=== PATIENT | female | born 1960 | race Caucasian/White ===

== ENCOUNTER 2016-11-22 15:49 | Emergency (ER) | payer MEDICARE, OTHER ==
[~2016-11-22] VITALS: Ht 170.2 cm; Wt 95.3 kg
[~2016-11-22 15:49] MED LIST: ACYC200C PO; ALPR0.5T7 PO; BUPR150T14 PO; CYCL10TA9 PO; DICL75TA2 PO; DICY20TA10 PO; FLUO20CA42 PO; HTN MED; HYDR-2962 PO; HYDR-3820 PO; HYDR-3857 PO; LEVO750T9 PO; LISI10TA PO; METO10TA3 PO; MTF500T PO; OMEP20CA12 PO; PRD20T PO; PREG75CA PO; RANI150T11 PO; RT-ALBUINH IH; SIMV40TA4 PO; SUMA25TA3; TRAM50TA2 PO; XANAX
--- NOTE | 2016-11-22 16:36 | ED Back Pain ---
General Chief Complaint: Back Problems Stated Complaint: BACK PAIN Nursing Triage Note: States she has chronic back issues for the last 30 years and is on disabilty for it. States her back "went out" 5 days ago and has severe pain. States she has tried to ice it and take icy hot. States her dr won't do anything. Sobbing and crying out Nursing Sepsis Screen: No Definite Risk Source of Information: Patient Exam Limitations: No Limitations History of Present Illness Time Seen by Provider: 16:35 Initial Comments To ER with low back pain for 4-5 days worse than usual. She is on disability for chronic low back pain. She states that she used to be on hydrocodone but started seeing a doctor in [facility] who doesn't believe in pain pills and won't give her any. She states that she saw him at the onset of this pain but it has failed to improve so she presents here. Pain does not radiate down either leg. No fever or chills. No loss of bowel or bladder control. No history of cancer. She states this began when she simply bent over to waste picker her cat Location: Lumbar Spine Timing/Duration: 1-2 Days Severity: Moderate Associated Symptoms: lower back pain Allergies and Home Medications Allergies Coded Allergies: tramadol (Unverified Allergy, Unknown, 11/22/16) Uncoded Allergies: PNEUMONIA SHOT (Allergy, Unknown, 11/22/16) Home Medications Albuterol Sulfate 8.5 Gm Hfa.aer.ad, 8.5 GM IH Q4H, #1 Prescribed by: PHILIP GILMORE on 06/23/15 1552 Alprazolam 0.5 Mg Tablet, 0.5 MG PO DAILY, #28 (Reported) Bupropion HCl 150 Mg Tablet.er, 150 MG PO BID, #60 (Reported) Diclofenac Sodium 75 Mg Tablet.dr, 75 MG PO BID, #60 (Reported) Dicyclomine HCl 20 Mg Tablet, 20 MG PO QID, #120 (Reported) Fluoxetine Hcl 20 Mg Capsule, 1 EACH PO DAILY, (Reported) Lisinopril 10 Mg Tablet, 10 MG PO DAILY, (Reported) Metformin Hcl 500 Mg Tablet, 500 MG PO DAILY, (Reported) Metoclopramide HCl 10 Mg Tablet, 10 MG PO AC, #60 (Reported) Omeprazole 20 Mg Capsule.dr, 20 MG PO DAILY, #30 (Reported) Prednisone 20 Mg Tab, 20 MG PO BID, #10 Prescribed by: GINI MULTANI on 06/13/16 1836 Pregabalin 75 Mg Capsule, 75 MG PO BID, #56 (Reported) Ranitidine HCl 150 Mg Tablet, 150 MG PO BID, #60 (Reported) Simvastatin 40 Mg Tablet, 40 MG PO DAILY, #30 (Reported) Constitutional: see HPI, diaphoresis Respiratory: no symptoms reported Cardiovascular: no symptoms reported Genitourinary: no symptoms reported Musculoskeletal: see HPI, back pain Skin: no symptoms reported Past Gyvhzyq-Joqvnl-Lulnrd Hx Patient Social History Alcohol Use: Denies Use Recreational Drug Use: No Smoking Status: Current Everyday Smoker Type Used: Cigarettes Recent Foreign Travel: No Contact w/Someone Who Travel: No Recent Infectious Disease Expo: No Recent Hopitalizations: No Immunizations Up To Date Tetanus Booster (TDap): Unknown Surgeries HX Surgeries: Yes Surgeries: Gallbladder, Hysterectomy, Orthopedic, Tonsillectomy, Tubal Ligation Respiratory Hx Respiratory Disorders: Yes Respiratory Disorders: COPD Cardiovascular Hx Cardiac Disorders: Yes Neurological Neurological Disorders: Headaches /Migraines Musculoskeletal Hx Musculoskeletal Disorders: Yes (foot surgery) Musculoskeletal Disorders: Chronic Back Pain Endocrine Hx Endocrine Disorders: Yes Endocrine Disorders: Diabetes, Non-Insulin dep Physical Exam Vital Signs Vital Sign - Last 12Hours 11/22/16 16:25 Pulse 100 Resp 20 B/P (MAP) 169/92 Pulse Ox 96 Capillary Refill : Less Than 3 Seconds General Appearance: No Apparent Distress, WD/WN, Obese HEENT: PERRL/EOMI, TMs Normal Neck: Full Range of Motion, Normal Inspection Respiratory: Normal Breath Sounds, No Accessory Muscle Use, No Respiratory Distress Gastrointestinal: Normal Bowel Sounds, Non Tender, Soft Neurologic/Psychiatric: Alert, Oriented x3 Skin: Normal Color, Warm/Dry Progress/Results/Core Measures Results/Orders My Orders Orders - PHILIP GILMORE APRN Ketorolac Injection (Toradol Injection) (11/22/16 16:45) Orphenadrine Injection (Norflex Injectio (11/22/16 16:45) Vital Signs/I&O Vital Sign - Last 12Hours 11/22/16 16:25 Pulse 100 Resp 20 B/P (MAP) 169/92 Pulse Ox 96 Blood Pressure Mean: 117 Departure Impression Impression: Primary Impression: Acute exacerbation of chronic low back pain Disposition: 01 HOME, SELF-CARE Condition: Stable Departure-Patient Inst. Decision time for Depature: 16:48 Referrals: NO,LOCAL PHYSICIAN (PCP/Family) Primary Care Physician Patient Instructions: MANAGING YOUR CHRONIC PAIN Add. Discharge Instructions: 1. Take medication as directed 2. Follow up with your regular doctor later this week 3. All discharge instructions reviewed with patient and/or family. Voiced understanding. Scripts Prednisone (Prednisone) 20 Mg Tab 40 MG PO DAILY, #8 TAB Prov: PHILIP GILMORE EMPLOYMENT AND CLAIMS AIDE 11/22/16 Cyclobenzaprine HCl (Cyclobenzaprine HCl) 5 Mg Tablet 5 MG PO TID, #21 TAB Prov: PHILIP GILMORE APRN 11/22/16 PHILIP GILMORE APRN Nov 22, 2016 16:36
[2016-11-22] MEDS: ORPHENADRINE 60 MG/2 ML (NORFLEX) AMP IM ONE (16:48)
[2016-11-22] MEDS: KETOROLAC 60 MG/2 ML VIAL IM ONE (16:48)
[2016-11-22] MEDS ORDERED: PRD20T PO (16:50)
[2016-11-22] MEDS ORDERED: CYCL5TAB PO (16:50)
[2016-11-22 17:30] VITALS: BP 95/60
== END 2016-11-22 17:30 | disposition home or self-care (01) ==
LOC: EDUNIT# 15:49 → ER 15:52
DX: M54.5 Low back pain (principal); G89.29 Other chronic pain; E11.9 Type 2 diabetes mellitus without complications; I10 Essential (primary) hypertension; J44.9 Chronic obstructive pulmonary disease, unspecified; F17.210 Nicotine dependence, cigarettes, uncomplicated; Z79.84 Long term (current) use of oral hypoglycemic drugs; Z79.899 Other long term (current) drug therapy
CPT/HCPCS: 99281

== ENCOUNTER 2016-11-25 00:48 | Observation (INO) | payer MEDICARE, OTHER ==
[~2016-11-25] VITALS: Ht 170.2 cm; Wt 90.7 kg
[~2016-11-25 00:48] MED LIST changes: +CYCL5TAB PO
[2016-11-25 01:25] LABS: ACETAMINOPHEN < 10 UG/ML (10-30); ALCOHOL < 10 MG/DL (<10); SALICYLATE < 5.0 MG/DL (5.0-20.0)
[2016-11-25] MEDS ORDERED: NALOXONE 2 MG/2 ML (NARCAN) SYR IV ONE (02:15)
[2016-11-25 02:29] LABS: BASOPHILS % (AUTO) 0 % (0-10); EOSINOPHILS % (AUTO) 0 % (0-10); LYMPHOCYTES # (AUTO) 1.4 X 10^3 (1.0-4.0); LYMPHOCYTES % (AUTO) 16 % (12-44); MEAN CORPUSCULAR HEMOGLOBIN 33 PG (25-34); MEAN CORPUSCULAR HGB CONC 33 G/DL (32-36); MEAN CORPUSCULAR VOLUME 99 FL (80-99); MEAN PLATELET VOLUME 10.6 FL (7.4-10.4); MONOCYTES # (AUTO) 0.3 X 10^3 (0.0-1.0); MONOCYTES % (AUTO) 3 % (0-12); NEUTROPHILS # (AUTO) 6.9 X 10^3 (1.8-7.8); NEUTROPHILS % (AUTO) 81 % (42-75); PLATELET COUNT 239 10^3/uL (130-400); RED BLOOD COUNT 3.31 10^6/uL (4.35-5.85); WHITE BLOOD COUNT 8.6 10^3/uL (4.3-11.0)
[2016-11-25 02:43] LABS: BILIRUBIN,URINE NEGATIVE (NEGATIVE); KETONES,URINE NEGATIVE (NEGATIVE); LEUKOCYTE ESTERASE ,URINE NEGATIVE (NEGATIVE); NITRITE,URINE NEGATIVE (NEGATIVE); PH,URINE 7 (5-9); PROTEIN,URINE NEGATIVE (NEGATIVE); UROBILINOGEN,URINE NORMAL (NORMAL)
[2016-11-25 02:44] LABS: BILIRUBIN,TOTAL 0.2 MG/DL (0.1-1.0); CALCIUM 9.3 MG/DL (8.5-10.1); CREATININE SERUM 1.01 MG/DL (0.60-1.30); POTASSIUM 4.5 MMOL/L (3.6-5.0); TOTAL PROTEIN 6.6 G/DL (6.4-8.2)
[2016-11-25 02:53] LABS: SQUAMOUS EPITHELIAL CELL,UR RARE /HPF
[2016-11-25] MEDS ORDERED: NS IV 1000 ML 1,000 ML IV ONE (02:53)
--- NOTE | 2016-11-25 04:03 | ED Neurological Problem ---
General Chief Complaint: Back Problems Stated Complaint: BACK PAIN Nursing Triage Note: PT TO ED 7 PER EMS AFTER BEING FOUND LOOKING FOR THE BATHROOM WHILE STANDING IN THE BATHTUB AT HOME IN JUST A T SHIRT. PER EMS, PTS S.O. REPORTS PT WAS "UNRESPONSIVE ET SHAKING" AT THAT TIME. WAS RECENTLY PRESCRIBED FLEXERIL ET STEROIDS FOR COMPLAINT. PT PRESENTLY HAS EYES CLOSED BUT IS ANSWERING ALL QUESTIONS APPROPRIATELY. EMS ALSO REPORTS DID FIND A RX FOR THE PTS DOG OF "TRAZADONE 50MG" THAT WAS FILLED X2WKS AGO FOR "ANXIETY R/T STORMS" THAT HAS X6 PILLS MISSING. NO OTHER C/O VOICED Nursing Sepsis Screen: No Definite Risk Source: patient, EMS, RN notes reviewed Exam Limitations: clinical condition History of Present Illness Time seen by provider: 02:14 Initial Comments Patient brought in by [facility] from home p/ apparently being found by her significant other confused. Reportedly found in bath tub c/ only a t-shirt on looking for the bathroom. Reportedly initially refusing transport here but finally agreed. Patient c/ hx of chronic back pain. Was seen here recently (11/22) for her back pain and given prednisone and flexeril. @ that time patient stated her PCP in [place] wasn't helping her and that he didn't believe in pain medication per notes from that visit. EMS reports that some of the patient's trazodone may be missing. Unknown if any other substances on board @ this time. No known recent head injury either. Timing/Duration: unknown Associated Symptoms: confusion, fatigue, sleepy Allergies and Home Medications Allergies Coded Allergies: tramadol (Unverified Allergy, Unknown, 11/22/16) Uncoded Allergies: PNEUMONIA SHOT (Allergy, Unknown, 11/22/16) Home Medications Albuterol Sulfate 8.5 Gm Hfa.aer.ad, 8.5 GM IH Q4H, #1 Prescribed by: PHILIP GILMORE on 06/23/15 1552 Alprazolam 0.5 Mg Tablet, 0.5 MG PO DAILY, #28 (Reported) Bupropion HCl 150 Mg Tablet.er, 150 MG PO BID, #60 (Reported) Cyclobenzaprine HCl 5 Mg Tablet, 5 MG PO TID, #21 Prescribed by: PHILIP GILMORE on 11/22/16 1650 Diclofenac Sodium 75 Mg Tablet.dr, 75 MG PO BID, #60 (Reported) Dicyclomine HCl 20 Mg Tablet, 20 MG PO QID, #120 (Reported) Fluoxetine Hcl 20 Mg Capsule, 1 EACH PO DAILY, (Reported) Lisinopril 10 Mg Tablet, 10 MG PO DAILY, (Reported) Metformin Hcl 500 Mg Tablet, 500 MG PO DAILY, (Reported) Metoclopramide HCl 10 Mg Tablet, 10 MG PO AC, #60 (Reported) Omeprazole 20 Mg Capsule.dr, 20 MG PO DAILY, #30 (Reported) Prednisone 20 Mg Tab, 20 MG PO BID, #10 Prescribed by: GINI MULTANI on 06/13/16 1836 Prednisone 20 Mg Tab, 40 MG PO DAILY, #8 Prescribed by: PHILIP GILMORE on 11/22/16 1650 Pregabalin 75 Mg Capsule, 75 MG PO BID, #56 (Reported) Ranitidine HCl 150 Mg Tablet, 150 MG PO BID, #60 (Reported) Simvastatin 40 Mg Tablet, 40 MG PO DAILY, #30 (Reported) Constitutional: other (unable to obtain secondary to patient's somnolence) Past Oijakdb-Dsgpso-Iabbzn Hx Patient Social History Alcohol Use: Denies Use Recreational Drug Use: No Smoking Status: Current Everyday Smoker Type Used: Cigarettes Recent Foreign Travel: No Contact w/Someone Who Travel: No Recent Infectious Disease Expo: No Recent Hopitalizations: No Immunizations Up To Date Tetanus Booster (TDap): Unknown Surgeries HX Surgeries: Yes Surgeries: Gallbladder, Hysterectomy, Orthopedic, Tonsillectomy, Tubal Ligation Respiratory Hx Respiratory Disorders: Yes Respiratory Disorders: COPD Cardiovascular Hx Cardiac Disorders: Yes Neurological Neurological Disorders: Headaches /Migraines Musculoskeletal Hx Musculoskeletal Disorders: Yes (foot surgery) Musculoskeletal Disorders: Chronic Back Pain Endocrine Hx Endocrine Disorders: Yes Endocrine Disorders: Diabetes, Non-Insulin dep Physical Exam Vital Signs Vital Sign - Last 12Hours 11/25/16 00:48 Temp 97.8 Pulse 78 Resp 16 B/P (MAP) 137/83 Pulse Ox 97 O2 Delivery Room Air Capillary Refill : Less Than 3 Seconds General Appearance: WD/WN, no apparent distress, obese HEENT: other (PERRL but a little sluggish) Neck: supple Respiratory: no respiratory distress Cardiovascular: regular rate, rhythm Gastrointestinal: non tender, soft Neurologic/Psychiatric: other (good gag reflex. Very somnolent but arouses to painful stimuli and moves all 4 extremity.) Crainal Nerves: No abnormal eye position, No abnormal gag reflex, No abnormal pupil position Skin: warm/dry, No rash Progress/Results/Core Measures Results/Orders Lab Results Laboratory Tests Test 11/25/16 00:55 11/25/16 01:15 Range/Units White Blood Count 8.6 4.3-11.0 10^3/uL Red Blood Count 3.31 L 4.35-5.85 10^6/uL Hemoglobin 10.9 L 11.5-16.0 G/DL Hematocrit 33 L 35-52 % Mean Corpuscular Volume 99 80-99 FL Mean Corpuscular Hemoglobin 33 25-34 PG Mean Corpuscular Hemoglobin Concent 33 32-36 G/DL Red Cell Distribution Width 13.0 10.0-14.5 % Platelet Count 239 130-400 10^3/uL Mean Platelet Volume 10.6 H 7.4-10.4 FL Neutrophils (%) (Auto) 81 H 42-75 % Lymphocytes (%) (Auto) 16 12-44 % Monocytes (%) (Auto) 3 0-12 % Eosinophils (%) (Auto) 0 0-10 % Basophils (%) (Auto) 0 0-10 % Neutrophils # (Auto) 6.9 1.8-7.8 X 10^3 Lymphocytes # (Auto) 1.4 1.0-4.0 X 10^3 Monocytes # (Auto) 0.3 0.0-1.0 X 10^3 Eosinophils # (Auto) 0.0 0.0-0.3 10^3/uL Basophils # (Auto) 0.0 0.0-0.1 10^3/uL Sodium Level 139 135-145 MMOL/L Potassium Level 4.5 3.6-5.0 MMOL/L Chloride Level 111 H 98-107 MMOL/L Carbon Dioxide Level 17 L 21-32 MMOL/L Anion Gap 11 5-14 MMOL/L Blood Urea Nitrogen 19 H 7-18 MG/DL Creatinine 1.01 0.60-1.30 MG/DL Estimat Glomerular Filtration Rate 57 BUN/Creatinine Ratio 19 Glucose Level 261 H 70-105 MG/DL Calcium Level 9.3 8.5-10.1 MG/DL Total Bilirubin 0.2 0.1-1.0 MG/DL Aspartate Amino Transf (AST/SGOT) 12 5-34 U/L Alanine Aminotransferase (ALT/SGPT) 17 0-55 U/L Alkaline Phosphatase 73 40-136 U/L Total Protein 6.6 6.4-8.2 G/DL Albumin 4.0 3.2-4.5 G/DL Salicylates Level < 5.0 L 5.0-20.0 MG/DL Acetaminophen Level < 10 L 10-30 UG/ML Serum Alcohol < 10 <10 MG/DL Urine Color YELLOW Urine Clarity CLEAR Urine pH 7 5-9 Urine Specific [place] 1.005 L 1.016-1.022 Urine Protein NEGATIVE NEGATIVE Urine Glucose (UA) NEGATIVE NEGATIVE Urine Ketones NEGATIVE NEGATIVE Urine Nitrite NEGATIVE NEGATIVE Urine Bilirubin NEGATIVE NEGATIVE Urine Urobilinogen NORMAL NORMAL MG/DL Urine Leukocyte Esterase NEGATIVE NEGATIVE Urine RBC (Auto) NEGATIVE NEGATIVE Urine RBC NONE /HPF Urine WBC NONE /HPF Urine Squamous Epithelial Cells RARE /HPF Urine Crystals NONE /LPF Urine Bacteria NEGATIVE /HPF Urine Casts NONE /LPF Urine Mucus NEGATIVE /LPF Urine Culture Indicated NO Urine Opiates Screen POSITIVE H NEGATIVE Urine Oxycodone Screen NEGATIVE NEGATIVE Urine Methadone Screen NEGATIVE NEGATIVE Urine Propoxyphene Screen NEGATIVE NEGATIVE Urine Barbiturates Screen NEGATIVE NEGATIVE Ur Tricyclic Antidepressants Screen NEGATIVE NEGATIVE Urine Phencyclidine Screen NEGATIVE NEGATIVE Urine Amphetamines Screen NEGATIVE NEGATIVE Urine Methamphetamines Screen NEGATIVE NEGATIVE Urine Benzodiazepines Screen NEGATIVE NEGATIVE Urine Cocaine Screen NEGATIVE NEGATIVE Urine Cannabinoids Screen NEGATIVE NEGATIVE My Orders Orders - PARIS CONTRERAS DO Acetaminophen (11/25/16 01:07) Alcohol (11/25/16 01:07) Drug Screen Stat (Urine) (11/25/16 01:07) Salicylate (11/25/16 01:07) Naloxone Injection (Narcan Injection) (11/25/16 02:15) Ct Head Wo (11/25/16 02:23) Cbc With Automated Diff (11/25/16 02:23) Comprehensive Metabolic Panel (11/25/16 02:23) Ua Culture If Indicated (11/25/16 02:23) Ns Iv 1000 Ml (Sodium Chloride 0.9%) (11/25/16 02:53) Medications Given in ED Current Medications Medications Dose Ordered Sig/Raquel Route Start Time Stop Time Status Last Admin Dose Admin Naloxone HCl 2 mg ONCE ONCE IV 11/25/16 02:15 11/25/16 02:16 DC 11/25/16 02:19 2 MG Sodium Chloride 1,000 ml @ 0 mls/hr Q0M ONCE IV 11/25/16 02:53 11/25/16 03:34 DC 11/25/16 03:08 1,000 MLS/HR Vital Signs/I&O Vital Sign - Last 12Hours 11/25/16 00:48 Temp 97.8 Pulse 78 Resp 16 B/P (MAP) 137/83 Pulse Ox 97 O2 Delivery Room Air Blood Pressure Mean: 101 Progress Note : Progress Note Did give the patient a dose of Narcan 2mg IVP and c/ verbal stimuli she did wake up and say she was in pain. Denied the use of any narcotics. Knew that she was in the hospital but couldn't tell us the day, date, month, or year. Diagnostic Imaging Diagonstic Imaging: CT Plain Films/CT/US/NM/MRI: head Reviewed: Reviewed Night Hawk Study (nothing acute) Departure Communication Time/Spoke to Admitting Phy: 03:40 Impression Impression: Primary Impression: Hypersomnolence Additional Impressions: Suspected narcotic misuse Known hx of chronic back pain Disposition: ADMITTED INPATIENT Condition: Stable Decision to Admit Reason: Admit from ER (General) Decision to Admit/Date: Nov 25, 2016 Time/Decision to Admit Time: 03:40 Departure-Patient Inst. Referrals: NO,LOCAL PHYSICIAN (PCP/Family) Primary Care Physician PARIS CONTRERAS DO Nov 25, 2016 04:03
[2016-11-25 04:30] VITALS: BP 141/82
[2016-11-25] MEDS ORDERED: NS IV 1000 ML 1,000 ML IV SCH (05:45)
--- NOTE | 2016-11-25 06:36 | Diagnostic Imaging Report ---
PROCEDURE: CT head without contrast. TECHNIQUE: Multiple contiguous axial images were obtained through the brain without the use of intravenous contrast. INDICATION: Acute mental status changes. FINDINGS: The ventricles and sulci are within normal limits. There is no hydrocephalus or cerebral edema. There is no midline shift or mass effect. There is no intracranial mass, hemorrhage, or extra-axial fluid collection. The visualized paranasal sinuses and mastoid air cells are clear. There are no regional areas of decreased attenuation appreciated to suggest an acute CVA. IMPRESSION: No acute intracranial abnormality. Dictated by: Dictated on workstation # [id number]
[2016-11-25 08:00] VITALS: BP 105/71
--- NOTE | 2016-11-25 10:20 | History & Physical-Hospitalist ---
HPI History of Present Illness: HPI/Chief Complaint this is a 56-year-old white female who is brought to the emergency room by ambulance from [place] after being found disoriented and in her bathtub without wearing any clothes. This morning she was sound asleep and after I'll awakened her she was confused to repeated herself multiple times but finally awakened the fact where he got a fairly reliable history. her son then came and we reviewed all of her medications which appears that she had been overmedicated. She denies having any drug abuse or pain medication problems. She has chronic back pain for which she has been in the pain clinic in the past but was fired after she had been to the emergency room and ended up taking Ultram in addition to her prescription medications from the [facility]ading [facility].at this time her neurologic exam is unremarkable and she is back to her baseline per her son's assessment. He is agreeable to going home but would like to find a new physician. She had been seen in the emergency room here on Saturday and prescribed Flexeril that with her dicyclomine and other medications most likely she had drug interactions and her disorientation was because of overmedication. Source: patient, family Date Seen 11/25/16 Attending Physician Kyara Ware MD PCP Dr. Peck Referring Physician Date of Admission Nov 25, 2016 at 03:50 Home Medications & Allergies Home Medications Reviewed patient Home Medication Reconciliation Form Allergies Allergies Coded Allergies tramadol (Unverified Allergy, Unknown, 11/22/16) Uncoded Allergies PNEUMONIA SHOT ( Allergy, Unknown, 11/22/16) Past Yyzdfik-Jyojml-Oqwizw Hx Patient Social History Marrital Status: single, cohabiting Employed/Student: unemployed Alcohol Use: Denies Use Recreational Drug Use: No Smoking Status: Current Everyday Smoker Type Used: Cigarettes Physical Abuse Screen: No Sexual Abuse: No Recent Foreign Travel: No Contact w/other who traveled: No Recent Hopitalizations: No Recent Infectious Disease Expo: No Immunizations Up To Date Tetanus Booster (TDap): Unknown Seasonal Allergies Seasonal Allergies: No Surgeries HX Surgeries: Yes Surgeries: Gallbladder, Hysterectomy, Orthopedic, Tonsillectomy, Tubal Ligation Respiratory Hx Respiratory Disorders: Yes Respiratory Disorders: COPD Cardiovascular Hx Cardiovascular Disorders: Yes Cardiac Disorders: High Cholesterol, Hypertension Neurological Neurological Disorders: Headaches /Migraines Gastrointestinal Hx Gastrointestinal Disorders: Yes Gastrointestinal Disorders: Gastroesophageal Reflux Musculoskeletal Hx Musculoskeletal Disorders: Yes (foot surgery) Musculoskeletal Disorders: Chronic Back Pain Endocrine Hx Endocrine Disorders: Yes Endocrine Disorders: Diabetes, Non-Insulin dep HEENT HX ENT Disorders: Yes (edentulous) Cancer Hx Cancer: No Psychosocial Behavioral Health Disorders: Anxiety, Depression Review of Systems Constitutional: see HPI, weakness EENTM: other (excessive mouth movement) Respiratory: dyspnea on exertion Cardiovascular: no symptoms reported Gastrointestinal: abdominal pain, diarrhea, heartburn Genitourinary: incontinence (stress) Musculoskeletal: back pain, joint pain Skin: no symptoms reported Psychiatric/Neurological: Anxiety Physical Exam Physical Exam Vital Signs Vital Sign - Last 12Hours 11/25/16 00:48 Temp 97.8 Pulse 78 Resp 16 B/P (MAP) 137/83 Pulse Ox 97 O2 Delivery Room Air Capillary Refill : Less Than 3 Seconds General Appearance: Obese, Other (uncapped edentulous with tar dive movements of the mouth) HEENT: Normal ENT Inspection Neck: Non Tender, Supple Respiratory: Lungs Clear, Normal Breath Sounds, No Accessory Muscle Use, No Respiratory Distress Cardiovascular: Regular Rate, Rhythm, No Gallop, No Murmur Gastrointestinal: Normal Bowel Sounds, Non Tender, Soft Rectal: Deferred Back: Normal Inspection Extremity: Normal Capillary Refill, Non Tender, No Calf Tenderness Neurologic/Psychiatric: Alert, Depressed Affect, Other (the patient repeats herself often and took quite a while to orient) Skin: Normal Color, Warm/Dry Results Results/Procedures Lab Laboratory Tests 11/25/16 00:55 Assessment/Plan Admission Diagnosis 1. iatrogenic medication overdose with hypersomnolence and mental status changes currently cleared after holding medications and hydration 2. Chronic back pain 3. Tardive dyskinesia 4.chronic abdominal pain 5. Type II diabetes on metformin 6. Depression and anxiety 7. Hypertension Plan I reviewed her medication list extensively with her son and will adjust medication so as not to interact and simplify and encouraged her to seek alternative modalities to deal with her chronic back pain. She'll be discharged today with follow-up with Dr. Peck in [place] and recommendations for other physicians for chronic pain management Clinical Quality Measures DVT/VTE Risk/Contraindication: Risk Factor Score Per Nursin RFS Level Per Nursing on Admit: 3=High KYARA WARE MD Nov 25, 2016 10:20
--- NOTE | 2016-11-25 10:42 | Discharge Summary-Hospitalist ---
Diagnosis/Chief Complaint Date of Admission Nov 25, 2016 at 03:50 Date of Discharge November 25, 2016 at 12 noon Discharge Date: Nov 25, 2016 Discharge Time: 12:00 Admission Diagnosis 1. iatrogenic medication overdose with hypersomnolence and mental status changes currently cleared after holding medications and hydration 2. Chronic back pain 3. Tardive dyskinesia 4.chronic abdominal pain 5. Type II diabetes on metformin 6. Depression and anxiety 7. Hypertension Plan I reviewed her medication list extensively with her son and will adjust medication so as not to interact and simplify and encouraged her to seek alternative modalities to deal with her chronic back pain. She'll be discharged today with follow-up with Dr. Peck in [place] and recommendations for other physicians for chronic pain management Discharge Diagnosis 1. hypersomnolence secondary to iatrogenic medication overdose 2. Chronic back pain 3. Tardive dyskinesia 4. Type II diabetes 5. Chronic abdominal pain Reason Hospital Visit/Course this is a 56-year-old white female who is brought to the emergency room by ambulance from [place] after being found disoriented and in her bathtub without wearing any clothes. This morning she was sound asleep and after I'll awakened her she was confused to repeated herself multiple times but finally awakened the fact where he got a fairly reliable history. her son then came and we reviewed all of her medications which appears that she had been overmedicated. She denies having any drug abuse or pain medication problems. 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 He is agreeable to going home but would like to find a new physician. She had been seen in the emergency room here on Saturday and prescribed Flexeril that with her dicyclomine and other medications most likely she had drug interactions and her disorientation was because of overmedication. Discharge Summary Procedures CT head Consultations none Discharge Physical Examination Allergies: Coded Allergies: tramadol (Unverified Allergy, Unknown, 11/22/16) Uncoded Allergies: PNEUMONIA SHOT (Allergy, Unknown, 11/22/16) Vitals & I&Os Vital Signs Date Time Temp Pulse Resp B/P (MAP) Pulse Ox O2 Delivery O2 Flow Rate FiO2 11/25/16 08:00 96.5 79 16 105/71 96 11/25/16 00:48 Room Air General Appearance: Alert Respiratory: Clear to Auscultation Cardiovascular: Regular Rate Abdominal: Normal Bowel Sounds, Soft Extremities: No Edema Skin: No Rashes Neuro: Strength at 5/5 X4 Ext Psych/Mental Status: Other (forgetful but alert and oriented 3) Hospital Course patient was admitted overnight and aggressively hydrated. Her medications were held and this morning after waking up and becoming oriented she is back to her baseline. She was discharged in the care of her son who sets up her medications all of her medications were reviewed and it was requested that she simplify her medications. she is encouraged to use other modalities for her chronic back pain other than medications. she is being discharged home with follow-up [facility] Peck. She is improved and back to her baseline. Labs (last 24 hrs) Laboratory Tests 11/25/16 00:55: White Blood Count 8.6, Red Blood Count 3.31L, Hemoglobin 10.9L, Hematocrit 33L, Mean Corpuscular Volume 99, Mean Corpuscular Hemoglobin 33, Mean Corpuscular Hemoglobin Concent 33, Red Cell Distribution Width 13.0, Platelet Count 239, Mean Platelet Volume 10.6H, Neutrophils (%) (Auto) 81H, Lymphocytes (%) (Auto) 16, Monocytes (%) (Auto) 3, Eosinophils (%) (Auto) 0, Basophils (%) (Auto) 0, Neutrophils # (Auto) 6.9, Lymphocytes # (Auto) 1.4, Monocytes # (Auto) 0.3, Eosinophils # (Auto) 0.0, Basophils # (Auto) 0.0, Sodium Level 139, Potassium Level 4.5, Chloride Level 111H, Carbon Dioxide Level 17L, Anion Gap 11, Blood Urea Nitrogen 19H, Creatinine 1.01, Estimat Glomerular Filtration Rate 57, BUN/ Creatinine Ratio 19, Glucose Level 261H, Calcium Level 9.3, Total Bilirubin 0.2 , Aspartate Amino Transf (AST/SGOT) 12, Alanine Aminotransferase (ALT/SGPT) 17, Alkaline Phosphatase 73, Total Protein 6.6, Albumin 4.0, Salicylates Level < 5.0L, Acetaminophen Level < 10L, Serum Alcohol < 10 11/25/16 01:15: Urine Color YELLOW, Urine Clarity CLEAR, Urine pH 7, Urine Specific [place] 1.005L, Urine Protein NEGATIVE, Urine Glucose (UA) NEGATIVE, Urine Ketones NEGATIVE, Urine Nitrite NEGATIVE, Urine Bilirubin NEGATIVE, Urine Urobilinogen NORMAL, Urine Leukocyte Esterase NEGATIVE, Urine RBC (Auto) NEGATIVE, Urine RBC NONE, Urine WBC NONE, Urine Squamous Epithelial Cells RARE, Urine Crystals NONE , Urine Bacteria NEGATIVE, Urine Casts NONE, Urine Mucus NEGATIVE, Urine Culture Indicated NO, Urine Opiates Screen POSITIVEH, Urine Oxycodone Screen NEGATIVE, Urine Methadone Screen NEGATIVE, Urine Propoxyphene Screen NEGATIVE, Urine Barbiturates Screen NEGATIVE, Ur Tricyclic Antidepressants Screen NEGATIVE , Urine Phencyclidine Screen NEGATIVE, Urine Amphetamines Screen NEGATIVE, Urine Methamphetamines Screen NEGATIVE, Urine Benzodiazepines Screen NEGATIVE, Urine Cocaine Screen NEGATIVE, Urine Cannabinoids Screen NEGATIVE Discharge Home Medications: Active Scripts Active Proair Hfa (Albuterol Sulfate) 8.5 Gm Hfa.aer.ad 8.5 Gm IH Q4H Reported Alprazolam 0.5 Mg Tablet 0.5 Mg PO DAILY Simvastatin 40 Mg Tablet 40 Mg PO DAILY Lyrica (Pregabalin) 75 Mg Capsule 75 Mg PO BID Bupropion HCl Sr (Bupropion HCl) 150 Mg Tablet.er 150 Mg PO BID Ranitidine HCl 150 Mg Tablet 150 Mg PO BID Diclofenac Sodium 75 Mg Tablet.dr 75 Mg PO BID Prozac (Fluoxetine HCl) 20 Mg Capsule 1 Each PO DAILY Prinivil (Lisinopril) 10 Mg Tablet 10 Mg PO DAILY Instructions to patient/family Please see electonic discharge instructions given to patient. Clinical Quality Measures DVT/VTE Risk/Contraindication: Risk Factor Score Per Nursin RFS Level Per Nursing on Admit: 3=High CODY WARE MD Nov 25, 2016 10:42
== END 2016-11-25 10:31 | disposition home or self-care (01) ==
LOC: EDUNIT# 00:48 → ER 00:49 → UNDOADMOB 03:50 → 4TH 03:50 → UNDODISOB 11:40 → ENPENDDIS 12:00
PROVIDERS: ADMIT Internal Medicine; ATTEND Internal Medicine
DX: T48.1X1A Poisoning by skeletal muscle relaxants [neuromuscular blocking agents], accidental (unintentional), initial encounter (principal); T44.3X1A Poisoning by other parasympatholytics [anticholinergics and antimuscarinics] and spasmolytics, accidental (unintentional), initial encounter; R41.82 Altered mental status, unspecified; F19.982 Other psychoactive substance use, unspecified with psychoactive substance-induced sleep disorder; G24.01 Drug induced subacute dyskinesia; M54.5 Low back pain; R10.84 Generalized abdominal pain; G89.29 Other chronic pain; E11.9 Type 2 diabetes mellitus without complications; I10 Essential (primary) hypertension; J44.9 Chronic obstructive pulmonary disease, unspecified; F33.9 Major depressive disorder, recurrent, unspecified; F41.9 Anxiety disorder, unspecified; F17.210 Nicotine dependence, cigarettes, uncomplicated; Z79.84 Long term (current) use of oral hypoglycemic drugs; Z79.899 Other long term (current) drug therapy
CPT/HCPCS: 36415; 70450; 80053; 80306; 80320; 80329; 81000; 85025; 99211; 99285; G0378

== ENCOUNTER → 2016-12-13 | Outpatient (CLI) | payer MEDICARE, MEDICAID | DX: M47.816 Spondylosis without myelopathy or radiculopathy, lumbar region (principal) ==

== ENCOUNTER 2016-12-31 13:43 | Outpatient (RCR) | payer MEDICARE | END 2017-01-07 11:09 | disposition home or self-care (01) | PROVIDERS: ATTEND Orthopaedic Surgery | DX: M54.16 Radiculopathy, lumbar region (principal) ==

== ENCOUNTER 2017-02-04 16:54 | Emergency (ER) | payer MEDICARE, MEDICAID ==
[~2017-02-04] VITALS: Ht 172.7 cm; Wt 95.3 kg
--- NOTE | 2017-02-04 17:33 | ED Lower Extremity ---
General Chief Complaint: Lower Extremity Stated Complaint: LT LEG SWELLING POST BACK SURG 01/28 Source: patient, family History of Present Illness Time seen by provider: 17:20 Initial Comments PT ARRIVES VIA POV FROM HOME--AMBULATES INTO ER ON HER OWN PT HAD BACK SURGERY BY DR. SHARPE ON 01/28/17 PT HAS HAD PAIN AND SWELLING TO LEFT THIGH SINCE 01/29/17 PT STATES IT WAS REALLY SWOLLEN YESTERDAY AND THE DAY BEFORE, NOT BAD TODAY STATES PAIN IS WORSE WITH ANY MOVEMENT OF LEFT LEG NO PARESTHESIAS OR MOTOR DEFICITS NO BOWEL OR BLADDER FUNCTION ABNORMALITIES NO CHEST PAIN, SHORTNESS OF BREATH OR PALPITATIONS TOOK 1 OXYCODONE AT 0700, 1100, 1430, AND TOOK 1 BACLOFEN PRIOR TO ARRIVAL HAS NOT SOUGHT CARE UNTIL TODAY, AND IS NO DIFFERENT TODAY PCP: CHERRY SORTER IN [place], NEHAL MAX ORTHO SURGEON--DR. SHARPE/ ORTHO 4 STATES Allergies and Home Medications Allergies Coded Allergies: tramadol (Unverified Allergy, Unknown, 11/22/16) Uncoded Allergies: PNEUMONIA SHOT (Allergy, Unknown, 11/22/16) Home Medications Albuterol Sulfate 8.5 Gm Hfa.aer.ad, 8.5 GM IH Q4H, #1 Prescribed by: PHILIP GILMORE on 06/23/15 1552 Alprazolam 0.5 Mg Tablet, 0.5 MG PO DAILY, #28 (Reported) Bupropion HCl 150 Mg Tablet.er, 150 MG PO BID, #60 (Reported) Diclofenac Sodium 75 Mg Tablet.dr, 75 MG PO BID, #60 (Reported) Fluoxetine Hcl 20 Mg Capsule, 1 EACH PO DAILY, (Reported) Lisinopril 10 Mg Tablet, 10 MG PO DAILY, (Reported) Pregabalin 75 Mg Capsule, 75 MG PO BID, #56 (Reported) Ranitidine HCl 150 Mg Tablet, 150 MG PO BID, #60 (Reported) Simvastatin 40 Mg Tablet, 40 MG PO DAILY, #30 (Reported) Constitutional: no symptoms reported Respiratory: no symptoms reported, No dyspnea on exertion, No short of breath Cardiovascular: no symptoms reported, No chest pain Gastrointestinal: no symptoms reported Genitourinary: no symptoms reported Musculoskeletal: see HPI Skin: no symptoms reported Psychiatric/Neurological: No Symptoms Reported Past Cysrakx-Iuggks-Ibgpdb Hx Patient Social History Alcohol Use: Denies Use Recreational Drug Use: No Smoking Status: Current Everyday Smoker Type Used: Cigarettes Recent Foreign Travel: No Contact w/Someone Who Travel: No Recent Hopitalizations: No Immunizations Up To Date Tetanus Booster (TDap): Unknown Seasonal Allergies Seasonal Allergies: No Surgeries HX Surgeries: Yes (BACK SURGERY; FOOT SURGERY) Surgeries: Gallbladder, Hysterectomy, Orthopedic, Tonsillectomy, Tubal Ligation Respiratory Hx Respiratory Disorders: Yes Respiratory Disorders: COPD Cardiovascular Hx Cardiac Disorders: Yes Cardiac Disorders: High Cholesterol, Hypertension Neurological Hx Neurological Disorders: Yes Neurological Disorders: Headaches /Migraines Genitourinary Hx Genitourinary Disorders: No Gastrointestinal Hx Gastrointestinal Disorders: Yes Gastrointestinal Disorders: Gastroesophageal Reflux Musculoskeletal Hx Musculoskeletal Disorders: Yes (foot surgery) Musculoskeletal Disorders: Chronic Back Pain Endocrine Hx Endocrine Disorders: Yes Endocrine Disorders: Diabetes, Non-Insulin dep HEENT HX ENT Disorders: Yes (edentulous) Cancer Hx Cancer: No Psychosocial Hx Psychiatric Problems: Yes Behavioral Health Disorders: Anxiety, Depression Integumentary HX Skin/Integumentary Disorder: No Blood Transfusions Hx Blood Disorders: No Physical Exam Vital Signs Vital Sign - Last 12Hours 02/04/17 17:20 Temp 97.2 Pulse 102 Resp 18 B/P (MAP) 113/63 Pulse Ox 97 Capillary Refill : General Appearance: WD/WN, no apparent distress, other (WEARING BACK BRACE. AMBULATES WITHOUT DIFFICULTY) Cardiovascular: normal peripheral pulses (+3/4 BILATERALLY), regular rate, rhythm, no murmur Respiratory: normal breath sounds, no respiratory distress, no accessory muscle use Legs: right leg non-tender, right leg normal inspection, right leg normal range of motion, right leg no evidence of injury, left leg other (MODERATE SWELLING TO LEFT THIGH, WITH MODERATE TENDERNESS. NO DISCOLORATION. LIMITED ROM DUE TO PAIN AT KNEE AND HIP. DORSIFLEXION OF LEFT FOOT, CAUSES SEVERE PAIN IN LEFT THIGH. DISTAL MOTOR/SENSORY/VASCULAR INTACT. NO DISCOLORATION OF LEG OR FOOT. NO WARMTH, ERYTHEMA OR BRUISING. ) Knees: bilateral knee normal inspection Ankles: bilateral ankle normal inspection Feet: bilateral foot normal inspection Neurologic/Tendon: normal sensation, normal motor functions, normal tendon functions Neurologic/Psychiatric: ct scan special procedures technologist II-XII nml as tested, no motor/sensory deficits, alert, normal mood/affect, oriented x 3 Skin: normal color, warm/dry Progress/Results/Core Measures Results/Orders Lab Results Laboratory Tests Test 02/04/17 17:35 Range/Units White Blood Count 8.8 4.3-11.0 10^3/uL Red Blood Count 2.95 L 4.35-5.85 10^6/uL Hemoglobin 9.7 L 11.5-16.0 G/DL Hematocrit 29 L 35-52 % Mean Corpuscular Volume 100 H 80-99 FL Mean Corpuscular Hemoglobin 33 25-34 PG Mean Corpuscular Hemoglobin Concent 33 32-36 G/DL Red Cell Distribution Width 13.1 10.0-14.5 % Platelet Count 372 130-400 10^3/uL Mean Platelet Volume 9.3 7.4-10.4 FL Neutrophils (%) (Auto) 57 42-75 % Lymphocytes (%) (Auto) 35 12-44 % Monocytes (%) (Auto) 7 0-12 % Eosinophils (%) (Auto) 2 0-10 % Basophils (%) (Auto) 0 0-10 % Neutrophils # (Auto) 5.0 1.8-7.8 X 10^3 Lymphocytes # (Auto) 3.0 1.0-4.0 X 10^3 Monocytes # (Auto) 0.6 0.0-1.0 X 10^3 Eosinophils # (Auto) 0.2 0.0-0.3 10^3/uL Basophils # (Auto) 0.0 0.0-0.1 10^3/uL Prothrombin Time 13.2 12.2-14.7 SEC INR Comment 1.0 0.8-1.4 Activated Partial Thromboplast Time 33 24-35 SEC Sodium Level 137 135-145 MMOL/L Potassium Level 4.1 3.6-5.0 MMOL/L Chloride Level 102 98-107 MMOL/L Carbon Dioxide Level 22 21-32 MMOL/L Anion Gap 13 5-14 MMOL/L Blood Urea Nitrogen 11 7-18 MG/DL Creatinine 0.72 0.60-1.30 MG/DL Estimat Glomerular Filtration Rate > 60 BUN/Creatinine Ratio 15 Glucose Level 104 70-105 MG/DL Calcium Level 9.4 8.5-10.1 MG/DL Total Bilirubin 0.4 0.1-1.0 MG/DL Aspartate Amino Transf (AST/SGOT) 17 5-34 U/L Alanine Aminotransferase (ALT/SGPT) 18 0-55 U/L Alkaline Phosphatase 114 40-136 U/L Total Protein 6.5 6.4-8.2 GM/DL Albumin 3.7 3.2-4.5 GM/DL My Orders Orders - SRUTHI SCHUMACHER DO Saline Lock/Iv-Start (02/04/17 17:26) BNP (02/04/17 17:26) Cbc With Automated Diff (02/04/17 17:26) Comprehensive Metabolic Panel (02/04/17 17:26) Protime With Inr (02/04/17 17:) Partial Thromboplastin Time (02/04/17 17:26) Us Venous Lower Ext Lt (02/04/17 17:26) Vital Signs/I&O Vital Sign - Last 12Hours 02/04/17 17:20 Temp 97.2 Pulse 102 Resp 18 B/P (MAP) 113/63 Pulse Ox 97 Diagnostic Imaging Comments VENOUS DOPPLER LEFT LEG--NO DVT PER RADIOLOGIST REPORT @ 1810 Reviewed: Reviewed by Me Departure Impression Impression: Primary Impression: LEFT LEG POST OP PAIN AND SWELLING Additional Impression: S/P BACK SURGERY Disposition: 01 HOME, SELF-CARE Condition: Stable Departure-Patient Inst. Referrals: NO,LOCAL PHYSICIAN (PCP) Primary Care Physician NEHAL MAX APRN (Family) Primary Care Physician PAMELA SHARPE DO Patient Instructions: Postoperative Pain (DC), Swelling Add. Discharge Instructions: CONTINUE YOUR REGULAR MEDICATIONS PRESCRIBED FOLLOW UP WITH YOUR SURGEON THIS WEEK FOR FURTHER CARE All discharge instructions reviewed with patient and/or family. Voiced understanding. SRUTHI SCHUMACHER DO Feb 04, 2017 17:33
[2017-02-04 17:47] LABS: BASOPHILS % (AUTO) 0 % (0-10); EOSINOPHILS # (AUTO) 0.2 10^3/uL (0.0-0.3); EOSINOPHILS % (AUTO) 2 % (0-10); LYMPHOCYTES % (AUTO) 35 % (12-44); MEAN CORPUSCULAR HEMOGLOBIN 33 PG (25-34); MEAN CORPUSCULAR HGB CONC 33 G/DL (32-36); MEAN CORPUSCULAR VOLUME 100 FL (80-99); MEAN PLATELET VOLUME 9.3 FL (7.4-10.4); MONOCYTES # (AUTO) 0.6 X 10^3 (0.0-1.0); MONOCYTES % (AUTO) 7 % (0-12); NEUTROPHILS % (AUTO) 57 % (42-75); PLATELET COUNT 372 10^3/uL (130-400); RED BLOOD COUNT 2.95 10^6/uL (4.35-5.85); RED CELL DISTRIBUTION WIDTH 13.1 % (10.0-14.5); WHITE BLOOD COUNT 8.8 10^3/uL (4.3-11.0)
[2017-02-04 18:01] LABS: PROTHROMBIN TIME PATIENT 13.2 SEC (12.2-14.7)
--- NOTE | 2017-02-04 18:06 | Diagnostic Imaging Report ---
PROCEDURE: US left lower extremity venous. TECHNIQUE: Multiple real-time grayscale images were obtained over the left lower extremity in various projections. Additional duplex Doppler and color Doppler images were also obtained. INDICATION: Left leg edema. Status post back surgery. COMPARISON: None. FINDINGS: The left common femoral vein, superficial femoral vein, profunda femoris, and popliteal veins are normal. These vessels show normal compressibility, color flow, and doppler augmentation. The deep calf veins, although not very well seen, demonstrate no distinct intraluminal thrombus. IMPRESSION: Negative venous Doppler of the left lower extremity. Dictated by: Dictated on workstation # [id number]
[2017-02-04 18:11] LABS: ALANINE AMINOTRANSFERASE 18 U/L (0-55); ALBUMIN 3.7 GM/DL (3.2-4.5); ANION GAP 13 MMOL/L (5-14); ASPARTATE AMINO TRANSFERASE 17 U/L (5-34); BILIRUBIN,TOTAL 0.4 MG/DL (0.1-1.0); BLOOD UREA NITROGEN 11 MG/DL (7-18); BUN/CREATININE RATIO 15; CALCIUM 9.4 MG/DL (8.5-10.1); CARBON DIOXIDE 22 MMOL/L (21-32); CHLORIDE 102 MMOL/L (98-107); CREATININE SERUM 0.72 MG/DL (0.60-1.30); GFR ESTIMATED > 60; GLUCOSE 104 MG/DL (70-105); POTASSIUM 4.1 MMOL/L (3.6-5.0); SODIUM 137 MMOL/L (135-145); TOTAL PROTEIN 6.5 GM/DL (6.4-8.2)
[2017-02-04 18:18] VITALS: BP 100/59
== END 2017-02-04 18:18 | disposition home or self-care (01) ==
LOC: EDUNIT# 16:54 → ER 16:56
DX: G89.29 Other chronic pain (principal); M79.605 Pain in left leg; M79.89 Other specified soft tissue disorders; Z98.890 Other specified postprocedural states
CPT/HCPCS: 36415; 80053; 83880; 85025; 85610; 85730

== ENCOUNTER 2017-07-16 14:14 | Outpatient (RCR) | payer MEDICARE, MEDICAID ==
[2017-08-01] MEDS ORDERED: BENZ200C51 PO (20:54)
[2017-08-01] MEDS ORDERED: RT-ALBUINH IH (20:54)
[2017-08-01] MEDS ORDERED: PRD20T PO (20:54)
== END 2017-08-02 15:54 | disposition home or self-care (01) ==
PROVIDERS: ATTEND Physician Assistant
DX: M54.2 Cervicalgia (principal); M54.6 Pain in thoracic spine

== ENCOUNTER 2017-08-01 18:49 | Emergency (ER) | payer MEDICARE, MEDICAID ==
[~2017-08-01] VITALS: Ht 172.7 cm; Wt 99.8 kg
[2017-08-01] MEDS ORDERED: PROMETHAZINE/ CODEINE SYRUP 5 ML UDC PO STA (20:36)
[2017-08-01] MEDS ORDERED: RT-ALBUTEROL/IPRATROPIUM 3 ML (DUONEB) VIAL INH ONE (20:45)
--- NOTE | 2017-08-01 20:45 | ED Cough/URI ---
General Chief Complaint: Cough/Cold/Flu Symptoms Stated Complaint: COUGH Nursing Triage Note: PT PRESENTS TO ER WITH COMPLAINT OF COUGH, AND MALAISE THAT STARTED YESTERDAY. Source: patient Exam Limitations: no limitations History of Present Illness Date Seen by Provider: Aug 01, 2017 Time Seen by Provider: 20:15 Initial Comments 57-year-old female patient presents to the emergency department complains of cough, wheezing, rhinorrhea, sneezing, body aches, malaise and fever beginning yesterday. Timing/Duration: yesterday Severity/Quality: productive cough (clear productive cough) Prior Episodes/Possible Cause: occasional episodes (history of COPD and asthma) Modifying Factors: Worse With Coughing Allergies and Home Medications Allergies Coded Allergies: tramadol (Unverified Allergy, Unknown, 11/22/16) Uncoded Allergies: PNEUMONIA SHOT (Allergy, Unknown, 11/22/16) Home Medications Albuterol Sulfate 8.5 Gm Hfa.aer.ad, 8.5 GM IH Q4H, #1 Prescribed by: PHILIP GILMORE on 06/23/15 1552 Albuterol Sulfate 6.7 Gm Hfa.aer.ad, 2 PUFF IH Q4H PRN for SHORTNESS OF BREATH, #1 Ref 0 Prescribed by: ANDRE LORD on 08/01/172053 Alprazolam 0.5 Mg Tablet, 0.5 MG PO DAILY, #28 (Reported) Benzonatate 200 Mg Capsule, 200 MG PO Q8H PRN for COUGH, #30 Ref 0 Prescribed by: ANDRE LORD on 08/01/172053 Bupropion HCl 150 Mg Tablet.er, 150 MG PO BID, #60 (Reported) Diclofenac Sodium 75 Mg Tablet.dr, 75 MG PO BID, #60 (Reported) Fluoxetine Hcl 20 Mg Capsule, 1 EACH PO DAILY, (Reported) Lisinopril 10 Mg Tablet, 10 MG PO DAILY, (Reported) Prednisone 20 Mg Tab, 40 MG PO DAILY, #10 Ref 0 Prescribed by: ANDRE LORD on 08/01/172053 Pregabalin 75 Mg Capsule, 75 MG PO BID, #56 (Reported) Ranitidine HCl 150 Mg Tablet, 150 MG PO BID, #60 (Reported) Simvastatin 40 Mg Tablet, 40 MG PO DAILY, #30 (Reported) Constitutional: chills, No diaphoresis, No dizziness, fever, malaise EENTM: see HPI, ear pain, nose congestion, throat pain, No ear discharge, No hoarseness, No mouth pain Respiratory: see HPI, cough, No dyspnea on exertion, phlegm, No short of breath (reports occasional shortness of air, denies current shortness of air.), No stridor, wheezing Cardiovascular: no symptoms reported Gastrointestinal: no symptoms reported Genitourinary: no symptoms reported Musculoskeletal: no symptoms reported Skin: no symptoms reported Psychiatric/Neurological: No Symptoms Reported All Other Systems Reviewed Negative Unless Noted: Yes (Negative excepted noted.) Past Qtywbhh-Ytkhrb-Sgqcey Hx Patient Social History Alcohol Use: Denies Use Recreational Drug Use: No Type Used: Cigarettes Recent Foreign Travel: No Contact w/Someone Who Travel: No Recent Infectious Disease Expo: No Recent Hopitalizations: Yes Immunizations Up To Date Tetanus Booster (TDap): Unknown PED Vaccines UTD: Yes Seasonal Allergies Seasonal Allergies: No Surgeries History of Surgeries: Yes (BACK) Surgeries: Gallbladder, Hysterectomy, Orthopedic, Tonsillectomy, Tubal Ligation Respiratory History of Respiratory Disorde: Yes Respiratory Disorders: Asthma, COPD Currently Using CPAP: No Cardiovascular History of Cardiac Disorders: Yes Cardiac Disorders: High Cholesterol, Hypertension Neurological History of Neurological Disord: Yes Neurological Disorders: Headaches /Migraines Genitourinary History of Genitourinary Disor: No Gastrointestinal History of Gastrointestinal Di: Yes (delayed emptying) Gastrointestinal Disorders: Gastroesophageal Reflux Musculoskeletal History of Musculoskeletal Dis: Yes (foot surgery) Musculoskeletal Disorders: Chronic Back Pain Endocrine History of Endocrine Disorders: Yes Endocrine Disorders: Diabetes, Non-Insulin dep HEENT History of HEENT Disorders: No Cancer History of Cancer: No Psychosocial History of Psychiatric Problem: No Behavioral Health Disorders: Anxiety, Depression Integumentary History of Skin or Integumenta: No Blood Transfusions History of Blood Disorders: No Reviewed Nursing Assessment Reviewed/Agree w Nursing PMH: Yes Family Medical History Significant Family History: No Pertinent Family Hx Physical Exam Vital Signs Vital Signs - First Documented 08/01/17 19:55 Temp 99.0 Pulse 116 Resp 20 B/P (MAP) 144/87 (106) Pulse Ox 96 O2 Delivery Room Air Capillary Refill : Less Than 3 Seconds General Appearance: WD/WN, no apparent distress HEENT: PERRL/EOMI, pharyngeal erythema, No tonsillar exudate, other (positive rhinorrhea and nasal congestion.) Neck: non-tender, full range of motion, supple, lymphadenopathy (R), lymphadenopathy (L) Respiratory: decreased breath sounds (bilateral bases decreased breath sounds) , wheezing, expiration Cardiovascular: normal peripheral pulses, no edema, no murmur, tachycardia Gastrointestinal: normal bowel sounds, non tender, soft, no organomegaly Extremities: no pedal edema, no calf tenderness, normal capillary refill Neurologic/Psychiatric: alert, normal mood/affect, oriented x 3 Skin: normal color, warm/dry Progress/Results/Core Measures Suspected Sepsis Recent Fever Within 48 Hours: No Infection Criteria Present: None New/Unexplained Altered Menta: No Sepsis Screen: No Definite Risk Sepsis Diagnosis: SIRS Temperature:99.0 Pulse: 116 Respiratory Rate: 20 Blood Pressure 144 /87 Mean: 106 Results/Orders Micro Results Microbiology 08/01/17 Influenza Types A,B Antigen (GLENN) - Final, Complete My Orders Orders - ANDRE LORD Influenza A And B Antigens (08/01/17 20:04) Promethazine/ Codeine Syrup (Phenergan W (08/01/17 20:36) Chest 1 View, Ap/Pa Only (08/01/17 20:36) Albuterol/Ipra Inhalation Soln (Duoneb I (08/01/17 20:45) Svn Sm Volume Nebulizer Rt-Rfs (08/01/17 20:36) Rx-Oseltamivir Caps (Rx-Tamiflu Caps) (08/01/17 20:55) Medications Given in ED Vital Signs/I&O Vital Sign - Last 12Hours 08/01/17 08/01/17 08/01/17 19:55 20:50 21:02 Temp 99.0 99.0 Pulse 116 116 Resp 20 20 B/P (MAP) 144/87 (106) Pulse Ox 96 94 94 O2 Delivery Room Air Room Air Room Air Capillary Refill : Less Than 3 Seconds Blood Pressure Mean: 106 Diagnostic Imaging Diagonstic Imaging: Xray Plain Films/CT/US/NM/MRI: chest Comments COMPARISON: Study of 06/23/2015. FINDINGS: Heart size and pulmonary vascularity are within normal limits, and the lungs are clear, bilaterally. IMPRESSION: Unremarkable chest. Dictated by: Dictated on workstation # [id number] Reviewed: Reviewed by Me (radiology report reviewed by me) Departure Communication (Admissions) Progress Notes Laboratory and diagnostic findings discussed with the patient. Patient reports feeling better with medications and the DuoNeb treatment. Patient shows improved aeration and breath sounds bilaterally. No wheezing, rhonchi or rales noted. Patient is alert/oriented 3, no acute distress. Cardiovascular regular rate and rhythm. Plan for discharge to home. Impression Impression: Primary Impression: Influenza A Disposition: 01 HOME, SELF-CARE Condition: Improved Departure-Patient Inst. Decision time for Depature: 20:51 Referrals: NEHAL MAX APRN (PCP/Family) Primary Care Physician Patient Instructions: Flu, Adult (DC) Add. Discharge Instructions: All discharge instructions reviewed with patient and/or family. Voiced understanding. Medications as instructed. Tylenol extra strength [id number] as directed for pain or fever. Ibuprofen 800 mg by mouth every 8 hours as needed for pain or fever. Push Fluids. Humidifier as needed. Decongestants and antihistamines as directed. Follow-up with your primary care provider if no improvement in symptoms. Return to the emergency department for worsened symptoms or any other concerns. Scripts Prednisone (Prednisone) 20 Mg Tab 40 MG PO DAILY, #10 TAB 0 Refills Prov: ANDRE LORD 08/01/17 Albuterol Sulfate (Proventil Hfa) 6.7 Gm Hfa.aer.ad 2 PUFF IH Q4H Y for SHORTNESS OF BREATH, #1 EACH 0 Refills Prov: ANDRE LORD 08/01/17 Benzonatate (Benzonatate) 200 Mg Capsule 200 MG PO Q8H Y for COUGH, #30 CAP 0 Refills Prov: ANDRE LORD 08/01/17 ANDRE LORD Aug 01, 2017 20:45
[2017-08-01] MEDS ORDERED: PRD20T PO (20:54)
[2017-08-01] MEDS ORDERED: RT-ALBUINH IH (20:54)
[2017-08-01] MEDS ORDERED: BENZ200C51 PO (20:54)
[2017-08-01] MEDS ORDERED: RX-OSELTAMIVIR 75 MG (TAMIFLU) BOX OF 10 PO STA (20:55)
--- NOTE | 2017-08-01 20:56 | Diagnostic Imaging Report ---
INDICATION: Cough, congestion and fever. EXAMINATION: Portable upright AP view of the chest was obtained. COMPARISON: Study of 06/23/2015. FINDINGS: Heart size and pulmonary vascularity are within normal limits, and the lungs are clear, bilaterally. IMPRESSION: Unremarkable chest. Dictated by: Dictated on workstation # [id number]
[2017-08-01 21:02] VITALS: BP 144/87
--- OUTSIDE RECORDS SUMMARY | 2017-08-04 07:09 | XMS REPORT ---
Author Author ANGE REYNOSO Organization [facility] Address [address] [place] [address] Care Team Providers Care Commissions Coordinator Name Role Phone ANGE REYNOSO Unavailable PROBLEMS Type Condition ICD9-CM Code [id number] Code Onset Dates Condition Status SNOMED Code Problem Bilateral low back pain without sciatica M54.5 Active 139157405 Problem Chronic pain syndrome G89.4 Active 480994725 Problem Anxiety F41.9 Active 89428056 Problem History of long-term use of multiple prescription drugs Z92.29 Active 197776547 Problem Type 2 diabetes mellitus with complication E11.8 Active 33013892 Problem COPD with acute exacerbation J44.1 Active 492242438 Problem Thrush B37.0 Active 02402694 Problem Mixed hyperlipidemia E78.2 Active 945457049 Problem Essential hypertension I10 Active 25571386 Problem Chronic obstructive pulmonary disease, unspecified COPD type J44.9 Active 73799625 Problem Long-term use of high-risk medication Z79.899 Active 994643593 ALLERGIES No Information SOCIAL HISTORY Never Assessed PLAN OF CARE VITAL SIGNS MEDICATIONS Unknown Medications RESULTS No Results PROCEDURES No Known procedures IMMUNIZATIONS No Known Immunizations MEDICAL (GENERAL) HISTORY Type Description Date Medical History hypertension Medical History type II diabetes AIC 5.4 on 09-05 Medical History hyperlipidemia Medical History anxiety Medical History depression- has taken wellbutrin and fluoxetine for long time together Medical History chronic pain-fell and had back fx Medical History asthma Medical History chronic obstructive pulmonary disease (COPD) Medical History gastroesophageal reflux disease (GERD) Medical History gastric ulcer Medical History 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 Medical History migraine headaches Medical History anemia Medical History difficulty reading & spelling Medical History colonic polyps Medical History Anxiety state, unspecified Medical History Depressive disorder, not elsewhere classified Medical History Other injury of other sites of trunk Medical History Pain in joint, lower leg Surgical History EGD 2012 Surgical History colonoscopy 2012 Surgical History tonsillectomy Surgical History hysterectomy, total with bilateral salpingo-oophorectomy (BSO ) d/t 1999 Surgical History orthopedic surgery-Left foot spurs
--- OUTSIDE RECORDS SUMMARY | 2017-08-04 07:09 | XMS REPORT ---
Author Author PARIS ARANDA Organization [facility] Address [address] [place] [address] Care Team Providers Care Flat Bed Operator Name Role Phone PARIS ARANDA Unavailable PROBLEMS Type Condition ICD9-CM Code [id number] Code Onset Dates Condition Status SNOMED Code Problem Bilateral low back pain without sciatica M54.5 Active 188123574 Problem Chronic pain syndrome G89.4 Active 090096919 Problem Anxiety F41.9 Active 92273343 Problem History of long-term use of multiple prescription drugs Z92.29 Active 711334676 Problem Type 2 diabetes mellitus with complication E11.8 Active 78789182 Problem COPD with acute exacerbation J44.1 Active 130901522 Problem Thrush B37.0 Active 63953851 Problem Mixed hyperlipidemia E78.2 Active 976840857 Problem Essential hypertension I10 Active 09569490 Problem Chronic obstructive pulmonary disease, unspecified COPD type J44.9 Active 98553259 Problem Long-term use of high-risk medication Z79.899 Active 053743530 ALLERGIES No Known Allergies SOCIAL HISTORY Never Assessed PLAN OF CARE VITAL SIGNS Height 68 in 2016-10-31 Weight 233.6 lbs 2016-10-31 Temperature 98.6 degrees Fahrenheit 2016-10-31 Heart Rate 88 bpm 2016-10-31 Respiratory Rate 20 2016-10-31 BMI 35.51 kg/m2 2016-10-31 Blood pressure systolic 136 mmHg 2016-10-31 Blood pressure diastolic 94 mmHg 2016-10-31 MEDICATIONS Medication Instructions Dosage Frequency Start Date End Date Duration Status Zantac 150 TAKE ONE TABLET BY MOUTH TWICE A DAY 30 Active Lyrica 75 Orally Twice a day 1 capsule 12h Active cyclobenzaprine 10 mg 1 tablet 1 time per day for 10 days PRN at hs for neck pain muscle spasm Apr, Active Dicyclomine HCl 20 TAKE ONE TABLET BY MOUTH FOUR TIMES A DAY UNTIL GONE 30 Active Reglan 10 TAKE ONE TABLET BY MOUTH THREE TIMES A DAY 20 Active Diclofenac Sodium 75 TAKE ONE TABLET BY MOUTH TWICE A DAY 30 Active Aspirin 81 mg 1 tablet by Oral route 1 time per day Active BuPROPion HCl 150 MG take 1 tablet (150 mg) by oral route 2 times per day Mar, Active Xanax 0.5 MG Orally Once a day as needed 1/2 tablet Active Zocor 40 TAKE ONE TABLET BY MOUTH DAILY 30 Active ProAir HFA 108 (90 Base) MCG/ACT Inhalation every 4 hrs 2 puffs as needed 4h Sep, Active Incruse Ellipta 62.5 MCG/INH Inhalation Once a day 1 puff 24h Jan, Active Colace 100 mg 1 capsule by Oral route 2 times per day PRN 10 Jul, 2014 Active Metoclopramide HCl 10 TAKE ONE TABLET BY MOUTH THREE TIMES A DAY 20 Active Tessalon Perles 100 mg Orally Three times a day 1 capsule as needed 8h October, Active Hydrocodone-Acetaminophen 10-325 MG Take 1 tablet twice daily as needed for 1 week, then 1 tablet daily until out Active ProAir HFA 108 (90 Base) MCG/ACT Inhalation every 4 hrs 2 puffs as needed 4h 23 Nov, 2014 30 days Active PredniSONE 20 mg Orally Once a day 2 tablets 24h October, October, 05 days Active BuPROPion HCl (SR) 150 TAKE ONE TABLET BY MOUTH TWICE A DAY 30 Active Metformin HCl 500 Orally Once a day 1 tablet 24h 30 Active Ranitidine HCl 150 TAKE ONE TABLET BY MOUTH TWICE A DAY 30 Active Bentyl 20 TAKE ONE TABLET BY MOUTH FOUR TIMES A DAY UNTIL ALL ARE TAKEN 30 Active Omeprazole 20 TAKE ONE CAPSULE BY MOUTH DAILY BEFORE A MEAL 30 Active Lisinopril 10 orally daily 1 tablet 24h 90 Active RESULTS Name Result Date Reference Range UA LONG DIP (IN HOUSE) 2016-10-31 Lot # [id number] Exp date 2017 09 30 Clarity clear Color yellow Odor none GLU negative YONATAN negative KET negative SG 1.010 BLO negative pH 6.0 Protein negative URO 0.2 NIT negative EVERETTE negative Lot # [id number] Exp date 2017 07 PROCEDURES Procedure Date Ordered Result Body Site URINALYSIS, AUTO, W/O SCOPE October 31, 2016 [facility] VISIT ESTABLISHED PATIENT October 31, 2016 IMMUNIZATIONS No Known Immunizations MEDICAL (GENERAL) HISTORY [...]
--- OUTSIDE RECORDS SUMMARY | 2017-08-04 07:09 | XMS REPORT ---
Author Author ANGE REYNOSO Organization [facility] Address [address] [place] [address] Care Team Providers Care Transportation Services Representative Name Role Phone ANGE REYNOSO Unavailable PROBLEMS Type Condition ICD9-CM Code [id number] Code Onset Dates Condition Status SNOMED Code Problem Anxiety F41.9 Active 75739884 Problem Bilateral low back pain without sciatica M54.5 Active 041660627 Problem History of long-term use of multiple prescription drugs Z92.29 Active 408224415 Problem Type 2 diabetes mellitus with complication E11.8 Active 18345845 Problem Chronic pain syndrome G89.4 Active 503236875 Problem COPD with acute exacerbation J44.1 Active 055139545 Problem Chronic obstructive pulmonary disease, unspecified COPD type J44.9 Active 39798301 Problem Mixed hyperlipidemia E78.2 Active 965162002 Problem Essential hypertension I10 Active 68167637 Problem Thrush B37.0 Active 20073521 Problem Long-term use of high-risk medication Z79.899 Active 253315114 ALLERGIES Unknown Allergies SOCIAL HISTORY No smoking Hx information available PLAN OF CARE VITAL SIGNS MEDICATIONS Unknown Medications RESULTS No Results PROCEDURES No Known procedures IMMUNIZATIONS No Known Immunizations
--- OUTSIDE RECORDS SUMMARY | 2017-08-04 07:10 | XMS REPORT ---
Author Author ANGE REYNOSO Organization [facility] Address [address] [place] [address] Care Team Providers Care Rouge Mixer Name Role Phone ANGE REYNOSO Unavailable PROBLEMS Type Condition ICD9-CM Code [id number] Code Onset Dates Condition Status SNOMED Code Problem Bilateral low back pain without sciatica M54.5 Active 962769484 Problem Chronic pain syndrome G89.4 Active 282820348 Problem Anxiety F41.9 Active 26321344 Problem History of long-term use of multiple prescription drugs Z92.29 Active 736133203 Problem Type 2 diabetes mellitus with complication E11.8 Active 83183095 Problem COPD with acute exacerbation J44.1 Active 639448854 Problem Thrush B37.0 Active 69355754 Problem Mixed hyperlipidemia E78.2 Active 343135692 Problem Essential hypertension I10 Active 55530061 Problem Chronic obstructive pulmonary disease, unspecified COPD type J44.9 Active 54226212 Problem Long-term use of high-risk medication Z79.899 Active 549193072 ALLERGIES Unknown Allergies SOCIAL HISTORY No smoking Hx information available PLAN OF CARE VITAL SIGNS MEDICATIONS Unknown Medications RESULTS No Results PROCEDURES No Known procedures IMMUNIZATIONS No Known Immunizations
--- OUTSIDE RECORDS SUMMARY | 2017-08-04 07:11 | XMS REPORT ---
Author Author AMY ABBASI Organization [facility] Address [address] [place] [address] Care Team Providers Care Coverstitch Machine Operator Name Role Phone AMY ABBASI Unavailable PROBLEMS Type Condition ICD9-CM Code [id number] Code Onset Dates Condition Status SNOMED Code Problem Bilateral low back pain without sciatica M54.5 Active 719250329 Problem Chronic pain syndrome G89.4 Active 127088299 Problem Anxiety F41.9 Active 41921862 Problem History of long-term use of multiple prescription drugs Z92.29 Active 715133550 Problem Type 2 diabetes mellitus with complication E11.8 Active 45461967 Problem COPD with acute exacerbation J44.1 Active 682840277 Problem Thrush B37.0 Active 47822144 Problem Mixed hyperlipidemia E78.2 Active 091067539 Problem Essential hypertension I10 Active 45304152 Problem Chronic obstructive pulmonary disease, unspecified COPD type J44.9 Active 88101698 Problem Long-term use of high-risk medication Z79.899 Active 188229868 ALLERGIES No Known Allergies SOCIAL HISTORY Never Assessed PLAN OF CARE Activity Details Follow Up prn Reason: VITAL SIGNS Height 68 in 2016-11-05 Weight 234 lbs 2016-11-05 Temperature 98.4 degrees Fahrenheit 2016-11-05 Heart Rate 76 bpm 2016-11-05 Respiratory Rate 18 2016-11-05 BMI 35.58 kg/m2 2016-11-05 Blood pressure systolic 140 mmHg 2016-11-05 Blood pressure diastolic 88 mmHg 2016-11-05 MEDICATIONS Medication Instructions Dosage Frequency Start Date End Date Duration Status Omeprazole 20 TAKE ONE CAPSULE BY MOUTH DAILY BEFORE A MEAL 30 Active BuPROPion HCl (SR) 150 TAKE ONE TABLET BY MOUTH TWICE A DAY 30 Active Zocor 40 TAKE ONE TABLET BY MOUTH DAILY 30 Active Reglan 10 TAKE ONE TABLET BY MOUTH THREE TIMES A DAY 20 Active Metoclopramide HCl 10 TAKE ONE TABLET BY MOUTH THREE TIMES A DAY 20 Active Colace 100 mg 1 capsule by Oral route 2 times per day PRN 10 Feb, 2015 Active Xanax 0.5 MG Orally Once a day as needed 1/2 tablet Active PredniSONE 20 mg Orally Once a day 2 tablets 24h October, October, 05 days Active Aspirin 81 mg 1 tablet by Oral route 1 time per day Active Tessalon Perles 100 mg Orally Three times a day 1 capsule as needed 8h October, Active Hydrocodone-Acetaminophen 10-325 MG Take 1 tablet twice daily as needed for 1 week, then 1 tablet daily until out Active BuPROPion HCl 150 MG take 1 tablet (150 mg) by oral route 2 times per day Mar, Active Metformin HCl 500 Orally Once a day 1 tablet 24h 30 Active ProAir HFA 108 (90 Base) MCG/ACT Inhalation every 4 hrs 2 puffs as needed 4h Nov, 30 days Active cyclobenzaprine 10 mg 1 tablet 1 time per day for 10 days PRN at hs for neck pain muscle spasm Apr, Active Diclofenac Sodium 75 TAKE ONE TABLET BY MOUTH TWICE A DAY 30 Active ProAir HFA 108 (90 Base) MCG/ACT Inhalation every 4 hrs 2 puffs as needed 4h Sep, Active Incruse Ellipta 62.5 MCG/INH Inhalation Once a day 1 puff 24h 11 Jan, 2016 Active Guaifenesin-DM 100-10 MG/5ML Orally every 4 hrs 10 ml as needed 4h October, October, 5 days Active Ranitidine HCl 150 TAKE ONE TABLET BY MOUTH TWICE A DAY 30 Active Lyrica 75 Orally Twice a day 1 capsule 12h Active Bentyl 20 TAKE ONE TABLET BY MOUTH FOUR TIMES A DAY UNTIL ALL ARE TAKEN 30 Active Azithromycin 250 MG Orally Once a day 2 tablets on the first day, then 1 tablet daily for 4 days 24h October, October, 5 day(s) Active Dicyclomine HCl 20 TAKE ONE TABLET BY MOUTH FOUR TIMES A DAY UNTIL GONE 30 Active Lisinopril 10 orally daily 1 tablet 24h 90 Active Zantac 150 TAKE ONE TABLET BY MOUTH TWICE A DAY 30 Active RESULTS No Results PROCEDURES Procedure Date Ordered Result Body Site [facility] VISIT ESTABLISHED PATIENT November 05, 2016 IMMUNIZATIONS No Known Immunizations MEDICAL (GENERAL) [...]
--- OUTSIDE RECORDS SUMMARY | 2017-08-04 07:12 | XMS REPORT ---
Author Author ANGE REYNOSO Organization [facility] Address [address] [place] [address] Care Team Providers Care Policy Services Representative Name Role Phone ANGE REYNOSO Unavailable PROBLEMS Type Condition ICD9-CM Code FQI16-[id number] Code Onset Dates Condition Status SNOMED Code Problem Bilateral low back pain without sciatica M54.5 Active 562294307 Problem Chronic pain syndrome G89.4 Active 612114120 Problem Anxiety F41.9 Active 20962141 Problem History of long-term use of multiple prescription drugs Z92.29 Active 565346993 Problem Type 2 diabetes mellitus with complication E11.8 Active 19485309 Problem COPD with acute exacerbation J44.1 Active 222878433 Problem Thrush B37.0 Active 14154778 Problem Mixed hyperlipidemia E78.2 Active 261337895 Problem Essential hypertension I10 Active 63932099 Problem Chronic obstructive pulmonary disease, unspecified COPD type J44.9 Active 75377306 Problem Long-term use of high-risk medication Z79.899 Active 674928894 ALLERGIES Unknown Allergies SOCIAL HISTORY No smoking Hx information available PLAN OF CARE VITAL SIGNS MEDICATIONS Medication Instructions Dosage Frequency Start Date End Date Duration Status Lyrica 75 Orally Twice a day 1 capsule 12h Active RESULTS No Results PROCEDURES No Known procedures IMMUNIZATIONS No Known Immunizations
--- OUTSIDE RECORDS SUMMARY | 2017-08-04 07:12 | XMS REPORT ---
Author Author ANGE REYNOSO Organization [facility] Address [address] [place] [address] Care Team Providers Care Accounts Clerk Name Role Phone ANGE REYNOSO Unavailable PROBLEMS Type Condition ICD9-CM Code [id number] Code Onset Dates Condition Status SNOMED Code Problem Bilateral low back pain without sciatica M54.5 Active 469845694 Problem Chronic pain syndrome G89.4 Active 468905532 Problem Anxiety F41.9 Active 26040696 Problem History of long-term use of multiple prescription drugs Z92.29 Active 474898494 Problem Type 2 diabetes mellitus with complication E11.8 Active 93483499 Problem COPD with acute exacerbation J44.1 Active 194653680 Problem Thrush B37.0 Active 59712059 Problem Mixed hyperlipidemia E78.2 Active 209794758 Problem Essential hypertension I10 Active 66053971 Problem Chronic obstructive pulmonary disease, unspecified COPD type J44.9 Active 02148610 Problem Long-term use of high-risk medication Z79.899 Active 249849683 ALLERGIES Unknown Allergies SOCIAL HISTORY No smoking Hx information available PLAN OF CARE VITAL SIGNS MEDICATIONS Medication Instructions Dosage Frequency Start Date End Date Duration Status Xanax 0.5 MG Orally Once a day as needed 1/2 tablet Active Hydrocodone-Acetaminophen 10-325 MG Take 1 tablet twice daily as needed for 1 week, then 1 tablet daily until out Active RESULTS No Results PROCEDURES No Known procedures IMMUNIZATIONS No Known Immunizations
--- OUTSIDE RECORDS SUMMARY | 2017-08-04 07:12 | XMS REPORT | Continuity of Care Document ---
Author Author [facility] Address Unknown Phone Unavailable Allergies Active Description Code Type Severity Reaction Onset Reported/Identified Relationship to Patient Clinical Status Yes No Known Drug Allergies [id number] Drug Allergy Unknown N/A 08/14/2012 Yes PNEUMONIA SHOT PNEUMONIA SHOT Unknown N/A 11/22/2016 Yes tramadol [id number] Drug Allergy Unknown N/A 11/22/2016 Medications There is no data. Problems Date Dx Coded Attending Type Code Diagnosis Diagnosed By 08/14/2012 Ot 724.2 LUMBAGO 01/12/2014 JIN DO ADALBERTO K 250.00 DIABETES MELLITUS WITHOUT MENTION OF COMPLICATION TYPE II OR UNSPECIFIED TYPE NOT STATED UNCONTROLLED 01/12/2014 JIN DO ADALBERTO K 272.4 OTHER AND UNSPECIFIED HYPERLIPIDEMIA 01/12/2014 JIN DO ADALBERTO K 300.00 ANXIETY UNSPEC 01/12/2014 JIN DO ADALBERTO K 401.1 HYPERTENSION, BENIGN ESSENTIAL 01/12/2014 JIN DO ADALBERTO K 724.2 LUMBAGO 01/12/2014 MADL ORDNANCE MECHANIC, ANGE L 250.00 DIABETES MELLITUS WITHOUT MENTION OF COMPLICATION TYPE II OR UNSPECIFIED TYPE NOT STATED UNCONTROLLED 01/12/2014 MADL ORDNANCE MECHANIC, ANGE L 272.4 OTHER AND UNSPECIFIED HYPERLIPIDEMIA 01/12/2014 MADL ORDNANCE MECHANIC, ANGE L 300.00 ANXIETY UNSPEC 01/12/2014 MADL ORDNANCE MECHANIC, ANGE L 401.1 HYPERTENSION, BENIGN ESSENTIAL 01/12/2014 MADL ORDNANCE MECHANIC, ANGE L 724.2 LUMBAGO 01/12/2014 MADL ORDNANCE MECHANIC, ANGE L 250.00 DIABETES MELLITUS WITHOUT MENTION OF COMPLICATION TYPE II OR UNSPECIFIED TYPE NOT STATED UNCONTROLLED 01/12/2014 MADL ORDNANCE MECHANIC, ANGE L 272.4 OTHER AND UNSPECIFIED HYPERLIPIDEMIA 01/12/2014 MADL ORDNANCE MECHANIC, ANGE L 300.00 ANXIETY UNSPEC 01/12/2014 MADL ORDNANCE MECHANIC, ANGE L 401.1 HYPERTENSION, BENIGN ESSENTIAL 01/12/2014 MADL ORDNANCE MECHANIC, ANGE L 724.2 LUMBAGO 01/12/2014 JIN DO, ADALBERTO K 250.00 DIABETES MELLITUS WITHOUT MENTION OF COMPLICATION TYPE II OR UNSPECIFIED TYPE NOT STATED UNCONTROLLED 01/12/2014 JIN DO, ADALBERTO K 272.4 OTHER AND UNSPECIFIED HYPERLIPIDEMIA 01/12/2014 JIN DO, ADALBERTO K 300.00 ANXIETY UNSPEC 01/12/2014 JIN DO, ADALBERTO K 401.1 HYPERTENSION, BENIGN ESSENTIAL 01/12/2014 JIN DO, ADALBERTO K 724.2 LUMBAGO 01/12/2014 MADL ORDNANCE MECHANIC, ANGE L 250.00 DIABETES MELLITUS WITHOUT MENTION OF COMPLICATION TYPE II OR UNSPECIFIED TYPE NOT STATED UNCONTROLLED 01/12/2014 MADL ORDNANCE MECHANIC, ANGE L 272.4 OTHER AND UNSPECIFIED HYPERLIPIDEMIA 01/12/2014 MADL ORDNANCE MECHANIC, ANGE L 300.00 ANXIETY UNSPEC 01/12/2014 MADL ORDNANCE MECHANIC, ANGE L 401.1 HYPERTENSION, BENIGN ESSENTIAL 01/12/2014 MADL ORDNANCE MECHANIC, ANGE L 724.2 LUMBAGO 01/12/2014 JIN DO, ADALBERTO K 250.00 DIABETES MELLITUS WITHOUT MENTION OF COMPLICATION TYPE II OR UNSPECIFIED TYPE NOT STATED UNCONTROLLED 01/12/2014 JIN DO, ADALBERTO K 272.4 OTHER AND UNSPECIFIED HYPERLIPIDEMIA 01/12/2014 JIN DO, ADALBERTO K 300.00 ANXIETY UNSPEC 01/12/2014 JIN DO, ADALBERTO K 401.1 HYPERTENSION, BENIGN ESSENTIAL 01/12/2014 JIN DO, ADALBERTO K 724.2 LUMBAGO 01/12/2014 MADL ORDNANCE MECHANIC, ANGE L 250.00 DIABETES MELLITUS WITHOUT MENTION OF COMPLICATION TYPE II OR UNSPECIFIED TYPE NOT STATED UNCONTROLLED 01/12/2014 MADL ORDNANCE MECHANIC, ANGE L 272.4 OTHER AND UNSPECIFIED HYPERLIPIDEMIA 01/12/2014 MADL ORDNANCE MECHANIC, ANGE L 300.00 ANXIETY UNSPEC 01/12/2014 MADL ORDNANCE MECHANIC, ANGE L 401.1 HYPERTENSION, BENIGN ESSENTIAL 01/12/2014 MADL ORDNANCE MECHANIC, ANGE L 724.2 LUMBAGO 01/12/2014 JIN DO, ADALBERTO K 250.00 DIABETES MELLITUS WITHOUT MENTION OF COMPLICATION TYPE II OR UNSPECIFIED TYPE NOT STATED UNCONTROLLED 01/12/2014 JIN DO, ADALBERTO K 272.4 OTHER AND UNSPECIFIED HYPERLIPIDEMIA 01/12/2014 JIN DO, ADALBERTO K 300.00 ANXIETY UNSPEC 01/12/2014 JIN DO, ADALBERTO K 401.1 HYPERTENSION, BENIGN ESSENTIAL 01/12/2014 JIN DO, ADALBERTO K 724.2 LUMBAGO 01/12/2014 MADL ORDNANCE MECHANIC, ANGE L 250.00 DIABETES MELLITUS WITHOUT MENTION OF COMPLICATION TYPE II OR UNSPECIFIED TYPE NOT STATED UNCONTROLLED 01/12/2014 MADL ORDNANCE MECHANIC, ANGE L 272.4 OTHER AND UNSPECIFIED HYPERLIPIDEMIA 01/12/2014 MADL ORDNANCE MECHANIC, ANGE L 300.00 ANXIETY UNSPEC 01/12/2014 MADL ORDNANCE MECHANIC, ANGE L 401.1 HYPERTENSION, BENIGN ESSENTIAL 01/12/2014 MADL ORDNANCE MECHANIC, ANGE L 724.2 LUMBAGO 01/12/2014 MADL ORDNANCE MECHANIC, ANGE L 250.00 DIABETES MELLITUS WITHOUT MENTION OF COMPLICATION TYPE II OR UNSPECIFIED TYPE NOT STATED UNCONTROLLED 01/12/2014 MADL ORDNANCE MECHANIC, ANGE L 272.4 OTHER AND UNSPECIFIED HYPERLIPIDEMIA 01/12/2014 MADL ORDNANCE MECHANIC, ANGE L 300.00 ANXIETY UNSPEC 01/12/2014 MADL ORDNANCE MECHANIC, ANGE L 311 DEPRESSIVE DISORDER NOT ELSEWHERE CLASSIFIED 01/12/2014 MADL ORDNANCE MECHANIC, ANGE L 401.1 HYPERTENSION, BENIGN ESSENTIAL 01/12/2014 MADL ORDNANCE MECHANIC, ANGE L 724.2 LUMBAGO 01/12/2014 FILIPPO RAYO PHD 250.00 DIABETES MELLITUS WITHOUT MENTION OF COMPLICATION TYPE II OR UNSPECIFIED TYPE NOT STATED UNCONTROLLED 01/12/2014 FILIPPO RAYO PHD 272.4 OTHER AND UNSPECIFIED HYPERLIPIDEMIA 01/12/2014 FILIPPO RAYO PHD 300.00 ANXIETY UNSPEC 01/12/2014 FILIPPO RAYO PHD 311 DEPRESSIVE DISORDER NOT ELSEWHERE CLASSIFIED 01/12/2014 FILIPPO RAYO PHD 401.1 HYPERTENSION, BENIGN ESSENTIAL 01/12/2014 FILIPPO RAYO PHD 724.2 LUMBAGO 03/09/2014 MADL ORDNANCE MECHANIC, ANGE L 112.0 CANDIDIASIS OF MOUTH 03/09/2014 MADL ORDNANCE MECHANIC, ANGE L 461.9 SINUSITIS ACUTE 03/09/2014 JIN DO, ADALBERTO K 112.0 CANDIDIASIS OF MOUTH 03/09/2014 JIN DO, ADALBERTO K 461.9 SINUSITIS ACUTE 03/09/2014 MADL ORDNANCE MECHANIC, ANGE L 112.0 CANDIDIASIS OF MOUTH 03/09/2014 MADL ORDNANCE MECHANIC, ANGE L 461.9 SINUSITIS ACUTE 03/09/2014 JIN DO, ADALBERTO K 112.0 CANDIDIASIS OF MOUTH 03/09/2014 JIN DO, ADALBERTO K 461.9 SINUSITIS ACUTE 03/09/2014 MADL ORDNANCE MECHANIC, ANGE L 112.0 CANDIDIASIS OF MOUTH 03/09/2014 MADL ORDNANCE MECHANIC, ANEG L 461.9 SINUSITIS ACUTE 03/09/2014 JIN DO, ADALBERTO K 112.0 CANDIDIASIS OF MOUTH 03/09/2014 JIN DO, ADALBERTO K 461.9 SINUSITIS ACUTE 03/09/2014 MADL ORDNANCE MECHANIC, ANGE L 112.0 CANDIDIASIS OF MOUTH 03/09/2014 MADL ORDNANCE MECHANIC, ANGE L 461.9 SINUSITIS ACUTE 03/09/2014 MADL ORDNANCE MECHANIC, ANGE L 112.0 CANDIDIASIS OF MOUTH 03/09/2014 MADL ORDNANCE MECHANIC, ANGE L 461.9 SINUSITIS ACUTE 03/09/2014 PERRI PHD, FILIPPO Crain 112.0 CANDIDIASIS OF MOUTH 03/09/2014 PERRI HBATIA, FILIPPO Crain 461.9 SINUSITIS ACUTE 06/03/2014 JIN DO, ADALBERTO K 356.9 UNSPECIFIED IDIOPATHIC PERIPHERAL NEUROPATHY 06/03/2014 JIN DO, ADALBERTO K 780.4 DIZZINESS AND GIDDINESS 06/03/2014 JIN DO, ADALBERTO K 784.0 HEADACHE 06/03/2014 MADL ORDNANCE MECHANIC, ANGE L 356.9 UNSPECIFIED IDIOPATHIC PERIPHERAL NEUROPATHY 06/03/2014 MADL ORDNANCE MECHANIC, ANGE L 780.4 DIZZINESS AND GIDDINESS 06/03/2014 MADL ORDNANCE MECHANIC, ANGE L 784.0 HEADACHE 06/03/2014 JIN DO, ADALBERTO K 356.9 UNSPECIFIED IDIOPATHIC PERIPHERAL NEUROPATHY 06/03/2014 JIN DO, ADALBERTO K 780.4 DIZZINESS AND GIDDINESS 06/03/2014 JIN DO, ADALBERTO K 784.0 HEADACHE 06/03/2014 MADL ORDNANCE MECHANIC, ANGE L 356.9 UNSPECIFIED IDIOPATHIC PERIPHERAL NEUROPATHY 06/03/2014 MADL ORDNANCE MECHANIC, ANGE L 780.4 DIZZINESS AND GIDDINESS 06/03/2014 MADL ORDNANCE MECHANIC, ANGE L 784.0 HEADACHE 06/03/2014 MADL ORDNANCE MECHANIC, ANGE L 356.9 UNSPECIFIED IDIOPATHIC PERIPHERAL NEUROPATHY 06/03/2014 MADL ORDNANCE MECHANIC, ANGE L 780.4 DIZZINESS AND GIDDINESS 06/03/2014 MADL ORDNANCE MECHANIC, ANGE L 784.0 HEADACHE 06/03/2014 FILIPPO RAYO PHD 356.9 UNSPECIFIED IDIOPATHIC PERIPHERAL NEUROPATHY 06/03/2014 FILIPPO RAYO PHD 780.4 DIZZINESS AND GIDDINESS 06/03/2014 FILIPPO RAYO PHD 784.0 HEADACHE 06/20/2014 PHILIP GILMORE APRN Ot 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 06/20/2014 PHILIP GILMORE APRN Ot 525.9 DENTAL DISORDER NOS 06/22/2014 MADL ORDNANCE MECHANIC, ANGE L 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ITIS 06/22/2014 ADALBERTO JIN DO K 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ITIS 06/22/2014 MADL ORDNANCE MECHANIC, ANGE L 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ITIS 06/22/2014 MADL ORDNANCE MECHANIC, ANGE L 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ITIS 06/22/2014 FILIPPO RAYO PHD 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ITIS 07/06/2014 ISABEL JIN DOA K 959.19 OTHER AND UNSPECIFIED INJURY OF OTHER SITES OF TRUNK 07/06/2014 DAVIN MARQUEZ ADALBERTO K V04.81 FLU SHOT 07/06/2014 MADL ORDNANCE MECHANIC, ANGE L 959.19 OTHER AND UNSPECIFIED INJURY OF OTHER SITES OF TRUNK 07/06/2014 MADL ORDNANCE MECHANIC, ANGE L V04.81 FLU SHOT 07/06/2014 MADL ORDNANCE MECHANIC, ANGE L 959.19 OTHER AND UNSPECIFIED INJURY OF OTHER SITES OF TRUNK 07/06/2014 MADL ORDNANCE MECHANIC, ANGE L V04.81 FLU SHOT 07/06/2014 FILIPPO RAYO PHD 959.19 OTHER AND UNSPECIFIED INJURY OF OTHER SITES OF TRUNK 07/06/2014 PERRI PHD, FILIPPO Crain V04.81 FLU SHOT 09/03/2014 ANGELES JINNANGE Ghassan 719.46 PAIN IN JOINT INVOLVING LOWER LEG 09/03/2014 PERRI BHATIA, FILIPPO Crain 719.46 PAIN IN JOINT INVOLVING LOWER LEG 10/04/2014 PERRI PHD, FILIPPO Crain 296.20 MAJOR DEPRESSIVE AFFECTIVE DISORDER SINGLE EPISODE UNSPECIFIED DEGREE 06/23/2015 PHILIP GILMORE APRN Ot F17.210 NICOTINE DEPENDENCE, CIGARETTES, UNCOMPL 06/23/2015 PHILIP GILMORE APRN Ot J18.9 PNEUMONIA, UNSPECIFIED ORGANISM 06/23/2015 PHILIP GILMORE APRN Ot J44.9 CHRONIC OBSTRUCTIVE PULMONARY DISEASE, U 06/13/2016 GINI MULTANI MD Ot E11.9 TYPE 2 DIABETES MELLITUS WITHOUT COMPLIC 06/13/2016 GINI MULTANI MD A Ot G89.29 OTHER CHRONIC PAIN 06/13/2016 GINI MULTANI MD Ot J44.9 CHRONIC OBSTRUCTIVE PULMONARY DISEASE, U 06/13/2016 GINI MULTANI MD A Ot M54.5 LOW BACK PAIN 06/13/2016 GINI MULTANI MD Ot Z79.84 PENITENTIARY (CURRENT) USE OF ORAL HYPOGLYC 06/13/2016 GINI MULTANI MD A Ot Z79.899 OTHER HYDRAULIC JACK ADJUSTER (CURRENT) DRUG THERAPY 06/14/2016 GINI MULTANI MD Ot E11.9 TYPE 2 DIABETES MELLITUS WITHOUT COMPLIC 06/14/2016 GINI MULTANI MD A Ot G89.29 OTHER CHRONIC PAIN 06/14/2016 GINI MULTANI MD Ot J44.9 CHRONIC OBSTRUCTIVE PULMONARY DISEASE, U 06/14/2016 GINI MULTANI MD A Ot M54.5 LOW BACK PAIN 06/14/2016 GINI MULTANI MD A Ot Z79.84 PENITENTIARY (CURRENT) USE OF ORAL HYPOGLYC 06/14/2016 GINI MULTANI MD A Ot Z79.899 OTHER PENITENTIARY (CURRENT) DRUG THERAPY 06/15/2016 GINI MULTANI MD A Ot E11.9 TYPE 2 DIABETES MELLITUS WITHOUT COMPLIC 06/15/2016 GINI MULTANI MD A Ot G89.29 OTHER CHRONIC PAIN 06/15/2016 GINI MULTANI MD Ot J44.9 CHRONIC OBSTRUCTIVE PULMONARY DISEASE, U 06/15/2016 GINI MULTANI MD Ot M54.5 LOW BACK PAIN 06/15/2016 GINI MULTANI MD Ot Z79.84 HYDRAULIC JACK ADJUSTER (CURRENT) USE OF ORAL HYPOGLYC 06/15/2016 GINI MULTANI MD Ot Z79.899 OTHER PENITENTIARY (CURRENT) DRUG THERAPY 11/22/2016 PHILIP GILMORE ORDNANCE MECHANIC Ot E11.9 TYPE 2 DIABETES MELLITUS WITHOUT COMPLIC 11/22/2016 PHILIP GILMORE ORDNANCE MECHANIC Ot F17.210 NICOTINE DEPENDENCE, CIGARETTES, UNCOMPL 11/22/2016 PHILIP GILMORE ORDNANCE MECHANIC Ot G89.29 OTHER CHRONIC PAIN 11/22/2016 PHILIP GILMORE ORDNANCE MECHANIC Ot I10 ESSENTIAL (PRIMARY) HYPERTENSION 11/22/2016 PHILIP GILMORE ORDNANCE MECHANIC Ot J44.9 CHRONIC OBSTRUCTIVE PULMONARY DISEASE, U 11/22/2016 PHILIP GILMORE ORDNANCE MECHANIC Ot M54.5 LOW BACK PAIN 11/22/2016 PHILIP GILMORE ORDNANCE MECHANIC Ot Z79.84 HYDRAULIC JACK ADJUSTER (CURRENT) USE OF ORAL HYPOGLYC 11/22/2016 PHILIP GILMORE ORDNANCE MECHANIC Ot Z79.899 OTHER PENITENTIARY (CURRENT) DRUG THERAPY 11/25/2016 PHILIP GILMORE APRN Ot E11.9 TYPE 2 DIABETES MELLITUS WITHOUT COMPLIC 11/25/2016 PHILIP GILMORE ORDNANCE MECHANIC Ot F17.210 NICOTINE DEPENDENCE, CIGARETTES, UNCOMPL 11/25/2016 PHILIP GILMORE ORDNANCE MECHANIC Ot G89.29 OTHER CHRONIC PAIN 11/25/2016 PHILIP GILMORE ORDNANCE MECHANIC Ot I10 ESSENTIAL (PRIMARY) HYPERTENSION 11/25/2016 PHILIP GILMORE ORDNANCE MECHANIC Ot J44.9 CHRONIC OBSTRUCTIVE PULMONARY DISEASE, U 11/25/2016 PHILIP GILMORE ORDNANCE MECHANIC Ot M54.5 LOW BACK PAIN 11/25/2016 PHILIP GILMORE ORDNANCE MECHANIC Ot Z79.84 PENITENTIARY (CURRENT) USE OF ORAL HYPOGLYC 11/25/2016 PHILIP GILMORE ORDNANCE MECHANIC Ot Z79.899 OTHER PENITENTIARY (CURRENT) DRUG THERAPY 11/25/2016 CODY WARE MD Ot E11.9 TYPE 2 DIABETES MELLITUS WITHOUT COMPLIC 11/25/2016 CODY WARE MD Ot F17.210 NICOTINE DEPENDENCE, CIGARETTES, UNCOMPL 11/25/2016 CODY WARE MD Ot F19.982 OTH PSYCHOACTIVE SUBSTANCE USE, UNSP W S 11/25/2016 CODY WARE MD Ot F33.9 MAJOR DEPRESSIVE DISORDER, RECURRENT, UN 11/25/2016 CODY WARE MD Ot F41.9 ANXIETY DISORDER, UNSPECIFIED 11/25/2016 CODY WARE MD Ot G24.01 DRUG INDUCED SUBACUTE DYSKINESIA 11/25/2016 CODY WARE MD Ot G89.29 OTHER CHRONIC PAIN 11/25/2016 CODY WARE MD Ot I10 ESSENTIAL (PRIMARY) HYPERTENSION 11/25/2016 CODY WARE MD Ot J44.9 CHRONIC OBSTRUCTIVE PULMONARY DISEASE, U 11/25/2016 CODY WARE MD Ot M54.5 LOW BACK PAIN 11/25/2016 CODY WARE MD Ot R10.84 GENERALIZED ABDOMINAL PAIN 11/25/2016 CODY WARE MD Ot R41.82 ALTERED MENTAL STATUS, UNSPECIFIED 11/25/2016 CODY WARE MD Ot T44.3X1A POISONING BY OTH PARASYMPATH AND SPASMOL 11/25/2016 CODY WARE MD Ot T48.1X1A POISONING BY SKELETAL MUSCLE RELAXANTS, 11/25/2016 CODY WARE MD Ot Z79.84 PENITENTIARY (CURRENT) USE OF ORAL HYPOGLYC 11/25/2016 CODY WARE MD Ot Z79.899 OTHER HYDRAULIC JACK ADJUSTER (CURRENT) DRUG THERAPY 11/25/2016 CODY WARE MD Ot E11.9 TYPE 2 DIABETES MELLITUS WITHOUT COMPLIC 11/25/2016 CODY WARE MD Ot F17.210 NICOTINE DEPENDENCE, CIGARETTES, UNCOMPL 11/25/2016 CODY WARE MD Ot F19.982 OTH PSYCHOACTIVE SUBSTANCE USE, UNSP W S 11/25/2016 CODY WARE MD Ot F33.9 MAJOR DEPRESSIVE DISORDER, RECURRENT, UN 11/25/2016 CODY AWRE MD Ot F41.9 ANXIETY DISORDER, UNSPECIFIED 11/25/2016 CODY WARE MD Ot G24.01 DRUG INDUCED SUBACUTE DYSKINESIA 11/25/2016 CODY WARE MD Ot G89.29 OTHER CHRONIC PAIN 11/25/2016 CODY WARE MD Ot I10 ESSENTIAL (PRIMARY) HYPERTENSION 11/25/2016 CODY WARE MD Ot J44.9 CHRONIC OBSTRUCTIVE PULMONARY DISEASE, U 11/25/2016 CODY WARE MD Ot M54.5 LOW BACK PAIN 11/25/2016 CODY WARE MD Ot R10.84 GENERALIZED ABDOMINAL PAIN 11/25/2016 CODY WARE MD Ot R41.82 ALTERED MENTAL STATUS, UNSPECIFIED 11/25/2016 CODY WARE MD Ot T44.3X1A POISONING BY OTH PARASYMPATH AND SPASMOL 11/25/2016 CODY WARE MD Ot T48.1X1A POISONING BY SKELETAL MUSCLE RELAXANTS, 11/25/2016 CODY WARE MD Ot Z79.84 PENITENTIARY (CURRENT) USE OF ORAL HYPOGLYC 11/25/2016 CODY WARE MD Ot Z79.899 OTHER HYDRAULIC JACK ADJUSTER (CURRENT) DRUG THERAPY 12/11/2016 PAMELA SHARPE DO Ot M54.16 RADICULOPATHY, LUMBAR REGION 12/11/2016 PAMELA SHARPE DO Ot M54.16 RADICULOPATHY, LUMBAR REGION 12/11/2016 PAMELA SHARPE DO Ot M54.16 RADICULOPATHY, LUMBAR REGION 01/03/2017 PAMELA SHARPE DO Ot M47.816 SPONDYLOSIS W/O MYELOPATHY OR RADICULOPA 01/07/2017 PAMELA SHARPE DO Ot M54.16 RADICULOPATHY, LUMBAR REGION 02/04/2017 SRUTHI SCHUMACHER DO Ot G89.29 OTHER CHRONIC PAIN 02/04/2017 SRUTHI SCHUMACHER DO Ot M79.605 PAIN IN LEFT LEG 02/04/2017 SRUTHI SCHUMACHER DO Ot M79.89 OTHER SPECIFIED SOFT TISSUE DISORDERS 02/04/2017 SRUTHI SCHUMACHER DO Ot Z98.890 OTHER SPECIFIED POSTPROCEDURAL STATES 02/10/2017 SRUTHI SCHUMACHER DO Ot G89.29 OTHER CHRONIC PAIN 02/10/2017 SRUTHI SCHUMACHER DO Ot M79.605 PAIN IN LEFT LEG 02/10/2017 SRUTHI SCHUMACHER DO Ot M79.89 OTHER SPECIFIED SOFT TISSUE DISORDERS 02/10/2017 SRUTHI SCHUMACHER DO Ot Z98.890 OTHER SPECIFIED POSTPROCEDURAL STATES 05/02/2017 PAMELA SHARPE DO Ot M47.816 SPONDYLOSIS W/O MYELOPATHY OR RADICULOPA 05/24/2017 SWEET PA, OSCAR R Ot M47.814 SPONDYLOSIS W/O MYELOPATHY OR RADICULOPA 05/24/2017 SWEET PA, OSCAR R Ot M51.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, 05/24/2017 SWEET PA, OSCAR R Ot M54.2 CERVICALGIA 06/07/2017 SWEET PA, OSCAR R Ot M47.814 SPONDYLOSIS W/O MYELOPATHY OR RADICULOPA 06/07/2017 SWEET PA, OSCAR R Ot M51.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, 06/07/2017 SWEET PA, OSCAR R Ot M54.2 CERVICALGIA 06/12/2017 SWEET PA, OSCAR R Ot M54.2 CERVICALGIA 06/12/2017 SWEET PA, OSCAR R Ot M54.6 PAIN IN THORACIC SPINE 07/22/2017 SWEET PA, OSCAR R Ot M54.2 CERVICALGIA 07/22/2017 SWEET PA, OSCAR R Ot M54.6 PAIN IN THORACIC SPINE Procedures Code Description [place] [address] ROUTINE VENIPUNCTURE 01/12/2014 61837 A1C (IN-HOUSE) 01/12/2014 02274 MICRO ALBUMIN-IN HOUSE 01/12/2014 67855 CBC 01/12/2014 [id number] GFR CALC (RESULT ONLY) 01/12/2014 78309 CMP 01/12/2014 54454 LIPID PANEL 01/12/2014 69375 TSH 01/12/2014 55661 AMERITOX 01/14/2014 91620 A1C (IN-HOUSE) 05/04/2014 03124 ROUTINE VENIPUNCTURE 06/03/[address] HEAD/BRAIN W/O & W/DYE 06/03/2014 92441 CBC 06/03/2014 1182389 GFR CALC (RESULT ONLY) 06/03/2014 06048 CMP 06/03/2014 07469 XRAY LUMBAR SPINE 2 OR 3 VIEWS 07/06/2014 J1885 TORADOL INJ 07/06/2014 76015 PSYCH DIAGNOSTIC EVALUATION 10/04/2014 Results Test Result Range Serum or plasma salicylates measurement (mass/volume) - 11/25/16 00:55 Serum or plasma salicylates measurement (mass/volume) < mg/dL 5.0-20.0 Serum or plasma acetaminophen measurement (mass/volume) - 11/25/16 00:55 Serum or plasma acetaminophen measurement (mass/volume) < ug/mL 10-30 Serum or plasma ethanol measurement (mass/volume) - 11/25/16 00:55 Serum or plasma ethanol measurement (mass/volume) < mg/dL <10 Complete blood count (CBC) with automated white blood cell (WBC) differential - 11/25/16 00:55 Blood leukocytes automated count (number/volume) 8.6 10*3/uL 4.3-11.0 Blood erythrocytes automated count (number/volume) 3.31 10*6/uL 4.35-5.85 Venous blood hemoglobin measurement (mass/volume) 10.9 g/dL 11.5-16.0 Blood hematocrit (volume fraction) 33 % 35-52 Automated erythrocyte mean corpuscular volume 99 [foz_us] 80-99 Automated erythrocyte mean corpuscular hemoglobin (mass per erythrocyte) 33 pg 25-34 Automated erythrocyte mean corpuscular hemoglobin concentration measurement ( mass/volume) 33 g/dL 32-36 Automated erythrocyte distribution width ratio 13.0 % 10.0-14.5 Automated blood platelet count (count/volume) 239 10*3/uL 130-400 Automated blood platelet mean volume measurement 10.6 [foz_us] 7.4-10.4 Automated blood neutrophils/100 leukocytes 81 % 42-75 Automated blood lymphocytes/100 leukocytes 16 % 12-44 Blood monocytes/100 leukocytes 3 % 0-12 Automated blood eosinophils/100 leukocytes 0 % 0-10 Automated blood basophils/100 leukocytes 0 % 0-10 Blood neutrophils automated count (number/volume) 6.9 10*3 1.8-7.8 Blood lymphocytes automated count (number/volume) 1.4 10*3 1.0-4.0 Blood monocytes automated count (number/volume) 0.3 10*3 0.0-1.0 Automated eosinophil count 0.0 10*3/uL 0.0-0.3 Automated blood basophil count (count/volume) 0.0 10*3/uL 0.0-0.1 Comprehensive metabolic panel - 11/25/16 00:55 Serum or plasma sodium measurement (moles/volume) 139 mmol/L 135-145 Serum or plasma potassium measurement (moles/volume) 4.5 mmol/L 3.6-5.0 Serum or plasma chloride measurement (moles/volume) 111 mmol/L 98-107 Carbon dioxide 17 mmol/L 21-32 Serum or plasma anion gap determination (moles/volume) 11 mmol/L 5-14 Serum or plasma urea nitrogen measurement (mass/volume) 19 mg/dL 7-18 Serum or plasma creatinine measurement (mass/volume) 1.01 mg/dL 0.60-1.30 Serum or plasma urea nitrogen/creatinine mass ratio 19 NRG Serum or plasma creatinine measurement with calculation of estimated glomerular filtration rate 57 NRG Serum or plasma glucose measurement (mass/volume) 261 mg/dL 70-105 Serum or plasma calcium measurement (mass/volume) 9.3 mg/dL 8.5-10.1 Serum or plasma total bilirubin measurement (mass/volume) 0.2 mg/dL 0.1-1.0 Serum or plasma alkaline phosphatase measurement (enzymatic activity/volume) 73 U/L 40-136 Serum or plasma aspartate aminotransferase measurement (enzymatic activity/ volume) 12 U/L 5-34 Serum or plasma alanine aminotransferase measurement (enzymatic activity/volume ) 17 U/L 0-55 Serum or plasma protein measurement (mass/volume) 6.6 g/dL 6.4-8.2 Serum or plasma albumin measurement (mass/volume) 4.0 g/dL 3.2-4.5 Urine drug screening test - 11/25/16 01:15 Urine phencyclidine detection by screening method NEGATIVE NEGATIVE Urine benzodiazepines detection by screening method NEGATIVE NEGATIVE Urine cocaine detection NEGATIVE NEGATIVE Urine amphetamines detection by screening method NEGATIVE NEGATIVE Urine methamphetamine detection by screening method NEGATIVE NEGATIVE Urine cannabinoids detection by screening method NEGATIVE NEGATIVE Urine opiates detection by screening method POSITIVE NEGATIVE Urine barbiturates detection NEGATIVE NEGATIVE Screening urine tricyclic antidepressants detection NEGATIVE NEGATIVE Urine methadone detection by screening method NEGATIVE NEGATIVE Urine oxycodone detection NEGATIVE NEGATIVE Urine propoxyphene detection NEGATIVE NEGATIVE Complete urinalysis with reflex to culture - 11/25/16 01:15 Urine color determination YELLOW NRG Urine clarity determination CLEAR NRG Urine pH measurement by test strip 7 5-9 Specific gravity of urine by test strip 1.005 1.016- 1.022 Urine protein assay by test strip, semi-quantitative NEGATIVE NEGATIVE Urine glucose detection by automated test strip NEGATIVE NEGATIVE Erythrocytes detection in urine sediment by light microscopy NEGATIVE NEGATIVE Urine ketones detection by automated test strip NEGATIVE NEGATIVE Urine nitrite detection by test strip NEGATIVE NEGATIVE Urine total bilirubin detection by test strip NEGATIVE NEGATIVE Urine urobilinogen measurement by automated test strip (mass/volume) NORMAL NORMAL Urine leukocyte esterase detection by dipstick NEGATIVE NEGATIVE Automated urine sediment erythrocyte count by microscopy (number/high power field) NONE NRG Automated urine sediment leukocyte count by microscopy (number/high power field ) NONE NRG Bacteria detection in urine sediment by light microscopy NEGATIVE NRG Squamous epithelial cells detection in urine sediment by light microscopy RARE NRG Crystals detection in urine sediment by light microscopy NONE NRG Casts detection in urine sediment by light microscopy NONE NRG Mucus detection in urine sediment by light microscopy NEGATIVE NRG Complete urinalysis with reflex to culture NO NRG Complete blood count (CBC) with automated white blood cell (WBC) differential - 02/04/17 17:35 Blood leukocytes automated count (number/volume) 8.8 10*3/uL 4.3-11.0 Blood erythrocytes automated count (number/volume) 2.95 10*6/uL 4.35-5.85 Venous blood hemoglobin measurement (mass/volume) 9.7 g/dL 11.5-16.0 Blood hematocrit (volume fraction) 29 % 35-52 Automated erythrocyte mean corpuscular volume 100 [foz_us] 80-99 Automated erythrocyte mean corpuscular hemoglobin (mass per erythrocyte) 33 pg 25-34 Automated erythrocyte mean corpuscular hemoglobin concentration measurement ( mass/volume) 33 g/dL 32-36 Automated erythrocyte distribution width ratio 13.1 % 10.0-14.5 Automated blood platelet count (count/volume) 372 10*3/uL 130-400 Automated blood platelet mean volume measurement 9.3 [foz_us] 7.4-10.4 Automated blood neutrophils/100 leukocytes 57 % 42-75 Automated blood lymphocytes/100 leukocytes 35 % 12-44 Blood monocytes/100 leukocytes 7 % 0-12 Automated blood eosinophils/100 leukocytes 2 % 0-10 Automated blood basophils/100 leukocytes 0 % 0-10 Blood neutrophils automated count (number/volume) 5.0 10*3 1.8-7.8 Blood lymphocytes automated count (number/volume) 3.0 10*3 1.0-4.0 Blood monocytes automated count (number/volume) 0.6 10*3 0.0-1.0 Automated eosinophil count 0.2 10*3/uL 0.0-0.3 Automated blood basophil count (count/volume) 0.0 10*3/uL 0.0-0.1 Comprehensive metabolic panel - 02/04/17 17:35 Serum or plasma sodium measurement (moles/volume) 137 mmol/L 135-145 Serum or plasma potassium measurement (moles/volume) 4.1 mmol/L 3.6-5.0 Serum or plasma chloride measurement (moles/volume) 102 mmol/L 98-107 Carbon dioxide 22 mmol/L 21-32 Serum or plasma anion gap determination (moles/volume) 13 mmol/L 5-14 Serum or plasma urea nitrogen measurement (mass/volume) 11 mg/dL 7-18 Serum or plasma creatinine measurement (mass/volume) 0.72 mg/dL 0.60-1.30 Serum or plasma urea nitrogen/creatinine mass ratio 15 NRG Serum or plasma creatinine measurement with calculation of estimated glomerular filtration rate > NRG Serum or plasma glucose measurement (mass/volume) 104 mg/dL 70-105 Serum or plasma calcium measurement (mass/volume) 9.4 mg/dL 8.5-10.1 Serum or plasma total bilirubin measurement (mass/volume) 0.4 mg/dL 0.1-1.0 Serum or plasma alkaline phosphatase measurement (enzymatic activity/volume) 114 U/L 40-136 Serum or plasma aspartate aminotransferase measurement (enzymatic activity/ volume) 17 U/L 5-34 Serum or plasma alanine aminotransferase measurement (enzymatic activity/volume ) 18 U/L 0-55 Serum or plasma protein measurement (mass/volume) 6.5 g/dL 6.4-8.2 Serum or plasma albumin measurement (mass/volume) 3.7 g/dL 3.2-4.5 PT panel in platelet poor plasma by coagulation assay - 02/04/17 17:35 Prothrombin time (PT) in platelet poor plasma by coagulation assay 13.2 s 12.2-14.7 INR in platelet poor plasma or blood by coagulation assay 1.0 0.8-1.4 Activated partial thromboplastin time (aPTT) in platelet poor plasma bycoagulation assay - 02/04/17 17:35 Activated partial thromboplastin time (aPTT) in platelet poor plasma bycoagulation assay 33 s 24-35 Serum or plasma lithium measurement (moles/volume) - 02/04/17 17:35 BNP level 18.2 pg/mL <100.0 Influenza virus A and B antigen detection - 08/01/17 20:01 CALL POSITIVES (F1 HELP) QUINTON RENEE FLU RESULT POSITIVE FOR INFLUENZA A ANTIGEN, NEG FOR B ANTIGEN, BY JOSEPH RENEE Encounters ACCT No. Visit Date/Time Discharge Status Pt. Type Provider Facility Loc./Unit Complaint [id number] 10/04/2014 14:43:00 10/04/2014 23:59:59 CLS Outpatient PERRI BHATIA, FILIPPO Crain [id number] 09/03/2014 13:47:00 09/03/2014 23:59:59 CLS Outpatient MADL ORDNANCE MECHANIC ANGE L [id number] 08/06/2014 13:54:00 08/06/2014 23:59:59 CLS Outpatient MADL ORDNANCE MECHANIC ANGE L [id number] 07/06/2014 08:37:00 07/06/2014 23:59:59 CLS Outpatient ADALBERTO JIN DO [id number] 06/22/2014 11:35:00 06/22/2014 23:59:59 CLS Outpatient MADL ORDNANCE MECHANIC ANGE L [id number] 06/03/2014 08:57:00 06/03/2014 23:59:59 CLS Outpatient ADALBERTO JIN DO [id number] 05/04/2014 10:13:00 05/04/2014 23:59:59 CLS Outpatient MADL ORDNANCE MECHANIC, ANGE L [id number] 04/06/2014 09:00:00 04/06/2014 23:59:59 CLS Outpatient ADALBERTO JIN DO [id number] 03/09/2014 09:56:00 03/09/2014 23:59:59 CLS Outpatient MADL ORDNANCE MECHANIC ANGE L [id number] 02/04/2014 10:37:00 02/04/2014 23:59:59 CLS Outpatient MADL ORDNANCE MECHANICAPRIL BlackburnA L [id number] 01/12/2014 09:01:00 01/12/2014 23:59:59 CLS Outpatient ADALBERTO JIN DO [id number] 07/16/2017 14:14:00 07/16/2017 23:59:59 CLS Outpatient OSCAR MARTIN [facility] REHAB NECK AND THORACIC PAIN [id number] 05/02/2017 10:38:00 05/02/2017 23:59:59 CLS Outpatient OSCAR MARTIN [facility] RAD NECK PAIN,THORACIC PAIN [id number] 02/04/2017 16:56:00 02/04/2017 18:18:00 DIS Emergency SRUTHI SCHUMACHER DO [facility] ER LT LEG SWELLING POST BACK SURG 01/28 [id number] 12/31/2016 13:43:00 01/07/2017 11:09:00 DIS Outpatient ANNEMARIE PAMELA [facility] REHAB LUMBAR RADICULOPATHY [id number] 12/13/2016 15:24:00 12/13/2016 23:59:59 CLS Outpatient ANNEMARIE MARQUEZ PAMELA Joseph [facility] RAD BACK PAIN [id number] 11/25/2016 03:50:00 11/25/2016 11:40:00 DIS Inpatient CHAZ GARCIA, CODY Ruiz [facility] 4TH AMS; SUSPECTED OPIATE MISUSE [id number] 11/22/2016 15:52:00 11/22/2016 17:30:00 DIS Emergency PHILIP GILMORE ORDNANCE MECHANIC [facility] ER BACK PAIN [id number] 06/13/2016 15:34:00 06/13/2016 19:09:00 DIS Emergency GINI MULTANI MD [facility] ER BACK PAIN [id number] 06/23/2015 13:39:00 06/23/2015 16:15:00 DIS Emergency PHILIP GILMORE ORDNANCE MECHANIC [facility] ER COUGH [id number] 06/20/2014 16:41:00 06/20/2014 16:54:00 DIS Emergency PHILIP GILMORE ORDNANCE MECHANIC [facility] ER DENTAL PAIN [id number] 08/01/2017 20:31:00 Document Registration [id number] 06/20/2014 16:42:00 Document Registration [id number] 08/14/2012 21:29:00 Document Registration
== END 2017-08-01 21:02 | disposition home or self-care (01) ==
LOC: EDUNIT# 18:49 → ER 18:50
DX: J10.1 Influenza due to other identified influenza virus with other respiratory manifestations (principal); J44.9 Chronic obstructive pulmonary disease, unspecified; E78.00 Pure hypercholesterolemia, unspecified; I10 Essential (primary) hypertension; K21.9 Gastro-esophageal reflux disease without esophagitis; E11.9 Type 2 diabetes mellitus without complications; G43.909 Migraine, unspecified, not intractable, without status migrainosus; F41.9 Anxiety disorder, unspecified; F32.9 Major depressive disorder, single episode, unspecified; Z88.8 Allergy status to other drugs, medicaments and biological substances; Z79.52 Long term (current) use of systemic steroids; Z90.710 Acquired absence of both cervix and uterus; Z98.51 Tubal ligation status; Z90.89 Acquired absence of other organs
CPT/HCPCS: 71045; 87804; 94640; 99283

== ENCOUNTER → 2017-12-07 | Outpatient (CLI) | payer MEDICARE, MEDICAID ==
[~2017-12-07] MED LIST changes: +BENZ200C51 PO; +GADOBUTROL 10 MMOL/10 ML (GADAVIST) VIAL IV ONE
[2017-12-07 10:03] LABS: BUN/CREATININE RATIO 17; CALCIUM 9.7 MG/DL (8.5-10.1); CARBON DIOXIDE 23 MMOL/L (21-32); CHLORIDE 106 MMOL/L (98-107); CREATININE SERUM 0.81 MG/DL (0.60-1.30); GFR ESTIMATED > 60; GLUCOSE 128 MG/DL (70-105); POTASSIUM 4.4 MMOL/L (3.6-5.0); SODIUM 141 MMOL/L (135-145)
--- NOTE | 2017-12-07 12:14 | Diagnostic Imaging Report ---
PROCEDURE: MR imaging of the brain with and without contrast. TECHNIQUE: Multiplanar, multisequence MR imaging of the brain was performed with and without contrast. INDICATION: CVA, right-sided weakness, slurred speech, dizziness with difficulty walking. COMPARISON: CT head from 11/25/2016 FINDINGS: Motion artifact is seen on multiple sequences. The ventricles and cortical sulci are mildly prominent. There is no midline shift or mass effect identified. No intraparenchymal or extraaxial hemorrhage or fluid collection is identified. There is no acute ischemia. No masses or parenchymal lesions are seen. No enhancement abnormality is seen. The midline craniocervical anatomy is unremarkable. The major expected intracranial flow voids are seen. There are no focal calvarial lesions. Visualized paranasal sinuses demonstrate normal signal. A small amount of fluid is seen in the mastoid air cells. IMPRESSION: 1. No acute intracranial abnormalities. No acute ischemia, focal intra-axial mass or acute hemorrhage. 2. Mild generalized parenchymal volume loss. Dictated by: Dictated on workstation # [id number]
== END ==
LOC: RAD 09:04
PROVIDERS: ATTEND Family Medicine
DX: G93.89 Other specified disorders of brain (principal); I63.9 Cerebral infarction, unspecified; R47.81 Slurred speech
CPT/HCPCS: 36415; 70553; 80048

== ENCOUNTER 2019-08-16 21:23 | Inpatient (IN) | payer MEDICARE, MEDICAID ==
[~2019-08-16] VITALS: Ht 170 cm; Wt 107.0 kg
[2019-08-16 21:23] VITALS: BP 109/53
[~2019-08-16 21:23] MED LIST changes: +ACHYD1T PO; -GADOBUTROL 10 MMOL/10 ML (GADAVIST) VIAL IV ONE; -HYDR-3820 PO; -OMEP20CA12 PO; +OMEP20CA18 PO; +SIMV40TA25 PO; -SIMV40TA4 PO; -TRAM50TA2 PO; +TRM50T PO
[2019-08-16 21:26] VITALS: BP 109/53
[2019-08-16 21:58] LABS: BASOPHILS % (AUTO) 0 % (0-10); EOSINOPHILS # (AUTO) 0.1 10^3/uL (0.0-0.3); EOSINOPHILS % (AUTO) 1 % (0-10); HEMATOCRIT 47 % (35-52); HEMOGLOBIN 16.3 G/DL (11.5-16.0); LYMPHOCYTES # (AUTO) 4.4 X 10^3 (1.0-4.0); LYMPHOCYTES % (AUTO) 55 % (12-44); MEAN CORPUSCULAR HEMOGLOBIN 33 PG (25-34); MEAN CORPUSCULAR HGB CONC 35 G/DL (32-36); MEAN CORPUSCULAR VOLUME 94 FL (80-99); MEAN PLATELET VOLUME 9.2 FL (7.4-10.4); MONOCYTES # (AUTO) 0.2 X 10^3 (0.0-1.0); MONOCYTES % (AUTO) 2 % (0-12); NEUTROPHILS # (AUTO) 3.4 X 10^3 (1.8-7.8); NEUTROPHILS % (AUTO) 42 % (42-75); PLATELET COUNT 390 10^3/uL (130-400); RED CELL DISTRIBUTION WIDTH 13.3 % (10.0-14.5)
--- NOTE | 2019-08-16 22:00 | NUR ---
Central line placement to the Right IJ completed per Dr. Kat.
[2019-08-16 22:01] LABS: BILIRUBIN,URINE NEGATIVE (NEGATIVE); CLARITY,URINE CLEAR; COLOR,URINE YELLOW; GLUCOSE, URINE (UA) NEGATIVE (NEGATIVE); KETONES,URINE NEGATIVE (NEGATIVE); LEUKOCYTE ESTERASE ,URINE NEGATIVE (NEGATIVE); NITRITE,URINE NEGATIVE (NEGATIVE); PROTEIN,URINE NEGATIVE (NEGATIVE)
[2019-08-16 22:09] LABS: BACTERIA,URINE NEGATIVE /HPF; SQUAMOUS EPITHELIAL CELL,UR 0-2 /HPF
[2019-08-16 22:09] LABS: ALBUMIN 3.8 GM/DL (3.2-4.5); BILIRUBIN,TOTAL 0.3 MG/DL (0.1-1.0); CREATININE SERUM 1.17 MG/DL (0.60-1.30); POTASSIUM 4.4 MMOL/L (3.6-5.0); TOTAL PROTEIN 6.6 GM/DL (6.4-8.2)
[2019-08-16] MEDS ORDERED: NS IV 1000 ML 1,000 ML IV ONE (22:10)
[2019-08-16] MEDS ORDERED: NS IV 1000 ML 1,000 ML IV SCH ×2 (22:10→22:19)
[2019-08-16 22:13] LABS: INR 1.3 (0.8-1.4); PROTHROMBIN TIME PATIENT 16.4 SEC (12.2-14.7)
[2019-08-16] MEDS ORDERED: CEFEPIME INJECTION 1,000 MG in WATER (STERILE) FOR INJECTION 10 ML IV ONE (22:15)
[2019-08-16] MEDS ORDERED: VANCOMYCIN INJECTION 1,000 MG in NS (IVPB) 250 ML IV ONE (22:15)
--- NOTE | 2019-08-16 22:19 | ED Neurological Problem ---
General Chief Complaint: Unresponsive Stated Complaint: LOC, ALT MENTAL STATUS Source: patient Exam Limitations: no limitations (VICENTE KAT) History of Present Illness Date Seen by Provider: Aug 16, 2019 Time Seen by Provider: 21:20 Initial Comments Patient presents ER by [facility] with chief complaint altered mental status. Boyfriend was at the house and called the ambulance. Unknown last time she was well. She does have a history of overdoses in the past. She has diazepam listed on her medical list. She will answer questions yes or no but is stuporous. She says she has diarrhea. EMS says the boyfriend was unhelpful with any history. She does not give any further history just says she's been sick with diarrhea. (VICENTE KAT) Initial Comments Family members further reports that the patient had diarrheal illness for about 45 days earlier this week with one or 2 days clear and then return of this illness tonight. She apparently was doing okay earlier in the day but then started feeling bad. She went to sleep and then woke up and ate spaghetti. Afterwards she had persistent profound diarrhea and altered mental status. Ultimately she became more altered and EMS was summoned. History of diabetes but not on insulin currently. Does have history of chronic back pain and is on narcotic. Does also have history of hypertension and high cholesterol. Timing/Duration: 1 week, waxing and waning Severity: severe Associated Symptoms: confusion, nausea/vomiting, slurred speech, weakness (SHENA KELLY MD) Allergies and Home Medications Allergies Coded Allergies: Influenza Virus Vaccines (Verified Allergy, Unknown, 08/16/19) Patient Home Medication List Home Medication List Reviewed: Yes (VICENTE KAT) Home Medication List Reviewed: Yes (SHENA KELLY MD) Review of Systems Review of Systems Constitutional: see HPI Respiratory: other (appearant respiratory distress) Gastrointestinal: abdominal pain, diarrhea Psychiatric/Neurological: Weakness, Other (maltered mental status) Unable to complete review of systems due to altered mental status (SHENA KELLY MD) Past Zvgbkau-Cnzdhy-Iimobl Hx Past Med/Social Hx: Reviewed Nursing Past Med/Soc Hx (SHENA KELLY MD) Patient Social History Recent Foreign Travel: No Contact w/Someone Who Travel: No (ISAIAH,VICENTE J) Family Medical History Reviewed Nursing Family Hx (SHENA KELLY MD) Physical Exam Vital Signs Vital Signs - First Documented 08/16/19 08/16/19 22:46 23:13 Pulse 141 B/P (MAP) 77/40 (SHENA KELLY MD) Vital Signs Capillary Refill : (VICENTE KAT) Height, Weight, BMI Height: '" Weight: lbs. oz. kg; BMI Method: (VICENTE KAT) General Appearance: severe distress, obese HEENT: PERRL/EOMI (4 mm bilaterally and), TMs normal, other (dry mucous membranes) Neck: full range of motion, supple Respiratory: lungs clear, decreased breath sounds Cardiovascular: no murmur, tachycardia Peripheral Pulses: 1+ Radial Pulses (R), 1+ Radial Pulses (L) Gastrointestinal: non tender, soft, distended Extremities: non-tender, no pedal edema Neurologic/Psychiatric: other (waxing and waning orientation and mentation with occasional orientation to person and place. Overall GCS 12 due to confusion) Crainal Nerves: PERRL, abnormal speech Skin: normal color, warm/dry (SHENA KELLY MD) Focused Exam Lactate Level 08/16/19 21:48: Lactic Acid Level 5.85*H (SHENA KELLY MD) Lactic Acid Level Laboratory Tests Test 08/16/19 21:48 Lactic Acid Level 5.85 MMOL/L (0.50-2.00) *H (SHENA KELLY MD) Procedures/Interventions Lumen: triple Central Line Procedure: betadine prep (chlorhexidine prep), sterile drapes applied, sterile dressing applied Position: internal jugular (R) Anesthesia: Lidocaine Volume Anesthetic (ccs): 3 Complications: none Post Position: sutured, good blood return, position confirmed w/ CXR Emergency consent was obtained. Family was informed. Patient was positioned and put into Trendelenburg as her internal jugulars were flaccid. Using ultrasound guidance in the usual sterile fashion we were able to introduce a needle into her right IJ and thread a guidewire on first attempt. We made a small incision using the provided 11 blade. Dilated her and then placed the central lumen of the pre-flushed lumen catheter over the guidewire at 15 cm. Removed the guidewire and stitched in place. No ectopy was noticed on the monitor. Patient tolerated procedure well. Sutured in place and placed the Biopatch gel and sterile dressing. Terminates in the superior vena cava just superior to the right atria. Does not cross the midline. No pneumothorax (VICENTE KAT) Date of ETT Placement: Aug 16, 2019 Time of ETT Placement: 22:50 Intubation Method: orotracheal Tube Size: 7.5 Medications: Succinylcholine Positive End Tide CO2: Yes Breath Sounds after Intubation: bilateral-equal Intubation Complications: no complications Post Intubation Xray: Yes ET tube at rosmery. Tube pulled back 2 cm (SHENA KELLY MD) Progress/Results/Core Measures Results/Orders Lab Results Laboratory Tests Test 08/16/19 21:38 08/16/19 21:48 Range/Units White Blood Count 8.0 4.3-11.0 10^3/uL Red Blood Count 4.99 4.35-5.85 10^6/uL Hemoglobin 16.3 H 11.5-16.0 G/DL Hematocrit 47 35-52 % Mean Corpuscular Volume 94 80-99 FL Mean Corpuscular Hemoglobin 33 25-34 PG Mean Corpuscular Hemoglobin Concent 35 32-36 G/DL Red Cell Distribution Width 13.3 10.0-14.5 % Platelet Count 390 130-400 10^3/uL Mean Platelet Volume 9.2 7.4-10.4 FL Neutrophils (%) (Auto) 42 42-75 % Lymphocytes (%) (Auto) 55 H 12-44 % Monocytes (%) (Auto) 2 0-12 % Eosinophils (%) (Auto) 1 0-10 % Basophils (%) (Auto) 0 0-10 % Neutrophils # (Auto) 3.4 1.8-7.8 X 10^3 Lymphocytes # (Auto) 4.4 H 1.0-4.0 X 10^3 Monocytes # (Auto) 0.2 0.0-1.0 X 10^3 Eosinophils # (Auto) 0.1 0.0-0.3 10^3/uL Basophils # (Auto) 0.0 0.0-0.1 10^3/uL Prothrombin Time 16.4 H 12.2-14.7 SEC INR Comment 1.3 0.8-1.4 Activated Partial Thromboplast Time 36 H 24-35 SEC Sodium Level 122 *L 135-145 MMOL/L Potassium Level 4.4 3.6-5.0 MMOL/L Chloride Level 93 L 98-107 MMOL/L Carbon Dioxide Level 9 *L 21-32 MMOL/L Anion Gap 20 H 5-14 MMOL/L Blood Urea Nitrogen 12 7-18 MG/DL Creatinine 1.17 0.60-1.30 MG/DL Estimat Glomerular Filtration Rate 48 BUN/Creatinine Ratio 10 Glucose Level 251 H 70-105 MG/DL Calcium Level 9.0 8.5-10.1 MG/DL Corrected Calcium 9.2 8.5-10.1 MG/DL Total Bilirubin 0.3 0.1-1.0 MG/DL Aspartate Amino Transf (AST/SGOT) 32 5-34 U/L Alanine Aminotransferase (ALT/SGPT) 27 0-55 U/L Alkaline Phosphatase 92 40-136 U/L Total Protein 6.6 6.4-8.2 GM/DL Albumin 3.8 3.2-4.5 GM/DL Triglycerides Level 155 H <150 MG/DL Urine Color YELLOW Urine Clarity CLEAR Urine pH 7.0 5-9 Urine Specific [place] <=1.005 1.016-1.022 Urine Protein NEGATIVE NEGATIVE Urine Glucose (UA) NEGATIVE NEGATIVE Urine Ketones NEGATIVE NEGATIVE Urine Nitrite NEGATIVE NEGATIVE Urine Bilirubin NEGATIVE NEGATIVE Urine Urobilinogen 0.2 < = 1.0 MG/DL Urine Leukocyte Esterase NEGATIVE NEGATIVE Urine RBC (Auto) NEGATIVE NEGATIVE Urine RBC NONE /HPF Urine WBC NONE /HPF Urine Squamous Epithelial Cells 0-2 /HPF Urine Crystals NONE /LPF Urine Bacteria NEGATIVE /HPF Urine Casts NONE /LPF Urine Mucus NEGATIVE /LPF Urine Culture Indicated CULTURE PENDING Lactic Acid Level 5.85 *H 0.50-2.00 MMOL/L Urine Opiates Screen NEGATIVE NEGATIVE Urine Oxycodone Screen POSITIVE H NEGATIVE Urine Methadone Screen NEGATIVE NEGATIVE Urine Propoxyphene Screen NEGATIVE NEGATIVE Urine Barbiturates Screen NEGATIVE NEGATIVE Ur Tricyclic Antidepressants Screen NEGATIVE NEGATIVE Urine Phencyclidine Screen NEGATIVE NEGATIVE Urine Amphetamines Screen NEGATIVE NEGATIVE Urine Methamphetamines Screen NEGATIVE NEGATIVE Urine Benzodiazepines Screen POSITIVE H NEGATIVE Urine Cocaine Screen NEGATIVE NEGATIVE Urine Cannabinoids Screen NEGATIVE NEGATIVE (SHENA KELLY MD) Micro Results Microbiology 08/16/19 Influenza Types A,B Antigen (GLENN) - Final, Complete (SHENA KELLY MD) My Orders Orders - SHENA KELLY MD Propofol Drip (Icu) (Diprivan Drip (Icu) (08/16/19 23:02) Ct Angio Chst/Abd/Pelv W (08/16/19 23:05) Piperacillin Sodium/Tazobactam (Zosyn Vi (08/16/19 23:15) Propofol Drip (Icu) (Diprivan Drip (Icu) (08/16/19 23:15) Sedation Communication Q48H (08/16/19 23:05) Triglycerides (08/16/19 23:05) Triglycerides (08/18/19 23:05) Triglycerides (08/20/19 23:05) Chest 1 View, Ap/Pa Only (08/16/19 23:15) Iohexol Injection (Omnipaque 350 Mg/Ml 1 (08/16/19 23:30) Received Contrast (Hold Metformin- Contr (08/16/19 23:30) Ns (Ivpb) (Sodium Chloride 0.9% Ivpb Bag (08/16/19 23:30) (SHENA KELLY MD) Medications Given in ED Current Medications Medications Dose Ordered Sig/Raquel Route Start Time Stop Time Status Last Admin Dose Admin Norepinephrine Bitartrate 250 ml @ ud STK-MED ONCE IV 08/16/19 22:27 08/16/19 22:32 DC 08/16/19 22:46 37.5 MLS/HR Promethazine HCl 25 mg STK-MED ONCE .ROUTE 08/16/19 22:39 08/16/19 22:44 DC 08/16/19 22:48 25 MG Sodium Chloride 1,000 ml @ 0 mls/hr Q0M ONCE IV 08/16/19 22:10 08/16/19 22:14 DC 08/16/19 22:48 999 MLS/HR (SHENA KELLY MD) Vital Signs/I&O 08/16/19 08/16/19 22:46 23:13 Pulse 141 B/P (MAP) 77/40 102/86 (SHENA KELLY MD) Progress Progress Note : Time: 00:54 Progress Note We are unable to obtain a ABG earlier but a post intubation ABG demonstrates profound metabolic acidosis. Her CO2 is 43 and would like to keep her around 40 or below so we increased her ventilation to 550 and decreased her FiO2 to 40%. (VICENTE KAT) Progress Note : Progress Note Patient was seen and evaluated by Dr. Kat initially with initial emergent management including central line placement. Patient was placed on BiPAP but is increasingly sedate with markedly elevated lactic acid and concerns about airway protection. BiPAP DC'd. Patient subsequently vomited a significant amount of spaghetti. This was rapidly cleared from the airway. Patient had episodes of hypotension which persisted. Levophed initiated. Ultimately patient intubated for airway protection. Due to hypotension and concerns for sepsis, patient sedated with ketamine 1 mg/kg and paralytic with succinylcholine 100 mg. Intubation accomplished without difficulty and OG tube placed. Patient did receive 3 L of normal saline for concerns of septic shock. This exceeds 30 mL/kg ideal body weight. We will initiate Zosyn 4.5 g IV and vancomycin weight-based dosing. Postintubation sedation initially with Versed and fentanyl. We were able to initiate propofol after improvement in blood pressure control with Levophed at 0.5 mcg/kg/m with estimated weight of [address] We will get [address] of the head as well as angiogram of the chest, abdomen and pelvis due to concerns of narcotic bowel and concerns of mesenteric ischemia. CT angiogram of the chest to rule out pulmonary embolism and other intrathoracic pathology. CT head for altered mental status. I did discuss the case with Dr. Ellis at 2304. He agrees with Zosyn. 2340: Patient to CT scan. We did have to place a peripheral line for CT IV contrast. Overall patient stabilizing. I did discuss critical findings with the patient's family and gain more history at that time. (SHENA KELLY MD) Initial ECG Impression Date: Aug 17, 2019 Initial ECG Impression Time: 21:28 Initial ECG Rate: 131 Initial ECG Rhythm: S.Tach Initial ECG Intervals: Normal Initial ECG Impression: Normal Initial ECG Comparisson: No Previous ECG Available Comment Sinus tachycardia without clinically relevant ST elevation or depression. (VICENTE KAT) Diagnostic Imaging Diagonstic Imaging: CT (without IV contrast) Plain Films/CT/US/NM/MRI: c-spine, head Comments No acute intracranial findings. No C-spine fracture or subluxation. No maxillofacial changes. Reviewed: Reviewed Enzo Gross Study, Reviewed by Me Diagonstic Imaging: CT (with IV contrast) Plain Films/CT/US/NM/MRI: chest, abdomen, pelvis Comments CT chest shows. Consolidation or atelectasis in the left lower lobe and probable subsegmental atelectasis in the right lower lobe. No acute findings on the CT the abdomen and pelvis. Reviewed: Reviewed by Me (VICENTE KAT) Diagonstic Imaging: Xray Plain Films/CT/US/NM/MRI: chest Comments Central line placement and good position. Right upper lobe infiltrate concerning for aspiration. Diagonstic Imaging: Xray Plain Films/CT/US/NM/MRI: chest Comments Post intubation chest x-ray shows ET tube at rosmery and will be pulled back 2 cm. OG tube in good position with central line remaining in good position. (SHENA KELLY MD) Critical Care Note Critical Care Start Time: 21:20 Stop Time: 00:30 Total Time (minutes) 190m Progress Patient has central line placed because she had poor IV access. An interosseous was attempted but would not withdraw blood. The patient appeared to be dry with flat internal jugular so we got the central line on the right side and gave her a 3 L fluid bolus which was 30 mils per kilogram based on ideal body weight. Dr. Kelly was able to assist us by intubating the patient starting Levophed and stabilizing the patient. We were able to get him to the CT scanner to scan the head and abdomen and pelvis. Because the patient did not have a white count fever and was having diarrhea for possibility of ischemic bowel was considered so we ordered a CT angiogram. Significant improvement in the lactate from 5-3. After the ABG came back we made changes to increase her tidal volume and rate up to 550, 18. We decreased her FiO2. Ordered another ABG when she gets the ICU. (VICENTE KAT) Departure Communication (Admissions) Time/Spoke to Admitting Phy: 23:00 Discussed the case with Dr. Liz and he agrees to admit the patient. Time/Spoke to Consulting Phy: 23:04 Dr. Kelly discussed the case with Dr. Ellis. (VICENTE KAT) Impression Primary Impression: Septic shock Additional Impressions: Colitis Respiratory failure with hypoxia Qualified Codes: J96.01 - Acute respiratory failure with hypoxia Disposition: ADMITTED INPATIENT Condition: Critical Admissions Decision to Admit Reason: Admit from ER (General) Decision to Admit/Date: Aug 17, 2019 Time/Decision to Admit Time: 23:00 (VICENTE KAT) VICENTE KAT Aug 16, 2019 22:19 SHENA KELLY MD Aug 16, 2019 23:41
[2019-08-16] MEDS ORDERED: NOREPINEPHRINE 4 MG/250 ML 250 ML IV ONE (22:27)
[2019-08-16] MEDS ORDERED: PROMETHAZINE INJ 25 MG/ML (PHENERGAN) AMP ONE (22:39)
--- NOTE | 2019-08-16 22:40 | NUR ---
Dr. Woodson assumed care of the patient. Elected to intubate the patient at this time. Patient is on the bipap, decreased level of consciousness, unable to maintain airway. 2249- 100mg Ketamine 2251- Norepinephrine rate increased to 0.5mcg/kg/min for BP 72/44 2252-100mg succinylcholine 2253- 7.5 ett 24 at the lips. See physician notes for intubation detail. Verification of ETT placement via bilateral breath sounds, misting in the ETT, ETCO2 waveform capnography. 2255- 100mcg Fentanyl 2256- OG 18fr 2300-2.5mg Versed 2315-Diprivan drip initiated at 10mcg/kg/min 2330-Patient is adequately sedated and tolerating the ventilator at this time 0000-Vent settings TV-500, RR-18, FI02-40%, PEEP 5cm H2)
[2019-08-16 22:51] LABS: AMPHETAMINE SCREEN, URINE NEGATIVE (NEGATIVE); BARBITURATE SCREEN URINE NEGATIVE (NEGATIVE); BENZODIAZEPINES SCREEN URINE POSITIVE (NEGATIVE); CANNABINOID SCREEN, URINE NEGATIVE (NEGATIVE); COCAINE SCREEN URINE NEGATIVE (NEGATIVE); METHADONE STAT NEGATIVE (NEGATIVE); METHAMPHETAMINE SCREEN URINE S NEGATIVE (NEGATIVE); OPIATE SCREEN URINE NEGATIVE (NEGATIVE); OXYCODONE STAT POSITIVE (NEGATIVE); PROPOXYPHENE STAT NEGATIVE (NEGATIVE); TRICYCLIC ANTIDEPRESSANTS SCRE NEGATIVE (NEGATIVE)
[2019-08-16 22:56] VITALS: BP 125/89
[2019-08-16] MEDS ORDERED: PROPOFOL DRIP (ICU) 100 ML IV ONE (23:02)
[2019-08-16 23:06] VITALS: BP 148/88
[2019-08-16] MEDS ORDERED: PIPERACILLIN SODIUM/TAZOBACTAM 4.5 GM in NS (IVPB) 100 ML IV ONE (23:15)
[2019-08-16] MEDS ORDERED: PROPOFOL DRIP (ICU) 100 ML IV SCH (23:15)
[2019-08-16] MEDS ORDERED: HOLD METFORMIN - RECEIVED CONTRAST 20 ML VIAL IV SCH (23:30)
[2019-08-16] MEDS ORDERED: NS 100 ML (IVPB) BAG IV ONE (23:30)
[2019-08-16] MEDS ORDERED: IOHEXOL 350 MG/ML 150 ML (OMNIPAQUE 350) VIAL IV ONE (23:30)
[2019-08-17] VITALS (35 sets, daily range): BP systolic 84–130; BP diastolic 34–82
--- NOTE | 2019-08-17 00:30 | NUR ---
IV 18ga Right AC initiated per Dr. Woodson via guided ultrasound for CT angio chest/abdomen. 0100- Patient remains adequately sedated, condition remains unchanged 0115- Patient family members at the bedside 0145- Report called to Gisele BRADLEY.
[2019-08-17 00:35] LABS: ABG BASE EXCESS -11.6 MMOL/L (-2.5-2.5); ABG OXYGEN SATURATION 99 % (94-100); ABG PCO2 43 MMHG (35-45); ABG PO2 194 MMHG (79-93); ABG TCO2 16.9 MMOL/L (21.0-31.0)
[2019-08-17 00:37] LABS: ABG PH 7.18 (7.37-7.43)
[2019-08-17 00:38] LABS: ALLENS TEST YES-POS; INSPIRED O2 100%; PATIENT TEMP 35.8; VENTILATOR YES
[2019-08-17] MEDS ORDERED: NOREPINEPHRINE 4 MG/250 ML 250 ML IV ONE ×2 (00:38→03:39)
[2019-08-17] MEDS ORDERED: NS IV 1000 ML 1,000 ML IV SCH (01:00)
[2019-08-17] MEDS ORDERED: VANCOMYCIN 1000 MG/VIAL ONE ×2 (01:01→04:03)
[2019-08-17] MEDS ORDERED: NS (IVPB) 250 ML ONE ×2 (01:02→04:03)
[2019-08-17] MEDS ORDERED: RT-ALBUTEROL/IPRATROPIUM 3 ML (DUONEB) VIAL INH PRN (02:45)
[2019-08-17 03:16] LABS: ABG BASE EXCESS -10.1 MMOL/L (-2.5-2.5); ABG OXYGEN SATURATION 97 % (94-100); ABG PCO2 33 MMHG (35-45); ABG PO2 87 MMHG (79-93); ABG TCO2 16.5 MMOL/L (21.0-31.0)
[2019-08-17 03:20] LABS: ABG PH 7.29 (7.37-7.43)
[2019-08-17 03:21] LABS: ALLENS TEST YES-POS; INSPIRED O2 35%; VENTILATOR YES
[2019-08-17 03:21] LABS: BASOPHILS % (AUTO) 0 % (0-10); EOSINOPHILS % (AUTO) 0 % (0-10); HEMATOCRIT 41 % (35-52); HEMOGLOBIN 14.2 G/DL (11.5-16.0); LYMPHOCYTES % (AUTO) 3 % (12-44); MEAN CORPUSCULAR HEMOGLOBIN 32 PG (25-34); MEAN CORPUSCULAR HGB CONC 34 G/DL (32-36); MEAN CORPUSCULAR VOLUME 94 FL (80-99); MEAN PLATELET VOLUME 8.9 FL (7.4-10.4); MONOCYTES # (AUTO) 1.4 X 10^3 (0.0-1.0); MONOCYTES % (AUTO) 5 % (0-12); NEUTROPHILS # (AUTO) 27.7 X 10^3 (1.8-7.8); NEUTROPHILS % (AUTO) 92 % (42-75); PLATELET COUNT 373 10^3/uL (130-400); RED CELL DISTRIBUTION WIDTH 13.2 % (10.0-14.5)
[2019-08-17 03:38] LABS: CALCIUM 7.5 MG/DL (8.5-10.1); CREATININE SERUM 1.16 MG/DL (0.60-1.30); MAGNESIUM 1.7 MG/DL (1.6-2.4); PHOSPHORUS 1.8 MG/DL (2.3-4.7); POTASSIUM 3.8 MMOL/L (3.6-5.0)
[2019-08-17] MEDS ORDERED: ONDANSETRON 4 MG/2 ML (SDV) Z0FRAN IV PRN (03:45)
[2019-08-17] MEDS ORDERED: ACETAMINOPHEN 650 MG SUPP (TYLENOL) PR PRN (03:45)
[2019-08-17] MEDS ORDERED: PROMETHAZINE INJ 25 MG/ML (PHENERGAN) AMP IV PRN (03:45)
[2019-08-17 03:51] LABS: BAND NEUTROPHILS 12 %; LYMPHOCYTES % (MANUAL) 3 %; MONOCYTES % (MANUAL) 1 %; NEUTROPHILS % (MANUAL) 84 %; RBC MORPH NORMAL
[2019-08-17] MEDS ORDERED: VASOPRESSIN 20 UNITS/NS 100 ML DRIP IV SCH ×2 (04:00)
[2019-08-17] MEDS ORDERED: VANCOMYCIN 1 GM/NS 250 ML IVPB IV ONE ×2 (04:00)
[2019-08-17] MEDS: EPINEPHrine 1 MG INJECTION 2 MG in NS (IVPB) 248 ML IV SCH (04:03)
[2019-08-17] MEDS: NOREPINEPHRINE 4 MG/250 ML 250 ML IV SCH ×6 (04:14→23:38)
--- NOTE | 2019-08-17 05:32 | Diagnostic Imaging Report ---
INDICATION: Central line placement. COMPARISON: 08/01/2017 FINDINGS: Single frontal view of the chest demonstrates normal heart size and pulmonary vascularity. The lungs are well aerated and clear. No large pleural effusion or pneumothorax is seen. The visualized osseous structures show no acute abnormalities. Right internal jugular central venous catheter seen with tip in the high SVC. IMPRESSION: 1. No acute cardiopulmonary process. 2. Right internal jugular central venous catheter with tip in high SVC. Dictated by: Dictated on workstation # [id number]
--- NOTE | 2019-08-17 05:35 | Diagnostic Imaging Report ---
INDICATION: Intubated patient. COMPARISON: Earlier same day. FINDINGS: Single frontal radiograph view of the chest was obtained and shows interval placement of endotracheal tube, tip which terminates just below the level of the clavicular heads. Gastric tube extends inferiorly beyond the [id number]. Right internal jugular central line is again seen with tip in the high SVC. Lungs show low inspiratory volumes with probable patchy bibasilar atelectasis. There is no large effusion or pneumothorax. Cardiac silhouette and pulmonary vasculature within normal limits. IMPRESSION: 1. New lines and tubes as above. 2. Low lung volumes with probable patchy bibasilar atelectasis. Dictated by: Dictated on workstation # [id number]
--- NOTE | 2019-08-17 05:44 | Pulmonary Consultation ---
History of Present Illness History of Present Illness Date Seen by Provider: Aug 17, 2019 Time Seen by Provider: 05:39 Date of Admission History of Present Illness 59yo with hx of chronic back pain presented via EMS secondary to MS changes. EMS was called by family. She has been having diarrhea over the last 45 days. PT was intubated in the ED secondary to n/v and suspected aspiration. Pt was admitted to ICU on ventilator after central line was placed. Allergies and Home Medications Allergies Coded Allergies: Influenza Virus Vaccines (Verified Allergy, Unknown, 08/16/19) Home Medications Albuterol Sulfate 18 Gm Hfa.aer.ad, 2 PUFF PO Q4H PRN for SHORTNESS OF BREATH, (Reported) Aspirin 81 Mg Tablet.dr, 81 MG PO DAILY, (Reported) Budesonide/Formoterol Fumarate 10.2 Gm Hfa.aer.ad, 2 PUFF IH BID, (Reported) Diazepam 10 Mg Tablet, 5-10 MG PO HS, (Reported) Docusate Sodium 100 Mg Capsule, 200 MG PO DAILY, (Reported) Escitalopram Oxalate 20 Mg Tablet, 20 MG PO DAILY, (Reported) Gabapentin 600 Mg Tablet, 600 MG PO Q8H PRN for NERVE PAIN, (Reported) Hydrocodone/Acetaminophen 1 Each Tablet, 1 TAB PO Q6H PRN for PAIN-MILD (1-4), (Reported) Lisinopril 10 Mg Tablet, 10 MG PO DAILY, (Reported) Magnesium Oxide 400 Mg Tablet, 400 MG PO DAILY, (Reported) Meloxicam 15 Mg Tablet, 15 MG PO DAILY, (Reported) Metformin HCl 500 Mg Tab.er.24h, 500 MG PO DAILY, (Reported) Methocarbamol 750 Mg Tablet, 750 MG PO Q8H PRN for MUSCLE SPASMS, (Reported) Omeprazole 20 Mg Capsule.dr, 20 MG PO DAILY, (Reported) Ondansetron 4 Mg Tab.rapdis, 4 MG PO Q4H PRN for NAUSEA/VOMITING-1ST LINE, (Reported) Oxybutynin Chloride 5 Mg Tablet, 5 MG PO BID, (Reported) Simvastatin 40 Mg Tablet, 40 MG PO DAILY, (Reported) Varenicline Tartrate 1 Mg Tablet, 1 MG PO BID, (Reported) Past Zwqlyru-Mmrfpz-Ladrtb Hx Past Med/Social Hx: Reviewed Nursing Past Med/Soc Hx Patient Social History Alcohol Use: Denies Use Recreational Drug Use: No Smoking Status: Unknown if Ever Smoked Recent Foreign Travel: No Contact w/Someone Who Travel: No Recent Infectious Disease Expo: No Recent Hopitalizations: No Seasonal Allergies Seasonal Allergies: No Past Medical History Surgeries: No Respiratory: No Cardiac: No Neurological: No Genitourinary: No Gastrointestinal: No Musculoskeletal: No Endocrine: Yes Diabetes, Insulin dep HEENT: No Cancer: No Psychosocial: No Integumentary: No Blood Disorders: No Family Medical History Reviewed Nursing Family Hx Review of Systems Time Seen by Provider: 12:46 Sepsis Event Evaluation Height, Weight, BMI Height: '" Weight: lbs. oz. kg; 34.00 BMI Method: Exam Exam Vital Signs Date Time Temp Pulse Resp B/P (MAP) Pulse Ox O2 Delivery O2 Flow Rate FiO2 08/17/19 05:24 Mechanical Ventilator 21.00 08/17/19 04:14 107 101/69 08/17/19 04:00 108 18 106/65 (79) 99 Mechanical Ventilator 30.00 08/17/19 03:39 Mechanical Ventilator 30.00 08/17/19 03:00 111 18 98/66 (77) 99 Mechanical Ventilator 35.00 08/17/19 02:40 114 18 98 35 08/17/19 02:30 107 18 88/55 (66) 99 Mechanical Ventilator 35.00 08/17/19 02:15 108 18 92/66 (75) 99 Mechanical Ventilator 35.00 08/17/19 02:12 36.0 114 98 35 08/17/19 02:00 111 18 101/43 (62) 98 Mechanical Ventilator 35.00 08/17/19 01:54 118 08/17/19 01:45 Mechanical Ventilator 35 08/17/19 01:45 113 18 84/54 (64) 100 Mechanical Ventilator 35.00 08/17/19 01:35 36.0 119 16 105/83 97 Mechanical Ventilator 40.00 08/17/19 01:30 114 18 115/64 (81) 100 Mechanical Ventilator 35.00 08/17/19 01:06 112 97/56 08/17/19 00:55 114 18 98 40 08/16/19 23:13 141 102/86 08/16/19 23:06 147 18 94 100 08/16/19 22:56 35.1 141 16 125/89 (101) 99 Mechanical Ventilator 08/16/19 22:56 97 Mechanical Ventilator 40 08/16/19 22:46 77/40 08/16/19 21:26 22 40.00 08/16/19 21:23 35.1 131 11 109/53 (71) 95 Non Rebreather 08/16/19 21:23 35.1 131 11 109/53 (71) 95 Non Rebreather 08/16/19 21:23 35.1 131 11 109/53 95 Non Rebreather I & O 08/17/19 07:00 Intake Total 100 ml Balance 100 ml Height & Weight Height: '" Weight: lbs. oz. kg; 34.00 BMI Method: General Appearance: Other (sedated on vent) HEENT: PERRL/EOMI, Pharynx Normal Neck: Full Range of Motion, Supple Respiratory: Normal Breath Sounds, No Accessory Muscle Use, No Respiratory Distress, Decreased Breath Sounds Cardiovascular: Regular Rate, Rhythm, No Edema Capillary Refill: Less Than 3 Seconds Peripheral Pulses: 1+ Radial Pulses (R), 1+ Radial Pulses (L) Gastrointestinal: distended, other (pt is sedated on vent. ) Extremity: Normal Capillary Refill, Normal Inspection, No Pedal Edema Skin: Normal Color, Warm/Dry Lymphatic: No Adenopathy Results Lab Laboratory Tests 08/16/19 21:38 08/17/19 03:15 Assessment/Plan Assessment/Plan Acute respiratory failure probable aspiration -Currently sedated on vent -Vanco and Zosyn -PNA does not explain degree of sepsis -Pt has central line -Obtain Art line Severe sepsis with shock -Levophed gtt add vasopressin -IVF NS at 250 -UA is negative -Sprague cultures pending -Consult surgery for possible ex lap. - I talked with Dr. Khanna regarding concerns. Found unresponsive at home per family Metabolic encephalopathy Gastroenteritis with N/V/D -Cdiff toxin pending -Stool cultures pending RAFAT REINA DO Aug 17, 2019 05:44
[2019-08-17] MEDS ORDERED: SODIUM BICARB 8.4% 50 MEQ/50 ML VIAL IV ONE (05:45)
[2019-08-17] MEDS ORDERED: fentaNYL INJECTION 100 MCG/2 ML AMP IV PRN (06:00)
[2019-08-17] MEDS ORDERED: inSUlin ASPART (NovoLOG) 1 UNIT/0.01 ML (CHARGE PER UNIT) SC SCH (06:00)
[2019-08-17] MEDS ORDERED: PHARMACY TO DOSE IV SCH (06:00)
[2019-08-17] MEDS: NS IV 1000 ML 1,000 ML IV SCH ×3 (06:10→17:17)
--- NOTE | 2019-08-17 06:16 | Diagnostic Imaging Report ---
PROCEDURE: CT head without contrast. TECHNIQUE: Multiple contiguous axial images were obtained through the brain without the use of intravenous contrast. Auto Exposure Controls were utilized during the CT exam to meet ALARA standards for radiation dose reduction. INDICATION: Intubated, unresponsive COMPARISON: 11/25/2016 FINDINGS: Ventricles are normal in size, shape, and position. There is no midline shift or mass effect. There is no hemorrhage or evidence of acute ischemia. No extra-axial fluid collection is seen. There is no mass. Paranasal sinuses and mastoids are clear. There is no skull fracture. IMPRESSION: No acute intracranial abnormalities. Agree with preliminary report. Dictated by: Dictated on workstation # [id number]
--- NOTE | 2019-08-17 06:35 | NUR ---
VANCOMYCIN DOSING: ADJ BW 76.86 KG, SCr 1.16, CrCl 64.9 PT RECEIVED 2,000 MG LOADING DOSE MAIN DOSE 1,500 MG IV Q 12 HRS VANCOMYCIN TROUGH DUE 08/18/19 @ 13:00 IF TROUGH > 20 HOLD 08/18/19 14:00 DOSE.
[2019-08-17] MEDS: RT-ALBUTEROL/IPRATROPIUM 3 ML (DUONEB) VIAL INH SCH ×5 (06:41→21:09)
[2019-08-17] MEDS: POTASSIUM CL 10MEQ/50ML IVPB 50 ML IV SCH ×3 (06:43→08:05)
[2019-08-17] MEDS ORDERED: PIPERACILLIN/TAZO 4.5 GM VIAL (ZOSYN) IV ONE (06:43)
[2019-08-17] MEDS ORDERED: NS (IVPB) 0 ML ONE (06:43)
[2019-08-17] MEDS: KCL 20 MEQ TAB (K-DUR) PO SCH (06:44)
[2019-08-17] MEDS: MAGNESIUM 1 GM/100 ML IVPB 100 ML IV SCH ×3 (06:44→15:50)
--- NOTE | 2019-08-17 06:51 | Diagnostic Imaging Report ---
INDICATION: Shortness of breath, intubated COMPARISON: 08/16/2019 FINDINGS: Single view chest demonstrates cardiac enlargement with increasing central vascular congestion. There is bibasilar atelectasis. Small effusion persists in the left base. There is no pneumothorax. Support lines appear to be in good position. IMPRESSION: 1. Cardiac enlargement with increasing central vascular congestion. 2. Stable left-sided effusion. 3. Stable support lines without pneumothorax. Dictated by: Dictated on workstation # [id number]
[2019-08-17 06:58] LABS: AMYLASE 65 U/L (25-125); LIPASE 74 U/L (8-78)
[2019-08-17] MEDS: PIPERACILLIN/TAZO 4.5 GM/NS 100 ML IV SCH ×6 (07:00→21:34)
[2019-08-17] MEDS: CALCIUM GLUCONATE 1 GM/NS 50 ML IV SCH ×4 (07:01→08:05)
--- NOTE | 2019-08-17 07:13 | Diagnostic Imaging Report ---
PROCEDURE: CT angiography of the chest with contrast and CT abdomen and pelvis with contrast. TECHNIQUE: Multiple contiguous axial images were obtained through the chest, abdomen and pelvis after administration of intravenous contrast. 3D MIP reconstructed CT angiography acquisitions of the aorta were then performed. Auto Exposure Controls were utilized during the CT exam to meet ALARA standards for radiation dose reduction. All CT scans use one or more of the following dose optimizing techniques: automated exposure control, MA and/or KvP adjustment based on a patient size and exam type, or iterative reconstruction. INDICATION: Unresponsive, intubated. COMPARISON: None. CT chest: FINDINGS: ET tube and NG tube appear to be in good position. The heart is enlarged without pericardial effusion. The visualized aorta and pulmonary arteries unremarkable. Please note, the timing of the contrast bolus is inadequate for pulmonary arterial branch evaluation. There is no mediastinal lymphadenopathy. There is consolidation in the medial lung bases. There is no pneumothorax or large effusion. Underlying pneumonia not excluded. Osseous structures are stable. IMPRESSION: 1. Well-positioned support lines. 2. No acute aortic pathology. Timing of the contrast bolus is inadequate for pulmonary arterial branch evaluation. 3. Consolidation and questionable infiltrates in the medial lung bases. Followup recommended. CT abdomen and pelvis: FINDINGS: Enteric tube is seen within the distal stomach. The stomach is slightly dilated. The gallbladder is surgically absent. Solid organs and vascular structures are otherwise intact. No solid organ or bowel ischemia is identified. There is no free air or free fluid. No inflammatory process is identified. The urinary bladder is decompressed with a Jimenez catheter. The uterus is surgically absent. There is no hernia. Postoperative changes are seen in lumbar spine. Otherwise, osseous structures are age-appropriate. IMPRESSION: 1. No acute abnormalities within the abdomen or pelvis. 2. No vascular compromise, solid organ or bowel ischemia. Agree with preliminary report. Dictated by: Dictated on workstation # [id number]
[2019-08-17 07:43] LABS: ABG BASE EXCESS -4.4 MMOL/L (-2.5-2.5); ABG OXYGEN SATURATION 91 % (94-100); ABG PCO2 33 MMHG (35-45); ABG PH 7.39 (7.37-7.43); ABG PO2 64 MMHG (79-93); ABG TCO2 20.8 MMOL/L (21.0-31.0)
[2019-08-17 07:45] LABS: ALLENS TEST YES-POS
[2019-08-17 07:46] LABS: INSPIRED O2 RESP RATE 22; PATIENT TEMP 36.3; VENTILATOR YES
[2019-08-17] MEDS: FAMOTIDINE 20MG/2ML IV (PEPCID) IV SCH ×2 (08:06→20:24)
--- NOTE | 2019-08-17 08:17 | Physical Therapy Progress Note ---
Therapy Progress Note Patient currently on vent, will check on patient condition tomorrow. JAYSHREE RANDHAWA PT Aug 17, 2019 08:17
[2019-08-17] MEDS: fentaNYL INJECTION 1,250 MCG in NS (IVPB) 250 ML IV SCH (08:21)
--- NOTE | 2019-08-17 08:26 | Occ Therapy Progress Note ---
Therapy Progress Note OT order received. Pt. currently sedated on ventilator support. Will continue to monitor pt. [id number] ALONZO JASON OT Aug 17, 2019 08:26
[2019-08-17] MEDS ORDERED: ENOXAPARIN 30 MG/0.3 ML (LOVENOX) SYR SC SCH (09:00)
[2019-08-17] MEDS ORDERED: SODIUM PHOSPHATE INJ 15 MM in D5W 100 ML IVPB 100 ML IV ONE (09:00)
[2019-08-17] MEDS ORDERED: MIDAZOLAM 5 MG/5 ML (VERSED) VIAL IV ONE (09:02)
[2019-08-17] MEDS ORDERED: SUCCINYLCHOLINE INJ 100 MG/5 ML SYR INJ ONE (09:02)
[2019-08-17] MEDS ORDERED: KETAMINE HCL 100 MG/ML 5 ML VIAL IV ONE (09:02)
[2019-08-17] MEDS ORDERED: fentaNYL INJECTION 100 MCG/2 ML AMP INJ ONE (09:02)
--- NOTE | 2019-08-17 09:22 | Consultation - Surgery ---
[facility] 08/17/19 0922: History of Present Illness History of Present Illness Patient Consulted On(jeronimo/time) 08/17/19 09:17 Date Seen by Provider: Aug 17, 2019 Time Seen by Provider: 09:03 History of Present Illness Patient is intubated and sedated in ICU. Breast Surgeon at bedside says patient ate [employer]aco [employer] 7 days ago and then became sick with what they thought was food poiso stevo. She was the only one to get sick, others went with her and ate as well. Patient was experiencing nausea, non-bloody vomiting, and non-bloody diarrhea. Breast Surgeon says patient was experiencing "burning pain in her stomach". She states this has never happened to her before. She went to the doctor and patient sent in a stool sample, the drop wire stringer says it was all negative and they just sent her some Zofran for nausea. Allergies and Home Medications Allergies Coded Allergies: Influenza Virus Vaccines (Verified Allergy, Unknown, 08/16/19) Home Medications Albuterol Sulfate 18 Gm Hfa.aer.ad, 2 PUFF PO Q4H PRN for SHORTNESS OF BREATH, (Reported) Aspirin 81 Mg Tablet.dr, 81 MG PO DAILY, (Reported) Budesonide/Formoterol Fumarate 10.2 Gm Hfa.aer.ad, 2 PUFF IH BID, (Reported) Diazepam 10 Mg Tablet, 5-10 MG PO HS, (Reported) Docusate Sodium 100 Mg Capsule, 200 MG PO DAILY, (Reported) Escitalopram Oxalate 20 Mg Tablet, 20 MG PO DAILY, (Reported) Gabapentin 600 Mg Tablet, 600 MG PO Q8H PRN for NERVE PAIN, (Reported) Hydrocodone/Acetaminophen 1 Each Tablet, 1 TAB PO Q6H PRN for PAIN-MILD (1-4), (Reported) Lisinopril 10 Mg Tablet, 10 MG PO DAILY, (Reported) Magnesium Oxide 400 Mg Tablet, 400 MG PO DAILY, (Reported) Meloxicam 15 Mg Tablet, 15 MG PO DAILY, (Reported) Metformin HCl 500 Mg Tab.er.24h, 500 MG PO DAILY, (Reported) Methocarbamol 750 Mg Tablet, 750 MG PO Q8H PRN for MUSCLE SPASMS, (Reported) Omeprazole 20 Mg Capsule.dr, 20 MG PO DAILY, (Reported) Ondansetron 4 Mg Tab.rapdis, 4 MG PO Q4H PRN for NAUSEA/VOMITING-1ST LINE, (Reported) Oxybutynin Chloride 5 Mg Tablet, 5 MG PO BID, (Reported) Simvastatin 40 Mg Tablet, 40 MG PO DAILY, (Reported) Varenicline Tartrate 1 Mg Tablet, 1 MG PO BID, (Reported) Past Lhymscl-Lohtny-Blakzz Hx Patient Social History Alcohol Use: Denies Use Recreational Drug Use: No Smoking Status: Unknown if Ever Smoked Recent Foreign Travel: No Contact w/Someone Who Travel: No Recent Infectious Disease Expo: No Recent Hopitalizations: No Seasonal Allergies Seasonal Allergies: No Surgeries History of Surgeries: Yes Surgeries: Gallbladder (per CT ), Hysterectomy (per CT ), Orthopedic (back surgery) Respiratory History of Respiratory Disorde: No Cardiovascular History of Cardiac Disorders: No Neurological History of Neurological Disord: No Genitourinary History of Genitourinary Disor: No Gastrointestinal History of Gastrointestinal Di: No Musculoskeletal History of Musculoskeletal Dis: Yes Musculoskeletal Disorders: Chronic Back Pain Endocrine History of Endocrine Disorders: Yes Endocrine Disorders: Diabetes, Insulin dep HEENT History of HEENT Disorders: No Cancer History of Cancer: No Psychosocial History of Psychiatric Problem: No Integumentary History of Skin or Integumenta: No Blood Transfusions History of Blood Disorders: No Family Medical History Other unable to obtain, patient is sedated and on vent. Review of Systems-General ROS-Unable to Obtain: Patient is sedated and intubated. Physical Exam-General Problems Physical Exam Vital Signs Vital Signs - First Documented 08/16/19 08/16/19 21:26 22:56 O2 Flow Rate 40.00 FiO2 40 Capillary Refill : Greater Than 3 Seconds General Appearance: WD/WN, other (Sedated and intubated. ) HEENT: other (ET tube in place) Neck: supple, other (central line placed) Respiratory: normal breath sounds, other (on vent) Cardiovascular: regular rate, rhythm, no murmur Gastrointestinal: soft, no pulsatile mass Rectal: deferred Back: other (sedated and on vent) Extremities: normal inspection, no pedal edema Neurologic/Psychiatric: other (Sedated ) Skin: normal color, warm/dry Data Review Labs Laboratory Tests 08/16/19 21:38: White Blood Count 8.0, Red Blood Count 4.99, Hemoglobin 16.3H, Hematocrit 47, Mean Corpuscular Volume 94, Mean Corpuscular Hemoglobin 33, Mean Corpuscular Hemoglobin Concent 35, Red Cell Distribution Width 13.3, Platelet Count 390, Mean Platelet Volume 9.2, Neutrophils (%) (Auto) 42, Lymphocytes (%) (Auto) 55H, Monocytes (%) (Auto) 2, Eosinophils (%) (Auto) 1, Basophils (%) (Auto) 0, Neutrophils # (Auto) 3.4, Lymphocytes # (Auto) 4.4H, Monocytes # (Auto) 0.2, Eosinophils # (Auto) 0.1, Basophils # (Auto) 0.0, Prothrombin Time 16.4H, INR Comment 1.3, Activated Partial Thromboplast Time 36H, Sodium Level 122*L, Potassium Level 4.4, Chloride Level 93L, Carbon Dioxide Level 9*L, Anion Gap 20H , Blood Urea Nitrogen 12, Creatinine 1.17, Estimat Glomerular Filtration Rate 48, BUN/Creatinine Ratio 10, Glucose Level 251H, Calcium Level 9.0, Corrected Calcium 9.2, Total Bilirubin 0.3, Aspartate Amino Transf (AST/SGOT) 32, Alanine Aminotransferase (ALT/SGPT) 27, Alkaline Phosphatase 92, Total Protein 6.6, [place] min 3.8, Triglycerides Level 155H 08/16/19 21:48: Urine Color YELLOW, Urine Clarity CLEAR, Urine pH 7.0, Urine Specific [place] <=1.005, Urine Protein NEGATIVE, Urine Glucose (UA) NEGATIVE, Urine Ketones NEGATIVE, Urine Nitrite NEGATIVE, Urine Bilirubin NEGATIVE, Urine Urobilinogen 0.2, Urine Leukocyte Esterase NEGATIVE, Urine RBC (Auto) NEGATIVE, Urine RBC NON E, Urine WBC NONE, Urine Squamous Epithelial Cells 0-2, Urine Crystals NONE, Urine Bacteria NEGATIVE, Urine Casts NONE, Urine Mucus NEGATIVE, Urine Culture Indicated CULTURE PENDING, Lactic Acid Level 5.85*H, Urine Opiates Screen NEGAT DEYANIRA, Urine Oxycodone Screen POSITIVEH, Urine Methadone Screen NEGATIVE, Urine Propoxyphene Screen NEGATIVE, Urine Barbiturates Screen NEGATIVE, Ur Tricyclic Antidepressants Screen NEGATIVE, Urine Phencyclidine Screen NEGATIVE, Urine Am phetamines Screen NEGATIVE, Urine Methamphetamines Screen NEGATIVE, Urine Benzodiazepines Screen POSITIVEH, Urine Cocaine Screen NEGATIVE, Urine Cannabinoids Screen NEGATIVE 08/16/19 23:39: Lactic Acid Level 3.21*H 08/17/19 00:32: Blood Gas Puncture Site RIGHT RADAIL, Blood Gas Patient Temperature 35.8, Arterial Blood pH 7.18*L, Arterial Blood Partial Pressure CO2 43, Arterial Blood Partial Pressure O2 194H, Arterial Blood HCO3 16*L, Arterial Blood Total CO2 16.9L, Arterial Blood Oxygen Saturation 99, Arterial Blood Base Excess -11.6L, Blue Test YES-POS, Blood Gas Ventilator Setting YES, Blood Gas Inspired Oxygen 100% 08/17/19 02:13: Lactic Acid Level 1.98 08/17/19 03:00: Blood Gas Puncture Site RIGHT RADIAL, Blood Gas Patient Temperature 36.0, Arterial Blood pH 7.29*L, Arterial Blood Partial Pressure CO2 33L, Arterial Blood Partial Pressure O2 87, Arterial Blood HCO3 15*L, Arterial Blood Total CO2 16.5L, Arterial Blood Oxygen Saturation 97, Arterial Blood Base Excess -10.1L, Blue Test YES-POS, Blood Gas Ventilator Setting YES, Blood Gas Inspired Oxygen 35% 08/17/19 03:15: White Blood Count 30.0H, Red Blood Count 4.40, Hemoglobin 14.2, Hematocrit 41, Mean Corpuscular Volume 94, Mean Corpuscular Hemoglobin 32, Mean Corpuscular Hemoglobin Concent 34, Red Cell Distribution Width 13.2, Platelet Count 373, Mean Platelet Volume 8.9, Neutrophils (%) (Auto) 92H, Lymphocytes (%) (Auto) 3L, Monocytes (%) (Auto) 5, Eosinophils (%) (Auto) 0, Basophils (%) (Auto) 0, Neutrophils # (Auto) 27.7H, Lymphocytes # (Auto) 1.0, Monocytes # (Auto) 1.4H, Eosinophils # (Auto) 0.0, Basophils # (Auto) 0.0, Neutrophils % (Manual) 84, Lymphocytes % (Manual) 3, Monocytes % (Manual) 1, Band Neutrophils 12, Blood Morphology Comment NORMAL, Sodium Level 124*L, Potassium Level 3.8, Chloride Level 97L, Carbon Dioxide Level 13L, Anion Gap 14, Blood Urea Nitrogen 13, Creatinine 1.16, Estimat Glomerular Filtration Rate 48, BUN/Creatinine Ratio 11, Glucose Level 258H, Calcium Level 7.5L, Phosphorus Level 1.8L, Magnesium Level 1.7, Amylase Level 65, Lipase 74 08/17/19 07:40: Blood Gas Puncture Site RIGHT RADIAL, Blood Gas Patient Temperature 36.3, Arterial Blood pH 7.39, Arterial Blood Partial Pressure CO2 33L, Arterial Blood Partial Pressure O2 64L, Arterial Blood HCO3 20L, Arterial Blood Total CO2 20.8L , Arterial Blood Oxygen Saturation 91L, Arterial Blood Base Excess -4.4L, Blue Test YES-POS, Blood Gas Ventilator Setting YES, Blood Gas Inspired Oxygen RESP RATE 22 Microbiology 08/16/19 C. difficile GDH Antigen & Toxins - Final, Complete 08/16/19 Influenza Types A,B Antigen ([facility]ENN) - Final, Complete Assessment/Plan Assessment/Plan Admission Diagonsis Hx of diarrhea for [address] was negative for ischemia, there was no air or fluid, no inflammatory process. Stool and blood cultures pending. Cdiff was neg. AMS - Head CT was negative for acute process Vomiting Nausea Leukocytosis Septic shock Hyponatremia Narcotic use for chronic back pain Hypotension - sedation was turned down Hx of diabetes Hx of OD Blood, urine, sputum and stool cultures pending. JOSE KHANNA DO 08/17/19 1414: History of Present Illness History of Present Illness Time Seen by Provider: 13:22 History of Present Illness Pt seen and examined, intubated and sedated but seems to be following some commands. Daughter at bedside said she is the drop wire stringer. Nurse denies melanotic or bloody diarrhea. Allergies and Home Medications Allergies Coded Allergies: Influenza Virus Vaccines (Verified Allergy, Unknown, 08/16/19) Home Medications Albuterol Sulfate 18 Gm Hfa.aer.ad, 2 PUFF PO Q4H PRN for SHORTNESS OF BREATH, (Reported) Aspirin 81 Mg Tablet.dr, 81 MG PO DAILY, (Reported) Budesonide/Formoterol Fumarate 10.2 Gm Hfa.aer.ad, 2 PUFF IH BID, (Reported) Diazepam 10 Mg Tablet, 5-10 MG PO HS, (Reported) Docusate Sodium 100 Mg Capsule, 200 MG PO DAILY, (Reported) Escitalopram Oxalate 20 Mg Tablet, 20 MG PO DAILY, (Reported) Gabapentin 600 Mg Tablet, 600 MG PO Q8H PRN for NERVE PAIN, (Reported) Hydrocodone/Acetaminophen 1 Each Tablet, 1 TAB PO Q6H PRN for PAIN-MILD (1-4), (Reported) Lisinopril 10 Mg Tablet, 10 MG PO DAILY, (Reported) Magnesium Oxide 400 Mg Tablet, 400 MG PO DAILY, (Reported) Meloxicam 15 Mg Tablet, 15 MG PO DAILY, (Reported) Metformin HCl 500 Mg Tab.er.24h, 500 MG PO DAILY, (Reported) Methocarbamol 750 Mg Tablet, 750 MG PO Q8H PRN for MUSCLE SPASMS, (Reported) Omeprazole 20 Mg Capsule.dr, 20 MG PO DAILY, (Reported) Ondansetron 4 Mg Tab.rapdis, 4 MG PO Q4H PRN for NAUSEA/VOMITING-1ST LINE, (Reported) Oxybutynin Chloride 5 Mg Tablet, 5 MG PO BID, (Reported) Simvastatin 40 Mg Tablet, 40 MG PO DAILY, (Reported) Varenicline Tartrate 1 Mg Tablet, 1 MG PO BID, (Reported) Patient Home Medication List Home Medication List Reviewed: Yes Past Gdqqlgw-Wdgpup-Yivnvy Hx Patient Social History Alcohol Use: Occasionally Uses Smoking Status: Current Everyday Smoker (2 ppd) Surgeries History of Surgeries: Yes Respiratory History of Respiratory Disorde: Yes Respiratory Disorders: COPD Cardiovascular History of Cardiac Disorders: Yes Cardiac Disorders: Hypertension Neurological History of Neurological Disord: No Musculoskeletal History of Musculoskeletal Dis: Yes Endocrine History of Endocrine Disorders: Yes Endocrine Disorders: Diabetes, Non-Insulin dep Family Medical History Significant Family History: Heart Disease, Cancer, GI Disease (sisters and daughter) Physical Exam-General Problems Physical Exam General Appearance: WD/WN, other (Sedated and intubated. ) Eyes: Bilateral Eye PERRL, Bilateral Eye EOMI HEENT: No scleral icterus (R), No scleral icterus (L); other (ET tube in place) Neck: supple, other (central line placed) Respiratory: normal breath sounds, decreased breath sounds (at bases) Cardiovascular: regular rate, rhythm, no murmur Gastrointestinal: soft, no organomegaly Extremities: no pedal edema Neurologic/Psychiatric: other (Sedated ) Skin: normal color, warm/dry Lymphatic: no adenopathy (neck, axilla or groin) Assessment/Plan Assessment/Plan Assessment/Plan Abdominal pain Diarrhea Altered mental status Acute Respiratory failure C. diff negative and other cultures pending; have ordered an hemoccult test for diarrhea. Nothing seen on CT to indicate GI source; pt does have some lung consolidation and probably has a gastroenteritis. It is also possible there may be some component of overdose (accidental) of narcotics. I will follow along. Supervisory-Addendum Brief Verification & Attestation Participated in pt care: history, MDM, physical Personally performed: exam, history, MDM Care discussed with: Medical Student Procedures: n/a Verification and Attestation of Medical Student E/M Service A medical student performed and documented this service. I then reviewed and verified all information documented by the medical student and made modifications to such information, when appropriate. I personally performed a physical exam, medical decision making and then discussed any differences between the notes and made revisions as necessary to create one note. Jose Khanna , 08/17/19 , 14:14 [facility] Aug 17, 2019 09:22 JOSE KHANNA DO Aug 17, 2019 14:14
[2019-08-17] MEDS: VASOPRESSIN INJECTION 20 UNIT in NS (IVPB) 100 ML IV SCH ×2 (09:30→17:17)
--- NOTE | 2019-08-17 10:40 | NUR ---
Pastoral care visit, with family at bedside and also in the waiting room. Offered support and encouragement.
[2019-08-17] MEDS ORDERED: ESCI20TA45 PO (11:26)
[2019-08-17] MEDS ORDERED: MAGN400T8 PO (11:26)
[2019-08-17] MEDS ORDERED: ALBU18HF2 PO (11:26)
[2019-08-17] MEDS ORDERED: METF500T19 PO (11:26)
[2019-08-17] MEDS ORDERED: ASPI-983 PO (11:26)
[2019-08-17] MEDS ORDERED: LISI10TA2 PO (11:26)
[2019-08-17] MEDS ORDERED: DIAZ10TA3 PO (11:26)
[2019-08-17] MEDS ORDERED: DOCU-238 PO (11:26)
[2019-08-17] MEDS ORDERED: VARE1TAB22 PO (11:26)
[2019-08-17] MEDS ORDERED: MELO15TA39 PO (11:26)
[2019-08-17] MEDS ORDERED: ACHYD1T PO (11:26)
[2019-08-17] MEDS ORDERED: OXYB5TAB13 PO (11:26)
[2019-08-17] MEDS ORDERED: ONDA4TAB11 PO (11:36)
[2019-08-17] MEDS ORDERED: SIMV40TA25 PO (11:36)
[2019-08-17] MEDS ORDERED: OMEP20CA18 PO (11:36)
[2019-08-17] MEDS ORDERED: METH750T3 PO (11:36)
[2019-08-17] MEDS ORDERED: GBPN600T PO (11:36)
[2019-08-17] MEDS ORDERED: BUDE10.2 IH (11:36)
--- NOTE | 2019-08-17 11:39 | NUR ---
NURSE HAD A MED LIST AND I ALSO WENT THRU THE EXT MED HISTORY AND CALLED [facility] [place] TO COMPLETE THE MED REC. WAS UNABLE TO SPEAK TO PT AT THIS TIME- I ENTERED MED REC BY WHAT THE PHARMACY HAD FILLED RECENTLY. THE FOLLOWING ARE FILL DATES NO SHOWN ON THE EXT MED HISTORY: 07-03-2019 SIMVASTATIN 40MG #90/90DS 07-31-2019 SYMBICORT 160/4.5 #07/23DS
[2019-08-17] MEDS: inSUlin ASPART (NovoLOG) 1 UNIT/0.01 ML (CHARGE PER UNIT) SC SCH ×3 (11:41→23:38)
[2019-08-17 12:48] LABS: BASOPHILS % (AUTO) 0 % (0-10); EOSINOPHILS % (AUTO) 0 % (0-10); HEMATOCRIT 37 % (35-52); HEMOGLOBIN 12.6 G/DL (11.5-16.0); LYMPHOCYTES # (AUTO) 1.5 X 10^3 (1.0-4.0); LYMPHOCYTES % (AUTO) 7 % (12-44); MEAN CORPUSCULAR HEMOGLOBIN 32 PG (25-34); MEAN CORPUSCULAR HGB CONC 35 G/DL (32-36); MEAN CORPUSCULAR VOLUME 94 FL (80-99); MEAN PLATELET VOLUME 8.8 FL (7.4-10.4); MONOCYTES # (AUTO) 1.2 X 10^3 (0.0-1.0); MONOCYTES % (AUTO) 6 % (0-12); NEUTROPHILS # (AUTO) 18.7 X 10^3 (1.8-7.8); NEUTROPHILS % (AUTO) 88 % (42-75); PLATELET COUNT 346 10^3/uL (130-400); RED CELL DISTRIBUTION WIDTH 13.3 % (10.0-14.5); WHITE BLOOD COUNT 21.3 10^3/uL (4.3-11.0)
--- NOTE | 2019-08-17 12:50 | Pulmonary Progress Note ---
Standard Progress Note Progress Notes Date Seen by Provider: Aug 17, 2019 Time Seen by Provider: 12:48 Called to bedside from RN because family is requesting transfer. Currently pt is very critical on vent with Levophed and Vasopressin however there is no clear benefit to transferring pt at this time. I answered all family's concerns and explained why I believe transferring pt at this time is risky without benefit. Assessment & Plan Acute respiratory failure probable aspiration -Currently sedated on vent -Vanco and Zosyn -PNA does not explain degree of sepsis -Pt has central line -Obtain Art line Severe sepsis with shock -Levophed gtt add vasopressin -IVF NS at 250 -UA is negative -Sprague cultures pending -Consult surgery for possible ex lap. - I talked with Dr. Khanna regarding concerns. Found unresponsive at home per family Metabolic encephalopathy Gastroenteritis with N/V/D -Cdiff toxin pending -Stool cultures pending Critical Care: Critically Ill Patient Time spent with patient (mins): 30 Focused Exam Lactate Level 08/16/19 23:39: Lactic Acid Level 3.21*H 08/17/19 02:13: Lactic Acid Level 1.98 08/17/19 12:40: Lactic Acid Level Laboratory Tests Test 08/17/19 12:40 RAFAT REINA DO Aug 17, 2019 12:50
[2019-08-17 13:07] LABS: BILIRUBIN,TOTAL 0.4 MG/DL (0.1-1.0); CALCIUM 7.4 MG/DL (8.5-10.1); CREATININE SERUM 1.07 MG/DL (0.60-1.30); MAGNESIUM 1.5 MG/DL (1.6-2.4); PHOSPHORUS 3.1 MG/DL (2.3-4.7); POTASSIUM 3.9 MMOL/L (3.6-5.0); TOTAL PROTEIN 4.8 GM/DL (6.4-8.2)
--- NOTE | 2019-08-17 14:00 | Anesthesia-Procedure Note ---
Procedures/Interventions Procedure Start/Stop/Diagnosis Date of Procedure: Aug 17, 2019 Start Time: 13:15 Stop Time: 13:45 Arterial Line Arterial Line Catheter: 20G Type: Radial Location: Right Procedure: prepped, draped in sterile fashion, good wave-form was obtained, patient tolerated procedure well, no immediate complications ASHOK KAUR CRNA Aug 17, 2019 14:00
--- NOTE | 2019-08-17 14:01 | History & Physical-Hospitalist ---
History of Present Illness HPI/Chief Complaint Pt is intubated and sedated and unable to provide any history. She is a 59yo CF who presented to the ER due to AMS. Per her daughter she was reportedly normal yesterday but went to take a nap and then when she woke up yesterday evening was very confused. Her decided to call the ambulance when her eyes rolled ba ck in her head and she was unresponsive. Reportedly she has a history of overdoses but her daughter states that the patient's sister sets up her meds and she does not have access to her meds. Daughter also states that she is very unhealthy and smokes a lot and drinks 3 2L of diet soda a day. She also states her mom has been telling her "I'm not going to be around much longer." but has not disclosed any health problems to her. Source: patient Date Seen 08/17/19 Time Seen by a Provider: 13:00 Attending Physician Ramonita Liz MD PCP No,Local Physician Referring Physician Date of Admission Aug 16, 2019 at 23:15 Home Medications & Allergies Home Medications Reviewed patient Home Medication Reconciliation performed by pharmacy medication reconciliations radiocommunications technician and/or nursing. Patients Allergies have been reviewed. Allergies Allergies Coded Allergies Influenza Virus Vaccines (Verified Allergy, Unknown, 08/16/19) Past Jvseprm-Oxzfoj-Kjjkps Hx Past Med/Social Hx: Reviewed Nursing Past Med/Soc Hx Patient Social History Alcohol Use: Denies Use Recreational Drug Use: No Smoking Status: Unknown if Ever Smoked Recent Foreign Travel: No Contact w/other who traveled: No Recent Hopitalizations: No Recent Infectious Disease Expo: No Seasonal Allergies Seasonal Allergies: No Past Medical History Surgeries: Gallbladder (per CT ), Hysterectomy (per CT ), Orthopedic (back surgery) Musculoskeletal: Chronic Back Pain Endocrine: Diabetes, Insulin dep History of Blood Disorders: No Family History Reviewed Nursing Family Hx Review of Systems ROS-Unable to Obtain: sedated and intubated Constitutional: see HPI Physical Exam Physical Exam Vital Signs Vital Signs - First Documented 08/16/19 08/16/19 21:26 22:56 O2 Flow Rate 40.00 FiO2 40 Capillary Refill : Less Than 3 Seconds Height, Weight, BMI Height: '" Weight: lbs. oz. kg; 34.00 BMI Method: General Appearance: Chronically ill, Obese HEENT: PERRL/EOMI; No Scleral Icterus (L), No Scleral Icterus (R) Respiratory: Lungs Clear, Other (intubated) Cardiovascular: No Murmur, Tachycardia Gastrointestinal: Normal Bowel Sounds, Soft; No Distended, No Guarding Extremity: Normal Capillary Refill, No Calf Tenderness Neurologic/Psychiatric: Other (easily arousable to verbal stimuli, denied pain- did not answer any other questions) Results Results/Procedures Labs Laboratory Tests 08/16/19 21:38 08/17/19 03:15 08/17/19 12:40 08/18/19 03:00 Patient resulted labs reviewed. Imaging: Reviewed Imaging Report Assessment/Plan Admission Diagnosis Septic Shock Admission Status: Inpatient Order (span 2 midnights) Reason for Inpatient Admission: intuabted, on pressors Assessment and Plan Septic Shock Source unclear at this time- likely pneumonia Continue on Vanc and Zosyn Discussed with Dr Ellis- CT abdomen done to rule out GI pathology No evidence of ischemic colitis on CT, discussed with Dr Khanna- no indication for surgery at this time lactic acid improving Continue Levophed and Vasopressin to keep MAP >65 Await cultures C diff negative Rapid flu negative Will get RVP Acute Respiratory Failure COPD Maintain on vent Pulm consulted, appreciate recs RVP ordered MAT protocol NIDDMII Daughter states she was on insulin but quit taking it BS 251 on arrival trend SSI Hold metformin as may be contributing to lactic acidosis Anxiety and Depression Continue home meds as able Broached topic of overdose with daughter and she states that's not a possibility Chronic Pain On hydrocodone at home Diagnosis/Problems Diagnosis/Problems (1) Septic shock Status: Acute (2) Colitis Status: Acute (3) Respiratory failure with hypoxia Status: Acute Qualifiers: Chronicity: acute Qualified Codes: J96.01 - Acute respiratory failure with hypoxia (4) Lactic acid acidosis ANTONIO MCCARTY MD Aug 17, 2019 14:00
[2019-08-17] MEDS: VANCOMYCIN 1500 MG/NS 500 ML IVPB IV SCH ×2 (14:11)
--- NOTE | 2019-08-17 14:46 | NUR ---
OK STOOL +, DR AVALOS NOTIFIED. Addendum: 08/18/19 at 1324 by CORRINE RAMIREZ RN CORRECTION: OB STOOL +
[2019-08-17] MEDS ORDERED: LACTATED RINGERS 1,000 ML IV NR (15:45)
[2019-08-17] MEDS: LACTATED RINGERS 1,000 ML IV SCH ×2 (17:59→21:35)
[2019-08-17] MEDS ORDERED: LACTATED RINGERS 1,000 ML IV ONE (18:00)
--- NOTE | 2019-08-17 19:01 | Diagnostic Imaging Report ---
INDICATION: Elevated lactic acid. FINDINGS: Bowel gas pattern is nonspecific. Nasogastric tube is in place. There are no abnormal abdominal calcifications. There are postsurgical changes in the lumbar spine. IMPRESSION: Nonspecific bowel gas pattern. Dictated by: Dictated on workstation # [id number]
--- NOTE | 2019-08-17 21:13 | NUR ---
DR. AVALOS NOTIFIED OF CRITICAL LACTIC ACID-4.31.
--- NOTE | 2019-08-17 21:38 | NUR ---
DR. GONGORA HERE TO ASSESS PT. VERBAL ORDERS FOR CT SCAN ABD/PELVIS WITH CONTRAST.
[2019-08-17] MEDS ORDERED: HOLD METFORMIN - RECEIVED CONTRAST 20 ML VIAL IV SCH (22:15)
[2019-08-17] MEDS ORDERED: IOHEXOL 350 MG/ML 100 ML (OMNIPAQUE 350) VIAL IV ONE (22:15)
[2019-08-17] MEDS ORDERED: NS 100 ML (IVPB) BAG IV ONE (22:15)
[2019-08-18] VITALS (30 sets, daily range): BP systolic 89–129; BP diastolic 36–86
[2019-08-18] MEDS: RT-ALBUTEROL/IPRATROPIUM 3 ML (DUONEB) VIAL INH SCH ×6 (01:50→21:34)
[2019-08-18] MEDS: LACTATED RINGERS 1,000 ML IV SCH ×4 (01:50→19:48)
[2019-08-18] MEDS: VANCOMYCIN 1500 MG/NS 500 ML IVPB IV SCH ×4 (01:59→14:20)
[2019-08-18 03:11] LABS: ABG BASE EXCESS -7.4 MMOL/L (-2.5-2.5); ABG OXYGEN SATURATION 97 % (94-100); ABG PCO2 36 MMHG (35-45); ABG PO2 91 MMHG (79-93); ABG TCO2 18.8 MMOL/L (21.0-31.0)
[2019-08-18 03:12] LABS: BASOPHILS % (AUTO) 0 % (0-10); EOSINOPHILS % (AUTO) 0 % (0-10); HEMATOCRIT 30 % (35-52); HEMOGLOBIN 10.2 G/DL (11.5-16.0); LYMPHOCYTES # (AUTO) 1.2 X 10^3 (1.0-4.0); LYMPHOCYTES % (AUTO) 10 % (12-44); MEAN CORPUSCULAR HEMOGLOBIN 33 PG (25-34); MEAN CORPUSCULAR HGB CONC 34 G/DL (32-36); MEAN CORPUSCULAR VOLUME 96 FL (80-99); MEAN PLATELET VOLUME 8.9 FL (7.4-10.4); MONOCYTES # (AUTO) 0.7 X 10^3 (0.0-1.0); MONOCYTES % (AUTO) 6 % (0-12); NEUTROPHILS # (AUTO) 9.7 X 10^3 (1.8-7.8); NEUTROPHILS % (AUTO) 83 % (42-75); PLATELET COUNT 204 10^3/uL (130-400); RED CELL DISTRIBUTION WIDTH 13.5 % (10.0-14.5); WHITE BLOOD COUNT 11.6 10^3/uL (4.3-11.0)
[2019-08-18 03:14] LABS: ABG PH 7.31 (7.37-7.43)
[2019-08-18 03:15] LABS: ALLENS TEST ART LINE; INSPIRED O2 30%; PATIENT TEMP 37.2; VENTILATOR YES
[2019-08-18 03:33] LABS: BUN/CREATININE RATIO 9; CALCIUM 7.2 MG/DL (8.5-10.1); CARBON DIOXIDE 15 MMOL/L (21-32); CHLORIDE 107 MMOL/L (98-107); CREATININE SERUM 0.81 MG/DL (0.60-1.30); GFR ESTIMATED > 60; GLUCOSE 156 MG/DL (70-105); MAGNESIUM 1.7 MG/DL (1.6-2.4); PHOSPHORUS 2.6 MG/DL (2.3-4.7); POTASSIUM 3.8 MMOL/L (3.6-5.0); SODIUM 132 MMOL/L (135-145); TRIGLYCERIDES 92 MG/DL (<150)
[2019-08-18] MEDS: POTASSIUM CL 10MEQ/50ML IVPB 50 ML IV SCH (03:49)
[2019-08-18] MEDS: EPINEPHrine 1 MG INJECTION 2 MG in NS (IVPB) 248 ML IV SCH (03:49)
[2019-08-18] MEDS: MAGNESIUM 1 GM/100 ML IVPB 100 ML IV SCH ×3 (03:50→04:41)
[2019-08-18] MEDS: KCL 20 MEQ TAB (K-DUR) PO SCH (03:50)
[2019-08-18] MEDS: inSUlin ASPART (NovoLOG) 1 UNIT/0.01 ML (CHARGE PER UNIT) SC SCH ×4 (03:52→23:26)
--- NOTE | 2019-08-18 04:46 | Pulmonary Progress Note ---
Subjective Time Seen by a Provider: 07:12 Subjective/Events-last exam sedated on vent Sepsis Event Evaluation Height, Weight, BMI Height: '" Weight: lbs. oz. kg; 34.00 BMI Method: Focused Exam Lactate Level 08/17/19 20:20: Lactic Acid Level 4.31*H 08/18/19 00:06: Lactic Acid Level 4.43*H 08/18/19 03:00: Lactic Acid Level 3.87*H Lactic Acid Level Laboratory Tests Test 08/18/19 03:00 Lactic Acid Level 3.87 MMOL/L (0.50-2.00) *H Exam Exam Vital Signs Date Time Temp Pulse Resp B/P (MAP) Pulse Ox O2 Delivery O2 Flow Rate FiO2 08/18/19 04:00 Mechanical Ventilator 30 08/18/19 03:00 122 22 91/48 (62) 94 Mechanical Ventilator 30.00 08/18/19 02:00 115 22 109/47 (67) 93 Mechanical Ventilator 30.00 08/18/19 01:51 114 22 94 30 08/18/19 01:51 114 107/48 08/18/19 01:36 113 08/18/19 01:00 110 21 120/52 (74) 94 Mechanical Ventilator 30.00 08/18/19 00:00 111 21 123/52 (75) 94 Mechanical Ventilator 30.00 08/17/19 23:58 36.9 08/17/19 23:41 Mechanical Ventilator 30 08/17/19 23:38 112 104/53 08/17/19 23:00 115 20 86/55 (65) 93 Mechanical Ventilator 30.00 08/17/19 22:00 114 21 124/47 (72) 94 Mechanical Ventilator 30.00 08/17/19 21:09 112 22 94 30 08/17/19 21:00 112 21 130/48 (75) 94 Mechanical Ventilator 30.00 08/17/19 20:00 Mechanical Ventilator 30 08/17/19 20:00 113 22 129/47 (74) 94 Mechanical Ventilator 30.00 08/17/19 20:00 36.2 08/17/19 19:25 116 08/17/19 19:00 124 23 107/34 (58) 92 Mechanical Ventilator 30.00 08/17/19 18:00 108 22 114/43 (66) 94 Mechanical Ventilator 30.00 08/17/19 17:59 109 22 94 30 08/17/19 17:17 105 109/43 08/17/19 17:17 37.3 08/17/19 17:00 105 21 108/44 (65) 95 Mechanical Ventilator 30.00 08/17/19 16:15 Mechanical Ventilator 30 08/17/19 16:07 110 107/45 08/17/19 16:07 110 109/45 08/17/19 16:00 37.6 08/17/19 16:00 112 21 108/44 (65) 95 Mechanical Ventilator 30.00 08/17/19 15:09 36.7 115 94 30 08/17/19 15:00 112 22 112/47 (68) 96 Mechanical Ventilator 30.00 08/17/19 14:46 109 22 95 30 08/17/19 14:00 113 21 124/48 (73) 94 Mechanical Ventilator 30.00 08/17/19 13:00 114 21 118/64 (82) 93 Mechanical Ventilator 30.00 08/17/19 12:52 116 08/17/19 12:34 121/64 08/17/19 12:00 Mechanical Ventilator 30 08/17/19 12:00 110 21 93/52 (66) 94 Mechanical Ventilator 30.00 08/17/19 11:43 36.7 08/17/19 11:00 112 21 85/45 (58) 92 Mechanical Ventilator 30.00 08/17/19 10:51 Mechanical Ventilator 30.00 08/17/19 10:44 111 22 92 30 08/17/19 10:00 96 21 108/82 (91) 92 Mechanical Ventilator 21.00 08/17/19 09:30 106 104/51 08/17/19 09:29 104/51 08/17/19 09:00 107 22 101/43 (62) 93 Mechanical Ventilator 21.00 08/17/19 08:00 108 21 102/59 (73) 93 Mechanical Ventilator 21.00 08/17/19 08:00 36.7 08/17/19 08:00 Mechanical Ventilator 21 08/17/19 07:00 108 22 91/55 (67) 91 Mechanical Ventilator 21.00 08/17/19 06:44 102 08/17/19 06:41 101 22 94 21 08/17/19 06:40 102 95/55 08/17/19 06:11 107 93/59 08/17/19 06:00 107 22 93/59 (70) 94 Mechanical Ventilator 21.00 08/17/19 05:24 Mechanical Ventilator 21.00 08/17/19 05:00 104 18 108/65 (79) 99 Mechanical Ventilator 30.00 I & O 08/18/19 07:00 Intake Total 6331 ml Output Total 2650 ml Balance 3681 ml Height & Weight Height: '" Weight: lbs. oz. kg; 34.00 BMI Method: General Appearance: Chronically ill, Obese HEENT: PERRL/EOMI; No Scleral Icterus (L), No Scleral Icterus (R) Neck: Full Range of Motion, Supple Respiratory: Decreased Breath Sounds, Other (intubated) Cardiovascular: No Murmur, Tachycardia Capillary Refill: Greater Than 3 Seconds Peripheral Pulses: 1+ Radial Pulses (R), 1+ Radial Pulses (L) Gastrointestinal: soft, no organomegaly Extremity: Normal Capillary Refill, No Calf Tenderness Neurologic/Psychiatric: Other (easily arousable to verbal stimuli, denied pain- did not answer any other questions) Skin: Normal Color, Warm/Dry Lymphatic: No Adenopathy Results Lab Laboratory Tests 08/16/19 21:38 08/17/19 03:15 08/17/19 12:40 08/18/19 03:00 Assessment/Plan Assessment/Plan Acute respiratory failure probable aspiration -Currently sedated on vent -Vanco and Zosyn -PNA does not explain degree of sepsis Severe sepsis with shock- r/o abdominal sepsis. -Levophed gtt, vasopressin -Add solucortef -Repeat CT of abd/pelvis is now showing colitis. -Surgery is following -IVF NS at 250 -- decrease to 150cc/hr -UA is negative -Sprague cultures -- Negative thus far GIB -Occult stool is positive -Hold lovenox -Add Protonix Q 12 Found unresponsive at home per family Metabolic encephalopathy Gastroenteritis with N/V/D -Cdiff toxin -- Negative -Stool cultures pending RAFAT REINA DO Aug 18, 2019 04:46
[2019-08-18] MEDS: PIPERACILLIN/TAZO 4.5 GM/NS 100 ML IV SCH ×6 (05:24→21:07)
[2019-08-18] MEDS: HYDROCORTISONE 100 MG/2 ML (Solu-CORTEF) VIAL IV SCH ×3 (05:24→21:07)
[2019-08-18] MEDS: fentaNYL INJECTION 1,250 MCG in NS (IVPB) 250 ML IV SCH ×2 (05:24→11:35)
--- NOTE | 2019-08-18 06:31 | Diagnostic Imaging Report ---
EXAMINATION: CT Abdomen and Pelvis with intravenous contrast. TECHNIQUE: Multiple contiguous axial images were obtained through the abdomen and pelvis after the uneventful administration of intravenous contrast. All CT scans use one or more of the following dose optimizing techniques: automated exposure control, MA and/or KvP adjustment based on a patient size and exam type, or iterative reconstruction. HISTORY: Abdominal pain. Elevated lactic acid. COMPARISON: 08/16/2019. FINDINGS: The heart is unremarkable. Continued bibasilar opacities are seen, left greater than right. The liver, spleen, pancreas, adrenal glands, and kidneys have a normal appearance. The gallbladder is surgically absent. There is no pathologically enlarged mesenteric or retroperitoneal adenopathy. The enteric tube is visualized the tip in the distal stomach. The bowel loops are nondilated. Fluid-filled nondilated loops of small bowel are seen in the mid and lower abdomen. The appendix is visualized in the right lower quadrant and has a normal appearance. Mild bowel wall thickening is seen in the distal transverse and descending colon. Scattered diverticuli are seen without evidence of acute diverticulitis. Stable trace free fluid is seen in the abdomen and pelvis. There is no free air. No acute osseous abnormalities. Posterior fusion changes are visualized from L4 to S1 with bipedicle screws and fusion rods. There is calcified aortic and iliac atherosclerotic plaque without aneurysm. The urinary bladder is decompressed with a Jimenez in place. There is no free air, loculated collection, or adenopathy in the pelvis. IMPRESSION: 1. Fluid-filled nondilated loops of small bowel in the mid and lower abdomen which can be seen with enteritis. Mild colitis may also be present in the transverse and descending colon. No evidence of bowel obstruction. Stable trace amount of free fluid in the abdomen and pelvis. 2. Continued bibasilar opacities, left greater than right. This may represent infection or atelectasis. 3. Scattered diverticuli without evidence of acute diverticulitis. Agree with overnight report. Dictated by: Dictated on workstation # [id number]
--- NOTE | 2019-08-18 07:13 | Diagnostic Imaging Report ---
INDICATION: Respiratory failure. COMPARISON: 08/17/2019 TECHNIQUE: Single frontal view of the chest. FINDINGS: The endotracheal tube is approximately 2.5 cm from the rosmery. Lung volumes are low. The cardiac silhouette is mildly prominent but likely accentuated by the low lung volumes. An enteric tube crosses the [id number]. The right central line tip projects over the SVC. No significant pleural effusion or pneumothorax is seen. There is mild airspace opacity in the left upper lobe. IMPRESSION: 1. Low lung volumes with mildly increased airspace opacity in the left upper lobe, may represent developing infiltrate. 2. Stable tubes and line. Dictated by: Dictated on workstation # [id number]
--- NOTE | 2019-08-18 07:24 | NUR ---
Art line clotted off-art line dc'd at this time.
[2019-08-18] MEDS: PANTOPRAZOLE 40 MG (PROTONIX) VIAL IV SCH ×2 (07:54→21:07)
[2019-08-18] MEDS ORDERED: POTASSIUM PHOSPHATE INJ 15 MM in NS (IVPB) 250 ML IV ONE (08:00)
--- NOTE | 2019-08-18 08:11 | Physical Therapy Progress Note ---
Therapy Progress Note Patient still intubated and sedated. Will check patient status daily and start when appropriate. JAYSHREE RANDHAWA PT Aug 18, 2019 08:11
--- NOTE | 2019-08-18 08:34 | Occ Therapy Progress Note ---
Therapy Progress Note Continuing to monitor pt. who is currently sedated and on ventilator support. [id number] ALONZO JASON OT Aug 18, 2019 08:34
--- NOTE | 2019-08-18 08:47 | Progress Note - Surgery ---
LAAZRO [facility]ARRO [facility] / [facility] 08/18/19 0847: Subjective Date Seen by a Provider: Aug 18, 2019 Time Seen by a Provider: 08:37 Subjective/Events-last exam Patient was seen and examined. No one is at bedside. Patient is sedated and intubated. Arterial line was placed yesterday but was removed after it clotted. She had two small oozy non-bloody bowel movements over night. Yesterday she had two large watery brown non-bloody bowel movements. Per nurse, staff palpated her abdomen and she jumped out in pain, even though she is sedated. Her nurse could not elicit the same response. I palpated her abdomen during my visit this morning and there was no response. Review of Systems General: Other (review of systems could not be obtained, patient is intubated and sedated) Focused Exam Lactate Level 08/18/19 03:00: Lactic Acid Level 3.87*H 08/18/19 05:15: Lactic Acid Level 3.45*H 08/18/19 07:15: Lactic Acid Level 3.17*H Lactic Acid Level Laboratory Tests Test 08/18/19 05:15 08/18/19 07:15 Lactic Acid Level 3.45 MMOL/L (0.50-2.00) *H 3.17 MMOL/L (0.50-2.00) *H Objective Exam Vital Signs Date Time Temp Pulse Resp B/P (MAP) Pulse Ox O2 Delivery O2 Flow Rate FiO2 08/18/19 07:00 122 08/18/19 06:32 121 28 92 30 08/18/19 06:02 112 22 92/48 (63) 93 Mechanical Ventilator 30.00 08/18/19 05:00 111 21 90/50 (63) 94 Mechanical Ventilator 30.00 08/18/19 04:50 37.2 08/18/19 04:00 Mechanical Ventilator 30 08/18/19 04:00 112 21 91/46 (61) 95 Mechanical Ventilator 30.00 08/18/19 03:00 122 22 91/48 (62) 94 Mechanical Ventilator 30.00 08/18/19 02:00 115 22 109/47 (67) 93 Mechanical Ventilator 30.00 08/18/19 01:51 114 22 94 30 08/18/19 01:51 114 107/48 08/18/19 01:36 113 2/25/20 01:00 110 21 120/52 (74) 94 Mechanical Ventilator 30.00 08/18/19 00:00 111 21 123/52 (75) 94 Mechanical Ventilator 30.00 08/17/19 23:58 36.9 08/17/19 23:41 Mechanical Ventilator 30 08/17/19 23:38 112 104/53 08/17/19 23:00 115 20 86/55 (65) 93 Mechanical Ventilator 30.00 08/17/19 22:00 114 21 124/47 (72) 94 Mechanical Ventilator 30.00 08/17/19 21:09 112 22 94 30 08/17/19 21:00 112 21 130/48 (75) 94 Mechanical Ventilator 30.00 08/17/19 20:00 Mechanical Ventilator 30 08/17/19 20:00 113 22 129/47 (74) 94 Mechanical Ventilator 30.00 08/17/19 20:00 36.2 08/17/19 19:25 116 08/17/19 19:00 124 23 107/34 (58) 92 Mechanical Ventilator 30.00 08/17/19 18:00 108 22 114/43 (66) 94 Mechanical Ventilator 30.00 08/17/19 17:59 109 22 94 30 08/17/19 17:17 105 109/43 08/17/19 17:17 37.3 08/17/19 17:00 105 21 108/44 (65) 95 Mechanical Ventilator 30.00 08/17/19 16:15 Mechanical Ventilator 30 08/17/19 16:07 110 107/45 08/17/19 16:07 110 109/45 08/17/19 16:00 37.6 08/17/19 16:00 112 21 108/44 (65) 95 Mechanical Ventilator 30.00 08/17/19 15:09 36.7 115 94 30 08/17/19 15:00 112 22 112/47 (68) 96 Mechanical Ventilator 30.00 08/17/19 14:46 109 22 95 30 08/17/19 14:00 113 21 124/48 (73) 94 Mechanical Ventilator 30.00 08/17/19 13:00 114 21 118/64 (82) 93 Mechanical Ventilator 30.00 08/17/19 12:52 116 08/17/19 12:34 121/64 08/17/19 12:00 Mechanical Ventilator 30 2/24/20 12:00 110 21 93/52 (66) 94 Mechanical Ventilator 30.00 08/17/19 11:43 36.7 08/17/19 11:00 112 21 85/45 (58) 92 Mechanical Ventilator 30.00 08/17/19 10:51 Mechanical Ventilator 30.00 08/17/19 10:44 111 22 92 30 08/17/19 10:00 96 21 108/82 (91) 92 Mechanical Ventilator 21.00 08/17/19 09:30 106 104/51 08/17/19 09:29 104/51 08/17/19 09:00 107 22 101/43 (62) 93 Mechanical Ventilator 21.00 I & O 08/18/19 07:00 Intake Total 8466 ml Output Total 3500 ml Balance 4966 ml Capillary Refill : Greater Than 3 Seconds General Appearance: No Apparent Distress, Chronically ill, Obese HEENT: No Scleral Icterus (L), No Scleral Icterus (R); Other (ET tube in place) Neck: Supple, Other (central line in place) Respiratory: Lungs Clear, Other (intubated) Cardiovascular: No Murmur, Tachycardia Peripheral Pulses: 1+ Radial Pulses (R), 1+ Radial Pulses (L) Gastrointestinal: soft, no pulsatile mass Extremity: No Pedal Edema, Swelling (hands ) Neurologic/Psychiatric: Other (not arousable to verbal stimuli, intubated and sedated) Skin: Normal Color, Warm/Dry Lymphatic: No Adenopathy (neck, axilla, or groin) Results Lab Laboratory Tests 08/17/19 10:30: Stool Occult Blood Immunoassay POSITIVEH 08/17/19 11:37: Glucometer 217H 08/17/19 12:40: White Blood Count 21.3H, Red Blood Count 3.88L, Hemoglobin 12.6, Hematocrit 37, Mean Corpuscular Volume 94, Mean Corpuscular Hemoglobin 32, Mean Corpuscular Hemoglobin Concent 35, Red Cell Distribution Width 13.3, Platelet Count 346, Mean Platelet Volume 8.8, Neutrophils (%) (Auto) 88H, Lymphocytes (%) (Auto) 7L, Monocytes (%) (Auto) 6, Eosinophils (%) (Auto) 0, Basophils (%) (Auto) 0, Neutrophils # (Auto) 18.7H, Lymphocytes # (Auto) 1.5, Monocytes # (Auto) 1.2H, Eosinophils # (Auto) 0.0, Basophils # (Auto) 0.0, Sodium Level 130L, Potassium Level 3.9, Chloride Level 103, Carbon Dioxide Level 18L, Anion Gap 9, Blood Urea Nitrogen 12, Creatinine 1.07, Estimat Glomerular Filtration Rate 53, BUN/Creatinine Ratio 11, Glucose Level 224H, Lactic Acid Level 2.09*H, Calcium Level 7.4L, Corrected Calcium 8.2L, Phosphorus Level 3.1, Magnesium Level 1.5L, Total Bilirubin 0.4, Aspartate Amino Transf (AST/SGOT) 41H, Alanine Aminotransferase (ALT/SGPT) 38, Alkaline Phosphatase 64, Total Protein 4.8L, Albumin 3.0L, Serum Alcohol < 10 08/17/19 14:10: 08/17/19 14:56: Lactic Acid Level 3.00*H 08/17/19 17:20: Lactic Acid Level 3.42*H 08/17/19 17:56: Glucometer 186H 08/17/19 20:20: Lactic Acid Level 4.31*H 08/17/19 23:32: Glucometer 174H 08/18/19 00:06: Lactic Acid Level 4.43*H 08/18/19 03:00: Lactic Acid Level 3.87*H, White Blood Count 11.6H, Red Blood Count 3.11L, Hemoglobin 10.2L, Hematocrit 30L, Mean Corpuscular Volume 96, Mean Corpuscular Hemoglobin 33, Mean Corpuscular Hemoglobin Concent 34, Red Cell Distribution Width 13.5, Platelet Count 204, Mean Platelet Volume 8.9, Neutrophils (%) (Auto) 83H, Lymphocytes (%) (Auto) 10L, Monocytes (%) (Auto) 6, Eosinophils (%) (Auto) 0, Basophils (%) (Auto) 0, Neutrophils # (Auto) 9.7H, Lymphocytes # (Auto) 1.2, Monocytes # (Auto) 0.7, Eosinophils # (Auto) 0.0, Basophils # (Auto) 0.0, Blood Gas Puncture Site RIGHT RADIAL ARTLINE, Blood Gas Patient Temperature 37.2, Arterial Blood pH 7.31*L, Arterial Blood Partial Pressure CO2 36, Arterial Blood Partial Pressure O2 91, Arterial Blood HCO3 18L, Arterial Blood Total CO2 18.8L, Arterial Blood Oxygen Saturation 97, Arterial Blood Base Excess -7.4L, Blue Test ART LINE, Blood Gas Ventilator Setting YES, Blood Gas Inspired Oxygen 30%, Sodium Level 132L, Potassium Level 3.8, Chloride Level 107, Carbon Dioxide Level 15L, Anion Gap 10, Blood Urea Nitrogen 7, Creatinine 0.81, Estimat Glomerular Filtration Rate > 60, BUN/Creatinine Ratio 9, Glucose Level 156H, Calcium Level 7.2L, Phosphorus Level 2.6, Magnesium Level 1.7, Triglycerides Level 92 08/18/19 05:15: Lactic Acid Level 3.45*H 08/18/19 07:15: Lactic Acid Level 3.17*H Microbiology 08/17/19 Fecal Leukocyte Stain - Final, Complete 08/16/19 Blood Culture - Preliminary, Resulted No growth 08/16/19 Urine Culture - Final, Complete NO GROWTH 08/16/19 Influenza Types A,B Antigen ([facility]) - Final, Complete Assessment/Plan Assessment/Plan Assessment/Plan Abdominal pain Diarrhea Altered mental status Acute Respiratory failure Leukocytosis - improving Lactic acidosis - improving + occult blood test Blood cultures - staph Hgb trending down - could be dilutional Positive occult blood test. Repeat CT of abd/pelvis is showing fluid filled loops that can maybe be enteritis, mild colitis and some stable trace free fluid. Lung opacities are increasing, more so on the L. Blood cultures were positive for staph and patient is already on vanco. Other respiratory cultures are pending. There may still be a component of OD based on information from family and prior history. Possibly will do EGD/Colonoscopy to evaluate source of bleed. JOSE KHANNA DO 08/18/19 1619: Subjective Time Seen by a Provider: 11:36 Subjective/Events-last exam Pt seen and examined, sedated on vent. Events of last night noted. Review of Systems unable to obtain, pt intubated and sedated Objective Exam General Appearance: Chronically ill, Obese HEENT: No Scleral Icterus (L), No Scleral Icterus (R) Respiratory: Lungs Clear, Other (intubated) Cardiovascular: Tachycardia Gastrointestinal: soft, no organomegaly Extremity: Pedal Edema, Swelling (hands ) Skin: Normal Color, Warm/Dry Assessment/Plan Assessment/Plan Assessment/Plan I looked at the CT myself last night and she may have some Colitis of descending colon and sigmoid; WBC and Lactic Acid are trending down. Would continue with non-operative management. Supervisory-Addendum Brief Verification & Attestation Participated in pt care: history, MDM, physical Personally performed: exam, history, MDM Care discussed with: Medical Student Procedures: n/a Verification and Attestation of Medical Student E/M Service A medical student performed and documented this service. I then reviewed and mac ified all information documented by the medical student and made modifications to such information, when appropriate. I personally performed a physical exam, medical decision making and then discussed any differences between the notes and made revisions as necessary to create one note. Jose Khanna , 08/18/19 , 16:19 LAZARO PIZARR[facility] Aug 18, 2019 08:47 JOSE KHANNA DO Aug 18, 2019 16:19
--- NOTE | 2019-08-18 08:57 | Progress Note - Hospitalist ---
Subjective HPI/CC On Admission Date Seen by Provider: Aug 18, 2019 Time Seen by Provider: 08:56 Pt is intubated and sedated and unable to provide any history. She is a 59yo CF who presented to the ER due to AMS. Per her daughter she was reportedly normal yesterday but went to take a nap and then when she woke up yesterday evening was very confused. Her decided to call the ambulance when her eyes rolled back in her head and she was unresponsive. Reportedly she has a history of overdoses but her daughter states that the patient's sister sets up her meds and she does not have access to her meds. Daughter also states that she is very unhealthy and smokes a lot and drinks 3 2L of diet soda a day. She also states her mom has been telling her "I'm not going to be around much longer." but has not disclosed any health problems to her. Subjective/Events-last exam Pt remains intubated and sedated. No family at bedside. Labs improving from yesterday. Focused Exam Lactate Level 08/18/19 07:15: Lactic Acid Level 3.17*H 08/18/19 09:30: Lactic Acid Level 3.28*H 08/18/19 13:00: Lactic Acid Level 3.48*H Lactic Acid Level Laboratory Tests Test 08/18/19 13:00 Lactic Acid Level 3.48 MMOL/L (0.50-2.00) *H Objective Exam Vital Signs Vital Signs Date Time Temp Pulse Resp B/P (MAP) Pulse Ox O2 Delivery O2 Flow Rate FiO2 08/18/19 15:27 123 109/57 08/18/19 15:03 Mechanical Ventilator 30 08/18/19 14:45 22 95 08/18/19 14:00 30.00 08/18/19 11:08 37.2 Capillary Refill : Less Than 3 Seconds General Appearance: Other (intuabted and sedated) Respiratory: Lungs Clear, Other (sedated) Cardiovascular: No Murmur, Tachycardia Gastrointestinal: Normal Bowel Sounds, Soft Extremity: No Calf Tenderness, No Pedal Edema Neurologic/Psychiatric: Other (sedated, appears comfortable) Results/Procedures Lab Laboratory Tests 08/18/19 03:00 Patient resulted labs reviewed. Imaging: Reviewed Imaging Report Assessment/Plan Assessment and Plan Assess & Plan/Chief Complaint Septic Shock Possible PNA o Continue on Vanc and Zosyn Repeat Ct shows mild colitis lactic acid improving Continue Levophed and Vasopressin to keep MAP >65 Culture with coag neg staph, send for ID C diff negative Rapid flu negative pending RVP Acute Respiratory Failure COPD Maintain on vent Pulm consulted, appreciate recs RVP pending MAT protocol NIDDMII Daughter states she was on insulin but quit taking it SSI Accuchecks Q6 Hold metformin as may be contributing to lactic acidosis Anxiety and Depression Broached topic of overdose with daughter and she states that's not a possibility as meds are monitored Chronic Pain On hydrocodone at home Critical Care Critically Ill Patient Diagnosis/Problems Diagnosis/Problems (1) Lactic acid acidosis (2) Respiratory failure with hypoxia Status: Acute Qualifiers: Chronicity: acute Qualified Codes: J96.01 - Acute respiratory failure with hypoxia (3) Colitis Status: Acute (4) Septic shock Status: Acute ANTONIO MCCARTY MD Aug 18, 2019 08:57
[2019-08-18] MEDS ORDERED: ENOXAPARIN 40 MG/0.4 ML (LOVENOX) SYR SC SCH (09:00)
--- NOTE | 2019-08-18 09:45 | NUR ---
PT TACHYCARDIC IN 130'S SUSTAINED, TEMP 100.0. DR REINA NOTIFIED.
[2019-08-18] MEDS: NOREPINEPHRINE 4 MG/250 ML 250 ML IV SCH ×2 (09:57→22:19)
--- NOTE | 2019-08-18 11:20 | NUR ---
Pastoral care visit.
[2019-08-18] MEDS ORDERED: TROUGH ORDER-PHARMACY XX NR (13:00)
[2019-08-18 13:03] LABS: PARAINFLU 1 PCR Not Detected (Not Detected); PARAINFLU 2 PCR Not Detected (Not Detected); RSV PCR TEST Not Detected (Not Detected)
[2019-08-18] MEDS ORDERED: LACTATED RINGERS 1,000 ML IV ONE (14:00)
[2019-08-18] MEDS ORDERED: LORazepam INJ 2 MG/ML (ATIVAN) VIAL ONE (15:20)
[2019-08-18] MEDS ORDERED: LORazepam INJ 2 MG/ML (ATIVAN) VIAL IVP PRN (15:30)
[2019-08-18] MEDS: MICONAZOLE 2% POWDER (DESENEX AF) 90 GM TOP SCH (21:07)
[2019-08-19] VITALS (30 sets, daily range): BP systolic 90–190; BP diastolic 44–107
[2019-08-19] MEDS: fentaNYL INJECTION 1,250 MCG in NS (IVPB) 250 ML IV SCH (00:59)
[2019-08-19] MEDS: RT-ALBUTEROL/IPRATROPIUM 3 ML (DUONEB) VIAL INH SCH ×6 (01:38→21:48)
[2019-08-19] MEDS: VANCOMYCIN 1500 MG/NS 500 ML IVPB IV SCH ×2 (01:39)
[2019-08-19] MEDS: LACTATED RINGERS 1,000 ML IV SCH ×2 (02:47→14:18)
[2019-08-19 03:01] LABS: ABG BASE EXCESS -3.9 MMOL/L (-2.5-2.5); ABG OXYGEN SATURATION 98 % (94-100); ABG PCO2 41 MMHG (35-45); ABG PO2 106 MMHG (79-93); BASOPHILS % (AUTO) 0 % (0-10); EOSINOPHILS % (AUTO) 0 % (0-10); HEMATOCRIT 25 % (35-52); HEMOGLOBIN 8.5 G/DL (11.5-16.0); LYMPHOCYTES # (AUTO) 0.7 X 10^3 (1.0-4.0); LYMPHOCYTES % (AUTO) 7 % (12-44); MEAN CORPUSCULAR HEMOGLOBIN 33 PG (25-34); MEAN CORPUSCULAR HGB CONC 34 G/DL (32-36); MEAN CORPUSCULAR VOLUME 98 FL (80-99); MEAN PLATELET VOLUME 8.6 FL (7.4-10.4); MONOCYTES # (AUTO) 0.4 X 10^3 (0.0-1.0); MONOCYTES % (AUTO) 4 % (0-12); NEUTROPHILS # (AUTO) 9.5 X 10^3 (1.8-7.8); NEUTROPHILS % (AUTO) 89 % (42-75); PLATELET COUNT 175 10^3/uL (130-400); RED CELL DISTRIBUTION WIDTH 14.3 % (10.0-14.5); WHITE BLOOD COUNT 10.7 10^3/uL (4.3-11.0)
[2019-08-19 03:02] LABS: ABG PH 7.33 (7.37-7.43)
[2019-08-19 03:03] LABS: ALLENS TEST YES-POS; INSPIRED O2 40%; PATIENT TEMP 37.8; VENTILATOR YES
[2019-08-19] MEDS: EPINEPHrine 1 MG INJECTION 2 MG in NS (IVPB) 248 ML IV SCH (03:16)
--- NOTE | 2019-08-19 03:18 | Pulmonary Progress Note ---
RHIANNON GOMEZ MEDICAL STUDENT 08/19/19 0318: Subjective Date Seen by a Provider: Aug 19, 2019 Time Seen by a Provider: 03:17 Subjective/Events-last exam Pt continues to be sedated, on ventilator. No family at bedside. Review of Systems Unable to obtain, pt sedated Sepsis Event Evaluation Height, Weight, BMI Height: '" Weight: lbs. oz. kg; 34.00 BMI Method: Focused Exam Sepsis Stage: Septic Shock Possible Source: GI Tract/Intra-Abdominal Lactate Level 08/18/19 13:00: Lactic Acid Level 3.48*H 08/18/19 16:55: Lactic Acid Level 2.53*H 08/18/19 22:11: Lactic Acid Level 1.81 Respiratory: Lungs Clear, Normal Breath Sounds Cardiovascular: Tachycardia, Other (diffusely edematous) Capillary Refill: Greater Than 3 Seconds Peripheral Pulses: 1+ Dorsalis Pedis (R), 1+ Left Dors-Pedis (L), 1+ Radial Pulses (R), 1+ Radial Pulses (L) Skin: normal color, warm/dry Exam Exam Vital Signs Date Time Temp Pulse Resp B/P (MAP) Pulse Ox O2 Delivery O2 Flow Rate FiO2 08/19/19 02:48 91/42 08/19/19 01:38 108 22 96 40 08/19/19 00:00 113 21 100/52 (68) 96 Mechanical Ventilator 40.00 08/18/19 23:57 Mechanical Ventilator 40 08/18/19 23:24 37.0 08/18/19 23:00 113 22 109/56 (73) 96 Mechanical Ventilator 40.00 08/18/19 22:19 106/52 08/18/19 22:00 109 22 106/52 (70) 97 Mechanical Ventilator 40.00 08/18/19 21:34 105 22 97 40 08/18/19 21:00 105 22 95/48 (64) 96 Mechanical Ventilator 40.00 08/18/19 20:58 106/57 08/18/19 20:00 Mechanical Ventilator 40 08/18/19 20:00 37.0 08/18/19 20:00 111 22 116/57 (76) 96 Mechanical Ventilator 40.00 08/18/19 19:00 114 08/18/19 19:00 114 21 116/60 (78) 96 Mechanical Ventilator 40.00 08/18/19 18:07 110 22 95 30 08/18/19 18:00 110 20 117/61 (79) 96 Mechanical Ventilator 40.00 08/18/19 17:00 116 21 118/56 (76) 93 Mechanical Ventilator 40.00 08/18/19 16:00 117 22 119/49 (72) 93 Mechanical Ventilator 40.00 08/18/19 16:00 37.4 08/18/19 15:27 123 109/57 08/18/19 15:18 Mechanical Ventilator 40.00 08/18/19 15:03 Mechanical Ventilator 30 08/18/19 15:00 123 23 110/40 (63) 90 Mechanical Ventilator 30.00 08/18/19 14:45 116 22 95 30 08/18/19 14:00 120 23 106/41 (62) 93 Mechanical Ventilator 30.00 08/18/19 13:00 121 22 97/36 (56) 94 Mechanical Ventilator 30.00 08/18/19 13:00 121 08/18/19 12:00 122 22 89/46 (60) 94 Mechanical Ventilator 30.00 08/18/19 11:43 Mechanical Ventilator 30 08/18/19 11:08 37.2 08/18/19 11:00 125 16 106/50 (68) 93 Mechanical Ventilator 30.00 08/18/19 10:50 123 24 94 30 08/18/19 10:00 130 22 95/50 (65) 92 Mechanical Ventilator 30.00 08/18/19 09:57 130 106/53 08/18/19 09:50 133 106/53 08/18/19 09:41 37.0 08/18/19 09:00 117 21 117/53 (74) 94 Mechanical Ventilator 30.00 08/18/19 08:00 Mechanical Ventilator 30 08/18/19 08:00 122 22 125/52 (76) 94 Mechanical Ventilator 30.00 08/18/19 08:00 37.3 08/18/19 07:00 122 08/18/19 07:00 122 23 92/86 (88) 92 Mechanical Ventilator 30.00 08/18/19 06:32 121 28 92 30 08/18/19 06:02 112 22 92/48 (63) 93 Mechanical Ventilator 30.00 08/18/19 05:00 111 21 90/50 (63) 94 Mechanical Ventilator 30.00 08/18/19 04:50 37.2 08/18/19 04:00 Mechanical Ventilator 30 08/18/19 04:00 112 21 91/46 (61) 95 Mechanical Ventilator 30.00 I & O 08/19/19 06:59 Intake Total 6530 ml Output Total 2500 ml Balance 4030 ml Height & Weight Height: '" Weight: lbs. oz. kg; 34.00 BMI Method: General Appearance: Chronically ill, Obese HEENT: No Scleral Icterus (L), No Scleral Icterus (R) Neck: Supple, Other (central line in place) Respiratory: Lungs Clear, Other (intubated) Cardiovascular: Tachycardia Capillary Refill: Less Than 3 Seconds Peripheral Pulses: 1+ Radial Pulses (R), 1+ Radial Pulses (L) Gastrointestinal: normal bowel sounds (heel pads for pressure ulcers and SCDs in place), soft, no organomegaly Extremity: Pedal Edema, Swelling (hands ) Neurologic/Psychiatric: Other (sedated, appears comfortable) Skin: Normal Color, Warm/Dry Lymphatic: No Adenopathy (neck, axilla, or groin) Results Lab Laboratory Tests 08/17/19 12:40 08/18/19 03:00 08/19/19 02:45 Assessment/Plan Assessment/Plan Acute respiratory failure probable aspiration -Currently sedated on vent -Vanco and Zosyn -CXR continues to be unconcerning for PNA --RVP negative Severe sepsis with shock- r/o abdominal sepsis. -Levophed gtt, vasopressin -Add solucortef -Repeat CT of abd/pelvis is still showing colitis and and now also enteritis. -Surgery is following -Maintain IVF at 150 cc/hour -Initial UA is negative, Repeat UA -WBC trending down, now at 10.7 -Lactate waxing and waning, most recent at 1.81 GIB -Occult stool is positive -Hold lovenox -Continue Protonix Q 12 Found unresponsive at home per family Metabolic encephalopathy Gastroenteritis with N/V/D -Cdiff toxin -- Negative -Stool cultures pending NIIDM -Continue SSI Chronic opioid and benzo use - Fentanyl for pain management and Lorazepam to decrease risk of withdrawal Anemia Hgb 8.5, could be dilutional, but considering was Hemeoccult positive, consider consulting surgery for colonoscopy Critical Care: Ventilator Management RAFAT REINA DO 08/19/19 0452: Subjective Time Seen by a Provider: 04:49 Subjective/Events-last exam Sedated on vent Exam Exam General Appearance: Chronically ill, Obese Neck: Supple, Other (central line in place) Respiratory: Lungs Clear, Other (intubated) Cardiovascular: Tachycardia Extremity: Pedal Edema, Swelling (hands ) Skin: Normal Color, Warm/Dry Lymphatic: No Adenopathy (neck, axilla, or groin) Assessment/Plan Assessment/Plan Acute respiratory failure probable aspiration -Currently sedated on vent -Vanco and Zosyn -will start Lasix and decrease IVF once BP is improved. --RVP negative Severe sepsis with shock- r/o abdominal sepsis. -Levophed gtt, vasopressin -solucortef -Repeat CT of abd/pelvis is still showing colitis and and now also enteritis. -Surgery is following -Maintain IVF at 150 cc/hour -Initial UA is negative, Repeat UA -WBC trending down, now at 10.7 -Lactate waxing and waning, most recent at 1.81 GIB -Occult stool is positive -Hold lovenox -Continue Protonix Q 12 Found unresponsive at home per family Metabolic encephalopathy Gastroenteritis with N/V/D -Cdiff toxin -- Negative -Stool cultures pending NIIDM -Continue SSI Chronic opioid and benzo use - Fentanyl for pain management and Lorazepam to decrease risk of withdrawal Anemia Repeat CBC at 11 RHIANNON GOMEZ MEDICAL STUDENT Aug 19, 2019 03:18 RAFAT REINA DO Aug 19, 2019 04:52
[2019-08-19 03:23] LABS: BUN/CREATININE RATIO 9; CALCIUM 7.5 MG/DL (8.5-10.1); CARBON DIOXIDE 19 MMOL/L (21-32); CHLORIDE 109 MMOL/L (98-107); CREATININE SERUM 0.76 MG/DL (0.60-1.30); GFR ESTIMATED > 60; GLUCOSE 126 MG/DL (70-105); MAGNESIUM 1.7 MG/DL (1.6-2.4); PHOSPHORUS 1.6 MG/DL (2.3-4.7); POTASSIUM 3.3 MMOL/L (3.6-5.0); SODIUM 137 MMOL/L (135-145)
[2019-08-19] MEDS: KCL 20 MEQ TAB (K-DUR) PO SCH (04:13)
[2019-08-19] MEDS: POTASSIUM CL 10MEQ/50ML IVPB 50 ML IV SCH ×3 (04:13→05:03)
[2019-08-19] MEDS: MAGNESIUM 1 GM/100 ML IVPB 100 ML IV SCH ×3 (04:13→05:04)
[2019-08-19] MEDS ORDERED: LORazepam INJ 2 MG/ML (ATIVAN) VIAL IVP PRN (04:45)
[2019-08-19] MEDS: DexMEDEtomidine 250 ML DRIP 250 ML IV SCH ×3 (04:59→22:42)
[2019-08-19] MEDS: inSUlin ASPART (NovoLOG) 1 UNIT/0.01 ML (CHARGE PER UNIT) SC SCH ×3 (05:04→18:15)
[2019-08-19] MEDS: HYDROCORTISONE 100 MG/2 ML (Solu-CORTEF) VIAL IV SCH ×3 (05:34→21:00)
[2019-08-19] MEDS: PIPERACILLIN/TAZO 4.5 GM/NS 100 ML IV SCH ×6 (05:34→21:00)
[2019-08-19] MEDS ORDERED: FUROSEMIDE 40 MG/4 ML INJ (LASIX) ONE (06:29)
[2019-08-19] MEDS ORDERED: FUROSEMIDE 40 MG/4 ML INJ (LASIX) IVP ONE (06:45)
--- NOTE | 2019-08-19 07:32 | Progress Note - Surgery ---
LAZARO PIZARRO [facility] 08/19/19 0732: Subjective Date Seen by a Provider: Aug 19, 2019 Time Seen by a Provider: 07:19 Subjective/Events-last exam Patient was seen and examined. She is sedated and intubated and not responding to verbal stimuli. No family at bedside. Labs are improving. Per nurse overnight she had no bowel movements. Sedation has been turned down and they are planning to wean her off the vent. No peritoneal signs were elicited during abdominal exam. Review of Systems Could not obtain, patient is sedated and intubated. Focused Exam Lactate Level 08/18/19 13:00: Lactic Acid Level 3.48*H 08/18/19 16:55: Lactic Acid Level 2.53*H 08/18/19 22:11: Lactic Acid Level 1.81 Objective Exam Vital Signs Date Time Temp Pulse Resp B/P (MAP) Pulse Ox O2 Delivery O2 Flow Rate FiO2 08/19/19 06:50 105 22 94 30 08/19/19 06:00 110 22 125/65 (85) 94 Mechanical Ventilator 30.00 08/19/19 05:00 108 22 94/44 (61) 93 Mechanical Ventilator 30.00 08/19/19 04:59 108 08/19/19 04:01 Mechanical Ventilator 30 08/19/19 04:00 110 22 95/47 (63) 93 Mechanical Ventilator 30.00 08/19/19 03:15 111 22 93/48 (63) 97 Mechanical Ventilator 30.00 08/19/19 03:15 Mechanical Ventilator 30.00 08/19/19 02:48 91/42 08/19/19 02:00 112 22 90/45 (60) 96 Mechanical Ventilator 40.00 08/19/19 01:38 108 22 96 40 08/19/19 01:00 111 21 90/45 (60) 96 Mechanical Ventilator 40.00 08/19/19 01:00 111 08/19/19 00:00 113 21 100/52 (68) 96 Mechanical Ventilator 40.00 08/18/19 23:57 Mechanical Ventilator 40 08/18/19 23:24 37.0 08/18/19 23:00 113 22 109/56 (73) 96 Mechanical Ventilator 40.00 08/18/19 22:19 106/52 08/18/19 22:00 109 22 106/52 (70) 97 Mechanical Ventilator 40.00 08/18/19 21:34 105 22 97 40 08/18/19 21:00 105 22 95/48 (64) 96 Mechanical Ventilator 40.00 08/18/19 20:58 106/57 08/18/19 20:00 Mechanical Ventilator 40 08/18/19 20:00 37.0 08/18/19 20:00 111 22 116/57 (76) 96 Mechanical Ventilator 40.00 08/18/19 19:00 114 08/18/19 19:00 114 21 116/60 (78) 96 Mechanical Ventilator 40.00 08/18/19 18:07 110 22 95 30 08/18/19 18:00 110 20 117/61 (79) 96 Mechanical Ventilator 40.00 08/18/19 17:00 116 21 118/56 (76) 93 Mechanical Ventilator 40.00 08/18/19 16:00 117 22 119/49 (72) 93 Mechanical Ventilator 40.00 08/18/19 16:00 37.4 08/18/19 15:27 123 109/57 08/18/19 15:18 Mechanical Ventilator 40.00 08/18/19 15:03 Mechanical Ventilator 30 08/18/19 15:00 123 23 110/40 (63) 90 Mechanical Ventilator 30.00 08/18/19 14:45 116 22 95 30 08/18/19 14:00 120 23 106/41 (62) 93 Mechanical Ventilator 30.00 08/18/19 13:00 121 22 97/36 (56) 94 Mechanical Ventilator 30.00 08/18/19 13:00 121 08/18/19 12:00 122 22 89/46 (60) 94 Mechanical Ventilator 30.00 08/18/19 11:43 Mechanical Ventilator 30 08/18/19 11:08 37.2 08/18/19 11:00 125 16 106/50 (68) 93 Mechanical Ventilator 30.00 08/18/19 10:50 123 24 94 30 08/18/19 10:00 130 22 95/50 (65) 92 Mechanical Ventilator 30.00 08/18/19 09:57 130 106/53 08/18/19 09:50 133 106/53 08/18/19 09:41 37.0 08/18/19 09:00 117 21 117/53 (74) 94 Mechanical Ventilator 30.00 08/18/19 08:00 Mechanical Ventilator 30 08/18/19 08:00 122 22 125/52 (76) 94 Mechanical Ventilator 30.00 08/18/19 08:00 37.3 I & O 08/19/19 07:00 Intake Total 7445 ml Output Total 2850 ml Balance 4595 ml Capillary Refill : Less Than 3 Seconds General Appearance: Chronically ill, Obese HEENT: PERRL/EOMI; No Scleral Icterus (L), No Scleral Icterus (R); Other (ET tube in place) Neck: Supple, Other (central line in place) Respiratory: Decreased Breath Sounds, Other (intubated) Cardiovascular: No Murmur, Tachycardia Peripheral Pulses: 1+ Radial Pulses (R), 1+ Radial Pulses (L) Gastrointestinal: soft, no organomegaly Extremity: Normal Inspection, No Pedal Edema Neurologic/Psychiatric: Other (Sedated ) Skin: Normal Color, Warm/Dry Lymphatic: No Adenopathy (neck, axilla, groin) Results Lab Laboratory Tests 08/18/19 09:30: Lactic Acid Level 3.28*H 08/18/19 11:31: Glucometer 145H 08/18/19 13:00: Lactic Acid Level 3.48*H, Vancomycin Level Trough 18.5 08/18/19 16:55: Lactic Acid Level 2.53*H 08/18/19 17:48: Glucometer 157H 08/18/19 22:11: Lactic Acid Level 1.81 08/18/19 23:25: Glucometer 142H 08/19/19 02:45: White Blood Count 10.7, Red Blood Count 2.59L, Hemoglobin 8.5L, Hematocrit 25L, Mean Corpuscular Volume 98, Mean Corpuscular Hemoglobin 33, Mean Corpuscular Hemoglobin Concent 34, Red Cell Distribution Width 14.3, Platelet Count 175, Mean Platelet Volume 8.6, Neutrophils (%) (Auto) 89H, Lymphocytes (%) (Auto) 7L, Monocytes (%) (Auto) 4, Eosinophils (%) (Auto) 0, Basophils (%) (Auto) 0, Neutrophils # (Auto) 9.5H, Lymphocytes # (Auto) 0.7L, Monocytes # (Auto) 0.4, Eosinophils # (Auto) 0.0, Basophils # (Auto) 0.0, Blood Gas Puncture Site RIGHT RADIAL, Blood Gas Patient Temperature 37.8, Arterial Blood pH 7.33*L, Arterial Blood Partial Pressure CO2 41, Arterial Blood Partial Pressure O2 106H, Arterial Blood HCO3 21L, Arterial Blood Total CO2 22.0, Arterial Blood Oxygen Saturation 98, Arterial Blood Base Excess -3.9L, Blue Test YES-POS, Blood Gas Ventilator Setting YES, Blood Gas Inspired Oxygen 40%, Sodium Level 137, Potassium Level 3.3L, Chloride Level 109H, Carbon Dioxide Level 19L, Anion Gap 9, Blood Urea Nitrogen 7, Creatinine 0.76, Estimat Glomerular Filtration Rate > 60, BUN/Creatinine Ratio 9, Glucose Level 126H, Calcium Level 7.5L, Phosphorus Level 1.6L, Magnesium Level 1.7, B-Type Natriuretic Peptide 37.8 Microbiology 08/17/19 Fecal Leukocyte Stain - Final, Complete 08/17/19 MRSA Screen - Final, Complete MRSA not isolated 08/16/19 Blood Culture - Preliminary, Resulted No growth 08/16/19 Urine Culture - Final, Complete NO GROWTH Assessment/Plan Assessment/Plan Assessment/Plan Leukocytosis - resolved lactic Acidosis - Resolved + occult blood test Diarrhea Altered mental status Acute Respiratory failure - will wean off vent today Hgb trending down - could be dilutional CT showed some possible colitis on descending colon and sigmoid. Plan is to wean patient off the vent today. Previously pending respiratory cultures were negative and preliminary stool cultures are showing normal kadeem. No surgical intervention at this time. . JOSE KHANNA DO 08/19/19 1435: Subjective Time Seen by a Provider: 13:59 Subjective/Events-last exam Pt seen and examined, sedated on vent. Nurse states no BM's. Objective Exam General Appearance: Chronically ill, Obese Respiratory: Decreased Breath Sounds (at bases), Other (mechanically ventilated) Cardiovascular: No Murmur, Tachycardia Gastrointestinal: soft, no organomegaly Assessment/Plan Assessment/Plan Assessment/Plan Acute Respiratory Failure - sputum culture growing yeast (contaminant?) Colitis on CT - ??colonoscopy as outpt Anemia - most likely dilutional Supervisory-Addendum Brief Verification & Attestation Participated in pt care: history, MDM, physical Personally performed: exam, history, MDM Care discussed with: Medical Student Procedures: n/a Verification and Attestation of Medical Student E/M Service A medical student performed and documented this service. I then reviewed and verified all information documented by the medical student and made modifications to such information, when appropriate. I personally performed a physical exam, medical decision making and then discussed any differences between the notes and made revisions as necessary to create one note. Jose Khanna , 08/19/19 , 14:34 LAZARO PIZARRO [facility] Aug 19, 2019 07:32 JOSE KHANNA DO Aug 19, 2019 14:35
[2019-08-19] MEDS ORDERED: POTASSIUM PHOSPHATE INJ 30 MM in NS (IVPB) 250 ML IV ONE (08:00)
[2019-08-19] MEDS: PANTOPRAZOLE 40 MG (PROTONIX) VIAL IV SCH ×2 (08:05→20:57)
[2019-08-19] MEDS: MICONAZOLE 2% POWDER (DESENEX AF) 90 GM TOP SCH ×2 (08:09→20:57)
--- NOTE | 2019-08-19 08:09 | Physical Therapy Progress Note ---
Therapy Progress Note Patient continues to be sedated and on vent, will check back tomorrow. JAYSHREE RANDHAWA PT Aug 19, 2019 08:09
--- NOTE | 2019-08-19 08:25 | Occ Therapy Progress Note ---
Therapy Progress Note Pt. continues to be on ventilator support and sedation. Will discharge pt. from OT services at this time, and will need new orders to evaluate when off vent and medically stable. Thank you for this referral. 0825 Discharge pt. ALONZO JASON OT Aug 19, 2019 08:25
--- NOTE | 2019-08-19 08:35 | Diagnostic Imaging Report ---
CHEST 1 VIEW, AP/PA ONLY Indication: Respiratory failure Comparison: 08/18/2019 Findings: Stable ET tube. Enteric tube has been retracted and now has tip in the midesophagus. Right IJ central venous catheter is in stable position. Progression of bilateral multifocal consolidations. Small left pleural effusion. No pneumothorax. Stable cardiomediastinal silhouette. Impression: 1. Enteric tube has been retracted and now has tip in the mid esophagus. Advancement is recommended. 2. Progression of bilateral multifocal pulmonary opacities. Dictated by: Dictated on workstation # [id number]
--- NOTE | 2019-08-19 08:47 | Progress Note - Hospitalist ---
Subjective HPI/CC On Admission Date Seen by Provider: Aug 19, 2019 Time Seen by Provider: 08:38 Pt is intubated and sedated and unable to provide any history. She is a 59yo CF who presented to the ER due to AMS. Per her daughter she was reportedly normal yesterday but went to take a nap and then when she woke up yesterday evening was very confused. Her decided to call the ambulance when her eyes rolled back in her head and she was unresponsive. Reportedly she has a history of overdoses but her daughter states that the patient's sister sets up her meds and she does not have access to her meds. Daughter also states that she is very unhealthy and smokes a lot and drinks 3 2L of diet soda a day. She also states her mom has been telling her "I'm not going to be around much longer." but has not disclosed any health problems to her. Subjective/Events-last exam Pt remains intuabted. Sedation was just turned off and still unresponsive. plan to monitor. Focused Exam Lactate Level 08/18/19 13:00: Lactic Acid Level 3.48*H 08/18/19 16:55: Lactic Acid Level 2.53*H 08/18/19 22:11: Lactic Acid Level 1.81 Objective Exam Vital Signs Vital Signs Date Time Temp Pulse Resp B/P (MAP) Pulse Ox O2 Delivery O2 Flow Rate FiO2 08/19/19 08:00 112 32 132/95 (107) 94 Mechanical Ventilator 30.00 08/19/19 07:15 37.0 08/19/19 06:50 30 Capillary Refill : Less Than 3 Seconds General Appearance: Chronically ill, Other (sedated on a vent) Respiratory: Lungs Clear, Other (on vent) Cardiovascular: No Murmur, Tachycardia Genital/Rectal: Other (rodríguez in place) Extremity: Pedal Edema, Other (edema in hands) Results/Procedures Lab Laboratory Tests 08/19/19 02:45 Patient resulted labs reviewed. Imaging: Reviewed Imaging Report Assessment/Plan Assessment and Plan Assess & Plan/Chief Complaint Septic Shock- improving Possible PNA on CXR Continue on Vanc and Zosyn Repeat Ct shows mild colitis lactic acid improving Continue Levophed and Vasopressin to keep MAP >65 Culture with coag neg staph, send for ID C diff negative Rapid flu negative Negative RVP Acute Respiratory Failure COPD Maintain on vent Pulm consulted, appreciate recs RVP negative MAT protocol Anemia- Acute drop from 10.2 to 8.5 today Surgery consulted Could be iatrogenic from high volume fluids and blood draws Repeat this this afternoon NIDDMII Daughter states she was on insulin but quit taking it SSI Accuchecks Q6 Hold metformin as may be contributing to lactic acidosis Anxiety and Depression Broached topic of overdose with daughter and she states that's not a possibility as meds are monitored Chronic Pain On hydrocodone at home Critical Care Ventilator Management Diagnosis/Problems Diagnosis/Problems (1) Lactic acid acidosis (2) Respiratory failure with hypoxia Status: Acute Qualifiers: Chronicity: acute Qualified Codes: J96.01 - Acute respiratory failure with hypoxia (3) Colitis Status: Acute (4) Septic shock Status: Acute (5) Normocytic anemia Status: Acute ANTONIO MCCARTY MD Aug 19, 2019 08:47
[2019-08-19 10:44] LABS: BASOPHILS % (AUTO) 0 % (0-10); EOSINOPHILS % (AUTO) 0 % (0-10); HEMATOCRIT 30 % (35-52); HEMOGLOBIN 9.9 G/DL (11.5-16.0); LYMPHOCYTES # (AUTO) 0.7 X 10^3 (1.0-4.0); LYMPHOCYTES % (AUTO) 5 % (12-44); MEAN CORPUSCULAR HEMOGLOBIN 32 PG (25-34); MEAN CORPUSCULAR HGB CONC 33 G/DL (32-36); MEAN CORPUSCULAR VOLUME 96 FL (80-99); MEAN PLATELET VOLUME 8.6 FL (7.4-10.4); MONOCYTES # (AUTO) 0.5 X 10^3 (0.0-1.0); MONOCYTES % (AUTO) 4 % (0-12); NEUTROPHILS % (AUTO) 91 % (42-75); PLATELET COUNT 194 10^3/uL (130-400); RED CELL DISTRIBUTION WIDTH 14.4 % (10.0-14.5); WHITE BLOOD COUNT 13.3 10^3/uL (4.3-11.0)
[2019-08-19] MEDS: NOREPINEPHRINE 4 MG/250 ML 250 ML IV SCH ×3 (11:09→21:34)
[2019-08-19 11:40] LABS: ANISOCYTOSIS SLIGHT; BAND NEUTROPHILS 7 %; BASOPHILS % (MANUAL) 0 %; ELLIPT/OVALOCYTES SLIGHT; EOSINOPHILS % (MANUAL) 0 %; LYMPHOCYTES % (MANUAL) 7 %; MONOCYTES % (MANUAL) 4 %; NEUTROPHILS % (MANUAL) 82 %
--- NOTE | 2019-08-19 13:29 | NUR ---
DR REINA NOTIFIED OF PT'S ELEVATED BLOOD PRESSURE 170/110'S PULSE 101. NEW ORDERS RECEIVED SEE ORDER HX.
[2019-08-19] MEDS ORDERED: lisINopril 40 MG (PRINIVIL) TABLET PO SCH (13:30)
[2019-08-19] MEDS: hydrALAZINE (APESOLINE) 20 MG/ML VIAL IV SCH ×2 (13:45→18:14)
[2019-08-19] MEDS: lisINopril 20 MG (PRINIVIL) TABLET PO SCH (14:06)
[2019-08-19] MEDS: meTOprolol TARTRATE 50 MG (LOPRESSOR) TAB PO SCH ×2 (14:06→20:57)
--- NOTE | 2019-08-19 15:59 | NUR ---
DR REINA NOTIFIED OF PT'S ELEVATED BP AFTER PRIOR MEDICATIONS GIVEN. NEW ORDERS RECEIVED TO START CARDENE DRIP TO KEEP SBP<180. ORDERS VERIFIED AND ENTERED.
[2019-08-19] MEDS: niCARdipine IV 50 MG in NS (IVPB) 230 ML IV SCH (16:26)
--- NOTE | 2019-08-19 17:04 | NUR ---
DR REINA NOTIFIED OF PT'S TEMP OF 38.3 NEW ORDERS RECEIVED SEE ORDER HX. ORDERS READ BACK AND VERIFIED.
[2019-08-19] MEDS: KETOROLAC 15 MG/ML VIAL IVP PRN (17:27)
[2019-08-19] MEDS ORDERED: ACETAMINOPHEN 650 MG SUPP (TYLENOL) PR PRN (18:00)
[2019-08-19] MEDS ORDERED: meTOprolol TARTRATE 50 MG (LOPRESSOR) TAB PO SCH (21:00)
[2019-08-20] VITALS (28 sets, daily range): BP systolic 104–162; BP diastolic 29–96
[2019-08-20] MEDS: niCARdipine IV 50 MG in NS (IVPB) 230 ML IV SCH ×3 (02:08→21:49)
[2019-08-20] MEDS: RT-ALBUTEROL/IPRATROPIUM 3 ML (DUONEB) VIAL INH SCH ×6 (02:10→22:51)
[2019-08-20] MEDS: EPINEPHrine 1 MG INJECTION 2 MG in NS (IVPB) 248 ML IV SCH (03:24)
[2019-08-20] MEDS: NOREPINEPHRINE 4 MG/250 ML 250 ML IV SCH (03:24)
[2019-08-20] MEDS: KETOROLAC 15 MG/ML VIAL IVP PRN (03:25)
[2019-08-20 03:28] LABS: ABG BASE EXCESS 1.6 MMOL/L (-2.5-2.5); ABG OXYGEN SATURATION 97 % (94-100); ABG PCO2 33 MMHG (35-45); ABG PH 7.49 (7.37-7.43); ABG PO2 84 MMHG (79-93); ABG TCO2 25.5 MMOL/L (21.0-31.0); ALLENS TEST POSITIVE
[2019-08-20 03:29] LABS: INSPIRED O2 22; PATIENT TEMP 38.2; VENTILATOR YES
[2019-08-20 03:30] LABS: BASOPHILS % (AUTO) 0 % (0-10); EOSINOPHILS % (AUTO) 0 % (0-10); HEMATOCRIT 29 % (35-52); HEMOGLOBIN 10.2 G/DL (11.5-16.0); LYMPHOCYTES # (AUTO) 1.1 X 10^3 (1.0-4.0); LYMPHOCYTES % (AUTO) 9 % (12-44); MEAN CORPUSCULAR HEMOGLOBIN 33 PG (25-34); MEAN CORPUSCULAR HGB CONC 35 G/DL (32-36); MEAN CORPUSCULAR VOLUME 95 FL (80-99); MEAN PLATELET VOLUME 8.8 FL (7.4-10.4); MONOCYTES # (AUTO) 0.5 X 10^3 (0.0-1.0); MONOCYTES % (AUTO) 4 % (0-12); NEUTROPHILS # (AUTO) 10.7 X 10^3 (1.8-7.8); NEUTROPHILS % (AUTO) 87 % (42-75); PLATELET COUNT 177 10^3/uL (130-400); RED CELL DISTRIBUTION WIDTH 13.8 % (10.0-14.5); WHITE BLOOD COUNT 12.3 10^3/uL (4.3-11.0)
--- NOTE | 2019-08-20 03:39 | Pulmonary Progress Note ---
RHIANNON GOMEZ MEDICAL STUDENT 08/20/19 0339: Subjective Date Seen by a Provider: Aug 20, 2019 Time Seen by a Provider: 03:15 Subjective/Events-last exam Pt only on a small amount of sedation, but not responding to commands. Still on ventilator. She fluttered her eyelids to touch and voice. Nurse reported that le samaniego was concerned about a possible toe infection of L 1st digit around toenail. Review of Systems Unable to obtain, pt sedated Sepsis Event Evaluation Height, Weight, BMI Height: '" Weight: lbs. oz. kg; 34.00 BMI Method: Focused Exam Lactate Level 08/18/19 13:00: Lactic Acid Level 3.48*H 08/18/19 16:55: Lactic Acid Level 2.53*H 08/18/19 22:11: Lactic Acid Level 1.81 Exam Exam Vital Signs Date Time Temp Pulse Resp B/P (MAP) Pulse Ox O2 Delivery O2 Flow Rate FiO2 08/20/19 03:28 38.2 08/20/19 03:25 38.2 08/20/19 03:00 98 22 131/81 (98) 94 Mechanical Ventilator 25.00 08/20/19 02:10 93 22 95 25 08/20/19 02:00 92 22 150/79 (102) 95 Mechanical Ventilator 25.00 08/20/19 01:00 95 22 159/84 (109) 95 Mechanical Ventilator 25.00 08/20/19 01:00 95 08/20/19 00:00 95 Mechanical Ventilator 25 08/20/19 00:00 100 24 145/83 (103) 94 Mechanical Ventilator 25.00 08/19/19 23:59 37.4 08/19/19 23:00 98 21 164/85 (111) 93 Mechanical Ventilator 25.00 08/19/19 22:42 98 08/19/19 22:00 98 22 174/94 (120) 95 Mechanical Ventilator 25.00 08/19/19 21:54 Mechanical Ventilator 25.00 08/19/19 21:48 93 22 96 25 08/19/19 21:00 101 22 146/77 (100) 94 Mechanical Ventilator 30.00 08/19/19 20:00 101 25 148/81 (103) 95 Mechanical Ventilator 30.00 08/19/19 20:00 95 Mechanical Ventilator 28 08/19/19 19:54 38.0 08/19/19 19:00 99 22 156/82 (106) 95 Mechanical Ventilator 30.00 08/19/19 19:00 100 08/19/19 18:00 99 22 156/82 (106) 94 Mechanical Ventilator 30.00 08/19/19 18:00 36.6 08/19/19 17:27 38.3 08/19/19 17:00 104 24 156/79 (104) 93 Mechanical Ventilator 30.00 08/19/19 16:15 96 Mechanical Ventilator 40 08/19/19 16:06 115 191/110 08/19/19 16:00 98 21 190/107 (134) 97 Mechanical Ventilator 30.00 08/19/19 15:30 37.3 08/19/19 15:00 37.1 08/19/19 15:00 111 22 190/107 (134) 97 Mechanical Ventilator 30.00 08/19/19 14:36 115 23 96 30 08/19/19 14:19 38.4 08/19/19 14:00 107 22 178/91 (120) 96 Mechanical Ventilator 30.00 08/19/19 13:00 102 21 144/102 (116) 96 Mechanical Ventilator 30.00 08/19/19 12:51 101 08/19/19 12:35 96 Mechanical Ventilator 40 08/19/19 12:00 105 22 174/100 (124) 96 Mechanical Ventilator 30.00 08/19/19 11:32 105 22 96 30 08/19/19 11:00 103 17 170/102 (124) 96 Mechanical Ventilator 30.00 08/19/19 10:56 103 169/97 08/19/19 10:00 105 22 146/67 (93) 96 Mechanical Ventilator 30.00 08/19/19 09:00 104 22 167/94 (118) 96 Mechanical Ventilator 30.00 08/19/19 08:00 112 32 132/95 (107) 94 Mechanical Ventilator 30.00 08/19/19 08:00 96 Mechanical Ventilator 40 08/19/19 07:15 37.0 08/19/19 07:00 106 08/19/19 07:00 106 22 125/70 (88) 93 Mechanical Ventilator 30.00 08/19/19 06:50 105 22 94 30 08/19/19 06:00 110 22 125/65 (85) 94 Mechanical Ventilator 30.00 08/19/19 05:00 108 22 94/44 (61) 93 Mechanical Ventilator 30.00 08/19/19 04:59 108 08/19/19 04:01 Mechanical Ventilator 30 08/19/19 04:00 110 22 95/47 (63) 93 Mechanical Ventilator 30.00 I & O 08/20/19 07:00 Intake Total 430 ml Output Total 7700 ml Balance -7270 ml Height & Weight Height: '" Weight: lbs. oz. kg; 34.00 BMI Method: General Appearance: Chronically ill, Obese HEENT: No Scleral Icterus (L), No Scleral Icterus (R); Other (ET tube in place) Neck: Supple, Other (central line in place) Respiratory: Lungs Clear, Other (mechanically ventilated) Cardiovascular: No Murmur, Tachycardia Capillary Refill: Less Than 3 Seconds Peripheral Pulses: 2+ Dorsalis Pedis (R), 2+ Left Dors-Pedis (L) Gastrointestinal: normal bowel sounds, soft, no organomegaly Extremity: Pedal Edema, Other (edematous upper and lower extremities ) Neurologic/Psychiatric: Other (Sedated ) Skin: Normal Color, Warm/Dry, Other (Toenails are painted. Aside from mild nail thickening, there is no onycholysis, periungual erythema or drainage. ) Lymphatic: No Adenopathy Results Lab Laboratory Tests 08/19/19 02:45 08/19/19 10:30 08/20/19 03:10 Assessment/Plan Assessment/Plan Acute respiratory failure probable aspiration -Currently sedated on vent -Vanco and Zosyn --RVP negative -will start Lasix and decrease IVF once BP is improved. -CXR showed improvement after Lasix, doubt PNA. -Sedation vacation, will attempt to wean off ventilation Severe sepsis with shock- r/o abdominal sepsis. -Levophed gtt, vasopressin -solucortef -Repeat CT of abd/pelvis is showed mild colitis. -Surgery is following -Initial UA is negative -08/20: Elevated BP, Nicardipine 12.5mL/hr, hydralazine, Metoprolol GIB -Occult stool is positive -Hold lovenox, SCDs in place -Continue Protonix Q 12 Found unresponsive at home per family Metabolic encephalopathy Gastroenteritis with N/V/D -Cdiff toxin -- Negative -Stool cultures pending NIIDM -Continue SSI Chronic opioid and benzo use -Elevated BP and fever could be due to withdrawal Anemia Repeat CBC showed improvement, likely dilutional RAFAT ELLIS DO 08/20/19 0436: Subjective Time Seen by a Provider: 04:31 Subjective/Events-last exam Pt has been off propofol since yesterday. Precedex has continued. Exam Exam General Appearance: Chronically ill, Obese HEENT: No Scleral Icterus (L), No Scleral Icterus (R); Other (ET tube in place) Neck: Other (central line in place) Respiratory: Lungs Clear, Other (mechanically ventilated) Cardiovascular: No Murmur Gastrointestinal: normal bowel sounds, soft, no organomegaly Extremity: Pedal Edema, Other (edematous upper and lower extremities ) Skin: Normal Color, Warm/Dry Lymphatic: No Adenopathy Assessment/Plan Assessment/Plan Acute respiratory failure probable aspiration -Currently sedated on vent - Zosyn --RVP negative -Give 60mg of Lasix IV x 1 -will start Lasix and decrease IVF once BP is improved. -CXR showed improvement after Lasix -Sedation vacation, will attempt to wean off ventilation -D/C all sedation including Precedex. Check ammonia level. -If pt is not more alert after 3-4hrs will repeat CT of head. Severe sepsis with shock- r/o abdominal sepsis. [id number] -Levophed gtt, vasopressin -solucortef -Repeat CT of abd/pelvis is showed mild colitis. -Surgery is following -Repeat ortiz cultures including repeat flu test. -Initial UA is negative -08/20: Elevated BP, Nicardipine 12.5mL/hr, hydralazine, Metoprolol GIB -Occult stool is positive -Hold lovenox, SCDs in place -Continue Protonix Q 12 Found unresponsive at home per family Metabolic encephalopathy Gastroenteritis with N/V/D -Cdiff toxin -- Negative -Stool cultures pending NIIDM -Continue SSI Anemia Supervisory-Addendum Brief Verification & Attestation Participated in pt care: history Personally performed: exam, history Care discussed with: Medical Student Procedures: n/a Verification and Attestation of Medical Student E/M Service A medical student performed and documented this service in my presence. I reviewed and verified all information documented by the medical student and made modifications to such information, when appropriate. I personally performed the physical exam and medical decision making. Rafat Ellis, Aug 20, 2019,07:16 RHIANNON GOMEZ MEDICAL STUDENT Aug 20, 2019 03:39 RAFAT ELLIS DO Aug 20, 2019 04:36
[2019-08-20 03:50] LABS: BUN/CREATININE RATIO 15; CALCIUM 7.6 MG/DL (8.5-10.1); CARBON DIOXIDE 24 MMOL/L (21-32); CHLORIDE 103 MMOL/L (98-107); CREATININE SERUM 0.82 MG/DL (0.60-1.30); GFR ESTIMATED > 60; GLUCOSE 134 MG/DL (70-105); MAGNESIUM 1.5 MG/DL (1.6-2.4); SODIUM 136 MMOL/L (135-145); TRIGLYCERIDES 84 MG/DL (<150)
[2019-08-20] MEDS ORDERED: FUROSEMIDE 40 MG/4 ML INJ (LASIX) IVP ONE (04:45)
[2019-08-20] MEDS ORDERED: ANIDULAFUNGIN INJECTION 200 MG in NS (IVPB) 250 ML IV ONE (04:45)
[2019-08-20] MEDS: POTASSIUM CL 10MEQ/50ML IVPB 50 ML IV SCH ×14 (05:19→20:40)
[2019-08-20] MEDS: MAGNESIUM 1 GM/100 ML IVPB 100 ML IV SCH ×3 (05:19→06:29)
[2019-08-20] MEDS: hydrALAZINE (APESOLINE) 20 MG/ML VIAL IV SCH ×5 (05:26→23:57)
[2019-08-20] MEDS: HYDROCORTISONE 100 MG/2 ML (Solu-CORTEF) VIAL IV SCH (05:27)
[2019-08-20] MEDS: inSUlin ASPART (NovoLOG) 1 UNIT/0.01 ML (CHARGE PER UNIT) SC SCH ×5 (05:28→23:56)
[2019-08-20] MEDS: PIPERACILLIN/TAZO 4.5 GM/NS 100 ML IV SCH ×6 (05:28→21:50)
[2019-08-20] MEDS: KCL 20 MEQ TAB (K-DUR) PO SCH (05:28)
[2019-08-20 05:33] LABS: ALANINE AMINOTRANSFERASE 39 U/L (0-55); ALBUMIN 2.7 GM/DL (3.2-4.5); ALKALINE PHOSPHATASE 62 U/L (40-136); AMMONIA 36 UMOL/L (11-32); BILIRUBIN,TOTAL 0.8 MG/DL (0.1-1.0); BUN/CREATININE RATIO 16; CALCIUM 7.6 MG/DL (8.5-10.1); CARBON DIOXIDE 25 MMOL/L (21-32); CHLORIDE 102 MMOL/L (98-107); CREATININE SERUM 0.82 MG/DL (0.60-1.30); GFR ESTIMATED > 60; GLUCOSE 109 MG/DL (70-105); SODIUM 135 MMOL/L (135-145); TOTAL PROTEIN 4.7 GM/DL (6.4-8.2)
--- NOTE | 2019-08-20 07:25 | Diagnostic Imaging Report ---
INDICATION: Respiratory failure. COMPARISON: 08/19/2019. TECHNIQUE: Single radiograph of the chest dated 08/20/2019. FINDINGS: Endotracheal tube is stable. Enteric catheter appears similar to the prior examination with the distal tip overlying the mid aspect of the esophagus. Right-sided PICC line is stable. The cardiac silhouette is stable. Improved aeration of the lungs with improved though persistent bilateral pulmonary infiltrates. Trace left pleural effusion. No significant right pleural effusion. No pneumothorax. Osseous structures are stable. IMPRESSION: Improved aeration of the lungs with improved though persistent bilateral multifocal pulmonary infiltrates. Lines and tubes appear unchanged from the prior examination with the enteric catheter again noted terminating overlying the mid esophagus. If intragastric placement is desired, then this should be advanced approximately 15 to 20 cm. Dictated by: Dictated on workstation # [id number]
--- NOTE | 2019-08-20 08:09 | Physical Therapy Progress Note ---
Therapy Progress Note Pt remains on mechanical ventilation per DO notes this am. PT to hold therapy on this date until pt able to participate in skilled therapy tx. ALEXANDRA ADAME PT Aug 20, 2019 08:09
[2019-08-20] MEDS: PANTOPRAZOLE 40 MG (PROTONIX) VIAL IV SCH ×2 (08:56→21:49)
[2019-08-20] MEDS: meTOprolol TARTRATE 50 MG (LOPRESSOR) TAB PO SCH ×2 (08:56→21:49)
[2019-08-20] MEDS: MICONAZOLE 2% POWDER (DESENEX AF) 90 GM TOP SCH ×2 (08:57→21:49)
[2019-08-20] MEDS: lisINopril 20 MG (PRINIVIL) TABLET PO SCH (08:57)
[2019-08-20 09:10] LABS: BILIRUBIN,URINE NEGATIVE (NEGATIVE); CLARITY,URINE CLEAR; COLOR,URINE YELLOW; GLUCOSE, URINE (UA) NEGATIVE (NEGATIVE); KETONES,URINE NEGATIVE (NEGATIVE); LEUKOCYTE ESTERASE ,URINE NEGATIVE (NEGATIVE); NITRITE,URINE NEGATIVE (NEGATIVE); PROTEIN,URINE NEGATIVE (NEGATIVE)
[2019-08-20 09:18] LABS: BACTERIA,URINE TRACE /HPF; SQUAMOUS EPITHELIAL CELL,UR RARE /HPF
--- NOTE | 2019-08-20 10:25 | Progress Note - Hospitalist ---
Subjective HPI/CC On Admission Date Seen by Provider: Aug 20, 2019 Time Seen by Provider: 10:15 Pt is intubated and sedated and unable to provide any history. She is a 59yo CF who presented to the ER due to AMS. Per her daughter she was reportedly normal yesterday but went to take a nap and then when she woke up yesterday evening was very confused. Her decided to call the ambulance when her eyes rolled back in her head and she was unresponsive. Reportedly she has a history of overdoses but her daughter states that the patient's sister sets up her meds and she does not have access to her meds. Daughter also states that she is very unhealthy and smokes a lot and drinks 3 2L of diet soda a day. She also states her mom has been telling her "I'm not going to be around much longer." but has not disclosed any health problems to her. Subjective/Events-last exam Pt remains intubated. Minimally responsive at this time but does open eyes on command. Family at bedside states she was able to do a little bitmore from them when asked. No concerns from RN. Discussed with Dr Ellis and will plan for CT h ead if not improvement in mentation by this afternoon. Focused Exam Lactate Level 08/18/19 13:00: Lactic Acid Level 3.48*H 08/18/19 16:55: Lactic Acid Level 2.53*H 08/18/19 22:11: Lactic Acid Level 1.81 Objective Exam Vital Signs Vital Signs Date Time Temp Pulse Resp B/P (MAP) Pulse Ox O2 Delivery O2 Flow Rate FiO2 08/20/19 09:00 99 22 104/29 (54) 91 Mechanical Ventilator 25.00 08/20/19 06:40 25 08/20/19 06:40 37.4 Capillary Refill : Less Than 3 Seconds General Appearance: Other (sedated, on vent) Respiratory: Lungs Clear, Other (on vent) Cardiovascular: Regular Rate, Rhythm, No Murmur Gastrointestinal: Normal Bowel Sounds, Soft Genital/Rectal: Other (rodríguez in place) Neurologic/Psychiatric: Other (opens eyes on command but otherwise does not f ollow commands) Results/Procedures Lab Laboratory Tests 08/19/19 10:30 08/20/19 03:10 08/20/19 05:08 Patient resulted labs reviewed. Imaging: Reviewed Imaging Report Assessment/Plan Assessment and Plan Assess & Plan/Chief Complaint Septic Shock- improving, now off pressors Possible PNA on CXR Continue on Vanc and Zosyn, Eraxis added today due to yeast in sputum and new fevers Repeat CT shows mild colitis Continue Levophed and Vasopressin to keep MAP >65 Blood cultures likely contaminated C diff negative Rapid flu negative Negative RVP Acute Respiratory Failure COPD Attempt to wean from vent Pulm consulted, appreciate recs RVP negative MAT protocol Altered Mental Status Give time to let sedation wear off May get CT head later today Ammonia level ordered Anemia- Acute drop from 10.2 to 8.5 today Surgery consulted Could be iatrogenic from high volume fluids and blood draws Repeat this this afternoon NIDDMII Daughter states she was on insulin but quit taking it SSI Anxiety and Depression Broached topic of overdose with daughter and she states that's not a possibility as meds are monitored Chronic Pain On hydrocodone at home Critical Care Ventilator Management Diagnosis/Problems Diagnosis/Problems (1) Lactic acid acidosis (2) Respiratory failure with hypoxia Status: Acute Qualifiers: Chronicity: acute Qualified Codes: J96.01 - Acute respiratory failure with hypoxia (3) Colitis Status: Acute (4) Septic shock Status: Acute (5) Normocytic anemia Status: Acute ANTONIO MCCARTY MD Aug 20, 2019 10:25
[2019-08-20] MEDS: LACTATED RINGERS 1,000 ML IV SCH ×2 (10:44→13:44)
--- NOTE | 2019-08-20 11:10 | NUR ---
DR REINA IN ROOM, NEW VERBAL ORDERS RECEIVED SEE ORDER HX.
[2019-08-20] MEDS ORDERED: HOLD METFORMIN - RECEIVED CONTRAST 20 ML VIAL IV SCH (11:30)
[2019-08-20] MEDS ORDERED: IOHEXOL 350 MG/ML 100 ML (OMNIPAQUE 350) VIAL IV ONE (11:30)
[2019-08-20] MEDS ORDERED: NS 100 ML (IVPB) BAG IV ONE (11:30)
[2019-08-20] MEDS ORDERED: CATHETER FLUSH 10 ML SYR IV PRN (11:30)
[2019-08-20] MEDS ORDERED: DIATRIZOATE MEGLUM/SODIUM 37% 120 ML (GASTROGRAFIN) PO ONE (11:30)
--- NOTE | 2019-08-20 12:02 | Progress Note - Surgery ---
Subjective Time Seen by a Provider: 11:51 Subjective/Events-last exam Pt seen and examined, still intubated but nurse says off all sedation and not waking up. Pt had normal BM today. Review of Systems unable to obtain Focused Exam Lactate Level 08/18/19 13:00: Lactic Acid Level 3.48*H 08/18/19 16:55: Lactic Acid Level 2.53*H 08/18/19 22:11: Lactic Acid Level 1.81 Objective Exam Vital Signs Date Time Temp Pulse Resp B/P (MAP) Pulse Ox O2 Delivery O2 Flow Rate FiO2 08/20/19 11:00 93 20 128/81 (97) 96 Mechanical Ventilator 25.00 08/20/19 10:33 92 20 95 25 08/20/19 10:00 93 21 130/78 (95) 95 Mechanical Ventilator 25.00 08/20/19 09:00 99 22 104/29 (54) 91 Mechanical Ventilator 25.00 08/20/19 08:00 96 21 118/68 (85) 95 Mechanical Ventilator 25.00 08/20/19 07:00 96 22 109/55 (73) 95 Mechanical Ventilator 25.00 08/20/19 07:00 95 08/20/19 06:40 90 18 98 25 08/20/19 06:40 37.4 08/20/19 06:00 96 29 123/67 (85) 97 Mechanical Ventilator 25.00 08/20/19 05:00 93 19 131/69 (89) 96 Mechanical Ventilator 25.00 08/20/19 04:29 37.3 08/20/19 04:00 95 Mechanical Ventilator 25 08/20/19 04:00 95 21 132/71 (91) 97 Mechanical Ventilator 25.00 08/20/19 03:55 37.9 08/20/19 03:28 38.2 08/20/19 03:25 38.2 08/20/19 03:00 98 22 131/81 (98) 94 Mechanical Ventilator 25.00 08/20/19 02:10 93 22 95 25 08/20/19 02:00 92 22 150/79 (102) 95 Mechanical Ventilator 25.00 08/20/19 01:00 95 22 159/84 (109) 95 Mechanical Ventilator 25.00 08/20/19 01:00 95 08/20/19 00:00 95 Mechanical Ventilator 25 08/20/19 00:00 100 24 145/83 (103) 94 Mechanical Ventilator 25.00 08/19/19 23:59 37.4 08/19/19 23:00 98 21 164/85 (111) 93 Mechanical Ventilator 25.00 08/19/19 22:42 98 08/19/19 22:00 98 22 174/94 (120) 95 Mechanical Ventilator 25.00 08/19/19 21:54 Mechanical Ventilator 25.00 08/19/19 21:48 93 22 96 25 08/19/19 21:00 101 22 146/77 (100) 94 Mechanical Ventilator 30.00 08/19/19 20:00 101 25 148/81 (103) 95 Mechanical Ventilator 30.00 08/19/19 20:00 95 Mechanical Ventilator 28 08/19/19 19:57 101 25 95 28 08/19/19 19:54 38.0 08/19/19 19:00 99 22 156/82 (106) 95 Mechanical Ventilator 30.00 08/19/19 19:00 100 08/19/19 18:00 99 22 156/82 (106) 94 Mechanical Ventilator 30.00 08/19/19 18:00 36.6 08/19/19 17:27 38.3 08/19/19 17:00 104 24 156/79 (104) 93 Mechanical Ventilator 30.00 08/19/19 16:15 96 Mechanical Ventilator 40 08/19/19 16:06 115 191/110 08/19/19 16:00 98 21 190/107 (134) 97 Mechanical Ventilator 30.00 08/19/19 15:30 37.3 08/19/19 15:00 37.1 08/19/19 15:00 111 22 190/107 (134) 97 Mechanical Ventilator 30.00 08/19/19 14:36 115 23 96 30 08/19/19 14:19 38.4 08/19/19 14:00 107 22 178/91 (120) 96 Mechanical Ventilator 30.00 08/19/19 13:00 102 21 144/102 (116) 96 Mechanical Ventilator 30.00 08/19/19 12:51 101 08/19/19 12:35 96 Mechanical Ventilator 40 08/19/19 12:00 105 22 174/100 (124) 96 Mechanical Ventilator 30.00 I & O 08/20/19 07:00 Intake Total 430 ml Output Total 8500 ml Balance -8070 ml Capillary Refill : Less Than 3 Seconds General Appearance: No Apparent Distress, Other (on vent) HEENT: PERRL/EOMI Respiratory: Lungs Clear, Decreased Breath Sounds (at bases), Other (on vent) Cardiovascular: Regular Rate, Rhythm, No Murmur Peripheral Pulses: 2+ Dorsalis Pedis (R), 2+ Left Dors-Pedis (L) Gastrointestinal: soft; No distended Extremity: Normal Capillary Refill, Normal Inspection, Pedal Edema, Other (edema/swelling in hands) Neurologic/Psychiatric: Other (opens eyes on command but otherwise does not follow commands) Skin: Normal Color, Warm/Dry Results Lab Laboratory Tests 08/19/19 18:02: Glucometer 153H 08/20/19 03:10: White Blood Count 12.3H, Red Blood Count 3.07L, Hemoglobin 10.2L, Hematocrit 29L , Mean Corpuscular Volume 95, Mean Corpuscular Hemoglobin 33, Mean Corpuscular Hemoglobin Concent 35, Red Cell Distribution Width 13.8, Platelet Count 177, Mean Platelet Volume 8.8, Neutrophils (%) (Auto) 87H, Lymphocytes (%) (Auto) 9L, Monocytes (%) (Auto) 4, Eosinophils (%) (Auto) 0, Basophils (%) (Auto) 0, Neutrophils # (Auto) 10.7H, Lymphocytes # (Auto) 1.1, Monocytes # (Auto) 0.5, Eosinophils # (Auto) 0.0, Basophils # (Auto) 0.0, Sodium Level 136, Potassium Level 3.0L, Chloride Level 103, Carbon Dioxide Level 24, Anion Gap 9, Blood Urea Nitrogen 12, Creatinine 0.82, Estimat Glomerular Filtration Rate > 60, BUN/C reatinine Ratio 15, Glucose Level 134H, Calcium Level 7.6L, Phosphorus Level 3.0, Magnesium Level 1.5L, Triglycerides Level 84 08/20/19 03:20: Blood Gas Puncture Site RIGHT RADIAL, Blood Gas Patient Temperature 38.2, Arterial Blood pH 7.49H, Arterial Blood Partial Pressure CO2 33L, Arterial Blood Partial Pressure O2 84, Arterial Blood HCO3 25, Arterial Blood Total CO2 25.5, Arterial Blood Oxygen Saturation 97, Arterial Blood Base Excess 1.6, Blue Test POSITIVE, Blood Gas Ventilator Setting YES, Blood Gas Inspired Oxygen 22 08/20/19 05:08: Sodium Level 135, Potassium Level 3.0L, Chloride Level 102, Carbon Dioxide Level 25, Anion Gap 8, Blood Urea Nitrogen 13, Creatinine 0.82, Estimat Glomerular Filtration Rate > 60, BUN/Creatinine Ratio 16, Glucose Level 109H, Calcium Level 7.6L, Corrected Calcium 8.6, Total Bilirubin 0.8, Aspartate Amino Transf (AST/SGOT) 23, Alanine Aminotransferase (ALT/SGPT) 39, Alkaline Phosphatase 62, Ammonia 36H, Total Protein 4.7L, Albumin 2.7L 08/20/19 05:43: Urine Color YELLOW, Urine Clarity CLEAR, Urine pH 7.0, Urine Specific Scurry 1.010L, Urine Protein NEGATIVE, Urine Glucose (UA) NEGATIVE, Urine Ketones NEGATIVE, Urine Nitrite NEGATIVE, Urine Bilirubin NEGATIVE, Urine Urobilinogen 0.2, Urine Leukocyte Esterase NEGATIVE, Urine RBC (Auto) 2+H, Urine RBC 5-10H, Urine WBC NONE, Urine Squamous Epithelial Cells RARE, Urine Crystals NONE, Urine Bacteria TRACE, Urine Casts NONE, Urine Mucus NEGATIVE, Urine Culture Indicated NO 08/20/19 11:49: Glucometer 109 Microbiology 08/20/19 Influenza Types A,B Antigen ([facility]) - Final, Complete 08/17/19 Fecal Leukocyte Stain - Final, Complete 08/16/19 Blood Culture - Preliminary, Resulted No growth 08/16/19 Urine Culture - Final, Complete NO GROWTH Assessment/Plan Assessment/Plan Assessment/Plan Acute Respiratory Failure - sputum culture growing yeast (contaminant?) Colitis on CT - ??colonoscopy as outpt Anemia - most likely dilutional Pt is having normal BM's and does not appear to have abdominal pain. I do not think her problem is abdominal in nature. I will sign off and can reconsult if needed. OJSE AVALOS DO Aug 20, 2019 12:02
--- NOTE | 2019-08-20 13:26 | NUR ---
Pastoral care visit, w/pts daughter and sister by bed, offered support and encouragement.
--- NOTE | 2019-08-20 14:51 | Diagnostic Imaging Report ---
PROCEDURE: CT head with and without contrast. TECHNIQUE: Multiple contiguous axial images were obtained through the brain before and after the administration of intravenous contrast. Auto Exposure Controls were utilized during the CT exam to meet ALARA standards for radiation dose reduction. INDICATION: Altered mental status The ventricles are normal in size, shape and position. There are no masses or hemorrhages. There are no extra-axial fluid collections. Paranasal sinuses are clear. IMPRESSION: Negative CT head Dictated by: Dictated on workstation # [id number]
--- NOTE | 2019-08-20 15:16 | Diagnostic Imaging Report ---
PROCEDURE: CT chest, abdomen, and pelvis with contrast. TECHNIQUE: Multiple contiguous axial images were obtained through the chest, abdomen, and pelvis after the administration of intravenous contrast. Auto Exposure Controls were utilized during the CT exam to meet ALARA standards for radiation dose reduction. INDICATION: Sepsis and respiratory failure. COMPARISON: Comparison is made with recent CT abdomen and pelvis study from three days earlier. Comparison is also made with prior CT chest from 08/16/2019. CT chest: FINDINGS: Endotracheal tube has tip above the rosmery. There is a nasogastric tube which has the tip in the distal esophagus. This could be advanced. Aorta is normal caliber. No dissection is seen. Pulmonary arterial system is unremarkable. No axillary lymphadenopathy is seen. No definite mediastinal or hilar lymphadenopathy is seen. There is no pericardial fluid. Trace bilateral pleural fluid is identified. Pulmonary parenchymal evaluation does show extensive groundglass infiltrates in bilateral upper lobes, new since examination from four days earlier. There are some lesser patchy groundglass infiltrates in the right lower lobe and right middle lobe. There are some areas of parenchymal consolidation in the medial lower lobes bilaterally, similar to prior exam. IMPRESSION: Development of extensive groundglass infiltrates in bilateral upper lobes when compared with the study four days earlier. There continue to be trace bilateral pleural effusions with some small areas of parenchymal consolidation in bilateral medial lower lobes. CT abdomen and pelvis: FINDINGS: No discrete liver mass is detected. Gallbladder is surgically absent. No biliary ductal dilatation is seen. Pancreas and spleen are unremarkable. No adrenal mass is detected. Kidneys are unremarkable. Aorta is nonaneurysmal. No central retroperitoneal or mesenteric lymphadenopathy is seen. The small and large bowel loops appear to be normal in caliber. No definite obstruction is seen. There is some questionable wall thickening involving the descending colon, similar to prior exam. Nonspecific colitis could produce this appearance. There is some mild adjacent inflammatory stranding. No definite free fluid or fluid collection is identified. Bladder is decompressed by a Jimenez catheter. Bony structures demonstrate postsurgical changes of posterior instrumented fusion in the lower lumbar spine. IMPRESSION: There is some residual generalized wall thickening of the descending colon with some adjacent stranding suggestive of nonspecific colitis. Remainder of the abdomen and pelvis is unremarkable. No free fluid or fluid collection is seen. There is no evidence of bowel obstruction. Dictated by: Dictated on workstation # [id number]
--- NOTE | 2019-08-20 15:46 | NUR ---
CM/KIARRA for discharge planning. CM/SS went to visit with the patient; however, the patient is still on vent. She was on her way to CT to assess brain function. CM/SS spoke with the patients nurse who stated the patients daughter Cecilia was here, in the family room. CM/SS found Cecilia and this SS introduced to daughter. The daughter is here from [place] but also has a sister and brother who live around here. She states that her sister Donna and brother are very emotional and not realistic in decisions of care. Cecilia states that the patients 9 siblings and the three children (including her) all have different opinions. Cecilia is the patients beneficiary but not DPOA. The patient does not have a DPOA. CM/SS discussed different levels of care with Cecilia but will need to talk when more information is available about patients progress. Will continue to follow.
[2019-08-20 16:27] LABS: BASOPHILS % (AUTO) 0 % (0-10); EOSINOPHILS % (AUTO) 0 % (0-10); HEMATOCRIT 26 % (35-52); HEMOGLOBIN 9.1 G/DL (11.5-16.0); LYMPHOCYTES # (AUTO) 1.5 X 10^3 (1.0-4.0); LYMPHOCYTES % (AUTO) 10 % (12-44); MEAN CORPUSCULAR HEMOGLOBIN 33 PG (25-34); MEAN CORPUSCULAR HGB CONC 35 G/DL (32-36); MEAN CORPUSCULAR VOLUME 96 FL (80-99); MEAN PLATELET VOLUME 8.2 FL (7.4-10.4); MONOCYTES # (AUTO) 0.8 X 10^3 (0.0-1.0); MONOCYTES % (AUTO) 5 % (0-12); NEUTROPHILS # (AUTO) 12.6 X 10^3 (1.8-7.8); NEUTROPHILS % (AUTO) 85 % (42-75); PLATELET COUNT 183 10^3/uL (130-400); RED CELL DISTRIBUTION WIDTH 14.1 % (10.0-14.5); WHITE BLOOD COUNT 14.9 10^3/uL (4.3-11.0)
[2019-08-20 16:48] LABS: ALANINE AMINOTRANSFERASE 34 U/L (0-55); ALBUMIN 2.7 GM/DL (3.2-4.5); ALKALINE PHOSPHATASE 60 U/L (40-136); BILIRUBIN,TOTAL 0.9 MG/DL (0.1-1.0); BUN/CREATININE RATIO 19; CALCIUM 7.6 MG/DL (8.5-10.1); CARBON DIOXIDE 27 MMOL/L (21-32); CHLORIDE 102 MMOL/L (98-107); CREATININE SERUM 0.84 MG/DL (0.60-1.30); GFR ESTIMATED > 60; GLUCOSE 92 MG/DL (70-105); MAGNESIUM 1.7 MG/DL (1.6-2.4); SODIUM 137 MMOL/L (135-145); TOTAL PROTEIN 4.7 GM/DL (6.4-8.2)
[2019-08-20] MEDS ORDERED: morphine INJ 4 MG/ML 1 ML (VIAL/SYRINGE) IVP PRN (18:00)
[2019-08-20] MEDS ORDERED: POTASSIUM CL 10MEQ/50ML IVPB 50 ML IV ONE (18:00)
--- NOTE | 2019-08-20 18:05 | NUR ---
PT HAS BEEN OVERBREATHING THE VENTILATOR, RESPIRATIONS 45-50, PT REMAINS UNABLE TO FOLLOW COMMANDS. THIS RN NOTIFIED DR REINA AND NEW ORDERS RECEIVED. SEE ORDER HX.
[2019-08-21] VITALS (25 sets, daily range): BP systolic 127–172; BP diastolic 71–114
[2019-08-21] MEDS: RT-ALBUTEROL/IPRATROPIUM 3 ML (DUONEB) VIAL INH SCH ×6 (01:41→23:10)
--- NOTE | 2019-08-21 03:48 | Pulmonary Progress Note ---
RHIANNON GOMEZ MEDICAL STUDENT 08/21/19 0348: Subjective Date Seen by a Provider: Aug 21, 2019 Time Seen by a Provider: 03:44 Subjective/Events-last exam Patient is now awake. Nurse reports the pt responds to daughter's command; squeezed with her right hand. Makes eye contact during exam. She does not follow commands for me. Review of Systems Unable to obtain, although awake, pt not responding to questions or following commands. Sepsis Event Evaluation Height, Weight, BMI Height: '" Weight: lbs. oz. kg; 34.00 BMI Method: Focused Exam Lactate Level 08/18/19 13:00: Lactic Acid Level 3.48*H 08/18/19 16:55: Lactic Acid Level 2.53*H 08/18/19 22:11: Lactic Acid Level 1.81 Exam Exam Vital Signs Date Time Temp Pulse Resp B/P (MAP) Pulse Ox O2 Delivery O2 Flow Rate FiO2 08/21/19 03:00 93 19 139/74 (95) 96 Mechanical Ventilator 21.00 08/21/19 02:00 107 25 172/84 (113) 95 Mechanical Ventilator 21.00 08/21/19 01:41 96 28 96 21 08/21/19 01:00 87 18 130/73 (92) 90 Mechanical Ventilator 21.00 08/21/19 01:00 86 08/21/19 00:00 86 18 132/77 (95) 90 Mechanical Ventilator 21.00 08/21/19 00:00 90 Mechanical Ventilator 21 08/20/19 23:49 36.8 08/20/19 23:01 Mechanical Ventilator 21.00 08/20/19 23:00 89 22 138/79 (98) 92 Mechanical Ventilator 25.00 08/20/19 22:51 80 18 96 25 08/20/19 22:00 96 22 138/76 (96) 97 Mechanical Ventilator 25.00 08/20/19 21:00 95 19 128/69 (88) 96 Mechanical Ventilator 25.00 08/20/19 20:00 91 19 130/72 (91) 95 Mechanical Ventilator 25.00 08/20/19 20:00 95 Mechanical Ventilator 25 08/20/19 19:14 97 22 96 25 08/20/19 19:08 37.3 08/20/19 19:08 37.3 08/20/19 19:00 89 18 128/69 (88) 96 Mechanical Ventilator 25.00 08/20/19 19:00 90 08/20/19 18:00 100 24 155/85 (108) 91 Mechanical Ventilator 25.00 08/20/19 17:00 90 21 94 Mechanical Ventilator 25.00 08/20/19 16:27 95 Mechanical Ventilator 25 08/20/19 16:00 87 18 94 Mechanical Ventilator 25.00 08/20/19 15:13 91 23 92 25 08/20/19 15:12 37.1 08/20/19 15:00 98 22 144/96 (112) 92 Mechanical Ventilator 25.00 08/20/19 14:00 92 19 141/81 (101) 94 Mechanical Ventilator 25.00 08/20/19 13:00 90 19 147/84 (105) 95 Mechanical Ventilator 25.00 08/20/19 12:35 95 Mechanical Ventilator 25 08/20/19 12:23 94 08/20/19 12:00 114 19 162/85 (110) 97 Mechanical Ventilator 25.00 08/20/19 11:00 93 20 128/81 (97) 96 Mechanical Ventilator 25.00 08/20/19 10:33 92 20 95 25 08/20/19 10:00 93 21 130/78 (95) 95 Mechanical Ventilator 25.00 08/20/19 09:00 99 22 104/29 (54) 91 Mechanical Ventilator 25.00 08/20/19 08:35 95 Mechanical Ventilator 25 08/20/19 08:00 96 21 118/68 (85) 95 Mechanical Ventilator 25.00 08/20/19 07:00 96 22 109/55 (73) 95 Mechanical Ventilator 25.00 08/20/19 07:00 95 08/20/19 06:40 90 18 98 25 08/20/19 06:40 37.4 08/20/19 06:00 96 29 123/67 (85) 97 Mechanical Ventilator 25.00 08/20/19 05:00 93 19 131/69 (89) 96 Mechanical Ventilator 25.00 08/20/19 04:29 37.3 08/20/19 04:00 95 Mechanical Ventilator 25 08/20/19 04:00 95 21 132/71 (91) 97 Mechanical Ventilator 25.00 08/20/19 03:55 37.9 I & O 08/21/19 06:59 Intake Total 1250 ml Output Total 3825 ml Balance -2575 ml Height & Weight Height: '" Weight: lbs. oz. kg; 34.00 BMI Method: General Appearance: No Apparent Distress, Other (on vent) HEENT: No Scleral Icterus (L), No Scleral Icterus (R) Neck: Supple; No Lymphadenopathy (L), No Lymphadenopathy (R) Respiratory: Lungs Clear, Decreased Breath Sounds (at bases), Other (on vent) Cardiovascular: Regular Rate, Rhythm, No Murmur Capillary Refill: Less Than 3 Seconds Peripheral Pulses: 2+ Dorsalis Pedis (R), 2+ Left Dors-Pedis (L) Gastrointestinal: soft; No distended Extremity: Normal Capillary Refill, Normal Inspection, Pedal Edema, Other (edema/swelling in hands) Neurologic/Psychiatric: Other (makes eye contact during exam but otherwise does not follow commands) Skin: Normal Color, Warm/Dry Results Lab Laboratory Tests 08/19/19 10:30 08/20/19 03:10 08/20/19 05:08 08/20/19 16:15 Assessment/Plan Assessment/Plan Acute respiratory failure probable aspiration -Currently sedated on vent - Zosyn --RVP negative -will start Lasix and decrease IVF once BP is improved. -CXR showed improvement after Lasix -Give 60mg of Lasix IV x 1 -D/C all sedation including Precedex. Check ammonia level. -If pt is not more alert after 3-4hrs will repeat CT of head. -Ammonia minimally elevated and CT head neg. Pt now alert and moving all extremities. Will attempt to wean of vent today. Severe sepsis with shock- r/o abdominal sepsis. Tm101 -Levophed gtt, vasopressin -solucortef -Repeat CT of abd/pelvis is showed mild colitis. -Surgery is following -Repeat ortiz cultures including repeat flu test. -Initial UA is negative -08/20: Elevated BP, Nicardipine 12.5mL/hr, hydralazine, Metoprolol -Repeat flu NEG -Repeat UA shows no e/o UTI -CT chest showing upper lobe infiltrates. No change on CT A/P. -Ortiz cultures pending. Continue Zosyn. Tm 100.2 GIB -Occult stool is positive -Hold lovenox, SCDs in place -Continue Protonix Q 12 Found unresponsive at home per family Metabolic encephalopathy Gastroenteritis with N/V/D -Cdiff toxin -- Negative -Stool cultures pending NIIDM -Continue SSI Anemia RAFAT ELLIS DO 08/21/19 0603: Subjective Time Seen by a Provider: 05:48 Exam Exam General Appearance: No Apparent Distress, Other (on vent) HEENT: No Scleral Icterus (L), No Scleral Icterus (R) Neck: Supple; No Lymphadenopathy (L), No Lymphadenopathy (R) Respiratory: Lungs Clear, Decreased Breath Sounds (at bases), Other (on vent) Cardiovascular: Regular Rate, Rhythm, No Murmur Gastrointestinal: soft; No distended Extremity: Normal Capillary Refill, Normal Inspection, Pedal Edema, Other (edema/swelling in hands) Neurologic/Psychiatric: Other (makes eye contact during exam but otherwise does not follow commands) Skin: Normal Color, Warm/Dry Assessment/Plan Assessment/Plan Acute respiratory failure probable aspiration -Sedation has been off since yesterday. -Pt is more awake -CT reviewed -Will wean and extubate pt -Give 40mg of Lasix IV - Zosyn --RVP negative -will start Lasix and decrease IVF once BP is improved. -CXR showed improvement after Lasix -Give 60mg of Lasix IV x 1 -D/C all sedation including Precedex. Check ammonia level. -If pt is not more alert after 3-4hrs will repeat CT of head. -Ammonia minimally elevated and CT head neg. Pt now alert and moving all extremities. Will attempt to wean of vent today. Severe sepsis with shock- r/o abdominal sepsis. Tm101 -Levophed gtt, vasopressin -solucortef -Repeat CT of abd/pelvis is showed mild colitis. -Surgery is following -Repeat ortiz cultures including repeat flu test. -Initial UA is negative -08/20: Elevated BP, Nicardipine 12.5mL/hr, hydralazine, Metoprolol -Repeat flu NEG -Repeat UA shows no e/o UTI -CT chest showing upper lobe infiltrates. No change on CT A/P. -Ortiz cultures pending. Continue Zosyn. Tm 100.2 GIB -Occult stool is positive -Hold lovenox, SCDs in place -Continue Protonix Q 12 Found unresponsive at home per family Metabolic encephalopathy Gastroenteritis with N/V/D -Cdiff toxin -- Negative -Stool cultures pending NIIDM -Continue SSI Anemia Supervisory-Addendum Brief Verification & Attestation Participated in pt care: history Personally performed: exam, history Care discussed with: Medical Student Procedures: n/a Verification and Attestation of Medical Student E/M Service A medical student performed and documented this service in my presence. I reviewed and verified all information documented by the medical student and made modifications to such information, when appropriate. I personally performed the physical exam and medical decision making. Rafat Ellis, Aug 21, 2019,10:35 RHIANNON GOMEZ MEDICAL STUDENT Aug 21, 2019 03:48 RAFAT ELLIS DO Aug 21, 2019 06:03
[2019-08-21 03:55] LABS: ABG BASE EXCESS 1.4 MMOL/L (-2.5-2.5); ABG OXYGEN SATURATION 89 % (94-100); ABG PCO2 36 MMHG (35-45); ABG PH 7.46 (7.37-7.43); ABG PO2 59 MMHG (79-93); BASOPHILS % (AUTO) 0 % (0-10); EOSINOPHILS # (AUTO) 0.3 10^3/uL (0.0-0.3); EOSINOPHILS % (AUTO) 2 % (0-10); HEMATOCRIT 28 % (35-52); HEMOGLOBIN 9.2 G/DL (11.5-16.0); LYMPHOCYTES # (AUTO) 1.7 X 10^3 (1.0-4.0); LYMPHOCYTES % (AUTO) 13 % (12-44); MEAN CORPUSCULAR HEMOGLOBIN 32 PG (25-34); MEAN CORPUSCULAR HGB CONC 34 G/DL (32-36); MEAN CORPUSCULAR VOLUME 96 FL (80-99); MEAN PLATELET VOLUME 8.5 FL (7.4-10.4); MONOCYTES # (AUTO) 0.8 X 10^3 (0.0-1.0); MONOCYTES % (AUTO) 6 % (0-12); NEUTROPHILS # (AUTO) 10.7 X 10^3 (1.8-7.8); NEUTROPHILS % (AUTO) 79 % (42-75); PLATELET COUNT 192 10^3/uL (130-400); RED CELL DISTRIBUTION WIDTH 14.1 % (10.0-14.5); WHITE BLOOD COUNT 13.5 10^3/uL (4.3-11.0)
[2019-08-21 03:59] LABS: ALLENS TEST POS; INSPIRED O2 26; PATIENT TEMP 36.8; VENTILATOR YES
[2019-08-21 04:12] LABS: BUN/CREATININE RATIO 18; CALCIUM 8.2 MG/DL (8.5-10.1); CARBON DIOXIDE 23 MMOL/L (21-32); CHLORIDE 105 MMOL/L (98-107); CREATININE SERUM 0.77 MG/DL (0.60-1.30); GFR ESTIMATED > 60; GLUCOSE 81 MG/DL (70-105); MAGNESIUM 1.8 MG/DL (1.6-2.4); PHOSPHORUS 3.2 MG/DL (2.3-4.7); POTASSIUM 3.4 MMOL/L (3.6-5.0); SODIUM 140 MMOL/L (135-145)
[2019-08-21] MEDS: POTASSIUM CL 10MEQ/50ML IVPB 50 ML IV SCH ×7 (04:30→08:29)
[2019-08-21] MEDS: EPINEPHrine 1 MG INJECTION 2 MG in NS (IVPB) 248 ML IV SCH (04:30)
[2019-08-21] MEDS: KCL 20 MEQ TAB (K-DUR) PO SCH (04:31)
[2019-08-21] MEDS: MAGNESIUM 1 GM/100 ML IVPB 100 ML IV SCH (04:31)
[2019-08-21] MEDS: inSUlin ASPART (NovoLOG) 1 UNIT/0.01 ML (CHARGE PER UNIT) SC SCH ×3 (05:06→18:34)
[2019-08-21] MEDS: hydrALAZINE (APESOLINE) 20 MG/ML VIAL IV SCH ×4 (05:21→23:57)
[2019-08-21] MEDS ORDERED: FUROSEMIDE 40 MG/4 ML INJ (LASIX) ONE (05:44)
[2019-08-21] MEDS ORDERED: FUROSEMIDE 40 MG/4 ML INJ (LASIX) IVP ONE (05:45)
[2019-08-21] MEDS: PIPERACILLIN/TAZO 4.5 GM/NS 100 ML IV SCH ×6 (05:53→22:30)
[2019-08-21 07:00] LABS: ABG BASE EXCESS 2.4 MMOL/L (-2.5-2.5); ABG OXYGEN SATURATION 88 % (94-100); ABG PCO2 36 MMHG (35-45); ABG PH 7.47 (7.37-7.43); ABG PO2 57 MMHG (79-93)
[2019-08-21 07:01] LABS: ALLENS TEST POSITIVE; INSPIRED O2 21; PATIENT TEMP 36.8; VENTILATOR YES
--- NOTE | 2019-08-21 07:38 | Diagnostic Imaging Report ---
INDICATION: Respiratory failure. TECHNIQUE: Single view chest 3:27 AM. CORRELATION STUDY: 08/20/2019 FINDINGS: Endotracheal tube tip at the level of the clavicles. Gastric tube tip relatively stable in position, superimposed over the rosmery. Heart size and mediastinum are prominent. Vasculature overall appears increased. Scattered pulmonary parenchymal densities throughout both lung black does appear to be changed from prior study. IMPRESSION: 1. Gastric tube tip projects over the mid chest. Likely within the mid esophagus. 2. Increasing severity pulmonary vascular congestion and edema. 3. Scattered bilateral pulmonary parenchymal densities are present, adversely changed from prior study. Dictated by: Dictated on workstation # [id number]
[2019-08-21] MEDS: niCARdipine IV 50 MG in NS (IVPB) 230 ML IV SCH ×2 (08:00→18:34)
[2019-08-21] MEDS: meTOprolol TARTRATE 50 MG (LOPRESSOR) TAB PO SCH ×2 (08:26→22:13)
[2019-08-21] MEDS: lisINopril 20 MG (PRINIVIL) TABLET PO SCH (08:26)
[2019-08-21] MEDS: ANIDULAFUNGIN INJECTION 100 MG in NS (IVPB) 100 ML IV SCH (08:26)
[2019-08-21] MEDS: PANTOPRAZOLE 40 MG (PROTONIX) VIAL IV SCH ×2 (08:26→22:14)
[2019-08-21] MEDS: MICONAZOLE 2% POWDER (DESENEX AF) 90 GM TOP SCH ×2 (08:27→22:14)
--- NOTE | 2019-08-21 08:42 | NUR ---
0715 DR REINA NOTIFIED OF ABG RESULTS, ORDERS RECEIVED TO EXTUBATE PT. 0725 RT EXTUBATED PT, RESTRAINTS REMOVED, PT PLACED ON 2 LITER NC AND SA02 NOTED TO BE 97%, PT DOES OPEN EYES, HOWEVER REMAINS UNABLE TO FOLLOW COMMANDS AT THIS TIME. CALL LIGHT AND OTHER PERSONAL ITEMS WITHIN REACH, RAILS UP X 4. WILL CONTINUE TO MONITOR.
--- NOTE | 2019-08-21 08:47 | Physical Therapy Evaluation ---
PT Evaluation-General Medical Diagnosis Admission Date Aug 16, 2019 at 23:15 Medical Diagnosis: AMS Onset Date: Aug 16, 2019 Therapy Diagnosis Therapy Diagnosis: Debility Precautions Precautions/Isolations: Aspiration, Fall Prevention, Pressure Ulcer Referral Physician: Rhonda Reason for Referral: Evaluation/Treatment Medical History Pertinent Medical History: DM Current History Patient presented to ER with AMS. Patient intubated 08/16 to 08/21. Reviewed History: Yes Social History Patient opened eyes but unresponsive, could not answer questions. Prior Prior Level of Function SCALE: Activities may be completed with or without assistive devices. 5-Omdshcunoz-ghkrizm completes the activity by him/herself with no assistance from a helper. 5-Set-up or Clean-up Assistance-helper sets up or cleans up; patient completes activity. [place] assists only prior to or following the activity. 4-Supervision or Touching Assistance-helper provides verbal cues and/or touching/steadying and/or contact guard assistance as patient completes activity. Assistance may be provided throughout the activity or intermittently. 3-Partial/Moderate Assistance-helper does LESS THAN HALF the effort. [place] lifts, holds or supports trunk or limbs, but provides less than half the effort. 2-Substantial/Maximal Assistance-helper does MORE THAN HALF the effort. [place] lifts or holds trunk or limbs and provides more than half the effort. 3-Zdjwnsbxd-dspqum does ALL the effort. Patient does none of the effort to complete the activity. Or, the assistance of 2 or more helpers is required for the patient to complete the activity. If activity was not attempted, code reason: 7-Patient Refused. 9-Not Applicable-not attempted and the patient did not perform the activity before the current illness, exacerbation or injury. 10-Not Attempted due to Environmental Limitations-(lack of equipment, weather restraints, etc.). 88-Not Attempted due to Medical Conditions or Safety Concerns. Patient opened eyes but unresponsive, could not answer questions. PT Evaluation-Current Subjective Patient was able to open eyes but unable to communicate at this time. Pt/Family Goals none stated Objective Patient Orientation: Eyes Open, Unresponsive Attachments: Jimenez Catheter, Other-See Comments (Fecal tube), IV ROM/Strength ROM Lower Extremities Unable to actively move but passively WNL Strength Lower Extremities Unable to actively move Integumentary/Posture Integumentary See nursing notes. Neuromuscular (Tone, Coordination, Reflexes) Negative clonus and Babinski BLE. No increased or decreased tone. Sensory Vision: Unable to Assess Hearing: Unable to Assess Gait Does the Patient Walk?: No and Walking Goal NOT indicated Assessment/Needs Patient is unresponsive at this time. She did open her eyes but unable to keep open during treatment. Performed PROM to both legs. Rehab Potential: Poor PT Insurance Territory Manager Goals Insurance Territory Manager Goals PT [facility] Goals Time Frame: Sep 04, 2019 Roll Left & Right (QC): 3 Sit to Lying (QC): 3 Lying-Sitting on Side/Bed(QC): 3 Sit to Stand (QC): 3 PT Plan Problem List Problem List: Activity Tolerance, Functional Strength, Safety, Balance, Gait, Transfer, Bed Mobility, ROM Treatment/Plan Treatment Plan: Continue Plan of Care Treatment Plan: Bed Mobility, Education, Functional Activity Yong, Functional Strength, Gait, Safety, Therapeutic Exercise, Transfers Treatment Duration: Sep 04, 2019 Frequency: 5 times per week Estimated Hrs Per Day: .25 hour per day Safety Risks/Education Patient Education: Correct Positioning Discharge Recommendations Plan ROM/stretching, perform bed mobility and transfers if patient can become alert and participate Time/GCodes Time In: 813 Time Out: 823 Total Billed Treatment Time: 10 Total Billed Treatment 1 visit JAYSHREE BREWSTER PT Aug 21, 2019 08:47
--- NOTE | 2019-08-21 09:36 | Progress Note - Hospitalist ---
Subjective HPI/CC On Admission Date Seen by Provider: Aug 21, 2019 Time Seen by Provider: 08:10 Subjective/Events-last exam Pt is now extubated. She opens eyes to commands and tracks but otherwise does not respond or interact. No ROS possible. Focused Exam Lactate Level 08/18/19 13:00: Lactic Acid Level 3.48*H 08/18/19 16:55: Lactic Acid Level 2.53*H 08/18/19 22:11: Lactic Acid Level 1.81 Objective Exam Vital Signs Vital Signs Date Time Temp Pulse Resp B/P (MAP) Pulse Ox O2 Delivery O2 Flow Rate FiO2 08/21/19 09:00 109 24 166/89 (114) 100 Nasal Cannula 2.00 08/21/19 08:04 36.6 28 Capillary Refill : Less Than 3 Seconds General Appearance: Chronically ill, Obese HEENT: PERRL/EOMI, Moist Mucous Membranes Neck: Other (central line) Respiratory: No Respiratory Distress, Decreased Breath Sounds Cardiovascular: Regular Rate, Rhythm, No Murmur Gastrointestinal: Normal Bowel Sounds, Soft Genital/Rectal: Other (rodríguez in place) Extremity: Pedal Edema Neurologic/Psychiatric: Alert, Other (altered, only tracks but does not respond) Results/Procedures Lab Laboratory Tests 08/20/19 16:15 08/21/19 03:40 Patient resulted labs reviewed. Imaging: Reviewed Imaging Report Assessment/Plan Assessment and Plan Assess & Plan/Chief Complaint Septic Shock- resolved Unsure of etiology but improving with treatment Continue on Vanc and Zosyn, Eraxis Repeat CT shows mild colitis, CXR with possible PNA Blood cultures likely contaminated C diff negative Rapid flu negative Negative RVP Acute Respiratory Failure COPD Extuabted Pulm consulted, appreciate recs RVP negative MAT protocol Lasix ordered Altered Mental Status CT Head negative Will get MRI Ammonia level 36 Anemia- Now stabilized- drop was likely dilutional Surgery consulted NIDDMII Daughter states she was on insulin but quit taking it SSI fasting BS well controlled Anxiety and Depression Broached topic of overdose with daughter and she states that's not a possibility as meds are monitored Chronic Pain On hydrocodone at home Hypokalemia Replace per protocol DVT ppx: Lovenox Critical Care Ventilator Management Diagnosis/Problems Diagnosis/Problems (1) Lactic acid acidosis (2) Respiratory failure with hypoxia Status: Acute Qualifiers: Chronicity: acute Qualified Codes: J96.01 - Acute respiratory failure with hypoxia (3) Colitis Status: Acute (4) Septic shock Status: Acute (5) Normocytic anemia Status: Acute ANTONIO MCCARTY MD Aug 21, 2019 09:36
[2019-08-21] MEDS: ENOXAPARIN 40 MG/0.4 ML (LOVENOX) SYR SQ SCH ×2 (10:34→22:14)
--- NOTE | 2019-08-21 11:22 | Diagnostic Imaging Report ---
PROCEDURE: MR imaging of the brain without contrast. TECHNIQUE: Multiplanar, multisequence MR imaging of the brain was performed without contrast. INDICATION: Altered mental status. Correlation is made to prior MRI brain from 12/07/2017. Ventricles and sulci are stable in appearance. There is moderate motion artifact from patient movement. No diffusion restriction is identified to suggest acute ischemia. The normal expected flow-voids within the carotid siphons are seen. No acute intra-axial or extra-axial hemorrhage is detected. There is no midline shift or sulcal effacement. Corpus callosum is unremarkable. The sella and parasellar structures are unremarkable. IMPRESSION: Compromised study due to motion artifact. No acute abnormality is detected. Dictated by: Dictated on workstation # [id number]
[2019-08-21] MEDS: KETOROLAC 15 MG/ML VIAL IVP PRN (13:09)
[2019-08-21] MEDS ORDERED: HYDROCORTISONE 25 MG SUPPOSITORY (ANUSOL HC) PR PRN (14:00)
--- NOTE | 2019-08-21 14:20 | Speech Therapy Progress Note ---
Therapy Progress Note ST attempted to do Bedside Dysphagia Evaluation per physician's order. (Order states for speech eval, nursing clarified for BDE) Patient unable to safely participate at this time. She responded to verbal and tactile cues with eye gaze but was non verbal. ST will follow up when patient is able to safely have oral intake and participate with evaluation. NATE SUAREZ Aug 21, 2019 14:20
--- NOTE | 2019-08-21 15:27 | ST Dysphagia Evaluation ---
Speech Evaluation-General Medical Diagnosis AMS Onset Date: Aug 16, 2019 Therapy Diagnosis Therapy Diagnosis: Oropharyngeal Dysphagia Precautions Precautions: Aspiration Referral Referring Physician: Dr. Molina Reason for Referral: Evaluation/Treatment Medical History Pertinent Medical History: DM Reviewed History: Yes Speech PLF/Current-Dysphagia Prior Level of Function Patient was able to eat anything she wanted prior to this hospitalization. Subjective Patient was pleasant and cooperative with the Bedside Dysphagia Evaluation. Cognitive Status Patient Orientation: Person Oral Motor Skills Dentition: Edentalous Patient was NPO pending the BDE. Oral Expression Ability: Mild Impairment Voice Voice Phonatory-Based Quality: Breathy, Tremor Voice Pitch: Normal Voice Loudness: Mildly Soft/Quiet Face Facial Symmetry: Symmetrical Oral-Facial Assessment Oral-Facial Dentition: Normal Labial Seal Description: Reduced ROM Smile: Reduced ROM Puff Cheeks: Reduced Strength Lingual Protrusion: Normal Lingual ROM: Normal Lingual Strength: Normal Pharynx Velopharyngeal Move.: Normal Volitional Dry Swallow: Yes Can Clear Throat Volitionally: Yes Dysphagia Evaluation Consistencies Presented: Thin Liquid, Mechanical Soft, Pureed Oral phase is within normal range of function for all consistencies presented. Pharyngeal phase is within normal range of function for all consistencies presented. Dietary Recommendations: Mechanical Soft Liquid Recommendations: Thin Swallowing Precautions: Alternate Liquids/Solids, Double Swallow, Decreased Bolus 1/2 Tsp, Decreased Rate of Oral Intake, Liquids from Straw, Small Bites and Sips, Sitting Upright 90 Degrees, Sitting 90 Degrees 30 Post Intake Dysphagia Evaluation Summary Patient was admitted to the hospital via ED due to AMS. Patient was sedated and intubated upon arrival on 08/17/2019. She was extubated today. Patient has not been alert previously, however she was alert and able to safely participate this afternoon with the BDE. Patient was given 1/2 tsp of thin x2 and small sips via straw x2 without difficulty. Patient was also presented 1/2 tsp of puree and mechanical soft consistencies without difficulty or overt s/s of aspiration. Patient is recommended for Dysphagia II diet level with thin liquids. Patient is edentulous and recently became alert and extubated, therefore regular consistency was not presented. Patient's diet level recs. were provided for her nurse, Ely. Patient will be treated by ST to ensure she is receiving the least restrictive diet level. Barriers to Learning Patient was admitted to the hospital due to AMS. Patient was intubated for 5 days. Speech Short Term Goals Short Term Goals Short Term Goals 1) Patient will tolerate least restrictive diet level without s/s of aspiration at 90% or greater. 2) Patient/caregiver will utilize compensatory strategies as trained at 90% or greater with minimal cues. Speech Group Home Goals Group Home Goals Patient will maintain adequate nutrition/hydration via safe effective swallow function. Speech-Plan Patient/Family Goals Patient/Family Goals: Patient plans on returning to her home with family support upon hospital discharge. Treatment Plan Speech Therapy Treatment Plan: Continue Plan of Care Frequency: 2 times per week Estimated Hrs Per Day: .25 hour per day Rehab Potential: Fair Barriers to Learning: Patient was admitted to the hospital due to AMS. Patient was intubated for 5 days. Pt/Family Agrees to Plan: Yes Safety Risks/Education Teaching Recipient: Patient Teaching Methods: Demonstration, Discussion Response to Teaching: Verbalize Understanding, Return Demonstration Education Topics Provided: Safety of oral intake, diet level Time Speech Therapy Time In: 15:00 Speech Therapy Time Out: 15:15 Total Billed Time: 15 Billed Treatment Time 1JAMMIE BETHANIA ST Aug 21, 2019 15:27
--- NOTE | 2019-08-21 19:45 | NUR ---
THIS RN AT BEDSIDE TO ASSESS PT AT THIS TIME. PT'S DAUGHTER AT BEDSIDE CONCERNED THAT PATIENT REPORTS SHE IS STARVING BUT THE PT IS REPORTING "THAT NOTHING TASTES GOOD." PT PROJECTILE VOMITED APPROXIMATELY 2 FEET AT THIS TIME COVERING HERSELF AND BEDDING. THIS RN AND CHILD AND ADOLESCENT PSYCHIATRIST CLEANED PT, AND PLACED NEW GOWN AND BEDDING. PT REPORTS SHE "FEELS BETTER." WILL CONTINUE TO MONITOR.
[2019-08-21] MEDS: FUROSEMIDE 40 MG/4 ML INJ (LASIX) IVP SCH (22:13)
[2019-08-21] MEDS: LACTATED RINGERS 1,000 ML IV SCH (22:30)
[2019-08-22] VITALS (15 sets, daily range): BP systolic 102–155; BP diastolic 56–98
[2019-08-22 00:23] LABS: BUN/CREATININE RATIO 15; CALCIUM 8.5 MG/DL (8.5-10.1); CARBON DIOXIDE 26 MMOL/L (21-32); CHLORIDE 100 MMOL/L (98-107); CREATININE SERUM 0.75 MG/DL (0.60-1.30); GFR ESTIMATED > 60; GLUCOSE 94 MG/DL (70-105); POTASSIUM 3.2 MMOL/L (3.6-5.0); SODIUM 140 MMOL/L (135-145)
[2019-08-22] MEDS: inSUlin ASPART (NovoLOG) 1 UNIT/0.01 ML (CHARGE PER UNIT) SC SCH ×5 (00:27→21:06)
[2019-08-22] MEDS: POTASSIUM CL 10MEQ/50ML IVPB 50 ML IV SCH ×5 (01:08→05:17)
[2019-08-22] MEDS: RT-ALBUTEROL/IPRATROPIUM 3 ML (DUONEB) VIAL INH SCH ×6 (02:27→22:31)
[2019-08-22] MEDS: EPINEPHrine 1 MG INJECTION 2 MG in NS (IVPB) 248 ML IV SCH (03:26)
[2019-08-22] MEDS: niCARdipine IV 50 MG in NS (IVPB) 230 ML IV SCH (03:26)
[2019-08-22 04:06] LABS: BASOPHILS % (AUTO) 0 % (0-10); EOSINOPHILS # (AUTO) 0.2 10^3/uL (0.0-0.3); EOSINOPHILS % (AUTO) 3 % (0-10); HEMATOCRIT 28 % (35-52); HEMOGLOBIN 9.5 G/DL (11.5-16.0); LYMPHOCYTES # (AUTO) 1.5 X 10^3 (1.0-4.0); LYMPHOCYTES % (AUTO) 15 % (12-44); MEAN CORPUSCULAR HEMOGLOBIN 32 PG (25-34); MEAN CORPUSCULAR HGB CONC 34 G/DL (32-36); MEAN CORPUSCULAR VOLUME 96 FL (80-99); MEAN PLATELET VOLUME 8.9 FL (7.4-10.4); MONOCYTES # (AUTO) 0.6 X 10^3 (0.0-1.0); MONOCYTES % (AUTO) 6 % (0-12); NEUTROPHILS # (AUTO) 7.3 X 10^3 (1.8-7.8); NEUTROPHILS % (AUTO) 76 % (42-75); PLATELET COUNT 180 10^3/uL (130-400); WHITE BLOOD COUNT 9.6 10^3/uL (4.3-11.0)
[2019-08-22 04:22] LABS: BUN/CREATININE RATIO 15; CALCIUM 8.4 MG/DL (8.5-10.1); CARBON DIOXIDE 27 MMOL/L (21-32); CHLORIDE 100 MMOL/L (98-107); CREATININE SERUM 0.72 MG/DL (0.60-1.30); GFR ESTIMATED > 60; GLUCOSE 95 MG/DL (70-105); MAGNESIUM 1.6 MG/DL (1.6-2.4); PHOSPHORUS 3.7 MG/DL (2.3-4.7); POTASSIUM 3.7 MMOL/L (3.6-5.0); SODIUM 139 MMOL/L (135-145)
[2019-08-22] MEDS: hydrALAZINE (APESOLINE) 20 MG/ML VIAL IV SCH (05:17)
[2019-08-22] MEDS: KCL 20 MEQ TAB (K-DUR) PO SCH (05:17)
[2019-08-22] MEDS: MAGNESIUM 1 GM/100 ML IVPB 100 ML IV SCH (05:17)
[2019-08-22] MEDS: PIPERACILLIN/TAZO 4.5 GM/NS 100 ML IV SCH ×6 (05:59→22:50)
--- NOTE | 2019-08-22 07:29 | Diagnostic Imaging Report ---
INDICATION: Respiratory failure. Comparison made with prior examination 08/21/2019. FINDINGS: Heart size is normal. There is venous congestion. There is no pleural effusion or pneumothorax. Mediastinum is unremarkable. ET and NG tubes have been removed. IMPRESSION: Persistent central pulmonary venous congestion. Dictated by: Dictated on workstation # [id number]
[2019-08-22] MEDS: PANTOPRAZOLE 40 MG (PROTONIX) VIAL IV SCH ×2 (08:48→21:06)
[2019-08-22] MEDS: FUROSEMIDE 40 MG/4 ML INJ (LASIX) IVP SCH ×2 (08:48→21:06)
[2019-08-22] MEDS: lisINopril 20 MG (PRINIVIL) TABLET PO SCH (08:48)
[2019-08-22] MEDS: meTOprolol TARTRATE 50 MG (LOPRESSOR) TAB PO SCH ×2 (08:48→19:52)
[2019-08-22] MEDS: ANIDULAFUNGIN INJECTION 100 MG in NS (IVPB) 100 ML IV SCH (08:48)
[2019-08-22] MEDS: MICONAZOLE 2% POWDER (DESENEX AF) 90 GM TOP SCH ×2 (08:49→21:06)
[2019-08-22] MEDS: ENOXAPARIN 40 MG/0.4 ML (LOVENOX) SYR SQ SCH ×2 (08:49→21:06)
--- NOTE | 2019-08-22 09:02 | Progress Note - Hospitalist ---
Subjective HPI/CC On Admission Date Seen by Provider: Aug 22, 2019 Time Seen by Provider: 08:56 Subjective/Events-last exam Pt reports doing "alright." No complaints at this time. Discussed with RN and having very loose stools. No family at bedside. Objective Exam Vital Signs Vital Signs Date Time Temp Pulse Resp B/P (MAP) Pulse Ox O2 Delivery O2 Flow Rate FiO2 08/22/19 08:00 37.4 08/22/19 08:00 90 25 146/95 (112) 94 Room Air 08/21/19 17:00 08/21/19 08:04 28 Capillary Refill : Less Than 3 Seconds General Appearance: No Apparent Distress, Chronically ill Neck: Other (central line in place) Respiratory: No Accessory Muscle Use, No Respiratory Distress, Decreased Breath Sounds Cardiovascular: Regular Rate, Rhythm, No Murmur Gastrointestinal: Normal Bowel Sounds, Soft Rectal: Other (rectal tube in place) Genital/Rectal: Other (rodríguez in place) Extremity: Swelling Neurologic/Psychiatric: Alert, Other (mentation much improved- oriented to person and place) Results/Procedures Lab Laboratory Tests 08/21/19 23:55 08/22/19 03:15 Patient resulted labs reviewed. Imaging: Reviewed Imaging Report Assessment/Plan Assessment and Plan Assess & Plan/Chief Complaint Septic Shock- resolved Unsure of etiology but improving with treatment Continue on Zosyn/ Eraxis since she continues to improve Blood cultures likely contaminated C diff negative on arrival but will recheck given new onset diarrhea Rapid flu negative Negative RVP Will transfer to [facility] status today Acute Respiratory Failure- resolved COPD Extubated 08/21 Pulm consulted, appreciate recs RVP negative MAT protocol Continue Lasix Altered Mental Status- improving CT Head negative MRI was limited due to motion but no acute abnormalities seen Anemia- Now stabilized- drop was likely dilutional Surgery consulted, appreciate recs NIDDMII Daughter states she was on insulin but quit taking it SSI fasting BS well controlled Anxiety and Depression Broached topic of overdose with daughter and she states that's not a possibility as meds are monitored Chronic Pain On hydrocodone at home- no complaints of pain at this time Hypokalemia Replace per protocol Debility: PT/OT Dysphagia: Speech therapy consulted DVT ppx: Lovenox Critical Care Ventilator Management Diagnosis/Problems Diagnosis/Problems (1) Lactic acid acidosis (2) Respiratory failure with hypoxia Status: Acute Qualifiers: Chronicity: acute Qualified Codes: J96.01 - Acute respiratory failure with hypoxia (3) Colitis Status: Acute (4) Septic shock Status: Acute (5) Normocytic anemia Status: Acute (6) Aspiration pneumonia Status: Acute Qualifiers: Aspiration pneumonia type: due to vomit Laterality: unspecified laterality Lung location: unspecified part of lung Qualified Codes: J69.0 - Pneumonitis due to inhalation of food and vomit (7) Hypokalemia Status: Acute (8) Essential (primary) hypertension Status: Chronic (9) Non-insulin dependent type 2 diabetes mellitus Status: Chronic (10) Prophylactic measure Status: Chronic (11) 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
[2019-08-22] MEDS ORDERED: GABAPENTIN 600 MG (NEURONTIN) TAB PO PRN (09:45)
--- NOTE | 2019-08-22 12:39 | Physical Therapy Daily Note ---
PT Daily Note-Current Subjective Answers most questions. Agrees to attempt sitting EOB Mental Status Patient Orientation: Person, Confused Transfers SCALE: Activities may be completed with or without assistive devices. 5-Fnmaksbhhe-htbzchg completes the activity by him/herself with no assistance from a helper. 5-Set-up or Clean-up Assistance-helper sets up or cleans up; patient completes activity. [place] assists only prior to or following the activity. 4-Supervision or Touching Assistance-helper provides verbal cues and/or nereyda mary ellen/steadying and/or contact guard assistance as patient completes activity. Assistance may be provided throughout the activity or intermittently. 3-Partial/Moderate Assistance-helper does LESS THAN HALF the effort. [place] lifts, holds or supports trunk or limbs, but provides less than half the effort. 2-Substantial/Maximal Assistance-helper does MORE THAN HALF the effort. [place] lifts or holds trunk or limbs and provides more than half the effort. 5-Bjqqktbnf-hwywip does ALL the effort. Patient does none of the effort to complete the activity. Or, the assistance of 2 or more helpers is required for the patient to complete the activity. If activity was not attempted, code reason: 7-Patient Refused. 9-Not Applicable-not attempted and the patient did not perform the activity before the current illness, exacerbation or injury. 10-Not Attempted due to Environmental Limitations-(lack of equipment, weather restraints, etc.). 88-Not Attempted due to Medical Conditions or Safety Concerns. Treatments Pt with limited verbalization during treatment and difficulty initiating movement or following cues. Sup to/from sit EOB dependent of 2. Pt sat EOB x 5 minutes with max assist to maintain upright posture. cued pt to perform deep breathing, performed AP and minimal LAQ. Pt in bed post treatment with SCD's and heel protectors in place, arms supported and needs met. Oxygen in situ. Assessment Current Status: Fair Progress She did allow PT to intervene. Difficulty with participation but did try. Limited ability to initiate tasks or follow through. Dependent assist. PT Senior Living Goals Apron Trimmer Goals PT Senior Living Goals Time Frame: Sep 04, 2019 Roll Left & Right (QC): 3 Sit to Lying (QC): 3 Lying-Sitting on Side/Bed(QC): 3 Sit to Stand (QC): 3 PT Plan Problem List Problem List: Activity Tolerance, Functional Strength, Safety Treatment/Plan Treatment Plan: Continue Plan of Care Treatment Plan: Bed Mobility, Education, Functional Activity Yong, Functional Strength, Gait, Safety, Therapeutic Exercise, Transfers Treatment Duration: Sep 04, 2019 Frequency: 5 times per week Estimated Hrs Per Day: .25 hour per day Patient and/or Family Agrees t: Yes Safety Risks/Education Patient Education: Safety Issues Teaching Recipient: Patient Teaching Methods: Discussion Response to Teaching: Reinforcement Needed Time/GCodes Time In: 1030 Time Out: 1049 Total Billed Treatment Time: 19 Total Billed Treatment visit FA 19 LENNOX YANG PT Aug 22, 2019 12:39
[2019-08-22] MEDS: LOPERAMIDE 2 MG (IMODIUM) TABLET PO PRN ×2 (13:40→18:06)
[2019-08-22] MEDS: KETOROLAC 15 MG/ML VIAL IVP PRN (18:13)
[2019-08-22] MEDS: OXYBUTYNIN (DITROPAN) 5 MG TAB PO SCH (21:06)
[2019-08-23] VITALS (7 sets, daily range): BP systolic 91–121; BP diastolic 58–81
[2019-08-23] MEDS: RT-ALBUTEROL/IPRATROPIUM 3 ML (DUONEB) VIAL INH SCH ×6 (01:50→21:30)
[2019-08-23 04:20] LABS: BASOPHILS % (AUTO) 0 % (0-10); EOSINOPHILS # (AUTO) 0.3 10^3/uL (0.0-0.3); EOSINOPHILS % (AUTO) 4 % (0-10); HEMATOCRIT 28 % (35-52); HEMOGLOBIN 9.3 G/DL (11.5-16.0); LYMPHOCYTES # (AUTO) 2.1 X 10^3 (1.0-4.0); LYMPHOCYTES % (AUTO) 24 % (12-44); MEAN CORPUSCULAR HEMOGLOBIN 32 PG (25-34); MEAN CORPUSCULAR HGB CONC 33 G/DL (32-36); MEAN CORPUSCULAR VOLUME 98 FL (80-99); MEAN PLATELET VOLUME 9.4 FL (7.4-10.4); MONOCYTES # (AUTO) 0.6 X 10^3 (0.0-1.0); MONOCYTES % (AUTO) 6 % (0-12); NEUTROPHILS # (AUTO) 5.7 X 10^3 (1.8-7.8); NEUTROPHILS % (AUTO) 65 % (42-75); PLATELET COUNT 190 10^3/uL (130-400); WHITE BLOOD COUNT 8.7 10^3/uL (4.3-11.0)
[2019-08-23 04:44] LABS: BUN/CREATININE RATIO 16; CALCIUM 8.2 MG/DL (8.5-10.1); CARBON DIOXIDE 25 MMOL/L (21-32); CHLORIDE 99 MMOL/L (98-107); CREATININE SERUM 0.79 MG/DL (0.60-1.30); GFR ESTIMATED > 60; GLUCOSE 100 MG/DL (70-105); MAGNESIUM 1.4 MG/DL (1.6-2.4); PHOSPHORUS 3.4 MG/DL (2.3-4.7); POTASSIUM 3.1 MMOL/L (3.6-5.0); SODIUM 138 MMOL/L (135-145)
[2019-08-23] MEDS: POTASSIUM CL 10MEQ/50ML IVPB 50 ML IV SCH ×5 (05:43→08:24)
[2019-08-23] MEDS: MAGNESIUM 1 GM/100 ML IVPB 100 ML IV SCH ×3 (05:43→08:23)
[2019-08-23] MEDS: KCL 20 MEQ TAB (K-DUR) PO SCH (05:43)
[2019-08-23] MEDS: inSUlin ASPART (NovoLOG) 1 UNIT/0.01 ML (CHARGE PER UNIT) SC SCH ×4 (07:03→21:31)
[2019-08-23] MEDS: PIPERACILLIN/TAZO 4.5 GM/NS 100 ML IV SCH ×6 (07:04→21:31)
[2019-08-23] MEDS: PANTOPRAZOLE 40 MG (PROTONIX) VIAL IV SCH ×2 (08:08→21:26)
[2019-08-23] MEDS: LOPERAMIDE 2 MG (IMODIUM) TABLET PO PRN (08:08)
[2019-08-23] MEDS: FUROSEMIDE 40 MG/4 ML INJ (LASIX) IVP SCH ×2 (08:08→21:26)
[2019-08-23] MEDS: MICONAZOLE 2% POWDER (DESENEX AF) 90 GM TOP SCH ×2 (08:08→21:26)
[2019-08-23] MEDS: ENOXAPARIN 40 MG/0.4 ML (LOVENOX) SYR SQ SCH ×2 (08:08→21:26)
[2019-08-23] MEDS: OXYBUTYNIN (DITROPAN) 5 MG TAB PO SCH ×2 (08:08→21:31)
[2019-08-23] MEDS: meTOprolol TARTRATE 50 MG (LOPRESSOR) TAB PO SCH ×2 (08:09→21:25)
[2019-08-23] MEDS: SIMvastatin 40 MG (ZOCOR) TAB PO SCH (08:09)
[2019-08-23] MEDS: lisINopril 20 MG (PRINIVIL) TABLET PO SCH (08:09)
[2019-08-23] MEDS: ANIDULAFUNGIN INJECTION 100 MG in NS (IVPB) 100 ML IV SCH (11:24)
--- NOTE | 2019-08-23 11:30 | NUR ---
PATIENT TO 4TH FLOOR ROOM 429-1 VIA RECLINER AT THIS TIME, ACCOMPANIED BY KIRK BALLESTEROS FROM ICU.. BEDSIDE REPORT DONE AT THIS TIME.
--- NOTE | 2019-08-23 11:30 | NUR ---
pt to room 429 in chair at bedside. in room with her. report given to Carli BRADLEY
--- OUTSIDE RECORDS SUMMARY | 2019-08-23 12:11 | XMS REPORT ---
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 Name Role Phone ANGE REYNOSO Unavailable PROBLEMS Type Condition ICD9-CM Code [id number] Code Onset Dates Condition S tatus SNOMED Code Problem Bilateral low back pain without sciatica M54.5 Active 935612239 Problem Anxiety F41.9 Active 07693611 Problem Chronic pain syndrome G89.4 Active 766833354 Problem Thrush B37.0 Active 72954465 Problem Type 2 diabetes mellitus with complication E11.8 Active 06057544 Problem COPD with acute exacerbation J44.1 A ctive 820692363 Problem History of long-term use of multiple prescription drugs Z92.29 Active 722324251 Problem Essential hypertension I10 Active 58640647 Problem Mixed hyperlipidemia E78.2 Active 055155359 Problem Long-term use of high-risk medication Z79.899 Active 210327893 Problem Chronic obstructive pulmonary disease, unspecified COPD ty pe J44.9 Active [id number] ALLERGIES No Information ENCOUNTERS Encounter Location Date Diagnosis [facility] [address] [id number] [address] [place] [address] Nov, [facility] [address] [id number] [address] [place] [address] October, Scabies B86 [facility] [address] [id number] [address] [place] [address] October, Acute upper respiratory infe ction, unspecified J06.9 [facility] [address] [id number] [address] [place] [address] October, Dysuria R30.0 and Coughing R 05 [facility] [id number] [place] [address] Aug, [facility] [address] [id number] [address] [place] [address] Jun, [facility] [address] [id number] [address] [place] [address] Jun, [facility] [address] [id number] [address] [place] [address] Jun, [facility] [address] [id number] [address] [place] [address] May, [facility] [address] [id number] [address] [place] [address] May, [facility] [address] [facility] [id number] [address] [place] [address] May, [facility] [address] [facility] [id number] [address] [place] [address] Apr, Type 2 diabetes mellitus wit h complication E11.8 ; Chronic pain syndrome G89.4 ; Bilateral low back pain without sciatica M54.5 ; Essential hypertension I10 ; Anxiety F41.9 ; COPD with acute exacerbation J44.1 ; Pain of left hand M79.642 and Pain in right hand M79.641 [facility] [address] [id number] [address] [place] [address] Apr, [facility] [address] [id number] [address] [place] [address] Mar, [facility] [address] [id number] [address] [place] [id number] Mar, [facility] [address] [id number] [address] [place] [address] Mar, [facility] [address] [facility] [id number] [address] [place] [id number] Feb, [facility] [address] [facility] [id number] [address] [place] [address] Feb, [facility] [address] [id number] [address] [place] [address] Jan, Type 2 diabetes mellitus wit h complication E11.8 ; Chronic pain syndrome G89.4 ; Bilateral low back pain without sciatica M54.5 ; Essential hypertension I10 ; Anxiety F41.9 ; Chronic obstructive pulmonary disease, unspecified COPD type J44.9 and Thrush B37.0 [facility] [address] [id number] [address] [place] [id number] Jan, [facility] [address] [id number] [address] [place] [address] Dec, [facility] [address] [id number] [address] [place] [id number] Dec, [facility] [address] [id number] [address] [place] [address] Nov, [facility] [address] [id number] [address] [place] [address] Nov, [facility] [address] [id number] [address] [place] [id number] Nov, [facility] [address] [facility] [id number] [address] [place] [address] Nov, Chest pain, unspecified type R07.9 and COPD exacerbation J44.1 [facility] [address] [id number] [address] [place] [id number] October, [facility] [address] [facility] [id number] [address] [place] [id number] Sep, [facility] [address] [id number] [address] [place] [address] Sep, Type 2 diabetes mellitus wit h complication E11.8 ; Chronic pain syndrome G89.4 ; Bilateral low back pain without sciatica M54.5 ; Essential hypertension I10 ; Anxiety F41.9 and COPD exacerbation J44.1 [facility] [address] [facility] [id number] [address] [place] [address] Aug, [facility] [address] [facility] [id number] [address] [place] [address] Aug, [facility] [address] [facility] [id number] [address] [place] [address] Aug, Chronic pain syndrome G89.4 [facility] [address] [facility] [id number] [address] [place] [address] Aug, [facility] [id number] [place] [address] Aug, [facility] [id number] [place] [address] Jul, Chronic pain syndrome G89.4 and Anxiety F41.9 [facility] [address] [id number] [address] [place] [address] Jul, [facility] [address] [address] Jun, Bilateral low back pain with out sciatica M54.5 ; Chronic pain syndrome G89.4 ; Anxiety F41.9 ; History of long-term use of multiple prescription drugs Z92.29 ; Type 2 diabetes mellitus with complication E11.8 ; Long-term use of high-risk medication Z79.899 ; Mixed hyperlipidemia E78.2 and Essential hypertension I10 [facility] [address] [id number] [address] [place] [address] Jun, [facility] [address] [id number] [address] [place] [address] Jun, [facility] [address] [facility] [id number] [address] [place] [address] May, [facility] [address] [id number] [address] [place] [address] Apr, [facility] [address] [id number] [address] [place] [id number] Mar, [facility] [address] [id number] [address] [place] [address] Mar, Bilateral low back pain with out sciatica M54.5 ; History of long- term use of multiple prescription drugs Z92.29 ; Anxiety F41.9 ; Chronic pain syndrome G89.4 ; Type 2 diabetes mellitus with complication E11.8 ; Long-term use of high-risk medication Z79.899 and Mixed hyperlipidemia E78.2 [facility] [address] [id number] [address] [place] [address] Mar, [facility] [address] [id number] [address] [place] [address] Mar, Chronic pain syndrome G89.4 [facility] [address] [id number] [address] [place] [id number] Mar, [facility] [address] [id number] [address] [place] [address] Feb, [facility] [address] [id number] [address] [place] [address] Feb, [facility] [address] [id number] [address] [place] [address] Feb, [facility] [address] [id number] [address] [place] [phone] Feb, [facility] [address] [id number] [address] [place] [id number] Jan, [facility] [address] [facility] [id number] [address] [place] [address] Jan, [facility] [address] [id number] [address] [place] [address] Dec, [facility] [address] [id number] [address] [place] [address] Dec, Lumbago 724.2 ; Diabetes thony litus without mention of complication, type II or unspecified type, not stated as uncontrolled 250.00 ; Essential hypertension, benign 401.1 ; Anxiety state, unspecified 300.00 ; Chronic pain 338.29 ; COPD with acute exacerbation 491.21 ; Tobacco abuse 305.1 ; Depression 311 and Hyperlipidemia 272.4 [facility] [address] [id number] [address] [place] [address] Dec, [facility] [address] [facility] [id number] [address] [place] [address] Nov, Lumbago 724.2 ; Diabetes thony litus without mention of complication, type II or unspecified type, not stated as uncontrolled 250.00 ; Essential hypertension, benign 401.1 ; Anxiety state, unspecified 300.00 ; Chronic pain 338.29 ; COPD with acute exacerbation 491.21 ; Tobacco abuse 305.1 and Depression 311 [facility] [address] [id number] [address] [place] [address] Nov, [facility] [address] [id number] [address] [place] [address] Nov, [facility] [address] [id number] [address] [place] [address] Nov, [facility] [address] [id number] [address] [place] [id number] October, [facility] [address] [id number] [address] [place] [address] October, [facility] [address] [id number] [address] [place] [phone] October, [facility] [address] [id number] [address] [place] [address] October, [facility] [address] [id number] [address] [place] [address] October, [facility] [address] [id number] [address] [place] [id number] Sep, [facility] [address] [facility] [id number] [address] [place] [phone] Sep, [facility] [address] [id number] [address] [place] [address], [place] [address] 13 Sep, 2014 [facility] [address] [id number] [address] [place] [address], [place] [address] 23 Aug, 2014 [facility] [address] [id number] [address] [place] [address], [place] [address] 23 Aug, 2014 [facility] [address] [id number] [address] [place] [address], [place] [address] 20 Aug, 2014 [facility] [address] [id number] [address] [place] [address], [place] [address] 20 Aug, 2014 [facility] [address] [id number] [address] [place] [address], [place] [address] 19 Aug, 2014 [facility] [address] [id number] [address] [place] [address], [place] [address] 19 Aug, 2014 [facility] [address] [id number] [address] [place] [address], [place] [address] 16 Aug, 2014 [facility] [address] [id number] [address] [place] [address], [place] [address] 16 Aug, 2014 [facility] [address] [id number] [address] [place] [address], [place] [address] 16 Aug, 2014 [facility] [address] [id number] [address] [place] [address], [place] [address] 16 Aug, 2014 [facility] [address] [id number] [address] [place] [address], [place] [address] 13 Aug, 2014 [facility] [address] [id number] [address] [place] [address], [place] [address] 13 Aug, 2014 [facility] [address] [id number] [address] [place] [address], [place] [address] 24 Jul, 2014 [facility] [address] [id number] [address] [place] [address], [place] [address] 23 Jul, 2014 [facility] [address] [id number] [address] [place] [address], [place] [address] Jul, [facility] [address] [id number] [address] [place] [address], [place] [address] Jul, [facility] [address] [id number] [address] [place] [address], [place] [address] Jul, [facility] [address] [id number] [address] [place] [address], [place] [address] Jul, [facility] [address] [id number] [address] [place] [address], [place] [address] Jul, [facility] [address] [id number] [address] [place] [address], [place] [address] Jun, [facility] [address] [id number] [address] [place] [address], [place] [address] Jun, [facility] [address] [id number] [address] [place] [address], [place] [address] Jun, [facility] [address] [id number] [address] [place] [address], [place] [address] Jun, [facility] [address] [id number] [address] [place] [address], [place] [address] Jun, [facility] [address] [id number] [address] [place] [address], [place] [address] Jun, [facility] [address] [id number] [address] [place] [address], [place] [address] Jun, [facility] [address] [id number] [address] [place] [address], [place] [address] Jun, [facility] [address] [id number] [address] [place] [address], [place] [address] Jun, [facility] [address] [id number] [address] [place] [address], [place] [address] May, [facility] [address] [id number] [address] [place] [address], [place] [address] May, [facility] [address] [id number] [address] [place] [address], [place] [address] 30 May, 2014 [facility] [address] [id number] [address] [place] [address], [place] [address] 30 May, 2014 [facility] [address] [id number] [address] [place] [address], [place] [address] 17 May, 2014 [facility] [address] [id number] [address] [place] [address], [place] [address] 15 May, 2014 [facility] [address] [id number] [address] [place] [address], [place] [address] 15 May, 2014 [facility] [address] [id number] [address] [place] [address], [place] [address] 12 May, 2014 [facility] [address] [id number] [address] [place] [address], [place] [address] May, [facility] [address] [id number] [address] [place] [address], [place] [address] May, [facility] [address] [id number] [address] [place] [address], [place] [address] May, [facility] [address] [id number] [address] [place] [address], [place] [address] Apr, [facility] [address] [id number] [address] [place] [address], [place] [address] Apr, [facility] [address] [id number] [address] [place] [address], [place] [address] Apr, [facility] [address] [id number] [address] [place] [address], [place] [address] Apr, [facility] [address] [id number] [address] [place] [address], [place] [address] 29 Mar, 2014 [facility] [address] [id number] [address] [place] [address], [place] [address] 29 Mar, 2014 [facility] [address] [id number] [address] [place] [address], [place] [address] Mar, [facility] [address] [id number] [address] [place] [address], [place] [address] 2014 [facility] [address] [id number] [address] [place] [address], [place] [address] Mar, [facility] [address] [id number] [address] [place] [address], [place] [address] Mar, [facility] [address] [id number] [address] [place] [address], [place] [address] 29 Feb, 2014 [facility] [address] [id number] [address] [place] [address], [place] [address] 29 Feb, 2014 [facility] [address] [id number] [address] [place] [address], [place] [address] 17 Feb, 2014 [facility] [address] [id number] [address] [place] [address], [place] [address] 16 Feb, 2014 [facility] [address] [id number] [address] [place] [address], [place] [address] 16 Feb, 2014 [facility] [address] [id number] [address] [place] [address], [place] [address] Feb, [facility] [address] [id number] [address] [place] [address], [place] [address] 03 Feb, 2014 [facility] [address] [id number] [address] [place] [address], [place] [address] Jan, [facility] [address] [id number] [address] [place] [address], [place] [address] Jan, [facility] [address] [id number] [address] [place] [address], [place] [address] Jan, [facility] [address] [id number] [address] [place] [address], [place] [address] Jan, [facility] [address] [id number] [address] [place] [address], [place] [address] Dec, [facility] [address] [id number] [address] [address] Dec, [facility] [address] [facility] [id number] [address] [place] [address] Dec, [facility] [address] [facility] [id number] [address] [place] [address] Dec, IMMUNIZATIONS No Known Immunizations SOCIAL HISTORY Never Assessed REASON FOR VISIT PLAN OF CARE VITAL SIGNS MEDICATIONS Unknown Medications RESULTS No Results PROCEDURES No Known procedures INSTRUCTIONS MEDICATIONS ADMINISTERED No Known Medications MEDICAL (GENERAL) HISTORY Type Description Date Medical History hypertension Medical History type II diabetes AIC 5.4 on 09-05 Medical History hyperlipidemia Medical History anxiety Medical History depression- has taken wellbu kacie and fluoxetine for long time together Medical History chronic pain-fell and had back fx Medical History asthma Medical History chronic obstructive pulmonary disease (C OPD) Medical History gastroesophageal reflux disease (GERD) Medical History gastric ulcer Medical History 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 Medical History migraine headaches Medical History anemia Medical History difficulty reading & spelling Medical History colonic polyps Medical History Anxiety state, unspecified Medical History Depressive disorder, not elsewhere class ified Medical History Other injury of other sites of trunk Medical History Pain in joint, lower leg Surgical History EGD 2012 Surgical History colonoscopy 2012 Surgical History tonsillectomy Surgical History hysterectomy, total with nate ateral salpingo-oophorectomy (BSO) d/t 1999 Surgical History orthopedic surgery-Left foot spurs
--- OUTSIDE RECORDS SUMMARY | 2019-08-23 12:11 | XMS REPORT ---
Author Author RICOVeronica Ferrell ANGE Organization [facility] Address [address] [place] [address] Care Team Providers Care Executive Staff Assistant Name Role Phone ANGE REYNOSO Unavailable PROBLEMS Type Condition ICD9-CM Code KET57-NW Code Onset Dates Condition S tatus SNOMED Code Problem Bilateral low back pain without sciatica M54.5 Active 969466611 Problem Anxiety F41.9 Active 00711126 Problem Chronic pain syndrome G89.4 Active 238023943 Problem Thrush B37.0 Active 30483452 Problem Type 2 diabetes mellitus with complication E11.8 Active 13466020 Problem COPD with acute exacerbation J44.1 A ctive 352962068 Problem History of long-term use of multiple prescription drugs Z92.29 Active 029557093 Problem Essential hypertension I10 Active 42850655 Problem Mixed hyperlipidemia E78.2 Active 322169356 Problem Long-term use of high-risk medication Z79.899 Active 717040378 Problem Chronic obstructive pulmonary disease, unspecified COPD ty pe J44.9 Active 09575830 ALLERGIES No Information ENCOUNTERS Encounter Location Date Diagnosis [facility] [address] [id number] [place] [address] Nov, [facility] [address] [place] [id number] [address] [place] [address] October, Scabies B86 [facility] [address] [place], [place] [id number] [address] [place] [address] October, Acute upper respiratory infe ction, unspecified J06.9 [facility] [place] [address] [place] [id number] [address] [place] [address] October, Dysuria R30.0 and Coughing R 05 [facility] [address] [id number] [place] [address] Aug, [facility] [id number] [place] [address] Jun, [facility] [id number] [place] [address] Jun, [facility] [id number] [place] [address] Jun, [facility] [address] [address] May, [facility] [id number] [place] [address] May, [facility] [address] [address] May, [facility] [id number] [place] [address] Apr, Type 2 diabetes mellitus with complicati on E11.8 ; Chronic pain syndrome G89.4 ; Bilateral low back pain without sciatica M54.5 ; Essential hypertension I10 ; Anxiety F41.9 ; COPD with acute exacerbation J44.1 ; Pain of left hand M79.642 and Pain in right hand M79.641 [facility] [id number] [place] [address] Apr, [facility] [id number] [place] [address] Mar, [facility] [id number] [place] [address] Mar, [facility] [id number] [place] [address] Mar, [facility] [address] [address] 08 Feb, 2016 [facility] [address] [address] Feb, [facility] [address] [address] Jan, Type 2 diabetes mellitus with complicati on E11.8 ; Chronic pain syndrome G89.4 ; Bilateral low back pain without sciatica M54.5 ; Essential hypertension I10 ; Anxiety F41.9 ; Chronic obstructive pulmonary disease, unspecified COPD type J44.9 and Thrush B37.0 [facility] [address] [address] Jan, [facility] [id number] [place] [address] Dec, [facility] [address] [address] Dec, [facility] [address] [address] Nov, [facility] [address] [address] Nov, [facility] [address] [address] Nov, [facility] [address] [address] Nov, Chest pain, unspecified type R07.9 and C OPD exacerbation J44.1 [facility] [address] [address] October, [facility] [address] [address] Sep, [facility] [address] [address] Sep, Type 2 diabetes mellitus with complicati on E11.8 ; Chronic pain syndrome G89.4 ; Bilateral low back pain without sciatica M54.5 ; Essential hypertension I10 ; Anxiety F41.9 and COPD exacerbation J44.1 [facility] [address] [address] Aug, [facility] [address] [address] Aug, [facility] [address] [address] Aug, Chronic pain syndrome G89.4 [facility] [address] [address] Aug, [facility] [address] [address] Aug, [facility] [address] [address] Jul, Chronic pain syndrome G89.4 and Anxiety F41.9 [facility] [address] [address] Jul, [facility] [address] [address] Jun, Bilateral low back pain without sciatica M54.5 ; Chronic pain syndrome G89.4 ; Anxiety F41.9 ; History of long-term use of multiple prescription drugs Z92.29 ; Type 2 diabetes mellitus with complication E11.8 ; Long-term use of high-risk medication Z79.899 ; Mixed hyperlipidemia E78.2 and Essential hypertension I10 [facility] [address] [address] Jun, [facility] [address] [address] Jun, [facility] [address] [address] May, [facility] [address] [address] Apr, [facility] [address] [address] Mar, [facility] [address] [address] Mar, Bilateral low back pain without sciatica M54.5 ; History of long-term use of multiple prescription drugs Z92.29 ; Anxiety F41.9 ; Chronic pain syndrome G89.4 ; Type 2 diabetes mellitus with complication E11.8 ; Long-term use of high-risk medication Z79.899 and Mixed hyperlipidemia E78.2 [facility] [address] [address] Mar, [facility] [address] [address] Mar, Chronic pain syndrome G89.4 [facility] [address] [address] Mar, [facility] [address] [address] Feb, [facility] [address] [address] Feb, [facility] [address] [address] Feb, [facility] [address] [address] Feb, [facility] [address] [address] Jan, [facility] [address] [address] Jan, [facility] [address] [address] Dec, [facility] [address] [address] Dec, Lumbago 724.2 ; Diabetes mellitus withou t mention of complication, type II or unspecified type, not stated as uncontrolled 250.00 ; Essential hypertension, benign 401.1 ; Anxiety state, unspecified 300.00 ; Chronic pain 338.29 ; COPD with acute exacerbation 491.21 ; Tobacco abuse 305.1 ; Depression 311 and Hyperlipidemia 272.4 [facility] [address] [address] Dec, [facility] [address] [address] Nov, Lumbago 724.2 ; Diabetes mellitus withou t mention of complication, type II or unspecified type, not stated as uncontrolled 250.00 ; Essential hypertension, benign 401.1 ; Anxiety state, unspecified 300.00 ; Chronic pain 338.29 ; COPD with acute exacerbation 491.21 ; Tobacco abuse 305.1 and Depression 311 [facility] [id number] [place] [address] Nov, [facility] [id number] [place] [address] Nov, [facility] [id number] [place] [address] Nov, [facility] [address] [address] October, [facility] [id number] [place] [address] October, [facility] [id number] [place] [address] October, [facility] [id number] [place] [address] October, [facility] [id number] [place] [address] October, [facility] [id number] [place] [address] Sep, [facility] [id number] [place] [address] Sep, [facility] [id number] [place] [address] Sep, [facility] [id number] [place] [address] Aug, [facility] [id number] [place] [address] Aug, [facility] [id number] [place] [address] Aug, [facility] [address] [place] [address] 20 Aug, 2014 [facility] [address] [facility] [id number] [facility] [place] [address] 19 Aug, 2014 [facility] [address] [facility] [id number] [place] [address] 19 Aug, 2014 [facility] [address] [id number] [place] [address] 16 Aug, 2014 [facility] [address] [facility] [id number] [place] [address] 16 Aug, 2014 [facility] [address] [facility] [id number] [place] [address] 16 Aug, 2014 [facility] [address] [id number] [place] [address] 16 Aug, 2014 [facility] [address] [id number] [place] [address] 13 Aug, 2014 [facility] [address] [id number] [place] [address] Aug, [facility] [address] [facility] [id number] [place] [address] 24 Jul, 2014 [facility] [address] [id number] [place] [address] Jul, 2014 [facility] [address] [id number] [place] [address] 23 Jul, 2014 [facility] [address] [id number] [place] [address] 13 Jul, 2014 [facility] [address] [facility] [id number] [place] [address] 13 Jul, 2014 [facility] [address] [id number] [place] [address] 10 Jul, 2014 [facility] [address] [facility] [id number] [place] [address] 10 Jul, 2014 [facility] [address] [id number] [place] [address] Jun, [facility] [address] [id number] [place] [address] Jun, [facility] [address] [id number] [place] [address] Jun, [facility] [address] [id number] [place] [address] Jun, [facility] [address] [id number] [place] [address] Jun, [facility] [address] [id number] [place] [address] Jun, [facility] [address] [id number] [place] [address] Jun, [facility] [address] [id number] [place] [address] Jun, [facility] [address] [id number] [place] [address] Jun, [facility] [address] [id number] [place] [address] May, [facility] [address] [id number] [place] [address] May, [facility] [address] [id number] [place] [address] May, [facility] [address] [id number] [place] [address] 30 May, 2014 [facility] [address] [id number] [place] [address] 17 May, 2014 [facility] [address] [id number] [place] [address] 15 May, 2014 [facility] [address] [id number] [place] [address] 15 May, 2014 [facility] [address] [id number] [place] [address] 12 May, 2014 [facility] [address] [id number] [place] [address] May, [facility] [address] [facility] [id number] [place] [address] May, [facility] [address] [id number] [place] [address] May, [facility] [address] [id number] [place] [address] Apr, [facility] [address] [id number] [place] [address] Apr, [facility] [address] [id number] [place] [address] Apr, [facility] [address] [id number] [place] [address] Apr, [facility] [address] [id number] [place] [address] Mar, [facility] [address] [id number] [place] [address] Mar, [facility] [address] [id number] [place] [address] Mar, [facility] [address] [id number] [place] [address] 2014 [facility] [address] [id number] [place] [address] 08 Mar, 2014 [facility] [address] [id number] [place] [address] 08 Mar, 2014 [facility] [address] [id number] [place] [address] 29 Feb, 2014 [facility] [address] [id number] [place] [address] 29 Feb, 2013 [facility] [address] [id number] [place] [address] 17 Sep, 2013 [facility] [address] [id number] [place] [address] 16 Sep, 2013 [facility] [id number] [place] [address] 16 Feb, 2014 [facility] [id number] [place] [address] Feb, [facility] [id number] [place] [address] Feb, [facility] [id number] [place] [address] Jan, [facility] [address] [address] Jan, [facility] [address] [address] Jan, [facility] [address] [address] Jan, [facility] [id number] [place] [address] Dec, [facility] [id number] [place] [address] Dec, [facility] [id number] [place] [address] Dec, [facility] [id number] [place] [address] Dec, IMMUNIZATIONS No Known Immunizations SOCIAL HISTORY Never Assessed REASON FOR VISIT PLAN OF CARE VITAL SIGNS Height 67.5 in 2014-01-12 Weight 208.8 lbs 2014-01-12 Temperature 97.9 degrees Fahrenheit 2014-01-12 Heart Rate 96 bpm 2014-01-12 Respiratory Rate 20 2014-01-12 Blood pressure systolic 120 mmHg 2014-01-12 Blood pressure diastolic 86 mmHg 2014-01-12 MEDICATIONS Unknown Medications RESULTS No Results PROCEDURES Procedure Date Ordered Result Body Site COMPLETE CBC W/AUTO DIFF WBC January 12, 2014 ASSAY THYROID STIM HORMONE January 12, 2014 GLYCATED HEMOGLOBIN TEST January 12, 2014 MICROALBUMIN, SEMIQUANT January 12, 2014 LIPID PANEL January 12, 2014 COMPREHEN METABOLIC PANEL January 12, 2014 VISIT January 12, 2014 VENIPUNCT, ROUTINE* January 12, 2014 INSTRUCTIONS MEDICATIONS ADMINISTERED No Known Medications MEDICAL [...]
--- OUTSIDE RECORDS SUMMARY | 2019-08-23 12:11 | XMS REPORT ---
Author Author RICOVeronica Ferrell ANGE Organization [facility] Address [address] [place] [address] Care Team Providers Care Lithographed Plate Inspector Name Role Phone ANGE REYNOSO Unavailable PROBLEMS Type Condition ICD9-CM Code [id number] Code Onset Dates Condition S tatus SNOMED Code Problem Bilateral low back pain without sciatica M54.5 Active 579131536 Problem Anxiety F41.9 Active 78158658 Problem Chronic pain syndrome G89.4 Active 378953159 Problem Thrush B37.0 Active 25509294 Problem Type 2 diabetes mellitus with complication E11.8 Active 89211927 Problem COPD with acute exacerbation J44.1 A ctive 069156406 Problem History of long-term use of multiple prescription drugs Z92.29 Active 985154516 Problem Essential hypertension I10 Active 49750287 Problem Mixed hyperlipidemia E78.2 Active 180110696 Problem Long-term use of high-risk medication Z79.899 Active 685750327 Problem Chronic obstructive pulmonary disease, unspecified COPD ty pe J44.9 Active 68580417 ALLERGIES No Information ENCOUNTERS Encounter Location Date Diagnosis [facility] [address] [id number] [address] [place] [phone] Nov, [facility] [address] [id number] [address] [place] [phone] October, Scabies B86 [facility] [address] [id number] [address] [place] [phone] October, Acute upper respiratory infe ction, unspecified J06.9 [facility] [address] [id number] [address] [place] [phone] October, Dysuria R30.0 and Coughing R 05 [facility] [id number] [place] [phone] Aug, [facility] [address] [id number] [address] [place] [id number] Jun, [facility] [address] [id number] [address] [place] [phone] Jun, [facility] [address] [id number] [address] [place] [phone] Jun, [facility] [address] [id number] [address] [place] [phone] May, [facility] [address] [id number] [address] [place] [phone] May, [facility] [address] [facility] [id number] [address] [place] [phone] May, [facility] [address] [facility] [id number] [address] [place] [phone] Apr, Type 2 diabetes mellitus wit h complication E11.8 ; Chronic pain syndrome G89.4 ; Bilateral low back pain without sciatica M54.5 ; Essential hypertension I10 ; Anxiety F41.9 ; COPD with acute exacerbation J44.1 ; Pain of left hand M79.642 and Pain in right hand M79.641 [facility] [address] [id number] [address] [place] [phone] Apr, [facility] [address] [id number] [address] [place] [phone] Mar, [facility] [address] [id number] [address] [place] [phone] Mar, [facility] [address] [id number] [address] [place] [phone] Mar, [facility] [address] [facility] [id number] [address] [place] [id number] Feb, [facility] [address] [facility] [id number] [address] [place] [id number] Feb, [facility] [address] [id number] [address] [place] [id number] Jan, Type 2 diabetes mellitus wit h complication E11.8 ; Chronic pain syndrome G89.4 ; Bilateral low back pain without sciatica M54.5 ; Essential hypertension I10 ; Anxiety F41.9 ; Chronic obstructive pulmonary disease, unspecified COPD type J44.9 and Thrush B37.0 [facility] [address] [id number] [address] [place] [phone] Jan, [facility] [address] [id number] [address] [place] [id number] Dec, [facility] [address] [id number] [address] [place] [phone] Dec, [facility] [address] [id number] [address] [place] [phone] Nov, [facility] [address] [id number] [address] [place] [phone] Nov, [facility] [address] [id number] [address] [place] [id number] Nov, [facility] [address] [facility] [id number] [address] [place] [phone] Nov, Chest pain, unspecified type R07.9 and COPD exacerbation J44.1 [facility] [address] [id number] [address] [place] [phone] October, [facility] [address] [facility] [id number] [address] [place] [phone] Sep, [facility] [address] [id number] [address] [place] [phone] Sep, Type 2 diabetes mellitus wit h complication E11.8 ; Chronic pain syndrome G89.4 ; Bilateral low back pain without sciatica M54.5 ; Essential hypertension I10 ; Anxiety F41.9 and COPD exacerbation J44.1 [facility] [address] [facility] [id number] [address] [place] [phone] Aug, [facility] [address] [facility] [id number] [address] [place] [phone] Aug, [facility] [address] [facility] [id number] [address] [place] [id number] Aug, Chronic pain syndrome G89.4 [facility] [address] [facility] [id number] [address] [place] [phone] Aug, [facility] [id number] [place] [phone] Aug, [facility] [id number] [place] [phone] Jul, Chronic pain syndrome G89.4 and Anxiety F41.9 [facility] [address] [id number] [address] [place] [phone] Jul, [facility] [address] [phone] Jun, Bilateral low back pain with out sciatica M54.5 ; Chronic pain syndrome G89.4 ; Anxiety F41.9 ; History of long-term use of multiple prescription drugs Z92.29 ; Type 2 diabetes mellitus with complication E11.8 ; Long-term use of high-risk medication Z79.899 ; Mixed hyperlipidemia E78.2 and Essential hypertension I10 [facility] [address] [id number] [address] [place] [phone] Jun, [facility] [address] [id number] [address] [place] [phone] Jun, [facility] [address] [facility] [id number] [address] [place] [phone] May, [facility] [address] [id number] [address] [place] [phone] Apr, [facility] [address] [id number] [address] [place] [phone] Mar, [facility] [address] [id number] [address] [place] [phone] Mar, Bilateral low back pain with out sciatica M54.5 ; History of long- term use of multiple prescription drugs Z92.29 ; Anxiety F41.9 ; Chronic pain syndrome G89.4 ; Type 2 diabetes mellitus with complication E11.8 ; Long-term use of high-risk medication Z79.899 and Mixed hyperlipidemia E78.2 [facility] [address] [id number] [address] [place] [phone] Mar, [facility] [address] [id number] [address] [place] [id number] Mar, Chronic pain syndrome G89.4 [facility] [address] [id number] [address] [place] [phone] Mar, [facility] [address] [id number] [address] [place] [id number] Feb, [facility] [address] [id number] [address] [place] [phone] Feb, [facility] [address] [id number] [address] [place] [phone] Feb, [facility] [address] [id number] [address] [place] [id number] Feb, [facility] [address] [id number] [address] [place] [id number] Jan, [facility] [address] [facility] [id number] [address] [place] [phone] Jan, [facility] [address] [id number] [address] [place] [id number] Dec, [facility] [address] [id number] [address] [place] [id number] Dec, Lumbago 724.2 ; Diabetes thony litus without mention of complication, type II or unspecified type, not stated as uncontrolled 250.00 ; Essential hypertension, benign 401.1 ; Anxiety state, unspecified 300.00 ; Chronic pain 338.29 ; COPD with acute exacerbation 491.21 ; Tobacco abuse 305.1 ; Depression 311 and Hyperlipidemia 272.4 [facility] [address] [id number] [address] [place] [phone] Dec, [facility] [address] [facility] [id number] [address] [place] [phone] Nov, Lumbago 724.2 ; Diabetes thony litus without mention of complication, type II or unspecified type, not stated as uncontrolled 250.00 ; Essential hypertension, benign 401.1 ; Anxiety state, unspecified 300.00 ; Chronic pain 338.29 ; COPD with acute exacerbation 491.21 ; Tobacco abuse 305.1 and Depression 311 [facility] [address] [id number] [address] [place] [phone] Nov, [facility] [address] [id number] [address] [place] [phone] Nov, [facility] [address] [id number] [address] [place] [phone] Nov, [facility] [address] [id number] [address] [place] [id number] October, [facility] [address] [id number] [address] [place] [phone] October, [facility] [address] [id number] [address] [place] [phone] October, [facility] [address] [id number] [address] [place] [phone] October, [facility] [address] [id number] [address] [place] [phone] October, [facility] [address] [id number] [address] [place] [phone] Sep, [facility] [address] [facility] [id number] [address] [place] [phone] Sep, [facility] [address] [id number] [address] [place] [address], [place] [id number] 13 Sep, 2014 [facility] [address] [id number] [address] [place] [address], [place] [id number] 23 Aug, 2014 [facility] [address] [id number] [address] [place] [address], [place] [id number] 23 Aug, 2014 [facility] [address] [id number] [address] [place] [address], [place] [address] 20 Aug, 2014 [facility] [address] [id number] [address] [place] [address], [place] [id number] 20 Aug, 2014 [facility] [address] [id number] [address] [place] [address], [place] [address] 19 Aug, 2014 [facility] [address] [id number] [address] [place] [address], [place] [id number] 19 Aug, 2014 [facility] [address] [id number] [address] [place] [address], [place] [id number] 16 Aug, 2014 [facility] [address] [id number] [address] [place] [address], [place] [id number] 16 Aug, 2014 [facility] [address] [id number] [address] [place] [address], [place] [address] 16 Aug, 2014 [facility] [address] [id number] [address] [place] [address], [place] [address] 16 Aug, 2014 [facility] [address] [id number] [address] [place] [address], [place] [address] 13 Aug, 2014 [facility] [address] [id number] [address] [place] [address], [place] [address] 13 Aug, 2014 [facility] [address] [id number] [address] [place] [address], [place] [address] 24 Jul, 2014 [facility] [address] [id number] [address] [place] [address], [place] [id number] 23 Jul, 2014 [facility] [address] [id number] [address] [place] [address], [place] [id number] Jul, [facility] [address] [id number] [address] [place] [address], [place] [id number] Jul, [facility] [address] [id number] [address] [place] [address], [place] [id number] Jul, [facility] [address] [id number] [address] [place] [address], [place] [id number] Jul, [facility] [address] [id number] [address] [place] [address], [place] [id number] Jul, [facility] [address] [id number] [address] [place] [address], [place] [id number] Jun, [facility] [address] [id number] [address] [place] [address], [place] [address] Jun, [facility] [address] [id number] [address] [place] [address], [place] [address] Jun, [facility] [address] [id number] [address] [place] [address], [place] [id number] Jun, [facility] [address] [id number] [address] [place] [address], [place] [id number] Jun, [facility] [address] [id number] [address] [place] [address], [place] [address] Jun, [facility] [address] [id number] [address] [place] [address], [place] [address] Jun, [facility] [address] [id number] [address] [place] [address], [place] [address] Jun, [facility] [address] [id number] [address] [place] [address], [place] [address] Jun, [facility] [address] [id number] [address] [place] [address], [place] [address] May, [facility] [address] [id number] [address] [place] [address], [place] [address] May, [facility] [address] [id number] [address] [place] [address], [place] [id number] 30 May, 2014 [facility] [address] [id number] [address] [place] [address], [place] [address] 30 May, 2014 [facility] [address] [id number] [address] [place] [address], [place] [address] 17 May, 2014 [facility] [address] [id number] [address] [place] [address], [place] [address] 15 May, 2014 [facility] [address] [id number] [address] [place] [address], [place] [address] 15 May, 2014 [facility] [address] [id number] [address] [place] [address], [place] [address] 12 May, 2014 [facility] [address] [id number] [address] [place] [address], [place] [address] May, [facility] [address] [id number] [address] [place] [address], [place] [address] May, [facility] [address] [id number] [address] [place] [address], [place] [address] May, [facility] [address] [id number] [address] [place] [address], [place] [address] Apr, [facility] [address] [id number] [address] [place] [address], [place] [id number] Apr, [facility] [address] [id number] [address] [place] [address], [place] [address] Apr, [facility] [address] [id number] [address] [place] [address], [place] [address] Apr, [facility] [address] [id number] [address] [place] [address], [place] [address] 29 Mar, 2014 [facility] [address] [id number] [address] [place] [address], [place] [address] 29 Mar, 2014 [facility] [address] [id number] [address] [place] [address], [place] [address] Mar, [facility] [address] [id number] [address] [place] [address], [place] [address] 2014 [facility] [address] [id number] [address] [place] [address], [place] [address] Mar, [facility] [address] [id number] [address] [place] [address], [place] [address] Mar, [facility] [address] [id number] [address] [place] [address], [place] [address] 29 Feb, 2014 [facility] [address] [id number] [address] [place] [address], [place] [address] 29 Feb, 2014 [facility] [address] [id number] [address] [place] [address], [place] [address] 17 Feb, 2014 [facility] [address] [id number] [address] [place] [address], [place] [address] 16 Feb, 2014 [facility] [address] [id number] [address] [place] [address], [place] [address] 16 Feb, 2014 [facility] [address] [id number] [address] [place] [address], [place] [address] Feb, [facility] [address] [id number] [address] [place] [address], [place] [address] 03 Feb, 2014 [facility] [address] [id number] [address] [place] [address], [place] [address] Jan, [facility] [address] [id number] [address] [place] [address], [place] [address] Jan, [facility] [address] [id number] [address] [place] [address], [place] [address] Jan, [facility] [address] [id number] [address] [place] [address], [place] [address] Jan, [facility] [address] [id number] [address] [place] [address], [place] [address] Dec, [facility] [address] [id number] [address] [address] Dec, [facility] [address] [facility] [id number] [address] [place] [id number] Dec, [facility] [address] [facility] [id number] [address] [place] [id number] Dec, IMMUNIZATIONS No Known Immunizations SOCIAL HISTORY Never Assessed REASON FOR VISIT PLAN OF CARE VITAL SIGNS Height 68 in 2014-08-06 Weight 212.4 lbs 2014-08-06 Temperature 97.1 degrees Fahrenheit 2014-08-06 Heart Rate 72 bpm 2014-08-06 Respiratory Rate 20 2014-08-06 Blood pressure systolic 134 mmHg 2014-08-06 Blood pressure diastolic 76 mmHg 2014-08-06 MEDICATIONS Unknown Medications RESULTS No Results PROCEDURES [...] total with nate ateral salpingo-oophorectomy (BSO) d/t DUB 1999 Surgical History orthopedic surgery-Left foot spurs
--- OUTSIDE RECORDS SUMMARY | 2019-08-23 12:11 | XMS REPORT ---
Author Author RICOVeronica Ferrell ANGE Organization [facility] Address [address] [place] [address] Care Team Providers Care Credit Administration Specialist Name Role Phone ANGE REYNOSO Unavailable PROBLEMS Type Condition ICD9-CM Code SHF74-CK Code Onset Dates Condition S tatus SNOMED Code Problem Bilateral low back pain without sciatica M54.5 Active 117494597 Problem Anxiety F41.9 Active 96291199 Problem Chronic pain syndrome G89.4 Active 560991388 Problem Thrush B37.0 Active 26924028 Problem Type 2 diabetes mellitus with complication E11.8 Active 23471390 Problem COPD with acute exacerbation J44.1 A ctive 485352902 Problem History of long-term use of multiple prescription drugs Z92.29 Active 221456371 Problem Essential hypertension I10 Active 39281172 Problem Mixed hyperlipidemia E78.2 Active 644043125 Problem Long-term use of high-risk medication Z79.899 Active 026380170 Problem Chronic obstructive pulmonary disease, unspecified COPD ty pe J44.9 Active [id number] ALLERGIES No Information ENCOUNTERS Encounter Location Date Diagnosis [facility] [address] [id number] [address] [place] [address] Nov, [facility] [address] [id number] [address] [place] [phone] October, Scabies B86 [facility] [address] [id number] [address] [place] [address] October, Acute upper respiratory infe ction, unspecified J06.9 [facility] [address] [id number] [address] [place] [address] October, Dysuria R30.0 and Coughing R 05 [facility] [id number] [place] [address] Aug, [facility] [address] [id number] [address] [place] [address] Jun, [facility] [address] [id number] [address] [place] [address] Jun, [facility] [address] [id number] [address] [place] [address] Jun, [facility] [address] [id number] [address] [place] [address] May, [facility] [address] [id number] [address] [place] [address] May, [facility] [address] [facility] [id number] [address] [place] [address] May, [facility] [address] [facility] [id number] [address] [place] [address] Apr, Type 2 diabetes mellitus wit h complication E11.8 ; Chronic pain syndrome G89.4 ; Bilateral low back pain without sciatica M54.5 ; Essential hypertension I10 ; Anxiety F41.9 ; COPD with acute exacerbation J44.1 ; Pain of left hand M79.642 and Pain in right hand M79.641 [facility] [address] [id number] [address] [place] [address] Apr, [facility] [address] [id number] [address] [place] [address] Mar, [facility] [address] [id number] [address] [place] [address] Mar, [facility] [address] [id number] [address] [place] [address] Mar, [facility] [address] [facility] [id number] [address] [place] [address] Feb, [facility] [address] [facility] [id number] [address] [place] [address] Feb, [facility] [address] [id number] [address] [place] [address] Jan, Type 2 diabetes mellitus wit h complication E11.8 ; Chronic pain syndrome G89.4 ; Bilateral low back pain without sciatica M54.5 ; Essential hypertension I10 ; Anxiety F41.9 ; Chronic obstructive pulmonary disease, unspecified COPD type J44.9 and Thrush B37.0 [facility] [address] [id number] [address] [place] [phone] Jan, [facility] [address] [id number] [address] [place] [address] Dec, [facility] [address] [id number] [address] [place] [address] Dec, [facility] [address] [id number] [address] [place] [address] Nov, [facility] [address] [id number] [address] [place] [address] Nov, [facility] [address] [id number] [address] [place] [address] Nov, [facility] [address] [facility] [id number] [address] [place] [address] Nov, Chest pain, unspecified type R07.9 and COPD exacerbation J44.1 [facility] [address] [id number] [address] [place] [address] October, [facility] [address] [facility] [id number] [address] [place] [address] Sep, [facility] [address] [id number] [address] [place] [address] Sep, Type 2 diabetes mellitus wit h complication E11.8 ; Chronic pain syndrome G89.4 ; Bilateral low back pain without sciatica M54.5 ; Essential hypertension I10 ; Anxiety F41.9 and COPD exacerbation J44.1 [facility] [address] [facility] [id number] [address] [place] [address] Aug, [facility] [address] [facility] [id number] [address] [place] [address] Aug, [facility] [address] [facility] [id number] [address] [place] [address] Aug, Chronic pain syndrome G89.4 [facility] [address] [facility] [id number] [address] [place] [address] Aug, [facility] [id number] [place] [address] Aug, [facility] [id number] [place] [address] Jul, Chronic pain syndrome G89.4 and Anxiety F41.9 [facility] [address] [id number] [address] [place] [address] Jul, [facility] [address] [address] Jun, Bilateral low back pain with out sciatica M54.5 ; Chronic pain syndrome G89.4 ; Anxiety F41.9 ; History of long-term use of multiple prescription drugs Z92.29 ; Type 2 diabetes mellitus with complication E11.8 ; Long-term use of high-risk medication Z79.899 ; Mixed hyperlipidemia E78.2 and Essential hypertension I10 [facility] [address] [id number] [address] [place] [address] Jun, [facility] [address] [id number] [address] [place] [address] Jun, [facility] [address] [facility] [id number] [address] [place] [address] May, [facility] [address] [id number] [address] [place] [address] Apr, [facility] [address] [id number] [address] [place] [address] Mar, [facility] [address] [id number] [address] [place] [address] Mar, Bilateral low back pain with out sciatica M54.5 ; History of long- term use of multiple prescription drugs Z92.29 ; Anxiety F41.9 ; Chronic pain syndrome G89.4 ; Type 2 diabetes mellitus with complication E11.8 ; Long-term use of high-risk medication Z79.899 and Mixed hyperlipidemia E78.2 [facility] [address] [id number] [address] [place] [address] Mar, [facility] [address] [id number] [address] [place] [address] Mar, Chronic pain syndrome G89.4 [facility] [id number] [address] [place] [address] Mar, [facility] [address] [id number] [address] [place] [address] Feb, [facility] [address] [id number] [address] [place] [address] Feb, [facility] [address] [id number] [address] [place] [address] Feb, [facility] [address] [id number] [address] [place] [address] Feb, [facility] [address] [id number] [address] [place] [address] Jan, [facility] [address] [facility] [id number] [address] [place] [address] Jan, [facility] [address] [id number] [address] [place] [address] Dec, [facility] [address] [id number] [address] [place] [address] Dec, Lumbago 724.2 ; Diabetes thony litus without mention of complication, type II or unspecified type, not stated as uncontrolled 250.00 ; Essential hypertension, benign 401.1 ; Anxiety state, unspecified 300.00 ; Chronic pain 338.29 ; COPD with acute exacerbation 491.21 ; Tobacco abuse 305.1 ; Depression 311 and Hyperlipidemia 272.4 [facility] [address] [id number] [address] [place] [address] Dec, [facility] [address] [facility] [id number] [address] [place] [address] Nov, Lumbago 724.2 ; Diabetes thony litus without mention of complication, type II or unspecified type, not stated as uncontrolled 250.00 ; Essential hypertension, benign 401.1 ; Anxiety state, unspecified 300.00 ; Chronic pain 338.29 ; COPD with acute exacerbation 491.21 ; Tobacco abuse 305.1 and Depression 311 [facility] [address] [id number] [address] [place] [address] Nov, [facility] [address] [id number] [address] [place] [address] Nov, [facility] [address] [id number] [address] [place] [address] Nov, [facility] [address] [id number] [address] [place] [address] October, [facility] [address] [id number] [address] [place] [address] October, [facility] [address] [id number] [address] [place] [address] October, [facility] [address] [id number] [address] [place] [address] October, [facility] [address] [id number] [address] [place] [address] October, [facility] [address] [id number] [address] [place] [address] Sep, [facility] [address] [facility] [id number] [address] [place] [address] Sep, [facility] [address] [id number] [address] [place] [address], [place] [address] 13 Sep, 2014 [facility] [address] [id number] [address] [place] [address], [place] [address] 23 Aug, 2014 [facility] [address] [id number] [address] [place] [address], [place] [address] 23 Aug, 2014 [facility] [address] [id number] [address] [place] [address], [place] [address] 20 Aug, 2014 [facility] [address] [id number] [address] [place] [address], [place] [address] 20 Aug, 2014 [facility] [address] [id number] [address] [place] [address], [place] [address] 19 Aug, 2014 [facility] [address] [id number] [address] [place] [address], [place] [address] 19 Aug, 2014 [facility] [address] [id number] [address] [place] [address], [place] [address] 16 Aug, 2014 [facility] [address] [id number] [address] [place] [address], [place] [address] 16 Aug, 2014 [facility] [address] [id number] [address] [place] [address], [place] [address] 16 Aug, 2014 [facility] [address] [id number] [address] [place] [address], [place] [address] 16 Aug, 2014 [facility] [address] [id number] [address] [place] [address], [place] [address] 13 Aug, 2014 [facility] [address] [id number] [address] [place] [address], [place] [address] 13 Aug, 2014 [facility] [address] [id number] [address] [place] [address], [place] [address] 24 Jul, 2014 [facility] [address] [id number] [address] [place] [address], [place] [address] 23 Jul, 2014 [facility] [address] [id number] [address] [place] [address], [place] [address] Jul, [facility] [address] [id number] [address] [place] [address], [place] [address] Jul, [facility] [address] [id number] [address] [place] [address], [place] [address] Jul, [facility] [address] [id number] [address] [place] [address], [place] [address] Jul, [facility] [address] [id number] [address] [place] [address], [place] [address] Jul, [facility] [address] [id number] [address] [place] [address], [place] [address] Jun, [facility] [address] [id number] [address] [place] [address], [place] [address] Jun, [facility] [address] [id number] [address] [place] [address], [place] [address] Jun, [facility] [address] [id number] [address] [place] [address], [place] [address] Jun, [facility] [address] [id number] [address] [place] [address], [place] [address] Jun, [facility] [address] [id number] [address] [place] [address], [place] [address] Jun, [facility] [address] [id number] [address] [place] [address], [place] [address] Jun, [facility] [address] [id number] [address] [place] [address], [place] [address] Jun, [facility] [address] [id number] [address] [place] [address], [place] [address] Jun, [facility] [address] [id number] [address] [place] [address], [place] [address] May, [facility] [address] [id number] [address] [place] [address], [place] [address] May, [facility] [address] [id number] [address] [place] [address], [place] [address] 30 May, 2014 [facility] [address] [id number] [address] [place] [address], [place] [address] 30 May, 2014 [facility] [address] [id number] [address] [place] [address], [place] [address] 17 May, 2014 [facility] [address] [id number] [address] [place] [address], [place] [address] 15 May, 2014 [facility] [address] [id number] [address] [place] [address], [place] [address] 15 May, 2014 [facility] [address] [id number] [address] [place] [address], [place] [address] 12 May, 2014 [facility] [address] [id number] [address] [place] [address], [place] [address] May, [facility] [address] [id number] [address] [place] [address], [place] [address] May, [facility] [address] [id number] [address] [place] [address], [place] [address] May, [facility] [address] [id number] [address] [place] [address], [place] [address] Apr, [facility] [address] [id number] [address] [place] [address], [place] [address] Apr, [facility] [address] [id number] [address] [place] [address], [place] [address] Apr, [facility] [address] [id number] [address] [place] [address], [place] [address] Apr, [facility] [address] [id number] [address] [place] [address], [place] [address] 29 Mar, 2014 [facility] [address] [id number] [address] [place] [address], [place] [address] 29 Mar, 2014 [facility] [address] [id number] [address] [place] [address], [place] [address] Mar, [facility] [address] [id number] [address] [place] [address], [place] [address] 2014 [facility] [address] [id number] [address] [place] [address], [place] [address] Mar, [facility] [address] [id number] [address] [place] [address], [place] [address] Mar, [facility] [address] [id number] [address] [place] [address], [place] [address] 29 Feb, 2014 [facility] [address] [id number] [address] [place] [address], [place] [address] 29 Feb, 2014 [facility] [address] [id number] [address] [place] [address], [place] [address] 17 Feb, 2014 [facility] [address] [id number] [address] [place] [address], [place] [address] 16 Feb, 2014 [facility] [address] [id number] [address] [place] [address], [place] [address] 16 Feb, 2014 [facility] [address] [id number] [address] [place] [address], [place] [address] Feb, [facility] [address] [id number] [address] [place] [address], [place] [address] 03 Feb, 2014 [facility] [address] [id number] [address] [place] [address], [place] [address] Jan, [facility] [address] [id number] [address] [place] [address], [place] [address] Jan, [facility] [address] [id number] [address] [place] [address], [place] [address] Jan, [facility] [address] [id number] [address] [place] [address], [place] [address] Jan, [facility] [address] [id number] [address] [place] [address], [place] [address] Dec, [facility] [address] [id number] [address] [place] [address] Dec, [facility] [address] [facility] [id number] [address] [place] [address] Dec, [facility] [address] [facility] [id number] [address] [place] [address] Dec, IMMUNIZATIONS No Known Immunizations SOCIAL HISTORY [...]
--- OUTSIDE RECORDS SUMMARY | 2019-08-23 12:11 | XMS REPORT ---
Author Author RICOVeronica Ferrell ANGE Organization [facility] Address [address] [place] [address] Care Team Providers Care Information Security Architect Name Role Phone NAGE REYNOSO Unavailable PROBLEMS Type Condition ICD9-CM Code UTD48-AX Code Onset Dates Condition S tatus SNOMED Code Problem Bilateral low back pain without sciatica M54.5 Active 672849980 Problem Anxiety F41.9 Active 75074603 Problem Chronic pain syndrome G89.4 Active 329931658 Problem Thrush B37.0 Active 69527727 Problem Type 2 diabetes mellitus with complication E11.8 Active 20171212 Problem COPD with acute exacerbation J44.1 A ctive 775999113 Problem History of long-term use of multiple prescription drugs Z92.29 Active 208514129 Problem Essential hypertension I10 Active 33548590 Problem Mixed hyperlipidemia E78.2 Active 924589999 Problem Long-term use of high-risk medication Z79.899 Active 454867913 Problem Chronic obstructive pulmonary disease, unspecified COPD ty pe J44.9 Active 24794508 ALLERGIES No Information ENCOUNTERS Encounter Location Date Diagnosis [facility] [address] [id number] [address] [place] [address] Nov, [facility] [address] [id number] [address] [place] [address] October, Scabies B86 [facility] [address] [id number] [address] [place] [phone] October, Acute upper respiratory infe ction, unspecified J06.9 [facility] [address] [id number] [address] [place] [address] October, Dysuria R30.0 and Coughing R 05 [facility] [id number] [place] [address] Aug, [facility] [address] [id number] [address] [place] [address] Jun, [facility] [address] [id number] [address] [place] [address] Jun, [facility] [address] [id number] [address] [place] [address] Jun, [facility] [address] [id number] [address] [place] [address] May, [facility] [address] [id number] [address] [place] [address] May, [facility] [address] [facility] [id number] [address] [place] [address] May, [facility] [address] [facility] [id number] [address] [place] [address] Apr, Type 2 diabetes mellitus wit h complication E11.8 ; Chronic pain syndrome G89.4 ; Bilateral low back pain without sciatica M54.5 ; Essential hypertension I10 ; Anxiety F41.9 ; COPD with acute exacerbation J44.1 ; Pain of left hand M79.642 and Pain in right hand M79.641 [facility] [address] [id number] [address] [place] [address] Apr, [facility] [address] [id number] [address] [place] [address] Mar, [facility] [address] [id number] [address] [place] [address] Mar, [facility] [address] [id number] [address] [place] [address] Mar, [facility] [address] [facility] [id number] [address] [place] [address] Feb, [facility] [address] [facility] [id number] [address] [place] [address] Feb, [facility] [address] [id number] [address] [place] [phone] Jan, Type 2 diabetes mellitus wit h complication E11.8 ; Chronic pain syndrome G89.4 ; Bilateral low back pain without sciatica M54.5 ; Essential hypertension I10 ; Anxiety F41.9 ; Chronic obstructive pulmonary disease, unspecified COPD type J44.9 and Thrush B37.0 [facility] [address] [id number] [address] [place] [address] Jan, [facility] [address] [id number] [address] [place] [address] Dec, [facility] [address] [id number] [address] [place] [address] Dec, [facility] [address] [id number] [address] [place] [address] Nov, [facility] [address] [id number] [address] [place] [address] Nov, [facility] [address] [id number] [address] [place] [address] Nov, [facility] [address] [facility] [id number] [address] [place] [address] Nov, Chest pain, unspecified type R07.9 and COPD exacerbation J44.1 [facility] [address] [id number] [address] [place] [address] October, [facility] [address] [facility] [id number] [address] [place] [address] Sep, [facility] [address] [id number] [address] [place] [address] Sep, Type 2 diabetes mellitus wit h complication E11.8 ; Chronic pain syndrome G89.4 ; Bilateral low back pain without sciatica M54.5 ; Essential hypertension I10 ; Anxiety F41.9 and COPD exacerbation J44.1 [facility] [address] [facility] [id number] [address] [place] [address] Aug, [facility] [address] [facility] [id number] [address] [place] [address] Aug, [facility] [address] [facility] [id number] [address] [place] [address] Aug, Chronic pain syndrome G89.4 [facility] [address] [facility] [id number] [address] [place] [phone] Aug, [facility] [id number] [place] [address] Aug, [facility] [id number] [place] [address] Jul, Chronic pain syndrome G89.4 and Anxiety F41.9 [facility] [address] [id number] [address] [place] [address] Jul, [facility] [address] [address] Jun, Bilateral low back pain with out sciatica M54.5 ; Chronic pain syndrome G89.4 ; Anxiety F41.9 ; History of long-term use of multiple prescription drugs Z92.29 ; Type 2 diabetes mellitus with complication E11.8 ; Long-term use of high-risk medication Z79.899 ; Mixed hyperlipidemia E78.2 and Essential hypertension I10 [facility] [address] [id number] [address] [place] [address] Jun, [facility] [address] [id number] [address] [place] [address] Jun, [facility] [address] [facility] [id number] [address] [place] [address] May, [facility] [address] [id number] [address] [place] [address] Apr, [facility] [address] [id number] [address] [place] [address] Mar, [facility] [address] [id number] [address] [place] [address] Mar, Bilateral low back pain with out sciatica M54.5 ; History of long- term use of multiple prescription drugs Z92.29 ; Anxiety F41.9 ; Chronic pain syndrome G89.4 ; Type 2 diabetes mellitus with complication E11.8 ; Long-term use of high-risk medication Z79.899 and Mixed hyperlipidemia E78.2 [facility] [address] [id number] [address] [place] [address] Mar, [facility] [address] [id number] [address] [place] [address] Mar, Chronic pain syndrome G89.4 [facility] [address] [id number] [address] [place] [address] Mar, [facility] [address] [id number] [address] [place] [phone] Feb, [facility] [address] [id number] [address] [place] [address] Feb, [facility] [address] [id number] [address] [place] [address] Feb, [facility] [address] [id number] [address] [place] [address] Feb, [facility] [address] [id number] [address] [place] [address] Jan, [facility] [address] [facility] [id number] [address] [place] [address] Jan, [facility] [address] [id number] [address] [place] [address] Dec, [facility] [address] [id number] [address] [place] [address] Dec, Lumbago 724.2 ; Diabetes thony litus without mention of complication, type II or unspecified type, not stated as uncontrolled 250.00 ; Essential hypertension, benign 401.1 ; Anxiety state, unspecified 300.00 ; Chronic pain 338.29 ; COPD with acute exacerbation 491.21 ; Tobacco abuse 305.1 ; Depression 311 and Hyperlipidemia 272.4 [facility] [address] [id number] [address] [place] [address] Dec, [facility] [address] [facility] [id number] [address] [place] [address] Nov, Lumbago 724.2 ; Diabetes thony litus without mention of complication, type II or unspecified type, not stated as uncontrolled 250.00 ; Essential hypertension, benign 401.1 ; Anxiety state, unspecified 300.00 ; Chronic pain 338.29 ; COPD with acute exacerbation 491.21 ; Tobacco abuse 305.1 and Depression 311 [facility] [address] [id number] [address] [place] [phone] Nov, [facility] [address] [id number] [address] [place] [address] Nov, [facility] [address] [id number] [address] [place] [address] Nov, [facility] [address] [id number] [address] [place] [address] October, [facility] [address] [id number] [address] [place] [address] October, [facility] [address] [id number] [address] [place] [phone] October, [facility] [address] [id number] [address] [place] [address] October, [facility] [address] [id number] [address] [place] [phone] October, [facility] [address] [id number] [address] [place] [phone] Sep, [facility] [address] [facility] [id number] [address] [place] [phone] Sep, [facility] [address] [id number] [address] [place] [address], [place] [address] 13 Sep, 2014 [facility] [address] [id number] [address] [place] [address], [place] [address] 23 Aug, 2014 [facility] [address] [id number] [address] [place] [address], [place] [address] 23 Aug, 2014 [facility] [address] [id number] [address] [place] [address], [place] [address] 20 Aug, 2014 [facility] [address] [id number] [address] [place] [address], [place] [address] 20 Aug, 2014 [facility] [address] [id number] [address] [place] [address], [place] [address] 19 Aug, 2014 [facility] [address] [id number] [address] [place] [address], [place] [address] 19 Aug, 2014 [facility] [address] [id number] [address] [place] [address], [place] [address] 16 Aug, 2014 [facility] [address] [id number] [address] [place] [address], [place] [address] 16 Aug, 2014 [facility] [address] [id number] [address] [place] [address], [place] [address] 16 Aug, 2014 [facility] [address] [id number] [address] [place] [address], [place] [address] 16 Aug, 2014 [facility] [address] [id number] [address] [place] [address], [place] [address] 13 Aug, 2014 [facility] [address] [id number] [address] [place] [address], [place] [address] 13 Aug, 2014 [facility] [address] [id number] [address] [place] [address], [place] [address] 24 Jul, 2014 [facility] [address] [id number] [address] [place] [address], [place] [address] 23 Jul, 2014 [facility] [address] [id number] [address] [place] [address], [place] [address] Jul, [facility] [address] [id number] [address] [place] [address], [place] [address] Jul, [facility] [address] [id number] [address] [place] [address], [place] [address] Jul, [facility] [address] [id number] [address] [place] [address], [place] [address] Jul, [facility] [address] [id number] [address] [place] [address], [place] [address] Jul, [facility] [address] [id number] [address] [place] [address], [place] [address] Jun, [facility] [address] [id number] [address] [place] [address], [place] [address] Jun, [facility] [address] [id number] [address] [place] [address], [place] [address] Jun, [facility] [address] [id number] [address] [place] [address], [place] [address] Jun, [facility] [address] [id number] [address] [place] [address], [place] [address] Jun, [facility] [address] [id number] [address] [place] [address], [place] [address] Jun, [facility] [address] [id number] [address] [place] [address], [place] [address] Jun, [facility] [address] [id number] [address] [place] [address], [place] [address] Jun, [facility] [address] [id number] [address] [place] [address], [place] [address] Jun, [facility] [address] [id number] [address] [place] [address], [place] [address] May, [facility] [address] [id number] [address] [place] [address], [place] [address] May, [facility] [address] [id number] [address] [place] [address], [place] [address] 30 May, 2014 [facility] [address] [id number] [address] [place] [address], [place] [address] 30 May, 2014 [facility] [address] [id number] [address] [place] [address], [place] [address] 17 May, 2014 [facility] [address] [id number] [address] [place] [address], [place] [address] 15 May, 2014 [facility] [address] [id number] [address] [place] [address], [place] [address] 15 May, 2014 [facility] [address] [id number] [address] [place] [address], [place] [address] 12 May, 2014 [facility] [address] [id number] [address] [place] [address], [place] [address] May, [facility] [address] [id number] [address] [place] [address], [place] [address] May, [facility] [address] [id number] [address] [place] [address], [place] [address] May, [facility] [address] [id number] [address] [place] [address], [place] [address] Apr, [facility] [address] [id number] [address] [place] [address], [place] [address] Apr, [facility] [address] [id number] [address] [place] [address], [place] [address] Apr, [facility] [address] [id number] [address] [place] [address], [place] [address] Apr, [facility] [address] [id number] [address] [place] [address], [place] [address] 29 Mar, 2014 [facility] [address] [id number] [address] [place] [address], [place] [address] 29 Mar, 2014 [facility] [address] [id number] [address] [place] [address], [place] [address] Mar, [facility] [address] [id number] [address] [place] [address], [place] [address] 2014 [facility] [address] [id number] [address] [place] [address], [place] [address] Mar, [facility] [address] [id number] [address] [place] [address], [place] [address] Mar, [facility] [address] [id number] [address] [place] [address], [place] [address] 29 Feb, 2014 [facility] [address] [id number] [address] [place] [address], [place] [address] 29 Feb, 2014 [facility] [address] [id number] [address] [place] [address], [place] [address] 17 Feb, 2014 [facility] [address] [id number] [address] [place] [address], [place] [address] 16 Feb, 2014 [facility] [address] [id number] [address] [place] [address], [place] [address] 16 Feb, 2014 [facility] [address] [id number] [address] [place] [address], [place] [address] Feb, [facility] [address] [id number] [address] [place] [address], [place] [address] 03 Feb, 2014 [facility] [address] [id number] [address] [place] [address], [place] [address] Jan, [facility] [address] [id number] [address] [place] [address], [place] [address] Jan, [facility] [address] [id number] [address] [place] [address], [place] [address] Jan, [facility] [address] [id number] [address] [place] [address], [place] [address] Jan, [facility] [address] [id number] [address] [place] [address], [place] [address] Dec, [facility] [address] [id number] [address] [address] Dec, [facility] [address] [facility] [id number] [address] [place] [address] Dec, [facility] [address] [facility] [id number] [address] [place] [address] Dec, IMMUNIZATIONS No Known Immunizations SOCIAL HISTORY [...]
--- OUTSIDE RECORDS SUMMARY | 2019-08-23 12:11 | XMS REPORT ---
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 Name Role Phone ANGE REYNOSO Unavailable PROBLEMS Type Condition ICD9-CM Code WQJ11-DB Code Onset Dates Condition S tatus SNOMED Code Problem Bilateral low back pain without sciatica M54.5 Active 457146426 Problem Anxiety F41.9 Active 36332151 Problem Chronic pain syndrome G89.4 Active 723889947 Problem Thrush B37.0 Active 43060489 Problem Type 2 diabetes mellitus with complication E11.8 Active 07638172 Problem COPD with acute exacerbation J44.1 A ctive 051412001 Problem History of long-term use of multiple prescription drugs Z92.29 Active 641642775 Problem Essential hypertension I10 Active 83046893 Problem Mixed hyperlipidemia E78.2 Active 522176529 Problem Long-term use of high-risk medication Z79.899 Active 785078438 Problem Chronic obstructive pulmonary disease, unspecified COPD ty pe J44.9 Active 31018831 ALLERGIES No Information ENCOUNTERS Encounter Location Date Diagnosis [facility] [address] [id number] [address] [place] [phone] Nov, [facility] [address] [id number] [address] [place] [phone] October, Scabies B86 [facility] [address] [id number] [address] [place] [phone] October, Acute upper respiratory infe ction, unspecified J06.9 [facility] [address] [id number] [address] [place] [phone] October, Dysuria R30.0 and Coughing R 05 [facility] [id number] [place] [phone] Aug, [facility] [address] [id number] [address] [place] [phone] Jun, [facility] [address] [id number] [address] [place] [phone] Jun, [facility] [address] [id number] [address] [place] [phone] Jun, [facility] [address] [id number] [address] [place] [phone] May, [facility] [address] [id number] [address] [place] [phone] May, [facility] [address] [facility] [id number] [address] [place] [phone] May, [facility] [address] [facility] [id number] [address] [place] [phone] Apr, Type 2 diabetes mellitus wit h complication E11.8 ; Chronic pain syndrome G89.4 ; Bilateral low back pain without sciatica M54.5 ; Essential hypertension I10 ; Anxiety F41.9 ; COPD with acute exacerbation J44.1 ; Pain of left hand M79.642 and Pain in right hand M79.641 [facility] [address] [id number] [address] [place] [phone] Apr, [facility] [address] [id number] [address] [place] [phone] Mar, [facility] [address] [id number] [address] [place] [phone] Mar, [facility] [address] [id number] [address] [place] [phone] Mar, [facility] [address] [facility] [id number] [address] [place] [phone] Feb, [facility] [address] [facility] [id number] [address] [place] [phone] Feb, [facility] [address] [id number] [address] [place] [phone] Jan, Type 2 diabetes mellitus wit h complication E11.8 ; Chronic pain syndrome G89.4 ; Bilateral low back pain without sciatica M54.5 ; Essential hypertension I10 ; Anxiety F41.9 ; Chronic obstructive pulmonary disease, unspecified COPD type J44.9 and Thrush B37.0 [facility] [address] [id number] [address] [place] [phone] Jan, [facility] [address] [id number] [address] [place] [phone] Dec, [facility] [address] [id number] [address] [place] [phone] Dec, [facility] [address] [id number] [address] [place] [phone] Nov, [facility] [address] [id number] [address] [place] [phone] Nov, [facility] [address] [id number] [address] [place] [phone] Nov, [facility] [address] [facility] [id number] [address] [place] [phone] Nov, Chest pain, unspecified type R07.9 and COPD exacerbation J44.1 [facility] [address] [id number] [address] [place] [phone] October, [facility] [address] [facility] [id number] [address] [place] [phone] Sep, [facility] [address] [id number] [address] [place] [phone] Sep, Type 2 diabetes mellitus wit h complication E11.8 ; Chronic pain syndrome G89.4 ; Bilateral low back pain without sciatica M54.5 ; Essential hypertension I10 ; Anxiety F41.9 and COPD exacerbation J44.1 [facility] [address] [facility] [id number] [address] [place] [phone] Aug, [facility] [address] [facility] [id number] [address] [place] [phone] Aug, [facility] [address] [facility] [id number] [address] [place] [phone] Aug, Chronic pain syndrome G89.4 [facility] [address] [facility] [id number] [address] [place] [phone] Aug, [facility] [id number] [place] [phone] Aug, [facility] [id number] [place] [phone] Jul, Chronic pain syndrome G89.4 and Anxiety F41.9 [facility] [address] [id number] [address] [place] [phone] Jul, [facility] [address] [phone] Jun, Bilateral low back pain with out sciatica M54.5 ; Chronic pain syndrome G89.4 ; Anxiety F41.9 ; History of long-term use of multiple prescription drugs Z92.29 ; Type 2 diabetes mellitus with complication E11.8 ; Long-term use of high-risk medication Z79.899 ; Mixed hyperlipidemia E78.2 and Essential hypertension I10 [facility] [address] [id number] [address] [place] [phone] Jun, [facility] [address] [id number] [address] [place] [phone] Jun, [facility] [address] [facility] [id number] [address] [place] [phone] May, [facility] [address] [id number] [address] [place] [phone] Apr, [facility] [address] [id number] [address] [place] [phone] Mar, [facility] [address] [id number] [address] [place] [phone] Mar, Bilateral low back pain with out sciatica M54.5 ; History of long- term use of multiple prescription drugs Z92.29 ; Anxiety F41.9 ; Chronic pain syndrome G89.4 ; Type 2 diabetes mellitus with complication E11.8 ; Long-term use of high-risk medication Z79.899 and Mixed hyperlipidemia E78.2 [facility] [address] [id number] [address] [place] [phone] Mar, [facility] [address] [id number] [address] [place] [phone] Mar, Chronic pain syndrome G89.4 [facility] [address] [id number] [address] [place] [phone] Mar, [facility] [address] [id number] [address] [place] [phone] Feb, [facility] [address] [id number] [address] [place] [phone] Feb, [facility] [address] [id number] [address] [place] [phone] Feb, [facility] [address] [id number] [address] [place] [phone] Feb, [facility] [address] [id number] [address] [place] [phone] Jan, [facility] [address] [facility] [id number] [address] [place] [phone] Jan, [facility] [address] [id number] [address] [place] [phone] Dec, [facility] [address] [id number] [address] [place] [phone] Dec, Lumbago 724.2 ; Diabetes thony litus without mention of complication, type II or unspecified type, not stated as uncontrolled 250.00 ; Essential hypertension, benign 401.1 ; Anxiety state, unspecified 300.00 ; Chronic pain 338.29 ; COPD with acute exacerbation 491.21 ; Tobacco abuse 305.1 ; Depression 311 and Hyperlipidemia 272.4 [facility] [address] [id number] [address] [place] [phone] Dec, [facility] [address] [facility] [id number] [address] [place] [phone] Nov, Lumbago 724.2 ; Diabetes thony litus without mention of complication, type II or unspecified type, not stated as uncontrolled 250.00 ; Essential hypertension, benign 401.1 ; Anxiety state, unspecified 300.00 ; Chronic pain 338.29 ; COPD with acute exacerbation 491.21 ; Tobacco abuse 305.1 and Depression 311 [facility] [address] [id number] [address] [place] [phone] Nov, [facility] [address] [id number] [address] [place] [phone] Nov, [facility] [address] [id number] [address] [place] [phone] Nov, [facility] [address] [id number] [address] [place] [phone] October, [facility] [address] [id number] [address] [place] [phone] October, [facility] [address] [id number] [address] [place] [phone] October, [facility] [address] [id number] [address] [place] [phone] October, [facility] [address] [id number] [address] [place] [phone] October, [facility] [address] [id number] [address] [place] [phone] Sep, [facility] [address] [facility] [id number] [address] [place] [phone] Sep, [facility] [address] [id number] [address] [place] [address], [place] [address] 13 Sep, 2014 [facility] [address] [id number] [address] [place] [address], [place] [address] 23 Aug, 2014 [facility] [address] [id number] [address] [place] [address], [place] [address] 23 Aug, 2014 [facility] [address] [id number] [address] [place] [address], [place] [address] 20 Aug, 2014 [facility] [address] [id number] [address] [place] [address], [place] [address] 20 Aug, 2014 [facility] [address] [id number] [address] [place] [address], [place] [address] 19 Aug, 2014 [facility] [address] [id number] [address] [place] [address], [place] [address] 19 Aug, 2014 [facility] [address] [id number] [address] [place] [address], [place] [address] 16 Aug, 2014 [facility] [address] [id number] [address] [place] [address], [place] [address] 16 Aug, 2014 [facility] [address] [id number] [address] [place] [address], [place] [address] 16 Aug, 2014 [facility] [address] [id number] [address] [place] [address], [place] [address] 16 Aug, 2014 [facility] [address] [id number] [address] [place] [address], [place] [address] 13 Aug, 2014 [facility] [address] [id number] [address] [place] [address], [place] [address] 13 Aug, 2014 [facility] [address] [id number] [address] [place] [address], [place] [address] 24 Jul, 2014 [facility] [address] [id number] [address] [place] [address], [place] [address] 23 Jul, 2014 [facility] [address] [id number] [address] [place] [address], [place] [address] Jul, [facility] [address] [id number] [address] [place] [address], [place] [address] Jul, [facility] [address] [id number] [address] [place] [address], [place] [address] Jul, [facility] [address] [id number] [address] [place] [address], [place] [address] Jul, [facility] [address] [id number] [address] [place] [address], [place] [address] Jul, [facility] [address] [id number] [address] [place] [address], [place] [address] Jun, [facility] [address] [id number] [address] [place] [address], [place] [address] Jun, [facility] [address] [id number] [address] [place] [address], [place] [address] Jun, [facility] [address] [id number] [address] [place] [address], [place] [address] Jun, [facility] [address] [id number] [address] [place] [address], [place] [address] Jun, [facility] [address] [id number] [address] [place] [address], [place] [address] Jun, [facility] [address] [id number] [address] [place] [address], [place] [address] Jun, [facility] [address] [id number] [address] [place] [address], [place] [address] Jun, [facility] [address] [id number] [address] [place] [address], [place] [address] Jun, [facility] [address] [id number] [address] [place] [address], [place] [address] May, [facility] [address] [id number] [address] [place] [address], [place] [address] May, [facility] [address] [id number] [address] [place] [address], [place] [address] 30 May, 2014 [facility] [address] [id number] [address] [place] [address], [place] [address] 30 May, 2014 [facility] [address] [id number] [address] [place] [address], [place] [address] 17 May, 2014 [facility] [address] [id number] [address] [place] [address], [place] [address] 15 May, 2014 [facility] [address] [id number] [address] [place] [address], [place] [address] 15 May, 2014 [facility] [address] [id number] [address] [place] [address], [place] [address] 12 May, 2014 [facility] [address] [id number] [address] [place] [address], [place] [address] May, [facility] [address] [id number] [address] [place] [address], [place] [address] May, [facility] [address] [id number] [address] [place] [address], [place] [address] May, [facility] [address] [id number] [address] [place] [address], [place] [address] Apr, [facility] [address] [id number] [address] [place] [address], [place] [address] Apr, [facility] [address] [id number] [address] [place] [address], [place] [address] Apr, [facility] [address] [id number] [address] [place] [address], [place] [address] Apr, [facility] [address] [id number] [address] [place] [address], [place] [address] 29 Mar, 2014 [facility] [address] [id number] [address] [place] [address], [place] [address] 29 Mar, 2014 [facility] [address] [id number] [address] [place] [address], [place] [address] Mar, [facility] [address] [id number] [address] [place] [address], [place] [address] 2014 [facility] [address] [id number] [address] [place] [address], [place] [address] Mar, [facility] [address] [id number] [address] [place] [address], [place] [address] Mar, [facility] [address] [id number] [address] [place] [address], [place] [address] 29 Feb, 2014 [facility] [address] [id number] [address] [place] [address], [place] [address] 29 Feb, 2014 [facility] [address] [id number] [address] [place] [address], [place] [address] 17 Feb, 2014 [facility] [address] [id number] [address] [place] [address], [place] [address] 16 Feb, 2014 [facility] [address] [id number] [address] [place] [address], [place] [address] 16 Feb, 2014 [facility] [address] [id number] [address] [place] [address], [place] [address] Feb, [facility] [address] [id number] [address] [place] [address], [place] [address] 03 Feb, 2014 [facility] [address] [id number] [address] [place] [address], [place] [address] Jan, [facility] [address] [id number] [address] [place] [address], [place] [address] Jan, [facility] [address] [id number] [address] [place] [address], [place] [address] Jan, [facility] [address] [id number] [address] [place] [address], [place] [address] Jan, [facility] [address] [id number] [address] [place] [address], [place] [address] Dec, [facility] [address] [id number] [place] [address] Dec, [facility] [address] [facility] [id number] [address] [place] [id number] Dec, [facility] [address] [facility] [id number] [address] [place] [address] Dec, IMMUNIZATIONS No Known Immunizations SOCIAL HISTORY [...]
--- OUTSIDE RECORDS SUMMARY | 2019-08-23 12:12 | XMS REPORT ---
Author Author RICOVeronica Ferrell ANGE Organization [facility] Address [address] [place] [address] Care Team Providers [employer] Consultant Name Role Phone ANGE REYNOSO Unavailable PROBLEMS Type Condition ICD9-CM Code HRD16-QE Code Onset Dates Condition S tatus SNOMED Code Problem Bilateral low back pain without sciatica M54.5 Active 732073411 Problem Anxiety F41.9 Active 61231101 Problem Chronic pain syndrome G89.4 Active 558926551 Problem Thrush B37.0 Active 67515973 Problem Type 2 diabetes mellitus with complication E11.8 Active 68425433 Problem COPD with acute exacerbation J44.1 A ctive 505640201 Problem History of long-term use of multiple prescription drugs Z92.29 Active 975430064 Problem Essential hypertension I10 Active 46700533 Problem Mixed hyperlipidemia E78.2 Active 547537775 Problem Long-term use of high-risk medication Z79.899 Active 434082400 Problem Chronic obstructive pulmonary disease, unspecified COPD ty pe J44.9 Active [id number] ALLERGIES No Information ENCOUNTERS Encounter Location Date Diagnosis [facility] [address] [id number] [address] [place] [phone] Nov, [facility] [address] [id number] [address] [place] [address] October, Scabies B86 [facility] [address] [id number] [address] [place] [id number] October, Acute upper respiratory infe ction, unspecified J06.9 [facility] [address] [id number] [address] [place] [address] October, Dysuria R30.0 and Coughing R 05 [facility] [id number] [place] [phone] Aug, [facility] [address] [id number] [address] [place] [id number] Jun, [facility] [address] [id number] [address] [place] [phone] Jun, [facility] [address] [id number] [address] [place] [phone] Jun, [facility] [address] [id number] [address] [place] [address] May, [facility] [address] [id number] [address] [place] [phone] May, [facility] [address] [facility] [id number] [address] [place] [address] May, [facility] [address] [facility] [id number] [address] [place] [address] Apr, Type 2 diabetes mellitus wit h complication E11.8 ; Chronic pain syndrome G89.4 ; Bilateral low back pain without sciatica M54.5 ; Essential hypertension I10 ; Anxiety F41.9 ; COPD with acute exacerbation J44.1 ; Pain of left hand M79.642 and Pain in right hand M79.641 [facility] [address] [id number] [address] [place] [address] Apr, [facility] [address] [id number] [address] [place] [phone] Mar, [facility] [address] [id number] [address] [place] [address] Mar, [facility] [address] [id number] [address] [place] [id number] Mar, [facility] [address] [facility] [id number] [address] [place] [id number] Feb, [facility] [address] [facility] [id number] [address] [place] [id number] Feb, [facility] [address] [id number] [address] [place] [address] Jan, Type 2 diabetes mellitus wit h complication E11.8 ; Chronic pain syndrome G89.4 ; Bilateral low back pain without sciatica M54.5 ; Essential hypertension I10 ; Anxiety F41.9 ; Chronic obstructive pulmonary disease, unspecified COPD type J44.9 and Thrush B37.0 [facility] [address] [id number] [address] [place] [id number] Jan, [facility] [address] [id number] [address] [place] [phone] Dec, [facility] [address] [id number] [address] [place] [id number] Dec, [facility] [address] [id number] [address] [place] [phone] Nov, [facility] [address] [id number] [address] [place] [phone] Nov, [facility] [address] [id number] [address] [place] [phone] Nov, [facility] [address] [facility] [id number] [address] [place] [phone] Nov, Chest pain, unspecified type R07.9 and COPD exacerbation J44.1 [facility] [address] [id number] [address] [place] [phone] October, [facility] [address] [facility] [id number] [address] [place] [phone] Sep, [facility] [address] [id number] [address] [place] [address] Sep, Type 2 diabetes mellitus wit h complication E11.8 ; Chronic pain syndrome G89.4 ; Bilateral low back pain without sciatica M54.5 ; Essential hypertension I10 ; Anxiety F41.9 and COPD exacerbation J44.1 [facility] [address] [facility] [id number] [address] [place] [address] Aug, [facility] [address] [facility] [id number] [address] [place] [address] Aug, [facility] [address] [facility] [id number] [address] [place] [address] Aug, Chronic pain syndrome G89.4 [facility] [address] [facility] [id number] [address] [place] [phone] Aug, [facility] [id number] [place] [phone] Aug, [facility] [id number] [place] [phone] Jul, Chronic pain syndrome G89.4 and Anxiety F41.9 [facility] [address] [id number] [address] [place] [address] Jul, [facility] [address] [phone] Jun, Bilateral low back pain with out sciatica M54.5 ; Chronic pain syndrome G89.4 ; Anxiety F41.9 ; History of long-term use of multiple prescription drugs Z92.29 ; Type 2 diabetes mellitus with complication E11.8 ; Long-term use of high-risk medication Z79.899 ; Mixed hyperlipidemia E78.2 and Essential hypertension I10 [facility] [address] [id number] [address] [place] [phone] Jun, [facility] [address] [id number] [address] [place] [address] Jun, [facility] [address] [facility] [id number] [address] [place] [address] May, [facility] [address] [id number] [address] [place] [address] Apr, [facility] [address] [id number] [address] [place] [phone] Mar, [facility] [address] [id number] [address] [place] [address] Mar, Bilateral low back pain with out sciatica M54.5 ; History of long- term use of multiple prescription drugs Z92.29 ; Anxiety F41.9 ; Chronic pain syndrome G89.4 ; Type 2 diabetes mellitus with complication E11.8 ; Long-term use of high-risk medication Z79.899 and Mixed hyperlipidemia E78.2 [facility] [address] [id number] [address] [place] [id number] Mar, [facility] [address] [id number] [address] [place] [address] Mar, Chronic pain syndrome G89.4 [facility] [address] [id number] [address] [place] [address] Mar, [facility] [address] [id number] [address] [place] [address] Feb, [facility] [id number] [address] [place] [address] Feb, [facility] [id number] [address] [place] [address] Feb, [facility] [address] [id number] [address] [place] [id number] Feb, [facility] [id number] [address] [place] [phone] Jan, [facility] [address] [facility] [id number] [address] [place] [phone] Jan, [facility] [address] [id number] [address] [place] [phone] Dec, [facility] [address] [id number] [address] [place] [address] Dec, Lumbago 724.2 ; Diabetes thony litus without mention of complication, type II or unspecified type, not stated as uncontrolled 250.00 ; Essential hypertension, benign 401.1 ; Anxiety state, unspecified 300.00 ; Chronic pain 338.29 ; COPD with acute exacerbation 491.21 ; Tobacco abuse 305.1 ; Depression 311 and Hyperlipidemia 272.4 [facility] [address] [id number] [address] [place] [address] Dec, [facility] [address] [facility] [id number] [address] [place] [address] Nov, Lumbago 724.2 ; Diabetes thony litus without mention of complication, type II or unspecified type, not stated as uncontrolled 250.00 ; Essential hypertension, benign 401.1 ; Anxiety state, unspecified 300.00 ; Chronic pain 338.29 ; COPD with acute exacerbation 491.21 ; Tobacco abuse 305.1 and Depression 311 [facility] [address] [id number] [address] [place] [phone] Nov, [facility] [address] [id number] [address] [place] [phone] Nov, [facility] [address] [id number] [address] [place] [phone] Nov, [facility] [address] [id number] [address] [place] [address] October, [facility] [address] [id number] [address] [place] [address] October, [facility] [address] [id number] [address] [place] [phone] October, [facility] [address] [id number] [address] [place] [address] October, [facility] [address] [id number] [address] [place] [phone] October, [facility] [address] [id number] [address] [place] [phone] Sep, [facility] [address] [facility] [id number] [address] [place] [address] Sep, [facility] [address] [id number] [address] [place] [address], [place] [id number] 13 Sep, 2014 [facility] [address] [id number] [address] [place] [address], [place] [id number] 23 Aug, 2014 [facility] [address] [id number] [address] [place] [address], [place] [id number] 23 Aug, 2014 [facility] [address] [id number] [address] [place] [address], [place] [id number] 20 Aug, 2014 [facility] [address] [id number] [address] [place] [address], [place] [id number] 20 Aug, 2014 [facility] [address] [id number] [address] [place] [address], [place] [id number] 19 Aug, 2014 [facility] [address] [id number] [address] [place] [address], [place] [id number] 19 Aug, 2014 [facility] [address] [id number] [address] [place] [address], [place] [id number] 16 Aug, 2014 [facility] [address] [id number] [address] [place] [address], [place] [id number] 16 Aug, 2014 [facility] [address] [id number] [address] [place] [address], [place] [id number] 16 Aug, 2014 [facility] [address] [id number] [address] [place] [address], [place] [id number] 16 Aug, 2014 [facility] [address] [id number] [address] [place] [address], [place] [id number] 13 Aug, 2014 [facility] [address] [id number] [address] [place] [address], [place] [id number] 13 Aug, 2014 [facility] [address] [id number] [address] [place] [address], [place] [id number] 24 Jul, 2014 [facility] [address] [id number] [address] [place] [address], [place] [id number] 23 Jul, 2014 [facility] [address] [id number] [address] [place] [address], [place] [id number] Jul, [facility] [address] [id number] [address] [place] [address], [place] [address] Jul, [facility] [address] [id number] [address] [place] [address], [place] [id number] Jul, [facility] [address] [id number] [address] [place] [address], [place] [id number] Jul, [facility] [address] [id number] [address] [place] [address], [place] [id number] Jul, [facility] [address] [id number] [address] [place] [address], [place] [id number] Jun, [facility] [address] [id number] [address] [place] [address], [place] [id number] Jun, [facility] [address] [id number] [address] [place] [address], [place] [id number] Jun, [facility] [address] [id number] [address] [place] [address], [place] [id number] Jun, [facility] [address] [id number] [address] [place] [address], [place] [id number] Jun, [facility] [address] [id number] [address] [place] [address], [place] [id number] Jun, [facility] [address] [id number] [address] [place] [address], [place] [id number] Jun, [facility] [address] [id number] [address] [place] [address], [place] [id number] Jun, [facility] [address] [id number] [address] [place] [address], [place] [id number] Jun, [facility] [address] [id number] [address] [place] [address], [place] [id number] May, [facility] [address] [id number] [address] [place] [address], [place] [id number] May, [facility] [address] [id number] [address] [place] [address], [place] [id number] 30 May, 2014 [facility] [address] [id number] [address] [place] [address], [place] [address] 30 May, 2014 [facility] [address] [id number] [address] [place] [address], [place] [id number] 17 May, 2014 [facility] [address] [id number] [address] [place] [address], [place] [id number] 15 May, 2014 [facility] [address] [id number] [address] [place] [address], [place] [address] 15 May, 2014 [facility] [address] [id number] [address] [place] [address], [place] [id number] 12 May, 2014 [facility] [address] [id number] [address] [place] [address], [place] [id number] May, [facility] [address] [id number] [address] [place] [address], [place] [address] May, [facility] [address] [id number] [address] [place] [address], [place] [address] May, [facility] [address] [id number] [address] [place] [address], [place] [address] Apr, [facility] [address] [id number] [address] [place] [address], [place] [address] Apr, [facility] [address] [id number] [address] [place] [address], [place] [address] Apr, [facility] [address] [id number] [address] [place] [address], [place] [id number] Apr, [facility] [address] [id number] [address] [place] [address], [place] [id number] 29 Mar, 2014 [facility] [address] [id number] [address] [place] [address], [place] [id number] 29 Mar, 2014 [facility] [address] [id number] [address] [place] [address], [place] [address] Mar, [facility] [address] [id number] [address] [place] [address] [address] 2014 [facility] [address] [id number] [address] [place] [address], [place] [id number] Mar, [facility] [address] [id number] [address] [place] [address], [place] [id number] Mar, [facility] [address] [id number] [address] [place] [address], [place] [id number] 29 Feb, 2014 [facility] [address] [id number] [address] [place] [address], [place] [id number] 29 Feb, 2014 [facility] [address] [id number] [address] [place] [address], [place] [id number] 17 Feb, 2014 [facility] [address] [id number] [address] [place] [address], [place] [id number] 16 Feb, 2014 [facility] [address] [id number] [address] [place] [address], [place] [id number] 16 Feb, 2014 [facility] [address] [id number] [address] [place] [address], [place] [id number] Feb, [facility] [address] [id number] [address] [place] [address], [place] [id number] 03 Feb, 2014 [facility] [address] [id number] [address] [place] [address], [place] [id number] Jan, [facility] [address] [id number] [address] [place] [address], [place] [id number] Jan, [facility] [address] [id number] [address] [place] [address], [place] [id number] Jan, [facility] [address] [id number] [address] [place] [address], [place] [id number] Jan, [facility] [address] [id number] [address] [place] [address], [place] [address] Dec, [facility] [address] [id number] [address] [address] Dec, [facility] [address] [facility] [id number] [address] [place] [phone] Dec, [facility] [address] [facility] [id number] [address] [place] [id number] Dec, IMMUNIZATIONS No Known Immunizations SOCIAL HISTORY Never Assessed REASON FOR VISIT PLAN OF CARE VITAL SIGNS Height 68 in 2014-05-04 Weight 214.4 lbs 2014-05-04 Temperature 98 degrees Fahrenheit 2014-05-04 Heart Rate 88 bpm 2014-05-04 Respiratory Rate 18 2014-05-04 Blood pressure systolic 142 mmHg 2014-05-04 Blood pressure diastolic 82 mmHg 2014-05-04 MEDICATIONS Unknown Medications RESULTS No Results PROCEDURES Procedure Date Ordered Result Body Site GLYCATED HEMOGLOBIN TEST May 04, 2014 INSTRUCTIONS MEDICATIONS ADMINISTERED No Known Medications [...]
--- OUTSIDE RECORDS SUMMARY | 2019-08-23 12:12 | XMS REPORT ---
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 Name Role Phone ANGE REYNOSO Unavailable PROBLEMS Type Condition ICD9-CM Code [id number] Code Onset Dates Condition S tatus SNOMED Code Problem Bilateral low back pain without sciatica M54.5 Active 753457738 Problem Anxiety F41.9 Active 65737137 Problem Chronic pain syndrome G89.4 Active 662395468 Problem Thrush B37.0 Active 83762291 Problem Type 2 diabetes mellitus with complication E11.8 Active 19186501 Problem COPD with acute exacerbation J44.1 A ctive 745051394 Problem History of long-term use of multiple prescription drugs Z92.29 Active 746211533 Problem Essential hypertension I10 Active 14006407 Problem Mixed hyperlipidemia E78.2 Active 640177593 Problem Long-term use of high-risk medication Z79.899 Active 846007259 Problem Chronic obstructive pulmonary disease, unspecified COPD ty pe J44.9 Active 75318264 ALLERGIES No Information ENCOUNTERS Encounter Location Date Diagnosis [facility] [address] [id number] [address] [place] [address] Nov, [facility] [address] [id number] [address] [place] [address] October, Scabies B86 [facility] [address] [id number] [address] [place] [address] October, Acute upper respiratory infe ction, unspecified J06.9 [facility] [address] [id number] [address] [place] [address] October, Dysuria R30.0 and Coughing R 05 [facility] [id number] [place] [address] Aug, [facility] [address] [id number] [address] [place] [phone] Jun, [facility] [address] [id number] [address] [place] [address] Jun, [facility] [address] [id number] [address] [place] [address] Jun, [facility] [address] [id number] [address] [place] [address] May, [facility] [address] [id number] [address] [place] [address] May, [facility] [address] [facility] [place] [id number] [address] [place] [address] May, [facility] [address] [facility] [place] [id number] [address] [place] [address] Apr, Type 2 diabetes mellitus wit h complication E11.8 ; Chronic pain syndrome G89.4 ; Bilateral low back pain without sciatica M54.5 ; Essential hypertension I10 ; Anxiety F41.9 ; COPD with acute exacerbation J44.1 ; Pain of left hand M79.642 and Pain in right hand M79.641 [facility] [address] [id number] [address] [place] [address] Apr, [facility] [address] [id number] [address] [place] [address] Mar, [facility] [address] [id number] [address] [place] [phone] Mar, [facility] [address] [id number] [address] [place] [address] Mar, [facility] [address] [facility] [place] [id number] [address] [place] [phone] Feb, [facility] [address] [facility] [place] [id number] [address] [place] [address] Feb, [facility] [address] [id number] [address] [place] [address] Jan, Type 2 diabetes mellitus wit h complication E11.8 ; Chronic pain syndrome G89.4 ; Bilateral low back pain without sciatica M54.5 ; Essential hypertension I10 ; Anxiety F41.9 ; Chronic obstructive pulmonary disease, unspecified COPD type J44.9 and Thrush B37.0 [facility] [address] [id number] [address] [place] [address] Jan, [facility] [address] [id number] [address] [place] [phone] Dec, [facility] [address] [id number] [address] [place] [address] Dec, [facility] [address] [id number] [address] [place] [address] Nov, [facility] [address] [id number] [address] [place] [id number] Nov, [facility] [address] [id number] [address] [place] [address] Nov, [facility] [address] [facility] [place] [id number] [address] [place] [address] Nov, Chest pain, unspecified type R07.9 and COPD exacerbation J44.1 [facility] [address] [id number] [address] [place] [address] October, [facility] [address] [facility] [id number] [address] [place] [address] Sep, [facility] [address] [id number] [address] [place] [address] Sep, Type 2 diabetes mellitus wit h complication E11.8 ; Chronic pain syndrome G89.4 ; Bilateral low back pain without sciatica M54.5 ; Essential hypertension I10 ; Anxiety F41.9 and COPD exacerbation J44.1 [facility] [address] [facility] [place] [id number] [address] [place] [phone] Aug, [facility] [address] [facility] [id number] [address] [place] [address] Aug, [facility] [address] [facility] [facility] [id number] [address] [place] [address] Aug, Chronic pain syndrome G89.4 [facility] [address] [facility] [id number] [address] [place] [address] Aug, [facility] [id number] [place] [address] Aug, [facility] [id number] [place] [address] Jul, Chronic pain syndrome G89.4 and Anxiety F41.9 [facility] [address] [id number] [address] [place] [address] Jul, [facility] [address] [address] Jun, Bilateral low back pain with out sciatica M54.5 ; Chronic pain syndrome G89.4 ; Anxiety F41.9 ; History of long-term use of multiple prescription drugs Z92.29 ; Type 2 diabetes mellitus with complication E11.8 ; Long-term use of high-risk medication Z79.899 ; Mixed hyperlipidemia E78.2 and Essential hypertension I10 [facility] [address] [id number] [address] [place] [phone] Jun, [facility] [address] [id number] [address] [place] [address] Jun, [facility] [address] [facility] [place] [id number] [address] [place] [phone] May, [facility] [address] [id number] [address] [place] [phone] Apr, [facility] [address] [id number] [address] [place] [address] Mar, [facility] [address] [id number] [address] [place] [address] Mar, Bilateral low back pain with out sciatica M54.5 ; History of long- term use of multiple prescription drugs Z92.29 ; Anxiety F41.9 ; Chronic pain syndrome G89.4 ; Type 2 diabetes mellitus with complication E11.8 ; Long-term use of high-risk medication Z79.899 and Mixed hyperlipidemia E78.2 [facility] [address] [id number] [address] [place] [phone] Mar, [facility] [address] [id number] [address] [place] [address] Mar, Chronic pain syndrome G89.4 [facility] [address] [id number] [address] [place] [address] Mar, [facility] [address] [id number] [address] [place] [phone] Feb, [facility] [address] [id number] [address] [place] [id number] Feb, [facility] [address] [id number] [address] [place] [id number] Feb, [facility] [address] [id number] [address] [place] [address] Feb, [facility] [address] [id number] [address] [place] [phone] Jan, [facility] [address] [facility] [facility] [id number] [address] [place] [phone] Jan, [facility] [address] [id number] [address] [place] [address] Dec, [facility] [address] [id number] [address] [place] [address] Dec, Lumbago 724.2 ; Diabetes thony litus without mention of complication, type II or unspecified type, not stated as uncontrolled 250.00 ; Essential hypertension, benign 401.1 ; Anxiety state, unspecified 300.00 ; Chronic pain 338.29 ; COPD with acute exacerbation 491.21 ; Tobacco abuse 305.1 ; Depression 311 and Hyperlipidemia 272.4 [facility] [address] [id number] [address] [place] [address] Dec, [facility] [address] [facility] [facility] [id number] [address] [place] [address] Nov, Lumbago 724.2 ; Diabetes thony litus without mention of complication, type II or unspecified type, not stated as uncontrolled 250.00 ; Essential hypertension, benign 401.1 ; Anxiety state, unspecified 300.00 ; Chronic pain 338.29 ; COPD with acute exacerbation 491.21 ; Tobacco abuse 305.1 and Depression 311 [facility] [address] [id number] [address] [place] [address] Nov, [facility] [address] [id number] [address] [place] [address] Nov, [facility] [address] [id number] [address] [place] [address] Nov, [facility] [address] [id number] [address] [place] [address] October, [facility] [address] [id number] [address] [place] [address] October, [facility] [address] [id number] [address] [place] [address] October, [facility] [address] [id number] [address] [place] [phone] October, [facility] [address] [id number] [address] [place] [address] October, [facility] [address] [id number] [address] [place] [phone] Sep, [facility] [address] [facility] [id number] [address] [place] [address] Sep, [facility] [address] [id number] [address] [place] [address], [place] [address] 13 Sep, 2014 [facility] [address] [id number] [address] [place] [address], [place] [address] 23 Aug, 2014 [facility] [address] [id number] [address] [place] [address], [place] [address] 23 Aug, 2014 [facility] [address] [id number] [address] [place] [address], [place] [address] 20 Aug, 2014 [facility] [address] [id number] [address] [place] [address], [place] [address] 20 Aug, 2014 [facility] [address] [id number] [address] [place] [address], [place] [address] 19 Aug, 2014 [facility] [address] [id number] [address] [place] [address], [place] [address] 19 Aug, 2014 [facility] [address] [id number] [address] [place] [address], [place] [address] 16 Aug, 2014 [facility] [address] [id number] [address] [place] [address], [place] [address] 16 Aug, 2014 [facility] [address] [id number] [address] [place] [address], [place] [address] 16 Aug, 2014 [facility] [address] [id number] [address] [place] [address], [place] [address] 16 Aug, 2014 [facility] [address] [id number] [address] [place] [address], [place] [address] 13 Aug, 2014 [facility] [address] [id number] [address] [place] [address], [place] [address] 13 Aug, 2014 [facility] [address] [id number] [address] [place] [address], [place] [address] 24 Jul, 2014 [facility] [address] [id number] [address] [place] [address], [place] [address] 23 Jul, 2014 [facility] [address] [id number] [address] [place] [address], [place] [address] Jul, [facility] [address] [id number] [address] [place] [address], [place] [address] Jul, [facility] [address] [id number] [address] [place] [address], [place] [address] Jul, [facility] [address] [id number] [address] [place] [address], [place] [address] Jul, [facility] [address] [id number] [address] [place] [address], [place] [address] Jul, [facility] [address] [id number] [address] [place] [address], [place] [address] Jun, [facility] [address] [id number] [address] [place] [address], [place] [address] Jun, [facility] [address] [id number] [address] [place] [address], [place] [address] Jun, [facility] [address] [id number] [address] [place] [address], [place] [address] Jun, [facility] [address] [id number] [address] [place] [address], [place] [address] Jun, [facility] [address] [id number] [address] [place] [address], [place] [address] Jun, [facility] [address] [id number] [address] [place] [address], [place] [address] Jun, [facility] [address] [id number] [address] [place] [address], [place] [address] Jun, [facility] [address] [id number] [address] [place] [address], [place] [address] Jun, [facility] [address] [id number] [address] [place] [address], [place] [address] May, [facility] [address] [id number] [address] [place] [address], [place] [address] May, [facility] [address] [id number] [address] [place] [address], [place] [address] 30 May, 2014 [facility] [address] [id number] [address] [place] [address], [place] [address] 30 May, 2014 [facility] [address] [id number] [address] [place] [address], [place] [address] 17 May, 2014 [facility] [address] [id number] [address] [place] [address], [place] [address] 15 May, 2014 [facility] [address] [id number] [address] [place] [address], [place] [address] 15 May, 2014 [facility] [address] [id number] [address] [place] [address], [place] [address] 12 May, 2014 [facility] [address] [id number] [address] [place] [address], [place] [address] May, [facility] [address] [id number] [address] [place] [address], [place] [address] May, [facility] [address] [id number] [address] [place] [address], [place] [address] May, [facility] [address] [id number] [address] [place] [address], [place] [address] Apr, [facility] [address] [id number] [address] [place] [address], [place] [address] Apr, [facility] [address] [id number] [address] [place] [address], [place] [address] Apr, [facility] [address] [id number] [address] [place] [address], [place] [address] Apr, [facility] [address] [id number] [address] [place] [address], [place] [address] 29 Mar, 2014 [facility] [address] [id number] [address] [place] [address], [place] [address] 29 Mar, 2014 [facility] [address] [id number] [address] [place] [address], [place] [address] Mar, [facility] [address] [id number] [address] [place] [address], [place] [address] 2014 [facility] [address] [id number] [address] [place] [address], [place] [address] Mar, [facility] [address] [id number] [address] [place] [address], [place] [address] Mar, [facility] [address] [id number] [address] [place] [address], [place] [address] 29 Feb, 2014 [facility] [address] [id number] [address] [place] [address], [place] [address] 29 Feb, 2014 [facility] [address] [id number] [address] [place] [address], [place] [address] 17 Feb, 2014 [facility] [address] [id number] [address] [place] [address], [place] [address] 16 Feb, 2014 [facility] [address] [id number] [address] [place] [address], [place] [address] 16 Feb, 2014 [facility] [address] [id number] [address] [place] [address], [place] [address] Feb, [facility] [address] [id number] [address] [place] [address], [place] [address] 03 Feb, 2014 [facility] [address] [id number] [address] [place] [address], [place] [address] Jan, [facility] [address] [id number] [address] [place] [address], [place] [address] Jan, [facility] [address] [id number] [address] [place] [address], [place] [address] Jan, [facility] [address] [id number] [address] [place] [address], [place] [address] Jan, [facility] [address] [id number] [address] [place] [address], [place] [address] Dec, [facility] [address] [id number] [place] [address] Dec, [facility] [address] [facility] [id number] [address] [place] [address] Dec, [facility] [address] [facility] [place] [id number] [address] [place] [address] Dec, IMMUNIZATIONS No Known Immunizations SOCIAL HISTORY [...]
--- OUTSIDE RECORDS SUMMARY | 2019-08-23 12:12 | XMS REPORT ---
Author Author RICOVeronica Ferrell ANGE Organization [facility] Address [address] [place] [address] Care Team Providers Care Weaver Wire Loom Name Role Phone ANGE REYNOSO Unavailable PROBLEMS Type Condition ICD9-CM Code LJE17-DT Code Onset Dates Condition S tatus SNOMED Code Problem Bilateral low back pain without sciatica M54.5 Active 920010960 Problem Anxiety F41.9 Active 96311549 Problem Chronic pain syndrome G89.4 Active 151836295 Problem Thrush B37.0 Active 36046254 Problem Type 2 diabetes mellitus with complication E11.8 Active 37290099 Problem COPD with acute exacerbation J44.1 A ctive 029264255 Problem History of long-term use of multiple prescription drugs Z92.29 Active 938043810 Problem Essential hypertension I10 Active 61291330 Problem Mixed hyperlipidemia E78.2 Active 418360299 Problem Long-term use of high-risk medication Z79.899 Active 238159410 Problem Chronic obstructive pulmonary disease, unspecified COPD ty pe J44.9 Active 72942520 ALLERGIES No Information ENCOUNTERS Encounter Location Date Diagnosis [facility] [address] [id number] [address] [place] [phone] Nov, [facility] [address] [id number] [address] [place] [phone] October, Scabies B86 [facility] [address] [id number] [address] [place] [phone] October, Acute upper respiratory infe ction, unspecified J06.9 [facility] W[facility] IN [facility] [address] [id number] [address] [place] [phone] October, Dysuria R30.0 and Coughing R 05 [facility] [id number] [place] [address] Aug, [facility] [address] [id number] [address] [place] [phone] Jun, [facility] [address] [id number] [address] [place] [phone] Jun, [facility] [address] [id number] [address] [place] [phone] Jun, [facility] [address] [id number] [address] [place] [phone] May, [facility] [address] [id number] [address] [place] [phone] May, [facility] [address] [facility] [id number] [address] [place] [phone] May, [facility] [address] [facility] [id number] [address] [place] [id number] Apr, Type 2 diabetes mellitus wit h complication E11.8 ; Chronic pain syndrome G89.4 ; Bilateral low back pain without sciatica M54.5 ; Essential hypertension I10 ; Anxiety F41.9 ; COPD with acute exacerbation J44.1 ; Pain of left hand M79.642 and Pain in right hand M79.641 [facility] [address] [id number] [address] [place] [phone] Apr, [facility] [address] [id number] [address] [place] [phone] Mar, [facility] [address] [id number] [address] [place] [phone] Mar, [facility] [address] [id number] [address] [place] [phone] Mar, [facility] [address] [facility] [id number] [address] [place] [phone] Feb, [facility] [address] [facility] [id number] [address] [place] [phone] Feb, [facility] [address] [id number] [address] [place] [phone] Jan, Type 2 diabetes mellitus wit h complication E11.8 ; Chronic pain syndrome G89.4 ; Bilateral low back pain without sciatica M54.5 ; Essential hypertension I10 ; Anxiety F41.9 ; Chronic obstructive pulmonary disease, unspecified COPD type J44.9 and Thrush B37.0 [facility] [address] [id number] [address] [place] [phone] Jan, [facility] [address] [id number] [address] [place] [phone] Dec, [facility] [address] [id number] [address] [place] [phone] Dec, [facility] [address] [id number] [address] [place] [phone] Nov, [facility] [address] [id number] [address] [place] [phone] Nov, [facility] [address] [id number] [address] [place] [phone] Nov, [facility] [address] [facility] [id number] [address] [place] [phone] Nov, Chest pain, unspecified type R07.9 and COPD exacerbation J44.1 [facility] [address] [id number] [address] [place] [phone] October, [facility] [address] [facility] [id number] [address] [place] [phone] Sep, [facility] [address] [id number] [address] [place] [phone] Sep, Type 2 diabetes mellitus wit h complication E11.8 ; Chronic pain syndrome G89.4 ; Bilateral low back pain without sciatica M54.5 ; Essential hypertension I10 ; Anxiety F41.9 and COPD exacerbation J44.1 [facility] [address] [facility] [id number] [address] [place] [phone] Aug, [facility] [address] [facility] [id number] [address] [place] [phone] Aug, [facility] [address] [facility] [id number] [address] [place] [phone] Aug, Chronic pain syndrome G89.4 [facility] [address] [facility] [id number] [address] [place] [phone] Aug, [facility] [id number] [place] [address] Aug, [facility] [id number] [place] [address] Jul, Chronic pain syndrome G89.4 and Anxiety F41.9 [facility] [address] [id number] [address] [place] [phone] Jul, [facility] [address] [address] Jun, Bilateral low back pain with out sciatica M54.5 ; Chronic pain syndrome G89.4 ; Anxiety F41.9 ; History of long-term use of multiple prescription drugs Z92.29 ; Type 2 diabetes mellitus with complication E11.8 ; Long-term use of high-risk medication Z79.899 ; Mixed hyperlipidemia E78.2 and Essential hypertension I10 [facility] [address] [id number] [address] [place] [phone] Jun, [facility] [address] [id number] [address] [place] [phone] Jun, [facility] [address] [facility] [id number] [address] [place] [phone] May, [facility] [address] [id number] [address] [place] [phone] Apr, [facility] [address] [id number] [address] [place] [phone] Mar, [facility] [address] [id number] [address] [place] [phone] Mar, Bilateral low back pain with out sciatica M54.5 ; History of long- term use of multiple prescription drugs Z92.29 ; Anxiety F41.9 ; Chronic pain syndrome G89.4 ; Type 2 diabetes mellitus with complication E11.8 ; Long-term use of high-risk medication Z79.899 and Mixed hyperlipidemia E78.2 [facility] [address] [id number] [address] [place] [phone] Mar, [facility] [address] [id number] [address] [place] [id number] Mar, Chronic pain syndrome G89.4 [facility] [address] [id number] [address] [place] [phone] Mar, [facility] [address] [id number] [address] [place] [phone] Feb, [facility] [address] [id number] [address] [place] [phone] Feb, [facility] [address] [id number] [address] [place] [phone] Feb, [facility] [address] [id number] [address] [place] [phone] Feb, [facility] [address] [id number] [address] [place] [phone] Jan, [facility] [address] [facility] [id number] [address] [place] [phone] Jan, [facility] [address] [id number] [address] [place] [phone] Dec, [facility] [address] [id number] [address] [place] [id number] Dec, Lumbago 724.2 ; Diabetes thony litus without mention of complication, type II or unspecified type, not stated as uncontrolled 250.00 ; Essential hypertension, benign 401.1 ; Anxiety state, unspecified 300.00 ; Chronic pain 338.29 ; COPD with acute exacerbation 491.21 ; Tobacco abuse 305.1 ; Depression 311 and Hyperlipidemia 272.4 [facility] [address] [id number] [address] [place] [phone] Dec, [facility] [address] [facility] [id number] [address] [place] [phone] Nov, Lumbago 724.2 ; Diabetes thony litus without mention of complication, type II or unspecified type, not stated as uncontrolled 250.00 ; Essential hypertension, benign 401.1 ; Anxiety state, unspecified 300.00 ; Chronic pain 338.29 ; COPD with acute exacerbation 491.21 ; Tobacco abuse 305.1 and Depression 311 [facility] [address] [id number] [address] [place] [phone] Nov, [facility] [address] [id number] [address] [place] [phone] Nov, [facility] [address] [id number] [address] [place] [phone] Nov, [facility] [address] [id number] [address] [place] [phone] October, [facility] [address] [id number] [address] [place] [phone] October, [facility] [address] [id number] [address] [place] [phone] October, [facility] [address] [id number] [address] [place] [phone] October, [facility] [address] [id number] [address] [place] [phone] October, [facility] [address] [id number] [address] [place] [phone] Sep, [facility] [address] [facility] [id number] [address] [place] [phone] Sep, [facility] [address] [id number] [address] [place] [address], [place] [address] 13 Sep, 2014 [facility] [address] [id number] [address] [place] [address], [place] [address] 23 Aug, 2014 [facility] [address] [id number] [address] [place] [address], [place] [address] 23 Aug, 2014 [facility] [address] [id number] [address] [place] [address], [place] [address] 20 Aug, 2014 [facility] [address] [id number] [address] [place] [address], [place] [address] 20 Aug, 2014 [facility] [address] [id number] [address] [place] [address], [place] [address] 19 Aug, 2014 [facility] [address] [id number] [address] [place] [address], [place] [address] 19 Aug, 2014 [facility] [address] [id number] [address] [place] [address], [place] [address] 16 Aug, 2014 [facility] [address] [id number] [address] [place] [address], [place] [address] 16 Aug, 2014 [facility] [address] [id number] [address] [place] [address], [place] [address] 16 Aug, 2014 [facility] [address] [id number] [address] [place] [address], [place] [address] 16 Aug, 2014 [facility] [address] [id number] [address] [place] [address], [place] [address] 13 Aug, 2014 [facility] [address] [id number] [address] [place] [address], [place] [address] 13 Aug, 2014 [facility] [address] [id number] [address] [place] [address], [place] [address] 24 Jul, 2014 [facility] [address] [id number] [address] [place] [address], [place] [address] 23 Jul, 2014 [facility] [address] [id number] [address] [place] [address], [place] [address] Jul, [facility] [address] [id number] [address] [place] [address], [place] [address] Jul, [facility] [address] [id number] [address] [place] [address], [place] [address] Jul, [facility] [address] [id number] [address] [place] [address], [place] [address] Jul, [facility] [address] [id number] [address] [place] [address], [place] [address] Jul, [facility] [address] [id number] [address] [place] [address], [place] [address] Jun, [facility] [address] [id number] [address] [place] [address], [place] [address] Jun, [facility] [address] [id number] [address] [place] [address], [place] [address] Jun, [facility] [address] [id number] [address] [place] [address], [place] [address] Jun, [facility] [address] [id number] [address] [place] [address], [place] [address] Jun, [facility] [address] [id number] [address] [place] [address], [place] [address] Jun, [facility] [address] [id number] [address] [place] [address], [place] [address] Jun, [facility] [address] [id number] [address] [place] [address], [place] [address] Jun, [facility] [address] [id number] [address] [place] [address], [place] [address] Jun, [facility] [address] [id number] [address] [place] [address], [place] [address] May, [facility] [address] [id number] [address] [place] [address], [place] [address] May, [facility] [address] [id number] [address] [place] [address], [place] [address] 30 May, 2014 [facility] [address] [id number] [address] [place] [address], [place] [address] 30 May, 2014 [facility] [address] [id number] [address] [place] [address], [place] [address] 17 May, 2014 [facility] [address] [id number] [address] [place] [address], [place] [address] 15 May, 2014 [facility] [address] [id number] [address] [place] [address], [place] [address] 15 May, 2014 [facility] [address] [id number] [address] [place] [address], [place] [address] 12 May, 2014 [facility] [address] [id number] [address] [place] [address], [place] [address] May, [facility] [address] [id number] [address] [place] [address], [place] [address] May, [facility] [address] [id number] [address] [place] [address], [place] [address] May, [facility] [address] [id number] [address] [place] [address], [place] [address] Apr, [facility] [address] [id number] [address] [place] [address], [place] [address] Apr, [facility] [address] [id number] [address] [place] [address], [place] [address] Apr, [facility] [address] [id number] [address] [place] [address], [place] [address] Apr, [facility] [address] [id number] [address] [place] [address], [place] [address] 29 Mar, 2014 [facility] [address] [id number] [address] [place] [address], [place] [address] 29 Mar, 2014 [facility] [address] [id number] [address] [place] [address], [place] [address] Mar, [facility] [address] [id number] [address] [place] [address], [place] [address] 2014 [facility] [address] [id number] [address] [place] [address], [place] [address] Mar, [facility] [address] [id number] [address] [place] [address], [place] [address] Mar, [facility] [address] [id number] [address] [place] [address], [place] [address] 29 Feb, 2014 [facility] [address] [id number] [address] [place] [address], [place] [address] 29 Feb, 2014 [facility] [address] [id number] [address] [place] [address], [place] [address] 17 Feb, 2014 [facility] [address] [id number] [address] [place] [address], [place] [address] 16 Feb, 2014 [facility] [address] [id number] [address] [place] [address], [place] [address] 16 Feb, 2014 [facility] [address] [id number] [address] [place] [address], [place] [address] Feb, [facility] [address] [id number] [address] [place] [address], [place] [address] 03 Feb, 2014 [facility] [address] [id number] [address] [place] [address], [place] [address] Jan, [facility] [address] [id number] [address] [place] [address], [place] [address] Jan, [facility] [address] [id number] [address] [place] [address], [place] [address] Jan, [facility] [address] [id number] [address] [place] [address], [place] [address] Jan, [facility] [address] [id number] [address] [place] [address], [place] [address] Dec, [facility] [address] [id number] [address] [address] Dec, [facility] [address] [facility] [id number] [address] [place] [phone] Dec, [facility] [address] [facility] [id number] [address] [place] [phone] Dec, IMMUNIZATIONS No Known Immunizations SOCIAL HISTORY Never Assessed REASON FOR VISIT PLAN OF CARE VITAL SIGNS Height 68 in 2014-03-09 Weight 209 lbs 2014-03-09 Temperature 97 degrees Fahrenheit 2014-03-09 Heart Rate 86 bpm 2014-03-09 Respiratory Rate 20 2014-03-09 Blood pressure systolic 120 mmHg 2014-03-09 Blood pressure diastolic 84 mmHg 2014-03-09 MEDICATIONS Unknown Medications RESULTS No Results PROCEDURES [...]
--- OUTSIDE RECORDS SUMMARY | 2019-08-23 12:12 | XMS REPORT ---
Author Author RICOVeronica Ferrell ANGE Organization [facility] [place] Address [address] [place] [address] Care Team Providers Care Dialysis Registered Nurse Name Role Phone ANGE REYNOSO Unavailable PROBLEMS Type Condition ICD9-CM Code VMY02-XV Code Onset Dates Condition S tatus SNOMED Code Problem Bilateral low back pain without sciatica M54.5 Active 658498601 Problem Anxiety F41.9 Active 35727750 Problem Chronic pain syndrome G89.4 Active 417723848 Problem Thrush B37.0 Active 88098059 Problem Type 2 diabetes mellitus with complication E11.8 Active 79876568 Problem COPD with acute exacerbation J44.1 A ctive 154185049 Problem History of long-term use of multiple prescription drugs Z92.29 Active 529242368 Problem Essential hypertension I10 Active 18593260 Problem Mixed hyperlipidemia E78.2 Active 776033219 Problem Long-term use of high-risk medication Z79.899 Active 151079424 Problem Chronic obstructive pulmonary disease, unspecified COPD ty pe J44.9 Active 77661901 ALLERGIES No Information ENCOUNTERS Encounter Location Date Diagnosis [facility] [place] [address] [id number] [address] [place] [phone] Nov, [facility] [address] [id number] [address] [place] [phone] October, Scabies B86 [facility] [address] [id number] [address] [place] [phone] October, Acute upper respiratory infe ction, unspecified J06.9 [facility] [address] [id number] [address] [place] [phone] October, Dysuria R30.0 and Coughing R 05 [facility] [place] [id number] [place] [phone] Aug, [facility] [place] [address] [id number] [address] [place] [phone] Jun, [facility] [place] [address] [id number] [address] [place] [phone] Jun, [facility] [place] [address] [id number] [address] [place] [phone] Jun, [facility] [place] [address] [id number] [address] [place] [phone] May, [facility] [place] [address] [id number] [address] [place] [phone] May, [facility] [place] [address] [facility] [id number] [address] [place] [phone] May, [facility] [place] [address] [facility] [id number] [address] [place] [phone] Apr, Type 2 diabetes mellitus wit h complication E11.8 ; Chronic pain syndrome G89.4 ; Bilateral low back pain without sciatica M54.5 ; Essential hypertension I10 ; Anxiety F41.9 ; COPD with acute exacerbation J44.1 ; Pain of left hand M79.642 and Pain in right hand M79.641 [facility] [place] [address] [id number] [address] [place] [phone] Apr, [facility] [place] [address] [id number] [address] [place] [phone] Mar, [facility] [place] [address] [id number] [address] [place] [phone] Mar, [facility] [place] [address] [id number] [address] [place] [phone] Mar, [facility] [place] [address] [facility] [id number] [address] [place] [phone] Feb, [facility] [place] [address] [facility] [id number] [address] [place] [phone] Feb, [facility] [place] [address] [id number] [address] [place] [phone] Jan, Type 2 diabetes mellitus wit h complication E11.8 ; Chronic pain syndrome G89.4 ; Bilateral low back pain without sciatica M54.5 ; Essential hypertension I10 ; Anxiety F41.9 ; Chronic obstructive pulmonary disease, unspecified COPD type J44.9 and Thrush B37.0 [facility] [place] [address] [id number] [address] [place] [phone] Jan, [facility] [place] [address] [id number] [address] [place] [phone] Dec, [facility] [place] [address] [id number] [address] [place] [phone] Dec, [facility] [place] [address] [id number] [address] [place] [phone] Nov, [facility] [place] [address] [id number] [address] [place] [phone] Nov, [facility] [place] [address] [id number] [address] [place] [phone] Nov, [facility] [place] [address] [facility] [id number] [address] [place] [phone] Nov, Chest pain, unspecified type R07.9 and COPD exacerbation J44.1 [facility] [place] [address] [id number] [address] [place] [phone] October, [facility] [place] [address] [facility] [id number] [address] [place] [phone] Sep, [facility] [place] [address] [id number] [address] [place] [phone] Sep, Type 2 diabetes mellitus wit h complication E11.8 ; Chronic pain syndrome G89.4 ; Bilateral low back pain without sciatica M54.5 ; Essential hypertension I10 ; Anxiety F41.9 and COPD exacerbation J44.1 [facility] [place] [address] [facility] [id number] [address] [place] [phone] Aug, [facility] [place] [address] [facility] [id number] [address] [place] [phone] Aug, [facility] [place] [address] [facility] [id number] [address] [place] [phone] Aug, Chronic pain syndrome G89.4 [facility] [place] [address] [facility] [id number] [address] [place] [phone] Aug, [facility] [place] [id number] [place] [phone] Aug, [facility] [place] [id number] [place] [phone] Jul, Chronic pain syndrome G89.4 and Anxiety F41.9 [facility] [place] [address] [id number] [address] [place] [phone] Jul, [facility] [place] [address] [address] Jun, Bilateral low back pain with out sciatica M54.5 ; Chronic pain syndrome G89.4 ; Anxiety F41.9 ; History of long-term use of multiple prescription drugs Z92.29 ; Type 2 diabetes mellitus with complication E11.8 ; Long-term use of high-risk medication Z79.899 ; Mixed hyperlipidemia E78.2 and Essential hypertension I10 [facility] [place] [address] [id number] [address] [place] [phone] Jun, [facility] [place] [address] [id number] [address] [place] [phone] Jun, [facility] [place] [address] [facility] [id number] [address] [place] [phone] May, [facility] [place] [address] [id number] [address] [place] [phone] Apr, [facility] [place] [address] [id number] [address] [place] [phone] Mar, [facility] [place] [address] [id number] [address] [place] [phone] Mar, Bilateral low back pain with out sciatica M54.5 ; History of long- term use of multiple prescription drugs Z92.29 ; Anxiety F41.9 ; Chronic pain syndrome G89.4 ; Type 2 diabetes mellitus with complication E11.8 ; Long-term use of high-risk medication Z79.899 and Mixed hyperlipidemia E78.2 [facility] [place] [address] [id number] [address] [place] [phone] Mar, [facility] [place] [address] [id number] [address] [place] [phone] Mar, Chronic pain syndrome G89.4 [facility] [place] [id number] [address] [place] [phone] Mar, [facility] [place] [address] [id number] [address] [place] [phone] Feb, [facility] [place] [address] [id number] [address] [place] [phone] Feb, [facility] [place] [address] [id number] [address] [place] [phone] Feb, [facility] [place] [address] [id number] [address] [place] [phone] Feb, [facility] [place] [address] [id number] [address] [place] [phone] Jan, [facility] [place] [address] [facility] [id number] [address] [place] [phone] Jan, [facility] [place] [address] [id number] [address] [place] [phone] Dec, [facility] [place] [address] [id number] [address] [place] [phone] Dec, Lumbago 724.2 ; Diabetes thony litus without mention of complication, type II or unspecified type, not stated as uncontrolled 250.00 ; Essential hypertension, benign 401.1 ; Anxiety state, unspecified 300.00 ; Chronic pain 338.29 ; COPD with acute exacerbation 491.21 ; Tobacco abuse 305.1 ; Depression 311 and Hyperlipidemia 272.4 [facility] [place] [address] [id number] [address] [place] [phone] Dec, [facility] [place] [address] [facility] [id number] [address] [place] [phone] Nov, Lumbago 724.2 ; Diabetes thony litus without mention of complication, type II or unspecified type, not stated as uncontrolled 250.00 ; Essential hypertension, benign 401.1 ; Anxiety state, unspecified 300.00 ; Chronic pain 338.29 ; COPD with acute exacerbation 491.21 ; Tobacco abuse 305.1 and Depression 311 [facility] [place] [address] [id number] [address] [place] [phone] Nov, [facility] [place] [address] [id number] [address] [place] [phone] Nov, [facility] [place] [address] [id number] [address] [place] [phone] Nov, [facility] [place] [address] [id number] [address] [place] [phone] October, [facility] [place] [address] [id number] [address] [place] [phone] October, [facility] [place] [address] [id number] [address] [place] [phone] October, [facility] [place] [address] [id number] [address] [place] [phone] October, [facility] [place] [address] [id number] [address] [place] [phone] October, [facility] [place] [address] [id number] [address] [place] [phone] Sep, [facility] [place] [address] [facility] [id number] [address] [place] [phone] Sep, [facility] [place] [address] [id number] [address] [place] [address], [place] [address] 13 Sep, 2014 [facility] [address] [id number] [address] [place] [address], [place] [address] 23 Aug, 2014 [facility] [address] [id number] [address] [place] [address], [place] [address] 23 Aug, 2014 [facility] [address] [id number] [address] [place] [address], [place] [address] 20 Aug, 2014 [facility] [address] [id number] [address] [place] [address], [place] [address] 20 Aug, 2014 [facility] [address] [id number] [address] [place] [address], [place] [address] 19 Aug, 2014 [facility] [address] [id number] [address] [place] [address], [place] [address] 19 Aug, 2014 [facility] [address] [id number] [address] [place] [address], [place] [address] 16 Aug, 2014 [facility] [address] [id number] [address] [place] [address], [place] [address] 16 Aug, 2014 [facility] [address] [id number] [address] [place] [address], [place] [address] 16 Aug, 2014 [facility] [address] [id number] [address] [place] [address], [place] [address] 16 Aug, 2014 [facility] [address] [id number] [address] [place] [address], [place] [address] 13 Aug, 2014 [facility] [address] [id number] [address] [place] [address], [place] [address] 13 Aug, 2014 [facility] [address] [id number] [address] [place] [address], [place] [address] 24 Jul, 2014 [facility] [address] [id number] [address] [place] [address], [place] [address] 23 Jul, 2014 [facility] [address] [id number] [address] [place] [address], [place] [address] Jul, [facility] [address] [id number] [address] [place] [address], [place] [address] Jul, [facility] [address] [id number] [address] [place] [address], [place] [address] Jul, [facility] [address] [id number] [address] [place] [address], [place] [address] Jul, [facility] [address] [id number] [address] [place] [address], [place] [address] Jul, [facility] [address] [id number] [address] [place] [address], [place] [address] Jun, [facility] [address] [id number] [address] [place] [address], [place] [address] Jun, [facility] [address] [id number] [address] [place] [address], [place] [address] Jun, [facility] [address] [id number] [address] [place] [address], [place] [address] Jun, [facility] [address] [id number] [address] [place] [address], [place] [address] Jun, [facility] [address] [id number] [address] [place] [address], [place] [address] Jun, [facility] [address] [id number] [address] [place] [address], [place] [address] Jun, [facility] [address] [id number] [address] [place] [address], [place] [address] Jun, [facility] [address] [id number] [address] [place] [address], [place] [address] Jun, [facility] [address] [id number] [address] [place] [address], [place] [address] May, [facility] [address] [id number] [address] [place] [address], [place] [address] May, [facility] [address] [id number] [address] [place] [address], [place] [address] 30 May, 2014 [facility] [address] [id number] [address] [place] [address], [place] [address] 30 May, 2014 [facility] [address] [id number] [address] [place] [address], [place] [address] 17 May, 2014 [facility] [address] [id number] [address] [place] [address], [place] [address] 15 May, 2014 [facility] [address] [id number] [address] [place] [address], [place] [address] 15 May, 2014 [facility] [address] [id number] [address] [place] [address], [place] [address] 12 May, 2014 [facility] [address] [id number] [address] [place] [address], [place] [address] May, [facility] [address] [id number] [address] [place] [address], [place] [address] May, [facility] [address] [id number] [address] [place] [address], [place] [address] May, [facility] [address] [id number] [address] [place] [address], [place] [address] Apr, [facility] [address] [id number] [address] [place] [address], [place] [address] Apr, [facility] [address] [id number] [address] [place] [address], [place] [address] Apr, [facility] [address] [id number] [address] [place] [address], [place] [address] Apr, [facility] [address] [id number] [address] [place] [address], [place] [address] 29 Mar, 2014 [facility] [address] [id number] [address] [place] [address], [place] [address] 29 Mar, 2014 [facility] [address] [id number] [address] [place] [address], [place] [address] Mar, [facility] [address] [id number] [address] [place] [address], [place] [address] 2014 [facility] [address] [id number] [address] [place] [address], [place] [address] Mar, [facility] [address] [id number] [address] [place] [address], [place] [address] Mar, [facility] [address] [id number] [address] [place] [address], [place] [address] 29 Feb, 2014 [facility] [address] [id number] [address] [place] [address], [place] [address] 29 Feb, 2014 [facility] [address] [id number] [address] [place] [address], [place] [address] 17 Feb, 2014 [facility] [address] [id number] [address] [place] [address], [place] [address] 16 Feb, 2014 [facility] [address] [id number] [address] [place] [address], [place] [address] 16 Feb, 2014 [facility] [address] [id number] [address] [place] [address], [place] [address] Feb, [facility] [address] [id number] [address] [place] [address], [place] [address] 03 Feb, 2014 [facility] [address] [id number] [address] [place] [address], [place] [address] Jan, [facility] [address] [id number] [address] [place] [address], [place] [address] Jan, [facility] [address] [id number] [address] [place] [address], [place] [address] Jan, [facility] [address] [id number] [address] [place] [address], [place] [address] Jan, [facility] [address] [id number] [address] [place] [address], [place] [address] Dec, [facility] [address] [id number] [address] [place] [address] Dec, [facility] [place] [address] [facility] [id number] [address] [place] [id number] Dec, [facility] [place], [facility] [address] [facility] [id number] [address] [place] [id number] Dec, IMMUNIZATIONS No Known Immunizations SOCIAL HISTORY [...]
--- OUTSIDE RECORDS SUMMARY | 2019-08-23 12:12 | XMS REPORT ---
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 Name Role Phone ANGE REYNOSO Unavailable PROBLEMS Type Condition ICD9-CM Code DXM97-VD Code Onset Dates Condition S tatus SNOMED Code Problem Bilateral low back pain without sciatica M54.5 Active 576613258 Problem Anxiety F41.9 Active 69496898 Problem Chronic pain syndrome G89.4 Active 618506014 Problem Thrush B37.0 Active 14995879 Problem Type 2 diabetes mellitus with complication E11.8 Active 14094132 Problem COPD with acute exacerbation J44.1 A ctive 989053802 Problem History of long-term use of multiple prescription drugs Z92.29 Active 441264346 Problem Essential hypertension I10 Active 92850300 Problem Mixed hyperlipidemia E78.2 Active 690842007 Problem Long-term use of high-risk medication Z79.899 Active 860174362 Problem Chronic obstructive pulmonary disease, unspecified COPD ty pe J44.9 Active 34083997 ALLERGIES No Information ENCOUNTERS Encounter Location Date Diagnosis [facility] [id number] [place] [phone] Nov, [facility] [id number] [place] [phone] October, Scabies B86 [facility] [address] [id number] [address] [place] [phone] October, Acute upper respiratory infe ction, unspecified J06.9 [facility] [address] [id number] [address] [place] [phone] October, Dysuria R30.0 and Coughing R 05 [facility] [id number] [place] [address] Aug, [facility] [address] [id number] [address] [place] [phone] Jun, [facility] [address] [id number] [address] [place] [phone] Jun, [facility] [address] [id number] [address] [place] [address] Jun, [facility] [address] [id number] [address] [place] [address] May, [facility] [address] [id number] [address] [place] [phone] May, [facility] [address] [facility] [id number] [address] [place] [phone] May, [facility] [address] [facility] [id number] [address] [place] [address] Apr, Type 2 diabetes mellitus wit h complication E11.8 ; Chronic pain syndrome G89.4 ; Bilateral low back pain without sciatica M54.5 ; Essential hypertension I10 ; Anxiety F41.9 ; COPD with acute exacerbation J44.1 ; Pain of left hand M79.642 and Pain in right hand M79.641 [facility] [address] [id number] [address] [place] [phone] Apr, [facility] [address] [id number] [address] [place] [address] Mar, [facility] [address] [id number] [address] [place] [address] Mar, [facility] [address] [id number] [address] [place] [address] Mar, [facility] [address] [facility] [id number] [address] [place] [phone] Feb, [facility] [address] [facility] [id number] [address] [place] [phone] Feb, [facility] [address] [id number] [address] [place] [address] Jan, Type 2 diabetes mellitus wit h complication E11.8 ; Chronic pain syndrome G89.4 ; Bilateral low back pain without sciatica M54.5 ; Essential hypertension I10 ; Anxiety F41.9 ; Chronic obstructive pulmonary disease, unspecified COPD type J44.9 and Thrush B37.0 [facility] [address] [id number] [address] [place] [phone] Jan, [facility] [address] [id number] [address] [place] [address] Dec, [facility] [address] [id number] [address] [place] [phone] Dec, [facility] [address] [id number] [address] [place] [phone] Nov, [facility] [address] [id number] [address] [place] [phone] Nov, [facility] [address] [id number] [address] [place] [phone] Nov, [facility] [address] [facility] [id number] [address] [place] [phone] Nov, Chest pain, unspecified type R07.9 and COPD exacerbation J44.1 [facility] [address] [id number] [address] [place] [phone] October, [facility] [address] [facility] [id number] [address] [place] [phone] Sep, [facility] [address] [id number] [address] [place] [phone] Sep, Type 2 diabetes mellitus wit h complication E11.8 ; Chronic pain syndrome G89.4 ; Bilateral low back pain without sciatica M54.5 ; Essential hypertension I10 ; Anxiety F41.9 and COPD exacerbation J44.1 [facility] [address] [facility] [id number] [address] [place] [phone] Aug, [facility] [address] [facility] [id number] [address] [place] [phone] Aug, [facility] [address] [facility] [id number] [address] [place] [phone] Aug, Chronic pain syndrome G89.4 [facility] [address] [facility] [id number] [address] [place] [phone] Aug, [facility] [id number] [place] [address] Aug, [facility] [id number] [place] [phone] Jul, Chronic pain syndrome G89.4 and Anxiety F41.9 [facility] [id number] [address] [place] [phone] Jul, [facility] [address] [id number] Jun, Bilateral low back pain with out sciatica M54.5 ; Chronic pain syndrome G89.4 ; Anxiety F41.9 ; History of long-term use of multiple prescription drugs Z92.29 ; Type 2 diabetes mellitus with complication E11.8 ; Long-term use of high-risk medication Z79.899 ; Mixed hyperlipidemia E78.2 and Essential hypertension I10 [facility] [id number] [address] [place] [phone] Jun, [facility] [id number] [address] [place] [phone] Jun, [facility] [address] [facility] [id number] [address] [place] [phone] May, [facility] [id number] [address] [place] [phone] Apr, [facility] [id number] [address] [place] [address] Mar, [facility] [id number] [address] [place] [phone] Mar, Bilateral low back pain with out sciatica M54.5 ; History of long- term use of multiple prescription drugs Z92.29 ; Anxiety F41.9 ; Chronic pain syndrome G89.4 ; Type 2 diabetes mellitus with complication E11.8 ; Long-term use of high-risk medication Z79.899 and Mixed hyperlipidemia E78.2 [facility] [id number] [address] [place] [address] Mar, [facility] [id number] [place] [address] Mar, Chronic pain syndrome G89.4 [facility] [id number] [address] [place] [phone] Mar, [facility] [id number] [address] [place] [phone] Feb, [facility] [id number] [address] [place] [address] Feb, [facility] [id number] [place] [phone] Feb, [facility] [id number] [place] [phone] Feb, [facility] [id number] [place] [address] Jan, [facility] [address] [facility] [id number] [address] [place] [phone] Jan, [facility] [id number] [address] [place] [phone] Dec, [facility] [id number] [place] [address] Dec, Lumbago 724.2 ; Diabetes thony litus without mention of complication, type II or unspecified type, not stated as uncontrolled 250.00 ; Essential hypertension, benign 401.1 ; Anxiety state, unspecified 300.00 ; Chronic pain 338.29 ; COPD with acute exacerbation 491.21 ; Tobacco abuse 305.1 ; Depression 311 and Hyperlipidemia 272.4 [facility] [address] [id number] [address] [place] [address] Dec, [facility] [address] [facility] [id number] [address] [place] [address] Nov, Lumbago 724.2 ; Diabetes thony litus without mention of complication, type II or unspecified type, not stated as uncontrolled 250.00 ; Essential hypertension, benign 401.1 ; Anxiety state, unspecified 300.00 ; Chronic pain 338.29 ; COPD with acute exacerbation 491.21 ; Tobacco abuse 305.1 and Depression 311 [facility] [address] [id number] [address] [place] [address] Nov, [facility] [address] [id number] [address] [place] [phone] Nov, [facility] [address] [id number] [address] [place] [address] Nov, [facility] [address] [id number] [address] [place] [phone] October, [facility] [address] [id number] [address] [place] [phone] October, [facility] [address] [id number] [address] [place] [phone] October, [facility] [address] [id number] [address] [place] [address] October, [facility] [address] [id number] [address] [place] [phone] October, [facility] [address] [id number] [address] [place] [phone] Sep, [facility] [address] [facility] [id number] [address] [place] [phone] Sep, [facility] [address] [id number] [address] [place] [address], [place] [id number] 13 Sep, 2014 [facility] [address] [id number] [address] [place] [address], [place] [id number] 23 Aug, 2014 [facility] [address] [id number] [address] [place] [address], [place] [id number] 23 Aug, 2014 [facility] [address] [id number] [address] [place] [address], [place] [id number] 20 Aug, 2014 [facility] [address] [id number] [address] [place] [address], [place] [id number] 20 Aug, 2014 [facility] [address] [id number] [address] [place] [address], [place] [id number] 19 Aug, 2014 [facility] [address] [id number] [address] [place] [address], [place] [id number] 19 Aug, 2014 [facility] [address] [id number] [address] [place] [address], [place] [id number] 16 Aug, 2014 [facility] [address] [id number] [address] [place] [address], [place] [id number] 16 Aug, 2014 [facility] [address] [id number] [address] [place] [address], [place] [id number] 16 Aug, 2014 [facility] [address] [id number] [address] [place] [address], [place] [id number] 16 Aug, 2014 [facility] [address] [id number] [address] [place] [address], [place] [id number] 13 Aug, 2014 [facility] [address] [id number] [address] [place] [address], [place] [id number] 13 Aug, 2014 [facility] [address] [id number] [address] [place] [address], [place] [id number] 24 Jul, 2014 [facility] [address] [id number] [address] [place] [address], [place] [id number] 23 Jul, 2014 [facility] [address] [id number] [address] [place] [address], [place] [id number] Jul, [facility] [address] [id number] [address] [place] [address], [place] [id number] Jul, [facility] [address] [id number] [address] [place] [address], [place] [id number] Jul, [facility] [address] [id number] [address] [place] [address], [place] [id number] Jul, [facility] [address] [id number] [address] [place] [address], [place] [id number] Jul, [facility] [address] [id number] [address] [place] [address], [place] [id number] Jun, [facility] [address] [id number] [address] [place] [address], [place] [id number] Jun, [facility] [address] [id number] [address] [place] [address], [place] [id number] Jun, [facility] [address] [id number] [address] [place] [address], [place] [id number] Jun, [facility] [address] [id number] [address] [place] [address], [place] [id number] Jun, [facility] [address] [id number] [address] [place] [address], [place] [id number] Jun, [facility] [address] [id number] [address] [place] [address], [place] [id number] Jun, [facility] [address] [id number] [address] [place] [address], [place] [id number] Jun, [facility] [address] [id number] [address] [place] [address], [place] [id number] Jun, [facility] [address] [id number] [address] [place] [address], [place] [id number] May, [facility] [address] [id number] [address] [place] [address], [place] [id number] May, [facility] [address] [id number] [address] [place] [address], [place] [id number] 30 May, 2014 [facility] [address] [id number] [address] [place] [address], [place] [id number] 30 May, 2014 [facility] [address] [id number] [address] [place] [address], [place] [id number] 17 May, 2014 [facility] [address] [id number] [address] [place] [address], [place] [id number] 15 May, 2014 [facility] [address] [id number] [address] [place] [address], [place] [id number] 15 May, 2014 [facility] [address] [id number] [address] [place] [address], [place] [id number] 12 May, 2014 [facility] [address] [id number] [address] [place] [address], [place] [id number] May, [facility] [address] [id number] [address] [place] [address], [place] [id number] May, [facility] [address] [id number] [address] [place] [address], [place] [id number] May, [facility] [address] [id number] [address] [place] [address], [place] [id number] Apr, [facility] [address] [id number] [address] [place] [address], [place] [id number] Apr, [facility] [address] [id number] [address] [place] [address], [place] [id number] Apr, [facility] [address] [id number] [address] [place] [address], [place] [id number] Apr, [facility] [address] [id number] [address] [place] [address], [place] [id number] 29 Mar, 2014 [facility] [address] [id number] [address] [place] [address], [place] [id number] 29 Mar, 2014 [facility] [address] [id number] [address] [place] [address], [place] [id number] Mar, [facility] [address] [id number] [address] [place] [address], [place] [id number] 2014 [facility] [address] [id number] [address] [place] [address], [place] [id number] Mar, [facility] [address] [id number] [address] [place] [address], [place] [id number] Mar, [facility] [address] [id number] [address] [place] [address], [place] [id number] 29 Feb, 2014 [facility] [address] [id number] [address] [place] [address], [place] [id number] 29 Feb, 2014 [facility] [address] [id number] [address] [place] [address], [place] [id number] 17 Feb, 2014 [facility] [address] [id number] [address] [place] [address], [place] [id number] 16 Feb, 2014 [facility] [address] [id number] [address] [place] [address], [place] [id number] 16 Feb, 2014 [facility] [address] [id number] [address] [place] [address], [place] [id number] Feb, [facility] [address] [id number] [address] [place] [address], [place] [id number] 03 Feb, 2014 [facility] [address] [id number] [address] [place] [address], [place] [id number] Jan, [facility] [address] [id number] [address] [place] [address], [place] [id number] Jan, [facility] [address] [id number] [address] [place] [address], [place] [id number] Jan, [facility] [address] [id number] [address] [place] [address], [place] [id number] Jan, [facility] [address] [id number] [address] [place] [address], [place] [id number] Dec, [facility] [address] [id number] [place] [address] Dec, [facility] [address] [facility] [id number] [address] [place] [id number] Dec, [facility] [address] [facility] [id number] [address] [place] [id number] Dec, IMMUNIZATIONS No Known Immunizations SOCIAL HISTORY Never Assessed REASON FOR VISIT PLAN OF CARE VITAL SIGNS Height 68 in 2014-02-04 Weight 210.8 lbs 2014-02-04 Temperature 97.6 degrees Fahrenheit 2014-02-04 Blood pressure systolic 122 mmHg 2014-02-04 Blood pressure diastolic 86 mmHg 2014-02-04 MEDICATIONS Unknown Medications RESULTS No Results PROCEDURES [...]
--- OUTSIDE RECORDS SUMMARY | 2019-08-23 12:13 | XMS REPORT ---
Author Author RICOVeronica Ferrell ANGE Organization [facility] Address [address] [place] [address] Care Team Providers Care Senior Production Manager Name Role Phone ANGE REYNOSO Unavailable PROBLEMS Type Condition ICD9-CM Code WIK74-RO Code Onset Dates Condition S tatus SNOMED Code Problem Bilateral low back pain without sciatica M54.5 Active 201009642 Problem Anxiety F41.9 Active 39668580 Problem Chronic pain syndrome G89.4 Active 985063932 Problem Thrush B37.0 Active 15505334 Problem Type 2 diabetes mellitus with complication E11.8 Active 03727208 Problem COPD with acute exacerbation J44.1 A ctive 016774295 Problem History of long-term use of multiple prescription drugs Z92.29 Active 689250434 Problem Essential hypertension I10 Active 15713758 Problem Mixed hyperlipidemia E78.2 Active 693097485 Problem Long-term use of high-risk medication Z79.899 Active 933747004 Problem Chronic obstructive pulmonary disease, unspecified COPD ty pe J44.9 Active 81077742 ALLERGIES No Information ENCOUNTERS Encounter Location Date Diagnosis [facility] [address] [id number] [address] [place] [id number] Nov, [facility] [id number] [place] [address] October, Scabies B86 [facility] [address] [id number] [address] [place] [address] October, Acute upper respiratory infe ction, unspecified J06.9 [facility] [address] [id number] [address] [place] [address] October, Dysuria R30.0 and Coughing R 05 [facility] [id number] [place] [address] Aug, [facility] [address] [id number] [address] [place] [address] Jun, [facility] [address] [id number] [address] [place] [address] Jun, [facility] [address] [id number] [address] [place] [address] Jun, [facility] [address] [id number] [address] [place] [address] May, [facility] [address] [id number] [address] [place] [address] May, [facility] [address] [facility] [id number] [address] [place] [address] May, [facility] [address] [facility] [id number] [address] [place] [address] Apr, Type 2 diabetes mellitus wit h complication E11.8 ; Chronic pain syndrome G89.4 ; Bilateral low back pain without sciatica M54.5 ; Essential hypertension I10 ; Anxiety F41.9 ; COPD with acute exacerbation J44.1 ; Pain of left hand M79.642 and Pain in right hand M79.641 [facility] [address] [id number] [address] [place] [phone] Apr, [facility] [address] [id number] [address] [place] [phone] Mar, [facility] [address] [id number] [address] [place] [phone] Mar, [facility] [address] [id number] [address] [place] [phone] Mar, [facility] [address] [facility] [id number] [address] [place] [phone] Feb, [facility] [address] [facility] [id number] [address] [place] [address] Feb, [facility] [address] [id number] [address] [place] [address] Jan, Type 2 diabetes mellitus wit h complication E11.8 ; Chronic pain syndrome G89.4 ; Bilateral low back pain without sciatica M54.5 ; Essential hypertension I10 ; Anxiety F41.9 ; Chronic obstructive pulmonary disease, unspecified COPD type J44.9 and Thrush B37.0 [facility] [address] [id number] [address] [place] [phone] Jan, [facility] [address] [id number] [address] [place] [id number] Dec, [facility] [address] [id number] [address] [place] [phone] Dec, [facility] [address] [id number] [address] [place] [phone] Nov, [facility] [address] [id number] [address] [place] [id number] Nov, [facility] [address] [id number] [address] [place] [phone] Nov, [facility] [address] [facility] [id number] [address] [place] [phone] Nov, Chest pain, unspecified type R07.9 and COPD exacerbation J44.1 [facility] [address] [id number] [address] [place] [phone] October, [facility] [address] [facility] [id number] [address] [place] [phone] Sep, [facility] [address] [id number] [address] [place] [address] Sep, Type 2 diabetes mellitus wit h complication E11.8 ; Chronic pain syndrome G89.4 ; Bilateral low back pain without sciatica M54.5 ; Essential hypertension I10 ; Anxiety F41.9 and COPD exacerbation J44.1 [facility] [address] [facility] [id number] [address] [place] [phone] Aug, [facility] [address] [facility] [id number] [address] [place] [phone] Aug, [facility] [address] [facility] [id number] [address] [place] [phone] Aug, Chronic pain syndrome G89.4 [facility] [address] [facility] [id number] [address] [place] [phone] Aug, [facility] [id number] [place] [address] Aug, [facility] [id number] [place] [address] Jul, Chronic pain syndrome G89.4 and Anxiety F41.9 [facility] [address] [id number] [address] [place] [phone] Jul, [facility] [address] [address] Jun, Bilateral low back pain with out sciatica M54.5 ; Chronic pain syndrome G89.4 ; Anxiety F41.9 ; History of long-term use of multiple prescription drugs Z92.29 ; Type 2 diabetes mellitus with complication E11.8 ; Long-term use of high-risk medication Z79.899 ; Mixed hyperlipidemia E78.2 and Essential hypertension I10 [facility] [address] [id number] [address] [place] [phone] Jun, [facility] [address] [id number] [address] [place] [phone] Jun, [facility] [address] [facility] [id number] [address] [place] [phone] May, [facility] [address] [id number] [address] [place] [phone] Apr, [facility] [address] [id number] [address] [place] [phone] Mar, [facility] [address] [id number] [address] [place] [phone] Mar, Bilateral low back pain with out sciatica M54.5 ; History of long- term use of multiple prescription drugs Z92.29 ; Anxiety F41.9 ; Chronic pain syndrome G89.4 ; Type 2 diabetes mellitus with complication E11.8 ; Long-term use of high-risk medication Z79.899 and Mixed hyperlipidemia E78.2 [facility] [address] [id number] [address] [place] [phone] Mar, [facility] [address] [id number] [address] [place] [phone] Mar, Chronic pain syndrome G89.4 [facility] [address] [id number] [address] [place] [phone] Mar, [facility] [address] [id number] [address] [place] [phone] Feb, [facility] [address] [id number] [address] [place] [phone] Feb, [facility] [address] [id number] [address] [place] [phone] Feb, [facility] [address] [id number] [address] [place] [phone] Feb, [facility] [address] [id number] [address] [place] [phone] Jan, [facility] [address] [facility] [id number] [address] [place] [phone] Jan, [facility] [address] [id number] [address] [place] [phone] Dec, [facility] [address] [id number] [address] [place] [address] Dec, Lumbago 724.2 ; Diabetes thony litus without mention of complication, type II or unspecified type, not stated as uncontrolled 250.00 ; Essential hypertension, benign 401.1 ; Anxiety state, unspecified 300.00 ; Chronic pain 338.29 ; COPD with acute exacerbation 491.21 ; Tobacco abuse 305.1 ; Depression 311 and Hyperlipidemia 272.4 [facility] [address] [id number] [address] [place] [phone] Dec, [facility] [address] [facility] [id number] [address] [place] [phone] Nov, Lumbago 724.2 ; Diabetes thony litus without mention of complication, type II or unspecified type, not stated as uncontrolled 250.00 ; Essential hypertension, benign 401.1 ; Anxiety state, unspecified 300.00 ; Chronic pain 338.29 ; COPD with acute exacerbation 491.21 ; Tobacco abuse 305.1 and Depression 311 [facility] [address] [id number] [address] [place] [phone] Nov, [facility] [address] [id number] [address] [place] [phone] Nov, [facility] [address] [id number] [address] [place] [phone] Nov, [facility] [address] [id number] [address] [place] [phone] October, [facility] [address] [id number] [address] [place] [phone] October, [facility] [address] [id number] [address] [place] [phone] October, [facility] [address] [id number] [address] [place] [phone] October, [facility] [address] [id number] [address] [place] [phone] October, [facility] [address] [id number] [address] [place] [phone] Sep, [facility] [address] [facility] [id number] [address] [place] [phone] Sep, [facility] [address] [id number] [address] [place] [address], [place] [address] 13 Sep, 2014 [facility] [address] [id number] [address] [place] [address], [place] [address] 23 Aug, 2014 [facility] [address] [id number] [address] [place] [address], [place] [address] 23 Aug, 2014 [facility] [address] [id number] [address] [place] [address], [place] [address] 20 Aug, 2014 [facility] [address] [id number] [address] [place] [address], [place] [address] 20 Aug, 2014 [facility] [address] [id number] [address] [place] [address], [place] [address] 19 Aug, 2014 [facility] [address] [id number] [address] [place] [address], [place] [address] 19 Aug, 2014 [facility] [address] [id number] [address] [place] [address], [place] [address] 16 Aug, 2014 [facility] [address] [id number] [address] [place] [address], [place] [address] 16 Aug, 2014 [facility] [address] [id number] [address] [place] [address], [place] [address] 16 Aug, 2014 [facility] [address] [id number] [address] [place] [address], [place] [address] 16 Aug, 2014 [facility] [address] [id number] [address] [place] [address], [place] [address] 13 Aug, 2014 [facility] [address] [id number] [address] [place] [address], [place] [address] 13 Aug, 2014 [facility] [address] [id number] [address] [place] [address], [place] [address] 24 Jul, 2014 [facility] [address] [id number] [address] [place] [address], [place] [address] 23 Jul, 2014 [facility] [address] [id number] [address] [place] [address], [place] [address] Jul, [facility] [address] [id number] [address] [place] [address], [place] [address] Jul, [facility] [address] [id number] [address] [place] [address], [place] [address] Jul, [facility] [address] [id number] [address] [place] [address], [place] [address] Jul, [facility] [address] [id number] [address] [place] [address], [place] [address] Jul, [facility] [address] [id number] [address] [place] [address], [place] [address] Jun, [facility] [address] [id number] [address] [place] [address], [place] [address] Jun, [facility] [address] [id number] [address] [place] [address], [place] [address] Jun, [facility] [address] [id number] [address] [place] [address], [place] [address] Jun, [facility] [address] [id number] [address] [place] [address], [place] [address] Jun, [facility] [address] [id number] [address] [place] [address], [place] [address] Jun, [facility] [address] [id number] [address] [place] [address], [place] [address] Jun, [facility] [address] [id number] [address] [place] [address], [place] [address] Jun, [facility] [address] [id number] [address] [place] [address], [place] [address] Jun, [facility] [address] [id number] [address] [place] [address], [place] [address] May, [facility] [address] [id number] [address] [place] [address], [place] [address] May, [facility] [address] [id number] [address] [place] [address], [place] [address] 30 May, 2014 [facility] [address] [id number] [address] [place] [address], [place] [address] 30 May, 2014 [facility] [address] [id number] [address] [place] [address], [place] [address] 17 May, 2014 [facility] [address] [id number] [address] [place] [address], [place] [address] 15 May, 2014 [facility] [address] [id number] [address] [place] [address], [place] [address] 15 May, 2014 [facility] [address] [id number] [address] [place] [address], [place] [address] 12 May, 2014 [facility] [address] [id number] [address] [place] [address], [place] [address] May, [facility] [address] [id number] [address] [place] [address], [place] [address] May, [facility] [address] [id number] [address] [place] [address], [place] [address] May, [facility] [address] [id number] [address] [place] [address], [place] [address] Apr, [facility] [address] [id number] [address] [place] [address], [place] [address] Apr, [facility] [address] [id number] [address] [place] [address], [place] [address] Apr, [facility] [address] [id number] [address] [place] [address], [place] [address] Apr, [facility] [address] [id number] [address] [place] [address], [place] [address] 29 Mar, 2014 [facility] [address] [id number] [address] [place] [address], [place] [address] 29 Mar, 2014 [facility] [address] [id number] [address] [place] [address], [place] [address] Mar, [facility] [address] [id number] [address] [place] [address], [place] [address] 2014 [facility] [address] [id number] [address] [place] [address], [place] [address] Mar, [facility] [address] [id number] [address] [place] [address], [place] [address] Mar, [facility] [address] [id number] [address] [place] [address], [place] [address] 29 Feb, 2014 [facility] [address] [id number] [address] [place] [address], [place] [address] 29 Feb, 2014 [facility] [address] [id number] [address] [place] [address], [place] [address] 17 Feb, 2014 [facility] [address] [id number] [address] [place] [address], [place] [address] 16 Feb, 2014 [facility] [address] [id number] [address] [place] [address], [place] [address] 16 Feb, 2014 [facility] [address] [id number] [address] [place] [address], [place] [address] Feb, [facility] [address] [id number] [address] [place] [address], [place] [address] 03 Feb, 2014 [facility] [address] [id number] [address] [place] [address], [place] [address] Jan, [facility] [address] [id number] [address] [place] [address], [place] [address] Jan, [facility] [address] [id number] [address] [place] [address], [place] [address] Jan, [facility] [address] [id number] [address] [place] [address], [place] [address] Jan, [facility] [address] [id number] [address] [place] [address], [place] [address] Dec, [facility] [address] [id number] [address] [address] Dec, [facility] [address] [facility] [id number] [address] [place] [address] Dec, [facility] [address] [facility] [id number] [address] [place] [address] Dec, IMMUNIZATIONS No Known Immunizations SOCIAL HISTORY Never Assessed REASON FOR VISIT PLAN OF CARE VITAL SIGNS Height 68 in 2014-06-03 Weight 207 lbs 2014-06-03 Temperature 97 degrees Fahrenheit 2014-06-03 Heart Rate 84 bpm 2014-06-03 Respiratory Rate 20 2014-06-03 Blood pressure systolic 136 mmHg 2014-06-03 Blood pressure diastolic 82 mmHg 2014-06-03 MEDICATIONS Unknown Medications RESULTS No Results PROCEDURES Procedure Date Ordered Result Body Site COMPLETE CBC W/AUTO DIFF WBC Jun 03, 2014 COMPREHEN METABOLIC PANEL Jun 03, 2014 CT HEAD/BRAIN W/O&W DYE Jun 03, 2014 VENIPUNCT, ROUTINE* Jun 03, 2014 INSTRUCTIONS MEDICATIONS ADMINISTERED No Known Medications [...]
--- OUTSIDE RECORDS SUMMARY | 2019-08-23 12:13 | XMS REPORT ---
Author Author RICOVeronica Ferrell ANGE Organization [facility] Address [address] [place] [address] Care Team Providers Care Correspondence [employer] Instructor Name Role Phone ANGE REYNOSO Unavailable PROBLEMS Type Condition ICD9-CM Code UUM89-MZ Code Onset Dates Condition S tatus SNOMED Code Problem Bilateral low back pain without sciatica M54.5 Active 639133860 Problem Anxiety F41.9 Active 23748046 Problem Chronic pain syndrome G89.4 Active 125977872 Problem Thrush B37.0 Active 24975200 Problem Type 2 diabetes mellitus with complication E11.8 Active 38608240 Problem COPD with acute exacerbation J44.1 A ctive 930317593 Problem History of long-term use of multiple prescription drugs Z92.29 Active 067426130 Problem Essential hypertension I10 Active 88008571 Problem Mixed hyperlipidemia E78.2 Active 153888362 Problem Long-term use of high-risk medication Z79.899 Active 334868044 Problem Chronic obstructive pulmonary disease, unspecified COPD ty pe J44.9 Active 94327742 ALLERGIES No Information ENCOUNTERS Encounter Location Date Diagnosis [facility] [address] [id number] [address] [place] [phone] Nov, [facility] [address] [id number] [address] [place] [phone] October, Scabies B86 [facility] [address] [id number] [address] [place] [phone] October, Acute upper respiratory infe ction, unspecified J06.9 [facility] [address] [id number] [address] [place] [phone] October, Dysuria R30.0 and Coughing R 05 [facility] [id number] [place] [phone] Aug, [facility] [address] [id number] [address] [place] [phone] Jun, [facility] [address] [id number] [address] [place] [phone] Jun, [facility] [address] [id number] [address] [place] [phone] Jun, [facility] [address] [id number] [address] [place] [phone] May, [facility] [address] [id number] [address] [place] [phone] May, [facility] [address] [facility] [id number] [address] [place] [phone] May, [facility] [address] [facility] [id number] [address] [place] [phone] Apr, Type 2 diabetes mellitus wit h complication E11.8 ; Chronic pain syndrome G89.4 ; Bilateral low back pain without sciatica M54.5 ; Essential hypertension I10 ; Anxiety F41.9 ; COPD with acute exacerbation J44.1 ; Pain of left hand M79.642 and Pain in right hand M79.641 [facility] [address] [id number] [address] [place] [phone] Apr, [facility] [address] [id number] [address] [place] [phone] Mar, [facility] [address] [id number] [address] [place] [phone] Mar, [facility] [address] [id number] [address] [place] [phone] Mar, [facility] [address] [facility] [id number] [address] [place] [phone] Feb, [facility] [address] [facility] [id number] [address] [place] [phone] Feb, [facility] [address] [id number] [address] [place] [phone] Jan, Type 2 diabetes mellitus wit h complication E11.8 ; Chronic pain syndrome G89.4 ; Bilateral low back pain without sciatica M54.5 ; Essential hypertension I10 ; Anxiety F41.9 ; Chronic obstructive pulmonary disease, unspecified COPD type J44.9 and Thrush B37.0 [facility] [address] [id number] [address] [place] [phone] Jan, [facility] [address] [id number] [address] [place] [phone] Dec, [facility] [address] [id number] [address] [place] [phone] Dec, [facility] [address] [id number] [address] [place] [phone] Nov, [facility] [address] [id number] [address] [place] [phone] Nov, [facility] [address] [id number] [address] [place] [phone] Nov, [facility] [address] [facility] [id number] [address] [place] [phone] Nov, Chest pain, unspecified type R07.9 and COPD exacerbation J44.1 [facility] [address] [id number] [address] [place] [phone] October, [facility] [address] [facility] [id number] [address] [place] [phone] Sep, [facility] [address] [id number] [address] [place] [phone] Sep, Type 2 diabetes mellitus wit h complication E11.8 ; Chronic pain syndrome G89.4 ; Bilateral low back pain without sciatica M54.5 ; Essential hypertension I10 ; Anxiety F41.9 and COPD exacerbation J44.1 [facility] [address] [facility] [id number] [address] [place] [phone] Aug, [facility] [address] [facility] [id number] [address] [place] [phone] Aug, [facility] [address] [facility] [id number] [address] [place] [phone] Aug, Chronic pain syndrome G89.4 [facility] [address] [facility] [id number] [address] [place] [phone] Aug, [facility] [id number] [place] [phone] Aug, [facility] [id number] [place] [phone] Jul, Chronic pain syndrome G89.4 and Anxiety F41.9 [facility] [address] [id number] [address] [place] [phone] Jul, [facility] [address] [address] Jun, Bilateral low back pain with out sciatica M54.5 ; Chronic pain syndrome G89.4 ; Anxiety F41.9 ; History of long-term use of multiple prescription drugs Z92.29 ; Type 2 diabetes mellitus with complication E11.8 ; Long-term use of high-risk medication Z79.899 ; Mixed hyperlipidemia E78.2 and Essential hypertension I10 [facility] [address] [id number] [address] [place] [phone] Jun, [facility] [address] [id number] [address] [place] [phone] Jun, [facility] [address] [facility] [id number] [address] [place] [phone] May, [facility] [address] [id number] [address] [place] [phone] Apr, [facility] [address] [id number] [address] [place] [phone] Mar, [facility] [address] [id number] [address] [place] [phone] Mar, Bilateral low back pain with out sciatica M54.5 ; History of long- term use of multiple prescription drugs Z92.29 ; Anxiety F41.9 ; Chronic pain syndrome G89.4 ; Type 2 diabetes mellitus with complication E11.8 ; Long-term use of high-risk medication Z79.899 and Mixed hyperlipidemia E78.2 [facility] [address] [id number] [address] [place] [phone] Mar, [facility] [address] [id number] [address] [place] [phone] Mar, Chronic pain syndrome G89.4 [facility] [address] [id number] [address] [place] [phone] Mar, [facility] [address] [id number] [address] [place] [phone] Feb, [facility] [address] [id number] [address] [place] [phone] Feb, [facility] [address] [id number] [address] [place] [phone] Feb, [facility] [address] [id number] [address] [place] [phone] Feb, [facility] [address] [id number] [address] [place] [phone] Jan, [facility] [address] [facility] [id number] [address] [place] [phone] Jan, [facility] [address] [id number] [address] [place] [phone] Dec, [facility] [address] [id number] [address] [place] [phone] Dec, Lumbago 724.2 ; Diabetes thony litus without mention of complication, type II or unspecified type, not stated as uncontrolled 250.00 ; Essential hypertension, benign 401.1 ; Anxiety state, unspecified 300.00 ; Chronic pain 338.29 ; COPD with acute exacerbation 491.21 ; Tobacco abuse 305.1 ; Depression 311 and Hyperlipidemia 272.4 [facility] [address] [id number] [address] [place] [phone] Dec, [facility] [address] [facility] [id number] [address] [place] [phone] Nov, Lumbago 724.2 ; Diabetes thony litus without mention of complication, type II or unspecified type, not stated as uncontrolled 250.00 ; Essential hypertension, benign 401.1 ; Anxiety state, unspecified 300.00 ; Chronic pain 338.29 ; COPD with acute exacerbation 491.21 ; Tobacco abuse 305.1 and Depression 311 [facility] [address] [id number] [address] [place] [phone] Nov, [facility] [address] [id number] [address] [place] [phone] Nov, [facility] [address] [id number] [address] [place] [phone] Nov, [facility] [address] [id number] [address] [place] [phone] October, [facility] [address] [id number] [address] [place] [phone] October, [facility] [address] [id number] [address] [place] [phone] October, [facility] [address] [id number] [address] [place] [phone] October, [facility] [address] [id number] [address] [place] [phone] October, [facility] [address] [id number] [address] [place] [phone] Sep, [facility] [address] [facility] [id number] [address] [place] [phone] Sep, [facility] [address] [id number] [address] [place] [address], [place] [address] 13 Sep, 2014 [facility] [address] [id number] [address] [place] [address], [place] [address] 23 Aug, 2014 [facility] [address] [id number] [address] [place] [address], [place] [address] 23 Aug, 2014 [facility] [address] [id number] [address] [place] [address], [place] [address] 20 Aug, 2014 [facility] [address] [id number] [address] [place] [address], [place] [address] 20 Aug, 2014 [facility] [address] [id number] [address] [place] [address], [place] [address] 19 Aug, 2014 [facility] [address] [id number] [address] [place] [address], [place] [address] 19 Aug, 2014 [facility] [address] [id number] [address] [place] [address], [place] [address] 16 Aug, 2014 [facility] [address] [id number] [address] [place] [address], [place] [address] 16 Aug, 2014 [facility] [address] [id number] [address] [place] [address], [place] [address] 16 Aug, 2014 [facility] [address] [id number] [address] [place] [address], [place] [address] 16 Aug, 2014 [facility] [address] [id number] [address] [place] [address], [place] [address] 13 Aug, 2014 [facility] [address] [id number] [address] [place] [address], [place] [address] 13 Aug, 2014 [facility] [address] [id number] [address] [place] [address], [place] [address] 24 Jul, 2014 [facility] [address] [id number] [address] [place] [address], [place] [address] 23 Jul, 2014 [facility] [address] [id number] [address] [place] [address], [place] [address] Jul, [facility] [address] [id number] [address] [place] [address], [place] [address] Jul, [facility] [address] [id number] [address] [place] [address], [place] [address] Jul, [facility] [address] [id number] [address] [place] [address], [place] [address] Jul, [facility] [address] [id number] [address] [place] [address], [place] [address] Jul, [facility] [address] [id number] [address] [place] [address], [place] [address] Jun, [facility] [address] [id number] [address] [place] [address], [place] [address] Jun, [facility] [address] [id number] [address] [place] [address], [place] [address] Jun, [facility] [address] [id number] [address] [place] [address], [place] [address] Jun, [facility] [address] [id number] [address] [place] [address], [place] [address] Jun, [facility] [address] [id number] [address] [place] [address], [place] [address] Jun, [facility] [address] [id number] [address] [place] [address], [place] [address] Jun, [facility] [address] [id number] [address] [place] [address], [place] [address] Jun, [facility] [address] [id number] [address] [place] [address], [place] [address] Jun, [facility] [address] [id number] [address] [place] [address], [place] [address] May, [facility] [address] [id number] [address] [place] [address], [place] [address] May, [facility] [address] [id number] [address] [place] [address], [place] [address] 30 May, 2014 [facility] [address] [id number] [address] [place] [address], [place] [address] 30 May, 2014 [facility] [address] [id number] [address] [place] [address], [place] [address] 17 May, 2014 [facility] [address] [id number] [address] [place] [address], [place] [address] 15 May, 2014 [facility] [address] [id number] [address] [place] [address], [place] [address] 15 May, 2014 [facility] [address] [id number] [address] [place] [address], [place] [address] 12 May, 2014 [facility] [address] [id number] [address] [place] [address], [place] [address] May, [facility] [address] [id number] [address] [place] [address], [place] [address] May, [facility] [address] [id number] [address] [place] [address], [place] [address] May, [facility] [address] [id number] [address] [place] [address], [place] [address] Apr, [facility] [address] [id number] [address] [place] [address], [place] [address] Apr, [facility] [address] [id number] [address] [place] [address], [place] [address] Apr, [facility] [address] [id number] [address] [place] [address], [place] [address] Apr, [facility] [address] [id number] [address] [place] [address], [place] [address] 29 Mar, 2014 [facility] [address] [id number] [address] [place] [address], [place] [address] 29 Mar, 2014 [facility] [address] [id number] [address] [place] [address], [place] [address] Mar, [facility] [address] [id number] [address] [place] [address], [place] [address] 2014 [facility] [address] [id number] [address] [place] [address], [place] [address] Mar, [facility] [address] [id number] [address] [place] [address], [place] [address] Mar, [facility] [address] [id number] [address] [place] [address], [place] [address] 29 Feb, 2014 [facility] [address] [id number] [address] [place] [address], [place] [address] 29 Feb, 2014 [facility] [address] [id number] [address] [place] [address], [place] [address] 17 Feb, 2014 [facility] [address] [id number] [address] [place] [address], [place] [address] 16 Feb, 2014 [facility] [address] [id number] [address] [place] [address], [place] [address] 16 Feb, 2014 [facility] [address] [id number] [address] [place] [address], [place] [address] Feb, [facility] [address] [id number] [address] [place] [address], [place] [address] 03 Feb, 2014 [facility] [address] [id number] [address] [place] [address], [place] [address] Jan, [facility] [address] [id number] [address] [place] [address], [place] [address] Jan, [facility] [address] [id number] [address] [place] [address], [place] [address] Jan, [facility] [address] [id number] [address] [place] [address], [place] [address] Jan, [facility] [address] [id number] [address] [place] [address], [place] [address] Dec, [facility] [address] [id number] [place] [address] Dec, [facility] [address] [facility] [id number] [address] [place] [id number] Dec, [facility] [address] [facility] [id number] [address] [place] [phone] Dec, IMMUNIZATIONS Vaccine Route Administration Date Status FLULAVAL (3 & UP) 2013 Unknown Jul 06, 2014 Administe red SOCIAL HISTORY Never Assessed REASON FOR VISIT PLAN OF CARE VITAL SIGNS Height 68 in 2014-07-06 Weight 213.1 lbs 2014-07-06 Temperature 97.8 degrees Fahrenheit 2014-07-06 Heart Rate 80 bpm 2014-07-06 Respiratory Rate 20 2014-07-06 Blood pressure systolic 122 mmHg 2014-07-06 Blood pressure diastolic 93 mmHg 2014-07-06 MEDICATIONS Unknown Medications RESULTS No Results PROCEDURES Procedure Date Ordered Result Body Site INJ KETOROLAC TROMETHAMINE 15 MG Jul 06, 2014 X-RAY EXAM OF LOWER SPINE Jul 06, 2014 INSTRUCTIONS MEDICATIONS ADMINISTERED No Known Medications [...]
--- OUTSIDE RECORDS SUMMARY | 2019-08-23 12:13 | XMS REPORT ---
Author Author RICOVeronica Ferrell ANGE Organization [facility] Address [address] [place] [address] Care Team Providers Care Parole Officer Name Role Phone ANGE REYNOSO Unavailable PROBLEMS Type Condition ICD9-CM Code QHD40-JT Code Onset Dates Condition S tatus SNOMED Code Problem Bilateral low back pain without sciatica M54.5 Active 427783259 Problem Anxiety F41.9 Active 81682447 Problem Chronic pain syndrome G89.4 Active 266206448 Problem Thrush B37.0 Active 04610273 Problem Type 2 diabetes mellitus with complication E11.8 Active 50855987 Problem COPD with acute exacerbation J44.1 A ctive 953588314 Problem History of long-term use of multiple prescription drugs Z92.29 Active 345977529 Problem Essential hypertension I10 Active 53271948 Problem Mixed hyperlipidemia E78.2 Active 984092113 Problem Long-term use of high-risk medication Z79.899 Active 943066853 Problem Chronic obstructive pulmonary disease, unspecified COPD ty pe J44.9 Active [id number] ALLERGIES No Information ENCOUNTERS Encounter Location Date Diagnosis [facility] [address] [id number] [address] [place] [address] Nov, [facility] [address] [id number] [place] [address] October, Scabies B86 [facility] [address] [id number] [address] [place] [address] October, Acute upper respiratory infe ction, unspecified J06.9 [facility] [address] [id number] [address] [place] [id number] October, Dysuria R30.0 and Coughing R 05 [facility] [id number] [place] [address] Aug, [facility] [address] [id number] [address] [place] [address] Jun, [facility] [address] [id number] [address] [place] [id number] Jun, [facility] [address] [id number] [address] [place] [address] Jun, [facility] [address] [id number] [address] [place] [phone] May, [facility] [address] [id number] [address] [place] [id number] May, [facility] [address] [facility] [id number] [address] [place] [address] May, [facility] [address] [facility] [id number] [address] [place] [address] Apr, Type 2 diabetes mellitus wit h complication E11.8 ; Chronic pain syndrome G89.4 ; Bilateral low back pain without sciatica M54.5 ; Essential hypertension I10 ; Anxiety F41.9 ; COPD with acute exacerbation J44.1 ; Pain of left hand M79.642 and Pain in right hand M79.641 [facility] [address] [id number] [address] [place] [id number] Apr, [facility] [address] [id number] [address] [place] [address] Mar, [facility] [address] [id number] [address] [place] [id number] Mar, [facility] [address] [id number] [address] [place] [address] Mar, [facility] [address] [facility] [id number] [address] [place] [id number] Feb, [facility] [address] [facility] [id number] [address] [place] [id number] Feb, [facility] [address] [id number] [address] [place] [id number] Jan, Type 2 diabetes mellitus wit h complication E11.8 ; Chronic pain syndrome G89.4 ; Bilateral low back pain without sciatica M54.5 ; Essential hypertension I10 ; Anxiety F41.9 ; Chronic obstructive pulmonary disease, unspecified COPD type J44.9 and Thrush B37.0 [facility] [address] [id number] [address] [place] [id number] Jan, [facility] [address] [id number] [address] [place] [id number] Dec, [facility] [address] [id number] [address] [place] [address] Dec, [facility] [address] [id number] [address] [place] [id number] Nov, [facility] [address] [id number] [address] [place] [address] Nov, [facility] [address] [id number] [address] [place] [id number] Nov, [facility] [address] [facility] [id number] [address] [place] [id number] Nov, Chest pain, unspecified type R07.9 and COPD exacerbation J44.1 [facility] [address] [id number] [address] [place] [id number] October, [facility] [address] [facility] [id number] [address] [place] [id number] Sep, [facility] [address] [id number] [address] [place] [address] Sep, Type 2 diabetes mellitus wit h complication E11.8 ; Chronic pain syndrome G89.4 ; Bilateral low back pain without sciatica M54.5 ; Essential hypertension I10 ; Anxiety F41.9 and COPD exacerbation J44.1 [facility] [address] [facility] [id number] [address] [place] [id number] Aug, [facility] [address] [facility] [id number] [address] [place] [phone] Aug, [facility] [address] [facility] [id number] [address] [place] [address] Aug, Chronic pain syndrome G89.4 [facility] [address] [facility] [id number] [address] [place] [phone] Aug, [facility] [id number] [place] [phone] Aug, [facility] [id number] [place] [phone] Jul, Chronic pain syndrome G89.4 and Anxiety F41.9 [facility] [address] [id number] [address] [place] [address] Jul, [facility] [address] [address] Jun, Bilateral low back pain with out sciatica M54.5 ; Chronic pain syndrome G89.4 ; Anxiety F41.9 ; History of long-term use of multiple prescription drugs Z92.29 ; Type 2 diabetes mellitus with complication E11.8 ; Long-term use of high-risk medication Z79.899 ; Mixed hyperlipidemia E78.2 and Essential hypertension I10 [facility] [address] [id number] [address] [place] [id number] Jun, [facility] [address] [id number] [address] [place] [id number] Jun, [facility] [address] [facility] [id number] [address] [place] [id number] May, [facility] [address] [id number] [address] [place] [id number] Apr, [facility] [address] [id number] [address] [place] [id number] Mar, [facility] [address] [id number] [address] [place] [id number] Mar, Bilateral low back pain with out sciatica M54.5 ; History of long- term use of multiple prescription drugs Z92.29 ; Anxiety F41.9 ; Chronic pain syndrome G89.4 ; Type 2 diabetes mellitus with complication E11.8 ; Long-term use of high-risk medication Z79.899 and Mixed hyperlipidemia E78.2 [facility] [address] [id number] [address] [place] [id number] Mar, [facility] [address] [id number] [address] [place] [id number] Mar, Chronic pain syndrome G89.4 [facility] [address] [id number] [address] [place] [id number] Mar, [facility] [address] [id number] [address] [place] [id number] Feb, [facility] [id number] [address] [place] [id number] Feb, [facility] [address] [id number] [address] [place] [id number] Feb, [facility] [address] [id number] [address] [place] [id number] Feb, [facility] [address] [id number] [address] [place] [id number] Jan, [facility] [address] [facility] [id number] [address] [place] [address] Jan, [facility] [address] [id number] [address] [place] [id number] Dec, [facility] [address] [id number] [address] [place] [id number] Dec, Lumbago 724.2 ; Diabetes thony litus without mention of complication, type II or unspecified type, not stated as uncontrolled 250.00 ; Essential hypertension, benign 401.1 ; Anxiety state, unspecified 300.00 ; Chronic pain 338.29 ; COPD with acute exacerbation 491.21 ; Tobacco abuse 305.1 ; Depression 311 and Hyperlipidemia 272.4 [facility] [address] [id number] [address] [place] [id number] Dec, [facility] [address] [facility] [id number] [address] [place] [address] Nov, Lumbago 724.2 ; Diabetes thony litus without mention of complication, type II or unspecified type, not stated as uncontrolled 250.00 ; Essential hypertension, benign 401.1 ; Anxiety state, unspecified 300.00 ; Chronic pain 338.29 ; COPD with acute exacerbation 491.21 ; Tobacco abuse 305.1 and Depression 311 [facility] [address] [id number] [address] [place] [id number] Nov, [facility] [address] [id number] [address] [place] [id number] Nov, [facility] [address] [id number] [address] [place] [id number] Nov, [facility] [address] [id number] [address] [place] [phone] October, [facility] [address] [id number] [address] [place] [phone] October, [facility] [address] [id number] [address] [place] [id number] October, [facility] [address] [id number] [address] [place] [phone] October, [facility] [address] [id number] [address] [place] [id number] October, [facility] [address] [id number] [address] [place] [phone] Sep, [facility] [address] [facility] [id number] [address] [place] [phone] Sep, [facility] [address] [id number] [address] [place] [address], [place] [address] 13 Sep, 2014 [facility] [address] [id number] [address] [place] [address], [place] [address] 23 Aug, 2014 [facility] [address] [id number] [address] [place] [address], [place] [address] 23 Aug, 2014 [facility] [address] [id number] [address] [place] [address], [place] [address] 20 Aug, 2014 [facility] [address] [id number] [address] [place] [address], [place] [address] 20 Aug, 2014 [facility] [address] [id number] [address] [place] [address], [place] [address] 19 Aug, 2014 [facility] [address] [id number] [address] [place] [address], [place] [address] 19 Aug, 2014 [facility] [address] [id number] [address] [place] [address], [place] [address] 16 Aug, 2014 [facility] [address] [id number] [address] [place] [address], [place] [address] 16 Aug, 2014 [facility] [address] [id number] [address] [place] [address], [place] [address] 16 Aug, 2014 [facility] [address] [id number] [address] [place] [address], [place] [address] 16 Aug, 2014 [facility] [address] [id number] [address] [place] [address], [place] [address] 13 Aug, 2014 [facility] [address] [id number] [address] [place] [address], [place] [address] 13 Aug, 2014 [facility] [address] [id number] [address] [place] [address], [place] [address] 24 Jul, 2014 [facility] [address] [id number] [address] [place] [address], [place] [address] 23 Jul, 2014 [facility] [address] [id number] [address] [place] [address], [place] [address] Jul, [facility] [address] [id number] [address] [place] [address], [place] [address] Jul, [facility] [address] [id number] [address] [place] [address], [place] [address] Jul, [facility] [address] [id number] [address] [place] [address], [place] [address] Jul, [facility] [address] [id number] [address] [place] [address], [place] [address] Jul, [facility] [address] [id number] [address] [place] [address], [place] [address] Jun, [facility] [address] [id number] [address] [place] [address], [place] [address] Jun, [facility] [address] [id number] [address] [place] [address], [place] [address] Jun, [facility] [address] [id number] [address] [place] [address], [place] [address] Jun, [facility] [address] [id number] [address] [place] [address], [place] [address] Jun, [facility] [address] [id number] [address] [place] [address], [place] [address] Jun, [facility] [address] [id number] [address] [place] [address], [place] [address] Jun, [facility] [address] [id number] [address] [place] [address], [place] [address] Jun, [facility] [address] [id number] [address] [place] [address], [place] [address] Jun, [facility] [address] [id number] [address] [place] [address], [place] [address] May, [facility] [address] [id number] [address] [place] [address], [place] [address] May, [facility] [address] [id number] [address] [place] [address], [place] [address] 30 May, 2014 [facility] [address] [id number] [address] [place] [address], [place] [address] 30 May, 2014 [facility] [address] [id number] [address] [place] [address], [place] [address] 17 May, 2014 [facility] [address] [id number] [address] [place] [address], [place] [address] 15 May, 2014 [facility] [address] [id number] [address] [place] [address], [place] [address] 15 May, 2014 [facility] [address] [id number] [address] [place] [address], [place] [address] 12 May, 2014 [facility] [address] [id number] [address] [place] [address], [place] [address] May, [facility] [address] [id number] [address] [place] [address], [place] [address] May, [facility] [address] [id number] [address] [place] [address], [place] [address] May, [facility] [address] [id number] [address] [place] [address], [place] [address] Apr, [facility] [address] [id number] [address] [place] [address], [place] [address] Apr, [facility] [address] [id number] [address] [place] [address], [place] [address] Apr, [facility] [address] [id number] [address] [place] [address], [place] [address] Apr, [facility] [address] [id number] [address] [place] [address], [place] [address] 29 Mar, 2014 [facility] [address] [id number] [address] [place] [address], [place] [address] 29 Mar, 2014 [facility] [address] [id number] [address] [place] [address], [place] [address] Mar, [facility] [address] [id number] [address] [place] [address], [place] [address] 2014 [facility] [address] [id number] [address] [place] [address], [place] [address] Mar, [facility] [address] [id number] [address] [place] [address], [place] [address] Mar, [facility] [address] [id number] [address] [place] [address], [place] [address] 29 Feb, 2014 [facility] [address] [id number] [address] [place] [address], [place] [address] 29 Feb, 2014 [facility] [address] [id number] [address] [place] [address], [place] [address] 17 Feb, 2014 [facility] [address] [id number] [address] [place] [address], [place] [address] 16 Feb, 2014 [facility] [address] [id number] [address] [place] [address], [place] [address] 16 Feb, 2014 [facility] [address] [id number] [address] [place] [address], [place] [address] Feb, [facility] [address] [id number] [address] [place] [address], [place] [address] 03 Feb, 2014 [facility] [address] [id number] [address] [place] [address], [place] [address] Jan, [facility] [address] [id number] [address] [place] [address], [place] [address] Jan, [facility] [address] [id number] [address] [place] [address], [place] [address] Jan, [facility] [address] [id number] [address] [place] [address], [place] [address] Jan, [facility] [address] [id number] [address] [place] [address], [place] [address] Dec, [facility] [address] [id number] [place] [address] Dec, [facility] [address] [facility] [id number] [address] [place] [id number] Dec, [facility] [address] [facility] [id number] [address] [place] [id number] Dec, IMMUNIZATIONS No Known Immunizations SOCIAL HISTORY Never Assessed REASON FOR VISIT PLAN OF CARE VITAL SIGNS Height 68 in 2014-04-06 Weight 208 lbs 2014-04-06 Temperature 98 degrees Fahrenheit 2014-04-06 Heart Rate 92 bpm 2014-04-06 Respiratory Rate 18 2014-04-06 Blood pressure systolic 118 mmHg 2014-04-06 Blood pressure diastolic 76 mmHg 2014-04-06 MEDICATIONS Unknown Medications RESULTS No Results PROCEDURES [...]
--- OUTSIDE RECORDS SUMMARY | 2019-08-23 12:13 | XMS REPORT ---
Author Author RICOVeronica Ferrell ANGE Organization [facility] Address [address] [place] [address] Care Team Providers Care Procedure Manager Name Role Phone ANGE REYNOSO Unavailable PROBLEMS Type Condition ICD9-CM Code HZS56-DW Code Onset Dates Condition S tatus SNOMED Code Problem Bilateral low back pain without sciatica M54.5 Active 523281915 Problem Anxiety F41.9 Active 01645510 Problem Chronic pain syndrome G89.4 Active 692412140 Problem Thrush B37.0 Active 28479388 Problem Type 2 diabetes mellitus with complication E11.8 Active 83231772 Problem COPD with acute exacerbation J44.1 A ctive 703676730 Problem History of long-term use of multiple prescription drugs Z92.29 Active 832881424 Problem Essential hypertension I10 Active 31237708 Problem Mixed hyperlipidemia E78.2 Active 553629463 Problem Long-term use of high-risk medication Z79.899 Active 550500127 Problem Chronic obstructive pulmonary disease, unspecified COPD ty pe J44.9 Active 84441433 ALLERGIES No Information ENCOUNTERS Encounter Location Date Diagnosis [facility] [id number] [place] [phone] Nov, [facility] [id number] [place] [phone] October, Scabies B86 [facility] [address] [id number] [address] [place] [id number] October, Acute upper respiratory infe ction, unspecified J06.9 [facility] [address] [id number] [address] [place] [phone] October, Dysuria R30.0 and Coughing R 05 [facility] [id number] [place] [phone] Aug, [facility] [address] [id number] [address] [place] [phone] Jun, [facility] [address] [id number] [address] [place] [id number] Jun, [facility] [address] [id number] [address] [place] [phone] Jun, [facility] [address] [id number] [address] [place] [phone] May, [facility] [address] [id number] [address] [place] [phone] May, [facility] [address] [facility] [id number] [address] [place] [phone] May, [facility] [address] [facility] [id number] [address] [place] [phone] Apr, Type 2 diabetes mellitus wit h complication E11.8 ; Chronic pain syndrome G89.4 ; Bilateral low back pain without sciatica M54.5 ; Essential hypertension I10 ; Anxiety F41.9 ; COPD with acute exacerbation J44.1 ; Pain of left hand M79.642 and Pain in right hand M79.641 [facility] [address] [id number] [address] [place] [address] Apr, [facility] [address] [id number] [address] [place] [id number] Mar, [facility] [address] [id number] [address] [place] [phone] Mar, [facility] [address] [id number] [address] [place] [phone] Mar, [facility] [address] [facility] [id number] [address] [place] [phone] Feb, [facility] [address] [facility] [id number] [address] [place] [phone] Feb, [facility] [address] [id number] [address] [place] [phone] Jan, Type 2 diabetes mellitus wit h complication E11.8 ; Chronic pain syndrome G89.4 ; Bilateral low back pain without sciatica M54.5 ; Essential hypertension I10 ; Anxiety F41.9 ; Chronic obstructive pulmonary disease, unspecified COPD type J44.9 and Thrush B37.0 [facility] [address] [id number] [address] [place] [phone] Jan, [facility] [address] [id number] [address] [place] [phone] Dec, [facility] [address] [id number] [address] [place] [id number] Dec, [facility] [address] [id number] [address] [place] [phone] Nov, [facility] [address] [id number] [address] [place] [id number] Nov, [facility] [address] [id number] [address] [place] [phone] Nov, [facility] [address] [facility] [id number] [address] [place] [phone] Nov, Chest pain, unspecified type R07.9 and COPD exacerbation J44.1 [facility] [address] [id number] [address] [place] [phone] October, [facility] [address] [facility] [id number] [address] [place] [phone] Sep, [facility] [address] [id number] [address] [place] [phone] Sep, Type 2 diabetes mellitus wit h complication E11.8 ; Chronic pain syndrome G89.4 ; Bilateral low back pain without sciatica M54.5 ; Essential hypertension I10 ; Anxiety F41.9 and COPD exacerbation J44.1 [facility] [address] [facility] [id number] [address] [place] [phone] Aug, [facility] [address] [facility] [id number] [address] [place] [phone] Aug, [facility] [address] [facility] [id number] [address] [place] [phone] Aug, Chronic pain syndrome G89.4 [facility] [address] [facility] [id number] [address] [place] [phone] Aug, [facility] [id number] [place] [phone] Aug, [facility] [id number] [place] [address] Jul, Chronic pain syndrome G89.4 and Anxiety F41.9 [facility] [address] [id number] [address] [place] [phone] Jul, [facility] [address] [address] Jun, Bilateral low back pain with out sciatica M54.5 ; Chronic pain syndrome G89.4 ; Anxiety F41.9 ; History of long-term use of multiple prescription drugs Z92.29 ; Type 2 diabetes mellitus with complication E11.8 ; Long-term use of high-risk medication Z79.899 ; Mixed hyperlipidemia E78.2 and Essential hypertension I10 [facility] [address] [id number] [address] [place] [phone] Jun, [facility] [address] [id number] [address] [place] [phone] Jun, [facility] [address] [facility] [id number] [address] [place] [phone] May, [facility] [address] [id number] [address] [place] [phone] Apr, [facility] [address] [id number] [address] [place] [phone] Mar, [facility] [address] [id number] [address] [place] [address] Mar, Bilateral low back pain with out sciatica M54.5 ; History of long- term use of multiple prescription drugs Z92.29 ; Anxiety F41.9 ; Chronic pain syndrome G89.4 ; Type 2 diabetes mellitus with complication E11.8 ; Long-term use of high-risk medication Z79.899 and Mixed hyperlipidemia E78.2 [facility] [address] [id number] [address] [place] [phone] Mar, [facility] [address] [id number] [address] [place] [phone] Mar, Chronic pain syndrome G89.4 [facility] [address] [id number] [address] [place] [phone] Mar, [facility] [address] [id number] [address] [place] [phone] Feb, [facility] [address] [id number] [address] [place] [phone] Feb, [facility] [address] [id number] [address] [place] [phone] Feb, [facility] [address] [id number] [address] [place] [phone] Feb, [facility] [address] [id number] [address] [place] [phone] Jan, [facility] [address] [facility] [id number] [address] [place] [phone] Jan, [facility] [address] [id number] [address] [place] [phone] Dec, [facility] [address] [id number] [address] [place] [phone] Dec, Lumbago 724.2 ; Diabetes thony litus without mention of complication, type II or unspecified type, not stated as uncontrolled 250.00 ; Essential hypertension, benign 401.1 ; Anxiety state, unspecified 300.00 ; Chronic pain 338.29 ; COPD with acute exacerbation 491.21 ; Tobacco abuse 305.1 ; Depression 311 and Hyperlipidemia 272.4 [facility] [address] [id number] [address] [place] [phone] Dec, [facility] [address] [facility] [id number] [address] [place] [address] Nov, Lumbago 724.2 ; Diabetes thony litus without mention of complication, type II or unspecified type, not stated as uncontrolled 250.00 ; Essential hypertension, benign 401.1 ; Anxiety state, unspecified 300.00 ; Chronic pain 338.29 ; COPD with acute exacerbation 491.21 ; Tobacco abuse 305.1 and Depression 311 [facility] [address] [id number] [address] [place] [phone] Nov, [facility] [address] [id number] [address] [place] [phone] Nov, [facility] [address] [id number] [address] [place] [phone] Nov, [facility] [address] [id number] [address] [place] [phone] October, [facility] [address] [id number] [address] [place] [phone] October, [facility] [address] [id number] [address] [place] [phone] October, [facility] [address] [id number] [address] [place] [phone] October, [facility] [address] [id number] [address] [place] [phone] October, [facility] [address] [id number] [address] [place] [phone] Sep, [facility] [address] [facility] [id number] [address] [place] [phone] Sep, [facility] [address] [id number] [address] [place] [address], [place] [address] 13 Sep, 2014 [facility] [address] [id number] [address] [place] [address], [place] [address] 23 Aug, 2014 [facility] [address] [id number] [address] [place] [address], [place] [address] 23 Aug, 2014 [facility] [address] [id number] [address] [place] [address], [place] [address] 20 Aug, 2014 [facility] [address] [id number] [address] [place] [address], [place] [address] 20 Aug, 2014 [facility] [address] [id number] [address] [place] [address], [place] [address] 19 Aug, 2014 [facility] [address] [id number] [address] [place] [address], [place] [address] 19 Aug, 2014 [facility] [address] [id number] [address] [place] [address], [place] [address] 16 Aug, 2014 [facility] [address] [id number] [address] [place] [address], [place] [address] 16 Aug, 2014 [facility] [address] [id number] [address] [place] [address], [place] [address] 16 Aug, 2014 [facility] [address] [id number] [address] [place] [address], [place] [address] 16 Aug, 2014 [facility] [address] [id number] [address] [place] [address], [place] [address] 13 Aug, 2014 [facility] [address] [id number] [address] [place] [address], [place] [address] 13 Aug, 2014 [facility] [address] [id number] [address] [place] [address], [place] [address] 24 Jul, 2014 [facility] [address] [id number] [address] [place] [address], [place] [address] 23 Jul, 2014 [facility] [address] [id number] [address] [place] [address], [place] [address] Jul, [facility] [address] [id number] [address] [place] [address], [place] [address] Jul, [facility] [address] [id number] [address] [place] [address], [place] [address] Jul, [facility] [address] [id number] [address] [place] [address], [place] [address] Jul, [facility] [address] [id number] [address] [place] [address], [place] [address] Jul, [facility] [address] [id number] [address] [place] [address], [place] [address] Jun, [facility] [address] [id number] [address] [place] [address], [place] [address] Jun, [facility] [address] [id number] [address] [place] [address], [place] [address] Jun, [facility] [address] [id number] [address] [place] [address], [place] [address] Jun, [facility] [address] [id number] [address] [place] [address], [place] [address] Jun, [facility] [address] [id number] [address] [place] [address], [place] [address] Jun, [facility] [address] [id number] [address] [place] [address], [place] [address] Jun, [facility] [address] [id number] [address] [place] [address], [place] [address] Jun, [facility] [address] [id number] [address] [place] [address], [place] [address] Jun, [facility] [address] [id number] [address] [place] [address], [place] [address] May, [facility] [address] [id number] [address] [place] [address], [place] [address] May, [facility] [address] [id number] [address] [place] [address], [place] [address] 30 May, 2014 [facility] [address] [id number] [address] [place] [address], [place] [address] 30 May, 2014 [facility] [address] [id number] [address] [place] [address], [place] [address] 17 May, 2014 [facility] [address] [id number] [address] [place] [address], [place] [address] 15 May, 2014 [facility] [address] [id number] [address] [place] [address], [place] [address] 15 May, 2014 [facility] [address] [id number] [address] [place] [address], [place] [address] 12 May, 2014 [facility] [address] [id number] [address] [place] [address], [place] [address] May, [facility] [address] [id number] [address] [place] [address], [place] [address] May, [facility] [address] [id number] [address] [place] [address], [place] [address] May, [facility] [address] [id number] [address] [place] [address], [place] [address] Apr, [facility] [address] [id number] [address] [place] [address], [place] [address] Apr, [facility] [address] [id number] [address] [place] [address], [place] [address] Apr, [facility] [address] [id number] [address] [place] [address], [place] [address] Apr, [facility] [address] [id number] [address] [place] [address], [place] [address] 29 Mar, 2014 [facility] [address] [id number] [address] [place] [address], [place] [address] 29 Mar, 2014 [facility] [address] [id number] [address] [place] [address], [place] [address] Mar, [facility] [address] [id number] [address] [place] [address], [place] [address] 2014 [facility] [address] [id number] [address] [place] [address], [place] [address] Mar, [facility] [address] [id number] [address] [place] [address], [place] [address] Mar, [facility] [address] [id number] [address] [place] [address], [place] [address] 29 Feb, 2014 [facility] [address] [id number] [address] [place] [address], [place] [address] 29 Feb, 2014 [facility] [address] [id number] [address] [place] [address], [place] [address] 17 Feb, 2014 [facility] [address] [id number] [address] [place] [address], [place] [address] 16 Feb, 2014 [facility] [address] [id number] [address] [place] [address], [place] [address] 16 Feb, 2014 [facility] [address] [id number] [address] [place] [address], [place] [address] Feb, [facility] [address] [id number] [address] [place] [address], [place] [address] 03 Feb, 2014 [facility] [address] [id number] [address] [place] [address], [place] [address] Jan, [facility] [address] [id number] [address] [place] [address], [place] [address] Jan, [facility] [address] [id number] [address] [place] [address], [place] [address] Jan, [facility] [address] [id number] [address] [place] [address], [place] [address] Jan, [facility] [address] [id number] [address] [place] [address], [place] [address] Dec, [facility] [address] [id number] [address] [address] Dec, [facility] [address] [facility] [id number] [address] [place] [phone] Dec, [facility] [address] [facility] [id number] [address] [place] [address] Dec, IMMUNIZATIONS No Known Immunizations SOCIAL HISTORY [...]
--- OUTSIDE RECORDS SUMMARY | 2019-08-23 12:13 | XMS REPORT ---
Author Author RICOVeronica Ferrell ANGE Organization [facility] Address [address] [place] [address] Care Team Providers Care Credit Cashier Name Role Phone ANGE REYNOSO Unavailable PROBLEMS Type Condition ICD9-CM Code [id number] Code Onset Dates Condition S tatus SNOMED Code Problem Bilateral low back pain without sciatica M54.5 Active 908060719 Problem Anxiety F41.9 Active 84441432 Problem Chronic pain syndrome G89.4 Active 208922210 Problem Thrush B37.0 Active 40709109 Problem Type 2 diabetes mellitus with complication E11.8 Active 40167763 Problem COPD with acute exacerbation J44.1 A ctive 458154607 Problem History of long-term use of multiple prescription drugs Z92.29 Active 252430704 Problem Essential hypertension I10 Active 86578721 Problem Mixed hyperlipidemia E78.2 Active 358331031 Problem Long-term use of high-risk medication Z79.899 Active 368964373 Problem Chronic obstructive pulmonary disease, unspecified COPD ty pe J44.9 Active 02107018 ALLERGIES No Information ENCOUNTERS Encounter Location Date Diagnosis [facility] [address] [id number] [address] [place] [address] Nov, [facility] [address] [id number] [address] [place] [address] October, Scabies B86 [facility] [address] [id number] [address] [place] [address] October, Acute upper respiratory infe ction, unspecified J06.9 [facility] [address] [id number] [address] [place] [address] October, Dysuria R30.0 and Coughing R 05 [facility] [id number] [place] [address] Aug, [facility] [address] [id number] [address] [place] [address] Jun, [facility] [address] [id number] [address] [place] [address] Jun, [facility] [address] [id number] [address] [place] [address] Jun, [facility] [address] [id number] [address] [place] [address] May, [facility] [address] [id number] [address] [place] [id number] May, [facility] [address] [facility] [id number] [address] [place] [address] May, [facility] [address] [facility] [id number] [address] [place] [address] Apr, Type 2 diabetes mellitus wit h complication E11.8 ; Chronic pain syndrome G89.4 ; Bilateral low back pain without sciatica M54.5 ; Essential hypertension I10 ; Anxiety F41.9 ; COPD with acute exacerbation J44.1 ; Pain of left hand M79.642 and Pain in right hand M79.641 [facility] [address] [id number] [address] [place] [address] Apr, [facility] [address] [id number] [address] [place] [address] Mar, [facility] [address] [id number] [address] [place] [address] Mar, [facility] [address] [id number] [address] [place] [phone] Mar, [facility] [address] [facility] [id number] [address] [place] [address] Feb, [facility] [address] [facility] [id number] [address] [place] [address] Feb, [facility] [address] [id number] [address] [place] [address] Jan, Type 2 diabetes mellitus wit h complication E11.8 ; Chronic pain syndrome G89.4 ; Bilateral low back pain without sciatica M54.5 ; Essential hypertension I10 ; Anxiety F41.9 ; Chronic obstructive pulmonary disease, unspecified COPD type J44.9 and Thrush B37.0 [facility] [address] [id number] [address] [place] [address] Jan, [facility] [address] [id number] [address] [place] [phone] Dec, [facility] [address] [id number] [address] [place] [address] Dec, [facility] [address] [id number] [address] [place] [address] Nov, [facility] [address] [id number] [address] [place] [phone] Nov, [facility] [address] [id number] [address] [place] [address] Nov, [facility] [address] [facility] [id number] [address] [place] [address] Nov, Chest pain, unspecified type R07.9 and COPD exacerbation J44.1 [facility] [address] [id number] [address] [place] [phone] October, [facility] [address] [facility] [id number] [address] [place] [address] Sep, [facility] [address] [id number] [address] [place] [address] Sep, Type 2 diabetes mellitus wit h complication E11.8 ; Chronic pain syndrome G89.4 ; Bilateral low back pain without sciatica M54.5 ; Essential hypertension I10 ; Anxiety F41.9 and COPD exacerbation J44.1 [facility] [address] [facility] [id number] [address] [place] [phone] Aug, [facility] [address] [facility] [id number] [address] [place] [phone] Aug, [facility] [address] [facility] [id number] [address] [place] [phone] Aug, Chronic pain syndrome G89.4 [facility] [address] [facility] [id number] [address] [place] [phone] Aug, [facility] [id number] [place] [phone] Aug, [facility] [id number] [place] [address] Jul, Chronic pain syndrome G89.4 and Anxiety F41.9 [facility] [address] [id number] [address] [place] [address] Jul, [facility] [address] [address] Jun, Bilateral low back pain with out sciatica M54.5 ; Chronic pain syndrome G89.4 ; Anxiety F41.9 ; History of long-term use of multiple prescription drugs Z92.29 ; Type 2 diabetes mellitus with complication E11.8 ; Long-term use of high-risk medication Z79.899 ; Mixed hyperlipidemia E78.2 and Essential hypertension I10 [facility] [address] [id number] [address] [place] [address] Jun, [facility] [address] [id number] [address] [place] [phone] Jun, [facility] [address] [facility] [id number] [address] [place] [phone] May, [facility] [address] [id number] [address] [place] [address] Apr, [facility] [address] [id number] [address] [place] [address] Mar, [facility] [address] [id number] [address] [place] [address] Mar, Bilateral low back pain with out sciatica M54.5 ; History of long- term use of multiple prescription drugs Z92.29 ; Anxiety F41.9 ; Chronic pain syndrome G89.4 ; Type 2 diabetes mellitus with complication E11.8 ; Long-term use of high-risk medication Z79.899 and Mixed hyperlipidemia E78.2 [facility] [address] [id number] [address] [place] [phone] Mar, [facility] [address] [id number] [address] [place] [address] Mar, Chronic pain syndrome G89.4 [facility] [address] [id number] [address] [place] [address] Mar, [facility] [address] [id number] [address] [place] [id number] Feb, [facility] [address] [id number] [address] [place] [phone] Feb, [facility] [address] [id number] [address] [place] [phone] Feb, [facility] [address] [id number] [address] [place] [phone] Feb, [facility] [address] [id number] [address] [place] [address] Jan, [facility] [address] [facility] [id number] [address] [place] [phone] Jan, [facility] [address] [id number] [address] [place] [phone] Dec, [facility] [address] [id number] [address] [place] [address] Dec, Lumbago 724.2 ; Diabetes thony litus without mention of complication, type II or unspecified type, not stated as uncontrolled 250.00 ; Essential hypertension, benign 401.1 ; Anxiety state, unspecified 300.00 ; Chronic pain 338.29 ; COPD with acute exacerbation 491.21 ; Tobacco abuse 305.1 ; Depression 311 and Hyperlipidemia 272.4 [facility] [address] [id number] [address] [place] [phone] Dec, [facility] [address] [facility] [id number] [address] [place] [address] Nov, Lumbago 724.2 ; Diabetes thony litus without mention of complication, type II or unspecified type, not stated as uncontrolled 250.00 ; Essential hypertension, benign 401.1 ; Anxiety state, unspecified 300.00 ; Chronic pain 338.29 ; COPD with acute exacerbation 491.21 ; Tobacco abuse 305.1 and Depression 311 [facility] [address] [id number] [address] [place] [phone] Nov, [facility] [address] [id number] [address] [place] [phone] Nov, [facility] [address] [id number] [address] [place] [phone] Nov, [facility] [address] [id number] [address] [place] [phone] October, [facility] [address] [id number] [address] [place] [phone] October, [facility] [address] [id number] [address] [place] [phone] October, [facility] [address] [id number] [address] [place] [phone] October, [facility] [address] [id number] [address] [place] [phone] October, [facility] [address] [id number] [address] [place] [phone] Sep, [facility] [address] [facility] [id number] [address] [place] [phone] Sep, [facility] [address] [id number] [address] [place] [address], [place] [address] 13 Sep, 2014 [facility] [address] [id number] [address] [place] [address], [place] [address] 23 Aug, 2014 [facility] [address] [id number] [address] [place] [address], [place] [address] 23 Aug, 2014 [facility] [address] [id number] [address] [place] [address], [place] [address] 20 Aug, 2014 [facility] [address] [id number] [address] [place] [address], [place] [address] 20 Aug, 2014 [facility] [address] [id number] [address] [place] [address], [place] [address] 19 Aug, 2014 [facility] [address] [id number] [address] [place] [address], [place] [address] 19 Aug, 2014 [facility] [address] [id number] [address] [place] [address], [place] [address] 16 Aug, 2014 [facility] [address] [id number] [address] [place] [address], [place] [address] 16 Aug, 2014 [facility] [address] [id number] [address] [place] [address], [place] [address] 16 Aug, 2014 [facility] [address] [id number] [address] [place] [address], [place] [address] 16 Aug, 2014 [facility] [address] [id number] [address] [place] [address], [place] [address] 13 Aug, 2014 [facility] [address] [id number] [address] [place] [address], [place] [address] 13 Aug, 2014 [facility] [address] [id number] [address] [place] [address], [place] [address] 24 Jul, 2014 [facility] [address] [id number] [address] [place] [address], [place] [address] 23 Jul, 2014 [facility] [address] [id number] [address] [place] [address], [place] [address] Jul, [facility] [address] [id number] [address] [place] [address], [place] [address] Jul, [facility] [address] [id number] [address] [place] [address], [place] [address] Jul, [facility] [address] [id number] [address] [place] [address], [place] [address] Jul, [facility] [address] [id number] [address] [place] [address], [place] [address] Jul, [facility] [address] [id number] [address] [place] [address], [place] [address] Jun, [facility] [address] [id number] [address] [place] [address], [place] [address] Jun, [facility] [address] [id number] [address] [place] [address], [place] [address] Jun, [facility] [address] [id number] [address] [place] [address], [place] [address] Jun, [facility] [address] [id number] [address] [place] [address], [place] [address] Jun, [facility] [address] [id number] [address] [place] [address], [place] [address] Jun, [facility] [address] [id number] [address] [place] [address], [place] [address] Jun, [facility] [address] [id number] [address] [place] [address], [place] [address] Jun, [facility] [address] [id number] [address] [place] [address], [place] [address] Jun, [facility] [address] [id number] [address] [place] [address], [place] [address] May, [facility] [address] [id number] [address] [place] [address], [place] [address] May, [facility] [address] [id number] [address] [place] [address], [place] [address] 30 May, 2014 [facility] [address] [id number] [address] [place] [address], [place] [address] 30 May, 2014 [facility] [address] [id number] [address] [place] [address], [place] [address] 17 May, 2014 [facility] [address] [id number] [address] [place] [address], [place] [address] 15 May, 2014 [facility] [address] [id number] [address] [place] [address], [place] [address] 15 May, 2014 [facility] [address] [id number] [address] [place] [address], [place] [address] 12 May, 2014 [facility] [address] [id number] [address] [place] [address], [place] [address] May, [facility] [address] [id number] [address] [place] [address], [place] [address] May, [facility] [address] [id number] [address] [place] [address], [place] [address] May, [facility] [address] [id number] [address] [place] [address], [place] [address] Apr, [facility] [address] [id number] [address] [place] [address], [place] [address] Apr, [facility] [address] [id number] [address] [place] [address], [place] [address] Apr, [facility] [address] [id number] [address] [place] [address], [place] [address] Apr, [facility] [address] [id number] [address] [place] [address], [place] [address] 29 Mar, 2014 [facility] [address] [id number] [address] [place] [address], [place] [address] 29 Mar, 2014 [facility] [address] [id number] [address] [place] [address], [place] [address] Mar, [facility] [address] [id number] [address] [place] [address], [place] [address] 2014 [facility] [address] [id number] [address] [place] [address], [place] [address] Mar, [facility] [address] [id number] [address] [place] [address], [place] [address] Mar, [facility] [address] [id number] [address] [place] [address], [place] [address] 29 Feb, 2014 [facility] [address] [id number] [address] [place] [address], [place] [address] 29 Feb, 2014 [facility] [address] [id number] [address] [place] [address], [place] [address] 17 Feb, 2014 [facility] [address] [id number] [address] [place] [address], [place] [address] 16 Feb, 2014 [facility] [address] [id number] [address] [place] [address], [place] [address] 16 Feb, 2014 [facility] [address] [id number] [address] [place] [address], [place] [address] Feb, [facility] [address] [id number] [address] [place] [address], [place] [address] 03 Feb, 2014 [facility] [address] [id number] [address] [place] [address], [place] [address] Jan, [facility] [address] [id number] [address] [place] [address], [place] [address] Jan, [facility] [address] [id number] [address] [place] [address], [place] [address] Jan, [facility] [address] [id number] [address] [place] [address], [place] [address] Jan, [facility] [address] [id number] [address] [place] [address], [place] [address] Dec, [facility] [address] [id number] [address] [address] Dec, [facility] [address] [facility] [id number] [address] [place] [address] Dec, [facility] [address] [facility] [id number] [address] [place] [address] Dec, IMMUNIZATIONS No Known Immunizations SOCIAL HISTORY [...]
--- OUTSIDE RECORDS SUMMARY | 2019-08-23 12:13 | XMS REPORT ---
Author Author RICOVeronica Ferrell ANGE Organization [facility] Address [address] [place] [address] Care Team Providers Care Apprentice Funeral Director Name Role Phone ANGE REYNOSO Unavailable PROBLEMS Type Condition ICD9-CM Code VHY59-XB Code Onset Dates Condition S tatus SNOMED Code Problem Bilateral low back pain without sciatica M54.5 Active 411583441 Problem Anxiety F41.9 Active 98834808 Problem Chronic pain syndrome G89.4 Active 698845576 Problem Thrush B37.0 Active 27952937 Problem Type 2 diabetes mellitus with complication E11.8 Active 99482233 Problem COPD with acute exacerbation J44.1 A ctive 877092434 Problem History of long-term use of multiple prescription drugs Z92.29 Active 417150164 Problem Essential hypertension I10 Active 08234478 Problem Mixed hyperlipidemia E78.2 Active 046694818 Problem Long-term use of high-risk medication Z79.899 Active 088622555 Problem Chronic obstructive pulmonary disease, unspecified COPD ty pe J44.9 Active [id number] ALLERGIES No Information ENCOUNTERS Encounter Location Date Diagnosis [facility] [id number] [address] [place] [address] Nov, [facility] [address] [id number] [address] [place] [address] October, Scabies B86 [facility] [address] [id number] [address] [place] [address] October, Acute upper respiratory infe ction, unspecified J06.9 [facility] [address] [id number] [address] [place] [address] October, Dysuria R30.0 and Coughing R 05 [facility] [id number] [place] [address] Aug, [facility] [address] [id number] [address] [place] [address] Jun, [facility] [address] [id number] [address] [place] [address] Jun, [facility] [address] [id number] [address] [place] [address] Jun, [facility] [address] [id number] [address] [place] [address] May, [facility] [address] [id number] [address] [place] [address] May, [facility] [address] [facility] [id number] [address] [place] [address] May, [facility] [address] [facility] [id number] [address] [place] [address] Apr, Type 2 diabetes mellitus wit h complication E11.8 ; Chronic pain syndrome G89.4 ; Bilateral low back pain without sciatica M54.5 ; Essential hypertension I10 ; Anxiety F41.9 ; COPD with acute exacerbation J44.1 ; Pain of left hand M79.642 and Pain in right hand M79.641 [facility] [address] [id number] [address] [place] [address] Apr, [facility] [address] [id number] [address] [place] [address] Mar, [facility] [address] [id number] [address] [place] [address] Mar, [facility] [address] [id number] [address] [place] [address] Mar, [facility] [address] [facility] [id number] [address] [place] [address] Feb, [facility] [address] [facility] [id number] [address] [place] [address] Feb, [facility] [address] [id number] [address] [place] [address] Jan, Type 2 diabetes mellitus wit h complication E11.8 ; Chronic pain syndrome G89.4 ; Bilateral low back pain without sciatica M54.5 ; Essential hypertension I10 ; Anxiety F41.9 ; Chronic obstructive pulmonary disease, unspecified COPD type J44.9 and Thrush B37.0 [facility] [address] [id number] [address] [place] [address] Jan, [facility] [address] [id number] [address] [place] [address] Dec, [facility] [address] [id number] [address] [place] [address] Dec, [facility] [address] [id number] [address] [place] [address] Nov, [facility] [address] [id number] [address] [place] [address] Nov, [facility] [address] [id number] [address] [place] [address] Nov, [facility] [address] [facility] [id number] [address] [place] [address] Nov, Chest pain, unspecified type R07.9 and COPD exacerbation J44.1 [facility] [address] [id number] [address] [place] [address] October, [facility] [address] [facility] [id number] [address] [place] [address] Sep, [facility] [address] [id number] [address] [place] [address] Sep, Type 2 diabetes mellitus wit h complication E11.8 ; Chronic pain syndrome G89.4 ; Bilateral low back pain without sciatica M54.5 ; Essential hypertension I10 ; Anxiety F41.9 and COPD exacerbation J44.1 [facility] [address] [facility] [id number] [address] [place] [address] Aug, [facility] [address] [facility] [id number] [address] [place] [address] Aug, [facility] [address] [facility] [id number] [address] [place] [address] Aug, Chronic pain syndrome G89.4 [facility] [address] [facility] [id number] [address] [place] [address] Aug, [facility] [id number] [place] [address] Aug, [facility] [id number] [place] [address] Jul, Chronic pain syndrome G89.4 and Anxiety F41.9 [facility] [address] [id number] [address] [place] [address] Jul, [facility] [address] [address] Jun, Bilateral low back pain with out sciatica M54.5 ; Chronic pain syndrome G89.4 ; Anxiety F41.9 ; History of long-term use of multiple prescription drugs Z92.29 ; Type 2 diabetes mellitus with complication E11.8 ; Long-term use of high-risk medication Z79.899 ; Mixed hyperlipidemia E78.2 and Essential hypertension I10 [facility] [address] [id number] [address] [place] [address] Jun, [facility] [address] [id number] [address] [place] [address] Jun, [facility] [address] [facility] [id number] [address] [place] [address] May, [facility] [address] [id number] [address] [place] [address] Apr, [facility] [address] [id number] [address] [place] [address] Mar, [facility] [address] [id number] [address] [place] [address] Mar, Bilateral low back pain with out sciatica M54.5 ; History of long- term use of multiple prescription drugs Z92.29 ; Anxiety F41.9 ; Chronic pain syndrome G89.4 ; Type 2 diabetes mellitus with complication E11.8 ; Long-term use of high-risk medication Z79.899 and Mixed hyperlipidemia E78.2 [facility] [address] [id number] [address] [place] [address] Mar, [facility] [address] [id number] [address] [place] [address] Mar, Chronic pain syndrome G89.4 [facility] [address] [id number] [address] [place] [address] Mar, [facility] [address] [id number] [address] [place] [address] Feb, [facility] [address] [id number] [address] [place] [address] Feb, [facility] [address] [id number] [address] [place] [address] Feb, [facility] [address] [id number] [address] [place] [address] Feb, [facility] [address] [id number] [address] [place] [address] Jan, [facility] [address] [facility] [id number] [address] [place] [address] Jan, [facility] [address] [id number] [address] [place] [address] Dec, [facility] [address] [id number] [address] [place] [address] Dec, Lumbago 724.2 ; Diabetes thony litus without mention of complication, type II or unspecified type, not stated as uncontrolled 250.00 ; Essential hypertension, benign 401.1 ; Anxiety state, unspecified 300.00 ; Chronic pain 338.29 ; COPD with acute exacerbation 491.21 ; Tobacco abuse 305.1 ; Depression 311 and Hyperlipidemia 272.4 [facility] [address] [id number] [address] [place] [address] Dec, [facility] [address] [facility] [id number] [address] [place] [address] Nov, Lumbago 724.2 ; Diabetes thony litus without mention of complication, type II or unspecified type, not stated as uncontrolled 250.00 ; Essential hypertension, benign 401.1 ; Anxiety state, unspecified 300.00 ; Chronic pain 338.29 ; COPD with acute exacerbation 491.21 ; Tobacco abuse 305.1 and Depression 311 [facility] [address] [id number] [address] [place] [address] Nov, [facility] [address] [id number] [address] [place] [address] Nov, [facility] [address] [id number] [address] [place] [address] Nov, [facility] [address] [id number] [address] [place] [address] October, [facility] [address] [id number] [address] [place] [address] October, [facility] [address] [id number] [address] [place] [address] October, [facility] [address] [id number] [address] [place] [address] October, [facility] [address] [id number] [address] [place] [address] October, [facility] [address] [id number] [address] [place] [address] Sep, [facility] [address] [facility] [id number] [address] [place] [address] Sep, [facility] [address] [id number] [address] [place] [address], [place] [address] 13 Sep, 2014 [facility] [address] [id number] [address] [place] [address], [place] [address] 23 Aug, 2014 [facility] [address] [id number] [address] [place] [address], [place] [address] 23 Aug, 2014 [facility] [address] [id number] [address] [place] [address], [place] [address] 20 Aug, 2014 [facility] [address] [id number] [address] [place] [address], [place] [address] 20 Aug, 2014 [facility] [address] [id number] [address] [place] [address], [place] [address] 19 Aug, 2014 [facility] [address] [id number] [address] [place] [address], [place] [address] 19 Aug, 2014 [facility] [address] [id number] [address] [place] [address], [place] [address] 16 Aug, 2014 [facility] [address] [id number] [address] [place] [address], [place] [address] 16 Aug, 2014 [facility] [address] [id number] [address] [place] [address], [place] [address] 16 Aug, 2014 [facility] [address] [id number] [address] [place] [address], [place] [address] 16 Aug, 2014 [facility] [address] [id number] [address] [place] [address], [place] [address] 13 Aug, 2014 [facility] [address] [id number] [address] [place] [address], [place] [address] 13 Aug, 2014 [facility] [address] [id number] [address] [place] [address], [place] [address] 24 Jul, 2014 [facility] [address] [id number] [address] [place] [address], [place] [address] 23 Jul, 2014 [facility] [address] [id number] [address] [place] [address], [place] [address] Jul, [facility] [address] [id number] [address] [place] [address], [place] [address] Jul, [facility] [address] [id number] [address] [place] [address], [place] [address] Jul, [facility] [address] [id number] [address] [place] [address], [place] [address] Jul, [facility] [address] [id number] [address] [place] [address], [place] [address] Jul, [facility] [address] [id number] [address] [place] [address], [place] [address] Jun, [facility] [address] [id number] [address] [place] [address], [place] [address] Jun, [facility] [address] [id number] [address] [place] [address], [place] [address] Jun, [facility] [address] [id number] [address] [place] [address], [place] [address] Jun, [facility] [address] [id number] [address] [place] [address], [place] [address] Jun, [facility] [address] [id number] [address] [place] [address], [place] [address] Jun, [facility] [address] [id number] [address] [place] [address], [place] [address] Jun, [facility] [address] [id number] [address] [place] [address], [place] [address] Jun, [facility] [address] [id number] [address] [place] [address], [place] [address] Jun, [facility] [address] [id number] [address] [place] [address], [place] [address] May, [facility] [address] [id number] [address] [place] [address], [place] [address] May, [facility] [address] [id number] [address] [place] [address], [place] [address] 30 May, 2014 [facility] [address] [id number] [address] [place] [address], [place] [address] 30 May, 2014 [facility] [address] [id number] [address] [place] [address], [place] [address] 17 May, 2014 [facility] [address] [id number] [address] [place] [address], [place] [address] 15 May, 2014 [facility] [address] [id number] [address] [place] [address], [place] [address] 15 May, 2014 [facility] [address] [id number] [address] [place] [address], [place] [address] 12 May, 2014 [facility] [address] [id number] [address] [place] [address], [place] [address] May, [facility] [address] [id number] [address] [place] [address], [place] [address] May, [facility] [address] [id number] [address] [place] [address], [place] [address] May, [facility] [address] [id number] [address] [place] [address], [place] [address] Apr, [facility] [address] [id number] [address] [place] [address], [place] [address] Apr, [facility] [address] [id number] [address] [place] [address], [place] [address] Apr, [facility] [address] [id number] [address] [place] [address], [place] [address] Apr, [facility] [address] [id number] [address] [place] [address], [place] [address] 29 Mar, 2014 [facility] [address] [id number] [address] [place] [address], [place] [address] 29 Mar, 2014 [facility] [address] [id number] [address] [place] [address], [place] [address] Mar, [facility] [address] [id number] [address] [place] [address], [place] [address] 2014 [facility] [address] [id number] [address] [place] [address], [place] [address] Mar, [facility] [address] [id number] [address] [place] [address], [place] [address] Mar, [facility] [address] [id number] [address] [place] [address], [place] [address] 29 Feb, 2014 [facility] [address] [id number] [address] [place] [address], [place] [address] 29 Feb, 2014 [facility] [address] [id number] [address] [place] [address], [place] [address] 17 Feb, 2014 [facility] [address] [id number] [address] [place] [address], [place] [address] 16 Feb, 2014 [facility] [address] [id number] [address] [place] [address], [place] [address] 16 Feb, 2014 [facility] [address] [id number] [address] [place] [address], [place] [address] Feb, [facility] [address] [id number] [address] [place] [address], [place] [address] 03 Feb, 2014 [facility] [address] [id number] [address] [place] [address], [place] [address] Jan, [facility] [address] [id number] [address] [place] [address], [place] [address] Jan, [facility] [address] [id number] [address] [place] [address], [place] [address] Jan, [facility] [address] [id number] [address] [place] [address], [place] [address] Jan, [facility] [address] [id number] [address] [place] [address], [place] [address] Dec, [facility] [address] [id number] [address] [address] Dec, [facility] [address] [facility] [id number] [address] [place] [address] Dec, [facility] [address] [facility] [id number] [address] [place] [address] Dec, IMMUNIZATIONS No Known Immunizations SOCIAL HISTORY [...]
--- OUTSIDE RECORDS SUMMARY | 2019-08-23 12:14 | XMS REPORT ---
Author Author RICOVeronica Ferrell ANGE Organization [facility] Address [address] [place] [address] Care Team Providers Care Operations Forester Name Role Phone ANGE REYNOSO Unavailable PROBLEMS Type Condition ICD9-CM Code BRO85-SR Code Onset Dates Condition S tatus SNOMED Code Problem Bilateral low back pain without sciatica M54.5 Active 587133458 Problem Anxiety F41.9 Active 09572726 Problem Chronic pain syndrome G89.4 Active 066490252 Problem Thrush B37.0 Active 35402161 Problem Type 2 diabetes mellitus with complication E11.8 Active 07613220 Problem COPD with acute exacerbation J44.1 A ctive 776111869 Problem History of long-term use of multiple prescription drugs Z92.29 Active 504656037 Problem Essential hypertension I10 Active 98554069 Problem Mixed hyperlipidemia E78.2 Active 266693743 Problem Long-term use of high-risk medication Z79.899 Active 012593533 Problem Chronic obstructive pulmonary disease, unspecified COPD ty pe J44.9 Active 01795152 ALLERGIES No Information ENCOUNTERS Encounter Location Date Diagnosis [facility] [address] [id number] [address] [place] [phone] Nov, [facility] [address] [id number] [address] [place] [phone] October, Scabies B86 [facility] [address] [id number] [address] [place] [phone] October, Acute upper respiratory infe ction, unspecified J06.9 [facility] [address] [id number] [address] [place] [phone] October, Dysuria R30.0 and Coughing R 05 [facility] [id number] [place] [phone] Aug, [facility] [address] [id number] [address] [place] [phone] Jun, [facility] [address] [id number] [address] [place] [phone] Jun, [facility] [address] [id number] [address] [place] [phone] Jun, [facility] [address] [id number] [address] [place] [phone] May, [facility] [address] [id number] [address] [place] [phone] May, [facility] [address] [facility] [id number] [address] [place] [phone] May, [facility] [address] [facility] [id number] [address] [place] [phone] Apr, Type 2 diabetes mellitus wit h complication E11.8 ; Chronic pain syndrome G89.4 ; Bilateral low back pain without sciatica M54.5 ; Essential hypertension I10 ; Anxiety F41.9 ; COPD with acute exacerbation J44.1 ; Pain of left hand M79.642 and Pain in right hand M79.641 [facility] [address] [id number] [address] [place] [phone] Apr, [facility] [address] [id number] [address] [place] [phone] Mar, [facility] [address] [id number] [address] [place] [phone] Mar, [facility] [address] [id number] [address] [place] [phone] Mar, [facility] [address] [facility] [id number] [address] [place] [phone] Feb, [facility] [address] [facility] [id number] [address] [place] [phone] Feb, [facility] [address] [id number] [address] [place] [phone] Jan, Type 2 diabetes mellitus wit h complication E11.8 ; Chronic pain syndrome G89.4 ; Bilateral low back pain without sciatica M54.5 ; Essential hypertension I10 ; Anxiety F41.9 ; Chronic obstructive pulmonary disease, unspecified COPD type J44.9 and Thrush B37.0 [facility] [address] [id number] [address] [place] [phone] Jan, [facility] [address] [id number] [address] [place] [phone] Dec, [facility] [address] [id number] [address] [place] [phone] Dec, [facility] [address] [id number] [address] [place] [phone] Nov, [facility] [address] [id number] [address] [place] [phone] Nov, [facility] [address] [id number] [address] [place] [phone] Nov, [facility] [address] [facility] [id number] [address] [place] [phone] Nov, Chest pain, unspecified type R07.9 and COPD exacerbation J44.1 [facility] [address] [id number] [address] [place] [phone] October, [facility] [address] [facility] [id number] [address] [place] [phone] Sep, [facility] [address] [id number] [address] [place] [phone] Sep, Type 2 diabetes mellitus wit h complication E11.8 ; Chronic pain syndrome G89.4 ; Bilateral low back pain without sciatica M54.5 ; Essential hypertension I10 ; Anxiety F41.9 and COPD exacerbation J44.1 [facility] [address] [facility] [id number] [address] [place] [phone] Aug, [facility] [address] [facility] [id number] [address] [place] [phone] Aug, [facility] [address] [facility] [id number] [address] [place] [phone] Aug, Chronic pain syndrome G89.4 [facility] [address] [facility] [id number] [address] [place] [phone] Aug, [facility] [id number] [place] [phone] Aug, [facility] [id number] [place] [phone] Jul, Chronic pain syndrome G89.4 and Anxiety F41.9 [facility] [address] [id number] [address] [place] [phone] Jul, [facility] [address] [phone] Jun, Bilateral low back pain with out sciatica M54.5 ; Chronic pain syndrome G89.4 ; Anxiety F41.9 ; History of long-term use of multiple prescription drugs Z92.29 ; Type 2 diabetes mellitus with complication E11.8 ; Long-term use of high-risk medication Z79.899 ; Mixed hyperlipidemia E78.2 and Essential hypertension I10 [facility] [address] [id number] [address] [place] [phone] Jun, [facility] [address] [id number] [address] [place] [phone] Jun, [facility] [address] [facility] [id number] [address] [place] [phone] May, [facility] [address] [id number] [address] [place] [phone] Apr, [facility] [address] [id number] [address] [place] [phone] Mar, [facility] [address] [id number] [address] [place] [phone] Mar, Bilateral low back pain with out sciatica M54.5 ; History of long- term use of multiple prescription drugs Z92.29 ; Anxiety F41.9 ; Chronic pain syndrome G89.4 ; Type 2 diabetes mellitus with complication E11.8 ; Long-term use of high-risk medication Z79.899 and Mixed hyperlipidemia E78.2 [facility] [address] [id number] [address] [place] [phone] Mar, [facility] [address] [id number] [address] [place] [phone] Mar, Chronic pain syndrome G89.4 [facility] [address] [id number] [address] [place] [phone] Mar, [facility] [address] [id number] [address] [place] [phone] Feb, [facility] [address] [id number] [address] [place] [phone] Feb, [facility] [address] [id number] [address] [place] [phone] Feb, [facility] [address] [id number] [address] [place] [phone] Feb, [facility] [address] [id number] [address] [place] [phone] Jan, [facility] [address] [facility] [id number] [address] [place] [phone] Jan, [facility] [address] [id number] [address] [place] [phone] Dec, [facility] [address] [id number] [address] [place] [phone] Dec, Lumbago 724.2 ; Diabetes thony litus without mention of complication, type II or unspecified type, not stated as uncontrolled 250.00 ; Essential hypertension, benign 401.1 ; Anxiety state, unspecified 300.00 ; Chronic pain 338.29 ; COPD with acute exacerbation 491.21 ; Tobacco abuse 305.1 ; Depression 311 and Hyperlipidemia 272.4 [facility] [address] [id number] [address] [place] [phone] Dec, [facility] [address] [facility] [id number] [address] [place] [phone] Nov, Lumbago 724.2 ; Diabetes thony litus without mention of complication, type II or unspecified type, not stated as uncontrolled 250.00 ; Essential hypertension, benign 401.1 ; Anxiety state, unspecified 300.00 ; Chronic pain 338.29 ; COPD with acute exacerbation 491.21 ; Tobacco abuse 305.1 and Depression 311 [facility] [address] [id number] [address] [place] [phone] Nov, [facility] [address] [id number] [address] [place] [phone] Nov, [facility] [address] [id number] [address] [place] [phone] Nov, [facility] [address] [id number] [address] [place] [phone] October, [facility] [address] [id number] [address] [place] [phone] October, [facility] [address] [id number] [address] [place] [phone] October, [facility] [address] [id number] [address] [place] [phone] October, [facility] [address] [id number] [address] [place] [phone] October, [facility] [address] [id number] [address] [place] [phone] Sep, [facility] [address] [facility] [id number] [address] [place] [phone] Sep, [facility] [address] [id number] [address] [place] [address], [place] [id number] 13 Sep, 2014 [facility] [address] [id number] [address] [place] [address], [place] [id number] 23 Aug, 2014 [facility] [address] [id number] [address] [place] [address], [place] [id number] 23 Aug, 2014 [facility] [address] [id number] [address] [place] [address], [place] [id number] 20 Aug, 2014 [facility] [address] [id number] [address] [place] [address], [place] [id number] 20 Aug, 2014 [facility] [address] [id number] [address] [place] [address], [place] [id number] 19 Aug, 2014 [facility] [address] [id number] [address] [place] [address], [place] [id number] 19 Aug, 2014 [facility] [address] [id number] [address] [place] [address], [place] [id number] 16 Aug, 2014 [facility] [address] [id number] [address] [place] [address], [place] [id number] 16 Aug, 2014 [facility] [address] [id number] [address] [place] [address], [place] [id number] 16 Aug, 2014 [facility] [address] [id number] [address] [place] [address], [place] [id number] 16 Aug, 2014 [facility] [address] [id number] [address] [place] [address], [place] [id number] 13 Aug, 2014 [facility] [address] [id number] [address] [place] [address], [place] [id number] 13 Aug, 2014 [facility] [address] [id number] [address] [place] [address], [place] [id number] 24 Jul, 2014 [facility] [address] [id number] [address] [place] [address], [place] [id number] 23 Jul, 2014 [facility] [address] [id number] [address] [place] [address], [place] [id number] Jul, [facility] [address] [id number] [address] [place] [address], [place] [id number] Jul, [facility] [address] [id number] [address] [place] [address], [place] [id number] Jul, [facility] [address] [id number] [address] [place] [address], [place] [id number] Jul, [facility] [address] [id number] [address] [place] [address], [place] [address] Jul, [facility] [address] [id number] [address] [place] [address], [place] [id number] Jun, [facility] [address] [id number] [address] [place] [address], [place] [address] Jun, [facility] [address] [id number] [address] [place] [address], [place] [address] Jun, [facility] [address] [id number] [address] [place] [address], [place] [address] Jun, [facility] [address] [id number] [address] [place] [address], [place] [id number] Jun, [facility] [address] [id number] [address] [place] [address], [place] [id number] Jun, [facility] [address] [id number] [address] [place] [address], [place] [address] Jun, [facility] [address] [id number] [address] [place] [address], [place] [address] Jun, [facility] [address] [id number] [address] [place] [address], [place] [address] Jun, [facility] [address] [id number] [address] [place] [address], [place] [address] May, [facility] [address] [id number] [address] [place] [address], [place] [address] May, [facility] [address] [id number] [address] [place] [address], [place] [id number] 30 May, 2014 [facility] [address] [id number] [address] [place] [address], [place] [address] 30 May, 2014 [facility] [address] [id number] [address] [place] [address], [place] [address] 17 May, 2014 [facility] [address] [id number] [address] [place] [address], [place] [address] 15 May, 2014 [facility] [address] [id number] [address] [place] [address], [place] [address] 15 May, 2014 [facility] [address] [id number] [address] [place] [address], [place] [id number] 12 May, 2014 [facility] [address] [id number] [address] [place] [address], [place] [address] May, [facility] [address] [id number] [address] [place] [address], [place] [address] May, [facility] [address] [id number] [address] [place] [address], [place] [address] May, [facility] [address] [id number] [address] [place] [address], [place] [address] Apr, [facility] [address] [id number] [address] [place] [address], [place] [address] Apr, [facility] [address] [id number] [address] [place] [address], [place] [address] Apr, [facility] [address] [id number] [address] [place] [address], [place] [address] Apr, [facility] [address] [id number] [address] [place] [address], [place] [address] 29 Mar, 2014 [facility] [address] [id number] [address] [place] [address], [place] [address] 29 Mar, 2014 [facility] [address] [id number] [address] [place] [address], [place] [address] Mar, [facility] [address] [id number] [address] [place] [address], [place] [address] 2014 [facility] [address] [id number] [address] [place] [address], [place] [address] Mar, [facility] [address] [id number] [address] [place] [address], [place] [address] Mar, [facility] [address] [id number] [address] [place] [address], [place] [address] 29 Feb, 2014 [facility] [address] [id number] [address] [place] [address], [place] [address] 29 Feb, 2014 [facility] [address] [id number] [address] [place] [address], [place] [address] 17 Feb, 2014 [facility] [address] [id number] [address] [place] [address], [place] [address] 16 Feb, 2014 [facility] [address] [id number] [address] [place] [address], [place] [id number] 16 Feb, 2014 [facility] [address] [id number] [address] [place] [address], [place] [address] Feb, [facility] [address] [id number] [address] [place] [address], [place] [id number] 03 Feb, 2014 [facility] [address] [id number] [address] [place] [address], [place] [address] Jan, [facility] [address] [id number] [address] [place] [address], [place] [address] Jan, [facility] [address] [id number] [address] [place] [address], [place] [address] Jan, [facility] [address] [id number] [address] [place] [address], [place] [address] Jan, [facility] [address] [id number] [address] [place] [address], [place] [address] Dec, [facility] [address] [id number] [address] [place] [address] Dec, [facility] [address] [facility] [id number] [address] [place] [id number] Dec, [facility] [address] [facility] [id number] [address] [place] [id number] Dec, IMMUNIZATIONS No Known Immunizations SOCIAL HISTORY [...]
--- OUTSIDE RECORDS SUMMARY | 2019-08-23 12:14 | XMS REPORT ---
Author Author RICOVeronica Ferrell ANGE Organization [facility] Address [address] [place] [address] Care Team Providers Care Coach Name Role Phone ANGE REYNOSO Unavailable PROBLEMS Type Condition ICD9-CM Code CNO52-CW Code Onset Dates Condition S tatus SNOMED Code Problem Bilateral low back pain without sciatica M54.5 Active 153249563 Problem Anxiety F41.9 Active 26174894 Problem Chronic pain syndrome G89.4 Active 009942391 Problem Thrush B37.0 Active 23116901 Problem Type 2 diabetes mellitus with complication E11.8 Active 21107642 Problem COPD with acute exacerbation J44.1 A ctive 906141385 Problem History of long-term use of multiple prescription drugs Z92.29 Active 272032525 Problem Essential hypertension I10 Active 05352424 Problem Mixed hyperlipidemia E78.2 Active 346217493 Problem Long-term use of high-risk medication Z79.899 Active 411672316 Problem Chronic obstructive pulmonary disease, unspecified COPD ty pe J44.9 Active 20951801 ALLERGIES No Information ENCOUNTERS Encounter Location Date Diagnosis [facility] [address] [id number] [address] [place] [address] Nov, [facility] [address] [id number] [address] [place] [address] October, Scabies B86 [facility] [address] [id number] [address] [place] [address] October, Acute upper respiratory infe ction, unspecified J06.9 [facility] [address] [id number] [address] [place] [address] October, Dysuria R30.0 and Coughing R 05 [facility] [id number] [place] [address] Aug, [facility] [address] [id number] [address] [place] [address] Jun, [facility] [address] [id number] [address] [place] [address] Jun, [facility] [address] [id number] [address] [place] [address] Jun, [facility] [address] [id number] [address] [place] [address] May, [facility] [address] [id number] [address] [place] [address] May, [facility] [address] [facility] [id number] [address] [place] [address] May, [facility] [address] [facility] [id number] [address] [place] [address] Apr, Type 2 diabetes mellitus wit h complication E11.8 ; Chronic pain syndrome G89.4 ; Bilateral low back pain without sciatica M54.5 ; Essential hypertension I10 ; Anxiety F41.9 ; COPD with acute exacerbation J44.1 ; Pain of left hand M79.642 and Pain in right hand M79.641 [facility] [address] [id number] [address] [place] [address] Apr, [facility] [address] [id number] [address] [place] [address] Mar, [facility] [address] [id number] [address] [place] [address] Mar, [facility] [address] [id number] [address] [place] [address] Mar, [facility] [address] [facility] [id number] [address] [place] [address] Feb, [facility] [address] [facility] [id number] [address] [place] [address] Feb, [facility] [address] [id number] [address] [place] [address] Jan, Type 2 diabetes mellitus wit h complication E11.8 ; Chronic pain syndrome G89.4 ; Bilateral low back pain without sciatica M54.5 ; Essential hypertension I10 ; Anxiety F41.9 ; Chronic obstructive pulmonary disease, unspecified COPD type J44.9 and Thrush B37.0 [facility] [address] [id number] [address] [place] [address] Jan, [facility] [address] [id number] [address] [place] [address] Dec, [facility] [address] [id number] [address] [place] [address] Dec, [facility] [address] [id number] [address] [place] [address] Nov, [facility] [address] [id number] [address] [place] [address] Nov, [facility] [address] [id number] [address] [place] [address] Nov, [facility] [address] [facility] [id number] [address] [place] [address] Nov, Chest pain, unspecified type R07.9 and COPD exacerbation J44.1 [facility] [address] [id number] [address] [place] [address] October, [facility] [address] [facility] [id number] [address] [place] [address] Sep, [facility] [address] [id number] [address] [place] [address] Sep, Type 2 diabetes mellitus wit h complication E11.8 ; Chronic pain syndrome G89.4 ; Bilateral low back pain without sciatica M54.5 ; Essential hypertension I10 ; Anxiety F41.9 and COPD exacerbation J44.1 [facility] [address] [facility] [id number] [address] [place] [address] Aug, [facility] [address] [facility] [id number] [address] [place] [address] Aug, [facility] [address] [facility] [id number] [address] [place] [address] Aug, Chronic pain syndrome G89.4 [facility] [address] [facility] [id number] [address] [place] [address] Aug, [facility] [id number] [place] [address] Aug, [facility] [id number] [place] [address] Jul, Chronic pain syndrome G89.4 and Anxiety F41.9 [facility] [address] [id number] [address] [place] [address] Jul, [facility] [address] [address] Jun, Bilateral low back pain with out sciatica M54.5 ; Chronic pain syndrome G89.4 ; Anxiety F41.9 ; History of long-term use of multiple prescription drugs Z92.29 ; Type 2 diabetes mellitus with complication E11.8 ; Long-term use of high-risk medication Z79.899 ; Mixed hyperlipidemia E78.2 and Essential hypertension I10 [facility] [address] [id number] [address] [place] [address] Jun, [facility] [address] [id number] [address] [place] [address] Jun, [facility] [address] [facility] [id number] [address] [place] [address] May, [facility] [address] [id number] [address] [place] [phone] Apr, [facility] [address] [id number] [address] [place] [address] Mar, [facility] [address] [id number] [address] [place] [address] Mar, Bilateral low back pain with out sciatica M54.5 ; History of long- term use of multiple prescription drugs Z92.29 ; Anxiety F41.9 ; Chronic pain syndrome G89.4 ; Type 2 diabetes mellitus with complication E11.8 ; Long-term use of high-risk medication Z79.899 and Mixed hyperlipidemia E78.2 [facility] [address] [id number] [address] [place] [address] Mar, [facility] [address] [id number] [address] [place] [address] Mar, Chronic pain syndrome G89.4 [facility] [address] [id number] [address] [place] [address] Mar, [facility] [address] [id number] [address] [place] [address] Feb, [facility] [address] [id number] [address] [place] [address] Feb, [facility] [address] [id number] [address] [place] [address] Feb, [facility] [address] [id number] [address] [place] [phone] Feb, [facility] [address] [id number] [address] [place] [address] Jan, [facility] [address] [facility] [id number] [address] [place] [address] Jan, [facility] [address] [id number] [address] [place] [phone] Dec, [facility] [address] [id number] [address] [place] [address] Dec, Lumbago 724.2 ; Diabetes thony litus without mention of complication, type II or unspecified type, not stated as uncontrolled 250.00 ; Essential hypertension, benign 401.1 ; Anxiety state, unspecified 300.00 ; Chronic pain 338.29 ; COPD with acute exacerbation 491.21 ; Tobacco abuse 305.1 ; Depression 311 and Hyperlipidemia 272.4 [facility] [address] [id number] [address] [place] [address] Dec, [facility] [address] [facility] [id number] [address] [place] [address] Nov, Lumbago 724.2 ; Diabetes thony litus without mention of complication, type II or unspecified type, not stated as uncontrolled 250.00 ; Essential hypertension, benign 401.1 ; Anxiety state, unspecified 300.00 ; Chronic pain 338.29 ; COPD with acute exacerbation 491.21 ; Tobacco abuse 305.1 and Depression 311 [facility] [address] [id number] [address] [place] [phone] Nov, [facility] [address] [id number] [address] [place] [address] Nov, [facility] [address] [id number] [address] [place] [address] Nov, [facility] [address] [id number] [address] [place] [address] October, [facility] [address] [id number] [address] [place] [phone] October, [facility] [address] [id number] [address] [place] [phone] October, [facility] [address] [id number] [address] [place] [phone] October, [facility] [address] [id number] [address] [place] [phone] October, [facility] [address] [id number] [address] [place] [phone] Sep, [facility] [address] [facility] [id number] [address] [place] [phone] Sep, [facility] [address] [id number] [address] [place] [address], [place] [address] 13 Sep, 2014 [facility] [address] [id number] [address] [place] [address], [place] [address] 23 Aug, 2014 [facility] [address] [id number] [address] [place] [address], [place] [address] 23 Aug, 2014 [facility] [address] [id number] [address] [place] [address], [place] [address] 20 Aug, 2014 [facility] [address] [id number] [address] [place] [address], [place] [address] 20 Aug, 2014 [facility] [address] [id number] [address] [place] [address], [place] [address] 19 Aug, 2014 [facility] [address] [id number] [address] [place] [address], [place] [address] 19 Aug, 2014 [facility] [address] [id number] [address] [place] [address], [place] [address] 16 Aug, 2014 [facility] [address] [id number] [address] [place] [address], [place] [address] 16 Aug, 2014 [facility] [address] [id number] [address] [place] [address], [place] [address] 16 Aug, 2014 [facility] [address] [id number] [address] [place] [address], [place] [address] 16 Aug, 2014 [facility] [address] [id number] [address] [place] [address], [place] [address] 13 Aug, 2014 [facility] [address] [id number] [address] [place] [address], [place] [address] 13 Aug, 2014 [facility] [address] [id number] [address] [place] [address], [place] [address] 24 Jul, 2014 [facility] [address] [id number] [address] [place] [address], [place] [address] 23 Jul, 2014 [facility] [address] [id number] [address] [place] [address], [place] [address] Jul, [facility] [address] [id number] [address] [place] [address], [place] [address] Jul, [facility] [address] [id number] [address] [place] [address], [place] [address] Jul, [facility] [address] [id number] [address] [place] [address], [place] [address] Jul, [facility] [address] [id number] [address] [place] [address], [place] [address] Jul, [facility] [address] [id number] [address] [place] [address], [place] [address] Jun, [facility] [address] [id number] [address] [place] [address], [place] [address] Jun, [facility] [address] [id number] [address] [place] [address], [place] [address] Jun, [facility] [address] [id number] [address] [place] [address], [place] [address] Jun, [facility] [address] [id number] [address] [place] [address], [place] [address] Jun, [facility] [address] [id number] [address] [place] [address], [place] [address] Jun, [facility] [address] [id number] [address] [place] [address], [place] [address] Jun, [facility] [address] [id number] [address] [place] [address], [place] [address] Jun, [facility] [address] [id number] [address] [place] [address], [place] [address] Jun, [facility] [address] [id number] [address] [place] [address], [place] [address] May, [facility] [address] [id number] [address] [place] [address], [place] [address] May, [facility] [address] [id number] [address] [place] [address], [place] [address] 30 May, 2014 [facility] [address] [id number] [address] [place] [address], [place] [address] 30 May, 2014 [facility] [address] [id number] [address] [place] [address], [place] [address] 17 May, 2014 [facility] [address] [id number] [address] [place] [address], [place] [address] 15 May, 2014 [facility] [address] [id number] [address] [place] [address], [place] [address] 15 May, 2014 [facility] [address] [id number] [address] [place] [address], [place] [address] 12 May, 2014 [facility] [address] [id number] [address] [place] [address], [place] [address] May, [facility] [address] [id number] [address] [place] [address], [place] [address] May, [facility] [address] [id number] [address] [place] [address], [place] [address] May, [facility] [address] [id number] [address] [place] [address], [place] [address] Apr, [facility] [address] [id number] [address] [place] [address], [place] [address] Apr, [facility] [address] [id number] [address] [place] [address], [place] [address] Apr, [facility] [address] [id number] [address] [place] [address], [place] [address] Apr, [facility] [address] [id number] [address] [place] [address], [place] [address] 29 Mar, 2014 [facility] [address] [id number] [address] [place] [address], [place] [address] 29 Mar, 2014 [facility] [address] [id number] [address] [place] [address], [place] [address] Mar, [facility] [address] [id number] [address] [place] [address], [place] [address] 2014 [facility] [address] [id number] [address] [place] [address], [place] [address] Mar, [facility] [address] [id number] [address] [place] [address], [place] [address] Mar, [facility] [address] [id number] [address] [place] [address], [place] [address] 29 Feb, 2014 [facility] [address] [id number] [address] [place] [address], [place] [address] 29 Feb, 2014 [facility] [address] [id number] [address] [place] [address], [place] [address] 17 Feb, 2014 [facility] [address] [id number] [address] [place] [address], [place] [address] 16 Feb, 2014 [facility] [address] [id number] [address] [place] [address], [place] [address] 16 Feb, 2014 [facility] [address] [id number] [address] [place] [address], [place] [address] Feb, [facility] [address] [id number] [address] [place] [address], [place] [address] 03 Feb, 2014 [facility] [address] [id number] [address] [place] [address], [place] [address] Jan, [facility] [address] [id number] [address] [place] [address], [place] [address] Jan, [facility] [address] [id number] [address] [place] [address], [place] [address] Jan, [facility] [address] [id number] [address] [place] [address], [place] [address] Jan, [facility] [address] [id number] [address] [place] [address], [place] [address] Dec, [facility] [address] [id number] [address] [address] Dec, [facility] [address] [facility] [id number] [address] [place] [address] Dec, [facility] [address] [facility] [id number] [address] [place] [address] Dec, IMMUNIZATIONS No Known Immunizations SOCIAL HISTORY Never Assessed REASON FOR VISIT PLAN OF CARE VITAL SIGNS Height 68 in 2014-09-03 Weight 211.01 lbs 2014-09-03 Temperature 97.1 degrees Fahrenheit 2014-09-03 Blood pressure systolic 116 mmHg 2014-09-03 Blood pressure diastolic 70 mmHg 2014-09-03 MEDICATIONS Unknown Medications RESULTS No Results PROCEDURES Procedure Date Ordered Result Body Site GLYCATED HEMOGLOBIN TEST September 03, 2014 COMPREHEN METABOLIC PANEL September 03, 2014 X-RAY EXAM OF KNEE, 1 OR 2 September 03, 2014 VENIPUNCT, ROUTINE* September 03, 2014 INSTRUCTIONS MEDICATIONS ADMINISTERED No Known [...]
--- OUTSIDE RECORDS SUMMARY | 2019-08-23 12:14 | XMS REPORT ---
Author Author RICOVeronica Ferrell ANGE Organization [facility] Address [address] [place] [address] Care Team Providers Care Manager Acquisition Name Role Phone ANGE REYNOSO Unavailable PROBLEMS Type Condition ICD9-CM Code GRI98-LW Code Onset Dates Condition S tatus SNOMED Code Problem Bilateral low back pain without sciatica M54.5 Active 298583457 Problem Anxiety F41.9 Active 89085038 Problem Chronic pain syndrome G89.4 Active 652664816 Problem Thrush B37.0 Active 12077499 Problem Type 2 diabetes mellitus with complication E11.8 Active 54802107 Problem COPD with acute exacerbation J44.1 A ctive 046513963 Problem History of long-term use of multiple prescription drugs Z92.29 Active 343030741 Problem Essential hypertension I10 Active 04010122 Problem Mixed hyperlipidemia E78.2 Active 824614835 Problem Long-term use of high-risk medication Z79.899 Active 927745736 Problem Chronic obstructive pulmonary disease, unspecified COPD ty pe J44.9 Active 19339373 ALLERGIES No Information ENCOUNTERS Encounter Location Date Diagnosis [facility] [address] [id number] [address] [place] [address] Nov, [facility] [address] [id number] [address] [place] [address] October, Scabies B86 [facility] [address] [id number] [address] [place] [address] October, Acute upper respiratory infe ction, unspecified J06.9 [facility] [address] [id number] [address] [place] [address] October, Dysuria R30.0 and Coughing R 05 [facility] [id number] [place] [address] Aug, [facility] [address] [id number] [address] [place] [address] Jun, [facility] [address] [id number] [address] [place] [address] Jun, [facility] [address] [id number] [address] [place] [address] Jun, [facility] [address] [id number] [address] [place] [address] May, [facility] [address] [id number] [address] [place] [address] May, [facility] [address] [facility] [id number] [address] [place] [address] May, [facility] [address] [facility] [id number] [address] [place] [address] Apr, Type 2 diabetes mellitus wit h complication E11.8 ; Chronic pain syndrome G89.4 ; Bilateral low back pain without sciatica M54.5 ; Essential hypertension I10 ; Anxiety F41.9 ; COPD with acute exacerbation J44.1 ; Pain of left hand M79.642 and Pain in right hand M79.641 [facility] [address] [id number] [address] [place] [address] Apr, [facility] [address] [id number] [address] [place] [address] Mar, [facility] [address] [id number] [address] [place] [address] Mar, [facility] [address] [id number] [address] [place] [address] Mar, [facility] [address] [facility] [id number] [address] [place] [address] Feb, [facility] [address] [facility] [id number] [address] [place] [phone] Feb, [facility] [address] [id number] [address] [place] [address] Jan, Type 2 diabetes mellitus wit h complication E11.8 ; Chronic pain syndrome G89.4 ; Bilateral low back pain without sciatica M54.5 ; Essential hypertension I10 ; Anxiety F41.9 ; Chronic obstructive pulmonary disease, unspecified COPD type J44.9 and Thrush B37.0 [facility] [address] [id number] [address] [place] [address] Jan, [facility] [address] [id number] [address] [place] [address] Dec, [facility] [address] [id number] [address] [place] [address] Dec, [facility] [address] [id number] [address] [place] [address] Nov, [facility] [address] [id number] [address] [place] [address] Nov, [facility] [address] [id number] [address] [place] [address] Nov, [facility] [address] [facility] [id number] [address] [place] [address] Nov, Chest pain, unspecified type R07.9 and COPD exacerbation J44.1 [facility] [address] [id number] [address] [place] [address] October, [facility] [address] [facility] [id number] [address] [place] [address] Sep, [facility] [address] [id number] [address] [place] [address] Sep, Type 2 diabetes mellitus wit h complication E11.8 ; Chronic pain syndrome G89.4 ; Bilateral low back pain without sciatica M54.5 ; Essential hypertension I10 ; Anxiety F41.9 and COPD exacerbation J44.1 [facility] [address] [facility] [id number] [address] [place] [address] Aug, [facility] [address] [facility] [id number] [address] [place] [address] Aug, [facility] [address] [facility] [id number] [address] [place] [address] Aug, Chronic pain syndrome G89.4 [facility] [address] [facility] [id number] [address] [place] [address] Aug, [facility] [id number] [place] [address] Aug, [facility] [id number] [place] [address] Jul, Chronic pain syndrome G89.4 and Anxiety F41.9 [facility] [address] [id number] [address] [place] [address] Jul, [facility] [address] [address] Jun, Bilateral low back pain with out sciatica M54.5 ; Chronic pain syndrome G89.4 ; Anxiety F41.9 ; History of long-term use of multiple prescription drugs Z92.29 ; Type 2 diabetes mellitus with complication E11.8 ; Long-term use of high-risk medication Z79.899 ; Mixed hyperlipidemia E78.2 and Essential hypertension I10 [facility] [address] [id number] [address] [place] [address] Jun, [facility] [address] [id number] [address] [place] [address] Jun, [facility] [address] [facility] [id number] [address] [place] [address] May, [facility] [address] [id number] [address] [place] [address] Apr, [facility] [address] [id number] [address] [place] [address] Mar, [facility] [address] [id number] [address] [place] [address] Mar, Bilateral low back pain with out sciatica M54.5 ; History of long- term use of multiple prescription drugs Z92.29 ; Anxiety F41.9 ; Chronic pain syndrome G89.4 ; Type 2 diabetes mellitus with complication E11.8 ; Long-term use of high-risk medication Z79.899 and Mixed hyperlipidemia E78.2 [facility] [address] [id number] [address] [place] [address] Mar, [facility] [address] [id number] [address] [place] [address] Mar, Chronic pain syndrome G89.4 [facility] [address] [id number] [address] [place] [address] Mar, [facility] [address] [id number] [address] [place] [address] Feb, [facility] [address] [id number] [address] [place] [address] Feb, [facility] [address] [id number] [address] [place] [address] Feb, [facility] [address] [id number] [address] [place] [address] Feb, [facility] [address] [id number] [address] [place] [address] Jan, [facility] [address] [facility] [id number] [address] [place] [address] Jan, [facility] [address] [id number] [address] [place] [address] Dec, [facility] [address] [id number] [address] [place] [address] Dec, Lumbago 724.2 ; Diabetes thony litus without mention of complication, type II or unspecified type, not stated as uncontrolled 250.00 ; Essential hypertension, benign 401.1 ; Anxiety state, unspecified 300.00 ; Chronic pain 338.29 ; COPD with acute exacerbation 491.21 ; Tobacco abuse 305.1 ; Depression 311 and Hyperlipidemia 272.4 [facility] [address] [id number] [address] [place] [address] Dec, [facility] [address] [facility] [id number] [address] [place] [address] Nov, Lumbago 724.2 ; Diabetes thony litus without mention of complication, type II or unspecified type, not stated as uncontrolled 250.00 ; Essential hypertension, benign 401.1 ; Anxiety state, unspecified 300.00 ; Chronic pain 338.29 ; COPD with acute exacerbation 491.21 ; Tobacco abuse 305.1 and Depression 311 [facility] [address] [id number] [address] [place] [address] Nov, [facility] [address] [id number] [address] [place] [address] Nov, [facility] [address] [id number] [address] [place] [address] Nov, [facility] [address] [id number] [address] [place] [address] October, [facility] [address] [id number] [address] [place] [address] October, [facility] [address] [id number] [address] [place] [address] October, [facility] [address] [id number] [address] [place] [address] October, [facility] [address] [id number] [address] [place] [address] October, [facility] [address] [id number] [address] [place] [address] Sep, [facility] [address] [facility] [id number] [address] [place] [address] Sep, [facility] [address] [id number] [address] [place] [address], [place] [address] 13 Sep, 2014 [facility] [address] [id number] [address] [place] [address], [place] [address] 23 Aug, 2014 [facility] [address] [id number] [address] [place] [address], [place] [address] 23 Aug, 2014 [facility] [address] [id number] [address] [place] [address], [place] [address] 20 Aug, 2014 [facility] [address] [id number] [address] [place] [address], [place] [address] 20 Aug, 2014 [facility] [address] [id number] [address] [place] [address], [place] [address] 19 Aug, 2014 [facility] [address] [id number] [address] [place] [address], [place] [address] 19 Aug, 2014 [facility] [address] [id number] [address] [place] [address], [place] [address] 16 Aug, 2014 [facility] [address] [id number] [address] [place] [address], [place] [address] 16 Aug, 2014 [facility] [address] [id number] [address] [place] [address], [place] [address] 16 Aug, 2014 [facility] [address] [id number] [address] [place] [address], [place] [address] 16 Aug, 2014 [facility] [address] [id number] [address] [place] [address], [place] [address] 13 Aug, 2014 [facility] [address] [id number] [address] [place] [address], [place] [address] 13 Aug, 2014 [facility] [address] [id number] [address] [place] [address], [place] [address] 24 Jul, 2014 [facility] [address] [id number] [address] [place] [address], [place] [address] 23 Jul, 2014 [facility] [address] [id number] [address] [place] [address], [place] [address] Jul, [facility] [address] [id number] [address] [place] [address], [place] [address] Jul, [facility] [address] [id number] [address] [place] [address], [place] [address] Jul, [facility] [address] [id number] [address] [place] [address], [place] [address] Jul, [facility] [address] [id number] [address] [place] [address], [place] [address] Jul, [facility] [address] [id number] [address] [place] [address], [place] [address] Jun, [facility] [address] [id number] [address] [place] [address], [place] [address] Jun, [facility] [address] [id number] [address] [place] [address], [place] [address] Jun, [facility] [address] [id number] [address] [place] [address], [place] [address] Jun, [facility] [address] [id number] [address] [place] [address], [place] [address] Jun, [facility] [address] [id number] [address] [place] [address], [place] [address] Jun, [facility] [address] [id number] [address] [place] [address], [place] [address] Jun, [facility] [address] [id number] [address] [place] [address], [place] [address] Jun, [facility] [address] [id number] [address] [place] [address], [place] [address] Jun, [facility] [address] [id number] [address] [place] [address], [place] [address] May, [facility] [address] [id number] [address] [place] [address], [place] [address] May, [facility] [address] [id number] [address] [place] [address], [place] [address] 30 May, 2014 [facility] [address] [id number] [address] [place] [address], [place] [address] 30 May, 2014 [facility] [address] [id number] [address] [place] [address], [place] [address] 17 May, 2014 [facility] [address] [id number] [address] [place] [address], [place] [address] 15 May, 2014 [facility] [address] [id number] [address] [place] [address], [place] [address] 15 May, 2014 [facility] [address] [id number] [address] [place] [address], [place] [address] 12 May, 2014 [facility] [address] [id number] [address] [place] [address], [place] [address] May, [facility] [address] [id number] [address] [place] [address], [place] [address] May, [facility] [address] [id number] [address] [place] [address], [place] [address] May, [facility] [address] [id number] [address] [place] [address], [place] [address] Apr, [facility] [address] [id number] [address] [place] [address], [place] [address] Apr, [facility] [address] [id number] [address] [place] [address], [place] [address] Apr, [facility] [address] [id number] [address] [place] [address], [place] [address] Apr, [facility] [address] [id number] [address] [place] [address], [place] [address] 29 Mar, 2014 [facility] [address] [id number] [address] [place] [address], [place] [address] 29 Mar, 2014 [facility] [address] [id number] [address] [place] [address], [place] [address] Mar, [facility] [address] [id number] [address] [place] [address], [place] [address] 2014 [facility] [address] [id number] [address] [place] [address], [place] [address] Mar, [facility] [address] [id number] [address] [place] [address], [place] [address] Mar, [facility] [address] [id number] [address] [place] [address], [place] [address] 29 Feb, 2014 [facility] [address] [id number] [address] [place] [address], [place] [address] 29 Feb, 2014 [facility] [address] [id number] [address] [place] [address], [place] [address] 17 Feb, 2014 [facility] [address] [id number] [address] [place] [address], [place] [address] 16 Feb, 2014 [facility] [address] [id number] [address] [place] [address], [place] [address] 16 Feb, 2014 [facility] [address] [id number] [address] [place] [address], [place] [address] Feb, [facility] [address] [id number] [address] [place] [address], [place] [address] 03 Feb, 2014 [facility] [address] [id number] [address] [place] [address], [place] [address] Jan, [facility] [address] [id number] [address] [place] [address], [place] [address] Jan, [facility] [address] [id number] [address] [place] [address], [place] [address] Jan, [facility] [address] [id number] [address] [place] [address], [place] [address] Jan, [facility] [address] [id number] [address] [place] [address], [place] [address] Dec, [facility] [address] [id number] [address] [address] Dec, [facility] [address] [facility] [id number] [address] [place] [address] Dec, [facility] [address] [facility] [id number] [address] [place] [address] Dec, IMMUNIZATIONS No Known Immunizations SOCIAL HISTORY [...]
--- OUTSIDE RECORDS SUMMARY | 2019-08-23 12:14 | XMS REPORT ---
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 Name Role Phone ANGE REYNOSO Unavailable PROBLEMS Type Condition ICD9-CM Code QSX14-GI Code Onset Dates Condition S tatus SNOMED Code Problem Bilateral low back pain without sciatica M54.5 Active 051770287 Problem Anxiety F41.9 Active 76716884 Problem Chronic pain syndrome G89.4 Active 496090407 Problem Thrush B37.0 Active 51908306 Problem Type 2 diabetes mellitus with complication E11.8 Active 42094427 Problem COPD with acute exacerbation J44.1 A ctive 967939540 Problem History of long-term use of multiple prescription drugs Z92.29 Active 436283673 Problem Essential hypertension I10 Active 06501174 Problem Mixed hyperlipidemia E78.2 Active 499518601 Problem Long-term use of high-risk medication Z79.899 Active 164023232 Problem Chronic obstructive pulmonary disease, unspecified COPD ty pe J44.9 Active 00416752 ALLERGIES No Information ENCOUNTERS Encounter Location Date Diagnosis [facility] [address] [id number] [address] [place] [address] Nov, [facility] [address] [id number] [address] [place] [address] October, Scabies B86 [facility] [address] [id number] [address] [place] [address] October, Acute upper respiratory infe ction, unspecified J06.9 [facility] [address] [id number] [address] [place] [address] October, Dysuria R30.0 and Coughing R 05 [facility] [id number] [place] [address] Aug, [facility] [address] [id number] [address] [place] [address] Jun, [facility] [address] [id number] [address] [place] [address] Jun, [facility] [address] [id number] [address] [place] [address] Jun, [facility] [address] [id number] [address] [place] [address] May, [facility] [address] [id number] [address] [place] [address] May, [facility] [address] [facility] [id number] [address] [place] [address] May, [facility] [address] [facility] [id number] [address] [place] [address] Apr, Type 2 diabetes mellitus wit h complication E11.8 ; Chronic pain syndrome G89.4 ; Bilateral low back pain without sciatica M54.5 ; Essential hypertension I10 ; Anxiety F41.9 ; COPD with acute exacerbation J44.1 ; Pain of left hand M79.642 and Pain in right hand M79.641 [facility] [address] [id number] [address] [place] [address] Apr, [facility] [address] [id number] [address] [place] [id number] Mar, [facility] [address] [id number] [address] [place] [address] Mar, [facility] [address] [id number] [address] [place] [address] Mar, [facility] [address] [facility] [id number] [address] [place] [address] Feb, [facility] [address] [facility] [id number] [address] [place] [address] Feb, [facility] [address] [id number] [address] [place] [address] Jan, Type 2 diabetes mellitus wit h complication E11.8 ; Chronic pain syndrome G89.4 ; Bilateral low back pain without sciatica M54.5 ; Essential hypertension I10 ; Anxiety F41.9 ; Chronic obstructive pulmonary disease, unspecified COPD type J44.9 and Thrush B37.0 [facility] [address] [id number] [address] [place] [id number] Jan, [facility] [address] [id number] [address] [place] [address] Dec, [facility] [address] [id number] [address] [place] [phone] Dec, [facility] [address] [id number] [address] [place] [id number] Nov, [facility] [address] [id number] [address] [place] [phone] Nov, [facility] [address] [id number] [address] [place] [address] Nov, [facility] [address] [facility] [id number] [address] [place] [address] Nov, Chest pain, unspecified type R07.9 and COPD exacerbation J44.1 [facility] [address] [id number] [address] [place] [id number] October, [facility] [address] [facility] [id number] [address] [place] [address] Sep, [facility] [address] [id number] [address] [place] [address] Sep, Type 2 diabetes mellitus wit h complication E11.8 ; Chronic pain syndrome G89.4 ; Bilateral low back pain without sciatica M54.5 ; Essential hypertension I10 ; Anxiety F41.9 and COPD exacerbation J44.1 [facility] [address] [facility] [id number] [address] [place] [address] Aug, [facility] [address] [facility] [id number] [address] [place] [address] Aug, [facility] [address] [facility] [id number] [address] [place] [address] Aug, Chronic pain syndrome G89.4 [facility] [address] [facility] [id number] [address] [place] [address] Aug, [facility] [id number] [place] [address] Aug, [facility] [id number] [place] [address] Jul, Chronic pain syndrome G89.4 and Anxiety F41.9 [facility] [address] [id number] [address] [place] [address] Jul, [facility] [address] [address] Jun, Bilateral low back pain with out sciatica M54.5 ; Chronic pain syndrome G89.4 ; Anxiety F41.9 ; History of long-term use of multiple prescription drugs Z92.29 ; Type 2 diabetes mellitus with complication E11.8 ; Long-term use of high-risk medication Z79.899 ; Mixed hyperlipidemia E78.2 and Essential hypertension I10 [facility] [address] [id number] [address] [place] [address] Jun, [facility] [address] [id number] [address] [place] [address] Jun, [facility] [address] [facility] [id number] [address] [place] [address] May, [facility] [address] [id number] [address] [place] [address] Apr, [facility] [address] [id number] [address] [place] [id number] Mar, [facility] [address] [id number] [address] [place] [address] Mar, Bilateral low back pain with out sciatica M54.5 ; History of long- term use of multiple prescription drugs Z92.29 ; Anxiety F41.9 ; Chronic pain syndrome G89.4 ; Type 2 diabetes mellitus with complication E11.8 ; Long-term use of high-risk medication Z79.899 and Mixed hyperlipidemia E78.2 [facility] [address] [id number] [address] [place] [address] Mar, [facility] [address] [id number] [address] [place] [address] Mar, Chronic pain syndrome G89.4 [facility] [address] [id number] [address] [place] [address] Mar, [facility] [address] [id number] [address] [place] [id number] Feb, [facility] [address] [id number] [address] [place] [address] Feb, [facility] [address] [id number] [address] [place] [address] Feb, [facility] [address] [id number] [address] [place] [address] Feb, [facility] [address] [id number] [address] [place] [address] Jan, [facility] [address] [facility] [id number] [address] [place] [phone] Jan, [facility] [address] [id number] [address] [place] [address] Dec, [facility] [address] [id number] [address] [place] [address] Dec, Lumbago 724.2 ; Diabetes thony litus without mention of complication, type II or unspecified type, not stated as uncontrolled 250.00 ; Essential hypertension, benign 401.1 ; Anxiety state, unspecified 300.00 ; Chronic pain 338.29 ; COPD with acute exacerbation 491.21 ; Tobacco abuse 305.1 ; Depression 311 and Hyperlipidemia 272.4 [facility] [address] [id number] [address] [place] [address] Dec, [facility] [address] [facility] [id number] [address] [place] [address] Nov, Lumbago 724.2 ; Diabetes thony litus without mention of complication, type II or unspecified type, not stated as uncontrolled 250.00 ; Essential hypertension, benign 401.1 ; Anxiety state, unspecified 300.00 ; Chronic pain 338.29 ; COPD with acute exacerbation 491.21 ; Tobacco abuse 305.1 and Depression 311 [facility] [address] [id number] [address] [place] [address] Nov, [facility] [address] [id number] [address] [place] [phone] Nov, [facility] [address] [id number] [address] [place] [address] Nov, [facility] [address] [id number] [address] [place] [phone] October, [facility] [address] [id number] [address] [place] [address] October, [facility] [address] [id number] [address] [place] [id number] October, [facility] [address] [id number] [address] [place] [address] October, [facility] [address] [id number] [address] [place] [phone] October, [facility] [address] [id number] [address] [place] [phone] Sep, [facility] [address] [facility] [id number] [address] [place] [address] Sep, [facility] [address] [id number] [address] [place] [address], [place] [address] 13 Sep, 2014 [facility] [address] [id number] [address] [place] [address], [place] [address] 23 Aug, 2014 [facility] [address] [id number] [address] [place] [address], [place] [address] 23 Aug, 2014 [facility] [address] [id number] [address] [place] [address], [place] [address] 20 Aug, 2014 [facility] [address] [id number] [address] [place] [address], [place] [address] 20 Aug, 2014 [facility] [address] [id number] [address] [place] [address], [place] [address] 19 Aug, 2014 [facility] [address] [id number] [address] [place] [address], [place] [address] 19 Aug, 2014 [facility] [address] [id number] [address] [place] [address], [place] [address] 16 Aug, 2014 [facility] [address] [id number] [address] [place] [address], [place] [address] 16 Aug, 2014 [facility] [address] [id number] [address] [place] [address], [place] [address] 16 Aug, 2014 [facility] [address] [id number] [address] [place] [address], [place] [address] 16 Aug, 2014 [facility] [address] [id number] [address] [place] [address], [place] [address] 13 Aug, 2014 [facility] [address] [id number] [address] [place] [address], [place] [address] 13 Aug, 2014 [facility] [address] [id number] [address] [place] [address], [place] [address] 24 Jul, 2014 [facility] [address] [id number] [address] [place] [address], [place] [address] 23 Jul, 2014 [facility] [address] [id number] [address] [place] [address], [place] [address] Jul, [facility] [address] [id number] [address] [place] [address], [place] [address] Jul, [facility] [address] [id number] [address] [place] [address], [place] [address] Jul, [facility] [address] [id number] [address] [place] [address], [place] [address] Jul, [facility] [address] [id number] [address] [place] [address], [place] [address] Jul, [facility] [address] [id number] [address] [place] [address], [place] [address] Jun, [facility] [address] [id number] [address] [place] [address], [place] [address] Jun, [facility] [address] [id number] [address] [place] [address], [place] [address] Jun, [facility] [address] [id number] [address] [place] [address], [place] [address] Jun, [facility] [address] [id number] [address] [place] [address], [place] [address] Jun, [facility] [address] [id number] [address] [place] [address], [place] [address] Jun, [facility] [address] [id number] [address] [place] [address], [place] [address] Jun, [facility] [address] [id number] [address] [place] [address], [place] [address] Jun, [facility] [address] [id number] [address] [place] [address], [place] [address] Jun, [facility] [address] [id number] [address] [place] [address], [place] [address] May, [facility] [address] [id number] [address] [place] [address], [place] [address] May, [facility] [address] [id number] [address] [place] [address], [place] [address] 30 May, 2014 [facility] [address] [id number] [address] [place] [address], [place] [address] 30 May, 2014 [facility] [address] [id number] [address] [place] [address], [place] [address] 17 May, 2014 [facility] [address] [id number] [address] [place] [address], [place] [address] 15 May, 2014 [facility] [address] [id number] [address] [place] [address], [place] [address] 15 May, 2014 [facility] [address] [id number] [address] [place] [address], [place] [address] 12 May, 2014 [facility] [address] [id number] [address] [place] [address], [place] [address] May, [facility] [address] [id number] [address] [place] [address], [place] [address] May, [facility] [address] [id number] [address] [place] [address], [place] [address] May, [facility] [address] [id number] [address] [place] [address], [place] [address] Apr, [facility] [address] [id number] [address] [place] [address], [place] [address] Apr, [facility] [address] [id number] [address] [place] [address], [place] [address] Apr, [facility] [address] [id number] [address] [place] [address], [place] [address] Apr, [facility] [address] [id number] [address] [place] [address], [place] [address] 29 Mar, 2014 [facility] [address] [id number] [address] [place] [address], [place] [address] 29 Mar, 2014 [facility] [address] [id number] [address] [place] [address], [place] [address] Mar, [facility] [address] [id number] [address] [place] [address], [place] [address] 2014 [facility] [address] [id number] [address] [place] [address], [place] [address] Mar, [facility] [address] [id number] [address] [place] [address], [place] [address] Mar, [facility] [address] [id number] [address] [place] [address], [place] [address] 29 Feb, 2014 [facility] [address] [id number] [address] [place] [address], [place] [address] 29 Feb, 2014 [facility] [address] [id number] [address] [place] [address], [place] [address] 17 Feb, 2014 [facility] [address] [id number] [address] [place] [address], [place] [address] 16 Feb, 2014 [facility] [address] [id number] [address] [place] [address], [place] [address] 16 Feb, 2014 [facility] [address] [id number] [address] [place] [address], [place] [address] Feb, [facility] [address] [id number] [address] [place] [address], [place] [address] 03 Feb, 2014 [facility] [address] [id number] [address] [place] [address], [place] [address] Jan, [facility] [address] [id number] [address] [place] [address], [place] [address] Jan, [facility] [address] [id number] [address] [place] [address], [place] [address] Jan, [facility] [address] [id number] [address] [place] [address], [place] [address] Jan, [facility] [address] [id number] [address] [place] [address], [place] [address] Dec, [facility] [address] [id number] [address] [address] Dec, [facility] [address] [facility] [id number] [address] [place] [address] Dec, [facility] [address] [facility] [id number] [address] [place] [address] Dec, IMMUNIZATIONS No Known Immunizations SOCIAL HISTORY Never Assessed REASON FOR VISIT PLAN OF CARE VITAL SIGNS Height 68 in 2014-06-22 Weight 258.58 lbs 2014-06-22 Temperature 96.2 degrees Fahrenheit 2014-06-22 Heart Rate 80 bpm 2014-06-22 Respiratory Rate 18 2014-06-22 Blood pressure systolic 140 mmHg 2014-06-22 Blood pressure diastolic 85 mmHg 2014-06-22 MEDICATIONS Unknown Medications RESULTS No Results PROCEDURES [...]
--- OUTSIDE RECORDS SUMMARY | 2019-08-23 12:14 | XMS REPORT ---
Author Author RICOVeronica Ferrell ANGE Organization [facility] Address [address] [place] [address] Care Team Providers Care Athletic Equipment Manager Name Role Phone ANGE REYNOSO Unavailable PROBLEMS Type Condition ICD9-CM Code WQL30-HR Code Onset Dates Condition S tatus SNOMED Code Problem Bilateral low back pain without sciatica M54.5 Active 345365476 Problem Anxiety F41.9 Active 91652075 Problem Chronic pain syndrome G89.4 Active 833131912 Problem Thrush B37.0 Active 61365012 Problem Type 2 diabetes mellitus with complication E11.8 Active 31462042 Problem COPD with acute exacerbation J44.1 A ctive 149945354 Problem History of long-term use of multiple prescription drugs Z92.29 Active 672522676 Problem Essential hypertension I10 Active 07220366 Problem Mixed hyperlipidemia E78.2 Active 826151112 Problem Long-term use of high-risk medication Z79.899 Active 914181477 Problem Chronic obstructive pulmonary disease, unspecified COPD ty pe J44.9 Active 47603251 ALLERGIES No Information ENCOUNTERS Encounter Location Date Diagnosis [facility] [address] [id number] [address] [place] [address] Nov, [facility] [address] [id number] [address] [place] [address] October, Scabies B86 [facility] [address] [id number] [address] [place] [address] October, Acute upper respiratory infe ction, unspecified J06.9 [facility] [address] [id number] [address] [place] [address] October, Dysuria R30.0 and Coughing R 05 [facility] [id number] [place] [address] Aug, [facility] [address] [id number] [address] [place] [address] Jun, [facility] [address] [id number] [address] [place] [address] Jun, [facility] [address] [id number] [address] [place] [address] Jun, [facility] [address] [id number] [address] [place] [address] May, [facility] [address] [id number] [address] [place] [address] May, [facility] [address] [facility] [id number] [address] [place] [address] May, [facility] [address] [facility] [id number] [address] [place] [address] Apr, Type 2 diabetes mellitus wit h complication E11.8 ; Chronic pain syndrome G89.4 ; Bilateral low back pain without sciatica M54.5 ; Essential hypertension I10 ; Anxiety F41.9 ; COPD with acute exacerbation J44.1 ; Pain of left hand M79.642 and Pain in right hand M79.641 [facility] [address] [id number] [address] [place] [address] Apr, [facility] [address] [id number] [address] [place] [address] Mar, [facility] [address] [id number] [address] [place] [address] Mar, [facility] [address] [id number] [address] [place] [address] Mar, [facility] [address] [facility] [id number] [address] [place] [address] Feb, [facility] [address] [facility] [id number] [address] [place] [address] Feb, [facility] [address] [id number] [address] [place] [address] Jan, Type 2 diabetes mellitus wit h complication E11.8 ; Chronic pain syndrome G89.4 ; Bilateral low back pain without sciatica M54.5 ; Essential hypertension I10 ; Anxiety F41.9 ; Chronic obstructive pulmonary disease, unspecified COPD type J44.9 and Thrush B37.0 [facility] [address] [id number] [address] [place] [address] Jan, [facility] [address] [id number] [address] [place] [address] Dec, [facility] [address] [id number] [address] [place] [address] Dec, [facility] [address] [id number] [address] [place] [address] Nov, [facility] [address] [id number] [address] [place] [address] Nov, [facility] [address] [id number] [address] [place] [address] Nov, [facility] [address] [facility] [id number] [address] [place] [address] Nov, Chest pain, unspecified type R07.9 and COPD exacerbation J44.1 [facility] [address] [id number] [address] [place] [address] October, [facility] [address] [facility] [id number] [address] [place] [address] Sep, [facility] [address] [id number] [address] [place] [address] Sep, Type 2 diabetes mellitus wit h complication E11.8 ; Chronic pain syndrome G89.4 ; Bilateral low back pain without sciatica M54.5 ; Essential hypertension I10 ; Anxiety F41.9 and COPD exacerbation J44.1 [facility] [address] [facility] [id number] [address] [place] [address] Aug, [facility] [address] [facility] [id number] [address] [place] [address] Aug, [facility] [address] [facility] [id number] [address] [place] [address] Aug, Chronic pain syndrome G89.4 [facility] [address] [facility] [id number] [address] [place] [address] Aug, [facility] [id number] [place] [address] Aug, [facility] [id number] [place] [address] Jul, Chronic pain syndrome G89.4 and Anxiety F41.9 [facility] [address] [id number] [address] [place] [address] Jul, [facility] [address] [address] [address] Jun, Bilateral low back pain with out sciatica M54.5 ; Chronic pain syndrome G89.4 ; Anxiety F41.9 ; History of long-term use of multiple prescription drugs Z92.29 ; Type 2 diabetes mellitus with complication E11.8 ; Long-term use of high-risk medication Z79.899 ; Mixed hyperlipidemia E78.2 and Essential hypertension I10 [facility] [address] [id number] [address] [place] [phone] Jun, [facility] [address] [id number] [address] [place] [address] Jun, [facility] [address] [facility] [id number] [address] [place] [phone] May, [facility] [address] [id number] [address] [place] [address] Apr, [facility] [address] [id number] [address] [place] [phone] Mar, [facility] [address] [id number] [address] [place] [address] Mar, Bilateral low back pain with out sciatica M54.5 ; History of long- term use of multiple prescription drugs Z92.29 ; Anxiety F41.9 ; Chronic pain syndrome G89.4 ; Type 2 diabetes mellitus with complication E11.8 ; Long-term use of high-risk medication Z79.899 and Mixed hyperlipidemia E78.2 [facility] [address] [id number] [address] [place] [address] Mar, [facility] [address] [id number] [address] [place] [address] Mar, Chronic pain syndrome G89.4 [facility] [address] [id number] [address] [place] [phone] Mar, [facility] [address] [id number] [address] [place] [phone] Feb, [facility] [address] [id number] [address] [place] [address] Feb, [facility] [address] [id number] [address] [place] [address] Feb, [facility] [address] [id number] [address] [place] [address] Feb, [facility] [address] [id number] [address] [place] [address] Jan, [facility] [address] [facility] [id number] [address] [place] [address] Jan, [facility] [address] [id number] [address] [place] [address] Dec, [facility] [address] [id number] [address] [place] [address] Dec, Lumbago 724.2 ; Diabetes thony litus without mention of complication, type II or unspecified type, not stated as uncontrolled 250.00 ; Essential hypertension, benign 401.1 ; Anxiety state, unspecified 300.00 ; Chronic pain 338.29 ; COPD with acute exacerbation 491.21 ; Tobacco abuse 305.1 ; Depression 311 and Hyperlipidemia 272.4 [facility] [address] [id number] [address] [place] [address] Dec, [facility] [address] [facility] [id number] [address] [place] [address] Nov, Lumbago 724.2 ; Diabetes thony litus without mention of complication, type II or unspecified type, not stated as uncontrolled 250.00 ; Essential hypertension, benign 401.1 ; Anxiety state, unspecified 300.00 ; Chronic pain 338.29 ; COPD with acute exacerbation 491.21 ; Tobacco abuse 305.1 and Depression 311 [facility] [address] [id number] [address] [place] [address] Nov, [facility] [address] [id number] [address] [place] [address] Nov, [facility] [address] [id number] [address] [place] [address] Nov, [facility] [address] [id number] [address] [place] [address] October, [facility] [address] [id number] [address] [place] [address] October, [facility] [address] [id number] [address] [place] [address] October, [facility] [address] [id number] [address] [place] [phone] October, [facility] [address] [id number] [address] [place] [address] October, [facility] [address] [id number] [address] [place] [phone] Sep, [facility] [address] [facility] [id number] [address] [place] [phone] Sep, [facility] [address] [id number] [address] [place] [address], [place] [address] 13 Sep, 2014 [facility] [address] [id number] [address] [place] [address], [place] [address] 23 Aug, 2014 [facility] [address] [id number] [address] [place] [address], [place] [address] 23 Aug, 2014 [facility] [address] [id number] [address] [place] [address], [place] [address] 20 Aug, 2014 [facility] [address] [id number] [address] [place] [address], [place] [address] 20 Aug, 2014 [facility] [address] [id number] [address] [place] [address], [place] [address] 19 Aug, 2014 [facility] [address] [id number] [address] [place] [address], [place] [address] 19 Aug, 2014 [facility] [address] [id number] [address] [place] [address], [place] [address] 16 Aug, 2014 [facility] [address] [id number] [address] [place] [address], [place] [address] 16 Aug, 2014 [facility] [address] [id number] [address] [place] [address], [place] [address] 16 Aug, 2014 [facility] [address] [id number] [address] [place] [address], [place] [address] 16 Aug, 2014 [facility] [address] [id number] [address] [place] [address], [place] [address] 13 Aug, 2014 [facility] [address] [id number] [address] [place] [address], [place] [address] 13 Aug, 2014 [facility] [address] [id number] [address] [place] [address], [place] [address] 24 Jul, 2014 [facility] [address] [id number] [address] [place] [address], [place] [address] 23 Jul, 2014 [facility] [address] [id number] [address] [place] [address], [place] [address] Jul, [facility] [address] [id number] [address] [place] [address], [place] [address] Jul, [facility] [address] [id number] [address] [place] [address], [place] [address] Jul, [facility] [address] [id number] [address] [place] [address], [place] [address] Jul, [facility] [address] [id number] [address] [place] [address], [place] [address] Jul, [facility] [address] [id number] [address] [place] [address], [place] [address] Jun, [facility] [address] [id number] [address] [place] [address], [place] [address] Jun, [facility] [address] [id number] [address] [place] [address], [place] [address] Jun, [facility] [address] [id number] [address] [place] [address], [place] [address] Jun, [facility] [address] [id number] [address] [place] [address], [place] [address] Jun, [facility] [address] [id number] [address] [place] [address], [place] [address] Jun, [facility] [address] [id number] [address] [place] [address], [place] [address] Jun, [facility] [address] [id number] [address] [place] [address], [place] [address] Jun, [facility] [address] [id number] [address] [place] [address], [place] [address] Jun, [facility] [address] [id number] [address] [place] [address], [place] [address] May, [facility] [address] [id number] [address] [place] [address], [place] [address] May, [facility] [address] [id number] [address] [place] [address], [place] [address] 30 May, 2014 [facility] [address] [id number] [address] [place] [address], [place] [address] 30 May, 2014 [facility] [address] [id number] [address] [place] [address], [place] [address] 17 May, 2014 [facility] [address] [id number] [address] [place] [address], [place] [address] 15 May, 2014 [facility] [address] [id number] [address] [place] [address], [place] [address] 15 May, 2014 [facility] [address] [id number] [address] [place] [address], [place] [address] 12 May, 2014 [facility] [address] [id number] [address] [place] [address], [place] [address] May, [facility] [address] [id number] [address] [place] [address], [place] [address] May, [facility] [address] [id number] [address] [place] [address], [place] [address] May, [facility] [address] [id number] [address] [place] [address], [place] [address] Apr, [facility] [address] [id number] [address] [place] [address], [place] [address] Apr, [facility] [address] [id number] [address] [place] [address], [place] [address] Apr, [facility] [address] [id number] [address] [place] [address], [place] [address] Apr, [facility] [address] [id number] [address] [place] [address], [place] [address] 29 Mar, 2014 [facility] [address] [id number] [address] [place] [address], [place] [address] 29 Mar, 2014 [facility] [address] [id number] [address] [place] [address], [place] [address] Mar, [facility] [address] [id number] [address] [place] [address], [place] [address] 2014 [facility] [address] [id number] [address] [place] [address], [place] [address] Mar, [facility] [address] [id number] [address] [place] [address], [place] [address] Mar, [facility] [address] [id number] [address] [place] [address], [place] [address] 29 Feb, 2014 [facility] [address] [id number] [address] [place] [address], [place] [address] 29 Feb, 2014 [facility] [address] [id number] [address] [place] [address], [place] [address] 17 Feb, 2014 [facility] [address] [id number] [address] [place] [address], [place] [address] 16 Feb, 2014 [facility] [address] [id number] [address] [place] [address], [place] [address] 16 Feb, 2014 [facility] [address] [id number] [address] [place] [address], [place] [address] Feb, [facility] [address] [id number] [address] [place] [address], [place] [address] 03 Feb, 2014 [facility] [address] [id number] [address] [place] [address], [place] [address] Jan, [facility] [address] [id number] [address] [place] [address], [place] [address] Jan, [facility] [address] [id number] [address] [place] [address], [place] [address] Jan, [facility] [address] [id number] [address] [place] [address], [place] [address] Jan, [facility] [address] [id number] [address] [place] [address], [place] [address] Dec, [facility] [address] [id number] [address] [place] [address] Dec, [facility] [address] [facility] [id number] [address] [place] [address] Dec, [facility] [address] [facility] [id number] [address] [place] [address] Dec, IMMUNIZATIONS No Known Immunizations SOCIAL HISTORY [...]
--- OUTSIDE RECORDS SUMMARY | 2019-08-23 12:14 | XMS REPORT ---
Author Author RICOVeronica Ferrell ANGE Organization [facility] Address [address] [place] [address] Care Team Providers Care Battery Charger Tester Name Role Phone ANGE REYNOSO Unavailable PROBLEMS Type Condition ICD9-CM Code RSE00-LM Code Onset Dates Condition S tatus SNOMED Code Problem Bilateral low back pain without sciatica M54.5 Active 854798015 Problem Anxiety F41.9 Active 45475031 Problem Chronic pain syndrome G89.4 Active 135660745 Problem Thrush B37.0 Active 19810455 Problem Type 2 diabetes mellitus with complication E11.8 Active 23408623 Problem COPD with acute exacerbation J44.1 A ctive 687656968 Problem History of long-term use of multiple prescription drugs Z92.29 Active 195660421 Problem Essential hypertension I10 Active 42451543 Problem Mixed hyperlipidemia E78.2 Active 607897621 Problem Long-term use of high-risk medication Z79.899 Active 914122099 Problem Chronic obstructive pulmonary disease, unspecified COPD ty pe J44.9 Active [id number] ALLERGIES No Information ENCOUNTERS Encounter Location Date Diagnosis [facility] [address] [id number] [address] [place] [id number] Nov, [facility] [address] [id number] [address] [place] [phone] October, Scabies B86 [facility] [address] [id number] [address] [place] [id number] October, Acute upper respiratory infe ction, unspecified J06.9 [facility] [address] [id number] [address] [place] [address] October, Dysuria R30.0 and Coughing R 05 [facility] [id number] [place] [id number] Aug, [facility] [address] [id number] [address] [place] [phone] Jun, [facility] [address] [id number] [address] [place] [phone] Jun, [facility] [address] [id number] [address] [place] [phone] Jun, [facility] [address] [id number] [address] [place] [id number] May, [facility] [address] [id number] [address] [place] [address] May, [facility] [address] [facility] [id number] [address] [place] [phone] May, [facility] [address] [facility] [id number] [address] [place] [id number] Apr, Type 2 diabetes mellitus wit h complication E11.8 ; Chronic pain syndrome G89.4 ; Bilateral low back pain without sciatica M54.5 ; Essential hypertension I10 ; Anxiety F41.9 ; COPD with acute exacerbation J44.1 ; Pain of left hand M79.642 and Pain in right hand M79.641 [facility] [address] [id number] [address] [place] [address] Apr, [facility] [address] [id number] [address] [place] [phone] Mar, [facility] [address] [id number] [address] [place] [phone] Mar, [facility] [address] [id number] [address] [place] [id number] Mar, [facility] [address] [facility] [id number] [address] [place] [phone] Feb, [facility] [address] [facility] [id number] [address] [place] [phone] Feb, [facility] [address] [id number] [address] [place] [id number] Jan, Type 2 diabetes mellitus wit h complication E11.8 ; Chronic pain syndrome G89.4 ; Bilateral low back pain without sciatica M54.5 ; Essential hypertension I10 ; Anxiety F41.9 ; Chronic obstructive pulmonary disease, unspecified COPD type J44.9 and Thrush B37.0 [facility] [address] [id number] [address] [place] [id number] Jan, [facility] [address] [id number] [address] [place] [phone] Dec, [facility] [address] [id number] [address] [place] [id number] Dec, [facility] [address] [id number] [address] [place] [phone] Nov, [facility] [address] [id number] [address] [place] [phone] Nov, [facility] [address] [id number] [address] [place] [id number] Nov, [facility] [address] [facility] [id number] [address] [place] [address] Nov, Chest pain, unspecified type R07.9 and COPD exacerbation J44.1 [facility] [address] [id number] [address] [place] [phone] October, [facility] [address] [facility] [id number] [address] [place] [phone] Sep, [facility] [address] [id number] [address] [place] [id number] Sep, Type 2 diabetes mellitus wit h complication E11.8 ; Chronic pain syndrome G89.4 ; Bilateral low back pain without sciatica M54.5 ; Essential hypertension I10 ; Anxiety F41.9 and COPD exacerbation J44.1 [facility] [address] [facility] [id number] [address] [place] [phone] Aug, [facility] [address] [facility] [id number] [address] [place] [phone] Aug, [facility] [address] [facility] [id number] [address] [place] [phone] Aug, Chronic pain syndrome G89.4 [facility] [address] [facility] [id number] [address] [place] [phone] Aug, [facility] [id number] [place] [address] Aug, [facility] [id number] [place] [address] Jul, Chronic pain syndrome G89.4 and Anxiety F41.9 [facility] [address] [id number] [address] [place] [phone] Jul, [facility] [address] [address] Jun, Bilateral low back pain with out sciatica M54.5 ; Chronic pain syndrome G89.4 ; Anxiety F41.9 ; History of long-term use of multiple prescription drugs Z92.29 ; Type 2 diabetes mellitus with complication E11.8 ; Long-term use of high-risk medication Z79.899 ; Mixed hyperlipidemia E78.2 and Essential hypertension I10 [facility] [address] [id number] [address] [place] [phone] Jun, [facility] [address] [id number] [address] [place] [phone] Jun, [facility] [address] [facility] [id number] [address] [place] [phone] May, [facility] [address] [id number] [address] [place] [phone] Apr, [facility] [address] [id number] [address] [place] [phone] Mar, [facility] [address] [id number] [address] [place] [id number] Mar, Bilateral low back pain with out sciatica M54.5 ; History of long- term use of multiple prescription drugs Z92.29 ; Anxiety F41.9 ; Chronic pain syndrome G89.4 ; Type 2 diabetes mellitus with complication E11.8 ; Long-term use of high-risk medication Z79.899 and Mixed hyperlipidemia E78.2 [facility] [address] [id number] [address] [place] [address] Mar, [facility] [address] [id number] [address] [place] [phone] Mar, Chronic pain syndrome G89.4 [facility] [address] [id number] [address] [place] [id number] Mar, [facility] [address] [id number] [address] [place] [phone] Feb, [facility] [address] [id number] [address] [place] [id number] Feb, [facility] [address] [id number] [address] [place] [phone] Feb, [facility] [address] [id number] [address] [place] [phone] Feb, [facility] [address] [id number] [address] [place] [address] Jan, [facility] [address] [facility] [id number] [address] [place] [id number] Jan, [facility] [address] [id number] [address] [place] [id number] Dec, [facility] [address] [id number] [address] [place] [address] Dec, Lumbago 724.2 ; Diabetes thony litus without mention of complication, type II or unspecified type, not stated as uncontrolled 250.00 ; Essential hypertension, benign 401.1 ; Anxiety state, unspecified 300.00 ; Chronic pain 338.29 ; COPD with acute exacerbation 491.21 ; Tobacco abuse 305.1 ; Depression 311 and Hyperlipidemia 272.4 [facility] [address] [id number] [address] [place] [phone] Dec, [facility] [address] [facility] [id number] [address] [place] [address] Nov, Lumbago 724.2 ; Diabetes thony litus without mention of complication, type II or unspecified type, not stated as uncontrolled 250.00 ; Essential hypertension, benign 401.1 ; Anxiety state, unspecified 300.00 ; Chronic pain 338.29 ; COPD with acute exacerbation 491.21 ; Tobacco abuse 305.1 and Depression 311 [facility] [address] [id number] [address] [place] [id number] Nov, [facility] [address] [id number] [address] [place] [id number] Nov, [facility] [address] [id number] [address] [place] [phone] Nov, [facility] [address] [id number] [address] [place] [id number] October, [facility] [address] [id number] [address] [place] [phone] October, [facility] [address] [id number] [address] [place] [phone] October, [facility] [address] [id number] [address] [place] [phone] October, [facility] [address] [id number] [address] [place] [phone] October, [facility] [address] [id number] [address] [place] [id number] Sep, [facility] [address] [facility] [id number] [address] [place] [id number] Sep, [facility] [address] [id number] [address] [place] [address], [place] [address] 13 Sep, 2014 [facility] [address] [id number] [address] [place] [address], [place] [address] 23 Aug, 2014 [facility] [address] [id number] [address] [place] [address], [place] [address] 23 Aug, 2014 [facility] [address] [id number] [address] [place] [address], [place] [address] 20 Aug, 2014 [facility] [address] [id number] [address] [place] [address], [place] [address] 20 Aug, 2014 [facility] [address] [id number] [address] [place] [address], [place] [address] 19 Aug, 2014 [facility] [address] [id number] [address] [place] [address], [place] [address] 19 Aug, 2014 [facility] [address] [id number] [address] [place] [address], [place] [address] 16 Aug, 2014 [facility] [address] [id number] [address] [place] [address], [place] [address] 16 Aug, 2014 [facility] [address] [id number] [address] [place] [address], [place] [address] 16 Aug, 2014 [facility] [address] [id number] [address] [place] [address], [place] [address] 16 Aug, 2014 [facility] [address] [id number] [address] [place] [address], [place] [address] 13 Aug, 2014 [facility] [address] [id number] [address] [place] [address], [place] [address] 13 Aug, 2014 [facility] [address] [id number] [address] [place] [address], [place] [address] 24 Jul, 2014 [facility] [address] [id number] [address] [place] [address], [place] [address] 23 Jul, 2014 [facility] [address] [id number] [address] [place] [address], [place] [address] Jul, [facility] [address] [id number] [address] [place] [address], [place] [address] Jul, [facility] [address] [id number] [address] [place] [address], [place] [address] Jul, [facility] [address] [id number] [address] [place] [address], [place] [address] Jul, [facility] [address] [id number] [address] [place] [address], [place] [address] Jul, [facility] [address] [id number] [address] [place] [address], [place] [address] Jun, [facility] [address] [id number] [address] [place] [address], [place] [address] Jun, [facility] [address] [id number] [address] [place] [address], [place] [address] Jun, [facility] [address] [id number] [address] [place] [address], [place] [address] Jun, [facility] [address] [id number] [address] [place] [address], [place] [address] Jun, [facility] [address] [id number] [address] [place] [address], [place] [address] Jun, [facility] [address] [id number] [address] [place] [address], [place] [address] Jun, [facility] [address] [id number] [address] [place] [address], [place] [address] Jun, [facility] [address] [id number] [address] [place] [address], [place] [address] Jun, [facility] [address] [id number] [address] [place] [address], [place] [address] May, [facility] [address] [id number] [address] [place] [address], [place] [address] May, [facility] [address] [id number] [address] [place] [address], [place] [address] 30 May, 2014 [facility] [address] [id number] [address] [place] [address], [place] [address] 30 May, 2014 [facility] [address] [id number] [address] [place] [address], [place] [address] 17 May, 2014 [facility] [address] [id number] [address] [place] [address], [place] [address] 15 May, 2014 [facility] [address] [id number] [address] [place] [address], [place] [address] 15 May, 2014 [facility] [address] [id number] [address] [place] [address], [place] [address] 12 May, 2014 [facility] [address] [id number] [address] [place] [address], [place] [address] May, [facility] [address] [id number] [address] [place] [address], [place] [address] May, [facility] [address] [id number] [address] [place] [address], [place] [address] May, [facility] [address] [id number] [address] [place] [address], [place] [address] Apr, [facility] [address] [id number] [address] [place] [address], [place] [address] Apr, [facility] [address] [id number] [address] [place] [address], [place] [address] Apr, [facility] [address] [id number] [address] [place] [address], [place] [address] Apr, [facility] [address] [id number] [address] [place] [address], [place] [address] 29 Mar, 2014 [facility] [address] [id number] [address] [place] [address], [place] [address] 29 Mar, 2014 [facility] [address] [id number] [address] [place] [address], [place] [address] Mar, [facility] [address] [id number] [address] [place] [address] [address] 2014 [facility] [address] [id number] [address] [place] [address], [place] [address] Mar, [facility] [address] [id number] [address] [place] [address], [place] [address] Mar, [facility] [address] [id number] [address] [place] [address], [place] [address] 29 Feb, 2014 [facility] [address] [id number] [address] [place] [address], [place] [address] 29 Feb, 2014 [facility] [address] [id number] [address] [place] [address], [place] [address] 17 Feb, 2014 [facility] [address] [id number] [address] [place] [address], [place] [address] 16 Feb, 2014 [facility] [address] [id number] [address] [place] [address], [place] [address] 16 Feb, 2014 [facility] [address] [id number] [address] [place] [address], [place] [address] Feb, [facility] [address] [id number] [address] [place] [address], [place] [address] 03 Feb, 2014 [facility] [address] [id number] [address] [place] [address], [place] [address] Jan, [facility] [address] [id number] [address] [place] [address], [place] [address] Jan, [facility] [address] [id number] [address] [place] [address], [place] [address] Jan, [facility] [address] [id number] [address] [place] [address], [place] [address] Jan, [facility] [address] [id number] [address] [place] [address], [place] [address] Dec, [facility] [address] [id number] [address] [address] Dec, [facility] [address] [facility] [id number] [address] [place] [phone] Dec, [facility] [address] [facility] [id number] [address] [place] [id number] Dec, IMMUNIZATIONS No Known Immunizations SOCIAL HISTORY [...]
--- OUTSIDE RECORDS SUMMARY | 2019-08-23 12:15 | XMS REPORT ---
Author Author Veronica Vanessa Doctor Organization [facility] Address Unknown Phone Unavailable Care Team Providers Care Industrial Nurse Name Role Phone Migration, Doctor Unavailable Unavailable PROBLEMS Type Condition ICD9-CM Code BXZ22-KC Code Onset Dates Condition S tatus SNOMED Code Problem Bilateral low back pain without sciatica M54.5 Active 825090276 Problem Anxiety F41.9 Active 12499022 Problem Chronic pain syndrome G89.4 Active 452953646 Problem Thrush B37.0 Active 40334216 Problem Type 2 diabetes mellitus with complication E11.8 Active 48254047 Problem COPD with acute exacerbation J44.1 A ctive 014608389 Problem History of long-term use of multiple prescription drugs Z92.29 Active 126841430 Problem Essential hypertension I10 Active 87782634 Problem Mixed hyperlipidemia E78.2 Active 752993403 Problem Long-term use of high-risk medication Z79.899 Active 448949376 Problem Chronic obstructive pulmonary disease, unspecified COPD ty pe J44.9 Active [id number] ALLERGIES No Information ENCOUNTERS Encounter Location Date Diagnosis [facility] [address] [address] Nov, [facility] [address] [address] October, Scabies B86 [facility] [address] [id number] [address] [place] [address] October, Acute upper respiratory infe ction, unspecified J06.9 [facility] [address] [address] October, Dysuria R30.0 and Coughing R 05 [facility] [address] [id number] [address] [place] [address] Aug, [facility] [address] [address] Jun, [facility] [address] [id number] [address] [place] [address] Jun, [facility] [address] [id number] [address] [place] [address] Jun, [facility] [address] [id number] [address] [place] [address] May, [facility] [address] [id number] [address] [place] [address] May, [facility] [address] [id number] [address] [place] [address] May, [facility] [address] [facility] [id number] [address] [place] [address] Apr, Type 2 diabetes mellitus wit h complication E11.8 ; Chronic pain syndrome G89.4 ; Bilateral low back pain without sciatica M54.5 ; Essential hypertension I10 ; Anxiety F41.9 ; COPD with acute exacerbation J44.1 ; Pain of left hand M79.642 and Pain in right hand M79.641 [facility] [address] [id number] [address] [place] [address] Apr, [facility] [address] [id number] [address] [place] [address] Mar, [facility] [address] [id number] [address] [place] [address] Mar, [facility] [address] [id number] [address] [place] [address] Mar, [facility] [address] [id number] [address] [place] [address] Feb, [facility] [address] [id number] [address] [place] [address] Feb, [facility] [address] [facility] [id number] [address] [place] [address] Jan, Type 2 diabetes mellitus wit h complication E11.8 ; Chronic pain syndrome G89.4 ; Bilateral low back pain without sciatica M54.5 ; Essential hypertension I10 ; Anxiety F41.9 ; Chronic obstructive pulmonary disease, unspecified COPD type J44.9 and Thrush B37.0 [facility] [address] [id number] [address] [place] [address] Jan, [facility] [address] [id number] [address] [place] [address] Dec, [facility] [address] [id number] [address] [place] [address] Dec, [facility] [address] [id number] [address] [place] [address] Nov, [facility] [address] [id number] [address] [place] [address] Nov, [facility] [address] [id number] [address] [place] [address] Nov, [facility] [address] [id number] [address] [place] [address] Nov, Chest pain, unspecified type R07.9 and COPD exacerbation J44.1 [facility] [address] [id number] [address] [place] [address] October, [facility] [address] [id number] [address] [place] [address] Sep, [facility] [address] [id number] [address] [place] [address] Sep, Type 2 diabetes mellitus wit h complication E11.8 ; Chronic pain syndrome G89.4 ; Bilateral low back pain without sciatica M54.5 ; Essential hypertension I10 ; Anxiety F41.9 and COPD exacerbation J44.1 [facility] [address] [id number] [address] [place] [address] Aug, [facility] [address] [id number] [address] [place] [address] Aug, [facility] [address] [facility] [id number] [address] [place] [address] Aug, Chronic pain syndrome G89.4 [facility] [address] [facility] [id number] [address] [place] [address] Aug, [facility] [address] [facility] [id number] [address] [place] [address] Aug, [facility] [address] [facility] [id number] [address] [place] [address] Jul, Chronic pain syndrome G89.4 and Anxiety F41.9 [facility] [id number] [place] [address] Jul, [facility] [address] [id number] [address] [place] [address] Jun, Bilateral low back pain with out sciatica M54.5 ; Chronic pain syndrome G89.4 ; Anxiety F41.9 ; History of long-term use of multiple prescription drugs Z92.29 ; Type 2 diabetes mellitus with complication E11.8 ; Long-term use of high-risk medication Z79.899 ; Mixed hyperlipidemia E78.2 and Essential hypertension I10 [facility] [address] [facility] [id number] [address] [place] [address] Jun, [facility] [address] [facility] [id number] [address] [place] [address] Jun, [facility] [address] [id number] [address] [place] [address] May, [facility] [address] [facility] [id number] [address] [place] [address] Apr, [facility] [address] [facility] [id number] [address] [place] [address] Mar, [facility] [address] [facility] [id number] [address] [place] [address] Mar, Bilateral low back pain with out sciatica M54.5 ; History of long- term use of multiple prescription drugs Z92.29 ; Anxiety F41.9 ; Chronic pain syndrome G89.4 ; Type 2 diabetes mellitus with complication E11.8 ; Long-term use of high-risk medication Z79.899 and Mixed hyperlipidemia E78.2 [facility] [address] [facility] [id number] [address] [place] [address] Mar, [facility] [address] [id number] [address] [place] [address] Mar, Chronic pain syndrome G89.4 [facility] [address] [id number] [address] [place] [address] Mar, [facility] [address] [id number] [address] [place] [address] Feb, [facility] [address] [id number] [address] [place] [address] Feb, [facility] [address] [facility] [id number] [address] [place] [address] Feb, [facility] [address] [id number] [address] [place] [address] Feb, [facility] [address] [id number] [address] [place] [address] Jan, [facility] [address] [id number] [address] [place] [address] Jan, [facility] [address] [id number] [address] [place] [address] Dec, [facility] [address] [id number] [address] [place] [address] Dec, Lumbago 724.2 ; Diabetes thony litus without mention of complication, type II or unspecified type, not stated as uncontrolled 250.00 ; Essential hypertension, benign 401.1 ; Anxiety state, unspecified 300.00 ; Chronic pain 338.29 ; COPD with acute exacerbation 491.21 ; Tobacco abuse 305.1 ; Depression 311 and Hyperlipidemia 272.4 [facility] [address] [id number] [address] [place] [address] Dec, [facility] [address] [id number] [address] [place] [address] Nov, Lumbago 724.2 ; Diabetes thony litus without mention of complication, type II or unspecified type, not stated as uncontrolled 250.00 ; Essential hypertension, benign 401.1 ; Anxiety state, unspecified 300.00 ; Chronic pain 338.29 ; COPD with acute exacerbation 491.21 ; Tobacco abuse 305.1 and Depression 311 [facility] [address] [id number] [address] [place] [address] Nov, [facility] [address] [id number] [address] [place] [address] Nov, [facility] [address] [id number] [address] [place] [address] Nov, [facility] [address] [id number] [address] [place] [address] October, [facility] [address] [id number] [address] [place] [address] October, [facility] [address] [id number] [address] [place] [address] October, [facility] [address] [id number] [address] [place] [address] October, [facility] [address] [id number] [address] [place] [address] October, [facility] [address] [id number] [address] [place] [address] Sep, [facility] [address] [id number] [address] [place] [address] Sep, [facility] [address] [id number] [address] [place] [phone] Sep, [facility] [address] [id number] [facility] [place] [address] 23 Aug, 2014 [facility] [address] [id number] [address] [place] [address], [place] [address] 23 Aug, 2014 [facility] [address] [id number] [address] [place] [address], [place] [address] 20 Aug, 2014 [facility] [address] [id number] [address] [place] [address], [place] [address] 20 Aug, 2014 [facility] [address] [id number] [address] [place] [address], [place] [address] 19 Aug, 2014 [facility] [address] [id number] [address] [place] [address], [place] [address] 19 Aug, 2014 [facility] [address] [id number] [address] [place] [address], [place] [address] 16 Aug, 2014 [facility] [address] [id number] [address] [place] [address], [place] [address] 16 Aug, 2014 [facility] [address] [id number] [address] [place] [address], [place] [address] 16 Aug, 2014 [facility] [address] [id number] [address] [place] [address], [place] [address] 16 Aug, 2014 [facility] [address] [id number] [address] [place] [address], [place] [address] 13 Aug, 2014 [facility] [address] [id number] [address] [place] [address], [place] [address] 13 Aug, 2014 [facility] [address] [id number] [address] [place] [address], [place] [address] 24 Jul, 2014 [facility] [address] [id number] [address] [place] [address], [place] [address] 23 Jul, 2014 [facility] [address] [id number] [address] [place] [address], [place] [address] 23 Jul, 2014 [facility] [address] [id number] [address] [place] [address], [place] [address] Jul, [facility] [address] [id number] [address] [place] [address], [place] [address] Jul, [facility] [address] [id number] [address] [place] [address], [place] [address] Jul, [facility] [address] [id number] [address] [place] [address], [place] [address] Jul, [facility] [address] [id number] [address] [place] [address], [place] [address] Jun, [facility] [address] [id number] [address] [place] [address], [place] [address] Jun, [facility] [address] [id number] [address] [place] [address], [place] [address] Jun, [facility] [address] [id number] [address] [place] [address], [place] [address] Jun, [facility] [address] [id number] [address] [place] [address], [place] [address] Jun, [facility] [address] [id number] [address] [place] [address], [place] [address] Jun, [facility] [address] [id number] [address] [place] [address], [place] [address] Jun, [facility] [address] [id number] [address] [place] [address], [place] [address] Jun, [facility] [address] [id number] [address] [place] [address], [place] [address] Jun, [facility] [address] [id number] [address] [place] [address], [place] [address] May, [facility] [address] [id number] [address] [place] [address], [place] [address] May, [facility] [address] [id number] [address] [place] [address], [place] [address] May, [facility] [address] [id number] [address] [place] [address], [place] [address] 30 May, 2014 [facility] [address] [id number] [address] [place] [address], [place] [address] 17 May, 2014 [facility] [address] [id number] [address] [place] [address], [place] [address] 15 May, 2014 [facility] [address] [id number] [address] [place] [address], [place] [address] 15 May, 2014 [facility] [address] [id number] [address] [place] [address], [place] [address] 12 May, 2014 [facility] [address] [id number] [address] [place] [address], [place] [address] May, [facility] [address] [id number] [address] [place] [address], [place] [address] May, [facility] [address] [id number] [address] [place] [address], [place] [address] May, [facility] [address] [id number] [address] [place] [address], [place] [address] Apr, [facility] [address] [id number] [address] [place] [address], [place] [address] Apr, [facility] [address] [id number] [address] [place] [address], [place] [address] Apr, [facility] [address] [id number] [address] [place] [address], [place] [address] Apr, [facility] [address] [id number] [address] [place] [address], [place] [address] Mar, [facility] [address] [id number] [address] [place] [address], [place] [address] 29 Mar, 2014 [facility] [address] [id number] [address] [place] [address], [place] [address] 2014 [facility] [address] [id number] [address] [place] [address], [place] [address] 2014 [facility] [address] [id number] [address] [place] [address], [place] [address] 08 Mar, 2014 [facility] [address] [id number] [address] [place] [address], [place] [address] 08 Mar, 2014 [facility] [address] [id number] [address] [place] [address], [place] [address] 29 Feb, 2014 [facility] [address] [id number] [address] [place] [address], [place] [address] 29 Feb, 2014 [facility] [address] [id number] [address] [place] [address], [place] [address] 17 Feb, 2014 [facility] [address] [id number] [address] [place] [address], [place] [address] 16 Feb, 2014 [facility] [address] [id number] [address] [place] [address], [place] [address] 16 Feb, 2014 [facility] [address] [id number] [address] [place] [address], [place] [address] Feb, [facility] [address] [id number] [address] [place] [address], [place] [address] Feb, [facility] [address] [id number] [address] [place] [address], [place] [address] Jan, [facility] [address] [id number] [address] [place] [address], [place] [address] Jan, [facility] [address] [id number] [address] [place] [address], [place] [address] Jan, [facility] [address] [id number] [address] [place] [address], [place] [address] Jan, [facility] [address] [id number] [address] [place] [address], [place] [address] Dec, [facility] [address] [id number] [address] [place] [address], [place] [address] Dec, [facility] [address] [id number] [address] [place] [address] Dec, [facility] [address] [facility] [id number] [address] [address] Dec, IMMUNIZATIONS No Known Immunizations SOCIAL HISTORY Never Assessed REASON FOR VISIT EMR-[facility] [place] PLAN OF CARE VITAL SIGNS MEDICATIONS Unknown [...]
--- OUTSIDE RECORDS SUMMARY | 2019-08-23 12:15 | XMS REPORT ---
Author Author RICOVeronica Ferrell ANGE Organization [facility] Address [address] [place] [address] Care Team Providers Care Photographic Editor Name Role Phone ANGE REYNOSO Unavailable PROBLEMS Type Condition ICD9-CM Code JOA22-UM Code Onset Dates Condition S tatus SNOMED Code Problem Bilateral low back pain without sciatica M54.5 Active 419010508 Problem Anxiety F41.9 Active 70864248 Problem Chronic pain syndrome G89.4 Active 119025701 Problem Thrush B37.0 Active 01598862 Problem Type 2 diabetes mellitus with complication E11.8 Active 97696265 Problem COPD with acute exacerbation J44.1 A ctive 059072562 Problem History of long-term use of multiple prescription drugs Z92.29 Active 325818987 Problem Essential hypertension I10 Active 09566984 Problem Mixed hyperlipidemia E78.2 Active 636124086 Problem Long-term use of high-risk medication Z79.899 Active 796070812 Problem Chronic obstructive pulmonary disease, unspecified COPD ty pe J44.9 Active 80140380 ALLERGIES No Information ENCOUNTERS Encounter Location Date Diagnosis [facility] [address] [id number] [address] [place] [id number] Nov, [facility] [address] [id number] [address] [place] [phone] October, Scabies B86 [facility] [address] [id number] [address] [place] [id number] October, Acute upper respiratory infe ction, unspecified J06.9 [facility] [address] [id number] [address] [place] [phone] October, Dysuria R30.0 and Coughing R 05 [facility] [id number] [place] [address] Aug, [facility] [address] [id number] [address] [place] [phone] Jun, [facility] [address] [id number] [address] [place] [phone] Jun, [facility] [address] [id number] [address] [place] [phone] Jun, [facility] [address] [id number] [address] [place] [id number] May, [facility] [address] [id number] [address] [place] [phone] May, [facility] [address] [facility] [id number] [address] [place] [id number] May, [facility] [address] [facility] [id number] [address] [place] [id number] Apr, Type 2 diabetes mellitus wit h complication E11.8 ; Chronic pain syndrome G89.4 ; Bilateral low back pain without sciatica M54.5 ; Essential hypertension I10 ; Anxiety F41.9 ; COPD with acute exacerbation J44.1 ; Pain of left hand M79.642 and Pain in right hand M79.641 [facility] [address] [id number] [address] [place] [id number] Apr, [facility] [address] [id number] [address] [place] [phone] Mar, [facility] [address] [id number] [address] [place] [phone] Mar, [facility] [address] [id number] [address] [place] [id number] Mar, [facility] [address] [facility] [id number] [address] [place] [phone] Feb, [facility] [address] [facility] [id number] [address] [place] [id number] Feb, [facility] [address] [id number] [address] [place] [id number] Jan, Type 2 diabetes mellitus wit h complication E11.8 ; Chronic pain syndrome G89.4 ; Bilateral low back pain without sciatica M54.5 ; Essential hypertension I10 ; Anxiety F41.9 ; Chronic obstructive pulmonary disease, unspecified COPD type J44.9 and Thrush B37.0 [facility] [address] [id number] [address] [place] [id number] Jan, [facility] [address] [id number] [address] [place] [phone] Dec, [facility] [address] [id number] [address] [place] [id number] Dec, [facility] [address] [id number] [address] [place] [phone] Nov, [facility] [address] [id number] [address] [place] [phone] Nov, [facility] [address] [id number] [address] [place] [phone] Nov, [facility] [address] [facility] [id number] [address] [place] [id number] Nov, Chest pain, unspecified type R07.9 and COPD exacerbation J44.1 [facility] [address] [id number] [address] [place] [phone] October, [facility] [address] [facility] [id number] [address] [place] [phone] Sep, [facility] [address] [id number] [address] [place] [id number] Sep, Type 2 diabetes mellitus wit h complication E11.8 ; Chronic pain syndrome G89.4 ; Bilateral low back pain without sciatica M54.5 ; Essential hypertension I10 ; Anxiety F41.9 and COPD exacerbation J44.1 [facility] [address] [facility] [id number] [address] [place] [phone] Aug, [facility] [address] [facility] [id number] [address] [place] [id number] Aug, [facility] [address] [facility] [id number] [address] [place] [id number] Aug, Chronic pain syndrome G89.4 [facility] [address] [facility] [id number] [address] [place] [phone] Aug, [facility] [id number] [place] [phone] Aug, [facility] [id number] [place] [phone] Jul, Chronic pain syndrome G89.4 and Anxiety F41.9 [facility] [address] [id number] [address] [place] [phone] Jul, [facility] [address] [address] Jun, Bilateral low back pain with out sciatica M54.5 ; Chronic pain syndrome G89.4 ; Anxiety F41.9 ; History of long-term use of multiple prescription drugs Z92.29 ; Type 2 diabetes mellitus with complication E11.8 ; Long-term use of high-risk medication Z79.899 ; Mixed hyperlipidemia E78.2 and Essential hypertension I10 [facility] [address] [id number] [address] [place] [id number] Jun, [facility] [address] [id number] [address] [place] [phone] Jun, [facility] [address] [facility] [id number] [address] [place] [phone] May, [facility] [address] [id number] [address] [place] [phone] Apr, [facility] [address] [id number] [address] [place] [phone] Mar, [facility] [address] [id number] [address] [place] [id number] Mar, Bilateral low back pain with out sciatica M54.5 ; History of long- term use of multiple prescription drugs Z92.29 ; Anxiety F41.9 ; Chronic pain syndrome G89.4 ; Type 2 diabetes mellitus with complication E11.8 ; Long-term use of high-risk medication Z79.899 and Mixed hyperlipidemia E78.2 [facility] [address] [id number] [address] [place] [id number] Mar, [facility] [address] [id number] [address] [place] [phone] Mar, Chronic pain syndrome G89.4 [facility] [address] [id number] [address] [place] [id number] Mar, [facility] [address] [id number] [address] [place] [phone] Feb, [facility] [address] [id number] [address] [place] [id number] Feb, [facility] [address] [id number] [address] [place] [phone] Feb, [facility] [address] [id number] [address] [place] [phone] Feb, [facility] [address] [id number] [address] [place] [phone] Jan, [facility] [address] [facility] [id number] [address] [place] [id number] Jan, [facility] [address] [id number] [address] [place] [id number] Dec, [facility] [address] [id number] [address] [place] [id number] Dec, Lumbago 724.2 ; Diabetes thony litus without mention of complication, type II or unspecified type, not stated as uncontrolled 250.00 ; Essential hypertension, benign 401.1 ; Anxiety state, unspecified 300.00 ; Chronic pain 338.29 ; COPD with acute exacerbation 491.21 ; Tobacco abuse 305.1 ; Depression 311 and Hyperlipidemia 272.4 [facility] [address] [id number] [address] [place] [phone] Dec, [facility] [address] [facility] [id number] [address] [place] [id number] Nov, Lumbago 724.2 ; Diabetes thony litus without mention of complication, type II or unspecified type, not stated as uncontrolled 250.00 ; Essential hypertension, benign 401.1 ; Anxiety state, unspecified 300.00 ; Chronic pain 338.29 ; COPD with acute exacerbation 491.21 ; Tobacco abuse 305.1 and Depression 311 [facility] [address] [id number] [address] [place] [phone] Nov, [facility] [address] [id number] [address] [place] [phone] Nov, [facility] [address] [id number] [address] [place] [phone] Nov, [facility] [address] [id number] [address] [place] [phone] October, [facility] [address] [id number] [address] [place] [phone] October, [facility] [address] [id number] [address] [place] [phone] October, [facility] [address] [id number] [address] [place] [phone] October, [facility] [address] [id number] [address] [place] [phone] October, [facility] [address] [id number] [address] [place] [phone] Sep, [facility] [address] [facility] [id number] [address] [place] [phone] Sep, [facility] [address] [id number] [address] [place] [address], [place] [address] 13 Sep, 2014 [facility] [address] [id number] [address] [place] [address], [place] [address] 23 Aug, 2014 [facility] [address] [id number] [address] [place] [address], [place] [address] 23 Aug, 2014 [facility] [address] [id number] [address] [place] [address], [place] [address] 20 Aug, 2014 [facility] [address] [id number] [address] [place] [address], [place] [address] 20 Aug, 2014 [facility] [address] [id number] [address] [place] [address], [place] [address] 19 Aug, 2014 [facility] [address] [id number] [address] [place] [address], [place] [address] 19 Aug, 2014 [facility] [address] [id number] [address] [place] [address], [place] [address] 16 Aug, 2014 [facility] [address] [id number] [address] [place] [address], [place] [address] 16 Aug, 2014 [facility] [address] [id number] [address] [place] [address], [place] [address] 16 Aug, 2014 [facility] [address] [id number] [address] [place] [address], [place] [address] 16 Aug, 2014 [facility] [address] [id number] [address] [place] [address], [place] [address] 13 Aug, 2014 [facility] [address] [id number] [address] [place] [address], [place] [address] 13 Aug, 2014 [facility] [address] [id number] [address] [place] [address], [place] [address] 24 Jul, 2014 [facility] [address] [id number] [address] [place] [address], [place] [address] 23 Jul, 2014 [facility] [address] [id number] [address] [place] [address], [place] [address] Jul, [facility] [address] [id number] [address] [place] [address], [place] [address] Jul, [facility] [address] [id number] [address] [place] [address], [place] [address] Jul, [facility] [address] [id number] [address] [place] [address], [place] [address] Jul, [facility] [address] [id number] [address] [place] [address], [place] [address] Jul, [facility] [address] [id number] [address] [place] [address], [place] [address] Jun, [facility] [address] [id number] [address] [place] [address], [place] [address] Jun, [facility] [address] [id number] [address] [place] [address], [place] [address] Jun, [facility] [address] [id number] [address] [place] [address], [place] [address] Jun, [facility] [address] [id number] [address] [place] [address], [place] [address] Jun, [facility] [address] [id number] [address] [place] [address], [place] [address] Jun, [facility] [address] [id number] [address] [place] [address], [place] [address] Jun, [facility] [address] [id number] [address] [place] [address], [place] [address] Jun, [facility] [address] [id number] [address] [place] [address], [place] [address] Jun, [facility] [address] [id number] [address] [place] [address], [place] [address] May, [facility] [address] [id number] [address] [place] [address], [place] [address] May, [facility] [address] [id number] [address] [place] [address], [place] [address] 30 May, 2014 [facility] [address] [id number] [address] [place] [address], [place] [address] 30 May, 2014 [facility] [address] [id number] [address] [place] [address], [place] [address] 17 May, 2014 [facility] [address] [id number] [address] [place] [address], [place] [address] 15 May, 2014 [facility] [address] [id number] [address] [place] [address], [place] [address] 15 May, 2014 [facility] [address] [id number] [address] [place] [address], [place] [address] 12 May, 2014 [facility] [address] [id number] [address] [place] [address], [place] [address] May, [facility] [address] [id number] [address] [place] [address], [place] [address] May, [facility] [address] [id number] [address] [place] [address], [place] [address] May, [facility] [address] [id number] [address] [place] [address], [place] [address] Apr, [facility] [address] [id number] [address] [place] [address], [place] [address] Apr, [facility] [address] [id number] [address] [place] [address], [place] [address] Apr, [facility] [address] [id number] [address] [place] [address], [place] [address] Apr, [facility] [address] [id number] [address] [place] [address], [place] [address] 29 Mar, 2014 [facility] [address] [id number] [address] [place] [address], [place] [address] 29 Mar, 2014 [facility] [address] [id number] [address] [place] [address], [place] [address] Mar, [facility] [address] [id number] [address] [place] [address], [place] [address] 2014 [facility] [address] [id number] [address] [place] [address], [place] [address] Mar, [facility] [address] [id number] [address] [place] [address], [place] [address] Mar, [facility] [address] [id number] [address] [place] [address], [place] [address] 29 Feb, 2014 [facility] [address] [id number] [address] [place] [address], [place] [address] 29 Feb, 2014 [facility] [address] [id number] [address] [place] [address], [place] [address] 17 Feb, 2014 [facility] [address] [id number] [address] [place] [address], [place] [address] 16 Feb, 2014 [facility] [address] [id number] [address] [place] [address], [place] [address] 16 Feb, 2014 [facility] [address] [id number] [address] [place] [address], [place] [address] Feb, [facility] [address] [id number] [address] [place] [address], [place] [address] 03 Feb, 2014 [facility] [address] [id number] [address] [place] [address], [place] [address] Jan, [facility] [address] [id number] [address] [place] [address], [place] [address] Jan, [facility] [address] [id number] [address] [place] [address], [place] [address] Jan, [facility] [address] [id number] [address] [place] [address], [place] [address] Jan, [facility] [address] [id number] [address] [place] [address], [place] [address] Dec, [facility] [address] [id number] [address] [address] Dec, [facility] [address] [facility] [id number] [address] [place] [id number] Dec, [facility] [address] [facility] [id number] [address] [place] [id number] Dec, IMMUNIZATIONS No Known Immunizations SOCIAL HISTORY [...]
--- OUTSIDE RECORDS SUMMARY | 2019-08-23 12:15 | XMS REPORT ---
Author Author RICOVeronica Ferrell ANGE Organization [facility] Address [address] [place] [address] Care Team Providers Care Remote Pilot Operator Name Role Phone ANGE REYNOSO Unavailable PROBLEMS Type Condition ICD9-CM Code [id number] Code Onset Dates Condition S tatus SNOMED Code Problem Bilateral low back pain without sciatica M54.5 Active 241204428 Problem Anxiety F41.9 Active 00342215 Problem Chronic pain syndrome G89.4 Active 231986249 Problem Thrush B37.0 Active 94838924 Problem Type 2 diabetes mellitus with complication E11.8 Active 58173444 Problem COPD with acute exacerbation J44.1 A ctive 001315515 Problem History of long-term use of multiple prescription drugs Z92.29 Active 197232286 Problem Essential hypertension I10 Active 36873197 Problem Mixed hyperlipidemia E78.2 Active 365289531 Problem Long-term use of high-risk medication Z79.899 Active 785435824 Problem Chronic obstructive pulmonary disease, unspecified COPD ty pe J44.9 Active 19752131 ALLERGIES No Information ENCOUNTERS Encounter Location Date Diagnosis [facility] [address] [id number] [address] [place] [id number] Nov, [facility] [address] [id number] [address] [place] [id number] October, Scabies B86 [facility] [address] [id number] [address] [place] [id number] October, Acute upper respiratory infe ction, unspecified J06.9 [facility] [address] [id number] [address] [place] [id number] October, Dysuria R30.0 and Coughing R 05 [facility] [id number] [place] [address] Aug, [facility] [address] [id number] [address] [place] [id number] Jun, [facility] [address] [id number] [address] [place] [id number] Jun, [facility] [address] [id number] [address] [place] [id number] Jun, [facility] [address] [id number] [address] [place] [id number] May, [facility] [address] [id number] [address] [place] [id number] May, [facility] [address] [facility] [id number] [address] [place] [id number] May, [facility] [address] [facility] [id number] [address] [place] [id number] Apr, Type 2 diabetes mellitus wit h complication E11.8 ; Chronic pain syndrome G89.4 ; Bilateral low back pain without sciatica M54.5 ; Essential hypertension I10 ; Anxiety F41.9 ; COPD with acute exacerbation J44.1 ; Pain of left hand M79.642 and Pain in right hand M79.641 [facility] [address] [id number] [address] [place] [id number] Apr, [facility] [address] [id number] [address] [place] [id number] Mar, [facility] [address] [id number] [address] [place] [id number] Mar, [facility] [address] [id number] [address] [place] [id number] Mar, [facility] [address] [facility] [id number] [address] [place] [id number] Feb, [facility] [address] [facility] [id number] [address] [place] [id number] Feb, [facility] [address] [id number] [address] [place] [id number] Jan, Type 2 diabetes mellitus wit h complication E11.8 ; Chronic pain syndrome G89.4 ; Bilateral low back pain without sciatica M54.5 ; Essential hypertension I10 ; Anxiety F41.9 ; Chronic obstructive pulmonary disease, unspecified COPD type J44.9 and Thrush B37.0 [facility] [address] [id number] [address] [place] [id number] Jan, [facility] [address] [id number] [address] [place] [id number] Dec, [facility] [address] [id number] [address] [place] [phone] Dec, [facility] [address] [id number] [address] [place] [id number] Nov, [facility] [address] [id number] [address] [place] [id number] Nov, [facility] [address] [id number] [address] [place] [phone] Nov, [facility] [address] [facility] [id number] [address] [place] [id number] Nov, Chest pain, unspecified type R07.9 and COPD exacerbation J44.1 [facility] [address] [id number] [address] [place] [id number] October, [facility] [address] [facility] [id number] [address] [place] [id number] Sep, [facility] [address] [id number] [address] [place] [id number] Sep, Type 2 diabetes mellitus wit h complication E11.8 ; Chronic pain syndrome G89.4 ; Bilateral low back pain without sciatica M54.5 ; Essential hypertension I10 ; Anxiety F41.9 and COPD exacerbation J44.1 [facility] [address] [facility] [id number] [address] [place] [id number] Aug, [facility] [address] [facility] [id number] [address] [place] [id number] Aug, [facility] [address] [facility] [id number] [address] [place] [id number] Aug, Chronic pain syndrome G89.4 [facility] [address] [facility] [id number] [address] [place] [address] Aug, [facility] [id number] [place] [id number] Aug, [facility] [id number] [place] [address] Jul, Chronic pain syndrome G89.4 and Anxiety F41.9 [facility] [address] [id number] [address] [place] [id number] Jul, [facility] [address] [address] Jun, Bilateral low back pain with out sciatica M54.5 ; Chronic pain syndrome G89.4 ; Anxiety F41.9 ; History of long-term use of multiple prescription drugs Z92.29 ; Type 2 diabetes mellitus with complication E11.8 ; Long-term use of high-risk medication Z79.899 ; Mixed hyperlipidemia E78.2 and Essential hypertension I10 [facility] [address] [id number] [address] [place] [id number] Jun, [facility] [address] [id number] [address] [place] [phone] Jun, [facility] [address] [facility] [id number] [address] [place] [id number] May, [facility] [address] [id number] [address] [place] [id number] Apr, [facility] [address] [id number] [address] [place] [id number] Mar, [facility] [address] [id number] [address] [place] [id number] Mar, Bilateral low back pain with out sciatica M54.5 ; History of long- term use of multiple prescription drugs Z92.29 ; Anxiety F41.9 ; Chronic pain syndrome G89.4 ; Type 2 diabetes mellitus with complication E11.8 ; Long-term use of high-risk medication Z79.899 and Mixed hyperlipidemia E78.2 [facility] [address] [id number] [address] [place] [id number] Mar, [facility] [address] [id number] [address] [place] [id number] Mar, Chronic pain syndrome G89.4 [facility] [id number] [address] [place] [phone] Mar, [facility] [address] [id number] [address] [place] [id number] Feb, [facility] [address] [id number] [address] [place] [id number] Feb, [facility] [address] [id number] [address] [place] [phone] Feb, [facility] [address] [id number] [address] [place] [phone] Feb, [facility] [address] [id number] [address] [place] [id number] Jan, [facility] [address] [facility] [id number] [address] [place] [id number] Jan, [facility] [address] [id number] [address] [place] [id number] Dec, [facility] [address] [id number] [address] [place] [id number] Dec, Lumbago 724.2 ; Diabetes thony litus without mention of complication, type II or unspecified type, not stated as uncontrolled 250.00 ; Essential hypertension, benign 401.1 ; Anxiety state, unspecified 300.00 ; Chronic pain 338.29 ; COPD with acute exacerbation 491.21 ; Tobacco abuse 305.1 ; Depression 311 and Hyperlipidemia 272.4 [facility] [address] [id number] [address] [place] [id number] Dec, [facility] [address] [facility] [id number] [address] [place] [id number] Nov, Lumbago 724.2 ; Diabetes thony litus without mention of complication, type II or unspecified type, not stated as uncontrolled 250.00 ; Essential hypertension, benign 401.1 ; Anxiety state, unspecified 300.00 ; Chronic pain 338.29 ; COPD with acute exacerbation 491.21 ; Tobacco abuse 305.1 and Depression 311 [facility] [address] [id number] [address] [place] [phone] Nov, [facility] [address] [id number] [address] [place] [id number] Nov, [facility] [address] [id number] [address] [place] [phone] Nov, [facility] [address] [id number] [address] [place] [phone] October, [facility] [address] [id number] [address] [place] [id number] October, [facility] [address] [id number] [address] [place] [id number] October, [facility] [address] [id number] [address] [place] [id number] October, [facility] [address] [id number] [address] [place] [phone] October, [facility] [address] [id number] [address] [place] [id number] Sep, [facility] [address] [facility] [id number] [address] [place] [phone] Sep, [facility] [address] [id number] [address] [place] [address], [place] [address] 13 Sep, 2014 [facility] [address] [id number] [address] [place] [address], [place] [address] 23 Aug, 2014 [facility] [address] [id number] [address] [place] [address], [place] [address] 23 Aug, 2014 [facility] [address] [id number] [address] [place] [address], [place] [address] 20 Aug, 2014 [facility] [address] [id number] [address] [place] [address], [place] [address] 20 Aug, 2014 [facility] [address] [id number] [address] [place] [address], [place] [address] 19 Aug, 2014 [facility] [address] [id number] [address] [place] [address], [place] [address] 19 Aug, 2014 [facility] [address] [id number] [address] [place] [address], [place] [address] 16 Aug, 2014 [facility] [address] [id number] [address] [place] [address], [place] [address] 16 Aug, 2014 [facility] [address] [id number] [address] [place] [address], [place] [address] 16 Aug, 2014 [facility] [address] [id number] [address] [place] [address], [place] [address] 16 Aug, 2014 [facility] [address] [id number] [address] [place] [address], [place] [address] 13 Aug, 2014 [facility] [address] [id number] [address] [place] [address], [place] [address] 13 Aug, 2014 [facility] [address] [id number] [address] [place] [address], [place] [address] 24 Jul, 2014 [facility] [address] [id number] [address] [place] [address], [place] [address] 23 Jul, 2014 [facility] [address] [id number] [address] [place] [address], [place] [address] Jul, [facility] [address] [id number] [address] [place] [address], [place] [address] Jul, [facility] [address] [id number] [address] [place] [address], [place] [address] Jul, [facility] [address] [id number] [address] [place] [address], [place] [address] Jul, [facility] [address] [id number] [address] [place] [address], [place] [address] Jul, [facility] [address] [id number] [address] [place] [address], [place] [address] Jun, [facility] [address] [id number] [address] [place] [address], [place] [address] Jun, [facility] [address] [id number] [address] [place] [address], [place] [address] Jun, [facility] [address] [id number] [address] [place] [address], [place] [address] Jun, [facility] [address] [id number] [address] [place] [address], [place] [address] Jun, [facility] [address] [id number] [address] [place] [address], [place] [address] Jun, [facility] [address] [id number] [address] [place] [address], [place] [address] Jun, [facility] [address] [id number] [address] [place] [address], [place] [address] Jun, [facility] [address] [id number] [address] [place] [address], [place] [address] Jun, [facility] [address] [id number] [address] [place] [address], [place] [address] May, [facility] [address] [id number] [address] [place] [address], [place] [address] May, [facility] [address] [id number] [address] [place] [address], [place] [address] 30 May, 2014 [facility] [address] [id number] [address] [place] [address], [place] [address] 30 May, 2014 [facility] [address] [id number] [address] [place] [address], [place] [address] 17 May, 2014 [facility] [address] [id number] [address] [place] [address], [place] [address] 15 May, 2014 [facility] [address] [id number] [address] [place] [address], [place] [address] 15 May, 2014 [facility] [address] [id number] [address] [place] [address], [place] [address] 12 May, 2014 [facility] [address] [id number] [address] [place] [address], [place] [address] May, [facility] [address] [id number] [address] [place] [address], [place] [address] May, [facility] [address] [id number] [address] [place] [address], [place] [address] May, [facility] [address] [id number] [address] [place] [address], [place] [address] Apr, [facility] [address] [id number] [address] [place] [address], [place] [address] Apr, [facility] [address] [id number] [address] [place] [address], [place] [address] Apr, [facility] [address] [id number] [address] [place] [address], [place] [address] Apr, [facility] [address] [id number] [address] [place] [address], [place] [address] 29 Mar, 2014 [facility] [address] [id number] [address] [place] [address], [place] [address] 29 Mar, 2014 [facility] [address] [id number] [address] [place] [address], [place] [address] Mar, [facility] [address] [id number] [address] [place] [address], [place] [address] 2014 [facility] [address] [id number] [address] [place] [address], [place] [address] Mar, [facility] [address] [id number] [address] [place] [address], [place] [address] Mar, [facility] [address] [id number] [address] [place] [address], [place] [address] 29 Feb, 2014 [facility] [address] [id number] [address] [place] [address], [place] [address] 29 Feb, 2014 [facility] [address] [id number] [address] [place] [address], [place] [address] 17 Feb, 2014 [facility] [address] [id number] [address] [place] [address], [place] [address] 16 Feb, 2014 [facility] [address] [id number] [address] [place] [address], [place] [address] 16 Feb, 2014 [facility] [address] [id number] [address] [place] [address], [place] [address] Feb, [facility] [address] [id number] [address] [place] [address], [place] [address] 03 Feb, 2014 [facility] [address] [id number] [address] [place] [address], [place] [address] Jan, [facility] [address] [id number] [address] [place] [address], [place] [address] Jan, [facility] [address] [id number] [address] [place] [address], [place] [address] Jan, [facility] [address] [id number] [address] [place] [address], [place] [address] Jan, [facility] [address] [id number] [address] [place] [address], [place] [address] Dec, [facility] [address] [id number] [place] [address] Dec, [facility] [address] [facility] [id number] [address] [place] [address] Dec, [facility] [address] [facility] [id number] [address] [place] [address] Dec, IMMUNIZATIONS No Known Immunizations SOCIAL HISTORY [...]
--- OUTSIDE RECORDS SUMMARY | 2019-08-23 12:15 | XMS REPORT ---
Author Author Veronica FLEMING Organization [facility] Address [address] [place] [address] Care Team Providers Care Lead Nuclear Medicine Technologist Name Role Phone LUTHER FLEMING Unavailable PROBLEMS Type Condition ICD9-CM Code HBQ37-GB Code Onset Dates Condition S tatus SNOMED Code Problem Bilateral low back pain without sciatica M54.5 Active 612544958 Problem Anxiety F41.9 Active 99971967 Problem Chronic pain syndrome G89.4 Active 763440940 Problem Thrush B37.0 Active 10132403 Problem Type 2 diabetes mellitus with complication E11.8 Active 91644632 Problem COPD with acute exacerbation J44.1 A ctive 715148641 Problem History of long-term use of multiple prescription drugs Z92.29 Active 551469839 Problem Essential hypertension I10 Active 74468070 Problem Mixed hyperlipidemia E78.2 Active 075670502 Problem Long-term use of high-risk medication Z79.899 Active 080657231 Problem Chronic obstructive pulmonary disease, unspecified COPD ty pe J44.9 Active [id number] ALLERGIES No Information ENCOUNTERS Encounter Location Date Diagnosis [facility] [address] [id number] [address] [place] [phone] Nov, [facility] [address] [id number] [address] [place] [phone] October, Scabies B86 [facility] WALK IN [facility] [address] [id number] [address] [place] [phone] October, Acute upper respiratory infe ction, unspecified J06.9 [facility] WALK IN [facility] [address] [id number] [address] [place] [phone] October, Dysuria R30.0 and Coughing R 05 [facility] [address] [id number] [address] [place] [id number] Aug, [facility] [address] [id number] [address] [place] [phone] Jun, [facility] [address] [id number] [address] [place] [phone] Jun, [facility] [address] [facility] [id number] [address] [place] [phone] Jun, [facility] [address] [place] [address] [id number] [address] [place] [id number] May, [facility] [address] [place] [address] [id number] [address] [place] [id number] May, [facility] [address] [place] [address] [id number] [address] [place] [id number] May, [facility] [address] [facility] [id number] [address] [place] [id number] Apr, Type 2 diabetes mellitus wit h complication E11.8 ; Chronic pain syndrome G89.4 ; Bilateral low back pain without sciatica M54.5 ; Essential hypertension I10 ; Anxiety F41.9 ; COPD with acute exacerbation J44.1 ; Pain of left hand M79.642 and Pain in right hand M79.641 [facility] [address] [place] [address] [id number] [address] [place] [id number] Apr, [facility] [address] [place] [address] [id number] [address] [place] [id number] Mar, [facility] [address] [place] [address] [id number] [address] [place] [id number] Mar, [facility] [address] [place] [address] [id number] [address] [place] [id number] Mar, [facility] [address] [facility] [id number] [address] [place] [id number] 08 Feb, 2016 [facility] [address] [facility] [id number] [address] [place] [id number] Feb, [facility] [address] [place] [address] [id number] [address] [place] [id number] Jan, Type 2 diabetes mellitus wit h complication E11.8 ; Chronic pain syndrome G89.4 ; Bilateral low back pain without sciatica M54.5 ; Essential hypertension I10 ; Anxiety F41.9 ; Chronic obstructive pulmonary disease, unspecified COPD type J44.9 and Thrush B37.0 [facility] [address] [place] [address] [id number] [address] [place] [phone] Jan, [facility] [address] [place] [address] [id number] [address] [place] [id number] Dec, [facility] [address] [place] [address] [id number] [address] [place] [id number] Dec, [facility] [address] [place] [address] [id number] [address] [place] [id number] Nov, [facility] [address] [id number] [address] [place] [id number] Nov, [facility] [address] [id number] [address] [place] [phone] Nov, [facility] [address] [id number] [address] [place] [id number] Nov, Chest pain, unspecified type R07.9 and COPD exacerbation J44.1 [facility] [address] [place] [address] [id number] [address] [place] [phone] October, [facility] [address] [facility] [id number] [address] [place] [id number] Sep, [facility] [address] [place] [address] [id number] [address] [place] [id number] Sep, Type 2 diabetes mellitus wit h complication E11.8 ; Chronic pain syndrome G89.4 ; Bilateral low back pain without sciatica M54.5 ; Essential hypertension I10 ; Anxiety F41.9 and COPD exacerbation J44.1 [facility] [address] [facility] [id number] [address] [place] [phone] Aug, [facility] [address] [facility] [id number] [address] [place] [phone] Aug, [facility] [address] [facility] [id number] [address] [place] [id number] Aug, Chronic pain syndrome G89.4 [facility] [address] [facility] [id number] [address] [place] [id number] Aug, [facility] [address] [id number] [address] [place] [phone] Aug, [facility] [address] [facility] [id number] [address] [place] [phone] Jul, Chronic pain syndrome G89.4 and Anxiety F41.9 [facility] [address] [id number] [address] [place] [phone] Jul, [facility] [id number] [place] [address] Jun, Bilateral low back pain with out sciatica M54.5 ; Chronic pain syndrome G89.4 ; Anxiety F41.9 ; History of long-term use of multiple prescription drugs Z92.29 ; Type 2 diabetes mellitus with complication E11.8 ; Long-term use of high-risk medication Z79.899 ; Mixed hyperlipidemia E78.2 and Essential hypertension I10 [facility] [address] [facility] [id number] [address] [place] [id number] Jun, [facility] [address] [id number] [address] [place] [id number] Jun, [facility] [address] [facility] [id number] [address] [place] [id number] May, [facility] [address] [id number] [address] [place] [phone] Apr, [facility] [address] [id number] [address] [place] [id number] Mar, [facility] [id number] [place] [id number] Mar, Bilateral low back pain with out sciatica M54.5 ; History of long- term use of multiple prescription drugs Z92.29 ; Anxiety F41.9 ; Chronic pain syndrome G89.4 ; Type 2 diabetes mellitus with complication E11.8 ; Long-term use of high-risk medication Z79.899 and Mixed hyperlipidemia E78.2 [facility] [address] [facility] [id number] [address] [place] [phone] Mar, [facility] [address] [id number] [address] [place] [address] Mar, Chronic pain syndrome G89.4 [facility] [address] [id number] [address] [place] [phone] Mar, [facility] [address] [id number] [address] [place] [id number] Feb, [facility] [address] [id number] [address] [place] [id number] Feb, [facility] [address] [id number] [address] [place] [phone] Feb, [facility] [address] [id number] [address] [place] [id number] Feb, [facility] [address] [id number] [address] [place] [id number] Jan, [facility] [address] [facility] [id number] [address] [place] [id number] Jan, [facility] [address] [id number] [address] [place] [id number] Dec, [facility] [address] [id number] [address] [place] [id number] Dec, Lumbago 724.2 ; Diabetes thony litus without mention of complication, type II or unspecified type, not stated as uncontrolled 250.00 ; Essential hypertension, benign 401.1 ; Anxiety state, unspecified 300.00 ; Chronic pain 338.29 ; COPD with acute exacerbation 491.21 ; Tobacco abuse 305.1 ; Depression 311 and Hyperlipidemia 272.4 [facility] [address] [id number] [address] [place] [id number] Dec, [facility] [address] [facility] [id number] [address] [place] [id number] Nov, Lumbago 724.2 ; Diabetes thony litus without mention of complication, type II or unspecified type, not stated as uncontrolled 250.00 ; Essential hypertension, benign 401.1 ; Anxiety state, unspecified 300.00 ; Chronic pain 338.29 ; COPD with acute exacerbation 491.21 ; Tobacco abuse 305.1 and Depression 311 [facility] [address] [id number] [address] [place] [id number] Nov, [facility] [address] [facility] [id number] [address] [place] [id number] Nov, [facility] [address] [id number] [address] [place] [id number] Nov, [facility] [address] [id number] [address] [place] [phone] October, [facility] [address] [facility] [id number] [address] [place] [id number] October, [facility] [address] [id number] [address] [place] [id number] October, [facility] [address] [id number] [address] [place] [id number] October, [facility] [address] [id number] [address] [place] [phone] October, [facility] [address] [id number] [address] [place] [phone] Sep, [facility] [address] [facility] [id number] [address] [place] [id number] Sep, [facility] [address] [id number] [facility] [place] [address] 13 Sep, 2014 [facility] [address] [id number] [address] [place] [address], [place] [address] 23 Aug, 2014 [facility] [address] [id number] [address] [place] [address], [place] [address] 23 Aug, 2014 [facility] [address] [id number] [address] [place] [address], [place] [address] 20 Aug, 2014 [facility] [address] [id number] [address] [place] [address], [place] [address] 20 Aug, 2014 [facility] [address] [id number] [address] [place] [address], [place] [address] 19 Aug, 2014 [facility] [address] [id number] [address] [place] [address], [place] [address] 19 Aug, 2014 [facility] [address] [id number] [address] [place] [address], [place] [address] 16 Aug, 2014 [facility] [address] [id number] [address] [place] [address], [place] [address] 16 Aug, 2014 [facility] [address] [id number] [address] [place] [address], [place] [address] 16 Aug, 2014 [facility] [address] [id number] [address] [place] [address], [place] [address] 16 Aug, 2014 [facility] [address] [id number] [address] [place] [address], [place] [address] 13 Aug, 2014 [facility] [address] [id number] [address] [place] [address], [place] [address] 13 Aug, 2014 [facility] [address] [id number] [address] [place] [address], [place] [address] 24 Jul, 2014 [facility] [address] [id number] [address] [place] [address], [place] [address] 23 Jul, 2014 [facility] [address] [id number] [address] [place] [address], [place] [address] Jul, [facility] [address] [id number] [address] [place] [address], [place] [address] Jul, [facility] [address] [id number] [address] [place] [address], [place] [address] Jul, [facility] [address] [id number] [address] [place] [address], [place] [address] Jul, [facility] [address] [id number] [address] [place] [address], [place] [address] Jul, [facility] [address] [id number] [address] [place] [address], [place] [address] Jun, [facility] [address] [id number] [address] [place] [address], [place] [address] Jun, [facility] [address] [id number] [address] [place] [address], [place] [address] Jun, [facility] [address] [id number] [address] [place] [address], [place] [address] Jun, [facility] [address] [id number] [address] [place] [address], [place] [address] Jun, [facility] [address] [id number] [address] [place] [address], [place] [address] Jun, [facility] [address] [id number] [address] [place] [address], [place] [address] Jun, [facility] [address] [id number] [address] [place] [address], [place] [address] Jun, [facility] [address] [id number] [address] [place] [address], [place] [address] Jun, [facility] [address] [id number] [address] [place] [address], [place] [address] May, [facility] [address] [id number] [address] [place] [address], [place] [address] May, [facility] [address] [id number] [address] [place] [address], [place] [address] 30 May, 2014 [facility] [address] [id number] [address] [place] [address], [place] [address] 30 May, 2014 [facility] [address] [id number] [address] [place] [address], [place] [address] 17 May, 2014 [facility] [address] [id number] [address] [place] [address], [place] [address] 15 May, 2014 [facility] [address] [id number] [address] [place] [address], [place] [address] 15 May, 2014 [facility] [address] [id number] [address] [place] [address], [place] [address] 12 May, 2014 [facility] [address] [id number] [address] [place] [address], [place] [address] May, [facility] [address] [id number] [address] [place] [address], [place] [address] May, [facility] [address] [id number] [address] [place] [address], [place] [address] May, [facility] [address] [id number] [address] [place] [address], [place] [address] Apr, [facility] [address] [id number] [address] [place] [address], [place] [address] Apr, [facility] [address] [id number] [address] [place] [address], [place] [address] Apr, [facility] [address] [id number] [address] [place] [address], [place] [address] Apr, [facility] [address] [id number] [address] [place] [address], [place] [address] Mar, [facility] [address] [id number] [address] [place] [address], [place] [address] 29 Mar, 2014 [facility] [address] [id number] [address] [place] [address], [place] [address] 2014 [facility] [address] [id number] [address] [place] [address] [address] 2014 [facility] [address] [id number] [address] [place] [address], [place] [address] Mar, [facility] [address] [id number] [address] [place] [address], [place] [address] Mar, [facility] [address] [id number] [address] [place] [address], [place] [address] 29 Feb, 2014 [facility] [address] [id number] [address] [place] [address], [place] [address] 29 Feb, 2014 [facility] [address] [id number] [address] [place] [address], [place] [address] 17 Feb, 2014 [facility] [address] [id number] [address] [place] [address], [place] [address] 16 Feb, 2014 [facility] [address] [id number] [address] [place] [address], [place] [address] 16 Feb, 2014 [facility] [address] [id number] [address] [place] [address], [place] [address] Feb, [facility] [address] [id number] [address] [place] [address], [place] [address] 03 Feb, 2014 [facility] [address] [id number] [address] [place] [address], [place] [address] Jan, [facility] [address] [id number] [address] [place] [address], [place] [address] Jan, [facility] [address] [id number] [address] [place] [address], [place] [address] Jan, [facility] [address] [id number] [address] [place] [address], [place] [address] Jan, [facility] [address] [id number] [address] [place] [address], [place] [address] Dec, [facility] [address] [id number] [address] [place] [address], [place] [address] Dec, [facility] [address] [facility] [id number] [address] [address] Dec, [facility] [address] [facility] [id number] [address] [place] [address] Dec, IMMUNIZATIONS No Known Immunizations SOCIAL HISTORY [...]
--- OUTSIDE RECORDS SUMMARY | 2019-08-23 12:15 | XMS REPORT ---
Author Author RICOVeronica Ferrell ANGE Organization [facility] Address [address] [place] [address] Care Team Providers Care Casing Trimmer Name Role Phone ANGE REYNOSO Unavailable PROBLEMS Type Condition ICD9-CM Code WZW10-XK Code Onset Dates Condition S tatus SNOMED Code Problem Bilateral low back pain without sciatica M54.5 Active 889246894 Problem Anxiety F41.9 Active 87972283 Problem Chronic pain syndrome G89.4 Active 710241232 Problem Thrush B37.0 Active 47478197 Problem Type 2 diabetes mellitus with complication E11.8 Active 51680742 Problem COPD with acute exacerbation J44.1 A ctive 333431484 Problem History of long-term use of multiple prescription drugs Z92.29 Active 150094832 Problem Essential hypertension I10 Active 50179671 Problem Mixed hyperlipidemia E78.2 Active 962040466 Problem Long-term use of high-risk medication Z79.899 Active 114718488 Problem Chronic obstructive pulmonary disease, unspecified COPD ty pe J44.9 Active 15523359 ALLERGIES No Information ENCOUNTERS Encounter Location Date Diagnosis [facility] [id number] [address] [place] [address] Nov, [facility] [address] [id number] [address] [place] [address] October, Scabies B86 [facility] [address] [id number] [address] [place] [address] October, Acute upper respiratory infe ction, unspecified J06.9 [facility] [address] [id number] [address] [place] [id number] October, Dysuria R30.0 and Coughing R 05 [facility] [id number] [place] [phone] Aug, [facility] [address] [id number] [address] [place] [address] Jun, [facility] [address] [id number] [address] [place] [address] Jun, [facility] [address] [id number] [address] [place] [phone] Jun, [facility] [address] [id number] [address] [place] [phone] May, [facility] [address] [id number] [address] [place] [address] May, [facility] [address] [facility] [id number] [address] [place] [address] May, [facility] [address] [facility] [id number] [address] [place] [address] Apr, Type 2 diabetes mellitus wit h complication E11.8 ; Chronic pain syndrome G89.4 ; Bilateral low back pain without sciatica M54.5 ; Essential hypertension I10 ; Anxiety F41.9 ; COPD with acute exacerbation J44.1 ; Pain of left hand M79.642 and Pain in right hand M79.641 [facility] [address] [id number] [address] [place] [address] Apr, [facility] [address] [id number] [address] [place] [address] Mar, [facility] [address] [id number] [address] [place] [phone] Mar, [facility] [address] [id number] [address] [place] [phone] Mar, [facility] [address] [facility] [id number] [address] [place] [id number] Feb, [facility] [address] [facility] [id number] [address] [place] [phone] Feb, [facility] [address] [id number] [address] [place] [phone] Jan, Type 2 diabetes mellitus wit h complication E11.8 ; Chronic pain syndrome G89.4 ; Bilateral low back pain without sciatica M54.5 ; Essential hypertension I10 ; Anxiety F41.9 ; Chronic obstructive pulmonary disease, unspecified COPD type J44.[address] [facility] [address] [id number] [address] [place] [id number] Jan, [facility] [address] [id number] [address] [place] [address] Dec, [facility] [address] [id number] [address] [place] [phone] Dec, [facility] [address] [id number] [address] [place] [id number] Nov, [facility] [address] [id number] [address] [place] [phone] Nov, [facility] [address] [id number] [address] [place] [phone] Nov, [facility] [address] [facility] [id number] [address] [place] [id number] Nov, Chest pain, unspecified type R07.9 and COPD exacerbation J44.1 [facility] [address] [id number] [address] [place] [phone] October, [facility] [address] [facility] [id number] [address] [place] [phone] Sep, [facility] [address] [id number] [address] [place] [address] Sep, Type 2 diabetes mellitus wit h complication E11.8 ; Chronic pain syndrome G89.4 ; Bilateral low back pain without sciatica M54.5 ; Essential hypertension I10 ; Anxiety F41.9 and COPD exacerbation J44.1 [facility] [address] [facility] [id number] [address] [place] [phone] Aug, [facility] [address] [facility] [id number] [address] [place] [address] Aug, [facility] [address] [facility] [id number] [address] [place] [address] Aug, Chronic pain syndrome G89.4 [facility] [address] [facility] [id number] [address] [place] [phone] Aug, [facility] [id number] [place] [phone] Aug, [facility] [id number] [place] [address] Jul, Chronic pain syndrome G89.[address] [facility] [address] [id number] [address] [place] [phone] Jul, [facility] [address] [address] Jun, Bilateral low back pain with out sciatica M54.5 ; Chronic pain syndrome G89.4 ; Anxiety F41.9 ; History of long-term use of multiple prescription drugs Z92.29 ; Type 2 diabetes mellitus with complication E11.8 ; Long-term use of high-risk medication Z79.899 ; Mixed hyperlipidemia E78.2 and Essential hypertension I10 [facility] [address] [id number] [address] [place] [phone] Jun, [facility] [address] [id number] [address] [place] [phone] Jun, [facility] [address] [facility] [id number] [address] [place] [phone] May, [facility] [address] [id number] [address] [place] [phone] Apr, [facility] [address] [id number] [address] [place] [phone] Mar, [facility] [address] [id number] [address] [place] [address] Mar, Bilateral low back pain with out sciatica M54.5 ; History of long- term use of multiple prescription drugs Z92.29 ; Anxiety F41.9 ; Chronic pain syndrome G89.4 ; Type 2 diabetes mellitus with complication E11.8 ; Long-term use of high-risk medication Z79.899 and Mixed hyperlipidemia E78.2 [facility] [id number] [address] [place] [phone] Mar, [facility] [address] [id number] [address] [place] [phone] Mar, Chronic pain syndrome G89.4 [facility] [id number] [address] [place] [phone] Mar, [facility] [id number] [address] [place] [phone] Feb, [facility] [address] [id number] [address] [place] [id number] Feb, [facility] [address] [id number] [address] [place] [phone] Feb, [facility] [address] [id number] [address] [place] [phone] Feb, [facility] [address] [id number] [address] [place] [phone] Jan, [facility] [address] [facility] [id number] [address] [place] [phone] Jan, [facility] [id number] [address] [place] [id number] Dec, [facility] [id number] [address] [place] [address] Dec, Lumbago 724.2 ; Diabetes thony litus without mention of complication, type II or unspecified type, not stated as uncontrolled 250.00 ; Essential hypertension, benign 401.1 ; Anxiety state, unspecified 300.00 ; Chronic pain 338.29 ; COPD with acute exacerbation 491.21 ; Tobacco abuse 305.1 ; Depression [address] [facility] [address] [id number] [address] [place] [address] Dec, [facility] [address] [facility] [id number] [address] [place] [id number] Nov, Lumbago 724.2 ; Diabetes thony litus without mention of complication, type II or unspecified type, not stated as uncontrolled 250.00 ; Essential hypertension, benign 401.1 ; Anxiety state, unspecified 300.00 ; Chronic pain 338.29 ; COPD with acute exacerbation 491.21 ; Tobacco abuse 305.[address] [facility] [address] [id number] [address] [place] [address] Nov, [facility] [address] [id number] [address] [place] [id number] Nov, [facility] [address] [id number] [address] [place] [address] Nov, [facility] [address] [id number] [address] [place] [address] October, [facility] [address] [id number] [address] [place] [id number] October, [facility] [address] [id number] [address] [place] [phone] October, [facility] [address] [id number] [address] [place] [phone] October, [facility] [address] [id number] [address] [place] [phone] October, [facility] [address] [id number] [address] [place] [phone] Sep, [facility] [address] [facility] [id number] [address] [place] [phone] Sep, [facility] [address] [id number] [address] [place] [address], [place] [address] 13 Sep, 2014 [facility] [address] [id number] [address] [place] [address], [place] [address] 23 Aug, 2014 [facility] [address] [id number] [address] [place] [address], [place] [address] 23 Aug, 2014 [facility] [address] [id number] [address] [place] [address], [place] [address] 20 Aug, 2014 [facility] [address] [id number] [address] [place] [address], [place] [address] 20 Aug, 2014 [facility] [address] [id number] [address] [place] [address], [place] [address] 19 Aug, 2014 [facility] [address] [id number] [address] [place] [address], [place] [address] 19 Aug, 2014 [facility] [address] [id number] [address] [place] [address], [place] [address] 16 Aug, 2014 [facility] [address] [id number] [address] [place] [address], [place] [address] 16 Aug, 2014 [facility] [address] [id number] [address] [place] [address], [place] [address] 16 Aug, 2014 [facility] [address] [id number] [address] [place] [address], [place] [address] 16 Aug, 2014 [facility] [address] [id number] [address] [place] [address], [place] [address] 13 Aug, 2014 [facility] [address] [id number] [address] [place] [address], [place] [address] 13 Aug, 2014 [facility] [address] [id number] [address] [place] [address], [place] [address] 24 Jul, 2014 [facility] [address] [id number] [address] [place] [address], [place] [address] 23 Jul, 2014 [facility] [address] [id number] [address] [place] [address], [place] [address] Jul, [facility] [address] [id number] [address] [place] [address], [place] [address] Jul, [facility] [address] [id number] [address] [place] [address], [place] [address] Jul, [facility] [address] [id number] [address] [place] [address], [place] [address] Jul, [facility] [address] [id number] [address] [place] [address], [place] [address] Jul, [facility] [address] [id number] [address] [place] [address], [place] [address] Jun, [facility] [address] [id number] [address] [place] [address], [place] [address] Jun, [facility] [address] [id number] [address] [place] [address], [place] [address] Jun, [facility] [address] [id number] [address] [place] [address], [place] [address] Jun, [facility] [address] [id number] [address] [place] [address], [place] [address] Jun, [facility] [address] [id number] [address] [place] [address], [place] [address] Jun, [facility] [address] [id number] [address] [place] [address], [place] [address] Jun, [facility] [address] [id number] [address] [place] [address], [place] [address] Jun, [facility] [address] [id number] [address] [place] [address], [place] [address] Jun, [facility] [address] [id number] [address] [place] [address], [place] [address] May, [facility] [address] [id number] [address] [place] [address], [place] [address] May, [facility] [address] [id number] [address] [place] [address], [place] [address] 30 May, 2014 [facility] [address] [id number] [address] [place] [address], [place] [address] 30 May, 2014 [facility] [address] [id number] [address] [place] [address], [place] [address] 17 May, 2014 [facility] [address] [id number] [address] [place] [address], [place] [address] 15 May, 2014 [facility] [address] [id number] [address] [place] [address], [place] [address] 15 May, 2014 [facility] [address] [id number] [address] [place] [address], [place] [address] 12 May, 2014 [facility] [address] [id number] [address] [place] [address], [place] [address] May, [facility] [address] [id number] [address] [place] [address], [place] [address] May, [facility] [address] [id number] [address] [place] [address], [place] [address] May, [facility] [address] [id number] [address] [place] [address], [place] [address] Apr, [facility] [address] [id number] [address] [place] [address], [place] [address] Apr, [facility] [address] [id number] [address] [place] [address], [place] [address] Apr, [facility] [address] [id number] [address] [place] [address], [place] [address] Apr, [facility] [address] [id number] [address] [place] [address], [place] [address] 29 Mar, 2014 [facility] [address] [id number] [address] [place] [address], [place] [address] 29 Mar, 2014 [facility] [address] [id number] [address] [place] [address], [place] [address] Mar, [facility] [address] [id number] [address] [place] [address], [place] [address] 2014 [facility] [address] [id number] [address] [place] [address], [place] [address] Mar, [facility] [address] [id number] [address] [place] [address], [place] [address] Mar, [facility] [address] [id number] [address] [place] [address], [place] [address] 29 Feb, 2014 [facility] [address] [id number] [address] [place] [address], [place] [address] 29 Feb, 2014 [facility] [address] [id number] [address] [place] [address], [place] [address] 17 Feb, 2014 [facility] [address] [id number] [address] [place] [address], [place] [address] 16 Feb, 2014 [facility] [address] [id number] [address] [place] [address], [place] [address] 16 Feb, 2014 [facility] [address] [id number] [address] [place] [address], [place] [address] Feb, [facility] [address] [id number] [address] [place] [address], [place] [address] 03 Feb, 2014 [facility] [address] [id number] [address] [place] [address], [place] [address] Jan, [facility] [address] [id number] [address] [place] [address], [place] [address] Jan, [facility] [address] [id number] [address] [place] [address], [place] [address] Jan, [facility] [address] [id number] [address] [place] [address], [place] [address] Jan, [facility] [address] [id number] [address] [place] [address], [place] [address] Dec, [facility] [address] [id number] [address] [address] Dec, [facility] [address] [facility] [id number] [address] [place] [address] Dec, [facility] [address] [facility] [id number] [address] [place] [address] Dec, IMMUNIZATIONS No Known Immunizations SOCIAL HISTORY [...]
--- OUTSIDE RECORDS SUMMARY | 2019-08-23 12:15 | XMS REPORT ---
Author Author Veronica Vanessa Doctor Organization [facility] Address Unknown Phone Unavailable Care Team Providers Care Syrup Blender Name Role Phone Migration, Doctor Unavailable Unavailable PROBLEMS Type Condition ICD9-CM Code HRR06-IB Code Onset Dates Condition S tatus SNOMED Code Problem Bilateral low back pain without sciatica M54.5 Active 460588627 Problem Anxiety F41.9 Active 03305079 Problem Chronic pain syndrome G89.4 Active 862937971 Problem Thrush B37.0 Active 41858537 Problem Type 2 diabetes mellitus with complication E11.8 Active 64449207 Problem COPD with acute exacerbation J44.1 A ctive 176767668 Problem History of long-term use of multiple prescription drugs Z92.29 Active 972790302 Problem Essential hypertension I10 Active 25818534 Problem Mixed hyperlipidemia E78.2 Active 242088764 Problem Long-term use of high-risk medication Z79.899 Active 279663312 Problem Chronic obstructive pulmonary disease, unspecified COPD ty pe J44.9 Active 79743981 ALLERGIES No Information ENCOUNTERS Encounter Location Date Diagnosis [facility] [place] [address] [address] Nov, [facility] [address] [address] October, Scabies B86 [facility] [address] [id number] [place] [address] October, Acute upper respiratory infe ction, unspecified J06.9 [facility] [address] [address] October, Dysuria R30.0 and Coughing R 05 [facility] [place] [address] [id number] [address] [place] [id number] Aug, [facility] [place] [address] [address] Jun, [facility] [place] [address] [id number] [address] [place] [id number] Jun, [facility] [place] [address] [id number] [address] [place] [id number] Jun, [facility] [place] [address] [id number] [address] [place] [id number] May, [facility] [place] [address] [id number] [address] [place] [id number] May, [facility] [place] [address] [id number] [address] [place] [id number] May, [facility] [place] [address] [facility] [id number] [address] [place] [address] Apr, Type 2 diabetes mellitus wit h complication E11.8 ; Chronic pain syndrome G89.4 ; Bilateral low back pain without sciatica M54.5 ; Essential hypertension I10 ; Anxiety F41.9 ; COPD with acute exacerbation J44.1 ; Pain of left hand M79.642 and Pain in right hand M79.641 [facility] [place] [address] [id number] [address] [place] [id number] Apr, [facility] [place] [address] [id number] [address] [place] [address] Mar, [facility] [place] [address] [id number] [address] [place] [id number] Mar, [facility] [place] [address] [id number] [address] [place] [id number] Mar, [facility] [place] [address] [id number] [address] [place] [id number] Feb, [facility] [place] [address] [id number] [address] [place] [id number] Feb, [facility] [place] [address] [facility] [id number] [address] [place] [id number] Jan, Type 2 diabetes mellitus wit h complication E11.8 ; Chronic pain syndrome G89.4 ; Bilateral low back pain without sciatica M54.5 ; Essential hypertension I10 ; Anxiety F41.9 ; Chronic obstructive pulmonary disease, unspecified COPD type J44.9 and Thrush B37.0 [facility] [place] [address] [id number] [address] [place] [id number] Jan, [facility] [place] [address] [id number] [address] [place] [id number] Dec, [facility] [place] [address] [id number] [address] [place] [id number] Dec, [facility] [place] [address] [id number] [address] [place] [id number] Nov, [facility] [place] [address] [id number] [address] [place] [id number] Nov, [facility] [place] [address] [id number] [address] [place] [id number] Nov, [facility] [place] [address] [id number] [address] [place] [id number] Nov, Chest pain, unspecified type R07.9 and COPD exacerbation J44.1 [facility] [place] [address] [id number] [address] [place] [id number] October, [facility] [place] [address] [id number] [address] [place] [id number] Sep, [facility] [place] [address] [id number] [address] [place] [id number] Sep, Type 2 diabetes mellitus wit h complication E11.8 ; Chronic pain syndrome G89.4 ; Bilateral low back pain without sciatica M54.5 ; Essential hypertension I10 ; Anxiety F41.9 and COPD exacerbation J44.1 [facility] [place] [address] [id number] [address] [place] [id number] Aug, [facility] [place] [address] [id number] [address] [place] [id number] Aug, [facility] [place] [address] [facility] [id number] [address] [place] [id number] Aug, Chronic pain syndrome G89.4 [facility] [place] [address] [facility] [id number] [address] [place] [id number] Aug, [facility] [place] [address] [facility] [id number] [address] [place] [id number] Aug, [facility] [place] [address] [facility] [id number] [address] [place] [id number] Jul, Chronic pain syndrome G89.4 and Anxiety F41.9 [facility] [place] [id number] [place] [address] Jul, [facility] [place] [address] [id number] [address] [place] [id number] Jun, Bilateral low back pain with out sciatica M54.5 ; Chronic pain syndrome G89.4 ; Anxiety F41.9 ; History of long-term use of multiple prescription drugs Z92.29 ; Type 2 diabetes mellitus with complication E11.8 ; Long-term use of high-risk medication Z79.899 ; Mixed hyperlipidemia E78.2 and Essential hypertension I10 [facility] [place] [address] [facility] [id number] [address] [place] [id number] Jun, [facility] [place] [address] [facility] [id number] [address] [place] [id number] Jun, [facility] [place] [address] [id number] [address] [place] [id number] May, [facility] [place] [address] [facility] [id number] [address] [place] [id number] Apr, [facility] [place] [address] [facility] [id number] [address] [place] [id number] Mar, [facility] [place] [address] [facility] [id number] [address] [place] [id number] Mar, Bilateral low back pain with out sciatica M54.5 ; History of long- term use of multiple prescription drugs Z92.29 ; Anxiety F41.9 ; Chronic pain syndrome G89.4 ; Type 2 diabetes mellitus with complication E11.8 ; Long-term use of high-risk medication Z79.899 and Mixed hyperlipidemia E78.2 [facility] [place] [address] [facility] [id number] [address] [place] [id number] Mar, [facility] [place] [address] [id number] [address] [place] [id number] Mar, Chronic pain syndrome G89.4 [facility] [place] [address] [id number] [address] [place] [id number] Mar, [facility] [place] [address] [id number] [address] [place] [id number] Feb, [facility] [place] [address] [id number] [address] [place] [id number] Feb, [facility] [place] [address] [facility] [id number] [address] [place] [id number] Feb, [facility] [place] [address] [id number] [address] [place] [id number] Feb, [facility] [place] [address] [id number] [address] [place] [id number] Jan, [facility] [place] [address] [id number] [address] [place] [id number] Jan, [facility] [place] [address] [id number] [address] [place] [id number] Dec, [facility] [place] [address] [id number] [address] [place] [id number] Dec, Lumbago 724.2 ; Diabetes thony litus without mention of complication, type II or unspecified type, not stated as uncontrolled 250.00 ; Essential hypertension, benign 401.1 ; Anxiety state, unspecified 300.00 ; Chronic pain 338.29 ; COPD with acute exacerbation 491.21 ; Tobacco abuse 305.1 ; Depression 311 and Hyperlipidemia 272.4 [facility] [place] [address] [id number] [address] [place] [id number] Dec, [facility] [place] [address] [id number] [address] [place] [id number] Nov, Lumbago 724.2 ; Diabetes thony litus without mention of complication, type II or unspecified type, not stated as uncontrolled 250.00 ; Essential hypertension, benign 401.1 ; Anxiety state, unspecified 300.00 ; Chronic pain 338.29 ; COPD with acute exacerbation 491.21 ; Tobacco abuse 305.1 and Depression 311 [facility] [place] [address] [id number] [address] [place] [id number] Nov, [facility] [place] [address] [id number] [address] [place] [id number] Nov, [facility] [place] [address] [id number] [address] [place] [id number] Nov, [facility] [place] [address] [id number] [address] [place] [id number] October, [facility] [place] [address] [id number] [address] [place] [phone] October, [facility] [place] [address] [id number] [address] [place] [id number] October, [facility] [place] [address] [id number] [address] [place] [id number] October, [facility] [place] [address] [id number] [address] [place] [id number] October, [facility] [place] [address] [id number] [address] [place] [id number] Sep, [facility] [place] [address] [id number] [address] [place] [id number] Sep, [facility] [place] [address] [id number] [address] [place] [id number] Sep, [facility] [address] [id number] [facility] [address] 23 Aug, 2014 [facility] [address] [id number] [address] [place] [address], [place] [address] 23 Aug, 2014 [facility] [address] [id number] [address] [place] [address], [place] [address] 20 Aug, 2014 [facility] [address] [id number] [address] [place] [address], [place] [address] 20 Aug, 2014 [facility] [address] [id number] [address] [place] [address], [place] [address] 19 Aug, 2014 [facility] [address] [id number] [address] [place] [address], [place] [address] 19 Aug, 2014 [facility] [address] [id number] [address] [place] [address], [place] [address] 16 Aug, 2014 [facility] [address] [id number] [address] [place] [address], [place] [address] 16 Aug, 2014 [facility] [address] [id number] [address] [place] [address], [place] [address] 16 Aug, 2014 [facility] [address] [id number] [address] [place] [address], [place] [address] 16 Aug, 2014 [facility] [address] [id number] [address] [place] [address], [place] [address] 13 Aug, 2014 [facility] [address] [id number] [address] [place] [address], [place] [address] 13 Aug, 2014 [facility] [address] [id number] [address] [place] [address], [place] [address] 24 Jul, 2014 [facility] [address] [id number] [address] [place] [address], [place] [address] 23 Jul, 2014 [facility] [address] [id number] [address] [place] [address], [place] [address] 23 Jul, 2014 [facility] [address] [id number] [address] [place] [address], [place] [address] Jul, [facility] [address] [id number] [address] [place] [address], [place] [address] Jul, [facility] [address] [id number] [address] [place] [address], [place] [address] Jul, [facility] [address] [id number] [address] [place] [address], [place] [address] Jul, [facility] [address] [id number] [address] [place] [address], [place] [address] Jun, [facility] [address] [id number] [address] [place] [address], [place] [address] Jun, [facility] [address] [id number] [address] [place] [address], [place] [address] Jun, [facility] [address] [id number] [address] [place] [address], [place] [address] Jun, [facility] [address] [id number] [address] [place] [address], [place] [address] Jun, [facility] [address] [id number] [address] [place] [address], [place] [address] Jun, [facility] [address] [id number] [address] [place] [address], [place] [address] Jun, [facility] [address] [id number] [address] [place] [address], [place] [address] Jun, [facility] [address] [id number] [address] [place] [address], [place] [address] Jun, [facility] [address] [id number] [address] [place] [address], [place] [address] May, [facility] [address] [id number] [address] [place] [address], [place] [address] May, [facility] [address] [id number] [address] [place] [address], [place] [address] May, [facility] [address] [id number] [address] [place] [address], [place] [address] 30 May, 2014 [facility] [address] [id number] [address] [place] [address], [place] [address] 17 May, 2014 [facility] [address] [id number] [address] [place] [address], [place] [address] 15 May, 2014 [facility] [address] [id number] [address] [place] [address], [place] [address] 15 May, 2014 [facility] [address] [id number] [address] [place] [address], [place] [address] 12 May, 2014 [facility] [address] [id number] [address] [place] [address], [place] [address] May, [facility] [address] [id number] [address] [place] [address], [place] [address] May, [facility] [address] [id number] [address] [place] [address], [place] [address] May, [facility] [address] [id number] [address] [place] [address], [place] [address] Apr, [facility] [address] [id number] [address] [place] [address], [place] [address] Apr, [facility] [address] [id number] [address] [place] [address], [place] [address] Apr, [facility] [address] [id number] [address] [place] [address], [place] [address] Apr, [facility] [address] [id number] [address] [place] [address], [place] [address] Mar, [facility] [address] [id number] [address] [place] [address], [place] [address] 29 Mar, 2014 [facility] [address] [id number] [address] [place] [address] [address] 2014 [facility] [address] [id number] [address] [place] [address] [address] 2014 [facility] [address] [id number] [address] [place] [address], [place] [address] 08 Mar, 2014 [facility] [address] [id number] [address] [place] [address], [place] [address] 08 Mar, 2014 [facility] [address] [id number] [address] [place] [address], [place] [address] 29 Feb, 2014 [facility] [address] [id number] [address] [place] [address], [place] [address] 29 Feb, 2014 [facility] [address] [id number] [address] [place] [address], [place] [address] 17 Feb, 2014 [facility] [address] [id number] [address] [place] [address], [place] [address] 16 Feb, 2014 [facility] [address] [id number] [address] [place] [address], [place] [address] 16 Feb, 2014 [facility] [address] [id number] [address] [place] [address], [place] [address] Feb, [facility] [address] [id number] [address] [place] [address], [place] [address] Feb, [facility] [address] [id number] [address] [place] [address], [place] [address] Jan, [facility] [address] [id number] [address] [place] [address], [place] [address] Jan, [facility] [address] [id number] [address] [place] [address], [place] [address] Jan, [facility] [address] [id number] [address] [place] [address], [place] [address] Jan, [facility] [address] [id number] [address] [place] [address], [place] [address] Dec, [facility] [address] [id number] [address] [place] [address], [place] [address] Dec, [facility] [address] [id number] [address] [place] [address] Dec, [facility] [place] [address] [facility] [id number] [address], [place] [address] Dec, IMMUNIZATIONS No Known Immunizations SOCIAL HISTORY Never Assessed REASON FOR VISIT EMR-[facility] PLAN OF CARE VITAL SIGNS MEDICATIONS Unknown [...]
--- OUTSIDE RECORDS SUMMARY | 2019-08-23 12:16 | XMS REPORT ---
Author Author Veronica REYNOSO [facility] Address [address] [place] [address] Care Team Providers Care Garage Worker Name Role Phone ANGELES ANGE Unavailable PROBLEMS Type Condition ICD9-CM Code SOE55-RM Code Onset Dates Condition S tatus SNOMED Code Problem Bilateral low back pain without sciatica M54.5 Active 349517908 Problem Chronic pain syndrome G89.4 Active 250244129 Problem Anxiety F41.9 Active 92679364 Problem History of long-term use of multiple prescription drugs Z92.29 Active 703091654 Problem Type 2 diabetes mellitus with complication E11.8 Active 57932250 Problem COPD with acute exacerbation J44.1 A ctive 911680783 Problem Thrush B37.0 Active 20814156 Problem Mixed hyperlipidemia E78.2 Active 927478157 Problem Essential hypertension I10 Active 01374493 Problem Chronic obstructive pulmonary disease, unspecified COPD ty pe J44.9 Active 33167813 Problem Long-term use of high-risk medication Z79.899 Active 832924142 ALLERGIES Unknown Allergies SOCIAL HISTORY No smoking Hx information available PLAN OF CARE VITAL SIGNS MEDICATIONS Unknown Medications RESULTS No Results PROCEDURES No Known procedures IMMUNIZATIONS No Known Immunizations
--- OUTSIDE RECORDS SUMMARY | 2019-08-23 12:16 | XMS REPORT ---
Author Veronica Wallis Organization [employer] Address Unknown Phone Unavailable Care Team Providers Care Rim Roller Setter Name Role Phone RICOGhassan ANGE CP Unavailable Allergies No Known Allergies Problems Problem Type Condition Code Onset Dates Condition Statu s Problem Candidiasis of mouth 112.0 Active Problem Other injury of other sites of trunk 959.19 Active Problem Pain in joint, lower leg 719.46 Act modesta Problem History of long-term use of multiple prescription drug s Z92.29 Active Problem Anxiety F41.9 Active Problem Bilateral low back pain without sciatica M54.5 Active Problem Hyperlipidemia 272.4 Active Problem Dizziness and giddiness 780.4 Acti ve Problem Chronic pain syndrome G89.4 Active Problem Type 2 diabetes mellitus with complication E11.8 Active Problem Essential hypertension, benign 401.1 Active Problem Diabetes mellitus without me ntion of complication, type II or unspecified type, not stated as uncontrolled 250.00 Active Problem 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
--- OUTSIDE RECORDS SUMMARY | 2019-08-23 12:16 | XMS REPORT ---
Author Author RICOGhassan Veronica ANGE [facility] Address [address] [place] [address] Care Team Providers Care Supervisor Hot Dip Plating Name Role Phone ANGE REYNOSO Unavailable PROBLEMS Type Condition ICD9-CM Code [id number] Code Onset Dates Condition S tatus SNOMED Code Problem Anxiety F41.9 Active 96583269 Problem Bilateral low back pain without sciatica M54.5 Active 882197487 Problem History of long-term use of multiple prescription drugs Z92.29 Active 877185360 Problem Type 2 diabetes mellitus with complication E11.8 Active 19523069 Problem Chronic pain syndrome G89.4 Active 620660463 Problem COPD with acute exacerbation J44.1 A ctive 223004140 Problem Chronic obstructive pulmonary disease, unspecified COPD ty pe J44.9 Active 52450772 Problem Mixed hyperlipidemia E78.2 Active 872142840 Problem Essential hypertension I10 Active 80143019 Problem Thrush B37.0 Active 08180095 Problem Long-term use of high-risk medication Z79.899 Active 113024379 ALLERGIES Unknown Allergies SOCIAL HISTORY No smoking Hx information available PLAN OF CARE VITAL SIGNS MEDICATIONS Medication Instructions Dosage Frequency Start Date End Date Duration S tatus Diclofenac Sodium 75 TAKE ONE TABLET BY MOUTH TWICE A DAY 30 Active Reglan 10 1 tablet 8h 30 days Active BuPROPion HCl 150 MG take 1 tablet (150 mg) by oral ro katherine 2 times per day Mar, Active Lyrica 75 Orally Twice a day 1 capsule 12h A ctive Ranitidine HCl 150 TAKE ONE TABLET BY MOUTH TWICE A DAY 30 Active RESULTS No Results PROCEDURES No Known procedures IMMUNIZATIONS No Known Immunizations
--- OUTSIDE RECORDS SUMMARY | 2019-08-23 12:16 | XMS REPORT ---
Author Author Veronica Vanessa Doctor Organization [facility] Address Unknown Phone Unavailable Care Team Providers Care Forensic Chemist Name Role Phone Migration, Doctor Unavailable Unavailable PROBLEMS Type Condition ICD9-CM Code [id number] Code Onset Dates Condition S tatus SNOMED Code Problem Bilateral low back pain without sciatica M54.5 Active 164420737 Problem Anxiety F41.9 Active 55218373 Problem Chronic pain syndrome G89.4 Active 819683708 Problem Thrush B37.0 Active 60335472 Problem Type 2 diabetes mellitus with complication E11.8 Active 57815387 Problem COPD with acute exacerbation J44.1 A ctive 935207984 Problem History of long-term use of multiple prescription drugs Z92.29 Active 713420792 Problem Essential hypertension I10 Active 58621833 Problem Mixed hyperlipidemia E78.2 Active 827528804 Problem Long-term use of high-risk medication Z79.899 Active 431212265 Problem Chronic obstructive pulmonary disease, unspecified COPD ty pe J44.9 Active 03138408 ALLERGIES No Information ENCOUNTERS Encounter Location Date Diagnosis [facility] [address] [address] Nov, [facility] [address] [address] October, Scabies B86 [facility] [id number] [place] [address] October, Acute upper respiratory infe ction, unspecified J06.9 [facility] [address] [address] October, Dysuria R30.0 and Coughing R 05 [facility] [address] [id number] [place] [address] Aug, [facility] [address] [address] Jun, [facility] [address] [id number] [address] [place] [address] Jun, [facility] [address] [id number] [address] [place] [address] Jun, [facility] [address] [id number] [address] [place] [address] May, [facility] [address] [id number] [address] [place] [address] May, [facility] [address] [id number] [address] [place] [address] May, [facility] [address] [facility] [id number] [address] [place] [address] Apr, Type 2 diabetes mellitus wit h complication E11.8 ; Chronic pain syndrome G89.4 ; Bilateral low back pain without sciatica M54.5 ; Essential hypertension I10 ; Anxiety F41.9 ; COPD with acute exacerbation J44.1 ; Pain of left hand M79.642 and Pain in right hand M79.641 [facility] [address] [id number] [address] [place] [address] Apr, [facility] [address] [id number] [address] [place] [address] Mar, [facility] [address] [id number] [address] [place] [address] Mar, [facility] [address] [id number] [address] [place] [address] Mar, [facility] [address] [id number] [address] [place] [address] Feb, [facility] [address] [id number] [address] [place] [address] Feb, [facility] [address] [facility] [id number] [address] [place] [address] Jan, Type 2 diabetes mellitus wit h complication E11.8 ; Chronic pain syndrome G89.4 ; Bilateral low back pain without sciatica M54.5 ; Essential hypertension I10 ; Anxiety F41.9 ; Chronic obstructive pulmonary disease, unspecified COPD type J44.9 and Thrush B37.0 [facility] [address] [id number] [address] [place] [address] Jan, [facility] [address] [id number] [address] [place] [address] Dec, [facility] [address] [id number] [address] [place] [address] Dec, [facility] [address] [id number] [address] [place] [address] Nov, [facility] [address] [id number] [address] [place] [address] Nov, [facility] [address] [id number] [address] [place] [address] Nov, [facility] [address] [id number] [address] [place] [address] Nov, Chest pain, unspecified type R07.9 and COPD exacerbation J44.1 [facility] [address] [id number] [address] [place] [address] October, [facility] [address] [id number] [address] [place] [address] Sep, [facility] [address] [id number] [address] [place] [address] Sep, Type 2 diabetes mellitus wit h complication E11.8 ; Chronic pain syndrome G89.4 ; Bilateral low back pain without sciatica M54.5 ; Essential hypertension I10 ; Anxiety F41.9 and COPD exacerbation J44.1 [facility] [address] [id number] [address] [place] [address] Aug, [facility] [address] [id number] [address] [place] [address] Aug, [facility] [address] [facility] [id number] [address] [place] [address] Aug, Chronic pain syndrome G89.4 [facility] [address] [facility] [id number] [address] [place] [address] Aug, [facility] [address] [facility] [id number] [address] [place] [address] Aug, [facility] [address] [facility] [id number] [address] [place] [address] Jul, Chronic pain syndrome G89.4 and Anxiety F41.9 [facility] [id number] [place] [address] Jul, [facility] [address] [id number] [address] [place] [address] Jun, Bilateral low back pain with out sciatica M54.5 ; Chronic pain syndrome G89.4 ; Anxiety F41.9 ; History of long-term use of multiple prescription drugs Z92.29 ; Type 2 diabetes mellitus with complication E11.8 ; Long-term use of high-risk medication Z79.899 ; Mixed hyperlipidemia E78.2 and Essential hypertension I10 [facility] [address] [facility] [id number] [address] [place] [address] Jun, [facility] [address] [facility] [id number] [address] [place] [address] Jun, [facility] [address] [id number] [address] [place] [address] May, [facility] [address] [facility] [id number] [address] [place] [address] Apr, [facility] [address] [facility] [id number] [address] [place] [address] Mar, [facility] [address] [facility] [id number] [address] [place] [address] Mar, Bilateral low back pain with out sciatica M54.5 ; History of long- term use of multiple prescription drugs Z92.29 ; Anxiety F41.9 ; Chronic pain syndrome G89.4 ; Type 2 diabetes mellitus with complication E11.8 ; Long-term use of high-risk medication Z79.899 and Mixed hyperlipidemia E78.2 [facility] [address] [facility] [id number] [address] [place] [address] Mar, [facility] [address] [id number] [address] [place] [address] Mar, Chronic pain syndrome G89.4 [facility] [address] [id number] [address] [place] [address] Mar, [facility] [address] [id number] [address] [place] [address] Feb, [facility] [address] [id number] [address] [place] [address] Feb, [facility] [address] [facility] [id number] [address] [place] [address] Feb, [facility] [address] [id number] [address] [place] [address] Feb, [facility] [address] [id number] [address] [place] [address] Jan, [facility] [address] [id number] [address] [place] [address] Jan, [facility] [address] [id number] [address] [place] [address] Dec, [facility] [address] [id number] [address] [place] [address] Dec, Lumbago 724.2 ; Diabetes thony litus without mention of complication, type II or unspecified type, not stated as uncontrolled 250.00 ; Essential hypertension, benign 401.1 ; Anxiety state, unspecified 300.00 ; Chronic pain 338.29 ; COPD with acute exacerbation 491.21 ; Tobacco abuse 305.1 ; Depression 311 and Hyperlipidemia 272.4 [facility] [address] [id number] [address] [place] [address] Dec, [facility] [address] [id number] [address] [place] [address] Nov, Lumbago 724.2 ; Diabetes thony litus without mention of complication, type II or unspecified type, not stated as uncontrolled 250.00 ; Essential hypertension, benign 401.1 ; Anxiety state, unspecified 300.00 ; Chronic pain 338.29 ; COPD with acute exacerbation 491.21 ; Tobacco abuse 305.1 and Depression 311 [facility] [address] [id number] [address] [place] [address] Nov, [facility] [address] [id number] [address] [place] [address] Nov, [facility] [address] [id number] [address] [place] [address] Nov, [facility] [address] [id number] [address] [place] [address] October, [facility] [address] [id number] [address] [place] [address] October, [facility] [address] [id number] [address] [place] [address] October, [facility] [address] [id number] [address] [place] [address] October, [facility] [address] [id number] [address] [place] [address] October, [facility] [address] [id number] [address] [place] [address] Sep, [facility] [address] [id number] [address] [place] [address] Sep, [facility] [address] [id number] [address] [place] [address] Sep, [facility] [address] [id number] [facility] [place] [address] 23 Aug, 2014 [facility] [address] [id number] [address] [place] [address], [place] [address] 23 Aug, 2014 [facility] [address] [id number] [address] [place] [address], [place] [address] 20 Aug, 2014 [facility] [address] [id number] [address] [place] [address], [place] [address] 20 Aug, 2014 [facility] [address] [id number] [address] [place] [address], [place] [address] 19 Aug, 2014 [facility] [address] [id number] [address] [place] [address], [place] [address] 19 Aug, 2014 [facility] [address] [id number] [address] [place] [address], [place] [address] 16 Aug, 2014 [facility] [address] [id number] [address] [place] [address], [place] [address] 16 Aug, 2014 [facility] [address] [id number] [address] [place] [address], [place] [address] 16 Aug, 2014 [facility] [address] [id number] [address] [place] [address], [place] [address] 16 Aug, 2014 [facility] [address] [id number] [address] [place] [address], [place] [address] 13 Aug, 2014 [facility] [address] [id number] [address] [place] [address], [place] [address] 13 Aug, 2014 [facility] [address] [id number] [address] [place] [address], [place] [address] 24 Jul, 2014 [facility] [address] [id number] [address] [place] [address], [place] [address] 23 Jul, 2014 [facility] [address] [id number] [address] [place] [address], [place] [address] 23 Jul, 2014 [facility] [address] [id number] [address] [place] [address], [place] [address] Jul, [facility] [address] [id number] [address] [place] [address], [place] [address] Jul, [facility] [address] [id number] [address] [place] [address], [place] [address] Jul, [facility] [address] [id number] [address] [place] [address], [place] [address] Jul, [facility] [address] [id number] [address] [place] [address], [place] [address] Jun, [facility] [address] [id number] [address] [place] [address], [place] [address] Jun, [facility] [address] [id number] [address] [place] [address], [place] [address] Jun, [facility] [address] [id number] [address] [place] [address], [place] [address] Jun, [facility] [address] [id number] [address] [place] [address], [place] [address] Jun, [facility] [address] [id number] [address] [place] [address], [place] [address] Jun, [facility] [address] [id number] [address] [place] [address], [place] [address] Jun, [facility] [address] [id number] [address] [place] [address], [place] [address] Jun, [facility] [address] [id number] [address] [place] [address], [place] [address] Jun, [facility] [address] [id number] [address] [place] [address], [place] [address] May, [facility] [address] [id number] [address] [place] [address], [place] [address] May, [facility] [address] [id number] [address] [place] [address], [place] [address] May, [facility] [address] [id number] [address] [place] [address], [place] [address] 30 May, 2014 [facility] [address] [id number] [address] [place] [address], [place] [address] 17 May, 2014 [facility] [address] [id number] [address] [place] [address], [place] [address] 15 May, 2014 [facility] [address] [id number] [address] [place] [address], [place] [address] 15 May, 2014 [facility] [address] [id number] [address] [place] [address], [place] [address] 12 May, 2014 [facility] [address] [id number] [address] [place] [address], [place] [address] May, [facility] [address] [id number] [address] [place] [address], [place] [address] May, [facility] [address] [id number] [address] [place] [address], [place] [address] May, [facility] [address] [id number] [address] [place] [address], [place] [address] Apr, [facility] [address] [id number] [address] [place] [address], [place] [address] Apr, [facility] [address] [id number] [address] [place] [address], [place] [address] Apr, [facility] [address] [id number] [address] [place] [address], [place] [address] Apr, [facility] [address] [id number] [address] [place] [address], [place] [address] Mar, [facility] [address] [id number] [address] [place] [address], [place] [address] 29 Mar, 2014 [facility] [address] [id number] [address] [place] [address], [place] [address] 2014 [facility] [address] [id number] [address] [place] [address] [address] 2014 [facility] [address] [id number] [address] [place] [address], [place] [address] 08 Mar, 2014 [facility] [address] [id number] [address] [place] [address], [place] [address] 08 Mar, 2014 [facility] [address] [id number] [address] [place] [address], [place] [address] 29 Feb, 2014 [facility] [address] [id number] [address] [place] [address], [place] [address] 29 Feb, 2014 [facility] [address] [id number] [address] [place] [address], [place] [address] 17 Feb, 2014 [facility] [address] [id number] [address] [place] [address], [place] [address] 16 Feb, 2014 [facility] [address] [id number] [address] [place] [address], [place] [address] 16 Feb, 2014 [facility] [address] [id number] [address] [place] [address], [place] [address] Feb, [facility] [address] [id number] [address] [place] [address], [place] [address] Feb, [facility] [address] [id number] [address] [place] [address], [place] [address] Jan, [facility] [address] [id number] [address] [place] [address], [place] [address] Jan, [facility] [address] [id number] [address] [place] [address], [place] [address] Jan, [facility] [address] [id number] [address] [place] [address], [place] [address] Jan, [facility] [address] [id number] [address] [place] [address], [place] [address] Dec, [facility] [address] [id number] [address] [place] [address], [place] [address] Dec, [facility] [address] [id number] [address] [place] [address] Dec, [facility] [address] [facility] [id number] [address] [address] Dec, IMMUNIZATIONS No Known Immunizations SOCIAL HISTORY Never Assessed REASON FOR [place]IT [place] [place] [...]
--- OUTSIDE RECORDS SUMMARY | 2019-08-23 12:16 | XMS REPORT ---
Author Author Veronica Vanessa Doctor Organization [facility] Address Unknown Phone Unavailable Care Team Providers Care Consulting Services Associate Name Role Phone Migration, Doctor Unavailable Unavailable PROBLEMS Type Condition ICD9-CM Code JDO58-FS Code Onset Dates Condition S tatus SNOMED Code Problem Bilateral low back pain without sciatica M54.5 Active 710265862 Problem Anxiety F41.9 Active 88701628 Problem Chronic pain syndrome G89.4 Active 054380961 Problem Thrush B37.0 Active 45281743 Problem Type 2 diabetes mellitus with complication E11.8 Active 25646659 Problem COPD with acute exacerbation J44.1 A ctive 859163841 Problem History of long-term use of multiple prescription drugs Z92.29 Active 914981254 Problem Essential hypertension I10 Active 44839083 Problem Mixed hyperlipidemia E78.2 Active 596322027 Problem Long-term use of high-risk medication Z79.899 Active 533582954 Problem Chronic obstructive pulmonary disease, unspecified COPD ty pe J44.9 Active 53483803 ALLERGIES No Information ENCOUNTERS Encounter Location Date Diagnosis [facility] [address] [id number] Nov, [facility] [address] [address] October, Scabies B86 [facility] [address] [id number] [address] [place] [address] October, Acute upper respiratory infe ction, unspecified J06.9 [facility] [address] [id number] October, Dysuria R30.0 and Coughing R 05 [facility] [address] [id number] [address] [place] [address] Aug, [facility] [address] [address] Jun, [facility] [address] [id number] [address] [place] [address] Jun, [facility] [address] [id number] [address] [place] [address] Jun, [facility] [address] [id number] [address] [place] [address] May, [facility] [address] [id number] [address] [place] [address] May, [facility] [address] [id number] [address] [place] [address] May, [facility] [address] [facility] [id number] [address] [place] [address] Apr, Type 2 diabetes mellitus wit h complication E11.8 ; Chronic pain syndrome G89.4 ; Bilateral low back pain without sciatica M54.5 ; Essential hypertension I10 ; Anxiety F41.9 ; COPD with acute exacerbation J44.1 ; Pain of left hand M79.642 and Pain in right hand M79.641 [facility] [address] [id number] [address] [place] [address] Apr, [facility] [address] [id number] [address] [place] [address] Mar, [facility] [address] [id number] [address] [place] [address] Mar, [facility] [address] [id number] [address] [place] [address] Mar, [facility] [address] [id number] [address] [place] [id number] Feb, [facility] [address] [id number] [address] [place] [id number] Feb, [facility] [address] [facility] [id number] [address] [place] [address] Jan, Type 2 diabetes mellitus wit h complication E11.8 ; Chronic pain syndrome G89.4 ; Bilateral low back pain without sciatica M54.5 ; Essential hypertension I10 ; Anxiety F41.9 ; Chronic obstructive pulmonary disease, unspecified COPD type J44.9 and Thrush B37.0 [facility] [address] [id number] [address] [place] [id number] Jan, [facility] [address] [id number] [address] [place] [phone] Dec, [facility] [address] [id number] [address] [place] [address] Dec, [facility] [address] [id number] [address] [place] [id number] Nov, [facility] [address] [id number] [address] [place] [id number] Nov, [facility] [address] [id number] [address] [place] [address] Nov, [facility] [address] [id number] [address] [place] [id number] Nov, Chest pain, unspecified type R07.9 and COPD exacerbation J44.1 [facility] [address] [id number] [address] [place] [phone] October, [facility] [address] [id number] [address] [place] [address] Sep, [facility] [address] [id number] [address] [place] [address] Sep, Type 2 diabetes mellitus wit h complication E11.8 ; Chronic pain syndrome G89.4 ; Bilateral low back pain without sciatica M54.5 ; Essential hypertension I10 ; Anxiety F41.9 and COPD exacerbation J44.1 [facility] [address] [id number] [address] [place] [address] Aug, [facility] [address] [id number] [address] [place] [address] Aug, [facility] [address] [facility] [id number] [address] [place] [address] Aug, Chronic pain syndrome G89.4 [facility] [address] [facility] [id number] [address] [place] [address] Aug, [facility] [address] [facility] [id number] [address] [place] [address] Aug, [facility] [address] [facility] [id number] [address] [place] [address] Jul, Chronic pain syndrome G89.4 and Anxiety F41.9 [facility] [id number] [place] [address] Jul, [facility] [address] [id number] [address] [place] [address] Jun, Bilateral low back pain with out sciatica M54.5 ; Chronic pain syndrome G89.4 ; Anxiety F41.9 ; History of long-term use of multiple prescription drugs Z92.29 ; Type 2 diabetes mellitus with complication E11.8 ; Long-term use of high-risk medication Z79.899 ; Mixed hyperlipidemia E78.2 and Essential hypertension I10 [facility] [address] [facility] [id number] [address] [place] [phone] Jun, [facility] [address] [facility] [id number] [address] [place] [phone] Jun, [facility] [address] [id number] [address] [place] [phone] May, [facility] [address] [facility] [id number] [address] [place] [address] Apr, [facility] [address] [facility] [id number] [address] [place] [address] Mar, [facility] [address] [facility] [id number] [address] [place] [address] Mar, Bilateral low back pain with out sciatica M54.5 ; History of long- term use of multiple prescription drugs Z92.29 ; Anxiety F41.9 ; Chronic pain syndrome G89.4 ; Type 2 diabetes mellitus with complication E11.8 ; Long-term use of high-risk medication Z79.899 and Mixed hyperlipidemia E78.2 [facility] [address] [facility] [id number] [address] [place] [address] Mar, [facility] [address] [id number] [address] [place] [address] Mar, Chronic pain syndrome G89.4 [facility] [address] [id number] [address] [place] [address] Mar, [facility] [address] [id number] [address] [place] [phone] Feb, [facility] [address] [id number] [address] [place] [address] Feb, [facility] [address] [facility] [id number] [address] [place] [address] Feb, [facility] [address] [id number] [address] [place] [address] Feb, [facility] [address] [id number] [address] [place] [address] Jan, [facility] [address] [id number] [address] [place] [address] Jan, [facility] [address] [id number] [address] [place] [id number] Dec, [facility] [address] [id number] [address] [place] [address] Dec, Lumbago 724.2 ; Diabetes thony litus without mention of complication, type II or unspecified type, not stated as uncontrolled 250.00 ; Essential hypertension, benign 401.1 ; Anxiety state, unspecified 300.00 ; Chronic pain 338.29 ; COPD with acute exacerbation 491.21 ; Tobacco abuse 305.1 ; Depression 311 and Hyperlipidemia 272.4 [facility] [address] [id number] [address] [place] [address] Dec, [facility] [address] [id number] [address] [place] [phone] Nov, Lumbago 724.2 ; Diabetes thony litus without mention of complication, type II or unspecified type, not stated as uncontrolled 250.00 ; Essential hypertension, benign 401.1 ; Anxiety state, unspecified 300.00 ; Chronic pain 338.29 ; COPD with acute exacerbation 491.21 ; Tobacco abuse 305.1 and Depression 311 [facility] [address] [id number] [address] [place] [address] Nov, [facility] [address] [id number] [address] [place] [address] Nov, [facility] [address] [id number] [address] [place] [address] Nov, [facility] [address] [id number] [address] [place] [address] October, [facility] [address] [id number] [address] [place] [address] October, [facility] [address] [id number] [address] [place] [address] October, [facility] [address] [id number] [address] [place] [phone] October, [facility] [address] [id number] [address] [place] [address] October, [facility] [address] [id number] [address] [place] [address] Sep, [facility] [address] [id number] [address] [place] [address] Sep, [facility] [address] [id number] [address] [place] [id number] Sep, [facility] [address] [id number] [facility] [address] 23 Aug, 2014 [facility] [address] [id number] [address] [place] [address], [place] [address] 23 Aug, 2014 [facility] [address] [id number] [address] [place] [address], [place] [address] 20 Aug, 2014 [facility] [address] [id number] [address] [place] [address], [place] [address] 20 Aug, 2014 [facility] [address] [id number] [address] [place] [address], [place] [address] 19 Aug, 2014 [facility] [address] [id number] [address] [place] [address], [place] [address] 19 Aug, 2014 [facility] [address] [id number] [address] [place] [address], [place] [address] 16 Aug, 2014 [facility] [address] [id number] [address] [place] [address], [place] [address] 16 Aug, 2014 [facility] [address] [id number] [address] [place] [address], [place] [address] 16 Aug, 2014 [facility] [address] [id number] [address] [place] [address], [place] [address] 16 Aug, 2014 [facility] [address] [id number] [address] [place] [address], [place] [address] 13 Aug, 2014 [facility] [address] [id number] [address] [place] [address], [place] [address] 13 Aug, 2014 [facility] [address] [id number] [address] [place] [address], [place] [address] 24 Jul, 2014 [facility] [address] [id number] [address] [place] [address], [place] [address] 23 Jul, 2014 [facility] [address] [id number] [address] [place] [address], [place] [address] 23 Jul, 2014 [facility] [address] [id number] [address] [place] [address], [place] [address] Jul, [facility] [address] [id number] [address] [place] [address], [place] [address] Jul, [facility] [address] [id number] [address] [place] [address], [place] [address] Jul, [facility] [address] [id number] [address] [place] [address], [place] [address] Jul, [facility] [address] [id number] [address] [place] [address], [place] [address] Jun, [facility] [address] [id number] [address] [place] [address], [place] [address] Jun, [facility] [address] [id number] [address] [place] [address], [place] [address] Jun, [facility] [address] [id number] [address] [place] [address], [place] [address] Jun, [facility] [address] [id number] [address] [place] [address], [place] [address] Jun, [facility] [address] [id number] [address] [place] [address], [place] [address] Jun, [facility] [address] [id number] [address] [place] [address], [place] [address] Jun, [facility] [address] [id number] [address] [place] [address], [place] [address] Jun, [facility] [address] [id number] [address] [place] [address], [place] [address] Jun, [facility] [address] [id number] [address] [place] [address], [place] [address] May, [facility] [address] [id number] [address] [place] [address], [place] [address] May, [facility] [address] [id number] [address] [place] [address], [place] [address] May, [facility] [address] [id number] [address] [place] [address], [place] [address] 30 May, 2014 [facility] [address] [id number] [address] [place] [address], [place] [address] 17 May, 2014 [facility] [address] [id number] [address] [place] [address], [place] [address] 15 May, 2014 [facility] [address] [id number] [address] [place] [address], [place] [address] 15 May, 2014 [facility] [address] [id number] [address] [place] [address], [place] [address] 12 May, 2014 [facility] [address] [id number] [address] [place] [address], [place] [address] May, [facility] [address] [id number] [address] [place] [address], [place] [address] May, [facility] [address] [id number] [address] [place] [address], [place] [address] May, [facility] [address] [id number] [address] [place] [address], [place] [address] Apr, [facility] [address] [id number] [address] [place] [address], [place] [address] Apr, [facility] [address] [id number] [address] [place] [address], [place] [address] Apr, [facility] [address] [id number] [address] [place] [address], [place] [address] Apr, [facility] [address] [id number] [address] [place] [address], [place] [address] Mar, [facility] [address] [id number] [address] [place] [address], [place] [address] 29 Mar, 2014 [facility] [address] [id number] [address] [place] [address], [place] [address] 2014 [facility] [address] [id number] [address] [place] [address], [place] [address] 2014 [facility] [address] [id number] [address] [place] [address], [place] [address] 08 Mar, 2014 [facility] [address] [id number] [address] [place] [address], [place] [address] 08 Mar, 2014 [facility] [address] [id number] [address] [place] [address], [place] [address] 29 Feb, 2014 [facility] [address] [id number] [address] [place] [address], [place] [address] 29 Feb, 2014 [facility] [address] [id number] [address] [place] [address], [place] [address] 17 Feb, 2014 [facility] [address] [id number] [address] [place] [address], [place] [address] 16 Feb, 2014 [facility] [address] [id number] [address] [place] [address], [place] [address] 16 Feb, 2014 [facility] [address] [id number] [address] [place] [address], [place] [address] Feb, [facility] [address] [id number] [address] [place] [address], [place] [address] Feb, [facility] [address] [id number] [address] [place] [address], [place] [address] Jan, [facility] [address] [id number] [address] [place] [address], [place] [address] Jan, [facility] [address] [id number] [address] [place] [address], [place] [address] Jan, [facility] [address] [id number] [address] [place] [address], [place] [address] Jan, [facility] [address] [id number] [address] [place] [address], [place] [address] Dec, [facility] [address] [id number] [address] [place] [address], [place] [address] Dec, [facility] [address] [id number] [address] [place] [address] Dec, [facility] [address] [facility] [id number] [address] [address] Dec, IMMUNIZATIONS No Known Immunizations SOCIAL HISTORY Never Assessed REASON FOR VISIT EMR-[facility] PLAN OF CARE VITAL [...]
--- OUTSIDE RECORDS SUMMARY | 2019-08-23 12:16 | XMS REPORT ---
Author Author Veronica ARANDA Organization [facility] Address [address] [place] [address] Care Team Providers Care Legal Operations Manager Name Role Phone PARIS ARANDA Unavailable PROBLEMS Type Condition ICD9-CM Code QCP10-UG Code Onset Dates Condition S tatus SNOMED Code Problem Bilateral low back pain without sciatica M54.5 Active 312152298 Problem Chronic pain syndrome G89.4 Active 366371100 Problem Anxiety F41.9 Active 84235177 Problem History of long-term use of multiple prescription drugs Z92.29 Active 794591831 Problem Type 2 diabetes mellitus with complication E11.8 Active 40892632 Problem COPD with acute exacerbation J44.1 A ctive 201556049 Problem Thrush B37.0 Active 84166235 Problem Mixed hyperlipidemia E78.2 Active 664041473 Problem Essential hypertension I10 Active 56774570 Problem Chronic obstructive pulmonary disease, unspecified COPD ty pe J44.9 Active 86055484 Problem Long-term use of high-risk medication Z79.899 Active 078450572 ALLERGIES No Known Allergies SOCIAL HISTORY Never Assessed PLAN OF CARE VITAL SIGNS Height 68 in 2016-10-31 Weight 233.6 lbs 2016-10-31 Temperature 98.6 degrees Fahrenheit 2016-10-31 Heart Rate 88 bpm 2016-10-31 Respiratory Rate 20 2016-10-31 BMI 35.51 kg/m2 2016-10-31 Blood pressure systolic 136 mmHg 2016-10-31 Blood pressure diastolic 94 mmHg 2016-10-31 MEDICATIONS Medication Instructions Dosage Frequency Start Date End Date Duration S tatus Zantac 150 TAKE ONE TABLET BY MOUTH TWICE A DAY 30 Active Lyrica 75 Orally Twice a day 1 capsule 12h A ctive cyclobenzaprine 10 mg 1 tablet 1 time pe r day for 10 days PRN at hs [...] 1 tablet (150 mg) by oral ro togiak 2 times per day Mar, Active Xanax 0.5 MG Orally Once a day as needed 1/2 tablet Active Zocor 40 TAKE ONE TABLET BY MOUTH DAILY 30 Active ProAir HFA 108 (90 Base) MCG/ACT Inhalation every 4 hrs 2 puffs as needed 4h Sep, Active Incruse Ellipta 62.5 MCG/INH Inhalation Once a day 1 puff 24h 11 2015 Active Colace 100 mg 1 capsule by Oral route 2 times per day PRN Jul, Active Metoclopramide HCl 10 TAKE ONE TABLET [...] as needed 4h Nov, 30 days Active PredniSONE 20 mg Orally [...] BY MOUTH FOUR TIMES A DAY UNTIL AL L ARE TAKEN 30 Active Omeprazole 20 TAKE ONE CAPSULE BY MOUTH DAILY BEFORE A MEAL 30 Active Lisinopril 10 orally daily 1 tablet 24h 90 Acti ve RESULTS Name Result Date Reference Range UA LONG DIP (IN HOUSE) 2016-10-31 Lot # [id number] Exp date 2017 04 30 Clarity clear Color yellow Odor none GLU negative YONATAN negative KET negative SG 1.010 BLO negative pH 6.0 Protein negative URO 0.2 NIT negative EVERETTE negative Lot # [id number] Exp date 2017 07 PROCEDURES Procedure Date Ordered Result Body Site URINALYSIS, AUTO, W/O SCOPE October 31, 2016 [facility] VISIT ESTABLISHED PATIENT October 31, 2016 [...] in joint, lower leg Surgical History EGD 2013 Surgical History colonoscopy 2013 Surgical History tonsillectomy Surgical History hysterectomy, total with yonatan ateral salpingo-oophorectomy (BSO) d/t 1999 Surgical History orthopedic surgery-Left foot spurs
--- OUTSIDE RECORDS SUMMARY | 2019-08-23 12:16 | XMS REPORT ---
Author Author Veronica REYNOSO Organization [employer] Address Unknown Phone Unavailable Care Team Providers Care Carpentry Teacher Name Role Phone LIZA REYNOSOWNYA CP Unavailable Allergies No Known Allergies Problems [...] disorder, not elsewhere classified 311 Active Medications Medication Code System Code Instructions Start Date End Date Status Dosage Xanax [facility] [address]-12 0.5 MG Orally 2 times a day PRN mus t last 30 days. 1 tablet Hydrocodone-Acetaminophen [facility] [address]-43 10-325 MG Orally 2-3 times per day must last 30 days 1 tablet as ne eded Results No Known Results Summary Purpose [employer] Submission
--- OUTSIDE RECORDS SUMMARY | 2019-08-23 12:16 | XMS REPORT ---
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
--- OUTSIDE RECORDS SUMMARY | 2019-08-23 12:16 | XMS REPORT ---
Author Veronica Wallis Organization [employer] Address Unknown Phone Unavailable Care Team Providers Care Physical Fitness Trainer Name Role Phone ANGE REYNOSO CP Unavailable [...]
--- OUTSIDE RECORDS SUMMARY | 2019-08-23 12:16 | XMS REPORT ---
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 Name Role Phone Migration, Doctor Unavailable Unavailable PROBLEMS Type Condition ICD9-CM Code LTY42-VP Code Onset Dates Condition S tatus SNOMED Code Problem Bilateral low back pain without sciatica M54.5 Active 706907159 Problem Anxiety F41.9 Active 26624514 Problem Chronic pain syndrome G89.4 Active 241504021 Problem Thrush B37.0 Active 33220274 Problem Type 2 diabetes mellitus with complication E11.8 Active 98177504 Problem COPD with acute exacerbation J44.1 A ctive 133752162 Problem History of long-term use of multiple prescription drugs Z92.29 Active 419967189 Problem Essential hypertension I10 Active 33047008 Problem Mixed hyperlipidemia E78.2 Active 697413736 Problem Long-term use of high-risk medication Z79.899 Active 788353160 Problem Chronic obstructive pulmonary disease, unspecified COPD ty pe J44.9 Active [id number] ALLERGIES No Information ENCOUNTERS Encounter Location Date Diagnosis [facility] [address] [address] Nov, [facility] [address] [address] October, Scabies B86 [facility] [address] [id number] [address] [place] [address] October, Acute upper respiratory infe ction, unspecified J06.9 [facility] [address] [address] October, Dysuria R30.0 and Coughing R 05 [facility] [address] [id number] [address] [place] [address] Aug, [facility] [address] [address] Jun, [facility] [address] [id number] [address] [place] [address] Jun, [facility] [address] [id number] [address] [place] [address] Jun, [facility] [address] [id number] [address] [place] [address] May, [facility] [address] [id number] [address] [place] [address] May, [facility] [address] [id number] [address] [place] [address] May, [facility] [address] [facility] [id number] [address] [place] [address] Apr, Type 2 diabetes mellitus wit h complication E11.8 ; Chronic pain syndrome G89.4 ; Bilateral low back pain without sciatica M54.5 ; Essential hypertension I10 ; Anxiety F41.9 ; COPD with acute exacerbation J44.1 ; Pain of left hand M79.642 and Pain in right hand M79.641 [facility] [address] [id number] [address] [place] [address] Apr, [facility] [address] [id number] [address] [place] [address] Mar, [facility] [address] [id number] [address] [place] [address] Mar, [facility] [address] [id number] [address] [place] [address] Mar, [facility] [address] [id number] [address] [place] [address] Feb, [facility] [address] [id number] [address] [place] [address] Feb, [facility] [address] [facility] [id number] [address] [place] [address] Jan, Type 2 diabetes mellitus wit h complication E11.8 ; Chronic pain syndrome G89.4 ; Bilateral low back pain without sciatica M54.5 ; Essential hypertension I10 ; Anxiety F41.9 ; Chronic obstructive pulmonary disease, unspecified COPD type J44.9 and Thrush B37.0 [facility] [address] [id number] [address] [place] [address] Jan, [facility] [address] [id number] [address] [place] [address] Dec, [facility] [address] [id number] [address] [place] [address] Dec, [facility] [address] [id number] [address] [place] [address] Nov, [facility] [address] [id number] [address] [place] [address] Nov, [facility] [address] [id number] [address] [place] [address] Nov, [facility] [address] [id number] [address] [place] [address] Nov, Chest pain, unspecified type R07.9 and COPD exacerbation J44.1 [facility] [address] [id number] [address] [place] [address] October, [facility] [address] [id number] [address] [place] [address] Sep, [facility] [address] [id number] [address] [place] [address] Sep, Type 2 diabetes mellitus wit h complication E11.8 ; Chronic pain syndrome G89.4 ; Bilateral low back pain without sciatica M54.5 ; Essential hypertension I10 ; Anxiety F41.9 and COPD exacerbation J44.1 [facility] [address] [id number] [address] [place] [address] Aug, [facility] [address] [id number] [address] [place] [address] Aug, [facility] [address] [facility] [id number] [address] [place] [address] Aug, Chronic pain syndrome G89.4 [facility] [address] [facility] [id number] [address] [place] [address] Aug, [facility] [address] [facility] [id number] [address] [place] [address] Aug, [facility] [address] [facility] [id number] [address] [place] [address] Jul, Chronic pain syndrome G89.4 and Anxiety F41.9 [facility] [id number] [place] [address] Jul, [facility] [address] [id number] [address] [place] [address] Jun, Bilateral low back pain with out sciatica M54.5 ; Chronic pain syndrome G89.4 ; Anxiety F41.9 ; History of long-term use of multiple prescription drugs Z92.29 ; Type 2 diabetes mellitus with complication E11.8 ; Long-term use of high-risk medication Z79.899 ; Mixed hyperlipidemia E78.2 and Essential hypertension I10 [facility] [address] [facility] [id number] [address] [place] [address] Jun, [facility] [address] [facility] [id number] [address] [place] [address] Jun, [facility] [address] [id number] [address] [place] [address] May, [facility] [address] [facility] [id number] [address] [place] [address] Apr, [facility] [address] [facility] [id number] [address] [place] [address] Mar, [facility] [address] [facility] [id number] [address] [place] [address] Mar, Bilateral low back pain with out sciatica M54.5 ; History of long- term use of multiple prescription drugs Z92.29 ; Anxiety F41.9 ; Chronic pain syndrome G89.4 ; Type 2 diabetes mellitus with complication E11.8 ; Long-term use of high-risk medication Z79.899 and Mixed hyperlipidemia E78.2 [facility] [address] [facility] [id number] [address] [place] [address] Mar, [facility] [address] [id number] [address] [place] [address] Mar, Chronic pain syndrome G89.4 [facility] [address] [id number] [address] [place] [address] Mar, [facility] [address] [id number] [address] [place] [address] Feb, [facility] [address] [id number] [address] [place] [address] Feb, [facility] [address] [facility] [id number] [address] [place] [address] Feb, [facility] [address] [id number] [address] [place] [id number] Feb, [facility] [address] [id number] [address] [place] [address] Jan, [facility] [address] [id number] [address] [place] [address] Jan, [facility] [address] [id number] [address] [place] [address] Dec, [facility] [address] [id number] [address] [place] [address] Dec, Lumbago 724.2 ; Diabetes thony litus without mention of complication, type II or unspecified type, not stated as uncontrolled 250.00 ; Essential hypertension, benign 401.1 ; Anxiety state, unspecified 300.00 ; Chronic pain 338.29 ; COPD with acute exacerbation 491.21 ; Tobacco abuse 305.1 ; Depression 311 and Hyperlipidemia 272.4 [facility] [address] [id number] [address] [place] [address] Dec, [facility] [address] [id number] [address] [place] [address] Nov, Lumbago 724.2 ; Diabetes thony litus without mention of complication, type II or unspecified type, not stated as uncontrolled 250.00 ; Essential hypertension, benign 401.1 ; Anxiety state, unspecified 300.00 ; Chronic pain 338.29 ; COPD with acute exacerbation 491.21 ; Tobacco abuse 305.1 and Depression 311 [facility] [address] [id number] [address] [place] [address] Nov, [facility] [address] [id number] [address] [place] [address] Nov, [facility] [address] [id number] [address] [place] [address] Nov, [facility] [address] [id number] [address] [place] [address] October, [facility] [address] [id number] [address] [place] [address] October, [facility] [address] [id number] [address] [place] [address] October, [facility] [address] [id number] [address] [place] [address] October, [facility] [address] [id number] [address] [place] [address] October, [facility] [address] [id number] [address] [place] [address] Sep, [facility] [address] [id number] [address] [place] [address] Sep, [facility] [address] [id number] [address] [place] [id number] Sep, [facility] [address] [id number] [facility] [place] [address] 23 Aug, 2014 [facility] [address] [id number] [address] [place] [address], [place] [address] 23 Aug, 2014 [facility] [address] [id number] [address] [place] [address], [place] [address] 20 Aug, 2014 [facility] [address] [id number] [address] [place] [address], [place] [address] 20 Aug, 2014 [facility] [address] [id number] [address] [place] [address], [place] [address] 19 Aug, 2014 [facility] [address] [id number] [address] [place] [address], [place] [address] 19 Aug, 2014 [facility] [address] [id number] [address] [place] [address], [place] [address] 16 Aug, 2014 [facility] [address] [id number] [address] [place] [address], [place] [address] 16 Aug, 2014 [facility] [address] [id number] [address] [place] [address], [place] [address] 16 Aug, 2014 [facility] [address] [id number] [address] [place] [address], [place] [address] 16 Aug, 2014 [facility] [address] [id number] [address] [place] [address], [place] [address] 13 Aug, 2014 [facility] [address] [id number] [address] [place] [address], [place] [address] 13 Aug, 2014 [facility] [address] [id number] [address] [place] [address], [place] [address] 24 Jul, 2014 [facility] [address] [id number] [address] [place] [address], [place] [address] 23 Jul, 2014 [facility] [address] [id number] [address] [place] [address], [place] [address] 23 Jul, 2014 [facility] [address] [id number] [address] [place] [address], [place] [address] Jul, [facility] [address] [id number] [address] [place] [address], [place] [address] Jul, [facility] [address] [id number] [address] [place] [address], [place] [address] Jul, [facility] [address] [id number] [address] [place] [address], [place] [address] Jul, [facility] [address] [id number] [address] [place] [address], [place] [address] Jun, [facility] [address] [id number] [address] [place] [address], [place] [address] Jun, [facility] [address] [id number] [address] [place] [address], [place] [address] Jun, [facility] [address] [id number] [address] [place] [address], [place] [address] Jun, [facility] [address] [id number] [address] [place] [address], [place] [address] Jun, [facility] [address] [id number] [address] [place] [address], [place] [address] Jun, [facility] [address] [id number] [address] [place] [address], [place] [address] Jun, [facility] [address] [id number] [address] [place] [address], [place] [address] Jun, [facility] [address] [id number] [address] [place] [address], [place] [address] Jun, [facility] [address] [id number] [address] [place] [address], [place] [address] May, [facility] [address] [id number] [address] [place] [address], [place] [address] May, [facility] [address] [id number] [address] [place] [address], [place] [address] May, [facility] [address] [id number] [address] [place] [address], [place] [address] 30 May, 2014 [facility] [address] [id number] [address] [place] [address], [place] [address] 17 May, 2014 [facility] [address] [id number] [address] [place] [address], [place] [address] 15 May, 2014 [facility] [address] [id number] [address] [place] [address], [place] [address] 15 May, 2014 [facility] [address] [id number] [address] [place] [address], [place] [address] 12 May, 2014 [facility] [address] [id number] [address] [place] [address], [place] [address] May, [facility] [address] [id number] [address] [place] [address], [place] [address] May, [facility] [address] [id number] [address] [place] [address], [place] [address] May, [facility] [address] [id number] [address] [place] [address], [place] [address] Apr, [facility] [address] [id number] [address] [place] [address], [place] [address] Apr, [facility] [address] [id number] [address] [place] [address], [place] [address] Apr, [facility] [address] [id number] [address] [place] [address], [place] [address] Apr, [facility] [address] [id number] [address] [place] [address], [place] [address] Mar, [facility] [address] [id number] [address] [place] [address], [place] [address] 29 Mar, 2014 [facility] [address] [id number] [address] [place] [address], [place] [address] 2014 [facility] [address] [id number] [address] [place] [address] [address] 2014 [facility] [address] [id number] [address] [place] [address], [place] [address] 08 Mar, 2014 [facility] [address] [id number] [address] [place] [address], [place] [address] 08 Mar, 2014 [facility] [address] [id number] [address] [place] [address], [place] [address] 29 Feb, 2014 [facility] [address] [id number] [address] [place] [address], [place] [address] 29 Feb, 2014 [facility] [address] [id number] [address] [place] [address], [place] [address] 17 Feb, 2014 [facility] [address] [id number] [address] [place] [address], [place] [address] 16 Feb, 2014 [facility] [address] [id number] [address] [place] [address], [place] [address] 16 Feb, 2014 [facility] [address] [id number] [address] [place] [address], [place] [address] Feb, [facility] [address] [id number] [address] [place] [address], [place] [address] Feb, [facility] [address] [id number] [address] [place] [address], [place] [address] Jan, [facility] [address] [id number] [address] [place] [address], [place] [address] Jan, [facility] [address] [id number] [address] [place] [address], [place] [address] Jan, [facility] [address] [id number] [address] [place] [address], [place] [address] Jan, [facility] [address] [id number] [address] [place] [address], [place] [address] Dec, [facility] [address] [id number] [address] [place] [address], [place] [address] Dec, [facility] [address] [id number] [address] [place] [address] Dec, [facility] [address] [facility] [id number] [address] [address] Dec, IMMUNIZATIONS No Known Immunizations SOCIAL HISTORY Never Assessed REASON FOR [place] [place] VITAL SIGNS MEDICATIONS Unknown [...]
--- OUTSIDE RECORDS SUMMARY | 2019-08-23 12:16 | XMS REPORT ---
Author Author Veronica Vanessa Doctor Organization [facility] Address Unknown Phone Unavailable Care Team Providers Care Supervisor Assembly Room Name Role Phone Migration, Doctor Unavailable Unavailable PROBLEMS Type Condition ICD9-CM Code CIA41-FT Code Onset Dates Condition S tatus SNOMED Code Problem Bilateral low back pain without sciatica M54.5 Active 310758731 Problem Anxiety F41.9 Active 21326339 Problem Chronic pain syndrome G89.4 Active 658211047 Problem Thrush B37.0 Active 34184960 Problem Type 2 diabetes mellitus with complication E11.8 Active 74357380 Problem COPD with acute exacerbation J44.1 A ctive 151658895 Problem History of long-term use of multiple prescription drugs Z92.29 Active 326682956 Problem Essential hypertension I10 Active 66614130 Problem Mixed hyperlipidemia E78.2 Active 511294690 Problem Long-term use of high-risk medication Z79.899 Active 273723867 Problem Chronic obstructive pulmonary disease, unspecified COPD ty pe J44.9 Active 04754758 ALLERGIES No Information ENCOUNTERS Encounter Location Date Diagnosis [facility] [address] [address] Nov, [facility] [address] [address] October, Scabies B86 [facility] [address] [id number] [address] [place] [address] October, Acute upper respiratory infe ction, unspecified J06.9 [facility] [address] [address] October, Dysuria R30.0 and Coughing R 05 [facility] [address] [id number] [address] [place] [address] Aug, [facility] [address] [address] Jun, [facility] [address] [id number] [address] [place] [address] Jun, [facility] [address] [id number] [address] [place] [address] Jun, [facility] [address] [id number] [address] [place] [address] May, [facility] [address] [id number] [address] [place] [address] May, [facility] [address] [id number] [address] [place] [address] May, [facility] [address] [facility] [id number] [address] [place] [address] Apr, Type 2 diabetes mellitus wit h complication E11.8 ; Chronic pain syndrome G89.4 ; Bilateral low back pain without sciatica M54.5 ; Essential hypertension I10 ; Anxiety F41.9 ; COPD with acute exacerbation J44.1 ; Pain of left hand M79.642 and Pain in right hand M79.641 [facility] [address] [id number] [address] [place] [address] Apr, [facility] [address] [id number] [address] [place] [address] Mar, [facility] [address] [id number] [address] [place] [address] Mar, [facility] [address] [id number] [address] [place] [address] Mar, [facility] [address] [id number] [address] [place] [address] Feb, [facility] [address] [id number] [address] [place] [address] Feb, [facility] [address] [facility] [id number] [address] [place] [address] Jan, Type 2 diabetes mellitus wit h complication E11.8 ; Chronic pain syndrome G89.4 ; Bilateral low back pain without sciatica M54.5 ; Essential hypertension I10 ; Anxiety F41.9 ; Chronic obstructive pulmonary disease, unspecified COPD type J44.9 and Thrush B37.0 [facility] [address] [id number] [address] [place] [address] Jan, [facility] [address] [id number] [address] [place] [address] Dec, [facility] [address] [id number] [address] [place] [address] Dec, [facility] [address] [id number] [address] [place] [address] Nov, [facility] [address] [id number] [address] [place] [address] Nov, [facility] [address] [id number] [address] [place] [address] Nov, [facility] [address] [id number] [address] [place] [address] Nov, Chest pain, unspecified type R07.9 and COPD exacerbation J44.1 [facility] [address] [id number] [address] [place] [address] October, [facility] [address] [id number] [address] [place] [address] Sep, [facility] [address] [id number] [address] [place] [address] Sep, Type 2 diabetes mellitus wit h complication E11.8 ; Chronic pain syndrome G89.4 ; Bilateral low back pain without sciatica M54.5 ; Essential hypertension I10 ; Anxiety F41.9 and COPD exacerbation J44.1 [facility] [address] [id number] [address] [place] [address] Aug, [facility] [address] [id number] [address] [place] [address] Aug, [facility] [address] [facility] [id number] [address] [place] [address] Aug, Chronic pain syndrome G89.4 [facility] [address] [facility] [id number] [address] [place] [address] Aug, [facility] [address] [facility] [id number] [address] [place] [address] Aug, [facility] [address] [facility] [id number] [address] [place] [address] Jul, Chronic pain syndrome G89.4 and Anxiety F41.9 [facility] [id number] [place] [address] Jul, [facility] [address] [id number] [address] [place] [address] Jun, Bilateral low back pain with out sciatica M54.5 ; Chronic pain syndrome G89.4 ; Anxiety F41.9 ; History of long-term use of multiple prescription drugs Z92.29 ; Type 2 diabetes mellitus with complication E11.8 ; Long-term use of high-risk medication Z79.899 ; Mixed hyperlipidemia E78.2 and Essential hypertension I10 [facility] [address] [facility] [id number] [address] [place] [address] Jun, [facility] [address] [facility] [id number] [address] [place] [address] Jun, [facility] [address] [id number] [address] [place] [address] May, [facility] [address] [facility] [id number] [address] [place] [address] Apr, [facility] [address] [facility] [id number] [address] [place] [address] Mar, [facility] [address] [facility] [id number] [address] [place] [address] Mar, Bilateral low back pain with out sciatica M54.5 ; History of long- term use of multiple prescription drugs Z92.29 ; Anxiety F41.9 ; Chronic pain syndrome G89.4 ; Type 2 diabetes mellitus with complication E11.8 ; Long-term use of high-risk medication Z79.899 and Mixed hyperlipidemia E78.2 [facility] [address] [facility] [id number] [address] [place] [address] Mar, [facility] [address] [id number] [address] [place] [address] Mar, Chronic pain syndrome G89.4 [facility] [address] [id number] [address] [place] [address] Mar, [facility] [address] [id number] [address] [place] [address] Feb, [facility] [address] [id number] [address] [place] [address] Feb, [facility] [address] [facility] [id number] [address] [place] [address] Feb, [facility] [address] [id number] [address] [place] [address] Feb, [facility] [address] [id number] [address] [place] [address] Jan, [facility] [address] [id number] [address] [place] [address] Jan, [facility] [address] [id number] [address] [place] [address] Dec, [facility] [address] [id number] [address] [place] [address] Dec, Lumbago 724.2 ; Diabetes thony litus without mention of complication, type II or unspecified type, not stated as uncontrolled 250.00 ; Essential hypertension, benign 401.1 ; Anxiety state, unspecified 300.00 ; Chronic pain 338.29 ; COPD with acute exacerbation 491.21 ; Tobacco abuse 305.1 ; Depression 311 and Hyperlipidemia 272.4 [facility] [address] [id number] [address] [place] [address] Dec, [facility] [address] [id number] [address] [place] [address] Nov, Lumbago 724.2 ; Diabetes thony litus without mention of complication, type II or unspecified type, not stated as uncontrolled 250.00 ; Essential hypertension, benign 401.1 ; Anxiety state, unspecified 300.00 ; Chronic pain 338.29 ; COPD with acute exacerbation 491.21 ; Tobacco abuse 305.1 and Depression 311 [facility] [address] [id number] [address] [place] [address] Nov, [facility] [address] [id number] [address] [place] [address] Nov, [facility] [address] [id number] [address] [place] [address] Nov, [facility] [address] [id number] [address] [place] [address] October, [facility] [address] [id number] [address] [place] [address] October, [facility] [address] [id number] [address] [place] [address] October, [facility] [address] [id number] [address] [place] [address] October, [facility] [address] [id number] [address] [place] [address] October, [facility] [address] [id number] [address] [place] [address] Sep, [facility] [address] [id number] [address] [place] [address] Sep, [facility] [address] [id number] [address] [place] [address] Sep, [facility] [address] [id number] [facility] [place] [address] 23 Aug, 2014 [facility] [address] [id number] [address] [place] [address], [place] [address] 23 Aug, 2014 [facility] [address] [id number] [address] [place] [address], [place] [address] 20 Aug, 2014 [facility] [address] [id number] [address] [place] [address], [place] [address] 20 Aug, 2014 [facility] [address] [id number] [address] [place] [address], [place] [address] 19 Aug, 2014 [facility] [address] [id number] [address] [place] [address], [place] [address] 19 Aug, 2014 [facility] [address] [id number] [address] [place] [address], [place] [address] 16 Aug, 2014 [facility] [address] [id number] [address] [place] [address], [place] [address] 16 Aug, 2014 [facility] [address] [id number] [address] [place] [address], [place] [address] 16 Aug, 2014 [facility] [address] [id number] [address] [place] [address], [place] [address] 16 Aug, 2014 [facility] [address] [id number] [address] [place] [address], [place] [address] 13 Aug, 2014 [facility] [address] [id number] [address] [place] [address], [place] [address] 13 Aug, 2014 [facility] [address] [id number] [address] [place] [address], [place] [address] 24 Jul, 2014 [facility] [address] [id number] [address] [place] [address], [place] [address] 23 Jul, 2014 [facility] [address] [id number] [address] [place] [address], [place] [address] 23 Jul, 2014 [facility] [address] [id number] [address] [place] [address], [place] [address] Jul, [facility] [address] [id number] [address] [place] [address], [place] [address] Jul, [facility] [address] [id number] [address] [place] [address], [place] [address] Jul, [facility] [address] [id number] [address] [place] [address], [place] [address] Jul, [facility] [address] [id number] [address] [place] [address], [place] [address] Jun, [facility] [address] [id number] [address] [place] [address], [place] [address] Jun, [facility] [address] [id number] [address] [place] [address], [place] [address] Jun, [facility] [address] [id number] [address] [place] [address], [place] [address] Jun, [facility] [address] [id number] [address] [place] [address], [place] [address] Jun, [facility] [address] [id number] [address] [place] [address], [place] [address] Jun, [facility] [address] [id number] [address] [place] [address], [place] [address] Jun, [facility] [address] [id number] [address] [place] [address], [place] [address] Jun, [facility] [address] [id number] [address] [place] [address], [place] [address] Jun, [facility] [address] [id number] [address] [place] [address], [place] [address] May, [facility] [address] [id number] [address] [place] [address], [place] [address] May, [facility] [address] [id number] [address] [place] [address], [place] [address] May, [facility] [address] [id number] [address] [place] [address], [place] [address] 30 May, 2014 [facility] [address] [id number] [address] [place] [address], [place] [address] 17 May, 2014 [facility] [address] [id number] [address] [place] [address], [place] [address] 15 May, 2014 [facility] [address] [id number] [address] [place] [address], [place] [address] 15 May, 2014 [facility] [address] [id number] [address] [place] [address], [place] [address] 12 May, 2014 [facility] [address] [id number] [address] [place] [address], [place] [address] May, [facility] [address] [id number] [address] [place] [address], [place] [address] May, [facility] [address] [id number] [address] [place] [address], [place] [address] May, [facility] [address] [id number] [address] [place] [address], [place] [address] Apr, [facility] [address] [id number] [address] [place] [address], [place] [address] Apr, [facility] [address] [id number] [address] [place] [address], [place] [address] Apr, [facility] [address] [id number] [address] [place] [address], [place] [address] Apr, [facility] [address] [id number] [address] [place] [address], [place] [address] Mar, [facility] [address] [id number] [address] [place] [address], [place] [address] 29 Mar, 2014 [facility] [address] [id number] [address] [place] [address], [place] [address] 2014 [facility] [address] [id number] [address] [place] [address], [place] [address] 2014 [facility] [address] [id number] [address] [place] [address], [place] [address] 08 Mar, 2014 [facility] [address] [id number] [address] [place] [address], [place] [address] 08 Mar, 2014 [facility] [address] [id number] [address] [place] [address], [place] [address] 29 Feb, 2014 [facility] [address] [id number] [address] [place] [address], [place] [address] 29 Feb, 2014 [facility] [address] [id number] [address] [place] [address], [place] [address] 17 Feb, 2014 [facility] [address] [id number] [address] [place] [address], [place] [address] 16 Feb, 2014 [facility] [address] [id number] [address] [place] [address], [place] [address] 16 Feb, 2014 [facility] [address] [id number] [address] [place] [address], [place] [address] Feb, [facility] [address] [id number] [address] [place] [address], [place] [address] Feb, [facility] [address] [id number] [address] [place] [address], [place] [address] Jan, [facility] [address] [id number] [address] [place] [address], [place] [address] Jan, [facility] [address] [id number] [address] [place] [address], [place] [address] Jan, [facility] [address] [id number] [address] [place] [address], [place] [address] Jan, [facility] [address] [id number] [address] [place] [address], [place] [address] Dec, [facility] [address] [id number] [address] [place] [address], [place] [address] Dec, [facility] [address] [id number] [address] [address] Dec, [facility] [address] [facility] [id number] [address] [place] [address] Dec, IMMUNIZATIONS No Known Immunizations SOCIAL HISTORY Never Assessed REASON FOR VISIT [facility] PLAN OF CARE VITAL SIGNS MEDICATIONS Medication Instructions Dosage Frequency Start Date End Date Duration S tatus cyclobenzaprine 10 mg 1 tablet 1 time pe r day for 10 days PRN at hs for neck pain muscle spasm Apr, Active Fluoxetine 20 mg take 1 capsule (20 mg) by oral route once daily Dec, Active Colace 100 mg 1 capsule by Oral route 2 times per day PRN Jul, Active Simvastatin 80 mg 1 Tablet 1 time per day Mar, Active BuPROPion HCl 150 mg take 1 tablet (150 mg) by oral ro katherine 2 times per day Mar, Active Azithromycin 250 mg 2 Tablet by Oral rou te on day 1 then take 1 daily for 4 days Feb, Active FeroSul 325 mg (65 mg iron) 1 Tablet 1 time per day J ul, 2013 Active Xanax 0.5 mg 1 tablet by Oral route 2 times per day NM N MUST LAST 30 DAYS Aug, Active DiphenhydrAMINE HCl 25 mg take 1 capsule by Oral route 1 time per day at HS Dec, Active Hydrocodone-Acetaminophen 10-325 mg 1 Ta blet by Oral route 2-3 times per day PRN MUST LAST 30 DAYS Aug, Active Aspirin 81 mg 1 tablet by Oral route 1 time per day , 2013 Active Clotrimazole 1 % 1 donald by Topical route 2 times per day Mar, Active Prochlorperazine Maleate 5 mg take 2 tablets by Oral route every 6 hours PRN Dec, Active metformin 500 mg take 1 tablet by Ora l route 2 times per day with morning and evening meals for diabetes Dec, Active Metoclopramide HCl 10 mg 1 tablet by Oral route 3 time s per day Aug, Active Omeprazole 20 mg take 1 capsule (20 m g) by oral route once daily before a meal Dec, Active Diclofenac Sodium 75 mg 1 tablet by Oral route 2 times per day PRN Aug, Active Lisinopril 10 mg take 1 tablet by Oral route 1 time pe r day Take in am Dec, Active Nystatin 100,000 unit/mL take 1 mL by Or al route 4 times per day Until thrush is gone, then for 2 more days Jan, Active dicyclomine 20 mg 1 tablet by Oral route 4 times per day PRN Dec, Active Lyrica 75 mg 1 capsule by Oral ro katherine 2 times per day dioapathic neuropathy (356.9) Jul, Active Ranitidine HCl 150 mg 1 tablet by Oral route 2 times per day Mar, Active Diflucan 100 mg 1 Tablet by Oral route 1 time per day for 5 day May, Active RESULTS No Results PROCEDURES No Known [...]
--- OUTSIDE RECORDS SUMMARY | 2019-08-23 12:17 | XMS REPORT ---
Author Author RICOGhassanVeronica Organization [employer] Address Unknown Phone Unavailable Care Team Providers Care Corporate Learning Consultant Name Role Phone ANGE REYNOSO CP Unavailable [...] Start Date End Date Status Dosage Xanax [facility] [address]-41 0.5 MG Orally 2 times a day PRN must last 28 days. Appt needed before next refill is due 1 tablet Hydrocodone-Acetaminophen [facility] [address]-55 10-325 MG Orally 2-3 times per day. must last 28 days. appt needed before refill is due. 1 tablet as needed Results No Known Results Summary Purpose [employer] Submission
--- OUTSIDE RECORDS SUMMARY | 2019-08-23 12:17 | XMS REPORT ---
Author Author Veronica REYNOSO Organization [employer] Address Unknown Phone Unavailable Care Team Providers Care Braille Teacher Name Role Phone ANGE REYNOSO CP Unavailable [...] Problem Candidiasis of mouth 112.0 Active Medications Medication Code System Code Instructions Start Date End Date Status Dosage Lisinopril [facility] [address]-36 10 MG must have ov in March take 1 tablet by Oral route 1 time per day Take in am Results No Known Results Summary Purpose [employer] Submission
--- OUTSIDE RECORDS SUMMARY | 2019-08-23 12:17 | XMS REPORT ---
Author Author Veronica REYNOSO [facility] Address [address] [place] [address] Care Team Providers Care Forging Die Sinker Name Role Phone AGNELES ANGE Unavailable PROBLEMS Type Condition ICD9-CM Code [id number] Code Onset Dates Condition S tatus SNOMED Code Problem Anxiety F41.9 Active 58396619 Problem Bilateral low back pain without sciatica M54.5 Active 461177433 Problem History of long-term use of multiple prescription drugs Z92.29 Active 226451472 Problem Type 2 diabetes mellitus with complication E11.8 Active 43404498 Problem Chronic pain syndrome G89.4 Active 392125697 Problem COPD with acute exacerbation J44.1 A ctive 793538376 Problem Chronic obstructive pulmonary disease, unspecified COPD ty pe J44.9 Active 84848845 Problem Mixed hyperlipidemia E78.2 Active 326411233 Problem Essential hypertension I10 Active 89574265 Problem Thrush B37.0 Active 41311886 Problem Long-term use of high-risk medication Z79.899 Active 959094975 ALLERGIES Unknown Allergies SOCIAL HISTORY No smoking Hx information available PLAN OF CARE VITAL SIGNS MEDICATIONS Unknown Medications RESULTS No Results PROCEDURES No Known procedures IMMUNIZATIONS No Known Immunizations
--- OUTSIDE RECORDS SUMMARY | 2019-08-23 12:17 | XMS REPORT ---
Author Veronica Wallis [facility] eClinicalWorks Address Unknown Phone Unavailable Care Team Providers Care Planetarium Sky Show Technician Name Role Phone ANGE REYNOSO CP Unavailable Allergies No Known Allergies Problems Problem Type Condition Code Onset Dates Condition Statu s Problem Chronic pain syndrome G89.4 Active Problem Type 2 diabetes mellitus with complication E11.8 Active Problem Long-term use of high-risk medication Z79.899 Active Problem Mixed hyperlipidemia E78.2 Active Problem COPD exacerbation J44.1 Active Problem History of long-term use of multiple prescription drug s Z92.29 Active Problem Anxiety F41.9 Active Problem Essential hypertension I10 Activ e Problem Bilateral low back pain without sciatica M54.5 Active Medications Medication Code System Code Instructions Start Date End Date Status Dosage Lyrica [facility] [id number] 75 Orally Twice a day 1 capsule Results No Known Results Summary Purpose eClinicalWorks Submission
--- OUTSIDE RECORDS SUMMARY | 2019-08-23 12:17 | XMS REPORT ---
Author Veronica Wallis [facility] eClinicalWorks Address Unknown Phone Unavailable Care Team Providers Care Arboriculture Teacher Name Role Phone RICOGhassan ANGE CP Unavailable Allergies, Adverse Reactions, Alerts Substance Reaction Event Type N.K.D.A. Info Not Available Non Drug Allergy Problems Problem Type Condition Code Onset Dates Condition Statu s Assessment Chronic pain syndrome G89.4 Active Problem Type 2 diabetes mellitus with complication E11.8 Active Assessment Bilateral low back pain without sciatica M54.5 Active Problem Mixed hyperlipidemia E78.2 Active Problem Essential hypertension I10 Activ e Problem Long-term use of high-risk medication Z79.899 Active Problem Anxiety F41.9 Active Problem Chronic pain syndrome G89.4 Active Problem Bilateral low back pain without sciatica M54.5 Active Problem History of long-term use of multiple prescription drug s Z92.29 Active Assessment Long-term use of high-risk medication Z79.899 Active Assessment Type 2 diabetes mellitus with complication E11.8 Active Assessment Essential hypertension I10 Activ e Assessment History of long-term use of multiple prescription drug s Z92.29 Active Assessment Mixed hyperlipidemia E78.2 Active Assessment Anxiety F41.9 Active Medications Medication Code System Code Instructions Start Date End Date Status Dosage Zocor [facility] 61414653514 40 TAKE ONE TAB LET BY MOUTH DAILY Hydrocodone-Acetaminophen [facility] [address]-08 10-325 MG Orally 2-3 times per day. must last 28 days. 1 tablet as n eeded Xanax [facility] [address]-01 0.5 MG Orally 2 times a day PRN must last 28 days. Appt needed before next refill is due 1 tablet Lisinopril [facility] 15415361117 10 must have ov in March take 1 tablet by Oral route 1 time per day Take in am Fluoxetine ND 0 20 mg Once a day elias e 1 capsule (20 mg) by oral route once daily Omeprazole [facility] 96044809838 20 TAKE ONE CAPSULE BY MOUTH ONCE A DAY BEFORE A MEAL Aspirin [facility] [address]-14 81 mg 1 tablet b y Oral route 1 time per day Lyrica [facility] 98402521989 75 Orally Twice a day 1 capsule Colace [facility] [address]-54 100 mg Aug 03, 2014 1 ca psule by Oral route 2 times per day PRN Diclofenac Sodium [facility] 84995529718 75 TA KE ONE TABLET BY MOUTH TWICE A DAY Dicyclomine HCl [facility] 48899727191 20 TAKE ONE TABLET BY MOUTH FOUR TIMES A DAY Metoclopramide HCl [facility] 63812698327 10 T LYUDMILA ONE TABLET BY MOUTH THREE TIMES A DAY ProAir HFA [facility] [address]-93 108 (90 Base) MCG/ACT Inhal ation every 4 hrs December 14, 2014 2 puffs as needed BuPROPion HCl [facility] [address]-28 150 MG Apr 06, 2014 take 1 tablet (150 mg) by oral route 2 times per day Metformin HCl [facility] 49429238166 500 Orally Once a day 1 tab Zocor [facility] 23037916342 40 TAKE ONE TAB LET BY MOUTH DAILY Procedures Procedure Coding System Code Date [facility] VISIT ESTABLISHED PATIENT CPT-4 G0467 2015 Office Visit, Est Pt., Level 4 CPT-4 35032 2015 [facility] C[facility] NOBLL Jul 12, 2015 KENALOG 40 MG/ML (PER 10 MG) CPT-4 J3301 Jul 12, 2015 VENIPUNCT, ROUTINE* CPT-4 74355 Jul 12, 2015 THER/PROPH/DIAG INJ, SC/IM CPT-4 27650 Jun 242015 Vital Signs Date/Time: Jul 12, 2015 Temperature 97.0 F Weight 221.9 lbs Height 68 in BMI 33.74 Index Blood Pressure Diastolic 82 mmHg Blood Pressure Systolic 130 mmHg Cardiac Monitoring Heart Rate 84 bpm Results Name Result Date Reference Range Unit Abnormali ty Flag ROUTINE VENIPUNCTURE CMP ----Sodium, Serum 138 20150712 134-144 mmol/L ----BUN/Creatinine Ratio 20150712 ----Chloride, Serum 99 20150712 97-108 mmol/L ----Potassium, Serum 5.0 20150712 3.5-5.2 mmol/L ----Calcium, Serum 9.4 20150712 8.7-10.2 mg/dL ----Protein, Total, Serum 6.4 20150712 6.0-8.5 g/dL ----Carbon Dioxide, Total 23 20150712 18-29 mmol/L ----A/G Ratio 2.2 20150712 1.1-2.5 ----eGFR If NonAfricn Am 100 [id number] >59 mL/min/1.73 ----Bilirubin, Total <0.2 54713737 0.0-1.2 mg/dL ----eGFR If Africn Am 115 [id number] >59 mL/min/1.73 ----BUN 13 20150712 6-24 mg/dL ----Albumin, Serum 4.4 20150712 3.5-5.5 g/dL ----Globulin, Total 2.0 20150712 1.5-4.5 g/dL ----Creatinine, Serum 0.68 20150712 0.57-1.00 mg/dL ----ALT (SGPT) 16 20150712 0-32 IU/L ----Glucose, Serum 106 20150712 65-99 mg/dL H ----Alkaline Phosphatase, S 105 20150712 39-117 IU/L ----AST (SGOT) 11 20150712 0-40 IU/L Summary Purpose eClinicalWorks Submission
--- OUTSIDE RECORDS SUMMARY | 2019-08-23 12:17 | XMS REPORT ---
Author Veronica Wallis Organization eClinicalWorks Address Unknown Phone Unavailable Care Team Providers Care Clinical Trial Associate Name Role Phone ANGE REYNOSO CP Unavailable Allergies No Known Allergies Problems Problem Type Condition Code Onset Dates Condition Statu s Problem Type 2 diabetes mellitus with complication E11.8 Active Problem Mixed hyperlipidemia E78.2 Active Problem Essential hypertension I10 Activ e Problem Long-term use of high-risk medication Z79.899 Active Problem Anxiety F41.9 Active Problem Chronic pain syndrome G89.4 Active Problem Bilateral low back pain without sciatica M54.5 Active Problem History of long-term use of multiple prescription drug s Z92.29 Active Medications No Known Medications Results No Known Results Summary Purpose eClinicalWorks Submission
--- OUTSIDE RECORDS SUMMARY | 2019-08-23 12:17 | XMS REPORT ---
Author Author Veronica REYNOSO [facility] eClinicalWorks Address Unknown Phone Unavailable Care Team Providers Care Tubing Tester Name Role Phone ANEG REYNOSO CP Unavailable Allergies No Known Allergies Problems Problem Type Condition Code Onset Dates Condition Statu s Problem Chronic pain syndrome G89.4 Active Problem History of long-term use of multiple prescription drug s Z92.29 Active Problem Anxiety F41.9 Active Problem Type 2 diabetes mellitus with complication E11.8 Active Problem Thrush B37.0 Active Problem COPD exacerbation J44.1 Active Problem Chronic obstructive pulmonary disease, unspecified 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
--- OUTSIDE RECORDS SUMMARY | 2019-08-23 12:17 | XMS REPORT ---
Author Author Veronica REYNOSO Organization eClinicalWorks Address Unknown Phone Unavailable Care Team Providers Care Lap Machine Tender Name Role Phone ANGELES ANGE CP Unavailable Allergies No Known Allergies [...] Instructions Start Date End Date Status Dosage BuPROPion HCl [facility] [address]-73 150 MG Apr 06, 2014 take 1 tablet (150 mg) by oral route 2 times per day Results No Known Results Summary Purpose eClinicalWorks Submission
--- OUTSIDE RECORDS SUMMARY | 2019-08-23 12:17 | XMS REPORT ---
Author Veronica Wallis [facility] eClinicalWorks Address Unknown Phone Unavailable Care Team Providers Care Needle Board Repairer Name Role Phone ANGELES ANGE CP Unavailable [...] Active Problem Chronic obstructive pulmonary disease, unspecified IMPORT CUSTOMS CLEARING AGENT D type J44.9 Active Problem Essential hypertension I10 Activ e Problem Bilateral low back pain without sciatica M54.5 Active Problem Long-term use of high-risk medication Z79.899 Active Problem Mixed hyperlipidemia E78.2 Active Medications Medication Code System Code Instructions Start Date End Date Status Dosage Hydrocodone-Acetaminophen [facility] [place] [place] [address]-74 10-325 MG Orally 2-3 times per day. must last 28 days. 1 tablet as n eeded Xanax [facility] [address]-09 0.5 MG Orally Once a day-must last 28 days 1 tablet Results No Known Results Summary Purpose eClinicalWorks Submission
--- OUTSIDE RECORDS SUMMARY | 2019-08-23 12:17 | XMS REPORT ---
Author Veronica Wallis [facility] eClinicalWorks Address Unknown Phone Unavailable Care Team Providers Care Varnish Melter Name Role Phone ANGELES ANGE CP Unavailable Allergies, Adverse Reactions, Alerts Substance Reaction Event Type N.K.D.A. Info Not Available Non Drug Allergy Problems Problem Type Condition Code Onset Dates Condition Statu s Problem Chronic pain syndrome G89.4 Active Problem History of long-term use of multiple prescription drug s Z92.29 Active Problem Anxiety F41.9 Active Problem Chronic obstructive pulmonary disease, unspecified KNUCKLER D type J44.9 Active Problem Thrush B37.0 Active Problem COPD with acute exacerbation J44.1 Active Problem Essential hypertension I10 Activ e Problem Bilateral low back pain without sciatica M54.5 Active Problem Long-term use of high-risk medication Z79.899 Active Problem Mixed hyperlipidemia E78.2 Active Assessment Pain of left hand M79.642 Active Assessment COPD with acute exacerbation J44.1 Active Assessment Pain in right hand M79.641 Active Assessment Bilateral low back pain without sciatica M54.5 Active Assessment Chronic pain syndrome G89.4 Active Assessment Anxiety F41.9 Active Assessment Type 2 diabetes mellitus with complication E11.8 Active Assessment Essential hypertension I10 Activ e Problem Type 2 diabetes mellitus with complication E11.8 Active Medications Medication Code System Code Instructions Start Date End Date Status Dosage Metformin HCl [facility] 27831095299 500 Orally Once a day 1 tablet Lyrica [facility] 86913810018 75 Orally Twice a day 1 capsule Colace [facility] [address]-43 100 mg Aug 03, 2014 1 ca psule by Oral route 2 times per day PRN Diclofenac Sodium [facility] 90240347153 75 TA KE ONE TABLET BY MOUTH TWICE A DAY Dicyclomine HCl [facility] 44596646612 20 TAKE ONE TABLET BY MOUTH FOUR TIMES A DAY UNTIL GONE Xanax [facility] [address]-84 0.5 MG Orally Once a day 1 tablet Cefdinir [facility] [address]-59 300 MG Orally every 12 hrs May 15, 2 016 May 25, 2016 1 capsule Reglan [facility] 77161187516 10 TAKE ONE TAB LET BY MOUTH THREE TIMES A DAY Aspirin [facility] [address]-95 81 mg 1 tablet b y Oral route 1 time per day Ranitidine HCl [facility] 20812588672 150 TAKE ONE TABLET BY MOUTH TWICE A DAY Benzonatate [facility] [address]-89 100 MG Orally tid prn May 15, 2016 May 25, 2016 1 capsule as needed BuPROPion HCl (SR) [facility] 96709820955 150 T LYUDMILA ONE TABLET BY MOUTH TWICE A DAY ProAir HFA [facility] [address]-35 108 (90 Base) MCG/ACT Inhal ation every 4 hrs October 05, 2015 2 puffs as needed PredniSONE [facility] [address]-56 20 MG Orally Once a day May 15 6 May 22, 2016 1 tablet Zocor [facility] 39589294231 40 TAKE ONE TAB LET BY MOUTH DAILY ProAir HFA [facility] [address]-80 108 (90 Base) MCG/ACT Inhal ation every 4 hrs December 14, 2014 2 puffs as needed cyclobenzaprine [facility] [address]-28 10 mg May 04, 2014 1 tablet 1 time per day for 10 days PRN at for neck pain muscle spasm Incruse Ellipta [facility] [address]-04 62.5 MCG/INH Inhalation Once a day Feb 02, 2016 1 puff Hydrocodone-Acetaminophen [facility] [address]-55 10-325 MG Orally 2-3 times per day. must last 28 days. 1 tablet as n eeded Metoclopramide HCl [facility] 26368669128 10 T LYUDMILA ONE TABLET BY MOUTH THREE TIMES A DAY Omeprazole [facility] 57958568258 20 TAKE ONE CAPSULE BY MOUTH DAILY BEFORE A MEAL Lisinopril ND 73455724365 10 orally daily 1 tablet Procedures Procedure Coding System Code Date MICROALBUMIN, SEMIQUANT CPT-4 49236 May 15, 2016 X-RAY EXAM OF HAND CPT-4 78742 May 15, 2016 GLYCATED HEMOGLOBIN TEST CPT-4 14575 May 15, 2016 [facility] VISIT ESTABLISHED PATIENT CPT-4 G0467 N ov 2015 [facility] C[facility]-4 NOBLL May 15, 2016 VENIPUNCT, ROUTINE* CPT-4 54466 May 15, 2016 Office Visit, Est Pt., Level 5 CPT-4 18051 N 2015 Vital Signs Date/Time: May 15, 2016 Cardiac Monitoring Heart Rate 84 bpm Weight 272.2 lbs Height 68 in BMI 41.38 Index Blood Pressure Diastolic 100 mmHg Blood Pressure Systolic 142 mmHg Results Name Result Date Reference Range Unit Abnormali ty Flag RA (RHEUMATOID) FACTOR ----RA Latex Turbid. <10.0 20160515 0.0-13.9 IU/mL MICROALBUMIN, URINE (IN HOUSE) ----Color yellow 20160515 ----Clarity clear 20160515 ----CRE 50 mg/dL 20160515 ----ALB 10 mg/L 20160515 ----MICROALBUMIN Normal 20160515 ----Exp date [id number] ----Lot # [id number] ----A:C (IN HOUSE) <30 mg/g 20160515 A1C (IN HOUSE) ----A1C IN HOUSE 6.0 20160515 4.3 - 5.6 % ----Previous A1c 6.2 20160515 ----Lot [id number] 20160515 ----Exp date 20160515 ESR/SED RATE ----Sedimentation Rate-Westergren 23 20160515 0-40 mm /hr Xray : Hand, Right 2 views (IN HOUSE) ROUTINE VENIPUNCTURE Xray : Hand, Left 2 views (IN HOUSE) Summary Purpose eClinicalWorks Submission
--- OUTSIDE RECORDS SUMMARY | 2019-08-23 12:17 | XMS REPORT ---
Author Author RICOGhassanVeronica Organization [facility] Address [address] [place] [address] Care Team Providers Care Dry Chain Puller Name Role Phone LIZA REYNOSOWNYA Unavailable PROBLEMS Type Condition ICD9-CM Code [id number] Code Onset Dates Condition S tatus SNOMED Code Problem Chronic pain syndrome G89.4 Active 937422220 Problem History of long-term use of multiple prescription drugs Z92.29 Active 904742038 Problem Anxiety F41.9 Active 80434035 Problem Type 2 diabetes mellitus with complication E11.8 Active 99854556 Problem Chronic obstructive pulmonary disease, unspecified COPD ty pe J44.9 Active 61420874 Problem Thrush B37.0 Active 53947901 Problem Essential hypertension I10 Active 23848617 Problem Bilateral low back pain without sciatica M54.5 Active 060499882 Problem Long-term use of high-risk medication Z79.899 Active 083812758 Problem Mixed hyperlipidemia E78.2 Active 982797488 ALLERGIES Unknown Allergies SOCIAL HISTORY No smoking Hx information available PLAN OF CARE VITAL SIGNS MEDICATIONS Medication Instructions Dosage Frequency Start Date End Date Duration S tatus Hydrocodone-Acetaminophen 10-325 MG Orally 2-3 times p er day. must last 28 days. 1 tablet as needed Active Xanax 0.5 MG Orally Once a day-must last 28 days 1 tablet Active RESULTS No Results PROCEDURES No Known procedures IMMUNIZATIONS No Known Immunizations
--- OUTSIDE RECORDS SUMMARY | 2019-08-23 12:17 | XMS REPORT ---
Author Veronica Wallis [facility] eClinicalWorks Address Unknown Phone Unavailable Care Team Providers Care Automatic Casting Machine Operator Name Role Phone ANGE REYNOSO CP Unavailable [...] Date End Date Status Dosage Lyrica [facility] 62938226995 75 Orally Twice a day 1 capsule Results No Known Results Summary Purpose eClinicalWorks Submission
--- OUTSIDE RECORDS SUMMARY | 2019-08-23 12:17 | XMS REPORT ---
Author Veronica Wallis [facility] eClinicalWorks Address Unknown Phone Unavailable Care Team Providers Care Putty And Caulking Supervisor Name Role Phone RICOGhassan ANGE CP Unavailable Allergies, Adverse Reactions, Alerts Substance Reaction Event Type N.K.D.A. Info Not Available Non Drug Allergy Problems Problem Type Condition Code Onset Dates Condition Statu s Problem Chronic pain syndrome G89.4 Active Problem History of long-term use of multiple prescription drug s Z92.29 Active Problem Anxiety F41.9 Active Problem Thrush B37.0 Active Problem COPD exacerbation J44.1 Active Problem Chronic obstructive pulmonary disease, unspecified PARALEGALS D type J44.9 Active Problem Essential hypertension I10 Activ e Problem Bilateral low back pain without sciatica M54.5 Active Problem Long-term use of high-risk medication Z79.899 Active Problem Mixed hyperlipidemia E78.2 Active Assessment Thrush B37.0 Active Assessment Chronic obstructive pulmonary disease, unspecified PARALEGALS D type J44.9 Active Assessment Bilateral low back pain without sciatica M54.5 Active Assessment Chronic pain syndrome G89.4 Active Assessment Anxiety F41.9 Active Assessment Type 2 diabetes mellitus with complication E11.8 Active Assessment Essential hypertension I10 Activ e Problem Type 2 diabetes mellitus with complication E11.8 Active Medications Medication Code System Code Instructions Start Date End Date Status Dosage Metformin HCl [facility] 84777023081 500 Orally Once a day 1 tablet Xanax [facility] [address]-65 0.5 MG Orally Once a day 1 tablet Lyrica [facility] 81766986033 75 Orally Twice a day 1 capsule dicyclomine [facility] 0 20 mg January 12, 2014 1 tabl et by Oral route 4 times per day cyclobenzaprine [facility] [address]-58 10 mg May 04, 2014 1 tablet 1 time per day for 10 days PRN at for neck pain muscle spasm Ranitidine HCl [facility] 81875098061 150 TAKE ONE TABLET BY MOUTH TWICE A DAY ProAir HFA [facility] [address]-33 108 (90 Base) MCG/ACT Inhal ation every 4 hrs December 14, 2014 2 puffs as needed Dicyclomine HCl [facility] 71414941839 20 TAKE ONE TABLET BY MOUTH FOUR TIMES A DAY UNTIL GONE Lisinopril [facility] 67470909078 10 TAKE ONE TABLET BY MOUTH EVERY MORNING. MUST CALL FOR APPOINTMENT. Aspirin [facility] [address]-14 81 mg 1 tablet b y Oral route 1 time per day Incruse Ellipta [facility] [address]-52 62.5 MCG/INH Inhalation Once a day Feb 02, 2016 1 puff Reglan [facility] 90814199100 10 TAKE ONE TAB LET BY MOUTH THREE TIMES A DAY Omeprazole [facility] 88177100897 20 TAKE ONE CAPSULE BY MOUTH DAILY BEFORE A MEAL Diclofenac Sodium [facility] 00478424276 75 TA KE ONE TABLET BY MOUTH TWICE A DAY Colace [facility] [address]-42 100 mg Aug 03, 2014 1 ca psule by Oral route 2 times per day PRN Metoclopramide HCl [facility] 00136576828 10 T LYUDMILA ONE TABLET BY MOUTH THREE TIMES A DAY Hydrocodone-Acetaminophen [facility] [address]-15 10-325 MG Orally 2-3 times per day. must last 28 days. 1 tablet as n eeded Magic Mouthwash [facility] 0 30 ML each of 2% Viscous Lidocaine/Maalox/Benadryl Oral Swish and Spit 3 times a day prn Feb 02, 2016 Feb 09, 2016 5 ML Nystatin [facility] [address]-88 029538 UNIT/ML Mouth/Throat 4 times a day Feb 02, 2016 Feb 09, 2016 5 ml Zocor [facility] 28004324374 40 TAKE ONE TAB LET BY MOUTH DAILY BuPROPion HCl (SR) [facility] 80028545941 150 T LYUDMILA ONE TABLET BY MOUTH TWICE A DAY BuPROPion HCl (SR) [facility] 10510912045 150 T LYUDMILA ONE TABLET BY MOUTH TWICE A DAY Diclofenac Sodium [facility] 31804483257 75 TA KE ONE TABLET BY MOUTH TWICE A DAY Procedures Procedure Coding System Code Date GLYCATED HEMOGLOBIN TEST CPT-4 29919 Feb 02, 2016 [facility] NOBLL Feb 02, 2016 No Charge CPT-4 36670 Feb 02, 2016 Office Visit, Est Pt., Level 5 CPT-4 48312 A 2015 [facility] VISIT ESTABLISHED PATIENT CPT-4 G0467 A 2015 VENIPUNCT, ROUTINE* CPT-4 32245 Feb 02, 2016 Vital Signs Date/Time: Feb 02, 2016 Cardiac Monitoring Heart Rate 90 bpm Weight 230 lbs Height 68 in BMI 34.97 Index Blood Pressure Diastolic 82 mmHg Blood Pressure Systolic 130 mmHg Results No Known Results Summary Purpose eClinicalWorks Submission
--- OUTSIDE RECORDS SUMMARY | 2019-08-23 12:17 | XMS REPORT ---
Author Author Veronica REYNOSO [facility] Address [address] [place] [address] Care Team Providers Care Coal Handling Supervisor Name Role Phone LIZA REYNOSOWNYA Unavailable PROBLEMS Type Condition ICD9-CM Code LCM18-CE Code Onset Dates Condition S tatus SNOMED Code Problem Bilateral low back pain without sciatica M54.5 Active 319616196 Problem Chronic pain syndrome G89.4 Active 190571738 Problem Anxiety F41.9 Active 55654683 Problem History of long-term use of multiple prescription drugs Z92.29 Active 684520730 Problem Type 2 diabetes mellitus with complication E11.8 Active 63668128 Problem COPD with acute exacerbation J44.1 A ctive 612050444 Problem Thrush B37.0 Active 81719297 Problem Mixed hyperlipidemia E78.2 Active 100503503 Problem Essential hypertension I10 Active 31922820 Problem Chronic obstructive pulmonary disease, unspecified COPD ty pe J44.9 Active 79322036 Problem Long-term use of high-risk medication Z79.899 Active 668766967 ALLERGIES Unknown Allergies SOCIAL HISTORY No smoking Hx information available PLAN OF CARE VITAL SIGNS MEDICATIONS Medication Instructions Dosage Frequency Start Date End Date Duration S tatus Xanax 0.5 MG Orally Once a day as needed 1/2 tablet Active Hydrocodone-Acetaminophen 10-325 MG Take 1 tablet twice daily as needed for 1 week, then 1 tablet daily until out Active RESULTS No Results PROCEDURES No Known procedures IMMUNIZATIONS No Known Immunizations
--- OUTSIDE RECORDS SUMMARY | 2019-08-23 12:17 | XMS REPORT ---
Author Veronica Wallis Organization eClinicalWorks Address Unknown Phone Unavailable Care Team Providers Care Drier Take Off Tender Name Role Phone RICOGhassan ANGE CP Unavailable [...]
--- OUTSIDE RECORDS SUMMARY | 2019-08-23 12:17 | XMS REPORT ---
Author Author Veronica REYNOSO Organization eClinicalWorks Address Unknown Phone Unavailable Care Team Providers Care Salesperson Hearing Aids Name Role Phone ANGE REYNOSO CP Unavailable [...]
--- OUTSIDE RECORDS SUMMARY | 2019-08-23 12:17 | XMS REPORT ---
Author Author Veronica REYNOSO [facility] Address [address] [place] [address] Care Team Providers Care Divisional Human Resources Director Name Role Phone ANGELES ANGE Unavailable PROBLEMS Type Condition ICD9-CM Code [id number] Code Onset Dates Condition S tatus SNOMED Code Problem Chronic pain syndrome G89.4 Active 025286295 Problem History of long-term use of multiple prescription drugs Z92.29 Active 866220896 Problem Anxiety F41.9 Active 60373037 Problem Type 2 diabetes mellitus with complication E11.8 Active 10168253 Problem Chronic obstructive pulmonary disease, unspecified COPD ty pe J44.9 Active 67417762 Problem Thrush B37.0 Active 26776094 Problem Essential hypertension I10 Active 73154095 Problem Bilateral low back pain without sciatica M54.5 Active 789950581 Problem Long-term use of high-risk medication Z79.899 Active 064591798 Problem Mixed hyperlipidemia E78.2 Active 264840192 ALLERGIES Unknown Allergies SOCIAL HISTORY No smoking Hx information available PLAN OF CARE VITAL SIGNS MEDICATIONS Medication Instructions Dosage Frequency Start Date End Date Duration S tatus Lyrica 75 Orally Twice a day 1 capsule 12h A ctive RESULTS No Results PROCEDURES No Known procedures IMMUNIZATIONS No Known Immunizations
--- OUTSIDE RECORDS SUMMARY | 2019-08-23 12:17 | XMS REPORT ---
Author Author Veronica MONTOYA Organization [employer] Address Unknown Phone Unavailable Care Team Providers Care Brazer Assembler Name Role Phone SCOTT MONTOYA CP Unavailable Allergies No Known Allergies Problems [...] Start Date End Date Status Dosage Xanax [facility] [address]-32 0.5 MG Orally 2 times a day PRN mus t last 30 days. 1 tablet Hydrocodone-Acetaminophen [facility] [address]-20 10-325 MG Orally 2-3 times per day must last 30 days- appt needed before due for next refill. 1 tablet as needed Results No Known Results Summary Purpose [employer] Submission
--- OUTSIDE RECORDS SUMMARY | 2019-08-23 12:18 | XMS REPORT ---
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
--- OUTSIDE RECORDS SUMMARY | 2019-08-23 12:18 | XMS REPORT ---
Author Author RICOVeronica Ferrell ANGE Organization [facility] Address [address] [place] [address] Care Team Providers Care Senior Product Development Scientist Name Role Phone ANGE REYNOSO Unavailable PROBLEMS Type Condition ICD9-CM Code [id number] Code Onset Dates Condition S tatus SNOMED Code Problem Bilateral low back pain without sciatica M54.5 Active 296030499 Problem Chronic pain syndrome G89.4 Active 802139814 Problem Anxiety F41.9 Active 04267787 Problem History of long-term use of multiple prescription drugs Z92.29 Active 465754243 Problem Type 2 diabetes mellitus with complication E11.8 Active 41569958 Problem COPD with acute exacerbation J44.1 A ctive 012046943 Problem Thrush B37.0 Active 54534330 Problem Mixed hyperlipidemia E78.2 Active 293186289 Problem Essential hypertension I10 Active 36625016 Problem Chronic obstructive pulmonary disease, unspecified COPD ty pe J44.9 Active 29564229 Problem Long-term use of high-risk medication Z79.899 Active 954257443 ALLERGIES No Information ENCOUNTERS Encounter Location Date Diagnosis [facility] [address] [id number] [address] [place] [address] Nov, [facility] [address] [id number] [address] [place] [address] October, Scabies B86 [facility] [address] [id number] [address] [place] [address] October, Acute upper respiratory infe ction, unspecified J06.9 [facility] [address] [id number] [address] [place] [address] October, Dysuria R30.0 and Coughing R 05 [facility] [id number] [place] [address] Aug, [facility] [address] [id number] [address] [place] [address] Jun, [facility] [address] [id number] [address] [place] [address] Jun, [facility] [address] [id number] [address] [place] [address] Jun, [facility] [address] [id number] [address] [place] [address] May, [facility] [address] [id number] [address] [place] [address] May, [facility] [address] [facility] [id number] [address] [place] [address] May, [facility] [address] [facility] [id number] [address] [place] [address] Apr, Type 2 diabetes mellitus wit h complication E11.8 ; Chronic pain syndrome G89.4 ; Bilateral low back pain without sciatica M54.5 ; Essential hypertension I10 ; Anxiety F41.9 ; COPD with acute exacerbation J44.1 ; Pain of left hand M79.642 and Pain in right hand M79.641 [facility] [address] [id number] [address] [place] [address] Apr, [facility] [address] [id number] [address] [place] [address] Mar, [facility] [address] [id number] [address] [place] [address] Mar, [facility] [address] [id number] [address] [place] [address] Mar, [facility] [address] [facility] [id number] [address] [place] [address] Feb, [facility] [address] [facility] [id number] [address] [place] [address] Feb, [facility] [address] [id number] [address] [place] [address] Jan, Type 2 diabetes mellitus wit h complication E11.8 ; Chronic pain syndrome G89.4 ; Bilateral low back pain without sciatica M54.5 ; Essential hypertension I10 ; Anxiety F41.9 ; Chronic obstructive pulmonary disease, unspecified COPD type J44.9 and Thrush B37.0 [facility] [address] [id number] [address] [place] [address] Jan, [facility] [address] [id number] [address] [place] [address] Dec, [facility] [address] [id number] [address] [place] [address] Dec, [facility] [address] [id number] [address] [place] [address] Nov, [facility] [address] [id number] [address] [place] [address] Nov, [facility] [address] [id number] [address] [place] [address] Nov, [facility] [address] [facility] [id number] [address] [place] [address] Nov, Chest pain, unspecified type R07.9 and COPD exacerbation J44.1 [facility] [address] [id number] [address] [place] [address] October, [facility] [address] [facility] [id number] [address] [place] [address] Sep, [facility] [address] [id number] [address] [place] [address] Sep, Type 2 diabetes mellitus wit h complication E11.8 ; Chronic pain syndrome G89.4 ; Bilateral low back pain without sciatica M54.5 ; Essential hypertension I10 ; Anxiety F41.9 and COPD exacerbation J44.1 [facility] [address] [facility] [id number] [address] [place] [address] Aug, [facility] [address] [facility] [id number] [address] [place] [address] Aug, [facility] [address] [facility] [id number] [address] [place] [address] Aug, Chronic pain syndrome G89.4 [facility] [address] [facility] [id number] [address] [place] [address] Aug, [facility] [id number] [place] [address] Aug, [facility] [id number] [place] [address] Jul, Chronic pain syndrome G89.4 and Anxiety F41.9 [facility] [address] [id number] [address] [place] [address] Jul, [facility] [address] [address] Jun, Bilateral low back pain with out sciatica M54.5 ; Chronic pain syndrome G89.4 ; Anxiety F41.9 ; History of long-term use of multiple prescription drugs Z92.29 ; Type 2 diabetes mellitus with complication E11.8 ; Long-term use of high-risk medication Z79.899 ; Mixed hyperlipidemia E78.2 and Essential hypertension I10 [facility] [address] [id number] [address] [place] [address] Jun, [facility] [address] [id number] [address] [place] [address] Jun, [facility] [address] [facility] [id number] [address] [place] [address] May, [facility] [address] [id number] [address] [place] [address] Apr, [facility] [address] [id number] [address] [place] [address] Mar, [facility] [address] [id number] [address] [place] [address] Mar, Bilateral low back pain with out sciatica M54.5 ; History of long- term use of multiple prescription drugs Z92.29 ; Anxiety F41.9 ; Chronic pain syndrome G89.4 ; Type 2 diabetes mellitus with complication E11.8 ; Long-term use of high-risk medication Z79.899 and Mixed hyperlipidemia E78.2 [facility] [address] [id number] [address] [place] [address] Mar, [facility] [id number] [address] [place] [address] Mar, Chronic pain syndrome G89.4 [facility] [id number] [address] [place] [address] Mar, [facility] [address] [id number] [address] [place] [phone] Feb, [facility] [address] [id number] [address] [place] [address] Feb, [facility] [address] [id number] [address] [place] [address] Feb, [facility] [address] [id number] [address] [place] [address] Feb, [facility] [address] [id number] [address] [place] [address] Jan, [facility] [address] [facility] [id number] [address] [place] [address] Jan, [facility] [address] [id number] [address] [place] [address] Dec, [facility] [address] [id number] [address] [place] [address] Dec, Lumbago 724.2 ; Diabetes thony litus without mention of complication, type II or unspecified type, not stated as uncontrolled 250.00 ; Essential hypertension, benign 401.1 ; Anxiety state, unspecified 300.00 ; Chronic pain 338.29 ; COPD with acute exacerbation 491.21 ; Tobacco abuse 305.1 ; Depression 311 and Hyperlipidemia 272.4 [facility] [address] [id number] [address] [place] [address] Dec, [facility] [address] [facility] [id number] [address] [place] [address] Nov, Lumbago 724.2 ; Diabetes thony litus without mention of complication, type II or unspecified type, not stated as uncontrolled 250.00 ; Essential hypertension, benign 401.1 ; Anxiety state, unspecified 300.00 ; Chronic pain 338.29 ; COPD with acute exacerbation 491.21 ; Tobacco abuse 305.1 and Depression 311 [facility] [address] [id number] [address] [place] [address] Nov, [facility] [address] [id number] [address] [place] [address] Nov, [facility] [address] [id number] [address] [place] [address] Nov, [facility] [address] [id number] [address] [place] [address] October, [facility] [address] [id number] [address] [place] [address] October, [facility] [address] [id number] [address] [place] [address] October, [facility] [address] [id number] [address] [place] [address] October, [facility] [address] [id number] [address] [place] [address] October, [facility] [address] [id number] [address] [place] [address] Sep, [facility] [address] [facility] [id number] [address] [place] [address] Sep, [facility] [address] [id number] [address] [place] [address], [place] [address] 13 Sep, 2014 [facility] [address] [id number] [address] [place] [address], [place] [address] 23 Aug, 2014 [facility] [address] [id number] [address] [place] [address], [place] [address] 23 Aug, 2014 [facility] [address] [id number] [address] [place] [address], [place] [address] 20 Aug, 2014 [facility] [address] [id number] [address] [place] [address], [place] [address] 20 Aug, 2014 [facility] [address] [id number] [address] [place] [address], [place] [address] 19 Aug, 2014 [facility] [address] [id number] [address] [place] [address], [place] [address] 19 Aug, 2014 [facility] [address] [id number] [address] [place] [address], [place] [address] 16 Aug, 2014 [facility] [address] [id number] [address] [place] [address], [place] [address] 16 Aug, 2014 [facility] [address] [id number] [address] [place] [address], [place] [address] 16 Aug, 2014 [facility] [address] [id number] [address] [place] [address], [place] [address] 16 Aug, 2014 [facility] [address] [id number] [address] [place] [address], [place] [address] 13 Aug, 2014 [facility] [address] [id number] [address] [place] [address], [place] [address] 13 Aug, 2014 [facility] [address] [id number] [address] [place] [address], [place] [address] 24 Jul, 2014 [facility] [address] [id number] [address] [place] [address], [place] [address] 23 Jul, 2014 [facility] [address] [id number] [address] [place] [address], [place] [address] Jul, [facility] [address] [id number] [address] [place] [address], [place] [address] Jul, [facility] [address] [id number] [address] [place] [address], [place] [address] Jul, [facility] [address] [id number] [address] [place] [address], [place] [address] Jul, [facility] [address] [id number] [address] [place] [address], [place] [address] Jul, [facility] [address] [id number] [address] [place] [address], [place] [address] Jun, [facility] [address] [id number] [address] [place] [address], [place] [address] Jun, [facility] [address] [id number] [address] [place] [address], [place] [address] Jun, [facility] [address] [id number] [address] [place] [address], [place] [address] Jun, [facility] [address] [id number] [address] [place] [address], [place] [address] Jun, [facility] [address] [id number] [address] [place] [address], [place] [address] Jun, [facility] [address] [id number] [address] [place] [address], [place] [address] Jun, [facility] [address] [id number] [address] [place] [address], [place] [address] Jun, [facility] [address] [id number] [address] [place] [address], [place] [address] Jun, [facility] [address] [id number] [address] [place] [address], [place] [address] May, [facility] [address] [id number] [address] [place] [address], [place] [address] May, [facility] [address] [id number] [address] [place] [address], [place] [address] 30 May, 2014 [facility] [address] [id number] [address] [place] [address], [place] [address] 30 May, 2014 [facility] [address] [id number] [address] [place] [address], [place] [address] 17 May, 2014 [facility] [address] [id number] [address] [place] [address], [place] [address] 15 May, 2014 [facility] [address] [id number] [address] [place] [address], [place] [address] 15 May, 2014 [facility] [address] [id number] [address] [place] [address], [place] [address] 12 May, 2014 [facility] [address] [id number] [address] [place] [address], [place] [address] May, [facility] [address] [id number] [address] [place] [address], [place] [address] May, [facility] [address] [id number] [address] [place] [address], [place] [address] May, [facility] [address] [id number] [address] [place] [address], [place] [address] Apr, [facility] [address] [id number] [address] [place] [address], [place] [address] Apr, [facility] [address] [id number] [address] [place] [address], [place] [address] Apr, [facility] [address] [id number] [address] [place] [address], [place] [address] Apr, [facility] [address] [id number] [address] [place] [address], [place] [address] 29 Mar, 2014 [facility] [address] [id number] [address] [place] [address], [place] [address] 29 Mar, 2014 [facility] [address] [id number] [address] [place] [address], [place] [address] Mar, [facility] [address] [id number] [address] [place] [address], [place] [address] 2014 [facility] [address] [id number] [address] [place] [address], [place] [address] Mar, [facility] [address] [id number] [address] [place] [address], [place] [address] Mar, [facility] [address] [id number] [address] [place] [address], [place] [address] 29 Feb, 2014 [facility] [address] [id number] [address] [place] [address], [place] [address] 29 Feb, 2014 [facility] [address] [id number] [address] [place] [address], [place] [address] 17 Feb, 2014 [facility] [address] [id number] [address] [place] [address], [place] [address] 16 Feb, 2014 [facility] [address] [id number] [address] [place] [address], [place] [address] 16 Feb, 2014 [facility] [address] [id number] [address] [place] [address], [place] [address] Feb, [facility] [address] [id number] [address] [place] [address], [place] [address] 03 Feb, 2014 [facility] [address] [id number] [address] [place] [address], [place] [address] Jan, [facility] [address] [id number] [address] [place] [address], [place] [address] Jan, [facility] [address] [id number] [address] [place] [address], [place] [address] Jan, [facility] [address] [id number] [address] [place] [address], [place] [address] Jan, [facility] [address] [id number] [address] [place] [address], [place] [address] Dec, [facility] [address] [id number] [address] [place] [address] Dec, [facility] [address] [facility] [id number] [address] [place] [address] Dec, [facility] [address] [facility] [id number] [address] [place] [address] Dec, IMMUNIZATIONS No Known Immunizations SOCIAL HISTORY Never Assessed REASON FOR VISIT Refill Request PLAN OF CARE VITAL SIGNS MEDICATIONS Medication Instructions Dosage Frequency Start Date End Date Duration S emelia Clotrimazole 1 % 1 donald by Topical route 2 times per day Mar, Active RESULTS No Results PROCEDURES No Known [...]
--- OUTSIDE RECORDS SUMMARY | 2019-08-23 12:18 | XMS REPORT ---
Author Author Veronica ABBASI Organization [facility] Address [address] [place] [address] Care Team Providers Care Case Assistant Name Role Phone BRIT ABBASIISTIN Unavailable PROBLEMS Type Condition ICD9-CM Code [id number] Code Onset Dates Condition S tatus SNOMED Code Problem Bilateral low back pain without sciatica M54.5 Active 755121883 Problem Chronic pain syndrome G89.4 Active 662941003 Problem Anxiety F41.9 Active 48305196 Problem History of long-term use of multiple prescription drugs Z92.29 Active 898935541 Problem Type 2 diabetes mellitus with complication E11.8 Active 36963209 Problem COPD with acute exacerbation J44.1 A ctive 815180722 Problem Thrush B37.0 Active 62902224 Problem Mixed hyperlipidemia E78.2 Active 000943721 Problem Essential hypertension I10 Active 01493084 Problem Chronic obstructive pulmonary disease, unspecified COPD ty pe J44.9 Active 78989772 Problem Long-term use of high-risk medication Z79.899 Active 129841060 ALLERGIES No Known Allergies SOCIAL HISTORY Never [...] Start Date End Date Duration S tatus Omeprazole 20 TAKE ONE CAPSULE BY MOUTH [...] per day PRN 10 Jul, 2014 Active Xanax 0.5 MG Orally Once a [...] 1 tablet (150 mg) by oral ro [place] 2 times per day Mar, Active Metformin HCl 500 Orally Once a day 1 tablet 24h 30 Active ProAir HFA 108 (90 Base) MCG/ACT Inhalation every 4 hrs 2 puffs as needed 4h Nov, 30 days Active cyclobenzaprine 10 mg 1 tablet 1 time pe day for 10 days PRN at hs for neck pain muscle spasm Apr, Active Diclofenac Sodium 75 TAKE ONE TABLET BY MOUTH TWICE A DAY 30 Active ProAir HFA 108 (90 Base) MCG/ACT Inhalation every 4 hrs 2 puffs as needed 4h Sep, Active Incruse Ellipta 62.5 MCG/INH Inhalation Once a day 1 puff 24h 11 2015 Active Guaifenesin-DM 100-10 MG/5ML Orally every 4 hrs 10 ml as needed 4h October, October, 5 days Active Ranitidine HCl 150 TAKE ONE TABLET BY MOUTH TWICE A DAY 30 Active Lyrica 75 Orally Twice a day 1 capsule 12h A ctive Bentyl 20 TAKE ONE TABLET BY MOUTH FOUR TIMES A DAY UNTIL AL L ARE TAKEN 30 Active Azithromycin 250 MG Orally Once a day 2 tablets on the fi rst day, then 1 tablet daily for 4 days 24h October, October, 5 day(s) Active Dicyclomine HCl 20 TAKE ONE TABLET BY MOUTH FOUR TIMES A DAY UNTIL GONE 30 Active Lisinopril 10 orally daily 1 tablet 24h 90 Acti ve Zantac 150 TAKE ONE TABLET BY MOUTH TWICE A DAY 30 Active RESULTS No Results PROCEDURES Procedure Date Ordered Result Body [facility] ESTABLISHED PATIENT November 05, 2016 IMMUNIZATIONS No Known Immunizations MEDICAL (GENERAL) HISTORY Type Description Date Medical History hypertension Medical History type II diabetes AIC 5.4 on 3-15 Medical History hyperlipidemia Medical History anxiety Medical [...]
--- OUTSIDE RECORDS SUMMARY | 2019-08-23 12:18 | XMS REPORT | Continuity of Care Document ---
Author Author [facility] Organization [facility] Address Unknown Phone Unavailable Care Team Providers Care Machine Preservative Filler Name Role Phone NO, LOCAL PHYSICIAN PCP Unavailable Insurance Providers Payer Name Policy Number Subscriber Name Relationship Medicaid [place] [id number] Enrique Garcia 20 Self / Same As Patient Advance Directives Directive Response Recorded Date/Time Advance Directives No 06/20/14 4:44pm Resuscitation Status Full Code 06/20/14 4:44pm Problems Medical Problems Problem Onset Date Status Herpetic gingivostomatitis Unknown Active Medications Medication Dose Route Sig Days/Qty Instructions Order Date Disc ontinued Date Status Sumatriptan Succinate 03/11/09 1 08/21/13 Discontinued [Xanax] 03/11/09 Active Metformin HCl (Glucophage) 03/11 Active Lisinopril 10 Mg PO 08/14/12 Acti ve Hydrocodone Bit/Acetaminophen 1 Each PO Active Fluoxetine HCl 1 Each PO DAILY 08/14/12 Active Cyclobenzaprine HCl (Flexeril) 1 Each PO Q8HR PRN 20 Qty 08/14/12 Active Prednisone 40 Mg PO DAILY 5 Days 08/14/12 06/20/14 Dis continued Hydrocodone Bit/Acetaminophen 1 Each PO EVERY 6 HOURS PRN 12 Qty 08/14/12 06/20/14 Discontinued Acyclovir 400 Mg PO FOUR TIMES DAILY 7 Days 06/20/14 Active Social History Social History Problem Response Recorded Date/Sarath e Alcohol Use Denies Use 06/20/2014 4:44pm Recreational Drug Use No 06/20/2014 4:44pm Recent Foreign Travel No 06/20/2014 4:44pm Smoking Status Current Everyday Smoker 06/20/2014 4:44p m Query Response Start Date Stop Date Smoking Status Current Everyday Smoker Hospital Discharge Instructions No hospital discharge instructions. Plan of Care No plan of care. Functional Status No functional status results. Allergies, Adverse Reactions, Alerts Allergen Type Severity Reaction Status Last Updated No Known Drug Allergies Active 0 08/14/12 Immunizations No immunization records. Vital Signs Acute Vital Signs Vital Response Date/Time Temperature (Fahrenheit) 98.2 degrees F (97.6 - 99.5) Temperature (Calculated Celsius) 36.76206 degrees C (36.4 - 37.5) Temperature Source Temporal Pulse Rate (adult) 84 bpm (60 - 90) Respiratory Rate 18 bpm (12 - 24) O2 Sat by Pulse Oximetry 99 % (88 - 100) Blood Pressure 138/80 mm Hg Pain Pain Intensity 8 Height (Feet) 5 feet Height (Inches) 7 inches Height (Calculated Centimeters) 170.901965 cm Weight (Pounds) 196 pounds Weight (Calculated Kilograms) 88.971219 kilograms Calculated BMI 30.69 Results No known relevant diagnostic tests, laboratory data and/or discharge summary. Procedures No known history of procedures. Encounters Encounter Location Date/Time Departed Emergency Room [facility] 06/20 4:41pm Recent Diagnosis
--- OUTSIDE RECORDS SUMMARY | 2019-08-23 12:18 | XMS REPORT ---
Author Author Veronica REYNOSO Organization [employer] Address Unknown Phone Unavailable Care Team Providers Care Security Operations Specialist Name Role Phone ANGELES ANGE CP Unavailable [...] Start Date End Date Status Dosage Hydrocodone-Acetaminophen [facility] [address]-37 10-325 MG Orally 2-3 times per day must last 30 days 1 tablet as ne eded Xanax [facility] [address]-74 0.5 MG Orally 2 times a day PRN mus t last 30 days. 1 tablet Results No Known Results Summary Purpose [employer] Submission
--- OUTSIDE RECORDS SUMMARY | 2019-08-23 12:18 | XMS REPORT ---
Author Veronica Wallis [facility] [employer] Address Unknown Phone Unavailable Care Team Providers Care Agile Java Developer Name Role Phone ANGELES ANGE CP Unavailable [...] Active Problem Chronic obstructive pulmonary disease, unspecified DRUM TENDER D type J44.9 Active Problem Essential hypertension I10 Activ e Problem Bilateral low back pain without sciatica M54.5 Active Problem Long-term use of high-risk medication Z79.899 Active Problem Mixed hyperlipidemia E78.2 Active Medications Medication Code System Code Instructions Start Date End Date Status Dosage Hydrocodone-Acetaminophen [facility] [address]-83 10-325 MG Orally 2-3 times per day. must last 28 days. 1 tablet as n eeded Xanax [facility] [address]-38 0.5 MG Orally Once a day-must last 28 days 1 tablet Results No Known Results Summary Purpose [employer] Submission
--- OUTSIDE RECORDS SUMMARY | 2019-08-23 12:18 | XMS REPORT ---
Author Author Veronica REYNOSO [facility] Address [address] [place] [address] Care Team Providers Care Last Chalker Name Role Phone LIZA REYNOSOWNYA Unavailable PROBLEMS Type Condition ICD9-CM Code KHG33-GC Code Onset Dates Condition S tatus SNOMED Code Problem Bilateral low back pain without sciatica M54.5 Active 605595961 Problem Chronic pain syndrome G89.4 Active 066358822 Problem Anxiety F41.9 Active 40818531 Problem History of long-term use of multiple prescription drugs Z92.29 Active 889533380 Problem Type 2 diabetes mellitus with complication E11.8 Active 37068817 Problem COPD with acute exacerbation J44.1 A ctive 022773749 Problem Thrush B37.0 Active 10290381 Problem Mixed hyperlipidemia E78.2 Active 318335583 Problem Essential hypertension I10 Active 85828595 Problem Chronic obstructive pulmonary disease, unspecified COPD ty pe J44.9 Active 20582793 Problem Long-term use of high-risk medication Z79.899 Active 972895110 ALLERGIES Unknown Allergies SOCIAL HISTORY No smoking Hx information available PLAN OF CARE VITAL SIGNS MEDICATIONS Medication Instructions Dosage Frequency Start Date End Date Duration S tatus Lyrica 75 Orally Twice a day 1 capsule 12h A ctive RESULTS No Results PROCEDURES No Known procedures IMMUNIZATIONS No Known Immunizations
--- OUTSIDE RECORDS SUMMARY | 2019-08-23 12:18 | XMS REPORT ---
Author Author Veronica REYNOSO ANGE Organization [facility] Address [address] [place] [address] Care Team Providers Care Field Court Researcher Name Role Phone ANGE REYNOSO Unavailable PROBLEMS Type Condition ICD9-CM Code ETA81-MQ Code Onset Dates Condition S tatus SNOMED Code Problem Bilateral low back pain without sciatica M54.5 Active 198771014 Problem Chronic pain syndrome G89.4 Active 423743788 Problem Anxiety F41.9 Active 04604200 Problem History of long-term use of multiple prescription drugs Z92.29 Active 251610310 Problem Type 2 diabetes mellitus with complication E11.8 Active 11637661 Problem COPD with acute exacerbation J44.1 A ctive 817369599 Problem Thrush B37.0 Active 84732822 Problem Mixed hyperlipidemia E78.2 Active 597565423 Problem Essential hypertension I10 Active 12368454 Problem Chronic obstructive pulmonary disease, unspecified COPD ty pe J44.9 Active 75186168 Problem Long-term use of high-risk medication Z79.899 Active 581872203 ALLERGIES No Information SOCIAL HISTORY Never Assessed [...]
--- OUTSIDE RECORDS SUMMARY | 2019-08-23 12:18 | XMS REPORT | Continuity of Care Document ---
Author Author [facility] Organization [facility] Address Unknown Phone Unavailable Care Team Providers Care Social Director Name Role Phone [facility] PCP Insurance Providers Payer Name Policy Number Subscriber Name Relationship Medicaid [place] [id number] Enrique Garcia 20 Self / Same As Patient Advance Directives Directive Response Recorded Date/Time Advance Directives No 06/23/15 1:50pm Resuscitation Status Full Code 06/23/15 1:50pm Chief Complaint and Reason for Visit Chief Complaint Cough/Cold/Flu Symptoms Reason for Visit COPD (chronic obstructive pu lmonary disease) Pneumonia Problems Active Problems Medical Problem Onset Date Status COPD (chronic obstructive pulmonary disease) Unknown Acute Herpetic gingivostomatitis Unknown Acute Pneumonia Unknown Acute Medications Current Home Medications Medication Dose Units Route Directions Days/Qty Instructions Star t Date [Xanax] 03/11/09 Metformin Hcl (Glucophage) 500 Mg 03/11/09 Lisinopril 10 Mg 10 Mg Oral 3 Hydrocodone Bit/Acetaminophen 1 Each 1 Each Oral 08/14/12 Fluoxetine Hcl 20 Mg 1 Each Oral Daily Cyclobenzaprine Hcl (Flexeril) 10 Mg 1 Each Oral Q8hr Prn 20 08/14/12 Acyclovir 200 Mg 400 Mg Oral Four Times Daily 7 Days 06/20/14 Levofloxacin 750 Mg 750 Mg Oral Daily 5 Days 05/26 07/08 Prednisone 20 Mg 40 Mg Oral Daily 8 5 Albuterol Sulfate 8.5 Gm 8.5 Gm Inhalation Every 4HRS 1 06/23/15 Past Home Medications Medication Directions Ordered Status Sumatriptan Succinate 25 Mg Tablet, 03/11/09 Discontinued Prednisone 20 Mg Tab, 40 Mg Oral Daily 08/14/12 Discontinued Hydrocodone Bit/Acetaminophen 1 Each Tablet, 1 Each Or al Every 6 Hours as needed 08/14/12 Discontinued Social History Social History Problem Response Recorded Date/Sarath e Alcohol Use Denies Use 06/23/2015 1:50pm Recreational Drug Use No 06/23/2015 1:50pm Recent Foreign Travel No 06/23/2015 1:45pm Recent Infectious Disease Exposure No 06/23 1:45pm Hospitalization with Isolation Denies 5 1:45pm Smoking Status Current Everyday Smoker 06/23/2015 1:50p m Query Response Start Date Stop Date Smoking Status Current Everyday Smoker Hospital Discharge Instructions No hospital discharge instructions. Plan of Care Discharge Date 06/23/15 4:15pm Disposition 01 HOME, SELF-CARE Condition at Discharge Stable Instructions/Education Provided Bacterial Pneumonia (E D) Prescriptions See Medication Section Referrals [facility] - Primary Care Physician Additional Instructions/Education 1. Antibiotics as d irected 2. Return to ER for any concerns 3. Follow-up with your doctor next week for recheck All discharge instructions reviewed with patient and/or family. Voiced understanding. Functional Status No functional status results. Allergies, Adverse Reactions, Alerts No known allergies. Immunizations No immunization records. Vital Signs Acute Vital Signs Vital Response Date/Time Temperature (Fahrenheit) 97.0 degrees F (97.6 - 99.5) 2014 4:15pm Temperature (Calculated Celsius) 36.09543 degrees C (36.4 - 37.5) 06/23/2015 4:15pm Pulse Rate (adult) 84 bpm (60 - 90) 06/23/2015 4:15pm Respiratory Rate 18 bpm (12 - 24) 06/23/2015 4:15pm O2 Sat by Pulse Oximetry 98 % (88 - 100) 06/23/2015 4:15 pm Blood Pressure 132/80 mm Hg 06/23/2015 4:15pm Blood Pressure Mean 99 mm Hg 06/23/2015 1:45pm Pain Pain Intensity 0 06/23/2015 4:15pm Height (Feet) 5 feet 06/23/2015 1:45pm Height (Inches) 7 inches 06/23/2015 1:45pm Height (Calculated Centimeters) 170.222077 cm 06/23/20 15 1:45pm Weight (Pounds) 209 pounds 06/23/2015 1:45pm Weight (Calculated Kilograms) 94.198837 kilograms 06/23/2015 1:45pm Calculated BMI 32.73 06/23/2015 1:45pm Results No known relevant diagnostic tests, laboratory data and/or discharge summary. Procedures No known history of procedures. Encounters Encounter Location Arrival/Admit Date Discharge/Depart Date Attending Provider Registered Emergency Room [facility] 06/23/15 1 :39pm PHILIP GILMORE APRN Recent Diagnosis
--- OUTSIDE RECORDS SUMMARY | 2019-08-23 12:18 | XMS REPORT | Continuity of Care Document ---
Author Author [facility] Organization [facility] Address Unknown Phone Unavailable Care Team Providers Care Civil Engineer Land Development Name Role Phone [facility] PCP [phone] Insurance Providers Payer Name Policy Number Subscriber Name Relationship [employer] [id number] JoseEnrique 20 Self / Same A s Patient Medicaid [place] [id number] JoseEnrique Rachell Cr Self / Same As Patient Advance Directives Directive Response Recorded Date/Time Advance Directives No 06/23/15 1:50pm Chief Complaint and Reason for Visit Chief Complaint Back Problems Reason for Visit Acute exacerbation of chroni c low back pain Problems Active Problems Medical Problem Onset Date Status Acute exacerbation of chronic low back pain Unknown Acute COPD (chronic obstructive pulmonary disease) Unknown Acute Herpetic gingivostomatitis Unknown Acute Pneumonia Unknown Acute Medications Current Home Medications Medication Dose Units Route Directions Days/Qty Instructions Star t Date Metformin Hcl (Glucophage) 500 Mg 500 Mg Oral Daily 03/11/09 Lisinopril 10 Mg 10 Mg Oral Daily 3 Fluoxetine Hcl 20 Mg 1 Each Oral Daily Albuterol Sulfate 8.5 Gm 8.5 Gm Inhalation Every 4HRS 1 06/23/15 Hydrocodone/Acetaminophen 1 Each 1 Tab Oral Every 8HRS as n eeded for Pain 75 06/13/16 Diclofenac Sodium 75 Mg 75 Mg Oral Twice A Day 60 06/13/16 Ranitidine Hcl 150 Mg 150 Mg Oral Twice A Day 60 06/13/16 Bupropion Hcl 150 Mg 150 Mg Oral Twice A Day 60 06/13/16 Pregabalin 75 Mg 75 Mg Oral Twice A Day 56 Simvastatin 40 Mg 40 Mg Oral Daily 30 Alprazolam 0.5 Mg 0.5 Mg Oral Daily 28 Metoclopramide Hcl 10 Mg 10 Mg Oral Before Meals 60 06/13/16 Omeprazole 20 Mg 20 Mg Oral Daily 30 6 Dicyclomine Hcl 20 Mg 20 Mg Oral Four Times Daily 120 06/13/16 Prednisone 20 Mg 20 Mg Oral Twice A Day 10 Tramadol Hcl 50 Mg 1-2 Mg Oral Every 4HRS as needed for Pain 20 06/13/16 Past Home Medications Medication Directions Ordered Status Sumatriptan Succinate 25 Mg Tablet, 03/11/09 Discontinued [Xanax] , 03/11/09 Discontinued Hydrocodone Bit/Acetaminophen 1 Each Tablet, 1 Each Oral 08/14/12 Discontinued Cyclobenzaprine Hcl (Flexeril) 10 Mg Tablet, 1 Each Oral Q8hr Pr n 08/14/12 Discontinued Prednisone 20 Mg Tab, 40 Mg Oral Daily 08/14/12 Discontinued Hydrocodone Bit/Acetaminophen 1 Each Tablet, 1 Each Or al Every 6 Hours as needed 08/14/12 Discontinued Acyclovir 200 Mg Capsule, 400 Mg Oral Four Times Daily 06/20/14 Discontinued Levofloxacin 750 Mg Tablet, 750 Mg Oral Daily 06/23/15 Discontinued Prednisone 20 Mg Tab, 40 Mg Oral Daily 06/23/15 Discontinued Social History Social History Problem Response Recorded Date/Sarath e Alcohol Use Denies Use 06/23/2015 1:50pm Recreational Drug Use No 06/23/2015 1:50pm Recent Foreign Travel No 06/13/2016 4:31pm Recent Infectious Disease Exposure No 06/13 4:31pm Smoking Status Former Smoker 06/13/2016 6:36pm Query Response Start Date Stop Date Smoking Status Former Smoker Hospital Discharge Instructions No hospital discharge instructions. Plan of Care Discharge Date 06/13/16 7:09pm Disposition 01 HOME, SELF-CARE Condition at Discharge Stable Instructions/Education Provided Low Back Pain (DC) Prescriptions See Medication Section Referrals [facility] - Primary Care Physician Functional Status No functional status results. Allergies, Adverse Reactions, Alerts No known allergies. Immunizations No immunization records. Vital Signs Acute Vital Signs Vital Response Date/Time Temperature (Fahrenheit) 97.1 degrees F (97.6 - 99.5) 2015 6:39pm Temperature (Calculated Celsius) 36.41885 degrees C (36.4 - 37.5) 06/13/2016 6:39pm Temperature Source Tympanic 06/13/2016 6:39pm Pulse Rate (adult) 90 bpm (60 - 90) 06/13/2016 4:31pm Respiratory Rate 20 bpm (12 - 24) 06/13/2016 4:31pm Blood Pressure 95/76 mm Hg 06/13/2016 4:31pm Blood Pressure Mean 82 mm Hg 06/13/2016 4:31pm Pain Numeric Pain Scale 8 06/13/2016 6:39pm Pain Numeric Pain Scale 8 06/13/2016 6:39pm Height (Feet) 5 feet 06/13/2016 4:31pm Height (Inches) 9 inches 06/13/2016 4:31pm Height (Calculated Centimeters) 175.787428 cm 06/13/20 16 4:31pm Weight (Pounds) 200 pounds 06/13/2016 4:31pm Weight (Calculated Kilograms) 90.450622 kilograms 06/13/2016 4:31pm Capillary Refill Capillary Refill Less Than 3 Seconds 06/13/2016 4:31pm Height 5 ft 9 in Weight 200 lb Body Mass Index 29.5 kg/m^2 Results No known relevant diagnostic tests, laboratory data and/or discharge summary. Procedures No known history of procedures. Encounters Encounter Location Arrival/Admit Date Discharge/Depart Date Attending Provider Registered Emergency Room [facility] 06/13/16 3 :34pm GINI MULTANI MD Recent Diagnosis
--- OUTSIDE RECORDS SUMMARY | 2019-08-23 12:18 | XMS REPORT ---
Author Author Veronica REYNOSO [facility] [employer] Address Unknown Phone Unavailable Care Team Providers Care Sales Driver Name Role Phone ANGE REYNOSO CP Unavailable [...] Active Problem Chronic obstructive pulmonary disease, unspecified NURSING INFORMATION SYSTEMS COORDINATOR D type J44.9 Active Problem Essential hypertension I10 Activ e Problem Bilateral low back pain without sciatica M54.5 Active Problem Long-term use of high-risk medication Z79.899 Active Problem Mixed hyperlipidemia E78.2 Active Medications No Known Medications Results No Known Results Summary Purpose [employer] Submission
--- OUTSIDE RECORDS SUMMARY | 2019-08-23 12:18 | XMS REPORT ---
Author Veronica Wallis Organization [employer] Address Unknown Phone Unavailable Care Team Providers Care Canceling Machine Operator Name Role Phone RICOGhassan ANGE CP Unavailable [...] Instructions Start Date End Date Status Dosage Fluoxetine NDC 0 20 mg Once a day elias e 1 capsule (20 mg) by oral route once daily Dicyclomine HCl [facility] [id number] 20 TAKE ONE TABLET BY MOUTH FOUR TIMES A DAY Results No Known Results Summary Purpose [employer]ClinicalWorks Submission
--- OUTSIDE RECORDS SUMMARY | 2019-08-23 12:18 | XMS REPORT ---
Author Veronica Wallis [facility] [employer] Address Unknown Phone Unavailable Care Team Providers Care City Carrier Assistant Name Role Phone RICOGhassan ANGE CP Unavailable Allergies, Adverse Reactions, Alerts Substance Reaction Event Type N.K.D.A. Info Not Available Non Drug Allergy Problems Problem Type Condition Code Onset Dates Condition Statu s Assessment Type 2 diabetes mellitus with complication E11.8 Active Problem Chronic pain syndrome G89.4 Active [...] back pain without sciatica M54.5 Active Assessment Anxiety F41.9 Active Assessment Essential hypertension I10 Activ e Assessment Bilateral low back pain without sciatica M54.5 Active Assessment COPD exacerbation J44.1 Active Assessment Chronic pain syndrome G89.4 Active Medications Medication Code System Code Instructions Start Date End Date Status Dosage cyclobenzaprine [facility] [address]-07 10 mg May 04, 2014 1 tablet 1 time per day for 10 days PRN at for neck pain muscle spasm Lyrica [facility] 86869613914 75 Orally Twice a day 1 capsule Diclofenac Sodium [facility] 38591110774 75 TA KE ONE TABLET BY MOUTH TWICE A DAY Metoclopramide HCl [facility] 49681035236 10 T LYUDMILA ONE TABLET BY MOUTH THREE TIMES A DAY Omeprazole [facility] 52695740129 20 TAKE ONE CAPSULE BY MOUTH DAILY BEFORE A MEAL PredniSONE [facility] [address]-14 20 MG Orally twice a day SeptemberOctober 10, 2015 1 tablet Metformin HCl [facility] 45211928575 500 Orally Once a day 1 tab dicyclomine ND 0 20 mg January 12, 2014 1 tabl et by Oral route 4 times per day ProAir HFA [facility] [address]-28 108 (90 Base) MCG/ACT Inhal ation every 4 hrs October 05, 2015 2 puffs as needed Hydrocodone-Acetaminophen [facility] [address]-80 10-325 MG Orally 2-3 times per day. must last 28 days. 1 tablet as n eeded Lisinopril [facility] 39800397927 10 TAKE ONE TABLET BY MOUTH EVERY MORNING . MUST CALL FOR APPOINTMENT Colace [facility] [address]-03 100 mg Aug 03, 2014 1 ca psule by Oral route 2 times per day PRN BuPROPion HCl (SR) [facility] 94805527576 150 T LYUDMILA ONE TABLET BY MOUTH TWICE A DAY Xanax [facility] [address]-13 0.5 MG Orally Once a day 1 tablet ProAir HFA [facility] [address]-31 108 (90 Base) MCG/ACT Inhal ation every 4 hrs December 14, 2014 2 puffs as needed Zocor [facility] 96130184170 40 TAKE ONE TAB LET BY MOUTH DAILY Aspirin [facility] [address]-08 81 mg 1 tablet b y Oral route 1 time per day Procedures Procedure Coding System Code Date [facility] VISIT ESTABLISHED PATIENT CPT-4 G0467 A pri 2015 Office Visit, Est Pt., Level 4 CPT-4 70192 A pri 2015 GLYCATED HEMOGLOBIN TEST CPT-4 62902 September 222015 THER/PROPH/DIAG INJ, SC/IM CPT-4 72672 October 05, 2015 TORADOL (IM) 15 MG/ML (UP TO 15 MG) CPT-4 J1885 October 05, 2015 Vital Signs Date/Time: October 05, 2015 Temperature 97.5 F Weight 224.3 lbs Height 68 in BMI 34.10 Index Blood Pressure Diastolic 80 mmHg Blood Pressure Systolic 124 mmHg Cardiac Monitoring Heart Rate 82 bpm Results Name Result Date Reference Range Unit Abnormali ty Flag A1C (IN HOUSE) ----A1C IN HOUSE 5.6 20151005 4.3 - 5.6 % ----Previous A1c 5.5 20151005 ----Lot [id number] ----Exp date 20151005 Summary Purpose eClinicalWorks Submission
--- NOTE | 2019-08-23 21:00 | NUR ---
THIS RN WASTED 220ML IV FENTANYL FROM CAD PUMP WITH AMADOU ARAUJO RN.
[2019-08-23] MEDS: METHOCARBAMOL 750 MG (ROBAXIN) TAB PO PRN (21:25)
[2019-08-23] MEDS: KETOROLAC 15 MG/ML VIAL IVP PRN (21:26)
[2019-08-24] VITALS (7 sets, daily range): BP systolic 96–114; BP diastolic 59–69
[2019-08-24] MEDS: RT-ALBUTEROL/IPRATROPIUM 3 ML (DUONEB) VIAL INH SCH ×4 (02:48→14:51)
[2019-08-24 05:25] LABS: BASOPHILS % (AUTO) 1 % (0-10); EOSINOPHILS # (AUTO) 0.3 10^3/uL (0.0-0.3); EOSINOPHILS % (AUTO) 4 % (0-10); HEMATOCRIT 26 % (35-52); HEMOGLOBIN 8.6 G/DL (11.5-16.0); LYMPHOCYTES # (AUTO) 1.8 X 10^3 (1.0-4.0); LYMPHOCYTES % (AUTO) 32 % (12-44); MEAN CORPUSCULAR HEMOGLOBIN 33 PG (25-34); MEAN CORPUSCULAR HGB CONC 33 G/DL (32-36); MEAN CORPUSCULAR VOLUME 99 FL (80-99); MEAN PLATELET VOLUME 9.1 FL (7.4-10.4); MONOCYTES # (AUTO) 0.3 X 10^3 (0.0-1.0); MONOCYTES % (AUTO) 6 % (0-12); NEUTROPHILS # (AUTO) 3.2 X 10^3 (1.8-7.8); NEUTROPHILS % (AUTO) 57 % (42-75); PLATELET COUNT 183 10^3/uL (130-400); RED CELL DISTRIBUTION WIDTH 13.8 % (10.0-14.5); WHITE BLOOD COUNT 5.7 10^3/uL (4.3-11.0)
[2019-08-24] MEDS: inSUlin ASPART (NovoLOG) 1 UNIT/0.01 ML (CHARGE PER UNIT) SC SCH ×4 (05:36→21:39)
[2019-08-24 05:53] LABS: BUN/CREATININE RATIO 14; CALCIUM 7.9 MG/DL (8.5-10.1); CARBON DIOXIDE 28 MMOL/L (21-32); CHLORIDE 100 MMOL/L (98-107); GFR ESTIMATED > 60; GLUCOSE 110 MG/DL (70-105); MAGNESIUM 1.9 MG/DL (1.6-2.4); PHOSPHORUS 4.1 MG/DL (2.3-4.7); POTASSIUM 3.2 MMOL/L (3.6-5.0); SODIUM 138 MMOL/L (135-145)
[2019-08-24] MEDS: MAGNESIUM 1 GM/100 ML IVPB 100 ML IV SCH (06:02)
[2019-08-24] MEDS: KCL 20 MEQ TAB (K-DUR) PO SCH ×3 (06:03→08:53)
[2019-08-24] MEDS: POTASSIUM CL 10MEQ/50ML IVPB 50 ML IV SCH (06:04)
[2019-08-24] MEDS: PIPERACILLIN/TAZO 4.5 GM/NS 100 ML IV SCH ×2 (06:21)
[2019-08-24] MEDS: FUROSEMIDE 40 MG/4 ML INJ (LASIX) IVP SCH ×2 (08:53→19:56)
[2019-08-24] MEDS: ENOXAPARIN 40 MG/0.4 ML (LOVENOX) SYR SQ SCH (08:53)
[2019-08-24] MEDS: PANTOPRAZOLE 40 MG (PROTONIX) VIAL IV SCH ×2 (08:53→19:56)
[2019-08-24] MEDS: meTOprolol TARTRATE 50 MG (LOPRESSOR) TAB PO SCH ×2 (08:53→19:56)
[2019-08-24] MEDS: lisINopril 20 MG (PRINIVIL) TABLET PO SCH (08:53)
[2019-08-24] MEDS: OXYBUTYNIN (DITROPAN) 5 MG TAB PO SCH ×2 (08:53→19:56)
[2019-08-24] MEDS: SIMvastatin 40 MG (ZOCOR) TAB PO SCH (08:53)
[2019-08-24] MEDS: MICONAZOLE 2% POWDER (DESENEX AF) 90 GM TOP SCH ×2 (08:54→19:57)
--- NOTE | 2019-08-24 11:36 | Physical Therapy Daily Note ---
PT Daily Note-Current Subjective Patient agreeable to therapy at this time. Pain Numeric Pain Scale: 10-Worst Possible Pain Location Body Site: Sacrum Appearance Patient in bed with call light and bedside table within reach. Family present. Positioned on side to provide pressure relief. Mental Status Patient Orientation: Person Attachments: Oxygen, Jimenez Catheter, IV Transfers SCALE: Activities may be completed with or without assistive devices. 2-Dbuvebndci-dighssv completes the activity by him/herself with no assistance from a helper. 5-Set-up or Clean-up Assistance-helper sets up or cleans up; patient completes activity. [place] assists only prior to or following the activity. 4-Supervision or Touching Assistance-helper provides verbal cues and/or touching/steadying and/or contact guard assistance as patient completes activity. Assistance may be provided throughout the activity or intermittently. 3-Partial/Moderate Assistance-helper does LESS THAN HALF the effort. [place] lifts, holds or supports trunk or limbs, but provides less than half the effort. 2-Substantial/Maximal Assistance-helper does MORE THAN HALF the effort. [place] lifts or holds trunk or limbs and provides more than half the effort. 2-Wnlguxxlg-cmsqjk does ALL the effort. Patient does none of the effort to complete the activity. Or, the assistance of 2 or more helpers is required for the patient to complete the activity. If activity was not attempted, code reason: 7-Patient Refused. 9-Not Applicable-not attempted and the patient did not perform the activity before the current illness, exacerbation or injury. 10-Not Attempted due to Environmental Limitations-(lack of equipment, weather restraints, etc.). 88-Not Attempted due to Medical Conditions or Safety Concerns. Roll Left & Right (QC): 3 Weight Bearing Right Lower Extremity: Right Weight Bearing/Tolerated Left Lower Extremity: Left Weight Bearing/Tolerated Gait Training Does the Patient Walk?: No and Walking Goal NOT indicated Exercises Supine Ex: Ankle pumps, Quad Set, Heel Slides, Short Arc Quads, Straight leg raise Supine Reps: 10 (BLE) Treatments BLE exercises, bed mobility Assessment Current Status: Fair Progress Patient was able to perform most exercises actively without assistance. She needed assistance with SLR. Positioned patient in side-lying to provided pressure relief. Patient was able to assist in rolling side to side to get positioned better but was not able to perform IND. PT Prison Goals Split Leather Department Supervisor Goals PT Prison Goals Time Frame: Sep 04, 2019 Roll Left & Right (QC): 3 Sit to Lying (QC): 3 Lying-Sitting on Side/Bed(QC): 3 Sit to Stand (QC): 3 PT Plan Problem List Problem List: Activity Tolerance, Functional Strength, Safety, Balance, Gait, Transfer, Bed Mobility, ROM Treatment/Plan Treatment Plan: Continue Plan of Care Treatment Plan: Bed Mobility, Education, Functional Activity Yong, Functional Strength, Gait, Safety, Therapeutic Exercise, Transfers Treatment Duration: Sep 04, 2019 Frequency: 5 times per week Estimated Hrs Per Day: .25 hour per day Patient and/or Family Agrees t: Yes Safety Risks/Education Patient Education: Correct Positioning Teaching Recipient: Patient, Family Teaching Methods: Demonstration, Discussion Response to Teaching: Reinforcement Needed Time/GCodes Time In: 1025 Time Out: 1041 Total Billed Treatment Time: 16 Total Billed Treatment 1 visit EX 16 ALEXANDRA ADAME PT Aug 24, 2019 11:35
--- NOTE | 2019-08-24 11:49 | NUR ---
Cm/SS follow up discharge planning. CM/SS discussed discharge plans with the patient and the family that was present in the room. The patient was able to answer questions appropriately. CM/SS explained the different options available for skilled therapies. A patient preference form was provided. The patient stated that she would like this SS to send a referral to [facility]. The patients family in the room are agreeable with plan at this time. CM/SS called Gavi from [facility] and sent a referral via fax. CM/SS will inform the patients daughter Cecilia ( ) per patient and family request. They state she is the one who is setting everything up. CM/SS will continue to follow for discharge planning.
[2019-08-24] MEDS ORDERED: LISI-552 PO (13:15)
[2019-08-24] MEDS ORDERED: FURO-124 PO (13:15)
[2019-08-24] MEDS ORDERED: MICO90PO TOP (13:15)
[2019-08-24] MEDS ORDERED: METO50TA15 PO (13:15)
[2019-08-24] MEDS ORDERED: LOPE2CAP PO (13:15)
[2019-08-24] MEDS ORDERED: DOCU-238 PO (13:15)
[2019-08-24] MEDS ORDERED: ACHYD1T PO (13:16)
--- NOTE | 2019-08-24 14:27 | NUR ---
RD ASSESSMENT PMHx: DM; COPD PT INTERACTION: Pt was awake and pleasant during nutrition assessment for LOS. Pt states current appetite is "getting better" as it had been poor for the 6-7 days. Note avg PO intake is 50-75% x3d, per chart review. Pt states following a regular diet at home and has no issues with chewing/swallowing food. Pt states some recent issues with n/v. Note 1 episode of emesis on 08/21, per chart review. Pt states episodes of diarrhea x2w. Note last BM was 08/22 and pt not currently on bowel regimen per chart review. Pt states recent wt gain, but unsure of amount/timeframe. Note unable to determine recent wt hx, per chart review. Pt states current DM management is pretty good, and that her average blood glucose levels are around 148. Note unable to determine recent HbA1c, per chart review. ABNORMAL NUTRITION-RELATED LAB VALUES LOW: K 3.2; Ca 7.9 HIGH: glu 110 Est. kcal needs: 4794-1448 kcal | 15-18 kcal/kg Est. Pro needs: 90-112 g Pro | 0.8-1.0 g Pro/kg PES STATEMENT: Inadequate oral intake (NI-2.1) related to loss of appetite | nausea | vomiting | diarrhea as evidenced by pt interview | avg PO intake 50-75% x3d INTERVENTION: Continue with current diet order of DYS2 Mechanically Altered diet. Pt may benefit from nutrition supplementation if PO intake declines. Will continue to follow and reassess as pt needs, intake and status change. MONITOR/EVALUATE: PO Intake; Plan of Care; Hydration Status; Weight Status; Lab Values Joie Orozco, , RD, LD
[2019-08-24] MEDS ORDERED: KETOROLAC 30 MG/ML VIAL ONE (14:38)
[2019-08-24] MEDS ORDERED: ACETAMINOPHEN 325 MG TABLET PO PRN (14:45)
[2019-08-24] MEDS: guaiFENesin/DM (ROBITUSSIN DM) 10 ML UDC PO PRN (14:47)
--- NOTE | 2019-08-24 15:04 | NUR ---
CM/SS follow up. CM/SS sent referral to [facility] and they have declined patient. The patient and her sister Jazmyne looked back through the Patient Preference Form and decided on [facility]. Waiting on acceptance. CM/SS spoke with Cecilia who is agreeable to plan and states she will be in town to visit her . Addendum: 08/24/19 at 1621 by ANALILIA LINDSAY [facility] called and accepted patient. business supervisor time is planned for tomorrow at 1 p.m. A care assessment will be completed and finalized discharge orders will be sent.
--- NOTE | 2019-08-24 16:24 | Progress Note - Hospitalist ---
Subjective HPI/CC On Admission Date Seen by Provider: Aug 24, 2019 Time Seen by Provider: 10:25 Subjective/Events-last exam she reports feeling uncomfortable in bed. She would like to be moved. She has been working with physical therapy. She denies any fevers or chills. She reports cough. She denies any shortness of breath. She denies any chest pain. Objective Exam Vital Signs Vital Signs Date Time Temp Pulse Resp B/P (MAP) Pulse Ox O2 Delivery O2 Flow Rate FiO2 08/24/19 14:51 93 Nasal Cannula 2.00 08/24/19 12:00 36.2 66 20 96/63 (74) 08/24/19 10:16 28 Capillary Refill : Less Than 3 Seconds General Appearance: No Apparent Distress, Obese Respiratory: Lungs Clear, Normal Breath Sounds, No Respiratory Distress Cardiovascular: Regular Rate, Rhythm, No Edema, No Murmur Gastrointestinal: Normal Bowel Sounds, Non Tender, Soft Extremity: Normal Inspection, Non Tender, No Pedal Edema Neurologic/Psychiatric: Alert, Oriented x3, Normal Mood/Affect, Motor Weakness Skin: Normal Color, Warm/Dry Results/Procedures Lab Laboratory Tests 08/24/19 05:05 Patient resulted labs reviewed. Imaging: Reviewed Imaging Report Assessment/Plan Assessment and Plan Assess & Plan/Chief Complaint Critical illness myopathy PT/OT planning for discharge to the [facility] tomorrow Septic shock, resolved completing course of Zosyn and Eraxis today COPD s/p endotracheal intubation Acute hypoxic respiratory failure, resolved pulmonology following continue Lasix Anemia hemoglobin 8.6, stable Continue to monitor type II diabetes mellitus Continue sliding scale insulin Anxiety and Depression continue current regimen Chronic Pain pain regimen in place Hypokalemia continue to monitor and replace as needed Dysphagia speech therapy following DVT prophylaxis: Lovenox Altered mental status, resolved Diagnosis/Problems Diagnosis/Problems (1) Critical illness myopathy Status: Acute (2) Hypokalemia Status: Acute (3) Septic shock Status: Resolved Resolution Date/Time: 08/24/19 @ 16:26 (4) Respiratory failure with hypoxia Status: Resolved Qualifiers: Chronicity: acute Qualified Codes: J96.01 - Acute respiratory failure with hypoxia Resolution Date/Time: 08/24/19 @ 16:26 (5) Endotracheally intubated Status: Resolved Resolution Date/Time: 08/24/19 @ 16:26 Clinical Quality Measures DVT/VTE Risk/Contraindication: Risk Factor Score Per Nursin RFS Level Per Nursing on Admit: 4+=Very High CEDRICK SALVADOR MD Aug 24, 2019 16:24
--- NOTE | 2019-08-24 16:41 | Pulmonary Progress Note ---
Subjective Time Seen by a Provider: 13:21 Subjective/Events-last exam Pt is doing much better. Sepsis Event Evaluation Height, Weight, BMI Height: '" Weight: lbs. oz. kg; 34.00 BMI Method: Exam Exam Vital Signs Date Time Temp Pulse Resp B/P (MAP) Pulse Ox O2 Delivery O2 Flow Rate FiO2 08/24/19 14:51 93 Nasal Cannula 2.00 08/24/19 12:00 36.2 66 20 96/63 (74) 98 Nasal Cannula 2.00 08/24/19 11:18 93 Nasal Cannula 2.00 08/24/19 10:16 36.6 62 93 28 08/24/19 09:00 Room Air 08/24/19 08:00 36.4 71 20 101/66 (78) 97 Nasal Cannula 2.00 08/24/19 07:18 93 Nasal Cannula 2.00 08/24/19 04:00 36.6 62 18 96/62 (73) 96 Nasal Cannula 2.00 08/24/19 02:48 94 Nasal Cannula 2.00 08/24/19 00:33 95 Nasal Cannula 2.00 08/24/19 00:20 37.6 70 20 106/69 (81) 89 Room Air 08/23/19 21:30 85 Room Air 08/23/19 21:28 37.2 76 15 121/58 (79) 90 Room Air 08/23/19 21:00 Room Air 08/23/19 20:00 37.2 76 15 121/58 (79) 90 Room Air 08/23/19 18:33 90 Room Air I & O 08/24/19 07:00 Intake Total 2420 ml Output Total 3705 ml Balance -1285 ml Height & Weight Height: '" Weight: lbs. oz. kg; 34.00 BMI Method: General Appearance: No Apparent Distress, Obese HEENT: No Scleral Icterus (L), No Scleral Icterus (R) Neck: Other (central line in place) Respiratory: Lungs Clear, Normal Breath Sounds, No Respiratory Distress Cardiovascular: Regular Rate, Rhythm, No Edema, No Murmur Capillary Refill: Less Than 3 Seconds Peripheral Pulses: 2+ Dorsalis Pedis (R), 2+ Left Dors-Pedis (L) Gastrointestinal: soft; No distended Extremity: Normal Inspection, Non Tender, No Pedal Edema Neurologic/Psychiatric: Alert, Oriented x3, Normal Mood/Affect, Motor Weakness Skin: Normal Color, Warm/Dry Results Lab Laboratory Tests 08/23/19 03:09 08/24/19 05:05 Assessment/Plan Assessment/Plan Acute respiratory failure probable aspiration S/P sepsis k Metabolic encephalopathy Gastroenteritis with N/V/D NIIDM -Continue SSI Anemia RAFAT REINA DO Aug 24, 2019 16:41
[2019-08-25] VITALS: BP 104/65
[2019-08-25] MEDS: RT-ALBUTEROL/IPRATROPIUM 3 ML (DUONEB) VIAL INH SCH ×4 (01:21→12:05)
[2019-08-25 04:00] VITALS: BP 116/72
[2019-08-25 04:32] LABS: BASOPHILS % (AUTO) 0 % (0-10); EOSINOPHILS # (AUTO) 0.2 10^3/uL (0.0-0.3); EOSINOPHILS % (AUTO) 3 % (0-10); HEMATOCRIT 28 % (35-52); LYMPHOCYTES # (AUTO) 1.7 X 10^3 (1.0-4.0); LYMPHOCYTES % (AUTO) 22 % (12-44); MEAN CORPUSCULAR HEMOGLOBIN 33 PG (25-34); MEAN CORPUSCULAR HGB CONC 33 G/DL (32-36); MEAN CORPUSCULAR VOLUME 101 FL (80-99); MEAN PLATELET VOLUME 9.4 FL (7.4-10.4); MONOCYTES # (AUTO) 0.5 X 10^3 (0.0-1.0); MONOCYTES % (AUTO) 7 % (0-12); NEUTROPHILS # (AUTO) 5.4 X 10^3 (1.8-7.8); NEUTROPHILS % (AUTO) 69 % (42-75); PLATELET COUNT 205 10^3/uL (130-400); RED CELL DISTRIBUTION WIDTH 13.8 % (10.0-14.5); WHITE BLOOD COUNT 7.9 10^3/uL (4.3-11.0)
[2019-08-25 04:58] LABS: ALANINE AMINOTRANSFERASE 25 U/L (0-55); ALKALINE PHOSPHATASE 66 U/L (40-136); BILIRUBIN,TOTAL 0.4 MG/DL (0.1-1.0); BUN/CREATININE RATIO 11; CALCIUM 8.3 MG/DL (8.5-10.1); CARBON DIOXIDE 28 MMOL/L (21-32); CHLORIDE 100 MMOL/L (98-107); CREATININE SERUM 0.72 MG/DL (0.60-1.30); GFR ESTIMATED > 60; GLUCOSE 95 MG/DL (70-105); MAGNESIUM 1.5 MG/DL (1.6-2.4); PHOSPHORUS 3.4 MG/DL (2.3-4.7); POTASSIUM 3.2 MMOL/L (3.6-5.0); SODIUM 139 MMOL/L (135-145); TOTAL PROTEIN 5.6 GM/DL (6.4-8.2)
[2019-08-25] MEDS: POTASSIUM CL 10MEQ/50ML IVPB 50 ML IV SCH (05:00)
[2019-08-25] MEDS: MAGNESIUM 1 GM/100 ML IVPB 100 ML IV SCH ×3 (05:00→05:16)
[2019-08-25] MEDS: KCL 20 MEQ TAB (K-DUR) PO SCH (05:00)
[2019-08-25] MEDS: inSUlin ASPART (NovoLOG) 1 UNIT/0.01 ML (CHARGE PER UNIT) SC SCH ×2 (05:04→11:36)
[2019-08-25] MEDS ORDERED: KCL 20 MEQ TAB (K-DUR) PO ONE ×2 (05:15→08:00)
[2019-08-25 08:00] VITALS: BP 111/73
[2019-08-25] MEDS ORDERED: ENOXAPARIN 40 MG/0.4 ML (LOVENOX) SYR SQ SCH (09:00)
[2019-08-25] MEDS: PANTOPRAZOLE 40 MG (PROTONIX) VIAL IV SCH (09:48)
[2019-08-25] MEDS: OXYBUTYNIN (DITROPAN) 5 MG TAB PO SCH (09:49)
[2019-08-25] MEDS: FUROSEMIDE 40 MG/4 ML INJ (LASIX) IVP SCH (09:49)
[2019-08-25] MEDS: meTOprolol TARTRATE 50 MG (LOPRESSOR) TAB PO SCH (09:50)
[2019-08-25] MEDS: SIMvastatin 40 MG (ZOCOR) TAB PO SCH (09:50)
[2019-08-25] MEDS: lisINopril 20 MG (PRINIVIL) TABLET PO SCH (09:50)
[2019-08-25] MEDS: MICONAZOLE 2% POWDER (DESENEX AF) 90 GM TOP SCH (09:51)
--- NOTE | 2019-08-25 09:51 | NUR ---
NOTE THAT THE COMPUTER IN ROOM WOULD NOT OPEN WITH ON BADGE -- TURNED COMPUTER OFF AND BACK ON 2 TIMES STILL NOT WORKING DROP MAN WILL CHECK AND REPORT TO IT IF NEEDED
[2019-08-25] MEDS: METHOCARBAMOL 750 MG (ROBAXIN) TAB PO PRN (09:56)
[2019-08-25] MEDS: guaiFENesin/DM (ROBITUSSIN DM) 10 ML UDC PO PRN (11:45)
--- NOTE | 2019-08-25 12:24 | Discharge Summary ---
Discharge Summary Reconcile Patient Problems Problems Reviewed?: Yes Hospital Course Hospital Course Date of Admission: Aug 16, 2019 at 23:15 Admission Diagnosis : Septic shock Family Physician/Provider: No,Local Physician Date of Discharge: 08/25/19 Discharge Diagnosis: Septic shock Hospital Course: Veronica Barnard is a 59-year-old female who was admitted with septic shock due to pneumonia. Upon admission, she was critically ill and required ICU admission. She was intubated and required blood pressure support with pressors. She improved with antibiotics and supportive cares. 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 Physical and occupational therapy worked with her during her stay and she will discharge to a assisted facility for ongoing therapy. She also had difficulty with dysphagia. She worked with speech therapy and will continue this at her facility. Labs and Pending Lab Test: Laboratory Tests 08/24/19 16:35: Glucometer 165H 08/24/19 21:21: Glucometer 111H 08/25/19 04:17: White Blood Count 7.9, Red Blood Count 2.74L, Hemoglobin 9.0L, Hematocrit 28L, Mean Corpuscular Volume 101H, Mean Corpuscular Hemoglobin 33, Mean Corpuscular Hemoglobin Concent 33, Red Cell Distribution Width 13.8, Platelet Count 205, Mean Platelet Volume 9.4, Neutrophils (%) (Auto) 69, Lymphocytes (%) (Auto) 22, Monocytes (%) (Auto) 7, Eosinophils (%) (Auto) 3, Basophils (%) (Auto) 0, Neutrophils # (Auto) 5.4, Lymphocytes # (Auto) 1.7, Monocytes # (Auto) 0.5, Eosinophils # (Auto) 0.2, Basophils # (Auto) 0.0, Sodium Level 139, Potassium Level 3.2L, Chloride Level 100, Carbon Dioxide Level 28, Anion Gap 11, Blood Urea Nitrogen 8, Creatinine 0.72, Estimat Glomerular Filtration Rate > 60, BUN/Creatinine Ratio 11, Glucose Level 95, Calcium Level 8.3L, Corrected Calcium 9.1, Phosphorus Level 3.4, Magnesium Level 1.5L, Total Bilirubin 0.4, Aspartate Amino Transf (AST/SGOT) 20, Alanine Aminotransferase (ALT/SGPT) 25, Alkaline Phosphatase 66, Total Protein 5.6L, Albumin 3.0L 08/25/19 11:16: Glucometer 149H Microbiology 08/22/19 C. difficile GDH Antigen & Toxins - Final, Complete 08/20/19 Influenza Types A,B Antigen (GLENN) - Final, Complete 08/20/19 Blood Culture - Preliminary, Resulted No growth 08/16/19 Urine Culture - Final, Complete NO GROWTH Home Meds Active Hydrocodon-Acetaminophn 10-325 (Hydrocodone/Acetaminophen) 1 Each Tablet 1 Tab PO Q6H PRN 7 Days Lasix (Furosemide) 40 Mg Tablet 40 Mg PO DAILY 30 Days Lotrimin AF (Miconazole Nitrate) 90 Gm Powder 0 Gm TOP BID 30 Days Loperamide (Loperamide HCl) 2 Mg Capsule 4 Mg PO NEEDED PRN 30 Days Metoprolol Tartrate 50 Mg Tablet 50 Mg PO BID 30 Days Lisinopril 20 Mg Tablet 20 Mg PO DAILY@0900 30 Days Stool Softener (Docusate Sodium) 100 Mg Capsule 100 Mg PO DAILY PRN PRN 30 Days Reported Gabapentin 600 Mg Tablet 600 Mg PO Q8H PRN Symbicort 160-4.5 Mcg Inhaler (Budesonide/Formoterol Fumarate) 10.2 Gm Hfa.aer.ad 2 Puff IH BID Methocarbamol 750 Mg Tablet 750 Mg PO Q8H PRN Simvastatin 40 Mg Tablet 40 Mg PO DAILY Ondansetron Odt (Ondansetron) 4 Mg Tab.rapdis 4 Mg PO Q4H PRN Omeprazole 20 Mg Capsule.dr 20 Mg PO DAILY Oxybutynin Chloride 5 Mg Tablet 5 Mg PO BID Escitalopram Oxalate 20 Mg Tablet 20 Mg PO DAILY Ventolin Hfa (Albuterol Sulfate) 18 Gm Hfa.aer.ad 2 Puff PO Q4H PRN Diazepam 10 Mg Tablet 5-10 Mg PO HS Aspirin EC (Aspirin) 81 Mg Tablet.dr 81 Mg PO DAILY Meloxicam 15 Mg Tablet 15 Mg PO DAILY Metformin HCl ER (Metformin HCl) 500 Mg Tab.er.24h 500 Mg PO DAILY Instructions to Patient/Family Assessment/Instructions Take medications as prescribed. Participate in therapies. Follow-up with your primary care physician. Follow Up Appt.: Next assisted rounds Skilled NF Admit to: [facility] Certification (SNF) I certify that SNF services are required to be given on an inpatient basis because of the above named patient's need for assisted care on a continuing basis for the conditions(s) for which he/she was receiving inpatient hospital services prior to his/her transfer to the SNF. Long-Term Facility Order: Nursing Services, [employer]r-Evaluate & Treat, Physical Therapy-Evaluate & Treat, Speech Language-Evaluate & Treat Oxygen Delivery Method: Nasal Cannula Discharge Diet: No Restrictions Resuscitation Status: Full Code Cedrick Salvador Aug 25, 2019 12:09 Pneu Vac Indicated: Yes Discharge Physical Exam General: Alert, Oriented X3, Cooperative, No Acute Distress HEENT: Atraumatic, PERRLA, EOMI, Mucous Memb Moist/[place] Lungs: Clear to Auscultation, Normal Air Movement Heart: Regular Rate, Normal S1, Normal S2, No Murmurs Abdomen: Normal Bowel Sounds, Soft, No Tenderness Extremities: No Edema, No Tenderness/Swelling Skin: No Rashes, No Significant Lesion Neuro: Normal Speech, Other (Diffuse weakness) Psych/Mental Status: Mental Status NL, Mood NL CEDRICK SALVADOR MD Aug 25, 2019 12:12
--- NOTE | 2019-08-25 15:30 | NUR ---
CM/SS for finalized discharge plan. Plan: The patient went to [facility] around 1 p.m. today. The facility borrowed the talib lift sheet and will return promptly. They transported the patient in a Broda chair. Finalized discharge orders were sent to the facility. Care assessment: A care assessment was completed and signed with the patient and this SS. It was faxed to [facility] and [facility]. Summary: This CM/SS had multiple contacts with [facility] today for discharge. They stated that they wanted to pick patient up earlier than 1 and wanted around 12 p.m. This CM/SS informed the nurse and the patient. They verbalized understanding. The patients nurse did state the patient would need the facility to bring a talib lift sheet due to patient not ambulating on her own. CM/SS informed the facility. The facility stated they will bring their own. However, upon arrival they did not bring one. The facility stated they were unaware of the patient not ambulating and this CM/SS was contacted by the [employer] [facility]. CM/SS sent all Physical Therapy notes to facility. This was discussed with Ten and he agreed that it should have been known by looking through physical therapy notes. Ten apologized for the call.
== END 2019-08-25 13:44 | DRG 870 ==
LOC: EDBD 21:25 → ER 21:25 → ICU 23:15 → MERGE 23:15 → ICU 08-22 09:30 → 4TH 08-23 12:43
PROVIDERS: ADMIT Internal Medicine; ATTEND Internal Medicine
PROC: 5A1955Z Respiratory Ventilation, Greater than 96 Consecutive Hours (ICD-10-PCS; principal; 2019-08-16)
PROC: 0BH17EZ Insertion of Endotracheal Airway into Trachea, Via Natural or Artificial Opening (ICD-10-PCS; 2019-08-16)
DX: A41.9 Sepsis, unspecified organism (principal); R65.21 Severe sepsis with septic shock; J18.9 Pneumonia, unspecified organism; J96.01 Acute respiratory failure with hypoxia; G93.41 Metabolic encephalopathy; E87.1 Hypo-osmolality and hyponatremia; G72.81 Critical illness myopathy; K52.9 Noninfective gastroenteritis and colitis, unspecified; R13.10 Dysphagia, unspecified; M54.9 Dorsalgia, unspecified; I95.9 Hypotension, unspecified; E11.9 Type 2 diabetes mellitus without complications; F17.210 Nicotine dependence, cigarettes, uncomplicated; J44.9 Chronic obstructive pulmonary disease, unspecified; I10 Essential (primary) hypertension; R19.5 Other fecal abnormalities; Z79.4 Long term (current) use of insulin; D64.9 Anemia, unspecified; F41.9 Anxiety disorder, unspecified; F32.9 Major depressive disorder, single episode, unspecified; Z79.891 Long term (current) use of opiate analgesic; Z79.899 Other long term (current) drug therapy; E87.6 Hypokalemia
CPT/HCPCS: 31500; 36415; 51702; 70450; 70470; 70551; 71045; 71260; 71275; 74018; 74174; 74177; 80048; 80053; 80202; 80306; 80320; 81000; 82140; 82150; 82274; 82805; 82962; 83605; 83690; 83735; 83880; 84100; 84478; 85007; 85025; 85027; 85610; 85730; 87015; 87040; 87045; 87046; 87070; 87077; 87081; 87088; 87186; 87205; 87324; 87449; 87631; 87804; 87899; 89055; 93005; 93306; 94002; 94003; 94640; 94660; 94760; 94799; 96365; 96375

== ENCOUNTER 2019-10-28 21:54 | Observation (INO) | payer MEDICARE, MEDICAID ==
[~2019-10-28] VITALS: Ht 160 cm; Wt 109.6 kg
[~2019-10-28 21:54] MED LIST changes: +ALBU18HF2 PO; +ASPI-983 PO; +BUDE10.2 IH; +DIAZ10TA3 PO; +DOCU-238 PO; +ESCI20TA45 PO; +FURO-124 PO; +GBPN600T PO; +LISI-552 PO; +LISI10TA2 PO; +LOPE2CAP PO; +MAGN400T8 PO; +MELO15TA39 PO; +METF-865 PO; +METH750T3 PO; +METO50TA15 PO; +MICO90PO TOP; +ONDA4TAB11 PO; +OXYB5TAB13 PO; +VARE1TAB22 PO
[2019-10-28 21:59] VITALS: BP 102/71
[2019-10-28] MEDS ORDERED: NALOXONE 2 MG/2 ML (NARCAN) SYR ONE (22:32)
[2019-10-28] MEDS ORDERED: NS IV 1000 ML 1,000 ML IV SCH (22:35)
[2019-10-28] MEDS ORDERED: NALOXONE 2 MG/2 ML (NARCAN) SYR IV ONE (22:45)
[2019-10-28 22:46] LABS: BASOPHILS % (AUTO) 0 % (0-10); EOSINOPHILS # (AUTO) 0.1 10^3/uL (0.0-0.3); EOSINOPHILS % (AUTO) 1 % (0-10); HEMATOCRIT 36 % (35-52); HEMOGLOBIN 12.3 G/DL (11.5-16.0); LYMPHOCYTES # (AUTO) 1.6 X 10^3 (1.0-4.0); LYMPHOCYTES % (AUTO) 22 % (12-44); MEAN CORPUSCULAR HEMOGLOBIN 33 PG (25-34); MEAN CORPUSCULAR HGB CONC 35 G/DL (32-36); MEAN CORPUSCULAR VOLUME 96 FL (80-99); MEAN PLATELET VOLUME 8.9 FL (7.4-10.4); MONOCYTES # (AUTO) 0.4 X 10^3 (0.0-1.0); MONOCYTES % (AUTO) 6 % (0-12); NEUTROPHILS # (AUTO) 5.2 X 10^3 (1.8-7.8); NEUTROPHILS % (AUTO) 71 % (42-75); PLATELET COUNT 263 10^3/uL (130-400); RED CELL DISTRIBUTION WIDTH 14.4 % (10.0-14.5); WHITE BLOOD COUNT 7.3 10^3/uL (4.3-11.0)
[2019-10-28 22:49] LABS: FIBRIN DEGRADATION PRODUCTS 0.64 UG/ML (0.00-0.49); PROTHROMBIN TIME PATIENT 13.4 SEC (12.2-14.7)
[2019-10-28 22:53] LABS: CHLORIDE 94 MMOL/L (98-107); POTASSIUM 4.4 MMOL/L (3.6-5.0); SODIUM 126 MMOL/L (135-145)
[2019-10-28 22:54] LABS: ALBUMIN 4.1 GM/DL (3.2-4.5)
[2019-10-28 22:55] LABS: AMYLASE 119 U/L (25-125); CALCIUM 8.7 MG/DL (8.5-10.1)
[2019-10-28 22:56] LABS: AMMONIA 32 UMOL/L (11-32); GLUCOSE 145 MG/DL (70-105); TOTAL PROTEIN 6.7 GM/DL (6.4-8.2)
[2019-10-28 22:57] LABS: BILIRUBIN,URINE NEGATIVE (NEGATIVE); CLARITY,URINE CLEAR; COLOR,URINE YELLOW; GLUCOSE, URINE (UA) NEGATIVE (NEGATIVE); KETONES,URINE NEGATIVE (NEGATIVE); LEUKOCYTE ESTERASE ,URINE NEGATIVE (NEGATIVE); NITRITE,URINE NEGATIVE (NEGATIVE); PROTEIN,URINE NEGATIVE (NEGATIVE)
[2019-10-28 22:57] LABS: CARBON DIOXIDE 21 MMOL/L (21-32)
[2019-10-28 22:58] LABS: BILIRUBIN,TOTAL 0.2 MG/DL (0.1-1.0)
[2019-10-28 23:00] LABS: ALKALINE PHOSPHATASE 76 U/L (40-136); CREATININE SERUM 0.91 MG/DL (0.60-1.30); GFR ESTIMATED > 60
--- NOTE | 2019-10-28 23:00 | NUR ---
PERMISSION GIVEN TO SPEAK TO PATIENT BOYFRIEND AND UPDATE ON HER CONDITION PER PATIENT.
[2019-10-28 23:01] LABS: ACETAMINOPHEN < 10 UG/ML (10-30); BUN/CREATININE RATIO 13
[2019-10-28 23:03] LABS: ALANINE AMINOTRANSFERASE 27 U/L (0-55); MAGNESIUM 1.8 MG/DL (1.6-2.4); SALICYLATE < 5.0 MG/DL (5.0-20.0)
[2019-10-28 23:04] LABS: CREATINE KINASE 31 U/L (29-168); LIPASE 91 U/L (8-78)
[2019-10-28 23:06] LABS: BACTERIA,URINE NEGATIVE /HPF; SQUAMOUS EPITHELIAL CELL,UR RARE /HPF; WBC,URINE 0-2 /HPF
[2019-10-28 23:10] LABS: CREATINE KINASE MB 0.8 NG/ML (<6.6)
[2019-10-28 23:14] LABS: AMPHETAMINE SCREEN, URINE NEGATIVE (NEGATIVE); BARBITURATE SCREEN URINE NEGATIVE (NEGATIVE); BENZODIAZEPINES SCREEN URINE POSITIVE (NEGATIVE); CANNABINOID SCREEN, URINE NEGATIVE (NEGATIVE); COCAINE SCREEN URINE NEGATIVE (NEGATIVE); METHADONE STAT NEGATIVE (NEGATIVE); METHAMPHETAMINE SCREEN URINE S NEGATIVE (NEGATIVE); OPIATE SCREEN URINE POSITIVE (NEGATIVE); OXYCODONE STAT NEGATIVE (NEGATIVE); PROPOXYPHENE STAT NEGATIVE (NEGATIVE); TRICYCLIC ANTIDEPRESSANTS SCRE NEGATIVE (NEGATIVE)
[2019-10-28 23:25] LABS: TSH (THYROID ANALYZER) 1.59 UIU/ML (0.35-4.94)
[2019-10-28 23:33] LABS: ERYTHROCYTE SEDIMENTATION RATE 22 MM/HR (0-30)
--- NOTE | 2019-10-28 23:35 | NUR ---
PATIENT MORE ALERT AT THIS TIME. REPORTS STARTED FEELING REALLY HOT AND SWEATY WENT TO THE BATHROOM WHERE SHE IMMEDIENTLY HAD A DIARRHEA STOOL, REMEMBERS PUSHING HER LIFE ALERT BUTTON AND SAYS SHE PASSED OUT. INFORMATION RELAYED TO DR SCHUMACHER.
[2019-10-28 23:42] LABS: ABG BASE EXCESS -3.6 MMOL/L (-2.5-2.5); ABG OXYGEN SATURATION 96 % (94-100); ABG PCO2 45 MMHG (35-45); ABG PO2 78 MMHG (79-93); ABG TCO2 23.2 MMOL/L (21.0-31.0)
[2019-10-28 23:50] LABS: ABG PH 7.31 (7.37-7.43)
[2019-10-28 23:51] LABS: ALLENS TEST P; INSPIRED O2 ROOM AIR; PATIENT TEMP 36.7; VENTILATOR NO
[2019-10-29] VITALS (21 sets, daily range): BP systolic 105–171; BP diastolic 57–92
[2019-10-29] MEDS: NS IV 1000 ML 1,000 ML IV SCH ×5 (00:11→15:58)
[2019-10-29] MEDS ORDERED: ENOXAPARIN 100 MG/1 ML (LOVENOX) SYR SC ONE (00:15)
[2019-10-29] MEDS ORDERED: NS IV ONE (00:45)
[2019-10-29] MEDS ORDERED: NS IV 1000 ML 1,000 ML IV SCH (00:56)
--- NOTE | 2019-10-29 01:10 | NUR ---
IN ROOM TO EMPTY CATHETER AND STOPE IVF INFUSION. PATIENT DENIES NEEDS AT THIS TIME. CALL LIGHT IN REACH, RESTING QUIETLY. UPDATED ON PROGRESS OF ADMISSION TO 12 A CARDIAC STEPDOWN PATIENT. VERBALIZED UNDERSTANDING.
--- OUTSIDE RECORDS SUMMARY | 2019-10-29 01:13 | XMS REPORT ---
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 [employer] [facility] Address [address] [address] Care Team Providers Care Car Blocker Name Role Phone MADL, ANGE Unavailable Unavailable MADL, ANGE Unavailable MADL, ANGE Unavailable MADL, ANGE Unavailable [facility] Unavailable [phone] NO, LOCAL PHYSICIAN Unavailable Unavailable SCOTT MONTOYA Unavailable Unavailable NO, LOCAL PHYSICIAN Unavailable Unavailable MADL, ANGE Unavailable MADL, ANGE Unavailable MADL, ANGE Unavailable PARIS ARANDA Unavailable AMY ABBASI Unavailable NEHAL MAX RESTAURANT EXPEDITOR Unavailable PAMELA SHARPE DO Unavailable Unavailable CHAZ GARCIA, CODY Ruiz Unavailable Unavailable CHAZ GARCIA, CODY Ruiz Unavailable Unavailable PARIS CONTRERAS DO Unavailable Unavailable PHILIP GILMORE RESTAURANT EXPEDITOR Unavailable Unavailable ART ADAM, OSCAR Boo Unavailable Unavailable ROBIN GARCIA, SHENA Crain Unavailable Unavailable BRANDEN GARCIA, MARY JO Martinez Unavailable Unavailable RANGEL GARCIA, GINI Lovett Unavailable Unavailable Migration, Doctor Unavailable Unavailable Migration, Doctor Unavailable Unavailable Migration, Doctor Unavailable Unavailable Migration, Doctor Unavailable Unavailable Migration, Doctor Unavailable Unavailable Migration, Doctor Unavailable Unavailable MADL, ANGE Unavailable MADL, ANGE Unavailable MADL, ANGE Unavailable LUTHER FLEMING Unavailable MADL, ANGE Unavailable MADL, ANGE Unavailable MADL, ANGE Unavailable MADL, ANGE Unavailable MADL, ANGE Unavailable MADL, ANGE Unavailable MADL, ANGE Unavailable MADL, ANGE Unavailable MADL, ANGE Unavailable MADL, ANGE Unavailable MADL, ANGE Unavailable MADL, ANGE Unavailable MADL, ANGE Unavailable MADL, ANGE Unavailable MADL, ANGE Unavailable MADL, ANGE Unavailable MADL, ANGE Unavailable MADL, ANGE Unavailable MADL, ANGE Unavailable MADL, ANGE Unavailable MADL, ANGE Unavailable MADL, ANGE Unavailable RANGEL GARCIA, GINI Lovett Unavailable Unavailable LIZZETTE CAMP MD Unavailable Unavailable ANNEMARIE DO, PAMELA M Unavailable Unavailable WINSOME DO, SRUTHI K Unavailable Unavailable PHILIP GILMORE APRN Unavailable Unavailable OSCAR MARTIN Unavailable Unavailable ANDRE WINTER Unavailable Unavailable CODY WARE MD Unavailable Unavailable COYD WARE MD Unavailable Unavailable CEDRICK SALVADOR MD Unavailable Unavailable CEDRICK SALVADOR MD M Unavailable Unavailable PATY MULTANI Unavailable Unavailable PATY MULTANI Unavailable Unavailable PATY MULTANI Unavailable Unavailable MADL, ANGE Unavailable MADL, ANGE Unavailable Unavailable Unavailable Unavailable Unavailable Unavailable Unavailable Allergies Normalized Allergy Reported Date of Reaction(s) Care Provider Facility Allergy Type classification allergen Allergy Onset DA (18 Unclassified Influenza 08-16-2019 - no information ALDAIR SALVADOR [facility] Via sources.) Virus Vaccines [facility] ([id number]) DA (7 Unclassified No Known Drug 08-14-2012 - no information SHENA Not Available sources.) Allergies MD ROBIN (48587) Medications The data below is from unstructured sourcesNo Known Medications No Known Medications No Known Medications No Known Medications No Known Medications No Known Medications No Known Medications No Known Medications No Known Medications No Known Medications No Known Medications No Known Medications No Known Medications No Known Medications No Known Medications Unknown Medications Unknown Medications Unknown Medications Unknown Medications Unknown Medications Unknown Medications Unknown Medications Unknown Medications Unknown Medications Unknown Medications Unknown Medications Unknown Medications Unknown Medications Unknown Medications Unknown Medications Unknown Medications Unknown Medications Unknown Medications Unknown Medications Unknown Medications Unknown Medications Unknown Medications Unknown Medications Unknown Medications Unknown Medications Unknown Medications Unknown Medications Unknown Medications Unknown Medications Unknown Medications Unknown Medications Unknown Medications Unknown Medications Unknown Medications Unknown Medications Unknown Medications Unknown Medications Unknown Medications Unknown Medications Unknown Medications Unknown Medications Unknown Medications Unknown Medications Unknown Medications Unknown Medications Unknown Medications Unknown Medications Unknown Medications Unknown Medications Unknown Medications Unknown Medications Unknown Medications Unknown Medications Unknown Medications Unknown Medications Unknown Medications Unknown Medications Unknown Medications Unknown Medications Unknown Medications Unknown Medications Unknown Medications Unknown Medications Unknown Medications Unknown Medications No Known Medications No Known Medications No Known Medications No Known Medications No Known Medications No Known Medications No Known Medications No Known Medications No Known Medications No Known Medications No Known Medications No Known Medications No Known Medications No Known Medications No Known Medications No Known Medications No Known Medications No Known Medications No Known Medications No Known Medications No Known Medications No Known Medications No Known Medications No Known Medications No Known Medications No Known Medications No Known Medications No Known Medications No Known Medications No Known Medications No Known Medications No Known Medications No Known Medications No Known Medications No Known Medications No Known Medications No Known Medications No Known Medications No Known Medications No Known Medications No Known Medications No Known Medications No Known Medications No Known Medications No Known Medications No Known Medications No Known Medications No Known Medications No Known Medications No Known Medications No Known Medications No Known Medications No Known Medications No Known Medications No Known Medications No Known Medications No Known Medications No Known Medications No Known Medications No Known Medications No Known Medications No Known Medications Unknown Medications No Known Medications Problems Active Problems Problem Normalized Date Last Normalized Normalized Provider Fa cility Classification Problem(s) Recorded Problem Problem Sta tus Duration Residual Acquired Episodic Active ANDRE [facility] Via codes; absence of KIA LORD unclassified both cervix Hospital - (6 sources.) and uterus [place] ([address]) Residual Acquired Episodic Active ANDRE [facility] Via codes; absence of KIA LORD unclassified other organs Hospital - (6 sources.) [place] () Respiratory Acute Episodic Active CEDRICK MADELEINE , [facility] Vi a failure; respiratory [facility] [place] insufficiency; failure with Hospital - arrest (adult) hypoxia [place] (19 sources.) (93029) Allergic Allergy status Episodic Active ANDRE [facility] Via reactions (10 to other KIA LORD sources.) drugs, Hospital - medicaments [place] and biological () substances status Residual Altered mental Episodic Active CODY [facility] Via codes; status, MD Jaja WARE unclassified unspecified Hospital - (14 sources.) [place] () Deficiency and Anemia, Episodic Active CEDRICK MADELEINE , [facility] Via other anemia unspecified MD [place] (6 sources.) Hospital - [place] () Acute Cerebral Chronic Active LIZZETTE PARTBOLIVAR , [facility] Via cerebrovascula infarction, MD [place] boo disease (9 unspecified Hospital - sources.) [place] () NEGATED Cervicalgia no information Active no name no in formation no Translations: information (3 [ OTHER sources.) INTERVERTEBRAL DISC DISPLACEMENT, , SPONDYLOSIS W/O MYELOPATHY OR RADICULOPA] Spondylosis; Cervicalgia Episodic Active OSCAR SWEET , No t Available intervertebral Translations: KIA () disc [ OTHER disorders; INTERVERTEBRAL other back DISC problems (1 DISPLACEMENT, source.) , SPONDYLOSIS W/O MYELOPATHY OR RADICULOPA] Other nervous Critical Chronic Active CEDRICK MADELEINE , [facility] Via system illness MD [place] disorders (6 myopathy Hospital - sources.) [place] () 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 Hospital - nervous system [place] conditions (14 (90042) sources.) Other Dysphagia, Episodic Active CEDRICK MADELEINE , [facility] Vi a gastrointestin unspecified MD [place] al disorders Hospital - (6 sources.) [place] () Esophageal Gastro-esophag Chronic Active ANDRE [facility] Vi a disorders (10 eal reflux KIA LORD sources.) disease Hospital - without [place] esophagitis (85855) Abdominal pain Generalized Episodic Active CODY [facility] V ia (14 sources.) abdominal pain MD Jaja WARE Hospital - [place] ([address]) Fluid and Hypo-osmolalit Episodic Active CEDRICK MADELEINE , [facility] Via electrolyte y and MD [place] disorders (25 hyponatremia Hospital - sources.) Translations: [place] [ HYPOKALEMIA] (54286) Other Hypotension, Episodic Active CEDRICK SALVADOR , [facility] Via circulatory unspecified MD [place] disease (19 Hospital - sources.) [place] (18502) Influenza (10 Influenza due Episodic Active ANDRE [facility] Via sources.) to other KIA LORD identified Hospital - influenza [place] virus with (01456) other respiratory manifestations 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 CEDRICK MADELEINE , [facility] Via aftercare (19 (current) use MD [place] sources.) of insulin Hospital - [place] (45274) 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 CEDRICK MADELEINE , [facility] Via aftercare (6 (current) use MD [place] sources.) of opiate Hospital - analgesic [place] (86772) Other penitentiary Episodic Active GINI RANGEL , [facility] Via aftercare (16 (current) use MD [place] sources.) of oral Hospital - hypoglycemic [place] drugs (87977) Other penitentiary Episodic Active ANDRE [facility] Via aftercare (10 (current) use KIA LORD sources.) of systemic Hospital - steroids [place] (03180) Other nervous Metabolic Chronic Active CEDRICK MADELEINE , [facility] Via system encephalopathy MD [place] disorders (19 Hospital - sources.) [place] ([address]185) Headache; Migraine, Chronic Active ANDRE [facility] Via including unspecified, KIA LORD migraine (10 not Hospital - sources.) intractable, [place] without status (60041) migrainosus Noninfectious Noninfective Episodic Active CEDRICK MADELEINE , [facility] Via gastroenteriti gastroenteriti MD [place] s (19 s and colitis, Hospital - sources.) unspecified [place] (24342) Other nervous Other chronic Chronic Active PHILIP GILMORE No t Available system pain (40002) disorders (23 sources.) Other Other fecal Episodic Active CEDRICK MADELEINE , [facility] V ia gastrointestin abnormalities MD [place] al disorders Hospital - (19 sources.) [place] (81863) Substance-rela Other Chronic Active PHILIP GILMORE Not Av ailable jose disorders psychoactive (77133) (26 sources.) substance use, unspecified with psychoactive substance-uszanne yung sleep disorder Translations: [ NICOTINE DEPENDENCE, CIGARETTES, UNCOMPL, - Tobacco abuse 305.1] Substance-rela Other Episodic Active CODY [facility] Via jose disorders psychoactive SANDMARY LOU , MD [place] (4 sources.) substance use, Hospital - unspecified [place] with ([address]185) psychoactive substance-suzanne yung sleep disorder Other nervous Other Chronic Active LIZZETTE PARTON , [facility] V ia system specified MD [place] disorders (9 disorders of Hospital - sources.) brain [place] ([address]) Residual Other Episodic Active SRUTHI WINSOME , DO [facility] Via codes; cade [place] unclassified postprocedural Hospital - (6 sources.) states [place] (57792) Other Other Episodic Active SRUTHI WINSOME , DO [facility] Via connective specified soft [facility] tissue disease tissue Hospital - (10 sources.) disorders [place] (85422) Other Pain in left Episodic Active SRUTHI WINSOME , DO [facility] Via connective leg Jaja tissue disease Hospital - (10 sources.) [place] ([address]) Poisoning by Poisoning by Episodic Active CODY [facility] Vi a other skeletal SANDMD Jaja BARRETO medications muscle Hospital - and drugs (8 relaxants [place] sources.) [neuromuscular (20097) blocking agents], accidental (unintentional ), initial encounter Translations: [ POISONING BY OTH PARASYMPATH AND SPASMOL] Septicemia Sepsis, Episodic Active CEDRICK MADELEINE , [facility] Via (except in unspecified MD [place] labor) (19 organism Hospital - sources.) [place] () Shock (19 Severe sepsis Episodic Active CEDRICK MADELEINE , [facility] Via sources.) with septic MD [place] shock Hospital - [place] (80730) Other nervous Slurred speech Episodic Active LIZZETTE PARTON , [facility] Via system MD [place] disorders (9 Hospital - sources.) [place] (33300) Spondylosis; Spondylosis Chronic Active PAMELA SHARPE [facility] Via intervertebral without , DO [place] disc myelopathy or Hospital - disorders; radiculopathy, [place] other back lumbar region (53461) problems (21 Translations: sources.) [ OTHER INTERVERTEBRAL DISC DISPLACEMENT, , SPONDYLOSIS W/O MYELOPATHY OR RADICULOPA] Coma; stupor; Stupor Episodic Active CEDRICK MADELEINE , [facility] Via and brain MD [place] damage (13 Hospital - sources.) [place] (70254) Contraceptive Tubal ligation Episodic Active ANDRE [facility] Via and KIA Waddell procreative Hospital - management (10 [place] sources.) (56214) Disorders of Unspecified Episodic Active PHILIP GILMORE , [facility] Via teeth and jaw disorder of JASVIR [place] (5 sources.) the teeth and Hospital - supporting [place] structures (35907) Past or Other Problems Problem Normalized Date Last Normalized Normalized Provider Fa cility Classification Problem(s) Recorded Problem Problem Sta tus Duration 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 information GINI MULTANI , Not Available aftercare (26 (current) use MD (88338) sources.) of oral hypoglycemic drugs Mood disorders Major no information no information no name no information (4 sources.) depressive disorder, single episode, unspecified Residual Other no information no information SRUTHIRachell SCHUMACHER , DO Not Available codes; specified (81558) unclassified postprocedural (4 sources.) states Poisoning by Poisoning by no information no information YANA Blackburn Not Available other other MD CHAZ (93878) medications parasympatholy and drugs (19 tics sources.) [anticholinerg ics and antimuscarinic s] and spasmolytics, accidental (unintentional ), initial encounter Translations: [ POISONING BY SKELETAL MUSCLE RELAXANTS, ] Unclassified Pure no information no information no name no information (4 sources.) hypercholester olemia, unspecified Procedures Procedure Normalized Procedure Procedure Result Performer Facility Date 08-16-2019 INSERTION OF no information no name [facility] Via risti ENDOTRACHEAL AIRWAY [facility] [address] INTO TR (05177) 08-16-2019 RESPIRATORY no information no name [facility] Via [facility] VENTILATION, [address] [facility] [address] CONSECU ([address]11) 08-16-2019 RESPIRATORY no information no name [facility] Via [facility] is[facility] VENTILATION, [facility] THAN 96 (18614) Immunizations The data below is from unstructured sources No Known Immunizations No Known Immunizations No Known Immunizations No Known Immunizations No Known ImmunizationsNo immunization records.No immunization records.No immunization records.No immunization records.No immunization records.No immunization records. No Known Immunizations No Known Immunizations No Known Immunizations No Known Immunizations No Known Immunizations No Known Immunizations No Known Immunizations No Known Immunizations No Known Immunizations No Known Immunizations No Known Immunizations No Known Immunizations No Known Immunizations No Known Immunizations No Known Immunizations No Known Immunizations No Known Immunizations No Known Immunizations No Known Immunizations No Known Immunizations No Known Immunizations No Known Immunizations No Known Immunizations No Known Immunizations No Known Immunizations No Known Immunizations No Known Immunizations No Known Immunizations No Known Immunizations No Known Immunizations No Known Immunizations No Known Immunizations No Known Immunizations No Known Immunizations No Known Immunizations No Known Immunizations No Known Immunizations No Known Immunizations No Known Immunizations No Known Immunizations No Known Immunizations No Known Immunizations No Known Immunizations No Known Immunizations No Known Immunizations No Known Immunizations No Known Immunizations No Known Immunizations No Known Immunizations No Known Immunizations No Known Immunizations No Known Immunizations No Known Immunizations No Known Immunizations No Known Immunizations No Known Immunizations No Known Immunizations No Known Immunizations No Known Immunizations No Known Immunizations No Known Immunizations No Known Immunizations No Known Immunizations No Known Immunizations No Known Immunizations No Known Immunizations No Known Immunizations No Known Immunizations No Known Immunizations No Known Immunizations No Known Immunizations No Known Immunizations Results Test Name Value Interpretation Reference Range Date Time Fa cility (Normalized) (Normalized) (Medline Reference) laboratory on 2019-09-02 Albumin BCG dye 3.6 (no code) 09-02-2019 Hospital [Mass/Vol] 02: [facility] () ALP [Catalytic 65 U/L (no code) 44 - 147 U/L 09-02-2019 Hosp ital activity/Vol] 02: [facility] (74017) ALT [Catalytic 23 U/L (no code) 4 - 40 U/L 09-02-2019 Hospit al activity/Vol] 02: [facility] (99211) Anion gap 17 mmol/L (H) 3 - 11 mmol/L 09-02-2019 Hospital [Moles/Vol] 02: [facility] (44582) AST [Catalytic 38 U/L (no code) 10 - 34 U/L 09-02-2019 Hospi fletcher activity/Vol] 02: [facility] (36966) Average glucose 118 mg/dL (H) 09-02-2019 Hospital Estimated from [facility] glycated [facility] hemoglobin mass (18351) conc (Bld) Basophils (Bld) 0.0 10*3/uL (no code) 0 - 0.3 10*3/uL 09-02-2019 Hospital [#/Vol] 02: [facility] (78982) Basophils/100 0.30 % (no code) 0.5 - 1 % 09-02-2019 Hospital WBC (Bld) 02: [facility] (03078) Bilirubin 0.4 mg/dL (no code) 0.1 - 1.2 mg/dL 09-02-2019 Hospit al [Mass/Vol] 02: [facility] () Calcium 8.6 mg/dL (no code) 8.5 - 10.2 mg/dL 09-02-2019 Hospi fletcher [Mass/Vol] 02: [facility] () Chloride 101 mmol/L (no code) 95 - 106 mmol/L 09-02-2019 Hospi fletcher [Moles/Vol] 02: [facility] (56407) Cholesterol 141 mg/dL (no code) 180 - 200 mg/dL 09-02-2019 Hosp ital [Mass/Vol] 02: [facility] (52168) Cholesterol in 46 mg/dL (no code) 09-02-2019 Hospital HDL [Mass/Vol] 02: [facility] (92226) Cholesterol in 63 mg/dL (no code) 0 - 100 mg/dL 09-02-2019 Hos pital LDL [Mass/Vol] 02: [facility] (91426) Cholesterol in 32 mg/dL (no code) 09-02-2019 Hospital VLDL [Mass/Vol] 02: [facility] (13644) Cholesterol.tota 3.1 {ratio} (L) 09-02-2019 Hospital l/Cholesterol in 02: [facility] HDL [Mass ratio] [facility] (94193) Creatinine 0.83 mg/dL (no code) 09-02-2019 Hospital [Mass/Vol] 02: [facility] (84703) Eosinophils 0.1 10*3/uL (no code) 0.05 - 0.5 09-02-2019 Hospita l (Bld) [#/Vol] 10*3/uL 02: [facility] () Eosinophils/100 1.7 % (no code) 1 - 4 % 09-02-2019 Hospit al WBC (Bld) 02: [facility] () Erythrocyte 14.1 % (no code) 11.6 - 14.6 % 09-02-2019 Hospit al distribution 02: [facility] width (RBC) [facility] [Ratio] () GFR/1.73 sq 71 (no code) 90 - 120 09-02-2019 Hospital M.predicted MDRD mL/min/{1.73_m2} mL/min/{1.73_m2} 02: [facility] (S/P/Bld) [Vol [facility] rate/Area] () Globulin (S) 2.6 g/dL (no code) 2 - 3.5 g/dL 09-02-2019 Hospit al [Mass/Vol] 02: [facility] () Glucose 113 mg/dL (H) 60 - 125 mg/dL 09-02-2019 Hospita l [Mass/Vol] 02: [facility] (08767) HbA1c (Bld) 5.50 % (no code) 0 - 5.7 % 09-02-2019 Hospital [Mass fraction] 02: [facility] () HCO3 (P) 25 (no code) 09-02-2019 Hospital [Moles/Vol] 02: [facility] (84942) Hematocrit (Bld) 30.4 % (L) 36.1 - 50.3 % 09-02-2019 H ospital [Volume 02: [facility] fraction] [facility] (21984) Hemoglobin (Bld) 9.9 g/dL (L) 12.1 - 17.2 g/dL 09-02-2019 Hospital [Mass/Vol] 02: [facility] (00702) Iron [Mass/Vol] 49 ug/dL (L) 60 - 170 ug/dL 09-02-2019 H ospital 02: [facility] (63057) Iron binding 274 (no code) 09-02-2019 Hospital capacity 02: [facility] [Mass/Vol] [facility] (68763) Iron/Iron 17.90 (no code) 09-02-2019 Hospital binding 02: [facility] capacity.total [facility] [Mass ratio] (46519) Lymphocytes 1.99 10*3/uL (no code) 0.9 - 2.9 09-02-2019 Hospita l (Bld) [#/Vol] 10*3/uL 02: [facility] (08356) Lymphocytes/100 31.4 % (no code) 20 - 40 % 09-02-2019 Hospit al WBC (Bld) 02: [facility] (85435) MCH (RBC) 33.7 pg (H) 27 - 31 pg 09-02-2019 Hospital [Entitic mass] 02: [facility] (32270) MCHC (RBC) 32.6 g/dL (no code) 32 - 36 g/dL 09-02-2019 Hospital [Mass/Vol] 02: [facility] (51285) MCV (RBC) 103.4 fL (H) 80 - 100 fL 09-02-2019 Hospital [Entitic vol] 02: [facility] (26428) Monocytes (Bld) 0.4 10*3/uL (no code) 0.3 - 0.9 09-02-2019 Hosp ital [#/Vol] 10*3/uL 02: [facility] (78386) Monocytes/100 7.0 % (no code) 2 - 8 % 09-02-2019 Hospital WBC (Bld) 02: [facility] (74634) Neutrophils 3.77 10*3/uL (no code) 1.7 - 7 10*3/uL 09-02-2019 H ospital (Bld) [#/Vol] 02: [facility] (75980) Neutrophils/100 59.6 % (no code) 40 - 60 % 09-02-2019 Hospit al WBC (Bld) 02: [facility] (47509) Osmolality Calc 285 (no code) 09-02-2019 Hospital [Osmolality] 02: [facility] (58727) Platelet mean 9.1 fL (no code) 7.2 - 11.7 fL 09-02-2019 Hosp ital volume (Bld) 02: [facility] [Entitic vol] [facility] (40590) Platelets (Bld) 326 10*3/uL (no code) 150 - 450 09-02-2019 Hosp ital [#/Vol] 10*3/uL 02: [facility] (34055) Potassium 4.6 mmol/L (no code) 3.7 - 5.2 mmol/L 09-02-2019 Hosp ital [Moles/Vol] 02: [facility] (70031) Protein 6.2 g/dL (no code) 6.4 - 8.3 g/dL 09-02-2019 Hospita l [Mass/Vol] 02: [facility] (15224) RBC (Bld) 2.94 10*6/uL (L) 4.2 - 6.1 09-02-2019 Hospital [#/Vol] 10*6/uL 02: [facility] (20401) Sodium 138 mmol/L (no code) 135 - 145 mmol/L 09-02-2019 Hosp ital [Moles/Vol] 02: [facility] (60545) Transferrin 219 (no code) 09-02-2019 Hospital [Mass/Vol] 02: [facility] (46996) Triglyceride 158 mg/dL (no code) 0 - 150 mg/dL 09-02-2019 Hospi fletcher [Mass/Vol] 02: [facility] (52817) TSH Qn 1.64 (no code) 09-02-2019 Hospital 02: [facility] (17931) Urea nitrogen 11 mg/dL (no code) 7 - 20 mg/dL 09-02-2019 Hospi fletcher [Mass/Vol] 02: [facility] ([id number]) WBC (Bld) 6.33 10*3/uL (no code) 3.5 - 10.5 09-02-2019 Hospital [#/Vol] 10*3/uL 02: [facility]1 [facility] ([id number]) Vital Signs The data below is from unstructured sources Vital Response Date/Time Temperature (Fahrenheit) 97.1 degree s F (97.6 - 99.5) 06/13/2016 6:39pm Temperature (Calculated Celsius) 36. 44856 degrees C (36.4 - 37.5) 06/13/2016 6:39pm Temperature Source Tympanic 06/13/2016 6:39pm Pulse Rate (adult) 90 bpm (60 - 90) 06/13/2016 4:31pm Respiratory Rate 20 bpm (12 - 24) 06/13/2016 4:31pm Blood Pressure 95/76 mm Hg 06/13/2016 4:31pm Blood Pressure Mean 82 mm Hg 06/13/2016 4:31pm Pain Numeric Pain Scale 8 6:39pm Height (Feet) 5 feet 4:31pm Height (Inches) 9 inches 06/13/2016 4:31pm Height (Calculated Centimeters) 175. 220769 cm 06/13/2016 4:31pm Weight (Pounds) 200 pounds 06/13/2016 4:31pm Weight (Calculated Kilograms) 90.718 475 kilograms 06/13/2016 4:31pm Capillary Refill Capillary Refill Less Than 3 Seconds 06/13/2016 4:31pm Height 5 ft 9 in Weight 200 lb Body Mass Index 29.5 kg/m^2 Vital Response Date/Time Temperature (Fahrenheit) 97.0 degree s F (97.6 - 99.5) 06/23/2015 4:15pm Temperature (Calculated Celsius) 36. 56042 degrees C (36.4 - 37.5) 06/23/2015 4:15pm Pulse Rate (adult) 84 bpm (60 - 90) 06/23/2015 4:15pm Respiratory Rate 18 bpm (12 - 24) 06/23/2015 4:15pm O2 Sat by Pulse Oximetry 98 % (88 - 100) 06/23/2015 4:15pm Blood Pressure 132/80 mm Hg 06/23/2015 4:15pm Blood Pressure Mean 99 mm Hg 06/23/2015 1:45pm Pain Pain Intensity 0 2014 4:15pm Height (Feet) 5 feet 1:45pm Height (Inches) 7 inches 06/23/2015 1:45pm Height (Calculated Centimeters) 170. 549657 cm 06/23/2015 1:45pm Weight (Pounds) 209 pounds 06/23/2015 1:45pm Weight (Calculated Kilograms) 94.800 806 kilograms 06/23/2015 1:45pm Calculated BMI 32.73 1:45pm Vital Response Date/Time Pulse Rate (adult) 90 bpm (60 - 90) 11/22/2016 5:30pm Respiratory Rate 23 bpm (12 - 24) 11/22/2016 5:30pm O2 Sat by Pulse Oximetry 96 % (88 - 100) 11/22/2016 5:30pm Blood Pressure 95/60 mm Hg 11/22/2016 5:30pm Blood Pressure Mean 117 mm Hg 11/22/2016 4:25pm Pain Numeric Pain Scale 3 5:30pm Height (Feet) 5 feet 06/2016 4:25pm Height (Inches) 7.00 inches 11/22/2016 4:25pm Height (Calculated Centimeters) 170. 665587 cm 11/22/2016 4:25pm Weight (Pounds) 210 pounds 11/22/2016 4:25pm Weight (Calculated Kilograms) 95.254 399 kilograms 11/22/2016 4:25pm Capillary Refill Capillary Refill Less Than 3 Seconds 11/22/2016 4:25pm Height 5 ft 7 in 017 4:25pm Weight 210 lb 11/22/2016 4:25pm Body Mass Index 32.9 kg/m^2 11/22/2016 4:25pm Vital Response Date/Time Temperature (Fahrenheit) 96.5 degree s F (97.6 - 99.5) 11/25/2016 8:00am Temperature (Calculated Celsius) 35. 48918 degrees C (36.4 - 37.5) 11/25/2016 8:00am Temperature Source Tympanic 11/25/2016 8:00am Pulse Rate (adult) 79 bpm (60 - 90) 11/25/2016 8:00am Respiratory Rate 16 bpm (12 - 24) 11/25/2016 8:00am O2 Sat by Pulse Oximetry 96 % (88 - 100) 11/25/2016 8:30am Blood Pressure 105/71 mm Hg 11/25/2016 8:00am Blood Pressure Mean 82 mm Hg 11/25/2016 8:00am Pain Numeric Pain Scale 0-No Pain 11/25/2016 11:40am Height (Feet) 5 feet 09/2016 12:48am Height (Inches) 7.00 inches 11/25/2016 12:48am Height (Calculated Centimeters) 170. 054598 cm 11/25/2016 12:48am Weight (Pounds) 200 pounds 11/25/2016 12:48am Weight (Calculated Kilograms) 90.718 475 kilograms 11/25/2016 12:48am Capillary Refill Capillary Refill Less Than 3 Seconds 11/25/2016 12:48am Height 5 ft 7 in 017 12:48am Weight 200 lb 11/25/2016 12:48am Body Mass Index 31.3 kg/m^2 11/25/2016 12:48am Vital Response Date/Time Temperature (Fahrenheit) 98.2 degree s F (97.6 - 99.5) Temperature (Calculated Celsius) 36. 80193 degrees C (36.4 - 37.5) Temperature Source Temporal Pulse Rate (adult) 84 bpm (60 - 90) Respiratory Rate 18 bpm (12 - 24) O2 Sat by Pulse Oximetry 99 % (88 - 100) Blood Pressure 138/80 mm Hg Pain Pain Intensity 8 Height (Feet) 5 feet Height (Inches) 7 inches Height (Calculated Centimeters) 170. 138758 cm Weight (Pounds) 196 pounds Weight (Calculated Kilograms) 88.904 105 kilograms Calculated BMI 30.69 Vital Response Date/Time Temperature (Fahrenheit) 97.2 degree s F (97.6 - 99.5) 02/04/2017 5:20pm Temperature (Calculated Celsius) 36. 31181 degrees C (36.4 - 37.5) 02/04/2017 5:20pm Temperature Source Tympanic 02/04/2017 5:20pm Pulse Rate (adult) 102 bpm (60 - 90) 02/04/2017 5:20pm Respiratory Rate 18 bpm (12 - 24) 02/04/2017 5:20pm O2 Sat by Pulse Oximetry 97 % (88 - 100) 02/04/2017 5:20pm Blood Pressure 113/63 mm Hg 02/04/2017 5:20pm Blood Pressure Mean 80 mm Hg 02/04/2017 5:20pm Pain Numeric Pain Scale 6 5:20pm Height (Feet) 5 feet 5:20pm Height (Inches) 8.00 inches 02/04/2017 5:20pm Height (Calculated Centimeters) 172. 501256 cm 02/04/2017 5:20pm Height Method Stated 5:20pm Weight (Pounds) 210 pounds 02/04/2017 5:20pm Weight (Calculated Kilograms) 95.254 399 kilograms 02/04/2017 5:20pm Weight Method Stated 5:20pm Capillary Refill Capillary Refill Less Than 3 Seconds 02/04/2017 5:20pm Height 5 ft 8 in 017 5:20pm Weight 210 lb 02/04/2017 5:20pm Body Mass Index 31.9 kg/m^2 02/04/2017 5:20pm Vital Response Date/Time Temperature (Fahrenheit) 99.0 degree s F (97.6 - 99.5) 08/01/2017 7:55pm Temperature (Calculated Celsius) 37. 29194 degrees C (36.4 - 37.5) 08/01/2017 7:55pm Temperature Source Temporal 08/01/2017 7:55pm Pulse Rate (adult) 116 bpm (60 - 90) 08/01/2017 7:55pm Respiratory Rate 20 bpm (12 - 24) 08/01/2017 7:55pm O2 Sat by Pulse Oximetry 94 % (88 - 100) 08/01/2017 8:50pm Blood Pressure 144/87 mm Hg 08/01/2017 7:55pm Blood Pressure Mean 106 mm Hg (65 - 110) 08/01/2017 7:55pm Pain Numeric Pain Scale 0-No Pain 08/01/2017 7:55pm Height (Feet) 5 feet 01/2018 7:55pm Height (Inches) 8.00 inches 08/01/2017 7:55pm Height (Calculated Centimeters) 172. 910721 cm 08/01/2017 7:55pm Height Method Stated 01/2018 7:55pm Weight (Pounds) 220 pounds 08/01/2017 7:55pm Weight (Calculated Kilograms) 99.790 322 kilograms 08/01/2017 7:55pm Weight Method Stated 01/2018 7:55pm Capillary Refill Capillary Refill Less Than 3 Seconds 08/01/2017 7:55pm Height 5 ft 8 in 018 7:55pm Weight 220 lb 08/01/2017 7:55pm Body Mass Index 33.5 kg/m^2 08/01/2017 7:55pm Vital Response Date/Time Temperature (Fahrenheit) 99.0 degree s F (97.6 - 99.5) 08/01/2017 9:02pm Temperature (Calculated Celsius) 37. 15689 degrees C (36.4 - 37.5) 08/01/2017 9:02pm Temperature Source Temporal 08/01/2017 9:02pm Pulse Rate (adult) 116 bpm (60 - 90) 08/01/2017 9:02pm Respiratory Rate 20 bpm (12 - 24) 08/01/2017 9:02pm O2 Sat by Pulse Oximetry 94 % (88 - 100) 08/01/2017 9:02pm Blood Pressure 144/87 mm Hg 08/01/2017 9:02pm Blood Pressure Mean 106 mm Hg (65 - 110) 08/01/2017 7:55pm Pain Numeric Pain Scale 0-No Pain 08/01/2017 9:02pm Height (Feet) 5 feet 01/2018 7:55pm Height (Inches) 8.00 inches 08/01/2017 7:55pm Height (Calculated Centimeters) 172. 416455 cm 08/01/2017 7:55pm Height Method Stated 01/2018 7:55pm Weight (Pounds) 220 pounds 08/01/2017 7:55pm Weight (Calculated Kilograms) 99.790 322 kilograms 08/01/2017 7:55pm Weight Method Stated 01/2018 7:55pm Capillary Refill Capillary Refill Less Than 3 Seconds 08/01/2017 7:55pm Height 5 ft 8 in 018 7:55pm Weight 220 lb 08/01/2017 7:55pm Body Mass Index 33.5 kg/m^2 08/01/2017 7:55pm Interventions No Information Plan of Treatment The data below is from unstructured sources Discharge Date 06/13/16 7:09pm Disposition 01 HOME, SELF-CARE Condition at Discharge Stable Instructions/Education Provided Low Back Pain (DC) Prescriptions See Medication Section Referrals [facility] - Primary Care Physician Discharge Date 06/23/15 4:15pm Disposition 01 HOME, SELF-CARE Condition at Discharge Stable Instructions/Education Provided Bact erial Pneumonia (ED) Prescriptions See Medication Section Referrals [facility] - Primary Care Physician Additional Instructions/Education 1. Antibiotics as directed 2. Return to ER for any concerns 3. Follow-up with your doctor next week for recheck All discharge instructions reviewed with patient and/or family. Voiced understanding. Discharge Date 11/22/16 5:30pm Disposition 01 HOME, SELF-CARE Condition at Discharge Stable Instructions/Education Provided ENRIQUE GALLARDO YOUR CHRONIC PAIN Prescriptions See Medication Section Referrals NO,LOCAL PHYSICIAN Order Date: Primary Care Physician Additional Instructions/Education 1. Take medication as directed 2. Follow up with your regular doctor noé cota this week 3. All discharge instructions reviewed with patient and/or family. Voiced understanding. Discharge Date 11/25/16 11:40am Disposition 01 HOME, SELF-CARE Instructions/Education Provided Tard modesta Dyskinesia Prescriptions See Medication Section Care Plan and Goals follow up with Paras Peck to review medication changes and recommendations. Call and make an appointment with the [facility] pain clinic or with [address] [place] [address] ortho - try and use lidocaine pain patches and other alternative modalities. You do have mild anemia. Please make sure you are up to date on your colonoscopies and evaluations for any source of GI blood loss. 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 Voiced understanding. Activity Details Follow Up prn Reason: Discharge Date 08/01/17 9:02pm Disposition 01 HOME, SELF-CARE Condition at Discharge Improved Instructions/Education Provided Flu, Adult (DC) Prescriptions See Medication Section Referrals [employer]HAL [employer] Order Date: Primary Care Physician Address: [address] [place] [id number] Additional Instructions/Education Al l discharge instructions reviewed with patient and/or family. Voiced understanding. Medications as instructed. Tylenol extra strength [id number] as directed for pain or fever. Ibuprofen 800 mg by mouth every 8 hours as needed for pain or fever. Push Fluids. Humidifier as needed. Decongestants and antihistamines as directed. Follow-up with your primary care provider if no improvement in symptoms. Return to the emergency department for worsened symptoms or any other concerns. Goals No Information Social History No Information Functional Status The data below is from unstructured sources Query Response Date Theodore rded Patient Orientation Person Place Time Situation November 25, 2016 8:30am Comprehension Ability Understands Co ncepts November 25, 2016 8:30am Mental Status No Information Encounters Encounter Normalized Encounter Encounter Diagnosis Care Provi yoandy Organization Date Type 08-01-2017 Emergency department no information [facility] [address] - patient visit (no phone) [facility] 08-01-2017 (no phone) 02-04-2017 Emergency department no information SRUTHI SCHUMACHER DO (no [facility] [address] - patient visit phone) [facility] 02-04-2017 (no phone) 11-25-2016 Emergency department no information no name no organization name patient visit 11-22-2016 Emergency department no information PHILIP FAGAN (no [facility] [address] - patient visit phone) [facility] 11-22-2016 (no phone) 06-13-2016 Emergency department no information GINI MULTANI MD (no [facility] [address] - patient visit phone) [facility] 06-13-2016 (no phone) 06-23-2015 Emergency department no information PHILIP FAGAN (no [facility] [address] - patient visit phone) [facility] 06-23-2015 (no phone) 08-14-2012 Emergency department no information no name no organization name - patient visit 08-15-2012 08-16-2019 Evaluation and no information CEDRICK SALVADOR MD (no [facility] - management of phone) [facility] 08-25-2019 inpatient (no phone) 11-25-2016 Evaluation and no information CODY Crain [facility] [address] - management of (no phone) [facility] 11-25-2016 inpatient (no phone) 12-07-2017 Patient encounter no information no name no or ganization name 08-01-2017 Patient encounter no information no name no or ganization name NEGATED Patient encounter no information no name no or ganization name 07-16-2017 - 08-02-2017 07-02-2017 Patient encounter no information no name no or ganization name 06-28-2017 Patient encounter no information no name no or ganization name 06-26-2017 Patient encounter no information no name no or ganization name 06-20-2017 Patient encounter no information no name no or ganization name NEGATED Patient encounter no information no name no or ganization name 06-11-2017 05-02-2017 Patient encounter no information no name no or ganization name 12-31-2016 Patient encounter no information no name no or ganization name - 01-07-2017 09-02-2019 Patient encounter no information PATY MULTANI (no ph one) [facility] - procedure of [facility] (no 09-02-2019 phone) 08-16-2019 Patient encounter no information CEDRICK SALVADOR MD (no [facility] - procedure phone) [facility] 08-25-2019 (no phone) 12-07-2017 Patient encounter no information LIZZETTE CAMP MD ( [facility]-16-2017 Patient encounter no information OSCAR ADAM (no [facility] - procedure phone) [facility] 08-02-2017 (no phone) 06-14-2017 Patient encounter no information no name no or ganization name procedure 05-02-2017 Patient encounter no information OSCAR ADAM (no [facility]) [facility] 02-04-2017 Patient encounter no information no name no or ganization name procedure 12-31-2016 Patient encounter no information PAMELA SHARPE DO (no [facility] - procedure phone) [facility] 01-07-2017 (no phone) 12-24-2016 Patient encounter no information no name no or ganization name procedure 12-20-2016 Patient encounter no information no name no or ganization name procedure 12-17-2016 Patient encounter no information no name no or ganization name procedure 12-13-2016 Patient encounter no information PAMELA SHARPE DO (no [facility] 12-10-2016 Patient encounter no information no name no or ganization name procedure 11-25-2016 Patient encounter no information no name no or ganization name - procedure 11-25-2016 11-22-2016 Patient encounter no information no name no or ganization name procedure Medical Equipment No Information Payers Normalized Payer Value Medicaid no information Summary Purpose eClinicalWorks SubmissioneClinicalWorks SubmissioneClinicalWorks SubmissioneClinicalWorks SubmissioneClinicalWorks SubmissioneClinicalWorks SubmissioneClinicalWorks SubmissioneClinicalWorks SubmissioneClinicalWorks SubmissioneClinicalWorks SubmissioneClinicalWorks SubmissioneClinicalWorks SubmissioneClinicalWorks SubmissioneClinicalWorks SubmissioneClinicalWorks SubmissioneClinicalWorks SubmissioneClinicalWorks SubmissioneClinicalWorks SubmissioneClinicalWorks SubmissioneClinicalWorks SubmissioneClinicalWorks SubmissioneClinicalWorks SubmissioneClinicalWorks SubmissioneClinicalWorks SubmissioneClinicalWorks SubmissioneClinicalWorks Submission Advance Directives Directive Response Recor ded Date/Time Advance Directives No 1:50pm Directive Response Recor ded Date/Time Advance Directives No 1:50pm Resuscitation Status Full Code 06/23/15 1:50pm Directive Response Recor ded Date/Time Advance Directives No 4:25pm Resuscitation Status Full Code 11/22/16 4:25pm Directive Response Recor ded Date/Time Advance Directives No 4:35am Health Care Power of University Librarian No 11/25/16 4:35am Organ Donor No 11/25/16 4:35am Resuscitation Status Full Code 11/25/16 4:35am Directive Response Recor ded Date/Time Advance Directives No 4:44pm Resuscitation Status Full Code 06/20/14 4:44pm Directive Response Recor ded Date/Time Advance Directives No 4:35am Health Care Power of University Librarian No 11/25/16 4:35am Organ Donor No 11/25/16 4:35am Directive Response Recor ded Date/Time Advance Directives No 5:29pm Health Care Power of University Librarian No 11/25/16 4:35am Organ Donor No 11/25/16 4:35am Resuscitation Status Full Code 02/04/17 5:29pm Directive Response Recor ded Date/Time Advance Directives No 7:55pm Health Care Power of University Librarian No 08/01/17 7:55pm Organ Donor No 08/01/17 7:55pm Resuscitation Status Full Code 08/01/17 7:55pm Discharge Instructions No hospital discharge instructions.No hospital discharge instructions.No hospital discharge instruction information available.No hospital discharge instruction information available.No hospital discharge instructions.Current inpatient/outpatient. Discharge instructions are currently unavailable.No hospital discharge instruction information available.No hospital discharge instruction information available.No hospital discharge instruction information available. Additional Source Comments This clinical document has been generated using [employer] software that has been certified by the Office of the National Coordinator for Health Information Technology (ONC 15.99.04.3023.Diam.31.00.0.833816) and the National Committee for Dope And Fabric Worker (NCQA, as an eMeasure certified technology). FOR RECORDS PERTAINING TO PATIENTS WHO ARE OR HAVE BEEN ENROLLED IN A CHEMICAL D EPENDENCY/SUBSTANCE ABUSE PROGRAM, SOME INFORMATION MAY BE OMITTED. This clinica l summary was aggregated from multiple sources. Caution should be exercised in using it in the provision of clinical care. This summary normalizes information from multiple sources, and as a consequence, information in this document may ma terially change the coding, format and clinical context of patient data. In olayinka tion, data may be omitted in some cases. CLINICAL DECISIONS SHOULD BE BASED ON T HE PRIMARY CLINICAL RECORDS. [employer]. provides no warranty or guara ntee of the accuracy or completeness of information in this document.The followi information is based on time limited clinical information UNRECOGNIZED CONTENT PROVIDED BELOW FOR UNRECOGNIZED SECTION MEDICAL (GENERAL) HISTORY Type Description Date Medical History hypertension Medical History type II diabetes AIC 5.4 on 09-05 Medical History hyperlipidemia Medical History anxiety Medical History depression- has take n wellbutrin and fluoxetine for long time together Medical History chronic pain-fell an d had back fx Medical History asthma Medical History chronic obstructive pulmonary disease (COPD) Medical History gastroesophageal ref lux disease (GERD) Medical History gastric ulcer Medical History 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 Medical History migraine headaches Medical History anemia Medical History difficulty reading & spelling Medical History colonic polyps Medical History Anxiety state, unspecified Medical History Depressive disorder, not elsewhere classified Medical History Other injury of othe r sites of trunk Medical History Pain in joint, lower leg Surgical History EGD 201 3 Surgical History colonoscopy 2012 Surgical History tonsillectomy Surgical History hysterectomy, total with bilateral salpingo- oophorectomy (BSO) d/t DUB 1999 Surgical History orthopedic surgery- Left foot spurs UNRECOGNIZED CONTENT PROVIDED BELOW FOR UNRECOGNIZED SECTION REASON FOR VISIT [id number]
--- OUTSIDE RECORDS SUMMARY | 2019-10-29 01:14 | XMS REPORT ---
Author Author RICOVeronica Ferrell ANGE Organization [facility] Address [address] [place] [address] Care Team Providers Care Service Observer Chief Name Role Phone ANGE REYNOSO Unavailable PROBLEMS Type Condition ICD9-CM Code HHU30-UT Code Onset Dates Condition S tatus SNOMED Code Problem Bilateral low back pain without sciatica M54.5 Active 626138317 Problem Anxiety F41.9 Active 07206784 Problem Chronic pain syndrome G89.4 Active 590547301 Problem Thrush B37.0 Active 20373906 Problem Type 2 diabetes mellitus with complication E11.8 Active 87663626 Problem COPD with acute exacerbation J44.1 A ctive 401939783 Problem History of long-term use of multiple prescription drugs Z92.29 Active 675217041 Problem Essential hypertension I10 Active 82957689 Problem Mixed hyperlipidemia E78.2 Active 647613765 Problem Long-term use of high-risk medication Z79.899 Active 136206826 Problem Chronic obstructive pulmonary disease, unspecified COPD ty pe J44.9 Active 73270548 ALLERGIES No Information ENCOUNTERS Encounter Location Date Diagnosis [facility] [address] [id number] [place] [address] Nov, [facility] [address] [place] [id number] [address] [place] [address] October, Scabies B86 [facility] [address] [place], [place] [id number] [address] [place] [address] October, Acute upper respiratory infe ction, unspecified J06.9 [facility] [place] [address] [place] [id number] [address] [place] [address] October, Dysuria R30.0 and Coughing R 05 [facility] [address] [id number] [place] [address] Aug, [facility] [id number] [place] [address] Jun, [facility] [id number] [place] [address] Jun, [facility] [id number] [place] [address] Jun, [facility] [address] [address] May, [facility] [id number] [place] [address] May, [facility] [address] [address] May, [facility] [id number] [place] [address] Apr, Type 2 diabetes mellitus with complicati on E11.8 ; Chronic pain syndrome G89.4 ; Bilateral low back pain without sciatica M54.5 ; Essential hypertension I10 ; Anxiety F41.9 ; COPD with acute exacerbation J44.1 ; Pain of left hand M79.642 and Pain in right hand M79.641 [facility] [id number] [place] [address] Apr, [facility] [id number] [place] [address] Mar, [facility] [id number] [place] [address] Mar, [facility] [id number] [place] [address] Mar, [facility] [address] [address] 08 Feb, 2016 [facility] [address] [address] Feb, [facility] [address] [address] Jan, Type 2 diabetes mellitus with complicati on E11.8 ; Chronic pain syndrome G89.4 ; Bilateral low back pain without sciatica M54.5 ; Essential hypertension I10 ; Anxiety F41.9 ; Chronic obstructive pulmonary disease, unspecified COPD type J44.9 and Thrush B37.0 [facility] [address] [address] Jan, [facility] [id number] [place] [address] Dec, [facility] [address] [address] Dec, [facility] [address] [address] Nov, [facility] [address] [address] Nov, [facility] [address] [address] Nov, [facility] [address] [address] Nov, Chest pain, unspecified type R07.9 and C OPD exacerbation J44.1 [facility] [address] [address] October, [facility] [address] [address] Sep, [facility] [address] [address] Sep, Type 2 diabetes mellitus with complicati on E11.8 ; Chronic pain syndrome G89.4 ; Bilateral low back pain without sciatica M54.5 ; Essential hypertension I10 ; Anxiety F41.9 and COPD exacerbation J44.1 [facility] [address] [address] Aug, [facility] [address] [address] Aug, [facility] [address] [address] Aug, Chronic pain syndrome G89.4 [facility] [address] [address] Aug, [facility] [address] [address] Aug, [facility] [address] [address] Jul, Chronic pain syndrome G89.4 and Anxiety F41.9 [facility] [address] [address] Jul, [facility] [address] [address] Jun, Bilateral low back pain without sciatica M54.5 ; Chronic pain syndrome G89.4 ; Anxiety F41.9 ; History of long-term use of multiple prescription drugs Z92.29 ; Type 2 diabetes mellitus with complication E11.8 ; Long-term use of high-risk medication Z79.899 ; Mixed hyperlipidemia E78.2 and Essential hypertension I10 [facility] [address] [address] Jun, [facility] [address] [address] Jun, [facility] [address] [address] May, [facility] [address] [address] Apr, [facility] [address] [address] Mar, [facility] [address] [address] Mar, Bilateral low back pain without sciatica M54.5 ; History of long-term use of multiple prescription drugs Z92.29 ; Anxiety F41.9 ; Chronic pain syndrome G89.4 ; Type 2 diabetes mellitus with complication E11.8 ; Long-term use of high-risk medication Z79.899 and Mixed hyperlipidemia E78.2 [facility] [address] [address] Mar, [facility] [address] [address] Mar, Chronic pain syndrome G89.4 [facility] [address] [address] Mar, [facility] [address] [address] Feb, [facility] [address] [address] Feb, [facility] [address] [address] Feb, [facility] [address] [address] Feb, [facility] [address] [address] Jan, [facility] [address] [address] Jan, [facility] [address] [address] Dec, [facility] [address] [address] Dec, Lumbago 724.2 ; Diabetes mellitus withou t mention of complication, type II or unspecified type, not stated as uncontrolled 250.00 ; Essential hypertension, benign 401.1 ; Anxiety state, unspecified 300.00 ; Chronic pain 338.29 ; COPD with acute exacerbation 491.21 ; Tobacco abuse 305.1 ; Depression 311 and Hyperlipidemia 272.4 [facility] [address] [address] Dec, [facility] [address] [address] Nov, Lumbago 724.2 ; Diabetes mellitus withou t mention of complication, type II or unspecified type, not stated as uncontrolled 250.00 ; Essential hypertension, benign 401.1 ; Anxiety state, unspecified 300.00 ; Chronic pain 338.29 ; COPD with acute exacerbation 491.21 ; Tobacco abuse 305.1 and Depression 311 [facility] [id number] [place] [address] Nov, [facility] [id number] [place] [address] Nov, [facility] [id number] [place] [address] Nov, [facility] [address] [address] October, [facility] [id number] [place] [address] October, [facility] [id number] [place] [address] October, [facility] [id number] [place] [address] October, [facility] [id number] [place] [address] October, [facility] [id number] [place] [address] Sep, [facility] [id number] [place] [address] Sep, [facility] [id number] [place] [address] Sep, [facility] [id number] [place] [address] Aug, [facility] [id number] [place] [address] Aug, [facility] [id number] [place] [address] Aug, [facility] [address] [place] [address] 20 Aug, 2014 [facility] [address] [facility] [id number] [place] [address] 19 Aug, 2014 [facility] [address] [facility] [id number] [place] [address] 19 Aug, 2014 [facility] [address] [id number] [place] [address] 16 Aug, 2014 [facility] [address] [facility] [id number] [place] [address] 16 Aug, 2014 [facility] [address] [facility] [id number] [place] [address] 16 Aug, 2014 [facility] [address] [id number] [place] [address] 16 Aug, 2014 [facility] [address] [id number] [place] [address] 13 Aug, 2014 [facility] [address] [id number] [place] [address] Aug, [facility] [address] [facility] [id number] [place] [address] 24 Jul, 2014 [facility] [address] [id number] [place] [address] Jul, 2014 [facility] [address] [id number] [place] [address] 23 Jul, 2014 [facility] [address] [id number] [place] [address] 13 Jul, 2014 [facility] [address] [facility] [id number] [place] [address] 13 Jul, 2014 [facility] [address] [id number] [place] [address] 10 Jul, 2014 [facility] [address] [facility] [id number] [place] [address] 10 Jul, 2014 [facility] [address] [id number] [place] [address] Jun, [facility] [address] [id number] [place] [address] Jun, [facility] [address] [id number] [place] [address] Jun, [facility] [address] [id number] [place] [address] Jun, [facility] [address] [id number] [place] [address] Jun, [facility] [address] [id number] [place] [address] Jun, [facility] [address] [id number] [place] [address] Jun, [facility] [address] [id number] [place] [address] Jun, [facility] [address] [id number] [place] [address] Jun, [facility] [address] [id number] [place] [address] May, [facility] [address] [id number] [place] [address] May, [facility] [address] [id number] [place] [address] May, [facility] [address] [id number] [place] [address] 30 May, 2014 [facility] [address] [id number] [place] [address] 17 May, 2014 [facility] [address] [id number] [place] [address] 15 May, 2014 [facility] [address] [id number] [place] [address] 15 May, 2014 [facility] [address] [id number] [place] [address] 12 May, 2014 [facility] [address] [id number] [place] [address] May, [facility] [address] [facility] [id number] [place] [address] May, [facility] [address] [id number] [place] [address] May, [facility] [address] [id number] [place] [address] Apr, [facility] [address] [id number] [place] [address] Apr, [facility] [address] [id number] [place] [address] Apr, [facility] [address] [id number] [place] [address] Apr, [facility] [address] [id number] [place] [address] Mar, [facility] [address] [id number] [place] [address] Mar, [facility] [address] [id number] [place] [address] Mar, [facility] [address] [id number] [place] [address] 2014 [facility] [address] [id number] [place] [address] 08 Mar, 2014 [facility] [address] [id number] [place] [address] 08 Mar, 2014 [facility] [address] [id number] [place] [address] 29 Feb, 2014 [facility] [address] [id number] [place] [address] 29 Feb, 2013 [facility] [address] [id number] [place] [address] 17 Sep, 2013 [facility] [address] [id number] [place] [address] 16 Sep, 2013 [facility] [id number] [place] [address] 16 Feb, 2014 [facility] [id number] [place] [address] Feb, [facility] [id number] [place] [address] Feb, [facility] [id number] [place] [address] Jan, [facility] [address] [address] Jan, [facility] [address] [address] Jan, [facility] [address] [address] Jan, [facility] [id number] [place] [address] Dec, [facility] [id number] [place] [address] Dec, [facility] [id number] [place] [address] Dec, [facility] [id number] [place] [address] Dec, IMMUNIZATIONS No Known Immunizations SOCIAL HISTORY [...]
--- OUTSIDE RECORDS SUMMARY | 2019-10-29 01:14 | XMS REPORT ---
Author Author RICOVeronica Ferrell ANGE Organization [facility] Address [address] [place] [address] Care Team Providers Care Sheet [employer] Name Role Phone ANGE REYNOSO Unavailable PROBLEMS Type Condition ICD9-CM Code RSO52-JX Code Onset Dates Condition S tatus SNOMED Code Problem Bilateral low back pain without sciatica M54.5 Active 834506069 Problem Anxiety F41.9 Active 11905390 Problem Chronic pain syndrome G89.4 Active 849124455 Problem Thrush B37.0 Active 32183370 Problem Type 2 diabetes mellitus with complication E11.8 Active 75205641 Problem COPD with acute exacerbation J44.1 A ctive 999880473 Problem History of long-term use of multiple prescription drugs Z92.29 Active 449130809 Problem Essential hypertension I10 Active 78856139 Problem Mixed hyperlipidemia E78.2 Active 189756781 Problem Long-term use of high-risk medication Z79.899 Active 782633663 Problem Chronic obstructive pulmonary disease, unspecified COPD ty pe J44.9 Active 17957464 ALLERGIES No Information ENCOUNTERS Encounter Location Date Diagnosis [facility] [address] [id number] [address] [place] [address] Nov, [facility] [address] [id number] [address] [place] [address] October, Scabies B86 [facility] [address] [id number] [address] [place] [address] October, Acute upper respiratory infe ction, unspecified J06.9 [facility] [address] [id number] [address] [place] [address] October, Dysuria R30.0 and Coughing R 05 [facility] [id number] [place] [address] Aug, [facility] [address] [id number] [address] [place] [address] Jun, [facility] [address] [id number] [address] [place] [address] Jun, [facility] [address] [id number] [address] [place] [address] Jun, [facility] [address] [id number] [address] [place] [address] May, [facility] [address] [id number] [address] [place] [address] May, [facility] [address] [facility] [id number] [address] [place] [address] May, [facility] [address] [facility] [id number] [address] [place] [address] Apr, Type 2 diabetes mellitus wit h complication E11.8 ; Chronic pain syndrome G89.4 ; Bilateral low back pain without sciatica M54.5 ; Essential hypertension I10 ; Anxiety F41.9 ; COPD with acute exacerbation J44.1 ; Pain of left hand M79.642 and Pain in right hand M79.641 [facility] [address] [id number] [address] [place] [address] Apr, [facility] [address] [id number] [address] [place] [address] Mar, [facility] [address] [id number] [address] [place] [address] Mar, [facility] [address] [id number] [address] [place] [address] Mar, [facility] [address] [facility] [id number] [address] [place] [address] Feb, [facility] [address] [facility] [id number] [address] [place] [address] Feb, [facility] [address] [id number] [address] [place] [address] Jan, Type 2 diabetes mellitus wit h complication E11.8 ; Chronic pain syndrome G89.4 ; Bilateral low back pain without sciatica M54.5 ; Essential hypertension I10 ; Anxiety F41.9 ; Chronic obstructive pulmonary disease, unspecified COPD type J44.9 and Thrush B37.0 [facility] [address] [id number] [address] [place] [address] Jan, [facility] [address] [id number] [address] [place] [id number] Dec, [facility] [address] [id number] [address] [place] [address] Dec, [facility] [address] [id number] [address] [place] [address] Nov, [facility] [address] [id number] [address] [place] [address] Nov, [facility] [address] [id number] [address] [place] [address] Nov, [facility] [address] [facility] [id number] [address] [place] [address] Nov, Chest pain, unspecified type R07.9 and COPD exacerbation J44.1 [facility] [address] [id number] [address] [place] [address] October, [facility] [address] [facility] [id number] [address] [place] [address] Sep, [facility] [address] [id number] [address] [place] [address] Sep, Type 2 diabetes mellitus wit h complication E11.8 ; Chronic pain syndrome G89.4 ; Bilateral low back pain without sciatica M54.5 ; Essential hypertension I10 ; Anxiety F41.9 and COPD exacerbation J44.1 [facility] [address] [facility] [id number] [address] [place] [phone] Aug, [facility] [address] [facility] [id number] [address] [place] [address] Aug, [facility] [address] [facility] [id number] [address] [place] [address] Aug, Chronic pain syndrome G89.4 [facility] [address] [facility] [id number] [address] [place] [address] Aug, [facility] [id number] [place] [address] Aug, [facility] [id number] [place] [address] Jul, Chronic pain syndrome G89.4 and Anxiety F41.9 [facility] [address] [id number] [address] [place] [address] Jul, [facility] [address] [address] Jun, Bilateral low back pain with out sciatica M54.5 ; Chronic pain syndrome G89.4 ; Anxiety F41.9 ; History of long-term use of multiple prescription drugs Z92.29 ; Type 2 diabetes mellitus with complication E11.8 ; Long-term use of high-risk medication Z79.899 ; Mixed hyperlipidemia E78.2 and Essential hypertension I10 [facility] [address] [id number] [address] [place] [address] Jun, [facility] [address] [id number] [address] [place] [address] Jun, [facility] [address] [facility] [id number] [address] [place] [address] May, [facility] [address] [id number] [address] [place] [address] Apr, [facility] [address] [id number] [address] [place] [address] Mar, [facility] [address] [id number] [address] [place] [address] Mar, Bilateral low back pain with out sciatica M54.5 ; History of long- term use of multiple prescription drugs Z92.29 ; Anxiety F41.9 ; Chronic pain syndrome G89.4 ; Type 2 diabetes mellitus with complication E11.8 ; Long-term use of high-risk medication Z79.899 and Mixed hyperlipidemia E78.2 [facility] [address] [id number] [address] [place] [address] Mar, [facility] [address] [id number] [address] [place] [address] Mar, Chronic pain syndrome G89.4 [facility] [address] [id number] [address] [place] [address] Mar, [facility] [address] [id number] [address] [place] [address] Feb, [facility] [address] [id number] [address] [place] [address] Feb, [facility] [address] [id number] [address] [place] [address] Feb, [facility] [address] [id number] [address] [place] [phone] Feb, [facility] [address] [id number] [address] [place] [phone] Jan, [facility] [address] [facility] [id number] [address] [place] [address] Jan, [facility] [address] [id number] [address] [place] [address] Dec, [facility] [address] [id number] [address] [place] [address] Dec, Lumbago 724.2 ; Diabetes thony litus without mention of complication, type II or unspecified type, not stated as uncontrolled 250.00 ; Essential hypertension, benign 401.1 ; Anxiety state, unspecified 300.00 ; Chronic pain 338.29 ; COPD with acute exacerbation 491.21 ; Tobacco abuse 305.1 ; Depression 311 and Hyperlipidemia 272.4 [facility] [address] [id number] [address] [place] [address] Dec, [facility] [address] [facility] [id number] [address] [place] [address] Nov, Lumbago 724.2 ; Diabetes thony litus without mention of complication, type II or unspecified type, not stated as uncontrolled 250.00 ; Essential hypertension, benign 401.1 ; Anxiety state, unspecified 300.00 ; Chronic pain 338.29 ; COPD with acute exacerbation 491.21 ; Tobacco abuse 305.1 and Depression 311 [facility] [address] [id number] [address] [place] [address] Nov, [facility] [address] [id number] [address] [place] [address] Nov, [facility] [address] [id number] [address] [place] [address] Nov, [facility] [address] [id number] [address] [place] [address] October, [facility] [address] [id number] [address] [place] [phone] October, [facility] [address] [id number] [address] [place] [phone] October, [facility] [address] [id number] [address] [place] [phone] October, [facility] [address] [id number] [address] [place] [phone] October, [facility] [address] [id number] [address] [place] [id number] Sep, [facility] [address] [facility] [id number] [address] [place] [phone] Sep, [facility] [address] [id number] [address] [place] [address], [place] [address] 13 Sep, 2014 [facility] [address] [id number] [address] [place] [address], [place] [address] 23 Aug, 2014 [facility] [address] [id number] [address] [place] [address], [place] [address] 23 Aug, 2014 [facility] [address] [id number] [address] [place] [address], [place] [address] 20 Aug, 2014 [facility] [address] [id number] [address] [place] [address], [place] [address] 20 Aug, 2014 [facility] [address] [id number] [address] [place] [address], [place] [address] 19 Aug, 2014 [facility] [address] [id number] [address] [place] [address], [place] [address] 19 Aug, 2014 [facility] [address] [id number] [address] [place] [address], [place] [address] 16 Aug, 2014 [facility] [address] [id number] [address] [place] [address], [place] [address] 16 Aug, 2014 [facility] [address] [id number] [address] [place] [address], [place] [address] 16 Aug, 2014 [facility] [address] [id number] [address] [place] [address], [place] [address] 16 Aug, 2014 [facility] [address] [id number] [address] [place] [address], [place] [address] 13 Aug, 2014 [facility] [address] [id number] [address] [place] [address], [place] [address] 13 Aug, 2014 [facility] [address] [id number] [address] [place] [address], [place] [address] 24 Jul, 2014 [facility] [address] [id number] [address] [place] [address], [place] [address] 23 Jul, 2014 [facility] [address] [id number] [address] [place] [address], [place] [address] Jul, [facility] [address] [id number] [address] [place] [address], [place] [address] Jul, [facility] [address] [id number] [address] [place] [address], [place] [address] Jul, [facility] [address] [id number] [address] [place] [address], [place] [address] Jul, [facility] [address] [id number] [address] [place] [address], [place] [address] Jul, [facility] [address] [id number] [address] [place] [address], [place] [address] Jun, [facility] [address] [id number] [address] [place] [address], [place] [address] Jun, [facility] [address] [id number] [address] [place] [address], [place] [address] Jun, [facility] [address] [id number] [address] [place] [address], [place] [address] Jun, [facility] [address] [id number] [address] [place] [address], [place] [address] Jun, [facility] [address] [id number] [address] [place] [address], [place] [address] Jun, [facility] [address] [id number] [address] [place] [address], [place] [address] Jun, [facility] [address] [id number] [address] [place] [address], [place] [address] Jun, [facility] [address] [id number] [address] [place] [address], [place] [address] Jun, [facility] [address] [id number] [address] [place] [address], [place] [address] May, [facility] [address] [id number] [address] [place] [address], [place] [address] May, [facility] [address] [id number] [address] [place] [address], [place] [address] 30 May, 2014 [facility] [address] [id number] [address] [place] [address], [place] [address] 30 May, 2014 [facility] [address] [id number] [address] [place] [address], [place] [address] 17 May, 2014 [facility] [address] [id number] [address] [place] [address], [place] [address] 15 May, 2014 [facility] [address] [id number] [address] [place] [address], [place] [address] 15 May, 2014 [facility] [address] [id number] [address] [place] [address], [place] [address] 12 May, 2014 [facility] [address] [id number] [address] [place] [address], [place] [address] May, [facility] [address] [id number] [address] [place] [address], [place] [address] May, [facility] [address] [id number] [address] [place] [address], [place] [address] May, [facility] [address] [id number] [address] [place] [address], [place] [address] Apr, [facility] [address] [id number] [address] [place] [address], [place] [address] Apr, [facility] [address] [id number] [address] [place] [address], [place] [address] Apr, [facility] [address] [id number] [address] [place] [address], [place] [address] Apr, [facility] [address] [id number] [address] [place] [address], [place] [address] 29 Mar, 2014 [facility] [address] [id number] [address] [place] [address], [place] [address] 29 Mar, 2014 [facility] [address] [id number] [address] [place] [address], [place] [address] Mar, [facility] [address] [id number] [address] [place] [address], [place] [address] 2014 [facility] [address] [id number] [address] [place] [address], [place] [address] Mar, [facility] [address] [id number] [address] [place] [address], [place] [address] Mar, [facility] [address] [id number] [address] [place] [address], [place] [address] 29 Feb, 2014 [facility] [address] [id number] [address] [place] [address], [place] [address] 29 Feb, 2014 [facility] [address] [id number] [address] [place] [address], [place] [address] 17 Feb, 2014 [facility] [address] [id number] [address] [place] [address], [place] [address] 16 Feb, 2014 [facility] [address] [id number] [address] [place] [address], [place] [address] 16 Feb, 2014 [facility] [address] [id number] [address] [place] [address], [place] [address] Feb, [facility] [address] [id number] [address] [place] [address], [place] [address] 03 Feb, 2014 [facility] [address] [id number] [address] [place] [address], [place] [address] Jan, [facility] [address] [id number] [address] [place] [address], [place] [address] Jan, [facility] [address] [id number] [address] [place] [address], [place] [address] Jan, [facility] [address] [id number] [address] [place] [address], [place] [address] Jan, [facility] [address] [id number] [address] [place] [address], [place] [address] Dec, [facility] [address] [id number] [address] [address] Dec, [facility] [address] [facility] [id number] [address] [place] [address] Dec, [facility] [address] [facility] [id number] [address] [place] [address] Dec, IMMUNIZATIONS No Known Immunizations SOCIAL HISTORY [...]
--- OUTSIDE RECORDS SUMMARY | 2019-10-29 01:14 | XMS REPORT ---
Author Author RICOVeronica Ferrell ANGE Organization [facility] Address [address] [place] [address] Care Team Providers Care Donor Floor Technician Name Role Phone ANGE REYNOSO Unavailable PROBLEMS Type Condition ICD9-CM Code ZUI89-PX Code Onset Dates Condition S tatus SNOMED Code Problem Bilateral low back pain without sciatica M54.5 Active 431259030 Problem Anxiety F41.9 Active 06841127 Problem Chronic pain syndrome G89.4 Active 182794021 Problem Thrush B37.0 Active 88990383 Problem Type 2 diabetes mellitus with complication E11.8 Active 87366936 Problem COPD with acute exacerbation J44.1 A ctive 622980347 Problem History of long-term use of multiple prescription drugs Z92.29 Active 877832280 Problem Essential hypertension I10 Active 49185270 Problem Mixed hyperlipidemia E78.2 Active 516845470 Problem Long-term use of high-risk medication Z79.899 Active 515816309 Problem Chronic obstructive pulmonary disease, unspecified COPD ty pe J44.9 Active 55601061 ALLERGIES No Information ENCOUNTERS Encounter Location Date Diagnosis [facility] [address] [id number] [address] [place] [phone] Nov, [facility] [address] [id number] [address] [place] [phone] October, Scabies B86 [facility] [address] [id number] [address] [place] [id number] October, Acute upper respiratory infe ction, unspecified J06.9 [facility] [address] [id number] [address] [place] [phone] October, Dysuria R30.0 and Coughing R 05 [facility] [id number] [place] [id number] Aug, [facility] [address] [id number] [address] [place] [phone] Jun, [facility] [address] [id number] [address] [place] [phone] Jun, [facility] [address] [id number] [address] [place] [phone] Jun, [facility] [address] [id number] [address] [place] [phone] May, [facility] [address] [id number] [address] [place] [phone] May, [facility] [address] [facility] [id number] [address] [place] [phone] May, [facility] [address] [facility] [id number] [address] [place] [phone] Apr, Type 2 diabetes mellitus wit h complication E11.8 ; Chronic pain syndrome G89.4 ; Bilateral low back pain without sciatica M54.5 ; Essential hypertension I10 ; Anxiety F41.9 ; COPD with acute exacerbation J44.1 ; Pain of left hand M79.642 and Pain in right hand M79.641 [facility] [address] [id number] [address] [place] [id number] Apr, [facility] [address] [id number] [address] [place] [id number] Mar, [facility] [address] [id number] [address] [place] [phone] Mar, [facility] [address] [id number] [address] [place] [phone] Mar, [facility] [address] [facility] [id number] [address] [place] [phone] Feb, [facility] [address] [facility] [id number] [address] [place] [phone] Feb, [facility] [address] [id number] [address] [place] [id number] Jan, Type 2 diabetes mellitus wit h complication E11.8 ; Chronic pain syndrome G89.4 ; Bilateral low back pain without sciatica M54.5 ; Essential hypertension I10 ; Anxiety F41.9 ; Chronic obstructive pulmonary disease, unspecified COPD type J44.9 and Thrush B37.0 [facility] [address] [id number] [address] [place] [phone] Jan, [facility] [address] [id number] [address] [place] [id number] Dec, [facility] [address] [id number] [address] [place] [phone] Dec, [facility] [address] [id number] [address] [place] [phone] Nov, [facility] [address] [id number] [address] [place] [phone] Nov, [facility] [address] [id number] [address] [place] [id number] Nov, [facility] [address] [facility] [id number] [address] [place] [id number] Nov, Chest pain, unspecified type R07.9 and COPD exacerbation J44.1 [facility] [address] [id number] [address] [place] [id number] October, [facility] [address] [facility] [id number] [address] [place] [phone] Sep, [facility] [address] [id number] [address] [place] [id number] Sep, Type 2 diabetes mellitus wit h complication E11.8 ; Chronic pain syndrome G89.4 ; Bilateral low back pain without sciatica M54.5 ; Essential hypertension I10 ; Anxiety F41.9 and COPD exacerbation J44.1 [facility] [address] [facility] [id number] [address] [place] [id number] Aug, [facility] [address] [facility] [id number] [address] [place] [phone] Aug, [facility] [address] [facility] [id number] [address] [place] [phone] Aug, Chronic pain syndrome G89.4 [facility] [address] [facility] [id number] [address] [place] [phone] Aug, [facility] [id number] [place] [phone] Aug, [facility] [id number] [place] [address] Jul, Chronic pain syndrome G89.4 and Anxiety F41.9 [facility] [address] [id number] [address] [place] [phone] Jul, [facility] [address] [phone] Jun, Bilateral low back pain with out sciatica M54.5 ; Chronic pain syndrome G89.4 ; Anxiety F41.9 ; History of long-term use of multiple prescription drugs Z92.29 ; Type 2 diabetes mellitus with complication E11.8 ; Long-term use of high-risk medication Z79.899 ; Mixed hyperlipidemia E78.2 and Essential hypertension I10 [facility] [address] [id number] [address] [place] [phone] Jun, [facility] [address] [id number] [address] [place] [phone] Jun, [facility] [address] [facility] [id number] [address] [place] [phone] May, [facility] [address] [id number] [address] [place] [phone] Apr, [facility] [address] [id number] [address] [place] [phone] Mar, [facility] [address] [id number] [address] [place] [phone] Mar, Bilateral low back pain with out sciatica M54.5 ; History of long- term use of multiple prescription drugs Z92.29 ; Anxiety F41.9 ; Chronic pain syndrome G89.4 ; Type 2 diabetes mellitus with complication E11.8 ; Long-term use of high-risk medication Z79.899 and Mixed hyperlipidemia E78.2 [facility] [address] [id number] [address] [place] [phone] Mar, [facility] [address] [id number] [address] [place] [phone] Mar, Chronic pain syndrome G89.4 [facility] [address] [id number] [address] [place] [phone] Mar, [facility] [address] [id number] [address] [place] [id number] Feb, [facility] [address] [id number] [address] [place] [phone] Feb, [facility] [address] [id number] [address] [place] [phone] Feb, [facility] [address] [id number] [address] [place] [phone] Feb, [facility] [address] [id number] [address] [place] [phone] Jan, [facility] [address] [facility] [id number] [address] [place] [phone] Jan, [facility] [address] [id number] [address] [place] [phone] Dec, [facility] [address] [id number] [address] [place] [phone] Dec, Lumbago 724.2 ; Diabetes thony litus without mention of complication, type II or unspecified type, not stated as uncontrolled 250.00 ; Essential hypertension, benign 401.1 ; Anxiety state, unspecified 300.00 ; Chronic pain 338.29 ; COPD with acute exacerbation 491.21 ; Tobacco abuse 305.1 ; Depression 311 and Hyperlipidemia 272.4 [facility] [address] [id number] [address] [place] [phone] Dec, [facility] [address] [facility] [id number] [address] [place] [phone] Nov, Lumbago 724.2 ; Diabetes thony litus without mention of complication, type II or unspecified type, not stated as uncontrolled 250.00 ; Essential hypertension, benign 401.1 ; Anxiety state, unspecified 300.00 ; Chronic pain 338.29 ; COPD with acute exacerbation 491.21 ; Tobacco abuse 305.1 and Depression 311 [facility] [address] [id number] [address] [place] [phone] Nov, [facility] [address] [id number] [address] [place] [phone] Nov, [facility] [address] [id number] [address] [place] [phone] Nov, [facility] [address] [id number] [address] [place] [phone] October, [facility] [address] [id number] [address] [place] [id number] October, [facility] [address] [id number] [address] [place] [id number] October, [facility] [address] [id number] [address] [place] [phone] October, [facility] [address] [id number] [address] [place] [phone] October, [facility] [address] [id number] [address] [place] [id number] Sep, [facility] [address] [facility] [id number] [address] [place] [phone] Sep, [facility] [address] [id number] [address] [place] [address], [place] [address] 13 Sep, 2014 [facility] [address] [id number] [address] [place] [address], [place] [address] 23 Aug, 2014 [facility] [address] [id number] [address] [place] [address], [place] [address] 23 Aug, 2014 [facility] [address] [id number] [address] [place] [address], [place] [address] 20 Aug, 2014 [facility] [address] [id number] [address] [place] [address], [place] [address] 20 Aug, 2014 [facility] [address] [id number] [address] [place] [address], [place] [address] 19 Aug, 2014 [facility] [address] [id number] [address] [place] [address], [place] [address] 19 Aug, 2014 [facility] [address] [id number] [address] [place] [address], [place] [address] 16 Aug, 2014 [facility] [address] [id number] [address] [place] [address], [place] [address] 16 Aug, 2014 [facility] [address] [id number] [address] [place] [address], [place] [address] 16 Aug, 2014 [facility] [address] [id number] [address] [place] [address], [place] [address] 16 Aug, 2014 [facility] [address] [id number] [address] [place] [address], [place] [address] 13 Aug, 2014 [facility] [address] [id number] [address] [place] [address], [place] [address] 13 Aug, 2014 [facility] [address] [id number] [address] [place] [address], [place] [address] 24 Jul, 2014 [facility] [address] [id number] [address] [place] [address], [place] [address] 23 Jul, 2014 [facility] [address] [id number] [address] [place] [address], [place] [address] Jul, [facility] [address] [id number] [address] [place] [address], [place] [address] Jul, [facility] [address] [id number] [address] [place] [address], [place] [address] Jul, [facility] [address] [id number] [address] [place] [address], [place] [address] Jul, [facility] [address] [id number] [address] [place] [address], [place] [address] Jul, [facility] [address] [id number] [address] [place] [address], [place] [address] Jun, [facility] [address] [id number] [address] [place] [address], [place] [address] Jun, [facility] [address] [id number] [address] [place] [address], [place] [address] Jun, [facility] [address] [id number] [address] [place] [address], [place] [address] Jun, [facility] [address] [id number] [address] [place] [address], [place] [address] Jun, [facility] [address] [id number] [address] [place] [address], [place] [address] Jun, [facility] [address] [id number] [address] [place] [address], [place] [address] Jun, [facility] [address] [id number] [address] [place] [address], [place] [address] Jun, [facility] [address] [id number] [address] [place] [address], [place] [address] Jun, [facility] [address] [id number] [address] [place] [address], [place] [address] May, [facility] [address] [id number] [address] [place] [address], [place] [address] May, [facility] [address] [id number] [address] [place] [address], [place] [address] 30 May, 2014 [facility] [address] [id number] [address] [place] [address], [place] [address] 30 May, 2014 [facility] [address] [id number] [address] [place] [address], [place] [address] 17 May, 2014 [facility] [address] [id number] [address] [place] [address], [place] [address] 15 May, 2014 [facility] [address] [id number] [address] [place] [address], [place] [address] 15 May, 2014 [facility] [address] [id number] [address] [place] [address], [place] [address] 12 May, 2014 [facility] [address] [id number] [address] [place] [address], [place] [address] May, [facility] [address] [id number] [address] [place] [address], [place] [address] May, [facility] [address] [id number] [address] [place] [address], [place] [address] May, [facility] [address] [id number] [address] [place] [address], [place] [address] Apr, [facility] [address] [id number] [address] [place] [address], [place] [address] Apr, [facility] [address] [id number] [address] [place] [address], [place] [address] Apr, [facility] [address] [id number] [address] [place] [address], [place] [address] Apr, [facility] [address] [id number] [address] [place] [address], [place] [address] 29 Mar, 2014 [facility] [address] [id number] [address] [place] [address], [place] [address] 29 Mar, 2014 [facility] [address] [id number] [address] [place] [address], [place] [address] Mar, [facility] [address] [id number] [address] [place] [address], [place] [address] 2014 [facility] [address] [id number] [address] [place] [address], [place] [address] Mar, [facility] [address] [id number] [address] [place] [address], [place] [address] Mar, [facility] [address] [id number] [address] [place] [address], [place] [address] 29 Feb, 2014 [facility] [address] [id number] [address] [place] [address], [place] [address] 29 Feb, 2014 [facility] [address] [id number] [address] [place] [address], [place] [address] 17 Feb, 2014 [facility] [address] [id number] [address] [place] [address], [place] [address] 16 Feb, 2014 [facility] [address] [id number] [address] [place] [address], [place] [address] 16 Feb, 2014 [facility] [address] [id number] [address] [place] [address], [place] [address] Feb, [facility] [address] [id number] [address] [place] [address], [place] [address] 03 Feb, 2014 [facility] [address] [id number] [address] [place] [address], [place] [address] Jan, [facility] [address] [id number] [address] [place] [address], [place] [address] Jan, [facility] [address] [id number] [address] [place] [address], [place] [address] Jan, [facility] [address] [id number] [address] [place] [address], [place] [address] Jan, [facility] [address] [id number] [address] [place] [address], [place] [address] Dec, [facility] [address] [id number] [place] [address] Dec, [facility] [address] [facility] [id number] [address] [place] [id number] Dec, [facility] [address] [facility] [id number] [address] [place] [id number] Dec, IMMUNIZATIONS No Known Immunizations SOCIAL HISTORY [...]
--- OUTSIDE RECORDS SUMMARY | 2019-10-29 01:14 | XMS REPORT ---
Author Author RICOVeronica Ferrell ANGE Organization [facility] Address [address] [place] [address] Care Team Providers Care Wing Coverer Name Role Phone ANGE REYNOSO Unavailable PROBLEMS Type Condition ICD9-CM Code OIP43-NT Code Onset Dates Condition S tatus SNOMED Code Problem Bilateral low back pain without sciatica M54.5 Active 918619532 Problem Anxiety F41.9 Active 47554379 Problem Chronic pain syndrome G89.4 Active 265739320 Problem Thrush B37.0 Active 12071427 Problem Type 2 diabetes mellitus with complication E11.8 Active 09154919 Problem COPD with acute exacerbation J44.1 A ctive 691519960 Problem History of long-term use of multiple prescription drugs Z92.29 Active 064918560 Problem Essential hypertension I10 Active 67746094 Problem Mixed hyperlipidemia E78.2 Active 577676263 Problem Long-term use of high-risk medication Z79.899 Active 818662687 Problem Chronic obstructive pulmonary disease, unspecified COPD ty pe J44.9 Active 38726200 ALLERGIES No Information ENCOUNTERS Encounter Location Date Diagnosis [facility] [address] [id number] [address] [place] [phone] Nov, [facility] [id number] [place] [id number] October, Scabies B86 [facility] [address] [id number] [address] [place] [phone] October, Acute upper respiratory infe ction, unspecified J06.9 [facility] [address] [id number] [address] [place] [phone] October, Dysuria R30.0 and Coughing R 05 [facility] [address] [id number] [address] [place] [phone] Aug, [facility] [address] [id number] [address] [place] [phone] Jun, [facility] [address] [id number] [address] [place] [phone] Jun, [facility] [address] [id number] [address] [place] [phone] Jun, [facility] [address] [id number] [address] [place] [phone] May, [facility] [address] [id number] [address] [place] [phone] May, [facility] [address] [facility] [id number] [address] [place] [phone] May, [facility] [address] [facility] [id number] [address] [place] [phone] Apr, Type 2 diabetes mellitus wit h complication E11.8 ; Chronic pain syndrome G89.4 ; Bilateral low back pain without sciatica M54.5 ; Essential hypertension I10 ; Anxiety F41.9 ; COPD with acute exacerbation J44.1 ; Pain of left hand M79.642 and Pain in right hand M79.641 [facility] [address] [id number] [address] [place] [id number] Apr, [facility] [address] [id number] [address] [place] [id number] Mar, [facility] [address] [id number] [address] [place] [id number] Mar, [facility] [address] [id number] [address] [place] [id number] Mar, [facility] [address] [facility] [id number] [address] [place] [phone] Feb, [facility] [address] [facility] [id number] [address] [place] [phone] Feb, [facility] [address] [id number] [address] [place] [id number] Jan, Type 2 diabetes mellitus wit h complication E11.8 ; Chronic pain syndrome G89.4 ; Bilateral low back pain without sciatica M54.5 ; Essential hypertension I10 ; Anxiety F41.9 ; Chronic obstructive pulmonary disease, unspecified COPD type J44.9 and Thrush B37.0 [facility] [address] [id number] [address] [place] [phone] Jan, [facility] [address] [id number] [address] [place] [phone] Dec, [facility] [address] [id number] [address] [place] [phone] Dec, [facility] [address] [id number] [address] [place] [phone] Nov, [facility] [address] [id number] [address] [place] [phone] Nov, [facility] [address] [id number] [address] [place] [phone] Nov, [facility] [address] [facility] [id number] [address] [place] [phone] Nov, Chest pain, unspecified type R07.9 and COPD exacerbation J44.1 [facility] [address] [id number] [address] [place] [phone] October, [facility] [address] [facility] [id number] [address] [place] [phone] Sep, [facility] [address] [id number] [address] [place] [id number] Sep, Type 2 diabetes mellitus wit h complication E11.8 ; Chronic pain syndrome G89.4 ; Bilateral low back pain without sciatica M54.5 ; Essential hypertension I10 ; Anxiety F41.9 and COPD exacerbation J44.1 [facility] [address] [facility] [id number] [address] [place] [phone] Aug, [facility] [address] [facility] [id number] [address] [place] [phone] Aug, [facility] [address] [facility] [id number] [address] [place] [phone] Aug, Chronic pain syndrome G89.4 [facility] [address] [facility] [id number] [address] [place] [phone] Aug, [facility] [id number] [place] [phone] Aug, [facility] [id number] [place] [phone] Jul, Chronic pain syndrome G89.4 and Anxiety F41.9 [facility] [address] [id number] [address] [place] [phone] Jul, [facility] [address] [address] Jun, Bilateral low back pain with out sciatica M54.5 ; Chronic pain syndrome G89.4 ; Anxiety F41.9 ; History of long-term use of multiple prescription drugs Z92.29 ; Type 2 diabetes mellitus with complication E11.8 ; Long-term use of high-risk medication Z79.899 ; Mixed hyperlipidemia E78.2 and Essential hypertension I10 [facility] [address] [id number] [address] [place] [phone] Jun, [facility] [address] [id number] [address] [place] [phone] Jun, [facility] [address] [facility] [id number] [address] [place] [phone] May, [facility] [address] [id number] [address] [place] [phone] Apr, [facility] [address] [id number] [address] [place] [phone] Mar, [facility] [address] [id number] [address] [place] [phone] Mar, Bilateral low back pain with out sciatica M54.5 ; History of long- term use of multiple prescription drugs Z92.29 ; Anxiety F41.9 ; Chronic pain syndrome G89.4 ; Type 2 diabetes mellitus with complication E11.8 ; Long-term use of high-risk medication Z79.899 and Mixed hyperlipidemia E78.2 [facility] [address] [id number] [address] [place] [phone] Mar, [facility] [address] [id number] [address] [place] [phone] Mar, Chronic pain syndrome G89.4 [facility] [address] [id number] [address] [place] [phone] Mar, [facility] [address] [id number] [address] [place] [phone] Feb, [facility] [address] [id number] [address] [place] [phone] Feb, [facility] [address] [id number] [address] [place] [phone] Feb, [facility] [address] [id number] [address] [place] [phone] Feb, [facility] [address] [id number] [address] [place] [phone] Jan, [facility] [address] [facility] [id number] [address] [place] [phone] Jan, [facility] [address] [id number] [address] [place] [phone] Dec, [facility] [address] [id number] [address] [place] [id number] Dec, Lumbago 724.2 ; Diabetes thony litus without mention of complication, type II or unspecified type, not stated as uncontrolled 250.00 ; Essential hypertension, benign 401.1 ; Anxiety state, unspecified 300.00 ; Chronic pain 338.29 ; COPD with acute exacerbation 491.21 ; Tobacco abuse 305.1 ; Depression 311 and Hyperlipidemia 272.4 [facility] [address] [id number] [address] [place] [phone] Dec, [facility] [address] [facility] [id number] [address] [place] [id number] Nov, Lumbago 724.2 ; Diabetes thony litus without mention of complication, type II or unspecified type, not stated as uncontrolled 250.00 ; Essential hypertension, benign 401.1 ; Anxiety state, unspecified 300.00 ; Chronic pain 338.29 ; COPD with acute exacerbation 491.21 ; Tobacco abuse 305.1 and Depression 311 [facility] [address] [id number] [address] [place] [phone] Nov, [facility] [address] [id number] [address] [place] [id number] Nov, [facility] [address] [id number] [address] [place] [phone] Nov, [facility] [address] [id number] [address] [place] [phone] October, [facility] [address] [id number] [address] [place] [id number] October, [facility] [address] [id number] [address] [place] [phone] October, [facility] [address] [id number] [address] [place] [phone] October, [facility] [address] [id number] [address] [place] [phone] October, [facility] [address] [id number] [address] [place] [phone] Sep, [facility] [address] [facility] [id number] [address] [place] [phone] Sep, [facility] [address] [id number] [address] [place] [address], [place] [address] 13 Sep, 2014 [facility] [address] [id number] [address] [place] [address], [place] [id number] 23 Aug, 2014 [facility] [address] [id number] [address] [place] [address], [place] [id number] 23 Aug, 2014 [facility] [address] [id number] [address] [place] [address], [place] [id number] 20 Aug, 2014 [facility] [address] [id number] [address] [place] [address], [place] [id number] 20 Aug, 2014 [facility] [address] [id number] [address] [place] [address], [place] [phone] 19 Aug, 2014 [facility] [address] [id number] [address] [place] [address], [place] [id number] 19 Aug, 2014 [facility] [address] [id number] [address] [place] [address], [place] [id number] 16 Aug, 2014 [facility] [address] [id number] [address] [place] [address], [place] [id number] 16 Aug, 2014 [facility] [address] [id number] [address] [place] [address], [place] [id number] 16 Aug, 2014 [facility] [address] [id number] [address] [place] [address], [place] [address] 16 Aug, 2014 [facility] [address] [id number] [address] [place] [address], [place] [id number] 13 Aug, 2014 [facility] [address] [id number] [address] [place] [address], [place] [id number] 13 Aug, 2014 [facility] [address] [id number] [address] [place] [address], [place] [id number] 24 Jul, 2014 [facility] [address] [id number] [address] [place] [address], [place] [id number] 23 Jul, 2014 [facility] [address] [id number] [address] [place] [address], [place] [id number] Jul, [facility] [address] [id number] [address] [place] [address], [place] [id number] Jul, [facility] [address] [id number] [address] [place] [address], [place] [phone] Jul, [facility] [address] [id number] [address] [place] [address], [place] [id number] Jul, [facility] [address] [id number] [address] [place] [address], [place] [id number] Jul, [facility] [address] [id number] [address] [place] [address], [place] [id number] Jun, [facility] [address] [id number] [address] [place] [address], [place] [id number] Jun, [facility] [address] [id number] [address] [place] [address], [place] [id number] Jun, [facility] [address] [id number] [address] [place] [address], [place] [id number] Jun, [facility] [address] [id number] [address] [place] [address], [place] [id number] Jun, [facility] [address] [id number] [address] [place] [address], [place] [address] Jun, [facility] [address] [id number] [address] [place] [address], [place] [address] Jun, [facility] [address] [id number] [address] [place] [address], [place] [phone] Jun, [facility] [address] [id number] [address] [place] [address], [place] [address] Jun, [facility] [address] [id number] [address] [place] [address], [place] [id number] May, [facility] [address] [id number] [address] [place] [address], [place] [address] May, [facility] [address] [id number] [address] [place] [address], [place] [address] 30 May, 2014 [facility] [address] [id number] [address] [place] [address], [place] [id number] 30 May, 2014 [facility] [address] [id number] [address] [place] [address], [place] [id number] 17 May, 2014 [facility] [address] [id number] [address] [place] [address], [place] [address] 15 May, 2014 [facility] [address] [id number] [address] [place] [address], [place] [address] 15 May, 2014 [facility] [address] [id number] [address] [place] [address], [place] [address] 12 May, 2014 [facility] [address] [id number] [address] [place] [address], [place] [phone] May, [facility] [address] [id number] [address] [place] [address], [place] [address] May, [facility] [address] [id number] [address] [place] [address], [place] [id number] May, [facility] [address] [id number] [address] [place] [address], [place] [address] Apr, [facility] [address] [id number] [address] [place] [address], [place] [id number] Apr, [facility] [address] [id number] [address] [place] [address], [place] [address] Apr, [facility] [address] [id number] [address] [place] [address], [place] [address] Apr, [facility] [address] [id number] [address] [place] [address], [place] [address] 29 Mar, 2014 [facility] [address] [id number] [address] [place] [address], [place] [address] 29 Mar, 2014 [facility] [address] [id number] [address] [place] [address], [place] [address] Mar, [facility] [address] [id number] [address] [place] [address], [place] [phone] 2014 [facility] [address] [id number] [address] [place] [address], [place] [address] Mar, [facility] [address] [id number] [address] [place] [address], [place] [address] Mar, [facility] [address] [id number] [address] [place] [address], [place] [id number] 29 Feb, 2014 [facility] [address] [id number] [address] [place] [address], [place] [id number] 29 Feb, 2014 [facility] [address] [id number] [address] [place] [address], [place] [id number] 17 Feb, 2014 [facility] [address] [id number] [address] [place] [address], [place] [id number] 16 Feb, 2014 [facility] [address] [id number] [address] [place] [address], [place] [id number] 16 Feb, 2014 [facility] [address] [id number] [address] [place] [address], [place] [address] Feb, [facility] [address] [id number] [address] [place] [address], [place] [id number] 03 Feb, 2014 [facility] [address] [id number] [address] [place] [address], [place] [address] Jan, [facility] [address] [id number] [address] [place] [address], [place] [address] Jan, [facility] [address] [id number] [address] [place] [address], [place] [address] Jan, [facility] [address] [id number] [address] [place] [address], [place] [address] Jan, [facility] [address] [id number] [address] [place] [address], [place] [address] Dec, [facility] [address] [id number] [address] [address] Dec, [facility] [address] [facility] [id number] [address] [place] [phone] Dec, [facility] [address] [facility] [id number] [address] [place] [id number] Dec, IMMUNIZATIONS No Known Immunizations SOCIAL HISTORY [...]
--- OUTSIDE RECORDS SUMMARY | 2019-10-29 01:14 | XMS REPORT ---
Author Author RICOeVronica Ferrell ANGE Organization [facility] Address [address] [place] [address] Care Team Providers Care Herbicide Sprayer Name Role Phone ANGE REYNOSO Unavailable PROBLEMS Type Condition ICD9-CM Code AZT54-DU Code Onset Dates Condition S tatus SNOMED Code Problem Bilateral low back pain without sciatica M54.5 Active 774287932 Problem Anxiety F41.9 Active 99464574 Problem Chronic pain syndrome G89.4 Active 055717759 Problem Thrush B37.0 Active 69070622 Problem Type 2 diabetes mellitus with complication E11.8 Active 65909840 Problem COPD with acute exacerbation J44.1 A ctive 452743163 Problem History of long-term use of multiple prescription drugs Z92.29 Active 132265876 Problem Essential hypertension I10 Active 67172689 Problem Mixed hyperlipidemia E78.2 Active 750940280 Problem Long-term use of high-risk medication Z79.899 Active 191229197 Problem Chronic obstructive pulmonary disease, unspecified COPD ty pe J44.9 Active 87318156 ALLERGIES No Information ENCOUNTERS Encounter Location Date Diagnosis [facility] [address] [id number] [address] [place] [address] Nov, [facility] [address] [id number] [address] [place] [address] October, Scabies B86 [facility] [address] [id number] [address] [place] [phone] October, Acute upper respiratory infe ction, unspecified J06.9 [facility] [address] [id number] [address] [place] [address] October, Dysuria R30.0 and Coughing R 05 [facility] [id number] [place] [address] Aug, [facility] [address] [id number] [address] [place] [phone] Jun, [facility] [address] [id number] [address] [place] [address] Jun, [facility] [address] [id number] [address] [place] [phone] Jun, [facility] [address] [id number] [address] [place] [address] May, [facility] [address] [id number] [address] [place] [address] May, [facility] [address] [facility] [id number] [address] [place] [phone] May, [facility] [address] [facility] [id number] [address] [place] [address] Apr, Type 2 diabetes mellitus wit h complication E11.8 ; Chronic pain syndrome G89.4 ; Bilateral low back pain without sciatica M54.5 ; Essential hypertension I10 ; Anxiety F41.9 ; COPD with acute exacerbation J44.1 ; Pain of left hand M79.642 and Pain in right hand M79.641 [facility] [address] [id number] [address] [place] [address] Apr, [facility] [address] [id number] [address] [place] [address] Mar, [facility] [address] [id number] [address] [place] [address] Mar, [facility] [address] [id number] [address] [place] [address] Mar, [facility] [address] [facility] [id number] [address] [place] [phone] Feb, [facility] [address] [facility] [id number] [address] [place] [address] Feb, [facility] [address] [id number] [address] [place] [id number] Jan, Type 2 diabetes mellitus wit h complication E11.8 ; Chronic pain syndrome G89.4 ; Bilateral low back pain without sciatica M54.5 ; Essential hypertension I10 ; Anxiety F41.9 ; Chronic obstructive pulmonary disease, unspecified COPD type J44.9 and Thrush B37.0 [facility] [address] [id number] [address] [place] [phone] Jan, [facility] [address] [id number] [address] [place] [phone] Dec, [facility] [address] [id number] [address] [place] [address] Dec, [facility] [address] [id number] [address] [place] [phone] Nov, [facility] [address] [id number] [address] [place] [address] Nov, [facility] [address] [id number] [address] [place] [address] Nov, [facility] [address] [facility] [id number] [address] [place] [address] Nov, Chest pain, unspecified type R07.9 and COPD exacerbation J44.1 [facility] [address] [id number] [address] [place] [phone] October, [facility] [address] [facility] [id number] [address] [place] [phone] Sep, [facility] [address] [id number] [address] [place] [address] Sep, Type 2 diabetes mellitus wit h complication E11.8 ; Chronic pain syndrome G89.4 ; Bilateral low back pain without sciatica M54.5 ; Essential hypertension I10 ; Anxiety F41.9 and COPD exacerbation J44.1 [facility] [address] [facility] [id number] [address] [place] [phone] Aug, [facility] [address] [facility] [id number] [address] [place] [phone] Aug, [facility] [address] [facility] [id number] [address] [place] [address] Aug, Chronic pain syndrome G89.4 [facility] [address] [facility] [id number] [address] [place] [phone] Aug, [facility] [id number] [place] [address] Aug, [facility] [id number] [place] [address] Jul, Chronic pain syndrome G89.4 and Anxiety F41.9 [facility] [address] [id number] [address] [place] [address] Jul, [facility] [address] [address] Jun, Bilateral low back pain with out sciatica M54.5 ; Chronic pain syndrome G89.4 ; Anxiety F41.9 ; History of long-term use of multiple prescription drugs Z92.29 ; Type 2 diabetes mellitus with complication E11.8 ; Long-term use of high-risk medication Z79.899 ; Mixed hyperlipidemia E78.2 and Essential hypertension I10 [facility] [address] [id number] [address] [place] [phone] Jun, [facility] [address] [id number] [address] [place] [phone] Jun, [facility] [address] [facility] [id number] [address] [place] [address] May, [facility] [address] [id number] [address] [place] [phone] Apr, [facility] [address] [id number] [address] [place] [phone] Mar, [facility] [address] [id number] [address] [place] [phone] Mar, Bilateral low back pain with out sciatica M54.5 ; History of long- term use of multiple prescription drugs Z92.29 ; Anxiety F41.9 ; Chronic pain syndrome G89.4 ; Type 2 diabetes mellitus with complication E11.8 ; Long-term use of high-risk medication Z79.899 and Mixed hyperlipidemia E78.2 [facility] [address] [id number] [address] [place] [id number] Mar, [facility] [address] [id number] [address] [place] [phone] Mar, Chronic pain syndrome G89.4 [facility] [address] [id number] [address] [place] [phone] Mar, [facility] [address] [id number] [address] [place] [phone] Feb, [facility] [address] [id number] [address] [place] [phone] Feb, [facility] [address] [id number] [address] [place] [phone] Feb, [facility] [address] [id number] [address] [place] [phone] Feb, [facility] [address] [id number] [address] [place] [address] Jan, [facility] [address] [facility] [id number] [address] [place] [phone] Jan, [facility] [address] [id number] [address] [place] [phone] Dec, [facility] [address] [id number] [address] [place] [phone] Dec, Lumbago 724.2 ; Diabetes thony litus without mention of complication, type II or unspecified type, not stated as uncontrolled 250.00 ; Essential hypertension, benign 401.1 ; Anxiety state, unspecified 300.00 ; Chronic pain 338.29 ; COPD with acute exacerbation 491.21 ; Tobacco abuse 305.1 ; Depression 311 and Hyperlipidemia 272.4 [facility] [address] [id number] [address] [place] [id number] Dec, [facility] [address] [facility] [id number] [address] [place] [address] Nov, Lumbago 724.2 ; Diabetes thony litus without mention of complication, type II or unspecified type, not stated as uncontrolled 250.00 ; Essential hypertension, benign 401.1 ; Anxiety state, unspecified 300.00 ; Chronic pain 338.29 ; COPD with acute exacerbation 491.21 ; Tobacco abuse 305.1 and Depression 311 [facility] [address] [id number] [address] [place] [phone] Nov, [facility] [address] [id number] [address] [place] [phone] Nov, [facility] [address] [id number] [address] [place] [phone] Nov, [facility] [address] [id number] [address] [place] [phone] October, [facility] [address] [id number] [address] [place] [phone] October, [facility] [address] [id number] [address] [place] [phone] October, [facility] [address] [id number] [address] [place] [phone] October, [facility] [address] [id number] [address] [place] [phone] October, [facility] [address] [id number] [address] [place] [phone] Sep, [facility] [address] [facility] [id number] [address] [place] [phone] Sep, [facility] [address] [id number] [address] [place] [address], [place] [address] 13 Sep, 2014 [facility] [address] [id number] [address] [place] [address], [place] [address] 23 Aug, 2014 [facility] [address] [id number] [address] [place] [address], [place] [address] 23 Aug, 2014 [facility] [address] [id number] [address] [place] [address], [place] [address] 20 Aug, 2014 [facility] [address] [id number] [address] [place] [address], [place] [address] 20 Aug, 2014 [facility] [address] [id number] [address] [place] [address], [place] [address] 19 Aug, 2014 [facility] [address] [id number] [address] [place] [address], [place] [address] 19 Aug, 2014 [facility] [address] [id number] [address] [place] [address], [place] [address] 16 Aug, 2014 [facility] [address] [id number] [address] [place] [address], [place] [address] 16 Aug, 2014 [facility] [address] [id number] [address] [place] [address], [place] [address] 16 Aug, 2014 [facility] [address] [id number] [address] [place] [address], [place] [address] 16 Aug, 2014 [facility] [address] [id number] [address] [place] [address], [place] [address] 13 Aug, 2014 [facility] [address] [id number] [address] [place] [address], [place] [address] 13 Aug, 2014 [facility] [address] [id number] [address] [place] [address], [place] [address] 24 Jul, 2014 [facility] [address] [id number] [address] [place] [address], [place] [address] 23 Jul, 2014 [facility] [address] [id number] [address] [place] [address], [place] [address] Jul, [facility] [address] [id number] [address] [place] [address], [place] [address] Jul, [facility] [address] [id number] [address] [place] [address], [place] [address] Jul, [facility] [address] [id number] [address] [place] [address], [place] [address] Jul, [facility] [address] [id number] [address] [place] [address], [place] [address] Jul, [facility] [address] [id number] [address] [place] [address], [place] [address] Jun, [facility] [address] [id number] [address] [place] [address], [place] [address] Jun, [facility] [address] [id number] [address] [place] [address], [place] [address] Jun, [facility] [address] [id number] [address] [place] [address], [place] [address] Jun, [facility] [address] [id number] [address] [place] [address], [place] [address] Jun, [facility] [address] [id number] [address] [place] [address], [place] [address] Jun, [facility] [address] [id number] [address] [place] [address], [place] [address] Jun, [facility] [address] [id number] [address] [place] [address], [place] [address] Jun, [facility] [address] [id number] [address] [place] [address], [place] [address] Jun, [facility] [address] [id number] [address] [place] [address], [place] [address] May, [facility] [address] [id number] [address] [place] [address], [place] [address] May, [facility] [address] [id number] [address] [place] [address], [place] [address] 30 May, 2014 [facility] [address] [id number] [address] [place] [address], [place] [address] 30 May, 2014 [facility] [address] [id number] [address] [place] [address], [place] [address] 17 May, 2014 [facility] [address] [id number] [address] [place] [address], [place] [address] 15 May, 2014 [facility] [address] [id number] [address] [place] [address], [place] [address] 15 May, 2014 [facility] [address] [id number] [address] [place] [address], [place] [address] 12 May, 2014 [facility] [address] [id number] [address] [place] [address], [place] [address] May, [facility] [address] [id number] [address] [place] [address], [place] [address] May, [facility] [address] [id number] [address] [place] [address], [place] [address] May, [facility] [address] [id number] [address] [place] [address], [place] [address] Apr, [facility] [address] [id number] [address] [place] [address], [place] [address] Apr, [facility] [address] [id number] [address] [place] [address], [place] [address] Apr, [facility] [address] [id number] [address] [place] [address], [place] [address] Apr, [facility] [address] [id number] [address] [place] [address], [place] [address] 29 Mar, 2014 [facility] [address] [id number] [address] [place] [address], [place] [address] 29 Mar, 2014 [facility] [address] [id number] [address] [place] [address], [place] [address] Mar, [facility] [address] [id number] [address] [place] [address], [place] [address] 2014 [facility] [address] [id number] [address] [place] [address], [place] [address] Mar, [facility] [address] [id number] [address] [place] [address], [place] [address] Mar, [facility] [address] [id number] [address] [place] [address], [place] [address] 29 Feb, 2014 [facility] [address] [id number] [address] [place] [address], [place] [address] 29 Feb, 2014 [facility] [address] [id number] [address] [place] [address], [place] [address] 17 Feb, 2014 [facility] [address] [id number] [address] [place] [address], [place] [address] 16 Feb, 2014 [facility] [address] [id number] [address] [place] [address], [place] [address] 16 Feb, 2014 [facility] [address] [id number] [address] [place] [address], [place] [address] Feb, [facility] [address] [id number] [address] [place] [address], [place] [address] 03 Feb, 2014 [facility] [address] [id number] [address] [place] [address], [place] [address] Jan, [facility] [address] [id number] [address] [place] [address], [place] [address] Jan, [facility] [address] [id number] [address] [place] [address], [place] [address] Jan, [facility] [address] [id number] [address] [place] [address], [place] [address] Jan, [facility] [address] [id number] [address] [place] [address], [place] [address] Dec, [facility] [address] [id number] [place] [address] Dec, [facility] [address] [facility] [id number] [address] [place] [address] Dec, [facility] [address] [facility] [id number] [address] [place] [address] Dec, IMMUNIZATIONS No Known Immunizations SOCIAL HISTORY [...]
--- OUTSIDE RECORDS SUMMARY | 2019-10-29 01:15 | XMS REPORT ---
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 Name Role Phone ANGE REYNOSO Unavailable PROBLEMS Type Condition ICD9-CM Code FGH67-RR Code Onset Dates Condition S tatus SNOMED Code Problem Bilateral low back pain without sciatica M54.5 Active 354110015 Problem Anxiety F41.9 Active 20211488 Problem Chronic pain syndrome G89.4 Active 914987615 Problem Thrush B37.0 Active 19304237 Problem Type 2 diabetes mellitus with complication E11.8 Active 30521962 Problem COPD with acute exacerbation J44.1 A ctive 381394853 Problem History of long-term use of multiple prescription drugs Z92.29 Active 778068914 Problem Essential hypertension I10 Active 05666952 Problem Mixed hyperlipidemia E78.2 Active 277052975 Problem Long-term use of high-risk medication Z79.899 Active 396569822 Problem Chronic obstructive pulmonary disease, unspecified COPD ty pe J44.9 Active [id number] ALLERGIES No Information ENCOUNTERS Encounter Location Date Diagnosis [facility] [address] [id number] [address] [place] [id number] Nov, [facility] [address] [id number] [address] [place] [phone] October, Scabies B86 [facility] [address] [id number] [address] [place] [id number] October, Acute upper respiratory infe ction, unspecified J06.9 [facility] [address] [id number] [address] [place] [address] October, Dysuria R30.0 and Coughing R 05 [facility] [id number] [place] [phone] Aug, [facility] [address] [id number] [address] [place] [phone] Jun, [facility] [address] [id number] [address] [place] [id number] Jun, [facility] [address] [id number] [address] [place] [id number] Jun, [facility] [address] [id number] [address] [place] [phone] May, [facility] [address] [id number] [address] [place] [phone] May, [facility] [address] [facility] [id number] [address] [place] [address] May, [facility] [address] [facility] [id number] [address] [place] [address] Apr, Type 2 diabetes mellitus wit h complication E11.8 ; Chronic pain syndrome G89.4 ; Bilateral low back pain without sciatica M54.5 ; Essential hypertension I10 ; Anxiety F41.9 ; COPD with acute exacerbation J44.1 ; Pain of left hand M79.642 and Pain in right hand M79.641 [facility] [address] [id number] [address] [place] [id number] Apr, [facility] [address] [id number] [address] [place] [phone] Mar, [facility] [address] [id number] [address] [place] [id number] Mar, [facility] [address] [id number] [address] [place] [id number] Mar, [facility] [address] [facility] [id number] [address] [place] [id number] Feb, [facility] [address] [facility] [id number] [address] [place] [address] Feb, [facility] [address] [id number] [address] [place] [address] Jan, Type 2 diabetes mellitus wit h complication E11.8 ; Chronic pain syndrome G89.4 ; Bilateral low back pain without sciatica M54.5 ; Essential hypertension I10 ; Anxiety F41.9 ; Chronic obstructive pulmonary disease, unspecified COPD type J44.9 and Thrush B37.0 [facility] [address] [id number] [address] [place] [id number] Jan, [facility] [address] [id number] [address] [place] [id number] Dec, [facility] [address] [id number] [address] [place] [address] Dec, [facility] [address] [id number] [address] [place] [phone] Nov, [facility] [address] [id number] [address] [place] [address] Nov, [facility] [address] [id number] [address] [place] [phone] Nov, [facility] [address] [facility] [id number] [address] [place] [address] Nov, Chest pain, unspecified type R07.9 and COPD exacerbation J44.1 [facility] [address] [id number] [address] [place] [address] October, [facility] [address] [facility] [id number] [address] [place] [address] Sep, [facility] [address] [id number] [address] [place] [address] Sep, Type 2 diabetes mellitus wit h complication E11.8 ; Chronic pain syndrome G89.4 ; Bilateral low back pain without sciatica M54.5 ; Essential hypertension I10 ; Anxiety F41.9 and COPD exacerbation J44.1 [facility] [address] [facility] [id number] [address] [place] [address] Aug, [facility] [address] [facility] [id number] [address] [place] [id number] Aug, [facility] [address] [facility] [id number] [address] [place] [phone] Aug, Chronic pain syndrome G89.4 [facility] [address] [facility] [id number] [address] [place] [id number] Aug, [facility] [id number] [place] [address] Aug, [facility] [id number] [place] [address] Jul, Chronic pain syndrome G89.4 and Anxiety F41.9 [facility] [address] [id number] [address] [place] [id number] Jul, [facility] [address] [address] Jun, Bilateral low back pain with out sciatica M54.5 ; Chronic pain syndrome G89.4 ; Anxiety F41.9 ; History of long-term use of multiple prescription drugs Z92.29 ; Type 2 diabetes mellitus with complication E11.8 ; Long-term use of high-risk medication Z79.899 ; Mixed hyperlipidemia E78.2 and Essential hypertension I10 [facility] [address] [id number] [address] [place] [address] Jun, [facility] [address] [id number] [address] [place] [id number] Jun, [facility] [address] [facility] [id number] [address] [place] [address] May, [facility] [address] [id number] [address] [place] [address] Apr, [facility] [address] [id number] [address] [place] [address] Mar, [facility] [address] [id number] [address] [place] [address] Mar, Bilateral low back pain with out sciatica M54.5 ; History of long- term use of multiple prescription drugs Z92.29 ; Anxiety F41.9 ; Chronic pain syndrome G89.4 ; Type 2 diabetes mellitus with complication E11.8 ; Long-term use of high-risk medication Z79.899 and Mixed hyperlipidemia E78.2 [facility] [address] [id number] [address] [place] [address] Mar, [facility] [address] [id number] [address] [place] [id number] Mar, Chronic pain syndrome G89.4 [facility] [address] [id number] [address] [place] [id number] Mar, [facility] [address] [id number] [address] [place] [id number] Feb, [facility] [address] [id number] [address] [place] [id number] Feb, [facility] [address] [id number] [address] [place] [id number] Feb, [facility] [address] [id number] [address] [place] [address] Feb, [facility] [address] [id number] [address] [place] [id number] Jan, [facility] [address] [facility] [id number] [address] [place] [phone] Jan, [facility] [address] [id number] [address] [place] [id number] Dec, [facility] [address] [id number] [address] [place] [address] Dec, Lumbago 724.2 ; Diabetes thony litus without mention of complication, type II or unspecified type, not stated as uncontrolled 250.00 ; Essential hypertension, benign 401.1 ; Anxiety state, unspecified 300.00 ; Chronic pain 338.29 ; COPD with acute exacerbation 491.21 ; Tobacco abuse 305.1 ; Depression 311 and Hyperlipidemia 272.4 [facility] [address] [id number] [address] [place] [address] Dec, [facility] [address] [facility] [id number] [address] [place] [address] Nov, Lumbago 724.2 ; Diabetes thony litus without mention of complication, type II or unspecified type, not stated as uncontrolled 250.00 ; Essential hypertension, benign 401.1 ; Anxiety state, unspecified 300.00 ; Chronic pain 338.29 ; COPD with acute exacerbation 491.21 ; Tobacco abuse 305.1 and Depression 311 [facility] [address] [id number] [address] [place] [id number] Nov, [facility] [address] [id number] [address] [place] [id number] Nov, [facility] [address] [id number] [address] [place] [id number] Nov, [facility] [address] [id number] [address] [place] [id number] October, [facility] [address] [id number] [address] [place] [id number] October, [facility] [address] [id number] [address] [place] [id number] October, [facility] [address] [id number] [address] [place] [phone] October, [facility] [address] [id number] [address] [place] [phone] October, [facility] [address] [id number] [address] [place] [phone] Sep, [facility] [address] [facility] [id number] [address] [place] [phone] Sep, [facility] [address] [id number] [address] [place] [address], [place] [address] 13 Sep, 2014 [facility] [address] [id number] [address] [place] [address], [place] [address] 23 Aug, 2014 [facility] [address] [id number] [address] [place] [address], [place] [address] 23 Aug, 2014 [facility] [address] [id number] [address] [place] [address], [place] [address] 20 Aug, 2014 [facility] [address] [id number] [address] [place] [address], [place] [address] 20 Aug, 2014 [facility] [address] [id number] [address] [place] [address], [place] [address] 19 Aug, 2014 [facility] [address] [id number] [address] [place] [address], [place] [address] 19 Aug, 2014 [facility] [address] [id number] [address] [place] [address], [place] [address] 16 Aug, 2014 [facility] [address] [id number] [address] [place] [address], [place] [address] 16 Aug, 2014 [facility] [address] [id number] [address] [place] [address], [place] [address] 16 Aug, 2014 [facility] [address] [id number] [address] [place] [address], [place] [address] 16 Aug, 2014 [facility] [address] [id number] [address] [place] [address], [place] [address] 13 Aug, 2014 [facility] [address] [id number] [address] [place] [address], [place] [address] 13 Aug, 2014 [facility] [address] [id number] [address] [place] [address], [place] [address] 24 Jul, 2014 [facility] [address] [id number] [address] [place] [address], [place] [address] 23 Jul, 2014 [facility] [address] [id number] [address] [place] [address], [place] [address] Jul, [facility] [address] [id number] [address] [place] [address], [place] [address] Jul, [facility] [address] [id number] [address] [place] [address], [place] [address] Jul, [facility] [address] [id number] [address] [place] [address], [place] [address] Jul, [facility] [address] [id number] [address] [place] [address], [place] [address] Jul, [facility] [address] [id number] [address] [place] [address], [place] [address] Jun, [facility] [address] [id number] [address] [place] [address], [place] [address] Jun, [facility] [address] [id number] [address] [place] [address], [place] [address] Jun, [facility] [address] [id number] [address] [place] [address], [place] [address] Jun, [facility] [address] [id number] [address] [place] [address], [place] [address] Jun, [facility] [address] [id number] [address] [place] [address], [place] [address] Jun, [facility] [address] [id number] [address] [place] [address], [place] [address] Jun, [facility] [address] [id number] [address] [place] [address], [place] [address] Jun, [facility] [address] [id number] [address] [place] [address], [place] [address] Jun, [facility] [address] [id number] [address] [place] [address], [place] [address] May, [facility] [address] [id number] [address] [place] [address], [place] [address] May, [facility] [address] [id number] [address] [place] [address], [place] [address] 30 May, 2014 [facility] [address] [id number] [address] [place] [address], [place] [address] 30 May, 2014 [facility] [address] [id number] [address] [place] [address], [place] [address] 17 May, 2014 [facility] [address] [id number] [address] [place] [address], [place] [address] 15 May, 2014 [facility] [address] [id number] [address] [place] [address], [place] [address] 15 May, 2014 [facility] [address] [id number] [address] [place] [address], [place] [address] 12 May, 2014 [facility] [address] [id number] [address] [place] [address], [place] [address] May, [facility] [address] [id number] [address] [place] [address], [place] [address] May, [facility] [address] [id number] [address] [place] [address], [place] [address] May, [facility] [address] [id number] [address] [place] [address], [place] [address] Apr, [facility] [address] [id number] [address] [place] [address], [place] [address] Apr, [facility] [address] [id number] [address] [place] [address], [place] [address] Apr, [facility] [address] [id number] [address] [place] [address], [place] [address] Apr, [facility] [address] [id number] [address] [place] [address], [place] [address] 29 Mar, 2014 [facility] [address] [id number] [address] [place] [address], [place] [address] 29 Mar, 2014 [facility] [address] [id number] [address] [place] [address], [place] [address] Mar, [facility] [address] [id number] [address] [place] [address], [place] [address] 2014 [facility] [address] [id number] [address] [place] [address], [place] [address] Mar, [facility] [address] [id number] [address] [place] [address], [place] [address] Mar, [facility] [address] [id number] [address] [place] [address], [place] [address] 29 Feb, 2014 [facility] [address] [id number] [address] [place] [address], [place] [address] 29 Feb, 2014 [facility] [address] [id number] [address] [place] [address], [place] [address] 17 Feb, 2014 [facility] [address] [id number] [address] [place] [address], [place] [address] 16 Feb, 2014 [facility] [address] [id number] [address] [place] [address], [place] [address] 16 Feb, 2014 [facility] [address] [id number] [address] [place] [address], [place] [address] Feb, [facility] [address] [id number] [address] [place] [address], [place] [address] 03 Feb, 2014 [facility] [address] [id number] [address] [place] [address], [place] [address] Jan, [facility] [address] [id number] [address] [place] [address], [place] [address] Jan, [facility] [address] [id number] [address] [place] [address], [place] [address] Jan, [facility] [address] [id number] [address] [place] [address], [place] [address] Jan, [facility] [address] [id number] [address] [place] [address], [place] [address] Dec, [facility] [address] [id number] [address] [address] Dec, [facility] [address] [facility] [id number] [address] [place] [address] Dec, [facility] [address] [facility] [id number] [address] [place] [address] Dec, IMMUNIZATIONS No Known Immunizations SOCIAL HISTORY [...]
--- OUTSIDE RECORDS SUMMARY | 2019-10-29 01:15 | XMS REPORT ---
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 Name Role Phone ANGE REYNOSO Unavailable PROBLEMS Type Condition ICD9-CM Code MVQ10-DW Code Onset Dates Condition S tatus SNOMED Code Problem Bilateral low back pain without sciatica M54.5 Active 829416182 Problem Anxiety F41.9 Active 86974613 Problem Chronic pain syndrome G89.4 Active 478887114 Problem Thrush B37.0 Active 28394811 Problem Type 2 diabetes mellitus with complication E11.8 Active 14961904 Problem COPD with acute exacerbation J44.1 A ctive 737235302 Problem History of long-term use of multiple prescription drugs Z92.29 Active 158353505 Problem Essential hypertension I10 Active 62232263 Problem Mixed hyperlipidemia E78.2 Active 352291252 Problem Long-term use of high-risk medication Z79.899 Active 240722285 Problem Chronic obstructive pulmonary disease, unspecified COPD ty pe J44.9 Active 03243278 ALLERGIES No Information ENCOUNTERS Encounter Location Date Diagnosis [facility] [address] [id number] [address] [place] [phone] Nov, [facility] [address] [id number] [address] [place] [id number] October, Scabies B86 [facility] [address] [id number] [address] [place] [phone] October, Acute upper respiratory infe ction, unspecified J06.9 [facility] [address] [id number] [address] [place] [id number] October, Dysuria R30.0 and Coughing R 05 [facility] [id number] [place] [address] Aug, [facility] [address] [id number] [address] [place] [phone] Jun, [facility] [address] [id number] [address] [place] [phone] Jun, [facility] [address] [id number] [address] [place] [phone] Jun, [facility] [address] [id number] [address] [place] [phone] May, [facility] [address] [id number] [address] [place] [id number] May, [facility] [address] [facility] [id number] [address] [place] [phone] May, [facility] [address] [facility] [id number] [address] [place] [phone] Apr, Type 2 diabetes mellitus wit h complication E11.8 ; Chronic pain syndrome G89.4 ; Bilateral low back pain without sciatica M54.5 ; Essential hypertension I10 ; Anxiety F41.9 ; COPD with acute exacerbation J44.1 ; Pain of left hand M79.642 and Pain in right hand M79.641 [facility] [address] [id number] [address] [place] [phone] Apr, [facility] [address] [id number] [address] [place] [phone] Mar, [facility] [address] [id number] [address] [place] [id number] Mar, [facility] [address] [id number] [address] [place] [phone] Mar, [facility] [address] [facility] [id number] [address] [place] [phone] Feb, [facility] [address] [facility] [id number] [address] [place] [id number] Feb, [facility] [address] [id number] [address] [place] [phone] Jan, Type 2 diabetes mellitus wit h complication E11.8 ; Chronic pain syndrome G89.4 ; Bilateral low back pain without sciatica M54.5 ; Essential hypertension I10 ; Anxiety F41.9 ; Chronic obstructive pulmonary disease, unspecified COPD type J44.9 and Thrush B37.0 [facility] [address] [id number] [address] [place] [phone] Jan, [facility] [address] [id number] [address] [place] [phone] Dec, [facility] [address] [id number] [address] [place] [phone] Dec, [facility] [address] [id number] [address] [place] [id number] Nov, [facility] [address] [id number] [address] [place] [phone] Nov, [facility] [address] [id number] [address] [place] [phone] Nov, [facility] [address] [facility] [id number] [address] [place] [phone] Nov, Chest pain, unspecified type R07.9 and COPD exacerbation J44.1 [facility] [address] [id number] [address] [place] [phone] October, [facility] [address] [facility] [id number] [address] [place] [phone] Sep, [facility] [address] [id number] [address] [place] [id number] Sep, Type 2 diabetes mellitus wit h complication E11.8 ; Chronic pain syndrome G89.4 ; Bilateral low back pain without sciatica M54.5 ; Essential hypertension I10 ; Anxiety F41.9 and COPD exacerbation J44.1 [facility] [address] [facility] [id number] [address] [place] [phone] Aug, [facility] [address] [facility] [id number] [address] [place] [phone] Aug, [facility] [address] [facility] [id number] [address] [place] [phone] Aug, Chronic pain syndrome G89.4 [facility] [address] [facility] [id number] [address] [place] [phone] Aug, [facility] [id number] [place] [phone] Aug, [facility] [id number] [place] [phone] Jul, Chronic pain syndrome G89.4 and Anxiety F41.9 [facility] [address] [id number] [address] [place] [phone] Jul, [facility] [address] [address] Jun, Bilateral low back pain with out sciatica M54.5 ; Chronic pain syndrome G89.4 ; Anxiety F41.9 ; History of long-term use of multiple prescription drugs Z92.29 ; Type 2 diabetes mellitus with complication E11.8 ; Long-term use of high-risk medication Z79.899 ; Mixed hyperlipidemia E78.2 and Essential hypertension I10 [facility] [address] [id number] [address] [place] [phone] Jun, [facility] [address] [id number] [address] [place] [phone] Jun, [facility] [address] [facility] [id number] [address] [place] [phone] May, [facility] [id number] [address] [place] [phone] Apr, [facility] [id number] [address] [place] [phone] Mar, [facility] [id number] [address] [place] [phone] Mar, Bilateral low back pain with out sciatica M54.5 ; History of long- term use of multiple prescription drugs Z92.29 ; Anxiety F41.9 ; Chronic pain syndrome G89.4 ; Type 2 diabetes mellitus with complication E11.8 ; Long-term use of high-risk medication Z79.899 and Mixed hyperlipidemia E78.2 [facility] [address] [id number] [address] [place] [id number] Mar, [facility] [address] [id number] [address] [place] [phone] Mar, Chronic pain syndrome G89.4 [facility] [id number] [address] [place] [phone] Mar, [facility] [address] [id number] [address] [place] [phone] Feb, [facility] [address] [id number] [address] [place] [phone] Feb, [facility] [address] [id number] [address] [place] [phone] Feb, [facility] [address] [id number] [address] [place] [phone] Feb, [facility] [id number] [address] [place] [phone] Jan, [facility] [address] [facility] [id number] [address] [place] [phone] Jan, [facility] [id number] [address] [place] [phone] Dec, [facility] [address] [id number] [address] [place] [phone] Dec, Lumbago 724.2 ; Diabetes thony litus without mention of complication, type II or unspecified type, not stated as uncontrolled 250.00 ; Essential hypertension, benign 401.1 ; Anxiety state, unspecified 300.00 ; Chronic pain 338.29 ; COPD with acute exacerbation 491.21 ; Tobacco abuse 305.1 ; Depression 311 and Hyperlipidemia 272.4 [facility] [address] [id number] [address] [place] [phone] Dec, [facility] [address] [facility] [id number] [address] [place] [phone] Nov, Lumbago 724.2 ; Diabetes thony litus without mention of complication, type II or unspecified type, not stated as uncontrolled 250.00 ; Essential hypertension, benign 401.1 ; Anxiety state, unspecified 300.00 ; Chronic pain 338.29 ; COPD with acute exacerbation 491.21 ; Tobacco abuse 305.1 and Depression 311 [facility] [address] [id number] [address] [place] [phone] Nov, [facility] [address] [id number] [address] [place] [phone] Nov, [facility] [address] [id number] [address] [place] [phone] Nov, [facility] [address] [id number] [address] [place] [phone] October, [facility] [address] [id number] [address] [place] [phone] October, [facility] [address] [id number] [address] [place] [phone] October, [facility] [address] [id number] [address] [place] [phone] October, [facility] [address] [id number] [address] [place] [phone] October, [facility] [address] [id number] [address] [place] [phone] Sep, [facility] [address] [facility] [id number] [address] [place] [phone] Sep, [facility] [address] [id number] [address] [place] [address], [place] [id number] 13 Sep, 2014 [facility] [address] [id number] [address] [place] [address], [place] [phone] 23 Aug, 2014 [facility] [address] [id number] [address] [place] [address], [place] [address] 23 Aug, 2014 [facility] [address] [id number] [address] [place] [address], [place] [address] 20 Aug, 2014 [facility] [address] [id number] [address] [place] [address], [place] [address] 20 Aug, 2014 [facility] [address] [id number] [address] [place] [address], [place] [address] 19 Aug, 2014 [facility] [address] [id number] [address] [place] [address], [place] [address] 19 Aug, 2014 [facility] [address] [id number] [address] [place] [address], [place] [address] 16 Aug, 2014 [facility] [address] [id number] [address] [place] [address], [place] [address] 16 Aug, 2014 [facility] [address] [id number] [address] [place] [address], [place] [address] 16 Aug, 2014 [facility] [address] [id number] [address] [place] [address], [place] [address] 16 Aug, 2014 [facility] [address] [id number] [address] [place] [address], [place] [address] 13 Aug, 2014 [facility] [address] [id number] [address] [place] [address], [place] [address] 13 Aug, 2014 [facility] [address] [id number] [address] [place] [address], [place] [address] 24 Jul, 2014 [facility] [address] [id number] [address] [place] [address], [place] [id number] 23 Jul, 2014 [facility] [address] [id number] [address] [place] [address], [place] [address] Jul, [facility] [address] [id number] [address] [place] [address], [place] [address] Jul, [facility] [address] [id number] [address] [place] [address], [place] [address] Jul, [facility] [address] [id number] [address] [place] [address], [place] [address] Jul, [facility] [address] [id number] [address] [place] [address], [place] [address] Jul, [facility] [address] [id number] [address] [place] [address], [place] [address] Jun, [facility] [address] [id number] [address] [place] [address], [place] [address] Jun, [facility] [address] [id number] [address] [place] [address], [place] [address] Jun, [facility] [address] [id number] [address] [place] [address], [place] [address] Jun, [facility] [address] [id number] [address] [place] [address], [place] [address] Jun, [facility] [address] [id number] [address] [place] [address], [place] [address] Jun, [facility] [address] [id number] [address] [place] [address], [place] [address] Jun, [facility] [address] [id number] [address] [place] [address], [place] [address] Jun, [facility] [address] [id number] [address] [place] [address], [place] [address] Jun, [facility] [address] [id number] [address] [place] [address], [place] [address] May, [facility] [address] [id number] [address] [place] [address], [place] [address] May, [facility] [address] [id number] [address] [place] [address], [place] [address] 30 May, 2014 [facility] [address] [id number] [address] [place] [address], [place] [address] 30 May, 2014 [facility] [address] [id number] [address] [place] [address], [place] [address] 17 May, 2014 [facility] [address] [id number] [address] [place] [address], [place] [address] 15 May, 2014 [facility] [address] [id number] [address] [place] [address], [place] [address] 15 May, 2014 [facility] [address] [id number] [address] [place] [address], [place] [address] 12 May, 2014 [facility] [address] [id number] [address] [place] [address], [place] [address] May, [facility] [address] [id number] [address] [place] [address], [place] [address] May, [facility] [address] [id number] [address] [place] [address], [place] [address] May, [facility] [address] [id number] [address] [place] [address], [place] [address] Apr, [facility] [address] [id number] [address] [place] [address], [place] [address] Apr, [facility] [address] [id number] [address] [place] [address], [place] [address] Apr, [facility] [address] [id number] [address] [place] [address], [place] [address] Apr, [facility] [address] [id number] [address] [place] [address], [place] [address] 29 Mar, 2014 [facility] [address] [id number] [address] [place] [address], [place] [address] 29 Mar, 2014 [facility] [address] [id number] [address] [place] [address], [place] [address] Mar, [facility] [address] [id number] [address] [place] [address], [place] [address] 2014 [facility] [address] [id number] [address] [place] [address], [place] [address] Mar, [facility] [address] [id number] [address] [place] [address], [place] [address] Mar, [facility] [address] [id number] [address] [place] [address], [place] [address] 29 Feb, 2014 [facility] [address] [id number] [address] [place] [address], [place] [address] 29 Feb, 2014 [facility] [address] [id number] [address] [place] [address], [place] [address] 17 Feb, 2014 [facility] [address] [id number] [address] [place] [address], [place] [address] 16 Feb, 2014 [facility] [address] [id number] [address] [place] [address], [place] [address] 16 Feb, 2014 [facility] [address] [id number] [address] [place] [address], [place] [address] Feb, [facility] [address] [id number] [address] [place] [address], [place] [address] 03 Feb, 2014 [facility] [address] [id number] [address] [place] [address], [place] [address] Jan, [facility] [address] [id number] [address] [place] [address], [place] [address] Jan, [facility] [address] [id number] [address] [place] [address], [place] [address] Jan, [facility] [address] [id number] [address] [place] [address], [place] [address] Jan, [facility] [address] [id number] [address] [place] [address], [place] [address] Dec, [facility] [address] [id number] [address] [address] Dec, [facility] [address] [facility] [id number] [address] [place] [id number] Dec, [facility] [address] [facility] [id number] [address] [place] [id number] Dec, IMMUNIZATIONS No Known Immunizations SOCIAL HISTORY [...]
--- OUTSIDE RECORDS SUMMARY | 2019-10-29 01:15 | XMS REPORT ---
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 Name Role Phone ANGE REYNOSO Unavailable PROBLEMS Type Condition ICD9-CM Code KGY06-CH Code Onset Dates Condition S tatus SNOMED Code Problem Bilateral low back pain without sciatica M54.5 Active 916696037 Problem Anxiety F41.9 Active 79680756 Problem Chronic pain syndrome G89.4 Active 686071025 Problem Thrush B37.0 Active 69170192 Problem Type 2 diabetes mellitus with complication E11.8 Active 08434944 Problem COPD with acute exacerbation J44.1 A ctive 497814431 Problem History of long-term use of multiple prescription drugs Z92.29 Active 067324231 Problem Essential hypertension I10 Active 81383608 Problem Mixed hyperlipidemia E78.2 Active 840426655 Problem Long-term use of high-risk medication Z79.899 Active 327081921 Problem Chronic obstructive pulmonary disease, unspecified COPD ty pe J44.9 Active 59508642 ALLERGIES No Information ENCOUNTERS Encounter Location Date Diagnosis [facility] [address] [id number] [address] [place] [phone] Nov, [facility] [address] [id number] [address] [place] [phone] October, Scabies B86 [facility] [address] [id number] [address] [place] [phone] October, Acute upper respiratory infe ction, unspecified J06.9 [facility] [address] [id number] [address] [place] [id number] October, Dysuria R30.0 and Coughing R 05 [facility] [id number] [place] [address] Aug, [facility] [address] [id number] [address] [place] [phone] Jun, [facility] [address] [id number] [address] [place] [phone] Jun, [facility] [address] [id number] [address] [place] [phone] Jun, [facility] [address] [id number] [address] [place] [id number] May, [facility] [address] [id number] [address] [place] [id number] May, [facility] [address] [facility] [id number] [address] [place] [id number] May, [facility] [address] [facility] [id number] [address] [place] [phone] Apr, Type 2 diabetes mellitus wit h complication E11.8 ; Chronic pain syndrome G89.4 ; Bilateral low back pain without sciatica M54.5 ; Essential hypertension I10 ; Anxiety F41.9 ; COPD with acute exacerbation J44.1 ; Pain of left hand M79.642 and Pain in right hand M79.641 [facility] [address] [id number] [address] [place] [phone] Apr, [facility] [address] [id number] [address] [place] [phone] Mar, [facility] [address] [id number] [address] [place] [id number] Mar, [facility] [address] [id number] [address] [place] [phone] Mar, [facility] [address] [facility] [id number] [address] [place] [id number] Feb, [facility] [address] [facility] [id number] [address] [place] [id number] Feb, [facility] [address] [id number] [address] [place] [phone] Jan, Type 2 diabetes mellitus wit h complication E11.8 ; Chronic pain syndrome G89.4 ; Bilateral low back pain without sciatica M54.5 ; Essential hypertension I10 ; Anxiety F41.9 ; Chronic obstructive pulmonary disease, unspecified COPD type J44.9 and Thrush B37.0 [facility] [address] [id number] [address] [place] [phone] Jan, [facility] [address] [id number] [address] [place] [phone] Dec, [facility] [address] [id number] [address] [place] [phone] Dec, [facility] [address] [id number] [address] [place] [phone] Nov, [facility] [address] [id number] [address] [place] [phone] Nov, [facility] [address] [id number] [address] [place] [phone] Nov, [facility] [address] [facility] [id number] [address] [place] [phone] Nov, Chest pain, unspecified type R07.9 and COPD exacerbation J44.1 [facility] [address] [id number] [address] [place] [phone] October, [facility] [address] [facility] [id number] [address] [place] [phone] Sep, [facility] [address] [id number] [address] [place] [phone] Sep, Type 2 diabetes mellitus wit h complication E11.8 ; Chronic pain syndrome G89.4 ; Bilateral low back pain without sciatica M54.5 ; Essential hypertension I10 ; Anxiety F41.9 and COPD exacerbation J44.1 [facility] [address] [facility] [id number] [address] [place] [phone] Aug, [facility] [address] [facility] [id number] [address] [place] [phone] Aug, [facility] [address] [facility] [id number] [address] [place] [phone] Aug, Chronic pain syndrome G89.4 [facility] [address] [facility] [id number] [address] [place] [phone] Aug, [facility] [id number] [place] [phone] Aug, [facility] [id number] [place] [phone] Jul, Chronic pain syndrome G89.4 and Anxiety F41.9 [facility] [address] [id number] [address] [place] [phone] Jul, [facility] [address] [address] Jun, Bilateral low back pain with out sciatica M54.5 ; Chronic pain syndrome G89.4 ; Anxiety F41.9 ; History of long-term use of multiple prescription drugs Z92.29 ; Type 2 diabetes mellitus with complication E11.8 ; Long-term use of high-risk medication Z79.899 ; Mixed hyperlipidemia E78.2 and Essential hypertension I10 [facility] [address] [id number] [address] [place] [phone] Jun, [facility] [address] [id number] [address] [place] [phone] Jun, [facility] [address] [facility] [id number] [address] [place] [phone] May, [facility] [address] [id number] [address] [place] [phone] Apr, [facility] [address] [id number] [address] [place] [phone] Mar, [facility] [address] [id number] [address] [place] [phone] Mar, Bilateral low back pain with out sciatica M54.5 ; History of long- term use of multiple prescription drugs Z92.29 ; Anxiety F41.9 ; Chronic pain syndrome G89.4 ; Type 2 diabetes mellitus with complication E11.8 ; Long-term use of high-risk medication Z79.899 and Mixed hyperlipidemia E78.2 [facility] [address] [id number] [address] [place] [id number] Mar, [facility] [address] [id number] [address] [place] [phone] Mar, Chronic pain syndrome G89.4 [facility] [address] [id number] [address] [place] [phone] Mar, [facility] [address] [id number] [address] [place] [phone] Feb, [facility] [address] [id number] [address] [place] [phone] Feb, [facility] [address] [id number] [address] [place] [phone] Feb, [facility] [address] [id number] [address] [place] [phone] Feb, [facility] [address] [id number] [address] [place] [phone] Jan, [facility] [address] [facility] [id number] [address] [place] [phone] Jan, [facility] [address] [id number] [address] [place] [phone] Dec, [facility] [address] [id number] [address] [place] [phone] Dec, Lumbago 724.2 ; Diabetes thony litus without mention of complication, type II or unspecified type, not stated as uncontrolled 250.00 ; Essential hypertension, benign 401.1 ; Anxiety state, unspecified 300.00 ; Chronic pain 338.29 ; COPD with acute exacerbation 491.21 ; Tobacco abuse 305.1 ; Depression 311 and Hyperlipidemia 272.4 [facility] [address] [id number] [address] [place] [phone] Dec, [facility] [address] [facility] [id number] [address] [place] [phone] Nov, Lumbago 724.2 ; Diabetes thony litus without mention of complication, type II or unspecified type, not stated as uncontrolled 250.00 ; Essential hypertension, benign 401.1 ; Anxiety state, unspecified 300.00 ; Chronic pain 338.29 ; COPD with acute exacerbation 491.21 ; Tobacco abuse 305.1 and Depression 311 [facility] [address] [id number] [address] [place] [phone] Nov, [facility] [address] [id number] [address] [place] [phone] Nov, [facility] [address] [id number] [address] [place] [phone] Nov, [facility] [address] [id number] [address] [place] [id number] October, [facility] [address] [id number] [address] [place] [phone] October, [facility] [address] [id number] [address] [place] [phone] October, [facility] [address] [id number] [address] [place] [phone] October, [facility] [address] [id number] [address] [place] [phone] October, [facility] [address] [id number] [address] [place] [phone] Sep, [facility] [address] [facility] [id number] [address] [place] [phone] Sep, [facility] [address] [id number] [address] [place] [address], [place] [address] 13 Sep, 2014 [facility] [address] [id number] [address] [place] [address], [place] [address] 23 Aug, 2014 [facility] [address] [id number] [address] [place] [address], [place] [address] 23 Aug, 2014 [facility] [address] [id number] [address] [place] [address], [place] [address] 20 Aug, 2014 [facility] [address] [id number] [address] [place] [address], [place] [address] 20 Aug, 2014 [facility] [address] [id number] [address] [place] [address], [place] [address] 19 Aug, 2014 [facility] [address] [id number] [address] [place] [address], [place] [address] 19 Aug, 2014 [facility] [address] [id number] [address] [place] [address], [place] [address] 16 Aug, 2014 [facility] [address] [id number] [address] [place] [address], [place] [address] 16 Aug, 2014 [facility] [address] [id number] [address] [place] [address], [place] [address] 16 Aug, 2014 [facility] [address] [id number] [address] [place] [address], [place] [address] 16 Aug, 2014 [facility] [address] [id number] [address] [place] [address], [place] [address] 13 Aug, 2014 [facility] [address] [id number] [address] [place] [address], [place] [address] 13 Aug, 2014 [facility] [address] [id number] [address] [place] [address], [place] [address] 24 Jul, 2014 [facility] [address] [id number] [address] [place] [address], [place] [address] 23 Jul, 2014 [facility] [address] [id number] [address] [place] [address], [place] [address] Jul, [facility] [address] [id number] [address] [place] [address], [place] [address] Jul, [facility] [address] [id number] [address] [place] [address], [place] [address] Jul, [facility] [address] [id number] [address] [place] [address], [place] [address] Jul, [facility] [address] [id number] [address] [place] [address], [place] [address] Jul, [facility] [address] [id number] [address] [place] [address], [place] [address] Jun, [facility] [address] [id number] [address] [place] [address], [place] [address] Jun, [facility] [address] [id number] [address] [place] [address], [place] [address] Jun, [facility] [address] [id number] [address] [place] [address], [place] [address] Jun, [facility] [address] [id number] [address] [place] [address], [place] [address] Jun, [facility] [address] [id number] [address] [place] [address], [place] [address] Jun, [facility] [address] [id number] [address] [place] [address], [place] [address] Jun, [facility] [address] [id number] [address] [place] [address], [place] [address] Jun, [facility] [address] [id number] [address] [place] [address], [place] [address] Jun, [facility] [address] [id number] [address] [place] [address], [place] [address] May, [facility] [address] [id number] [address] [place] [address], [place] [address] May, [facility] [address] [id number] [address] [place] [address], [place] [address] 30 May, 2014 [facility] [address] [id number] [address] [place] [address], [place] [address] 30 May, 2014 [facility] [address] [id number] [address] [place] [address], [place] [address] 17 May, 2014 [facility] [address] [id number] [address] [place] [address], [place] [address] 15 May, 2014 [facility] [address] [id number] [address] [place] [address], [place] [address] 15 May, 2014 [facility] [address] [id number] [address] [place] [address], [place] [address] 12 May, 2014 [facility] [address] [id number] [address] [place] [address], [place] [address] May, [facility] [address] [id number] [address] [place] [address], [place] [address] May, [facility] [address] [id number] [address] [place] [address], [place] [address] May, [facility] [address] [id number] [address] [place] [address], [place] [address] Apr, [facility] [address] [id number] [address] [place] [address], [place] [address] Apr, [facility] [address] [id number] [address] [place] [address], [place] [address] Apr, [facility] [address] [id number] [address] [place] [address], [place] [address] Apr, [facility] [address] [id number] [address] [place] [address], [place] [address] 29 Mar, 2014 [facility] [address] [id number] [address] [place] [address], [place] [address] 29 Mar, 2014 [facility] [address] [id number] [address] [place] [address], [place] [address] Mar, [facility] [address] [id number] [address] [place] [address], [place] [address] 2014 [facility] [address] [id number] [address] [place] [address], [place] [address] Mar, [facility] [address] [id number] [address] [place] [address], [place] [address] Mar, [facility] [address] [id number] [address] [place] [address], [place] [address] 29 Feb, 2014 [facility] [address] [id number] [address] [place] [address], [place] [address] 29 Feb, 2014 [facility] [address] [id number] [address] [place] [address], [place] [address] 17 Feb, 2014 [facility] [address] [id number] [address] [place] [address], [place] [address] 16 Feb, 2014 [facility] [address] [id number] [address] [place] [address], [place] [address] 16 Feb, 2014 [facility] [address] [id number] [address] [place] [address], [place] [address] Feb, [facility] [address] [id number] [address] [place] [address], [place] [address] 03 Feb, 2014 [facility] [address] [id number] [address] [place] [address], [place] [address] Jan, [facility] [address] [id number] [address] [place] [address], [place] [address] Jan, [facility] [address] [id number] [address] [place] [address], [place] [address] Jan, [facility] [address] [id number] [address] [place] [address], [place] [address] Jan, [facility] [address] [id number] [address] [place] [address], [place] [address] Dec, [facility] [address] [id number] [address] [address] Dec, [facility] [address] [facility] [id number] [address] [place] [address] Dec, [facility] [address] [facility] [id number] [address] [place] [address] Dec, IMMUNIZATIONS No Known Immunizations SOCIAL HISTORY [...]
--- OUTSIDE RECORDS SUMMARY | 2019-10-29 01:15 | XMS REPORT ---
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 Role Phone ANGE REYNOSO Unavailable PROBLEMS Type Condition ICD9-CM Code [id number] Code Onset Dates Condition S tatus SNOMED Code Problem Bilateral low back pain without sciatica M54.5 Active 893359207 Problem Anxiety F41.9 Active 44176179 Problem Chronic pain syndrome G89.4 Active 590897030 Problem Thrush B37.0 Active 18354125 Problem Type 2 diabetes mellitus with complication E11.8 Active 38843791 Problem COPD with acute exacerbation J44.1 A ctive 165657960 Problem History of long-term use of multiple prescription drugs Z92.29 Active 764148465 Problem Essential hypertension I10 Active 32149231 Problem Mixed hyperlipidemia E78.2 Active 439854628 Problem Long-term use of high-risk medication Z79.899 Active 391347806 Problem Chronic obstructive pulmonary disease, unspecified COPD ty pe J44.9 Active 03245143 ALLERGIES No Information ENCOUNTERS Encounter Location Date Diagnosis [facility] [address] [id number] [address] [place] [address] Nov, [facility] [address] [id number] [address] [place] [address] October, Scabies B86 [facility] [address] [id number] [address] [place] [address] October, Acute upper respiratory infe ction, unspecified J06.9 [facility] [address] [id number] [address] [place] [address] October, Dysuria R30.0 and Coughing R 05 [facility] [id number] [place] [address] Aug, [facility] [address] [id number] [address] [place] [address] Jun, [facility] [address] [id number] [address] [place] [address] Jun, [facility] [address] [id number] [address] [place] [address] Jun, [facility] [address] [id number] [address] [place] [address] May, [facility] [address] [id number] [address] [place] [address] May, [facility] [address] [facility] [id number] [address] [place] [address] May, [facility] [address] [facility] [id number] [address] [place] [address] Apr, Type 2 diabetes mellitus wit h complication E11.8 ; Chronic pain syndrome G89.4 ; Bilateral low back pain without sciatica M54.5 ; Essential hypertension I10 ; Anxiety F41.9 ; COPD with acute exacerbation J44.1 ; Pain of left hand M79.642 and Pain in right hand M79.641 [facility] [address] [id number] [address] [place] [address] Apr, [facility] [address] [id number] [address] [place] [address] Mar, [facility] [address] [id number] [address] [place] [address] Mar, [facility] [address] [id number] [address] [place] [address] Mar, [facility] [address] [facility] [id number] [address] [place] [address] Feb, [facility] [address] [facility] [id number] [address] [place] [address] Feb, [facility] [address] [id number] [address] [place] [address] Jan, Type 2 diabetes mellitus wit h complication E11.8 ; Chronic pain syndrome G89.4 ; Bilateral low back pain without sciatica M54.5 ; Essential hypertension I10 ; Anxiety F41.9 ; Chronic obstructive pulmonary disease, unspecified COPD type J44.9 and Thrush B37.0 [facility] [address] [id number] [address] [place] [address] Jan, [facility] [address] [id number] [address] [place] [address] Dec, [facility] [address] [id number] [address] [place] [address] Dec, [facility] [address] [id number] [address] [place] [address] Nov, [facility] [address] [id number] [address] [place] [address] Nov, [facility] [address] [id number] [address] [place] [address] Nov, [facility] [address] [facility] [id number] [address] [place] [address] Nov, Chest pain, unspecified type R07.9 and COPD exacerbation J44.1 [facility] [address] [id number] [address] [place] [address] October, [facility] [address] [facility] [id number] [address] [place] [address] Sep, [facility] [address] [id number] [address] [place] [address] Sep, Type 2 diabetes mellitus wit h complication E11.8 ; Chronic pain syndrome G89.4 ; Bilateral low back pain without sciatica M54.5 ; Essential hypertension I10 ; Anxiety F41.9 and COPD exacerbation J44.1 [facility] [address] [facility] [id number] [address] [place] [address] Aug, [facility] [address] [facility] [id number] [address] [place] [address] Aug, [facility] [address] [facility] [id number] [address] [place] [address] Aug, Chronic pain syndrome G89.4 [facility] [address] [facility] [id number] [address] [place] [address] Aug, [facility] [address] [id number] [place] [address] Aug, [facility] [address] [id number] [place] [address] Jul, Chronic pain syndrome G89.4 and Anxiety F41.9 [facility] [address] [id number] [address] [place] [address] Jul, [facility] [address] [address] Jun, Bilateral low back pain with out sciatica M54.5 ; Chronic pain syndrome G89.4 ; Anxiety F41.9 ; History of long-term use of multiple prescription drugs Z92.29 ; Type 2 diabetes mellitus with complication E11.8 ; Long-term use of high-risk medication Z79.899 ; Mixed hyperlipidemia E78.2 and Essential hypertension I10 [facility] [address] [id number] [address] [place] [address] Jun, [facility] [address] [id number] [address] [place] [address] Jun, [facility] [address] [facility] [id number] [address] [place] [address] May, [facility] [address] [id number] [address] [place] [address] Apr, [facility] [address] [id number] [address] [place] [address] Mar, [facility] [address] [id number] [address] [place] [address] Mar, Bilateral low back pain with out sciatica M54.5 ; History of long- term use of multiple prescription drugs Z92.29 ; Anxiety F41.9 ; Chronic pain syndrome G89.4 ; Type 2 diabetes mellitus with complication E11.8 ; Long-term use of high-risk medication Z79.899 and Mixed hyperlipidemia E78.2 [facility] [address] [id number] [address] [place] [address] Mar, [facility] [address] [id number] [address] [place] [address] Mar, Chronic pain syndrome G89.4 [facility] [address] [id number] [address] [place] [address] Mar, [facility] [address] [id number] [address] [place] [address] Feb, [facility] [address] [id number] [address] [place] [address] Feb, [facility] [address] [id number] [address] [place] [address] Feb, [facility] [address] [id number] [address] [place] [address] Feb, [facility] [address] [id number] [address] [place] [address] Jan, [facility] [address] [facility] [id number] [address] [place] [address] Jan, [facility] [address] [id number] [address] [place] [address] Dec, [facility] [address] [id number] [address] [place] [address] Dec, Lumbago 724.2 ; Diabetes thony litus without mention of complication, type II or unspecified type, not stated as uncontrolled 250.00 ; Essential hypertension, benign 401.1 ; Anxiety state, unspecified 300.00 ; Chronic pain 338.29 ; COPD with acute exacerbation 491.21 ; Tobacco abuse 305.1 ; Depression 311 and Hyperlipidemia 272.4 [facility] [address] [id number] [address] [place] [address] Dec, [facility] [address] [facility] [id number] [address] [place] [address] Nov, Lumbago 724.2 ; Diabetes thony litus without mention of complication, type II or unspecified type, not stated as uncontrolled 250.00 ; Essential hypertension, benign 401.1 ; Anxiety state, unspecified 300.00 ; Chronic pain 338.29 ; COPD with acute exacerbation 491.21 ; Tobacco abuse 305.1 and Depression 311 [facility] [address] [id number] [address] [place] [address] Nov, [facility] [address] [id number] [address] [place] [address] Nov, [facility] [address] [id number] [address] [place] [address] Nov, [facility] [address] [id number] [address] [place] [address] October, [facility] [address] [id number] [address] [place] [address] October, [facility] [address] [id number] [address] [place] [address] October, [facility] [address] [id number] [address] [place] [address] October, [facility] [address] [id number] [address] [place] [address] October, [facility] [address] [id number] [address] [place] [address] Sep, [facility] [address] [facility] [id number] [address] [place] [address] Sep, [facility] [address] [id number] [address] [place] [address], [place] [address] 13 Sep, 2014 [facility] [address] [id number] [address] [place] [address], [place] [address] 23 Aug, 2014 [facility] [address] [id number] [address] [place] [address], [place] [address] 23 Aug, 2014 [facility] [address] [id number] [address] [place] [address], [place] [address] 20 Aug, 2014 [facility] [address] [id number] [address] [place] [address], [place] [address] 20 Aug, 2014 [facility] [address] [id number] [address] [place] [address], [place] [address] 19 Aug, 2014 [facility] [address] [id number] [address] [place] [address], [place] [id number] 19 Aug, 2014 [facility] [address] [id number] [address] [place] [address], [place] [address] 16 Aug, 2014 [facility] [address] [id number] [address] [place] [address], [place] [address] 16 Aug, 2014 [facility] [address] [id number] [address] [place] [address], [place] [address] 16 Aug, 2014 [facility] [address] [id number] [address] [place] [address], [place] [address] 16 Aug, 2014 [facility] [address] [id number] [address] [place] [address], [place] [address] 13 Aug, 2014 [facility] [address] [id number] [address] [place] [address], [place] [address] 13 Aug, 2014 [facility] [address] [id number] [address] [place] [address], [place] [address] 24 Jul, 2014 [facility] [address] [id number] [address] [place] [address], [place] [id number] 23 Jul, 2014 [facility] [address] [id number] [address] [place] [address], [place] [address] Jul, [facility] [address] [id number] [address] [place] [address], [place] [address] Jul, [facility] [address] [id number] [address] [place] [address], [place] [address] Jul, [facility] [address] [id number] [address] [place] [address], [place] [address] Jul, [facility] [address] [id number] [address] [place] [address], [place] [address] Jul, [facility] [address] [id number] [address] [place] [address], [place] [address] Jun, [facility] [address] [id number] [address] [place] [address], [place] [address] Jun, [facility] [address] [id number] [address] [place] [address], [place] [address] Jun, [facility] [address] [id number] [address] [place] [address], [place] [address] Jun, [facility] [address] [id number] [address] [place] [address], [place] [address] Jun, [facility] [address] [id number] [address] [place] [address], [place] [address] Jun, [facility] [address] [id number] [address] [place] [address], [place] [address] Jun, [facility] [address] [id number] [address] [place] [address], [place] [address] Jun, [facility] [address] [id number] [address] [place] [address], [place] [address] Jun, [facility] [address] [id number] [address] [place] [address], [place] [address] May, [facility] [address] [id number] [address] [place] [address], [place] [address] May, [facility] [address] [id number] [address] [place] [address], [place] [address] 30 May, 2014 [facility] [address] [id number] [address] [place] [address], [place] [address] 30 May, 2014 [facility] [address] [id number] [address] [place] [address], [place] [address] 17 May, 2014 [facility] [address] [id number] [address] [place] [address], [place] [address] 15 May, 2014 [facility] [address] [id number] [address] [place] [address], [place] [address] 15 May, 2014 [facility] [address] [id number] [address] [place] [address], [place] [address] 12 May, 2014 [facility] [address] [id number] [address] [place] [address], [place] [address] May, [facility] [address] [id number] [address] [place] [address], [place] [address] May, [facility] [address] [id number] [address] [place] [address], [place] [address] May, [facility] [address] [id number] [address] [place] [address], [place] [address] Apr, [facility] [address] [id number] [address] [place] [address], [place] [address] Apr, [facility] [address] [id number] [address] [place] [address], [place] [address] Apr, [facility] [address] [id number] [address] [place] [address], [place] [address] Apr, [facility] [address] [id number] [address] [place] [address], [place] [address] 29 Mar, 2014 [facility] [address] [id number] [address] [place] [address], [place] [address] 29 Mar, 2014 [facility] [address] [id number] [address] [place] [address], [place] [address] Mar, [facility] [address] [id number] [address] [place] [address], [place] [address] 2014 [facility] [address] [id number] [address] [place] [address], [place] [address] Mar, [facility] [address] [id number] [address] [place] [address], [place] [address] Mar, [facility] [address] [id number] [address] [place] [address], [place] [address] 29 Feb, 2014 [facility] [address] [id number] [address] [place] [address], [place] [address] 29 Feb, 2014 [facility] [address] [id number] [address] [place] [address], [place] [address] 17 Feb, 2014 [facility] [address] [id number] [address] [place] [address], [place] [address] 16 Feb, 2014 [facility] [address] [id number] [address] [place] [address], [place] [address] 16 Feb, 2014 [facility] [address] [id number] [address] [place] [address], [place] [address] Feb, [facility] [address] [id number] [address] [place] [address], [place] [address] 03 Feb, 2014 [facility] [address] [id number] [address] [place] [address], [place] [address] Jan, [facility] [address] [id number] [address] [place] [address], [place] [address] Jan, [facility] [address] [id number] [address] [place] [address], [place] [address] Jan, [facility] [address] [id number] [address] [place] [address], [place] [address] Jan, [facility] [address] [id number] [address] [place] [address], [place] [address] Dec, [facility] [address] [id number] [address] [address] Dec, [facility] [address] [facility] [id number] [address] [place] [address] Dec, [facility] [address] [facility] [id number] [address] [place] [address] Dec, IMMUNIZATIONS No Known Immunizations SOCIAL HISTORY [...]
--- OUTSIDE RECORDS SUMMARY | 2019-10-29 01:15 | XMS REPORT ---
Author Author RICOVeronica Ferrell ANGE Organization [facility] Address [address] [place] [address] Care Team Providers Care Hand Rigger Name Role Phone ANGE REYNOSO Unavailable PROBLEMS Type Condition ICD9-CM Code VMM34-OM Code Onset Dates Condition S tatus SNOMED Code Problem Bilateral low back pain without sciatica M54.5 Active 050335492 Problem Anxiety F41.9 Active 24733398 Problem Chronic pain syndrome G89.4 Active 334316766 Problem Thrush B37.0 Active 22075101 Problem Type 2 diabetes mellitus with complication E11.8 Active 84861652 Problem COPD with acute exacerbation J44.1 A ctive 894124371 Problem History of long-term use of multiple prescription drugs Z92.29 Active 220402852 Problem Essential hypertension I10 Active 50775163 Problem Mixed hyperlipidemia E78.2 Active 377535752 Problem Long-term use of high-risk medication Z79.899 Active 511071721 Problem Chronic obstructive pulmonary disease, unspecified COPD ty pe J44.9 Active 95198094 ALLERGIES No Information ENCOUNTERS Encounter Location Date Diagnosis [facility] [address] [id number] [address] [place] [phone] Nov, [facility] [address] [id number] [address] [place] [phone] October, Scabies B86 [facility] [address] [id number] [address] [place] [phone] October, Acute upper respiratory infe ction, unspecified J06.9 [facility] [address] [id number] [address] [place] [phone] October, Dysuria R30.0 and Coughing R 05 [facility] [id number] [place] [address] Aug, [facility] [address] [id number] [address] [place] [id number] Jun, [facility] [address] [id number] [address] [place] [phone] Jun, [facility] [address] [id number] [address] [place] [phone] Jun, [facility] [address] [id number] [address] [place] [phone] May, [facility] [address] [id number] [address] [place] [phone] May, [facility] [address] [facility] [id number] [address] [place] [id number] May, [facility] [address] [facility] [id number] [address] [place] [id number] Apr, Type 2 diabetes mellitus wit h complication E11.8 ; Chronic pain syndrome G89.4 ; Bilateral low back pain without sciatica M54.5 ; Essential hypertension I10 ; Anxiety F41.9 ; COPD with acute exacerbation J44.1 ; Pain of left hand M79.642 and Pain in right hand M79.641 [facility] [address] [id number] [address] [place] [phone] Apr, [facility] [address] [id number] [address] [place] [phone] Mar, [facility] [address] [id number] [address] [place] [phone] Mar, [facility] [address] [id number] [address] [place] [phone] Mar, [facility] [address] [facility] [id number] [address] [place] [phone] Feb, [facility] [address] [facility] [id number] [address] [place] [phone] Feb, [facility] [address] [id number] [address] [place] [id number] Jan, Type 2 diabetes mellitus wit h complication E11.8 ; Chronic pain syndrome G89.4 ; Bilateral low back pain without sciatica M54.5 ; Essential hypertension I10 ; Anxiety F41.9 ; Chronic obstructive pulmonary disease, unspecified COPD type J44.9 and Thrush B37.0 [facility] [address] [id number] [address] [place] [id number] Jan, [facility] [address] [id number] [address] [place] [phone] Dec, [facility] [address] [id number] [address] [place] [id number] Dec, [facility] [address] [id number] [address] [place] [phone] Nov, [facility] [address] [id number] [address] [place] [phone] Nov, [facility] [address] [id number] [address] [place] [phone] Nov, [facility] [address] [facility] [id number] [address] [place] [phone] Nov, Chest pain, unspecified type R07.9 and COPD exacerbation J44.1 [facility] [address] [id number] [address] [place] [phone] October, [facility] [address] [facility] [id number] [address] [place] [phone] Sep, [facility] [address] [id number] [address] [place] [id number] Sep, Type 2 diabetes mellitus wit h complication E11.8 ; Chronic pain syndrome G89.4 ; Bilateral low back pain without sciatica M54.5 ; Essential hypertension I10 ; Anxiety F41.9 and COPD exacerbation J44.1 [facility] [address] [facility] [id number] [address] [place] [phone] Aug, [facility] [address] [facility] [id number] [address] [place] [phone] Aug, [facility] [address] [facility] [id number] [address] [place] [phone] Aug, Chronic pain syndrome G89.4 [facility] [address] [facility] [id number] [address] [place] [phone] Aug, [facility] [id number] [place] [phone] Aug, [facility] [id number] [place] [address] Jul, Chronic pain syndrome G89.4 and Anxiety F41.9 [facility] [address] [id number] [address] [place] [phone] Jul, [facility] [address] [id number] Jun, Bilateral low back pain with out sciatica M54.5 ; Chronic pain syndrome G89.4 ; Anxiety F41.9 ; History of long-term use of multiple prescription drugs Z92.29 ; Type 2 diabetes mellitus with complication E11.8 ; Long-term use of high-risk medication Z79.899 ; Mixed hyperlipidemia E78.2 and Essential hypertension I10 [facility] [address] [id number] [address] [place] [phone] Jun, [facility] [address] [id number] [address] [place] [phone] Jun, [facility] [address] [facility] [id number] [address] [place] [phone] May, [facility] [address] [id number] [address] [place] [phone] Apr, [facility] [address] [id number] [address] [place] [phone] Mar, [facility] [address] [id number] [address] [place] [phone] Mar, Bilateral low back pain with out sciatica M54.5 ; History of long- term use of multiple prescription drugs Z92.29 ; Anxiety F41.9 ; Chronic pain syndrome G89.4 ; Type 2 diabetes mellitus with complication E11.8 ; Long-term use of high-risk medication Z79.899 and Mixed hyperlipidemia E78.2 [facility] [address] [id number] [address] [place] [phone] Mar, [facility] [address] [id number] [address] [place] [phone] Mar, Chronic pain syndrome G89.4 [facility] [address] [id number] [address] [place] [phone] Mar, [facility] [address] [id number] [address] [place] [phone] Feb, [facility] [address] [id number] [address] [place] [id number] Feb, [facility] [address] [id number] [address] [place] [phone] Feb, [facility] [address] [id number] [address] [place] [id number] Feb, [facility] [address] [id number] [address] [place] [phone] Jan, [facility] [address] [facility] [id number] [address] [place] [phone] Jan, [facility] [address] [id number] [address] [place] [id number] Dec, [facility] [address] [id number] [address] [place] [id number] Dec, Lumbago 724.2 ; Diabetes thony litus without mention of complication, type II or unspecified type, not stated as uncontrolled 250.00 ; Essential hypertension, benign 401.1 ; Anxiety state, unspecified 300.00 ; Chronic pain 338.29 ; COPD with acute exacerbation 491.21 ; Tobacco abuse 305.1 ; Depression 311 and Hyperlipidemia 272.4 [facility] [address] [id number] [address] [place] [phone] Dec, [facility] [address] [facility] [id number] [address] [place] [phone] Nov, Lumbago 724.2 ; Diabetes thony litus without mention of complication, type II or unspecified type, not stated as uncontrolled 250.00 ; Essential hypertension, benign 401.1 ; Anxiety state, unspecified 300.00 ; Chronic pain 338.29 ; COPD with acute exacerbation 491.21 ; Tobacco abuse 305.1 and Depression 311 [facility] [address] [id number] [address] [place] [phone] Nov, [facility] [address] [id number] [address] [place] [phone] Nov, [facility] [address] [id number] [address] [place] [phone] Nov, [facility] [address] [id number] [address] [place] [phone] October, [facility] [address] [id number] [address] [place] [id number] October, [facility] [address] [id number] [address] [place] [id number] October, [facility] [address] [id number] [address] [place] [phone] October, [facility] [address] [id number] [address] [place] [phone] October, [facility] [address] [id number] [address] [place] [phone] Sep, [facility] [address] [facility] [id number] [address] [place] [phone] Sep, [facility] [address] [id number] [address] [place] [address], [place] [address] 13 Sep, 2014 [facility] [address] [id number] [address] [place] [address], [place] [address] 23 Aug, 2014 [facility] [address] [id number] [address] [place] [address], [place] [id number] 23 Aug, 2014 [facility] [address] [id number] [address] [place] [address], [place] [address] 20 Aug, 2014 [facility] [address] [id number] [address] [place] [address], [place] [address] 20 Aug, 2014 [facility] [address] [id number] [address] [place] [address], [place] [id number] 19 Aug, 2014 [facility] [address] [id number] [address] [place] [address], [place] [address] 19 Aug, 2014 [facility] [address] [id number] [address] [place] [address], [place] [address] 16 Aug, 2014 [facility] [address] [id number] [address] [place] [address], [place] [address] 16 Aug, 2014 [facility] [address] [id number] [address] [place] [address], [place] [address] 16 Aug, 2014 [facility] [address] [id number] [address] [place] [address], [place] [id number] 16 Aug, 2014 [facility] [address] [id number] [address] [place] [address], [place] [address] 13 Aug, 2014 [facility] [address] [id number] [address] [place] [address], [place] [address] 13 Aug, 2014 [facility] [address] [id number] [address] [place] [address], [place] [address] 24 Jul, 2014 [facility] [address] [id number] [address] [place] [address], [place] [address] 23 Jul, 2014 [facility] [address] [id number] [address] [place] [address], [place] [address] Jul, [facility] [address] [id number] [address] [place] [address], [place] [address] Jul, [facility] [address] [id number] [address] [place] [address], [place] [id number] Jul, [facility] [address] [id number] [address] [place] [address], [place] [address] Jul, [facility] [address] [id number] [address] [place] [address], [place] [address] Jul, [facility] [address] [id number] [address] [place] [address], [place] [address] Jun, [facility] [address] [id number] [address] [place] [address], [place] [address] Jun, [facility] [address] [id number] [address] [place] [address], [place] [address] Jun, [facility] [address] [id number] [address] [place] [address], [place] [address] Jun, [facility] [address] [id number] [address] [place] [address], [place] [address] Jun, [facility] [address] [id number] [address] [place] [address], [place] [address] Jun, [facility] [address] [id number] [address] [place] [address], [place] [address] Jun, [facility] [address] [id number] [address] [place] [address], [place] [address] Jun, [facility] [address] [id number] [address] [place] [address], [place] [address] Jun, [facility] [address] [id number] [address] [place] [address], [place] [address] May, [facility] [address] [id number] [address] [place] [address], [place] [address] May, [facility] [address] [id number] [address] [place] [address], [place] [address] 30 May, 2014 [facility] [address] [id number] [address] [place] [address], [place] [address] 30 May, 2014 [facility] [address] [id number] [address] [place] [address], [place] [address] 17 May, 2014 [facility] [address] [id number] [address] [place] [address], [place] [address] 15 May, 2014 [facility] [address] [id number] [address] [place] [address], [place] [address] 15 May, 2014 [facility] [address] [id number] [address] [place] [address], [place] [address] 12 May, 2014 [facility] [address] [id number] [address] [place] [address], [place] [address] May, [facility] [address] [id number] [address] [place] [address], [place] [address] May, [facility] [address] [id number] [address] [place] [address], [place] [address] May, [facility] [address] [id number] [address] [place] [address], [place] [address] Apr, [facility] [address] [id number] [address] [place] [address], [place] [address] Apr, [facility] [address] [id number] [address] [place] [address], [place] [address] Apr, [facility] [address] [id number] [address] [place] [address], [place] [address] Apr, [facility] [address] [id number] [address] [place] [address], [place] [address] 29 Mar, 2014 [facility] [address] [id number] [address] [place] [address], [place] [address] 29 Mar, 2014 [facility] [address] [id number] [address] [place] [address], [place] [address] Mar, [facility] [address] [id number] [address] [place] [address], [place] [address] 2014 [facility] [address] [id number] [address] [place] [address], [place] [address] Mar, [facility] [address] [id number] [address] [place] [address], [place] [address] Mar, [facility] [address] [id number] [address] [place] [address], [place] [address] 29 Feb, 2014 [facility] [address] [id number] [address] [place] [address], [place] [address] 29 Feb, 2014 [facility] [address] [id number] [address] [place] [address], [place] [address] 17 Feb, 2014 [facility] [address] [id number] [address] [place] [address], [place] [address] 16 Feb, 2014 [facility] [address] [id number] [address] [place] [address], [place] [address] 16 Feb, 2014 [facility] [address] [id number] [address] [place] [address], [place] [address] Feb, [facility] [address] [id number] [address] [place] [address], [place] [address] 03 Feb, 2014 [facility] [address] [id number] [address] [place] [address], [place] [address] Jan, [facility] [address] [id number] [address] [place] [address], [place] [address] Jan, [facility] [address] [id number] [address] [place] [address], [place] [address] Jan, [facility] [address] [id number] [address] [place] [address], [place] [address] Jan, [facility] [address] [id number] [address] [place] [address], [place] [address] Dec, [facility] [address] [id number] [place] [address] Dec, [facility] [address] [facility] [id number] [address] [place] [id number] Dec, [facility] [address] [facility] [id number] [address] [place] [id number] Dec, IMMUNIZATIONS No Known Immunizations SOCIAL HISTORY [...]
--- OUTSIDE RECORDS SUMMARY | 2019-10-29 01:16 | XMS REPORT ---
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 Name Role Phone ANGE REYNOSO Unavailable PROBLEMS Type Condition ICD9-CM Code [id number] Code Onset Dates Condition S tatus SNOMED Code Problem Bilateral low back pain without sciatica M54.5 Active 296056965 Problem Anxiety F41.9 Active 55228529 Problem Chronic pain syndrome G89.4 Active 580855576 Problem Thrush B37.0 Active 10247806 Problem Type 2 diabetes mellitus with complication E11.8 Active 23690225 Problem COPD with acute exacerbation J44.1 A ctive 998296643 Problem History of long-term use of multiple prescription drugs Z92.29 Active 384134831 Problem Essential hypertension I10 Active 41984495 Problem Mixed hyperlipidemia E78.2 Active 366928547 Problem Long-term use of high-risk medication Z79.899 Active 522361154 Problem Chronic obstructive pulmonary disease, unspecified COPD ty pe J44.9 Active [id number] ALLERGIES No Information ENCOUNTERS Encounter Location Date Diagnosis [facility] [id number] [place] [phone] Nov, [facility] [address] [id number] [address] [place] [phone] October, Scabies B86 [facility] [address] [id number] [address] [place] [phone] October, Acute upper respiratory infe ction, unspecified J06.9 [facility] [address] [id number] [address] [place] [id number] October, Dysuria R30.0 and Coughing R 05 [facility] [id number] [place] [phone] Aug, [facility] [place] [address] [id number] [address] [place] [phone] Jun, [facility] [place] [address] [id number] [address] [place] [phone] Jun, [facility] [address] [id number] [address] [place] [id number] Jun, [facility] [place] [address] [id number] [address] [place] [phone] May, [facility] [place] [address] [id number] [address] [place] [phone] May, [facility] [place] [address] [facility] [id number] [address] [place] [phone] May, [facility] [place] [address] [facility] [id number] [address] [place] [phone] Apr, Type 2 diabetes mellitus wit h complication E11.8 ; Chronic pain syndrome G89.4 ; Bilateral low back pain without sciatica M54.5 ; Essential hypertension I10 ; Anxiety F41.9 ; COPD with acute exacerbation J44.1 ; Pain of left hand M79.642 and Pain in right hand M79.641 [facility] [place] [address] [id number] [address] [place] [id number] Apr, [facility] [place] [address] [id number] [address] [place] [id number] Mar, [facility] [place] [address] [id number] [address] [place] [phone] Mar, [facility] [place] [address] [id number] [address] [place] [id number] Mar, [facility] [place] [address] [facility] [id number] [address] [place] [phone] Feb, [facility] [place] [address] [facility] [id number] [address] [place] [id number] Feb, [facility] [place] [address] [id number] [address] [place] [id number] Jan, Type 2 diabetes mellitus wit h complication E11.8 ; Chronic pain syndrome G89.4 ; Bilateral low back pain without sciatica M54.5 ; Essential hypertension I10 ; Anxiety F41.9 ; Chronic obstructive pulmonary disease, unspecified COPD type J44.9 and Thrush B37.0 [facility] [place] [address] [id number] [address] [place] [phone] Jan, [facility] [place] [address] [id number] [address] [place] [phone] Dec, [facility] [address] [id number] [address] [place] [phone] Dec, [facility] [address] [id number] [address] [place] [phone] Nov, [facility] [place] [address] [id number] [address] [place] [phone] Nov, [facility] [place] [address] [id number] [address] [place] [phone] Nov, [facility] [place] [address] [facility] [id number] [address] [place] [phone] Nov, Chest pain, unspecified type R07.9 and COPD exacerbation J44.1 [facility] [place] [address] [id number] [address] [place] [phone] October, [facility] [place] [address] [facility] [id number] [address] [place] [phone] Sep, [facility] [place] [address] [id number] [address] [place] [id number] Sep, Type 2 diabetes mellitus wit h complication E11.8 ; Chronic pain syndrome G89.4 ; Bilateral low back pain without sciatica M54.5 ; Essential hypertension I10 ; Anxiety F41.9 and COPD exacerbation J44.1 [facility] [place] [address] [facility] [id number] [address] [place] [phone] Aug, [facility] [place] [address] [facility] [id number] [address] [place] [phone] Aug, [facility] [place] [address] [facility] [id number] [address] [place] [phone] Aug, Chronic pain syndrome G89.4 [facility] [place] [address] [facility] [id number] [address] [place] [phone] Aug, [facility] [place] [id number] [place] [phone] Aug, [facility] [place] [id number] [place] [phone] Jul, Chronic pain syndrome G89.4 and Anxiety F41.9 [facility] [place] [address] [id number] [address] [place] [phone] Jul, [facility] [place] [address] [address] Jun, Bilateral low back pain with out sciatica M54.5 ; Chronic pain syndrome G89.4 ; Anxiety F41.9 ; History of long-term use of multiple prescription drugs Z92.29 ; Type 2 diabetes mellitus with complication E11.8 ; Long-term use of high-risk medication Z79.899 ; Mixed hyperlipidemia E78.2 and Essential hypertension I10 [facility] [place] [address] [id number] [address] [place] [phone] Jun, [facility] [place] [address] [id number] [address] [place] [phone] Jun, [facility] [place] [address] [facility] [id number] [address] [place] [phone] May, [facility] [place] [address] [id number] [address] [place] [phone] Apr, [facility] [place] [address] [id number] [address] [place] [id number] Mar, [facility] [address] [id number] [address] [place] [id number] Mar, Bilateral low back pain with out sciatica M54.5 ; History of long- term use of multiple prescription drugs Z92.29 ; Anxiety F41.9 ; Chronic pain syndrome G89.4 ; Type 2 diabetes mellitus with complication E11.8 ; Long-term use of high-risk medication Z79.899 and Mixed hyperlipidemia E78.2 [facility] [place] [address] [id number] [address] [place] [phone] Mar, [facility] [address] [id number] [address] [place] [phone] Mar, Chronic pain syndrome G89.4 [facility] [place] [address] [id number] [address] [place] [phone] Mar, [facility] [address] [id number] [address] [place] [phone] Feb, [facility] [place] [address] [id number] [address] [place] [phone] Feb, [facility] [place] [address] [id number] [address] [place] [id number] Feb, [facility] [place] [address] [id number] [address] [place] [phone] Feb, [facility] [address] [id number] [address] [place] [phone] Jan, [facility] [place] [address] [facility] [id number] [address] [place] [phone] Jan, [facility] [address] [id number] [address] [place] [id number] Dec, [facility] [place] [address] [id number] [address] [place] [phone] Dec, Lumbago 724.2 ; Diabetes thony litus without mention of complication, type II or unspecified type, not stated as uncontrolled 250.00 ; Essential hypertension, benign 401.1 ; Anxiety state, unspecified 300.00 ; Chronic pain 338.29 ; COPD with acute exacerbation 491.21 ; Tobacco abuse 305.1 ; Depression 311 and Hyperlipidemia 272.4 [facility] [place] [address] [id number] [address] [place] [phone] Dec, [facility] [place] [address] [facility] [id number] [address] [place] [id number] Nov, Lumbago 724.2 ; Diabetes thony litus without mention of complication, type II or unspecified type, not stated as uncontrolled 250.00 ; Essential hypertension, benign 401.1 ; Anxiety state, unspecified 300.00 ; Chronic pain 338.29 ; COPD with acute exacerbation 491.21 ; Tobacco abuse 305.1 and Depression 311 [facility] [place] [address] [id number] [address] [place] [id number] Nov, [facility] [place] [address] [id number] [address] [place] [id number] Nov, [facility] [place] [address] [id number] [address] [place] [phone] Nov, [facility] [place] [address] [id number] [address] [place] [phone] October, [facility] [place] [address] [id number] [address] [place] [phone] October, [facility] [place] [address] [id number] [address] [place] [id number] October, [facility] [place] [address] [id number] [address] [place] [phone] October, [facility] [place] [address] [id number] [address] [place] [id number] October, [facility] [address] [id number] [address] [place] [phone] Sep, [facility] [place] [address] [facility] [id number] [address] [place] [id number] Sep, [facility] [address] [id number] [address] [place] [address], [place] [address] 13 Sep, 2014 [facility] [address] [id number] [address] [place] [address], [place] [address] 23 Aug, 2014 [facility] [address] [id number] [address] [place] [address], [place] [address] 23 Aug, 2014 [facility] [address] [id number] [address] [place] [address], [place] [address] 20 Aug, 2014 [facility] [address] [id number] [address] [place] [address], [place] [address] 20 Aug, 2014 [facility] [address] [id number] [address] [place] [address], [place] [address] 19 Aug, 2014 [facility] [address] [id number] [address] [place] [address], [place] [address] 19 Aug, 2014 [facility] [address] [id number] [address] [place] [address], [place] [address] 16 Aug, 2014 [facility] [address] [id number] [address] [place] [address], [place] [address] 16 Aug, 2014 [facility] [address] [id number] [address] [place] [address], [place] [address] 16 Aug, 2014 [facility] [address] [id number] [address] [place] [address], [place] [address] 16 Aug, 2014 [facility] [address] [id number] [address] [place] [address], [place] [address] 13 Aug, 2014 [facility] [address] [id number] [address] [place] [address], [place] [address] 13 Aug, 2014 [facility] [address] [id number] [address] [place] [address], [place] [address] 24 Jul, 2014 [facility] [address] [id number] [address] [place] [address], [place] [address] 23 Jul, 2014 [facility] [address] [id number] [address] [place] [address], [place] [address] Jul, [facility] [address] [id number] [address] [place] [address], [place] [address] Jul, [facility] [address] [id number] [address] [place] [address], [place] [address] Jul, [facility] [address] [id number] [address] [place] [address], [place] [address] Jul, [facility] [address] [id number] [address] [place] [address], [place] [address] Jul, [facility] [address] [id number] [address] [place] [address], [place] [address] Jun, [facility] [address] [id number] [address] [place] [address], [place] [address] Jun, [facility] [address] [id number] [address] [place] [address], [place] [address] Jun, [facility] [address] [id number] [address] [place] [address], [place] [address] Jun, [facility] [address] [id number] [address] [place] [address], [place] [address] Jun, [facility] [address] [id number] [address] [place] [address], [place] [address] Jun, [facility] [address] [id number] [address] [place] [address], [place] [address] Jun, [facility] [address] [id number] [address] [place] [address], [place] [address] Jun, [facility] [address] [id number] [address] [place] [address], [place] [address] Jun, [facility] [address] [id number] [address] [place] [address], [place] [address] May, [facility] [address] [id number] [address] [place] [address], [place] [address] May, [facility] [address] [id number] [address] [place] [address], [place] [address] 30 May, 2014 [facility] [address] [id number] [address] [place] [address], [place] [address] 30 May, 2014 [facility] [address] [id number] [address] [place] [address], [place] [address] 17 May, 2014 [facility] [address] [id number] [address] [place] [address], [place] [address] 15 May, 2014 [facility] [address] [id number] [address] [place] [address], [place] [address] 15 May, 2014 [facility] [address] [id number] [address] [place] [address], [place] [id number] 12 May, 2014 [facility] [address] [id number] [address] [place] [address], [place] [address] May, [facility] [address] [id number] [address] [place] [address], [place] [address] May, [facility] [address] [id number] [address] [place] [address], [place] [address] May, [facility] [address] [id number] [address] [place] [address], [place] [address] Apr, [facility] [address] [id number] [address] [place] [address], [place] [address] Apr, [facility] [address] [id number] [address] [place] [address], [place] [address] Apr, [facility] [address] [id number] [address] [place] [address], [place] [address] Apr, [facility] [address] [id number] [address] [place] [address], [place] [address] 29 Mar, 2014 [facility] [address] [id number] [address] [place] [address], [place] [address] 29 Mar, 2014 [facility] [address] [id number] [address] [place] [address], [place] [address] Mar, [facility] [address] [id number] [address] [place] [address], [place] [address] 2014 [facility] [address] [id number] [address] [place] [address], [place] [address] Mar, [facility] [address] [id number] [address] [place] [address], [place] [address] Mar, [facility] [address] [id number] [address] [place] [address], [place] [address] 29 Feb, 2014 [facility] [address] [id number] [address] [place] [address], [place] [address] 29 Feb, 2014 [facility] [address] [id number] [address] [place] [address], [place] [address] 17 Feb, 2014 [facility] [address] [id number] [address] [place] [address], [place] [id number] 16 Feb, 2014 [facility] [address] [id number] [address] [place] [address], [place] [id number] 16 Feb, 2014 [facility] [address] [id number] [address] [place] [address], [place] [id number] Feb, [facility] [address] [id number] [address] [place] [address], [place] [id number] 03 Feb, 2014 [facility] [address] [id number] [address] [place] [address], [place] [id number] Jan, [facility] [address] [id number] [address] [place] [address], [place] [id number] Jan, [facility] [address] [id number] [address] [place] [address], [place] [id number] Jan, [facility] [address] [id number] [address] [place] [address], [place] [id number] Jan, [facility] [address] [id number] [address] [place] [address], [place] [id number] Dec, [facility] [address] [id number] [address] [place] [address] Dec, [facility] [place] [address] [facility] [id number] [address] [place] [id number] Dec, [facility] [place] [address] [facility] [id number] [address] [place] [id number] Dec, IMMUNIZATIONS No Known Immunizations SOCIAL HISTORY [...]
--- OUTSIDE RECORDS SUMMARY | 2019-10-29 01:16 | XMS REPORT ---
Author Author RICOVeronica Ferrell ANGE Organization [facility] Address [address] [place] [address] Care Team Providers Care Observer [employer] Name Role Phone ANGE REYNOSO Unavailable PROBLEMS Type Condition ICD9-CM Code KML63-CO Code Onset Dates Condition S tatus SNOMED Code Problem Bilateral low back pain without sciatica M54.5 Active 315546975 Problem Anxiety F41.9 Active 22209785 Problem Chronic pain syndrome G89.4 Active 668732772 Problem Thrush B37.0 Active 43872768 Problem Type 2 diabetes mellitus with complication E11.8 Active 02889016 Problem COPD with acute exacerbation J44.1 A ctive 469799649 Problem History of long-term use of multiple prescription drugs Z92.29 Active 899302184 Problem Essential hypertension I10 Active 88148821 Problem Mixed hyperlipidemia E78.2 Active 447165914 Problem Long-term use of high-risk medication Z79.899 Active 398137055 Problem Chronic obstructive pulmonary disease, unspecified COPD ty pe J44.9 Active 73235115 ALLERGIES No Information ENCOUNTERS Encounter Location Date Diagnosis [facility] [address] [id number] [address] [place] [phone] Nov, [facility] [address] [id number] [address] [place] [phone] October, Scabies B86 [facility] [address] [id number] [address] [place] [phone] October, Acute upper respiratory infe ction, unspecified J06.9 [facility] [address] [id number] [address] [place] [phone] October, Dysuria R30.0 and Coughing R 05 [facility] [id number] [place] [phone] Aug, [facility] [address] [id number] [address] [place] [id number] Jun, [facility] [address] [id number] [address] [place] [phone] Jun, [facility] [address] [id number] [address] [place] [phone] Jun, [facility] [address] [id number] [address] [place] [phone] May, [facility] [address] [id number] [address] [place] [id number] May, [facility] [address] [facility] [id number] [address] [place] [phone] May, [facility] [address] [facility] [id number] [address] [place] [phone] Apr, Type 2 diabetes mellitus wit h complication E11.8 ; Chronic pain syndrome G89.4 ; Bilateral low back pain without sciatica M54.5 ; Essential hypertension I10 ; Anxiety F41.9 ; COPD with acute exacerbation J44.1 ; Pain of left hand M79.642 and Pain in right hand M79.641 [facility] [address] [id number] [address] [place] [phone] Apr, [facility] [address] [id number] [address] [place] [id number] Mar, [facility] [address] [id number] [address] [place] [phone] Mar, [facility] [address] [id number] [address] [place] [phone] Mar, [facility] [address] [facility] [id number] [address] [place] [phone] Feb, [facility] [address] [facility] [id number] [address] [place] [phone] Feb, [facility] [address] [id number] [address] [place] [address] Jan, Type 2 diabetes mellitus wit h complication E11.8 ; Chronic pain syndrome G89.4 ; Bilateral low back pain without sciatica M54.5 ; Essential hypertension I10 ; Anxiety F41.9 ; Chronic obstructive pulmonary disease, unspecified COPD type J44.9 and Thrush B37.0 [facility] [address] [id number] [address] [place] [phone] Jan, [facility] [address] [id number] [address] [place] [phone] Dec, [facility] [address] [id number] [address] [place] [phone] Dec, [facility] [address] [id number] [address] [place] [phone] Nov, [facility] [address] [id number] [address] [place] [phone] Nov, [facility] [address] [id number] [address] [place] [phone] Nov, [facility] [address] [facility] [id number] [address] [place] [phone] Nov, Chest pain, unspecified type R07.9 and COPD exacerbation J44.1 [facility] [address] [id number] [address] [place] [phone] October, [facility] [address] [facility] [id number] [address] [place] [phone] Sep, [facility] [address] [id number] [address] [place] [phone] Sep, Type 2 diabetes mellitus wit h complication E11.8 ; Chronic pain syndrome G89.4 ; Bilateral low back pain without sciatica M54.5 ; Essential hypertension I10 ; Anxiety F41.9 and COPD exacerbation J44.1 [facility] [address] [facility] [id number] [address] [place] [phone] Aug, [facility] [address] [facility] [id number] [address] [place] [phone] Aug, [facility] [address] [facility] [id number] [address] [place] [phone] Aug, Chronic pain syndrome G89.4 [facility] [address] [facility] [id number] [address] [place] [phone] Aug, [facility] [id number] [place] [address] Aug, [facility] [id number] [place] [address] Jul, Chronic pain syndrome G89.4 and Anxiety F41.9 [facility] [address] [id number] [address] [place] [phone] Jul, [facility] [address] [address] Jun, Bilateral low back pain with out sciatica M54.5 ; Chronic pain syndrome G89.4 ; Anxiety F41.9 ; History of long-term use of multiple prescription drugs Z92.29 ; Type 2 diabetes mellitus with complication E11.8 ; Long-term use of high-risk medication Z79.899 ; Mixed hyperlipidemia E78.2 and Essential hypertension I10 [facility] [address] [id number] [address] [place] [phone] Jun, [facility] [address] [id number] [address] [place] [phone] Jun, [facility] [address] [facility] [id number] [address] [place] [phone] May, [facility] [address] [id number] [address] [place] [phone] Apr, [facility] [address] [id number] [address] [place] [phone] Mar, [facility] [address] [id number] [address] [place] [phone] Mar, Bilateral low back pain with out sciatica M54.5 ; History of long- term use of multiple prescription drugs Z92.29 ; Anxiety F41.9 ; Chronic pain syndrome G89.4 ; Type 2 diabetes mellitus with complication E11.8 ; Long-term use of high-risk medication Z79.899 and Mixed hyperlipidemia E78.2 [facility] [address] [id number] [address] [place] [phone] Mar, [facility] [address] [id number] [address] [place] [phone] Mar, Chronic pain syndrome G89.4 [facility] [id number] [address] [place] [phone] Mar, [facility] [address] [id number] [address] [place] [phone] Feb, [facility] [address] [id number] [address] [place] [phone] Feb, [facility] [address] [id number] [address] [place] [phone] Feb, [facility] [address] [id number] [address] [place] [phone] Feb, [facility] [address] [id number] [address] [place] [phone] Jan, [facility] [address] [facility] [id number] [address] [place] [phone] Jan, [facility] [address] [id number] [address] [place] [phone] Dec, [facility] [address] [id number] [address] [place] [phone] Dec, Lumbago 724.2 ; Diabetes thony litus without mention of complication, type II or unspecified type, not stated as uncontrolled 250.00 ; Essential hypertension, benign 401.1 ; Anxiety state, unspecified 300.00 ; Chronic pain 338.29 ; COPD with acute exacerbation 491.21 ; Tobacco abuse 305.1 ; Depression 311 and Hyperlipidemia 272.4 [facility] [address] [id number] [address] [place] [phone] Dec, [facility] [address] [facility] [id number] [address] [place] [address] Nov, Lumbago 724.2 ; Diabetes thony litus without mention of complication, type II or unspecified type, not stated as uncontrolled 250.00 ; Essential hypertension, benign 401.1 ; Anxiety state, unspecified 300.00 ; Chronic pain 338.29 ; COPD with acute exacerbation 491.21 ; Tobacco abuse 305.1 and Depression 311 [facility] [address] [id number] [address] [place] [phone] Nov, [facility] [address] [id number] [address] [place] [phone] Nov, [facility] [address] [id number] [address] [place] [phone] Nov, [facility] [address] [id number] [address] [place] [phone] October, [facility] [address] [id number] [address] [place] [phone] October, [facility] [address] [id number] [address] [place] [phone] October, [facility] [address] [id number] [address] [place] [phone] October, [facility] [address] [id number] [address] [place] [phone] October, [facility] [address] [id number] [address] [place] [phone] Sep, [facility] [address] [facility] [id number] [address] [place] [phone] Sep, [facility] [address] [id number] [address] [place] [address], [place] [address] 13 Sep, 2014 [facility] [address] [id number] [address] [place] [address], [place] [address] 23 Aug, 2014 [facility] [address] [id number] [address] [place] [address], [place] [address] 23 Aug, 2014 [facility] [address] [id number] [address] [place] [address], [place] [address] 20 Aug, 2014 [facility] [address] [id number] [address] [place] [address], [place] [address] 20 Aug, 2014 [facility] [address] [id number] [address] [place] [address], [place] [address] 19 Aug, 2014 [facility] [address] [id number] [address] [place] [address], [place] [address] 19 Aug, 2014 [facility] [address] [id number] [address] [place] [address], [place] [address] 16 Aug, 2014 [facility] [address] [id number] [address] [place] [address], [place] [address] 16 Aug, 2014 [facility] [address] [id number] [address] [place] [address], [place] [address] 16 Aug, 2014 [facility] [address] [id number] [address] [place] [address], [place] [address] 16 Aug, 2014 [facility] [address] [id number] [address] [place] [address], [place] [address] 13 Aug, 2014 [facility] [address] [id number] [address] [place] [address], [place] [address] 13 Aug, 2014 [facility] [address] [id number] [address] [place] [address], [place] [address] 24 Jul, 2014 [facility] [address] [id number] [address] [place] [address], [place] [address] 23 Jul, 2014 [facility] [address] [id number] [address] [place] [address], [place] [address] Jul, [facility] [address] [id number] [address] [place] [address], [place] [address] Jul, [facility] [address] [id number] [address] [place] [address], [place] [address] Jul, [facility] [address] [id number] [address] [place] [address], [place] [address] Jul, [facility] [address] [id number] [address] [place] [address], [place] [address] Jul, [facility] [address] [id number] [address] [place] [address], [place] [address] Jun, [facility] [address] [id number] [address] [place] [address], [place] [address] Jun, [facility] [address] [id number] [address] [place] [address], [place] [address] Jun, [facility] [address] [id number] [address] [place] [address], [place] [address] Jun, [facility] [address] [id number] [address] [place] [address], [place] [address] Jun, [facility] [address] [id number] [address] [place] [address], [place] [address] Jun, [facility] [address] [id number] [address] [place] [address], [place] [address] Jun, [facility] [address] [id number] [address] [place] [address], [place] [address] Jun, [facility] [address] [id number] [address] [place] [address], [place] [address] Jun, [facility] [address] [id number] [address] [place] [address], [place] [address] May, [facility] [address] [id number] [address] [place] [address], [place] [address] May, [facility] [address] [id number] [address] [place] [address], [place] [address] 30 May, 2014 [facility] [address] [id number] [address] [place] [address], [place] [address] 30 May, 2014 [facility] [address] [id number] [address] [place] [address], [place] [address] 17 May, 2014 [facility] [address] [id number] [address] [place] [address], [place] [address] 15 May, 2014 [facility] [address] [id number] [address] [place] [address], [place] [address] 15 May, 2014 [facility] [address] [id number] [address] [place] [address], [place] [address] 12 May, 2014 [facility] [address] [id number] [address] [place] [address], [place] [address] May, [facility] [address] [id number] [address] [place] [address], [place] [address] May, [facility] [address] [id number] [address] [place] [address], [place] [address] May, [facility] [address] [id number] [address] [place] [address], [place] [address] Apr, [facility] [address] [id number] [address] [place] [address], [place] [address] Apr, [facility] [address] [id number] [address] [place] [address], [place] [address] Apr, [facility] [address] [id number] [address] [place] [address], [place] [address] Apr, [facility] [address] [id number] [address] [place] [address], [place] [address] 29 Mar, 2014 [facility] [address] [id number] [address] [place] [address], [place] [address] 29 Mar, 2014 [facility] [address] [id number] [address] [place] [address], [place] [address] Mar, [facility] [address] [id number] [address] [place] [address], [place] [address] 2014 [facility] [address] [id number] [address] [place] [address], [place] [address] Mar, [facility] [address] [id number] [address] [place] [address], [place] [address] Mar, [facility] [address] [id number] [address] [place] [address], [place] [address] 29 Feb, 2014 [facility] [address] [id number] [address] [place] [address], [place] [address] 29 Feb, 2014 [facility] [address] [id number] [address] [place] [address], [place] [address] 17 Feb, 2014 [facility] [address] [id number] [address] [place] [address], [place] [address] 16 Feb, 2014 [facility] [address] [id number] [address] [place] [address], [place] [address] 16 Feb, 2014 [facility] [address] [id number] [address] [place] [address], [place] [address] Feb, [facility] [address] [id number] [address] [place] [address], [place] [address] 03 Feb, 2014 [facility] [address] [id number] [address] [place] [address], [place] [address] Jan, [facility] [address] [id number] [address] [place] [address], [place] [address] Jan, [facility] [address] [id number] [address] [place] [address], [place] [address] Jan, [facility] [address] [id number] [address] [place] [address], [place] [address] Jan, [facility] [address] [id number] [address] [place] [address], [place] [address] Dec, [facility] [address] [id number] [address] [address] Dec, [facility] [address] [facility] [id number] [address] [place] [place] [address] Dec, [facility] [address] [facility] [id number] [address] [place] [address] Dec, IMMUNIZATIONS No Known Immunizations SOCIAL HISTORY [...]
--- OUTSIDE RECORDS SUMMARY | 2019-10-29 01:16 | XMS REPORT ---
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 Name Role Phone ANGE REYNOSO Unavailable PROBLEMS Type Condition ICD9-CM Code UZE08-QT Code Onset Dates Condition S tatus SNOMED Code Problem Bilateral low back pain without sciatica M54.5 Active 408116684 Problem Anxiety F41.9 Active 61280856 Problem Chronic pain syndrome G89.4 Active 588466033 Problem Thrush B37.0 Active 78150772 Problem Type 2 diabetes mellitus with complication E11.8 Active 52306665 Problem COPD with acute exacerbation J44.1 A ctive 362928969 Problem History of long-term use of multiple prescription drugs Z92.29 Active 739365698 Problem Essential hypertension I10 Active 41793985 Problem Mixed hyperlipidemia E78.2 Active 549821052 Problem Long-term use of high-risk medication Z79.899 Active 179076316 Problem Chronic obstructive pulmonary disease, unspecified COPD ty pe J44.9 Active 97847277 ALLERGIES No Information ENCOUNTERS Encounter Location Date Diagnosis [facility] [address] [id number] [address] [place] [phone] Nov, [facility] [address] [id number] [address] [place] [address] October, Scabies B86 [facility] [address] [id number] [address] [place] [address] October, Acute upper respiratory infe ction, unspecified J06.9 [facility] [address] [id number] [address] [place] [address] October, Dysuria R30.0 and Coughing R 05 [facility] [id number] [place] [address] Aug, [facility] [address] [id number] [address] [place] [address] Jun, [facility] [address] [id number] [address] [place] [address] Jun, [facility] [address] [id number] [address] [place] [address] Jun, [facility] [address] [id number] [address] [place] [address] May, [facility] [address] [id number] [address] [place] [address] May, [facility] [address] [facility] [id number] [address] [place] [address] May, [facility] [address] [facility] [id number] [address] [place] [address] Apr, Type 2 diabetes mellitus wit h complication E11.8 ; Chronic pain syndrome G89.4 ; Bilateral low back pain without sciatica M54.5 ; Essential hypertension I10 ; Anxiety F41.9 ; COPD with acute exacerbation J44.1 ; Pain of left hand M79.642 and Pain in right hand M79.641 [facility] [address] [id number] [address] [place] [address] Apr, [facility] [address] [id number] [address] [place] [address] Mar, [facility] [address] [id number] [address] [place] [address] Mar, [facility] [address] [id number] [address] [place] [address] Mar, [facility] [address] [facility] [id number] [address] [place] [address] Feb, [facility] [address] [facility] [id number] [address] [place] [address] Feb, [facility] [address] [id number] [address] [place] [address] Jan, Type 2 diabetes mellitus wit h complication E11.8 ; Chronic pain syndrome G89.4 ; Bilateral low back pain without sciatica M54.5 ; Essential hypertension I10 ; Anxiety F41.9 ; Chronic obstructive pulmonary disease, unspecified COPD type J44.9 and Thrush B37.0 [facility] [address] [id number] [address] [place] [address] Jan, [facility] [address] [id number] [address] [place] [address] Dec, [facility] [address] [id number] [address] [place] [address] Dec, [facility] [address] [id number] [address] [place] [address] Nov, [facility] [address] [id number] [address] [place] [address] Nov, [facility] [address] [id number] [address] [place] [address] Nov, [facility] [address] [facility] [id number] [address] [place] [address] Nov, Chest pain, unspecified type R07.9 and COPD exacerbation J44.1 [facility] [address] [id number] [address] [place] [address] October, [facility] [address] [facility] [id number] [address] [place] [address] Sep, [facility] [address] [id number] [address] [place] [address] Sep, Type 2 diabetes mellitus wit h complication E11.8 ; Chronic pain syndrome G89.4 ; Bilateral low back pain without sciatica M54.5 ; Essential hypertension I10 ; Anxiety F41.9 and COPD exacerbation J44.1 [facility] [address] [facility] [id number] [address] [place] [address] Aug, [facility] [address] [facility] [id number] [address] [place] [address] Aug, [facility] [address] [facility] [id number] [address] [place] [address] Aug, Chronic pain syndrome G89.4 [facility] [address] [facility] [id number] [address] [place] [address] Aug, [facility] [id number] [place] [address] Aug, [facility] [id number] [place] [address] Jul, Chronic pain syndrome G89.4 and Anxiety F41.9 [facility] [address] [id number] [address] [place] [address] Jul, [facility] [address] [address] Jun, Bilateral low back pain with out sciatica M54.5 ; Chronic pain syndrome G89.4 ; Anxiety F41.9 ; History of long-term use of multiple prescription drugs Z92.29 ; Type 2 diabetes mellitus with complication E11.8 ; Long-term use of high-risk medication Z79.899 ; Mixed hyperlipidemia E78.2 and Essential hypertension I10 [facility] [address] [id number] [address] [place] [address] Jun, [facility] [address] [id number] [address] [place] [address] Jun, [facility] [address] [facility] [id number] [address] [place] [address] May, [facility] [address] [id number] [address] [place] [phone] Apr, [facility] [address] [id number] [address] [place] [address] Mar, [facility] [address] [id number] [address] [place] [address] Mar, Bilateral low back pain with out sciatica M54.5 ; History of long- term use of multiple prescription drugs Z92.29 ; Anxiety F41.9 ; Chronic pain syndrome G89.4 ; Type 2 diabetes mellitus with complication E11.8 ; Long-term use of high-risk medication Z79.899 and Mixed hyperlipidemia E78.2 [facility] [address] [id number] [address] [place] [address] Mar, [facility] [address] [id number] [address] [place] [address] Mar, Chronic pain syndrome G89.4 [facility] [address] [id number] [address] [place] [address] Mar, [facility] [address] [id number] [address] [place] [address] Feb, [facility] [address] [id number] [address] [place] [address] Feb, [facility] [address] [id number] [address] [place] [address] Feb, [facility] [address] [id number] [address] [place] [address] Feb, [facility] [address] [id number] [address] [place] [address] Jan, [facility] [address] [facility] [id number] [address] [place] [address] Jan, [facility] [address] [id number] [address] [place] [address] Dec, [facility] [address] [id number] [address] [place] [address] Dec, Lumbago 724.2 ; Diabetes thony litus without mention of complication, type II or unspecified type, not stated as uncontrolled 250.00 ; Essential hypertension, benign 401.1 ; Anxiety state, unspecified 300.00 ; Chronic pain 338.29 ; COPD with acute exacerbation 491.21 ; Tobacco abuse 305.1 ; Depression 311 and Hyperlipidemia 272.4 [facility] [address] [id number] [address] [place] [phone] Dec, [facility] [address] [facility] [id number] [address] [place] [address] Nov, Lumbago 724.2 ; Diabetes thony litus without mention of complication, type II or unspecified type, not stated as uncontrolled 250.00 ; Essential hypertension, benign 401.1 ; Anxiety state, unspecified 300.00 ; Chronic pain 338.29 ; COPD with acute exacerbation 491.21 ; Tobacco abuse 305.1 and Depression 311 [facility] [address] [id number] [address] [place] [address] Nov, [facility] [address] [id number] [address] [place] [address] Nov, [facility] [address] [id number] [address] [place] [address] Nov, [facility] [address] [id number] [address] [place] [address] October, [facility] [address] [id number] [address] [place] [address] October, [facility] [address] [id number] [address] [place] [address] October, [facility] [address] [id number] [address] [place] [address] October, [facility] [address] [id number] [address] [place] [phone] October, [facility] [address] [id number] [address] [place] [phone] Sep, [facility] [address] [facility] [id number] [address] [place] [phone] Sep, [facility] [address] [id number] [address] [place] [place] [address], [place] [address] 13 Sep, 2014 [facility] [address] [id number] [address] [address], [place] [address] 23 Aug, 2014 [facility] [address] [id number] [address] [place] [place] [address], [place] [address] 23 Aug, 2014 [facility] [address] [id number] [address] [place] [address], [place] [address] 20 Aug, 2014 [facility] [address] [id number] [address] [place] [address], [place] [address] 20 Aug, 2014 [facility] [address] [id number] [address] [place] [address], [place] [address] 19 Aug, 2014 [facility] [address] [id number] [address] [place] [address], [place] [address] 19 Aug, 2014 [facility] [address] [id number] [address] [place] [address], [place] [address] 16 Aug, 2014 [facility] [address] [id number] [address] [place] [address], [place] [address] 16 Aug, 2014 [facility] [address] [id number] [address] [place] [address], [place] [address] 16 Aug, 2014 [facility] [address] [id number] [address] [place] [address], [place] [address] 16 Aug, 2014 [facility] [address] [id number] [address] [place] [address], [place] [address] 13 Aug, 2014 [facility] [address] [id number] [address] [place] [address], [place] [address] 13 Aug, 2014 [facility] [address] [id number] [address] [place] [address], [place] [address] 24 Jul, 2014 [facility] [address] [id number] [address] [place] [place] [address], [place] [address] 23 Jul, 2014 [facility] [address] [id number] [address] [place] [address], [place] [address] Jul, [facility] [address] [id number] [address] [place] [address], [place] [address] Jul, [facility] [address] [id number] [address] [place] [place] [address], [place] [address] Jul, [facility] [address] [id number] [address] [place] [address], [place] [address] Jul, [facility] [address] [id number] [address] [place] [address], [place] [address] Jul, [facility] [address] [id number] [address] [place] [place] [address], [place] [address] Jun, [facility] [address] [id number] [address] [place] [place] [address], [place] [address] Jun, [facility] [address] [id number] [address] [place] [place] [address], [place] [address] Jun, [facility] [address] [id number] [address] [place] [place] [address], [place] [address] Jun, [facility] [address] [id number] [address] [place] [address], [place] [address] Jun, [facility] [address] [id number] [address] [place] [place] [address], [place] [address] Jun, [facility] [address] [id number] [address] [place] [address], [place] [address] Jun, [facility] [address] [id number] [address] [place] [address], [place] [address] Jun, [facility] [address] [id number] [address] [place] [place] [address], [place] [address] Jun, [facility] [address] [id number] [address] [place] [address], [place] [address] May, [facility] [address] [id number] [address] [place] [address], [place] [address] May, [facility] [address] [id number] [address] [place] [address], [place] [address] 30 May, 2014 [facility] [address] [id number] [address] [place] [address], [place] [address] 30 May, 2014 [facility] [address] [id number] [address] [place] [address], [place] [address] 17 May, 2014 [facility] [address] [id number] [address] [place] [address], [place] [address] 15 May, 2014 [facility] [address] [id number] [address] [place] [address], [place] [address] 15 May, 2014 [facility] [address] [id number] [address] [place] [address], [place] [address] 12 May, 2014 [facility] [address] [id number] [address] [place] [address], [place] [address] May, [facility] [address] [id number] [address] [place] [address], [place] [address] May, [facility] [address] [id number] [address] [place] [address], [place] [address] May, [facility] [address] [id number] [address] [place] [address], [place] [address] Apr, [facility] [address] [id number] [address] [place] [place] [address], [place] [address] Apr, [facility] [address] [id number] [address] [place] [address], [place] [address] Apr, [facility] [address] [id number] [address] [place] [address], [place] [address] Apr, [facility] [address] [id number] [address] [place] [address], [place] [address] 29 Mar, 2014 [facility] [address] [id number] [address] [place] [address], [place] [address] 29 Mar, 2014 [facility] [address] [id number] [address] [place] [address], [place] [address] Mar, [facility] [address] [id number] [address] [place] [address] [address] 2014 [facility] [address] [id number] [address] [place] [address], [place] [address] Mar, [facility] [address] [id number] [address] [place] [address], [place] [address] Mar, [facility] [address] [id number] [address] [place] [address], [place] [address] 29 Feb, 2014 [facility] [address] [id number] [address] [place] [address], [place] [address] 29 Feb, 2014 [facility] [address] [id number] [address] [place] [address], [place] [address] 17 Feb, 2014 [facility] [address] [id number] [address] [place] [address], [place] [address] 16 Feb, 2014 [facility] [address] [id number] [address] [place] [address], [place] [address] 16 Feb, 2014 [facility] [address] [id number] [address] [place] [address], [place] [address] Feb, [facility] [address] [id number] [address] [place] [address], [place] [address] 03 Feb, 2014 [facility] [address] [id number] [address] [place] [address], [place] [address] Jan, [facility] [address] [id number] [address] [place] [address], [place] [address] Jan, [facility] [address] [id number] [address] [place] [address], [place] [address] Jan, [facility] [address] [id number] [address] [place] [address], [place] [address] Jan, [facility] [address] [id number] [address] [place] [address], [place] [address] Dec, [facility] [address] [id number] [place] [address] Dec, [facility] [address] [facility] [id number] [address] [place] [address] Dec, [facility] [address] [facility] [id number] [address] [place] [address] Dec, IMMUNIZATIONS No Known Immunizations SOCIAL HISTORY [...]
--- OUTSIDE RECORDS SUMMARY | 2019-10-29 01:16 | XMS REPORT ---
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 Up Name Role Phone ANGE REYNOSO Unavailable PROBLEMS Type Condition ICD9-CM Code UBF06-UD Code Onset Dates Condition S tatus SNOMED Code Problem Bilateral low back pain without sciatica M54.5 Active 043032165 Problem Anxiety F41.9 Active 40880726 Problem Chronic pain syndrome G89.4 Active 363582242 Problem Thrush B37.0 Active 09081664 Problem Type 2 diabetes mellitus with complication E11.8 Active 94417392 Problem COPD with acute exacerbation J44.1 A ctive 339068917 Problem History of long-term use of multiple prescription drugs Z92.29 Active 080118827 Problem Essential hypertension I10 Active 22252311 Problem Mixed hyperlipidemia E78.2 Active 521578289 Problem Long-term use of high-risk medication Z79.899 Active 165684491 Problem Chronic obstructive pulmonary disease, unspecified COPD ty pe J44.9 Active 48021225 ALLERGIES No Information ENCOUNTERS Encounter Location Date Diagnosis [facility] [address] [id number] [address] [place] [address] Nov, [facility] [address] [id number] [place] [address] October, Scabies B86 [facility] [address] [id number] [address] [place] [address] October, Acute upper respiratory infe ction, unspecified J06.9 [facility] [address] [id number] [address] [place] [address] October, Dysuria R30.0 and Coughing R 05 [facility] [id number] [place] [address] Aug, [facility] [address] [id number] [address] [place] [address] Jun, [facility] [address] [id number] [address] [place] [address] Jun, [facility] [address] [id number] [address] [place] [address] Jun, [facility] [address] [id number] [address] [place] [address] May, [facility] [address] [id number] [address] [place] [address] May, [facility] [address] [facility] [id number] [address] [place] [phone] May, [facility] [address] [facility] [id number] [address] [place] [address] Apr, Type 2 diabetes mellitus wit h complication E11.8 ; Chronic pain syndrome G89.4 ; Bilateral low back pain without sciatica M54.5 ; Essential hypertension I10 ; Anxiety F41.9 ; COPD with acute exacerbation J44.1 ; Pain of left hand M79.642 and Pain in right hand M79.641 [facility] [address] [id number] [address] [place] [address] Apr, [facility] [address] [id number] [address] [place] [phone] Mar, [facility] [address] [id number] [address] [place] [address] Mar, [facility] [address] [id number] [address] [place] [address] Mar, [facility] [address] [facility] [id number] [address] [place] [id number] Feb, [facility] [address] [facility] [id number] [address] [place] [address] Feb, [facility] [address] [id number] [address] [place] [address] Jan, Type 2 diabetes mellitus wit h complication E11.8 ; Chronic pain syndrome G89.4 ; Bilateral low back pain without sciatica M54.5 ; Essential hypertension I10 ; Anxiety F41.9 ; Chronic obstructive pulmonary disease, unspecified COPD type J44.9 and Thrush B37.0 [facility] [address] [id number] [address] [place] [phone] Jan, [facility] [address] [id number] [address] [place] [address] Dec, [facility] [address] [id number] [address] [place] [address] Dec, [facility] [address] [id number] [address] [place] [address] Nov, [facility] [address] [id number] [address] [place] [address] Nov, [facility] [address] [id number] [address] [place] [address] Nov, [facility] [address] [facility] [id number] [address] [place] [address] Nov, Chest pain, unspecified type R07.9 and COPD exacerbation J44.1 [facility] [address] [id number] [address] [place] [phone] October, [facility] [address] [facility] [id number] [address] [place] [address] Sep, [facility] [address] [id number] [address] [place] [address] Sep, Type 2 diabetes mellitus wit h complication E11.8 ; Chronic pain syndrome G89.4 ; Bilateral low back pain without sciatica M54.5 ; Essential hypertension I10 ; Anxiety F41.9 and COPD exacerbation J44.1 [facility] [address] [facility] [id number] [address] [place] [phone] Aug, [facility] [address] [facility] [id number] [address] [place] [address] Aug, [facility] [address] [facility] [id number] [address] [place] [address] Aug, Chronic pain syndrome G89.4 [facility] [address] [facility] [id number] [address] [place] [address] Aug, [facility] [id number] [place] [address] Aug, [facility] [id number] [place] [address] Jul, Chronic pain syndrome G89.4 and Anxiety F41.9 [facility] [address] [id number] [address] [place] [address] Jul, [facility] [address] [address] Jun, Bilateral low back pain with out sciatica M54.5 ; Chronic pain syndrome G89.4 ; Anxiety F41.9 ; History of long-term use of multiple prescription drugs Z92.29 ; Type 2 diabetes mellitus with complication E11.8 ; Long-term use of high-risk medication Z79.899 ; Mixed hyperlipidemia E78.2 and Essential hypertension I10 [facility] [address] [id number] [address] [place] [phone] Jun, [facility] [address] [id number] [address] [place] [phone] Jun, [facility] [address] [facility] [id number] [address] [place] [address] May, [facility] [id number] [address] [place] [address] Apr, [facility] [id number] [address] [place] [address] Mar, [facility] [id number] [address] [place] [address] Mar, Bilateral low back pain with out sciatica M54.5 ; History of long- term use of multiple prescription drugs Z92.29 ; Anxiety F41.9 ; Chronic pain syndrome G89.4 ; Type 2 diabetes mellitus with complication E11.8 ; Long-term use of high-risk medication Z79.899 and Mixed hyperlipidemia E78.2 [facility] [address] [id number] [address] [place] [address] Mar, [facility] [address] [id number] [address] [place] [address] Mar, Chronic pain syndrome G89.4 [facility] [id number] [address] [place] [address] Mar, [facility] [id number] [address] [place] [address] Feb, [facility] [id number] [address] [place] [phone] Feb, [facility] [id number] [address] [place] [phone] Feb, [facility] [id number] [address] [place] [address] Feb, [facility] [id number] [address] [place] [address] Jan, [facility] [address] [facility] [id number] [address] [place] [address] Jan, [facility] [address] [id number] [address] [place] [address] Dec, [facility] [id number] [address] [place] [address] Dec, Lumbago 724.2 ; Diabetes thony litus without mention of complication, type II or unspecified type, not stated as uncontrolled 250.00 ; Essential hypertension, benign 401.1 ; Anxiety state, unspecified 300.00 ; Chronic pain 338.29 ; COPD with acute exacerbation 491.21 ; Tobacco abuse 305.1 ; Depression 311 and Hyperlipidemia 272.4 [facility] [address] [id number] [address] [place] [address] Dec, [facility] [address] [facility] [id number] [address] [place] [address] Nov, Lumbago 724.2 ; Diabetes thony litus without mention of complication, type II or unspecified type, not stated as uncontrolled 250.00 ; Essential hypertension, benign 401.1 ; Anxiety state, unspecified 300.00 ; Chronic pain 338.29 ; COPD with acute exacerbation 491.21 ; Tobacco abuse 305.1 and Depression 311 [facility] [address] [id number] [address] [place] [address] Nov, [facility] [address] [id number] [address] [place] [address] Nov, [facility] [address] [id number] [address] [place] [address] Nov, [facility] [address] [id number] [address] [place] [address] October, [facility] [address] [id number] [address] [place] [address] October, [facility] [address] [id number] [address] [place] [address] October, [facility] [address] [id number] [address] [place] [phone] October, [facility] [address] [id number] [address] [place] [address] October, [facility] [address] [id number] [address] [place] [address] Sep, [facility] [address] [facility] [id number] [address] [place] [phone] Sep, [facility] [address] [id number] [address] [place] [address], [place] [address] 13 Sep, 2014 [facility] [address] [id number] [address] [place] [address], [place] [address] 23 Aug, 2014 [facility] [address] [id number] [address] [place] [address], [place] [address] 23 Aug, 2014 [facility] [address] [id number] [address] [place] [address], [place] [address] 20 Aug, 2014 [facility] [address] [id number] [address] [place] [address], [place] [address] 20 Aug, 2014 [facility] [address] [id number] [address] [place] [address], [place] [address] 19 Aug, 2014 [facility] [address] [id number] [address] [place] [address], [place] [address] 19 Aug, 2014 [facility] [address] [id number] [address] [place] [address], [place] [address] 16 Aug, 2014 [facility] [address] [id number] [address] [place] [address], [place] [address] 16 Aug, 2014 [facility] [address] [id number] [address] [place] [address], [place] [address] 16 Aug, 2014 [facility] [address] [id number] [address] [place] [address], [place] [address] 16 Aug, 2014 [facility] [address] [id number] [address] [place] [address], [place] [address] 13 Aug, 2014 [facility] [address] [id number] [address] [place] [address], [place] [address] 13 Aug, 2014 [facility] [address] [id number] [address] [place] [address], [place] [address] 24 Jul, 2014 [facility] [address] [id number] [address] [place] [address], [place] [address] 23 Jul, 2014 [facility] [address] [id number] [address] [place] [address], [place] [address] Jul, [facility] [address] [id number] [address] [place] [address], [place] [address] Jul, [facility] [address] [id number] [address] [place] [address], [place] [address] Jul, [facility] [address] [id number] [address] [place] [address], [place] [address] Jul, [facility] [address] [id number] [address] [place] [address], [place] [address] Jul, [facility] [address] [id number] [address] [place] [address], [place] [address] Jun, [facility] [address] [id number] [address] [place] [address], [place] [address] Jun, [facility] [address] [id number] [address] [place] [address], [place] [address] Jun, [facility] [address] [id number] [address] [place] [address], [place] [address] Jun, [facility] [address] [id number] [address] [place] [address], [place] [address] Jun, [facility] [address] [id number] [address] [place] [address], [place] [address] Jun, [facility] [address] [id number] [address] [place] [address], [place] [address] Jun, [facility] [address] [id number] [address] [place] [address], [place] [address] Jun, [facility] [address] [id number] [address] [place] [address], [place] [address] Jun, [facility] [address] [id number] [address] [place] [address], [place] [address] May, [facility] [address] [id number] [address] [place] [address], [place] [address] May, [facility] [address] [id number] [address] [place] [address], [place] [address] 30 May, 2014 [facility] [address] [id number] [address] [place] [address], [place] [address] 30 May, 2014 [facility] [address] [id number] [address] [place] [address], [place] [address] 17 May, 2014 [facility] [address] [id number] [address] [place] [address], [place] [address] 15 May, 2014 [facility] [address] [id number] [address] [place] [address], [place] [address] 15 May, 2014 [facility] [address] [id number] [address] [place] [address], [place] [address] 12 May, 2014 [facility] [address] [id number] [address] [place] [address], [place] [address] May, [facility] [address] [id number] [address] [place] [address], [place] [address] May, [facility] [address] [id number] [address] [place] [address], [place] [address] May, [facility] [address] [id number] [address] [place] [address], [place] [address] Apr, [facility] [address] [id number] [address] [place] [address], [place] [address] Apr, [facility] [address] [id number] [address] [place] [address], [place] [address] Apr, [facility] [address] [id number] [address] [place] [address], [place] [address] Apr, [facility] [address] [id number] [address] [place] [address], [place] [address] 29 Mar, 2014 [facility] [address] [id number] [address] [place] [address], [place] [address] 29 Mar, 2014 [facility] [address] [id number] [address] [place] [address], [place] [address] Mar, [facility] [address] [id number] [address] [place] [address], [place] [address] 2014 [facility] [address] [id number] [address] [place] [address], [place] [address] Mar, [facility] [address] [id number] [address] [place] [address], [place] [address] Mar, [facility] [address] [id number] [address] [place] [address], [place] [address] 29 Feb, 2014 [facility] [address] [id number] [address] [place] [address], [place] [address] 29 Feb, 2014 [facility] [address] [id number] [address] [place] [address], [place] [address] 17 Feb, 2014 [facility] [address] [id number] [address] [place] [address], [place] [address] 16 Feb, 2014 [facility] [address] [id number] [address] [place] [address], [place] [address] 16 Feb, 2014 [facility] [address] [id number] [address] [place] [address], [place] [address] Feb, [facility] [address] [id number] [address] [place] [address], [place] [address] 03 Feb, 2014 [facility] [address] [id number] [address] [place] [address], [place] [address] Jan, [facility] [address] [id number] [address] [place] [address], [place] [address] Jan, [facility] [address] [id number] [address] [place] [address], [place] [address] Jan, [facility] [address] [id number] [address] [place] [address], [place] [address] Jan, [facility] [address] [id number] [address] [place] [address], [place] [address] Dec, [facility] [address] [id number] [place] [address] Dec, [facility] [address] [facility] [id number] [address] [place] [address] Dec, [facility] [address] [facility] [id number] [address] [place] [address] Dec, IMMUNIZATIONS No Known Immunizations SOCIAL HISTORY [...]
--- OUTSIDE RECORDS SUMMARY | 2019-10-29 01:16 | XMS REPORT ---
Author Author RICOVeronica Ferrell ANGE Organization [facility] Address [address] [place] [address] Care Team Providers Care Identification Clerk Name Role Phone ANGE REYNOSO Unavailable PROBLEMS Type Condition ICD9-CM Code [id number] Code Onset Dates Condition S tatus SNOMED Code Problem Bilateral low back pain without sciatica M54.5 Active 719668285 Problem Anxiety F41.9 Active 57987616 Problem Chronic pain syndrome G89.4 Active 367176745 Problem Thrush B37.0 Active 39407358 Problem Type 2 diabetes mellitus with complication E11.8 Active 93402834 Problem COPD with acute exacerbation J44.1 A ctive 284164459 Problem History of long-term use of multiple prescription drugs Z92.29 Active 819404906 Problem Essential hypertension I10 Active 11340431 Problem Mixed hyperlipidemia E78.2 Active 371029380 Problem Long-term use of high-risk medication Z79.899 Active 256110582 Problem Chronic obstructive pulmonary disease, unspecified COPD ty pe J44.9 Active 42671080 ALLERGIES No Information ENCOUNTERS Encounter Location Date Diagnosis [facility] [address] [id number] [address] [place] [address] Nov, [facility] [address] [id number] [address] [place] [address] October, Scabies B86 [facility] [address] [id number] [address] [place] [address] October, Acute upper respiratory infe ction, unspecified J06.9 [facility] [address] [id number] [address] [place] [address] October, Dysuria R30.0 and Coughing R 05 [facility] [id number] [place] [address] Aug, [facility] [address] [id number] [address] [place] [address] Jun, [facility] [address] [id number] [address] [place] [address] Jun, [facility] [address] [id number] [address] [place] [address] Jun, [facility] [address] [id number] [address] [place] [address] May, [facility] [address] [id number] [address] [place] [address] May, [facility] [address] [facility] [id number] [address] [place] [address] May, [facility] [address] [facility] [id number] [address] [place] [address] Apr, Type 2 diabetes mellitus wit h complication E11.8 ; Chronic pain syndrome G89.4 ; Bilateral low back pain without sciatica M54.5 ; Essential hypertension I10 ; Anxiety F41.9 ; COPD with acute exacerbation J44.1 ; Pain of left hand M79.642 and Pain in right hand M79.641 [facility] [address] [id number] [address] [place] [address] Apr, [facility] [address] [id number] [address] [place] [address] Mar, [facility] [address] [id number] [address] [place] [address] Mar, [facility] [address] [id number] [address] [place] [address] Mar, [facility] [address] [facility] [id number] [address] [place] [address] Feb, [facility] [address] [facility] [id number] [address] [place] [address] Feb, [facility] [address] [id number] [address] [place] [address] Jan, Type 2 diabetes mellitus wit h complication E11.8 ; Chronic pain syndrome G89.4 ; Bilateral low back pain without sciatica M54.5 ; Essential hypertension I10 ; Anxiety F41.9 ; Chronic obstructive pulmonary disease, unspecified COPD type J44.9 and Thrush B37.0 [facility] [address] [id number] [address] [place] [address] Jan, [facility] [address] [id number] [address] [place] [address] Dec, [facility] [address] [id number] [address] [place] [address] Dec, [facility] [address] [id number] [address] [place] [id number] Nov, [facility] [address] [id number] [address] [place] [address] Nov, [facility] [address] [id number] [address] [place] [address] Nov, [facility] [address] [facility] [id number] [address] [place] [address] Nov, Chest pain, unspecified type R07.9 and COPD exacerbation J44.1 [facility] [address] [id number] [address] [place] [address] October, [facility] [address] [facility] [id number] [address] [place] [address] Sep, [facility] [address] [id number] [address] [place] [address] Sep, Type 2 diabetes mellitus wit h complication E11.8 ; Chronic pain syndrome G89.4 ; Bilateral low back pain without sciatica M54.5 ; Essential hypertension I10 ; Anxiety F41.9 and COPD exacerbation J44.1 [facility] [address] [facility] [id number] [address] [place] [address] Aug, [facility] [address] [facility] [id number] [address] [place] [address] Aug, [facility] [address] [facility] [id number] [address] [place] [address] Aug, Chronic pain syndrome G89.4 [facility] [address] [facility] [id number] [address] [place] [address] Aug, [facility] [id number] [place] [address] Aug, [facility] [id number] [place] [address] Jul, Chronic pain syndrome G89.4 and Anxiety F41.9 [facility] [address] [id number] [address] [place] [address] Jul, [facility] [address] [address] Jun, Bilateral low back pain with out sciatica M54.5 ; Chronic pain syndrome G89.4 ; Anxiety F41.9 ; History of long-term use of multiple prescription drugs Z92.29 ; Type 2 diabetes mellitus with complication E11.8 ; Long-term use of high-risk medication Z79.899 ; Mixed hyperlipidemia E78.2 and Essential hypertension I10 [facility] [address] [id number] [address] [place] [address] Jun, [facility] [address] [id number] [address] [place] [address] Jun, [facility] [address] [facility] [id number] [address] [place] [address] May, [facility] [id number] [address] [place] [address] Apr, [facility] [id number] [address] [place] [address] Mar, [facility] [address] [id number] [address] [place] [address] Mar, Bilateral low back pain with out sciatica M54.5 ; History of long- term use of multiple prescription drugs Z92.29 ; Anxiety F41.9 ; Chronic pain syndrome G89.4 ; Type 2 diabetes mellitus with complication E11.8 ; Long-term use of high-risk medication Z79.899 and Mixed hyperlipidemia E78.2 [facility] [address] [id number] [address] [place] [address] Mar, [facility] [address] [id number] [address] [place] [address] Mar, Chronic pain syndrome G89.4 [facility] [address] [id number] [address] [place] [address] Mar, [facility] [address] [id number] [address] [place] [address] Feb, [facility] [address] [id number] [address] [place] [address] Feb, [facility] [address] [id number] [address] [place] [address] Feb, [facility] [address] [id number] [address] [place] [address] Feb, [facility] [address] [id number] [address] [place] [address] Jan, [facility] [address] [facility] [id number] [address] [place] [address] Jan, [facility] [address] [id number] [address] [place] [address] Dec, [facility] [address] [id number] [address] [place] [address] Dec, Lumbago 724.2 ; Diabetes thony litus without mention of complication, type II or unspecified type, not stated as uncontrolled 250.00 ; Essential hypertension, benign 401.1 ; Anxiety state, unspecified 300.00 ; Chronic pain 338.29 ; COPD with acute exacerbation 491.21 ; Tobacco abuse 305.1 ; Depression 311 and Hyperlipidemia 272.4 [facility] [address] [id number] [address] [place] [address] Dec, [facility] [address] [facility] [id number] [address] [place] [address] Nov, Lumbago 724.2 ; Diabetes thony litus without mention of complication, type II or unspecified type, not stated as uncontrolled 250.00 ; Essential hypertension, benign 401.1 ; Anxiety state, unspecified 300.00 ; Chronic pain 338.29 ; COPD with acute exacerbation 491.21 ; Tobacco abuse 305.1 and Depression 311 [facility] [address] [id number] [address] [place] [address] Nov, [facility] [address] [id number] [address] [place] [address] Nov, [facility] [address] [id number] [address] [place] [address] Nov, [facility] [address] [id number] [address] [place] [address] October, [facility] [address] [id number] [address] [place] [address] October, [facility] [address] [id number] [address] [place] [address] October, [facility] [address] [id number] [address] [place] [address] October, [facility] [address] [id number] [address] [place] [address] October, [facility] [address] [id number] [address] [place] [address] Sep, [facility] [address] [facility] [id number] [address] [place] [address] Sep, [facility] [address] [id number] [address] [place] [address], [place] [address] 13 Sep, 2014 [facility] [address] [id number] [address] [place] [address], [place] [address] 23 Aug, 2014 [facility] [address] [id number] [address] [place] [address], [place] [address] 23 Aug, 2014 [facility] [address] [id number] [address] [place] [address], [place] [address] 20 Aug, 2014 [facility] [address] [id number] [address] [place] [address], [place] [address] 20 Aug, 2014 [facility] [address] [id number] [address] [place] [address], [place] [address] 19 Aug, 2014 [facility] [address] [id number] [address] [place] [address], [place] [address] 19 Aug, 2014 [facility] [address] [id number] [address] [place] [address], [place] [address] 16 Aug, 2014 [facility] [address] [id number] [address] [place] [address], [place] [address] 16 Aug, 2014 [facility] [address] [id number] [address] [place] [address], [place] [address] 16 Aug, 2014 [facility] [address] [id number] [address] [place] [address], [place] [address] 16 Aug, 2014 [facility] [address] [id number] [address] [place] [address], [place] [address] 13 Aug, 2014 [facility] [address] [id number] [address] [place] [address], [place] [address] 13 Aug, 2014 [facility] [address] [id number] [address] [place] [address], [place] [address] 24 Jul, 2014 [facility] [address] [id number] [address] [place] [address], [place] [address] 23 Jul, 2014 [facility] [address] [id number] [address] [place] [address], [place] [address] Jul, [facility] [address] [id number] [address] [place] [address], [place] [address] Jul, [facility] [address] [id number] [address] [place] [address], [place] [address] Jul, [facility] [address] [id number] [address] [place] [address], [place] [address] Jul, [facility] [address] [id number] [address] [place] [address], [place] [address] Jul, [facility] [address] [id number] [address] [place] [address], [place] [address] Jun, [facility] [address] [id number] [address] [place] [address], [place] [address] Jun, [facility] [address] [id number] [address] [place] [address], [place] [address] Jun, [facility] [address] [id number] [address] [place] [address], [place] [address] Jun, [facility] [address] [id number] [address] [place] [address], [place] [address] Jun, [facility] [address] [id number] [address] [place] [address], [place] [address] Jun, [facility] [address] [id number] [address] [place] [address], [place] [address] Jun, [facility] [address] [id number] [address] [place] [address], [place] [address] Jun, [facility] [address] [id number] [address] [place] [address], [place] [address] Jun, [facility] [address] [id number] [address] [place] [address], [place] [address] May, [facility] [address] [id number] [address] [place] [address], [place] [address] May, [facility] [address] [id number] [address] [place] [address], [place] [address] 30 May, 2014 [facility] [address] [id number] [address] [place] [address], [place] [address] 30 May, 2014 [facility] [address] [id number] [address] [place] [address], [place] [address] 17 May, 2014 [facility] [address] [id number] [address] [place] [address], [place] [address] 15 May, 2014 [facility] [address] [id number] [address] [place] [address], [place] [address] 15 May, 2014 [facility] [address] [id number] [address] [place] [address], [place] [address] 12 May, 2014 [facility] [address] [id number] [address] [place] [address], [place] [address] May, [facility] [address] [id number] [address] [place] [address], [place] [address] May, [facility] [address] [id number] [address] [place] [address], [place] [address] May, [facility] [address] [id number] [address] [place] [address], [place] [address] Apr, [facility] [address] [id number] [address] [place] [address], [place] [address] Apr, [facility] [address] [id number] [address] [place] [address], [place] [address] Apr, [facility] [address] [id number] [address] [place] [address], [place] [address] Apr, [facility] [address] [id number] [address] [place] [address], [place] [address] 29 Mar, 2014 [facility] [address] [id number] [address] [place] [address], [place] [address] 29 Mar, 2014 [facility] [address] [id number] [address] [place] [address], [place] [address] Mar, [facility] [address] [id number] [address] [place] [address], [place] [address] 2014 [facility] [address] [id number] [address] [place] [address], [place] [address] Mar, [facility] [address] [id number] [address] [place] [address], [place] [address] Mar, [facility] [address] [id number] [address] [place] [address], [place] [address] 29 Feb, 2014 [facility] [address] [id number] [address] [place] [address], [place] [address] 29 Feb, 2014 [facility] [address] [id number] [address] [place] [address], [place] [address] 17 Feb, 2014 [facility] [address] [id number] [address] [place] [address], [place] [address] 16 Feb, 2014 [facility] [address] [id number] [address] [place] [address], [place] [address] 16 Feb, 2014 [facility] [address] [id number] [address] [place] [address], [place] [address] Feb, [facility] [address] [id number] [address] [place] [address], [place] [address] 03 Feb, 2014 [facility] [address] [id number] [address] [place] [address], [place] [address] Jan, [facility] [address] [id number] [address] [place] [address], [place] [address] Jan, [facility] [address] [id number] [address] [place] [address], [place] [address] Jan, [facility] [address] [id number] [address] [place] [address], [place] [address] Jan, [facility] [address] [id number] [address] [place] [address], [place] [address] Dec, [facility] [address] [id number] [address] [address] Dec, [facility] [address] [facility] [id number] [address] [place] [address] Dec, [facility] [address] [facility] [id number] [address] [place] [address] Dec, IMMUNIZATIONS No Known Immunizations SOCIAL HISTORY [...]
--- OUTSIDE RECORDS SUMMARY | 2019-10-29 01:16 | XMS REPORT ---
Author Author RICOVeronica Ferrell ANGE Organization [facility] Address [address] [place] [address] Care Team Providers Care Flask Pusher Name Role Phone ANGE REYNOSO Unavailable PROBLEMS Type Condition ICD9-CM Code LLT90-II Code Onset Dates Condition S tatus SNOMED Code Problem Bilateral low back pain without sciatica M54.5 Active 677823736 Problem Anxiety F41.9 Active 20582527 Problem Chronic pain syndrome G89.4 Active 355505902 Problem Thrush B37.0 Active 03554580 Problem Type 2 diabetes mellitus with complication E11.8 Active 90914111 Problem COPD with acute exacerbation J44.1 A ctive 446113763 Problem History of long-term use of multiple prescription drugs Z92.29 Active 170804820 Problem Essential hypertension I10 Active 04575874 Problem Mixed hyperlipidemia E78.2 Active 768570034 Problem Long-term use of high-risk medication Z79.899 Active 581851445 Problem Chronic obstructive pulmonary disease, unspecified COPD ty pe J44.9 Active 44324071 ALLERGIES No Information ENCOUNTERS Encounter Location Date Diagnosis [facility] [address] [id number] [address] [place] [phone] Nov, [facility] [address] [id number] [address] [place] [phone] October, Scabies B86 [facility] [address] [id number] [address] [place] [phone] October, Acute upper respiratory infe ction, unspecified J06.9 [facility] [address] [id number] [address] [place] [phone] October, Dysuria R30.0 and Coughing R 05 [facility] [id number] [place] [phone] Aug, [facility] [address] [id number] [address] [place] [phone] Jun, [facility] [address] [id number] [address] [place] [phone] Jun, [facility] [address] [id number] [address] [place] [phone] Jun, [facility] [address] [id number] [address] [place] [phone] May, [facility] [address] [id number] [address] [place] [phone] May, [facility] [address] [facility] [id number] [address] [place] [phone] May, [facility] [address] [facility] [id number] [address] [place] [phone] Apr, Type 2 diabetes mellitus wit h complication E11.8 ; Chronic pain syndrome G89.4 ; Bilateral low back pain without sciatica M54.5 ; Essential hypertension I10 ; Anxiety F41.9 ; COPD with acute exacerbation J44.1 ; Pain of left hand M79.642 and Pain in right hand M79.641 [facility] [address] [id number] [address] [place] [phone] Apr, [facility] [address] [id number] [address] [place] [phone] Mar, [facility] [address] [id number] [address] [place] [phone] Mar, [facility] [address] [id number] [address] [place] [phone] Mar, [facility] [address] [facility] [id number] [address] [place] [phone] Feb, [facility] [address] [facility] [id number] [address] [place] [phone] Feb, [facility] [address] [id number] [address] [place] [phone] Jan, Type 2 diabetes mellitus wit h complication E11.8 ; Chronic pain syndrome G89.4 ; Bilateral low back pain without sciatica M54.5 ; Essential hypertension I10 ; Anxiety F41.9 ; Chronic obstructive pulmonary disease, unspecified COPD type J44.9 and Thrush B37.0 [facility] [address] [id number] [address] [place] [phone] Jan, [facility] [address] [id number] [address] [place] [phone] Dec, [facility] [address] [id number] [address] [place] [phone] Dec, [facility] [address] [id number] [address] [place] [phone] Nov, [facility] [address] [id number] [address] [place] [phone] Nov, [facility] [address] [id number] [address] [place] [phone] Nov, [facility] [address] [facility] [id number] [address] [place] [phone] Nov, Chest pain, unspecified type R07.9 and COPD exacerbation J44.1 [facility] [address] [id number] [address] [place] [phone] October, [facility] [address] [facility] [id number] [address] [place] [phone] Sep, [facility] [address] [id number] [address] [place] [phone] Sep, Type 2 diabetes mellitus wit h complication E11.8 ; Chronic pain syndrome G89.4 ; Bilateral low back pain without sciatica M54.5 ; Essential hypertension I10 ; Anxiety F41.9 and COPD exacerbation J44.1 [facility] [address] [facility] [id number] [address] [place] [phone] Aug, [facility] [address] [facility] [id number] [address] [place] [phone] Aug, [facility] [address] [facility] [id number] [address] [place] [phone] Aug, Chronic pain syndrome G89.4 [facility] [address] [facility] [id number] [address] [place] [phone] Aug, [facility] [id number] [place] [phone] Aug, [facility] [id number] [place] [phone] Jul, Chronic pain syndrome G89.4 and Anxiety F41.9 [facility] [address] [id number] [address] [place] [phone] Jul, [facility] [address] [address] Jun, Bilateral low back pain with out sciatica M54.5 ; Chronic pain syndrome G89.4 ; Anxiety F41.9 ; History of long-term use of multiple prescription drugs Z92.29 ; Type 2 diabetes mellitus with complication E11.8 ; Long-term use of high-risk medication Z79.899 ; Mixed hyperlipidemia E78.2 and Essential hypertension I10 [facility] [address] [id number] [address] [place] [phone] Jun, [facility] [address] [id number] [address] [place] [phone] Jun, [facility] [address] [facility] [id number] [address] [place] [phone] May, [facility] [address] [id number] [address] [place] [phone] Apr, [facility] [address] [id number] [address] [place] [phone] Mar, [facility] [address] [id number] [address] [place] [phone] Mar, Bilateral low back pain with out sciatica M54.5 ; History of long- term use of multiple prescription drugs Z92.29 ; Anxiety F41.9 ; Chronic pain syndrome G89.4 ; Type 2 diabetes mellitus with complication E11.8 ; Long-term use of high-risk medication Z79.899 and Mixed hyperlipidemia E78.2 [facility] [address] [id number] [address] [place] [phone] Mar, [facility] [address] [id number] [address] [place] [phone] Mar, Chronic pain syndrome G89.4 [facility] [address] [id number] [address] [place] [phone] Mar, [facility] [address] [id number] [address] [place] [phone] Feb, [facility] [address] [id number] [address] [place] [phone] Feb, [facility] [address] [id number] [address] [place] [phone] Feb, [facility] [address] [id number] [address] [place] [phone] Feb, [facility] [address] [id number] [address] [place] [phone] Jan, [facility] [address] [facility] [id number] [address] [place] [phone] Jan, [facility] [address] [id number] [address] [place] [phone] Dec, [facility] [address] [id number] [address] [place] [id number] Dec, Lumbago 724.2 ; Diabetes thony litus without mention of complication, type II or unspecified type, not stated as uncontrolled 250.00 ; Essential hypertension, benign 401.1 ; Anxiety state, unspecified 300.00 ; Chronic pain 338.29 ; COPD with acute exacerbation 491.21 ; Tobacco abuse 305.1 ; Depression 311 and Hyperlipidemia 272.4 [facility] [address] [id number] [address] [place] [phone] Dec, [facility] [address] [facility] [id number] [address] [place] [phone] Nov, Lumbago 724.2 ; Diabetes thony litus without mention of complication, type II or unspecified type, not stated as uncontrolled 250.00 ; Essential hypertension, benign 401.1 ; Anxiety state, unspecified 300.00 ; Chronic pain 338.29 ; COPD with acute exacerbation 491.21 ; Tobacco abuse 305.1 and Depression 311 [facility] [address] [id number] [address] [place] [phone] Nov, [facility] [address] [id number] [address] [place] [phone] Nov, [facility] [address] [id number] [address] [place] [phone] Nov, [facility] [address] [id number] [address] [place] [phone] October, [facility] [address] [id number] [address] [place] [phone] October, [facility] [address] [id number] [address] [place] [phone] October, [facility] [address] [id number] [address] [place] [phone] October, [facility] [address] [id number] [address] [place] [phone] October, [facility] [address] [id number] [address] [place] [phone] Sep, [facility] [address] [facility] [id number] [address] [place] [phone] Sep, [facility] [address] [id number] [address] [place] [address], [place] [address] 13 Sep, 2014 [facility] [address] [id number] [address] [place] [address], [place] [address] 23 Aug, 2014 [facility] [address] [id number] [address] [place] [address], [place] [address] 23 Aug, 2014 [facility] [address] [id number] [address] [place] [address], [place] [address] 20 Aug, 2014 [facility] [address] [id number] [address] [place] [address], [place] [id number] 20 Aug, 2014 [facility] [address] [id number] [address] [place] [address], [place] [address] 19 Aug, 2014 [facility] [address] [id number] [address] [place] [address], [place] [id number] 19 Aug, 2014 [facility] [address] [id number] [address] [place] [address], [place] [address] 16 Aug, 2014 [facility] [address] [id number] [address] [place] [address], [place] [address] 16 Aug, 2014 [facility] [address] [id number] [address] [place] [address], [place] [address] 16 Aug, 2014 [facility] [address] [id number] [address] [place] [address], [place] [address] 16 Aug, 2014 [facility] [address] [id number] [address] [place] [address], [place] [address] 13 Aug, 2014 [facility] [address] [id number] [address] [place] [address], [place] [address] 13 Aug, 2014 [facility] [address] [id number] [address] [place] [address], [place] [id number] 24 Jul, 2014 [facility] [address] [id number] [address] [place] [address], [place] [address] 23 Jul, 2014 [facility] [address] [id number] [address] [place] [address], [place] [address] Jul, [facility] [address] [id number] [address] [place] [address], [place] [address] Jul, [facility] [address] [id number] [address] [place] [address], [place] [address] Jul, [facility] [address] [id number] [address] [place] [address], [place] [address] Jul, [facility] [address] [id number] [address] [place] [address], [place] [address] Jul, [facility] [address] [id number] [address] [place] [address], [place] [address] Jun, [facility] [address] [id number] [address] [place] [address], [place] [address] Jun, [facility] [address] [id number] [address] [place] [address], [place] [address] Jun, [facility] [address] [id number] [address] [place] [address], [place] [address] Jun, [facility] [address] [id number] [address] [place] [address], [place] [address] Jun, [facility] [address] [id number] [address] [place] [address], [place] [address] Jun, [facility] [address] [id number] [address] [place] [address], [place] [address] Jun, [facility] [address] [id number] [address] [place] [address], [place] [address] Jun, [facility] [address] [id number] [address] [place] [address], [place] [address] Jun, [facility] [address] [id number] [address] [place] [address], [place] [address] May, [facility] [address] [id number] [address] [place] [address], [place] [address] May, [facility] [address] [id number] [address] [place] [address], [place] [address] 30 May, 2014 [facility] [address] [id number] [address] [place] [address], [place] [address] 30 May, 2014 [facility] [address] [id number] [address] [place] [address], [place] [address] 17 May, 2014 [facility] [address] [id number] [address] [place] [address], [place] [address] 15 May, 2014 [facility] [address] [id number] [address] [place] [address], [place] [address] 15 May, 2014 [facility] [address] [id number] [address] [place] [address], [place] [address] 12 May, 2014 [facility] [address] [id number] [address] [place] [address], [place] [address] May, [facility] [address] [id number] [address] [place] [address], [place] [address] May, [facility] [address] [id number] [address] [place] [address], [place] [address] May, [facility] [address] [id number] [address] [place] [address], [place] [address] Apr, [facility] [address] [id number] [address] [place] [address], [place] [address] Apr, [facility] [address] [id number] [address] [place] [address], [place] [address] Apr, [facility] [address] [id number] [address] [place] [address], [place] [address] Apr, [facility] [address] [id number] [address] [place] [address], [place] [address] 29 Mar, 2014 [facility] [address] [id number] [address] [place] [address], [place] [address] 29 Mar, 2014 [facility] [address] [id number] [address] [place] [address], [place] [address] Mar, [facility] [address] [id number] [address] [place] [address], [place] [address] 2014 [facility] [address] [id number] [address] [place] [address], [place] [address] Mar, [facility] [address] [id number] [address] [place] [address], [place] [address] Mar, [facility] [address] [id number] [address] [place] [address], [place] [address] 29 Feb, 2014 [facility] [address] [id number] [address] [place] [address], [place] [address] 29 Feb, 2014 [facility] [address] [id number] [address] [place] [address], [place] [address] 17 Feb, 2014 [facility] [address] [id number] [address] [place] [address], [place] [address] 16 Feb, 2014 [facility] [address] [id number] [address] [place] [address], [place] [address] 16 Feb, 2014 [facility] [address] [id number] [address] [place] [address], [place] [address] Feb, [facility] [address] [id number] [address] [place] [address], [place] [address] 03 Feb, 2014 [facility] [address] [id number] [address] [place] [address], [place] [address] Jan, [facility] [address] [id number] [address] [place] [address], [place] [address] Jan, [facility] [address] [id number] [address] [place] [address], [place] [address] Jan, [facility] [address] [id number] [address] [place] [address], [place] [address] Jan, [facility] [address] [id number] [address] [place] [address], [place] [address] Dec, [facility] [address] [id number] [address] [address] Dec, [facility] [address] [facility] [id number] [address] [place] [id number] Dec, [facility] [address] [facility] [id number] [address] [place] [id number] Dec, IMMUNIZATIONS No Known Immunizations SOCIAL HISTORY [...]
--- OUTSIDE RECORDS SUMMARY | 2019-10-29 01:17 | XMS REPORT ---
Author Author RICOVeronica Ferrell ANGE Organization [facility] Address [address] [place] [address] Care Team Providers Care Repair Technician Name Role Phone ANGE REYNOSO Unavailable PROBLEMS Type Condition ICD9-CM Code RMS51-ZZ Code Onset Dates Condition S tatus SNOMED Code Problem Bilateral low back pain without sciatica M54.5 Active 908853466 Problem Anxiety F41.9 Active 11592001 Problem Chronic pain syndrome G89.4 Active 482368483 Problem Thrush B37.0 Active 60543186 Problem Type 2 diabetes mellitus with complication E11.8 Active 80521923 Problem COPD with acute exacerbation J44.1 A ctive 722266511 Problem History of long-term use of multiple prescription drugs Z92.29 Active 592578544 Problem Essential hypertension I10 Active 10504533 Problem Mixed hyperlipidemia E78.2 Active 447473278 Problem Long-term use of high-risk medication Z79.899 Active 129177076 Problem Chronic obstructive pulmonary disease, unspecified COPD ty pe J44.9 Active 80272727 ALLERGIES No Information ENCOUNTERS Encounter Location Date Diagnosis [facility] [address] [id number] [address] [place] [address] Nov, [facility] [address] [id number] [address] [place] [address] October, Scabies B86 [facility] [address] [id number] [address] [place] [address] October, Acute upper respiratory infe ction, unspecified J06.9 [facility] [address] [id number] [address] [place] [address] October, Dysuria R30.0 and Coughing R 05 [facility] [id number] [place] [address] Aug, [facility] [address] [id number] [address] [place] [address] Jun, [facility] [address] [id number] [address] [place] [address] Jun, [facility] [address] [id number] [address] [place] [address] Jun, [facility] [address] [id number] [address] [place] [address] May, [facility] [address] [id number] [address] [place] [address] May, [facility] [address] [facility] [id number] [address] [place] [address] May, [facility] [address] [facility] [id number] [address] [place] [address] Apr, Type 2 diabetes mellitus wit h complication E11.8 ; Chronic pain syndrome G89.4 ; Bilateral low back pain without sciatica M54.5 ; Essential hypertension I10 ; Anxiety F41.9 ; COPD with acute exacerbation J44.1 ; Pain of left hand M79.642 and Pain in right hand M79.641 [facility] [address] [id number] [address] [place] [address] Apr, [facility] [address] [id number] [address] [place] [address] Mar, [facility] [address] [id number] [address] [place] [address] Mar, [facility] [address] [id number] [address] [place] [address] Mar, [facility] [address] [facility] [id number] [address] [place] [address] Feb, [facility] [address] [facility] [id number] [address] [place] [address] Feb, [facility] [address] [id number] [address] [place] [address] Jan, Type 2 diabetes mellitus wit h complication E11.8 ; Chronic pain syndrome G89.4 ; Bilateral low back pain without sciatica M54.5 ; Essential hypertension I10 ; Anxiety F41.9 ; Chronic obstructive pulmonary disease, unspecified COPD type J44.9 and Thrush B37.0 [facility] [address] [id number] [address] [place] [address] Jan, [facility] [address] [id number] [address] [place] [address] Dec, [facility] [address] [id number] [address] [place] [address] Dec, [facility] [address] [id number] [address] [place] [address] Nov, [facility] [address] [id number] [address] [place] [address] Nov, [facility] [address] [id number] [address] [place] [address] Nov, [facility] [address] [facility] [id number] [address] [place] [address] Nov, Chest pain, unspecified type R07.9 and COPD exacerbation J44.1 [facility] [address] [id number] [address] [place] [address] October, [facility] [address] [facility] [id number] [address] [place] [address] Sep, [facility] [address] [id number] [address] [place] [address] Sep, Type 2 diabetes mellitus wit h complication E11.8 ; Chronic pain syndrome G89.4 ; Bilateral low back pain without sciatica M54.5 ; Essential hypertension I10 ; Anxiety F41.9 and COPD exacerbation J44.1 [facility] [address] [facility] [id number] [address] [place] [address] Aug, [facility] [address] [facility] [id number] [address] [place] [address] Aug, [facility] [address] [facility] [id number] [address] [place] [address] Aug, Chronic pain syndrome G89.4 [facility] [address] [facility] [id number] [address] [place] [address] Aug, [facility] [id number] [place] [address] Aug, [facility] [id number] [place] [address] Jul, Chronic pain syndrome G89.4 and Anxiety F41.9 [facility] [address] [id number] [address] [place] [address] Jul, [facility] [address] [address] Jun, Bilateral low back pain with out sciatica M54.5 ; Chronic pain syndrome G89.4 ; Anxiety F41.9 ; History of long-term use of multiple prescription drugs Z92.29 ; Type 2 diabetes mellitus with complication E11.8 ; Long-term use of high-risk medication Z79.899 ; Mixed hyperlipidemia E78.2 and Essential hypertension I10 [facility] [address] [id number] [address] [place] [address] Jun, [facility] [address] [id number] [address] [place] [address] Jun, [facility] [address] [facility] [id number] [address] [place] [address] May, [facility] [address] [id number] [address] [place] [address] Apr, [facility] [address] [id number] [address] [place] [address] Mar, [facility] [address] [id number] [address] [place] [address] Mar, Bilateral low back pain with out sciatica M54.5 ; History of long- term use of multiple prescription drugs Z92.29 ; Anxiety F41.9 ; Chronic pain syndrome G89.4 ; Type 2 diabetes mellitus with complication E11.8 ; Long-term use of high-risk medication Z79.899 and Mixed hyperlipidemia E78.2 [facility] [address] [id number] [address] [place] [address] Mar, [facility] [address] [id number] [address] [place] [address] Mar, Chronic pain syndrome G89.4 [facility] [id number] [address] [place] [address] Mar, [facility] [address] [id number] [address] [place] [phone] Feb, [facility] [address] [id number] [address] [place] [address] Feb, [facility] [address] [id number] [address] [place] [address] Feb, [facility] [address] [id number] [address] [place] [address] Feb, [facility] [address] [id number] [address] [place] [address] Jan, [facility] [address] [facility] [id number] [address] [place] [address] Jan, [facility] [address] [id number] [address] [place] [address] Dec, [facility] [address] [id number] [address] [place] [address] Dec, Lumbago 724.2 ; Diabetes thony litus without mention of complication, type II or unspecified type, not stated as uncontrolled 250.00 ; Essential hypertension, benign 401.1 ; Anxiety state, unspecified 300.00 ; Chronic pain 338.29 ; COPD with acute exacerbation 491.21 ; Tobacco abuse 305.1 ; Depression 311 and Hyperlipidemia 272.4 [facility] [address] [id number] [address] [place] [address] Dec, [facility] [address] [facility] [id number] [address] [place] [address] Nov, Lumbago 724.2 ; Diabetes thony litus without mention of complication, type II or unspecified type, not stated as uncontrolled 250.00 ; Essential hypertension, benign 401.1 ; Anxiety state, unspecified 300.00 ; Chronic pain 338.29 ; COPD with acute exacerbation 491.21 ; Tobacco abuse 305.1 and Depression 311 [facility] [address] [id number] [address] [place] [address] Nov, [facility] [address] [id number] [address] [place] [address] Nov, [facility] [address] [id number] [address] [place] [address] Nov, [facility] [address] [id number] [address] [place] [address] October, [facility] [address] [id number] [address] [place] [address] October, [facility] [address] [id number] [address] [place] [address] October, [facility] [address] [id number] [address] [place] [address] October, [facility] [address] [id number] [address] [place] [address] October, [facility] [address] [id number] [address] [place] [id number] Sep, [facility] [address] [facility] [id number] [address] [place] [address] Sep, [facility] [address] [id number] [address] [place] [address], [place] [address] 13 Sep, 2014 [facility] [address] [id number] [address] [place] [address], [place] [address] 23 Aug, 2014 [facility] [address] [id number] [address] [place] [address], [place] [address] 23 Aug, 2014 [facility] [address] [id number] [address] [place] [address], [place] [address] 20 Aug, 2014 [facility] [address] [id number] [address] [place] [address], [place] [address] 20 Aug, 2014 [facility] [address] [id number] [address] [place] [address], [place] [address] 19 Aug, 2014 [facility] [address] [id number] [address] [place] [address], [place] [address] 19 Aug, 2014 [facility] [address] [id number] [address] [place] [address], [place] [address] 16 Aug, 2014 [facility] [address] [id number] [address] [place] [address], [place] [address] 16 Aug, 2014 [facility] [address] [id number] [address] [place] [address], [place] [address] 16 Aug, 2014 [facility] [address] [id number] [address] [place] [address], [place] [address] 16 Aug, 2014 [facility] [address] [id number] [address] [place] [address], [place] [address] 13 Aug, 2014 [facility] [address] [id number] [address] [place] [address], [place] [address] 13 Aug, 2014 [facility] [address] [id number] [address] [place] [address], [place] [address] 24 Jul, 2014 [facility] [address] [id number] [address] [place] [address], [place] [address] 23 Jul, 2014 [facility] [address] [id number] [address] [place] [address], [place] [address] Jul, [facility] [address] [id number] [address] [place] [address], [place] [address] Jul, [facility] [address] [id number] [address] [place] [address], [place] [address] Jul, [facility] [address] [id number] [address] [place] [address], [place] [address] Jul, [facility] [address] [id number] [address] [place] [address], [place] [address] Jul, [facility] [address] [id number] [address] [place] [address], [place] [address] Jun, [facility] [address] [id number] [address] [place] [address], [place] [address] Jun, [facility] [address] [id number] [address] [place] [address], [place] [address] Jun, [facility] [address] [id number] [address] [place] [address], [place] [address] Jun, [facility] [address] [id number] [address] [place] [address], [place] [address] Jun, [facility] [address] [id number] [address] [place] [address], [place] [address] Jun, [facility] [address] [id number] [address] [place] [address], [place] [address] Jun, [facility] [address] [id number] [address] [place] [address], [place] [address] Jun, [facility] [address] [id number] [address] [place] [address], [place] [address] Jun, [facility] [address] [id number] [address] [place] [address], [place] [address] May, [facility] [address] [id number] [address] [place] [address], [place] [address] May, [facility] [address] [id number] [address] [place] [address], [place] [address] 30 May, 2014 [facility] [address] [id number] [address] [place] [address], [place] [address] 30 May, 2014 [facility] [address] [id number] [address] [place] [address], [place] [address] 17 May, 2014 [facility] [address] [id number] [address] [place] [address], [place] [address] 15 May, 2014 [facility] [address] [id number] [address] [place] [address], [place] [address] 15 May, 2014 [facility] [address] [id number] [address] [place] [address], [place] [address] 12 May, 2014 [facility] [address] [id number] [address] [place] [address], [place] [address] May, [facility] [address] [id number] [address] [place] [address], [place] [address] May, [facility] [address] [id number] [address] [place] [address], [place] [address] May, [facility] [address] [id number] [address] [place] [address], [place] [address] Apr, [facility] [address] [id number] [address] [place] [address], [place] [address] Apr, [facility] [address] [id number] [address] [place] [address], [place] [address] Apr, [facility] [address] [id number] [address] [place] [address], [place] [address] Apr, [facility] [address] [id number] [address] [place] [address], [place] [address] 29 Mar, 2014 [facility] [address] [id number] [address] [place] [address], [place] [address] 29 Mar, 2014 [facility] [address] [id number] [address] [place] [address], [place] [address] Mar, [facility] [address] [id number] [address] [place] [address], [place] [address] 2014 [facility] [address] [id number] [address] [place] [address], [place] [address] Mar, [facility] [address] [id number] [address] [place] [address], [place] [address] Mar, [facility] [address] [id number] [address] [place] [address], [place] [address] 29 Feb, 2014 [facility] [address] [id number] [address] [place] [address], [place] [address] 29 Feb, 2014 [facility] [address] [id number] [address] [place] [address], [place] [address] 17 Feb, 2014 [facility] [address] [id number] [address] [place] [address], [place] [address] 16 Feb, 2014 [facility] [address] [id number] [address] [place] [address], [place] [address] 16 Feb, 2014 [facility] [address] [id number] [address] [place] [address], [place] [address] Feb, [facility] [address] [id number] [address] [place] [address], [place] [address] 03 Feb, 2014 [facility] [address] [id number] [address] [place] [address], [place] [address] Jan, [facility] [address] [id number] [address] [place] [address], [place] [address] Jan, [facility] [address] [id number] [address] [place] [address], [place] [address] Jan, [facility] [address] [id number] [address] [place] [address], [place] [address] Jan, [facility] [address] [id number] [address] [place] [address], [place] [address] Dec, [facility] [address] [id number] [address] [address] Dec, [facility] [address] [facility] [id number] [address] [place] [address] Dec, [facility] [address] [facility] [id number] [address] [place] [address] Dec, IMMUNIZATIONS No Known Immunizations SOCIAL HISTORY [...]
--- OUTSIDE RECORDS SUMMARY | 2019-10-29 01:17 | XMS REPORT ---
Author Author RICOVeronica Ferrell ANGE Organization [facility] Address [address] [place] [address] Care Team Providers Care Bobbin Disker Name Role Phone ANGE REYNOSO Unavailable PROBLEMS Type Condition ICD9-CM Code ZZO74-PA Code Onset Dates Condition S tatus SNOMED Code Problem Bilateral low back pain without sciatica M54.5 Active 923726416 Problem Anxiety F41.9 Active 14045314 Problem Chronic pain syndrome G89.4 Active 884823141 Problem Thrush B37.0 Active 79429447 Problem Type 2 diabetes mellitus with complication E11.8 Active 44117673 Problem COPD with acute exacerbation J44.1 A ctive 741555155 Problem History of long-term use of multiple prescription drugs Z92.29 Active 883549572 Problem Essential hypertension I10 Active 03958307 Problem Mixed hyperlipidemia E78.2 Active 796204986 Problem Long-term use of high-risk medication Z79.899 Active 164654370 Problem Chronic obstructive pulmonary disease, unspecified COPD ty pe J44.9 Active 46236580 ALLERGIES No Information ENCOUNTERS Encounter Location Date Diagnosis [facility] [address] [id number] [address] [place] [place] [phone] Nov, [facility] [address] [id number] [address] [place] [place] [id number] October, Scabies B86 [facility] [address] [id number] [address] [place] [place] [id number] October, Acute upper respiratory infe ction, unspecified J06.9 [facility] [address] [id number] [address] [place] [place] [phone] October, Dysuria R30.0 and Coughing R 05 [facility] [id number] [place] [address] Aug, [facility] [address] [id number] [address] [place] [place] [phone] Jun, [facility] [address] [id number] [address] [place] [phone] Jun, [facility] [address] [id number] [address] [place] [place] [phone] Jun, [facility] [address] [id number] [address] [place] [place] [phone] May, [facility] [address] [id number] [address] [place] [phone] May, [facility] [address] [facility] [id number] [address] [place] [phone] May, [facility] [address] [facility] [id number] [address] [place] [place] [id number] Apr, Type 2 diabetes mellitus wit h complication E11.8 ; Chronic pain syndrome G89.4 ; Bilateral low back pain without sciatica M54.5 ; Essential hypertension I10 ; Anxiety F41.9 ; COPD with acute exacerbation J44.1 ; Pain of left hand M79.642 and Pain in right hand M79.641 [facility] [address] [id number] [address] [place] [place] [id number] Apr, [facility] [address] [id number] [address] [place] [place] [phone] Mar, [facility] [address] [id number] [address] [place] [id number] Mar, [facility] [address] [id number] [address] [place] [phone] Mar, [facility] [address] [facility] [id number] [address] [place] [phone] Feb, [facility] [address] [facility] [id number] [address] [place] [place] [phone] Feb, [facility] [address] [id number] [address] [place] [place] [id number] Jan, Type 2 diabetes mellitus wit h complication E11.8 ; Chronic pain syndrome G89.4 ; Bilateral low back pain without sciatica M54.5 ; Essential hypertension I10 ; Anxiety F41.9 ; Chronic obstructive pulmonary disease, unspecified COPD type J44.9 and Thrush B37.0 [facility] [address] [id number] [address] [place] [place] [id number] Jan, [facility] [address] [id number] [address] [place] [phone] Dec, [facility] [address] [id number] [address] [place] [place] [phone] Dec, [facility] [address] [id number] [address] [place] [place] [phone] Nov, [facility] [address] [id number] [address] [place] [place] [phone] Nov, [facility] [address] [id number] [address] [place] [phone] Nov, [facility] [address] [facility] [id number] [address] [place] [id number] Nov, Chest pain, unspecified type R07.9 and COPD exacerbation J44.1 [facility] [address] [id number] [address] [place] [id number] October, [facility] [address] [facility] [id number] [address] [place] [id number] Sep, [facility] [address] [id number] [address] [place] [place] [phone] Sep, Type 2 diabetes mellitus wit h complication E11.8 ; Chronic pain syndrome G89.4 ; Bilateral low back pain without sciatica M54.5 ; Essential hypertension I10 ; Anxiety F41.9 and COPD exacerbation J44.1 [facility] [address] [facility] [id number] [address] [place] [id number] Aug, [facility] [address] [facility] [id number] [address] [place] [id number] Aug, [facility] [address] [facility] [id number] [address] [place] [address] Aug, Chronic pain syndrome G89.4 [facility] [address] [facility] [id number] [address] [place] [phone] Aug, [facility] [id number] [place] [address] Aug, [facility] [id number] [place] [address] Jul, Chronic pain syndrome G89.4 and Anxiety F41.9 [facility] [address] [id number] [address] [place] [place] [id number] Jul, [facility] [address] [id number] Jun, Bilateral low back pain with out sciatica M54.5 ; Chronic pain syndrome G89.4 ; Anxiety F41.9 ; History of long-term use of multiple prescription drugs Z92.29 ; Type 2 diabetes mellitus with complication E11.8 ; Long-term use of high-risk medication Z79.899 ; Mixed hyperlipidemia E78.2 and Essential hypertension I10 [facility] [address] [id number] [address] [place] [phone] Jun, [facility] [address] [id number] [address] [place] [phone] Jun, [facility] [address] [facility] [id number] [address] [place] [phone] May, [facility] [address] [id number] [address] [place] [phone] Apr, [facility] [address] [id number] [address] [place] [phone] Mar, [facility] [address] [id number] [address] [place] [place] [id number] Mar, Bilateral low back pain with out sciatica M54.5 ; History of long- term use of multiple prescription drugs Z92.29 ; Anxiety F41.9 ; Chronic pain syndrome G89.4 ; Type 2 diabetes mellitus with complication E11.8 ; Long-term use of high-risk medication Z79.899 and Mixed hyperlipidemia E78.2 [facility] [address] [id number] [address] [place] [place] [phone] Mar, [facility] [address] [id number] [address] [place] [id number] Mar, Chronic pain syndrome G89.4 [facility] [id number] [address] [place] [id number] Mar, [facility] [address] [id number] [address] [place] [id number] Feb, [facility] [address] [id number] [address] [place] [phone] Feb, [facility] [address] [id number] [address] [place] [phone] Feb, [facility] [address] [id number] [address] [place] [phone] Feb, [facility] [address] [id number] [address] [place] [id number] Jan, [facility] [address] [facility] [id number] [address] [place] [id number] Jan, [facility] [address] [id number] [address] [place] [phone] Dec, [facility] [address] [id number] [address] [place] [place] [id number] Dec, Lumbago 724.2 ; Diabetes thony litus without mention of complication, type II or unspecified type, not stated as uncontrolled 250.00 ; Essential hypertension, benign 401.1 ; Anxiety state, unspecified 300.00 ; Chronic pain 338.29 ; COPD with acute exacerbation 491.21 ; Tobacco abuse 305.1 ; Depression 311 and Hyperlipidemia 272.4 [facility] [address] [id number] [address] [place] [phone] Dec, [facility] [address] [facility] [id number] [address] [place] [place] [address] Nov, Lumbago 724.2 ; Diabetes thony litus without mention of complication, type II or unspecified type, not stated as uncontrolled 250.00 ; Essential hypertension, benign 401.1 ; Anxiety state, unspecified 300.00 ; Chronic pain 338.29 ; COPD with acute exacerbation 491.21 ; Tobacco abuse 305.1 and Depression 311 [facility] [address] [id number] [address] [place] [phone] Nov, [facility] [address] [id number] [address] [place] [phone] Nov, [facility] [address] [id number] [address] [place] [phone] Nov, [facility] [address] [id number] [address] [place] [phone] October, [facility] [address] [id number] [address] [place] [phone] October, [facility] [address] [id number] [address] [place] [phone] October, [facility] [address] [id number] [address] [place] [phone] October, [facility] [address] [id number] [address] [place] [phone] October, [facility] [address] [id number] [address] [place] [phone] Sep, [facility] [address] [facility] [id number] [address] [place] [phone] Sep, [facility] [address] [id number] [address] [place] [address], [place] [address] 13 Sep, 2014 [facility] [address] [id number] [address] [place] [address], [place] [address] 23 Aug, 2014 [facility] [address] [id number] [address] [place] [address], [place] [address] 23 Aug, 2014 [facility] [address] [id number] [address] [place] [address], [place] [address] 20 Aug, 2014 [facility] [address] [id number] [address] [place] [address], [place] [address] 20 Aug, 2014 [facility] [address] [id number] [address] [place] [address], [place] [address] 19 Aug, 2014 [facility] [address] [id number] [address] [place] [address], [place] [address] 19 Aug, 2014 [facility] [address] [id number] [address] [place] [address], [place] [address] 16 Aug, 2014 [facility] [address] [id number] [address] [place] [address], [place] [address] 16 Aug, 2014 [facility] [address] [id number] [address] [place] [address], [place] [address] 16 Aug, 2014 [facility] [address] [id number] [address] [place] [address], [place] [address] 16 Aug, 2014 [facility] [address] [id number] [address] [place] [address], [place] [address] 13 Aug, 2014 [facility] [address] [id number] [address] [place] [address], [place] [address] 13 Aug, 2014 [facility] [address] [id number] [address] [place] [address], [place] [address] 24 Jul, 2014 [facility] [address] [id number] [address] [place] [address], [place] [address] 23 Jul, 2014 [facility] [address] [id number] [address] [place] [address], [place] [address] Jul, [facility] [address] [id number] [address] [place] [address], [place] [address] Jul, [facility] [address] [id number] [address] [place] [address], [place] [address] Jul, [facility] [address] [id number] [address] [place] [address], [place] [address] Jul, [facility] [address] [id number] [address] [place] [address], [place] [address] Jul, [facility] [address] [id number] [address] [place] [address], [place] [address] Jun, [facility] [address] [id number] [address] [place] [address], [place] [address] Jun, [facility] [address] [id number] [address] [place] [address], [place] [address] Jun, [facility] [address] [id number] [address] [place] [address], [place] [address] Jun, [facility] [address] [id number] [address] [place] [address], [place] [address] Jun, [facility] [address] [id number] [address] [place] [address], [place] [address] Jun, [facility] [address] [id number] [address] [place] [address], [place] [address] Jun, [facility] [address] [id number] [address] [place] [address], [place] [address] Jun, [facility] [address] [id number] [address] [place] [address], [place] [address] Jun, [facility] [address] [id number] [address] [place] [address], [place] [address] May, [facility] [address] [id number] [address] [place] [address], [place] [address] May, [facility] [address] [id number] [address] [place] [address], [place] [address] 30 May, 2014 [facility] [address] [id number] [address] [place] [address], [place] [address] 30 May, 2014 [facility] [address] [id number] [address] [place] [address], [place] [address] 17 May, 2014 [facility] [address] [id number] [address] [place] [address], [place] [address] 15 May, 2014 [facility] [address] [id number] [address] [place] [address], [place] [address] 15 May, 2014 [facility] [address] [id number] [address] [place] [address], [place] [address] 12 May, 2014 [facility] [address] [id number] [address] [place] [address], [place] [address] May, [facility] [address] [id number] [address] [place] [address], [place] [address] May, [facility] [address] [id number] [address] [place] [address], [place] [address] May, [facility] [address] [id number] [address] [place] [address], [place] [address] Apr, [facility] [address] [id number] [address] [place] [address], [place] [address] Apr, [facility] [address] [id number] [address] [place] [address], [place] [address] Apr, [facility] [address] [id number] [address] [place] [address], [place] [address] Apr, [facility] [address] [id number] [address] [place] [address], [place] [address] 29 Mar, 2014 [facility] [address] [id number] [address] [place] [address], [place] [address] 29 Mar, 2014 [facility] [address] [id number] [address] [place] [address], [place] [address] Mar, [facility] [address] [id number] [address] [place] [address], [place] [address] 2014 [facility] [address] [id number] [address] [place] [address], [place] [address] Mar, [facility] [address] [id number] [address] [place] [address], [place] [address] Mar, [facility] [address] [id number] [address] [place] [address], [place] [address] 29 Feb, 2014 [facility] [address] [id number] [address] [place] [address], [place] [address] 29 Feb, 2014 [facility] [address] [id number] [address] [place] [address], [place] [address] 17 Feb, 2014 [facility] [address] [id number] [address] [place] [address], [place] [address] 16 Feb, 2014 [facility] [address] [id number] [address] [place] [address], [place] [address] 16 Feb, 2014 [facility] [address] [id number] [address] [place] [address], [place] [address] Feb, [facility] [address] [id number] [address] [place] [address], [place] [address] 03 Feb, 2014 [facility] [address] [id number] [address] [place] [address], [place] [address] Jan, [facility] [address] [id number] [address] [place] [address], [place] [address] Jan, [facility] [address] [id number] [address] [place] [address], [place] [address] Jan, [facility] [address] [id number] [address] [place] [address], [place] [address] Jan, [facility] [address] [id number] [address] [place] [address], [place] [address] Dec, [facility] [address] [id number] [place] [address] Dec, [facility] [address] [facility] [id number] [address] [place] [address] Dec, [facility] [address] [facility] [id number] [address] [place] [id number] Dec, IMMUNIZATIONS No Known Immunizations SOCIAL HISTORY [...]
--- OUTSIDE RECORDS SUMMARY | 2019-10-29 01:17 | XMS REPORT ---
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 [employer] Name Role Phone ANGE REYNOSO Unavailable PROBLEMS Type Condition ICD9-CM Code [id number] Code Onset Dates Condition S tatus SNOMED Code Problem Bilateral low back pain without sciatica M54.5 Active 531190755 Problem Anxiety F41.9 Active 33950141 Problem Chronic pain syndrome G89.4 Active 081866093 Problem Thrush B37.0 Active 10416066 Problem Type 2 diabetes mellitus with complication E11.8 Active 10716276 Problem COPD with acute exacerbation J44.1 A ctive 701965194 Problem History of long-term use of multiple prescription drugs Z92.29 Active 774860783 Problem Essential hypertension I10 Active 56071812 Problem Mixed hyperlipidemia E78.2 Active 123623294 Problem Long-term use of high-risk medication Z79.899 Active 801642436 Problem Chronic obstructive pulmonary disease, unspecified COPD ty pe J44.9 Active [id number] ALLERGIES No Information ENCOUNTERS Encounter Location Date Diagnosis [facility] [address] [id number] [address] [place] [address] Nov, [facility] [address] [id number] [address] [place] [address] October, Scabies B86 [facility] [address] [id number] [address] [place] [address] October, Acute upper respiratory infe ction, unspecified J06.9 [facility] [address] [id number] [address] [place] [address] October, Dysuria R30.0 and Coughing R 05 [facility] [id number] [place] [address] Aug, [facility] [address] [id number] [address] [place] [address] Jun, [facility] [address] [id number] [address] [place] [address] Jun, [facility] [address] [id number] [address] [place] [address] Jun, [facility] [address] [id number] [address] [place] [address] May, [facility] [address] [id number] [address] [place] [address] May, [facility] [address] [facility] [id number] [address] [place] [address] May, [facility] [address] [facility] [id number] [address] [place] [address] Apr, Type 2 diabetes mellitus wit h complication E11.8 ; Chronic pain syndrome G89.4 ; Bilateral low back pain without sciatica M54.5 ; Essential hypertension I10 ; Anxiety F41.9 ; COPD with acute exacerbation J44.1 ; Pain of left hand M79.642 and Pain in right hand M79.641 [facility] [address] [id number] [address] [place] [address] Apr, [facility] [address] [id number] [address] [place] [address] Mar, [facility] [address] [id number] [address] [place] [address] Mar, [facility] [address] [id number] [address] [place] [address] Mar, [facility] [address] [facility] [id number] [address] [place] [address] Feb, [facility] [address] [facility] [id number] [address] [place] [address] Feb, [facility] [address] [id number] [address] [place] [address] Jan, Type 2 diabetes mellitus wit h complication E11.8 ; Chronic pain syndrome G89.4 ; Bilateral low back pain without sciatica M54.5 ; Essential hypertension I10 ; Anxiety F41.9 ; Chronic obstructive pulmonary disease, unspecified COPD type J44.9 and Thrush B37.0 [facility] [address] [id number] [address] [place] [address] Jan, [facility] [address] [id number] [address] [place] [address] Dec, [facility] [address] [id number] [address] [place] [address] Dec, [facility] [address] [id number] [address] [place] [address] Nov, [facility] [address] [id number] [address] [place] [address] Nov, [facility] [address] [id number] [address] [place] [address] Nov, [facility] [address] [facility] [id number] [address] [place] [address] Nov, Chest pain, unspecified type R07.9 and COPD exacerbation J44.1 [facility] [address] [id number] [address] [place] [address] October, [facility] [address] [facility] [id number] [address] [place] [address] Sep, [facility] [address] [id number] [address] [place] [address] Sep, Type 2 diabetes mellitus wit h complication E11.8 ; Chronic pain syndrome G89.4 ; Bilateral low back pain without sciatica M54.5 ; Essential hypertension I10 ; Anxiety F41.9 and COPD exacerbation J44.1 [facility] [address] [facility] [id number] [address] [place] [address] Aug, [facility] [address] [facility] [id number] [address] [place] [address] Aug, [facility] [address] [facility] [id number] [address] [place] [address] Aug, Chronic pain syndrome G89.4 [facility] [address] [facility] [id number] [address] [place] [address] Aug, [facility] [id number] [place] [address] Aug, [facility] [id number] [place] [address] Jul, Chronic pain syndrome G89.4 and Anxiety F41.9 [facility] [address] [id number] [address] [place] [address] Jul, [facility] [address] [address] Jun, Bilateral low back pain with out sciatica M54.5 ; Chronic pain syndrome G89.4 ; Anxiety F41.9 ; History of long-term use of multiple prescription drugs Z92.29 ; Type 2 diabetes mellitus with complication E11.8 ; Long-term use of high-risk medication Z79.899 ; Mixed hyperlipidemia E78.2 and Essential hypertension I10 [facility] [address] [id number] [address] [place] [address] Jun, [facility] [address] [id number] [address] [place] [address] Jun, [facility] [address] [facility] [id number] [address] [place] [address] May, [facility] [address] [id number] [address] [place] [address] Apr, [facility] [address] [id number] [address] [place] [address] Mar, [facility] [address] [id number] [address] [place] [address] Mar, Bilateral low back pain with out sciatica M54.5 ; History of long- term use of multiple prescription drugs Z92.29 ; Anxiety F41.9 ; Chronic pain syndrome G89.4 ; Type 2 diabetes mellitus with complication E11.8 ; Long-term use of high-risk medication Z79.899 and Mixed hyperlipidemia E78.2 [facility] [address] [id number] [address] [place] [address] Mar, [facility] [address] [id number] [address] [place] [address] Mar, Chronic pain syndrome G89.4 [facility] [address] [id number] [address] [place] [address] Mar, [facility] [address] [id number] [address] [place] [address] Feb, [facility] [address] [id number] [address] [place] [address] Feb, [facility] [address] [id number] [address] [place] [address] Feb, [facility] [address] [id number] [address] [place] [address] Feb, [facility] [address] [id number] [address] [place] [address] Jan, [facility] [address] [facility] [id number] [address] [place] [address] Jan, [facility] [address] [id number] [address] [place] [address] Dec, [facility] [address] [id number] [address] [place] [address] Dec, Lumbago 724.2 ; Diabetes thony litus without mention of complication, type II or unspecified type, not stated as uncontrolled 250.00 ; Essential hypertension, benign 401.1 ; Anxiety state, unspecified 300.00 ; Chronic pain 338.29 ; COPD with acute exacerbation 491.21 ; Tobacco abuse 305.1 ; Depression 311 and Hyperlipidemia 272.4 [facility] [address] [id number] [address] [place] [address] Dec, [facility] [address] [facility] [id number] [address] [place] [address] Nov, Lumbago 724.2 ; Diabetes thony litus without mention of complication, type II or unspecified type, not stated as uncontrolled 250.00 ; Essential hypertension, benign 401.1 ; Anxiety state, unspecified 300.00 ; Chronic pain 338.29 ; COPD with acute exacerbation 491.21 ; Tobacco abuse 305.1 and Depression 311 [facility] [address] [id number] [address] [place] [address] Nov, [facility] [address] [id number] [address] [place] [address] Nov, [facility] [address] [id number] [address] [place] [address] Nov, [facility] [address] [id number] [address] [place] [address] October, [facility] [address] [id number] [address] [place] [address] October, [facility] [address] [id number] [address] [place] [address] October, [facility] [address] [id number] [address] [place] [address] October, [facility] [address] [id number] [address] [place] [address] October, [facility] [address] [id number] [address] [place] [address] Sep, [facility] [address] [facility] [id number] [address] [place] [address] Sep, [facility] [address] [id number] [address] [place] [address], [place] [address] 13 Sep, 2014 [facility] [address] [id number] [address] [place] [address], [place] [address] 23 Aug, 2014 [facility] [address] [id number] [address] [place] [address], [place] [address] 23 Aug, 2014 [facility] [address] [id number] [address] [place] [address], [place] [address] 20 Aug, 2014 [facility] [address] [id number] [address] [place] [address], [place] [address] 20 Aug, 2014 [facility] [address] [id number] [address] [place] [address], [place] [address] 19 Aug, 2014 [facility] [address] [id number] [address] [place] [address], [place] [address] 19 Aug, 2014 [facility] [address] [id number] [address] [place] [address], [place] [address] 16 Aug, 2014 [facility] [address] [id number] [address] [place] [address], [place] [address] 16 Aug, 2014 [facility] [address] [id number] [address] [place] [address], [place] [address] 16 Aug, 2014 [facility] [address] [id number] [address] [place] [address], [place] [address] 16 Aug, 2014 [facility] [address] [id number] [address] [place] [address], [place] [address] 13 Aug, 2014 [facility] [address] [id number] [address] [place] [address], [place] [address] 13 Aug, 2014 [facility] [address] [id number] [address] [place] [address], [place] [address] 24 Jul, 2014 [facility] [address] [id number] [address] [place] [address], [place] [address] 23 Jul, 2014 [facility] [address] [id number] [address] [place] [address], [place] [address] Jul, [facility] [address] [id number] [address] [place] [address], [place] [address] Jul, [facility] [address] [id number] [address] [place] [address], [place] [address] Jul, [facility] [address] [id number] [address] [place] [address], [place] [address] Jul, [facility] [address] [id number] [address] [place] [address], [place] [address] Jul, [facility] [address] [id number] [address] [place] [address], [place] [address] Jun, [facility] [address] [id number] [address] [place] [address], [place] [address] Jun, [facility] [address] [id number] [address] [place] [address], [place] [address] Jun, [facility] [address] [id number] [address] [place] [address], [place] [address] Jun, [facility] [address] [id number] [address] [place] [address], [place] [address] Jun, [facility] [address] [id number] [address] [place] [address], [place] [address] Jun, [facility] [address] [id number] [address] [place] [address], [place] [address] Jun, [facility] [address] [id number] [address] [place] [address], [place] [address] Jun, [facility] [address] [id number] [address] [place] [address], [place] [address] Jun, [facility] [address] [id number] [address] [place] [address], [place] [address] May, [facility] [address] [id number] [address] [place] [address], [place] [address] May, [facility] [address] [id number] [address] [place] [address], [place] [address] 30 May, 2014 [facility] [address] [id number] [address] [place] [address], [place] [address] 30 May, 2014 [facility] [address] [id number] [address] [place] [address], [place] [address] 17 May, 2014 [facility] [address] [id number] [address] [place] [address], [place] [address] 15 May, 2014 [facility] [address] [id number] [address] [place] [address], [place] [address] 15 May, 2014 [facility] [address] [id number] [address] [place] [address], [place] [address] 12 May, 2014 [facility] [address] [id number] [address] [place] [address], [place] [address] May, [facility] [address] [id number] [address] [place] [address], [place] [address] May, [facility] [address] [id number] [address] [place] [address], [place] [address] May, [facility] [address] [id number] [address] [place] [address], [place] [address] Apr, [facility] [address] [id number] [address] [place] [address], [place] [address] Apr, [facility] [address] [id number] [address] [place] [address], [place] [address] Apr, [facility] [address] [id number] [address] [place] [address], [place] [address] Apr, [facility] [address] [id number] [address] [place] [address], [place] [address] 29 Mar, 2014 [facility] [address] [id number] [address] [place] [address], [place] [address] 29 Mar, 2014 [facility] [address] [id number] [address] [place] [address], [place] [address] Mar, [facility] [address] [id number] [address] [place] [address] [address] 2014 [facility] [address] [id number] [address] [place] [address], [place] [address] Mar, [facility] [address] [id number] [address] [place] [address], [place] [address] Mar, [facility] [address] [id number] [address] [place] [address], [place] [address] 29 Feb, 2014 [facility] [address] [id number] [address] [place] [address], [place] [address] 29 Feb, 2014 [facility] [address] [id number] [address] [place] [address], [place] [address] 17 Feb, 2014 [facility] [address] [id number] [address] [place] [address], [place] [address] 16 Feb, 2014 [facility] [address] [id number] [address] [place] [address], [place] [address] 16 Feb, 2014 [facility] [address] [id number] [address] [place] [address], [place] [address] Feb, [facility] [address] [id number] [address] [place] [address], [place] [address] 03 Feb, 2014 [facility] [address] [id number] [address] [place] [address], [place] [address] Jan, [facility] [address] [id number] [address] [place] [address], [place] [address] Jan, [facility] [address] [id number] [address] [place] [address], [place] [address] Jan, [facility] [address] [id number] [address] [place] [address], [place] [address] Jan, [facility] [address] [id number] [address] [place] [address], [place] [address] Dec, [facility] [address] [id number] [place] [address] Dec, [facility] [address] [facility] [id number] [address] [place] [address] Dec, [facility] [address] [facility] [id number] [address] [place] [address] Dec, IMMUNIZATIONS No Known Immunizations SOCIAL HISTORY [...]
--- OUTSIDE RECORDS SUMMARY | 2019-10-29 01:17 | XMS REPORT ---
Author Author RICOVeronica Ferrell ANGE Organization [facility] Address [address] [place] [address] Care Team Providers Care Fruit Thinner Name Role Phone ANGE REYNOSO Unavailable PROBLEMS Type Condition ICD9-CM Code KEO66-LV Code Onset Dates Condition S tatus SNOMED Code Problem Bilateral low back pain without sciatica M54.5 Active 683685271 Problem Anxiety F41.9 Active 31304804 Problem Chronic pain syndrome G89.4 Active 238135141 Problem Thrush B37.0 Active 00340896 Problem Type 2 diabetes mellitus with complication E11.8 Active 43457434 Problem COPD with acute exacerbation J44.1 A ctive 650831205 Problem History of long-term use of multiple prescription drugs Z92.29 Active 458604426 Problem Essential hypertension I10 Active 47225701 Problem Mixed hyperlipidemia E78.2 Active 843821329 Problem Long-term use of high-risk medication Z79.899 Active 193477677 Problem Chronic obstructive pulmonary disease, unspecified COPD ty pe J44.9 Active 81274126 ALLERGIES No Information ENCOUNTERS Encounter Location Date Diagnosis [facility] [address] [id number] [address] [place] [id number] Nov, [facility] [address] [id number] [address] [place] [phone] October, Scabies B86 [facility] [address] [id number] [address] [place] [phone] October, Acute upper respiratory infe ction, unspecified J06.9 [facility] [address] [id number] [address] [place] [id number] October, Dysuria R30.0 and Coughing R 05 [facility] [id number] [place] [address] Aug, [facility] [address] [id number] [address] [place] [id number] Jun, [facility] [address] [id number] [address] [place] [id number] Jun, [facility] [address] [id number] [address] [place] [phone] Jun, [facility] [address] [id number] [address] [place] [phone] May, [facility] [address] [id number] [address] [place] [phone] May, [facility] [address] [facility] [id number] [address] [place] [phone] May, [facility] [address] [facility] [id number] [address] [place] [id number] Apr, Type 2 diabetes mellitus wit h complication E11.8 ; Chronic pain syndrome G89.4 ; Bilateral low back pain without sciatica M54.5 ; Essential hypertension I10 ; Anxiety F41.9 ; COPD with acute exacerbation J44.1 ; Pain of left hand M79.642 and Pain in right hand M79.641 [facility] [address] [id number] [address] [place] [address] Apr, [facility] [address] [id number] [address] [place] [id number] Mar, [facility] [address] [id number] [address] [place] [id number] Mar, [facility] [address] [id number] [address] [place] [phone] Mar, [facility] [address] [facility] [id number] [address] [place] [phone] Feb, [facility] [address] [facility] [id number] [address] [place] [phone] Feb, [facility] [address] [id number] [address] [place] [phone] Jan, Type 2 diabetes mellitus wit h complication E11.8 ; Chronic pain syndrome G89.4 ; Bilateral low back pain without sciatica M54.5 ; Essential hypertension I10 ; Anxiety F41.9 ; Chronic obstructive pulmonary disease, unspecified COPD type J44.9 and Thrush B37.0 [facility] [address] [id number] [address] [place] [phone] Jan, [facility] [address] [id number] [address] [place] [phone] Dec, [facility] [address] [id number] [address] [place] [phone] Dec, [facility] [address] [id number] [address] [place] [phone] Nov, [facility] [address] [id number] [address] [place] [phone] Nov, [facility] [address] [id number] [address] [place] [phone] Nov, [facility] [address] [facility] [id number] [address] [place] [phone] Nov, Chest pain, unspecified type R07.9 and COPD exacerbation J44.1 [facility] [address] [id number] [address] [place] [phone] October, [facility] [address] [facility] [id number] [address] [place] [phone] Sep, [facility] [address] [id number] [address] [place] [phone] Sep, Type 2 diabetes mellitus wit h complication E11.8 ; Chronic pain syndrome G89.4 ; Bilateral low back pain without sciatica M54.5 ; Essential hypertension I10 ; Anxiety F41.9 and COPD exacerbation J44.1 [facility] [address] [facility] [id number] [address] [place] [phone] Aug, [facility] [address] [facility] [id number] [address] [place] [phone] Aug, [facility] [address] [facility] [id number] [address] [place] [id number] Aug, Chronic pain syndrome G89.4 [facility] [address] [facility] [id number] [address] [place] [phone] Aug, [facility] [id number] [place] [address] Aug, [facility] [id number] [place] [phone] Jul, Chronic pain syndrome G89.4 and Anxiety F41.9 [facility] [address] [id number] [address] [place] [phone] Jul, [facility] [address] [address] Jun, Bilateral low back pain with out sciatica M54.5 ; Chronic pain syndrome G89.4 ; Anxiety F41.9 ; History of long-term use of multiple prescription drugs Z92.29 ; Type 2 diabetes mellitus with complication E11.8 ; Long-term use of high-risk medication Z79.899 ; Mixed hyperlipidemia E78.2 and Essential hypertension I10 [facility] [address] [id number] [address] [place] [id number] Jun, [facility] [address] [id number] [address] [place] [id number] Jun, [facility] [address] [facility] [id number] [address] [place] [phone] May, [facility] [address] [id number] [address] [place] [phone] Apr, [facility] [address] [id number] [address] [place] [phone] Mar, [facility] [address] [id number] [address] [place] [id number] Mar, Bilateral low back pain with out sciatica M54.5 ; History of long- term use of multiple prescription drugs Z92.29 ; Anxiety F41.9 ; Chronic pain syndrome G89.4 ; Type 2 diabetes mellitus with complication E11.8 ; Long-term use of high-risk medication Z79.899 and Mixed hyperlipidemia E78.2 [facility] [address] [id number] [address] [place] [phone] Mar, [facility] [address] [id number] [address] [place] [id number] Mar, Chronic pain syndrome G89.4 [facility] [address] [id number] [address] [place] [phone] Mar, [facility] [address] [id number] [address] [place] [phone] Feb, [facility] [address] [id number] [address] [place] [phone] Feb, [facility] [address] [id number] [address] [place] [phone] Feb, [facility] [address] [id number] [address] [place] [phone] Feb, [facility] [address] [id number] [address] [place] [phone] Jan, [facility] [address] [facility] [id number] [address] [place] [phone] Jan, [facility] [address] [id number] [address] [place] [phone] Dec, [facility] [address] [id number] [address] [place] [phone] Dec, Lumbago 724.2 ; Diabetes thony litus without mention of complication, type II or unspecified type, not stated as uncontrolled 250.00 ; Essential hypertension, benign 401.1 ; Anxiety state, unspecified 300.00 ; Chronic pain 338.29 ; COPD with acute exacerbation 491.21 ; Tobacco abuse 305.1 ; Depression 311 and Hyperlipidemia 272.4 [facility] [address] [id number] [address] [place] [phone] Dec, [facility] [address] [facility] [id number] [address] [place] [phone] Nov, Lumbago 724.2 ; Diabetes thony litus without mention of complication, type II or unspecified type, not stated as uncontrolled 250.00 ; Essential hypertension, benign 401.1 ; Anxiety state, unspecified 300.00 ; Chronic pain 338.29 ; COPD with acute exacerbation 491.21 ; Tobacco abuse 305.1 and Depression 311 [facility] [address] [id number] [address] [place] [phone] Nov, [facility] [address] [id number] [address] [place] [phone] Nov, [facility] [address] [id number] [address] [place] [id number] Nov, [facility] [address] [id number] [address] [place] [phone] October, [facility] [address] [id number] [address] [place] [id number] October, [facility] [address] [id number] [address] [place] [phone] October, [facility] [address] [id number] [address] [place] [phone] October, [facility] [address] [id number] [address] [place] [phone] October, [facility] [address] [id number] [address] [place] [phone] Sep, [facility] [address] [facility] [id number] [address] [place] [phone] Sep, [facility] [address] [id number] [address] [place] [address], [place] [address] 13 Sep, 2014 [facility] [address] [id number] [address] [place] [address], [place] [id number] 23 Aug, 2014 [facility] [address] [id number] [address] [place] [address], [place] [id number] 23 Aug, 2014 [facility] [address] [id number] [address] [place] [address], [place] [id number] 20 Aug, 2014 [facility] [address] [id number] [address] [place] [address], [place] [id number] 20 Aug, 2014 [facility] [address] [id number] [address] [place] [address], [place] [id number] 19 Aug, 2014 [facility] [address] [id number] [address] [place] [address], [place] [address] 19 Aug, 2014 [facility] [address] [id number] [address] [place] [address], [place] [id number] 16 Aug, 2014 [facility] [address] [id number] [address] [place] [address], [place] [id number] 16 Aug, 2014 [facility] [address] [id number] [address] [place] [address], [place] [id number] 16 Aug, 2014 [facility] [address] [id number] [address] [place] [address], [place] [id number] 16 Aug, 2014 [facility] [address] [id number] [address] [place] [address], [place] [id number] 13 Aug, 2014 [facility] [address] [id number] [address] [place] [address], [place] [id number] 13 Aug, 2014 [facility] [address] [id number] [address] [place] [address], [place] [id number] 24 Jul, 2014 [facility] [address] [id number] [address] [place] [address], [place] [id number] 23 Jul, 2014 [facility] [address] [id number] [address] [place] [address], [place] [id number] Jul, [facility] [address] [id number] [address] [place] [address], [place] [id number] Jul, [facility] [address] [id number] [address] [place] [address], [place] [id number] Jul, [facility] [address] [id number] [address] [place] [address], [place] [id number] Jul, [facility] [address] [id number] [address] [place] [address], [place] [id number] Jul, [facility] [address] [id number] [address] [place] [address], [place] [id number] Jun, [facility] [address] [id number] [address] [place] [address], [place] [id number] Jun, [facility] [address] [id number] [address] [place] [address], [place] [id number] Jun, [facility] [address] [id number] [address] [place] [address], [place] [address] Jun, [facility] [address] [id number] [address] [place] [address], [place] [address] Jun, [facility] [address] [id number] [address] [place] [address], [place] [address] Jun, [facility] [address] [id number] [address] [place] [address], [place] [address] Jun, [facility] [address] [id number] [address] [place] [address], [place] [id number] Jun, [facility] [address] [id number] [address] [place] [address], [place] [id number] Jun, [facility] [address] [id number] [address] [place] [address], [place] [address] May, [facility] [address] [id number] [address] [place] [address], [place] [id number] May, [facility] [address] [id number] [address] [place] [address], [place] [address] 30 May, 2014 [facility] [address] [id number] [address] [place] [address], [place] [address] 30 May, 2014 [facility] [address] [id number] [address] [place] [address], [place] [address] 17 May, 2014 [facility] [address] [id number] [address] [place] [address], [place] [address] 15 May, 2014 [facility] [address] [id number] [address] [place] [address], [place] [address] 15 May, 2014 [facility] [address] [id number] [address] [place] [address], [place] [address] 12 May, 2014 [facility] [address] [id number] [address] [place] [address], [place] [address] May, [facility] [address] [id number] [address] [place] [address], [place] [address] May, [facility] [address] [id number] [address] [place] [address], [place] [address] May, [facility] [address] [id number] [address] [place] [address], [place] [address] Apr, [facility] [address] [id number] [address] [place] [address], [place] [address] Apr, [facility] [address] [id number] [address] [place] [address], [place] [address] Apr, [facility] [address] [id number] [address] [place] [address], [place] [id number] Apr, [facility] [address] [id number] [address] [place] [address], [place] [address] 29 Mar, 2014 [facility] [address] [id number] [address] [place] [address], [place] [address] 29 Mar, 2014 [facility] [address] [id number] [address] [place] [address], [place] [address] Mar, [facility] [address] [id number] [address] [place] [address], [place] [address] 2014 [facility] [address] [id number] [address] [place] [address], [place] [address] Mar, [facility] [address] [id number] [address] [place] [address], [place] [address] Mar, [facility] [address] [id number] [address] [place] [address], [place] [address] 29 Feb, 2014 [facility] [address] [id number] [address] [place] [address], [place] [id number] 29 Feb, 2014 [facility] [address] [id number] [address] [place] [address], [place] [address] 17 Feb, 2014 [facility] [address] [id number] [address] [place] [address], [place] [id number] 16 Feb, 2014 [facility] [address] [id number] [address] [place] [address], [place] [address] 16 Feb, 2014 [facility] [address] [id number] [address] [place] [address], [place] [address] Feb, [facility] [address] [id number] [address] [place] [address], [place] [address] 03 Feb, 2014 [facility] [address] [id number] [address] [place] [address], [place] [address] Jan, [facility] [address] [id number] [address] [place] [address], [place] [address] Jan, [facility] [address] [id number] [address] [place] [address], [place] [address] Jan, [facility] [address] [id number] [address] [place] [address], [place] [address] Jan, [facility] [address] [id number] [address] [place] [address], [place] [address] Dec, [facility] [address] [id number] [address] [address] Dec, [facility] [address] [facility] [id number] [address] [place] [id number] Dec, [facility] [address] [facility] [id number] [address] [place] [id number] Dec, IMMUNIZATIONS Vaccine Route Administration Date Status [...]
--- OUTSIDE RECORDS SUMMARY | 2019-10-29 01:17 | XMS REPORT ---
Author Author RICOVeronica Ferrell ANGE Organization 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 Name Role Phone ANGE REYNOSO Unavailable PROBLEMS Type Condition ICD9-CM Code [id number] Code Onset Dates Condition S tatus SNOMED Code Problem Bilateral low back pain without sciatica M54.5 Active 526830661 Problem Anxiety F41.9 Active 85727765 Problem Chronic pain syndrome G89.4 Active 375069280 Problem Thrush B37.0 Active 56193345 Problem Type 2 diabetes mellitus with complication E11.8 Active 00722985 Problem COPD with acute exacerbation J44.1 A ctive 296751100 Problem History of long-term use of multiple prescription drugs Z92.29 Active 942749004 Problem Essential hypertension I10 Active 64682302 Problem Mixed hyperlipidemia E78.2 Active 406450838 Problem Long-term use of high-risk medication Z79.899 Active 645153313 Problem Chronic obstructive pulmonary disease, unspecified COPD ty pe J44.9 Active 08945934 ALLERGIES No Information ENCOUNTERS Encounter Location Date Diagnosis [facility] [address] [id number] [address] [place] [address] Nov, [facility] [address] [id number] [address] [place] [address] October, Scabies B86 [facility] [address] [id number] [address] [place] [address] October, Acute upper respiratory infe ction, unspecified J06.9 [facility] [address] [id number] [address] [place] [address] October, Dysuria R30.0 and Coughing R 05 [facility] [id number] [place] [address] Aug, [facility] [address] [id number] [address] [place] [address] Jun, [facility] [address] [id number] [address] [place] [id number] Jun, [facility] [address] [id number] [address] [place] [address] Jun, [facility] [address] [id number] [address] [place] [address] May, [facility] [address] [id number] [address] [place] [address] May, [facility] [address] [facility] [id number] [address] [place] [address] May, [facility] [address] [facility] [id number] [address] [place] [address] Apr, Type 2 diabetes mellitus wit h complication E11.8 ; Chronic pain syndrome G89.4 ; Bilateral low back pain without sciatica M54.5 ; Essential hypertension I10 ; Anxiety F41.9 ; COPD with acute exacerbation J44.1 ; Pain of left hand M79.642 and Pain in right hand M79.641 [facility] [address] [id number] [address] [place] [address] Apr, [facility] [address] [id number] [address] [place] [address] Mar, [facility] [address] [id number] [address] [place] [address] Mar, [facility] [address] [id number] [address] [place] [address] Mar, [facility] [address] [facility] [id number] [address] [place] [address] Feb, [facility] [address] [facility] [id number] [address] [place] [address] Feb, [facility] [address] [id number] [address] [place] [address] Jan, Type 2 diabetes mellitus wit h complication E11.8 ; Chronic pain syndrome G89.4 ; Bilateral low back pain without sciatica M54.5 ; Essential hypertension I10 ; Anxiety F41.9 ; Chronic obstructive pulmonary disease, unspecified COPD type J44.[address] [facility] [address] [id number] [address] [place] [address] Jan, [facility] [address] [id number] [address] [place] [address] Dec, [facility] [address] [id number] [address] [place] [address] Dec, [facility] [address] [id number] [address] [place] [address] Nov, [facility] [address] [id number] [address] [place] [address] Nov, [facility] [address] [id number] [address] [place] [address] Nov, [facility] [address] [facility] [id number] [address] [place] [address] Nov, Chest pain, unspecified type R07.9 and COPD exacerbation J44.1 [facility] [address] [id number] [address] [place] [address] October, [facility] [address] [facility] [id number] [address] [place] [address] Sep, [facility] [address] [id number] [address] [place] [address] Sep, Type 2 diabetes mellitus wit h complication E11.8 ; Chronic pain syndrome G89.4 ; Bilateral low back pain without sciatica M54.5 ; Essential hypertension I10 ; Anxiety F41.9 and COPD exacerbation J44.1 [facility] [address] [facility] [id number] [address] [place] [address] Aug, [facility] [address] [facility] [id number] [address] [place] [address] Aug, [facility] [address] [facility] [id number] [address] [place] [address] Aug, Chronic pain syndrome G89.4 [facility] [address] [facility] [id number] [address] [place] [address] Aug, [facility] [id number] [place] [address] Aug, [facility] [id number] [place] [address] Jul, Chronic pain syndrome G89.[address] [facility] [address] [id number] [address] [place] [address] Jul, [facility] [address] [address] Jun, Bilateral low back pain with out sciatica M54.5 ; Chronic pain syndrome G89.4 ; Anxiety F41.9 ; History of long-term use of multiple prescription drugs Z92.29 ; Type 2 diabetes mellitus with complication E11.8 ; Long-term use of high-risk medication Z79.899 ; Mixed hyperlipidemia E78.2 [address] Essential hypertension I10 [facility] [address] [id number] [address] [place] [address] Jun, [facility] [address] [id number] [address] [place] [address] Jun, [facility] [address] [facility] [id number] [address] [place] [address] May, [facility] [address] [id number] [address] [place] [address] Apr, [facility] [address] [id number] [address] [place] [address] Mar, [facility] [address] [id number] [address] [place] [address] Mar, Bilateral low back pain with out sciatica M54.5 ; History of long- term use of multiple prescription drugs Z92.29 ; Anxiety F41.9 ; Chronic pain syndrome G89.4 ; Type 2 diabetes mellitus with complication E11.8 ; Long-term use of high-risk medication Z79.899 and Mixed hyperlipidemia E78.2 [facility] [address] [id number] [address] [place] [address] Mar, [facility] [address] [id number] [address] [place] [address] Mar, Chronic pain syndrome G89.4 [facility] [address] [id number] [address] [place] [address] Mar, [facility] [address] [id number] [address] [place] [address] Feb, [facility] [address] [id number] [address] [place] [address] Feb, [facility] [address] [id number] [address] [place] [address] Feb, [facility] [address] [id number] [address] [place] [address] Feb, [facility] [address] [id number] [address] [place] [address] Jan, [facility] [address] [facility] [id number] [address] [place] [address] Jan, [facility] [address] [id number] [address] [place] [address] Dec, [facility] [address] [id number] [address] [place] [address] Dec, Lumbago 724.2 ; Diabetes thony litus without mention of complication, type II or unspecified type, not stated as uncontrolled 250.00 ; Essential hypertension, benign 401.1 ; Anxiety state, unspecified 300.00 ; Chronic pain 338.29 ; COPD with acute exacerbation 491.21 ; Tobacco abuse 305.1 ; Depression [address] [facility] [address] [id number] [address] [place] [address] Dec, [facility] [address] [facility] [id number] [address] [place] [address] Nov, Lumbago 724.2 ; Diabetes thony litus without mention of complication, type II or unspecified type, not stated as uncontrolled 250.00 ; Essential hypertension, benign 401.1 ; Anxiety state, unspecified 300.00 ; Chronic pain 338.29 ; COPD with acute exacerbation 491.21 ; Tobacco abuse 305.[address] [facility] [address] [id number] [address] [place] [address] Nov, [facility] [address] [id number] [address] [place] [address] Nov, [facility] [address] [id number] [address] [place] [address] Nov, [facility] [address] [id number] [address] [place] [address] October, [facility] [address] [id number] [address] [place] [address] October, [facility] [address] [id number] [address] [place] [address] October, [facility] [address] [id number] [address] [place] [address] October, [facility] [address] [id number] [address] [place] [address] October, [facility] [address] [id number] [address] [place] [address] Sep, [facility] [address] [facility] [id number] [address] [place] [address] Sep, [facility] [address] [id number] [address] [place] [address], [place] [address] 13 Sep, 2014 [facility] [address] [id number] [address] [place] [address], [place] [address] 23 Aug, 2014 [facility] [address] [id number] [address] [place] [address], [place] [address] 23 Aug, 2014 [facility] [address] [id number] [address] [place] [address], [place] [address] 20 Aug, 2014 [facility] [address] [id number] [address] [place] [address], [place] [address] 20 Aug, 2014 [facility] [address] [id number] [address] [place] [address], [place] [address] 19 Aug, 2014 [facility] [address] [id number] [address] [place] [address], [place] [address] 19 Aug, 2014 [facility] [address] [id number] [address] [place] [address], [place] [address] 16 Aug, 2014 [facility] [address] [id number] [address] [place] [address], [place] [address] 16 Aug, 2014 [facility] [address] [id number] [address] [place] [address], [place] [address] 16 Aug, 2014 [facility] [address] [id number] [address] [place] [address], [place] [address] 16 Aug, 2014 [facility] [address] [id number] [address] [place] [address], [place] [address] 13 Aug, 2014 [facility] [address] [id number] [address] [place] [address], [place] [address] 13 Aug, 2014 [facility] [address] [id number] [address] [place] [address], [place] [address] 24 Jul, 2014 [facility] [address] [id number] [address] [place] [address], [place] [address] 23 Jul, 2014 [facility] [address] [id number] [address] [place] [address], [place] [address] Jul, [facility] [address] [id number] [address] [place] [address], [place] [address] Jul, [facility] [address] [id number] [address] [place] [address], [place] [address] Jul, [facility] [address] [id number] [address] [place] [address], [place] [address] Jul, [facility] [address] [id number] [address] [place] [address], [place] [address] Jul, [facility] [address] [id number] [address] [place] [address], [place] [address] Jun, [facility] [address] [id number] [address] [place] [address], [place] [address] Jun, [facility] [address] [id number] [address] [place] [address], [place] [address] Jun, [facility] [address] [id number] [address] [place] [address], [place] [address] Jun, [facility] [address] [id number] [address] [place] [address], [place] [address] Jun, [facility] [address] [id number] [address] [place] [address], [place] [address] Jun, [facility] [address] [id number] [address] [place] [address], [place] [address] Jun, [facility] [address] [id number] [address] [place] [address], [place] [address] Jun, [facility] [address] [id number] [address] [place] [address], [place] [address] Jun, [facility] [address] [id number] [address] [place] [address], [place] [address] May, [facility] [address] [id number] [address] [place] [address], [place] [address] May, [facility] [address] [id number] [address] [place] [address], [place] [address] 30 May, 2014 [facility] [address] [id number] [address] [place] [address], [place] [address] 30 May, 2014 [facility] [address] [id number] [address] [place] [address], [place] [address] 17 May, 2014 [facility] [address] [id number] [address] [place] [address], [place] [address] 15 May, 2014 [facility] [address] [id number] [address] [place] [address], [place] [address] 15 May, 2014 [facility] [address] [id number] [address] [place] [address], [place] [address] 12 May, 2014 [facility] [address] [id number] [address] [place] [address], [place] [address] May, [facility] [address] [id number] [address] [place] [address], [place] [address] May, [facility] [address] [id number] [address] [place] [address], [place] [address] May, [facility] [address] [id number] [address] [place] [address], [place] [address] Apr, [facility] [address] [id number] [address] [place] [address], [place] [address] Apr, [facility] [address] [id number] [address] [place] [address], [place] [address] Apr, [facility] [address] [id number] [address] [place] [address], [place] [address] Apr, [facility] [address] [id number] [address] [place] [address], [place] [address] 29 Mar, 2014 [facility] [address] [id number] [address] [place] [address], [place] [address] 29 Mar, 2014 [facility] [address] [id number] [address] [place] [address], [place] [address] Mar, [facility] [address] [id number] [address] [place] [address] [address] 2014 [facility] [address] [id number] [address] [place] [address], [place] [address] Mar, [facility] [address] [id number] [address] [place] [address], [place] [address] Mar, [facility] [address] [id number] [address] [place] [address], [place] [address] 29 Feb, 2014 [facility] [address] [id number] [address] [place] [address], [place] [address] 29 Feb, 2014 [facility] [address] [id number] [address] [place] [address], [place] [address] 17 Feb, 2014 [facility] [address] [id number] [address] [place] [address], [place] [address] 16 Feb, 2014 [facility] [address] [id number] [address] [place] [address], [place] [address] 16 Feb, 2014 [facility] [address] [id number] [address] [place] [address], [place] [address] Feb, [facility] [address] [id number] [address] [place] [address], [place] [address] 03 Feb, 2014 [facility] [address] [id number] [address] [place] [address], [place] [address] Jan, [facility] [address] [id number] [address] [place] [address], [place] [address] Jan, [facility] [address] [id number] [address] [place] [address], [place] [address] Jan, [facility] [address] [id number] [address] [place] [address], [place] [address] Jan, [facility] [address] [id number] [address] [place] [address], [place] [address] Dec, [facility] [address] [id number] [address] [address] Dec, [facility] [address] [facility] [id number] [address] [place] [address] Dec, [facility] [address] [facility] [id number] [address] [place] [address] Dec, IMMUNIZATIONS No Known Immunizations SOCIAL HISTORY [...]
--- OUTSIDE RECORDS SUMMARY | 2019-10-29 01:18 | XMS REPORT ---
Author Author RICOVeronica Ferrell ANGE Organization [facility] Address [address] [place] [address] Care Team Providers Care Supervisor Hot Dip Plating Name Role Phone ANGE REYNOSO Unavailable PROBLEMS Type Condition ICD9-CM Code VHB27-DN Code Onset Dates Condition S tatus SNOMED Code Problem Bilateral low back pain without sciatica M54.5 Active 347763831 Problem Anxiety F41.9 Active 65424368 Problem Chronic pain syndrome G89.4 Active 624227937 Problem Thrush B37.0 Active 95948522 Problem Type 2 diabetes mellitus with complication E11.8 Active 80472690 Problem COPD with acute exacerbation J44.1 A ctive 925805737 Problem History of long-term use of multiple prescription drugs Z92.29 Active 370459937 Problem Essential hypertension I10 Active 07681752 Problem Mixed hyperlipidemia E78.2 Active 830541948 Problem Long-term use of high-risk medication Z79.899 Active 315348398 Problem Chronic obstructive pulmonary disease, unspecified COPD ty pe J44.9 Active [id number] ALLERGIES No Information ENCOUNTERS Encounter Location Date Diagnosis [facility] [address] [id number] [address] [place] [phone] Nov, [facility] [address] [id number] [address] [place] [phone] October, Scabies B86 [facility] [address] [id number] [address] [place] [id number] October, Acute upper respiratory infe ction, unspecified J06.9 [facility] [address] [id number] [address] [place] [id number] October, Dysuria R30.0 and Coughing R 05 [facility] [id number] [place] [phone] Aug, [facility] [address] [id number] [address] [place] [phone] Jun, [facility] [address] [id number] [address] [place] [phone] Jun, [facility] [address] [id number] [address] [place] [phone] Jun, [facility] [address] [id number] [address] [place] [phone] May, [facility] [address] [id number] [address] [place] [id number] May, [facility] [address] [facility] [id number] [address] [place] [phone] May, [facility] [address] [facility] [id number] [address] [place] [phone] Apr, Type 2 diabetes mellitus wit h complication E11.8 ; Chronic pain syndrome G89.4 ; Bilateral low back pain without sciatica M54.5 ; Essential hypertension I10 ; Anxiety F41.9 ; COPD with acute exacerbation J44.1 ; Pain of left hand M79.642 and Pain in right hand M79.641 [facility] [address] [id number] [address] [place] [id number] Apr, [facility] [address] [id number] [address] [place] [phone] Mar, [facility] [address] [id number] [address] [place] [id number] Mar, [facility] [address] [id number] [address] [place] [id number] Mar, [facility] [address] [facility] [id number] [address] [place] [phone] Feb, [facility] [address] [facility] [id number] [address] [place] [phone] Feb, [facility] [address] [id number] [address] [place] [id number] Jan, Type 2 diabetes mellitus wit h complication E11.8 ; Chronic pain syndrome G89.4 ; Bilateral low back pain without sciatica M54.5 ; Essential hypertension I10 ; Anxiety F41.9 ; Chronic obstructive pulmonary disease, unspecified COPD type J44.9 and Thrush B37.0 [facility] [address] [id number] [address] [place] [phone] Jan, [facility] [address] [id number] [address] [place] [id number] Dec, [facility] [address] [id number] [address] [place] [phone] Dec, [facility] [address] [id number] [address] [place] [phone] Nov, [facility] [address] [id number] [address] [place] [id number] Nov, [facility] [address] [id number] [address] [place] [phone] Nov, [facility] [address] [facility] [id number] [address] [place] [phone] Nov, Chest pain, unspecified type R07.9 and COPD exacerbation J44.1 [facility] [address] [id number] [address] [place] [phone] October, [facility] [address] [facility] [id number] [address] [place] [phone] Sep, [facility] [address] [id number] [address] [place] [phone] Sep, Type 2 diabetes mellitus wit h complication E11.8 ; Chronic pain syndrome G89.4 ; Bilateral low back pain without sciatica M54.5 ; Essential hypertension I10 ; Anxiety F41.9 and COPD exacerbation J44.1 [facility] [address] [facility] [id number] [address] [place] [phone] Aug, [facility] [address] [facility] [id number] [address] [place] [phone] Aug, [facility] [address] [facility] [id number] [address] [place] [phone] Aug, Chronic pain syndrome G89.4 [facility] [address] [facility] [id number] [address] [place] [phone] Aug, [facility] [id number] [place] [phone] Aug, [facility] [id number] [place] [phone] Jul, Chronic pain syndrome G89.4 and Anxiety F41.9 [facility] [address] [id number] [address] [place] [id number] Jul, [facility] [address] [id number] Jun, Bilateral low back pain with out sciatica M54.5 ; Chronic pain syndrome G89.4 ; Anxiety F41.9 ; History of long-term use of multiple prescription drugs Z92.29 ; Type 2 diabetes mellitus with complication E11.8 ; Long-term use of high-risk medication Z79.899 ; Mixed hyperlipidemia E78.2 and Essential hypertension I10 [facility] [address] [id number] [address] [place] [phone] Jun, [facility] [address] [id number] [address] [place] [phone] Jun, [facility] [address] [facility] [id number] [address] [place] [phone] May, [facility] [address] [id number] [address] [place] [phone] Apr, [facility] [id number] [address] [place] [phone] Mar, [facility] [id number] [address] [place] [id number] Mar, Bilateral low back pain with out sciatica M54.5 ; History of long- term use of multiple prescription drugs Z92.29 ; Anxiety F41.9 ; Chronic pain syndrome G89.4 ; Type 2 diabetes mellitus with complication E11.8 ; Long-term use of high-risk medication Z79.899 and Mixed hyperlipidemia E78.2 [facility] [address] [id number] [address] [place] [phone] Mar, [facility] [address] [id number] [address] [place] [phone] Mar, Chronic pain syndrome G89.4 [facility] [id number] [address] [place] [phone] Mar, [facility] [address] [id number] [address] [place] [phone] Feb, [facility] [address] [id number] [address] [place] [id number] Feb, [facility] [address] [id number] [address] [place] [id number] Feb, [facility] [address] [id number] [address] [place] [id number] Feb, [facility] [id number] [address] [place] [id number] Jan, [facility] [address] [facility] [id number] [address] [place] [id number] Jan, [facility] [address] [id number] [address] [place] [phone] Dec, [facility] [address] [id number] [address] [place] [id number] Dec, Lumbago 724.2 ; Diabetes thony litus without mention of complication, type II or unspecified type, not stated as uncontrolled 250.00 ; Essential hypertension, benign 401.1 ; Anxiety state, unspecified 300.00 ; Chronic pain 338.29 ; COPD with acute exacerbation 491.21 ; Tobacco abuse 305.1 ; Depression 311 and Hyperlipidemia 272.4 [facility] [address] [id number] [address] [place] [phone] Dec, [facility] [address] [facility] [id number] [address] [place] [id number] Nov, Lumbago 724.2 ; Diabetes thony litus without mention of complication, type II or unspecified type, not stated as uncontrolled 250.00 ; Essential hypertension, benign 401.1 ; Anxiety state, unspecified 300.00 ; Chronic pain 338.29 ; COPD with acute exacerbation 491.21 ; Tobacco abuse 305.1 and Depression 311 [facility] [address] [id number] [address] [place] [phone] Nov, [facility] [address] [id number] [address] [place] [id number] Nov, [facility] [address] [id number] [address] [place] [phone] Nov, [facility] [address] [id number] [address] [place] [id number] October, [facility] [address] [id number] [address] [place] [phone] October, [facility] [address] [id number] [address] [place] [phone] October, [facility] [address] [id number] [address] [place] [id number] October, [facility] [address] [id number] [address] [place] [id number] October, [facility] [address] [id number] [address] [place] [phone] Sep, [facility] [address] [facility] [id number] [address] [place] [phone] Sep, [facility] [address] [id number] [address] [place] [address], [place] [address] 13 Sep, 2014 [facility] [address] [id number] [address] [place] [address], [place] [address] 23 Aug, 2014 [facility] [address] [id number] [address] [place] [address], [place] [address] 23 Aug, 2014 [facility] [address] [id number] [address] [place] [address], [place] [address] 20 Aug, 2014 [facility] [address] [id number] [address] [place] [address], [place] [address] 20 Aug, 2014 [facility] [address] [id number] [address] [place] [address], [place] [address] 19 Aug, 2014 [facility] [address] [id number] [address] [place] [address], [place] [address] 19 Aug, 2014 [facility] [address] [id number] [address] [place] [address], [place] [address] 16 Aug, 2014 [facility] [address] [id number] [address] [place] [address], [place] [address] 16 Aug, 2014 [facility] [address] [id number] [address] [place] [address], [place] [address] 16 Aug, 2014 [facility] [address] [id number] [address] [place] [address], [place] [address] 16 Aug, 2014 [facility] [address] [id number] [address] [place] [address], [place] [address] 13 Aug, 2014 [facility] [address] [id number] [address] [place] [address], [place] [address] 13 Aug, 2014 [facility] [address] [id number] [address] [place] [address], [place] [address] 24 Jul, 2014 [facility] [address] [id number] [address] [place] [address], [place] [address] 23 Jul, 2014 [facility] [address] [id number] [address] [place] [address], [place] [address] Jul, [facility] [address] [id number] [address] [place] [address], [place] [address] Jul, [facility] [address] [id number] [address] [place] [address], [place] [address] Jul, [facility] [address] [id number] [address] [place] [address], [place] [address] Jul, [facility] [address] [id number] [address] [place] [address], [place] [address] Jul, [facility] [address] [id number] [address] [place] [address], [place] [address] Jun, [facility] [address] [id number] [address] [place] [address], [place] [address] Jun, [facility] [address] [id number] [address] [place] [address], [place] [address] Jun, [facility] [address] [id number] [address] [place] [address], [place] [address] Jun, [facility] [address] [id number] [address] [place] [address], [place] [address] Jun, [facility] [address] [id number] [address] [place] [address], [place] [address] Jun, [facility] [address] [id number] [address] [place] [address], [place] [address] Jun, [facility] [address] [id number] [address] [place] [address], [place] [address] Jun, [facility] [address] [id number] [address] [place] [address], [place] [address] Jun, [facility] [address] [id number] [address] [place] [address], [place] [address] May, [facility] [address] [id number] [address] [place] [address], [place] [address] May, [facility] [address] [id number] [address] [place] [address], [place] [address] 30 May, 2014 [facility] [address] [id number] [address] [place] [address], [place] [address] 30 May, 2014 [facility] [address] [id number] [address] [place] [address], [place] [address] 17 May, 2014 [facility] [address] [id number] [address] [place] [address], [place] [address] 15 May, 2014 [facility] [address] [id number] [address] [place] [address], [place] [address] 15 May, 2014 [facility] [address] [id number] [address] [place] [address], [place] [address] 12 May, 2014 [facility] [address] [id number] [address] [place] [address], [place] [address] May, [facility] [address] [id number] [address] [place] [address], [place] [address] May, [facility] [address] [id number] [address] [place] [address], [place] [address] May, [facility] [address] [id number] [address] [place] [address], [place] [address] Apr, [facility] [address] [id number] [address] [place] [address], [place] [address] Apr, [facility] [address] [id number] [address] [place] [address], [place] [address] Apr, [facility] [address] [id number] [address] [place] [address], [place] [address] Apr, [facility] [address] [id number] [address] [place] [address], [place] [address] 29 Mar, 2014 [facility] [address] [id number] [address] [place] [address], [place] [address] 29 Mar, 2014 [facility] [address] [id number] [address] [place] [address], [place] [address] Mar, [facility] [address] [id number] [address] [place] [address], [place] [address] 2014 [facility] [address] [id number] [address] [place] [address], [place] [address] Mar, [facility] [address] [id number] [address] [place] [address], [place] [address] Mar, [facility] [address] [id number] [address] [place] [address], [place] [address] 29 Feb, 2014 [facility] [address] [id number] [address] [place] [address], [place] [address] 29 Feb, 2014 [facility] [address] [id number] [address] [place] [address], [place] [address] 17 Feb, 2014 [facility] [address] [id number] [address] [place] [address], [place] [address] 16 Feb, 2014 [facility] [address] [id number] [address] [place] [address], [place] [address] 16 Feb, 2014 [facility] [address] [id number] [address] [place] [address], [place] [address] Feb, [facility] [address] [id number] [address] [place] [address], [place] [address] 03 Feb, 2014 [facility] [address] [id number] [address] [place] [address], [place] [address] Jan, [facility] [address] [id number] [address] [place] [address], [place] [address] Jan, [facility] [address] [id number] [address] [place] [address], [place] [address] Jan, [facility] [address] [id number] [address] [place] [address], [place] [address] Jan, [facility] [address] [id number] [address] [place] [address], [place] [address] Dec, [facility] [address] [id number] [address] [address] Dec, [facility] [address] [facility] [id number] [address] [place] [id number] Dec, [facility] [address] [facility] [id number] [address] [place] [address] Dec, IMMUNIZATIONS No Known Immunizations SOCIAL HISTORY [...]
--- OUTSIDE RECORDS SUMMARY | 2019-10-29 01:18 | XMS REPORT ---
Author Author RICOVeronica Ferrell ANGE Organization [facility] Address [address] [place] [address] Care Team Providers Care Social Research Assistant Name Role Phone ANGE REYNOSO Unavailable PROBLEMS Type Condition ICD9-CM Code SUY41-DR Code Onset Dates Condition S tatus SNOMED Code Problem Bilateral low back pain without sciatica M54.5 Active 178638229 Problem Anxiety F41.9 Active 13339559 Problem Chronic pain syndrome G89.4 Active 982067162 Problem Thrush B37.0 Active 01485643 Problem Type 2 diabetes mellitus with complication E11.8 Active 48322279 Problem COPD with acute exacerbation J44.1 A ctive 570988792 Problem History of long-term use of multiple prescription drugs Z92.29 Active 039965454 Problem Essential hypertension I10 Active 51056416 Problem Mixed hyperlipidemia E78.2 Active 180349378 Problem Long-term use of high-risk medication Z79.899 Active 617672628 Problem Chronic obstructive pulmonary disease, unspecified COPD ty pe J44.9 Active [id number] ALLERGIES No Information ENCOUNTERS Encounter Location Date Diagnosis [facility] [address] [id number] [address] [place] [phone] Nov, [facility] [address] [id number] [address] [place] [phone] October, Scabies B86 [facility] [address] [id number] [address] [place] [id number] October, Acute upper respiratory infe ction, unspecified J06.9 [facility] [address] [id number] [address] [place] [id number] October, Dysuria R30.0 and Coughing R 05 [facility] [id number] [place] [phone] Aug, [facility] [address] [id number] [address] [place] [id number] Jun, [facility] [address] [id number] [address] [place] [phone] Jun, [facility] [address] [id number] [address] [place] [id number] Jun, [facility] [address] [id number] [address] [place] [id number] May, [facility] [address] [id number] [address] [place] [id number] May, [facility] [address] [facility] [id number] [address] [place] [id number] May, [facility] [address] [facility] [id number] [address] [place] [id number] Apr, Type 2 diabetes mellitus wit h complication E11.8 ; Chronic pain syndrome G89.4 ; Bilateral low back pain without sciatica M54.5 ; Essential hypertension I10 ; Anxiety F41.9 ; COPD with acute exacerbation J44.1 ; Pain of left hand M79.642 and Pain in right hand M79.641 [facility] [address] [id number] [address] [place] [id number] Apr, [facility] [address] [id number] [address] [place] [id number] Mar, [facility] [address] [id number] [address] [place] [id number] Mar, [facility] [address] [id number] [address] [place] [id number] Mar, [facility] [address] [facility] [id number] [address] [place] [id number] Feb, [facility] [address] [facility] [id number] [address] [place] [id number] Feb, [facility] [address] [id number] [address] [place] [id number] Jan, Type 2 diabetes mellitus wit h complication E11.8 ; Chronic pain syndrome G89.4 ; Bilateral low back pain without sciatica M54.5 ; Essential hypertension I10 ; Anxiety F41.9 ; Chronic obstructive pulmonary disease, unspecified COPD type J44.9 and Thrush B37.0 [facility] [address] [id number] [address] [place] [phone] Jan, [facility] [address] [id number] [address] [place] [id number] Dec, [facility] [address] [id number] [address] [place] [id number] Dec, [facility] [address] [id number] [address] [place] [phone] Nov, [facility] [address] [id number] [address] [place] [phone] Nov, [facility] [address] [id number] [address] [place] [phone] Nov, [facility] [address] [facility] [id number] [address] [place] [id number] Nov, Chest pain, unspecified type R07.9 and COPD exacerbation J44.1 [facility] [address] [id number] [address] [place] [phone] October, [facility] [address] [facility] [id number] [address] [place] [id number] Sep, [facility] [address] [id number] [address] [place] [phone] Sep, Type 2 diabetes mellitus wit h complication E11.8 ; Chronic pain syndrome G89.4 ; Bilateral low back pain without sciatica M54.5 ; Essential hypertension I10 ; Anxiety F41.9 and COPD exacerbation J44.1 [facility] [address] [facility] [id number] [address] [place] [id number] Aug, [facility] [address] [facility] [id number] [address] [place] [id number] Aug, [facility] [address] [facility] [id number] [address] [place] [id number] Aug, Chronic pain syndrome G89.4 [facility] [address] [facility] [id number] [address] [place] [phone] Aug, [facility] [id number] [place] [phone] Aug, [facility] [id number] [place] [phone] Jul, Chronic pain syndrome G89.4 and Anxiety F41.9 [facility] [address] [id number] [address] [place] [phone] Jul, [facility] [address] [id number] Jun, Bilateral low back pain with out sciatica M54.5 ; Chronic pain syndrome G89.4 ; Anxiety F41.9 ; History of long-term use of multiple prescription drugs Z92.29 ; Type 2 diabetes mellitus with complication E11.8 ; Long-term use of high-risk medication Z79.899 ; Mixed hyperlipidemia E78.2 and Essential hypertension I10 [facility] [address] [id number] [address] [place] [id number] Jun, [facility] [address] [id number] [address] [place] [phone] Jun, [facility] [address] [facility] [id number] [address] [place] [phone] May, [facility] [address] [id number] [address] [place] [id number] Apr, [facility] [address] [id number] [address] [place] [phone] Mar, [facility] [address] [id number] [address] [place] [phone] Mar, Bilateral low back pain with out sciatica M54.5 ; History of long- term use of multiple prescription drugs Z92.29 ; Anxiety F41.9 ; Chronic pain syndrome G89.4 ; Type 2 diabetes mellitus with complication E11.8 ; Long-term use of high-risk medication Z79.899 and Mixed hyperlipidemia E78.2 [facility] [address] [id number] [address] [place] [phone] Mar, [facility] [address] [id number] [address] [place] [phone] Mar, Chronic pain syndrome G89.4 [facility] [address] [id number] [address] [place] [id number] Mar, [facility] [address] [id number] [address] [place] [id number] Feb, [facility] [address] [id number] [address] [place] [phone] Feb, [facility] [address] [id number] [address] [place] [phone] Feb, [facility] [address] [id number] [address] [place] [phone] Feb, [facility] [address] [id number] [address] [place] [phone] Jan, [facility] [address] [facility] [id number] [address] [place] [phone] Jan, [facility] [address] [id number] [address] [place] [phone] Dec, [facility] [address] [id number] [address] [place] [id number] Dec, Lumbago 724.2 ; Diabetes thony litus without mention of complication, type II or unspecified type, not stated as uncontrolled 250.00 ; Essential hypertension, benign 401.1 ; Anxiety state, unspecified 300.00 ; Chronic pain 338.29 ; COPD with acute exacerbation 491.21 ; Tobacco abuse 305.1 ; Depression 311 and Hyperlipidemia 272.4 [facility] [address] [id number] [address] [place] [phone] Dec, [facility] [address] [facility] [id number] [address] [place] [phone] Nov, Lumbago 724.2 ; Diabetes thony litus without mention of complication, type II or unspecified type, not stated as uncontrolled 250.00 ; Essential hypertension, benign 401.1 ; Anxiety state, unspecified 300.00 ; Chronic pain 338.29 ; COPD with acute exacerbation 491.21 ; Tobacco abuse 305.1 and Depression 311 [facility] [address] [id number] [address] [place] [phone] Nov, [facility] [address] [id number] [address] [place] [phone] Nov, [facility] [address] [id number] [address] [place] [id number] Nov, [facility] [address] [id number] [address] [place] [id number] October, [facility] [address] [id number] [address] [place] [phone] October, [facility] [address] [id number] [address] [place] [phone] October, [facility] [address] [id number] [address] [place] [phone] October, [facility] [address] [id number] [address] [place] [phone] October, [facility] [address] [id number] [address] [place] [phone] Sep, [facility] [address] [facility] [id number] [address] [place] [phone] Sep, [facility] [address] [id number] [address] [place] [address], [place] [address] 13 Sep, 2014 [facility] [address] [id number] [address] [address], [place] [address] 23 Aug, 2014 [facility] [address] [id number] [address] [address], [place] [address] 23 Aug, 2014 [facility] [address] [id number] [address] [address], [place] [address] 20 Aug, 2014 [facility] [address] [id number] [address] [address], [place] [address] 20 Aug, 2014 [facility] [address] [id number] [address] [address], [place] [address] 19 Aug, 2014 [facility] [address] [id number] [address] [address], [place] [address] 19 Aug, 2014 [facility] [address] [id number] [address] [address], [place] [address] 16 Aug, 2014 [facility] [address] [id number] [address] [address], [place] [address] 16 Aug, 2014 [facility] [address] [id number] [address] [address], [place] [address] 16 Aug, 2014 [facility] [address] [id number] [address] [address], [place] [address] 16 Aug, 2014 [facility] [address] [id number] [address] [address], [place] [address] 13 Aug, 2014 [facility] [address] [id number] [address] [address], [place] [address] 13 Aug, 2014 [facility] [address] [id number] [address] [address], [place] [address] 24 Jul, 2014 [facility] [address] [id number] [address] [address], [place] [address] 23 Jul, 2014 [facility] [address] [id number] [address] [address], [place] [address] Jul, [facility] [address] [id number] [address] [address], [place] [address] Jul, [facility] [address] [id number] [address] [address], [place] [address] Jul, [facility] [address] [id number] [address] [address], [place] [address] Jul, [facility] [address] [id number] [address] [place] [address], [place] [address] Jul, [facility] [address] [id number] [address] [address], [place] [address] Jun, [facility] [address] [id number] [address] [address], [place] [address] Jun, [facility] [address] [id number] [address] [address], [place] [address] Jun, [facility] [address] [id number] [address] [address], [place] [address] Jun, [facility] [address] [id number] [address] [address], [place] [address] Jun, [facility] [address] [id number] [address] [address], [place] [address] Jun, [facility] [address] [id number] [address] [address], [place] [address] Jun, [facility] [address] [id number] [address] [address], [place] [address] Jun, [facility] [address] [id number] [address] [address], [place] [address] Jun, [facility] [address] [id number] [address] [address], [place] [address] May, [facility] [address] [id number] [address] [address], [place] [address] May, [facility] [address] [id number] [address] [address], [place] [address] 30 May, 2014 [facility] [address] [id number] [address] [address], [place] [address] 30 May, 2014 [facility] [address] [id number] [address] [address], [place] [address] 17 May, 2014 [facility] [address] [id number] [address] [address], [place] [address] 15 May, 2014 [facility] [address] [id number] [address] [address], [place] [address] 15 May, 2014 [facility] [address] [id number] [address] [address], [place] [address] 12 May, 2014 [facility] [address] [id number] [address] [address], [place] [address] May, [facility] [address] [id number] [address] [address], [place] [address] May, [facility] [address] [id number] [address] [address], [place] [address] May, [facility] [address] [id number] [address] [address], [place] [address] Apr, [facility] [address] [id number] [address] [address], [place] [address] Apr, [facility] [address] [id number] [address] [address], [place] [address] Apr, [facility] [address] [id number] [address] [address], [place] [address] Apr, [facility] [address] [id number] [address] [address], [place] [address] 29 Mar, 2014 [facility] [address] [id number] [address] [place] [address], [place] [address] 29 Mar, 2014 [facility] [address] [id number] [address] [address], [place] [address] Mar, [facility] [address] [id number] [address] [address], [place] [address] 2014 [facility] [address] [id number] [address] [address], [place] [address] Mar, [facility] [address] [id number] [address] [address], [place] [address] Mar, [facility] [address] [id number] [address] [place] [address], [place] [address] 29 Feb, 2014 [facility] [address] [id number] [address] [place] [address], [place] [address] 29 Feb, 2014 [facility] [address] [id number] [address] [place] [address], [place] [address] 17 Feb, 2014 [facility] [address] [id number] [address] [place] [address], [place] [address] 16 Feb, 2014 [facility] [address] [id number] [address] [place] [address], [place] [address] 16 Feb, 2014 [facility] [address] [id number] [address] [place] [address], [place] [address] Feb, [facility] [address] [id number] [address] [address], [place] [address] 03 Feb, 2014 [facility] [address] [id number] [address] [address], [place] [address] Jan, [facility] [address] [id number] [address] [place] [address], [place] [address] Jan, [facility] [address] [id number] [address] [place] [address], [place] [address] Jan, [facility] [address] [id number] [address] [place] [address], [place] [address] Jan, [facility] [address] [id number] [address] [place] [address], [place] [address] Dec, [facility] [address] [id number] [place] [address] Dec, [facility] [address] [facility] [id number] [address] [place] [id number] Dec, [facility] [address] [facility] [id number] [address] [place] [id number] Dec, IMMUNIZATIONS No Known Immunizations SOCIAL HISTORY [...]
--- OUTSIDE RECORDS SUMMARY | 2019-10-29 01:18 | XMS REPORT ---
Author Author Veronica FLEMING Organization [facility] Address [address] [place] [address] Care Team Providers Care Shopper Name Role Phone LUTHER FLEMING Unavailable PROBLEMS Type Condition ICD9-CM Code WPL10-FY Code Onset Dates Condition S tatus SNOMED Code Problem Bilateral low back pain without sciatica M54.5 Active 025092735 Problem Anxiety F41.9 Active 64539160 Problem Chronic pain syndrome G89.4 Active 335475036 Problem Thrush B37.0 Active 56850578 Problem Type 2 diabetes mellitus with complication E11.8 Active 94359234 Problem COPD with acute exacerbation J44.1 A ctive 481199568 Problem History of long-term use of multiple prescription drugs Z92.29 Active 085810560 Problem Essential hypertension I10 Active 43779365 Problem Mixed hyperlipidemia E78.2 Active 951212668 Problem Long-term use of high-risk medication Z79.899 Active 255531144 Problem Chronic obstructive pulmonary disease, unspecified COPD ty pe J44.9 Active 81871008 ALLERGIES No Information ENCOUNTERS Encounter Location Date Diagnosis [facility] [address] [id number] [address] [place] [address] Nov, [facility] [address] [id number] [address] [place] [address] October, Scabies B86 [facility] [address] [id number] [address] [place] [phone] October, Acute upper respiratory infe ction, unspecified J06.9 [facility] [address] [id number] [address] [place] [address] October, Dysuria R30.0 and Coughing R 05 [facility] [address] [id number] [address] [place] [address] Aug, [facility] [address] [id number] [address] [place] [address] Jun, [facility] [address] [id number] [address] [place] [address] Jun, [facility] [address] [facility] [id number] [address] [place] [address] Jun, [facility] [address] [id number] [address] [place] [address] May, [facility] [address] [id number] [address] [place] [address] May, [facility] [address] [id number] [address] [place] [address] May, [facility] [address] [facility] [id number] [address] [place] [address] Apr, Type 2 diabetes mellitus wit h complication E11.8 ; Chronic pain syndrome G89.4 ; Bilateral low back pain without sciatica M54.5 ; Essential hypertension I10 ; Anxiety F41.9 ; COPD with acute exacerbation J44.1 ; Pain of left hand M79.642 and Pain in right hand M79.641 [facility] [address] [id number] [address] [place] [address] Apr, [facility] [address] [id number] [address] [place] [address] Mar, [facility] [address] [id number] [address] [place] [phone] Mar, [facility] [address] [id number] [address] [place] [address] Mar, [facility] [address] [facility] [id number] [address] [place] [phone] 08 Feb, 2016 [facility] [address] [facility] [id number] [address] [place] [address] Feb, [facility] [address] [id number] [address] [place] [phone] Jan, Type 2 diabetes mellitus wit h complication E11.8 ; Chronic pain syndrome G89.4 ; Bilateral low back pain without sciatica M54.5 ; Essential hypertension I10 ; Anxiety F41.9 ; Chronic obstructive pulmonary disease, unspecified COPD type J44.9 and Thrush B37.0 [facility] [address] [id number] [address] [place] [phone] Jan, [facility] [address] [id number] [address] [place] [phone] Dec, [facility] [address] [id number] [address] [place] [address] Dec, [facility] [address] [id number] [address] [place] [phone] Nov, [facility] [address] [id number] [address] [place] [address] Nov, [facility] [address] [id number] [address] [place] [address] Nov, [facility] [address] [id number] [address] [place] [address] Nov, Chest pain, unspecified type R07.9 and COPD exacerbation J44.1 [facility] [address] [id number] [address] [place] [phone] October, [facility] [address] [facility] [id number] [address] [place] [phone] Sep, [facility] [address] [id number] [address] [place] [phone] Sep, Type 2 diabetes mellitus wit h complication E11.8 ; Chronic pain syndrome G89.4 ; Bilateral low back pain without sciatica M54.5 ; Essential hypertension I10 ; Anxiety F41.9 and COPD exacerbation J44.1 [facility] [address] [facility] [id number] [address] [place] [phone] Aug, [facility] [address] [facility] [id number] [address] [place] [address] Aug, [facility] [address] [facility] [id number] [address] [place] [phone] Aug, Chronic pain syndrome G89.4 [facility] [address] [facility] [id number] [address] [place] [phone] Aug, [facility] [address] [id number] [address] [place] [phone] Aug, [facility] [address] [facility] [id number] [address] [place] [address] Jul, Chronic pain syndrome G89.4 and Anxiety F41.9 [facility] [address] [id number] [address] [place] [address] Jul, [facility] [id number] [place] [phone] Jun, Bilateral low back pain with out sciatica M54.5 ; Chronic pain syndrome G89.4 ; Anxiety F41.9 ; History of long-term use of multiple prescription drugs Z92.29 ; Type 2 diabetes mellitus with complication E11.8 ; Long-term use of high-risk medication Z79.899 ; Mixed hyperlipidemia E78.2 and Essential hypertension I10 [facility] [address] [facility] [id number] [address] [place] [phone] Jun, [facility] [address] [id number] [address] [place] [phone] Jun, [facility] [address] [facility] [id number] [address] [place] [phone] May, [facility] [address] [id number] [address] [place] [phone] Apr, [facility] [address] [id number] [address] [place] [phone] Mar, [facility] [id number] [place] [address] Mar, Bilateral low back pain with out sciatica M54.5 ; History of long- term use of multiple prescription drugs Z92.29 ; Anxiety F41.9 ; Chronic pain syndrome G89.4 ; Type 2 diabetes mellitus with complication E11.8 ; Long-term use of high-risk medication Z79.899 and Mixed hyperlipidemia E78.2 [facility] [address] [facility] [id number] [address] [place] [phone] Mar, [facility] [address] [id number] [address] [place] [phone] Mar, Chronic pain syndrome G89.4 [facility] [address] [id number] [address] [place] [phone] Mar, [facility] [address] [id number] [address] [place] [phone] Feb, [facility] [address] [id number] [address] [place] [phone] Feb, [facility] [address] [id number] [address] [place] [phone] Feb, [facility] [address] [id number] [address] [place] [phone] Feb, [facility] [address] [id number] [address] [place] [phone] Jan, [facility] [address] [facility] [id number] [address] [place] [address] Jan, [facility] [address] [id number] [address] [place] [phone] Dec, [facility] [address] [id number] [address] [place] [address] Dec, Lumbago 724.2 ; Diabetes thony litus without mention of complication, type II or unspecified type, not stated as uncontrolled 250.00 ; Essential hypertension, benign 401.1 ; Anxiety state, unspecified 300.00 ; Chronic pain 338.29 ; COPD with acute exacerbation 491.21 ; Tobacco abuse 305.1 ; Depression 311 and Hyperlipidemia 272.4 [facility] [address] [id number] [address] [place] [phone] Dec, [facility] [address] [facility] [id number] [address] [place] [address] Nov, Lumbago 724.2 ; Diabetes thony litus without mention of complication, type II or unspecified type, not stated as uncontrolled 250.00 ; Essential hypertension, benign 401.1 ; Anxiety state, unspecified 300.00 ; Chronic pain 338.29 ; COPD with acute exacerbation 491.21 ; Tobacco abuse 305.1 and Depression 311 [facility] [address] [id number] [address] [place] [phone] Nov, [facility] [address] [facility] [id number] [address] [place] [phone] Nov, [facility] [address] [id number] [address] [place] [phone] Nov, [facility] [address] [id number] [address] [place] [phone] October, [facility] [address] [facility] [id number] [address] [place] [phone] October, [facility] [address] [id number] [address] [place] [phone] October, [facility] [address] [id number] [address] [place] [phone] October, [facility] [address] [id number] [address] [place] [phone] October, [facility] [address] [id number] [address] [place] [phone] Sep, [facility] [address] [facility] [id number] [address] [place] [phone] Sep, [facility] [address] [id number] [facility] [place] [address] 13 Sep, 2014 [facility] [address] [id number] [address] [place] [address], [place] [address] 23 Aug, 2014 [facility] [address] [id number] [address] [place] [address], [place] [address] 23 Aug, 2014 [facility] [address] [id number] [address] [place] [address], [place] [address] 20 Aug, 2014 [facility] [address] [id number] [address] [place] [address], [place] [address] 20 Aug, 2014 [facility] [address] [id number] [address] [place] [address], [place] [address] 19 Aug, 2014 [facility] [address] [id number] [address] [place] [address], [place] [address] 19 Aug, 2014 [facility] [address] [id number] [address] [place] [address], [place] [address] 16 Aug, 2014 [facility] [address] [id number] [address] [place] [address], [place] [address] 16 Aug, 2014 [facility] [address] [id number] [address] [place] [address], [place] [address] 16 Aug, 2014 [facility] [address] [id number] [address] [place] [address], [place] [address] 16 Aug, 2014 [facility] [address] [id number] [address] [place] [address], [place] [address] 13 Aug, 2014 [facility] [address] [id number] [address] [place] [address], [place] [address] 13 Aug, 2014 [facility] [address] [id number] [address] [place] [address], [place] [address] 24 Jul, 2014 [facility] [address] [id number] [address] [place] [address], [place] [address] 23 Jul, 2014 [facility] [address] [id number] [address] [place] [address], [place] [address] Jul, [facility] [address] [id number] [address] [place] [address], [place] [address] Jul, [facility] [address] [id number] [address] [place] [address], [place] [address] Jul, [facility] [address] [id number] [address] [place] [address], [place] [address] Jul, [facility] [address] [id number] [address] [place] [address], [place] [address] Jul, [facility] [address] [id number] [address] [place] [address], [place] [address] Jun, [facility] [address] [id number] [address] [place] [address], [place] [address] Jun, [facility] [address] [id number] [address] [place] [address], [place] [address] Jun, [facility] [address] [id number] [address] [place] [address], [place] [address] Jun, [facility] [address] [id number] [address] [place] [address], [place] [address] Jun, [facility] [address] [id number] [address] [place] [address], [place] [address] Jun, [facility] [address] [id number] [address] [place] [address], [place] [address] Jun, [facility] [address] [id number] [address] [place] [address], [place] [address] Jun, [facility] [address] [id number] [address] [place] [address], [place] [address] Jun, [facility] [address] [id number] [address] [place] [address], [place] [address] May, [facility] [address] [id number] [address] [place] [address], [place] [address] May, [facility] [address] [id number] [address] [place] [address], [place] [address] 30 May, 2014 [facility] [address] [id number] [address] [place] [address], [place] [address] 30 May, 2014 [facility] [address] [id number] [address] [place] [address], [place] [address] 17 May, 2014 [facility] [address] [id number] [address] [place] [address], [place] [address] 15 May, 2014 [facility] [address] [id number] [address] [place] [address], [place] [address] 15 May, 2014 [facility] [address] [id number] [address] [place] [address], [place] [address] 12 May, 2014 [facility] [address] [id number] [address] [place] [address], [place] [address] May, [facility] [address] [id number] [address] [place] [address], [place] [address] May, [facility] [address] [id number] [address] [place] [address], [place] [address] May, [facility] [address] [id number] [address] [place] [address], [place] [address] Apr, [facility] [address] [id number] [address] [place] [address], [place] [address] Apr, [facility] [address] [id number] [address] [place] [address], [place] [address] Apr, [facility] [address] [id number] [address] [place] [address], [place] [address] Apr, [facility] [address] [id number] [address] [place] [address], [place] [address] Mar, [facility] [address] [id number] [address] [place] [address], [place] [address] 29 Mar, 2014 [facility] [address] [id number] [address] [place] [address], [place] [address] 2014 [facility] [address] [id number] [address] [place] [address] [address] 2014 [facility] [address] [id number] [address] [place] [address], [place] [address] Mar, [facility] [address] [id number] [address] [place] [address], [place] [address] Mar, [facility] [address] [id number] [address] [place] [address], [place] [address] 29 Feb, 2014 [facility] [address] [id number] [address] [place] [address], [place] [address] 29 Feb, 2014 [facility] [address] [id number] [address] [place] [address], [place] [address] 17 Feb, 2014 [facility] [address] [id number] [address] [place] [address], [place] [address] 16 Feb, 2014 [facility] [address] [id number] [address] [place] [address], [place] [address] 16 Feb, 2014 [facility] [address] [id number] [address] [place] [address], [place] [address] Feb, [facility] [address] [id number] [address] [place] [address], [place] [address] 03 Feb, 2014 [facility] [address] [id number] [address] [place] [address], [place] [address] Jan, [facility] [address] [id number] [address] [place] [address], [place] [address] Jan, [facility] [address] [id number] [address] [place] [address], [place] [address] Jan, [facility] [address] [id number] [address] [place] [address], [place] [address] Jan, [facility] [address] [id number] [address] [place] [address], [place] [address] Dec, [facility] [address] [id number] [address] [place] [address], [place] [address] Dec, [facility] [address] [facility] [id number] [address] [address] Dec, [facility] [address] [facility] [id number] [address] [address] Dec, IMMUNIZATIONS No Known Immunizations SOCIAL HISTORY [...]
--- OUTSIDE RECORDS SUMMARY | 2019-10-29 01:18 | XMS REPORT ---
Author Author RICOVeronica Ferrell ANGE Organization [facility] Address [address] [place] [address] Care Team Providers Care Marketing Proposal Specialist Name Role Phone ANGE REYNOSO Unavailable PROBLEMS Type Condition ICD9-CM Code GGD84-YO Code Onset Dates Condition S tatus SNOMED Code Problem Bilateral low back pain without sciatica M54.5 Active 143497771 Problem Anxiety F41.9 Active 52974919 Problem Chronic pain syndrome G89.4 Active 950753498 Problem Thrush B37.0 Active 92146743 Problem Type 2 diabetes mellitus with complication E11.8 Active 36856383 Problem COPD with acute exacerbation J44.1 A ctive 206183692 Problem History of long-term use of multiple prescription drugs Z92.29 Active 944249115 Problem Essential hypertension I10 Active 99417664 Problem Mixed hyperlipidemia E78.2 Active 283966064 Problem Long-term use of high-risk medication Z79.899 Active 461118953 Problem Chronic obstructive pulmonary disease, unspecified COPD ty pe J44.9 Active 65469045 ALLERGIES No Information ENCOUNTERS Encounter Location Date Diagnosis [facility] [address] [id number] [address] [place] [phone] Nov, [facility] [address] [id number] [address] [place] [phone] October, Scabies B86 [facility] [address] [id number] [address] [place] [id number] October, Acute upper respiratory infe ction, unspecified J06.9 [facility] [address] [id number] [address] [place] [phone] October, Dysuria R30.0 and Coughing R 05 [facility] [id number] [place] [address] Aug, [facility] [address] [id number] [address] [place] [phone] Jun, [facility] [address] [id number] [address] [place] [id number] Jun, [facility] [address] [id number] [address] [place] [phone] Jun, [facility] [address] [id number] [address] [place] [phone] May, [facility] [address] [id number] [address] [place] [phone] May, [facility] [address] [facility] [id number] [address] [place] [id number] May, [facility] [address] [facility] [id number] [address] [place] [id number] Apr, Type 2 diabetes mellitus wit h complication E11.8 ; Chronic pain syndrome G89.4 ; Bilateral low back pain without sciatica M54.5 ; Essential hypertension I10 ; Anxiety F41.9 ; COPD with acute exacerbation J44.1 ; Pain of left hand M79.642 and Pain in right hand M79.641 [facility] [address] [id number] [address] [place] [phone] Apr, [facility] [address] [id number] [address] [place] [id number] Mar, [facility] [address] [id number] [address] [place] [id number] Mar, [facility] [address] [id number] [address] [place] [id number] Mar, [facility] [address] [facility] [id number] [address] [place] [phone] Feb, [facility] [address] [facility] [id number] [address] [place] [id number] Feb, [facility] [address] [id number] [address] [place] [id number] Jan, Type 2 diabetes mellitus wit h complication E11.8 ; Chronic pain syndrome G89.4 ; Bilateral low back pain without sciatica M54.5 ; Essential hypertension I10 ; Anxiety F41.9 ; Chronic obstructive pulmonary disease, unspecified COPD type J44.9 and Thrush B37.0 [facility] [address] [id number] [address] [place] [id number] Jan, [facility] [address] [id number] [address] [place] [id number] Dec, [facility] [address] [id number] [address] [place] [phone] Dec, [facility] [address] [id number] [address] [place] [phone] Nov, [facility] [address] [id number] [address] [place] [phone] Nov, [facility] [address] [id number] [address] [place] [id number] Nov, [facility] [address] [facility] [id number] [address] [place] [phone] Nov, Chest pain, unspecified type R07.9 and COPD exacerbation J44.1 [facility] [address] [id number] [address] [place] [id number] October, [facility] [address] [facility] [id number] [address] [place] [phone] Sep, [facility] [address] [id number] [address] [place] [phone] Sep, Type 2 diabetes mellitus wit h complication E11.8 ; Chronic pain syndrome G89.4 ; Bilateral low back pain without sciatica M54.5 ; Essential hypertension I10 ; Anxiety F41.9 and COPD exacerbation J44.1 [facility] [address] [facility] [id number] [address] [place] [phone] Aug, [facility] [address] [facility] [id number] [address] [place] [phone] Aug, [facility] [address] [facility] [id number] [address] [place] [id number] Aug, Chronic pain syndrome G89.4 [facility] [address] [facility] [id number] [address] [place] [phone] Aug, [facility] [id number] [place] [address] Aug, [facility] [id number] [place] [address] Jul, Chronic pain syndrome G89.4 and Anxiety F41.9 [facility] [address] [id number] [address] [place] [id number] Jul, [facility] [address] [id number] Jun, Bilateral low back pain with out sciatica M54.5 ; Chronic pain syndrome G89.4 ; Anxiety F41.9 ; History of long-term use of multiple prescription drugs Z92.29 ; Type 2 diabetes mellitus with complication E11.8 ; Long-term use of high-risk medication Z79.899 ; Mixed hyperlipidemia E78.2 and Essential hypertension I10 [facility] [address] [id number] [address] [place] [phone] Jun, [facility] [address] [id number] [address] [place] [phone] Jun, [facility] [address] [facility] [id number] [address] [place] [phone] May, [facility] [address] [id number] [address] [place] [phone] Apr, [facility] [address] [id number] [address] [place] [phone] Mar, [facility] [address] [id number] [address] [place] [phone] Mar, Bilateral low back pain with out sciatica M54.5 ; History of long- term use of multiple prescription drugs Z92.29 ; Anxiety F41.9 ; Chronic pain syndrome G89.4 ; Type 2 diabetes mellitus with complication E11.8 ; Long-term use of high-risk medication Z79.899 and Mixed hyperlipidemia E78.2 [facility] [address] [id number] [address] [place] [phone] Mar, [facility] [address] [id number] [address] [place] [id number] Mar, Chronic pain syndrome G89.4 [facility] [address] [id number] [address] [place] [id number] Mar, [facility] [address] [id number] [address] [place] [phone] Feb, [facility] [address] [id number] [address] [place] [phone] Feb, [facility] [address] [id number] [address] [place] [phone] Feb, [facility] [address] [id number] [address] [place] [phone] Feb, [facility] [address] [id number] [address] [place] [id number] Jan, [facility] [address] [facility] [id number] [address] [place] [id number] Jan, [facility] [address] [id number] [address] [place] [phone] Dec, [facility] [address] [id number] [address] [place] [phone] Dec, Lumbago 724.2 ; Diabetes thony litus without mention of complication, type II or unspecified type, not stated as uncontrolled 250.00 ; Essential hypertension, benign 401.1 ; Anxiety state, unspecified 300.00 ; Chronic pain 338.29 ; COPD with acute exacerbation 491.21 ; Tobacco abuse 305.1 ; Depression 311 and Hyperlipidemia 272.4 [facility] [address] [id number] [address] [place] [phone] Dec, [facility] [address] [facility] [id number] [address] [place] [id number] Nov, Lumbago 724.2 ; Diabetes thony litus without mention of complication, type II or unspecified type, not stated as uncontrolled 250.00 ; Essential hypertension, benign 401.1 ; Anxiety state, unspecified 300.00 ; Chronic pain 338.29 ; COPD with acute exacerbation 491.21 ; Tobacco abuse 305.1 and Depression 311 [facility] [address] [id number] [address] [place] [phone] Nov, [facility] [address] [id number] [address] [place] [phone] Nov, [facility] [address] [id number] [address] [place] [phone] Nov, [facility] [address] [id number] [address] [place] [phone] October, [facility] [address] [id number] [address] [place] [phone] October, [facility] [address] [id number] [address] [place] [phone] October, [facility] [address] [id number] [address] [place] [phone] October, [facility] [address] [id number] [address] [place] [phone] October, [facility] [address] [id number] [address] [place] [phone] Sep, [facility] [address] [facility] [id number] [address] [place] [phone] Sep, [facility] [address] [id number] [address] [place] [address], [place] [address] 13 Sep, 2014 [facility] [address] [id number] [address] [place] [address], [place] [address] 23 Aug, 2014 [facility] [address] [id number] [address] [place] [address], [place] [address] 23 Aug, 2014 [facility] [address] [id number] [address] [place] [address], [place] [address] 20 Aug, 2014 [facility] [address] [id number] [address] [place] [address], [place] [address] 20 Aug, 2014 [facility] [address] [id number] [address] [place] [address], [place] [address] 19 Aug, 2014 [facility] [address] [id number] [address] [place] [address], [place] [address] 19 Aug, 2014 [facility] [address] [id number] [address] [place] [address], [place] [address] 16 Aug, 2014 [facility] [address] [id number] [address] [place] [address], [place] [address] 16 Aug, 2014 [facility] [address] [id number] [address] [place] [address], [place] [address] 16 Aug, 2014 [facility] [address] [id number] [address] [place] [address], [place] [address] 16 Aug, 2014 [facility] [address] [id number] [address] [place] [address], [place] [address] 13 Aug, 2014 [facility] [address] [id number] [address] [place] [address], [place] [address] 13 Aug, 2014 [facility] [address] [id number] [address] [place] [address], [place] [address] 24 Jul, 2014 [facility] [address] [id number] [address] [place] [address], [place] [address] 23 Jul, 2014 [facility] [address] [id number] [address] [place] [address], [place] [address] Jul, [facility] [address] [id number] [address] [place] [address], [place] [address] Jul, [facility] [address] [id number] [address] [place] [address], [place] [address] Jul, [facility] [address] [id number] [address] [place] [address], [place] [address] Jul, [facility] [address] [id number] [address] [place] [address], [place] [address] Jul, [facility] [address] [id number] [address] [place] [address], [place] [address] Jun, [facility] [address] [id number] [address] [place] [address], [place] [address] Jun, [facility] [address] [id number] [address] [place] [address], [place] [address] Jun, [facility] [address] [id number] [address] [place] [address], [place] [address] Jun, [facility] [address] [id number] [address] [place] [address], [place] [address] Jun, [facility] [address] [id number] [address] [place] [address], [place] [address] Jun, [facility] [address] [id number] [address] [place] [address], [place] [address] Jun, [facility] [address] [id number] [address] [place] [address], [place] [address] Jun, [facility] [address] [id number] [address] [place] [address], [place] [address] Jun, [facility] [address] [id number] [address] [place] [address], [place] [address] May, [facility] [address] [id number] [address] [place] [address], [place] [address] May, [facility] [address] [id number] [address] [place] [address], [place] [address] 30 May, 2014 [facility] [address] [id number] [address] [place] [address], [place] [address] 30 May, 2014 [facility] [address] [id number] [address] [place] [address], [place] [address] 17 May, 2014 [facility] [address] [id number] [address] [place] [address], [place] [address] 15 May, 2014 [facility] [address] [id number] [address] [place] [address], [place] [address] 15 May, 2014 [facility] [address] [id number] [address] [place] [address], [place] [address] 12 May, 2014 [facility] [address] [id number] [address] [place] [address], [place] [address] May, [facility] [address] [id number] [address] [place] [address], [place] [address] May, [facility] [address] [id number] [address] [place] [address], [place] [address] May, [facility] [address] [id number] [address] [place] [address], [place] [address] Apr, [facility] [address] [id number] [address] [place] [address], [place] [address] Apr, [facility] [address] [id number] [address] [place] [address], [place] [address] Apr, [facility] [address] [id number] [address] [place] [address], [place] [address] Apr, [facility] [address] [id number] [address] [place] [address], [place] [address] 29 Mar, 2014 [facility] [address] [id number] [address] [place] [address], [place] [address] 29 Mar, 2014 [facility] [address] [id number] [address] [place] [address], [place] [address] Mar, [facility] [address] [id number] [address] [place] [address], [place] [address] 2014 [facility] [address] [id number] [address] [place] [address], [place] [address] Mar, [facility] [address] [id number] [address] [place] [address], [place] [address] Mar, [facility] [address] [id number] [address] [place] [address], [place] [address] 29 Feb, 2014 [facility] [address] [id number] [address] [place] [address], [place] [address] 29 Feb, 2014 [facility] [address] [id number] [address] [place] [address], [place] [address] 17 Feb, 2014 [facility] [address] [id number] [address] [place] [address], [place] [address] 16 Feb, 2014 [facility] [address] [id number] [address] [place] [address], [place] [address] 16 Feb, 2014 [facility] [address] [id number] [address] [place] [address], [place] [address] Feb, [facility] [address] [id number] [address] [place] [address], [place] [address] 03 Feb, 2014 [facility] [address] [id number] [address] [place] [address], [place] [address] Jan, [facility] [address] [id number] [address] [place] [address], [place] [address] Jan, [facility] [address] [id number] [address] [place] [address], [place] [address] Jan, [facility] [address] [id number] [address] [place] [address], [place] [address] Jan, [facility] [address] [id number] [address] [place] [address], [place] [address] Dec, [facility] [address] [id number] [address] [address] Dec, [facility] [address] [facility] [id number] [address] [place] [id number] Dec, [facility] [address] [facility] [id number] [address] [place] [id number] Dec, IMMUNIZATIONS No Known Immunizations SOCIAL HISTORY [...]
--- OUTSIDE RECORDS SUMMARY | 2019-10-29 01:18 | XMS REPORT ---
Author Author RICOVeronica Ferrell ANGE Organization [facility] Address [address] [place] [address] Care Team Providers Care Auditing Coder Name Role Phone ANGE REYNOSO Unavailable PROBLEMS Type Condition ICD9-CM Code WJM59-NP Code Onset Dates Condition S tatus SNOMED Code Problem Bilateral low back pain without sciatica M54.5 Active 361240810 Problem Anxiety F41.9 Active 02993848 Problem Chronic pain syndrome G89.4 Active 967068388 Problem Thrush B37.0 Active 62479842 Problem Type 2 diabetes mellitus with complication E11.8 Active 58054799 Problem COPD with acute exacerbation J44.1 A ctive 605645315 Problem History of long-term use of multiple prescription drugs Z92.29 Active 021542373 Problem Essential hypertension I10 Active 57695361 Problem Mixed hyperlipidemia E78.2 Active 022974347 Problem Long-term use of high-risk medication Z79.899 Active 594351608 Problem Chronic obstructive pulmonary disease, unspecified COPD ty pe J44.9 Active [id number] ALLERGIES No Information ENCOUNTERS Encounter Location Date Diagnosis [facility] [address] [id number] [address] [place] [id number] Nov, [facility] [address] [id number] [address] [place] [phone] October, Scabies B86 [facility] [address] [id number] [address] [place] [phone] October, Acute upper respiratory infe ction, unspecified J06.9 [facility] [address] [id number] [address] [place] [id number] October, Dysuria R30.0 and Coughing R 05 [facility] [id number] [place] [phone] Aug, [facility] [address] [id number] [address] [place] [phone] Jun, [facility] [address] [id number] [address] [place] [phone] Jun, [facility] [address] [id number] [address] [place] [id number] Jun, [facility] [address] [id number] [address] [place] [phone] May, [facility] [address] [id number] [address] [place] [id number] May, [facility] [address] [facility] [id number] [address] [place] [phone] May, [facility] [address] [facility] [id number] [address] [place] [phone] Apr, Type 2 diabetes mellitus wit h complication E11.8 ; Chronic pain syndrome G89.4 ; Bilateral low back pain without sciatica M54.5 ; Essential hypertension I10 ; Anxiety F41.9 ; COPD with acute exacerbation J44.1 ; Pain of left hand M79.642 and Pain in right hand M79.641 [facility] [address] [id number] [address] [place] [phone] Apr, [facility] [address] [id number] [address] [place] [phone] Mar, [facility] [address] [id number] [address] [place] [id number] Mar, [facility] [address] [id number] [address] [place] [phone] Mar, [facility] [address] [facility] [id number] [address] [place] [phone] Feb, [facility] [address] [facility] [id number] [address] [place] [id number] Feb, [facility] [address] [id number] [address] [place] [phone] Jan, Type 2 diabetes mellitus wit h complication E11.8 ; Chronic pain syndrome G89.4 ; Bilateral low back pain without sciatica M54.5 ; Essential hypertension I10 ; Anxiety F41.9 ; Chronic obstructive pulmonary disease, unspecified COPD type J44.9 and Thrush B37.0 [facility] [address] [id number] [address] [place] [id number] Jan, [facility] [address] [id number] [address] [place] [phone] Dec, [facility] [address] [id number] [address] [place] [phone] Dec, [facility] [address] [id number] [address] [place] [phone] Nov, [facility] [address] [id number] [address] [place] [phone] Nov, [facility] [address] [id number] [address] [place] [phone] Nov, [facility] [address] [facility] [id number] [address] [place] [phone] Nov, Chest pain, unspecified type R07.9 and COPD exacerbation J44.1 [facility] [address] [id number] [address] [place] [phone] October, [facility] [address] [facility] [id number] [address] [place] [phone] Sep, [facility] [address] [id number] [address] [place] [phone] Sep, Type 2 diabetes mellitus wit h complication E11.8 ; Chronic pain syndrome G89.4 ; Bilateral low back pain without sciatica M54.5 ; Essential hypertension I10 ; Anxiety F41.9 and COPD exacerbation J44.1 [facility] [address] [facility] [id number] [address] [place] [phone] Aug, [facility] [address] [facility] [id number] [address] [place] [phone] Aug, [facility] [address] [facility] [id number] [address] [place] [phone] Aug, Chronic pain syndrome G89.4 [facility] [address] [facility] [id number] [address] [place] [phone] Aug, [facility] [id number] [place] [phone] Aug, [facility] [id number] [place] [address] Jul, Chronic pain syndrome G89.4 and Anxiety F41.9 [facility] [address] [id number] [address] [place] [id number] Jul, [facility] [address] [address] Jun, Bilateral low back pain with out sciatica M54.5 ; Chronic pain syndrome G89.4 ; Anxiety F41.9 ; History of long-term use of multiple prescription drugs Z92.29 ; Type 2 diabetes mellitus with complication E11.8 ; Long-term use of high-risk medication Z79.899 ; Mixed hyperlipidemia E78.2 and Essential hypertension I10 [facility] [address] [id number] [address] [place] [phone] Jun, [facility] [address] [id number] [address] [place] [phone] Jun, [facility] [address] [facility] [id number] [address] [place] [phone] May, [facility] [address] [id number] [address] [place] [id number] Apr, [facility] [address] [id number] [address] [place] [phone] Mar, [facility] [address] [id number] [address] [place] [address] Mar, Bilateral low back pain with out sciatica M54.5 ; History of long- term use of multiple prescription drugs Z92.29 ; Anxiety F41.9 ; Chronic pain syndrome G89.4 ; Type 2 diabetes mellitus with complication E11.8 ; Long-term use of high-risk medication Z79.899 and Mixed hyperlipidemia E78.2 [facility] [address] [id number] [address] [place] [phone] Mar, [facility] [address] [id number] [address] [place] [id number] Mar, Chronic pain syndrome G89.4 [facility] [address] [id number] [address] [place] [phone] Mar, [facility] [address] [id number] [address] [place] [phone] Feb, [facility] [address] [id number] [address] [place] [phone] Feb, [facility] [address] [id number] [address] [place] [phone] Feb, [facility] [address] [id number] [address] [place] [id number] Feb, [facility] [address] [id number] [address] [place] [phone] Jan, [facility] [address] [facility] [id number] [address] [place] [phone] Jan, [facility] [address] [id number] [address] [place] [phone] Dec, [facility] [address] [id number] [address] [place] [id number] Dec, Lumbago 724.2 ; Diabetes thony litus without mention of complication, type II or unspecified type, not stated as uncontrolled 250.00 ; Essential hypertension, benign 401.1 ; Anxiety state, unspecified 300.00 ; Chronic pain 338.29 ; COPD with acute exacerbation 491.21 ; Tobacco abuse 305.1 ; Depression 311 and Hyperlipidemia 272.4 [facility] [address] [id number] [address] [place] [phone] Dec, [facility] [address] [facility] [id number] [address] [place] [id number] Nov, Lumbago 724.2 ; Diabetes thony litus without mention of complication, type II or unspecified type, not stated as uncontrolled 250.00 ; Essential hypertension, benign 401.1 ; Anxiety state, unspecified 300.00 ; Chronic pain 338.29 ; COPD with acute exacerbation 491.21 ; Tobacco abuse 305.1 and Depression 311 [facility] [address] [id number] [address] [place] [id number] Nov, [facility] [address] [id number] [address] [place] [phone] Nov, [facility] [address] [id number] [address] [place] [phone] Nov, [facility] [address] [id number] [address] [place] [phone] October, [facility] [address] [id number] [address] [place] [phone] October, [facility] [address] [id number] [address] [place] [id number] October, [facility] [address] [id number] [address] [place] [phone] October, [facility] [address] [id number] [address] [place] [phone] October, [facility] [address] [id number] [address] [place] [phone] Sep, [facility] [address] [facility] [id number] [address] [place] [phone] Sep, [facility] [address] [id number] [address] [place] [address], [place] [id number] 13 Sep, 2014 [facility] [address] [id number] [address] [place] [address], [place] [id number] 23 Aug, 2014 [facility] [address] [id number] [address] [place] [address], [place] [id number] 23 Aug, 2014 [facility] [address] [id number] [address] [place] [address], [place] [id number] 20 Aug, 2014 [facility] [address] [id number] [address] [place] [address], [place] [id number] 20 Aug, 2014 [facility] [address] [id number] [address] [place] [address], [place] [id number] 19 Aug, 2014 [facility] [address] [id number] [address] [place] [address], [place] [id number] 19 Aug, 2014 [facility] [address] [id number] [address] [place] [address], [place] [id number] 16 Aug, 2014 [facility] [address] [id number] [address] [place] [address], [place] [id number] 16 Aug, 2014 [facility] [address] [id number] [address] [place] [address], [place] [id number] 16 Aug, 2014 [facility] [address] [id number] [address] [place] [address], [place] [id number] 16 Aug, 2014 [facility] [address] [id number] [address] [place] [address], [place] [id number] 13 Aug, 2014 [facility] [address] [id number] [address] [place] [address], [place] [id number] 13 Aug, 2014 [facility] [address] [id number] [address] [place] [address], [place] [id number] 24 Jul, 2014 [facility] [address] [id number] [address] [place] [address], [place] [id number] 23 Jul, 2014 [facility] [address] [id number] [address] [place] [address], [place] [id number] Jul, [facility] [address] [id number] [address] [place] [address], [place] [address] Jul, [facility] [address] [id number] [address] [place] [address], [place] [id number] Jul, [facility] [address] [id number] [address] [place] [address], [place] [id number] Jul, [facility] [address] [id number] [address] [place] [address], [place] [address] Jul, [facility] [address] [id number] [address] [place] [address], [place] [id number] Jun, [facility] [address] [id number] [address] [place] [address], [place] [id number] Jun, [facility] [address] [id number] [address] [place] [address], [place] [id number] Jun, [facility] [address] [id number] [address] [place] [address], [place] [id number] Jun, [facility] [address] [id number] [address] [place] [address], [place] [id number] Jun, [facility] [address] [id number] [address] [place] [address], [place] [id number] Jun, [facility] [address] [id number] [address] [place] [address], [place] [address] Jun, [facility] [address] [id number] [address] [place] [address], [place] [id number] Jun, [facility] [address] [id number] [address] [place] [address], [place] [id number] Jun, [facility] [address] [id number] [address] [place] [address], [place] [id number] May, [facility] [address] [id number] [address] [place] [address], [place] [id number] May, [facility] [address] [id number] [address] [place] [address], [place] [id number] 30 May, 2014 [facility] [address] [id number] [address] [place] [address], [place] [id number] 30 May, 2014 [facility] [address] [id number] [address] [place] [address], [place] [id number] 17 May, 2014 [facility] [address] [id number] [address] [place] [address], [place] [id number] 15 May, 2014 [facility] [address] [id number] [address] [place] [address], [place] [id number] 15 May, 2014 [facility] [address] [id number] [address] [place] [address], [place] [id number] 12 May, 2014 [facility] [address] [id number] [address] [place] [address], [place] [id number] May, [facility] [address] [id number] [address] [place] [address], [place] [address] May, [facility] [address] [id number] [address] [place] [address], [place] [id number] May, [facility] [address] [id number] [address] [place] [address], [place] [id number] Apr, [facility] [address] [id number] [address] [place] [address], [place] [id number] Apr, [facility] [address] [id number] [address] [place] [address], [place] [address] Apr, [facility] [address] [id number] [address] [place] [address], [place] [address] Apr, [facility] [address] [id number] [address] [place] [address], [place] [id number] 29 Mar, 2014 [facility] [address] [id number] [address] [place] [address], [place] [id number] 29 Mar, 2014 [facility] [address] [id number] [address] [place] [address], [place] [address] Mar, [facility] [address] [id number] [address] [place] [address], [place] [id number] 2014 [facility] [address] [id number] [address] [place] [address], [place] [id number] Mar, [facility] [address] [id number] [address] [place] [address], [place] [id number] Mar, [facility] [address] [id number] [address] [place] [address], [place] [id number] 29 Feb, 2014 [facility] [address] [id number] [address] [place] [address], [place] [id number] 29 Feb, 2014 [facility] [address] [id number] [address] [place] [address], [place] [id number] 17 Feb, 2014 [facility] [address] [id number] [address] [place] [address], [place] [id number] 16 Feb, 2014 [facility] [address] [id number] [address] [place] [address], [place] [id number] 16 Feb, 2014 [facility] [address] [id number] [address] [place] [address], [place] [id number] Feb, [facility] [address] [id number] [address] [place] [address], [place] [id number] 03 Feb, 2014 [facility] [address] [id number] [address] [place] [address], [place] [id number] Jan, [facility] [address] [id number] [address] [place] [address], [place] [id number] Jan, [facility] [address] [id number] [address] [place] [address], [place] [id number] Jan, [facility] [address] [id number] [address] [place] [address], [place] [id number] Jan, [facility] [address] [id number] [address] [place] [address], [place] [address] Dec, [facility] [address] [id number] [address] [address] Dec, [facility] [address] [facility] [id number] [address] [place] [id number] Dec, [facility] [address] [facility] [id number] [address] [place] [id number] Dec, IMMUNIZATIONS No Known Immunizations SOCIAL HISTORY [...]
--- OUTSIDE RECORDS SUMMARY | 2019-10-29 01:18 | XMS REPORT ---
Author Author RICOVeronica Ferrell ANGE Organization [facility] Address [address] [place] [address] Care Team Providers Care Metallurgical Lab Technician Name Role Phone ANGE REYNOSO Unavailable PROBLEMS Type Condition ICD9-CM Code ZPJ08-[id number] Code Onset Dates Condition S tatus SNOMED Code Problem Bilateral low back pain without sciatica M54.5 Active 986186326 Problem Anxiety F41.9 Active 54228682 Problem Chronic pain syndrome G89.4 Active 062481055 Problem Thrush B37.0 Active 05984189 Problem Type 2 diabetes mellitus with complication E11.8 Active 46697790 Problem COPD with acute exacerbation J44.1 A ctive 737922804 Problem History of long-term use of multiple prescription drugs Z92.29 Active 179703743 Problem Essential hypertension I10 Active 47865955 Problem Mixed hyperlipidemia E78.2 Active 134944859 Problem Long-term use of high-risk medication Z79.899 Active 751669911 Problem Chronic obstructive pulmonary disease, unspecified COPD ty pe J44.9 Active 18727438 ALLERGIES No Information ENCOUNTERS Encounter Location Date Diagnosis [facility] [address] [id number] [address] [place] [address] Nov, [facility] [address] [id number] [address] [place] [phone] October, Scabies B86 [facility] [address] [id number] [address] [place] [phone] October, Acute upper respiratory infe ction, unspecified J06.9 [facility] [address] [id number] [address] [place] [phone] October, Dysuria R30.0 and Coughing R 05 [facility] [id number] [place] [address] Aug, [facility] [address] [id number] [address] [place] [address] Jun, [facility] [address] [id number] [address] [place] [phone] Jun, [facility] [address] [id number] [address] [place] [phone] Jun, [facility] [address] [id number] [address] [place] [address] May, [facility] [address] [id number] [address] [place] [address] May, [facility] [address] [facility] [id number] [address] [place] [address] May, [facility] [address] [facility] [id number] [address] [place] [address] Apr, Type 2 diabetes mellitus wit h complication E11.8 ; Chronic pain syndrome G89.4 ; Bilateral low back pain without sciatica M54.5 ; Essential hypertension I10 ; Anxiety F41.9 ; COPD with acute exacerbation J44.1 ; Pain of left hand M79.642 and Pain in right hand M79.641 [facility] [address] [id number] [address] [place] [phone] Apr, [facility] [address] [id number] [address] [place] [address] Mar, [facility] [address] [id number] [address] [place] [phone] Mar, [facility] [address] [id number] [address] [place] [phone] Mar, [facility] [address] [facility] [id number] [address] [place] [phone] Feb, [facility] [address] [facility] [id number] [address] [place] [phone] Feb, [facility] [address] [id number] [address] [place] [address] Jan, Type 2 diabetes mellitus wit h complication E11.8 ; Chronic pain syndrome G89.4 ; Bilateral low back pain without sciatica M54.5 ; Essential hypertension I10 ; Anxiety F41.9 ; Chronic obstructive pulmonary disease, unspecified COPD type J44.9 and Thrush B37.0 [facility] [address] [id number] [address] [place] [id number] Jan, [facility] [address] [id number] [address] [place] [address] Dec, [facility] [address] [id number] [address] [place] [phone] Dec, [facility] [address] [id number] [address] [place] [address] Nov, [facility] [address] [id number] [address] [place] [phone] Nov, [facility] [address] [id number] [address] [place] [address] Nov, [facility] [address] [facility] [id number] [address] [place] [address] Nov, Chest pain, unspecified type R07.9 and COPD exacerbation J44.1 [facility] [address] [id number] [address] [place] [phone] October, [facility] [address] [facility] [id number] [address] [place] [address] Sep, [facility] [address] [id number] [address] [place] [address] Sep, Type 2 diabetes mellitus wit h complication E11.8 ; Chronic pain syndrome G89.4 ; Bilateral low back pain without sciatica M54.5 ; Essential hypertension I10 ; Anxiety F41.9 and COPD exacerbation J44.1 [facility] [address] [facility] [id number] [address] [place] [address] Aug, [facility] [address] [facility] [id number] [address] [place] [address] Aug, [facility] [address] [facility] [id number] [address] [place] [address] Aug, Chronic pain syndrome G89.4 [facility] [address] [facility] [id number] [address] [place] [phone] Aug, [facility] [id number] [place] [address] Aug, [facility] [id number] [place] [address] Jul, Chronic pain syndrome G89.4 and Anxiety F41.9 [facility] [address] [id number] [address] [place] [address] Jul, [facility] [address] [address] Jun, Bilateral low back pain with out sciatica M54.5 ; Chronic pain syndrome G89.4 ; Anxiety F41.9 ; History of long-term use of multiple prescription drugs Z92.29 ; Type 2 diabetes mellitus with complication E11.8 ; Long-term use of high-risk medication Z79.899 ; Mixed hyperlipidemia E78.2 and Essential hypertension I10 [facility] [address] [id number] [address] [place] [phone] Jun, [facility] [address] [id number] [address] [place] [phone] Jun, [facility] [address] [facility] [id number] [address] [place] [phone] May, [facility] [address] [id number] [address] [place] [address] Apr, [facility] [address] [id number] [address] [place] [phone] Mar, [facility] [address] [id number] [address] [place] [address] Mar, Bilateral low back pain with out sciatica M54.5 ; History of long- term use of multiple prescription drugs Z92.29 ; Anxiety F41.9 ; Chronic pain syndrome G89.4 ; Type 2 diabetes mellitus with complication E11.8 ; Long-term use of high-risk medication Z79.899 and Mixed hyperlipidemia E78.2 [facility] [address] [id number] [address] [place] [address] Mar, [facility] [address] [id number] [address] [place] [address] Mar, Chronic pain syndrome G89.4 [facility] [id number] [address] [place] [address] Mar, [facility] [address] [id number] [address] [place] [address] Feb, [facility] [address] [id number] [address] [place] [id number] Feb, [facility] [address] [id number] [address] [place] [phone] Feb, [facility] [address] [id number] [address] [place] [phone] Feb, [facility] [address] [id number] [address] [place] [address] Jan, [facility] [address] [facility] [id number] [address] [place] [phone] Jan, [facility] [address] [id number] [address] [place] [phone] Dec, [facility] [address] [id number] [address] [place] [address] Dec, Lumbago 724.2 ; Diabetes thony litus without mention of complication, type II or unspecified type, not stated as uncontrolled 250.00 ; Essential hypertension, benign 401.1 ; Anxiety state, unspecified 300.00 ; Chronic pain 338.29 ; COPD with acute exacerbation 491.21 ; Tobacco abuse 305.1 ; Depression 311 and Hyperlipidemia 272.4 [facility] [address] [id number] [address] [place] [address] Dec, [facility] [address] [facility] [id number] [address] [place] [address] Nov, Lumbago 724.2 ; Diabetes thony litus without mention of complication, type II or unspecified type, not stated as uncontrolled 250.00 ; Essential hypertension, benign 401.1 ; Anxiety state, unspecified 300.00 ; Chronic pain 338.29 ; COPD with acute exacerbation 491.21 ; Tobacco abuse 305.1 and Depression 311 [facility] [address] [id number] [address] [place] [address] Nov, [facility] [address] [id number] [address] [place] [phone] Nov, [facility] [address] [id number] [address] [place] [address] Nov, [facility] [address] [id number] [address] [place] [address] October, [facility] [address] [id number] [address] [place] [phone] October, [facility] [address] [id number] [address] [place] [phone] October, [facility] [address] [id number] [address] [place] [phone] October, [facility] [address] [id number] [address] [place] [phone] October, [facility] [address] [id number] [address] [place] [phone] Sep, [facility] [address] [facility] [id number] [address] [place] [phone] Sep, [facility] [address] [id number] [address] [place] [address], [place] [address] 13 Sep, 2014 [facility] [address] [id number] [address] [place] [address], [place] [id number] 23 Aug, 2014 [facility] [address] [id number] [address] [place] [address], [place] [address] 23 Aug, 2014 [facility] [address] [id number] [address] [place] [address], [place] [address] 20 Aug, 2014 [facility] [address] [id number] [address] [place] [address], [place] [address] 20 Aug, 2014 [facility] [address] [id number] [address] [place] [address], [place] [address] 19 Aug, 2014 [facility] [address] [id number] [address] [place] [address], [place] [address] 19 Aug, 2014 [facility] [address] [id number] [address] [place] [address], [place] [address] 16 Aug, 2014 [facility] [address] [id number] [address] [place] [address], [place] [address] 16 Aug, 2014 [facility] [address] [id number] [address] [place] [address], [place] [address] 16 Aug, 2014 [facility] [address] [id number] [address] [place] [address], [place] [address] 16 Aug, 2014 [facility] [address] [id number] [address] [place] [address], [place] [address] 13 Aug, 2014 [facility] [address] [id number] [address] [place] [address], [place] [address] 13 Aug, 2014 [facility] [address] [id number] [address] [place] [address], [place] [id number] 24 Jul, 2014 [facility] [address] [id number] [address] [place] [address], [place] [address] 23 Jul, 2014 [facility] [address] [id number] [address] [place] [address], [place] [address] Jul, [facility] [address] [id number] [address] [place] [address], [place] [address] Jul, [facility] [address] [id number] [address] [place] [address], [place] [id number] Jul, [facility] [address] [id number] [address] [place] [address], [place] [id number] Jul, [facility] [address] [id number] [address] [place] [address], [place] [address] Jul, [facility] [address] [id number] [address] [place] [address], [place] [address] Jun, [facility] [address] [id number] [address] [place] [address], [place] [address] Jun, [facility] [address] [id number] [address] [place] [address], [place] [address] Jun, [facility] [address] [id number] [address] [place] [address], [place] [address] Jun, [facility] [address] [id number] [address] [place] [address], [place] [address] Jun, [facility] [address] [id number] [address] [place] [address], [place] [address] Jun, [facility] [address] [id number] [address] [place] [address], [place] [address] Jun, [facility] [address] [id number] [address] [place] [address], [place] [address] Jun, [facility] [address] [id number] [address] [place] [address], [place] [address] Jun, [facility] [address] [id number] [address] [place] [address], [place] [address] May, [facility] [address] [id number] [address] [place] [address], [place] [address] May, [facility] [address] [id number] [address] [place] [address], [place] [address] 30 May, 2014 [facility] [address] [id number] [address] [place] [address], [place] [address] 30 May, 2014 [facility] [address] [id number] [address] [place] [address], [place] [address] 17 May, 2014 [facility] [address] [id number] [address] [place] [address], [place] [address] 15 May, 2014 [facility] [address] [id number] [address] [place] [address], [place] [address] 15 May, 2014 [facility] [address] [id number] [address] [place] [address], [place] [address] 12 May, 2014 [facility] [address] [id number] [address] [place] [address], [place] [address] May, [facility] [address] [id number] [address] [place] [address], [place] [address] May, [facility] [address] [id number] [address] [place] [address], [place] [address] May, [facility] [address] [id number] [address] [place] [address], [place] [address] Apr, [facility] [address] [id number] [address] [place] [address], [place] [address] Apr, [facility] [address] [id number] [address] [place] [address], [place] [address] Apr, [facility] [address] [id number] [address] [place] [address], [place] [address] Apr, [facility] [address] [id number] [address] [place] [address], [place] [address] 29 Mar, 2014 [facility] [address] [id number] [address] [place] [address], [place] [address] 29 Mar, 2014 [facility] [address] [id number] [address] [place] [address], [place] [address] Mar, [facility] [address] [id number] [address] [place] [address], [place] [address] 2014 [facility] [address] [id number] [address] [place] [address], [place] [address] Mar, [facility] [address] [id number] [address] [place] [address], [place] [address] Mar, [facility] [address] [id number] [address] [place] [address], [place] [address] 29 Feb, 2014 [facility] [address] [id number] [address] [place] [address], [place] [address] 29 Feb, 2014 [facility] [address] [id number] [address] [place] [address], [place] [address] 17 Feb, 2014 [facility] [address] [id number] [address] [place] [address], [place] [address] 16 Feb, 2014 [facility] [address] [id number] [address] [place] [address], [place] [address] 16 Feb, 2014 [facility] [address] [id number] [address] [place] [address], [place] [address] Feb, [facility] [address] [id number] [address] [place] [address], [place] [address] 03 Feb, 2014 [facility] [address] [id number] [address] [place] [address], [place] [address] Jan, [facility] [address] [id number] [address] [place] [address], [place] [address] Jan, [facility] [address] [id number] [address] [place] [address], [place] [address] Jan, [facility] [address] [id number] [address] [place] [address], [place] [address] Jan, [facility] [address] [id number] [address] [place] [address], [place] [address] Dec, [facility] [address] [id number] [place] [address] Dec, [facility] [address] [facility] [id number] [address] [place] [id number] Dec, [facility] [address] [facility] [id number] [address] [place] [id number] Dec, IMMUNIZATIONS No Known Immunizations SOCIAL HISTORY [...]
--- OUTSIDE RECORDS SUMMARY | 2019-10-29 01:19 | XMS REPORT ---
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 Name Role Phone Migration, Doctor Unavailable Unavailable PROBLEMS Type Condition ICD9-CM Code IYP38-BB Code Onset Dates Condition S tatus SNOMED Code Problem Bilateral low back pain without sciatica M54.5 Active 724439205 Problem Anxiety F41.9 Active 29871849 Problem Chronic pain syndrome G89.4 Active 265931031 Problem Thrush B37.0 Active 78049561 Problem Type 2 diabetes mellitus with complication E11.8 Active 40164106 Problem COPD with acute exacerbation J44.1 A ctive 885371739 Problem History of long-term use of multiple prescription drugs Z92.29 Active 463411944 Problem Essential hypertension I10 Active 24610308 Problem Mixed hyperlipidemia E78.2 Active 909715691 Problem Long-term use of high-risk medication Z79.899 Active 153386616 Problem Chronic obstructive pulmonary disease, unspecified COPD ty pe J44.9 Active 99732867 ALLERGIES No Information ENCOUNTERS Encounter Location Date Diagnosis [facility] [address] [id number] Nov, [facility] [address] [id number] October, Scabies B86 [facility] [address] [id number] [address] [place] [id number] October, Acute upper respiratory infe ction, unspecified J06.9 [facility] [address] [id number] October, Dysuria R30.0 and Coughing R 05 [facility] [address] [id number] [address] [place] [phone] Aug, [facility] [address] [id number] Jun, [facility] [address] [id number] [address] [place] [id number] Jun, [facility] [address] [id number] [address] [place] [id number] Jun, [facility] [address] [id number] [address] [place] [id number] May, [facility] [address] [id number] [address] [place] [phone] May, [facility] [address] [id number] [address] [place] [phone] May, [facility] [address] [facility] [id number] [address] [place] [id number] Apr, Type 2 diabetes mellitus wit h complication E11.8 ; Chronic pain syndrome G89.4 ; Bilateral low back pain without sciatica M54.5 ; Essential hypertension I10 ; Anxiety F41.9 ; COPD with acute exacerbation J44.1 ; Pain of left hand M79.642 and Pain in right hand M79.641 [facility] [address] [id number] [address] [place] [id number] Apr, [facility] [address] [id number] [address] [place] [phone] Mar, [facility] [address] [id number] [address] [place] [phone] Mar, [facility] [address] [id number] [address] [place] [phone] Mar, [facility] [address] [id number] [address] [place] [phone] Feb, [facility] [address] [id number] [address] [place] [phone] Feb, [facility] [address] [facility] [id number] [address] [place] [address] Jan, Type 2 diabetes mellitus wit h complication E11.8 ; Chronic pain syndrome G89.4 ; Bilateral low back pain without sciatica M54.5 ; Essential hypertension I10 ; Anxiety F41.9 ; Chronic obstructive pulmonary disease, unspecified COPD type J44.9 and Thrush B37.0 [facility] [address] [id number] [address] [place] [id number] Jan, [facility] [address] [id number] [address] [place] [phone] Dec, [facility] [address] [id number] [address] [place] [id number] Dec, [facility] [address] [id number] [address] [place] [phone] Nov, [facility] [address] [id number] [address] [place] [id number] Nov, [facility] [address] [id number] [address] [place] [id number] Nov, [facility] [address] [id number] [address] [place] [phone] Nov, Chest pain, unspecified type R07.9 and COPD exacerbation J44.1 [facility] [address] [id number] [address] [place] [id number] October, [facility] [address] [id number] [address] [place] [phone] Sep, [facility] [address] [id number] [address] [place] [id number] Sep, Type 2 diabetes mellitus wit h complication E11.8 ; Chronic pain syndrome G89.4 ; Bilateral low back pain without sciatica M54.5 ; Essential hypertension I10 ; Anxiety F41.9 and COPD exacerbation J44.1 [facility] [address] [id number] [address] [place] [id number] Aug, [facility] [address] [id number] [address] [place] [id number] Aug, [facility] [address] [facility] [id number] [address] [place] [phone] Aug, Chronic pain syndrome G89.4 [facility] [address] [facility] [id number] [address] [place] [id number] Aug, [facility] [address] [facility] [id number] [address] [place] [id number] Aug, [facility] [address] [facility] [id number] [address] [place] [phone] Jul, Chronic pain syndrome G89.4 and Anxiety F41.9 [facility] [id number] [place] [phone] Jul, [facility] [address] [id number] [address] [place] [id number] Jun, Bilateral low back pain with out sciatica M54.5 ; Chronic pain syndrome G89.4 ; Anxiety F41.9 ; History of long-term use of multiple prescription drugs Z92.29 ; Type 2 diabetes mellitus with complication E11.8 ; Long-term use of high-risk medication Z79.899 ; Mixed hyperlipidemia E78.2 and Essential hypertension I10 [facility] [address] [facility] [id number] [address] [place] [id number] Jun, [facility] [address] [facility] [id number] [address] [place] [phone] Jun, [facility] [address] [id number] [address] [place] [id number] May, [facility] [address] [facility] [id number] [address] [place] [phone] Apr, [facility] [address] [facility] [id number] [address] [place] [phone] Mar, [facility] [address] [facility] [id number] [address] [place] [id number] Mar, Bilateral low back pain with out sciatica M54.5 ; History of long- term use of multiple prescription drugs Z92.29 ; Anxiety F41.9 ; Chronic pain syndrome G89.4 ; Type 2 diabetes mellitus with complication E11.8 ; Long-term use of high-risk medication Z79.899 and Mixed hyperlipidemia E78.2 [facility] [address] [facility] [id number] [address] [place] [phone] Mar, [facility] [address] [id number] [address] [place] [phone] Mar, Chronic pain syndrome G89.4 [facility] [address] [id number] [address] [place] [phone] Mar, [facility] [address] [id number] [address] [place] [phone] Feb, [facility] [address] [id number] [address] [place] [id number] Feb, [facility] [address] [facility] [id number] [address] [place] [phone] Feb, [facility] [address] [id number] [address] [place] [id number] Feb, [facility] [address] [id number] [address] [place] [id number] Jan, [facility] [address] [id number] [address] [place] [phone] Jan, [facility] [address] [id number] [address] [place] [id number] Dec, [facility] [address] [id number] [address] [place] [id number] Dec, Lumbago 724.2 ; Diabetes thony litus without mention of complication, type II or unspecified type, not stated as uncontrolled 250.00 ; Essential hypertension, benign 401.1 ; Anxiety state, unspecified 300.00 ; Chronic pain 338.29 ; COPD with acute exacerbation 491.21 ; Tobacco abuse 305.1 ; Depression 311 and Hyperlipidemia 272.4 [facility] [address] [id number] [address] [place] [id number] Dec, [facility] [address] [id number] [address] [place] [id number] Nov, Lumbago 724.2 ; Diabetes thony litus without mention of complication, type II or unspecified type, not stated as uncontrolled 250.00 ; Essential hypertension, benign 401.1 ; Anxiety state, unspecified 300.00 ; Chronic pain 338.29 ; COPD with acute exacerbation 491.21 ; Tobacco abuse 305.1 and Depression 311 [facility] [address] [id number] [address] [place] [id number] Nov, [facility] [address] [id number] [address] [place] [phone] Nov, [facility] [address] [id number] [address] [place] [phone] Nov, [facility] [address] [id number] [address] [place] [phone] October, [facility] [address] [id number] [address] [place] [id number] October, [facility] [address] [id number] [address] [place] [id number] October, [facility] [address] [id number] [address] [place] [id number] October, [facility] [address] [id number] [address] [place] [id number] October, [facility] [address] [id number] [address] [place] [id number] Sep, [facility] [address] [id number] [address] [place] [id number] Sep, [facility] [address] [id number] [address] [place] [phone] Sep, [facility] [address] [id number] [facility] [place] [address] 23 Aug, 2014 [facility] [address] [id number] [address] [place] [address], [place] [id number] 23 Aug, 2014 [facility] [address] [id number] [address] [place] [address], [place] [address] 20 Aug, 2014 [facility] [address] [id number] [address] [place] [address], [place] [id number] 20 Aug, 2014 [facility] [address] [id number] [address] [place] [address], [place] [address] 19 Aug, 2014 [facility] [address] [id number] [address] [place] [address], [place] [id number] 19 Aug, 2014 [facility] [address] [id number] [address] [place] [address], [place] [address] 16 Aug, 2014 [facility] [address] [id number] [address] [place] [address], [place] [id number] 16 Aug, 2014 [facility] [address] [id number] [address] [place] [address], [place] [id number] 16 Aug, 2014 [facility] [address] [id number] [address] [place] [address], [place] [address] 16 Aug, 2014 [facility] [address] [id number] [address] [place] [address], [place] [address] 13 Aug, 2014 [facility] [address] [id number] [address] [place] [address], [place] [address] 13 Aug, 2014 [facility] [address] [id number] [address] [place] [address], [place] [id number] 24 Jul, 2014 [facility] [address] [id number] [address] [place] [address], [place] [id number] 23 Jul, 2014 [facility] [address] [id number] [address] [place] [address], [place] [address] 23 Jul, 2014 [facility] [address] [id number] [address] [place] [address], [place] [address] Jul, [facility] [address] [id number] [address] [place] [address], [place] [address] Jul, [facility] [address] [id number] [address] [place] [address], [place] [address] Jul, [facility] [address] [id number] [address] [place] [address], [place] [id number] Jul, [facility] [address] [id number] [address] [place] [address], [place] [address] Jun, [facility] [address] [id number] [address] [place] [address], [place] [address] Jun, [facility] [address] [id number] [address] [place] [address], [place] [address] Jun, [facility] [address] [id number] [address] [place] [address], [place] [address] Jun, [facility] [address] [id number] [address] [place] [address], [place] [address] Jun, [facility] [address] [id number] [address] [place] [address], [place] [address] Jun, [facility] [address] [id number] [address] [place] [address], [place] [address] Jun, [facility] [address] [id number] [address] [place] [address], [place] [id number] Jun, [facility] [address] [id number] [address] [place] [address], [place] [address] Jun, [facility] [address] [id number] [address] [place] [address], [place] [address] May, [facility] [address] [id number] [address] [place] [address], [place] [address] May, [facility] [address] [id number] [address] [place] [address], [place] [address] May, [facility] [address] [id number] [address] [place] [address], [place] [address] 30 May, 2014 [facility] [address] [id number] [address] [place] [address], [place] [address] 17 May, 2014 [facility] [address] [id number] [address] [place] [address], [place] [address] 15 May, 2014 [facility] [address] [id number] [address] [place] [address], [place] [address] 15 May, 2014 [facility] [address] [id number] [address] [place] [address], [place] [id number] 12 May, 2014 [facility] [address] [id number] [address] [place] [address], [place] [address] May, [facility] [address] [id number] [address] [place] [address], [place] [address] May, [facility] [address] [id number] [address] [place] [address], [place] [address] May, [facility] [address] [id number] [address] [place] [address], [place] [address] Apr, [facility] [address] [id number] [address] [place] [address], [place] [address] Apr, [facility] [address] [id number] [address] [place] [address], [place] [address] Apr, [facility] [address] [id number] [address] [place] [address], [place] [address] Apr, [facility] [address] [id number] [address] [place] [address], [place] [address] Mar, [facility] [address] [id number] [address] [place] [address], [place] [address] 29 Mar, 2014 [facility] [address] [id number] [address] [place] [address], [place] [address] 2014 [facility] [address] [id number] [address] [place] [address], [place] [address] 2014 [facility] [address] [id number] [address] [place] [address], [place] [address] 08 Mar, 2014 [facility] [address] [id number] [address] [place] [address], [place] [address] 08 Mar, 2014 [facility] [address] [id number] [address] [place] [address], [place] [address] 29 Feb, 2014 [facility] [address] [id number] [address] [place] [address], [place] [address] 29 Feb, 2014 [facility] [address] [id number] [address] [place] [address], [place] [address] 17 Feb, 2014 [facility] [address] [id number] [address] [place] [address], [place] [address] 16 Feb, 2014 [facility] [address] [id number] [address] [place] [address], [place] [id number] 16 Feb, 2014 [facility] [address] [id number] [address] [place] [address], [place] [address] Feb, [facility] [address] [id number] [address] [place] [address], [place] [address] Feb, [facility] [address] [id number] [address] [place] [address], [place] [address] Jan, [facility] [address] [id number] [address] [place] [address], [place] [address] Jan, [facility] [address] [id number] [address] [place] [address], [place] [address] Jan, [facility] [address] [id number] [address] [place] [address], [place] [address] Jan, [facility] [address] [id number] [address] [place] [address], [place] [address] Dec, [facility] [address] [id number] [address] [place] [address], [place] [address] Dec, [facility] [address] [id number] [address] [place] [id number] Dec, [facility] [address] [facility] [id number] [address] [address] Dec, IMMUNIZATIONS No Known Immunizations SOCIAL HISTORY Never Assessed REASON FOR VISIT EMR-[facility] PLAN OF CARE VITAL SIGNS MEDICATIONS Unknown [...]
--- OUTSIDE RECORDS SUMMARY | 2019-10-29 01:19 | XMS REPORT ---
Author Author Veronica Vanessa Doctor Organization [facility] Address Unknown Phone Unavailable Care Team Providers Care Cabinet Assembler Name Role Phone Migration, Doctor Unavailable Unavailable PROBLEMS Type Condition ICD9-CM Code IGV96-GH Code Onset Dates Condition S tatus SNOMED Code Problem Bilateral low back pain without sciatica M54.5 Active 708479278 Problem Anxiety F41.9 Active 53034483 Problem Chronic pain syndrome G89.4 Active 152106317 Problem Thrush B37.0 Active 12483561 Problem Type 2 diabetes mellitus with complication E11.8 Active 25540668 Problem COPD with acute exacerbation J44.1 A ctive 847045885 Problem History of long-term use of multiple prescription drugs Z92.29 Active 374545394 Problem Essential hypertension I10 Active 94780313 Problem Mixed hyperlipidemia E78.2 Active 840027168 Problem Long-term use of high-risk medication Z79.899 Active 212548789 Problem Chronic obstructive pulmonary disease, unspecified COPD ty pe J44.9 Active 28426551 ALLERGIES No Information ENCOUNTERS Encounter Location Date Diagnosis [facility] [address] [address] Nov, [facility] [address] [address] October, Scabies B86 [facility] [address] [id number] [address] [place] [address] October, Acute upper respiratory infe ction, unspecified J06.9 [facility] [address] [address] October, Dysuria R30.0 and Coughing R 05 [facility] [address] [id number] [address] [place] [address] Aug, [facility] [address] [address] Jun, [facility] [address] [id number] [address] [place] [address] Jun, [facility] [address] [id number] [address] [place] [address] Jun, [facility] [address] [id number] [address] [place] [address] May, [facility] [address] [id number] [address] [place] [address] May, [facility] [address] [id number] [address] [place] [address] May, [facility] [address] [facility] [id number] [address] [place] [address] Apr, Type 2 diabetes mellitus wit h complication E11.8 ; Chronic pain syndrome G89.4 ; Bilateral low back pain without sciatica M54.5 ; Essential hypertension I10 ; Anxiety F41.9 ; COPD with acute exacerbation J44.1 ; Pain of left hand M79.642 and Pain in right hand M79.641 [facility] [address] [id number] [address] [place] [address] Apr, [facility] [address] [id number] [address] [place] [address] Mar, [facility] [address] [id number] [address] [place] [address] Mar, [facility] [address] [id number] [address] [place] [address] Mar, [facility] [address] [id number] [address] [place] [address] Feb, [facility] [address] [id number] [address] [place] [address] Feb, [facility] [address] [facility] [id number] [address] [place] [address] Jan, Type 2 diabetes mellitus wit h complication E11.8 ; Chronic pain syndrome G89.4 ; Bilateral low back pain without sciatica M54.5 ; Essential hypertension I10 ; Anxiety F41.9 ; Chronic obstructive pulmonary disease, unspecified COPD type J44.9 and Thrush B37.0 [facility] [address] [id number] [address] [place] [phone] Jan, [facility] [address] [id number] [address] [place] [address] Dec, [facility] [address] [id number] [address] [place] [address] Dec, [facility] [address] [id number] [address] [place] [address] Nov, [facility] [address] [id number] [address] [place] [address] Nov, [facility] [address] [id number] [address] [place] [address] Nov, [facility] [address] [id number] [address] [place] [address] Nov, Chest pain, unspecified type R07.9 and COPD exacerbation J44.1 [facility] [address] [id number] [address] [place] [address] October, [facility] [address] [id number] [address] [place] [address] Sep, [facility] [address] [id number] [address] [place] [address] Sep, Type 2 diabetes mellitus wit h complication E11.8 ; Chronic pain syndrome G89.4 ; Bilateral low back pain without sciatica M54.5 ; Essential hypertension I10 ; Anxiety F41.9 and COPD exacerbation J44.1 [facility] [address] [id number] [address] [place] [address] Aug, [facility] [address] [id number] [address] [place] [address] Aug, [facility] [address] [facility] [id number] [address] [place] [address] Aug, Chronic pain syndrome G89.4 [facility] [address] [facility] [id number] [address] [place] [address] Aug, [facility] [address] [facility] [id number] [address] [place] [address] Aug, [facility] [address] [facility] [id number] [address] [place] [address] Jul, Chronic pain syndrome G89.4 and Anxiety F41.9 [facility] [id number] [place] [address] Jul, [facility] [address] [id number] [address] [place] [address] Jun, Bilateral low back pain with out sciatica M54.5 ; Chronic pain syndrome G89.4 ; Anxiety F41.9 ; History of long-term use of multiple prescription drugs Z92.29 ; Type 2 diabetes mellitus with complication E11.8 ; Long-term use of high-risk medication Z79.899 ; Mixed hyperlipidemia E78.2 and Essential hypertension I10 [facility] [address] [facility] [id number] [address] [place] [phone] Jun, [facility] [address] [facility] [id number] [address] [place] [address] Jun, [facility] [address] [id number] [address] [place] [phone] May, [facility] [address] [facility] [id number] [address] [place] [address] Apr, [facility] [address] [facility] [id number] [address] [place] [address] Mar, [facility] [address] [facility] [id number] [address] [place] [address] Mar, Bilateral low back pain with out sciatica M54.5 ; History of long- term use of multiple prescription drugs Z92.29 ; Anxiety F41.9 ; Chronic pain syndrome G89.4 ; Type 2 diabetes mellitus with complication E11.8 ; Long-term use of high-risk medication Z79.899 and Mixed hyperlipidemia E78.2 [facility] [address] [facility] [id number] [address] [place] [address] Mar, [facility] [address] [id number] [address] [place] [address] Mar, Chronic pain syndrome G89.4 [facility] [address] [id number] [address] [place] [phone] Mar, [facility] [address] [id number] [address] [place] [phone] Feb, [facility] [address] [id number] [address] [place] [address] Feb, [facility] [address] [facility] [id number] [address] [place] [phone] Feb, [facility] [address] [id number] [address] [place] [phone] Feb, [facility] [address] [id number] [address] [place] [address] Jan, [facility] [address] [id number] [address] [place] [address] Jan, [facility] [address] [id number] [address] [place] [phone] Dec, [facility] [address] [id number] [address] [place] [address] Dec, Lumbago 724.2 ; Diabetes thony litus without mention of complication, type II or unspecified type, not stated as uncontrolled 250.00 ; Essential hypertension, benign 401.1 ; Anxiety state, unspecified 300.00 ; Chronic pain 338.29 ; COPD with acute exacerbation 491.21 ; Tobacco abuse 305.1 ; Depression 311 and Hyperlipidemia 272.4 [facility] [address] [id number] [address] [place] [address] Dec, [facility] [address] [id number] [address] [place] [address] Nov, Lumbago 724.2 ; Diabetes thony litus without mention of complication, type II or unspecified type, not stated as uncontrolled 250.00 ; Essential hypertension, benign 401.1 ; Anxiety state, unspecified 300.00 ; Chronic pain 338.29 ; COPD with acute exacerbation 491.21 ; Tobacco abuse 305.1 and Depression 311 [facility] [address] [id number] [address] [place] [phone] Nov, [facility] [address] [id number] [address] [place] [address] Nov, [facility] [address] [id number] [address] [place] [address] Nov, [facility] [address] [id number] [address] [place] [address] October, [facility] [address] [id number] [address] [place] [address] October, [facility] [address] [id number] [address] [place] [address] October, [facility] [address] [id number] [address] [place] [phone] October, [facility] [address] [id number] [address] [place] [address] October, [facility] [address] [id number] [address] [place] [phone] Sep, [facility] [address] [id number] [address] [place] [address] Sep, [facility] [address] [id number] [address] [place] [phone] Sep, [facility] [address] [id number] [facility] [place] [address] 23 Aug, 2014 [facility] [address] [id number] [address] [place] [address], [place] [address] 23 Aug, 2014 [facility] [address] [id number] [address] [place] [address], [place] [address] 20 Aug, 2014 [facility] [address] [id number] [address] [place] [address], [place] [address] 20 Aug, 2014 [facility] [address] [id number] [address] [place] [address], [place] [address] 19 Aug, 2014 [facility] [address] [id number] [address] [place] [address], [place] [address] 19 Aug, 2014 [facility] [address] [id number] [address] [place] [address], [place] [address] 16 Aug, 2014 [facility] [address] [id number] [address] [place] [address], [place] [address] 16 Aug, 2014 [facility] [address] [id number] [address] [place] [address], [place] [address] 16 Aug, 2014 [facility] [address] [id number] [address] [place] [address], [place] [address] 16 Aug, 2014 [facility] [address] [id number] [address] [place] [address], [place] [address] 13 Aug, 2014 [facility] [address] [id number] [address] [place] [address], [place] [address] 13 Aug, 2014 [facility] [address] [id number] [address] [place] [address], [place] [address] 24 Jul, 2014 [facility] [address] [id number] [address] [place] [address], [place] [address] 23 Jul, 2014 [facility] [address] [id number] [address] [place] [address], [place] [address] 23 Jul, 2014 [facility] [address] [id number] [address] [place] [address], [place] [address] Jul, [facility] [address] [id number] [address] [place] [address], [place] [address] Jul, [facility] [address] [id number] [address] [place] [address], [place] [address] Jul, [facility] [address] [id number] [address] [place] [address], [place] [address] Jul, [facility] [address] [id number] [address] [place] [address], [place] [address] Jun, [facility] [address] [id number] [address] [place] [address], [place] [address] Jun, [facility] [address] [id number] [address] [place] [address], [place] [address] Jun, [facility] [address] [id number] [address] [place] [address], [place] [address] Jun, [facility] [address] [id number] [address] [place] [address], [place] [address] Jun, [facility] [address] [id number] [address] [place] [address], [place] [address] Jun, [facility] [address] [id number] [address] [place] [address], [place] [address] Jun, [facility] [address] [id number] [address] [place] [address], [place] [address] Jun, [facility] [address] [id number] [address] [place] [address], [place] [address] Jun, [facility] [address] [id number] [address] [place] [address], [place] [address] May, [facility] [address] [id number] [address] [place] [address], [place] [address] May, [facility] [address] [id number] [address] [place] [address], [place] [address] May, [facility] [address] [id number] [address] [place] [address], [place] [address] 30 May, 2014 [facility] [address] [id number] [address] [place] [address], [place] [address] 17 May, 2014 [facility] [address] [id number] [address] [place] [address], [place] [address] 15 May, 2014 [facility] [address] [id number] [address] [place] [address], [place] [address] 15 May, 2014 [facility] [address] [id number] [address] [place] [address], [place] [address] 12 May, 2014 [facility] [address] [id number] [address] [place] [address], [place] [address] May, [facility] [address] [id number] [address] [place] [address], [place] [address] May, [facility] [address] [id number] [address] [place] [address], [place] [address] May, [facility] [address] [id number] [address] [place] [address], [place] [address] Apr, [facility] [address] [id number] [address] [place] [address], [place] [address] Apr, [facility] [address] [id number] [address] [place] [address], [place] [address] Apr, [facility] [address] [id number] [address] [place] [address], [place] [address] Apr, [facility] [address] [id number] [address] [place] [address], [place] [address] Mar, [facility] [address] [id number] [address] [place] [address], [place] [address] 29 Mar, 2014 [facility] [address] [id number] [address] [place] [address], [place] [address] 2014 [facility] [address] [id number] [address] [place] [address], [place] [address] 2014 [facility] [address] [id number] [address] [place] [address], [place] [address] 08 Mar, 2014 [facility] [address] [id number] [address] [place] [address], [place] [address] 08 Mar, 2014 [facility] [address] [id number] [address] [place] [address], [place] [address] 29 Feb, 2014 [facility] [address] [id number] [address] [place] [address], [place] [address] 29 Feb, 2014 [facility] [address] [id number] [address] [place] [address], [place] [address] 17 Feb, 2014 [facility] [address] [id number] [address] [place] [address], [place] [address] 16 Feb, 2014 [facility] [address] [id number] [address] [place] [address], [place] [address] 16 Feb, 2014 [facility] [address] [id number] [address] [place] [address], [place] [address] Feb, [facility] [address] [id number] [address] [place] [address], [place] [address] Feb, [facility] [address] [id number] [address] [place] [address], [place] [address] Jan, [facility] [address] [id number] [address] [place] [address], [place] [address] Jan, [facility] [address] [id number] [address] [place] [address], [place] [address] Jan, [facility] [address] [id number] [address] [place] [address], [place] [address] Jan, [facility] [address] [id number] [address] [place] [address], [place] [address] Dec, [facility] [address] [id number] [address] [place] [address], [place] [address] Dec, [facility] [address] [id number] [address] [place] [address] Dec, [facility] [address] [facility] [id number] [address] [address] Dec, IMMUNIZATIONS No Known Immunizations SOCIAL HISTORY Never Assessed REASON FOR VISIT EMR-[place] PLAN OF CARE VITAL SIGNS MEDICATIONS Unknown [...]
--- OUTSIDE RECORDS SUMMARY | 2019-10-29 01:19 | XMS REPORT ---
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 Name Role Phone ANGE REYNOSO Unavailable PROBLEMS Type Condition ICD9-CM Code CDB11-FP Code Onset Dates Condition S tatus SNOMED Code Problem Bilateral low back pain without sciatica M54.5 Active 277018830 Problem Anxiety F41.9 Active 55594941 Problem Chronic pain syndrome G89.4 Active 415093893 Problem Thrush B37.0 Active 69828408 Problem Type 2 diabetes mellitus with complication E11.8 Active 80089513 Problem COPD with acute exacerbation J44.1 A ctive 218529825 Problem History of long-term use of multiple prescription drugs Z92.29 Active 001083109 Problem Essential hypertension I10 Active 06583561 Problem Mixed hyperlipidemia E78.2 Active 229394484 Problem Long-term use of high-risk medication Z79.899 Active 592271900 Problem Chronic obstructive pulmonary disease, unspecified COPD ty pe J44.9 Active [id number] ALLERGIES No Information ENCOUNTERS Encounter Location Date Diagnosis [facility] [address] [id number] [address] [place] [phone] Nov, [facility] [address] [id number] [address] [place] [phone] October, Scabies B86 [facility] [address] [id number] [address] [place] [id number] October, Acute upper respiratory infe ction, unspecified J06.9 [facility] [address] [id number] [address] [place] [phone] October, Dysuria R30.0 and Coughing R 05 [facility] [id number] [place] [phone] Aug, [facility] [address] [id number] [address] [place] [phone] Jun, [facility] [address] [id number] [address] [place] [phone] Jun, [facility] [address] [id number] [address] [place] [phone] Jun, [facility] [address] [id number] [address] [place] [phone] May, [facility] [address] [id number] [address] [place] [phone] May, [facility] [address] [facility] [place] [id number] [address] [place] [phone] May, [facility] [address] [facility] [place] [id number] [address] [place] [id number] Apr, Type 2 diabetes mellitus wit h complication E11.8 ; Chronic pain syndrome G89.4 ; Bilateral low back pain without sciatica M54.5 ; Essential hypertension I10 ; Anxiety F41.9 ; COPD with acute exacerbation J44.1 ; Pain of left hand M79.642 and Pain in right hand M79.641 [facility] [address] [id number] [address] [place] [id number] Apr, [facility] [address] [id number] [address] [place] [id number] Mar, [facility] [address] [id number] [address] [place] [phone] Mar, [facility] [address] [id number] [address] [place] [phone] Mar, [facility] [address] [facility] [place] [id number] [address] [place] [phone] Feb, [facility] [address] [facility] [place] [id number] [address] [place] [id number] Feb, [facility] [address] [id number] [address] [place] [phone] Jan, Type 2 diabetes mellitus wit h complication E11.8 ; Chronic pain syndrome G89.4 ; Bilateral low back pain without sciatica M54.5 ; Essential hypertension I10 ; Anxiety F41.9 ; Chronic obstructive pulmonary disease, unspecified COPD type J44.9 and Thrush B37.0 [facility] [address] [id number] [address] [place] [phone] Jan, [facility] [address] [id number] [address] [place] [phone] Dec, [facility] [address] [id number] [address] [place] [phone] Dec, [facility] [address] [id number] [address] [place] [id number] Nov, [facility] [address] [id number] [address] [place] [phone] Nov, [facility] [address] [id number] [address] [place] [phone] Nov, [facility] [address] [facility] [place] [id number] [address] [place] [phone] Nov, Chest pain, unspecified type R07.9 and COPD exacerbation J44.1 [facility] [address] [id number] [address] [place] [phone] October, [facility] [address] [facility] [place] [id number] [address] [place] [phone] Sep, [facility] [address] [id number] [address] [place] [phone] Sep, Type 2 diabetes mellitus wit h complication E11.8 ; Chronic pain syndrome G89.4 ; Bilateral low back pain without sciatica M54.5 ; Essential hypertension I10 ; Anxiety F41.9 and COPD exacerbation J44.1 [facility] [address] [facility] [place] [id number] [address] [place] [phone] Aug, [facility] [address] [facility] [place] [id number] [address] [place] [phone] Aug, [facility] [address] [facility] [place] [id number] [address] [place] [phone] Aug, Chronic pain syndrome G89.4 [facility] [address] [facility] [place] [id number] [address] [place] [phone] Aug, [facility] [id number] [place] [phone] Aug, [facility] [id number] [place] [phone] Jul, Chronic pain syndrome G89.4 and Anxiety F41.9 [facility] [address] [id number] [address] [place] [phone] Jul, [facility] [address] [phone] Jun, Bilateral low back pain with out sciatica M54.5 ; Chronic pain syndrome G89.4 ; Anxiety F41.9 ; History of long-term use of multiple prescription drugs Z92.29 ; Type 2 diabetes mellitus with complication E11.8 ; Long-term use of high-risk medication Z79.899 ; Mixed hyperlipidemia E78.2 and Essential hypertension I10 [facility] [address] [id number] [address] [place] [phone] Jun, [facility] [address] [id number] [address] [place] [phone] Jun, [facility] [address] [facility] [place] [id number] [address] [place] [phone] May, [facility] [address] [id number] [address] [place] [phone] Apr, [facility] [address] [id number] [address] [place] [phone] Mar, [facility] [address] [id number] [address] [place] [id number] Mar, Bilateral low back pain with out sciatica M54.5 ; History of long- term use of multiple prescription drugs Z92.29 ; Anxiety F41.9 ; Chronic pain syndrome G89.4 ; Type 2 diabetes mellitus with complication E11.8 ; Long-term use of high-risk medication Z79.899 and Mixed hyperlipidemia E78.2 [facility] [address] [id number] [address] [place] [phone] Mar, [facility] [address] [id number] [address] [place] [phone] Mar, Chronic pain syndrome G89.4 [facility] [address] [id number] [address] [place] [phone] Mar, [facility] [address] [id number] [address] [place] [phone] Feb, [facility] [address] [id number] [address] [place] [phone] Feb, [facility] [address] [id number] [address] [place] [phone] Feb, [facility] [address] [id number] [address] [place] [phone] Feb, [facility] [address] [id number] [address] [place] [id number] Jan, [facility] [address] [facility] [place] [id number] [address] [place] [phone] Jan, [facility] [address] [id number] [address] [place] [phone] Dec, [facility] [address] [id number] [address] [place] [phone] Dec, Lumbago 724.2 ; Diabetes thony litus without mention of complication, type II or unspecified type, not stated as uncontrolled 250.00 ; Essential hypertension, benign 401.1 ; Anxiety state, unspecified 300.00 ; Chronic pain 338.29 ; COPD with acute exacerbation 491.21 ; Tobacco abuse 305.1 ; Depression 311 and Hyperlipidemia 272.4 [facility] [address] [id number] [address] [place] [phone] Dec, [facility] [address] [facility] [place] [facility] [id number] [address] [place] [id number] Nov, Lumbago 724.2 ; Diabetes thony litus without mention of complication, type II or unspecified type, not stated as uncontrolled 250.00 ; Essential hypertension, benign 401.1 ; Anxiety state, unspecified 300.00 ; Chronic pain 338.29 ; COPD with acute exacerbation 491.21 ; Tobacco abuse 305.1 and Depression 311 [facility] [address] [id number] [address] [place] [phone] Nov, [facility] [address] [id number] [address] [place] [phone] Nov, [facility] [address] [id number] [address] [place] [phone] Nov, [facility] [address] [id number] [address] [place] [phone] October, [facility] [address] [id number] [address] [place] [phone] October, [facility] [address] [id number] [address] [place] [phone] October, [facility] [address] [id number] [address] [place] [phone] October, [facility] [address] [id number] [address] [place] [phone] October, [facility] [address] [id number] [address] [place] [phone] Sep, [facility] [address] [facility] [place] [id number] [address] [place] [phone] Sep, [facility] [address] [id number] [address] [place] [address], [place] [id number] 13 Sep, 2014 [facility] [address] [id number] [address] [place] [address], [place] [phone] 23 Aug, 2014 [facility] [address] [id number] [address] [place] [address], [place] [address] 23 Aug, 2014 [facility] [address] [id number] [address] [place] [address], [place] [id number] 20 Aug, 2014 [facility] [address] [id number] [address] [place] [address], [place] [address] 20 Aug, 2014 [facility] [address] [id number] [address] [place] [address], [place] [phone] 19 Aug, 2014 [facility] [address] [id number] [address] [place] [address], [place] [id number] 19 Aug, 2014 [facility] [address] [id number] [address] [place] [address], [place] [address] 16 Aug, 2014 [facility] [address] [id number] [address] [place] [address], [place] [id number] 16 Aug, 2014 [facility] [address] [id number] [address] [place] [address], [place] [id number] 16 Aug, 2014 [facility] [address] [id number] [address] [place] [address], [place] [id number] 16 Aug, 2014 [facility] [address] [id number] [address] [place] [address], [place] [id number] 13 Aug, 2014 [facility] [address] [id number] [address] [place] [address], [place] [id number] 13 Aug, 2014 [facility] [address] [id number] [address] [place] [address], [place] [address] 24 Jul, 2014 [facility] [address] [id number] [address] [place] [address], [place] [id number] 23 Jul, 2014 [facility] [address] [id number] [address] [place] [address], [place] [phone] Jul, [facility] [address] [id number] [address] [place] [address], [place] [id number] Jul, [facility] [address] [id number] [address] [place] [address], [place] [address] Jul, [facility] [address] [id number] [address] [place] [address], [place] [address] Jul, [facility] [address] [id number] [address] [place] [address], [place] [address] Jul, [facility] [address] [id number] [address] [place] [address], [place] [address] Jun, [facility] [address] [id number] [address] [place] [address], [place] [address] Jun, [facility] [address] [id number] [address] [place] [address], [place] [address] Jun, [facility] [address] [id number] [address] [place] [address], [place] [address] Jun, [facility] [address] [id number] [address] [place] [address], [place] [address] Jun, [facility] [address] [id number] [address] [place] [address], [place] [address] Jun, [facility] [address] [id number] [address] [place] [address], [place] [address] Jun, [facility] [address] [id number] [address] [place] [address], [place] [address] Jun, [facility] [address] [id number] [address] [place] [address], [place] [address] Jun, [facility] [address] [id number] [address] [place] [address], [place] [address] May, [facility] [address] [id number] [address] [place] [address], [place] [address] May, [facility] [address] [id number] [address] [place] [address], [place] [address] 30 May, 2014 [facility] [address] [id number] [address] [place] [address], [place] [address] 30 May, 2014 [facility] [address] [id number] [address] [place] [address], [place] [address] 17 May, 2014 [facility] [address] [id number] [address] [place] [address], [place] [address] 15 May, 2014 [facility] [address] [id number] [address] [place] [address], [place] [address] 15 May, 2014 [facility] [address] [id number] [address] [place] [address], [place] [address] 12 May, 2014 [facility] [address] [id number] [address] [place] [address], [place] [address] May, [facility] [address] [id number] [address] [place] [address], [place] [address] May, [facility] [address] [id number] [address] [place] [address], [place] [address] May, [facility] [address] [id number] [address] [place] [address], [place] [address] Apr, [facility] [address] [id number] [address] [place] [address], [place] [address] Apr, [facility] [address] [id number] [address] [place] [address], [place] [address] Apr, [facility] [address] [id number] [address] [place] [address], [place] [address] Apr, [facility] [address] [id number] [address] [place] [address], [place] [address] 29 Mar, 2014 [facility] [address] [id number] [address] [place] [address], [place] [address] 29 Mar, 2014 [facility] [address] [id number] [address] [place] [address], [place] [address] Mar, [facility] [address] [id number] [address] [place] [address], [place] [address] 2014 [facility] [address] [id number] [address] [place] [address], [place] [address] Mar, [facility] [address] [id number] [address] [place] [address], [place] [address] Mar, [facility] [address] [id number] [address] [place] [address], [place] [address] 29 Feb, 2014 [facility] [address] [id number] [address] [place] [address], [place] [address] 29 Feb, 2014 [facility] [address] [id number] [address] [place] [address], [place] [address] 17 Feb, 2014 [facility] [address] [id number] [address] [place] [address], [place] [address] 16 Feb, 2014 [facility] [address] [id number] [address] [place] [address], [place] [address] 16 Feb, 2014 [facility] [address] [id number] [address] [place] [address], [place] [address] Feb, [facility] [address] [id number] [address] [place] [address], [place] [address] 03 Feb, 2014 [facility] [address] [id number] [address] [place] [address], [place] [address] Jan, [facility] [address] [id number] [address] [place] [address], [place] [address] Jan, [facility] [address] [id number] [address] [place] [address], [place] [address] Jan, [facility] [address] [id number] [address] [place] [address], [place] [address] Jan, [facility] [address] [id number] [address] [place] [address], [place] [address] Dec, [facility] [address] [id number] [place] [address] Dec, [facility] [address] [facility] [id number] [address] [place] [id number] Dec, [facility] [address] [facility] [id number] [address] [place] [id number] Dec, IMMUNIZATIONS No Known Immunizations SOCIAL HISTORY [...]
--- OUTSIDE RECORDS SUMMARY | 2019-10-29 01:19 | XMS REPORT ---
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 Name Role Phone Migration, Doctor Unavailable Unavailable PROBLEMS Type Condition ICD9-CM Code BER73-AX Code Onset Dates Condition S tatus SNOMED Code Problem Bilateral low back pain without sciatica M54.5 Active 506076349 Problem Anxiety F41.9 Active 94729280 Problem Chronic pain syndrome G89.4 Active 966595935 Problem Thrush B37.0 Active 06056983 Problem Type 2 diabetes mellitus with complication E11.8 Active 78143690 Problem COPD with acute exacerbation J44.1 A ctive 294646829 Problem History of long-term use of multiple prescription drugs Z92.29 Active 252487114 Problem Essential hypertension I10 Active 18112549 Problem Mixed hyperlipidemia E78.2 Active 403996865 Problem Long-term use of high-risk medication Z79.899 Active 599843024 Problem Chronic obstructive pulmonary disease, unspecified COPD ty pe J44.9 Active [id number] ALLERGIES No Information ENCOUNTERS Encounter Location Date Diagnosis [facility] [address] [address] Nov, [facility] [address] [address] October, Scabies B86 [facility] [address] [id number] [address] [place] [phone] October, Acute upper respiratory infe ction, unspecified J06.9 [facility] [address] [address] October, Dysuria R30.0 and Coughing R 05 [facility] [address] [id number] [address] [place] [phone] Aug, [facility] [address] [address] Jun, [facility] [address] [id number] [address] [place] [phone] Jun, [facility] [address] [id number] [address] [place] [phone] Jun, [facility] [address] [id number] [address] [place] [phone] May, [facility] [address] [id number] [address] [place] [phone] May, [facility] [address] [id number] [address] [place] [phone] May, [facility] [address] [facility] [id number] [address] [place] [phone] Apr, Type 2 diabetes mellitus wit h complication E11.8 ; Chronic pain syndrome G89.4 ; Bilateral low back pain without sciatica M54.5 ; Essential hypertension I10 ; Anxiety F41.9 ; COPD with acute exacerbation J44.1 ; Pain of left hand M79.642 and Pain in right hand M79.641 [facility] [address] [id number] [address] [place] [phone] Apr, [facility] [address] [id number] [address] [place] [phone] Mar, [facility] [address] [id number] [address] [place] [phone] Mar, [facility] [address] [id number] [address] [place] [phone] Mar, [facility] [address] [id number] [address] [place] [phone] Feb, [facility] [address] [id number] [address] [place] [phone] Feb, [facility] [address] [facility] [address] [facility] [id number] [address] [place] [phone] Jan, Type 2 diabetes mellitus wit h complication E11.8 ; Chronic pain syndrome G89.4 ; Bilateral low back pain without sciatica M54.5 ; Essential hypertension I10 ; Anxiety F41.9 ; Chronic obstructive pulmonary disease, unspecified COPD type J44.9 and Thrush B37.0 [facility] [address] [id number] [address] [place] [phone] Jan, [facility] [address] [id number] [address] [place] [phone] Dec, [facility] [address] [id number] [address] [place] [phone] Dec, [facility] [address] [id number] [address] [place] [phone] Nov, [facility] [address] [id number] [address] [place] [phone] Nov, [facility] [address] [id number] [address] [place] [phone] Nov, [facility] [address] [id number] [address] [place] [phone] Nov, Chest pain, unspecified type R07.9 and COPD exacerbation J44.1 [facility] [address] [id number] [address] [place] [phone] October, [facility] [address] [id number] [address] [place] [phone] Sep, [facility] [address] [id number] [address] [place] [phone] Sep, Type 2 diabetes mellitus wit h complication E11.8 ; Chronic pain syndrome G89.4 ; Bilateral low back pain without sciatica M54.5 ; Essential hypertension I10 ; Anxiety F41.9 and COPD exacerbation J44.1 [facility] [address] [id number] [address] [place] [phone] Aug, [facility] [address] [id number] [address] [place] [phone] Aug, [facility] [address] [facility] [address] [facility] [id number] [address] [place] [phone] Aug, Chronic pain syndrome G89.4 [facility] [address] [address] [facility] [id number] [address] [place] [phone] Aug, [facility] [address] [address] [facility] [id number] [address] [place] [phone] Aug, [facility] [address] [address] [facility] [id number] [address] [place] [phone] Jul, Chronic pain syndrome G89.4 and Anxiety F41.9 [facility] [id number] [place] [phone] Jul, [facility] [address] [id number] [address] [place] [phone] Jun, Bilateral low back pain with out sciatica M54.5 ; Chronic pain syndrome G89.4 ; Anxiety F41.9 ; History of long-term use of multiple prescription drugs Z92.29 ; Type 2 diabetes mellitus with complication E11.8 ; Long-term use of high-risk medication Z79.899 ; Mixed hyperlipidemia E78.2 and Essential hypertension I10 [facility] [address] [address] [facility] [id number] [address] [place] [phone] Jun, [facility] [address] [facility] [id number] [address] [place] [phone] Jun, [facility] [address] [id number] [address] [place] [phone] May, [facility] [address] [address] [facility] [id number] [address] [place] [phone] Apr, [facility] [address] [facility] [id number] [address] [place] [phone] Mar, [facility] [address] [address] [facility] [id number] [address] [place] [phone] Mar, Bilateral low back pain with out sciatica M54.5 ; History of long- term use of multiple prescription drugs Z92.29 ; Anxiety F41.9 ; Chronic pain syndrome G89.4 ; Type 2 diabetes mellitus with complication E11.8 ; Long-term use of high-risk medication Z79.899 and Mixed hyperlipidemia E78.2 [facility] [address] [facility] [id number] [address] [place] [phone] Mar, [facility] [address] [id number] [address] [place] [phone] Mar, Chronic pain syndrome G89.4 [facility] [address] [id number] [address] [place] [phone] Mar, [facility] [address] [id number] [address] [place] [id number] Feb, [facility] [address] [id number] [address] [place] [phone] Feb, [facility] [address] [address] [facility] [id number] [address] [place] [phone] Feb, [facility] [address] [id number] [address] [place] [phone] Feb, [facility] [address] [id number] [address] [place] [phone] Jan, [facility] [address] [id number] [address] [place] [phone] Jan, [facility] [address] [id number] [address] [place] [phone] Dec, [facility] [address] [id number] [address] [place] [phone] Dec, Lumbago 724.2 ; Diabetes thony litus without mention of complication, type II or unspecified type, not stated as uncontrolled 250.00 ; Essential hypertension, benign 401.1 ; Anxiety state, unspecified 300.00 ; Chronic pain 338.29 ; COPD with acute exacerbation 491.21 ; Tobacco abuse 305.1 ; Depression 311 and Hyperlipidemia 272.4 [facility] [address] [id number] [address] [place] [phone] Dec, [facility] [address] [id number] [address] [place] [phone] Nov, Lumbago 724.2 ; Diabetes thony litus without mention of complication, type II or unspecified type, not stated as uncontrolled 250.00 ; Essential hypertension, benign 401.1 ; Anxiety state, unspecified 300.00 ; Chronic pain 338.29 ; COPD with acute exacerbation 491.21 ; Tobacco abuse 305.1 and Depression 311 [facility] [address] [id number] [address] [place] [phone] Nov, [facility] [address] [id number] [address] [place] [phone] Nov, [facility] [address] [id number] [address] [place] [phone] Nov, [facility] [address] [id number] [address] [place] [phone] October, [facility] [address] [id number] [address] [place] [phone] October, [facility] [address] [id number] [address] [place] [phone] October, [facility] [address] [id number] [address] [place] [phone] October, [facility] [address] [id number] [address] [place] [phone] October, [facility] [address] [id number] [address] [place] [phone] Sep, [facility] [address] [id number] [address] [place] [phone] Sep, [facility] [address] [id number] [address] [place] [phone] Sep, [facility] [address] [id number] [facility] [place] [address] 23 Aug, 2014 [facility] [address] [id number] [address] [place] [address], [place] [address] 23 Aug, 2014 [facility] [address] [id number] [address] [place] [address], [place] [address] 20 Aug, 2014 [facility] [address] [id number] [address] [place] [address], [place] [address] 20 Aug, 2014 [facility] [address] [id number] [address] [place] [address], [place] [address] 19 Aug, 2014 [facility] [address] [id number] [address] [place] [address], [place] [address] 19 Aug, 2014 [facility] [address] [id number] [address] [place] [address], [place] [address] 16 Aug, 2014 [facility] [address] [id number] [address] [place] [address], [place] [address] 16 Aug, 2014 [facility] [address] [id number] [address] [place] [address], [place] [address] 16 Aug, 2014 [facility] [address] [id number] [address] [place] [address], [place] [address] 16 Aug, 2014 [facility] [address] [id number] [address] [place] [address], [place] [address] 13 Aug, 2014 [facility] [address] [id number] [address] [place] [address], [place] [address] 13 Aug, 2014 [facility] [address] [id number] [address] [place] [address], [place] [address] 24 Jul, 2014 [facility] [address] [id number] [address] [place] [address], [place] [address] 23 Jul, 2014 [facility] [address] [id number] [address] [place] [address], [place] [address] 23 Jul, 2014 [facility] [address] [id number] [address] [place] [address], [place] [address] Jul, [facility] [address] [id number] [address] [place] [address], [place] [address] Jul, [facility] [address] [id number] [address] [place] [address], [place] [address] Jul, [facility] [address] [id number] [address] [place] [address], [place] [address] Jul, [facility] [address] [id number] [address] [place] [address], [place] [address] Jun, [facility] [address] [id number] [address] [place] [address], [place] [address] Jun, [facility] [address] [id number] [address] [place] [address], [place] [address] Jun, [facility] [address] [id number] [address] [place] [address], [place] [address] Jun, [facility] [address] [id number] [address] [place] [address], [place] [address] Jun, [facility] [address] [id number] [address] [place] [address], [place] [address] Jun, [facility] [address] [id number] [address] [place] [address], [place] [address] Jun, [facility] [address] [id number] [address] [place] [address], [place] [address] Jun, [facility] [address] [id number] [address] [place] [address], [place] [address] Jun, [facility] [address] [id number] [address] [place] [address], [place] [address] May, [facility] [address] [id number] [address] [place] [address], [place] [address] May, [facility] [address] [id number] [address] [place] [address], [place] [address] May, [facility] [address] [id number] [address] [place] [address], [place] [address] 30 May, 2014 [facility] [address] [id number] [address] [place] [address], [place] [address] 17 May, 2014 [facility] [address] [id number] [address] [place] [address], [place] [address] 15 May, 2014 [facility] [address] [id number] [address] [place] [address], [place] [address] 15 May, 2014 [facility] [address] [id number] [address] [place] [address], [place] [address] 12 May, 2014 [facility] [address] [id number] [address] [place] [address], [place] [address] May, [facility] [address] [id number] [address] [place] [address], [place] [address] May, [facility] [address] [id number] [address] [place] [address], [place] [address] May, [facility] [address] [id number] [address] [place] [address], [place] [address] Apr, [facility] [address] [id number] [address] [place] [address], [place] [address] Apr, [facility] [address] [id number] [address] [place] [address], [place] [address] Apr, [facility] [address] [id number] [address] [place] [address], [place] [address] Apr, [facility] [address] [id number] [address] [place] [address], [place] [address] Mar, [facility] [address] [id number] [address] [place] [address], [place] [address] 29 Mar, 2014 [facility] [address] [id number] [address] [place] [address], [place] [address] 2014 [facility] [address] [id number] [address] [place] [address], [place] [address] 2014 [facility] [address] [id number] [address] [place] [address], [place] [address] 08 Mar, 2014 [facility] [address] [id number] [address] [place] [address], [place] [address] 08 Mar, 2014 [facility] [address] [id number] [address] [place] [address], [place] [address] 29 Feb, 2014 [facility] [address] [id number] [address] [place] [address], [place] [address] 29 Feb, 2014 [facility] [address] [id number] [address] [place] [address], [place] [address] 17 Feb, 2014 [facility] [address] [id number] [address] [place] [address], [place] [address] 16 Feb, 2014 [facility] [address] [id number] [address] [place] [address], [place] [address] 16 Feb, 2014 [facility] [address] [id number] [address] [place] [address], [place] [address] Feb, [facility] [address] [id number] [address] [place] [address], [place] [address] Feb, [facility] [address] [id number] [address] [place] [address], [place] [address] Jan, [facility] [address] [id number] [address] [place] [address], [place] [address] Jan, [facility] [address] [id number] [address] [place] [address], [place] [address] Jan, [facility] [address] [id number] [address] [place] [address], [place] [address] Jan, [facility] [address] [id number] [address] [place] [address], [place] [address] Dec, [facility] [address] [id number] [address] [place] [address], [place] [address] Dec, [facility] [address] [id number] [address] [place] [phone] Dec, [facility] [address] [facility] [id number] [place] [address] Dec, IMMUNIZATIONS No Known Immunizations SOCIAL HISTORY Never Assessed REASON FOR [place] [place] VITAL SIGNS MEDICATIONS Unknown [...]
--- OUTSIDE RECORDS SUMMARY | 2019-10-29 01:19 | XMS REPORT ---
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 Name Role Phone Migration, Doctor Unavailable Unavailable PROBLEMS Type Condition ICD9-CM Code FYF84-[id number] Code Onset Dates Condition S tatus SNOMED Code Problem Bilateral low back pain without sciatica M54.5 Active 564326835 Problem Anxiety F41.9 Active 29794665 Problem Chronic pain syndrome G89.4 Active 789664350 Problem Thrush B37.0 Active 20282137 Problem Type 2 diabetes mellitus with complication E11.8 Active 01287406 Problem COPD with acute exacerbation J44.1 A ctive 795951406 Problem History of long-term use of multiple prescription drugs Z92.29 Active 897128830 Problem Essential hypertension I10 Active 65354325 Problem Mixed hyperlipidemia E78.2 Active 473040806 Problem Long-term use of high-risk medication Z79.899 Active 386391465 Problem Chronic obstructive pulmonary disease, unspecified COPD ty pe J44.9 Active [id number] ALLERGIES No Information ENCOUNTERS Encounter Location Date Diagnosis [facility] [place] [address] [address] Nov, [facility] [address] [address] October, Scabies B86 [facility] [address] [id number] [address] [place] [phone] October, Acute upper respiratory infe ction, unspecified J06.9 [facility] [address] [address] October, Dysuria R30.0 and Coughing R 05 [facility] [place] [address] [id number] [address] [place] [phone] Aug, [facility] [place] [address] [phone] Jun, [facility] [place] [address] [id number] [address] [place] [phone] Jun, [facility] [place] [address] [id number] [address] [place] [phone] Jun, [facility] [place] [address] [id number] [address] [place] [phone] May, [facility] [place] [address] [id number] [address] [place] [phone] May, [facility] [place] [address] [id number] [address] [place] [phone] May, [facility] [place] [address] [facility] [id number] [address] [place] [phone] Apr, Type 2 diabetes mellitus wit h complication E11.8 ; Chronic pain syndrome G89.4 ; Bilateral low back pain without sciatica M54.5 ; Essential hypertension I10 ; Anxiety F41.9 ; COPD with acute exacerbation J44.1 ; Pain of left hand M79.642 and Pain in right hand M79.641 [facility] [place] [address] [id number] [address] [place] [phone] Apr, [facility] [place] [address] [id number] [address] [place] [phone] Mar, [facility] [place] [address] [id number] [address] [place] [phone] Mar, [facility] [place] [address] [id number] [address] [place] [phone] Mar, [facility] [place] [address] [id number] [address] [place] [id number] Feb, [facility] [place] [address] [id number] [address] [place] [phone] Feb, [facility] [place] [address] [facility] [id number] [address] [place] [phone] Jan, Type 2 diabetes mellitus wit h complication E11.8 ; Chronic pain syndrome G89.4 ; Bilateral low back pain without sciatica M54.5 ; Essential hypertension I10 ; Anxiety F41.9 ; Chronic obstructive pulmonary disease, unspecified COPD type J44.9 and Thrush B37.0 [facility] [place] [address] [id number] [address] [place] [phone] Jan, [facility] [place] [address] [id number] [address] [place] [phone] Dec, [facility] [place] [address] [id number] [address] [place] [phone] Dec, [facility] [place] [address] [id number] [address] [place] [phone] Nov, [facility] [place] [address] [id number] [address] [place] [phone] Nov, [facility] [place] [address] [id number] [address] [place] [phone] Nov, [facility] [place] [address] [id number] [address] [place] [phone] Nov, Chest pain, unspecified type R07.9 and COPD exacerbation J44.1 [facility] [place] [address] [id number] [address] [place] [phone] October, [facility] [place] [address] [id number] [address] [place] [phone] Sep, [facility] [place] [address] [id number] [address] [place] [phone] Sep, Type 2 diabetes mellitus wit h complication E11.8 ; Chronic pain syndrome G89.4 ; Bilateral low back pain without sciatica M54.5 ; Essential hypertension I10 ; Anxiety F41.9 and COPD exacerbation J44.1 [facility] [place] [address] [id number] [address] [place] [phone] Aug, [facility] [place] [address] [id number] [address] [place] [phone] Aug, [facility] [place] [address] [facility] [id number] [address] [place] [phone] Aug, Chronic pain syndrome G89.4 [facility] [place] [address] [facility] [id number] [address] [place] [phone] Aug, [facility] [place] [address] [facility] [id number] [address] [place] [phone] Aug, [facility] [place] [address] [facility] [id number] [address] [place] [phone] Jul, Chronic pain syndrome G89.4 and Anxiety F41.9 [facility] [place] [id number] [place] [phone] Jul, [facility] [place] [address] [id number] [address] [place] [phone] Jun, Bilateral low back pain with out sciatica M54.5 ; Chronic pain syndrome G89.4 ; Anxiety F41.9 ; History of long-term use of multiple prescription drugs Z92.29 ; Type 2 diabetes mellitus with complication E11.8 ; Long-term use of high-risk medication Z79.899 ; Mixed hyperlipidemia E78.2 and Essential hypertension I10 [facility] [place] [address] [facility] [id number] [address] [place] [phone] Jun, [facility] [place] [address] [facility] [id number] [address] [place] [phone] Jun, [facility] [place] [address] [id number] [address] [place] [phone] May, [facility] [place] [address] [facility] [id number] [address] [place] [phone] Apr, [facility] [place] [address] [facility] [id number] [address] [place] [phone] Mar, [facility] [place] [address] [facility] [id number] [address] [place] [phone] Mar, Bilateral low back pain with out sciatica M54.5 ; History of long- term use of multiple prescription drugs Z92.29 ; Anxiety F41.9 ; Chronic pain syndrome G89.4 ; Type 2 diabetes mellitus with complication E11.8 ; Long-term use of high-risk medication Z79.899 and Mixed hyperlipidemia E78.2 [facility] [place] [address] [facility] [id number] [address] [place] [phone] Mar, [facility] [place] [address] [id number] [address] [place] [phone] Mar, Chronic pain syndrome G89.4 [facility] [place] [address] [id number] [address] [place] [phone] Mar, [facility] [place] [address] [id number] [address] [place] [phone] Feb, [facility] [place] [address] [id number] [address] [place] [phone] Feb, [facility] [place] [address] [facility] [id number] [address] [place] [id number] Feb, [facility] [place] [address] [id number] [address] [place] [phone] Feb, [facility] [place] [address] [id number] [address] [place] [phone] Jan, [facility] [place] [address] [id number] [address] [place] [phone] Jan, [facility] [place] [address] [id number] [address] [place] [phone] Dec, [facility] [place] [address] [id number] [address] [place] [phone] Dec, Lumbago 724.2 ; Diabetes thony litus without mention of complication, type II or unspecified type, not stated as uncontrolled 250.00 ; Essential hypertension, benign 401.1 ; Anxiety state, unspecified 300.00 ; Chronic pain 338.29 ; COPD with acute exacerbation 491.21 ; Tobacco abuse 305.1 ; Depression 311 and Hyperlipidemia 272.4 [facility] [place] [address] [id number] [address] [place] [phone] Dec, [facility] [place] [address] [id number] [address] [place] [phone] Nov, Lumbago 724.2 ; Diabetes thony litus without mention of complication, type II or unspecified type, not stated as uncontrolled 250.00 ; Essential hypertension, benign 401.1 ; Anxiety state, unspecified 300.00 ; Chronic pain 338.29 ; COPD with acute exacerbation 491.21 ; Tobacco abuse 305.1 and Depression 311 [facility] [place] [address] [id number] [address] [place] [phone] Nov, [facility] [place] [address] [id number] [address] [place] [phone] Nov, [facility] [place] [address] [id number] [address] [place] [phone] Nov, [facility] [place] [address] [id number] [address] [place] [phone] October, [facility] [place] [address] [id number] [address] [place] [phone] October, [facility] [place] [address] [id number] [address] [place] [phone] October, [facility] [place] [address] [id number] [address] [place] [phone] October, [facility] [place] [address] [id number] [address] [place] [phone] October, [facility] [place] [address] [id number] [address] [place] [phone] Sep, [facility] [place] [address] [id number] [address] [place] [phone] Sep, [facility] [place] [address] [id number] [address] [place] [phone] Sep, [facility] [address] [id number] [facility] [place] [address] 23 Aug, 2014 [facility] [address] [id number] [address] [place] [address], [place] [address] 23 Aug, 2014 [facility] [address] [id number] [address] [place] [address], [place] [address] 20 Aug, 2014 [facility] [address] [id number] [address] [place] [address], [place] [address] 20 Aug, 2014 [facility] [address] [id number] [address] [place] [address], [place] [address] 19 Aug, 2014 [facility] [address] [id number] [address] [place] [address], [place] [address] 19 Aug, 2014 [facility] [address] [id number] [address] [place] [address], [place] [address] 16 Aug, 2014 [facility] [address] [id number] [address] [place] [address], [place] [address] 16 Aug, 2014 [facility] [address] [id number] [address] [place] [address], [place] [address] 16 Aug, 2014 [facility] [address] [id number] [address] [place] [address], [place] [address] 16 Aug, 2014 [facility] [address] [id number] [address] [place] [address], [place] [address] 13 Aug, 2014 [facility] [address] [id number] [address] [place] [address], [place] [address] 13 Aug, 2014 [facility] [address] [id number] [address] [place] [address], [place] [address] 24 Jul, 2014 [facility] [address] [id number] [address] [place] [address], [place] [address] 23 Jul, 2014 [facility] [address] [id number] [address] [place] [address], [place] [address] 23 Jul, 2014 [facility] [address] [id number] [address] [place] [address], [place] [address] Jul, [facility] [address] [id number] [address] [place] [address], [place] [address] Jul, [facility] [address] [id number] [address] [place] [address], [place] [address] Jul, [facility] [address] [id number] [address] [place] [address], [place] [address] Jul, [facility] [address] [id number] [address] [place] [address], [place] [address] Jun, [facility] [address] [id number] [address] [place] [address], [place] [address] Jun, [facility] [address] [id number] [address] [place] [address], [place] [address] Jun, [facility] [address] [id number] [address] [place] [address], [place] [address] Jun, [facility] [address] [id number] [address] [place] [address], [place] [address] Jun, [facility] [address] [id number] [address] [place] [address], [place] [address] Jun, [facility] [address] [id number] [address] [place] [address], [place] [address] Jun, [facility] [address] [id number] [address] [place] [address], [place] [address] Jun, [facility] [address] [id number] [address] [place] [address], [place] [address] Jun, [facility] [address] [id number] [address] [place] [address], [place] [address] May, [facility] [address] [id number] [address] [place] [address], [place] [address] May, [facility] [address] [id number] [address] [place] [address], [place] [address] May, [facility] [address] [id number] [address] [place] [address], [place] [address] 30 May, 2014 [facility] [address] [id number] [address] [place] [address], [place] [address] 17 May, 2014 [facility] [address] [id number] [address] [place] [address], [place] [address] 15 May, 2014 [facility] [address] [id number] [address] [place] [address], [place] [address] 15 May, 2014 [facility] [address] [id number] [address] [place] [address], [place] [address] 12 May, 2014 [facility] [address] [id number] [address] [place] [address], [place] [address] May, [facility] [address] [id number] [address] [place] [address], [place] [address] May, [facility] [address] [id number] [address] [place] [address], [place] [address] May, [facility] [address] [id number] [address] [place] [address], [place] [address] Apr, [facility] [address] [id number] [address] [place] [address], [place] [address] Apr, [facility] [address] [id number] [address] [place] [address], [place] [address] Apr, [facility] [address] [id number] [address] [place] [address], [place] [address] Apr, [facility] [address] [id number] [address] [place] [address], [place] [address] Mar, [facility] [address] [id number] [address] [place] [address], [place] [address] 29 Mar, 2014 [facility] [address] [id number] [address] [place] [address] [address] 2014 [facility] [address] [id number] [address] [place] [address], [place] [address] 2014 [facility] [address] [id number] [address] [place] [address], [place] [address] 08 Mar, 2014 [facility] [address] [id number] [address] [place] [address], [place] [address] 08 Mar, 2014 [facility] [address] [id number] [address] [place] [address], [place] [address] 29 Feb, 2014 [facility] [address] [id number] [address] [place] [address], [place] [address] 29 Feb, 2014 [facility] [address] [id number] [address] [place] [address], [place] [address] 17 Feb, 2014 [facility] [address] [id number] [address] [place] [address], [place] [address] 16 Feb, 2014 [facility] [address] [id number] [address] [place] [address], [place] [address] 16 Feb, 2014 [facility] [address] [id number] [address] [place] [address], [place] [address] Feb, [facility] [address] [id number] [address] [place] [address], [place] [address] Feb, [facility] [address] [id number] [address] [place] [address], [place] [address] Jan, [facility] [address] [id number] [address] [place] [address], [place] [address] Jan, [facility] [address] [id number] [address] [place] [address], [place] [address] Jan, [facility] [address] [id number] [address] [place] [address], [place] [address] Jan, [facility] [address] [id number] [address] [place] [address], [place] [address] Dec, [facility] [address] [id number] [address] [place] [address], [place] [address] Dec, [facility] [address] [id number] [address] [place] [id number] Dec, [facility] [place] [address] [facility] [id number] [address], [place] [address] Dec, IMMUNIZATIONS No Known Immunizations SOCIAL HISTORY Never Assessed REASON FOR VISIT EMR-[facility] [place] PLAN OF CARE VITAL SIGNS MEDICATIONS Unknown [...]
--- OUTSIDE RECORDS SUMMARY | 2019-10-29 01:19 | XMS REPORT ---
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 Name Role Phone ANGE REYNOSO Unavailable PROBLEMS Type Condition ICD9-CM Code UPW16-TI Code Onset Dates Condition S tatus SNOMED Code Problem Bilateral low back pain without sciatica M54.5 Active 849128887 Problem Anxiety F41.9 Active 25599524 Problem Chronic pain syndrome G89.4 Active 037652713 Problem Thrush B37.0 Active 11914916 Problem Type 2 diabetes mellitus with complication E11.8 Active 21259715 Problem COPD with acute exacerbation J44.1 A ctive 587189865 Problem History of long-term use of multiple prescription drugs Z92.29 Active 434566713 Problem Essential hypertension I10 Active 21942953 Problem Mixed hyperlipidemia E78.2 Active 409637465 Problem Long-term use of high-risk medication Z79.899 Active 153755395 Problem Chronic obstructive pulmonary disease, unspecified COPD ty pe J44.9 Active [id number] ALLERGIES No Information ENCOUNTERS Encounter Location Date Diagnosis [facility] [address] [id number] [address] [place] [address] Nov, [facility] [address] [id number] [address] [place] [id number] October, Scabies B86 [facility] [address] [id number] [address] [place] [id number] October, Acute upper respiratory infe ction, unspecified J06.9 [facility] [address] [id number] [address] [place] [id number] October, Dysuria R30.0 and Coughing R 05 [facility] [id number] [place] [address] Aug, [facility] [address] [id number] [address] [place] [address] Jun, [facility] [address] [id number] [address] [place] [address] Jun, [facility] [address] [id number] [address] [place] [id number] Jun, [facility] [address] [id number] [address] [place] [id number] May, [facility] [address] [id number] [address] [place] [id number] May, [facility] [address] [facility] [id number] [address] [place] [address] May, [facility] [address] [facility] [id number] [address] [place] [address] Apr, Type 2 diabetes mellitus wit h complication E11.8 ; Chronic pain syndrome G89.4 ; Bilateral low back pain without sciatica M54.5 ; Essential hypertension I10 ; Anxiety F41.9 ; COPD with acute exacerbation J44.1 ; Pain of left hand M79.642 and Pain in right hand M79.641 [facility] [address] [id number] [address] [place] [address] Apr, [facility] [address] [id number] [address] [place] [id number] Mar, [facility] [address] [id number] [address] [place] [id number] Mar, [facility] [address] [id number] [address] [place] [id number] Mar, [facility] [address] [facility] [id number] [address] [place] [id number] Feb, [facility] [address] [facility] [id number] [address] [place] [address] Feb, [facility] [address] [id number] [address] [place] [id number] Jan, Type 2 diabetes mellitus wit h complication E11.8 ; Chronic pain syndrome G89.4 ; Bilateral low back pain without sciatica M54.5 ; Essential hypertension I10 ; Anxiety F41.9 ; Chronic obstructive pulmonary disease, unspecified COPD type J44.9 and Thrush B37.0 [facility] [address] [id number] [address] [place] [id number] Jan, [facility] [address] [id number] [address] [place] [id number] Dec, [facility] [address] [id number] [address] [place] [address] Dec, [facility] [address] [id number] [address] [place] [id number] Nov, [facility] [address] [id number] [address] [place] [address] Nov, [facility] [address] [id number] [address] [place] [id number] Nov, [facility] [address] [facility] [id number] [address] [place] [id number] Nov, Chest pain, unspecified type R07.9 and COPD exacerbation J44.1 [facility] [address] [id number] [address] [place] [id number] October, [facility] [address] [facility] [id number] [address] [place] [id number] Sep, [facility] [address] [id number] [address] [place] [address] Sep, Type 2 diabetes mellitus wit h complication E11.8 ; Chronic pain syndrome G89.4 ; Bilateral low back pain without sciatica M54.5 ; Essential hypertension I10 ; Anxiety F41.9 and COPD exacerbation J44.1 [facility] [address] [facility] [id number] [address] [place] [address] Aug, [facility] [address] [facility] [id number] [address] [place] [address] Aug, [facility] [address] [facility] [id number] [address] [place] [address] Aug, Chronic pain syndrome G89.4 [facility] [address] [facility] [id number] [address] [place] [id number] Aug, [facility] [id number] [place] [address] Aug, [facility] [id number] [place] [address] Jul, Chronic pain syndrome G89.4 and Anxiety F41.9 [facility] [address] [id number] [address] [place] [id number] Jul, [facility] [address] [address] Jun, Bilateral low back pain with out sciatica M54.5 ; Chronic pain syndrome G89.4 ; Anxiety F41.9 ; History of long-term use of multiple prescription drugs Z92.29 ; Type 2 diabetes mellitus with complication E11.8 ; Long-term use of high-risk medication Z79.899 ; Mixed hyperlipidemia E78.2 and Essential hypertension I10 [facility] [address] [id number] [address] [place] [id number] Jun, [facility] [address] [id number] [address] [place] [address] Jun, [facility] [address] [facility] [id number] [address] [place] [phone] May, [facility] [address] [id number] [address] [place] [address] Apr, [facility] [address] [id number] [address] [place] [address] Mar, [facility] [address] [id number] [address] [place] [address] Mar, Bilateral low back pain with out sciatica M54.5 ; History of long- term use of multiple prescription drugs Z92.29 ; Anxiety F41.9 ; Chronic pain syndrome G89.4 ; Type 2 diabetes mellitus with complication E11.8 ; Long-term use of high-risk medication Z79.899 and Mixed hyperlipidemia E78.2 [facility] [address] [id number] [address] [place] [id number] Mar, [facility] [address] [id number] [address] [place] [id number] Mar, Chronic pain syndrome G89.4 [facility] [address] [id number] [address] [place] [id number] Mar, [facility] [address] [id number] [address] [place] [address] Feb, [facility] [address] [id number] [address] [place] [id number] Feb, [facility] [address] [id number] [address] [place] [id number] Feb, [facility] [address] [id number] [address] [place] [address] Feb, [facility] [address] [id number] [address] [place] [address] Jan, [facility] [address] [facility] [id number] [address] [place] [id number] Jan, [facility] [address] [id number] [address] [place] [address] Dec, [facility] [address] [id number] [address] [place] [address] Dec, Lumbago 724.2 ; Diabetes thony litus without mention of complication, type II or unspecified type, not stated as uncontrolled 250.00 ; Essential hypertension, benign 401.1 ; Anxiety state, unspecified 300.00 ; Chronic pain 338.29 ; COPD with acute exacerbation 491.21 ; Tobacco abuse 305.1 ; Depression 311 and Hyperlipidemia 272.4 [facility] [address] [id number] [address] [place] [address] Dec, [facility] [address] [facility] [id number] [address] [place] [address] Nov, Lumbago 724.2 ; Diabetes thony litus without mention of complication, type II or unspecified type, not stated as uncontrolled 250.00 ; Essential hypertension, benign 401.1 ; Anxiety state, unspecified 300.00 ; Chronic pain 338.29 ; COPD with acute exacerbation 491.21 ; Tobacco abuse 305.1 and Depression 311 [facility] [address] [id number] [address] [place] [address] Nov, [facility] [address] [id number] [address] [place] [address] Nov, [facility] [address] [id number] [address] [place] [id number] Nov, [facility] [address] [id number] [address] [place] [id number] October, [facility] [address] [id number] [address] [place] [id number] October, [facility] [address] [id number] [address] [place] [id number] October, [facility] [address] [id number] [address] [place] [address] October, [facility] [address] [id number] [address] [place] [phone] October, [facility] [address] [id number] [address] [place] [address] Sep, [facility] [address] [facility] [id number] [address] [place] [phone] Sep, [facility] [address] [id number] [address] [place] [address], [place] [address] 13 Sep, 2014 [facility] [address] [id number] [address] [place] [address], [place] [id number] 23 Aug, 2014 [facility] [address] [id number] [address] [place] [address], [place] [address] 23 Aug, 2014 [facility] [address] [id number] [address] [place] [address], [place] [address] 20 Aug, 2014 [facility] [address] [id number] [address] [place] [address], [place] [address] 20 Aug, 2014 [facility] [address] [id number] [address] [place] [address], [place] [address] 19 Aug, 2014 [facility] [address] [id number] [address] [place] [address], [place] [address] 19 Aug, 2014 [facility] [address] [id number] [address] [place] [address], [place] [address] 16 Aug, 2014 [facility] [address] [id number] [address] [place] [address], [place] [address] 16 Aug, 2014 [facility] [address] [id number] [address] [place] [address], [place] [address] 16 Aug, 2014 [facility] [address] [id number] [address] [place] [address], [place] [address] 16 Aug, 2014 [facility] [address] [id number] [address] [place] [address], [place] [address] 13 Aug, 2014 [facility] [address] [id number] [address] [place] [address], [place] [address] 13 Aug, 2014 [facility] [address] [id number] [address] [place] [address], [place] [address] 24 Jul, 2014 [facility] [address] [id number] [address] [place] [address], [place] [address] 23 Jul, 2014 [facility] [address] [id number] [address] [place] [address], [place] [address] Jul, [facility] [address] [id number] [address] [place] [address], [place] [address] Jul, [facility] [address] [id number] [address] [place] [address], [place] [address] Jul, [facility] [address] [id number] [address] [place] [address], [place] [address] Jul, [facility] [address] [id number] [address] [place] [address], [place] [address] Jul, [facility] [address] [id number] [address] [place] [address], [place] [address] Jun, [facility] [address] [id number] [address] [place] [address], [place] [address] Jun, [facility] [address] [id number] [address] [place] [address], [place] [address] Jun, [facility] [address] [id number] [address] [place] [address], [place] [address] Jun, [facility] [address] [id number] [address] [place] [address], [place] [address] Jun, [facility] [address] [id number] [address] [place] [address], [place] [address] Jun, [facility] [address] [id number] [address] [place] [address], [place] [address] Jun, [facility] [address] [id number] [address] [place] [address], [place] [address] Jun, [facility] [address] [id number] [address] [place] [address], [place] [address] Jun, [facility] [address] [id number] [address] [place] [address], [place] [address] May, [facility] [address] [id number] [address] [place] [address], [place] [address] May, [facility] [address] [id number] [address] [place] [address], [place] [address] 30 May, 2014 [facility] [address] [id number] [address] [place] [address], [place] [address] 30 May, 2014 [facility] [address] [id number] [address] [place] [address], [place] [address] 17 May, 2014 [facility] [address] [id number] [address] [place] [address], [place] [address] 15 May, 2014 [facility] [address] [id number] [address] [place] [address], [place] [address] 15 May, 2014 [facility] [address] [id number] [address] [place] [address], [place] [address] 12 May, 2014 [facility] [address] [id number] [address] [place] [address], [place] [address] May, [facility] [address] [id number] [address] [place] [address], [place] [address] May, [facility] [address] [id number] [address] [place] [address], [place] [address] May, [facility] [address] [id number] [address] [place] [address], [place] [address] Apr, [facility] [address] [id number] [address] [place] [address], [place] [address] Apr, [facility] [address] [id number] [address] [place] [address], [place] [address] Apr, [facility] [address] [id number] [address] [place] [address], [place] [address] Apr, [facility] [address] [id number] [address] [place] [address], [place] [address] 29 Mar, 2014 [facility] [address] [id number] [address] [place] [address], [place] [address] 29 Mar, 2014 [facility] [address] [id number] [address] [place] [address], [place] [address] Mar, [facility] [address] [id number] [address] [place] [address], [place] [address] 2014 [facility] [address] [id number] [address] [place] [address], [place] [address] Mar, [facility] [address] [id number] [address] [place] [address], [place] [address] Mar, [facility] [address] [id number] [address] [place] [address], [place] [address] 29 Feb, 2014 [facility] [address] [id number] [address] [place] [address], [place] [address] 29 Feb, 2014 [facility] [address] [id number] [address] [place] [address], [place] [address] 17 Feb, 2014 [facility] [address] [id number] [address] [place] [address], [place] [address] 16 Feb, 2014 [facility] [address] [id number] [address] [place] [address], [place] [address] 16 Feb, 2014 [facility] [address] [id number] [address] [place] [address], [place] [address] Feb, [facility] [address] [id number] [address] [place] [address], [place] [address] 03 Feb, 2014 [facility] [address] [id number] [address] [place] [address], [place] [address] Jan, [facility] [address] [id number] [address] [place] [address], [place] [address] Jan, [facility] [address] [id number] [address] [place] [address], [place] [address] Jan, [facility] [address] [id number] [address] [place] [address], [place] [address] Jan, [facility] [address] [id number] [address] [place] [address], [place] [address] Dec, [facility] [address] [id number] [place] [address] Dec, [facility] [address] [facility] [id number] [address] [place] [id number] Dec, [facility] [address] [facility] [id number] [address] [place] [address] Dec, IMMUNIZATIONS No Known Immunizations SOCIAL HISTORY [...]
--- OUTSIDE RECORDS SUMMARY | 2019-10-29 01:20 | XMS REPORT ---
Author Author Veronica Vanessa Doctor Organization [facility] Address Unknown Phone Unavailable Care Team Providers Care Director Business Development Name Role Phone Migration, Doctor Unavailable Unavailable PROBLEMS Type Condition ICD9-CM Code XTY04-IF Code Onset Dates Condition S tatus SNOMED Code Problem Bilateral low back pain without sciatica M54.5 Active 694380489 Problem Anxiety F41.9 Active 22651658 Problem Chronic pain syndrome G89.4 Active 298796227 Problem Thrush B37.0 Active 63369289 Problem Type 2 diabetes mellitus with complication E11.8 Active 95257990 Problem COPD with acute exacerbation J44.1 A ctive 653066725 Problem History of long-term use of multiple prescription drugs Z92.29 Active 450285950 Problem Essential hypertension I10 Active 54332158 Problem Mixed hyperlipidemia E78.2 Active 307057535 Problem Long-term use of high-risk medication Z79.899 Active 136515799 Problem Chronic obstructive pulmonary disease, unspecified COPD ty pe J44.9 Active 13521325 ALLERGIES No Information ENCOUNTERS Encounter Location Date Diagnosis [facility] [address] [address] Nov, [facility] [address] [address] October, Scabies B86 [facility] [id number] [place] [address] October, Acute upper respiratory infe ction, unspecified J06.9 [facility] [address] [address] October, Dysuria R30.0 and Coughing R 05 [facility] [address] [id number] [address] [place] [address] Aug, [facility] [address] [address] Jun, [facility] [address] [id number] [address] [place] [address] Jun, [facility] [address] [id number] [address] [place] [address] Jun, [facility] [address] [id number] [address] [place] [address] May, [facility] [address] [id number] [address] [place] [address] May, [facility] [address] [id number] [address] [place] [address] May, [facility] [address] [facility] [id number] [address] [place] [address] Apr, Type 2 diabetes mellitus wit h complication E11.8 ; Chronic pain syndrome G89.4 ; Bilateral low back pain without sciatica M54.5 ; Essential hypertension I10 ; Anxiety F41.9 ; COPD with acute exacerbation J44.1 ; Pain of left hand M79.642 and Pain in right hand M79.641 [facility] [address] [id number] [address] [place] [address] Apr, [facility] [address] [id number] [address] [place] [address] Mar, [facility] [address] [id number] [address] [place] [address] Mar, [facility] [address] [id number] [address] [place] [address] Mar, [facility] [address] [id number] [address] [place] [address] Feb, [facility] [address] [id number] [address] [place] [address] Feb, [facility] [address] [facility] [id number] [address] [place] [address] Jan, Type 2 diabetes mellitus wit h complication E11.8 ; Chronic pain syndrome G89.4 ; Bilateral low back pain without sciatica M54.5 ; Essential hypertension I10 ; Anxiety F41.9 ; Chronic obstructive pulmonary disease, unspecified COPD type J44.9 and Thrush B37.0 [facility] [address] [id number] [address] [place] [address] Jan, [facility] [address] [id number] [address] [place] [address] Dec, [facility] [address] [id number] [address] [place] [address] Dec, [facility] [address] [id number] [address] [place] [address] Nov, [facility] [address] [id number] [address] [place] [address] Nov, [facility] [address] [id number] [address] [place] [address] Nov, [facility] [address] [id number] [address] [place] [address] Nov, Chest pain, unspecified type R07.9 and COPD exacerbation J44.1 [facility] [address] [id number] [address] [place] [address] October, [facility] [address] [id number] [address] [place] [address] Sep, [facility] [address] [id number] [address] [place] [address] Sep, Type 2 diabetes mellitus wit h complication E11.8 ; Chronic pain syndrome G89.4 ; Bilateral low back pain without sciatica M54.5 ; Essential hypertension I10 ; Anxiety F41.9 and COPD exacerbation J44.1 [facility] [address] [id number] [address] [place] [address] Aug, [facility] [address] [id number] [address] [place] [address] Aug, [facility] [address] [facility] [id number] [address] [place] [address] Aug, Chronic pain syndrome G89.4 [facility] [address] [facility] [id number] [address] [place] [address] Aug, [facility] [address] [facility] [id number] [address] [place] [address] Aug, [facility] [address] [facility] [id number] [address] [place] [address] Jul, Chronic pain syndrome G89.4 and Anxiety F41.9 [facility] [id number] [place] [address] Jul, [facility] [address] [id number] [address] [place] [address] Jun, Bilateral low back pain with out sciatica M54.5 ; Chronic pain syndrome G89.4 ; Anxiety F41.9 ; History of long-term use of multiple prescription drugs Z92.29 ; Type 2 diabetes mellitus with complication E11.8 ; Long-term use of high-risk medication Z79.899 ; Mixed hyperlipidemia E78.2 and Essential hypertension I10 [facility] [address] [facility] [id number] [address] [place] [address] Jun, [facility] [address] [facility] [id number] [address] [place] [address] Jun, [facility] [address] [id number] [address] [place] [address] May, [facility] [address] [facility] [id number] [address] [place] [address] Apr, [facility] [address] [facility] [id number] [address] [place] [address] Mar, [facility] [address] [facility] [id number] [address] [place] [address] Mar, Bilateral low back pain with out sciatica M54.5 ; History of long- term use of multiple prescription drugs Z92.29 ; Anxiety F41.9 ; Chronic pain syndrome G89.4 ; Type 2 diabetes mellitus with complication E11.8 ; Long-term use of high-risk medication Z79.899 and Mixed hyperlipidemia E78.2 [facility] [address] [facility] [id number] [address] [place] [address] Mar, [facility] [address] [id number] [address] [place] [address] Mar, Chronic pain syndrome G89.4 [facility] [address] [id number] [address] [place] [address] Mar, [facility] [address] [id number] [address] [place] [address] Feb, [facility] [address] [id number] [address] [place] [address] Feb, [facility] [address] [facility] [id number] [address] [place] [address] Feb, [facility] [address] [id number] [address] [place] [address] Feb, [facility] [address] [id number] [address] [place] [address] Jan, [facility] [address] [id number] [address] [place] [address] Jan, [facility] [address] [id number] [address] [place] [address] Dec, [facility] [address] [id number] [address] [place] [address] Dec, Lumbago 724.2 ; Diabetes thony litus without mention of complication, type II or unspecified type, not stated as uncontrolled 250.00 ; Essential hypertension, benign 401.1 ; Anxiety state, unspecified 300.00 ; Chronic pain 338.29 ; COPD with acute exacerbation 491.21 ; Tobacco abuse 305.1 ; Depression 311 and Hyperlipidemia 272.4 [facility] [address] [id number] [address] [place] [address] Dec, [facility] [address] [id number] [address] [place] [address] Nov, Lumbago 724.2 ; Diabetes thony litus without mention of complication, type II or unspecified type, not stated as uncontrolled 250.00 ; Essential hypertension, benign 401.1 ; Anxiety state, unspecified 300.00 ; Chronic pain 338.29 ; COPD with acute exacerbation 491.21 ; Tobacco abuse 305.1 and Depression 311 [facility] [address] [id number] [address] [place] [address] Nov, [facility] [address] [id number] [address] [place] [address] Nov, [facility] [address] [id number] [address] [place] [address] Nov, [facility] [address] [id number] [address] [place] [address] October, [facility] [address] [id number] [address] [place] [address] October, [facility] [address] [id number] [address] [place] [address] October, [facility] [address] [id number] [address] [place] [address] October, [facility] [address] [id number] [address] [place] [address] October, [facility] [address] [id number] [address] [place] [address] Sep, [facility] [address] [id number] [address] [place] [address] Sep, [facility] [address] [id number] [address] [place] [address] Sep, [facility] [address] [id number] [facility] [address] 23 Aug, 2014 [facility] [address] [id number] [address] [place] [address], [place] [address] 23 Aug, 2014 [facility] [address] [id number] [address] [place] [address], [place] [address] 20 Aug, 2014 [facility] [address] [id number] [address] [place] [address], [place] [address] 20 Aug, 2014 [facility] [address] [id number] [address] [place] [address], [place] [address] 19 Aug, 2014 [facility] [address] [id number] [address] [place] [address], [place] [address] 19 Aug, 2014 [facility] [address] [id number] [address] [place] [address], [place] [address] 16 Aug, 2014 [facility] [address] [id number] [address] [place] [address], [place] [address] 16 Aug, 2014 [facility] [address] [id number] [address] [place] [address], [place] [address] 16 Aug, 2014 [facility] [address] [id number] [address] [place] [address], [place] [address] 16 Aug, 2014 [facility] [address] [id number] [address] [place] [address], [place] [address] 13 Aug, 2014 [facility] [address] [id number] [address] [place] [address], [place] [address] 13 Aug, 2014 [facility] [address] [id number] [address] [place] [address], [place] [address] 24 Jul, 2014 [facility] [address] [id number] [address] [place] [address], [place] [address] 23 Jul, 2014 [facility] [address] [id number] [address] [place] [address], [place] [address] 23 Jul, 2014 [facility] [address] [id number] [address] [place] [address], [place] [address] Jul, [facility] [address] [id number] [address] [place] [address], [place] [address] Jul, [facility] [address] [id number] [address] [place] [address], [place] [address] Jul, [facility] [address] [id number] [address] [place] [address], [place] [address] Jul, [facility] [address] [id number] [address] [place] [address], [place] [address] Jun, [facility] [address] [id number] [address] [place] [address], [place] [address] Jun, [facility] [address] [id number] [address] [place] [address], [place] [address] Jun, [facility] [address] [id number] [address] [place] [address], [place] [address] Jun, [facility] [address] [id number] [address] [place] [address], [place] [address] Jun, [facility] [address] [id number] [address] [place] [address], [place] [address] Jun, [facility] [address] [id number] [address] [place] [address], [place] [address] Jun, [facility] [address] [id number] [address] [place] [address], [place] [address] Jun, [facility] [address] [id number] [address] [place] [address], [place] [address] Jun, [facility] [address] [id number] [address] [place] [address], [place] [address] May, [facility] [address] [id number] [address] [place] [address], [place] [address] May, [facility] [address] [id number] [address] [place] [address], [place] [address] May, [facility] [address] [id number] [address] [place] [address], [place] [address] 30 May, 2014 [facility] [address] [id number] [address] [place] [address], [place] [address] 17 May, 2014 [facility] [address] [id number] [address] [place] [address], [place] [address] 15 May, 2014 [facility] [address] [id number] [address] [place] [address], [place] [address] 15 May, 2014 [facility] [address] [id number] [address] [place] [address], [place] [address] 12 May, 2014 [facility] [address] [id number] [address] [place] [address], [place] [address] May, [facility] [address] [id number] [address] [place] [address], [place] [address] May, [facility] [address] [id number] [address] [place] [address], [place] [address] May, [facility] [address] [id number] [address] [place] [address], [place] [address] Apr, [facility] [address] [id number] [address] [place] [address], [place] [address] Apr, [facility] [address] [id number] [address] [place] [address], [place] [address] Apr, [facility] [address] [id number] [address] [place] [address], [place] [address] Apr, [facility] [address] [id number] [address] [place] [address], [place] [address] Mar, [facility] [address] [id number] [address] [place] [address], [place] [address] 29 Mar, 2014 [facility] [address] [id number] [address] [place] [address], [place] [address] 2014 [facility] [address] [id number] [address] [place] [address], [place] [address] 2014 [facility] [address] [id number] [address] [place] [address], [place] [address] 08 Mar, 2014 [facility] [address] [id number] [address] [place] [address], [place] [address] 08 Mar, 2014 [facility] [address] [id number] [address] [place] [address], [place] [address] 29 Feb, 2014 [facility] [address] [id number] [address] [place] [address], [place] [address] 29 Feb, 2014 [facility] [address] [id number] [address] [place] [address], [place] [address] 17 Feb, 2014 [facility] [address] [id number] [address] [place] [address], [place] [address] 16 Feb, 2014 [facility] [address] [id number] [address] [place] [address], [place] [address] 16 Feb, 2014 [facility] [address] [id number] [address] [place] [address], [place] [address] Feb, [facility] [address] [id number] [address] [place] [address], [place] [address] Feb, [facility] [address] [id number] [address] [place] [address], [place] [address] Jan, [facility] [address] [id number] [address] [place] [address], [place] [address] Jan, [facility] [address] [id number] [address] [place] [address], [place] [address] Jan, [facility] [address] [id number] [address] [place] [address], [place] [address] Jan, [facility] [address] [id number] [address] [place] [address], [place] [address] Dec, [facility] [address] [id number] [address] [place] [address], [place] [address] Dec, [facility] [address] [id number] [address] [address] Dec, [facility] [address] [facility] [id number] [address] [address] Dec, IMMUNIZATIONS No Known Immunizations SOCIAL HISTORY Never Assessed REASON FOR VISIT [facility] PLAN OF CARE VITAL SIGNS MEDICATIONS Medication [...] by Oral route 2 times per day CA N MUST LAST 30 DAYS Aug, Active [...]
--- OUTSIDE RECORDS SUMMARY | 2019-10-29 01:20 | XMS REPORT ---
Author Author Veronica Vanessa Doctor Organization [facility] Address Unknown Phone Unavailable Care Team Providers Care Credit Portfolio Manager Name Role Phone Migration, Doctor Unavailable Unavailable PROBLEMS Type Condition ICD9-CM Code WLW50-QS Code Onset Dates Condition S tatus SNOMED Code Problem Bilateral low back pain without sciatica M54.5 Active 888701895 Problem Anxiety F41.9 Active 97916402 Problem Chronic pain syndrome G89.4 Active 777145501 Problem Thrush B37.0 Active 45193320 Problem Type 2 diabetes mellitus with complication E11.8 Active 80697316 Problem COPD with acute exacerbation J44.1 A ctive 329563719 Problem History of long-term use of multiple prescription drugs Z92.29 Active 576278810 Problem Essential hypertension I10 Active 50166421 Problem Mixed hyperlipidemia E78.2 Active 502371157 Problem Long-term use of high-risk medication Z79.899 Active 850166659 Problem Chronic obstructive pulmonary disease, unspecified COPD ty pe J44.9 Active 45485297 ALLERGIES No Information ENCOUNTERS Encounter Location Date Diagnosis [facility] [address] [id number] Nov, [facility] [address] [address] October, Scabies B86 [facility] [address] [id number] [address] [place] [address] October, Acute upper respiratory infe ction, unspecified J06.9 [facility] [address] [address] October, Dysuria R30.0 and Coughing R 05 [facility] [address] [id number] [address] [place] [address] Aug, [facility] [address] [id number] Jun, [facility] [address] [id number] [address] [place] [address] Jun, [facility] [address] [id number] [address] [place] [address] Jun, [facility] [address] [id number] [address] [place] [address] May, [facility] [address] [id number] [address] [place] [address] May, [facility] [address] [id number] [address] [place] [address] May, [facility] [address] [facility] [id number] [address] [place] [address] Apr, Type 2 diabetes mellitus wit h complication E11.8 ; Chronic pain syndrome G89.4 ; Bilateral low back pain without sciatica M54.5 ; Essential hypertension I10 ; Anxiety F41.9 ; COPD with acute exacerbation J44.1 ; Pain of left hand M79.642 and Pain in right hand M79.641 [facility] [address] [id number] [address] [place] [address] Apr, [facility] [address] [id number] [address] [place] [address] Mar, [facility] [address] [id number] [address] [place] [address] Mar, [facility] [address] [id number] [address] [place] [address] Mar, [facility] [address] [id number] [address] [place] [address] Feb, [facility] [address] [id number] [address] [place] [address] Feb, [facility] [address] [facility] [id number] [address] [place] [address] Jan, Type 2 diabetes mellitus wit h complication E11.8 ; Chronic pain syndrome G89.4 ; Bilateral low back pain without sciatica M54.5 ; Essential hypertension I10 ; Anxiety F41.9 ; Chronic obstructive pulmonary disease, unspecified COPD type J44.9 and Thrush B37.0 [facility] [address] [id number] [address] [place] [address] Jan, [facility] [address] [id number] [address] [place] [address] Dec, [facility] [address] [id number] [address] [place] [address] Dec, [facility] [address] [id number] [address] [place] [id number] Nov, [facility] [address] [id number] [address] [place] [address] Nov, [facility] [address] [id number] [address] [place] [address] Nov, [facility] [address] [id number] [address] [place] [address] Nov, Chest pain, unspecified type R07.9 and COPD exacerbation J44.1 [facility] [address] [id number] [address] [place] [address] October, [facility] [address] [id number] [address] [place] [address] Sep, [facility] [address] [id number] [address] [place] [address] Sep, Type 2 diabetes mellitus wit h complication E11.8 ; Chronic pain syndrome G89.4 ; Bilateral low back pain without sciatica M54.5 ; Essential hypertension I10 ; Anxiety F41.9 and COPD exacerbation J44.1 [facility] [address] [id number] [address] [place] [address] Aug, [facility] [address] [id number] [address] [place] [address] Aug, [facility] [address] [facility] [id number] [address] [place] [address] Aug, Chronic pain syndrome G89.4 [facility] [address] [facility] [id number] [address] [place] [address] Aug, [facility] [address] [facility] [id number] [address] [place] [address] Aug, [facility] [address] [facility] [id number] [address] [place] [address] Jul, Chronic pain syndrome G89.4 and Anxiety F41.9 [facility] [id number] [place] [address] Jul, [facility] [address] [id number] [address] [place] [address] Jun, Bilateral low back pain with out sciatica M54.5 ; Chronic pain syndrome G89.4 ; Anxiety F41.9 ; History of long-term use of multiple prescription drugs Z92.29 ; Type 2 diabetes mellitus with complication E11.8 ; Long-term use of high-risk medication Z79.899 ; Mixed hyperlipidemia E78.2 and Essential hypertension I10 [facility] [address] [facility] [id number] [address] [place] [address] Jun, [facility] [address] [facility] [id number] [address] [place] [address] Jun, [facility] [address] [id number] [address] [place] [address] May, [facility] [address] [facility] [id number] [address] [place] [address] Apr, [facility] [address] [facility] [id number] [address] [place] [address] Mar, [facility] [address] [facility] [id number] [address] [place] [address] Mar, Bilateral low back pain with out sciatica M54.5 ; History of long- term use of multiple prescription drugs Z92.29 ; Anxiety F41.9 ; Chronic pain syndrome G89.4 ; Type 2 diabetes mellitus with complication E11.8 ; Long-term use of high-risk medication Z79.899 and Mixed hyperlipidemia E78.2 [facility] [address] [facility] [id number] [address] [place] [address] Mar, [facility] [address] [id number] [address] [place] [address] Mar, Chronic pain syndrome G89.4 [facility] [address] [id number] [address] [place] [address] Mar, [facility] [address] [id number] [address] [place] [address] Feb, [facility] [address] [id number] [address] [place] [address] Feb, [facility] [address] [facility] [id number] [address] [place] [address] Feb, [facility] [address] [id number] [address] [place] [address] Feb, [facility] [address] [id number] [address] [place] [address] Jan, [facility] [address] [id number] [address] [place] [address] Jan, [facility] [address] [id number] [address] [place] [address] Dec, [facility] [address] [id number] [address] [place] [address] Dec, Lumbago 724.2 ; Diabetes thony litus without mention of complication, type II or unspecified type, not stated as uncontrolled 250.00 ; Essential hypertension, benign 401.1 ; Anxiety state, unspecified 300.00 ; Chronic pain 338.29 ; COPD with acute exacerbation 491.21 ; Tobacco abuse 305.1 ; Depression 311 and Hyperlipidemia 272.4 [facility] [address] [id number] [address] [place] [address] Dec, [facility] [address] [id number] [address] [place] [address] Nov, Lumbago 724.2 ; Diabetes thony litus without mention of complication, type II or unspecified type, not stated as uncontrolled 250.00 ; Essential hypertension, benign 401.1 ; Anxiety state, unspecified 300.00 ; Chronic pain 338.29 ; COPD with acute exacerbation 491.21 ; Tobacco abuse 305.1 and Depression 311 [facility] [address] [id number] [address] [place] [address] Nov, [facility] [address] [id number] [address] [place] [address] Nov, [facility] [address] [id number] [address] [place] [address] Nov, [facility] [address] [id number] [address] [place] [address] October, [facility] [address] [id number] [address] [place] [address] October, [facility] [address] [id number] [address] [place] [address] October, [facility] [address] [id number] [address] [place] [address] October, [facility] [address] [id number] [address] [place] [address] October, [facility] [address] [id number] [address] [place] [address] Sep, [facility] [address] [id number] [address] [place] [address] Sep, [facility] [address] [id number] [address] [place] [address] Sep, [facility] [address] [id number] [facility] [place] [address] 23 Aug, 2014 [facility] [address] [id number] [address] [place] [address], [place] [id number] 23 Aug, 2014 [facility] [address] [id number] [address] [place] [address], [place] [id number] 20 Aug, 2014 [facility] [address] [id number] [address] [place] [address], [place] [address] 20 Aug, 2014 [facility] [address] [id number] [address] [place] [address], [place] [address] 19 Aug, 2014 [facility] [address] [id number] [address] [place] [address], [place] [address] 19 Aug, 2014 [facility] [address] [id number] [address] [place] [address], [place] [id number] 16 Aug, 2014 [facility] [address] [id number] [address] [place] [address], [place] [address] 16 Aug, 2014 [facility] [address] [id number] [address] [place] [address], [place] [id number] 16 Aug, 2014 [facility] [address] [id number] [address] [place] [address], [place] [address] 16 Aug, 2014 [facility] [address] [id number] [address] [place] [address], [place] [address] 13 Aug, 2014 [facility] [address] [id number] [address] [place] [address], [place] [id number] 13 Aug, 2014 [facility] [address] [id number] [address] [place] [address], [place] [id number] 24 Jul, 2014 [facility] [address] [id number] [address] [place] [address], [place] [id number] 23 Jul, 2014 [facility] [address] [id number] [address] [place] [address], [place] [id number] 23 Jul, 2014 [facility] [address] [id number] [address] [place] [address], [place] [address] Jul, [facility] [address] [id number] [address] [place] [address], [place] [address] Jul, [facility] [address] [id number] [address] [place] [address], [place] [address] Jul, [facility] [address] [id number] [address] [place] [address], [place] [address] Jul, [facility] [address] [id number] [address] [place] [address], [place] [address] Jun, [facility] [address] [id number] [address] [place] [address], [place] [address] Jun, [facility] [address] [id number] [address] [place] [address], [place] [address] Jun, [facility] [address] [id number] [address] [place] [address], [place] [address] Jun, [facility] [address] [id number] [address] [place] [address], [place] [address] Jun, [facility] [address] [id number] [address] [place] [address], [place] [address] Jun, [facility] [address] [id number] [address] [place] [address], [place] [address] Jun, [facility] [address] [id number] [address] [place] [address], [place] [address] Jun, [facility] [address] [id number] [address] [place] [address], [place] [address] Jun, [facility] [address] [id number] [address] [place] [address], [place] [address] May, [facility] [address] [id number] [address] [place] [address], [place] [address] May, [facility] [address] [id number] [address] [place] [address], [place] [address] May, [facility] [address] [id number] [address] [place] [address], [place] [address] 30 May, 2014 [facility] [address] [id number] [address] [place] [address], [place] [address] 17 May, 2014 [facility] [address] [id number] [address] [place] [address], [place] [address] 15 May, 2014 [facility] [address] [id number] [address] [place] [address], [place] [address] 15 May, 2014 [facility] [address] [id number] [address] [place] [address], [place] [address] 12 May, 2014 [facility] [address] [id number] [address] [place] [address], [place] [address] May, [facility] [address] [id number] [address] [place] [address], [place] [address] May, [facility] [address] [id number] [address] [place] [address], [place] [address] May, [facility] [address] [id number] [address] [place] [address], [place] [address] Apr, [facility] [address] [id number] [address] [place] [address], [place] [address] Apr, [facility] [address] [id number] [address] [place] [address], [place] [address] Apr, [facility] [address] [id number] [address] [place] [address], [place] [address] Apr, [facility] [address] [id number] [address] [place] [address], [place] [address] Mar, [facility] [address] [id number] [address] [place] [address], [place] [address] 29 Mar, 2014 [facility] [address] [id number] [address] [place] [address], [place] [address] 2014 [facility] [address] [id number] [address] [place] [address], [place] [address] 2014 [facility] [address] [id number] [address] [place] [address], [place] [id number] 08 Mar, 2014 [facility] [address] [id number] [address] [place] [address], [place] [address] 08 Mar, 2014 [facility] [address] [id number] [address] [place] [address], [place] [address] 29 Feb, 2014 [facility] [address] [id number] [address] [place] [address], [place] [address] 29 Feb, 2014 [facility] [address] [id number] [address] [place] [address], [place] [address] 17 Feb, 2014 [facility] [address] [id number] [address] [place] [address], [place] [address] 16 Feb, 2014 [facility] [address] [id number] [address] [place] [address], [place] [address] 16 Feb, 2014 [facility] [address] [id number] [address] [place] [address], [place] [address] Feb, [facility] [address] [id number] [address] [place] [address], [place] [address] Feb, [facility] [address] [id number] [address] [place] [address], [place] [address] Jan, [facility] [address] [id number] [address] [place] [address], [place] [address] Jan, [facility] [address] [id number] [address] [place] [address], [place] [address] Jan, [facility] [address] [id number] [address] [place] [address], [place] [address] Jan, [facility] [address] [id number] [address] [place] [address], [place] [address] Dec, [facility] [address] [id number] [address] [place] [address], [place] [address] Dec, [facility] [address] [id number] [address] [place] [id number] Dec, [facility] [address] [facility] [id number] [address] [address] Dec, IMMUNIZATIONS No Known Immunizations SOCIAL HISTORY Never Assessed REASON FOR VISIT EMR-[facility] [place] PLAN OF CARE VITAL [...]
--- OUTSIDE RECORDS SUMMARY | 2019-10-29 01:20 | XMS REPORT ---
Author Author RICOVeronica Ferrell ANGE Organization [facility] Address [address] [place] [address] Care Team Providers Care [facility] Insurance Representative Name Role Phone ANGE REYNOSO Unavailable PROBLEMS Type Condition ICD9-CM Code HPI63-BD Code Onset Dates Condition S tatus SNOMED Code Problem Bilateral low back pain without sciatica M54.5 Active 484395797 Problem Chronic pain syndrome G89.4 Active 882567535 Problem Anxiety F41.9 Active 15133575 Problem History of long-term use of multiple prescription drugs Z92.29 Active 107267413 Problem Type 2 diabetes mellitus with complication E11.8 Active 13146535 Problem COPD with acute exacerbation J44.1 A ctive 236372945 Problem Thrush B37.0 Active 50397232 Problem Mixed hyperlipidemia E78.2 Active 187331147 Problem Essential hypertension I10 Active 70757712 Problem Chronic obstructive pulmonary disease, unspecified COPD ty pe J44.9 Active 70704639 Problem Long-term use of high-risk medication Z79.899 Active 758578872 ALLERGIES No Information ENCOUNTERS Encounter Location Date Diagnosis [facility] [address] [id number] [address] [place] [address] Nov, [facility] [id number] [place] [address] October, Scabies B86 [facility] [address] [id number] [address] [place] [address] October, Acute upper respiratory infe ction, unspecified J06.9 [facility] [address] [id number] [address] [place] [address] October, Dysuria R30.0 and Coughing R 05 [facility] [id number] [place] [address] Aug, [facility] [address] [id number] [address] [place] [address] Jun, [facility] [address] [id number] [address] [place] [address] Jun, [facility] [address] [id number] [address] [place] [address] Jun, [facility] [address] [id number] [address] [place] [address] May, [facility] [address] [id number] [address] [place] [address] May, [facility] [address] [facility] [id number] [address] [place] [address] May, [facility] [address] [facility] [id number] [address] [place] [address] Apr, Type 2 diabetes mellitus wit h complication E11.8 ; Chronic pain syndrome G89.4 ; Bilateral low back pain without sciatica M54.5 ; Essential hypertension I10 ; Anxiety F41.9 ; COPD with acute exacerbation J44.1 ; Pain of left hand M79.642 and Pain in right hand M79.641 [facility] [address] [id number] [address] [place] [address] Apr, [facility] [address] [id number] [address] [place] [address] Mar, [facility] [address] [id number] [address] [place] [address] Mar, [facility] [address] [id number] [address] [place] [address] Mar, [facility] [address] [facility] [id number] [address] [place] [address] Feb, [facility] [address] [facility] [id number] [address] [place] [address] Feb, [facility] [address] [id number] [address] [place] [address] Jan, Type 2 diabetes mellitus wit h complication E11.8 ; Chronic pain syndrome G89.4 ; Bilateral low back pain without sciatica M54.5 ; Essential hypertension I10 ; Anxiety F41.9 ; Chronic obstructive pulmonary disease, unspecified COPD type J44.9 and Thrush B37.0 [facility] [address] [id number] [address] [place] [address] Jan, [facility] [address] [id number] [address] [place] [address] Dec, [facility] [address] [id number] [address] [place] [address] Dec, [facility] [address] [id number] [address] [place] [address] Nov, [facility] [address] [id number] [address] [place] [address] Nov, [facility] [address] [id number] [address] [place] [address] Nov, [facility] [address] [facility] [id number] [address] [place] [address] Nov, Chest pain, unspecified type R07.9 and COPD exacerbation J44.1 [facility] [address] [id number] [address] [place] [address] October, [facility] [address] [facility] [id number] [address] [place] [address] Sep, [facility] [address] [id number] [address] [place] [address] Sep, Type 2 diabetes mellitus wit h complication E11.8 ; Chronic pain syndrome G89.4 ; Bilateral low back pain without sciatica M54.5 ; Essential hypertension I10 ; Anxiety F41.9 and COPD exacerbation J44.1 [facility] [address] [facility] [id number] [address] [place] [address] Aug, [facility] [address] [facility] [id number] [address] [place] [address] Aug, [facility] [address] [facility] [id number] [address] [place] [address] Aug, Chronic pain syndrome G89.4 [facility] [address] [facility] [id number] [address] [place] [address] Aug, [facility] [id number] [place] [address] Aug, [facility] [id number] [place] [address] Jul, Chronic pain syndrome G89.4 and Anxiety F41.9 [facility] [address] [id number] [address] [place] [address] Jul, [facility] [address] [address] Jun, Bilateral low back pain with out sciatica M54.5 ; Chronic pain syndrome G89.4 ; Anxiety F41.9 ; History of long-term use of multiple prescription drugs Z92.29 ; Type 2 diabetes mellitus with complication E11.8 ; Long-term use of high-risk medication Z79.899 ; Mixed hyperlipidemia E78.2 and Essential hypertension I10 [facility] [address] [id number] [address] [place] [address] Jun, [facility] [address] [id number] [address] [place] [address] Jun, [facility] [address] [facility] [id number] [address] [place] [address] May, [facility] [address] [id number] [address] [place] [address] Apr, [facility] [address] [id number] [address] [place] [address] Mar, [facility] [address] [id number] [address] [place] [address] Mar, Bilateral low back pain with out sciatica M54.5 ; History of long- term use of multiple prescription drugs Z92.29 ; Anxiety F41.9 ; Chronic pain syndrome G89.4 ; Type 2 diabetes mellitus with complication E11.8 ; Long-term use of high-risk medication Z79.899 and Mixed hyperlipidemia E78.2 [facility] [address] [id number] [address] [place] [address] Mar, [facility] [address] [id number] [address] [place] [address] Mar, Chronic pain syndrome G89.4 [facility] [address] [id number] [address] [place] [address] Mar, [facility] [address] [id number] [address] [place] [address] Feb, [facility] [address] [id number] [address] [place] [address] Feb, [facility] [address] [id number] [address] [place] [address] Feb, [facility] [address] [id number] [address] [place] [address] Feb, [facility] [address] [id number] [address] [place] [address] Jan, [facility] [address] [facility] [id number] [address] [place] [address] Jan, [facility] [address] [id number] [address] [place] [address] Dec, [facility] [address] [id number] [address] [place] [address] Dec, Lumbago 724.2 ; Diabetes thony litus without mention of complication, type II or unspecified type, not stated as uncontrolled 250.00 ; Essential hypertension, benign 401.1 ; Anxiety state, unspecified 300.00 ; Chronic pain 338.29 ; COPD with acute exacerbation 491.21 ; Tobacco abuse 305.1 ; Depression 311 and Hyperlipidemia 272.4 [facility] [address] [id number] [address] [place] [address] Dec, [facility] [address] [facility] [id number] [address] [place] [address] Nov, Lumbago 724.2 ; Diabetes thony litus without mention of complication, type II or unspecified type, not stated as uncontrolled 250.00 ; Essential hypertension, benign 401.1 ; Anxiety state, unspecified 300.00 ; Chronic pain 338.29 ; COPD with acute exacerbation 491.21 ; Tobacco abuse 305.1 and Depression 311 [facility] [address] [id number] [address] [place] [address] Nov, [facility] [address] [id number] [address] [place] [address] Nov, [facility] [address] [id number] [address] [place] [address] Nov, [facility] [address] [id number] [address] [place] [address] October, [facility] [address] [id number] [address] [place] [address] October, [facility] [address] [id number] [address] [place] [address] October, [facility] [address] [id number] [address] [place] [address] October, [facility] [address] [id number] [address] [place] [address] October, [facility] [address] [id number] [address] [place] [address] Sep, [facility] [address] [facility] [id number] [address] [place] [address] Sep, [facility] [address] [id number] [address] [place] [address], [place] [address] 13 Sep, 2014 [facility] [address] [id number] [address] [place] [address], [place] [address] 23 Aug, 2014 [facility] [address] [id number] [address] [place] [address], [place] [address] 23 Aug, 2014 [facility] [address] [id number] [address] [place] [address], [place] [address] 20 Aug, 2014 [facility] [address] [id number] [address] [place] [address], [place] [address] 20 Aug, 2014 [facility] [address] [id number] [address] [place] [address], [place] [address] 19 Aug, 2014 [facility] [address] [id number] [address] [place] [address], [place] [address] 19 Aug, 2014 [facility] [address] [id number] [address] [place] [address], [place] [address] 16 Aug, 2014 [facility] [address] [id number] [address] [place] [address], [place] [address] 16 Aug, 2014 [facility] [address] [id number] [address] [place] [address], [place] [address] 16 Aug, 2014 [facility] [address] [id number] [address] [place] [address], [place] [address] 16 Aug, 2014 [facility] [address] [id number] [address] [place] [address], [place] [address] 13 Aug, 2014 [facility] [address] [id number] [address] [place] [address], [place] [address] 13 Aug, 2014 [facility] [address] [id number] [address] [place] [address], [place] [address] 24 Jul, 2014 [facility] [address] [id number] [address] [place] [address], [place] [id number] 23 Jul, 2014 [facility] [address] [id number] [address] [place] [address], [place] [address] Jul, [facility] [address] [id number] [address] [place] [address], [place] [address] Jul, [facility] [address] [id number] [address] [place] [address], [place] [id number] Jul, [facility] [address] [id number] [address] [place] [address], [place] [address] Jul, [facility] [address] [id number] [address] [place] [address], [place] [address] Jul, [facility] [address] [id number] [address] [place] [address], [place] [address] Jun, [facility] [address] [id number] [address] [place] [address], [place] [address] Jun, [facility] [address] [id number] [address] [place] [address], [place] [address] Jun, [facility] [address] [id number] [address] [place] [address], [place] [address] Jun, [facility] [address] [id number] [address] [place] [address], [place] [address] Jun, [facility] [address] [id number] [address] [place] [address], [place] [address] Jun, [facility] [address] [id number] [address] [place] [address], [place] [address] Jun, [facility] [address] [id number] [address] [place] [address], [place] [address] Jun, [facility] [address] [id number] [address] [place] [address], [place] [address] Jun, [facility] [address] [id number] [address] [place] [address], [place] [address] May, [facility] [address] [id number] [address] [place] [address], [place] [address] May, [facility] [address] [id number] [address] [place] [address], [place] [address] 30 May, 2014 [facility] [address] [id number] [address] [place] [address], [place] [address] 30 May, 2014 [facility] [address] [id number] [address] [place] [address], [place] [address] 17 May, 2014 [facility] [address] [id number] [address] [place] [address], [place] [address] 15 May, 2014 [facility] [address] [id number] [address] [place] [address], [place] [address] 15 May, 2014 [facility] [address] [id number] [address] [place] [address], [place] [address] 12 May, 2014 [facility] [address] [id number] [address] [place] [address], [place] [address] May, [facility] [address] [id number] [address] [place] [address], [place] [address] May, [facility] [address] [id number] [address] [place] [address], [place] [address] May, [facility] [address] [id number] [address] [place] [address], [place] [address] Apr, [facility] [address] [id number] [address] [place] [address], [place] [address] Apr, [facility] [address] [id number] [address] [place] [address], [place] [address] Apr, [facility] [address] [id number] [address] [place] [address], [place] [address] Apr, [facility] [address] [id number] [address] [place] [address], [place] [address] 29 Mar, 2014 [facility] [address] [id number] [address] [place] [address], [place] [address] 29 Mar, 2014 [facility] [address] [id number] [address] [place] [address], [place] [address] Mar, [facility] [address] [id number] [address] [place] [address], [place] [address] 2014 [facility] [address] [id number] [address] [place] [address], [place] [address] Mar, [facility] [address] [id number] [address] [place] [address], [place] [address] Mar, [facility] [address] [id number] [address] [place] [address], [place] [address] 29 Feb, 2014 [facility] [address] [id number] [address] [place] [address], [place] [address] 29 Feb, 2014 [facility] [address] [id number] [address] [place] [address], [place] [address] 17 Feb, 2014 [facility] [address] [id number] [address] [place] [address], [place] [address] 16 Feb, 2014 [facility] [address] [id number] [address] [place] [address], [place] [address] 16 Feb, 2014 [facility] [address] [id number] [address] [place] [address], [place] [address] Feb, [facility] [address] [id number] [address] [place] [address], [place] [address] 03 Feb, 2014 [facility] [address] [id number] [address] [place] [address], [place] [address] Jan, [facility] [address] [id number] [address] [place] [address], [place] [address] Jan, [facility] [address] [id number] [address] [place] [address], [place] [address] Jan, [facility] [address] [id number] [address] [place] [address], [place] [address] Jan, [facility] [address] [id number] [address] [place] [address], [place] [address] Dec, [facility] [address] [id number] [address] [address] Dec, [facility] [address] [facility] [id number] [address] [place] [address] Dec, [facility] [address] [facility] [id number] [address] [place] [address] Dec, IMMUNIZATIONS No Known Immunizations SOCIAL HISTORY [...]
--- NOTE | 2019-10-29 01:36 | NUR ---
PERMISSION GRANTED BY THIS PATIENT TO SPEAK TO HER DAUGHTER MAIA SWANN . UPDATED DAUGHTER ON PATIENT CONDITION AND ADMISSION STATUS.
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
--- NOTE | 2019-10-29 02:10 | NUR ---
JOSE ENRIQUE Rachell admitted to room CU12-1, with an admitting diagnosis of ALTERED MENTAL STATUS, HYPONATREMA, COVID PUI, on 10/29/19 from ER via WHEELCHAIR, accompanied by CECELIA,KIRK AND KIRK BNEDER. ENRIQUE GARCIA introduced to surroundings, call light, bed controls, phone, TV, temperature control, lights, meal times, smoking policy, visitor policy, side rail policy, bathrooms and showers. Patient Rights given to patient in the handbook. ENRIQUE GARCIA verbalizes understanding that [facility] is not responsible for the loss or damage to any personal effects or valuables that are kept in the patients possession during their hospitalization. Patient informed about the Rapid Response Team and its purpose.
[2019-10-29 03:27] LABS: BASOPHILS % (AUTO) 0 % (0-10); EOSINOPHILS % (AUTO) 0 % (0-10); HEMATOCRIT 33 % (35-52); HEMOGLOBIN 11.1 G/DL (11.5-16.0); LYMPHOCYTES # (AUTO) 1.4 X 10^3 (1.0-4.0); LYMPHOCYTES % (AUTO) 22 % (12-44); MEAN CORPUSCULAR HEMOGLOBIN 33 PG (25-34); MEAN CORPUSCULAR HGB CONC 34 G/DL (32-36); MEAN CORPUSCULAR VOLUME 98 FL (80-99); MEAN PLATELET VOLUME 8.8 FL (7.4-10.4); MONOCYTES # (AUTO) 0.4 X 10^3 (0.0-1.0); MONOCYTES % (AUTO) 7 % (0-12); NEUTROPHILS # (AUTO) 4.3 X 10^3 (1.8-7.8); NEUTROPHILS % (AUTO) 70 % (42-75); PLATELET COUNT 224 10^3/uL (130-400); RED CELL DISTRIBUTION WIDTH 14.6 % (10.0-14.5); WHITE BLOOD COUNT 6.1 10^3/uL (4.3-11.0)
[2019-10-29 03:35] LABS: ALBUMIN 3.7 GM/DL (3.2-4.5); CHLORIDE 106 MMOL/L (98-107); POTASSIUM 4.6 MMOL/L (3.6-5.0)
[2019-10-29 03:36] LABS: SODIUM 135 MMOL/L (135-145)
[2019-10-29 03:38] LABS: GLUCOSE 109 MG/DL (70-105); TOTAL PROTEIN 5.9 GM/DL (6.4-8.2)
[2019-10-29 03:39] LABS: CARBON DIOXIDE 19 MMOL/L (21-32)
[2019-10-29 03:40] LABS: BILIRUBIN,TOTAL 0.2 MG/DL (0.1-1.0)
[2019-10-29 03:41] LABS: ALKALINE PHOSPHATASE 65 U/L (40-136); CREATININE SERUM 0.79 MG/DL (0.60-1.30); GFR ESTIMATED > 60
[2019-10-29 03:43] LABS: BUN/CREATININE RATIO 14
[2019-10-29 03:44] LABS: ALANINE AMINOTRANSFERASE 23 U/L (0-55)
[2019-10-29] MEDS: inSUlin ASPART (NovoLOG) 1 UNIT/0.01 ML (CHARGE PER UNIT) SC SCH ×2 (05:45→11:05)
--- NOTE | 2019-10-29 07:37 | Diagnostic Imaging Report ---
PROCEDURE: CT head wo r/o stroke. TECHNIQUE: Multiple contiguous axial images were obtained through the brain without the use of intravenous contrast. Auto Exposure Controls were utilized during the CT exam to meet ALARA standards for radiation dose reduction. INDICATION: Altered mental status Comparison is made to study of 08/20/2019 FINDINGS: Ventricles and sulci remain diffusely prominent however there is no evidence of abnormal mass effect or shift of midline structures. There is no evidence of hemorrhage. Calvarium is intact and the visualized paranasal sinuses are clear. IMPRESSION: Stable CT of brain without acute abnormality identified. Dictated by: Dictated on workstation # [id number]
--- NOTE | 2019-10-29 08:12 | Diagnostic Imaging Report ---
INDICATION: Altered mental status. AP upright view of the chest is obtained with comparison made to study of 08/22/2019. FINDINGS: Overall heart size and pulmonary vascularity are within normal limits. No pneumothorax or consolidation is identified. There is blunting of left costophrenic sulcus. IMPRESSION: Mild left basilar atelectasis or possible small amount of left pleural fluid. Otherwise no acute abnormality is seen. Dictated by: Dictated on workstation # [id number]
--- NOTE | 2019-10-29 10:38 | Short Stay Summary-Hospitalist ---
History of Present Illness HPI/Chief Complaint Pt is a 59yoCF with a PMH of COPD, NIDDMII, chronic pain who presented to the ER due to syncopal episode. She states she ate dinner and shortly afterwards developed cramping abdominal pain. She went to the bathroom to have a BM and get very sweaty. She then passed out. Her boyfriend found her and pressed her life alert button. She states she started to come to at home and then EMS brought her here. Narcan was administered without improvement. Not long after arrival she aroused and was alert and oriented x4. Due to unclear history COVID19 testing was performed. This morning she states she is feeling well and would like a drink. She is requesting discharge home. Source: patient Date Seen 10/29/19 Time Seen by a Provider: 10:25 Attending Physician Bharat Arroyo MD PCP No,Local Physician Referring Physician Date of Admission October 29, 2019 at 00:05 Home Medications & Allergies Home Medications Reviewed patient Home Medication Reconciliation performed by pharmacy medication reconciliations motorcycle service technician and/or nursing. Patients Allergies have been reviewed. Allergies Allergies Coded Allergies Influenza Virus Vaccines (Verified Allergy, Unknown, 08/26/19) tramadol (Unverified Allergy, Unknown, 11/22/16) Uncoded Allergies PNEUMONIA SHOT ( Allergy, Unknown, 11/22/16) Past Ctecrkk-Mfhjke-Ecdszb Hx Past Med/Social Hx: Reviewed Nursing Past Med/Soc Hx Patient Social History Alcohol Use: Denies Use Recreational Drug Use: Yes (BENZODIAZEPINE AND OPIATE EXCESSIVE USE/ABUSE/OVERDOSES) Drug of Choice: BENZODIAZEPINE AND OPIATE ABUSE/EXCESSIVE USE/OVERDOSES Smoking Status: Current Everyday Smoker Type Used: Cigarettes Recent Foreign Travel: No Contact w/other who traveled: No Recent Hopitalizations: Yes Recent Infectious Disease Expo: No Immunizations Up To Date Tetanus Booster (TDap): Unknown Pediatric: Yes Seasonal Allergies Seasonal Allergies: No Past Medical History Surgeries: Gallbladder, Hysterectomy, Orthopedic, Tonsillectomy, Tubal Ligation Respiratory: COPD Currently Using CPAP: No Cardiac: High Cholesterol, Hypertension Neurological: Headaches /Migraines Menopausal Gastrointestinal: Gastroesophageal Reflux, Gall Bladder Disease Musculoskeletal: Chronic Back Pain Endocrine: Diabetes, Non-Insulin dep Psychosocial: Anxiety, Depression History of Blood Disorders: No Family History Reviewed Nursing Family Hx No Pertinent Family Hx Review of Systems Constitutional: No chills; diaphoresis; No fever EENTM: mouth pain Respiratory: no symptoms reported Cardiovascular: syncope Gastrointestinal: abdominal pain, diarrhea; No nausea, No vomiting Genitourinary: no symptoms reported Musculoskeletal: no symptoms reported Skin: no symptoms reported Psychiatric/Neurological: No Symptoms Reported Physical Exam Physical Exam Vital Signs Vital Signs - First Documented Capillary Refill : Less Than 3 Seconds Height, Weight, BMI Height: 5'8.00" Weight: 220lbs. oz. 99.680082et; 42.81 BMI Method:Stated General Appearance: No Apparent Distress, Chronically ill, Obese HEENT: PERRL/EOMI, Moist Mucous Membranes; No Scleral Icterus (L), No Scleral Icterus (R) Neck: Normal Inspection, Supple; No JVD Respiratory: Lungs Clear, No Accessory Muscle Use, No Respiratory Distress Cardiovascular: Regular Rate, Rhythm, No Murmur, Normal Peripheral Pulses Gastrointestinal: Normal Bowel Sounds, Non Tender, Soft; No Distended, No Guarding Extremity: Normal Capillary Refill, Non Tender, No Pedal Edema Neurologic/Psychiatric: Alert, Oriented x3; No Aphasia, No Facial Droop Skin: Normal Color, Warm/Dry; No Rash Results Results/Procedures Labs Patient resulted labs reviewed. Imaging: Reviewed Imaging Report Imaging Date of Exam:10/28/19 CT HEAD WO-R/O STROKE PROCEDURE: CT head wo r/o stroke. TECHNIQUE: Multiple contiguous axial images were obtained through the brain without the use of intravenous contrast. Auto Exposure Controls were utilized during the CT exam to meet ALARA standards for radiation dose reduction. INDICATION: Altered mental status Comparison is made to study of 08/20/2019 FINDINGS: Ventricles and sulci remain diffusely prominent however there is no evidence of abnormal mass effect or shift of midline structures. There is no evidence of hemorrhage. Calvarium is intact and the visualized paranasal sinuses are clear. IMPRESSION: Stable CT of brain without acute abnormality identified. Short Stay Diagnosis Discharge Diagnosis-Short Stay Admission Diagnosis Syncope Final Discharge Diagnosis Syncope Conclusion Plan Syncope Monitored on telemetry and in NSR Likely vasovagal as it occurred during BM Now mentation back to normal COVID19 negative Can DC home with return precautions Clinical Quality Measures DVT/VTE Risk/Contraindication: Risk Factor Score Per Nursin RFS Level Per Nursing on Admit: 3=High ANTONIO MCCARTY MD October 29, 2019 10:38
--- NOTE | 2019-10-29 11:48 | Discharge Inst-Simple/Standard ---
Discharge Inst-Standard Patient Instructions/Follow Up Plan of Care/Instructions/FU: Please continue to take your medications as written. Please follow up with your primary care doctor in the next week. Activity as Tolerated: Yes Discharge Diet: No Restrictions Return to The Hospital For: Chest pain, shortness of breath, passing out, fever, confusion, if you feel you are getting worse. ANTONIO MCCARTY MD October 29, 2019 11:48
--- NOTE | 2019-10-29 12:12 | NUR ---
I REQUESTED A MED LIST FROM THE PATIENTS PCP ([facility]) AND THEY ARE FAXING IT OVER AT THIS TIME AFTER I RECEIVE THE FAX I WILL SPEAK WITH THE PT TO COMPLETE THE MED REC
[2019-10-29] MEDS ORDERED: ACETAMINOPHEN 325 MG TABLET ONE (13:46)
[2019-10-29] MEDS ORDERED: ACETAMINOPHEN 325 MG TABLET PO PRN (14:00)
[2019-10-30 14:26] LABS: PARAINFLU 1 PCR Not Detected (Not Detected); PARAINFLU 2 PCR Not Detected (Not Detected)
--- OUTSIDE RECORDS SUMMARY | 2019-12-04 16:25 | XMS REPORT | Continuity of Care Document ---
Author Organization Unknown Address Unknown Phone Unavailable Allergies Active Description Code Type Severity Reaction Onset Reported/Identified Relationship to Patient Clinical Status Yes No Known Drug Allergies [id number] Drug Allergy Unknown N/A 08/14/2012 Yes PNEUMONIA SHOT PNEUMONIA SHOT Unknown N/A 11/22/2016 Yes tramadol [id number] Drug Allergy Unknown N/A 11/22/2016 Yes Influenza Virus Vaccines [id number] Drug Allergy Unknown N/A 08/16/2019 Yes Influenza Virus Vaccines [id number] Drug Allergy Unknown N/A 08/16/2019 Yes No Allergy Information Available [id number] Drug Allergy Unknown N/A 020 Medications There is no data. Problems Date Dx Coded Attending Type Code Diagnosis Diagnosed By 05/23/1553 OSCAR MARTIN Ot M54. 2 CERVICALGIA 05/23/1553 OSCAR MARTIN Ot M54. 6 PAIN IN THORACIC SPINE 08/14/2012 Ot 724.2 LUMBAGO 01/12/2014 ADALBERTO JIN DO K 250.00 DIABETES MELLITUS WITHOUT MENTION OF COMPLICATION TYPE II OR UNSPECIFIED TYPE NOT STATED UNCONTROLLED 01/12/2014 ADALBERTO JIN DO K 272.4 OTHER AND UNSPECIFIED HYPERLIPIDEMIA 01/12/2014 ADALBERTO JIN DO K 300.00 ANXIETY UNSPEC 01/12/2014 ISABEL JIN DOA K 401.1 HYPERTENSION, BENIGN ESSENTIAL 01/12/2014 DAVIN MARQUEZ ADALBERTO K 724.2 LUMBAGO 01/12/2014 MADL PAPER ROLL MACHINE OPERATOR, ANGE L 250 .00 DIABETES MELLITUS WITHOUT MENTION OF COMPLICATION TYPE II OR UNSPECIFIED TYPE NOT STATED UNCONTROLLED 01/12/2014 MADL PAPER ROLL MACHINE OPERATOR, ANGE L 272 .4 OTHER AND UNSPECIFIED HYPERLIPIDEMIA 01/12/2014 MADL PAPER ROLL MACHINE OPERATOR, ANGE L 300 .00 ANXIETY UNSPEC 01/12/2014 MADL PAPER ROLL MACHINE OPERATOR, ANGE L 401 .1 HYPERTENSION, BENIGN ESSENTIAL 01/12/2014 MADL PAPER ROLL MACHINE OPERATOR, ANGE L 724 .2 LUMBAGO 01/12/2014 MADL PAPER ROLL MACHINE OPERATOR, ANGE L 250 .00 DIABETES MELLITUS WITHOUT MENTION OF COMPLICATION TYPE II OR UNSPECIFIED TYPE NOT STATED UNCONTROLLED 01/12/2014 MADL PAPER ROLL MACHINE OPERATOR, ANGE L 272 .4 OTHER AND UNSPECIFIED HYPERLIPIDEMIA 01/12/2014 MADL PAPER ROLL MACHINE OPERATOR, ANGE L 300 .00 ANXIETY UNSPEC 01/12/2014 MADL PAPER ROLL MACHINE OPERATOR, ANGE L 401 .1 HYPERTENSION, BENIGN ESSENTIAL 01/12/2014 MADL PAPER ROLL MACHINE OPERATOR, ANGE L 724 .2 LUMBAGO 01/12/2014 JIN DO, ADALBERTO K 250.00 DIABETES MELLITUS WITHOUT MENTION OF COMPLICATION TYPE II OR UNSPECIFIED TYPE NOT STATED UNCONTROLLED 01/12/2014 JIN DO, ADALBERTO K 272.4 OTHER AND UNSPECIFIED HYPERLIPIDEMIA 01/12/2014 JIN DO, ADALBERTO K 300.00 ANXIETY UNSPEC 01/12/2014 JIN DO, ADALBERTO K 401.1 HYPERTENSION, BENIGN ESSENTIAL 01/12/2014 JIN DO, ADALBERTO K 724.2 LUMBAGO 01/12/2014 MADL PAPER ROLL MACHINE OPERATOR, ANGE L 250 .00 DIABETES MELLITUS WITHOUT MENTION OF COMPLICATION TYPE II OR UNSPECIFIED TYPE NOT STATED UNCONTROLLED 01/12/2014 MADL PAPER ROLL MACHINE OPERATOR, ANGE L 272 .4 OTHER AND UNSPECIFIED HYPERLIPIDEMIA 01/12/2014 MADL PAPER ROLL MACHINE OPERATOR, ANGE L 300 .00 ANXIETY UNSPEC 01/12/2014 MADL PAPER ROLL MACHINE OPERATOR, ANGE L 401 .1 HYPERTENSION, BENIGN ESSENTIAL 01/12/2014 MADL PAPER ROLL MACHINE OPERATOR, ANGE L 724 .2 LUMBAGO 01/12/2014 JIN DO, ADALBERTO K 250.00 DIABETES MELLITUS WITHOUT MENTION OF COMPLICATION TYPE II OR UNSPECIFIED TYPE NOT STATED UNCONTROLLED 01/12/2014 JIN DO, ADALBERTO K 272.4 OTHER AND UNSPECIFIED HYPERLIPIDEMIA 01/12/2014 JIN DO, ADALBERTO K 300.00 ANXIETY UNSPEC 01/12/2014 JIN DO, ADALBERTO K 401.1 HYPERTENSION, BENIGN ESSENTIAL 01/12/2014 JIN DO, ADALBERTO K 724.2 LUMBAGO 01/12/2014 MADL PAPER ROLL MACHINE OPERATOR, ANGE L 250 .00 DIABETES MELLITUS WITHOUT MENTION OF COMPLICATION TYPE II OR UNSPECIFIED TYPE NOT STATED UNCONTROLLED 01/12/2014 MADL PAPER ROLL MACHINE OPERATOR, ANGE L 272 .4 OTHER AND UNSPECIFIED HYPERLIPIDEMIA 01/12/2014 MADL PAPER ROLL MACHINE OPERATOR, ANGE L 300 .00 ANXIETY UNSPEC 01/12/2014 MADL PAPER ROLL MACHINE OPERATOR, ANGE L 401 .1 HYPERTENSION, BENIGN ESSENTIAL 01/12/2014 MADL PAPER ROLL MACHINE OPERATOR, ANGE L 724 .2 LUMBAGO 01/12/2014 JIN DO, ADALBERTO K 250.00 DIABETES MELLITUS WITHOUT MENTION OF COMPLICATION TYPE II OR UNSPECIFIED TYPE NOT STATED UNCONTROLLED 01/12/2014 JIN DO, ADALBERTO K 272.4 OTHER AND UNSPECIFIED HYPERLIPIDEMIA 01/12/2014 JIN DO, ADALBERTO K 300.00 ANXIETY UNSPEC 01/12/2014 JIN DO, ADALBERTO K 401.1 HYPERTENSION, BENIGN ESSENTIAL 01/12/2014 JIN DO, ADALBERTO K 724.2 LUMBAGO 01/12/2014 MADL PAPER ROLL MACHINE OPERATOR, ANGE L 250 .00 DIABETES MELLITUS WITHOUT MENTION OF COMPLICATION TYPE II OR UNSPECIFIED TYPE NOT STATED UNCONTROLLED 01/12/2014 MADL PAPER ROLL MACHINE OPERATOR, NAGE L 272 .4 OTHER AND UNSPECIFIED HYPERLIPIDEMIA 01/12/2014 MADL PAPER ROLL MACHINE OPERATOR, ANGE L 300 .00 ANXIETY UNSPEC 01/12/2014 MADL PAPER ROLL MACHINE OPERATOR, ANGE L 401 .1 HYPERTENSION, BENIGN ESSENTIAL 01/12/2014 MADL PAPER ROLL MACHINE OPERATOR, ANGE L 724 .2 LUMBAGO 01/12/2014 MADL PAPER ROLL MACHINE OPERATOR, ANGE L 250 .00 DIABETES MELLITUS WITHOUT MENTION OF COMPLICATION TYPE II OR UNSPECIFIED TYPE NOT STATED UNCONTROLLED 01/12/2014 MADL PAPER ROLL MACHINE OPERATOR, ANGE L 272 .4 OTHER AND UNSPECIFIED HYPERLIPIDEMIA 01/12/2014 MADL PAPER ROLL MACHINE OPERATOR, ANGE L 300 .00 ANXIETY UNSPEC 01/12/2014 MADL PAPER ROLL MACHINE OPERATOR, ANGE L 311 DEPRESSIVE DISORDER NOT ELSEWHERE CLASSIFIED 01/12/2014 MADL PAPER ROLL MACHINE OPERATOR, ANGE L 401 .1 HYPERTENSION, BENIGN ESSENTIAL 01/12/2014 MADL PAPER ROLL MACHINE OPERATOR, ANGE L 724 .2 LUMBAGO 01/12/2014 FILIPPO RAYO PHD 250.00 DIABETES MELLITUS WITHOUT MENTION OF COM PLICATION TYPE II OR UNSPECIFIED TYPE NOT STATED UNCONTROLLED 01/12/2014 FILIPPO RAYO PHD 272.4 OTHER AND UNSPECIFIED HYPERLIPIDEMIA 01/12/2014 FIILPPO RAYO PHD 300.00 ANXIETY UNSPEC 01/12/2014 FILIPPO RAYO PHD 311 DEPRESSIVE DISORDER NOT ELSEWHERE CLASSIFIED 01/12/2014 PERRI PHD, FILIPPO Crain 401.1 HYPERTENSION, BENIGN ESSENTIAL 01/12/2014 FILIPPO RAYO PHD 724.2 LUMBAGO 03/09/2014 MADL PAPER ROLL MACHINE OPERATOR, ANGE L 112 .0 CANDIDIASIS OF MOUTH 03/09/2014 MADL PAPER ROLL MACHINE OPERATOR, ANGE L 461 .9 SINUSITIS ACUTE 03/09/2014 JIN DO, ADALBERTO K 112.0 CANDIDIASIS OF MOUTH 03/09/2014 JIN DO, ADALBERTO K 461.9 SINUSITIS ACUTE 03/09/2014 MADL PAPER ROLL MACHINE OPERATOR, ANGE L 112 .0 CANDIDIASIS OF MOUTH 03/09/2014 MADL PAPER ROLL MACHINE OPERATOR, ANGE L 461 .9 SINUSITIS ACUTE 03/09/2014 JIN DO, ADALBERTO K 112.0 CANDIDIASIS OF MOUTH 03/09/2014 JIN DO, ADALBERTO K 461.9 SINUSITIS ACUTE 03/09/2014 MADL PAPER ROLL MACHINE OPERATOR, ANGE L 112 .0 CANDIDIASIS OF MOUTH 03/09/2014 MADL PAPER ROLL MACHINE OPERATOR, ANGE L 461 .9 SINUSITIS ACUTE 03/09/2014 JIN DO, ADALBERTO K 112.0 CANDIDIASIS OF MOUTH 03/09/2014 JIN DO, ADALBERTO K 461.9 SINUSITIS ACUTE 03/09/2014 MADL PAPER ROLL MACHINE OPERATOR, ANGE L 112 .0 CANDIDIASIS OF MOUTH 03/09/2014 MADL PAPER ROLL MACHINE OPERATOR, ANGE L 461 .9 SINUSITIS ACUTE 03/09/2014 MADL PAPER ROLL MACHINE OPERATOR, ANGE L 112 .0 CANDIDIASIS OF MOUTH 03/09/2014 MADL PAPER ROLL MACHINE OPERATOR, ANGE L 461 .9 SINUSITIS ACUTE 03/09/2014 FILIPPO RAYO PHD 112.0 CANDIDIASIS OF MOUTH 03/09/2014 FILIPPO RAYO PHD 461.9 SINUSITIS ACUTE 06/03/2014 JIN DO, ADALBERTO K 356.9 UNSPECIFIED IDIOPATHIC PERIPHERAL NEUROPATHY 06/03/2014 JIN DO, ADALBERTO K 780.4 DIZZINESS AND GIDDINESS 06/03/2014 JIN DO, ADALBERTO K 784.0 HEADACHE 06/03/2014 MADL PAPER ROLL MACHINE OPERATOR, ANGE L 356 .9 UNSPECIFIED IDIOPATHIC PERIPHERAL NEUROPATHY 06/03/2014 MADL PAPER ROLL MACHINE OPERATOR, ANGE L 780 .4 DIZZINESS AND GIDDINESS 06/03/2014 MADL PAPER ROLL MACHINE OPERATOR, ANGE L 784 .0 HEADACHE 06/03/2014 JIN DO, ADALBERTO K 356.9 UNSPECIFIED IDIOPATHIC PERIPHERAL NEUROPATHY 06/03/2014 JIN DO, ADALBERTO K 780.4 DIZZINESS AND GIDDINESS 06/03/2014 JIN DO, ADALBERTO K 784.0 HEADACHE 06/03/2014 MADL PAPER ROLL MACHINE OPERATOR, ANGE L 356 .9 UNSPECIFIED IDIOPATHIC PERIPHERAL NEUROPATHY 06/03/2014 MADL PAPER ROLL MACHINE OPERATOR, ANGE L 780 .4 DIZZINESS AND GIDDINESS 06/03/2014 MADL PAPER ROLL MACHINE OPERATOR, ANGE L 784 .0 HEADACHE 06/03/2014 MADL PAPER ROLL MACHINE OPERATOR, ANGE L 356 .9 UNSPECIFIED IDIOPATHIC PERIPHERAL NEUROPATHY 06/03/2014 MADL PAPER ROLL MACHINE OPERATOR, ANGE L 780 .4 DIZZINESS AND GIDDINESS 06/03/2014 MADL PAPER ROLL MACHINE OPERATOR, ANGE L 784 .0 HEADACHE 06/03/2014 FILIPPO RAYO PHD 356.9 UNSPECIFIED IDIOPATHIC PERIPHERAL NEUROPATHY 06/03/2014 FILIPPO RAYO PHD 780.4 DIZZINESS AND GIDDINESS 06/03/2014 FILIPPO RAYO PHD 784.0 HEADACHE 06/20/2014 PHILIP GILMORE APRN Ot 054 .2 HERPETIC GINGIVOSTOMAT 06/20/2014 PHILIP GILMORE APRN Ot 525 .9 DENTAL DISORDER NOS 06/22/2014 MADL PAPER ROLL MACHINE OPERATOR, ANGE L 054 .2 HERPETIC GINGIVOSTOMATITIS 06/22/2014 ISABEL JIN DOA K 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ITIS 06/22/2014 MADL PAPER ROLL MACHINE OPERATOR, ANGE L 054 .2 HERPETIC GINGIVOSTOMATITIS 06/22/2014 MADL PAPER ROLL MACHINE OPERATOR, ANEG L 054 .2 HERPETIC GINGIVOSTOMATITIS 06/22/2014 PERRI BHATIA, FILIPPO Crain 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ITIS 07/06/2014 DAVIN MARQUEZ ADALBERTO K 959.19 OTHER AND UNSPECIFIED INJURY OF OTHER SITES OF TRUNK 07/06/2014 DAVIN MARQUEZ ADALBERTO K V04.81 FLU SHOT 07/06/2014 MADGhassan PAPER ROLL MACHINE OPERATOR, ANGE L 959 .19 OTHER AND UNSPECIFIED INJURY OF OTHER SITES OF TRUNK 07/06/2014 ANGELES JINNANGE L V04 .81 FLU SHOT 07/06/2014 APRIL REYNOSO APRNA L 959 .19 OTHER AND UNSPECIFIED INJURY OF OTHER SITES OF TRUNK 07/06/2014 ANGELES JINN, ANGE L V04 .81 FLU SHOT 07/06/2014 PERIR BHATIA, FILIPPO Crain 959.19 OTHER AND UNSPECIFIED INJURY OF OTHER SITES OF TRUNK 07/06/2014 PERRI BHATIA, FILIPPO Crain V04.81 FLU SHOT 09/03/2014 ANGE REYNOSO APRN L 719 .46 PAIN IN JOINT INVOLVING LOWER LEG 09/03/2014 PERRI BHATIA, FILIPPO Crain 719.46 PAIN IN JOINT INVOLVING LOWER LEG 10/04/2014 PERRI BHATIA, FILIPPO Crain 296.20 MAJOR DEPRESSIVE AFFECTIVE DISORDER SING LE EPISODE UNSPECIFIED DEGREE 06/23/2015 PHILIP GILMORE APRN Ot F17.210 NICOTINE DEPENDENCE, CIGARETTES, UNCOMPL 06/23/2015 PHILIP GILMORE APRN Ot J18 .9 PNEUMONIA, UNSPECIFIED ORGANISM 06/23/2015 PHILIP GILMORE APRN Ot J44 .9 CHRONIC OBSTRUCTIVE PULMONARY DISEASE, U 06/13/2016 GINI MULTANI MD Ot E11. 9 TYPE 2 DIABETES MELLITUS WITHOUT COMPLIC 06/13/2016 GINI MULTANI MD, Ot G89. 29 OTHER CHRONIC PAIN 06/13/2016 GINI MULTANI MD, Ot J44. 9 CHRONIC OBSTRUCTIVE PULMONARY DISEASE, U 06/13/2016 GINI MULTANI MD, Ot M54. 5 LOW BACK PAIN 06/13/2016 GINI MULTANI MD, Ot Z79. 84 LIME KILN OPERATOR (CURRENT) USE OF ORAL HYPOGLYC 06/13/2016 GINI MULTANI MD Ot Z79.899 OTHER LIME KILN OPERATOR (CURRENT) DRUG THERAPY 06/14/2016 GINI MULTANI MD Ot E11. 9 TYPE 2 DIABETES MELLITUS WITHOUT COMPLIC 06/14/2016 GINI MULTANI MD, Ot G89. 29 OTHER CHRONIC PAIN 06/14/2016 GINI MULTANI MD, Ot J44. 9 CHRONIC OBSTRUCTIVE PULMONARY DISEASE, U 06/14/2016 GINI MULTANI MD, Ot M54. 5 LOW BACK PAIN 06/14/2016 GINI MULTANI MD, Ot Z79. 84 LIME KILN OPERATOR (CURRENT) USE OF ORAL HYPOGLYC 06/14/2016 GINI MULTANI MD, Ot Z79.899 OTHER LIME KILN OPERATOR (CURRENT) DRUG THERAPY 06/15/2016 GINI MULTANI MD A Ot E11. 9 TYPE 2 DIABETES MELLITUS WITHOUT COMPLIC 06/15/2016 GINI MULTANI MD A Ot G89. 29 OTHER CHRONIC PAIN 06/15/2016 GINI MULTANI MD A Ot J44. 9 CHRONIC OBSTRUCTIVE PULMONARY DISEASE, U 06/15/2016 GINI MULTANI MD A Ot M54. 5 LOW BACK PAIN 06/15/2016 GINI MULTANI MD A Ot Z79. 84 HALF-WAY (CURRENT) USE OF ORAL HYPOGLYC 06/15/2016 GINI MULTANI MD A Ot Z79.899 OTHER HALF-WAY (CURRENT) DRUG THERAPY 11/22/2016 PHILIP GILMORE PAPER ROLL MACHINE OPERATOR Ot E11 .9 TYPE 2 DIABETES MELLITUS WITHOUT COMPLIC 11/22/2016 PHILIP GILMORE PAPER ROLL MACHINE OPERATOR Ot F17.210 NICOTINE DEPENDENCE, CIGARETTES, UNCOMPL 11/22/2016 PHILIP GILMORE PAPER ROLL MACHINE OPERATOR Ot G89.29 OTHER CHRONIC PAIN 11/22/2016 PHILIP GILMORE PAPER ROLL MACHINE OPERATOR Ot I10 ESSENTIAL (PRIMARY) HYPERTENSION 11/22/2016 PHILIP GILMORE PAPER ROLL MACHINE OPERATOR Ot J44 .9 CHRONIC OBSTRUCTIVE PULMONARY DISEASE, U 11/22/2016 PHILIP GILMORE PAPER ROLL MACHINE OPERATOR Ot M54 .5 LOW BACK PAIN 11/22/2016 PHILIP GILMORE PAPER ROLL MACHINE OPERATOR Ot Z79.84 HALF-WAY (CURRENT) USE OF ORAL HYPOGLYC 11/22/2016 PHILIP GILMORE PAPER ROLL MACHINE OPERATOR Ot Z79.899 OTHER LIME KILN OPERATOR (CURRENT) DRUG THERAPY 11/25/2016 PHILIP GILMORE APRN Ot E11 .9 TYPE 2 DIABETES MELLITUS WITHOUT COMPLIC 11/25/2016 PHILIP GILMORE PAPER ROLL MACHINE OPERATOR Ot F17.210 NICOTINE DEPENDENCE, CIGARETTES, UNCOMPL 11/25/2016 PHILIP GILMORE PAPER ROLL MACHINE OPERATOR Ot G89.29 OTHER CHRONIC PAIN 11/25/2016 PHILIP GILMORE PAPER ROLL MACHINE OPERATOR Ot I10 ESSENTIAL (PRIMARY) HYPERTENSION 11/25/2016 PHILIP GILMORE PAPER ROLL MACHINE OPERATOR Ot J44 .9 CHRONIC OBSTRUCTIVE PULMONARY DISEASE, U 11/25/2016 PHILIP GILMORE PAPER ROLL MACHINE OPERATOR Ot M54 .5 LOW BACK PAIN 11/25/2016 PHILIP GILMORE PAPER ROLL MACHINE OPERATOR Ot Z79.84 HALF-WAY (CURRENT) USE OF ORAL HYPOGLYC 11/25/2016 PHILIP GILMORE APRN Ot Z79.899 OTHER LIME KILN OPERATOR (CURRENT) DRUG THERAPY 11/25/2016 CODY WARE MD [...] RELAXANTS, 11/25/2016 CODY WARE MD Ot Z79.84 HALF-WAY (CURRENT) USE OF ORAL HYPOGLYC 11/25/2016 CODY WARE MD Ot Z79.899 OTHER HALF-WAY (CURRENT) DRUG THERAPY 11/25/2016 CODY WARE MD [...] RELAXANTS, 11/25/2016 CODY WARE MD Ot Z79.84 LIME KILN OPERATOR (CURRENT) USE OF ORAL HYPOGLYC 11/25/2016 CODY WARE MD Ot Z79.899 OTHER LIME KILN OPERATOR (CURRENT) DRUG THERAPY 12/11/2016 PAMELA SHARPE DO Ot M54.16 RADICULOPATHY, LUMBAR REGION 12/11/2016 PAMELA SHARPE DO Ot M54.16 RADICULOPATHY, LUMBAR REGION 12/11/2016 PAMELA SHARPE DO Ot M54.16 RADICULOPATHY, LUMBAR REGION 01/03/2017 PAMELA SHARPE DO Ot M47.816 SPONDYLOSIS W/O MYELOPATHY OR RADICULOPA 01/07/2017 PAMELA SHARPE DO Ot M54.16 RADICULOPATHY, LUMBAR REGION 02/04/2017 SRUTHI SCHUMACHER DO Ot G89.29 OTHER CHRONIC PAIN 02/04/2017 SRUTHI SCHUMACHER DO, Ot M79.605 PAIN IN LEFT LEG 02/04/2017 SRUTHI SCHUMACHER DO, Ot M79.89 OTHER SPECIFIED SOFT TISSUE DISORDERS 02/04/2017 SRUTHI SCHUMACHER DO Ot Z98.890 OTHER SPECIFIED POSTPROCEDURAL STATES 02/10/2017 SRUTHI SCHUMACHER DO Ot G89.29 OTHER CHRONIC PAIN 02/10/2017 SRUTHI SCHUMACHER DO Ot M79.605 PAIN IN LEFT LEG 02/10/2017 SRUTHI SCHUMACHER DO Ot M79.89 OTHER SPECIFIED SOFT TISSUE DISORDERS 02/10/2017 SRUTHI SCHUMACHER DO Ot Z98.890 OTHER SPECIFIED POSTPROCEDURAL STATES 05/02/2017 PAMELA SHARPE DO Joseph Ot M47.816 SPONDYLOSIS W/O MYELOPATHY OR RADICULOPA 05/24/2017 SWEET PA, OSCAR R Ot M47.814 SPONDYLOSIS W/O MYELOPATHY OR RADICULOPA 05/24/2017 SWEET PA, OSCAR R Ot 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 2 CERVICALGIA 06/12/2017 SWEET PA, OSCAR R Ot M54. 2 CERVICALGIA 06/12/2017 SWEET PA, OSCAR R Ot M54. 6 PAIN IN THORACIC SPINE 07/22/2017 SWEET PA, OSCAR R Ot M54. 2 CERVICALGIA 07/22/2017 SWEET PA, OSCAR R Ot M54. 6 PAIN IN THORACIC SPINE 08/01/2017 ANDRE WINTER Ot E11.9 TYPE 2 DIABETES MELLITUS WITHOUT COMPLIC 08/01/2017 ANDRE WINTER Ot E78.00 PURE HYPERCHOLESTEROLEMIA, UNSPECIFIED 08/01/2017 ANDRE WINTER Ot F32.9 MAJOR DEPRESSIVE DISORDER, SINGLE EPISOD 08/01/2017 ANDRE WINTER Ot F41.9 ANXIETY DISORDER, UNSPECIFIED 08/01/2017 ANDRE WINTER Ot G43.909 MIGRAINE, UNSP, NOT INTRACTABLE, WITHOUT 08/01/2017 ANDRE WINTER Ot I 10 ESSENTIAL (PRIMARY) HYPERTENSION 08/01/2017 ANDRE WINTER Ot J10.1 FLU DUE TO OT IDENT INFLUENZA VIRUS W O 08/01/2017 ANDRE WINTER Ot J44.9 CHRONIC OBSTRUCTIVE PULMONARY DISEASE, U 08/01/2017 ANDRE WINTER Ot K21.9 GASTRO-ESOPHAGEAL REFLUX DISEASE WITHOUT 08/01/2017 ANDRE WINTER Ot R 05 COUGH 08/01/2017 ANDRE WINTER Ot Z79.52 HALF-WAY (CURRENT) USE OF SYSTEMIC STER 08/01/2017 ANDRE WINTER Ot Z88.8 ALLERGY STATUS TO [facility] DRUG/MEDS/BIOL SUB 08/01/2017 ANDRE WINTER Ot Z90.710 ACQUIRED ABSENCE OF BOTH CERVIX AND UTER 08/01/2017 ANDRE WINTER Ot Z90.89 ACQUIRED ABSENCE OF OTHER ORGANS 08/01/2017 ANDRE WINTER Ot Z98.51 TUBAL LIGATION STATUS 08/02/2017 OSCAR MARTIN R Ot M54. 2 CERVICALGIA 08/02/2017 OSCAR MARTIN R Ot M54. 6 PAIN IN THORACIC SPINE 08/05/2017 ANDRE WINTER Ot E11.9 TYPE 2 DIABETES MELLITUS WITHOUT COMPLIC 08/05/2017 ANDRE WINTER Ot E78.00 PURE HYPERCHOLESTEROLEMIA, UNSPECIFIED 08/05/2017 ANDRE WINTER Ot F32.9 MAJOR DEPRESSIVE DISORDER, SINGLE EPISOD 08/05/2017 ANDRE WINTER Ot F41.9 ANXIETY DISORDER, UNSPECIFIED 08/05/2017 ANDRE WINTER Ot G43.909 MIGRAINE, UNSP, NOT INTRACTABLE, WITHOUT 08/05/2017 ANDRE WINTER Ot I 10 ESSENTIAL (PRIMARY) HYPERTENSION 08/05/2017 ANDRE WINTER Ot J10.1 FLU DUE TO [facility] IDENT INFLUENZA VIRUS W O 08/05/2017 ANDRE WINTER Ot J44.9 CHRONIC OBSTRUCTIVE PULMONARY DISEASE, U 08/05/2017 ANDRE WINTER Ot K21.9 GASTRO-ESOPHAGEAL REFLUX DISEASE WITHOUT 08/05/2017 ANDRE WINTER Ot R 05 COUGH 08/05/2017 ANDRE WINTER Ot Z79.52 HALF-WAY (CURRENT) USE OF SYSTEMIC STER 08/05/2017 ANDRE WINTER Ot Z88.8 ALLERGY STATUS TO [facility] DRUG/MEDS/BIOL SUB 08/05/2017 ANDRE WINTER Ot Z90.710 ACQUIRED ABSENCE OF BOTH CERVIX AND UTER 08/05/2017 ANDRE WINTER Ot Z90.89 ACQUIRED ABSENCE OF OTHER ORGANS 08/05/2017 ANDRE WINTER Ot Z98.51 TUBAL LIGATION STATUS 12/09/2017 LIZZETTE CAMP MD Ot G93.8 9 OTHER SPECIFIED DISORDERS OF BRAIN 12/09/2017 LIZZETTE CAMP MD Ot I63.9 CEREBRAL INFARCTION, UNSPECIFIED 12/09/2017 LIZZETTE CAMP MD Ot R47.8 1 SLURRED SPEECH 12/10/2017 LIZZETTE CAMP MD Ot G93.8 9 OTHER SPECIFIED DISORDERS OF BRAIN 12/10/2017 LIZZETTE CAMP MD Ot I63.9 CEREBRAL INFARCTION, UNSPECIFIED 12/10/2017 LIZZETTE CAMP MD Ot R47.8 1 SLURRED SPEECH 12/14/2017 LIZZETTE CAMP MD Ot G93.8 9 OTHER SPECIFIED DISORDERS OF BRAIN 12/14/2017 LIZZETTE CAMP MD Ot I63.9 CEREBRAL INFARCTION, UNSPECIFIED 12/14/2017 LIZZETTE CAMP MD Ot R47.8 1 SLURRED SPEECH 12/19/2017 LIZZETTE CAMP MD Ot G93.8 9 OTHER SPECIFIED DISORDERS OF BRAIN 12/19/2017 LIZZETTE CAMP MD Ot I63.9 CEREBRAL INFARCTION, UNSPECIFIED 12/19/2017 LIZZETTE CAMP MD Ot R47.8 1 SLURRED SPEECH 01/01/2018 LIZZETTE CAMP MD Ot G93.8 9 OTHER SPECIFIED DISORDERS OF BRAIN 01/01/2018 LIZZETTE CAMP MD Ot I63.9 CEREBRAL INFARCTION, UNSPECIFIED 01/01/2018 LIZZETTE CAMP MD Ot R47.8 1 SLURRED SPEECH 01/01/2018 PAMELA SHARPE DO M Ot M47.816 SPONDYLOSIS W/O MYELOPATHY OR RADICULOPA 01/01/2018 OSCAR MARTIN Ot M47.814 SPONDYLOSIS W/O MYELOPATHY OR RADICULOPA 01/01/2018 SWEET PA, OSCAR R Ot 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 2 CERVICALGIA 01/01/2018 LIZZETTE CAMP MD Ot G93.8 9 OTHER SPECIFIED DISORDERS OF BRAIN 01/01/2018 LIZZETTE CAMP MD Ot I63.9 CEREBRAL INFARCTION, UNSPECIFIED 01/01/2018 LIZZETTE CAMP MD Ot R47.8 1 SLURRED SPEECH 01/02/2018 LIZZETTE CAMP MD Ot G93.8 9 OTHER SPECIFIED DISORDERS OF BRAIN 01/02/2018 LIZZETTE CAMP MD Ot I63.9 CEREBRAL INFARCTION, UNSPECIFIED 01/02/2018 LIZZETTE CAMP MD Ot R47.8 1 SLURRED SPEECH 01/08/2018 LIZZETTE CAMP MD Ot G93.8 9 OTHER SPECIFIED DISORDERS OF BRAIN 01/08/2018 LIZZETTE CAMP MD Ot I63.9 CEREBRAL INFARCTION, UNSPECIFIED 01/08/2018 LIZZETTE CAMP MD Ot R47.8 1 SLURRED SPEECH 02/27/2018 LIZZETTE CAMP MD Ot G93.8 9 OTHER SPECIFIED DISORDERS OF BRAIN 02/27/2018 LIZZETTE CAMP MD Ot I63.9 CEREBRAL INFARCTION, UNSPECIFIED 02/27/2018 LIZZETTE CAMP MD Ot R47.8 1 SLURRED SPEECH 08/16/2019 PAMELA SHARPE DO Ot M47.816 SPONDYLOSIS W/O MYELOPATHY OR RADICULOPA 08/16/2019 SWEET PA, OSCAR R Ot M47.814 SPONDYLOSIS W/O MYELOPATHY OR RADICULOPA 08/16/2019 SWEET PA, OSCAR R Ot M51. 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, 08/16/2019 SWEET PA, OSCAR R Ot M54. 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, 08/16/2019 SWEET PA, OSCAR R Ot M54. 2 CERVICALGIA 08/17/2019 PAMELA SHARPE DO M Ot M47.816 SPONDYLOSIS W/O MYELOPATHY OR RADICULOPA 08/17/2019 SWEET PA, OSCAR R Ot M47.814 SPONDYLOSIS W/O MYELOPATHY OR RADICULOPA 08/17/2019 SWEET PA, OSCAR R Ot M51. 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, 08/17/2019 SWEET PA, OSCAR R Ot M54. 2 CERVICALGIA 08/17/2019 LIZZETTE CAMP MD Ot G93.8 9 OTHER SPECIFIED DISORDERS OF BRAIN 08/17/2019 LIZZETTE CAMP MD Ot I63.9 CEREBRAL INFARCTION, UNSPECIFIED 08/17/2019 LIZZETTE CAMP MD Ot R47.8 1 SLURRED SPEECH 08/19/2019 CEDRICK SALVADOR MD Ot A41. 9 SEPSIS, UNSPECIFIED ORGANISM 08/19/2019 CEDRICK SALVADOR MD Ot E11. 9 TYPE 2 DIABETES MELLITUS WITHOUT COMPLIC 08/19/2019 CEDRICK SALVADOR MD Ot E87. 1 HYPO-OSMOLALITY AND HYPONATREMIA 08/19/2019 CEDRICK SALVADOR MD Ot F17.210 NICOTINE DEPENDENCE, CIGARETTES, UNCOMPL 08/19/2019 CEDRICK SALVADOR MD Ot G93. 41 METABOLIC ENCEPHALOPATHY 08/19/2019 CEDRICK SALVADOR MD Ot I10 ESSENTIAL (PRIMARY) HYPERTENSION 08/19/2019 CEDRICK SALVADOR MD Ot I95. 9 HYPOTENSION, UNSPECIFIED 08/19/2019 CEDRICK SALVADOR MD Ot J18. 9 PNEUMONIA, UNSPECIFIED ORGANISM 08/19/2019 CEDRICK SALVADOR MD Ot J44. 9 CHRONIC OBSTRUCTIVE PULMONARY DISEASE, U 08/19/2019 CEDRICK SALVADOR MD Ot J96. 01 ACUTE RESPIRATORY FAILURE WITH HYPOXIA 08/19/2019 CEDRICK SALVADOR MD Ot K52. 9 NONINFECTIVE GASTROENTERITIS AND COLITIS 08/19/2019 CEDRICK SALVADOR MD Ot M54. 9 DORSALGIA, UNSPECIFIED 08/19/2019 CEDRICK SALVADOR MD Ot R19. 5 OTHER FECAL ABNORMALITIES 08/19/2019 CEDRICK SALVADOR MD Ot R40. 1 STUPOR 08/19/2019 CEDRICK SALVADOR MD Ot R65. 21 SEVERE SEPSIS WITH SEPTIC SHOCK 08/19/2019 CEDRICK SALVADOR MD Ot Z79. 4 HALF-WAY (CURRENT) USE OF INSULIN 08/20/2019 CEDRICK SALVADOR MD Ot A41. 9 SEPSIS, UNSPECIFIED ORGANISM 08/20/2019 CEDRICK SALVADOR MD Ot E11. 9 TYPE 2 DIABETES MELLITUS WITHOUT COMPLIC 08/20/2019 CEDRICK SALVADOR MD Ot E87. 1 HYPO-OSMOLALITY AND HYPONATREMIA 08/20/2019 CEDRICK SALVADOR MD Ot F17.210 NICOTINE DEPENDENCE, CIGARETTES, UNCOMPL 08/20/2019 CEDRICK SALVADOR MD Ot G93. 41 METABOLIC ENCEPHALOPATHY 08/20/2019 CEDRICK SALVADOR MD Ot I10 ESSENTIAL (PRIMARY) HYPERTENSION 08/20/2019 CEDRICK SALVADOR MD Ot I95. 9 HYPOTENSION, UNSPECIFIED 08/20/2019 CEDRICK SALVADOR MD Ot J18. 9 PNEUMONIA, UNSPECIFIED ORGANISM 08/20/2019 CEDRICK SALVADOR MD Ot J44. 9 CHRONIC OBSTRUCTIVE PULMONARY DISEASE, U 08/20/2019 CEDRICK SALVADOR MD Ot J96. 01 ACUTE RESPIRATORY FAILURE WITH HYPOXIA 08/20/2019 CEDRICK SALVADOR MD Ot K52. 9 NONINFECTIVE GASTROENTERITIS AND COLITIS 08/20/2019 CEDRICK SALVADOR MD Ot M54. 9 DORSALGIA, UNSPECIFIED 08/20/2019 CEDRICK SALVADOR MD Ot R19. 5 OTHER FECAL ABNORMALITIES 08/20/2019 CEDRICK SALVADOR MD Ot R40. 1 STUPOR 08/20/2019 CEDRICK SALVADOR MD Ot R65. 21 SEVERE SEPSIS WITH SEPTIC SHOCK 08/20/2019 CEDRICK SALVADOR MD Ot Z79. 4 HALF-WAY (CURRENT) USE OF INSULIN 08/20/2019 PAMELA SHARPE DO Ot M47.816 SPONDYLOSIS W/O MYELOPATHY OR RADICULOPA 08/20/2019 OSCAR MARTIN Ot M47.814 SPONDYLOSIS W/O MYELOPATHY OR RADICULOPA 08/20/2019 OSCAR MARTIN Ot M51. 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, 08/20/2019 ART ADAM, OSCAR R Ot M54. 2 CERVICALGIA 08/20/2019 CEDRICK SALVADOR MD Ot A41. 9 SEPSIS, UNSPECIFIED ORGANISM 08/20/2019 CEDRICK SALVADOR MD, Ot E11. 9 TYPE 2 DIABETES MELLITUS WITHOUT COMPLIC 08/20/2019 CEDRICK SALVADOR MD Ot E87. 1 HYPO-OSMOLALITY AND HYPONATREMIA 08/20/2019 CEDRICK SALVADOR MD Ot F17.210 NICOTINE DEPENDENCE, CIGARETTES, UNCOMPL 08/20/2019 CEDRICK SALVADOR MD Ot G93. 41 METABOLIC ENCEPHALOPATHY 08/20/2019 CEDRICK SALVADOR MD Ot I10 ESSENTIAL (PRIMARY) HYPERTENSION 08/20/2019 CEDRICK SALVADOR MD Ot I95. 9 HYPOTENSION, UNSPECIFIED 08/20/2019 CEDRICK SALVADOR MD Ot J18. 9 PNEUMONIA, UNSPECIFIED ORGANISM 08/20/2019 CEDRICK SALVADOR MD Ot J44. 9 CHRONIC OBSTRUCTIVE PULMONARY DISEASE, U 08/20/2019 CEDRICK SALVADOR MD Ot J96. 01 ACUTE RESPIRATORY FAILURE WITH HYPOXIA 08/20/2019 CEDRICK SALVADOR MD Ot K52. 9 NONINFECTIVE GASTROENTERITIS AND COLITIS 08/20/2019 CEDRICK SALVADOR MD Ot M54. 9 DORSALGIA, UNSPECIFIED 08/20/2019 CEDRICK SALVADOR MD Ot R19. 5 OTHER FECAL ABNORMALITIES 08/20/2019 CEDRICK SALVADOR MD Ot R40. 1 STUPOR 08/20/2019 CEDRICK SALVADOR MD Ot R65. 21 SEVERE SEPSIS WITH SEPTIC SHOCK 08/20/2019 CEDRICK SALVADOR MD Ot Z79. 4 LIME KILN OPERATOR (CURRENT) USE OF INSULIN 08/21/2019 CEDRICK SALVADOR MD Ot A41. 9 SEPSIS, UNSPECIFIED ORGANISM 08/21/2019 CEDRICK SALVADOR MD Ot E11. 9 TYPE 2 DIABETES MELLITUS WITHOUT COMPLIC 08/21/2019 CEDRICK SALVADOR MD Ot E87. 1 HYPO-OSMOLALITY AND HYPONATREMIA 08/21/2019 CEDRICK SALVADOR MD Ot F17.210 NICOTINE DEPENDENCE, CIGARETTES, UNCOMPL 08/21/2019 CEDRICK SALVADOR MD Ot G93. 41 METABOLIC ENCEPHALOPATHY 08/21/2019 MADELEINE MD, CEDRICK M Ot I10 ESSENTIAL (PRIMARY) HYPERTENSION 08/21/2019 CEDRICK SALVADOR MD Ot I95. 9 HYPOTENSION, UNSPECIFIED 08/21/2019 CEDRICK SALVADOR MD Ot J18. 9 PNEUMONIA, UNSPECIFIED ORGANISM 08/21/2019 CEDRICK SALVADOR MD Ot J44. 9 CHRONIC OBSTRUCTIVE PULMONARY DISEASE, U 08/21/2019 CEDRICK SALVADOR MD Ot J96. 01 ACUTE RESPIRATORY FAILURE WITH HYPOXIA 08/21/2019 CEDRICK SALVADOR MD Ot K52. 9 NONINFECTIVE GASTROENTERITIS AND COLITIS 08/21/2019 CEDRICK SALVADOR MD Ot M54. 9 DORSALGIA, UNSPECIFIED 08/21/2019 CEDRICK SALVADOR MD Ot R19. 5 OTHER FECAL ABNORMALITIES 08/21/2019 CEDRICK SALVADOR MD Ot R40. 1 STUPOR 08/21/2019 CEDRICK SALVADOR MD Ot R65. 21 SEVERE SEPSIS WITH SEPTIC SHOCK 08/21/2019 CEDRICK SALVADOR MD Ot Z79. 4 HALF-WAY (CURRENT) USE OF INSULIN 08/22/2019 CEDRICK SALVADOR MD Ot A41. 9 SEPSIS, UNSPECIFIED ORGANISM 08/22/2019 CEDRICK SALVADOR MD Ot E11. 9 TYPE 2 DIABETES MELLITUS WITHOUT COMPLIC 08/22/2019 CEDRICK SALVADOR MD Ot E87. 1 HYPO-OSMOLALITY AND HYPONATREMIA 08/22/2019 CEDRICK SALVADOR MD Ot F17.210 NICOTINE DEPENDENCE, CIGARETTES, UNCOMPL 08/22/2019 CEDRICK SALVADOR MD Ot G93. 41 METABOLIC ENCEPHALOPATHY 08/22/2019 CEDRICK SALVADOR MD Ot I10 ESSENTIAL (PRIMARY) HYPERTENSION 08/22/2019 CEDRICK SALVADOR MD Ot I95. 9 HYPOTENSION, UNSPECIFIED 08/22/2019 CEDRICK SALVADOR MD Ot J18. 9 PNEUMONIA, UNSPECIFIED ORGANISM 08/22/2019 CEDRICK SALVADOR MD Ot J44. 9 CHRONIC OBSTRUCTIVE PULMONARY DISEASE, U 08/22/2019 CEDRICK SALVADOR MD Ot J96. 01 ACUTE RESPIRATORY FAILURE WITH HYPOXIA 08/22/2019 CEDRICK SALVADOR MD Ot K52. 9 NONINFECTIVE GASTROENTERITIS AND COLITIS 08/22/2019 CEDRICK SALVADOR MD Ot M54. 9 DORSALGIA, UNSPECIFIED 08/22/2019 CEDRICK SALVADOR MD Ot R19. 5 OTHER FECAL ABNORMALITIES 08/22/2019 CEDRICK SALVADOR MD Ot R40. 1 STUPOR 08/22/2019 CEDRICK SALVADOR MD Ot R65. 21 SEVERE SEPSIS WITH SEPTIC SHOCK 08/22/2019 CEDRICK SALVADOR MD Ot Z79. 4 HALF-WAY (CURRENT) USE OF INSULIN 08/22/2019 CEDRICK SALVADOR MD Ot A41. 9 SEPSIS, UNSPECIFIED ORGANISM 08/22/2019 CEDRICK SALVADOR MD Ot E11. 9 TYPE 2 DIABETES MELLITUS WITHOUT COMPLIC 08/22/2019 CEDRICK SALVADOR MD Ot E87. 1 HYPO-OSMOLALITY AND HYPONATREMIA 08/22/2019 CEDRICK SALVADOR MD Ot F17.210 NICOTINE DEPENDENCE, CIGARETTES, UNCOMPL 08/22/2019 CEDRICK SALVADOR MD Ot G93. 41 METABOLIC ENCEPHALOPATHY 08/22/2019 CEDRICK SALVADOR MD Ot I10 ESSENTIAL (PRIMARY) HYPERTENSION 08/22/2019 CEDRICK SALVADOR MD Ot I95. 9 HYPOTENSION, UNSPECIFIED 08/22/2019 CEDRICK SALVADOR MD Ot J18. 9 PNEUMONIA, UNSPECIFIED ORGANISM 08/22/2019 CEDRICK SALVADOR MD Ot J44. 9 CHRONIC OBSTRUCTIVE PULMONARY DISEASE, U 08/22/2019 CEDRICK SALVADOR MD Ot J96. 01 ACUTE RESPIRATORY FAILURE WITH HYPOXIA 08/22/2019 CEDRICK SALVADOR MD Ot K52. 9 NONINFECTIVE GASTROENTERITIS AND COLITIS 08/22/2019 CEDRICK SALVADOR MD Ot M54. 9 DORSALGIA, UNSPECIFIED 08/22/2019 CEDRICK SALVADOR MD Ot R19. 5 OTHER FECAL ABNORMALITIES 08/22/2019 CEDRICK SALVADOR MD Ot R40. 1 STUPOR 08/22/2019 CEDRICK SALVADOR MD Ot R65. 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 9 SEPSIS, UNSPECIFIED ORGANISM 08/23/2019 CEDRICK SALVADOR MD Ot E11. 9 TYPE 2 DIABETES MELLITUS WITHOUT COMPLIC 08/23/2019 CEDRICK SALVADOR MD Ot E87. 1 HYPO-OSMOLALITY AND HYPONATREMIA 08/23/2019 CEDRICK SALVADOR MD Ot F17.210 NICOTINE DEPENDENCE, CIGARETTES, UNCOMPL 08/23/2019 CEDRICK SALVADOR MD Ot G93. 41 METABOLIC ENCEPHALOPATHY 08/23/2019 CEDRICK SALVADOR MD Ot I10 ESSENTIAL (PRIMARY) HYPERTENSION 08/23/2019 CEDRICK SALVADOR MD Ot I95. 9 HYPOTENSION, UNSPECIFIED 08/23/2019 CEDRICK SALVADOR MD Ot J18. 9 PNEUMONIA, UNSPECIFIED ORGANISM 08/23/2019 CEDRICK SALVADOR MD Ot J44. 9 CHRONIC OBSTRUCTIVE PULMONARY DISEASE, U 08/23/2019 CEDRICK SALVADOR MD Ot J96. 01 ACUTE RESPIRATORY FAILURE WITH HYPOXIA 08/23/2019 CEDRICK SALVADOR MD Ot K52. 9 NONINFECTIVE GASTROENTERITIS AND COLITIS 08/23/2019 CEDRICK SALVADOR MD Ot M54. 9 DORSALGIA, UNSPECIFIED 08/23/2019 CEDRICK SALVADOR MD Ot R19. 5 OTHER FECAL ABNORMALITIES 08/23/2019 CEDRICK SALVADOR MD Ot R40. 1 STUPOR 08/23/2019 CEDRICK SALVADOR MD Ot R65. 21 SEVERE SEPSIS WITH SEPTIC SHOCK 08/23/2019 CEDRICK SALVADOR MD Ot Z79. 4 HALF-WAY (CURRENT) USE OF INSULIN 08/23/2019 CEDRICK SALVADOR MD Ot A41. 9 SEPSIS, UNSPECIFIED ORGANISM 08/23/2019 CEDRICK SALVADOR MD Ot E11. 9 TYPE 2 DIABETES MELLITUS WITHOUT COMPLIC 08/23/2019 CEDRICK SALVADOR MD Ot E87. 1 HYPO-OSMOLALITY AND HYPONATREMIA 08/23/2019 CEDRICK SALVADOR MD Ot F17.210 NICOTINE DEPENDENCE, CIGARETTES, UNCOMPL 08/23/2019 CEDRICK SALVADOR MD Ot G93. 41 METABOLIC ENCEPHALOPATHY 08/23/2019 CEDRICK SALVADOR MD Ot I10 ESSENTIAL (PRIMARY) HYPERTENSION 08/23/2019 CEDRICK SALVADOR MD M Ot I95. 9 HYPOTENSION, UNSPECIFIED 08/23/2019 CEDRICK SALVADOR MD Ot J18. 9 PNEUMONIA, UNSPECIFIED ORGANISM 08/23/2019 CEDRICK SALVADOR MD Ot J44. 9 CHRONIC OBSTRUCTIVE PULMONARY DISEASE, U 08/23/2019 CEDRICK SALVADOR MD M Ot J96. 01 ACUTE RESPIRATORY FAILURE WITH HYPOXIA 08/23/2019 CEDRICK SALVADOR MD Ot K52. 9 NONINFECTIVE GASTROENTERITIS AND COLITIS 08/23/2019 CEDRICK SALVADOR MD Ot M54. 9 DORSALGIA, UNSPECIFIED 08/23/2019 CEDRICK SALVADOR MD Ot R19. 5 OTHER FECAL ABNORMALITIES 08/23/2019 CEDRICK SALVADOR MD Ot R40. 1 STUPOR 08/23/2019 CEDRICK SALVADOR MD Ot R65. 21 SEVERE SEPSIS WITH SEPTIC SHOCK 08/23/2019 CEDRICK SALVADOR MD Ot Z79. 4 HALF-WAY (CURRENT) USE OF INSULIN 08/24/2019 CEDRICK SALVADOR MD Ot A41. 9 SEPSIS, UNSPECIFIED ORGANISM 08/24/2019 CEDRICK SALVADOR MD Ot E11. 9 TYPE 2 DIABETES MELLITUS WITHOUT COMPLIC 08/24/2019 CEDRICK SALVADOR MD Ot E87. 1 HYPO-OSMOLALITY AND HYPONATREMIA 08/24/2019 CEDRICK SALVADOR MD Ot F17.210 NICOTINE DEPENDENCE, CIGARETTES, UNCOMPL 08/24/2019 CEDRICK SALVADOR MD Ot G93. 41 METABOLIC ENCEPHALOPATHY 08/24/2019 CEDRICK SALVADOR MD Ot I10 ESSENTIAL (PRIMARY) HYPERTENSION 08/24/2019 CEDRICK SALVADOR MD Ot I95. 9 HYPOTENSION, UNSPECIFIED 08/24/2019 CEDRICK SALVADOR MD Ot J18. 9 PNEUMONIA, UNSPECIFIED ORGANISM 08/24/2019 CEDRICK SALVADOR MD Ot J44. 9 CHRONIC OBSTRUCTIVE PULMONARY DISEASE, U 08/24/2019 CEDRICK SALVADOR MD Ot J96. 01 ACUTE RESPIRATORY FAILURE WITH HYPOXIA 08/24/2019 CEDRICK SALVADOR MD Ot K52. 9 NONINFECTIVE GASTROENTERITIS AND COLITIS 08/24/2019 CEDRICK SALVADOR MD Ot M54. 9 DORSALGIA, UNSPECIFIED 08/24/2019 CEDRICK SALVADOR MD Ot R19. 5 OTHER FECAL ABNORMALITIES 08/24/2019 CEDRICK SALVADOR MD Ot R40. 1 STUPOR 08/24/2019 CEDRICK SALVADOR MD Ot R65. 21 SEVERE SEPSIS WITH SEPTIC SHOCK 08/24/2019 CEDRICK SALVADOR MD Ot Z79. 4 HALF-WAY (CURRENT) USE OF INSULIN 08/25/2019 CEDRICK SALVADOR MD Ot A41. 9 SEPSIS, UNSPECIFIED ORGANISM 08/25/2019 CEDRICK SALVADOR MD Ot E11. 9 TYPE 2 DIABETES MELLITUS WITHOUT COMPLIC 08/25/2019 CEDRICK SALVADOR MD Ot E87. 1 HYPO-OSMOLALITY AND HYPONATREMIA 08/25/2019 CEDRICK SALVADOR MD Ot F17.210 NICOTINE DEPENDENCE, CIGARETTES, UNCOMPL 08/25/2019 CEDRICK SALVADOR MD Ot G93. 41 METABOLIC ENCEPHALOPATHY 08/25/2019 CEDRICK SALVADOR MD Ot I10 ESSENTIAL (PRIMARY) HYPERTENSION 08/25/2019 CEDRICK SALVADOR MD Ot I95. 9 HYPOTENSION, UNSPECIFIED 08/25/2019 CEDRICK SALVADOR MD Ot J18. 9 PNEUMONIA, UNSPECIFIED ORGANISM 08/25/2019 CEDRICK SALVADOR MD Ot J44. 9 CHRONIC OBSTRUCTIVE PULMONARY DISEASE, U 08/25/2019 CEDRICK SALVADOR MD Ot J96. 01 ACUTE RESPIRATORY FAILURE WITH HYPOXIA 08/25/2019 CEDRICK SALVADOR MD Ot K52. 9 NONINFECTIVE GASTROENTERITIS AND COLITIS 08/25/2019 CEDRICK SALVADOR MD Ot M54. 9 DORSALGIA, UNSPECIFIED 08/25/2019 CEDRICK ASLVADOR MD Ot R19. 5 OTHER FECAL ABNORMALITIES 08/25/2019 CEDRICK SALVADOR MD Ot R40. 1 STUPOR 08/25/2019 CEDRICK SALVADOR MD Ot R65. 21 SEVERE SEPSIS WITH SEPTIC SHOCK 08/25/2019 CEDRICK SALVADOR MD Ot Z79. 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 08/25/2019 Ot G93.41 MET ABOLIC ENCEPHALOPATHY 08/25/2019 Ot I10 ESSENT IAL (PRIMARY) HYPERTENSION 08/25/2019 Ot I95.9 HYPO TENSION, UNSPECIFIED 08/25/2019 Ot J18.9 PNEU MONIA, UNSPECIFIED ORGANISM 08/25/2019 Ot J44.9 DIRECTOR [employer] CADE OBSTRUCTIVE PULMONARY DISEASE, U 08/25/2019 Ot J96.01 ACU TE RESPIRATORY FAILURE WITH HYPOXIA 08/25/2019 Ot K52.9 MATTHEW NFECTIVE GASTROENTERITIS AND COLITIS 08/25/2019 Ot M54.9 DORS ALGIA, UNSPECIFIED 08/25/2019 Ot R13.10 DYS PHAGIA, UNSPECIFIED 08/25/2019 Ot R19.5 OTHE R FECAL ABNORMALITIES 08/25/2019 Ot R40.1 STUPOR 08/25/2019 Ot R65.21 SEV ERE SEPSIS WITH SEPTIC SHOCK 08/25/2019 Ot Z79.4 LIME KILN OPERATOR (CURRENT) USE OF INSULIN 08/25/2019 Ot Z79.891 LO NG TERM (CURRENT) USE OF OPIATE ANALGE 08/25/2019 Ot Z79.899 OT HER HALF-WAY (CURRENT) DRUG THERAPY 10/29/2019 SPENCER MORROW MD Ot E11. 9 TYPE 2 DIABETES MELLITUS WITHOUT COMPLIC 10/29/2019 SPENCER MORROW MD Ot E78. 00 PURE HYPERCHOLESTEROLEMIA, UNSPECIFIED 10/29/2019 SPENCER MORROW MD Ot E78. 1 PURE HYPERGLYCERIDEMIA 10/29/2019 SPENCER MORROW MD Ot F17.210 NICOTINE DEPENDENCE, CIGARETTES, UNCOMPL 10/29/2019 SPENCER MORROW MD Ot F32. 9 MAJOR DEPRESSIVE DISORDER, SINGLE EPISOD 10/29/2019 SPENCER MORROW MD Ot F41. 9 ANXIETY DISORDER, UNSPECIFIED 10/29/2019 SPENCER MORROW MD Ot G43.909 MIGRAINE, UNSP, NOT INTRACTABLE, WITHOUT 10/29/2019 SPENCER MORROW MD Ot G89. 29 OTHER CHRONIC PAIN 10/29/2019 SPENCER MORROW MD Ot I10 ESSENTIAL (PRIMARY) HYPERTENSION 10/29/2019 SPENCER MORROW MD Ot J44. 9 CHRONIC OBSTRUCTIVE PULMONARY DISEASE, U 10/29/2019 SPENCER MORROW MD Ot K21. 9 GASTRO-ESOPHAGEAL REFLUX DISEASE WITHOUT 10/29/2019 SPENCER MORROW MD Ot M54. 9 DORSALGIA, UNSPECIFIED 10/29/2019 SPENCER MORROW MD Ot R41. 82 ALTERED MENTAL STATUS, UNSPECIFIED 10/29/2019 SPENCER MORROW MD Ot R55 SYNCOPE AND COLLAPSE 10/29/2019 SPENCER MORROW MD Ot Z79. 82 HALF-WAY (CURRENT) USE OF ASPIRIN 10/29/2019 SPENCER MORROW MD Ot Z79. 84 HALF-WAY (CURRENT) USE OF ORAL HYPOGLYC 10/29/2019 SPENCER MORROW MD Ot Z79.891 LIME KILN OPERATOR (CURRENT) USE OF OPIATE ANALGE 10/29/2019 SPENCER MORROW MD, Ot Z79.899 OTHER HALF-WAY (CURRENT) DRUG THERAPY 10/29/2019 SPENCER MORROW MD, Ot Z88. 6 ALLERGY STATUS TO ANALGESIC AGENT STATUS 10/29/2019 SPENCER MORROW MD, Ot Z88. 7 ALLERGY STATUS TO SERUM AND VACCINE STAT 10/29/2019 SPENCER MORROW MD, Ot Z88. 8 ALLERGY STATUS TO OTH DRUG/MEDS/BIOL SUB 10/29/2019 SPENCER MORROW MD Ot Z90.710 ACQUIRED ABSENCE OF BOTH CERVIX AND UTER 10/29/2019 SPENCER MORROW MD Ot Z90. 89 ACQUIRED ABSENCE OF OTHER ORGANS 10/29/2019 SPENCER MORROW MD Ot Z98. 51 TUBAL LIGATION STATUS 11/02/2019 PHILIP GILMORE APRN Ot E11 .9 TYPE 2 DIABETES MELLITUS WITHOUT COMPLIC 11/02/2019 PHILIP GILMORE APRN Ot E66.09 OTHER OBESITY DUE TO EXCESS CALORIES 11/02/2019 PHILIP GILMORE APRN Ot E78.00 PURE HYPERCHOLESTEROLEMIA, UNSPECIFIED 11/02/2019 PHILIP GILMORE APRN Ot F32 .9 MAJOR DEPRESSIVE DISORDER, SINGLE EPISOD 11/02/2019 PHILIP GILMORE APRN Ot F41 .9 ANXIETY DISORDER, UNSPECIFIED 11/02/2019 PHILIP GILMORE APRN Ot G43.909 MIGRAINE, UNSP, NOT INTRACTABLE, WITHOUT 11/02/2019 PHILIP GILMORE APRN Ot I10 ESSENTIAL (PRIMARY) HYPERTENSION 11/02/2019 PHILIP GILMORE APRN Ot J44 .9 CHRONIC OBSTRUCTIVE PULMONARY DISEASE, U 11/02/2019 PHILIP GILMORE APRN Ot K21 .9 GASTRO-ESOPHAGEAL REFLUX DISEASE WITHOUT 11/02/2019 PHILIP GILMORE APRN Ot R10.31 RIGHT LOWER QUADRANT PAIN 11/02/2019 PHILIP GILMORE APRN Ot R10.32 LEFT LOWER QUADRANT PAIN 11/02/2019 PHILIP GILMORE APRN Ot Z68.39 BODY MASS INDEX (BMI) 39.0-39.9, ADULT 11/02/2019 PHILIP GILMORE APRN Ot Z79.82 LIME KILN OPERATOR (CURRENT) USE OF ASPIRIN 11/02/2019 PHILIP GILMORE APRN Ot Z79.84 HALF-WAY (CURRENT) USE OF ORAL HYPOGLYC 11/02/2019 PHILIP GILMORE APRN Ot Z88 .5 ALLERGY STATUS TO NARCOTIC AGENT STATUS 11/02/2019 PHILIP GILMORE APRN Ot Z88 .7 ALLERGY STATUS TO SERUM AND VACCINE STAT 11/04/2019 PAMELA SHARPE DO Ot M47.816 SPONDYLOSIS W/O MYELOPATHY OR RADICULOPA 11/04/2019 OSCAR MARTIN Ot M47.814 SPONDYLOSIS W/O MYELOPATHY OR RADICULOPA 11/04/2019 OSCAR MARTIN Ot 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 2 CERVICALGIA 11/04/2019 PHILIP GILMORE APRN Ot E11 .9 TYPE 2 DIABETES MELLITUS WITHOUT COMPLIC 11/04/2019 PHILIP GILMORE APRN Ot E66.09 OTHER OBESITY DUE TO EXCESS CALORIES 11/04/2019 PHILIP GILMORE APRN Ot E78.00 PURE HYPERCHOLESTEROLEMIA, UNSPECIFIED 11/04/2019 PHILIP GILMORE APRN Ot F32 .9 MAJOR DEPRESSIVE DISORDER, SINGLE EPISOD 11/04/2019 PHILIP GILMORE APRN Ot F41 .9 ANXIETY DISORDER, UNSPECIFIED 11/04/2019 PHILIP GILMORE APRN Ot G43.909 MIGRAINE, UNSP, NOT INTRACTABLE, WITHOUT 11/04/2019 PHILIP GILMORE APRN Ot I10 ESSENTIAL (PRIMARY) HYPERTENSION 11/04/2019 PHILIP GILMORE APRN Ot J44 .9 CHRONIC OBSTRUCTIVE PULMONARY DISEASE, U 11/04/2019 PHILIP GILMORE APRN Ot K21 .9 GASTRO-ESOPHAGEAL REFLUX DISEASE WITHOUT 11/04/2019 PHILIP GILMORE APRN Ot R10.31 RIGHT LOWER QUADRANT PAIN 11/04/2019 PHILIP GILMORE APRN Ot R10.32 LEFT LOWER QUADRANT PAIN 11/04/2019 PHILIP GILMORE APRN Ot Z68.39 BODY MASS INDEX (BMI) 39.0-39.9, ADULT 11/04/2019 PHILIP GILMORE APRN Ot Z79.82 HALF-WAY (CURRENT) USE OF ASPIRIN 11/04/2019 PHILIP GILMORE APRN Ot Z79.84 HALF-WAY (CURRENT) USE OF ORAL HYPOGLYC 11/04/2019 PHILIP GILMORE APRN Ot Z88 .5 ALLERGY STATUS TO NARCOTIC AGENT STATUS 11/04/2019 PHILIP GILMORE APRN Ot Z88 .7 ALLERGY STATUS TO SERUM AND VACCINE STAT Procedures Code Description [place] [address] ROUT INE VENIPUNCTURE 01/12/2014 97306 A1C (IN-HOUSE) 01/12/2014 01951 MICR O ALBUMIN-IN HOUSE 01/12/2014 23507 CBC 01/12/2014 [id number] GF R CALC (RESULT ONLY) 01/12/2014 29608 CMP 01/12/2014 51441 LIPI D PANEL 01/12/2014 19187 TSH 01/12/2014 56514 AMERITOX 01/14/2014 22677 A1C (IN-HOUSE) 05/04/2014 08043 ROUT INE VENIPUNCTURE 06/03/[address] H EAD/BRAIN W/O & W/DYE 06/03/2014 52309 CBC 06/03/2014 [id number] GF R CALC (RESULT ONLY) 06/03/2014 15569 CMP 06/03/2014 23232 XRAY LUMBAR SPINE 2 OR 3 VIEWS 07/06/2014 J1885 [place] DOL INJ 07/06/2014 92864 PSYC H DIAGNOSTIC EVALUATION 10/04/2014 [id number] IN SERTION OF ENDOTRACHEAL AIRWAY INTO TR 08/16/2019 [id number] RE SPIRATORY VENTILATION, 24- 96 CONSECUTI 08/16/2019 [id number] RE SPIRATORY VENTILATION, GREATER THAN 96 08/16/2019 [id number] IN SERTION OF ENDOTRACHEAL AIRWAY INTO TR 08/16/2019 [id number] RE SPIRATORY VENTILATION, 24- 96 CONSECUTI 08/16/2019 Results Test Result Range Rheumatoid Arthritis Factor - 05/15/16 1 1:35 RA Latex Turbid. <10.0 IU/mL 0.0-13.9 Sedimentation Rate-Westergren - 05/15/16 11:35 Sedimentation Rate-Westergren 23 mm/hr 0-40 Serum or plasma salicylates measurement (mass/volume) - 11/25/16 00:55 Serum or plasma salicylates measurement (mass/volume) < mg/dL 5.0-20.0 Serum or plasma acetaminophen measuremen t (mass/volume) - 11/25/16 00:55 Serum or plasma acetaminophen measurement (mass/volume ) < ug/mL 10-30 Serum or plasma ethanol measurement (mas s/volume) - 11/25/16 00:55 Serum or plasma ethanol measurement (mass/volume) < mg/dL <10 Complete blood count (CBC) with automate d white blood cell (WBC) differential - 11/25/16 00:55 Blood leukocytes automated count (number/volume) 8.6 10*3/uL 4.3-11.0 Blood erythrocytes automated count (number/volume) 3.31 10*6/uL 4.35-5.85 Venous blood hemoglobin measurement (mass/volume) 10.9 g/dL 11.5-16.0 Blood hematocrit (volume fraction) 33 % 35-52 Automated erythrocyte mean corpuscular volume 99 [ foz_us] 80-99 Automated erythrocyte mean corpuscular h emoglobin (mass per erythrocyte) 33 pg 25-34 Automated erythrocyte mean corpuscular h emoglobin concentration measurement (mass/volume) 33 g/dL 32-36 Automated erythrocyte distribution width ratio 13. 0 % 10.0- 14.5 Automated blood platelet count (count/volume) 239 10*3/uL [...] 10*3 1.0-4.0 Blood monocytes automated count (number/volume) 0. 3 10*3 0.0-1.0 Automated eosinophil count 0.0 10*3/uL 0 .0-0.3 Automated blood basophil count (count/volume) 0.0 10*3/uL 0.0-0.1 Comprehensive metabolic panel - 11/25/16 00:55 Serum or plasma sodium measurement (moles/volume) 139 mmol/L 135-145 Serum or plasma potassium measurement (moles/volume) 4.5 mmol/L 3.6-5.0 Serum or plasma chloride measurement (moles/volume) 111 mmol/L 98-107 Carbon dioxide 17 mmol/L 21-32 Serum or plasma anion gap determination (moles/volume) 11 mmol/L 5-14 Serum or plasma urea nitrogen measurement (mass/volume ) 19 mg/dL 7-18 Serum or plasma creatinine measurement (mass/volume) 1.01 mg/dL 0.60-1.30 Serum or plasma urea nitrogen/creatinine mass ratio 19 NRG Serum or plasma creatinine measurement w ith calculation of estimated glomerular filtration rate 57 NRG Serum or plasma glucose measurement (mass/volume) 261 mg/dL 70-105 Serum or plasma calcium measurement (mass/volume) 9.3 mg/dL 8.5-10.1 Serum or plasma total bilirubin measurement (mass/volu me) 0.2 mg/dL 0.1-1.0 Serum or plasma alkaline phosphatase major surement (enzymatic activity/volume) 73 U/L 40-136 Serum or plasma aspartate aminotransfera se measurement (enzymatic activity/volume) 12 U/L 5-34 Serum or plasma alanine aminotransferase measurement (enzymatic activity/volume) 17 U/L 0-55 Serum or plasma protein measurement (mass/volume) 6.6 g/dL 6.4-8.2 Serum or plasma albumin measurement (mass/volume) 4.0 g/dL 3.2-4.5 Urine drug screening test - 11/25/16 01: 15 Urine phencyclidine detection by screening method NEGATIVE NEGATIVE Urine benzodiazepines detection by screening method NEGATIVE NEGATIVE Urine cocaine detection NEGATIVE NEGATI VE Urine amphetamines detection by screening method N EGATIVE NEGATIVE Urine methamphetamine detection by screening method NEGATIVE NEGATIVE Urine cannabinoids detection by screening method N EGATIVE NEGATIVE Urine opiates detection by screening method POSITI VE NEGATIVE Urine barbiturates detection NEGATIVE N EGATIVE Screening urine tricyclic antidepressants detection NEGATIVE NEGATIVE Urine methadone detection by screening method NEGA TIVE NEGATIVE Urine oxycodone detection NEGATIVE NEGA TIVE Urine propoxyphene detection NEGATIVE N EGATIVE Complete urinalysis with reflex to cultu re - 11/25/16 01:15 Urine color determination YELLOW NRG Urine clarity determination CLEAR NR G Urine pH measurement by test strip 7 5-9 Specific gravity of urine by test strip 1.005 1.016-1.022 Urine protein assay by test strip, semi-quantitative NEGATIVE NEGATIVE Urine glucose detection by automated test strip NE GATIVE NEGATIVE Erythrocytes detection in urine sediment by light micr oscopy NEGATIVE NEGATIVE Urine ketones detection by automated test strip NE GATIVE NEGATIVE Urine nitrite detection by test strip NEGATIVE NEGATIVE Urine total bilirubin detection by test strip NEGA TIVE NEGATIVE Urine urobilinogen measurement by automated test strip (mass/volume) NORMAL NORMAL Urine leukocyte esterase detection by dipstick NEG ATIVE NEGATIVE Automated urine sediment erythrocyte cou nt by microscopy (number/high power field) NONE NRG Automated urine sediment leukocyte count by microscopy (number/high power field) NONE NRG Bacteria detection in urine sediment by light microsco py NEGATIVE NRG Squamous epithelial cells detection in u rine sediment by light microscopy RARE NRG Crystals detection in urine sediment by light microsco py NONE NRG Casts detection in urine sediment by light microscopy NONE NRG Mucus detection in urine sediment by light microscopy NEGATIVE NRG Complete urinalysis with reflex to culture NO NRG Complete blood count (CBC) with automate d white blood cell (WBC) differential - 02/04/17 17:35 Blood leukocytes automated count (number/volume) 8.8 10*3/uL 4.3-11.0 Blood erythrocytes automated count (number/volume) 2.95 10*6/uL 4.35-5.85 Venous blood hemoglobin measurement (mass/volume) 9.7 g/dL 11.5-16.0 Blood hematocrit (volume fraction) 29 % 35-52 Automated erythrocyte mean corpuscular volume 100 [foz_us] 80-99 Automated erythrocyte mean corpuscular h emoglobin (mass per erythrocyte) 33 pg 25-34 Automated erythrocyte mean corpuscular h emoglobin concentration measurement (mass/volume) 33 g/dL 32-36 Automated erythrocyte distribution width ratio 13. 1 % 10.0- 14.5 Automated blood platelet count (count/volume) 372 10*3/uL [...] 10*3 1.0-4.0 Blood monocytes automated count (number/volume) 0. 6 10*3 0.0-1.0 Automated eosinophil count 0.2 10*3/uL 0 .0-0.3 Automated blood basophil count (count/volume) 0.0 10*3/uL 0.0-0.1 Comprehensive metabolic panel - 02/04/17 17:35 Serum or plasma sodium measurement (moles/volume) 137 mmol/L 135-145 Serum or plasma potassium measurement (moles/volume) 4.1 mmol/L 3.6-5.0 Serum or plasma chloride measurement (moles/volume) 102 mmol/L 98-107 Carbon dioxide 22 mmol/L 21-32 Serum or plasma anion gap determination (moles/volume) 13 mmol/L 5-14 Serum or plasma urea nitrogen measurement (mass/volume ) 11 mg/dL 7-18 Serum or plasma creatinine measurement (mass/volume) 0.72 mg/dL 0.60-1.30 Serum or plasma urea nitrogen/creatinine mass ratio 15 NRG Serum or plasma creatinine measurement w ith calculation of estimated glomerular filtration rate > NRG Serum or plasma glucose measurement (mass/volume) 104 mg/dL 70-105 Serum or plasma calcium measurement (mass/volume) 9.4 mg/dL 8.5-10.1 Serum or plasma total bilirubin measurement (mass/volu me) 0.4 mg/dL 0.1-1.0 Serum or plasma alkaline phosphatase major surement (enzymatic activity/volume) 114 U/L 40-136 Serum or plasma aspartate aminotransfera se measurement (enzymatic activity/volume) 17 U/L 5-34 Serum or plasma alanine aminotransferase measurement (enzymatic activity/volume) 18 U/L 0-55 Serum or plasma protein measurement (mass/volume) 6.5 g/dL 6.4-8.2 Serum or plasma albumin measurement (mass/volume) 3.7 g/dL 3.2-4.5 PT panel in platelet poor plasma by coag ulation assay - 02/04/17 17:35 Prothrombin time (PT) in platelet poor plasma by coagu lation assay 13.2 s 12.2-14.7 INR in platelet poor plasma or blood by coagulation as say 1.0 0.8-1.4 Activated partial thromboplastin time (a PTT) in platelet poor plasma bycoagulation assay - 02/04/17 17:35 Activated partial thromboplastin time (a PTT) in platelet poor plasma bycoagulation assay 33 s 24-35 Serum or plasma lithium measurement (mol es/volume) - 02/04/17 17:35 BNP level 18.2 pg/mL <100.0 Influenza virus A and B antigen detectio n - 08/01/17 20:01 CALL POSITIVES (F1 HELP) [facility] FLU RESULT POSITIVE FOR INFLUENZA A ANT IGEN, NEG FOR B ANTIGEN, BY [facility] Whole blood basic metabolic panel - 11/22 12/09 09:39 Serum or plasma sodium measurement (moles/volume) 141 mmol/L 135-145 Serum or plasma potassium measurement (moles/volume) 4.4 mmol/L 3.6-5.0 Serum or plasma chloride measurement (moles/volume) 106 mmol/L 98-107 Carbon dioxide 23 mmol/L 21-32 Serum or plasma anion gap determination (moles/volume) 12 mmol/L 5-14 Serum or plasma urea nitrogen measurement (mass/volume ) 14 mg/dL 7-18 Serum or plasma creatinine measurement (mass/volume) 0.81 mg/dL 0.60-1.30 Serum or plasma urea nitrogen/creatinine mass ratio 17 NRG Serum or plasma creatinine measurement w ith calculation of estimated glomerular filtration rate > NRG Serum or plasma glucose measurement (mass/volume) 128 mg/dL 70-105 Serum or plasma calcium measurement (mass/volume) 9.7 mg/dL 8.5-10.1 Influenza virus A and B antigen detectio n - 08/16/19 21:27 FLU RESULT NEGATIVE FOR INFLUENZA A AND B ANTIGENS BY [facility] Complete blood count (CBC) with automate d white blood cell (WBC) differential - 08/16/19 21:38 Blood leukocytes automated count (number/volume) 8.0 10*3/uL 4.3-11.0 Blood erythrocytes automated count (number/volume) 4.99 10*6/uL 4.35-5.85 Venous blood hemoglobin measurement (mass/volume) 16.3 g/dL 11.5-16.0 Blood hematocrit (volume fraction) 47 % 35-52 Automated erythrocyte mean corpuscular volume 94 [ foz_us] 80-99 Automated erythrocyte mean corpuscular h emoglobin (mass per erythrocyte) 33 pg 25-34 Automated erythrocyte mean corpuscular h emoglobin concentration measurement (mass/volume) 35 g/dL 32-36 Automated erythrocyte distribution width ratio 13. 3 % 10.0- 14.5 Automated blood platelet count (count/volume) 390 10*3/uL 130-400 Automated blood platelet mean volume measurement 9.2 [foz_us] 7.4-10.4 Automated blood neutrophils/100 leukocytes 42 % 42-75 Automated blood lymphocytes/100 leukocytes 55 % 12-44 Blood monocytes/100 leukocytes 2 % 0-12 Automated blood eosinophils/100 leukocytes 1 % 0-10 Automated blood basophils/100 leukocytes 0 % 0-10 Blood neutrophils automated count (number/volume) 3.4 10*3 1.8-7.8 Blood lymphocytes automated count (number/volume) 4.4 10*3 1.0-4.0 Blood monocytes automated count (number/volume) 0. 2 10*3 0.0-1.0 Automated eosinophil count 0.1 10*3/uL 0 .0-0.3 Automated blood basophil count (count/volume) 0.0 10*3/uL 0.0-0.1 Comprehensive metabolic panel - 08/16/19 21:38 Serum or plasma sodium measurement (moles/volume) 122 mmol/L 135-145 Serum or plasma potassium measurement (moles/volume) 4.4 mmol/L 3.6-5.0 Serum or plasma chloride measurement (moles/volume) 93 mmol/L 98-107 Carbon dioxide 9 mmol/L 21-32 Serum or plasma anion gap determination (moles/volume) 20 mmol/L 5-14 Serum or plasma urea nitrogen measurement (mass/volume ) 12 mg/dL 7-18 Serum or plasma creatinine measurement (mass/volume) 1.17 mg/dL 0.60-1.30 Serum or plasma urea nitrogen/creatinine mass ratio 10 NRG Serum or plasma creatinine measurement w ith calculation of estimated glomerular filtration rate 48 NRG Serum or plasma glucose measurement (mass/volume) 251 mg/dL 70-105 Serum or plasma calcium measurement (mass/volume) 9.0 mg/dL 8.5-10.1 Serum or plasma total bilirubin measurement (mass/volu me) 0.3 mg/dL 0.1-1.0 Serum or plasma alkaline phosphatase major surement (enzymatic activity/volume) 92 U/L 40-136 Serum or plasma aspartate aminotransfera se measurement (enzymatic activity/volume) 32 U/L 5-34 Serum or plasma alanine aminotransferase measurement (enzymatic activity/volume) 27 U/L 0-55 Serum or plasma protein measurement (mass/volume) 6.6 g/dL 6.4-8.2 Serum or plasma albumin measurement (mass/volume) 3.8 g/dL 3.2-4.5 CALCIUM CORRECTED 9.2 mg/dL 8.5-10.1 PT panel in platelet poor plasma by coag ulation assay - 08/16/19 21:38 Prothrombin time (PT) in platelet poor plasma by coagu lation assay 16.4 s 12.2-14.7 INR in platelet poor plasma or blood by coagulation as say 1.3 0.8-1.4 Activated partial thromboplastin time (a PTT) in platelet poor plasma bycoagulation assay - 08/16/19 21:38 Activated partial thromboplastin time (a PTT) in platelet poor plasma bycoagulation assay 36 s 24-35 Serum or plasma triglyceride measurement (mass/volume) - 08/16/19 21:38 Serum or plasma triglyceride measurement (mass/volume) 155 mg/dL <150 Serum or plasma ethanol measurement (mas s/volume) - 08/16/19 21:39 Serum or plasma ethanol measurement (mass/volume) < mg/dL <10 Complete urinalysis with reflex to cultu re - 08/16/19 21:48 Urine color determination YELLOW NRG Urine clarity determination CLEAR NR G Urine pH measurement by test strip 7.0 5-9 Specific gravity of urine by test strip <= 1.016-1.022 Urine protein assay by test strip, semi-quantitative NEGATIVE NEGATIVE Urine glucose detection by automated test strip NE GATIVE NEGATIVE Erythrocytes detection in urine sediment by light micr oscopy NEGATIVE NEGATIVE Urine ketones detection by automated test strip NE GATIVE NEGATIVE Urine nitrite detection by test strip NEGATIVE NEGATIVE Urine total bilirubin detection by test strip NEGA TIVE NEGATIVE Urine urobilinogen measurement by automated test strip (mass/volume) 0.2 mg/dL < = 1.0 Urine leukocyte esterase detection by dipstick NEG ATIVE NEGATIVE Automated urine sediment erythrocyte cou nt by microscopy (number/high power field) NONE NRG Automated urine sediment leukocyte count by microscopy (number/high power field) NONE NRG Bacteria detection in urine sediment by light microsco py NEGATIVE NRG Squamous epithelial cells detection in u rine sediment by light microscopy 0-2 NRG Crystals detection in urine sediment by light microsco py NONE NRG Casts detection in urine sediment by light microscopy NONE NRG Mucus detection in urine sediment by light microscopy NEGATIVE NRG Complete urinalysis with reflex to culture CULTURE PENDING NRG Blood lactic acid measurement (moles/vol ume) - 08/16/19 21:48 Blood lactic acid measurement (moles/volume) 5.85 mmol/L 0.50-2.00 Urine drug screening test - 08/16/19 21: 48 Urine phencyclidine detection by screening method NEGATIVE NEGATIVE Urine benzodiazepines detection by screening method POSITIVE NEGATIVE Urine cocaine detection NEGATIVE NEGATI VE Urine amphetamines detection by screening method N EGATIVE NEGATIVE Urine methamphetamine detection by screening method NEGATIVE NEGATIVE Urine cannabinoids detection by screening method N EGATIVE NEGATIVE Urine opiates detection by screening method NEGATI VE NEGATIVE Urine barbiturates detection NEGATIVE N EGATIVE Screening urine tricyclic antidepressants detection NEGATIVE NEGATIVE Urine methadone detection by screening method NEGA TIVE NEGATIVE Urine oxycodone detection POSITIVE NEGA TIVE Urine propoxyphene detection NEGATIVE N EGATIVE Bacterial urine culture - 08/16/19 21:48 Bacterial urine culture NG NRG Bacterial blood culture - 08/16/19 21:48 QUANTITY OF GROWTH . NRG Bacterial blood culture SEE COMMEN NRG Bacterial blood culture - 08/16/19 22:00 Bacterial blood culture NG NRG C DIFFICILE AG + TOXIN A/B. - 08/16/19 2 2:40 RESULTS NEGATIVE FOR ANTIGEN AND TOXIN A/B NRG Stool bacteria identification by culture - 08/16/19 22:40 Serum or plasma lactate measurement (mol es/volume) - 08/16/19 23:39 Serum or plasma lactate measurement (moles/volume) 3.21 mmol/L 0.50-2.00 Arterial blood gas measurement - 0 00:32 Blood pCO2 43 mm[Hg] 35-45 Blood pO2 194 mm[Hg] 79-93 Arterial blood bicarbonate measurement (moles/volume) 16 mmol/L 23-27 Arterial blood base excess by calculation -11.6 mm ol/L -2.5-2.5 Arterial blood oxygen saturation measurement 99 % 94-100 * Inhaled oxygen flow rate 100% NRG Arterial blood pH measurement with patient temperature correction 7.18 7.37-7.43 Arterial blood carbon dioxide, total measurement (mole s/volume) 16.9 mmol/L 21.0-31.0 Body site RIGHT RADAIL NRG Assessment of wrist artery patency prior to arterial p uncture YES-POS NRG Setting of ventilation mode YES NR G Measurement of body temperature 35.8 NRG Capillary blood glucose measurement by g lucometer (mass/volume) - 08/17/19 00:48 Capillary blood glucose measurement by glucometer (mas s/volume) 155 mg/dL 70-110 Methicillin resistant Staphylococcus aur eus (MRSA) screening culture - 08/17/19 01:55 Methicillin resistant Staphylococcus aureus (MRSA) scr eening culture NEG NRG Serum or plasma lactate measurement (mol es/volume) - 08/17/19 02:13 Serum or plasma lactate measurement (moles/volume) 1.98 mmol/L 0.50-2.00 Arterial blood gas measurement - 0 03:00 Blood pCO2 33 mm[Hg] 35-45 Blood pO2 87 mm[Hg] 79-93 Arterial blood bicarbonate measurement (moles/volume) 15 mmol/L 23-27 Arterial blood base excess by calculation -10.1 mm ol/L -2.5-2.5 Arterial blood oxygen saturation measurement 97 % 94-100 * Inhaled oxygen flow rate 35% NRG Arterial blood pH measurement with patient temperature correction 7.29 7.37-7.43 Arterial blood carbon dioxide, total measurement (mole s/volume) 16.5 mmol/L 21.0-31.0 Body site RIGHT RADIAL NRG Assessment of wrist artery patency prior to arterial p uncture YES-POS NRG Setting of ventilation mode YES NR G Measurement of body temperature 36.0 NRG Complete blood count (CBC) with automate d white blood cell (WBC) differential - 08/17/19 03:15 Blood leukocytes automated count (number/volume) 30.0 10*3/uL 4.3-11.0 Blood erythrocytes automated count (number/volume) 4.40 10*6/uL 4.35-5.85 Venous blood hemoglobin measurement (mass/volume) 14.2 g/dL 11.5-16.0 Blood hematocrit (volume fraction) 41 % 35-52 Automated erythrocyte mean corpuscular volume 94 [ foz_us] 80-99 Automated erythrocyte mean corpuscular h emoglobin (mass per erythrocyte) 32 pg 25-34 Automated erythrocyte mean corpuscular h emoglobin concentration measurement (mass/volume) 34 g/dL 32-36 Automated erythrocyte distribution width ratio 13. 2 % 10.0- 14.5 Automated blood platelet count (count/volume) 373 10*3/uL 130-400 Automated blood platelet mean volume measurement 8.9 [foz_us] 7.4-10.4 Automated blood neutrophils/100 leukocytes 92 % 42-75 Automated blood lymphocytes/100 leukocytes 3 % 12-44 Blood monocytes/100 leukocytes 5 % 0-12 Automated blood eosinophils/100 leukocytes 0 % 0-10 Automated blood basophils/100 leukocytes 0 % 0-10 Blood neutrophils automated count (number/volume) 27.7 10*3 1.8-7.8 Blood lymphocytes automated count (number/volume) 1.0 10*3 1.0-4.0 Blood monocytes automated count (number/volume) 1. 4 10*3 0.0-1.0 Automated eosinophil count 0.0 10*3/uL 0 .0-0.3 Automated blood basophil count (count/volume) 0.0 10*3/uL 0.0-0.1 Whole blood basic metabolic panel - 07/26 10/11 03:15 Serum or plasma sodium measurement (moles/volume) 124 mmol/L 135-145 Serum or plasma potassium measurement (moles/volume) 3.8 mmol/L 3.6-5.0 Serum or plasma chloride measurement (moles/volume) 97 mmol/L 98-107 Carbon dioxide 13 mmol/L 21-32 Serum or plasma anion gap determination (moles/volume) 14 mmol/L 5-14 Serum or plasma urea nitrogen measurement (mass/volume ) 13 mg/dL 7-18 Serum or plasma creatinine measurement (mass/volume) 1.16 mg/dL 0.60-1.30 Serum or plasma urea nitrogen/creatinine mass ratio 11 NRG Serum or plasma creatinine measurement w ith calculation of estimated glomerular filtration rate 48 NRG Serum or plasma glucose measurement (mass/volume) 258 mg/dL 70-105 Serum or plasma calcium measurement (mass/volume) 7.5 mg/dL 8.5-10.1 Serum or plasma phosphate measurement (m ass/volume) - 08/17/19 03:15 Serum or plasma phosphate measurement (mass/volume) 1.8 mg/dL 2.3-4.7 Magnesium - 08/17/19 03:15 Magnesium 1.7 mg/dL 1.6-2.4 Manual absolute plasma cell count - 07/26 10/11 03:15 Blood monocytes/100 leukocytes 1 % NRG Manual blood segmented neutrophils/100 leukocytes 84 % NRG Blood band neutrophils/100 leukocytes 12 % NRG Manual blood lymphocytes/100 leukocytes 3 % NRG Blood erythrocyte morphology finding identification NORMAL NRG Serum or plasma amylase measurement (enz ymatic activity/volume) - 08/17/19 03:15 Serum or plasma amylase measurement (enzymatic activit y/volume) 65 U/L 25-125 Lipase - 08/17/19 03:15 Lipase 74 U/L 8-78 Capillary blood glucose measurement by g lucometer (mass/volume) - 08/17/19 06:58 Capillary blood glucose measurement by glucometer (mas s/volume) 198 mg/dL 70-110 Arterial blood gas measurement - 0 07:40 Blood pCO2 33 mm[Hg] 35-45 Blood pO2 64 mm[Hg] 79-93 Arterial blood bicarbonate measurement (moles/volume) 20 mmol/L 23-27 Arterial blood base excess by calculation -4.4 mmo l/L -2.5-2.5 Arterial blood oxygen saturation measurement 91 % 94-100 * Inhaled oxygen flow rate RESP RATE 22 NRG Arterial blood pH measurement with patient temperature correction 7.39 7.37-7.43 Arterial blood carbon dioxide, total measurement (mole s/volume) 20.8 mmol/L 21.0-31.0 Body site RIGHT RADIAL NRG Assessment of wrist artery patency prior to arterial p uncture YES-POS NRG Setting of ventilation mode YES NR G Measurement of body temperature 36.3 NRG Stool leukocytes detection by light micr oscopy - 08/17/19 10:30 FECAL WBC RESULTS FEW WBC'S OBSERVED ON DIRECT SME AR NRG FECAL NOTE FECAL LEUKOCYTES MAY BE INTE RMITTENTLY PRESENT OR NRG FECAL NOTE UNEVENLY DISTRIBUTED IN STOO L SPECIMENS, AND WBC NRG FECAL NOTE MORPHOLOGY DEGRADES DURING TRANSPORT NRG FECAL NOTE NOTE: NRG OCCULT BLOOD STOOL - 08/17/19 10:30 Stool gastrointestinal hemoglobin detection POSITI VE NEGATIVE Capillary blood glucose measurement by g lucometer (mass/volume) - 08/17/19 11:37 Capillary blood glucose measurement by glucometer (mas s/volume) 217 mg/dL 70-110 Complete blood count (CBC) with automate d white blood cell (WBC) differential - 08/17/19 12:40 Blood leukocytes automated count (number/volume) 21.3 10*3/uL 4.3-11.0 Blood erythrocytes automated count (number/volume) 3.88 10*6/uL 4.35-5.85 Venous blood hemoglobin measurement (mass/volume) 12.6 g/dL 11.5-16.0 Blood hematocrit (volume fraction) 37 % 35-52 Automated erythrocyte mean corpuscular volume 94 [ foz_us] 80-99 Automated erythrocyte mean corpuscular h emoglobin (mass per erythrocyte) 32 pg 25-34 Automated erythrocyte mean corpuscular h emoglobin concentration measurement (mass/volume) 35 g/dL 32-36 Automated erythrocyte distribution width ratio 13. 3 % 10.0- 14.5 Automated blood platelet count (count/volume) 346 10*3/uL 130-400 Automated blood platelet mean volume measurement 8.8 [foz_us] 7.4-10.4 Automated blood neutrophils/100 leukocytes 88 % 42-75 Automated blood lymphocytes/100 leukocytes 7 % 12-44 Blood monocytes/100 leukocytes 6 % 0-12 Automated blood eosinophils/100 leukocytes 0 % 0-10 Automated blood basophils/100 leukocytes 0 % 0-10 Blood neutrophils automated count (number/volume) 18.7 10*3 1.8-7.8 Blood lymphocytes automated count (number/volume) 1.5 10*3 1.0-4.0 Blood monocytes automated count (number/volume) 1. 2 10*3 0.0-1.0 Automated eosinophil count 0.0 10*3/uL 0 .0-0.3 Automated blood basophil count (count/volume) 0.0 10*3/uL 0.0-0.1 Blood lactic acid measurement (moles/vol ume) - 08/17/19 12:40 Blood lactic acid measurement (moles/volume) 2.09 mmol/L 0.50-2.00 Comprehensive metabolic panel - 08/17/19 12:40 Serum or plasma sodium measurement (moles/volume) 130 mmol/L 135-145 Serum or plasma potassium measurement (moles/volume) 3.9 mmol/L 3.6-5.0 Serum or plasma chloride measurement (moles/volume) 103 mmol/L 98-107 Carbon dioxide 18 mmol/L 21-32 Serum or plasma anion gap determination (moles/volume) 9 mmol/L 5-14 Serum or plasma urea nitrogen measurement (mass/volume ) 12 mg/dL 7-18 Serum or plasma creatinine measurement (mass/volume) 1.07 mg/dL 0.60-1.30 Serum or plasma urea nitrogen/creatinine mass ratio 11 NRG Serum or plasma creatinine measurement w ith calculation of estimated glomerular filtration rate 53 NRG Serum or plasma glucose measurement (mass/volume) 224 mg/dL 70-105 Serum or plasma calcium measurement (mass/volume) 7.4 mg/dL 8.5-10.1 Serum or plasma total bilirubin measurement (mass/volu me) 0.4 mg/dL 0.1-1.0 Serum or plasma alkaline phosphatase major surement (enzymatic activity/volume) 64 U/L 40-136 Serum or plasma aspartate aminotransfera se measurement (enzymatic activity/volume) 41 U/L 5-34 Serum or plasma alanine aminotransferase measurement (enzymatic activity/volume) 38 U/L 0-55 Serum or plasma protein measurement (mass/volume) 4.8 g/dL 6.4-8.2 Serum or plasma albumin measurement (mass/volume) 3.0 g/dL 3.2-4.5 CALCIUM CORRECTED 8.2 mg/dL 8.5-10.1 Serum or plasma phosphate measurement (m ass/volume) - 08/17/19 12:40 Serum or plasma phosphate measurement (mass/volume) 3.1 mg/dL 2.3-4.7 Magnesium - 08/17/19 12:40 Magnesium 1.5 mg/dL 1.6-2.4 Serum or plasma ethanol measurement (mas s/volume) - 08/17/19 12:40 Serum or plasma ethanol measurement (mass/volume) < mg/dL <10 RESPIRATORY VIRUS PANEL - 08/17/19 14:10 Serum ragweed IgE antibody assay Not Detected Not Detected Serum or plasma aripiprazole measurement (mass/volume) Not Detected Not Detected PARAINFLU 3 PCR Not Detected Not Detect ed METAPNEUMO PCR Not Detected Not Detecte d Adenovirus detection, CSF, PCR Not Detected Not Detected INFLUENZA A PCR Not Detected Not Detect ed INFLUENZA B PCR Not Detected Not Detect ed Serum or plasma lactate measurement (mol es/volume) - 08/17/19 14:56 Serum or plasma lactate measurement (moles/volume) 3.00 mmol/L 0.50-2.00 Serum or plasma lactate measurement (mol es/volume) - 08/17/19 17:20 Serum or plasma lactate measurement (moles/volume) 3.42 mmol/L 0.50-2.00 Capillary blood glucose measurement by g lucometer (mass/volume) - 08/17/19 17:56 Capillary blood glucose measurement by glucometer (mas s/volume) 186 mg/dL 70-110 Serum or plasma lactate measurement (mol es/volume) - 08/17/19 20:20 Serum or plasma lactate measurement (moles/volume) 4.31 mmol/L 0.50-2.00 Capillary blood glucose measurement by g lucometer (mass/volume) - 08/17/19 23:32 Capillary blood glucose measurement by glucometer (mas s/volume) 174 mg/dL 70-110 Serum or plasma lactate measurement (mol es/volume) - 08/18/19 00:06 Serum or plasma lactate measurement (moles/volume) 4.43 mmol/L 0.50-2.00 Complete blood count (CBC) with automate d white blood cell (WBC) differential - 08/18/19 03:00 Blood leukocytes automated count (number/volume) 11.6 10*3/uL 4.3-11.0 Blood erythrocytes automated count (number/volume) 3.11 10*6/uL 4.35-5.85 Venous blood hemoglobin measurement (mass/volume) 10.2 g/dL 11.5-16.0 Blood hematocrit (volume fraction) 30 % 35-52 Automated erythrocyte mean corpuscular volume 96 [ foz_us] 80-99 Automated erythrocyte mean corpuscular h emoglobin (mass per erythrocyte) 33 pg 25-34 Automated erythrocyte mean corpuscular h emoglobin concentration measurement (mass/volume) 34 g/dL 32-36 Automated erythrocyte distribution width ratio 13. 5 % 10.0- 14.5 Automated blood platelet count (count/volume) 204 10*3/uL 130-400 Automated blood platelet mean volume measurement 8.9 [foz_us] 7.4-10.4 Automated blood neutrophils/100 leukocytes 83 % 42-75 Automated blood lymphocytes/100 leukocytes 10 % 12-44 Blood monocytes/100 leukocytes 6 % 0-12 Automated blood eosinophils/100 leukocytes 0 % 0-10 Automated blood basophils/100 leukocytes 0 % 0-10 Blood neutrophils automated count (number/volume) 9.7 10*3 1.8-7.8 Blood lymphocytes automated count (number/volume) 1.2 10*3 1.0-4.0 Blood monocytes automated count (number/volume) 0. 7 10*3 0.0-1.0 Automated eosinophil count 0.0 10*3/uL 0 .0-0.3 Automated blood basophil count (count/volume) 0.0 10*3/uL 0.0-0.1 Arterial blood gas measurement - 0 03:00 Blood pCO2 36 mm[Hg] 35-45 Blood pO2 91 mm[Hg] 79-93 Arterial blood bicarbonate measurement (moles/volume) 18 mmol/L 23-27 Arterial blood base excess by calculation -7.4 mmo l/L -2.5-2.5 Arterial blood oxygen saturation measurement 97 % 94-100 * Inhaled oxygen flow rate 30% NRG Arterial blood pH measurement with patient temperature correction 7.31 7.37-7.43 Arterial blood carbon dioxide, total measurement (mole s/volume) 18.8 mmol/L 21.0-31.0 Body site RIGHT RADIAL ARTLINE NRG Assessment of wrist artery patency prior to arterial p uncture ART LINE NRG Setting of ventilation mode YES NR G Measurement of body temperature 37.2 NRG Whole blood basic metabolic panel - 07/26 11/10 03:00 Serum or plasma sodium measurement (moles/volume) 132 mmol/L 135-145 Serum or plasma potassium measurement (moles/volume) 3.8 mmol/L 3.6-5.0 Serum or plasma chloride measurement (moles/volume) 107 mmol/L 98-107 Carbon dioxide 15 mmol/L 21-32 Serum or plasma anion gap determination (moles/volume) 10 mmol/L 5-14 Serum or plasma urea nitrogen measurement (mass/volume ) 7 mg/dL 7-18 Serum or plasma creatinine measurement (mass/volume) 0.81 mg/dL 0.60-1.30 Serum or plasma urea nitrogen/creatinine mass ratio 9 NRG Serum or plasma creatinine measurement w ith calculation of estimated glomerular filtration rate > NRG Serum or plasma glucose measurement (mass/volume) 156 mg/dL 70-105 Serum or plasma calcium measurement (mass/volume) 7.2 mg/dL 8.5-10.1 Serum or plasma phosphate measurement (m ass/volume) - 08/18/19 03:00 Serum or plasma phosphate measurement (mass/volume) 2.6 mg/dL 2.3-4.7 Magnesium - 08/18/19 03:00 Magnesium 1.7 mg/dL 1.6-2.4 Serum or plasma triglyceride measurement (mass/volume) - 08/18/19 03:00 Serum or plasma triglyceride measurement (mass/volume) 92 mg/dL <150 Serum or plasma lactate measurement (mol es/volume) - 08/18/19 03:00 Serum or plasma lactate measurement (moles/volume) 3.87 mmol/L 0.50-2.00 Serum or plasma lactate measurement (mol es/volume) - 08/18/19 05:15 Serum or plasma lactate measurement (moles/volume) 3.45 mmol/L 0.50-2.00 Sputum Gram stain - 08/18/19 06:43 Sputum Gram stain No bacteria seen NRG Bacterial sputum culture - 08/18/19 06:4 3 FREE TEXT EXTERNAL SUSCEPTIBILITY REPORTED 08/21/19 12:15 NRG QUANTITY OF GROWTH Rare NRG FREE TEXT ENTRY 2 RML REPORTED ID 08/20 17:05 NRG FREE TEXT ENTRY 3 MAY BE CONSIDERED NORMAL ETHAN I N NRG Bacterial sputum culture [id number] NRG FREE TEXT ENTRY 4 SPUTUM NRG Dirithromycin susceptibility test by dis k diffusion - 08/18/19 06:43 Oxacillin susceptibility test by minimum inhibitory co ncentration > NRG Clindamycin susceptibility test by minimum inhibitory concentration <= NRG Erythromycin susceptibility test by minimum inhibitory concentration > NRG Vancomycin susceptibility test by minimum inhibitory c oncentration 2 NRG Levofloxacin susceptibility test by minimum inhibitory concentration <= NRG Rifampin susceptibility test by minimum inhibitory con centration <= NRG Cefazolin susceptibility test by minimum inhibitory co ncentration R NRG Linezolid susceptibility test by minimum inhibitory co ncentration 2 NRG Penicillin G susceptibility test by minimum inhibitory concentration > NRG Moxifloxacin susceptibility test by minimum inhibitory concentration S NRG Minocycline susc GLENN <= NRG Serum or plasma lactate measurement (mol es/volume) - 08/18/19 07:15 Serum or plasma lactate measurement (moles/volume) 3.17 mmol/L 0.50-2.00 Serum or plasma lactate measurement (mol es/volume) - 08/18/19 09:30 Serum or plasma lactate measurement (moles/volume) 3.28 mmol/L 0.50-2.00 Capillary blood glucose measurement by g lucometer (mass/volume) - 08/18/19 11:31 Capillary blood glucose measurement by glucometer (mas s/volume) 145 mg/dL 70-110 Serum or plasma lactate measurement (mol es/volume) - 08/18/19 13:00 Serum or plasma lactate measurement (moles/volume) 3.48 mmol/L 0.50-2.00 Vancomycin trough - 08/18/19 13:00 Vancomycin trough 18.5 ug/mL 10.0-20.0 Blood lactic acid measurement (moles/vol ume) - 08/18/19 16:55 Blood lactic acid measurement (moles/volume) 2.53 mmol/L 0.50-2.00 Capillary blood glucose measurement by g lucometer (mass/volume) - 08/18/19 17:48 Capillary blood glucose measurement by glucometer (mas s/volume) 157 mg/dL 70-110 Blood lactic acid measurement (moles/vol ume) - 08/18/19 22:11 Blood lactic acid measurement (moles/volume) 1.81 mmol/L 0.50-2.00 Capillary blood glucose measurement by g lucometer (mass/volume) - 08/18/19 23:25 Capillary blood glucose measurement by glucometer (mas s/volume) 142 mg/dL 70-110 Arterial blood gas measurement - 0 02:45 Blood pCO2 41 mm[Hg] 35-45 Blood pO2 106 mm[Hg] 79-93 Arterial blood bicarbonate measurement (moles/volume) 21 mmol/L 23-27 Arterial blood base excess by calculation -3.9 mmo l/L -2.5-2.5 Arterial blood oxygen saturation measurement 98 % 94-100 * Inhaled oxygen flow rate 40% NRG Arterial blood pH measurement with patient temperature correction 7.33 7.37-7.43 Arterial blood carbon dioxide, total measurement (mole s/volume) 22.0 mmol/L 21.0-31.0 Body site RIGHT RADIAL NRG Assessment of wrist artery patency prior to arterial p uncture YES-POS NRG Setting of ventilation mode YES NR G Measurement of body temperature 37.8 NRG Complete blood count (CBC) with automate d white blood cell (WBC) differential - 08/19/19 02:45 Blood leukocytes automated count (number/volume) 10.7 10*3/uL 4.3-11.0 Blood erythrocytes automated count (number/volume) 2.59 10*6/uL 4.35-5.85 Venous blood hemoglobin measurement (mass/volume) 8.5 g/dL 11.5-16.0 Blood hematocrit (volume fraction) 25 % 35-52 Automated erythrocyte mean corpuscular volume 98 [ foz_us] 80-99 Automated erythrocyte mean corpuscular h emoglobin (mass per erythrocyte) 33 pg 25-34 Automated erythrocyte mean corpuscular h emoglobin concentration measurement (mass/volume) 34 g/dL 32-36 Automated erythrocyte distribution width ratio 14. 3 % 10.0- 14.5 Automated blood platelet count (count/volume) 175 10*3/uL 130-400 Automated blood platelet mean volume measurement 8.6 [foz_us] 7.4-10.4 Automated blood neutrophils/100 leukocytes 89 % 42-75 Automated blood lymphocytes/100 leukocytes 7 % 12-44 Blood monocytes/100 leukocytes 4 % 0-12 Automated blood eosinophils/100 leukocytes 0 % 0-10 Automated blood basophils/100 leukocytes 0 % 0-10 Blood neutrophils automated count (number/volume) 9.5 10*3 1.8-7.8 Blood lymphocytes automated count (number/volume) 0.7 10*3 1.0-4.0 Blood monocytes automated count (number/volume) 0. 4 10*3 0.0-1.0 Automated eosinophil count 0.0 10*3/uL 0 .0-0.3 Automated blood basophil count (count/volume) 0.0 10*3/uL 0.0-0.1 Whole blood basic metabolic panel - 07/26 12/11 02:45 Serum or plasma sodium measurement (moles/volume) 137 mmol/L 135-145 Serum or plasma potassium measurement (moles/volume) 3.3 mmol/L 3.6-5.0 Serum or plasma chloride measurement (moles/volume) 109 mmol/L 98-107 Carbon dioxide 19 mmol/L 21-32 Serum or plasma anion gap determination (moles/volume) 9 mmol/L 5-14 Serum or plasma urea nitrogen measurement (mass/volume ) 7 mg/dL 7-18 Serum or plasma creatinine measurement (mass/volume) 0.76 mg/dL 0.60-1.30 Serum or plasma urea nitrogen/creatinine mass ratio 9 NRG Serum or plasma creatinine measurement w ith calculation of estimated glomerular filtration rate > NRG Serum or plasma glucose measurement (mass/volume) 126 mg/dL 70-105 Serum or plasma calcium measurement (mass/volume) 7.5 mg/dL 8.5-10.1 Serum or plasma phosphate measurement (m ass/volume) - 08/19/19 02:45 Serum or plasma phosphate measurement (mass/volume) 1.6 mg/dL 2.3-4.7 Magnesium - 08/19/19 02:45 Magnesium 1.7 mg/dL 1.6-2.4 Serum or plasma lithium measurement (mol es/volume) - 08/19/19 02:45 BNP PT 37.8 pg/mL <100.0 Blood CBC with ordered manual differenti al panel - 08/19/19 10:30 Blood leukocytes automated count (number/volume) 13.3 10*3/uL 4.3-11.0 Blood erythrocytes automated count (number/volume) 3.09 10*6/uL 4.35-5.85 Venous blood hemoglobin measurement (mass/volume) 9.9 g/dL 11.5-16.0 Blood hematocrit (volume fraction) 30 % 35-52 Automated erythrocyte mean corpuscular volume 96 [ foz_us] 80-99 Automated erythrocyte mean corpuscular h emoglobin (mass per erythrocyte) 32 pg 25-34 Automated erythrocyte mean corpuscular h emoglobin concentration measurement (mass/volume) 33 g/dL 32-36 Automated erythrocyte distribution width ratio 14. 4 % 10.0- 14.5 Automated blood platelet count (count/volume) 194 10*3/uL 130-400 Automated blood platelet mean volume measurement 8.6 [foz_us] 7.4-10.4 Automated blood neutrophils/100 leukocytes 91 % 42-75 Automated blood lymphocytes/100 leukocytes 5 % 12-44 Blood monocytes/100 leukocytes 4 % NRG Automated blood eosinophils/100 leukocytes 0 % 0-10 Automated blood basophils/100 leukocytes 0 % 0-10 Blood neutrophils automated count (number/volume) 12.0 10*3 1.8-7.8 Blood lymphocytes automated count (number/volume) 0.7 10*3 1.0-4.0 Blood monocytes automated count (number/volume) 0. 5 10*3 0.0-1.0 Automated eosinophil count 0.0 10*3/uL 0 .0-0.3 Automated blood basophil count (count/volume) 0.0 10*3/uL 0.0-0.1 Manual blood segmented neutrophils/100 leukocytes 82 % NRG Blood band neutrophils/100 leukocytes 7 % NRG Manual blood lymphocytes/100 leukocytes 7 % NRG Manual eosinophils/100 leukocytes in nose 0 % NRG Manual blood basophils/100 leukocytes 0 % NRG Blood anisocytosis detection by light microscopy S LIGHT NRG Blood ovalocytes detection by light microscopy SLI GHT NRG Capillary blood glucose measurement by g lucometer (mass/volume) - 08/19/19 11:26 Capillary blood glucose measurement by glucometer (mas s/volume) 136 mg/dL 70-110 Capillary blood glucose measurement by g lucometer (mass/volume) - 08/19/19 18:02 Capillary blood glucose measurement by glucometer (mas s/volume) 153 mg/dL 70-110 Capillary blood glucose measurement by g lucometer (mass/volume) - 08/19/19 23:49 Capillary blood glucose measurement by glucometer (mas s/volume) 138 mg/dL 70-110 Complete blood count (CBC) with automate d white blood cell (WBC) differential - 08/20/19 03:10 Blood leukocytes automated count (number/volume) 12.3 10*3/uL 4.3-11.0 Blood erythrocytes automated count (number/volume) 3.07 10*6/uL 4.35-5.85 Venous blood hemoglobin measurement (mass/volume) 10.2 g/dL 11.5-16.0 Blood hematocrit (volume fraction) 29 % 35-52 Automated erythrocyte mean corpuscular volume 95 [ foz_us] 80-99 Automated erythrocyte mean corpuscular h emoglobin (mass per erythrocyte) 33 pg 25-34 Automated erythrocyte mean corpuscular h emoglobin concentration measurement (mass/volume) 35 g/dL 32-36 Automated erythrocyte distribution width ratio 13. 8 % 10.0- 14.5 Automated blood platelet count (count/volume) 177 10*3/uL 130-400 Automated blood platelet mean volume measurement 8.8 [foz_us] 7.4-10.4 Automated blood neutrophils/100 leukocytes 87 % 42-75 Automated blood lymphocytes/100 leukocytes 9 % 12-44 Blood monocytes/100 leukocytes 4 % 0-12 Automated blood eosinophils/100 leukocytes 0 % 0-10 Automated blood basophils/100 leukocytes 0 % 0-10 Blood neutrophils automated count (number/volume) 10.7 10*3 1.8-7.8 Blood lymphocytes automated count (number/volume) 1.1 10*3 1.0-4.0 Blood monocytes automated count (number/volume) 0. 5 10*3 0.0-1.0 Automated eosinophil count 0.0 10*3/uL 0 .0-0.3 Automated blood basophil count (count/volume) 0.0 10*3/uL 0.0-0.1 Whole blood basic metabolic panel - 07/26 01/10 03:10 Serum or plasma sodium measurement (moles/volume) 136 mmol/L 135-145 Serum or plasma potassium measurement (moles/volume) 3.0 mmol/L 3.6-5.0 Serum or plasma chloride measurement (moles/volume) 103 mmol/L 98-107 Carbon dioxide 24 mmol/L 21-32 Serum or plasma anion gap determination (moles/volume) 9 mmol/L 5-14 Serum or plasma urea nitrogen measurement (mass/volume ) 12 mg/dL 7-18 Serum or plasma creatinine measurement (mass/volume) 0.82 mg/dL 0.60-1.30 Serum or plasma urea nitrogen/creatinine mass ratio 15 NRG Serum or plasma creatinine measurement w ith calculation of estimated glomerular filtration rate > NRG Serum or plasma glucose measurement (mass/volume) 134 mg/dL 70-105 Serum or plasma calcium measurement (mass/volume) 7.6 mg/dL 8.5-10.1 Serum or plasma phosphate measurement (m ass/volume) - 08/20/19 03:10 Serum or plasma phosphate measurement (mass/volume) 3.0 mg/dL 2.3-4.7 Magnesium - 08/20/19 03:10 Magnesium 1.5 mg/dL 1.6-2.4 Serum or plasma triglyceride measurement (mass/volume) - 08/20/19 03:10 Serum or plasma triglyceride measurement (mass/volume) 84 mg/dL <150 Arterial blood gas measurement - 0 03:20 Blood pCO2 33 mm[Hg] 35-45 Blood pO2 84 mm[Hg] 79-93 Arterial blood bicarbonate measurement (moles/volume) 25 mmol/L 23-27 Arterial blood base excess by calculation 1.6 mmol /L -2.5-2.5 Arterial blood oxygen saturation measurement 97 % 94-100 * Inhaled oxygen flow rate 22 NRG Arterial blood pH measurement with patient temperature correction 7.49 7.37-7.43 Arterial blood carbon dioxide, total measurement (mole s/volume) 25.5 mmol/L 21.0-31.0 Body site RIGHT RADIAL NRG Assessment of wrist artery patency prior to arterial p uncture POSITIVE NRG Setting of ventilation mode YES NR G Measurement of body temperature 38.2 NRG Comprehensive metabolic panel - 08/20/19 05:08 Serum or plasma sodium measurement (moles/volume) 135 mmol/L 135-145 Serum or plasma potassium measurement (moles/volume) 3.0 mmol/L 3.6-5.0 Serum or plasma chloride measurement (moles/volume) 102 mmol/L 98-107 Carbon dioxide 25 mmol/L 21-32 Serum or plasma anion gap determination (moles/volume) 8 mmol/L 5-14 Serum or plasma urea nitrogen measurement (mass/volume ) 13 mg/dL 7-18 Serum or plasma creatinine measurement (mass/volume) 0.82 mg/dL 0.60-1.30 Serum or plasma urea nitrogen/creatinine mass ratio 16 NRG Serum or plasma creatinine measurement w ith calculation of estimated glomerular filtration rate > NRG Serum or plasma glucose measurement (mass/volume) 109 mg/dL 70-105 Serum or plasma calcium measurement (mass/volume) 7.6 mg/dL 8.5-10.1 Serum or plasma total bilirubin measurement (mass/volu me) 0.8 mg/dL 0.1-1.0 Serum or plasma alkaline phosphatase major surement (enzymatic activity/volume) 62 U/L 40-136 Serum or plasma aspartate aminotransfera se measurement (enzymatic activity/volume) 23 U/L 5-34 Serum or plasma alanine aminotransferase measurement (enzymatic activity/volume) 39 U/L 0-55 Serum or plasma protein measurement (mass/volume) 4.7 g/dL 6.4-8.2 Serum or plasma albumin measurement (mass/volume) 2.7 g/dL 3.2-4.5 CALCIUM CORRECTED 8.6 mg/dL 8.5-10.1 Ammonia - 08/20/19 05:08 Ammonia 36 umol/L 11-32 Bacterial blood culture - 08/20/19 05:08 Bacterial blood culture NG NRG Bacterial blood culture - 08/20/19 05:12 Bacterial blood culture NG NRG Bacterial blood culture - 08/20/19 05:23 Bacterial blood culture NG NRG Influenza virus A and B antigen detectio n - 08/20/19 05:39 FLU RESULT NEGATIVE FOR INFLUENZA A AND B ANTIGENS BY IA NRG Complete urinalysis with reflex to cultu re - 08/20/19 05:43 Urine color determination YELLOW NRG Urine clarity determination CLEAR NR G Urine pH measurement by test strip 7.0 5-9 Specific gravity of urine by test strip 1.010 1.016-1.022 Urine protein assay by test strip, semi-quantitative NEGATIVE NEGATIVE Urine glucose detection by automated test strip NE GATIVE NEGATIVE Erythrocytes detection in urine sediment by light micr oscopy 2+ NEGATIVE Urine ketones detection by automated test strip NE GATIVE NEGATIVE Urine nitrite detection by test strip NEGATIVE NEGATIVE Urine total bilirubin detection by test strip NEGA TIVE NEGATIVE Urine urobilinogen measurement by automated test strip (mass/volume) 0.2 mg/dL < = 1.0 Urine leukocyte esterase detection by dipstick NEG ATIVE NEGATIVE Automated urine sediment erythrocyte cou nt by microscopy (number/high power field) [HPF] NRG Automated urine sediment leukocyte count by microscopy (number/high power field) NONE NRG Bacteria detection in urine sediment by light microsco py TRACE NRG Squamous epithelial cells detection in u rine sediment by light microscopy RARE NRG Crystals detection in urine sediment by light microsco py NONE NRG Casts detection in urine sediment by light microscopy NONE NRG Mucus detection in urine sediment by light microscopy NEGATIVE NRG Complete urinalysis with reflex to culture NO NRG Capillary blood glucose measurement by g lucometer (mass/volume) - 08/20/19 11:49 Capillary blood glucose measurement by glucometer (mas s/volume) 109 mg/dL 70-110 Complete blood count (CBC) with automate d white blood cell (WBC) differential - 08/20/19 16:15 Blood leukocytes automated count (number/volume) 14.9 10*3/uL 4.3-11.0 Blood erythrocytes automated count (number/volume) 2.75 10*6/uL 4.35-5.85 Venous blood hemoglobin measurement (mass/volume) 9.1 g/dL 11.5-16.0 Blood hematocrit (volume fraction) 26 % 35-52 Automated erythrocyte mean corpuscular volume 96 [ foz_us] 80-99 Automated erythrocyte mean corpuscular h emoglobin (mass per erythrocyte) 33 pg 25-34 Automated erythrocyte mean corpuscular h emoglobin concentration measurement (mass/volume) 35 g/dL 32-36 Automated erythrocyte distribution width ratio 14. 1 % 10.0- 14.5 Automated blood platelet count (count/volume) 183 10*3/uL 130-400 Automated blood platelet mean volume measurement 8.2 [foz_us] 7.4-10.4 Automated blood neutrophils/100 leukocytes 85 % 42-75 Automated blood lymphocytes/100 leukocytes 10 % 12-44 Blood monocytes/100 leukocytes 5 % 0-12 Automated blood eosinophils/100 leukocytes 0 % 0-10 Automated blood basophils/100 leukocytes 0 % 0-10 Blood neutrophils automated count (number/volume) 12.6 10*3 1.8-7.8 Blood lymphocytes automated count (number/volume) 1.5 10*3 1.0-4.0 Blood monocytes automated count (number/volume) 0. 8 10*3 0.0-1.0 Automated eosinophil count 0.0 10*3/uL 0 .0-0.3 Automated blood basophil count (count/volume) 0.0 10*3/uL 0.0-0.1 Comprehensive metabolic panel - 08/20/19 16:15 Serum or plasma sodium measurement (moles/volume) 137 mmol/L 135-145 Serum or plasma potassium measurement (moles/volume) 3.0 mmol/L 3.6-5.0 Serum or plasma chloride measurement (moles/volume) 102 mmol/L 98-107 Carbon dioxide 27 mmol/L 21-32 Serum or plasma anion gap determination (moles/volume) 8 mmol/L 5-14 Serum or plasma urea nitrogen measurement (mass/volume ) 16 mg/dL 7-18 Serum or plasma creatinine measurement (mass/volume) 0.84 mg/dL 0.60-1.30 Serum or plasma urea nitrogen/creatinine mass ratio 19 NRG Serum or plasma creatinine measurement w ith calculation of estimated glomerular filtration rate > NRG Serum or plasma glucose measurement (mass/volume) 92 mg/dL 70-105 Serum or plasma calcium measurement (mass/volume) 7.6 mg/dL 8.5-10.1 Serum or plasma total bilirubin measurement (mass/volu me) 0.9 mg/dL 0.1-1.0 Serum or plasma alkaline phosphatase major surement (enzymatic activity/volume) 60 U/L 40-136 Serum or plasma aspartate aminotransfera se measurement (enzymatic activity/volume) 24 U/L 5-34 Serum or plasma alanine aminotransferase measurement (enzymatic activity/volume) 34 U/L 0-55 Serum or plasma protein measurement (mass/volume) 4.7 g/dL 6.4-8.2 Serum or plasma albumin measurement (mass/volume) 2.7 g/dL 3.2-4.5 CALCIUM CORRECTED 8.6 mg/dL 8.5-10.1 Magnesium - 08/20/19 16:15 Magnesium 1.7 mg/dL 1.6-2.4 Capillary blood glucose measurement by g lucometer (mass/volume) - 08/20/19 17:44 Capillary blood glucose measurement by glucometer (mas s/volume) 87 mg/dL 70-110 Capillary blood glucose measurement by g lucometer (mass/volume) - 08/20/19 23:55 Capillary blood glucose measurement by glucometer (mas s/volume) 88 mg/dL 70-110 Complete blood count (CBC) with automate d white blood cell (WBC) differential - 08/21/19 03:40 Blood leukocytes automated count (number/volume) 13.5 10*3/uL 4.3-11.0 Blood erythrocytes automated count (number/volume) 2.86 10*6/uL 4.35-5.85 Venous blood hemoglobin measurement (mass/volume) 9.2 g/dL 11.5-16.0 Blood hematocrit (volume fraction) 28 % 35-52 Automated erythrocyte mean corpuscular volume 96 [ foz_us] 80-99 Automated erythrocyte mean corpuscular h emoglobin (mass per erythrocyte) 32 pg 25-34 Automated erythrocyte mean corpuscular h emoglobin concentration measurement (mass/volume) 34 g/dL 32-36 Automated erythrocyte distribution width ratio 14. 1 % 10.0- 14.5 Automated blood platelet count (count/volume) 192 10*3/uL 130-400 Automated blood platelet mean volume measurement 8.5 [foz_us] 7.4-10.4 Automated blood neutrophils/100 leukocytes 79 % 42-75 Automated blood lymphocytes/100 leukocytes 13 % 12-44 Blood monocytes/100 leukocytes 6 % 0-12 Automated blood eosinophils/100 leukocytes 2 % 0-10 Automated blood basophils/100 leukocytes 0 % 0-10 Blood neutrophils automated count (number/volume) 10.7 10*3 1.8-7.8 Blood lymphocytes automated count (number/volume) 1.7 10*3 1.0-4.0 Blood monocytes automated count (number/volume) 0. 8 10*3 0.0-1.0 Automated eosinophil count 0.3 10*3/uL 0 .0-0.3 Automated blood basophil count (count/volume) 0.0 10*3/uL 0.0-0.1 Arterial blood gas measurement - 0 03:40 Blood pCO2 36 mm[Hg] 35-45 Blood pO2 59 mm[Hg] 79-93 Arterial blood bicarbonate measurement (moles/volume) 25 mmol/L 23-27 Arterial blood base excess by calculation 1.4 mmol /L -2.5-2.5 Arterial blood oxygen saturation measurement 89 % 94-100 * Inhaled oxygen flow rate 26 NRG Arterial blood pH measurement with patient temperature correction 7.46 7.37-7.43 Arterial blood carbon dioxide, total measurement (mole s/volume) 26.0 mmol/L 21.0-31.0 Body site RT RAD NRG Assessment of wrist artery patency prior to arterial p uncture POS NRG Setting of ventilation mode YES NR G Measurement of body temperature 36.8 NRG Whole blood basic metabolic panel - 07/26 02/10 03:40 Serum or plasma sodium measurement (moles/volume) 140 mmol/L 135-145 Serum or plasma potassium measurement (moles/volume) 3.4 mmol/L 3.6-5.0 Serum or plasma chloride measurement (moles/volume) 105 mmol/L 98-107 Carbon dioxide 23 mmol/L 21-32 Serum or plasma anion gap determination (moles/volume) 12 mmol/L 5-14 Serum or plasma urea nitrogen measurement (mass/volume ) 14 mg/dL 7-18 Serum or plasma creatinine measurement (mass/volume) 0.77 mg/dL 0.60-1.30 Serum or plasma urea nitrogen/creatinine mass ratio 18 NRG Serum or plasma creatinine measurement w ith calculation of estimated glomerular filtration rate > NRG Serum or plasma glucose measurement (mass/volume) 81 mg/dL 70-105 Serum or plasma calcium measurement (mass/volume) 8.2 mg/dL 8.5-10.1 Serum or plasma phosphate measurement (m ass/volume) - 08/21/19 03:40 Serum or plasma phosphate measurement (mass/volume) 3.2 mg/dL 2.3-4.7 Magnesium - 08/21/19 03:40 Magnesium 1.8 mg/dL 1.6-2.4 Arterial blood gas measurement - 0 06:49 Blood pCO2 36 mm[Hg] 35-45 Blood pO2 57 mm[Hg] 79-93 Arterial blood bicarbonate measurement (moles/volume) 26 mmol/L 23-27 Arterial blood base excess by calculation 2.4 mmol /L -2.5-2.5 Arterial blood oxygen saturation measurement 88 % 94-100 * Inhaled oxygen flow rate 21 NRG Arterial blood pH measurement with patient temperature correction 7.47 7.37-7.43 Arterial blood carbon dioxide, total measurement (mole s/volume) 27.0 mmol/L 21.0-31.0 Body site RIGHT RADIAL NRG Assessment of wrist artery patency prior to arterial p uncture POSITIVE NRG Setting of ventilation mode YES NR G Measurement of body temperature 36.8 NRG Capillary blood glucose measurement by g lucometer (mass/volume) - 08/21/19 12:02 Capillary blood glucose measurement by glucometer (mas s/volume) 93 mg/dL 70-110 Capillary blood glucose measurement by g lucometer (mass/volume) - 08/21/19 18:10 Capillary blood glucose measurement by glucometer (mas s/volume) 90 mg/dL 70-110 Whole blood basic metabolic panel - 02/2 8/20 23:55 Serum or plasma sodium measurement (moles/volume) 140 mmol/L 135-145 Serum or plasma potassium measurement (moles/volume) 3.2 mmol/L 3.6-5.0 Serum or plasma chloride measurement (moles/volume) 100 mmol/L 98-107 Carbon dioxide 26 mmol/L 21-32 Serum or plasma anion gap determination (moles/volume) 14 mmol/L 5-14 Serum or plasma urea nitrogen measurement (mass/volume ) 11 mg/dL 7-18 Serum or plasma creatinine measurement (mass/volume) 0.75 mg/dL 0.60-1.30 Serum or plasma urea nitrogen/creatinine mass ratio 15 NRG Serum or plasma creatinine measurement w ith calculation of estimated glomerular filtration rate > NRG Serum or plasma glucose measurement (mass/volume) 94 mg/dL 70-105 Serum or plasma calcium measurement (mass/volume) 8.5 mg/dL 8.5-10.1 Complete blood count (CBC) with automate d white blood cell (WBC) differential - 08/22/19 03:15 Blood leukocytes automated count (number/volume) 9.6 10*3/uL 4.3-11.0 Blood erythrocytes automated count (number/volume) 2.95 10*6/uL 4.35-5.85 Venous blood hemoglobin measurement (mass/volume) 9.5 g/dL 11.5-16.0 Blood hematocrit (volume fraction) 28 % 35-52 Automated erythrocyte mean corpuscular volume 96 [ foz_us] 80-99 Automated erythrocyte mean corpuscular h emoglobin (mass per erythrocyte) 32 pg 25-34 Automated erythrocyte mean corpuscular h emoglobin concentration measurement (mass/volume) 34 g/dL 32-36 Automated erythrocyte distribution width ratio 14. 0 % 10.0- 14.5 Automated blood platelet count (count/volume) 180 10*3/uL 130-400 Automated blood platelet mean volume measurement 8.9 [foz_us] 7.4-10.4 Automated blood neutrophils/100 leukocytes 76 % 42-75 Automated blood lymphocytes/100 leukocytes 15 % 12-44 Blood monocytes/100 leukocytes 6 % 0-12 Automated blood eosinophils/100 leukocytes 3 % 0-10 Automated blood basophils/100 leukocytes 0 % 0-10 Blood neutrophils automated count (number/volume) 7.3 10*3 1.8-7.8 Blood lymphocytes automated count (number/volume) 1.5 10*3 1.0-4.0 Blood monocytes automated count (number/volume) 0. 6 10*3 0.0-1.0 Automated eosinophil count 0.2 10*3/uL 0 .0-0.3 Automated blood basophil count (count/volume) 0.0 10*3/uL 0.0-0.1 Whole blood basic metabolic panel - 07/26 03/13 03:15 Serum or plasma sodium measurement (moles/volume) 139 mmol/L 135-145 Serum or plasma potassium measurement (moles/volume) 3.7 mmol/L 3.6-5.0 Serum or plasma chloride measurement (moles/volume) 100 mmol/L 98-107 Carbon dioxide 27 mmol/L 21-32 Serum or plasma anion gap determination (moles/volume) 12 mmol/L 5-14 Serum or plasma urea nitrogen measurement (mass/volume ) 11 mg/dL 7-18 Serum or plasma creatinine measurement (mass/volume) 0.72 mg/dL 0.60-1.30 Serum or plasma urea nitrogen/creatinine mass ratio 15 NRG Serum or plasma creatinine measurement w ith calculation of estimated glomerular filtration rate > NRG Serum or plasma glucose measurement (mass/volume) 95 mg/dL 70-105 Serum or plasma calcium measurement (mass/volume) 8.4 mg/dL 8.5-10.1 Serum or plasma phosphate measurement (m ass/volume) - 08/22/19 03:15 Serum or plasma phosphate measurement (mass/volume) 3.7 mg/dL 2.3-4.7 Magnesium - 08/22/19 03:15 Magnesium 1.6 mg/dL 1.6-2.4 C DIFFICILE AG + TOXIN A/B. - 08/22/19 0 9:20 RESULTS NEGATIVE FOR ANTIGEN AND TOXIN A/B NRG Capillary blood glucose measurement by g lucometer (mass/volume) - 08/22/19 11:33 Capillary blood glucose measurement by glucometer (mas s/volume) 99 mg/dL 70-110 Capillary blood glucose measurement by g lucometer (mass/volume) - 08/22/19 15:45 Capillary blood glucose measurement by glucometer (mas s/volume) 83 mg/dL 70-110 Capillary blood glucose measurement by g lucometer (mass/volume) - 08/22/19 20:50 Capillary blood glucose measurement by glucometer (mas s/volume) 106 mg/dL 70-110 Whole blood basic metabolic panel - 07/13 03:09 Serum or plasma sodium measurement (moles/volume) 138 mmol/L 135-145 Serum or plasma potassium measurement (moles/volume) 3.1 mmol/L 3.6-5.0 Serum or plasma chloride measurement (moles/volume) 99 mmol/L 98-107 Carbon dioxide 25 mmol/L 21-32 Serum or plasma anion gap determination (moles/volume) 14 mmol/L 5-14 Serum or plasma urea nitrogen measurement (mass/volume ) 13 mg/dL 7-18 Serum or plasma creatinine measurement (mass/volume) 0.79 mg/dL 0.60-1.30 Serum or plasma urea nitrogen/creatinine mass ratio 16 NRG Serum or plasma creatinine measurement w ith calculation of estimated glomerular filtration rate > NRG Serum or plasma glucose measurement (mass/volume) 100 mg/dL 70-105 Serum or plasma calcium measurement (mass/volume) 8.2 mg/dL 8.5-10.1 Serum or plasma phosphate measurement (m ass/volume) - 08/23/19 03:09 Serum or plasma phosphate measurement (mass/volume) 3.4 mg/dL 2.3-4.7 Magnesium - 08/23/19 03:09 Magnesium 1.4 mg/dL 1.6-2.4 Complete blood count (CBC) with automate d white blood cell (WBC) differential - 08/23/19 03:09 Blood leukocytes automated count (number/volume) 8.7 10*3/uL 4.3-11.0 Blood erythrocytes automated count (number/volume) 2.90 10*6/uL 4.35-5.85 Venous blood hemoglobin measurement (mass/volume) 9.3 g/dL 11.5-16.0 Blood hematocrit (volume fraction) 28 % 35-52 Automated erythrocyte mean corpuscular volume 98 [ foz_us] 80-99 Automated erythrocyte mean corpuscular h emoglobin (mass per erythrocyte) 32 pg 25-34 Automated erythrocyte mean corpuscular h emoglobin concentration measurement (mass/volume) 33 g/dL 32-36 Automated erythrocyte distribution width ratio 14. 0 % 10.0- 14.5 Automated blood platelet count (count/volume) 190 10*3/uL 130-400 Automated blood platelet mean volume measurement 9.4 [foz_us] 7.4-10.4 Automated blood neutrophils/100 leukocytes 65 % 42-75 Automated blood lymphocytes/100 leukocytes 24 % 12-44 Blood monocytes/100 leukocytes 6 % 0-12 Automated blood eosinophils/100 leukocytes 4 % 0-10 Automated blood basophils/100 leukocytes 0 % 0-10 Blood neutrophils automated count (number/volume) 5.7 10*3 1.8-7.8 Blood lymphocytes automated count (number/volume) 2.1 10*3 1.0-4.0 Blood monocytes automated count (number/volume) 0. 6 10*3 0.0-1.0 Automated eosinophil count 0.3 10*3/uL 0 .0-0.3 Automated blood basophil count (count/volume) 0.0 10*3/uL 0.0-0.1 Capillary blood glucose measurement by g lucometer (mass/volume) - 08/23/19 11:10 Capillary blood glucose measurement by glucometer (mas s/volume) 145 mg/dL 70-110 Capillary blood glucose measurement by g lucometer (mass/volume) - 08/23/19 16:02 Capillary blood glucose measurement by glucometer (mas s/volume) 115 mg/dL 70-110 Capillary blood glucose measurement by g lucometer (mass/volume) - 08/23/19 21:09 Capillary blood glucose measurement by glucometer (mas s/volume) 109 mg/dL 70-110 Complete blood count (CBC) with automate d white blood cell (WBC) differential - 08/24/19 05:05 Blood leukocytes automated count (number/volume) 5.7 10*3/uL 4.3-11.0 Blood erythrocytes automated count (number/volume) 2.63 10*6/uL 4.35-5.85 Venous blood hemoglobin measurement (mass/volume) 8.6 g/dL 11.5-16.0 Blood hematocrit (volume fraction) 26 % 35-52 Automated erythrocyte mean corpuscular volume 99 [ foz_us] 80-99 Automated erythrocyte mean corpuscular h emoglobin (mass per erythrocyte) 33 pg 25-34 Automated erythrocyte mean corpuscular h emoglobin concentration measurement (mass/volume) 33 g/dL 32-36 Automated erythrocyte distribution width ratio 13. 8 % 10.0- 14.5 Automated blood platelet count (count/volume) 183 10*3/uL 130-400 Automated blood platelet mean volume measurement 9.1 [foz_us] 7.4-10.4 Automated blood neutrophils/100 leukocytes 57 % 42-75 Automated blood lymphocytes/100 leukocytes 32 % 12-44 Blood monocytes/100 leukocytes 6 % 0-12 Automated blood eosinophils/100 leukocytes 4 % 0-10 Automated blood basophils/100 leukocytes 1 % 0-10 Blood neutrophils automated count (number/volume) 3.2 10*3 1.8-7.8 Blood lymphocytes automated count (number/volume) 1.8 10*3 1.0-4.0 Blood monocytes automated count (number/volume) 0. 3 10*3 0.0-1.0 Automated eosinophil count 0.3 10*3/uL 0 .0-0.3 Automated blood basophil count (count/volume) 0.0 10*3/uL 0.0-0.1 Whole blood basic metabolic panel - 08/13 05:05 Serum or plasma sodium measurement (moles/volume) 138 mmol/L 135-145 Serum or plasma potassium measurement (moles/volume) 3.2 mmol/L 3.6-5.0 Serum or plasma chloride measurement (moles/volume) 100 mmol/L 98-107 Carbon dioxide 28 mmol/L 21-32 Serum or plasma anion gap determination (moles/volume) 10 mmol/L 5-14 Serum or plasma urea nitrogen measurement (mass/volume ) 11 mg/dL 7-18 Serum or plasma creatinine measurement (mass/volume) 0.80 mg/dL 0.60-1.30 Serum or plasma urea nitrogen/creatinine mass ratio 14 NRG Serum or plasma creatinine measurement w ith calculation of estimated glomerular filtration rate > NRG Serum or plasma glucose measurement (mass/volume) 110 mg/dL 70-105 Serum or plasma calcium measurement (mass/volume) 7.9 mg/dL 8.5-10.1 Serum or plasma phosphate measurement (m ass/volume) - 08/24/19 05:05 Serum or plasma phosphate measurement (mass/volume) 4.1 mg/dL 2.3-4.7 Magnesium - 08/24/19 05:05 Magnesium 1.9 mg/dL 1.6-2.4 Capillary blood glucose measurement by g lucometer (mass/volume) - 08/24/19 05:29 Capillary blood glucose measurement by glucometer (mas s/volume) 112 mg/dL 70-110 Capillary blood glucose measurement by g lucometer (mass/volume) - 08/24/19 11:21 Capillary blood glucose measurement by glucometer (mas s/volume) 139 mg/dL 70-110 Capillary blood glucose measurement by g lucometer (mass/volume) - 08/24/19 16:35 Capillary blood glucose measurement by glucometer (mas s/volume) 165 mg/dL 70-110 Capillary blood glucose measurement by g lucometer (mass/volume) - 08/24/19 21:21 Capillary blood glucose measurement by glucometer (mas s/volume) 111 mg/dL 70-110 Complete blood count (CBC) with automate d white blood cell (WBC) differential - 08/25/19 04:17 Blood leukocytes automated count (number/volume) 7.9 10*3/uL 4.3-11.0 Blood erythrocytes automated count (number/volume) 2.74 10*6/uL 4.35-5.85 Venous blood hemoglobin measurement (mass/volume) 9.0 g/dL 11.5-16.0 Blood hematocrit (volume fraction) 28 % 35-52 Automated erythrocyte mean corpuscular volume 101 [foz_us] 80-99 Automated erythrocyte mean corpuscular h emoglobin (mass per erythrocyte) 33 pg 25-34 Automated erythrocyte mean corpuscular h emoglobin concentration measurement (mass/volume) 33 g/dL 32-36 Automated erythrocyte distribution width ratio 13. 8 % 10.0- 14.5 Automated blood platelet count (count/volume) 205 10*3/uL 130-400 Automated blood platelet mean volume measurement 9.4 [foz_us] 7.4-10.4 Automated blood neutrophils/100 leukocytes 69 % 42-75 Automated blood lymphocytes/100 leukocytes 22 % 12-44 Blood monocytes/100 leukocytes 7 % 0-12 Automated blood eosinophils/100 leukocytes 3 % 0-10 Automated blood basophils/100 leukocytes 0 % 0-10 Blood neutrophils automated count (number/volume) 5.4 10*3 1.8-7.8 Blood lymphocytes automated count (number/volume) 1.7 10*3 1.0-4.0 Blood monocytes automated count (number/volume) 0. 5 10*3 0.0-1.0 Automated eosinophil count 0.2 10*3/uL 0 .0-0.3 Automated blood basophil count (count/volume) 0.0 10*3/uL 0.0-0.1 Comprehensive metabolic panel - 08/25/19 04:17 Serum or plasma sodium measurement (moles/volume) 139 mmol/L 135-145 Serum or plasma potassium measurement (moles/volume) 3.2 mmol/L 3.6-5.0 Serum or plasma chloride measurement (moles/volume) 100 mmol/L 98-107 Carbon dioxide 28 mmol/L 21-32 Serum or plasma anion gap determination (moles/volume) 11 mmol/L 5-14 Serum or plasma urea nitrogen measurement (mass/volume ) 8 mg/dL 7-18 Serum or plasma creatinine measurement (mass/volume) 0.72 mg/dL 0.60-1.30 Serum or plasma urea nitrogen/creatinine mass ratio 11 NRG Serum or plasma creatinine measurement w ith calculation of estimated glomerular filtration rate > NRG Serum or plasma glucose measurement (mass/volume) 95 mg/dL 70-105 Serum or plasma calcium measurement (mass/volume) 8.3 mg/dL 8.5-10.1 Serum or plasma total bilirubin measurement (mass/volu me) 0.4 mg/dL 0.1-1.0 Serum or plasma alkaline phosphatase major surement (enzymatic activity/volume) 66 U/L 40-136 Serum or plasma aspartate aminotransfera se measurement (enzymatic activity/volume) 20 U/L 5-34 Serum or plasma alanine aminotransferase measurement (enzymatic activity/volume) 25 U/L 0-55 Serum or plasma protein measurement (mass/volume) 5.6 g/dL 6.4-8.2 Serum or plasma albumin measurement (mass/volume) 3.0 g/dL 3.2-4.5 CALCIUM CORRECTED 9.1 mg/dL 8.5-10.1 Serum or plasma phosphate measurement (m ass/volume) - 08/25/19 04:17 Serum or plasma phosphate measurement (mass/volume) 3.4 mg/dL 2.3-4.7 Magnesium - 08/25/19 04:17 Magnesium 1.5 mg/dL 1.6-2.4 Capillary blood glucose measurement by g lucometer (mass/volume) - 08/25/19 11:16 Capillary blood glucose measurement by glucometer (mas s/volume) 149 mg/dL 70-110 TIBC - 09/02/19 06:10 Iron 49 ug/dL 70-200 Iron Saturation 17.90 % 15.00-55.00 TIBC 274 ug/dL 273-456 UIBC 219 ug/dL 200-370 PT panel in platelet poor plasma by coag ulation assay - 10/28/19 22:10 Prothrombin time (PT) in platelet poor plasma by coagu lation assay 13.4 s 12.2-14.7 INR in platelet poor plasma or blood by coagulation as say 1.0 0.8-1.4 Activated partial thromboplastin time (a PTT) in platelet poor plasma bycoagulation assay - 10/28/19 22:10 Activated partial thromboplastin time (a PTT) in platelet poor plasma bycoagulation assay 38 s 24-35 Fibrin D-dimer FEU measurement in platel et poor plasma (mass/volume) - 10/28/19 22:10 Fibrin D-dimer FEU measurement in platelet poor plasma (mass/volume) 0.64 ug/mL 0.00-0.49 Complete blood count (CBC) with automate d white blood cell (WBC) differential - 10/28/19 22:10 Blood leukocytes automated count (number/volume) 7.3 10*3/uL 4.3-11.0 Blood erythrocytes automated count (number/volume) 3.69 10*6/uL 4.35-5.85 Venous blood hemoglobin measurement (mass/volume) 12.3 g/dL 11.5-16.0 Blood hematocrit (volume fraction) 36 % 35-52 Automated erythrocyte mean corpuscular volume 96 [ foz_us] 80-99 Automated erythrocyte mean corpuscular h emoglobin (mass per erythrocyte) 33 pg 25-34 Automated erythrocyte mean corpuscular h emoglobin concentration measurement (mass/volume) 35 g/dL 32-36 Automated erythrocyte distribution width ratio 14. 4 % 10.0- 14.5 Automated blood platelet count (count/volume) 263 10*3/uL 130-400 Automated blood platelet mean volume measurement 8.9 [foz_us] 7.4-10.4 Automated blood neutrophils/100 leukocytes 71 % 42-75 Automated blood lymphocytes/100 leukocytes 22 % 12-44 Blood monocytes/100 leukocytes 6 % 0-12 Automated blood eosinophils/100 leukocytes 1 % 0-10 Automated blood basophils/100 leukocytes 0 % 0-10 Blood neutrophils automated count (number/volume) 5.2 10*3 1.8-7.8 Blood lymphocytes automated count (number/volume) 1.6 10*3 1.0-4.0 Blood monocytes automated count (number/volume) 0. 4 10*3 0.0-1.0 Automated eosinophil count 0.1 10*3/uL 0 .0-0.3 Automated blood basophil count (count/volume) 0.0 10*3/uL 0.0-0.1 Comprehensive metabolic panel - 10/28/19 22:10 Serum or plasma sodium measurement (moles/volume) 126 mmol/L 135-145 Serum or plasma potassium measurement (moles/volume) 4.4 mmol/L 3.6-5.0 Serum or plasma chloride measurement (moles/volume) 94 mmol/L 98-107 Carbon dioxide 21 mmol/L 21-32 Serum or plasma anion gap determination (moles/volume) 11 mmol/L 5-14 Serum or plasma urea nitrogen measurement (mass/volume ) 12 mg/dL 7-18 Serum or plasma creatinine measurement (mass/volume) 0.91 mg/dL 0.60-1.30 Serum or plasma urea nitrogen/creatinine mass ratio 13 NRG Serum or plasma creatinine measurement w ith calculation of estimated glomerular filtration rate > NRG Serum or plasma glucose measurement (mass/volume) 145 mg/dL 70-105 Serum or plasma calcium measurement (mass/volume) 8.7 mg/dL 8.5-10.1 Serum or plasma total bilirubin measurement (mass/volu me) 0.2 mg/dL 0.1-1.0 Serum or plasma alkaline phosphatase major surement (enzymatic activity/volume) 76 U/L 40-136 Serum or plasma aspartate aminotransfera se measurement (enzymatic activity/volume) 29 U/L 5-34 Serum or plasma alanine aminotransferase measurement (enzymatic activity/volume) 27 U/L 0-55 Serum or plasma protein measurement (mass/volume) 6.7 g/dL 6.4-8.2 Serum or plasma albumin measurement (mass/volume) 4.1 g/dL 3.2-4.5 CALCIUM CORRECTED 8.6 mg/dL 8.5-10.1 Blood lactic acid measurement (moles/vol ume) - 10/28/19 22:10 Blood lactic acid measurement (moles/volume) 1.65 mmol/L 0.50-2.00 Magnesium - 10/28/19 22:10 Magnesium 1.8 mg/dL 1.6-2.4 Serum ragweed IgE antibody assay - 10/27 22:10 Serum ragweed IgE antibody assay 134 U/L 125-220 PROCALCITONIN (PCT) - 10/28/19 22:10 PROCALCITONIN (PCT) 0.10 ng/mL <0.10 Serum or plasma creatine kinase measurem ent (enzymatic activity/volume) - 10/28/19 22:10 Serum or plasma creatine kinase measurem ent (enzymatic activity/volume) 31 U/L 29-168 Serum or plasma creatine kinase MB measu rement (enzymatic activity/volume) - 10/28/19 22:10 Serum or plasma creatine kinase MB measu rement (enzymatic activity/volume) 0.8 ng/mL <6.6 Serum or plasma troponin i.cardiac measu rement (mass/volume) - 10/28/19 22:10 Serum or plasma troponin i.cardiac measurement (mass/v olume) < ng/mL <0.028 Myoglobin, serum - 10/28/19 22:10 Myoglobin, serum 28.1 ng/mL 10.0-92.0 Serum or plasma amylase measurement (enz ymatic activity/volume) - 10/28/19 22:10 Serum or plasma amylase measurement (enzymatic activit y/volume) 119 U/L 25-125 Lipase - 10/28/19 22:10 Lipase 91 U/L 8-78 Ammonia - 10/28/19 22:10 Ammonia 32 umol/L 11-32 Serum or plasma thyrotropin measurement by detection limit <=0.05 miu/l (units/volume) - 10/28/19 22:10 Serum or plasma thyrotropin measurement by detection limit <=0.05 miu/l (units/volume) 1.59 u[iU]/mL 0.35-4.94 Serum or plasma C reactive protein measu rement (mass/volume) - 10/28/19 22:10 Serum or plasma C reactive protein measurement (mass/v olume) 0.37 mg/dL 0.00-0.50 Serum or plasma salicylates measurement (mass/volume) - 10/28/19 22:10 Serum or plasma salicylates measurement (mass/volume) < mg/dL 5.0-20.0 Serum or plasma lithium measurement (mol es/volume) - 10/28/19 22:10 BNP PT 11.4 pg/mL <100.0 Serum or plasma acetaminophen measuremen t (mass/volume) - 10/28/19 22:10 Serum or plasma acetaminophen measurement (mass/volume ) < ug/mL 10-30 Serum or plasma ethanol measurement (mas s/volume) - 10/28/19 22:10 Serum or plasma ethanol measurement (mass/volume) < mg/dL <10 Erythrocyte sedimentation rate by george gren method - 10/28/19 22:10 Erythrocyte sedimentation rate by westergren method 22 mm 0- 30 Bacterial blood culture - 10/28/19 22:10 FREE TEXT EXTERNAL AT THIS TIME NRG QUANTITY OF GROWTH Isolated NRG Bacterial blood culture [id number] NRG SUSCEPTIBILITY FROM BOTH BOTTLES OF THIS CULTURE NRG MRSA SCREEN NO SUSCEPTIBILITY PERFORMED NRG MRSA CONFIRMATION SEE COMMENT NRG ID CONFIRMATION OTHER BLOOD CULTURE IS NO GROWTH NRG Coronavirus SARS-CoV-2 SO 2018 - 0 22:10 Coronavirus Ab [Units/volume] in Serum Negative Negative Capillary blood glucose measurement by g lucometer (mass/volume) - 10/28/19 22:13 Capillary blood glucose measurement by glucometer (mas s/volume) 151 mg/dL 70-110 Bacterial blood culture - 10/28/19 22:15 Bacterial blood culture NG NRG Influenza virus A and B antigen detectio n - 10/28/19 22:20 FLU RESULT NEGATIVE FOR INFLUENZA A AND B ANTIGENS BY IA NRG Complete urinalysis with reflex to cultu re - 10/28/19 22:41 Urine color determination YELLOW NRG Urine clarity determination CLEAR NR G Urine pH measurement by test strip 6.0 5-9 Specific gravity of urine by test strip <= 1.016-1.022 Urine protein assay by test strip, semi-quantitative NEGATIVE NEGATIVE Urine glucose detection by automated test strip NE GATIVE NEGATIVE Erythrocytes detection in urine sediment by light micr oscopy NEGATIVE NEGATIVE Urine ketones detection by automated test strip NE GATIVE NEGATIVE Urine nitrite detection by test strip NEGATIVE NEGATIVE Urine total bilirubin detection by test strip NEGA TIVE NEGATIVE Urine urobilinogen measurement by automated test strip (mass/volume) 0.2 mg/dL < = 1.0 Urine leukocyte esterase detection by dipstick NEG ATIVE NEGATIVE Automated urine sediment erythrocyte cou nt by microscopy (number/high power field) NONE NRG Automated urine sediment leukocyte count by microscopy (number/high power field) [HPF] NRG Bacteria detection in urine sediment by light microsco py NEGATIVE NRG Squamous epithelial cells detection in u rine sediment by light microscopy RARE NRG Crystals detection in urine sediment by light microsco py NONE NRG Casts detection in urine sediment by light microscopy NONE NRG Mucus detection in urine sediment by light microscopy NEGATIVE NRG Complete urinalysis with reflex to culture NO NRG Urine drug screening test - 10/28/19 22: 41 Urine phencyclidine detection by screening method NEGATIVE NEGATIVE Urine benzodiazepines detection by screening method POSITIVE NEGATIVE Urine cocaine detection NEGATIVE NEGATI VE Urine amphetamines detection by screening method N EGATIVE NEGATIVE Urine methamphetamine detection by screening method NEGATIVE NEGATIVE Urine cannabinoids detection by screening method N EGATIVE NEGATIVE Urine opiates detection by screening method POSITI VE NEGATIVE Urine barbiturates detection NEGATIVE N EGATIVE Screening urine tricyclic antidepressants detection NEGATIVE NEGATIVE Urine methadone detection by screening method NEGA TIVE NEGATIVE Urine oxycodone detection NEGATIVE NEGA TIVE Urine propoxyphene detection NEGATIVE N EGATIVE ADENOVIRUS DETECTION BY PCR - 10/28/19 2 2:41 Adenovirus detection, CSF, PCR Not Detected Not Detected PARAINFLUENZA VIRUS 1,2,3 PCR - 10/28/19 22:41 Serum or plasma aripiprazole measurement (mass/volume) Not Detected Not Detected PARAINFLU 3 PCR Not Detected Not Detect ed Arterial blood gas measurement - 0 23:32 Blood pCO2 45 mm[Hg] 35-45 Blood pO2 78 mm[Hg] 79-93 Arterial blood bicarbonate measurement (moles/volume) 22 mmol/L 23-27 Arterial blood base excess by calculation -3.6 mmo l/L -2.5-2.5 Arterial blood oxygen saturation measurement 96 % 94-100 * Inhaled oxygen flow rate ROOM AIR NRG Arterial blood pH measurement with patient temperature correction 7.31 7.37-7.43 Arterial blood carbon dioxide, total measurement (mole s/volume) 23.2 mmol/L 21.0-31.0 Body site LEFT WRIST NRG Assessment of wrist artery patency prior to arterial p uncture P NRG Setting of ventilation mode NO NR G Measurement of body temperature 36.7 NRG Complete blood count (CBC) with automate d white blood cell (WBC) differential - 10/29/19 03:20 Blood leukocytes automated count (number/volume) 6.1 10*3/uL 4.3-11.0 Blood erythrocytes automated count (number/volume) 3.34 10*6/uL 4.35-5.85 Venous blood hemoglobin measurement (mass/volume) 11.1 g/dL 11.5-16.0 Blood hematocrit (volume fraction) 33 % 35-52 Automated erythrocyte mean corpuscular volume 98 [ foz_us] 80-99 Automated erythrocyte mean corpuscular h emoglobin (mass per erythrocyte) 33 pg 25-34 Automated erythrocyte mean corpuscular h emoglobin concentration measurement (mass/volume) 34 g/dL 32-36 Automated erythrocyte distribution width ratio 14. 6 % 10.0- 14.5 Automated blood platelet count (count/volume) 224 10*3/uL 130-400 Automated blood platelet mean volume measurement 8.8 [foz_us] 7.4-10.4 Automated blood neutrophils/100 leukocytes 70 % 42-75 Automated blood lymphocytes/100 leukocytes 22 % 12-44 Blood monocytes/100 leukocytes 7 % 0-12 Automated blood eosinophils/100 leukocytes 0 % 0-10 Automated blood basophils/100 leukocytes 0 % 0-10 Blood neutrophils automated count (number/volume) 4.3 10*3 1.8-7.8 Blood lymphocytes automated count (number/volume) 1.4 10*3 1.0-4.0 Blood monocytes automated count (number/volume) 0. 4 10*3 0.0-1.0 Automated eosinophil count 0.0 10*3/uL 0 .0-0.3 Automated blood basophil count (count/volume) 0.0 10*3/uL 0.0-0.1 Comprehensive metabolic panel - 10/29/19 03:20 Serum or plasma sodium measurement (moles/volume) 135 mmol/L 135-145 Serum or plasma potassium measurement (moles/volume) 4.6 mmol/L 3.6-5.0 Serum or plasma chloride measurement (moles/volume) 106 mmol/L 98-107 Carbon dioxide 19 mmol/L 21-32 Serum or plasma anion gap determination (moles/volume) 10 mmol/L 5-14 Serum or plasma urea nitrogen measurement (mass/volume ) 11 mg/dL 7-18 Serum or plasma creatinine measurement (mass/volume) 0.79 mg/dL 0.60-1.30 Serum or plasma urea nitrogen/creatinine mass ratio 14 NRG Serum or plasma creatinine measurement w ith calculation of estimated glomerular filtration rate > NRG Serum or plasma glucose measurement (mass/volume) 109 mg/dL 70-105 Serum or plasma calcium measurement (mass/volume) 8.0 mg/dL 8.5-10.1 Serum or plasma total bilirubin measurement (mass/volu me) 0.2 mg/dL 0.1-1.0 Serum or plasma alkaline phosphatase major surement (enzymatic activity/volume) 65 U/L 40-136 Serum or plasma aspartate aminotransfera se measurement (enzymatic activity/volume) 22 U/L 5-34 Serum or plasma alanine aminotransferase measurement (enzymatic activity/volume) 23 U/L 0-55 Serum or plasma protein measurement (mass/volume) 5.9 g/dL 6.4-8.2 Serum or plasma albumin measurement (mass/volume) 3.7 g/dL 3.2-4.5 CALCIUM CORRECTED 8.2 mg/dL 8.5-10.1 Capillary blood glucose measurement by g lucometer (mass/volume) - 10/29/19 11:04 Capillary blood glucose measurement by glucometer (mas s/volume) 99 mg/dL 70-110 Complete blood count (CBC) with automate d white blood cell (WBC) differential - 11/02/19 18:20 Blood leukocytes automated count (number/volume) 6.3 10*3/uL 4.3-11.0 Blood erythrocytes automated count (number/volume) 3.39 10*6/uL 4.35-5.85 Venous blood hemoglobin measurement (mass/volume) 11.3 g/dL 11.5-16.0 Blood hematocrit (volume fraction) 34 % 35-52 Automated erythrocyte mean corpuscular volume 99 [ foz_us] 80-99 Automated erythrocyte mean corpuscular h emoglobin (mass per erythrocyte) 33 pg 25-34 Automated erythrocyte mean corpuscular h emoglobin concentration measurement (mass/volume) 34 g/dL 32-36 Automated erythrocyte distribution width ratio 14. 8 % 10.0- 14.5 Automated blood platelet count (count/volume) 265 10*3/uL 130-400 Automated blood platelet mean volume measurement 8.5 [foz_us] 7.4-10.4 Automated blood neutrophils/100 leukocytes 59 % 42-75 Automated blood lymphocytes/100 leukocytes 33 % 12-44 Blood monocytes/100 leukocytes 7 % 0-12 Automated blood eosinophils/100 leukocytes 1 % 0-10 Automated blood basophils/100 leukocytes 0 % 0-10 Blood neutrophils automated count (number/volume) 3.7 10*3 1.8-7.8 Blood lymphocytes automated count (number/volume) 2.1 10*3 1.0-4.0 Blood monocytes automated count (number/volume) 0. 4 10*3 0.0-1.0 Automated eosinophil count 0.1 10*3/uL 0 .0-0.3 Automated blood basophil count (count/volume) 0.0 10*3/uL 0.0-0.1 Comprehensive metabolic panel - 11/02/19 18:20 Serum or plasma sodium measurement (moles/volume) 130 mmol/L 135-145 Serum or plasma potassium measurement (moles/volume) 4.4 mmol/L 3.6-5.0 Serum or plasma chloride measurement (moles/volume) 96 mmol/L 98-107 Carbon dioxide 25 mmol/L 21-32 Serum or plasma anion gap determination (moles/volume) 9 mmol/L 5-14 Serum or plasma urea nitrogen measurement (mass/volume ) 11 mg/dL 7-18 Serum or plasma creatinine measurement (mass/volume) 0.75 mg/dL 0.60-1.30 Serum or plasma urea nitrogen/creatinine mass ratio 15 NRG Serum or plasma creatinine measurement w ith calculation of estimated glomerular filtration rate > NRG Serum or plasma glucose measurement (mass/volume) 88 mg/dL 70-105 Serum or plasma calcium measurement (mass/volume) 9.2 mg/dL 8.5-10.1 Serum or plasma total bilirubin measurement (mass/volu me) 0.2 mg/dL 0.1-1.0 Serum or plasma alkaline phosphatase major surement (enzymatic activity/volume) 78 U/L 40-136 Serum or plasma aspartate aminotransfera se measurement (enzymatic activity/volume) 28 U/L 5-34 Serum or plasma alanine aminotransferase measurement (enzymatic activity/volume) 26 U/L 0-55 Serum or plasma protein measurement (mass/volume) 6.6 g/dL 6.4-8.2 Serum or plasma albumin measurement (mass/volume) 4.3 g/dL 3.2-4.5 CALCIUM CORRECTED 9.0 mg/dL 8.5-10.1 Complete urinalysis with reflex to cultu re - 11/02/19 18:32 Urine color determination YELLOW NRG Urine clarity determination CLEAR NR G Urine pH measurement by test strip 6.0 5-9 Specific gravity of urine by test strip <= 1.016-1.022 Urine protein assay by test strip, semi-quantitative NEGATIVE NEGATIVE Urine glucose detection by automated test strip NE GATIVE NEGATIVE Erythrocytes detection in urine sediment by light micr oscopy NEGATIVE NEGATIVE Urine ketones detection by automated test strip NE GATIVE NEGATIVE Urine nitrite detection by test strip NEGATIVE NEGATIVE Urine total bilirubin detection by test strip NEGA TIVE NEGATIVE Urine urobilinogen measurement by automated test strip (mass/volume) 0.2 mg/dL < = 1.0 Urine leukocyte esterase detection by dipstick NEG ATIVE NEGATIVE Automated urine sediment erythrocyte cou nt by microscopy (number/high power field) NONE NRG Automated urine sediment leukocyte count by microscopy (number/high power field) RARE NRG Bacteria detection in urine sediment by light microsco py TRACE NRG Squamous epithelial cells detection in u rine sediment by light microscopy 5-10 NRG Crystals detection in urine sediment by light microsco py NONE NRG Casts detection in urine sediment by light microscopy NONE NRG Mucus detection in urine sediment by light microscopy NEGATIVE NRG Complete urinalysis with reflex to culture NO NRG Urine drug screening test - 11/02/19 18: 32 Urine phencyclidine detection by screening method NEGATIVE NEGATIVE Urine benzodiazepines detection by screening method POSITIVE NEGATIVE Urine cocaine detection NEGATIVE NEGATI VE Urine amphetamines detection by screening method N EGATIVE NEGATIVE Urine methamphetamine detection by screening method NEGATIVE NEGATIVE Urine cannabinoids detection by screening method N EGATIVE NEGATIVE Urine opiates detection by screening method POSITI VE NEGATIVE Urine barbiturates detection NEGATIVE N EGATIVE Screening urine tricyclic antidepressants detection NEGATIVE NEGATIVE Urine methadone detection by screening method NEGA TIVE NEGATIVE Urine oxycodone detection NEGATIVE NEGA TIVE Urine propoxyphene detection NEGATIVE N EGATIVE Encounters ACCT No. Visit Date/Time Discharge Status Pt. Type Provider Facility Loc./Unit Complaint [id number] 10/04/2014 14:43:00 10/04/2014 23:59: 59 KANG RAYO PHD, FILIPPO Crain [id number] 09/03/2014 13:47:00 09/03/2014 23:59: 59 CLS Outpatient [facility] [facility] [id number] 08/06/2014 13:54:00 08/06/2014 23:59: 59 CLS Outpatient [facility] [employer] [facility] [id number] 07/06/2014 08:37:00 07/06/2014 23:59: 59 CLS Outpatient ADALBERTO JIN DO Juan [id number] 06/22/2014 11:35:00 06/22/2014 23:59: 59 CLS Outpatient [facility] [employer] [id number] 06/03/2014 08:57:00 06/03/2014 23:59: 59 CLS Outpatient ADALBERTO JIN DO Juan [id number] 05/04/2014 10:13:00 05/04/2014 23:59: 59 CLS Outpatient [facility] [employer] [id number] 04/06/2014 09:00:00 04/06/2014 23:59: 59 CLS Outpatient ADALBERTO JIN DO Juan [id number] 03/09/2014 09:56:00 03/09/2014 23:59: 59 CLS Outpatient [facility] [employer] [id number] 02/04/2014 10:37:00 02/04/2014 23:59: 59 CLS Outpatient [facility] [employer] [id number] 01/12/2014 09:01:00 01/12/2014 23:59: 59 CLS Outpatient ADALBERTO JIN DO Juan [id number] 08/16/2019 23:15:00 13:44:00 DIS Inpatient MADELEINE GARCIA, CEDRICK Ruiz [facility] 4TH RESP FAILUIRE, SEPTIC S HOCK [id number] 09/02/2019 06:08:00 09/02/2019 23:59 :00 DIS Outpatient Richi Multani [id number] 11/02/2019 17:56:00 19:29:00 DIS Emergency 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 DIARRHEA [id number] 10/28/2019 21:56:00 17:17:00 DIS Inpatient ODALYS GARCIA, SPENCER Crain [facility] ICU AMS;HYPONATREMIA;POSSIB LE VASOVAGAL SYNCOPE; [id number] 12/07/2017 09:04:00 018 23:59:59 CLS Outpatient LIZZETTE CAMP MD [facility] RAD CVA,RT SIDED WEAKNESS,S LURRING SPEECH [id number] 07/16/2017 14:14:00 018 15:54:00 DIS Outpatient OSCAR MARTIN [facility] REHAB NECK AND THORACIC PAIN [id number] 08/01/2017 18:50:00 018 21:02:00 DIS Emergency ANDRE WINTER [facility] ER COUGH [id number] 05/02/2017 10:38:00 017 23:59:59 CLS Outpatient OSCAR MARTIN [facility] RAD NECK PAIN,THORACIC PAIN [id number] 02/04/2017 16:56:00 017 18:18:00 DIS Emergency SRUTHI SCHUMACHER DO [facility] ER LT LEG SWELLING POST BA CK SURG 01/28 [id number] 12/31/2016 13:43:00 017 11:09:00 DIS Outpatient PAMELA SHARPE DO [facility] REHAB LUMBAR RADICULOPATHY [id number] 12/13/2016 15:24:00 017 23:59:59 CLS Outpatient PAMELA SHARPE DO [facility] RAD BACK PAIN [id number] 11/25/2016 03:50:00 017 11:40:00 DIS Inpatient CODY WARE MD [facility] 4TH AMS; SUSPECTED OPIATE MISUSE [id number] 11/22/2016 15:52:00 017 17:30:00 DIS Emergency PHILIP GILMORE APRN [facility] ER BACK PAIN [id number] 06/13/2016 15:34:00 016 19:09:00 DIS Emergency GINI MULTANI MD [facility] ER BACK PAIN [id number] 06/23/2015 13:39:00 015 16:15:00 DIS Emergency 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
== END 2019-10-29 17:17 | disposition home or self-care (01) ==
LOC: EDUNIT# 21:54 → ER 21:55 → ICU 21:56 → UNDOADMOB 10-29 00:05 → INTOOBSV 10-29 00:05 → ICU 10-29 00:05 → UNDODISOB 10-29 17:17
PROVIDERS: ADMIT Internal Medicine; ATTEND Internal Medicine
DX: R55 Syncope and collapse (principal); R41.82 Altered mental status, unspecified; J44.9 Chronic obstructive pulmonary disease, unspecified; I10 Essential (primary) hypertension; K21.9 Gastro-esophageal reflux disease without esophagitis; G43.909 Migraine, unspecified, not intractable, without status migrainosus; G89.29 Other chronic pain; M54.9 Dorsalgia, unspecified; E11.9 Type 2 diabetes mellitus without complications; E78.1 Pure hyperglyceridemia; E78.00 Pure hypercholesterolemia, unspecified; F17.210 Nicotine dependence, cigarettes, uncomplicated; F32.9 Major depressive disorder, single episode, unspecified; F41.9 Anxiety disorder, unspecified; Z90.710 Acquired absence of both cervix and uterus; Z90.89 Acquired absence of other organs; Z98.51 Tubal ligation status; Z88.8 Allergy status to other drugs, medicaments and biological substances; Z88.7 Allergy status to serum and vaccine; Z88.6 Allergy status to analgesic agent; Z79.82 Long term (current) use of aspirin; Z79.84 Long term (current) use of oral hypoglycemic drugs; Z79.891 Long term (current) use of opiate analgesic; Z79.899 Other long term (current) drug therapy; Z20.828 Contact with and (suspected) exposure to other viral communicable diseases
CPT/HCPCS: 51702; 70450; 71045; 80053 ×2; 80306; 81000; 82140; 82150; 82550; 82553; 82805; 82962 ×2; 83605; 83615; 83690; 83735; 83874; 83880; 84145; 84443; 84484; 85025 ×2; 85379; 85610; 85652; 85730; 86141; 87040; 87631; 87798; 87804; 93005; 93041; 96361; 96372; 96374; 99285; G0480 ×3; U0002; 36415; 80320; 80329; 87635; 99291; 99292

== ENCOUNTER 2019-11-02 17:55 | Emergency (ER) | payer MEDICARE, MEDICAID ==
[~2019-11-02] VITALS: Ht 167.7 cm; Wt 109.6 kg
[~2019-11-02 17:55] MED LIST changes: -METF-865 PO; +METF500T19 PO
[2019-11-02] MEDS ORDERED: LACTATED RINGERS 1,000 ML IV SCH (18:15)
[2019-11-02] MEDS ORDERED: LOPERAMIDE 2 MG (IMODIUM) TABLET PO ONE (18:15)
--- NOTE | 2019-11-02 18:25 | ED Abdominal Pain ---
General Stated Complaint: DIARRHEA Source of Information: Patient Exam Limitations: No Limitations History of Present Illness Date Seen by Provider: November 02, 2019 Time Seen by Provider: 18:24 Initial Comments To ER with reports of diarrhea dark in color and suprapubic abdominal cramping. She's been on multiple antibiotics recently for a variety of infections, denies fevers or cough or shortness of breath. Timing/Duration: 2-3 Days Severity/Quality: Moderate, Cramping Location: Suprapubic Radiation: No Radiation Activities at Onset: None Allergies and Home Medications Allergies Coded Allergies: Influenza Virus Vaccines (Verified Allergy, Unknown, 08/26/19) tramadol (Unverified Allergy, Unknown, 11/22/16) Uncoded Allergies: PNEUMONIA SHOT (Allergy, Unknown, 11/22/16) Home Medications Albuterol Sulfate 8.5 Gm Hfa.aer.ad, 8.5 GM IH Q4H Prescribed by: PHILIP GILMORE on 06/23/15 155 Albuterol Sulfate 6.7 Gm Hfa.aer.ad, 2 PUFF IH Q4H PRN for SHORTNESS OF BREATH Prescribed by: ANDRE LORD on 08/01/172053 Albuterol Sulfate 18 Gm Hfa.aer.ad, 2 PUFF PO Q4H PRN for SHORTNESS OF BREATH, (Reported) Alprazolam 0.5 Mg Tablet, 0.5 MG PO DAILY, (Reported) Aspirin 81 Mg Tablet.dr, 81 MG PO DAILY, (Reported) Benzonatate 200 Mg Capsule, 200 MG PO Q8H PRN for COUGH Prescribed by: ANDRE LORD on 08/01/172053 Budesonide/Formoterol Fumarate 10.2 Gm Hfa.aer.ad, 2 PUFF IH BID, (Reported) Bupropion HCl 150 Mg Tablet.er, 150 MG PO BID, (Reported) Diazepam 10 Mg Tablet, 5-10 MG PO HS, (Reported) Diclofenac Sodium 75 Mg Tablet.dr, 75 MG PO BID, (Reported) Docusate Sodium 100 Mg Capsule, 100 MG PO DAILY PRN PRN for CONSTIPATION-1ST LINE Prescribed by: CEDRICK SALVADOR on 08/24/19 1315 Escitalopram Oxalate 20 Mg Tablet, 20 MG PO DAILY, (Reported) Fluoxetine Hcl 20 Mg Capsule, 1 EACH PO DAILY, (Reported) Furosemide 40 Mg Tablet, 40 MG PO DAILY Prescribed by: CEDRICK SALVADOR on 08/24/19 131 Gabapentin 600 Mg Tablet, 600 MG PO Q8H PRN for NERVE PAIN, (Reported) Hydrocodone Bit/Acetaminophen 1 Each Tablet, 1 TAB PO Q6H PRN for PAIN-SEVERE (8-10) Prescribed by: CEDRICK SALVADOR on 08/24/19 131 Lisinopril 10 Mg Tablet, 10 MG PO DAILY, (Reported) Lisinopril 20 Mg Tablet, 20 MG PO DAILY@0900 Prescribed by: CEDRICK SALVADOR on 08/24/19 131 Loperamide HCl 2 Mg Capsule, 4 MG PO NEEDED PRN for DIARRHEA Prescribed by: CEDRICK SALVADOR on 08/24/19 131 Meloxicam 15 Mg Tablet, 15 MG PO DAILY, (Reported) Metformin HCl 500 Mg Tab.er.24h, 500 MG PO DAILY, (Reported) Methocarbamol 750 Mg Tablet, 750 MG PO Q8H PRN for MUSCLE SPASMS, (Reported) Metoprolol Tartrate 50 Mg Tablet, 50 MG PO BID Prescribed by: CEDRICK SALVADOR on 08/24/191314 Miconazole Nitrate 90 Gm Powder, 0 GM TOP BID Prescribed by: CEDRICK SALVADOR on 08/24/191314 Omeprazole 20 Mg Capsule.dr, 20 MG PO DAILY, (Reported) Ondansetron 4 Mg Tab.rapdis, 4 MG PO Q4H PRN for NAUSEA/VOMITING-1ST LINE, (Reported) Oxybutynin Chloride 5 Mg Tablet, 5 MG PO BID, (Reported) Prednisone 20 Mg Tab, 40 MG PO DAILY Prescribed by: ANDRE LORD on 08/01/172053 Pregabalin 75 Mg Capsule, 75 MG PO BID, (Reported) Ranitidine HCl 150 Mg Tablet, 150 MG PO BID, (Reported) Simvastatin 40 Mg Tablet, 40 MG PO DAILY, (Reported) Simvastatin 40 Mg Tablet, 40 MG PO DAILY, (Reported) Patient Home Medication List Home Medication List Reviewed: Yes Review of Systems Review of Systems Constitutional: see HPI EENTM: No Symptoms Reported Respiratory: No Symptoms Reported Cardiovascular: No Symptoms Reported Gastrointestinal: See HPI, Abdominal Pain Genitourinary: No Symptoms Reported Musculoskeletal: no symptoms reported Skin: no symptoms reported Psychiatric/Neurological: No Symptoms Reported Endocrine: No Symptoms Reported Hematologic/Lymphatic: No Symptoms Reported Past Bfnfvrp-Xlygbt-Anycly Hx Patient Social History Drug of Choice: BENZODIAZEPINE AND OPIATE ABUSE/EXCESSIVE USE/OVERDOSES Type Used: Cigarettes Recent Foreign Travel: No Contact w/Someone Who Travel: No Recent Hopitalizations: Yes Immunizations Up To Date Tetanus Booster (TDap): Unknown PED Vaccines UTD: Yes Seasonal Allergies Seasonal Allergies: No Past Medical History Surgeries: Yes (BACK SURGERY 2017; FOOT SURGERY) Gallbladder, Hysterectomy, Orthopedic, Tonsillectomy, Tubal Ligation Respiratory: Yes (07/2019--PNEUMONIA WITH SEPTIC SHOCK AND INTUBATED. 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 Headaches /Migraines [employer] History: Menopausal Genitourinary: No Gastrointestinal: Yes (delayed emptying) Gastroesophageal Reflux, Gall Bladder Disease Musculoskeletal: Yes (foot surgery; BACK SURGERY) Chronic Back Pain Endocrine: Yes (MORBID OBESITY) Diabetes, Non-Insulin dep HEENT: No Cancer: No Psychosocial: Yes (RX DRUG ABUSE) Anxiety, Depression Integumentary: No Blood Disorders: No Family Medical History No Pertinent Family Hx Physical Exam Vital Signs Vital Signs - First Documented 11/02/19 18:08 Temp 36.8 Pulse 89 Resp 18 B/P (MAP) 144/78 (100) O2 Delivery Room Air Capillary Refill : Height/Weight/BMI Height: 5'8.00" Weight: 220lbs. oz. 99.141970qr; 42.81 BMI Method:Stated General Appearance: WD/WN, no apparent distress, other (chronically ill) HEENT: PERRL/EOMI, normal ENT inspection Respiratory: no respiratory distress, no accessory muscle use Cardiovascular: regular rate, rhythm, no murmur Gastrointestinal: normal bowel sounds, soft, tenderness (suprapubic) Extremities: normal range of motion, non-tender Neurologic/Psychiatric: alert, normal mood/affect, oriented x 3 Skin: normal color, warm/dry Procedures/Interventions Date of ETT Placement: Aug 16, 2019 Time of ETT Placement: 2300 Progress/Results/Core Measures Results/Orders Lab Results Laboratory Tests Test 11/02/19 18:20 11/02/19 18:32 Range/Units White Blood Count 6.3 4.3-11.0 10^3/uL Red Blood Count 3.39 L 4.35-5.85 10^6/uL Hemoglobin 11.3 L 11.5-16.0 G/DL Hematocrit 34 L 35-52 % Mean Corpuscular Volume 99 80-99 FL Mean Corpuscular Hemoglobin 33 25-34 PG Mean Corpuscular Hemoglobin Concent 34 32-36 G/DL Red Cell Distribution Width 14.8 H 10.0-14.5 % Platelet Count 265 130-400 10^3/uL Mean Platelet Volume 8.5 7.4-10.4 FL Neutrophils (%) (Auto) 59 42-75 % Lymphocytes (%) (Auto) 33 12-44 % Monocytes (%) (Auto) 7 0-12 % Eosinophils (%) (Auto) 1 0-10 % Basophils (%) (Auto) 0 0-10 % Neutrophils # (Auto) 3.7 1.8-7.8 X 10^3 Lymphocytes # (Auto) 2.1 1.0-4.0 X 10^3 Monocytes # (Auto) 0.4 0.0-1.0 X 10^3 Eosinophils # (Auto) 0.1 0.0-0.3 10^3/uL Basophils # (Auto) 0.0 0.0-0.1 10^3/uL Sodium Level 130 L 135-145 MMOL/L Potassium Level 4.4 3.6-5.0 MMOL/L Chloride Level 96 L 98-107 MMOL/L Carbon Dioxide Level 25 21-32 MMOL/L Anion Gap 9 5-14 MMOL/L Blood Urea Nitrogen 11 7-18 MG/DL Creatinine 0.75 0.60-1.30 MG/DL Estimat Glomerular Filtration Rate > 60 BUN/Creatinine Ratio 15 Glucose Level 88 70-105 MG/DL Calcium Level 9.2 8.5-10.1 MG/DL Corrected Calcium 9.0 8.5-10.1 MG/DL Total Bilirubin 0.2 0.1-1.0 MG/DL Aspartate Amino Transf (AST/SGOT) 28 5-34 U/L Alanine Aminotransferase (ALT/SGPT) 26 0-55 U/L Alkaline Phosphatase 78 40-136 U/L Total Protein 6.6 6.4-8.2 GM/DL Albumin 4.3 3.2-4.5 GM/DL Urine Color YELLOW Urine Clarity CLEAR Urine pH 6.0 5-9 Urine Specific Left Hand <=1.005 1.016-1.022 Urine Protein NEGATIVE NEGATIVE Urine Glucose (UA) NEGATIVE NEGATIVE Urine Ketones NEGATIVE NEGATIVE Urine Nitrite NEGATIVE NEGATIVE Urine Bilirubin NEGATIVE NEGATIVE Urine Urobilinogen 0.2 < = 1.0 MG/DL Urine Leukocyte Esterase NEGATIVE NEGATIVE Urine RBC (Auto) NEGATIVE NEGATIVE Urine RBC NONE /HPF Urine WBC RARE /HPF Urine Squamous Epithelial Cells 5-10 /HPF Urine Crystals NONE /LPF Urine Bacteria TRACE /HPF Urine Casts NONE /LPF Urine Mucus NEGATIVE /LPF Urine Culture Indicated NO Urine Opiates Screen POSITIVE H NEGATIVE Urine Oxycodone Screen NEGATIVE NEGATIVE Urine Methadone Screen NEGATIVE NEGATIVE Urine Propoxyphene Screen NEGATIVE NEGATIVE Urine Barbiturates Screen NEGATIVE NEGATIVE Ur Tricyclic Antidepressants Screen NEGATIVE NEGATIVE Urine Phencyclidine Screen NEGATIVE NEGATIVE Urine Amphetamines Screen NEGATIVE NEGATIVE Urine Methamphetamines Screen NEGATIVE NEGATIVE Urine Benzodiazepines Screen POSITIVE H NEGATIVE Urine Cocaine Screen NEGATIVE NEGATIVE Urine Cannabinoids Screen NEGATIVE NEGATIVE My Orders Orders - PHILIP GILMORE APRN C Difficile Ag + Toxin A/B. (11/02/19 18:04) Cbc With Automated Diff (11/02/19 18:04) Comprehensive Metabolic Panel (11/02/19 18:04) Ed Iv/Invasive Line Start (11/02/19 18:04) Lactated Ringers (Lr 1000 Ml Iv Solution (11/02/19 18:15) Loperamide Tablet (Imodium Tablet) (11/02/19 18:15) Ua Culture If Indicated (11/02/19 18:22) Ct Abdomen/Pelvis Wo (11/02/19 18:22) Ns Iv 1000 Ml (Sodium Chloride 0.9%) (11/02/19 18:45) Drug Screen Stat (Urine) (11/02/19 18:42) Medications Given in ED Current Medications Medications Dose Ordered Sig/Raquel Route Start Time Stop Time Status Last Admin Dose Admin Loperamide HCl 4 mg ONCE ONCE PO 11/02/19 18:15 11/02/19 18:16 DC 11/02/19 19:07 4 MG Vital Signs/I&O 11/02/19 18:08 Temp 36.8 Pulse 89 Resp 18 B/P (MAP) 144/78 (100) O2 Delivery Room Air Diagnostic Imaging Diagonstic Imaging: CT Comments NAME: ENRIQUE GARCIA [facility] REC#: [id number] PT STATUS: REG ER : 1960 PHYSICIAN: PHILIP IGLMORE APRN ADMIT DATE: 11/02/19/ER Draft Date of Exam:11/02/19 CT ABDOMEN/PELVIS WO PROCEDURE: CT abdomen and pelvis without contrast. TECHNIQUE: Multiple contiguous axial images were obtained through the abdomen and pelvis without the use of intravenous contrast. Auto Exposure Controls were utilized during the CT exam to meet ALARA standards for radiation dose reduction. INDICATION: Mid and lower abdominal pain. Diarrhea. COMPARISON: 08/20/2019. FINDINGS: The lung bases are clear. Cholecystectomy. The liver, pancreas, spleen, adrenals, collecting systems, bladder and appendix are negative on this noncontrast exam. Hysterectomy. Advanced sigmoid and descending colon diverticulosis. No evidence of active diverticulitis. The previously seen inflammatory changes about the descending colon have improved. No free intraperitoneal air or fluid. No lymphadenopathy. No evidence of bowel obstruction. Postoperative findings bilateral rods and pedicle screw fixation with interbody fusions at L4-S1. No acute osseous findings. IMPRESSION: 1. No acute CT findings in the abdomen or pelvis on this noncontrast exam. 2. Advanced colonic diverticulosis without evidence of active diverticulitis. The previously seen inflammatory changes about the descending colon have improved since the prior exam. Dictated on workstation # [id number] Dict: 11/02/19 1852 Trans: 11/02/19 1904 [facility] [id number] Interpreted by: WANDA PORTILLO MD Electronically signed by: Departure Communication (Admissions) She is unable to provide a stool sample for us here to check for C. difficile. There are no findings of colitis on CT. Labs are unremarkable. Discharging to home for outpatient follow-up Impression Primary Impression: Abdominal cramping, bilateral lower quadrant Disposition: 01 HOME, SELF-CARE Condition: Stable Departure-Patient Inst. Decision time for Depature: 18:56 Referrals: LIZZETTE CAMP MD (PCP) Primary Care Physician NEHAL MAX APRN (Family) Primary Care Physician Patient Instructions: NO INSTRUCTIONS GIVEN Add. Discharge Instructions: 1. Return to ER for any concerns 2. Follow-up with your doctor next week 3. PHILIP GILMORE APRN November 02, 2019 18:25
[2019-11-02 18:28] LABS: BASOPHILS % (AUTO) 0 % (0-10); EOSINOPHILS # (AUTO) 0.1 10^3/uL (0.0-0.3); EOSINOPHILS % (AUTO) 1 % (0-10); HEMATOCRIT 34 % (35-52); HEMOGLOBIN 11.3 G/DL (11.5-16.0); LYMPHOCYTES # (AUTO) 2.1 X 10^3 (1.0-4.0); LYMPHOCYTES % (AUTO) 33 % (12-44); MEAN CORPUSCULAR HEMOGLOBIN 33 PG (25-34); MEAN CORPUSCULAR HGB CONC 34 G/DL (32-36); MEAN CORPUSCULAR VOLUME 99 FL (80-99); MEAN PLATELET VOLUME 8.5 FL (7.4-10.4); MONOCYTES # (AUTO) 0.4 X 10^3 (0.0-1.0); MONOCYTES % (AUTO) 7 % (0-12); NEUTROPHILS # (AUTO) 3.7 X 10^3 (1.8-7.8); NEUTROPHILS % (AUTO) 59 % (42-75); PLATELET COUNT 265 10^3/uL (130-400); RED CELL DISTRIBUTION WIDTH 14.8 % (10.0-14.5); WHITE BLOOD COUNT 6.3 10^3/uL (4.3-11.0)
[2019-11-02 18:37] LABS: ALBUMIN 4.3 GM/DL (3.2-4.5); CHLORIDE 96 MMOL/L (98-107); POTASSIUM 4.4 MMOL/L (3.6-5.0); SODIUM 130 MMOL/L (135-145)
[2019-11-02 18:38] LABS: CALCIUM 9.2 MG/DL (8.5-10.1)
[2019-11-02 18:39] LABS: GLUCOSE 88 MG/DL (70-105); TOTAL PROTEIN 6.6 GM/DL (6.4-8.2)
[2019-11-02 18:40] LABS: BILIRUBIN,URINE NEGATIVE (NEGATIVE); CLARITY,URINE CLEAR; COLOR,URINE YELLOW; GLUCOSE, URINE (UA) NEGATIVE (NEGATIVE); KETONES,URINE NEGATIVE (NEGATIVE); LEUKOCYTE ESTERASE ,URINE NEGATIVE (NEGATIVE); NITRITE,URINE NEGATIVE (NEGATIVE); PROTEIN,URINE NEGATIVE (NEGATIVE)
[2019-11-02 18:40] LABS: CARBON DIOXIDE 25 MMOL/L (21-32)
[2019-11-02 18:41] LABS: BILIRUBIN,TOTAL 0.2 MG/DL (0.1-1.0)
[2019-11-02 18:43] LABS: ALKALINE PHOSPHATASE 78 U/L (40-136); CREATININE SERUM 0.75 MG/DL (0.60-1.30); GFR ESTIMATED > 60
[2019-11-02 18:44] LABS: BUN/CREATININE RATIO 15
[2019-11-02] MEDS ORDERED: NS IV 1000 ML 1,000 ML IV SCH (18:45)
[2019-11-02 18:46] LABS: ALANINE AMINOTRANSFERASE 26 U/L (0-55)
[2019-11-02 18:49] LABS: BACTERIA,URINE TRACE /HPF; WBC,URINE RARE /HPF
[2019-11-02 19:03] LABS: AMPHETAMINE SCREEN, URINE NEGATIVE (NEGATIVE); BARBITURATE SCREEN URINE NEGATIVE (NEGATIVE); BENZODIAZEPINES SCREEN URINE POSITIVE (NEGATIVE); CANNABINOID SCREEN, URINE NEGATIVE (NEGATIVE); COCAINE SCREEN URINE NEGATIVE (NEGATIVE); METHADONE STAT NEGATIVE (NEGATIVE); METHAMPHETAMINE SCREEN URINE S NEGATIVE (NEGATIVE); OPIATE SCREEN URINE POSITIVE (NEGATIVE); OXYCODONE STAT NEGATIVE (NEGATIVE); PROPOXYPHENE STAT NEGATIVE (NEGATIVE); TRICYCLIC ANTIDEPRESSANTS SCRE NEGATIVE (NEGATIVE)
--- NOTE | 2019-11-02 19:06 | Diagnostic Imaging Report ---
PROCEDURE: CT abdomen and pelvis without contrast. TECHNIQUE: Multiple contiguous axial images were obtained through the abdomen and pelvis without the use of intravenous contrast. Auto Exposure Controls were utilized during the CT exam to meet ALARA standards for radiation dose reduction. INDICATION: Mid and lower abdominal pain. Diarrhea. COMPARISON: 08/20/2019. FINDINGS: The lung bases are clear. Cholecystectomy. The liver, pancreas, spleen, adrenals, collecting systems, bladder and appendix are negative on this noncontrast exam. Hysterectomy. Advanced sigmoid and descending colon diverticulosis. No evidence of active diverticulitis. The previously seen inflammatory changes about the descending colon have improved. No free intraperitoneal air or fluid. No lymphadenopathy. No evidence of bowel obstruction. Postoperative findings bilateral rods and pedicle screw fixation with interbody fusions at L4-S1. No acute osseous findings. IMPRESSION: 1. No acute CT findings in the abdomen or pelvis on this noncontrast exam. 2. Advanced colonic diverticulosis without evidence of active diverticulitis. The previously seen inflammatory changes about the descending colon have improved since the prior exam. Dictated by: Dictated on workstation # [id number]
[2019-11-02 19:29] VITALS: BP 139/73
== END 2019-11-02 19:29 | disposition home or self-care (01) ==
LOC: EDUNIT# 17:55 → ER 17:56
DX: R10.31 Right lower quadrant pain (principal); R10.32 Left lower quadrant pain; J44.9 Chronic obstructive pulmonary disease, unspecified; I10 Essential (primary) hypertension; E11.9 Type 2 diabetes mellitus without complications; E78.00 Pure hypercholesterolemia, unspecified; F41.9 Anxiety disorder, unspecified; F32.9 Major depressive disorder, single episode, unspecified; G43.909 Migraine, unspecified, not intractable, without status migrainosus; E66.09 Other obesity due to excess calories; K21.9 Gastro-esophageal reflux disease without esophagitis; Z88.7 Allergy status to serum and vaccine; Z88.5 Allergy status to narcotic agent; Z68.39 Body mass index [BMI] 39.0-39.9, adult; Z79.82 Long term (current) use of aspirin; Z79.84 Long term (current) use of oral hypoglycemic drugs
CPT/HCPCS: 36415; 74176; 80053; 80306; 81000; 85025

== ENCOUNTER 2020-01-09 13:44 | Emergency (ER) | payer MEDICARE, MEDICAID ==
[~2020-01-09] VITALS: Ht 147 cm; Wt 101.0 kg
[~2020-01-09 13:44] MED LIST changes: +METF-865 PO; -METF500T19 PO
--- NOTE | 2020-01-09 13:54 | ED Back Pain ---
General Chief Complaint: Back Problems Stated Complaint: BACK PAIN Source of Information: Patient Exam Limitations: No Limitations History of Present Illness Date Seen by Provider: Jan 09, 2020 Time Seen by Provider: 13:52 Initial Comments To ER with reports of right-sided low back pain that began after an accident at [employer]. She states she went to the bathroom and there was no light, she fell between the toilet and the wall worsening her chronic back pain for which she takes hydrocodone 4-5 times a day. Location: Lumbar Spine, Paraspinous Muscles Timing/Duration: 4-6 Hours Severity: Moderate Pain/Injury Location: Back Method of Injury: Unknown Associated Symptoms: lower back pain Allergies and Home Medications Allergies Coded Allergies: Influenza Virus Vaccines (Verified Allergy, Unknown, 08/26/19) tramadol (Unverified Allergy, Unknown, 11/22/16) Uncoded Allergies: PNEUMONIA SHOT (Allergy, Unknown, 11/22/16) Home Medications Albuterol Sulfate 8.5 Gm Hfa.aer.ad, 8.5 GM IH Q4H Prescribed by: PHILIP GILMORE on 06/23/15 155 Albuterol Sulfate 6.7 Gm Hfa.aer.ad, 2 PUFF IH Q4H PRN for SHORTNESS OF BREATH Prescribed by: ANDRE LORD on 08/01/172053 Albuterol Sulfate 18 Gm Hfa.aer.ad, 2 PUFF PO Q4H PRN for SHORTNESS OF BREATH, (Reported) Alprazolam 0.5 Mg Tablet, 0.5 MG PO DAILY, (Reported) Aspirin 81 Mg Tablet.dr, 81 MG PO DAILY, (Reported) Benzonatate 200 Mg Capsule, 200 MG PO Q8H PRN for COUGH Prescribed by: ANDRE LORD on 08/01/172053 Budesonide/Formoterol Fumarate 10.2 Gm Hfa.aer.ad, 2 PUFF IH BID, (Reported) Bupropion HCl 150 Mg Tablet.er, 150 MG PO BID, (Reported) Diazepam 10 Mg Tablet, 5-10 MG PO HS, (Reported) Diclofenac Sodium 75 Mg Tablet.dr, 75 MG PO BID, (Reported) Docusate Sodium 100 Mg Capsule, 100 MG PO DAILY PRN PRN for CONSTIPATION-1ST LINE Prescribed by: CEDRICK SALVADOR on 08/24/19 1315 Escitalopram Oxalate 20 Mg Tablet, 20 MG PO DAILY, (Reported) Fluoxetine Hcl 20 Mg Capsule, 1 EACH PO DAILY, (Reported) Furosemide 40 Mg Tablet, 40 MG PO DAILY Prescribed by: CEDRICK SALVADOR on 08/24/191314 Gabapentin 600 Mg Tablet, 600 MG PO Q8H PRN for NERVE PAIN, (Reported) Hydrocodone Bit/Acetaminophen 1 Each Tablet, 1 TAB PO Q6H PRN for PAIN-SEVERE (8-10) Prescribed by: CEDRICK SALVADOR on 08/24/19 131 Lisinopril 10 Mg Tablet, 10 MG PO DAILY, (Reported) Lisinopril 20 Mg Tablet, 20 MG PO DAILY@0900 Prescribed by: CEDRICK SALVADOR on 08/24/191314 Loperamide HCl 2 Mg Capsule, 4 MG PO NEEDED PRN for DIARRHEA Prescribed by: CEDRICK SALVADOR on 08/24/191314 Meloxicam 15 Mg Tablet, 15 MG PO DAILY, (Reported) Metformin HCl 500 Mg Tab.er.24h, 500 MG PO DAILY, (Reported) Methocarbamol 750 Mg Tablet, 750 MG PO Q8H PRN for MUSCLE SPASMS, (Reported) Metoprolol Tartrate 50 Mg Tablet, 50 MG PO BID Prescribed by: CEDRICK SALVADOR on 08/24/191314 Miconazole Nitrate 90 Gm Powder, 0 GM TOP BID Prescribed by: CEDRICK SALVADOR on 08/24/191314 Omeprazole 20 Mg Capsule.dr, 20 MG PO DAILY, (Reported) Ondansetron 4 Mg Tab.rapdis, 4 MG PO Q4H PRN for NAUSEA/VOMITING-1ST LINE, (Reported) Oxybutynin Chloride 5 Mg Tablet, 5 MG PO BID, (Reported) Prednisone 20 Mg Tab, 40 MG PO DAILY Prescribed by: ANDRE LORD on 08/01/172053 Pregabalin 75 Mg Capsule, 75 MG PO BID, (Reported) Ranitidine HCl 150 Mg Tablet, 150 MG PO BID, (Reported) Simvastatin 40 Mg Tablet, 40 MG PO DAILY, (Reported) Simvastatin 40 Mg Tablet, 40 MG PO DAILY, (Reported) Patient Home Medication List Home Medication List Reviewed: Yes Review of Systems Constitutional: see HPI EENTM: see HPI Respiratory: no symptoms reported Cardiovascular: no symptoms reported Genitourinary: no symptoms reported Musculoskeletal: see HPI, back pain Skin: no symptoms reported Psychiatric/Neurological: No Symptoms Reported Past Klsoluo-Oagxqb-Fqzmeo Hx Patient Social History Drug of Choice: BENZODIAZEPINE AND OPIATE ABUSE/EXCESSIVE USE/OVERDOSES Type Used: Cigarettes Recent Foreign Travel: No Contact w/Someone Who Travel: No Recent Hopitalizations: Yes Immunizations Up To Date Tetanus Booster (TDap): Unknown PED Vaccines UTD: Yes Seasonal Allergies Seasonal Allergies: No Past Medical History Surgeries: Yes (BACK SURGERY 2017; FOOT SURGERY) Gallbladder, Hysterectomy, Orthopedic, Tonsillectomy, Tubal Ligation Respiratory: Yes (07/2019--PNEUMONIA WITH SEPTIC SHOCK AND INTUBATED. 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 oz. 99.542720yy; 38.00 BMI Method:Stated General Appearance: No Apparent Distress, WD/WN HEENT: PERRL/EOMI Neck: Full Range of Motion, Normal Inspection Respiratory: No Accessory Muscle Use, No Respiratory Distress Gastrointestinal: Normal Bowel Sounds, Non Tender, Soft Neurologic/Psychiatric: Alert, Oriented x3 Skin: Normal Color, Warm/Dry Procedures/Interventions Date of ETT Placement: Aug 16, 2019 Time of ETT Placement: 2300 Progress/Results/Core Measures Results/Orders Lab Results Laboratory Tests Test 01/09/20 14:05 Range/Units Urine Color YELLOW Urine Clarity CLEAR Urine pH 6.0 5-9 Urine Specific [place] <=1.005 1.016-1.022 Urine Protein NEGATIVE NEGATIVE Urine Glucose (UA) NEGATIVE NEGATIVE Urine Ketones NEGATIVE NEGATIVE Urine Nitrite NEGATIVE NEGATIVE Urine Bilirubin NEGATIVE NEGATIVE Urine Urobilinogen 0.2 < = 1.0 MG/DL Urine Leukocyte Esterase NEGATIVE NEGATIVE Urine RBC (Auto) NEGATIVE NEGATIVE Urine RBC NONE /HPF Urine WBC NONE /HPF Urine Squamous Epithelial Cells RARE /HPF Urine Crystals NONE /LPF Urine Bacteria NEGATIVE /HPF Urine Casts NONE /LPF Urine Mucus NEGATIVE /LPF Urine Culture Indicated NO Urine Opiates Screen NEGATIVE NEGATIVE Urine Oxycodone Screen NEGATIVE NEGATIVE Urine Methadone Screen NEGATIVE NEGATIVE Urine Propoxyphene Screen NEGATIVE NEGATIVE Urine Barbiturates Screen NEGATIVE NEGATIVE Ur Tricyclic Antidepressants Screen NEGATIVE NEGATIVE Urine Phencyclidine Screen NEGATIVE NEGATIVE Urine Amphetamines Screen NEGATIVE NEGATIVE Urine Methamphetamines Screen NEGATIVE NEGATIVE Urine Benzodiazepines Screen POSITIVE H NEGATIVE Urine Cocaine Screen NEGATIVE NEGATIVE Urine Cannabinoids Screen NEGATIVE NEGATIVE My Orders Orders - PHILIP GILMORE APRN Lumbar Spine - 2-3 Views (01/09/20 13:50) Ketorolac Injection (Toradol Injection) (01/09/20 14:00) Orphenadrine Inj (Ed Only) (Norflex Inje (01/09/20 14:00) Ua Culture If Indicated (01/09/20 13:54) Drug Screen Stat (Urine) (01/09/20 13:54) Medications Given in ED Current Medications Medications Dose Ordered Sig/Raquel Route Start Time Stop Time Status Last Admin Dose Admin Ketorolac Tromethamine 60 mg ONCE ONCE IM 01/09/20 14:00 01/09/20 14:16 DC 01/09/20 14:11 60 MG Orphenadrine Citrate 60 mg ONCE ONCE IM 01/09/20 14:00 01/09/20 14:16 DC 01/09/20 14:11 60 MG Vital Signs/I&O 01/09/20 13:53 Temp 36.5 Pulse 85 Resp 20 B/P (MAP) 180/96 (124) Pulse Ox 98 Departure Impression Primary Impression: Fall Additional Impression: Acute exacerbation of chronic low back pain Disposition: HOME, SELF-CARE Condition: Stable Departure-Patient Inst. Decision time for Depature: 14:28 Referrals: LIZZETTE CAMP MD (PCP) Primary Care Physician NEHAL MAX APRN (Family) Primary Care Physician Patient Instructions: Chronic Pain (DC) Add. Discharge Instructions: 1. Medication as directed 2. Follow-up with your doctor next week 3. All discharge instructions reviewed with patient and/or family. Voiced understanding. Scripts Naproxen (Naprosyn) 500 Mg Tablet 500 MG PO BID, #30 TAB 0 Refills Prov: PHILIP GILMORE APRN 01/09/20 Methocarbamol (Robaxin-750) 750 Mg Tablet 750 MG PO Q4H PRN for PAIN-MODERATE (5-7), #20 TAB Prov: PHILIP GILMORE APRN 01/09/20 PHILIP GILMORE APRN Jan 09, 2020 13:54
[2020-01-09] MEDS ORDERED: KETOROLAC 60 MG/2 ML VIAL IM ONE (14:00)
[2020-01-09] MEDS ORDERED: ORPHENADRINE 60 MG/2 ML (NORFLEX) AMP (ED ONLY) IM ONE (14:00)
[2020-01-09 14:15] LABS: BILIRUBIN,URINE NEGATIVE (NEGATIVE); CLARITY,URINE CLEAR; COLOR,URINE YELLOW; GLUCOSE, URINE (UA) NEGATIVE (NEGATIVE); KETONES,URINE NEGATIVE (NEGATIVE); LEUKOCYTE ESTERASE ,URINE NEGATIVE (NEGATIVE); NITRITE,URINE NEGATIVE (NEGATIVE); PROTEIN,URINE NEGATIVE (NEGATIVE)
[2020-01-09 14:23] LABS: BACTERIA,URINE NEGATIVE /HPF; SQUAMOUS EPITHELIAL CELL,UR RARE /HPF
[2020-01-09 14:24] LABS: AMPHETAMINE SCREEN, URINE NEGATIVE (NEGATIVE); BARBITURATE SCREEN URINE NEGATIVE (NEGATIVE); BENZODIAZEPINES SCREEN URINE POSITIVE (NEGATIVE); CANNABINOID SCREEN, URINE NEGATIVE (NEGATIVE); COCAINE SCREEN URINE NEGATIVE (NEGATIVE); METHADONE STAT NEGATIVE (NEGATIVE); METHAMPHETAMINE SCREEN URINE S NEGATIVE (NEGATIVE); OPIATE SCREEN URINE NEGATIVE (NEGATIVE); OXYCODONE STAT NEGATIVE (NEGATIVE); PROPOXYPHENE STAT NEGATIVE (NEGATIVE); TRICYCLIC ANTIDEPRESSANTS SCRE NEGATIVE (NEGATIVE)
[2020-01-09] MEDS ORDERED: METH-313 PO (14:29)
[2020-01-09] MEDS ORDERED: NAPR-1071 PO (14:29)
--- NOTE | 2020-01-09 14:47 | Diagnostic Imaging Report ---
INDICATION: Lumbar pain after fall yesterday. COMPARISON: CT abdomen and pelvis from 11/02/2019. TECHNIQUE: Three views of the lumbar spine were obtained. FINDINGS: No acute compression deformity within the lumbar vertebral bodies. Discectomies of L4-L5 and L5-S1 have been performed, but there does not appear to be solid osseous incorporation across these levels. Posterior instrumented fusion of L4-S1 is present and the fixation screws appear intact by radiography. Degenerative retrolisthesis of L3 on L4 is unchanged. Adjacent segment degenerative disc disease at L3-L4 is unchanged. SI joints are normal. IMPRESSION: No acute fracture or traumatic malalignment in the lumbar spine. Dictated by: Dictated on workstation # [id number]
[2020-01-09 15:11] VITALS: BP 149/89
== END 2020-01-09 15:13 | disposition home or self-care (01) ==
LOC: EDUNIT# 13:44 → ER 13:45
DX: M54.5 Low back pain (principal); G89.29 Other chronic pain; J44.9 Chronic obstructive pulmonary disease, unspecified; E78.00 Pure hypercholesterolemia, unspecified; I10 Essential (primary) hypertension; G43.909 Migraine, unspecified, not intractable, without status migrainosus; E11.9 Type 2 diabetes mellitus without complications; E66.01 Morbid (severe) obesity due to excess calories; F41.9 Anxiety disorder, unspecified; F32.9 Major depressive disorder, single episode, unspecified; K21.9 Gastro-esophageal reflux disease without esophagitis; Z88.7 Allergy status to serum and vaccine; Z88.5 Allergy status to narcotic agent; Z79.82 Long term (current) use of aspirin; Z68.38 Body mass index [BMI] 38.0-38.9, adult; Z79.52 Long term (current) use of systemic steroids; Z79.891 Long term (current) use of opiate analgesic; Z79.84 Long term (current) use of oral hypoglycemic drugs; W19.XXXA Unspecified fall, initial encounter; Y92.002 Bathroom of unspecified non-institutional (private) residence as the place of occurrence of the external cause
CPT/HCPCS: 72100; 80306; 81000

== ENCOUNTER 2020-04-15 15:13 | Emergency (ER) | payer MEDICARE, MEDICAID ==
[~2020-04-15] VITALS: Ht 167 cm; Wt 85.0 kg
[~2020-04-15 15:13] MED LIST changes: +ASPI-1238 PO; -ASPI-983 PO; +METH-313 PO; +NAPR-1071 PO
--- NOTE | 2020-04-15 15:50 | ED General ---
General Stated Complaint: COUGH/SOB Source of Information: Patient Exam Limitations: No Limitations History of Present Illness Date Seen by Provider: Apr 15, 2020 Time Seen by Provider: 15:49 Initial Comments To ER with a 24 history of nonproductive cough, shortness of breath, diarrhea, rhinorrhea. She was exposed to her sister 3 days ago he was coronavirus positive. She also reports an exacerbation of her chronic back pain Timing/Duration: 1-2 Days Severity: Moderate Associated Systoms: Cough Allergies and Home Medications Allergies Coded Allergies: Influenza Virus Vaccines (Verified Allergy, Unknown, 08/26/19) tramadol (Unverified Allergy, Unknown, 11/22/16) Uncoded Allergies: PNEUMONIA SHOT (Allergy, Unknown, 11/22/16) Home Medications Albuterol Sulfate 8.5 Gm Hfa.aer.ad, 8.5 GM IH Q4H Prescribed by: PHILIP GILMORE on 06/23/151551 Albuterol Sulfate 6.7 Gm Hfa.aer.ad, 2 PUFF IH Q4H PRN for SHORTNESS OF BREATH Prescribed by: ANDRE LORD on 08/01/172053 Albuterol Sulfate 18 Gm Hfa.aer.ad, 2 PUFF PO Q4H PRN for SHORTNESS OF BREATH, (Reported) Alprazolam 0.5 Mg Tablet, 0.5 MG PO DAILY, (Reported) Aspirin 81 Mg Tablet.dr, 81 MG PO DAILY, (Reported) Benzonatate 200 Mg Capsule, 200 MG PO Q8H PRN for COUGH Prescribed by: ANDRE LORD on 08/01/172053 Budesonide/Formoterol Fumarate 10.2 Gm Hfa.aer.ad, 2 PUFF IH BID, (Reported) Bupropion HCl 150 Mg Tablet.er, 150 MG PO BID, (Reported) Diazepam 10 Mg Tablet, 5-10 MG PO HS, (Reported) Diclofenac Sodium 75 Mg Tablet.dr, 75 MG PO BID, (Reported) Docusate Sodium 100 Mg Capsule, 100 MG PO DAILY PRN PRN for CONSTIPATION-1ST LINE Prescribed by: CEDRICK SALVADOR on 08/24/191314 Escitalopram Oxalate 20 Mg Tablet, 20 MG PO DAILY, (Reported) Fluoxetine Hcl 20 Mg Capsule, 1 EACH PO DAILY, (Reported) Furosemide 40 Mg Tablet, 40 MG PO DAILY Prescribed by: CEDRICK SALVADOR on 08/24/191314 Gabapentin 600 Mg Tablet, 600 MG PO Q8H PRN for NERVE PAIN, (Reported) Hydrocodone Bit/Acetaminophen 1 Each Tablet, 1 TAB PO Q6H PRN for PAIN-SEVERE (8-10) Prescribed by: CEDRICK SALVADOR on 08/24/19 131 Lisinopril 10 Mg Tablet, 10 MG PO DAILY, (Reported) Lisinopril 20 Mg Tablet, 20 MG PO DAILY@0900 Prescribed by: CEDRICK SALVADOR on 08/24/19 131 Loperamide HCl 2 Mg Capsule, 4 MG PO NEEDED PRN for DIARRHEA Prescribed by: CEDRICK SALVADOR on 08/24/19 131 Meloxicam 15 Mg Tablet, 15 MG PO DAILY, (Reported) Metformin HCl 500 Mg Tab.er.24h, 500 MG PO DAILY, (Reported) Methocarbamol 750 Mg Tablet, 750 MG PO Q8H PRN for MUSCLE SPASMS, (Reported) Methocarbamol 750 Mg Tablet, 750 MG PO Q4H PRN for PAIN-MODERATE (5-7) Prescribed by: PHILIP GILMORE on 01/09/20 142 Metoprolol Tartrate 50 Mg Tablet, 50 MG PO BID Prescribed by: CEDRICK SALVADOR on 08/24/191314 Miconazole Nitrate 90 Gm Powder, 0 GM TOP BID Prescribed by: CEDRICK SALVADOR on 08/24/191314 Naproxen 500 Mg Tablet, 500 MG PO BID Prescribed by: PHILIP GILMORE on 01/09/20 142 Omeprazole 20 Mg Capsule.dr, 20 MG PO DAILY, (Reported) Ondansetron 4 Mg Tab.rapdis, 4 MG PO Q4H PRN for NAUSEA/VOMITING-1ST LINE, (Reported) Oxybutynin Chloride 5 Mg Tablet, 5 MG PO BID, (Reported) Prednisone 20 Mg Tab, 40 MG PO DAILY Prescribed by: ANDRE LORD on 08/01/172053 Pregabalin 75 Mg Capsule, 75 MG PO BID, (Reported) Ranitidine HCl 150 Mg Tablet, 150 MG PO BID, (Reported) Simvastatin 40 Mg Tablet, 40 MG PO DAILY, (Reported) Simvastatin 40 Mg Tablet, 40 MG PO DAILY, (Reported) Patient Home Medication List Home Medication List Reviewed: Yes Review of Systems Review of Systems Constitutional: see HPI EENTM: see HPI, nose congestion Respiratory: see HPI, cough Cardiovascular: no symptoms reported Genitourinary: no symptoms reported Musculoskeletal: see HPI, back pain Skin: no symptoms reported Psychiatric/Neurological: No Symptoms Reported Hematologic/Lymphatic: No Symptoms Reported Past Jwqfavz-Taoxvz-Phdqjz Hx Patient Social History Drug of Choice: BENZODIAZEPINE AND OPIATE ABUSE/EXCESSIVE USE/OVERDOSES Type Used: Cigarettes 2nd Hand Smoke Exposure: Yes Recent Hopitalizations: Yes Immunizations Up To Date Tetanus Booster (TDap): Unknown PED Vaccines UTD: Yes Seasonal Allergies Seasonal Allergies: No Past Medical History Surgeries: Yes (BACK SURGERY 2017; FOOT SURGERY) Gallbladder, Hysterectomy, Orthopedic, Tonsillectomy, Tubal Ligation Respiratory: Yes (07/2019--PNEUMONIA WITH SEPTIC SHOCK AND INTUBATED. 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 Genitourinary: No Gastrointestinal: Yes (delayed emptying) Gastroesophageal Reflux, Gall Bladder Disease Musculoskeletal: Yes (foot surgery; BACK SURGERY) Chronic Back Pain Endocrine: Yes (MORBID OBESITY) Diabetes, Non-Insulin dep HEENT: No Cancer: No Psychosocial: Yes (RX DRUG ABUSE) Anxiety, Depression Integumentary: No Blood Disorders: No Family Medical History No Pertinent Family Hx Physical Exam Vital Signs Vital Signs - First Documented 04/15/20 04/15/20 16:31 18:34 Temp 35.7 Pulse 88 Resp 18 B/P (MAP) 154/100 (118) Pulse Ox 100 Capillary Refill : Height, Weight, BMI Height: 5'8.00" Weight: 220lbs. oz. 99.204665zl; 46.00 BMI Method:Stated General Appearance: No Apparent Distress, WD/WN, Other (100 percent on room air without respiratory distress or accessory muscle use) Eyes: Bilateral Eye Normal Inspection Respiratory: Normal Breath Sounds, No Accessory Muscle Use, No Respiratory Distress Extremity: Normal Capillary Refill, Normal Inspection Neurologic/Psychiatric: Alert, Oriented x3 Procedures/Interventions Date of ETT Placement: Aug 16, 2019 Time of ETT Placement: 2300 Progress/Results/Core Measures Suspected Sepsis SIRS Temperature: Pulse: Respiratory Rate: Laboratory Tests 04/15/20 16:15: White Blood Count 7.1 Blood Pressure / Mean: Laboratory Tests 04/15/20 16:15: Creatinine 0.67, Platelet Count 251, Total Bilirubin 0.7 Results/Orders Lab Results Micro Results My Orders Medications Given in ED Vital Signs/I&O Capillary Refill : Departure Communication (Admissions) 1705-Spoke with Dr. Molina, the patient is alert and oriented, mentating well. Given this information FOR a liter of normal saline here then discharged to home on fluid restriction limiting free water intake to 1 L per day for the next 3 days to follow up with primary care on Saturday. This plan with the patient and she agrees. She states "if I don't constantly drink something my mouth gets dry" . I advised her to get some lozenges and reduce water intake. Impression Primary Impression: Hyponatremia Additional Impressions: Acute exacerbation of chronic low back pain Viral syndrome Disposition: HOME, SELF-CARE Condition: Stable Departure-Patient Inst. Decision time for Depature: 17:03 Referrals: LIZZETTE CAMP MD (PCP) Primary Care Physician NEHAL MAX APRN (Family) Primary Care Physician Patient Instructions: Hyponatremia, VIRAL SYNDROME Add. Discharge Instructions: 1. You can use [id number]-[id number] Imodium for control of diarrhea. limit fluids that you drink to 1 liter per day for the next three days. this will help to increase your sodium and make you feel al bit better. Continue with your hydroco done for control of back pain. Quarantine until your covid results are back. PHILIP GILMORE APRN Apr 15, 2020 15:50
[2020-04-15] MEDS ORDERED: METHOCARBAMOL 750 MG (ROBAXIN) TAB PO ONE (16:00)
[2020-04-15] MEDS ORDERED: IBUPROFEN 800 MG (MOTRIN) TAB PO ONE (16:00)
[2020-04-15] MEDS ORDERED: LOPERAMIDE 2 MG (IMODIUM) TABLET PO PRN (16:00)
[2020-04-15 16:23] LABS: BASOPHILS % (AUTO) 0 % (0-10); EOSINOPHILS % (AUTO) 0 % (0-10); HEMATOCRIT 37 % (35-52); LYMPHOCYTES # (AUTO) 1.6 10^3/uL (1.0-4.0); LYMPHOCYTES % (AUTO) 22 % (12-44); MEAN CORPUSCULAR HEMOGLOBIN 33 pg (25-34); MEAN CORPUSCULAR HGB CONC 36 g/dL (32-36); MEAN CORPUSCULAR VOLUME 94 fL (80-99); MEAN PLATELET VOLUME 8.9 fL (9.0-12.2); MONOCYTES # (AUTO) 0.4 10^3/uL (0.0-1.0); MONOCYTES % (AUTO) 6 % (0-12); NEUTROPHILS # (AUTO) 5.1 10^3/uL (1.8-7.8); NEUTROPHILS % (AUTO) 71 % (42-75); PLATELET COUNT 251 10^3/uL (130-400); WHITE BLOOD COUNT 7.1 10^3/uL (4.3-11.0)
[2020-04-15 16:42] LABS: ALBUMIN 4.7 GM/DL (3.2-4.5); CHLORIDE 89 MMOL/L (98-107); POTASSIUM 4.5 MMOL/L (3.6-5.0)
[2020-04-15 16:43] LABS: CALCIUM 9.7 MG/DL (8.5-10.1)
[2020-04-15 16:44] LABS: GLUCOSE 97 MG/DL (70-105)
[2020-04-15 16:45] LABS: TOTAL PROTEIN 7.6 GM/DL (6.4-8.2)
[2020-04-15 16:46] LABS: BILIRUBIN,TOTAL 0.7 MG/DL (0.1-1.0); CARBON DIOXIDE 22 MMOL/L (21-32)
--- NOTE | 2020-04-15 16:46 | Diagnostic Imaging Report ---
EXAMINATION: Chest 1 view HISTORY: cough COMPARISON: 10/28/2019 FINDINGS: The lungs are clear without edema or pneumonia. No pleural effusion or pneumothorax. Heart size is normal, but accentuated by portable technique. IMPRESSION: 1. Clear lungs. Dictated by: Dictated on workstation # [id number]
[2020-04-15 16:48] LABS: ALKALINE PHOSPHATASE 92 U/L (40-136); CREATININE SERUM 0.67 MG/DL (0.60-1.30); GFR ESTIMATED > 60
[2020-04-15 16:49] LABS: BUN/CREATININE RATIO 12
[2020-04-15 16:51] LABS: ALANINE AMINOTRANSFERASE 17 U/L (0-55)
[2020-04-15 16:56] LABS: SODIUM 122 MMOL/L (135-145)
[2020-04-15] MEDS ORDERED: NS IV 1000 ML 1,000 ML IV SCH (17:00)
[2020-04-15] MEDS ORDERED: KETOROLAC 30 MG/ML VIAL IVP ONE (17:15)
[2020-04-15 18:41] VITALS: BP 150/90
== END 2020-04-15 18:41 | disposition home or self-care (01) ==
LOC: EDUNIT# 15:13 → ER 15:14
DX: E87.1 Hypo-osmolality and hyponatremia (principal); G89.29 Other chronic pain; M54.5 Low back pain; B34.9 Viral infection, unspecified; F41.9 Anxiety disorder, unspecified; F32.9 Major depressive disorder, single episode, unspecified; J44.9 Chronic obstructive pulmonary disease, unspecified; K21.9 Gastro-esophageal reflux disease without esophagitis; E78.00 Pure hypercholesterolemia, unspecified; I10 Essential (primary) hypertension; E11.9 Type 2 diabetes mellitus without complications; E66.01 Morbid (severe) obesity due to excess calories; Z20.828 Contact with and (suspected) exposure to other viral communicable diseases; Z77.22 Contact with and (suspected) exposure to environmental tobacco smoke (acute) (chronic); Z79.84 Long term (current) use of oral hypoglycemic drugs; Z68.42 Body mass index [BMI] 45.0-49.9, adult; Z88.5 Allergy status to narcotic agent; Z88.7 Allergy status to serum and vaccine; Z79.52 Long term (current) use of systemic steroids; Z79.82 Long term (current) use of aspirin
CPT/HCPCS: 71045; 80053; 85025; 87804; 99284; U0002; 36415; 87635

== ENCOUNTER → 2020-05-02 | Outpatient (CLI) | payer MEDICARE, MEDICAID | LOC: LABNPT 08:23 | PROVIDERS: ATTEND Nurse Practitioner Family | DX: Z20.828 Contact with and (suspected) exposure to other viral communicable diseases (principal) | CPT/HCPCS: 87635 ==

== ENCOUNTER → 2020-05-06 | Outpatient (CLI) | payer MEDICARE, MEDICAID ==
--- NOTE | 2020-05-06 15:31 | Diagnostic Imaging Report ---
INDICATION: Cough. COMPARISON: April 15, 2020. TECHNIQUE: Two radiographs of the chest dated May 06, 2020. FINDINGS: The cardiac silhouette is within normal limits in size. No significant pulmonary vascular congestion. The lungs remain clear. No pleural effusion. No pneumothorax. No acute osseous abnormality. IMPRESSION: Stable exam without acute cardiopulmonary abnormality. Dictated by: Dictated on workstation # [id number]
== END ==
LOC: RAD 14:58
PROVIDERS: ATTEND Nurse Practitioner Family
DX: R05 Cough (principal)
CPT/HCPCS: 71046

== ENCOUNTER 2020-06-04 15:10 | Emergency (ER) | payer MEDICARE, MEDICAID ==
[~2020-06-04] VITALS: Ht 167 cm; Wt 99.0 kg
--- NOTE | 2020-06-04 15:19 | ED General ---
General Stated Complaint: R HIP PAIN Source of Information: Patient Exam Limitations: No Limitations History of Present Illness Date Seen by Provider: Jun 04, 2020 Time Seen by Provider: 15:17 Initial Comments To ER by EMS from home with reports of severe right hip pain that starts in the low back and radiates down the right leg. This pain has been worse than usual for about 3 to 4 days. Her hydrocodone at home was not helping. Nor is her diazepam nor is her robaxin. Fell 3 weeks ago but had no increase in pain until 3-4 days ago. No loss of bowel or bladder control, no fever or chills or history of IV drug use. Timing/Duration: 1-2 Days Severity: Moderate Associated Systoms: Denies Symptoms Allergies and Home Medications Allergies Coded Allergies: Influenza Virus Vaccines (Verified Allergy, Unknown, 08/26/19) tramadol (Unverified Allergy, Unknown, 11/22/16) Uncoded Allergies: PNEUMONIA SHOT (Allergy, Unknown, 11/22/16) Home Medications Albuterol Sulfate 8.5 Gm Hfa.aer.ad, 8.5 GM IH Q4H Prescribed by: PHILIP GILMORE on 06/23/15 155 Albuterol Sulfate 6.7 Gm Hfa.aer.ad, 2 PUFF IH Q4H PRN for SHORTNESS OF BREATH Prescribed by: ANDRE LORD on 08/01/172053 Albuterol Sulfate 18 Gm Hfa.aer.ad, 2 PUFF PO Q4H PRN for SHORTNESS OF BREATH, (Reported) Alprazolam 0.5 Mg Tablet, 0.5 MG PO DAILY, (Reported) Aspirin 81 Mg Tablet.dr, 81 MG PO DAILY, (Reported) Benzonatate 200 Mg Capsule, 200 MG PO Q8H PRN for COUGH Prescribed by: ANDRE LORD on 08/01/172053 Budesonide/Formoterol Fumarate 10.2 Gm Hfa.aer.ad, 2 PUFF IH BID, (Reported) Bupropion HCl 150 Mg Tablet.er, 150 MG PO BID, (Reported) Diazepam 10 Mg Tablet, 5-10 MG PO HS, (Reported) Diclofenac Sodium 75 Mg Tablet.dr, 75 MG PO BID, (Reported) Docusate Sodium 100 Mg Capsule, 100 MG PO DAILY PRN PRN for CONSTIPATION-1ST LINE Prescribed by: CEDRICK SALVADOR on 3/2/20 1315 Escitalopram Oxalate 20 Mg Tablet, 20 MG PO DAILY, (Reported) Fluoxetine Hcl 20 Mg Capsule, 1 EACH PO DAILY, (Reported) Furosemide 40 Mg Tablet, 40 MG PO DAILY Prescribed by: CEDRICK SALVADOR on 08/24/191314 Gabapentin 600 Mg Tablet, 600 MG PO Q8H PRN for NERVE PAIN, (Reported) Hydrocodone Bit/Acetaminophen 1 Each Tablet, 1 TAB PO Q6H PRN for PAIN-SEVERE (8-10) Prescribed by: CEDRICK SALVADOR on 08/24/19 131 Lisinopril 10 Mg Tablet, 10 MG PO DAILY, (Reported) Lisinopril 20 Mg Tablet, 20 MG PO DAILY@0900 Prescribed by: CEDRICK SALVADOR on 08/24/191314 Loperamide HCl 2 Mg Capsule, 4 MG PO NEEDED PRN for DIARRHEA Prescribed by: CEDRICK SALVADOR on 08/24/191314 Meloxicam 15 Mg Tablet, 15 MG PO DAILY, (Reported) Metformin HCl 500 Mg Tab.er.24h, 500 MG PO DAILY, (Reported) Methocarbamol 750 Mg Tablet, 750 MG PO Q8H PRN for MUSCLE SPASMS, (Reported) Methocarbamol 750 Mg Tablet, 750 MG PO Q4H PRN for PAIN-MODERATE (5-7) Prescribed by: PHILIP GILMORE on 01/09/20 142 Metoprolol Tartrate 50 Mg Tablet, 50 MG PO BID Prescribed by: CEDRICK SALVADOR on 08/24/191314 Miconazole Nitrate 90 Gm Powder, 0 GM TOP BID Prescribed by: CEDRICK SALVADOR on 08/24/191314 Naproxen 500 Mg Tablet, 500 MG PO BID Prescribed by: PHILIP GILMORE on 01/09/20 142 Naproxen 500 Mg Tablet, 500 MG PO BID Prescribed by: PHILIP GILMORE on 06/04/20 152 Omeprazole 20 Mg Capsule.dr, 20 MG PO DAILY, (Reported) Ondansetron 4 Mg Tab.rapdis, 4 MG PO Q4H PRN for NAUSEA/VOMITING-1ST LINE, (Reported) Oxybutynin Chloride 5 Mg Tablet, 5 MG PO BID, (Reported) Prednisone 20 Mg Tab, 40 MG PO DAILY Prescribed by: ANDRE LORD on 08/01/172053 Pregabalin 75 Mg Capsule, 75 MG PO BID, (Reported) Ranitidine HCl 150 Mg Tablet, 150 MG PO BID, (Reported) Simvastatin 40 Mg Tablet, 40 MG PO DAILY, (Reported) Simvastatin 40 Mg Tablet, 40 MG PO DAILY, (Reported) Patient Home Medication List Home Medication List Reviewed: Yes Review of Systems Review of Systems Constitutional: see HPI EENTM: see HPI Respiratory: no symptoms reported Cardiovascular: no symptoms reported Genitourinary: no symptoms reported Musculoskeletal: see HPI, back pain Skin: no symptoms reported Psychiatric/Neurological: No Symptoms Reported Past Tdaneyp-Hojevy-Nawngw Hx Patient Social History Drug of Choice: BENZODIAZEPINE AND OPIATE ABUSE/EXCESSIVE USE/OVERDOSES Type Used: Cigarettes 2nd Hand Smoke Exposure: Yes Recent Hopitalizations: No Immunizations Up To Date Tetanus Booster (TDap): Unknown PED Vaccines UTD: Yes Seasonal Allergies Seasonal Allergies: No Past Medical History Surgeries: Yes (BACK SURGERY 2017; FOOT SURGERY) Gallbladder, Hysterectomy, Orthopedic, Tonsillectomy, Tubal Ligation Respiratory: Yes (07/2019--PNEUMONIA WITH SEPTIC SHOCK AND INTUBATED. 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 oz. 99.796570bq; 30.00 BMI Method:Stated General Appearance: No Apparent Distress, WD/WN, Chronically ill Eyes: Bilateral Eye Normal Inspection, Bilateral Eye PERRL Respiratory: No Accessory Muscle Use, No Respiratory Distress Cardiovascular: Regular Rate, Rhythm, Normal Peripheral Pulses Gastrointestinal: Normal Bowel Sounds, Non Tender, Soft Extremity: Normal Capillary Refill, Normal Inspection, Other (strong dorsalis pedis pulse bilat) Neurologic/Psychiatric: Alert, Oriented x3 Skin: Normal Color, Warm/Dry Procedures/Interventions Date of ETT Placement: Aug 16, 2019 Time of ETT Placement: 2300 Progress/Results/Core Measures Suspected Sepsis SIRS Temperature: Pulse: Respiratory Rate: Blood Pressure / Mean: Results/Orders My Orders Orders - PHILIP GILMORE APRN Ketamine Syringe (Ed Only) (Ketamine Syr (06/04/20 15:30) Ns (Ivpb) (Sodium Chloride 0.9%) (06/04/20 15:30) Ed Iv/Invasive Line Start (06/04/20 15:16) Medications Given in ED Current Medications Medications Dose Ordered Sig/Raquel Route Start Time Stop Time Status Last Admin Dose Admin Ketamine HCl 25 mg ONCE ONCE IV 06/04/20 15:30 06/04/20 15:31 DC 06/04/20 15:26 25 MG Vital Signs/I&O Capillary Refill : Departure Impression Primary Impression: Lumbar radicular pain Disposition: HOME, SELF-CARE Condition: Stable Departure-Patient Inst. Decision time for Depature: 15:18 Referrals: LIZZETTE CAMP MD (PCP) Primary Care Physician NEHAL MAX APRN (Family) Primary Care Physician Patient Instructions: Radiculopathy (DC) Add. Discharge Instructions: 1. Medication as directed. Follow-up with her doctor this week for recheck. Return to ER for any concerns. Scripts Naproxen (Naprosyn) 500 Mg Tablet 500 MG PO BID, #30 TAB 0 Refills Prov: PHILIP GILMORE APRN 06/04/20 PHILIP GILMORE APRN Jun 04, 2020 15:19
[2020-06-04] MEDS ORDERED: NAPR-1071 PO (15:20)
[2020-06-04] MEDS ORDERED: NS (IVPB) 250 ML IV ONE (15:30)
[2020-06-04] MEDS ORDERED: KETAMINE/NaCl 50 MG/5 ML SYRINGE (ED ONLY) IV ONE (15:30)
[2020-06-04 15:54] VITALS: BP 148/98
== END 2020-06-04 16:01 | disposition home or self-care (01) ==
LOC: EDUNIT# 15:10 → ER 15:11
DX: M54.16 Radiculopathy, lumbar region (principal); E66.01 Morbid (severe) obesity due to excess calories; G89.29 Other chronic pain; I10 Essential (primary) hypertension; E78.00 Pure hypercholesterolemia, unspecified; E11.9 Type 2 diabetes mellitus without complications; K21.9 Gastro-esophageal reflux disease without esophagitis; M54.9 Dorsalgia, unspecified; F41.9 Anxiety disorder, unspecified; F32.9 Major depressive disorder, single episode, unspecified; J44.9 Chronic obstructive pulmonary disease, unspecified; Z68.30 Body mass index [BMI] 30.0-30.9, adult; Z77.22 Contact with and (suspected) exposure to environmental tobacco smoke (acute) (chronic); Z88.7 Allergy status to serum and vaccine; Z88.5 Allergy status to narcotic agent; Z79.82 Long term (current) use of aspirin; Z79.84 Long term (current) use of oral hypoglycemic drugs; Z79.891 Long term (current) use of opiate analgesic; Z79.52 Long term (current) use of systemic steroids

== ENCOUNTER 2021-01-10 16:10 | Emergency (ER) | payer MEDICARE, MEDICAID ==
[~2021-01-10] VITALS: Ht 165 cm; Wt 102.1 kg
[~2021-01-10 16:10] MED LIST changes: -DOCU-238 PO; +DOCU-26 PO; +ESCI20TA39 PO; -ESCI20TA45 PO; -LISI-552 PO; -LISI10TA2 PO; +LISI10TA25 PO; +LISI20TA26 PO; +METH-732 PO; -METH750T3 PO; -METO10TA3 PO; +MTC10T PO
[2021-01-10 16:59] LABS: BASOPHILS % (AUTO) 0 % (0-10); EOSINOPHILS % (AUTO) 0 % (0-10); HEMATOCRIT 36 % (35-52); HEMOGLOBIN 12.6 g/dL (11.5-16.0); LYMPHOCYTES # (AUTO) 2.2 10^3/uL (1.0-4.0); LYMPHOCYTES % (AUTO) 26 % (12-44); MEAN CORPUSCULAR HEMOGLOBIN 33 pg (25-34); MEAN CORPUSCULAR HGB CONC 35 g/dL (32-36); MEAN CORPUSCULAR VOLUME 95 fL (80-99); MEAN PLATELET VOLUME 8.7 fL (9.0-12.2); MONOCYTES # (AUTO) 0.5 10^3/uL (0.0-1.0); MONOCYTES % (AUTO) 6 % (0-12); NEUTROPHILS # (AUTO) 5.7 10^3/uL (1.8-7.8); NEUTROPHILS % (AUTO) 67 % (42-75); PLATELET COUNT 245 10^3/uL (130-400); WHITE BLOOD COUNT 8.4 10^3/uL (4.3-11.0)
[2021-01-10] MEDS ORDERED: diphenhydrAMINE 50 MG/ML INJ (BENADRYL) IVP ONE (17:00)
[2021-01-10] MEDS ORDERED: ORPHENADRINE 60 MG/2 ML (NORFLEX) AMP (ED ONLY) IV ONE (17:00)
[2021-01-10] MEDS ORDERED: KETOROLAC 30 MG/ML VIAL IVP ONE (17:00)
[2021-01-10 17:06] LABS: ALBUMIN 4.4 GM/DL (3.2-4.5); CHLORIDE 94 MMOL/L (98-107); POTASSIUM 4.2 MMOL/L (3.6-5.0); SODIUM 128 MMOL/L (135-145)
[2021-01-10 17:08] LABS: CALCIUM 9.3 MG/DL (8.5-10.1)
[2021-01-10 17:09] LABS: GLUCOSE 99 MG/DL (70-105); TOTAL PROTEIN 6.9 GM/DL (6.4-8.2)
[2021-01-10 17:10] LABS: CARBON DIOXIDE 22 MMOL/L (21-32)
[2021-01-10 17:11] LABS: BILIRUBIN,TOTAL 0.4 MG/DL (0.1-1.0)
[2021-01-10 17:12] LABS: ALKALINE PHOSPHATASE 89 U/L (40-136)
[2021-01-10 17:13] LABS: CREATININE SERUM 0.68 MG/DL (0.60-1.30); GFR ESTIMATED > 60
[2021-01-10 17:14] LABS: BUN/CREATININE RATIO 9
[2021-01-10 17:15] LABS: ALANINE AMINOTRANSFERASE 21 U/L (0-55)
[2021-01-10] MEDS ORDERED: NS IV 1000 ML 1,000 ML IV SCH (18:00)
--- NOTE | 2021-01-10 18:15 | Diagnostic Imaging Report ---
CLINICAL INDICATION: Patient with back pain. No known trauma. EXAM: Axial CT scan of the thoracic and lumbar spine performed without IV contrast. Sagittal and coronal reformations were performed. Bone and soft tissue windows were created. Auto Exposure Controls were utilized during the CT exam to meet ALARA standards for radiation dose reduction. COMPARISON: CT scan of the chest, abdomen, and pelvis with contrast dated 08/20/2019. FINDINGS: CT scan of the thoracic and lumbar spine shows no interval acute lumbar spine fracture or dislocation. There is no significant change to the dural based calcification along the expected anterior intradural region at the T12-L1 level with appearance of dural tail/calcification. This is suspected to represent a calcified meningioma. This area measures 8 mm in AP dimension x 3.4 cm in craniocaudal dimension. There is associated mild to moderate central canal stenosis at the T12-L1 level. There is L3-S1 posterior lumbar interbody fusion. There is interval placement of L3-L4 left direct interbody fusion hardware in place. Previously seen grade 1 retrolisthesis of L3 on L4 is now near anatomical. There is interval L3 laminectomy. There is no gross hardware complication as visualized. There are degenerative spurs and facet arthropathy involving the thoracic and lumbar spine. There is no significant bony central canal narrowing besides the suspected meningioma. There are areas of mild neural foramen narrowing involving the thoracic spine. There is no significant bony central canal narrowing. There is [id number] bilateral L5-S1 neural foramen narrowing due to facet arthropathy and vertebral body spurs. Remainder of the lumbar spine shows no significant bony neural foramen narrowing. Suspect a small amount of fluid in the posterior lumbar operative region. IMPRESSION: 1: There is no acute thoracic or lumbar spine fracture. 2: There are interval postoperative changes with placement of left L3-L4 direct lateral interbody fusion with improved alignment of the L3-L4 region. There is now L3-S1 posterior lumbar fusion hardware. There is no definite hardware complication. 3: There is no significant change to the suspected calcified meningioma along the anterior dural region causing [id number] central canal narrowing. Dictated by: Dictated on workstation # [id number]
[2021-01-10] MEDS ORDERED: LIDO700A45 TP (18:21)
--- NOTE | 2021-01-10 18:21 | ED Back Pain ---
General Chief Complaint: Back Problems Stated Complaint: LOWER BACK PAIN Nursing Triage Note: pt to ER rm 3 by wheelchair with complaint of lower back pain onset 2 weeks ago but worse roday. Pt reports that she was at Dr Ram office before coming here and she was in such severe pain, he instructed her to be seen in an ER Allergies and Home Medications Allergies Coded Allergies: Influenza Virus Vaccines (Verified Allergy, Unknown, 08/26/19) tramadol (Unverified Allergy, Unknown, 11/22/16) Uncoded Allergies: PNEUMONIA SHOT (Allergy, Unknown, 11/22/16) Home Medications Albuterol Sulfate 8.5 Gm Hfa.aer.ad, 8.5 GM IH Q4H Prescribed by: PHILIP GILMORE on 06/23/15 155 Albuterol Sulfate 6.7 Gm Hfa.aer.ad, 2 PUFF IH Q4H PRN for SHORTNESS OF BREATH Prescribed by: ANDRE LORD on 08/01/172053 Albuterol Sulfate 18 Gm Hfa.aer.ad, 2 PUFF PO Q4H PRN for SHORTNESS OF BREATH, ( Reported) Alprazolam 0.5 Mg Tablet, 0.5 MG PO DAILY, (Reported) Aspirin 81 Mg Tablet.dr, 81 MG PO DAILY, (Reported) Benzonatate 200 Mg Capsule, 200 MG PO Q8H PRN for COUGH Prescribed by: ANDRE LORD on 08/01/172053 Budesonide/Formoterol Fumarate 10.2 Gm Hfa.aer.ad, 2 PUFF IH BID, (Reported) Bupropion HCl 150 Mg Tablet.er, 150 MG PO BID, (Reported) Diazepam 10 Mg Tablet, 5-10 MG PO HS, (Reported) Diclofenac Sodium 75 Mg Tablet.dr, 75 MG PO BID, (Reported) Docusate Sodium 100 Mg Capsule, 100 MG PO DAILY PRN PRN for CONSTIPATION-1ST LINE Prescribed by: CEDRICK SALVADOR on 08/24/19 131 Escitalopram Oxalate 20 Mg Tablet, 20 MG PO DAILY, (Reported) Fluoxetine Hcl 20 Mg Capsule, 1 EACH PO DAILY, (Reported) Furosemide 40 Mg Tablet, 40 MG PO DAILY Prescribed by: CEDRICK SALVADOR on 08/24/19 1315 Gabapentin 600 Mg Tablet, 600 MG PO Q8H PRN for NERVE PAIN, (Reported) Hydrocodone Bit/Acetaminophen 1 Each Tablet, 1 TAB PO Q6H PRN for PAIN-SEVERE (8-10) Prescribed by: CEDRICK SALVADOR on 08/24/19 131 Lisinopril 10 Mg Tablet, 10 MG PO DAILY, (Reported) Lisinopril 20 Mg Tablet, 20 MG PO DAILY@0900 Prescribed by: CEDRICK SALVADOR on 08/24/19 131 Loperamide HCl 2 Mg Capsule, 4 MG PO NEEDED PRN for DIARRHEA Prescribed by: CEDRICK SALVADOR on 08/24/19 131 Meloxicam 15 Mg Tablet, 15 MG PO DAILY, (Reported) Metformin HCl 500 Mg Tab.er.24h, 500 MG PO DAILY, (Reported) Methocarbamol 750 Mg Tablet, 750 MG PO Q8H PRN for MUSCLE SPASMS, (Reported) Methocarbamol 750 Mg Tablet, 750 MG PO Q4H PRN for PAIN-MODERATE (5-7) Prescribed by: PHILIP GILMORE on 01/09/20 142 Metoprolol Tartrate 50 Mg Tablet, 50 MG PO BID Prescribed by: CEDRICK SALVADOR on 08/24/19 131 Miconazole Nitrate 90 Gm Powder, 0 GM TOP BID Prescribed by: CEDRICK SALVADOR on 08/24/19 131 Naproxen 500 Mg Tablet, 500 MG PO BID Prescribed by: PHILIP GILMORE on 01/09/20 142 Naproxen 500 Mg Tablet, 500 MG PO BID Prescribed by: PHILIP GILMORE on 06/04/20 1520 Omeprazole 20 Mg Capsule.dr, 20 MG PO DAILY, (Reported) Ondansetron 4 Mg Tab.rapdis, 4 MG PO Q4H PRN for NAUSEA/VOMITING-1ST LINE, (Reported) Oxybutynin Chloride 5 Mg Tablet, 5 MG PO BID, (Reported) Prednisone 20 Mg Tab, 40 MG PO DAILY Prescribed by: ANDRE LORD on 08/01/172053 Pregabalin 75 Mg Capsule, 75 MG PO BID, (Reported) Ranitidine HCl 150 Mg Tablet, 150 MG PO BID, (Reported) Simvastatin 40 Mg Tablet, 40 MG PO DAILY, (Reported) Simvastatin 40 Mg Tablet, 40 MG PO DAILY, (Reported) Past Zhubxfs-Onzuon-Jzhueb Hx Patient Social History Tobacco Use?: Yes Tobacco type used: Cigarettes Smoking Status: Current Everyday Smoker Substance use?: No Alcohol Use?: No Pt feels they are or have been: No Immunizations Up To Date Tetanus Booster (TDap): Unknown PED Vaccines UTD: Yes Influenza Vaccine Up-to-Date: No; Not Current Seasonal Allergies Seasonal Allergies: No Past Medical History Surgeries: Yes (BACK SURGERY 2017; FOOT SURGERY) Gallbladder, Hysterectomy, Orthopedic, Tonsillectomy, Tubal Ligation Respiratory: Yes (07/2019--PNEUMONIA WITH SEPTIC SHOCK AND INTUBATED. 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 Genitourinary: No Gastrointestinal: Yes (delayed emptying) Gastroesophageal Reflux, Gall Bladder Disease Musculoskeletal: Yes (foot surgery; BACK SURGERY) Chronic Back Pain Endocrine: Yes (MORBID OBESITY) Diabetes, Non-Insulin dep HEENT: No Cancer: No Psychosocial: Yes (RX DRUG ABUSE) Anxiety, Depression Integumentary: No Blood Disorders: No Family Medical History No Pertinent Family Hx Physical Exam Vital Signs Vital Signs - First Documented 01/10/21 16:18 Temp 36.2 Pulse 107 Resp 20 B/P (MAP) 198/114 (142) Capillary Refill : Less Than 3 Seconds Height, Weight, BMI Height: 5'8.00" Weight: 220lbs. oz. 99.493213en; 37.00 BMI Method:Stated Procedures/Interventions Date of ETT Placement: Aug 16, 2019 Time of ETT Placement: 2300 Progress/Results/Core Measures Results/Orders Lab Results Laboratory Tests Test 01/10/21 16:17 Range/Units White Blood Count 8.4 4.3-11.0 10^3/uL Red Blood Count 3.80 3.80-5.11 10^6/uL Hemoglobin 12.6 11.5-16.0 g/dL Hematocrit 36 35-52 % Mean Corpuscular Volume 95 80-99 fL Mean Corpuscular Hemoglobin 33 25-34 pg Mean Corpuscular Hemoglobin Concent 35 32-36 g/dL Red Cell Distribution Width 13.1 10.0-14.5 % Platelet Count 245 130-400 10^3/uL Mean Platelet Volume 8.7 L 9.0-12.2 fL Immature Granulocyte % (Auto) 0 % Neutrophils (%) (Auto) 67 42-75 % Lymphocytes (%) (Auto) 26 12-44 % Monocytes (%) (Auto) 6 0-12 % Eosinophils (%) (Auto) 0 0-10 % Basophils (%) (Auto) 0 0-10 % Neutrophils # (Auto) 5.7 1.8-7.8 10^3/uL Lymphocytes # (Auto) 2.2 1.0-4.0 10^3/uL Monocytes # (Auto) 0.5 0.0-1.0 10^3/uL Eosinophils # (Auto) 0.0 0.0-0.3 10^3/uL Basophils # (Auto) 0.0 0.0-0.1 10^3/uL Immature Granulocyte # (Auto) 0.0 0.0-0.1 10^3/uL Sodium Level 128 L 135-145 MMOL/L Potassium Level 4.2 3.6-5.0 MMOL/L Chloride Level 94 L 98-107 MMOL/L Carbon Dioxide Level 22 21-32 MMOL/L Anion Gap 12 5-14 MMOL/L Blood Urea Nitrogen 6 L 7-18 MG/DL Creatinine 0.68 0.60-1.30 MG/DL Estimat Glomerular Filtration Rate > 60 BUN/Creatinine Ratio 9 Glucose Level 99 70-105 MG/DL Calcium Level 9.3 8.5-10.1 MG/DL Corrected Calcium 9.0 8.5-10.1 MG/DL Total Bilirubin 0.4 0.1-1.0 MG/DL Aspartate Amino Transf (AST/SGOT) 22 5-34 U/L Alanine Aminotransferase (ALT/SGPT) 21 0-55 U/L Alkaline Phosphatase 89 40-136 U/L Total Protein 6.9 6.4-8.2 GM/DL Albumin 4.4 3.2-4.5 GM/DL Serum Alcohol < 10 <10 MG/DL My Orders Orders - SRUTHI SCHUMACHER DO Ed Iv/Invasive Line Start (01/10/21 16:48) Monitor-Rhythm Ecg Trace Only (01/10/21 16:48) Alcohol (01/10/21 16:48) Cbc With Automated Diff (01/10/21 16:48) Comprehensive Metabolic Panel (01/10/21 16:48) Drug Screen Stat (Urine) (01/10/21 16:48) Ua Culture If Indicated (01/10/21 16:48) Orphenadrine Inj (Ed Only) (Norflex Inje (01/10/21 17:00) Ketorolac Injection (Toradol Injection) (01/10/21 17:00) Diphenhydramine Injection (Benadryl Inje (01/10/21 17:00) Ed Iv/Invasive Line Start (01/10/21 17:49) Ns Iv 1000 Ml (Sodium Chloride 0.9%) (01/10/21 18:00) Ct Thoracic/Lumbar Spine Wo (01/10/21 16:48) Medications Given in ED Current Medications Medications Dose Ordered Sig/Raquel Route Start Time Stop Time Status Last Admin Dose Admin Diphenhydramine HCl 50 mg ONCE ONCE IVP 01/10/21 17:00 01/10/21 17:01 DC 01/10/21 17:29 50 MG Ketorolac Tromethamine 30 mg ONCE ONCE IVP 01/10/21 17:00 01/10/21 17:01 DC 01/10/21 17:28 30 MG Orphenadrine Citrate 60 mg ONCE ONCE IV 01/10/21 17:00 01/10/21 17:01 DC 01/10/21 17:29 60 MG Vital Signs/I&O 01/10/21 16:18 Temp 36.2 Pulse 107 Resp 20 B/P (MAP) 198/114 (142) Blood Pressure Mean: 142 Departure Impression Primary Impression: Acute exacerbation of chronic low back pain Disposition: HOME, SELF-CARE Condition: Improved Departure-Patient Inst. Referrals: LIZZETTE CAMP MD (PCP) Primary Care Physician NEHAL MAX APRN (Family) Primary Care Physician PAMELA SHARPE DO Patient Instructions: MANAGING YOUR CHRONIC PAIN, Low Back Pain (DC) Add. Discharge Instructions: CONTINUE YOUR REGULAR MEDICATIONS PRESCRIBED, INCLUDING GABAPENTIN, MELOXICAM AND METHOCARBAMOL FOLLOW UP WITH DR. SHARPE FOR FURTHER CARE All discharge instructions reviewed with patient and/or family. Voiced understanding. Scripts Lidocaine (Lidocaine 5% Patch) 1 Each Adh..patch 1 EACH TP Q12H PRN for Neuropathic pain MDD 2, #10 PATCH 2 patches max for 12 hours, then 12 hours patch-free period. Prov: SRUTHI SCHUMACHER DO 01/10/21 SRUTHI SCHUMACHER DO Jan 10, 2021 18:21
[2021-01-10 18:51] LABS: BILIRUBIN,URINE NEGATIVE (NEGATIVE); CLARITY,URINE CLEAR; COLOR,URINE YELLOW; GLUCOSE, URINE (UA) NEGATIVE (NEGATIVE); KETONES,URINE NEGATIVE (NEGATIVE); LEUKOCYTE ESTERASE ,URINE NEGATIVE (NEGATIVE); NITRITE,URINE NEGATIVE (NEGATIVE); PROTEIN,URINE NEGATIVE (NEGATIVE)
[2021-01-10 19:08] LABS: AMORPHOUS SEDIMENT,UR RARE AMOR URATES /LPF; BACTERIA,URINE TRACE /HPF; RBC,URINE 0-2 /HPF; WBC,URINE 0-2 /HPF
[2021-01-10 19:14] LABS: AMPHETAMINE SCREEN, URINE NEGATIVE (NEGATIVE); BARBITURATE SCREEN URINE NEGATIVE (NEGATIVE); BENZODIAZEPINES SCREEN URINE POSITIVE (NEGATIVE); CANNABINOID SCREEN, URINE NEGATIVE (NEGATIVE); COCAINE SCREEN URINE NEGATIVE (NEGATIVE); METHADONE STAT NEGATIVE (NEGATIVE); METHAMPHETAMINE SCREEN URINE S NEGATIVE (NEGATIVE); OPIATE SCREEN URINE NEGATIVE (NEGATIVE); OXYCODONE STAT NEGATIVE (NEGATIVE); PROPOXYPHENE STAT NEGATIVE (NEGATIVE); TRICYCLIC ANTIDEPRESSANTS SCRE NEGATIVE (NEGATIVE)
[2021-01-10 19:40] VITALS: BP 151/95
== END 2021-01-10 19:40 | disposition home or self-care (01) ==
LOC: EDUNIT# 16:10 → ER 16:13
DX: G89.29 Other chronic pain (principal); M54.5 Low back pain; I10 Essential (primary) hypertension; J44.9 Chronic obstructive pulmonary disease, unspecified; K21.9 Gastro-esophageal reflux disease without esophagitis; E11.9 Type 2 diabetes mellitus without complications; E78.00 Pure hypercholesterolemia, unspecified; E66.01 Morbid (severe) obesity due to excess calories; F41.9 Anxiety disorder, unspecified; F32.9 Major depressive disorder, single episode, unspecified; F17.210 Nicotine dependence, cigarettes, uncomplicated; Z68.37 Body mass index [BMI] 37.0-37.9, adult; Z79.82 Long term (current) use of aspirin; Z79.899 Other long term (current) drug therapy; Z79.52 Long term (current) use of systemic steroids; Z79.891 Long term (current) use of opiate analgesic; Z79.84 Long term (current) use of oral hypoglycemic drugs
CPT/HCPCS: 51701; 72128; 72131; 80053; 80306; 81000; 85025; 93041; 99284; G0480; 36415; 80320

== ENCOUNTER 2021-05-30 06:27 | Emergency (ER) | payer MEDICARE, MEDICAID ==
[~2021-05-30] VITALS: Ht 173 cm; Wt 91.0 kg
[~2021-05-30 06:27] MED LIST changes: +DICY20TA PO; -DICY20TA10 PO; +LIDO700A45 TP; -MAGN400T8 PO; +MGX400T PO
[2021-05-30] MEDS ORDERED: GBPN600T PO (07:28)
[2021-05-30] MEDS ORDERED: LISI10TA25 PO (07:28)
[2021-05-30] MEDS ORDERED: SIMV40TA25 PO (07:28)
[2021-05-30] MEDS ORDERED: METH-732 PO (07:28)
--- NOTE | 2021-05-30 07:28 | ED Psychosocial ---
General Chief Complaint: Psych/Social Disorder Stated Complaint: SOB,DIZZY Nursing Triage Note: PT TO ED BY EMS FROM HOME WITH C/O PANIC ATTACK. PT REPORTS THE PHARMACY WOULDN'T REFILL HER MEDICATIONS UNTIL SHE SAW A PROVIDER. REPORTS SHE HAS BEEN HAVING PANIC ATTACKS BECAUSE HER BOYFRIEND IS BREAKING UP WITH HER AND SHE HAS TO FIND SOMEWHERE ELSE TO LIVE. Source: patient, EMS Exam Limitations: no limitations History of Present Illness Date Seen by Provider: May 30, 2021 Time Seen by Provider: 06:40 Initial Comments This 61-year-old woman presents to the emergency room via EMS with concerns about lacking medications and anxiety with acute "panic attack" this morning. Patient states she did not want to come to the emergency room but she was talked into it by her family. She reports significant psychosocial stressors recently. She has recently moved from [place] to [place]. She is having to change medical providers and therefore has lapsed on some of her prescriptions. She reports she just wants everyone to "leave me alone. She expresses desire to cease living but adamantly states she is not actively suicidal and would never intend to harm herself. She also struggles with chronic back pain. Allergies and Home Medications Allergies Coded Allergies: Influenza Virus Vaccines (Verified Allergy, Unknown, 08/26/19) tramadol (Unverified Allergy, Unknown, 11/22/16) Uncoded Allergies: PNEUMONIA SHOT (Allergy, Unknown, 11/22/16) Patient Home Medication List Home Medication List Reviewed: Yes Albuterol Sulfate (Proair Hfa) 8.5 Gm Hfa.aer.ad, 8.5 GM IH Q4H Prescribed by: PHILIP GILMORE on 06/23/15 1552 Albuterol Sulfate (Proventil Hfa) 6.7 Gm Hfa.aer.ad, 2 PUFF IH Q4H PRN for SHORTNESS OF BREATH Prescribed by: ANDRE LORD on 08/01/172053 Albuterol Sulfate (Ventolin Hfa) 18 Gm Hfa.aer.ad, 2 PUFF PO Q4H PRN for SHORTNESS OF BREATH, (Reported) Entered as Reported by: DESMOND WATTS on 08/17/19 1126 Alprazolam (Alprazolam) 0.5 Mg Tablet, 0.5 MG PO DAILY, (Reported) Entered as Reported by: BERTHA MOSES on 06/13/16 1638 Aspirin (Aspirin EC) 81 Mg Tablet.dr, 81 MG PO DAILY, (Reported) Entered as Reported by: DESMOND WATTS on 08/17/19 1126 Benzonatate (Benzonatate) 200 Mg Capsule, 200 MG PO Q8H PRN for COUGH Prescribed by: ANDRE LORD on 08/01/172053 Budesonide/Formoterol Fumarate (Symbicort 160-4.5 Mcg Inhaler) 10.2 Gm Hfa.aer.ad, 2 PUFF IH BID, (Reported) Entered as Reported by: DESMOND WATTS on 08/17/19 1136 Bupropion HCl (Bupropion HCl Sr) 150 Mg Tablet.er, 150 MG PO BID, (Reported) Entered as Reported by: BERTHA MOSES on 06/13/16 1638 Diazepam (Diazepam) 10 Mg Tablet, 5-10 MG PO HS, (Reported) Entered as Reported by: DESMOND WATTS on 08/17/19 1126 Diclofenac Sodium (Diclofenac Sodium) 75 Mg Tablet., 75 MG PO BID, (Reported) Entered as Reported by: BERTHA MOSES on 06/13/16 1638 Docusate Sodium (Stool Softener) 100 Mg Capsule, 100 MG PO DAILY PRN PRN for CONSTIPATION-1ST LINE Prescribed by: CEDRICK SALVADOR on 08/24/19 1315 Escitalopram Oxalate (Escitalopram Oxalate) 20 Mg Tablet, 20 MG PO DAILY, (Reported) Entered as Reported by: DESMOND WATTS on 08/17/19 1126 Fluoxetine Hcl (Prozac) 20 Mg Capsule, 1 EACH PO DAILY, (Reported) Entered as Reported by: MATTEO SERRANO on 08/14/12 2145 Furosemide (Lasix) 40 Mg Tablet, 40 MG PO DAILY Prescribed by: CEDRICK SALVADOR on 08/24/19 1315 Gabapentin (Gabapentin) 600 Mg Tablet, 600 MG PO Q8H PRN for NERVE PAIN, (Reported) Entered as Reported by: DESMOND WATTS on 08/17/19 1136 Gabapentin (Gabapentin) 600 Mg Tablet, 600 MG PO TID PRN for PAIN-MODERATE (5-7) Prescribed by: OSCAR BURNS on 05/30/21 0728 Hydrocodone Bit/Acetaminophen (HYDROcodone/APAP 10/325 TABLET) 1 Each Tablet, 1 TAB PO Q6H PRN for PAIN-SEVERE (8-10) Prescribed by: CEDRICK SALVADOR on 08/24/19 1316 Lidocaine (Lidocaine 5% Patch) 1 Each Adh..patch, 1 EACH TP Q12H PRN for Neuropathic pain Prescribed by: SURTHI SCHUMACHER on 01/10/21 1821 Lisinopril (Prinivil) 10 Mg Tablet, 10 MG PO DAILY, (Reported) Entered as Reported by: MATTEO SERRANO on 08/14/12 2145 Lisinopril (Lisinopril) 20 Mg Tablet, 20 MG PO DAILY@0900 Prescribed by: CEDRICK SALVADOR on 08/24/19 131 Lisinopril (Lisinopril) 10 Mg Tablet, 10 MG PO DAILY Prescribed by: OSCAR BURNS on 05/30/21 0728 Loperamide HCl (Loperamide) 2 Mg Capsule, 4 MG PO NEEDED PRN for DIARRHEA Prescribed by: CEDRICK SALVADOR on 08/24/19 131 Meloxicam (Meloxicam) 15 Mg Tablet, 15 MG PO DAILY, (Reported) Entered as Reported by: DESMOND WATTS on 08/17/19 1126 Metformin HCl (Metformin HCl ER) 500 Mg Tab.er.24h, 500 MG PO DAILY, (Reported) Entered as Reported by: DESMOND WATTS on 08/17/19 1126 Methocarbamol (Methocarbamol) 750 Mg Tablet, 750 MG PO Q8H PRN for MUSCLE SPASMS, (Reported) Entered as Reported by: DESMOND WATTS on 08/17/19 1136 Methocarbamol (Robaxin-750) 750 Mg Tablet, 750 MG PO Q4H PRN for PAIN-MODERATE (5-7) Prescribed by: PHILIP GILMORE on 01/09/20 1429 Methocarbamol (Methocarbamol) 750 Mg Tablet, 750 MG PO Q6-8HR Prescribed by: OSCAR BURNS on 05/30/21 0728 Metoprolol Tartrate (Metoprolol Tartrate) 50 Mg Tablet, 50 MG PO BID Prescribed by: CEDRICK SALVADOR on 08/24/19 131 Miconazole Nitrate (Lotrimin AF) 90 Gm Powder, 0 GM TOP BID Prescribed by: CEDRICK SALVADOR on 08/24/19 1315 Naproxen (Naprosyn) 500 Mg Tablet, 500 MG PO BID Prescribed by: PHILIP GILMORE on 01/09/20 1429 Naproxen (Naprosyn) 500 Mg Tablet, 500 MG PO BID Prescribed by: PHILIP GILMORE on 06/04/20 1520 Omeprazole (Omeprazole) 20 Mg Capsule.dr, 20 MG PO DAILY, (Reported) Entered as Reported by: DESMOND WATTS on 08/17/19 1136 Ondansetron (Ondansetron Odt) 4 Mg Tab.rapdis, 4 MG PO Q4H PRN for NAUSEA/VOMITING-1ST LINE, (Reported) Entered as Reported by: DESMOND WATTS on 08/17/19 1136 Oxybutynin Chloride (Oxybutynin Chloride) 5 Mg Tablet, 5 MG PO BID, (Reported) Entered as Reported by: DESMOND WATTS on 08/17/19 1126 Prednisone (Prednisone) 20 Mg Tab, 40 MG PO DAILY Prescribed by: ANDRE LORD on 08/01/172053 Pregabalin (Lyrica) 75 Mg Capsule, 75 MG PO BID, (Reported) Entered as Reported by: BERTHA MOSES on 06/13/16 1638 Ranitidine HCl (Ranitidine HCl) 150 Mg Tablet, 150 MG PO BID, (Reported) Entered as Reported by: BERTHA MOSES on 06/13/16 1638 Simvastatin (Simvastatin) 40 Mg Tablet, 40 MG PO DAILY, (Reported) Entered as Reported by: BERTHA MOSES on 06/13/16 1638 Simvastatin (Simvastatin) 40 Mg Tablet, 40 MG PO DAILY, (Reported) Entered as Reported by: DESMOND WATTS on 08/17/19 1136 Simvastatin (Simvastatin) 40 Mg Tablet, 40 MG PO HS Prescribed by: OSCAR BURNS on 05/30/21 0728 Review of Systems Constitutional: no symptoms reported EENTM: no symptoms reported Respiratory: no symptoms reported Cardiovascular: no symptoms reported Gastrointestinal: no symptoms reported Genitourinary: no symptoms reported Musculoskeletal: see HPI Skin: no symptoms reported Psychiatric/Neurological: See HPI Past Qwlfhns-Wevobr-Tadqyy Hx Patient Social History Tobacco Use?: Yes Tobacco type used: Cigarettes Smoking Status: Current Everyday Smoker Use of E-Cig and/or Vaping dev: No Substance use?: No Alcohol Use?: No Pt feels they are or have been: No Immunizations Up To Date Tetanus Booster (TDap): Unknown PED Vaccines UTD: Yes Influenza Vaccine Up-to-Date: No; Not Current First/Initial COVID19 Vaccinat: N/A Seasonal Allergies Seasonal Allergies: No Past Medical History Surgery/Hospitalization HX: BACK SURGERY--LUMBAR AREA IN 2017, BY DR. SHARPE AT [address] EMPHYSEMA, COPD, ANXIETY Surgeries: Yes (BACK SURGERY 2017; FOOT SURGERY) Gallbladder, Hysterectomy, Orthopedic, Tonsillectomy, Tubal Ligation Respiratory: Yes (07/2019--PNEUMONIA WITH SEPTIC SHOCK AND INTUBATED. 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 Genitourinary: No Gastrointestinal: Yes (delayed emptying) Gastroesophageal Reflux, Gall Bladder Disease Musculoskeletal: Yes (foot surgery; BACK SURGERY) Chronic Back Pain Endocrine: Yes (MORBID OBESITY) Diabetes, Non-Insulin dep HEENT: No Cancer: No Psychosocial: Yes (RX DRUG ABUSE) Anxiety, Depression Integumentary: No Blood Disorders: No Family Medical History No Pertinent Family Hx Physical Exam Vital Signs - First Documented 05/30/21 06:27 Temp 36.8 Pulse 107 Resp 20 B/P (MAP) 176/104 (128) Pulse Ox 98 O2 Delivery Room Air Capillary Refill : Less Than 3 Seconds Height, Weight, BMI Height: 5'8.00" Weight: 220lbs. oz. 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, no motor/sensory deficits, alert, oriented x 3, other (Anxious, tearful, depressed, passive suicidal expressions with adamant statement that she is not actively suicidal and would never intend to harm herself) Appearance/Memory: appropriate appearance, appropriate insight Behavior/Eye Contact: cooperative, good eye contact, normal speech Thoughts/Hallucinations: no apparent hallucination Skin: normal color, warm/dry Procedures/Interventions Date of ETT Placement: Aug 16, 2019 Time of ETT Placement: 0 Progress/Results/Core Measures Results/Orders Lab Results Laboratory Tests Test 05/30/21 07:37 Range/Units Urine Color YELLOW Urine Clarity CLEAR Urine pH 6.0 5-9 Urine Specific Wallace <=1.005 1.016-1.022 Urine Protein NEGATIVE NEGATIVE Urine Glucose (UA) NEGATIVE NEGATIVE Urine Ketones NEGATIVE NEGATIVE Urine Nitrite NEGATIVE NEGATIVE Urine Bilirubin NEGATIVE NEGATIVE Urine Urobilinogen 0.2 < = 1.0 MG/DL Urine Leukocyte Esterase NEGATIVE NEGATIVE Urine RBC (Auto) NEGATIVE NEGATIVE Urine RBC NONE /HPF Urine WBC NONE /HPF Urine Squamous Epithelial Cells NONE /HPF Urine Crystals NONE /LPF Urine Bacteria NEGATIVE /HPF Urine Casts NONE /LPF Urine Mucus NEGATIVE /LPF Urine Culture Indicated NO My Orders Orders - OSCAR DING MD Ua Culture If Indicated (05/30/21 07:12) Vital Signs/I&O Blood Pressure Mean: 128 Progress Progress Note : Time: 07:42 Progress Note Patient did express some passive thoughts of wanting her life to and but adamantly denies any active suicidal thinking or intention. I reviewed her medications and the note provided by [facility] pharmacy. From what I can ascertain, it appears that she needs lisinopril, gabapentin, simvastatin, and Robaxin. She was given a prescription to hold her over until her appointment at [facility] on June 19. I advised her to be sure she is actually picked up the medications that were filled on May 24 and that she be sure to take her mental health medications including Lexapro and Viibryd. Hopefully restarting the gabapentin will also provide her with some mood stability. Departure Impression Primary Impression: Anxiety Additional Impressions: Depression Qualified Codes: F32.A - Depression, unspecified Acute exacerbation of chronic low back pain Disposition: 01 HOME, SELF-CARE Condition: Stable Departure-Patient Inst. Decision time for Depature: 07:23 Referrals: LIZZETTE CAMP MD (PCP) Primary Care Physician NEHAL MAX APRN (Family) Primary Care Physician Patient Instructions: Low Back Pain in Adults, Anxiety, Adult (DC) Add. Discharge Instructions: Keep your appointment later this month to establish care with a new primary care provider. Drink plenty of clear liquids to stay well-hydrated. Use your medications as prescribed. Call with questions or concerns. Return to the ER if you have worsening symptoms. If you have any behavioral health crises or develop suicidal thinking, please call the [facility] crisis line at [phone], call 911, or return to the emergency room. All discharge instructions reviewed with patient and/or family. Voiced understanding. Scripts Simvastatin (Simvastatin) 40 Mg Tablet 40 MG PO HS, #30 TAB Prov: OSCAR DING MD 05/30/21 Lisinopril (Lisinopril) 10 Mg Tablet 10 MG PO DAILY, #30 TAB Prov: OSCAR DING MD 05/30/21 Gabapentin (Gabapentin) 600 Mg Tablet 600 MG PO TID PRN for PAIN-MODERATE (5-7), #60 TAB Prov: OSCAR DING MD 05/30/21 Methocarbamol (Methocarbamol) 750 Mg Tablet 750 MG PO Q6-8HR for Back Pain, #60 TAB Prov: OSCAR DING MD 05/30/21 Copy Copies To 1: ADALBERTO JIN JOSHUA T MD May 30, 2021 07:28
[2021-05-30 07:42] LABS: BILIRUBIN,URINE NEGATIVE (NEGATIVE); CLARITY,URINE CLEAR; COLOR,URINE YELLOW; GLUCOSE, URINE (UA) NEGATIVE (NEGATIVE); KETONES,URINE NEGATIVE (NEGATIVE); LEUKOCYTE ESTERASE ,URINE NEGATIVE (NEGATIVE); NITRITE,URINE NEGATIVE (NEGATIVE); PROTEIN,URINE NEGATIVE (NEGATIVE)
[2021-05-30 07:46] VITALS: BP 159/107
[2021-05-30 07:51] LABS: BACTERIA,URINE NEGATIVE /HPF
== END 2021-05-30 07:46 | disposition home or self-care (01) ==
LOC: EDUNIT# 06:27 → ER 06:30
DX: F41.9 Anxiety disorder, unspecified (principal); F32.9 Major depressive disorder, single episode, unspecified; G89.29 Other chronic pain; M54.50 Low back pain, unspecified; E66.01 Morbid (severe) obesity due to excess calories; J44.9 Chronic obstructive pulmonary disease, unspecified; I10 Essential (primary) hypertension; K21.9 Gastro-esophageal reflux disease without esophagitis; E11.9 Type 2 diabetes mellitus without complications; Z68.30 Body mass index [BMI] 30.0-30.9, adult; F17.210 Nicotine dependence, cigarettes, uncomplicated; Z79.84 Long term (current) use of oral hypoglycemic drugs; Z79.899 Other long term (current) drug therapy; Z79.891 Long term (current) use of opiate analgesic; Z79.82 Long term (current) use of aspirin
CPT/HCPCS: 81000; 99283

== ENCOUNTER 2021-07-01 17:21 | Emergency (ER) | payer MEDICARE, MEDICAID ==
[~2021-07-01] VITALS: Ht 172 cm; Wt 95.2 kg
--- NOTE | 2021-07-01 18:14 | ED General ---
General Stated Complaint: HEADACHE,BODY ACHE,ABD PAIN,SOA Source of Information: Patient History of Present Illness Date Seen by Provider: Jul 01, 2021 Time Seen by Provider: 17:59 Initial Comments PT ARRIVES VIA POV FROM HOME C/O HEADACHE C/O BODY ACHES C/O SHORTNESS OF BREATH--PT HAS COPD C/O LOWER ABDOMINAL DISCOMFORT ALSO C/O LOWER BACK PAIN --PT WITH CHRONIC LOW BACK PAIN NO FEVER, BUT HAS HAD CHILLS NO COUGH NO NAUSEA/VOMITING/DIARRHEA NO LOSS OF TASTE OR SMELL C/O MALAISE/FATIGUE PT STATES ONE OF HER CAREGIVERS RECENTLY TESTED + FOR COVID PT HAS NOT HAD COVID-19 VACCINE PCP: "JUST MOVED HERE" BUT IS PLANNING ON ESTABLISHING WITH [facility] [place] Home Medications Allergies Coded Allergies: Influenza Virus Vaccines (Verified Allergy, Unknown, 08/26/19) tramadol (Unverified Allergy, Unknown, 11/22/16) Uncoded Allergies: PNEUMONIA SHOT (Allergy, Unknown, 11/22/16) Patient Home Medication List Home Medication List Reviewed: Yes Albuterol Sulfate (Proair Hfa) 8.5 Gm Hfa.aer.ad, 8.5 GM IH Q4H Prescribed by: PHILIP GILMORE on 06/23/15 1552 Albuterol Sulfate (Proventil Hfa) 6.7 Gm Hfa.aer.ad, 2 PUFF IH Q4H PRN for SHORTNESS OF BREATH Prescribed by: ANDRE LORD on 08/01/172053 Albuterol Sulfate (Ventolin Hfa) 18 Gm Hfa.aer.ad, 2 PUFF PO Q4H PRN for SHORTNESS OF BREATH, (Reported) Entered as Reported by: DESMOND WATTS on 08/17/19 1126 Alprazolam (Alprazolam) 0.5 Mg Tablet, 0.5 MG PO DAILY, (Reported) Entered as Reported by: BERTHA MOSES on 06/13/16 1638 Aspirin (Aspirin EC) 81 Mg Tablet.dr, 81 MG PO DAILY, (Reported) Entered as Reported by: DESMOND WATTS on 08/17/19 1126 Benzonatate (Benzonatate) 200 Mg Capsule, 200 MG PO Q8H PRN for COUGH Prescribed by: ANDRE LORD on 08/01/172053 Budesonide/Formoterol Fumarate (Symbicort 160-4.5 Mcg Inhaler) 10.2 Gm Hfa.aer.ad, 2 PUFF IH BID, (Reported) Entered as Reported by: DESOMND WATTS on 08/17/19 1136 Bupropion HCl (Bupropion HCl Sr) 150 Mg Tablet.er, 150 MG PO BID, (Reported) Entered as Reported by: BERTHA MOSES on 06/13/16 1638 Diazepam (Diazepam) 10 Mg Tablet, 5-10 MG PO HS, (Reported) Entered as Reported by: DESMOND WATTS on 08/17/19 1126 Diclofenac Sodium (Diclofenac Sodium) 75 Mg Tablet.dr, 75 MG PO BID, (Reported) Entered as Reported by: BERTHA MOSES on 06/13/16 1638 Docusate Sodium (Stool Softener) 100 Mg Capsule, 100 MG PO DAILY PRN PRN for CONSTIPATION-1ST LINE Prescribed by: CEDRICK SALVADOR on 08/24/19 1315 Escitalopram Oxalate (Escitalopram Oxalate) 20 Mg Tablet, 20 MG PO DAILY, (Reported) Entered as Reported by: DESMOND WATTS on 08/17/19 1126 Fluoxetine Hcl (Prozac) 20 Mg Capsule, 1 EACH PO DAILY, (Reported) Entered as Reported by: MATTEO SERRANO on 08/14/12 2145 Furosemide (Lasix) 40 Mg Tablet, 40 MG PO DAILY Prescribed by: CEDRICK SALVADOR on 08/24/19 1315 Gabapentin (Gabapentin) 600 Mg Tablet, 600 MG PO Q8H PRN for NERVE PAIN, (Reported) Entered as Reported by: DESMOND WATTS on 08/17/19 1136 Gabapentin (Gabapentin) 600 Mg Tablet, 600 MG PO TID PRN for PAIN-MODERATE (5-7) Prescribed by: OSCAR BURNS on 05/30/21 0728 Hydrocodone Bit/Acetaminophen (HYDROcodone/APAP 10/325 TABLET) 1 Each Tablet, 1 TAB PO Q6H PRN for PAIN-SEVERE (8-10) Prescribed by: CEDRICK SALVADOR on 08/24/19 1316 Lidocaine (Lidocaine 5% Patch) 1 Each Adh..patch, 1 EACH TP Q12H PRN for Neuropathic pain Prescribed by: SRUTHI SCHUMACHER on 01/10/21 182 Lisinopril (Prinivil) 10 Mg Tablet, 10 MG PO DAILY, (Reported) Entered as Reported by: MATTEO SERRANO on 08/14/12 2145 Lisinopril (Lisinopril) 20 Mg Tablet, 20 MG PO DAILY@0900 Prescribed by: CEDRICK SALVADOR on 08/24/19 1315 Lisinopril (Lisinopril) 10 Mg Tablet, 10 MG PO DAILY Prescribed by: OSCAR BURNS on 05/30/21 0728 Loperamide HCl (Loperamide) 2 Mg Capsule, 4 MG PO NEEDED PRN for DIARRHEA Prescribed by: CEDRICK SALVADOR on 08/24/19 1315 Meloxicam (Meloxicam) 15 Mg Tablet, 15 MG PO DAILY, (Reported) Entered as Reported by: DESMOND WATTS on 08/17/19 1126 Metformin HCl (Metformin HCl ER) 500 Mg Tab.er.24h, 500 MG PO DAILY, (Reported) Entered as Reported by: DESMOND WATTS on 08/17/19 1126 Methocarbamol (Methocarbamol) 750 Mg Tablet, 750 MG PO Q8H PRN for MUSCLE SPASMS, (Reported) Entered as Reported by: DESMOND WATTS on 08/17/19 1136 Methocarbamol (Robaxin-750) 750 Mg Tablet, 750 MG PO Q4H PRN for PAIN-MODERATE (5-7) Prescribed by: PHILIP GILMORE on 01/09/20 1429 Methocarbamol (Methocarbamol) 750 Mg Tablet, 750 MG PO Q6-8HR Prescribed by: OSCAR BURNS on 05/30/21 0728 Metoprolol Tartrate (Metoprolol Tartrate) 50 Mg Tablet, 50 MG PO BID Prescribed by: CEDRICK SALVADOR on 08/24/19 1315 Miconazole Nitrate (Lotrimin AF) 90 Gm Powder, 0 GM TOP BID Prescribed by: CEDRICK SALVADOR on 08/24/19 1315 Naproxen (Naprosyn) 500 Mg Tablet, 500 MG PO BID Prescribed by: PHILIP GILMROE on 01/09/20 1429 Naproxen (Naprosyn) 500 Mg Tablet, 500 MG PO BID Prescribed by: PHILIP GILMORE on 06/04/20 1520 Omeprazole (Omeprazole) 20 Mg Capsule.dr, 20 MG PO DAILY, (Reported) Entered as Reported by: DESMOND WATTS on 08/17/19 1136 Ondansetron (Ondansetron Odt) 4 Mg Tab.rapdis, 4 MG PO Q4H PRN for NAUSEA/VOMITING-1ST LINE, (Reported) Entered as Reported by: DESMOND WATTS on 08/17/19 1136 Oxybutynin Chloride (Oxybutynin Chloride) 5 Mg Tablet, 5 MG PO BID, (Reported) Entered as Reported by: DESMOND WATTS on 08/17/19 1126 Prednisone (Prednisone) 20 Mg Tab, 40 MG PO DAILY Prescribed by: ANDRE LORD on 08/01/172053 Pregabalin (Lyrica) 75 Mg Capsule, 75 MG PO BID, (Reported) Entered as Reported by: BERTHA MOSES on 06/13/16 163 Ranitidine HCl (Ranitidine HCl) 150 Mg Tablet, 150 MG PO BID, (Reported) Entered as Reported by: BERTHA MOSES on 06/13/16 163 Simvastatin (Simvastatin) 40 Mg Tablet, 40 MG PO DAILY, (Reported) Entered as Reported by: BERTHA MOSES on 06/13/16 1638 Simvastatin (Simvastatin) 40 Mg Tablet, 40 MG PO DAILY, (Reported) Entered as Reported by: DESMOND WATTS on 08/17/19 113 Simvastatin (Simvastatin) 40 Mg Tablet, 40 MG PO HS Prescribed by: OSCAR BURNS on 05/30/21 0728 Review of Systems Review of Systems Constitutional: no symptoms reported EENTM: no symptoms reported Respiratory: see HPI, short of breath Cardiovascular: no symptoms reported Gastrointestinal: see HPI, abdominal pain Genitourinary: no symptoms reported Musculoskeletal: see HPI, back pain Skin: no symptoms reported Psychiatric/Neurological: See HPI, Headache Hematologic/Lymphatic: No Symptoms Reported Immunological/Allergic: no symptoms reported Past Syrjvoj-Rysncn-Mutoab Hx Immunizations Up To Date Tetanus Booster (TDap): Unknown PED Vaccines UTD: Yes First/Initial COVID19 Vaccinat: N/A Seasonal Allergies Seasonal Allergies: No Past Medical History Surgery/Hospitalization HX: BACK SURGERY--LUMBAR AREA IN 2017, BY DR. SHARPE AT [address] EMPHYSEMA, COPD, ANXIETY Surgeries: Yes (BACK SURGERY 2017; FOOT SURGERY) Gallbladder, Hysterectomy, Orthopedic, Tonsillectomy, Tubal Ligation Respiratory: Yes (07/2019--PNEUMONIA WITH SEPTIC SHOCK AND INTUBATED. 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 Genitourinary: No Gastrointestinal: Yes (delayed emptying) Gastroesophageal Reflux, Gall Bladder Disease Musculoskeletal: Yes (foot surgery; BACK SURGERY) Degenerate Disk Disease, Chronic Back Pain Endocrine: Yes (MORBID OBESITY) Diabetes, Non-Insulin dep HEENT: No Cancer: No Psychosocial: Yes (RX DRUG ABUSE) Anxiety, Depression Integumentary: No Blood Disorders: No Family Medical History No Pertinent Family Hx Physical Exam Vital Signs Vital Signs - First Documented 07/01/21 18:00 Temp 36.5 Pulse 81 Resp 22 B/P (MAP) 143/103 (116) Pulse Ox 97 Capillary Refill : Height, Weight, BMI Height: 5'8.00" Weight: 220lbs. oz. 99.175643lc; 30.00 BMI Method:Stated General Appearance: No Apparent Distress, WD/WN, Obese, Other (DOES NOT APPEAR TO BE IN ANY DISCOMFORT OR DISTRESS; UNKEMPT) HEENT: PERRL/EOMI, Other (EDENTULOUS WITH CONSTANT MOUTH MOVEMENTS. 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 Norm as Tested Skin: Normal Color, Warm/Dry Focused Exam Sepsis Stage: Ruled Out Reason for ruling out sepsis: DOES NOT MEET CRITERIA Possible Source: Pulmonary Time of Focused Exam: 19:30 Respiratory: Normal Breath Sounds, No Accessory Muscle Use, No Respiratory Distress Cardiovascular: Regular Rate, Rhythm, No Murmur Capillary Refill: Less Than 3 Seconds Skin: normal color, warm/dry Within 3hrs of presentation: Admin fluids, Blood cultures prior to ABX's, Focus exam, Lactate level Procedures/Interventions Date of ETT Placement: Aug 16, 2019 Time of ETT Placement: 2300 Progress/Results/Core Measures Suspected Sepsis SIRS Temperature: Pulse: Respiratory Rate: Laboratory Tests 07/01/21 18:12: White Blood Count 3.2L Blood Pressure / Mean: Laboratory Tests 07/01/21 18:12: Creatinine 0.77, Platelet Count 174, Total Bilirubin 0.3 Results/Orders Lab Results Laboratory Tests Test 07/01/21 18:00 07/01/21 18:12 07/01/21 19:48 Range/Units Influenza Type A (RT-PCR) Not Detected Not Detecte Influenza Type B (RT-PCR) Not Detected Not Detecte SARS-CoV-2 RNA (RT-PCR) Detected H Not Detecte White Blood Count 3.2 L 4.3-11.0 10^3/uL Red Blood Count 3.26 L 3.80-5.11 10^6/uL Hemoglobin 11.2 L 11.5-16.0 g/dL Hematocrit 33 L 35-52 % Mean Corpuscular Volume 100 H 80-99 fL Mean Corpuscular Hemoglobin 34 25-34 pg Mean Corpuscular Hemoglobin Concent 34 32-36 g/dL Red Cell Distribution Width 12.3 10.0-14.5 % Platelet Count 174 130-400 10^3/uL Mean Platelet Volume 8.9 L 9.0-12.2 fL Immature Granulocyte % (Auto) 0 % Neutrophils (%) (Auto) 67 42-75 % Lymphocytes (%) (Auto) 23 12-44 % Monocytes (%) (Auto) 10 0-12 % Eosinophils (%) (Auto) 0 0-10 % Basophils (%) (Auto) 0 0-10 % Neutrophils # (Auto) 2.1 1.8-7.8 10^3/uL Lymphocytes # (Auto) 0.7 L 1.0-4.0 10^3/uL Monocytes # (Auto) 0.3 0.0-1.0 10^3/uL Eosinophils # (Auto) 0.0 0.0-0.3 10^3/uL Basophils # (Auto) 0.0 0.0-0.1 10^3/uL Immature Granulocyte # (Auto) 0.0 0.0-0.1 10^3/uL Erythrocyte Sedimentation Rate 30 0-30 MM/HR Sodium Level 127 L 135-145 MMOL/L Potassium Level 3.4 L 3.6-5.0 MMOL/L Chloride Level 96 L 98-107 MMOL/L Carbon Dioxide Level 18 L 21-32 MMOL/L Anion Gap 13 5-14 MMOL/L Blood Urea Nitrogen 9 7-18 MG/DL Creatinine 0.77 0.60-1.30 MG/DL Estimat Glomerular Filtration Rate 77 BUN/Creatinine Ratio 12 Glucose Level 126 H 70-105 MG/DL Calcium Level 8.1 L 8.5-10.1 MG/DL Corrected Calcium 8.3 L 8.5-10.1 MG/DL Magnesium Level 1.4 L 1.6-2.4 MG/DL Total Bilirubin 0.3 0.1-1.0 MG/DL Aspartate Amino Transf (AST/SGOT) 25 5-34 U/L Alanine Aminotransferase (ALT/SGPT) 24 0-55 U/L Alkaline Phosphatase 84 40-136 U/L Total Creatine Kinase 50 29-168 U/L Creatine Kinase MB 0.5 <6.6 NG/ML Troponin I < 0.028 <0.028 NG/ML C-Reactive Protein High Sensitivity 0.95 H 0.00-0.50 MG/DL B-Type Natriuretic Peptide 52.5 <100.0 PG/ML Total Protein 6.1 L 6.4-8.2 GM/DL Albumin 3.7 3.2-4.5 GM/DL Urine Color YELLOW Urine Clarity CLEAR Urine pH 6.0 5-9 Urine Specific [place] <=1.005 1.016-1.022 Urine Protein NEGATIVE NEGATIVE Urine Glucose (UA) NEGATIVE NEGATIVE Urine Ketones NEGATIVE NEGATIVE Urine Nitrite NEGATIVE NEGATIVE Urine Bilirubin NEGATIVE NEGATIVE Urine Urobilinogen 0.2 < = 1.0 MG/DL Urine Leukocyte Esterase NEGATIVE NEGATIVE Urine RBC (Auto) TRACE-I H NEGATIVE Urine RBC NONE /HPF Urine WBC 0-2 /HPF Urine Squamous Epithelial Cells 0-2 /HPF Urine Renal Epithelial Cells NONE /HPF Urine Crystals NONE /LPF Urine Bacteria NEGATIVE /HPF Urine Casts NONE /LPF Urine Mucus NEGATIVE /LPF Urine Culture Indicated NO My Orders Orders - SRUTHI SCHUMACHER DO Covid 19 Inhouse Test (07/01/21 17:58) Influenza A And B By Pcr (07/01/21 17:58) Isolation Central Supply Req (07/01/21 17:58) Ed Iv/Invasive Line Start (07/01/21 18:08) Monitor-Rhythm Ecg Trace Only (07/01/21 18:08) Bnp Roberta (07/01/21 18:08) Cbc With Automated Diff (07/01/21 18:08) Comprehensive Metabolic Panel (07/01/21 18:08) Creatine Kinase (07/01/21 18:08) Creatine Kinase Mb (07/01/21 18:08) Hs C Reactive Protein (07/01/21 18:08) Magnesium (07/01/21 18:08) Ua Culture If Indicated (07/01/21 18:08) Erythrocyte Sedimentation Rate (07/01/21 18:08) Troponin I Roberta (07/01/21 18:08) Ed Iv/Invasive Line Start (07/01/21 18:08) Lactated Ringers (Lr 1000 Ml Iv Solution (07/01/21 18:15) Chest 1 View, Ap/Pa Only (07/01/21 18:15) Ed Iv/Invasive Line Start (07/01/21 19:02) Lactated Ringers (Lr 1000 Ml Iv Solution (07/01/21 19:15) Ketorolac Injection (Toradol Injection) (07/01/21 19:45) Medications Given in ED Current Medications Medications Dose Ordered Sig/Raquel Route Start Time Stop Time Status Last Admin Dose Admin Ketorolac Tromethamine 30 mg ONCE ONCE IVP 07/01/21 19:45 07/01/21 19:46 DC 07/01/21 19:53 30 MG Lactated Ringer's 1,000 ml @ 0 mls/hr Q0M ONCE IV 07/01/21 18:15 07/01/21 18:16 DC 07/01/21 18:27 0 MLS/HR Lactated Ringer's 1,000 ml @ 0 mls/hr Q0M ONCE IV 07/01/21 19:15 07/01/21 19:16 DC 07/01/21 19:30 0 MLS/HR Vital Signs/I&O 07/01/21 07/01/21 18:00 20:58 Temp 36.5 36.9 Pulse 81 77 Resp 22 25 B/P (MAP) 143/103 (116) 127/70 Pulse Ox 97 96 Capillary Refill : Progress Note : Progress Note PPE WORN AT ALL TIMES GIVEN IV FLUIDS AND TORADOL FOR HEADACHE AND BODY ACHES NO PNEUMONIA OR OTHER SIGNS OF INFECTION-NO ANTIBIOTIC REQUIRED. NO HYPOXIA NO COUGH NO DYSPNEA NO FEVER NO HYPOTENSION OR TACHYCARDIA UNEVENTFUL ER STAY MONOCLONAL ANTIBODY INFUSION IS NOT CURRENTLY AVAILABLE Diagnostic Imaging Comments CXR--PER RADIOLOGIST REPORT AT 1854 FINDINGS: Single view the chest demonstrates clear lungs bilaterally. The heart is normal. There is no pneumothorax. Osseous structures are normal. IMPRESSION: Negative chest Reviewed: Reviewed by Me Departure Impression Primary Impression: COVID-19 virus infection Additional Impressions: Electrolyte imbalance Dehydration COPD (chronic obstructive pulmonary disease) Disposition: HOME, SELF-CARE Condition: Stable Departure-Patient Inst. Decision time for Depature: 20:15 Referrals: NO,LOCAL PHYSICIAN (PCP) Primary Care Physician [facility] Patient Instructions: COVID-19 ED, Dehydration, Adult (DC), Preventing the Spread of an Infectious Disease Add. Discharge Instructions: LOTS OF CLEAR LIQUIDS, ESPECIALLY WATER AND GATORADE TYLENOL AND MOTRIN NEEDED FOR PAIN OR FEVER OVER THE COUNTER MUCINEX DM FOR COUGH AND CONGESTION QUARANTINE FOR 5 DAYS--THEN WEAR MASK AT ALL TIMES FOR A ADDITIONAL 5 DAYS IF YOU LEAVE YOUR HOME AFTER THAT. [facility], RETURN TO ER IF SYMPTOMS WORSEN SRUTHI SCHUMACHER DO Jul 01, 2021 18:14
[2021-07-01] MEDS ORDERED: LACTATED RINGERS 1,000 ML IV ONE ×2 (18:15→19:15)
[2021-07-01 18:22] LABS: BASOPHILS % (AUTO) 0 % (0-10); EOSINOPHILS % (AUTO) 0 % (0-10); HEMATOCRIT 33 % (35-52); HEMOGLOBIN 11.2 g/dL (11.5-16.0); LYMPHOCYTES # (AUTO) 0.7 10^3/uL (1.0-4.0); LYMPHOCYTES % (AUTO) 23 % (12-44); MEAN CORPUSCULAR HEMOGLOBIN 34 pg (25-34); MEAN CORPUSCULAR HGB CONC 34 g/dL (32-36); MEAN CORPUSCULAR VOLUME 100 fL (80-99); MEAN PLATELET VOLUME 8.9 fL (9.0-12.2); MONOCYTES # (AUTO) 0.3 10^3/uL (0.0-1.0); MONOCYTES % (AUTO) 10 % (0-12); NEUTROPHILS # (AUTO) 2.1 10^3/uL (1.8-7.8); NEUTROPHILS % (AUTO) 67 % (42-75); PLATELET COUNT 174 10^3/uL (130-400); WHITE BLOOD COUNT 3.2 10^3/uL (4.3-11.0)
[2021-07-01 18:45] LABS: ALBUMIN 3.7 GM/DL (3.2-4.5); CHLORIDE 96 MMOL/L (98-107); ERYTHROCYTE SEDIMENTATION RATE 30 MM/HR (0-30); POTASSIUM 3.4 MMOL/L (3.6-5.0); SODIUM 127 MMOL/L (135-145)
[2021-07-01 18:47] LABS: CALCIUM 8.1 MG/DL (8.5-10.1)
[2021-07-01 18:48] LABS: GLUCOSE 126 MG/DL (70-105); TOTAL PROTEIN 6.1 GM/DL (6.4-8.2)
[2021-07-01 18:49] LABS: BILIRUBIN,TOTAL 0.3 MG/DL (0.1-1.0); CARBON DIOXIDE 18 MMOL/L (21-32)
[2021-07-01 18:51] LABS: ALKALINE PHOSPHATASE 84 U/L (40-136); CREATININE SERUM 0.77 MG/DL (0.60-1.30); GFR ESTIMATED 77
--- NOTE | 2021-07-01 18:52 | Diagnostic Imaging Report ---
Indication: Body aches. Shortness of breath. Comparison 04/15/2020. FINDINGS: Single view the chest demonstrates clear lungs bilaterally. The heart is normal. There is no pneumothorax. Osseous structures are normal. IMPRESSION: Negative chest Dictated by: Dictated on workstation # [id number]
[2021-07-01 18:53] LABS: BUN/CREATININE RATIO 12
[2021-07-01 18:54] LABS: ALANINE AMINOTRANSFERASE 24 U/L (0-55); MAGNESIUM 1.4 MG/DL (1.6-2.4)
[2021-07-01 18:55] LABS: CREATINE KINASE 50 U/L (29-168)
[2021-07-01 19:02] LABS: CREATINE KINASE MB 0.5 NG/ML (<6.6)
[2021-07-01] MEDS ORDERED: KETOROLAC 30 MG/ML VIAL IVP ONE (19:45)
[2021-07-01 19:59] LABS: BILIRUBIN,URINE NEGATIVE (NEGATIVE); CLARITY,URINE CLEAR; COLOR,URINE YELLOW; GLUCOSE, URINE (UA) NEGATIVE (NEGATIVE); KETONES,URINE NEGATIVE (NEGATIVE); LEUKOCYTE ESTERASE ,URINE NEGATIVE (NEGATIVE); NITRITE,URINE NEGATIVE (NEGATIVE); PROTEIN,URINE NEGATIVE (NEGATIVE)
[2021-07-01 20:14] LABS: BACTERIA,URINE NEGATIVE /HPF; SQUAMOUS EPITHELIAL CELL,UR 0-2 /HPF; WBC,URINE 0-2 /HPF
[2021-07-01 20:58] VITALS: BP 127/70
== END 2021-07-01 20:58 | disposition home or self-care (01) ==
LOC: EDUNIT# 17:21 → ER 17:22
DX: U07.1 COVID-19 (principal); E87.8 Other disorders of electrolyte and fluid balance, not elsewhere classified; E86.0 Dehydration; J44.9 Chronic obstructive pulmonary disease, unspecified; I10 Essential (primary) hypertension; E11.9 Type 2 diabetes mellitus without complications; E78.00 Pure hypercholesterolemia, unspecified; K21.9 Gastro-esophageal reflux disease without esophagitis; G89.29 Other chronic pain; M54.9 Dorsalgia, unspecified; F41.9 Anxiety disorder, unspecified; F32.9 Major depressive disorder, single episode, unspecified; E66.01 Morbid (severe) obesity due to excess calories; Z68.30 Body mass index [BMI] 30.0-30.9, adult; Z79.84 Long term (current) use of oral hypoglycemic drugs; Z79.891 Long term (current) use of opiate analgesic; Z79.899 Other long term (current) drug therapy; Z79.82 Long term (current) use of aspirin
CPT/HCPCS: 36415; 71045; 80053; 81000; 82550; 82553; 83735; 83880; 84484; 85025; 85652; 86141; 87636; 93041

== ENCOUNTER 2021-07-07 20:29 | Emergency (ER) | payer MEDICARE, MEDICAID ==
[~2021-07-07] VITALS: Ht 172 cm; Wt 100.0 kg
--- NOTE | 2021-07-07 21:11 | ED GU-Female ---
General Chief Complaint: - Reproductive Stated Complaint: COVID POSITIVE, SOB Nursing Triage Note: patient states low abdominal pain for several days that has become progressively worse. She advised that she was dx. with covid 7-8 days ago and has continued to be short of breath and is unable to lay flat. Source: patient Exam Limitations: no limitations (PHILIP GILMORE APRN) History of Present Illness Date Seen by Provider: Jul 07, 2021 Time Seen by Provider: 21:09 Initial Comments To ER with reports of lower abdominal pain 3 that started days ago. No vomiting. She tested positive for COVID here on 07/01/2021. She has underlying COPD. Timing/Duration: constant Severity/Quality: moderate Location: suprapubic Radiation: none Activities at Onset: none Prior Genitourinary Problems: none Associated Symptoms: denies symptoms (PHILIP GILMORE APRN) Allergies and Home Medications Allergies Coded Allergies: Influenza Virus Vaccines (Verified Allergy, Unknown, 08/26/19) tramadol (Unverified Allergy, Unknown, 11/22/16) Uncoded Allergies: PNEUMONIA SHOT (Allergy, Unknown, 11/22/16) Patient Home Medication List Home Medication List Reviewed: Yes (PHILIP GILMORE APRN) Albuterol Sulfate (Proair Hfa) 8.5 Gm Hfa.aer.ad, 8.5 GM IH Q4H Prescribed by: PHILIP GILMORE on 06/23/15 1552 Albuterol Sulfate (Proventil Hfa) 6.7 Gm Hfa.aer.ad, 2 PUFF IH Q4H PRN for SHORTNESS OF BREATH Prescribed by: ANDRE LORD on 08/01/172053 Albuterol Sulfate (Ventolin Hfa) 18 Gm Hfa.aer.ad, 2 PUFF PO Q4H PRN for SHORTNESS OF BREATH, (Reported) Entered as Reported by: DESMOND WATTS on 08/17/19 1126 Alprazolam (Alprazolam) 0.5 Mg Tablet, 0.5 MG PO DAILY, (Reported) Entered as Reported by: BERTHA MOSES on 06/13/16 1638 Aspirin (Aspirin EC) 81 Mg Tablet.dr, 81 MG PO DAILY, (Reported) Entered as Reported by: DESMOND WATTS on 08/17/19 1126 Benzonatate (Benzonatate) 200 Mg Capsule, 200 MG PO Q8H PRN for COUGH Prescribed by: ANDRE LORD on 08/01/172053 Budesonide/Formoterol Fumarate (Symbicort 160-4.5 Mcg Inhaler) 10.2 Gm Hfa.aer.ad, 2 PUFF IH BID, (Reported) Entered as Reported by: DESMOND WATTS on 08/17/19 1136 Bupropion HCl (Bupropion HCl Sr) 150 Mg Tablet.er, 150 MG PO BID, (Reported) Entered as Reported by: BERTHA MOSES on 06/13/16 1638 Diazepam (Diazepam) 10 Mg Tablet, 5-10 MG PO HS, (Reported) Entered as Reported by: DESMOND WATTS on 08/17/19 1126 Diclofenac Sodium (Diclofenac Sodium) 75 Mg Tablet.dr, 75 MG PO BID, (Reported) Entered as Reported by: BERTHA MOSES on 06/13/16 1638 Docusate Sodium (Stool Softener) 100 Mg Capsule, 100 MG PO DAILY PRN PRN for CONSTIPATION-1ST LINE Prescribed by: CEDRICK SALVADOR on 08/24/19 1315 Escitalopram Oxalate (Escitalopram Oxalate) 20 Mg Tablet, 20 MG PO DAILY, (Reported) Entered as Reported by: DESMOND WATTS on 08/17/19 1126 Fluoxetine Hcl (Prozac) 20 Mg Capsule, 1 EACH PO DAILY, (Reported) Entered as Reported by: MATTEO SERRANO on 08/14/12 2145 Furosemide (Lasix) 40 Mg Tablet, 40 MG PO DAILY Prescribed by: CEDRICK SALVADOR on 08/24/19 1315 Gabapentin (Gabapentin) 600 Mg Tablet, 600 MG PO Q8H PRN for NERVE PAIN, (Reported) Entered as Reported by: DESMOND WATTS on 08/17/19 1136 Gabapentin (Gabapentin) 600 Mg Tablet, 600 MG PO TID PRN for PAIN-MODERATE (5-7) Prescribed by: OSCAR BURNS on 05/30/21 0728 Hydrocodone Bit/Acetaminophen (HYDROcodone/APAP 10/325 TABLET) 1 Each Tablet, 1 TAB PO Q6H PRN for PAIN-SEVERE (8-10) Prescribed by: CEDRICK SALVADOR on 08/24/19 1316 Lidocaine (Lidocaine 5% Patch) 1 Each Adh..patch, 1 EACH TP Q12H PRN for Neuropa thic pain Prescribed by: SRUTHI SCHUMACHER on 01/10/21 1821 Lisinopril (Prinivil) 10 Mg Tablet, 10 MG PO DAILY, (Reported) Entered as Reported by: MATTEO SERRANO on 08/14/12 2145 Lisinopril (Lisinopril) 20 Mg Tablet, 20 MG PO DAILY@0900 Prescribed by: CEDRICK SALVADOR on 08/24/19 1315 Lisinopril (Lisinopril) 10 Mg Tablet, 10 MG PO DAILY Prescribed by: OSCAR BURNS on 05/30/21 0728 Loperamide HCl (Loperamide) 2 Mg Capsule, 4 MG PO NEEDED PRN for DIARRHEA Prescribed by: CEDRICK SALVADOR on 08/24/19 1315 Meloxicam (Meloxicam) 15 Mg Tablet, 15 MG PO DAILY, (Reported) Entered as Reported by: DESMOND WATTS on 08/17/19 1126 Metformin HCl (Metformin HCl ER) 500 Mg Tab.er.24h, 500 MG PO DAILY, (Reported) Entered as Reported by: DESMOND WATTS on 08/17/19 1126 Methocarbamol (Methocarbamol) 750 Mg Tablet, 750 MG PO Q8H PRN for MUSCLE SPASMS, (Reported) Entered as Reported by: DESMOND WATTS on 08/17/19 1136 Methocarbamol (Robaxin-750) 750 Mg Tablet, 750 MG PO Q4H PRN for PAIN-MODERATE (5-7) Prescribed by: PHILIP GILMORE on 01/09/20 1429 Methocarbamol (Methocarbamol) 750 Mg Tablet, 750 MG PO Q6-8HR Prescribed by: OSCAR BURNS on 05/30/21 0728 Metoprolol Tartrate (Metoprolol Tartrate) 50 Mg Tablet, 50 MG PO BID Prescribed by: CEDRICK SALVADOR on 08/24/19 1315 Miconazole Nitrate (Lotrimin AF) 90 Gm Powder, 0 GM TOP BID Prescribed by: CEDRICK SALVADOR on 08/24/19 1315 Naproxen (Naprosyn) 500 Mg Tablet, 500 MG PO BID Prescribed by: PHILIP GILMORE on 01/09/20 1429 Naproxen (Naprosyn) 500 Mg Tablet, 500 MG PO BID Prescribed by: PHILIP GILMORE on 06/04/20 1520 Omeprazole (Omeprazole) 20 Mg Capsule.dr, 20 MG PO DAILY, (Reported) Entered as Reported by: DESMOND WATTS on 08/17/19 1136 Ondansetron (Ondansetron Odt) 4 Mg Tab.rapdis, 4 MG PO Q4H PRN for NAUSEA/VOMITING-1ST LINE, (Reported) Entered as Reported by: DESMOND WATTS on 08/17/19 1136 Oxybutynin Chloride (Oxybutynin Chloride) 5 Mg Tablet, 5 MG PO BID, (Reported) Entered as Reported by: DESMOND WATTS on 08/17/19 1126 Prednisone (Prednisone) 20 Mg Tab, 40 MG PO DAILY Prescribed by: ANDRE LORD on 08/01/172053 Pregabalin (Lyrica) 75 Mg Capsule, 75 MG PO BID, (Reported) Entered as Reported by: BERTHA MOSES on 06/13/16 1638 Ranitidine HCl (Ranitidine HCl) 150 Mg Tablet, 150 MG PO BID, (Reported) Entered as Reported by: BERTHA MOSES on 06/13/16 1638 Simvastatin (Simvastatin) 40 Mg Tablet, 40 MG PO DAILY, (Reported) Entered as Reported by: BERTHA MOSES on 06/13/16 1638 Simvastatin (Simvastatin) 40 Mg Tablet, 40 MG PO DAILY, (Reported) Entered as Reported by: DESMOND WATTS on 08/17/19 1136 Simvastatin (Simvastatin) 40 Mg Tablet, 40 MG PO HS Prescribed by: OSCAR BURNS on 05/30/21 0728 Review of Systems Review of Systems Constitutional: see HPI EENTM: see HPI Respiratory: see HPI, cough, short of breath Cardiovascular: no symptoms reported Genitourinary: no symptoms reported Musculoskeletal: no symptoms reported Skin: no symptoms reported Psychiatric/Neurological: No Symptoms Reported (PHILIP GILMORE APRN) Past Jfdjmgp-Nkcpzk-Fepoio Hx Patient Social History Tobacco Use?: Yes Tobacco type used: Cigarettes Smoking Status: Current Everyday Smoker Substance use?: No Alcohol Use?: No (PHILIP GILMORE APRN) Immunizations Up To Date Tetanus Booster (TDap): Unknown PED Vaccines UTD: Yes First/Initial COVID19 Vaccinat: N/A Second COVID19 Vaccination Mariano: N/A Third COVID19 Vaccination Date: N/A (PHILIP GILMORE APRN) Seasonal Allergies Seasonal Allergies: No (PHILIP GILMORE APRN) Past Medical History Surgery/Hospitalization HX: COPD, bronchitis, diabetes Surgeries: Yes (BACK SURGERY 2017; FOOT SURGERY) Gallbladder, Hysterectomy, Orthopedic, Tonsillectomy, Tubal Ligation Respiratory: Yes (07/2019--PNEUMONIA WITH SEPTIC SHOCK AND INTUBATED. 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 Headaches /Migraines [employer] History: Menopausal Genitourinary: No Gastrointestinal: Yes (delayed emptying) Gastroesophageal Reflux, Gall Bladder Disease Musculoskeletal: Yes (foot surgery; BACK SURGERY) Degenerate Disk Disease, Chronic Back Pain Endocrine: Yes (MORBID OBESITY) Diabetes, Non-Insulin dep HEENT: No Cancer: No Psychosocial: Yes (RX DRUG ABUSE) Anxiety, Depression Integumentary: No Blood Disorders: No (PHILIP GILMORE APRN) Family Medical History No Pertinent Family Hx (PHILIP GILMORE APRN) Physical Exam Vital Signs Vital Signs - First Documented 07/07/21 21:03 Temp 36.7 Pulse 93 Resp 20 B/P (MAP) 154/96 (115) Pulse Ox 93 O2 Delivery Room Air (WINSOME,SRUTHI K DO) Vital Signs Capillary Refill : (PHILIP GILMORE APRN) Height, Weight, BMI Height: 5'8.00" Weight: 220lbs. oz. 99.587066rq; 33.00 BMI Method:Stated General Appearance: WD/WN, no apparent distress, other (93% on room air no accessory muscle use no distress) HEENT: PERRL/EOMI, normal ENT inspection Neck: non-tender, full range of motion Respiratory: no respiratory distress, no accessory muscle use Gastrointestinal: normal bowel sounds, non tender Extremities: normal range of motion, non-tender Neurologic/Psychiatric: alert, normal mood/affect, oriented x 3 Skin: normal color, warm/dry (PHILIP GILMORE APRN) Procedures/Interventions Date of ETT Placement: Aug 16, 2019 Time of ETT Placement: 2300 (PHILIP GILMORE APRN) Progress/Results/Core Measures Suspected Sepsis SIRS Temperature: Pulse: 93 Respiratory Rate: 20 Laboratory Tests 07/07/21 21:30: White Blood Count 4.6 Blood Pressure 154 /96 Mean: 115 Laboratory Tests 07/07/21 21:30: Creatinine 0.79, Platelet Count 168, Total Bilirubin 0.2 (PHILIP GILMORE APRN) Results/Orders Lab Results Laboratory Tests Test 07/07/21 21:30 Range/Units White Blood Count 4.6 4.3-11.0 10^3/uL Red Blood Count 3.41 L 3.80-5.11 10^6/uL Hemoglobin 11.6 11.5-16.0 g/dL Hematocrit 34 L 35-52 % Mean Corpuscular Volume 100 H 80-99 fL Mean Corpuscular Hemoglobin 34 25-34 pg Mean Corpuscular Hemoglobin Concent 34 32-36 g/dL Red Cell Distribution Width 13.0 10.0-14.5 % Platelet Count 168 130-400 10^3/uL Mean Platelet Volume 9.3 9.0-12.2 fL Immature Granulocyte % (Auto) 0 % Neutrophils (%) (Auto) 61 42-75 % Lymphocytes (%) (Auto) 33 12-44 % Monocytes (%) (Auto) 5 0-12 % Eosinophils (%) (Auto) 0 0-10 % Basophils (%) (Auto) 0 0-10 % Neutrophils # (Auto) 2.8 1.8-7.8 10^3/uL Lymphocytes # (Auto) 1.5 1.0-4.0 10^3/uL Monocytes # (Auto) 0.3 0.0-1.0 10^3/uL Eosinophils # (Auto) 0.0 0.0-0.3 10^3/uL Basophils # (Auto) 0.0 0.0-0.1 10^3/uL Immature Granulocyte # (Auto) 0.0 0.0-0.1 10^3/uL Urine Color YELLOW Urine Clarity CLEAR Urine pH 6.5 5-9 Urine Specific [place] 1.010 L 1.016-1.022 Urine Protein NEGATIVE NEGATIVE Urine Glucose (UA) NEGATIVE NEGATIVE Urine Ketones NEGATIVE NEGATIVE Urine Nitrite NEGATIVE NEGATIVE Urine Bilirubin NEGATIVE NEGATIVE Urine Urobilinogen 0.2 < = 1.0 MG/DL Urine Leukocyte Esterase NEGATIVE NEGATIVE Urine RBC (Auto) NEGATIVE NEGATIVE Urine RBC NONE /HPF Urine WBC NONE /HPF Urine Squamous Epithelial Cells 2-5 /HPF Urine Crystals NONE /LPF Urine Bacteria TRACE /HPF Urine Casts NONE /LPF Urine Mucus NEGATIVE /LPF Urine Culture Indicated NO Sodium Level 136 135-145 MMOL/L Potassium Level 3.8 3.6-5.0 MMOL/L Chloride Level 106 98-107 MMOL/L Carbon Dioxide Level 19 L 21-32 MMOL/L Anion Gap 11 5-14 MMOL/L Blood Urea Nitrogen 6 L 7-18 MG/DL Creatinine 0.79 0.60-1.30 MG/DL Estimat Glomerular Filtration Rate 86 BUN/Creatinine Ratio 8 Glucose Level 84 70-105 MG/DL Calcium Level 8.1 L 8.5-10.1 MG/DL Corrected Calcium 8.3 L 8.5-10.1 MG/DL Total Bilirubin 0.2 0.1-1.0 MG/DL Aspartate Amino Transf (AST/SGOT) 18 5-34 U/L Alanine Aminotransferase (ALT/SGPT) 18 0-55 U/L Alkaline Phosphatase 83 40-136 U/L C-Reactive Protein High Sensitivity 0.41 0.00-0.50 MG/DL B-Type Natriuretic Peptide 21.7 <100.0 PG/ML Total Protein 6.1 L 6.4-8.2 GM/DL Albumin 3.8 3.2-4.5 GM/DL Procalcitonin 12.32 H <0.10 NG/ML (SRUTHI SCHUMACHER DO) Vital Signs/I&O 07/07/21 07/07/21 21:03 22:21 Temp 36.7 Pulse 93 87 Resp 20 20 B/P (MAP) 154/96 (115) 154/96 Pulse Ox 93 97 O2 Delivery Room Air Room Air (SRUTHI SCHUMACHER DO) Vital Signs/I&O Capillary Refill : (PHILIP GILMORE APRN) Blood Pressure Mean: 115 Diagnostic Imaging Diagonstic Imaging: Xray Plain Films/CT/US/NM/MRI: chest Comments NAME: ENRIQUE GARCIA [facility] REC#: [id number] PT STATUS: REG ER : 1960 PHYSICIAN: PHILIP GILMORE APRN ADMIT DATE: 07/07/21/ER Signed Date of Exam:07/07/21 CHEST 1 VIEW, AP/PA ONLY INDICATION: Covid positive. COMPARISON: 07/01/2021. EXAMINATION: Single view of the chest. FINDINGS: Clear lungs, bilaterally. The heart is normal. There is no pneumothorax but osseous structures are normal. IMPRESSION: Negative chest. Dictated by: Dictated on workstation # [id number] Dict: 07/07/212141 Trans: 07/07/212143 [facility] [id number] Interpreted by: SHAZIA GARCIA Electronically signed by: SHAZIA GARCIA 07/07/212143 (PHILIP GILMORE APRN) Departure Impression Primary Impression: COVID-19 virus infection Disposition: HOME, SELF-CARE Condition: Stable Departure-Patient Inst. Decision time for Depature: 22:05 (PHILIP GILMORE APRN) Referrals: NO,LOCAL PHYSICIAN (PCP) Primary Care Physician Patient Instructions: COVID-19 ED Add. Discharge Instructions: Return to ER for any concerns. Follow-up with your doctor next week. ATTENDING PHYSICIAN NOTE: I WAS PHYSICALLY PRESENT ER PHYSICIAN WHEN THIS PATIENT WAS IN ER, I WAS NOT INVOLVED IN ANY DECISION MAKING OR ANY CARE OF THIS PATIENT (SRUTHI SCHUMACHER DO) PHILIP GILMORE APRN Jul 07, 2021 21:11 SRUTHI SCHUMACHER DO Jul 08, 2021 02:28
[2021-07-07 21:42] LABS: BASOPHILS % (AUTO) 0 % (0-10); EOSINOPHILS % (AUTO) 0 % (0-10); HEMATOCRIT 34 % (35-52); HEMOGLOBIN 11.6 g/dL (11.5-16.0); LYMPHOCYTES # (AUTO) 1.5 10^3/uL (1.0-4.0); LYMPHOCYTES % (AUTO) 33 % (12-44); MEAN CORPUSCULAR HEMOGLOBIN 34 pg (25-34); MEAN CORPUSCULAR HGB CONC 34 g/dL (32-36); MEAN CORPUSCULAR VOLUME 100 fL (80-99); MEAN PLATELET VOLUME 9.3 fL (9.0-12.2); MONOCYTES # (AUTO) 0.3 10^3/uL (0.0-1.0); MONOCYTES % (AUTO) 5 % (0-12); NEUTROPHILS # (AUTO) 2.8 10^3/uL (1.8-7.8); NEUTROPHILS % (AUTO) 61 % (42-75); PLATELET COUNT 168 10^3/uL (130-400); WHITE BLOOD COUNT 4.6 10^3/uL (4.3-11.0)
[2021-07-07 21:44] LABS: BILIRUBIN,URINE NEGATIVE (NEGATIVE); CLARITY,URINE CLEAR; COLOR,URINE YELLOW; GLUCOSE, URINE (UA) NEGATIVE (NEGATIVE); KETONES,URINE NEGATIVE (NEGATIVE); LEUKOCYTE ESTERASE ,URINE NEGATIVE (NEGATIVE); NITRITE,URINE NEGATIVE (NEGATIVE); PH,URINE 6.5 (5-9); PROTEIN,URINE NEGATIVE (NEGATIVE)
--- NOTE | 2021-07-07 21:44 | Diagnostic Imaging Report ---
INDICATION: Covid positive. COMPARISON: 07/01/2021. EXAMINATION: Single view of the chest. FINDINGS: Clear lungs, bilaterally. The heart is normal. There is no pneumothorax but osseous structures are normal. IMPRESSION: Negative chest. Dictated by: Dictated on workstation # [id number]
[2021-07-07 21:50] LABS: BACTERIA,URINE TRACE /HPF
[2021-07-07 21:52] LABS: ALBUMIN 3.8 GM/DL (3.2-4.5); POTASSIUM 3.8 MMOL/L (3.6-5.0)
[2021-07-07 21:53] LABS: CALCIUM 8.1 MG/DL (8.5-10.1)
[2021-07-07 21:54] LABS: TOTAL PROTEIN 6.1 GM/DL (6.4-8.2)
[2021-07-07 21:56] LABS: BILIRUBIN,TOTAL 0.2 MG/DL (0.1-1.0)
[2021-07-07 21:58] LABS: CREATININE SERUM 0.79 MG/DL (0.60-1.30)
[2021-07-07 22:21] VITALS: BP 154/96
== END 2021-07-07 22:21 | disposition home or self-care (01) ==
LOC: EDUNIT# 20:29 → ER 20:30
DX: U07.1 COVID-19 (principal); J44.9 Chronic obstructive pulmonary disease, unspecified; I10 Essential (primary) hypertension; E11.9 Type 2 diabetes mellitus without complications; E78.00 Pure hypercholesterolemia, unspecified; E66.01 Morbid (severe) obesity due to excess calories; K21.9 Gastro-esophageal reflux disease without esophagitis; F41.9 Anxiety disorder, unspecified; F32.9 Major depressive disorder, single episode, unspecified; G89.29 Other chronic pain; M54.9 Dorsalgia, unspecified; F17.210 Nicotine dependence, cigarettes, uncomplicated; Z68.33 Body mass index [BMI] 33.0-33.9, adult; Z79.84 Long term (current) use of oral hypoglycemic drugs; Z79.899 Other long term (current) drug therapy; Z79.891 Long term (current) use of opiate analgesic; Z79.82 Long term (current) use of aspirin
CPT/HCPCS: 36415; 71045; 80053; 81000; 83880; 84145; 85025; 86141

== ENCOUNTER 2021-08-28 18:31 | Emergency (ER) | payer MEDICARE, MEDICAID ==
[~2021-08-28] VITALS: Ht 172.7 cm; Wt 92.5 kg
[2021-08-28] MEDS ORDERED: KETOROLAC 30 MG/ML VIAL IVP ONE (19:30)
[2021-08-28] MEDS ORDERED: LACTATED RINGERS 1,000 ML IV SCH (19:30)
[2021-08-28] MEDS ORDERED: fentaNYL INJ 100 MCG/2 ML AMP IVP ONE (19:30)
--- NOTE | 2021-08-28 19:47 | ED Abdominal Pain ---
General Stated Complaint: ABD PAIN Source of Information: Patient Exam Limitations: No Limitations (PHILIP GILMORE APRN) History of Present Illness Date Seen by Provider: Aug 28, 2021 Time Seen by Provider: 19:30 Initial Comments To ER with lower midline abdominal pain for 3 days that got significantly worse today prompting her to be seen at [facility] where she was found to have some hematuria but otherwise normal urine and referred to the emergency room. No fever no chills no nausea no vomiting. She initially thought this may be constipation so she took some laxatives with resultant loose stools but no improvement in pain. No history of this. Timing/Duration: 2-3 Days Severity/Quality: Severe Location: Suprapubic Radiation: No Radiation Modifying Factors: Worsens With Movement Associated Symptoms: Denies Symptoms (PHILIP GILMORE APRN) Allergies and Home Medications Allergies Coded Allergies: Influenza Virus Vaccines (Verified Allergy, Unknown, 08/26/19) tramadol (Unverified Allergy, Unknown, 11/22/16) Uncoded Allergies: PNEUMONIA SHOT (Allergy, Unknown, 11/22/16) Patient Home Medication List Home Medication List Reviewed: Yes (PHILIP GILMORE APRN) Albuterol Sulfate (Proair Hfa) 8.5 Gm Hfa.aer.ad, 8.5 GM IH Q4H Prescribed by: PHILIP GILMORE on 06/23/15 1552 Albuterol Sulfate (Proventil Hfa) 6.7 Gm Hfa.aer.ad, 2 PUFF IH Q4H PRN for SHORTNESS OF BREATH Prescribed by: ANDRE LORD on 08/01/172053 Albuterol Sulfate (Ventolin Hfa) 18 Gm Hfa.aer.ad, 2 PUFF PO Q4H PRN for SHORTNESS OF BREATH, (Reported) Entered as Reported by: DESMOND WATTS on 08/17/19 1126 Alprazolam (Alprazolam) 0.5 Mg Tablet, 0.5 MG PO DAILY, (Reported) Entered as Reported by: BERTHA MOSES on 06/13/16 1638 Amoxicillin/Potassium Clav (Amox Tr-K Clv 875-125 mg Tab) 1 Each Tablet, 1 EACH PO BID Prescribed by: PHILIP GILMORE on 08/28/21 2106 Aspirin (Aspirin EC) 81 Mg Tablet.dr, 81 MG PO DAILY, (Reported) Entered as Reported by: DESMOND WATTS on 08/17/19 112 Benzonatate (Benzonatate) 200 Mg Capsule, 200 MG PO Q8H PRN for COUGH Prescribed by: ANDRE LORD on 08/01/172053 Budesonide/Formoterol Fumarate (Symbicort 160-4.5 Mcg Inhaler) 10.2 Gm Hfa.aer.ad, 2 PUFF IH BID, (Reported) Entered as Reported by: DESMOND WATTS on 08/17/19 113 Bupropion HCl (Bupropion HCl Sr) 150 Mg Tablet.er, 150 MG PO BID, (Reported) Entered as Reported by: BERTHA MOSES on 06/13/16 1638 Diazepam (Diazepam) 10 Mg Tablet, 5-10 MG PO HS, (Reported) Entered as Reported by: DESMOND WATTS on 08/17/19 112 Diclofenac Sodium (Diclofenac Sodium) 75 Mg Tablet.dr, 75 MG PO BID, (Reported) Entered as Reported by: BERTHA MOSES on 06/13/16 1638 Docusate Sodium (Stool Softener) 100 Mg Capsule, 100 MG PO DAILY PRN PRN for CONSTIPATION-1ST LINE Prescribed by: CEDRICK SALVADOR on 08/24/19 1315 Escitalopram Oxalate (Escitalopram Oxalate) 20 Mg Tablet, 20 MG PO DAILY, (Reported) Entered as Reported by: DESMOND WATTS on 08/17/19 112 Fluoxetine Hcl (Prozac) 20 Mg Capsule, 1 EACH PO DAILY, (Reported) Entered as Reported by: MATTEO SERRANO on 08/14/122144 Furosemide (Lasix) 40 Mg Tablet, 40 MG PO DAILY Prescribed by: CEDRICK SALVADOR on 08/24/19 1315 Gabapentin (Gabapentin) 600 Mg Tablet, 600 MG PO Q8H PRN for NERVE PAIN, (Reported) Entered as Reported by: DESMOND WATTS on 08/17/19 113 Gabapentin (Gabapentin) 600 Mg Tablet, 600 MG PO TID PRN for PAIN-MODERATE (5-7) Prescribed by: OSCRA BURNS on 05/30/21 0728 Hydrocodone Bit/Acetaminophen (HYDROcodone/APAP 10/325 TABLET) 1 Each Tablet, 1 TAB PO Q6H PRN for PAIN-SEVERE (8-10) Prescribed by: CEDRICK SALVADOR on 08/24/19 1316 Hydrocodone/Acetaminophen (Hydrocodone-Acetamin 5-325 mg) 1 Each Tablet, 1 TAB PO Q4H PRN for PAIN-MODERATE (5-7) Prescribed by: PHILIP GILMORE on 08/28/212106 Lidocaine (Lidocaine 5% Patch) 1 Each Adh..patch, 1 EACH TP Q12H PRN for Neuropathic pain Prescribed by: SRUTHI SCHUMACHER on 01/10/21 1821 Lisinopril (Prinivil) 10 Mg Tablet, 10 MG PO DAILY, (Reported) Entered as Reported by: MATTEO SERRANO on 08/14/12 2145 Lisinopril (Lisinopril) 20 Mg Tablet, 20 MG PO DAILY@0900 Prescribed by: CEDRICK SALVADOR on 08/24/19 131 Lisinopril (Lisinopril) 10 Mg Tablet, 10 MG PO DAILY Prescribed by: OSCAR BURNS on 05/30/21 0728 Loperamide HCl (Loperamide) 2 Mg Capsule, 4 MG PO NEEDED PRN for DIARRHEA Prescribed by: CEDRICK SALVADOR on 08/24/19 131 Meloxicam (Meloxicam) 15 Mg Tablet, 15 MG PO DAILY, (Reported) Entered as Reported by: DESMOND WATTS on 08/17/19 1126 Metformin HCl (Metformin HCl ER) 500 Mg Tab.er.24h, 500 MG PO DAILY, (Reported) Entered as Reported by: DESMOND WATTS on 08/17/19 1126 Methocarbamol (Methocarbamol) 750 Mg Tablet, 750 MG PO Q8H PRN for MUSCLE SPASMS, (Reported) Entered as Reported by: DESMOND WATTS on 08/17/19 1136 Methocarbamol (Robaxin-750) 750 Mg Tablet, 750 MG PO Q4H PRN for PAIN-MODERATE (5-7) Prescribed by: PHILIP GILMORE on 01/09/20 1429 Methocarbamol (Methocarbamol) 750 Mg Tablet, 750 MG PO Q6-8HR Prescribed by: OSCAR BURNS on 05/30/21 0728 Metoprolol Tartrate (Metoprolol Tartrate) 50 Mg Tablet, 50 MG PO BID Prescribed by: CEDRICK SALVADOR on 08/24/19 1315 Miconazole Nitrate (Lotrimin AF) 90 Gm Powder, 0 GM TOP BID Prescribed by: CEDRICK SALVADOR on 08/24/19 1315 Naproxen (Naprosyn) 500 Mg Tablet, 500 MG PO BID Prescribed by: PHILIP GILMORE on 01/09/20 1429 Naproxen (Naprosyn) 500 Mg Tablet, 500 MG PO BID Prescribed by: PHILIP GILMORE on 06/04/20 1520 Omeprazole (Omeprazole) 20 Mg Capsule.dr, 20 MG PO DAILY, (Reported) Entered as Reported by: DESMOND WATTS on 08/17/19 1136 Ondansetron (Ondansetron Odt) 4 Mg Tab.rapdis, 4 MG PO Q4H PRN for NAUSEA/VOMITING-1ST LINE, (Reported) Entered as Reported by: DESMOND WATTS on 08/17/19 1136 Ondansetron (Ondansetron Odt) 8 Mg Tab.rapdis, 8 MG PO Q6H PRN for NAUSEA/VOMITING Prescribed by: PHILIP GILMORE on 08/28/21 210 Oxybutynin Chloride (Oxybutynin Chloride) 5 Mg Tablet, 5 MG PO BID, (Reported) Entered as Reported by: DESMOND WATTS on 08/17/19 1126 Prednisone (Prednisone) 20 Mg Tab, 40 MG PO DAILY Prescribed by: ANDRE LORD on 08/01/172053 Pregabalin (Lyrica) 75 Mg Capsule, 75 MG PO BID, (Reported) Entered as Reported by: BERTHA MOSES on 06/13/16 1638 Ranitidine HCl (Ranitidine HCl) 150 Mg Tablet, 150 MG PO BID, (Reported) Entered as Reported by: BERTHA MOSES on 06/13/16 1638 Simvastatin (Simvastatin) 40 Mg Tablet, 40 MG PO DAILY, (Reported) Entered as Reported by: BERTHA MOSES on 06/13/16 1638 Simvastatin (Simvastatin) 40 Mg Tablet, 40 MG PO DAILY, (Reported) Entered as Reported by: DESMOND WATTS on 08/17/19 1136 Simvastatin (Simvastatin) 40 Mg Tablet, 40 MG PO HS Prescribed by: OSCAR BURNS on 05/30/21 0728 Review of Systems Review of Systems Constitutional: see HPI EENTM: No Symptoms Reported Respiratory: No Symptoms Reported Cardiovascular: No Symptoms Reported Gastrointestinal: See HPI, Abdominal Pain, Nausea, Vomiting Genitourinary: No Symptoms Reported Musculoskeletal: no symptoms reported Skin: no symptoms reported Psychiatric/Neurological: No Symptoms Reported Endocrine: No Symptoms Reported Hematologic/Lymphatic: No Symptoms Reported (PHILIP GILMORE APRN) Past Hdfdcod-Zbqzux-Fkgfdn Hx Immunizations Up To Date Tetanus Booster (TDap): Unknown PED Vaccines UTD: Yes First/Initial COVID19 Vaccinat: N/A Second COVID19 Vaccination Mariano: N/A Third COVID19 Vaccination Date: N/A (PHILIP GILMORE APRN) Seasonal Allergies Seasonal Allergies: No (PHILIP GILMORE APRN) Past Medical History Surgery/Hospitalization HX: COPD, bronchitis, diabetes Surgeries: Yes (BACK SURGERY 2016; FOOT SURGERY) Gallbladder, Hysterectomy, Orthopedic, Tonsillectomy, Tubal Ligation Respiratory: Yes (07/2019--PNEUMONIA WITH SEPTIC SHOCK AND INTUBATED. 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 Genitourinary: No Gastrointestinal: Yes (delayed emptying) Gastroesophageal Reflux, Gall Bladder Disease Musculoskeletal: Yes (foot surgery; BACK SURGERY) Degenerate Disk Disease, Chronic Back Pain Endocrine: Yes (MORBID OBESITY) Diabetes, Non-Insulin dep HEENT: No Cancer: No Psychosocial: Yes (RX DRUG ABUSE) Anxiety, Depression Integumentary: No Blood Disorders: No (PHILIP GILMORE APRN) Family Medical History No Pertinent Family Hx (PHILIP GILMORE APRN) Physical Exam Vital Signs Vital Signs - First Documented 08/28/21 19:20 Temp 36.3 Pulse 90 Resp 20 B/P (MAP) 158/109 (125) Pulse Ox 99 O2 Delivery Room Air (WINSOME,SRUTHI K DO) Vital Signs Capillary Refill : (PIHLIP GILMORE APRN) Height/Weight/BMI Height: 5'8.00" Weight: 220lbs. oz. 99.351648ws; 33.00 BMI Method:Stated General Appearance: WD/WN, no apparent distress HEENT: PERRL/EOMI, normal ENT inspection Neck: non-tender, full range of motion Respiratory: no respiratory distress, no accessory muscle use Cardiovascular: regular rate, rhythm, no murmur Gastrointestinal: normal bowel sounds, soft, tenderness Extremities: normal range of motion, non-tender Neurologic/Psychiatric: alert, normal mood/affect, oriented x 3 Skin: normal color, warm/dry (PHILIP GILMORE APRN) Procedures/Interventions Date of ETT Placement: Aug 16, 2019 Time of ETT Placement: 0 (PHILIP GILMORE APRN) Progress/Results/Core Measures Results/Orders Lab Results Laboratory Tests Test 08/28/21 19:37 08/28/21 20:17 Range/Units White Blood Count 7.8 4.3-11.0 10^3/uL Red Blood Count 3.45 L 3.80-5.11 10^6/uL Hemoglobin 11.8 11.5-16.0 g/dL Hematocrit 34 L 35-52 % Mean Corpuscular Volume 98 80-99 fL Mean Corpuscular Hemoglobin 34 25-34 pg Mean Corpuscular Hemoglobin Concent 35 32-36 g/dL Red Cell Distribution Width 12.0 10.0-14.5 % Platelet Count 295 130-400 10^3/uL Mean Platelet Volume 9.1 9.0-12.2 fL Immature Granulocyte % (Auto) 0 % Neutrophils (%) (Auto) 69 42-75 % Lymphocytes (%) (Auto) 27 12-44 % Monocytes (%) (Auto) 4 0-12 % Eosinophils (%) (Auto) 0 0-10 % Basophils (%) (Auto) 0 0-10 % Neutrophils # (Auto) 5.4 1.8-7.8 10^3/uL Lymphocytes # (Auto) 2.1 1.0-4.0 10^3/uL Monocytes # (Auto) 0.3 0.0-1.0 10^3/uL Eosinophils # (Auto) 0.0 0.0-0.3 10^3/uL Basophils # (Auto) 0.0 0.0-0.1 10^3/uL Immature Granulocyte # (Auto) 0.0 0.0-0.1 10^3/uL Sodium Level 125 *L 135-145 MMOL/L Potassium Level 4.4 3.6-5.0 MMOL/L Chloride Level 92 L 98-107 MMOL/L Carbon Dioxide Level 22 21-32 MMOL/L Anion Gap 11 5-14 MMOL/L Blood Urea Nitrogen 6 L 7-18 MG/DL Creatinine 0.72 0.60-1.30 MG/DL Estimat Glomerular Filtration Rate 96 BUN/Creatinine Ratio 8 Glucose Level 92 70-105 MG/DL Calcium Level 9.2 8.5-10.1 MG/DL Corrected Calcium 9.0 8.5-10.1 MG/DL Total Bilirubin 0.5 0.1-1.0 MG/DL Aspartate Amino Transf (AST/SGOT) 24 5-34 U/L Alanine Aminotransferase (ALT/SGPT) 18 0-55 U/L Alkaline Phosphatase 83 40-136 U/L Total Protein 7.0 6.4-8.2 GM/DL Albumin 4.2 3.2-4.5 GM/DL Urine Color YELLOW Urine Clarity CLEAR Urine pH 6.0 5-9 Urine Specific [place] 1.005 L 1.016-1.022 Urine Protein NEGATIVE NEGATIVE Urine Glucose (UA) NEGATIVE NEGATIVE Urine Ketones NEGATIVE NEGATIVE Urine Nitrite NEGATIVE NEGATIVE Urine Bilirubin NEGATIVE NEGATIVE Urine Urobilinogen 0.2 < = 1.0 MG/DL Urine Leukocyte Esterase NEGATIVE NEGATIVE Urine RBC (Auto) TRACE H NEGATIVE Urine RBC NONE /HPF Urine WBC RARE /HPF Urine Squamous Epithelial Cells NONE /HPF Urine Renal Epithelial Cells NONE /HPF Urine Crystals NONE /LPF Urine Bacteria NEGATIVE /HPF Urine Casts NONE /LPF Urine Mucus NEGATIVE /LPF Urine Culture Indicated NO (SRUTHI SCHUMACHER DO) Medications Given in ED Current Medications Medications Dose Ordered Sig/Raquel Route Start Time Stop Time Status Last Admin Dose Admin Acetaminophen/ Hydrocodone Bitart 1 ea Q4H PRN PO 08/28/21 21:00 08/28/21 21:28 DC 08/28/21 21:23 1 EA Ceftriaxone Sodium/Dextrose 50 ml @ 100 mls/hr ONCE ONCE IV 08/28/21 20:30 08/28/21 20:59 DC 08/28/21 20:43 100 MLS/HR Fentanyl Citrate 75 mcg ONCE ONCE IVP 08/28/21 19:30 08/28/21 19:31 DC 08/28/21 19:39 75 MCG Ketorolac Tromethamine 15 mg ONCE ONCE IVP 08/28/21 19:30 08/28/21 19:31 DC 08/28/21 19:39 15 MG Metronidazole 500 mg ONCE ONCE PO 08/28/21 20:30 08/28/21 20:31 DC 08/28/21 20:43 500 MG (SRUTHI SCHUMACHER DO) Vital Signs/I&O 08/28/21 08/28/21 19:20 21:28 Temp 36.3 Pulse 90 82 Resp 20 20 B/P (MAP) 158/109 (125) 120/65 Pulse Ox 99 99 O2 Delivery Room Air Room Air (SRUTHI SCHUMACHER DO) Departure Communication (Admissions) NAME: ENRIQUE GARCIA REC#: [id number] PT STATUS: REG ER : 1960 PHYSICIAN: PHILIP GILMORE APRN ADMIT DATE: 08/28/21/ER Draft Date of Exam:08/28/21 CT ABD/PELVIS WO(KIDNEY STONE) PROCEDURE: CT urinary tract, rule out kidney stone. TECHNIQUE: Multiple contiguous axial images were obtained through the abdomen and pelvis without the use of intravenous contrast. Auto Exposure Controls were utilized during the CT exam to meet ALARA standards for radiation dose reduction. INDICATION: Abdominal pain and hematuria. COMPARISON: 11/02/2019 Unenhanced images of the liver and spleen are unremarkable. Gallbladder is surgically absent with mild prominence of extrahepatic bile ducts. No pancreatic or adrenal gland abnormality is identified. Unenhanced images of the kidneys are stable without evidence of hydronephrosis. Exophytic nodule arising from the lower pole of the right kidney may represent complicated cyst. There is localized inflammation surrounding the upper sigmoid colon in the left lower quadrant. Urinary bladder is distended without evidence of intraluminal calcification or other filling defect. There is no evidence of appendiceal region inflammation. Extensive surgical findings are again noted in the lumbar spine with interval L3-L4 discectomy. IMPRESSION: Focal inflammation at the level of sigmoid colon may represent area of diverticulitis and clinical correlation would be of use. Nonspecific exophytic nodule measuring 1 cm in diameter arises from the lower pole of the right kidney. Ultrasonography would be useful for determination of cystic versus solid nature. Dictated on workstation # [id number] Dict: 08/28/212009 Trans: 08/28/21 2016 [facility] [id number] Interpreted by: ANNA SOFIA MD Electronically signed by: (PHILIP GILMORE APRN) Impression Primary Impression: Sigmoid diverticulitis Disposition: ADMITTED INPATIENT Condition: Stable Departure-Patient Inst. Decision time for Depature: 20:56 (PHILIP GILMORE APRN) Referrals: [facility] [place]) Primary Care Physician Patient Instructions: Diverticulitis Add. Discharge Instructions: 1. Take the antibiotics and the pain medication as directed. Reduce your water intake. Return to ER for any fevers or worsening pain. Scripts Ondansetron (Ondansetron Odt) 8 Mg Tab.rapdis 8 MG PO Q6H PRN for NAUSEA/VOMITING, #10 TAB . Prov: PHILIP GILMORE APRN 08/28/21 Amoxicillin/Potassium Clav (Amox Tr-K Clv 875-125 mg Tab) 1 Each Tablet 1 EACH PO BID, #14 TAB . Prov: PHILIP GILMORE APRN 08/28/21 Hydrocodone/Acetaminophen (Hydrocodone-Acetamin 5-325 mg) 1 Each Tablet 1 TAB PO Q4H PRN for PAIN-MODERATE (5-7), #14 TAB . Prov: PHILIP GILMORE APRN 08/28/21 ATTENDING PHYSICIAN NOTE: I WAS PHYSICALLY PRESENT ER PHYSICIAN, BUT I WAS NOT INVOLVED IN ANY DECISION MAKING OR ANY CARE OF THIS PATIENT. (SRUTHI SCHUMACHER DO) PHILIP GILMORE APRN Aug 28, 2021 19:47 SRUTHI SCHUMACHER DO Aug 28, 2021 23:59
[2021-08-28 19:50] LABS: BASOPHILS % (AUTO) 0 % (0-10); EOSINOPHILS % (AUTO) 0 % (0-10); HEMATOCRIT 34 % (35-52); HEMOGLOBIN 11.8 g/dL (11.5-16.0); LYMPHOCYTES # (AUTO) 2.1 10^3/uL (1.0-4.0); LYMPHOCYTES % (AUTO) 27 % (12-44); MEAN CORPUSCULAR HEMOGLOBIN 34 pg (25-34); MEAN CORPUSCULAR HGB CONC 35 g/dL (32-36); MEAN CORPUSCULAR VOLUME 98 fL (80-99); MEAN PLATELET VOLUME 9.1 fL (9.0-12.2); MONOCYTES # (AUTO) 0.3 10^3/uL (0.0-1.0); MONOCYTES % (AUTO) 4 % (0-12); NEUTROPHILS # (AUTO) 5.4 10^3/uL (1.8-7.8); NEUTROPHILS % (AUTO) 69 % (42-75); PLATELET COUNT 295 10^3/uL (130-400); WHITE BLOOD COUNT 7.8 10^3/uL (4.3-11.0)
[2021-08-28 20:12] LABS: ALBUMIN 4.2 GM/DL (3.2-4.5); BILIRUBIN,TOTAL 0.5 MG/DL (0.1-1.0); CALCIUM 9.2 MG/DL (8.5-10.1); CREATININE SERUM 0.72 MG/DL (0.60-1.30); POTASSIUM 4.4 MMOL/L (3.6-5.0)
--- NOTE | 2021-08-28 20:17 | Diagnostic Imaging Report ---
PROCEDURE: CT urinary tract, rule out kidney stone. TECHNIQUE: Multiple contiguous axial images were obtained through the abdomen and pelvis without the use of intravenous contrast. Auto Exposure Controls were utilized during the CT exam to meet ALARA standards for radiation dose reduction. INDICATION: Abdominal pain and hematuria. COMPARISON: 11/02/2019 Unenhanced images of the liver and spleen are unremarkable. Gallbladder is surgically absent with mild prominence of extrahepatic bile ducts. No pancreatic or adrenal gland abnormality is identified. Unenhanced images of the kidneys are stable without evidence of hydronephrosis. Exophytic nodule arising from the lower pole of the right kidney may represent complicated cyst. There is localized inflammation surrounding the upper sigmoid colon in the left lower quadrant. Urinary bladder is distended without evidence of intraluminal calcification or other filling defect. There is no evidence of appendiceal region inflammation. Extensive surgical findings are again noted in the lumbar spine with interval L3-L4 discectomy. IMPRESSION: Focal inflammation at the level of sigmoid colon may represent area of diverticulitis and clinical correlation would be of use. Nonspecific exophytic nodule measuring 1 cm in diameter arises from the lower pole of the right kidney. Ultrasonography would be useful for determination of cystic versus solid nature. Dictated by: Dictated on workstation # [id number]
[2021-08-28] MEDS ORDERED: metroNIDAZOLE 500 MG (FLAGYL) TAB PO ONE (20:30)
[2021-08-28] MEDS ORDERED: cefTRIAXone 1 GM PRE-MIX 50 ML IV ONE (20:30)
[2021-08-28] MEDS ORDERED: PIPERACILLIN SODIUM/TAZOBACTAM 4.5 GM in NS (IVPB) 100 ML IV ONE (20:30)
[2021-08-28 20:31] LABS: COLOR,URINE YELLOW
[2021-08-28 20:32] LABS: BACTERIA,URINE NEGATIVE /HPF; BILIRUBIN,URINE NEGATIVE (NEGATIVE); CLARITY,URINE CLEAR; GLUCOSE, URINE (UA) NEGATIVE (NEGATIVE); KETONES,URINE NEGATIVE (NEGATIVE); LEUKOCYTE ESTERASE ,URINE NEGATIVE (NEGATIVE); NITRITE,URINE NEGATIVE (NEGATIVE); PROTEIN,URINE NEGATIVE (NEGATIVE); WBC,URINE RARE /HPF
[2021-08-28] MEDS ORDERED: ONDA8TAB13 PO ×2 (21:00→21:06)
[2021-08-28] MEDS ORDERED: AMOX1TAB12 PO ×2 (21:00→21:06)
[2021-08-28] MEDS ORDERED: ACHD5005 PO ×2 (21:00→21:06)
[2021-08-28 21:28] VITALS: BP 120/65
== END 2021-08-28 21:28 | disposition other institution (70) ==
LOC: EDUNIT# 18:31 → ER 18:33
DX: K57.32 Diverticulitis of large intestine without perforation or abscess without bleeding (principal)
CPT/HCPCS: 36415; 74176; 80053; 81000; 85025

== ENCOUNTER 2021-10-03 01:10 | Inpatient (IN) | payer MEDICARE, MEDICAID ==
[~2021-10-03] VITALS: Ht 167.7 cm; Wt 90.7 kg
[~2021-10-03 01:10] MED LIST changes: +ACHD5005 PO; +AMOX1TAB12 PO; +ONDA8TAB13 PO
[2021-10-03 01:29] LABS: BASOPHILS % (AUTO) 0 % (0-10); EOSINOPHILS # (AUTO) 0.1 10^3/uL (0.0-0.3); EOSINOPHILS % (AUTO) 1 % (0-10); HEMATOCRIT 36 % (35-52); HEMOGLOBIN 12.5 g/dL (11.5-16.0); LYMPHOCYTES # (AUTO) 4.2 10^3/uL (1.0-4.0); LYMPHOCYTES % (AUTO) 44 % (12-44); MEAN CORPUSCULAR HEMOGLOBIN 34 pg (25-34); MEAN CORPUSCULAR HGB CONC 35 g/dL (32-36); MEAN CORPUSCULAR VOLUME 97 fL (80-99); MEAN PLATELET VOLUME 9.5 fL (9.0-12.2); MONOCYTES # (AUTO) 0.5 10^3/uL (0.0-1.0); MONOCYTES % (AUTO) 5 % (0-12); NEUTROPHILS # (AUTO) 4.5 10^3/uL (1.8-7.8); NEUTROPHILS % (AUTO) 48 % (42-75); PLATELET COUNT 323 10^3/uL (130-400); WHITE BLOOD COUNT 9.4 10^3/uL (4.3-11.0)
[2021-10-03 01:30] LABS: CHLORIDE 97 MMOL/L (98-107); POTASSIUM 3.8 MMOL/L (3.6-5.0); SODIUM 129 MMOL/L (135-145)
[2021-10-03] MEDS ORDERED: LACTATED RINGERS 1,000 ML IV ONE (01:30)
[2021-10-03 01:32] LABS: AMYLASE 144 U/L (25-125)
[2021-10-03 01:33] LABS: AMMONIA 35 UMOL/L (11-32); GLUCOSE 128 MG/DL (70-105)
[2021-10-03 01:34] LABS: CARBON DIOXIDE 17 MMOL/L (21-32); TOTAL PROTEIN 6.2 GM/DL (6.4-8.2)
[2021-10-03 01:35] LABS: BILIRUBIN,TOTAL 0.4 MG/DL (0.1-1.0)
[2021-10-03 01:37] LABS: ALKALINE PHOSPHATASE 90 U/L (40-136); CREATININE SERUM 0.82 MG/DL (0.60-1.30); GFR ESTIMATED 82
[2021-10-03 01:38] LABS: ACETAMINOPHEN < 10 UG/ML (10-30); BUN/CREATININE RATIO 12
[2021-10-03 01:40] LABS: ALANINE AMINOTRANSFERASE 22 U/L (0-55); MAGNESIUM 1.9 MG/DL (1.6-2.4)
[2021-10-03 01:41] LABS: CREATINE KINASE 70 U/L (29-168); LIPASE 70 U/L (8-78)
[2021-10-03 01:49] LABS: BILIRUBIN,URINE NEGATIVE (NEGATIVE); CLARITY,URINE CLEAR; COLOR,URINE YELLOW; GLUCOSE, URINE (UA) NEGATIVE (NEGATIVE); KETONES,URINE NEGATIVE (NEGATIVE); LEUKOCYTE ESTERASE ,URINE NEGATIVE (NEGATIVE); NITRITE,URINE NEGATIVE (NEGATIVE); PH,URINE 5.5 (5-9); PROTEIN,URINE NEGATIVE (NEGATIVE)
[2021-10-03 01:50] LABS: CREATINE KINASE MB 1.2 NG/ML (<6.6)
[2021-10-03 01:57] LABS: INR 1.2 (0.8-1.4); PROTHROMBIN TIME PATIENT 15.2 SEC (12.2-14.7)
[2021-10-03 01:58] LABS: ERYTHROCYTE SEDIMENTATION RATE 16 MM/HR (0-30)
[2021-10-03 01:58] LABS: BACTERIA,URINE NEGATIVE /HPF
[2021-10-03] MEDS ORDERED: NS IV 1000 ML 1,000 ML IV SCH ×2 (02:00→04:45)
[2021-10-03 02:03] LABS: AMPHETAMINE SCREEN, URINE NEGATIVE (NEGATIVE); BARBITURATE SCREEN URINE NEGATIVE (NEGATIVE); BENZODIAZEPINES SCREEN URINE NEGATIVE (NEGATIVE); CANNABINOID SCREEN, URINE NEGATIVE (NEGATIVE); COCAINE SCREEN URINE NEGATIVE (NEGATIVE); METHADONE STAT NEGATIVE (NEGATIVE); METHAMPHETAMINE SCREEN URINE S NEGATIVE (NEGATIVE); OPIATE SCREEN URINE NEGATIVE (NEGATIVE); OXYCODONE STAT NEGATIVE (NEGATIVE); PROPOXYPHENE STAT NEGATIVE (NEGATIVE); TRICYCLIC ANTIDEPRESSANTS SCRE NEGATIVE (NEGATIVE)
[2021-10-03 02:03] LABS: TSH (THYROID ANALYZER) 1.83 UIU/ML (0.35-4.94)
--- NOTE | 2021-10-03 02:54 | ED General ---
General Chief Complaint: Unresponsive Stated Complaint: UNRESPONSIVE Nursing Triage Note: PATIENT ARRIVED VIA EMS. EMS REPORTED THAT SHE HAD CALLED 911 AND INDICATED THAT SHE HAD FALLEN AND THEN STOPPED RESPONDING ON THE PHONE. Allergies and Home Medications Allergies Coded Allergies: Influenza Virus Vaccines (Verified Allergy, Unknown, 08/26/19) tramadol (Unverified Allergy, Unknown, 11/22/16) Uncoded Allergies: PNEUMONIA SHOT (Allergy, Unknown, 11/22/16) Patient Home Medication List Albuterol Sulfate (Proair Hfa) 8.5 Gm Hfa.aer.ad, 8.5 GM IH Q4H Prescribed by: PHILIP GILMORE on 06/23/15 1552 Albuterol Sulfate (Proventil Hfa) 6.7 Gm Hfa.aer.ad, 2 PUFF IH Q4H PRN for SHORTNESS OF BREATH Prescribed by: ANDRE LORD on 08/01/172053 Albuterol Sulfate (Ventolin Hfa) 18 Gm Hfa.aer.ad, 2 PUFF PO Q4H PRN for SHORTNESS OF BREATH, (Reported) Entered as Reported by: DESMOND WATTS on 08/17/19 1126 Alprazolam (Alprazolam) 0.5 Mg Tablet, 0.5 MG PO DAILY, (Reported) Entered as Reported by: BERTHA MOSES on 06/13/16 1638 Amoxicillin/Potassium Clav (Amox Tr-K Clv 875-125 mg Tab) 1 Each Tablet, 1 EACH PO BID Prescribed by: PHILIP GILMORE on 08/28/21 210 Aspirin (Aspirin EC) 81 Mg Tablet.dr, 81 MG PO DAILY, (Reported) Entered as Reported by: DESMOND WATTS on 08/17/19 1126 Benzonatate (Benzonatate) 200 Mg Capsule, 200 MG PO Q8H PRN for COUGH Prescribed by: ANDRE OLRD on 08/01/172053 Budesonide/Formoterol Fumarate (Symbicort 160-4.5 Mcg Inhaler) 10.2 Gm Hfa.aer.ad, 2 PUFF IH BID, (Reported) Entered as Reported by: DESMOND WATTS on 08/17/19 1136 Bupropion HCl (Bupropion HCl Sr) 150 Mg Tablet.er, 150 MG PO BID, (Reported) Entered as Reported by: BERTHA MOSES on 06/13/16 1638 Diazepam (Diazepam) 10 Mg Tablet, 5-10 MG PO HS, (Reported) Entered as Reported by: DESMOND WATTS on 08/17/19 1126 Diclofenac Sodium (Diclofenac Sodium) 75 Mg Tablet.dr, 75 MG PO BID, (Reported) Entered as Reported by: BERTHA MOSES on 06/13/16 1638 Docusate Sodium (Stool Softener) 100 Mg Capsule, 100 MG PO DAILY PRN PRN for CONSTIPATION-1ST LINE Prescribed by: CEDRICK SALVADOR on 08/24/19 1315 Escitalopram Oxalate (Escitalopram Oxalate) 20 Mg Tablet, 20 MG PO DAILY, (Reported) Entered as Reported by: DESMOND WATTS on 08/17/19 1126 Fluoxetine Hcl (Prozac) 20 Mg Capsule, 1 EACH PO DAILY, (Reported) Entered as Reported by: MATTEO SERRANO on 08/14/122144 Furosemide (Lasix) 40 Mg Tablet, 40 MG PO DAILY Prescribed by: CEDRICK SALVADOR on 08/24/19 1315 Gabapentin (Gabapentin) 600 Mg Tablet, 600 MG PO Q8H PRN for NERVE PAIN, (Reported) Entered as Reported by: DESMOND WATTS on 08/17/19 1136 Gabapentin (Gabapentin) 600 Mg Tablet, 600 MG PO TID PRN for PAIN-MODERATE (5-7) Prescribed by: OSCAR BURNS on 05/30/21 0728 Hydrocodone Bit/Acetaminophen (HYDROcodone/APAP 10/325 TABLET) 1 Each Tablet, 1 TAB PO Q6H PRN for PAIN-SEVERE (8-10) Prescribed by: CEDRICK SALVADOR on 08/24/19 1316 Hydrocodone/Acetaminophen (Hydrocodone-Acetamin 5-325 mg) 1 Each Tablet, 1 TAB PO Q4H PRN for PAIN-MODERATE (5-7) Prescribed by: PHILIP GILMORE on 08/28/212106 Lidocaine (Lidocaine 5% Patch) 1 Each Adh..patch, 1 EACH TP Q12H PRN for Neuropathic pain Prescribed by: SRUTHI SCHUMACHER on 01/10/21 182 Lisinopril (Prinivil) 10 Mg Tablet, 10 MG PO DAILY, (Reported) Entered as Reported by: MATTEO SERRANO on 08/14/122144 Lisinopril (Lisinopril) 20 Mg Tablet, 20 MG PO DAILY@0900 Prescribed by: CEDRICK SALVADOR on 08/24/19 1315 Lisinopril (Lisinopril) 10 Mg Tablet, 10 MG PO DAILY Prescribed by: OSCAR BURNS on 05/30/21 0728 Loperamide HCl (Loperamide) 2 Mg Capsule, 4 MG PO NEEDED PRN for DIARRHEA Prescribed by: CEDRICK SALVADOR on 08/24/19 1315 Meloxicam (Meloxicam) 15 Mg Tablet, 15 MG PO DAILY, (Reported) Entered as Reported by: DESMOND WATTS on 08/17/19 1126 Metformin HCl (Metformin HCl ER) 500 Mg Tab.er.24h, 500 MG PO DAILY, (Reported) Entered as Reported by: DESMOND WATTS on 08/17/19 1126 Methocarbamol (Methocarbamol) 750 Mg Tablet, 750 MG PO Q8H PRN for MUSCLE SPASMS, (Reported) Entered as Reported by: DESMOND WATTS on 08/17/19 1136 Methocarbamol (Robaxin-750) 750 Mg Tablet, 750 MG PO Q4H PRN for PAIN-MODERATE (5-7) Prescribed by: PHILIP GILMORE on 01/09/20 1429 Methocarbamol (Methocarbamol) 750 Mg Tablet, 750 MG PO Q6-8HR Prescribed by: OSCAR BURNS on 05/30/21 0728 Metoprolol Tartrate (Metoprolol Tartrate) 50 Mg Tablet, 50 MG PO BID Prescribed by: CEDRICK SALVADOR on 08/24/19 1315 Miconazole Nitrate (Lotrimin AF) 90 Gm Powder, 0 GM TOP BID Prescribed by: CEDRICK SALVADOR on 08/24/19 1315 Naproxen (Naprosyn) 500 Mg Tablet, 500 MG PO BID Prescribed by: PHILIP GILMORE on 01/09/20 1429 Naproxen (Naprosyn) 500 Mg Tablet, 500 MG PO BID Prescribed by: PHILIP GILMORE on 06/04/20 1520 Omeprazole (Omeprazole) 20 Mg Capsule.dr, 20 MG PO DAILY, (Reported) Entered as Reported by: DESMOND WATTS on 08/17/19 1136 Ondansetron (Ondansetron Odt) 4 Mg Tab.rapdis, 4 MG PO Q4H PRN for NAUSEA/VOMITING-1ST LINE, (Reported) Entered as Reported by: DESMOND WATTS on 08/17/19 1136 Ondansetron (Ondansetron Odt) 8 Mg Tab.rapdis, 8 MG PO Q6H PRN for NAUSEA/ VOMITING Prescribed by: PHILIP GILMORE on 08/28/212105 Oxybutynin Chloride (Oxybutynin Chloride) 5 Mg Tablet, 5 MG PO BID, (Reported) Entered as Reported by: DESMOND WATTS on 08/17/19 1126 Prednisone (Prednisone) 20 Mg Tab, 40 MG PO DAILY Prescribed by: ANDRE LORD on 08/01/172053 Pregabalin (Lyrica) 75 Mg Capsule, 75 MG PO BID, (Reported) Entered as Reported by: BERTHA MOSES on 06/13/16 1638 Ranitidine HCl (Ranitidine HCl) 150 Mg Tablet, 150 MG PO BID, (Reported) Entered as Reported by: BERTHA MOSES on 06/13/16 1638 Simvastatin (Simvastatin) 40 Mg Tablet, 40 MG PO DAILY, (Reported) Entered as Reported by: BERTHA MOSES on 06/13/16 1638 Simvastatin (Simvastatin) 40 Mg Tablet, 40 MG PO DAILY, (Reported) Entered as Reported by: DESMOND WATTS on 08/17/19 1136 Simvastatin (Simvastatin) 40 Mg Tablet, 40 MG PO HS Prescribed by: OSCAR BURNS on 05/30/21 0728 Past Zocetmf-Omidjh-Pbybmg Hx Immunizations Up To Date Tetanus Booster (TDap): Unknown PED Vaccines UTD: Yes First/Initial COVID19 Vaccinat: N/A Second COVID19 Vaccination Mariano: N/A Third COVID19 Vaccination Date: N/A Seasonal Allergies Seasonal Allergies: No Past Medical History Surgery/Hospitalization HX: COPD, bronchitis, diabetes Surgeries: Yes (BACK SURGERY 2017; FOOT SURGERY) Gallbladder, Hysterectomy, Orthopedic, Tonsillectomy, Tubal Ligation Respiratory: Yes (07/2019--PNEUMONIA WITH SEPTIC SHOCK AND INTUBATED. 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 Headaches /Migraines RN EMBEDDED History: Menopausal Genitourinary: No Gastrointestinal: Yes (delayed emptying) Gastroesophageal Reflux, Gall Bladder Disease Musculoskeletal: Yes (foot surgery; BACK SURGERY) Degenerate Disk Disease, Chronic Back Pain Endocrine: Yes (MORBID OBESITY) Diabetes, Non-Insulin dep HEENT: No Cancer: No Psychosocial: Yes (RX DRUG ABUSE) Anxiety, Depression Integumentary: No Blood Disorders: No Family Medical History No Pertinent Family Hx Physical Exam Vital Signs Vital Signs - First Documented 10/03/21 01:15 O2 Flow Rate 2.00 Capillary Refill : Less Than 3 Seconds Height, Weight, BMI Height: 5'8.00" Weight: 220lbs. oz. 99.474626ij; 32.00 BMI Method:Stated Focused Exam Sepsis Stage: Sepsis Possible Source: Unknown Time of Focused Exam: 02:55 Respiratory: Normal Breath Sounds, No Accessory Muscle Use, No Respiratory Distress Cardiovascular: Regular Rate, Rhythm, No Murmur Capillary Refill: Less Than 3 Seconds Within 3hrs of presentation: Admin fluids, Admin ABX, Blood cultures prior to ABX's, Focus exam, Lactate level Procedures/Interventions Date of ETT Placement: Aug 16, 2019 Time of ETT Placement: 2300 Progress/Results/Core Measures Suspected Sepsis Recent Fever Within 48 Hours: No Infection Criteria Present: Suspected New Infection New/Unexplained Altered Menta: Yes SIRS Temperature: Pulse: 64 Respiratory Rate: 14 Laboratory Tests 10/03/21 01:15: White Blood Count 9.4 Blood Pressure 80 /55 Mean: 63 Laboratory Tests 10/03/21 01:15: Creatinine 0.82, Platelet Count 323, Total Bilirubin 0.4 10/03/21 01:29: INR Comment 1.2 Results/Orders Lab Results Laboratory Tests Test 10/03/21 01:15 10/03/21 01:29 10/03/21 01:40 10/03/21 03:10 Range/Units White Blood Count 9.4 4.3-11.0 10^3/uL Red Blood Count 3.70 L 3.80-5.11 10^6/uL Hemoglobin 12.5 11.5-16.0 g/dL Hematocrit 36 35-52 % Mean Corpuscular Volume 97 80-99 fL Mean Corpuscular Hemoglobin 34 25-34 pg Mean Corpuscular Hemoglobin Concent 35 32-36 g/dL Red Cell Distribution Width 12.0 10.0-14.5 % Platelet Count 323 130-400 10^3/uL Mean Platelet Volume 9.5 9.0-12.2 fL Immature Granulocyte % (Auto) 0 % Neutrophils (%) (Auto) 48 42-75 % Lymphocytes (%) (Auto) 44 12-44 % Monocytes (%) (Auto) 5 0-12 % Eosinophils (%) (Auto) 1 0-10 % Basophils (%) (Auto) 0 0-10 % Neutrophils # (Auto) 4.5 1.8-7.8 10^3/uL Lymphocytes # (Auto) 4.2 H 1.0-4.0 10^3/uL Monocytes # (Auto) 0.5 0.0-1.0 10^3/uL Eosinophils # (Auto) 0.1 0.0-0.3 10^3/uL Basophils # (Auto) 0.0 0.0-0.1 10^3/uL Immature Granulocyte # (Auto) 0.0 0.0-0.1 10^3/uL Erythrocyte Sedimentation Rate 16 0-30 MM/HR Sodium Level 129 L 135-145 MMOL/L Potassium Level 3.8 3.6-5.0 MMOL/L Chloride Level 97 L 98-107 MMOL/L Carbon Dioxide Level 17 L 21-32 MMOL/L Anion Gap 15 H 5-14 MMOL/L Blood Urea Nitrogen 10 7-18 MG/DL Creatinine 0.82 0.60-1.30 MG/DL Estimat Glomerular Filtration Rate 82 BUN/Creatinine Ratio 12 Glucose Level 128 H 70-105 MG/DL Calcium Level 9.0 8.5-10.1 MG/DL Corrected Calcium 9.0 8.5-10.1 MG/DL Magnesium Level 1.9 1.6-2.4 MG/DL Total Bilirubin 0.4 0.1-1.0 MG/DL Aspartate Amino Transf (AST/SGOT) 24 5-34 U/L Alanine Aminotransferase (ALT/SGPT) 22 0-55 U/L Alkaline Phosphatase 90 40-136 U/L Ammonia 35 H 11-32 UMOL/L Total Creatine Kinase 70 29-168 U/L Creatine Kinase MB 1.2 <6.6 NG/ML Myoglobin 52.5 10.0-92.0 NG/ML Troponin I < 0.028 <0.028 NG/ML C-Reactive Protein High Sensitivity 0.20 0.00-0.50 MG/DL Total Protein 6.2 L 6.4-8.2 GM/DL Albumin 4.0 3.2-4.5 GM/DL Amylase Level 144 H 25-125 U/L Lipase 70 8-78 U/L TSH [place] Testing 1.83 0.35-4.94 UIU/ML Serum Test, Qualitative NEGATIVE NEGATIVE Acetaminophen Level < 10 L 10-30 UG/ML Serum Alcohol < 10 <10 MG/DL Prothrombin Time 15.2 H 12.2-14.7 SEC INR Comment 1.2 0.8-1.4 Activated Partial Thromboplast Time 40 H 24-35 SEC Influenza Type A (RT-PCR) Not Detected Not Detecte Influenza Type B (RT-PCR) Not Detected Not Detecte SARS-CoV-2 RNA (RT-PCR) Not Detected Not Detecte Urine Color YELLOW Urine Clarity CLEAR Urine pH 5.5 5-9 Urine Specific [place] <=1.005 1.016-1.022 Urine Protein NEGATIVE NEGATIVE Urine Glucose (UA) NEGATIVE NEGATIVE Urine Ketones NEGATIVE NEGATIVE Urine Nitrite NEGATIVE NEGATIVE Urine Bilirubin NEGATIVE NEGATIVE Urine Urobilinogen 0.2 < = 1.0 MG/DL Urine Leukocyte Esterase NEGATIVE NEGATIVE Urine RBC (Auto) NEGATIVE NEGATIVE Urine RBC NONE /HPF Urine WBC NONE /HPF Urine Squamous Epithelial Cells NONE /HPF Urine Crystals NONE /LPF Urine Bacteria NEGATIVE /HPF Urine Casts NONE /LPF Urine Mucus NEGATIVE /LPF Urine Culture Indicated NO Urine Opiates Screen NEGATIVE NEGATIVE Urine Oxycodone Screen NEGATIVE NEGATIVE Urine Methadone Screen NEGATIVE NEGATIVE Urine Propoxyphene Screen NEGATIVE NEGATIVE Urine Barbiturates Screen NEGATIVE NEGATIVE Ur Tricyclic Antidepressants Screen NEGATIVE NEGATIVE Urine Phencyclidine Screen NEGATIVE NEGATIVE Urine Amphetamines Screen NEGATIVE NEGATIVE Urine Methamphetamines Screen NEGATIVE NEGATIVE Urine Benzodiazepines Screen NEGATIVE NEGATIVE Urine Cocaine Screen NEGATIVE NEGATIVE Urine Cannabinoids Screen NEGATIVE NEGATIVE Blood Gas Puncture Site RIGHT RADIAL Blood Gas Patient Temperature 36.8 Arterial Blood pH 7.29 *L 7.37-7.43 Arterial Blood Partial Pressure CO2 43 35-45 MMHG Arterial Blood Partial Pressure O2 61 L 79-93 MMHG Arterial Blood HCO3 20 L 23-27 MMOL/L Arterial Blood Total CO2 21.6 21.0-31.0 MMOL/L Arterial Blood Oxygen Saturation 94-100 % Arterial Blood Base Excess -5.1 L -2.5-2.5 MMOL/L Blue Test POSITIVE Blood Gas Ventilator Setting NO Blood Gas Inspired Oxygen 2 My Orders Orders - SRUTHI SCHUMACHER DO Ed Iv/Invasive Line Start (4/12/22 01:19) Ekg Tracing (10/03/21:19) Catheter(Urinary) Insert & Ass 03,15 (10/03/21:19) O2 (10/03/21:19) Monitor-Rhythm Ecg Trace Only (10/03/21:19) Ct Thoracic/Lumbar Spine Wo (10/03/21:19) Chest 1 View, Ap/Pa Only (10/03/21:19) Pelvis (10/03/21:19) Acetaminophen (10/03/21:19) Alcohol (10/03/21:19) Ammonia (10/03/21:19) Amylase (10/03/21:) Cbc With Automated Diff (10/03/21:) Comprehensive Metabolic Panel (10/03/21:) Creatine Kinase (10/03/21:19) Creatine Kinase Mb (10/03/21:19) Hs C Reactive Protein (10/03/21:) Drug Screen Stat (Urine) (10/03/21:19) Hcg,Qualitative Serum (10/03/21:19) Lipase (10/03/21:19) Magnesium (10/03/21:19) Protime With Inr (10/03/21:) Partial Thromboplastin Time (10/03/21:19) Thyroid Analyzer (10/03/21:19) Ua Culture If Indicated (10/03/21:19) Erythrocyte Sedimentation Rate (10/03/21:19) Myoglobin Serum (10/03/21:19) Troponin I Roberta (10/03/21:19) Ed Iv/Invasive Line Start (10/03/21:19) Lactated Ringers (Lr 1000 Ml Iv Solution (10/03/21 01:30) Covid 19 Inhouse Test (10/03/21:19) Influenza A And B By Pcr (10/03/21:19) Isolation Central Supply Req (10/03/21:19) Ct Chest/Abdomen/Pelvis W (10/03/21:19) C Difficile Ag + Toxin A/B. (10/03/21 01:45) Isolation Central Supply Req (10/03/21 01:45) Stool Culture (10/03/21 01:45) Fecal Wbc (10/03/21 01:45) Ed Iv/Invasive Line Start (10/03/21 01:47) Ns Iv 1000 Ml (Sodium Chloride 0.9%) (10/03/21 02:00) Ct Head/Cervical Spine Wo (10/03/21 01:19) Iohexol Injection (Omnipaque 350 Mg/Ml 1 (10/03/21 03:00) Sodium Chloride Flush (Catheter Flush Sy (10/03/21 03:00) Ns (Ivpb) (Sodium Chloride 0.9% Ivpb Bag (10/03/21 03:00) Cefepime Injection (Maxipime Injection) (10/03/21 03:00) Vancomycin Injection (Vancomycin Injecti (10/03/21 03:00) Vancomycin Injection (Vancomycin Injecti (10/03/21 04:00) Arterial Blood Gas (10/03/21 03:00) Sodium Bicarbonate 8.4% Syr (Sodium Bica (10/03/21 03:45) Sodium Bicarbonate 8.4% Vial (Sodium Bic (10/03/21 03:50) Medications Given in ED Current Medications Medications Dose Ordered Sig/Raquel Route Start Time Stop Time Status Last Admin Dose Admin Cefepime HCl 1000 mg/Sodium Chloride 50 ml @ 100 mls/hr ONCE ONCE IV 10/03/21 03:00 10/03/21 03:29 DC 10/03/21 03:05 100 MLS/HR Iohexol 150 ml ONCE ONCE IV 10/03/21 03:00 10/03/21 03:01 DC 10/03/21 03:02 100 ML Lactated Ringer's 1,000 ml @ 0 mls/hr Q0M ONCE IV 10/03/21 01:30 10/03/21 01:31 DC 10/03/21 01:59 999 MLS/HR Sodium Bicarbonate 50 meq ONCE ONCE IV 10/03/21 03:45 10/03/21 03:46 DC 10/03/21 03:57 50 MEQ Sodium Chloride 10 ml NEEDED PRN IV 10/03/21 03:00 10/03/21 03:02 10 ML Sodium Chloride 100 ml ONCE ONCE IV 10/03/21 03:00 10/03/21 03:01 DC 10/03/21 03:02 80 ML Vancomycin HCl 1000 mg/Sodium Chloride 250 ml @ 250 mls/hr ONCE ONCE IV 10/03/21 03:00 10/03/21 03:59 DC 10/03/21 03:21 250 MLS/HR Vital Signs/I&O 10/03/21 10/03/21 10/03/21 01:12 01:12 01:15 Temp 35.9 35.9 Pulse 64 64 Resp 14 14 B/P (MAP) 80/55 80/55 (63) Pulse Ox 94 94 94 O2 Delivery Room Air Room Air Nasal Cannula O2 Flow Rate 2.00 Capillary Refill : Less Than 3 Seconds Blood Pressure Mean: 63 Progress Note : Progress Note GIVEN IV FLUIDS--BP UP TO > 100 SYSTOLIC AFTER 1 LITER INFUSED O2 SATS REMAIN 100% ON 2L/NC NO DETERIORATION IN PT'S CONDITION DURING ER STAY Departure Impression Primary Impression: Altered mental status Additional Impressions: Acidosis Hyponatremia History of prescription drug abuse Departure-Patient Inst. Referrals: [facility] (PCP/Family) Primary Care Physician SRUTHI SCHUMACHER DO Oct 03, 2021 02:54
[2021-10-03] MEDS ORDERED: NS 100 ML (IVPB) BAG IV ONE (03:00)
[2021-10-03] MEDS ORDERED: IOHEXOL 350 MG/ML 150 ML (OMNIPAQUE 350) VIAL IV ONE (03:00)
[2021-10-03] MEDS ORDERED: CEFEPIME INJECTION 1,000 MG in NS (IVPB) 50 ML IV ONE (03:00)
[2021-10-03] MEDS ORDERED: VANCOMYCIN INJECTION 1,000 MG in NS (IVPB) 250 ML IV ONE (03:00)
[2021-10-03] MEDS ORDERED: CATHETER FLUSH 10 ML SYR IV PRN (03:00)
[2021-10-03 03:34] LABS: ABG BASE EXCESS -5.1 MMOL/L (-2.5-2.5); ABG PCO2 43 MMHG (35-45); ABG PO2 61 MMHG (79-93); ABG TCO2 21.6 MMOL/L (21.0-31.0)
[2021-10-03 03:35] LABS: ALLENS TEST POSITIVE; INSPIRED O2 2; PATIENT TEMP 36.8; VENTILATOR NO
[2021-10-03 03:36] LABS: ABG PH 7.29 (7.37-7.43)
[2021-10-03] MEDS ORDERED: SODIUM BICARB 8.4% 50 MEQ/50 ML (ABBOTT) SYR IV ONE (03:45)
[2021-10-03] MEDS ORDERED: SODIUM BICARB 8.4% 50 MEQ/50 ML VIAL ONE (03:50)
[2021-10-03] MEDS ORDERED: VANCOMYCIN INJECTION 750 MG in NS (IVPB) 250 ML IV ONE (04:00)
[2021-10-03 06:03] LABS: ABG BASE EXCESS -3.5 MMOL/L (-2.5-2.5); ABG OXYGEN SATURATION 98 % (94-100); ABG PCO2 44 MMHG (35-45); ABG PO2 97 MMHG (79-93); ABG TCO2 23.2 MMOL/L (21.0-31.0); ALLENS TEST NEGATIVE
[2021-10-03 06:04] LABS: INSPIRED O2 2; PATIENT TEMP 36.3; VENTILATOR NO
[2021-10-03 06:05] LABS: ABG PH 7.31 (7.37-7.43)
--- NOTE | 2021-10-03 06:09 | Diagnostic Imaging Report ---
EXAMINATION: Chest 1 view HISTORY: Chest pain after trauma. COMPARISON: 07/07/2021 FINDINGS: Heart size and pulmonary vasculature are normal. There are low lung volumes with mild left basilar opacities. No pleural effusion or pneumothorax. The osseous structures are intact. IMPRESSION: 1. No acute radiographic abnormality in the chest. Dictated by: Dictated on workstation # [id number]
--- NOTE | 2021-10-03 06:21 | Tele-ICU Consult ---
History of Present Illness History of Present Illness Date Seen by Provider: Oct 03, 2021 Time Seen by Provider: 06:15 Date of Admission PATIENT ARRIVED VIA EMS. EMS REPORTED THAT SHE HAD CALLED 911 AND INDICATED THAT SHE HAD FALLEN AND THEN STOPPED RESPONDING ON THE PHONE. ED COURSE; pt was obtunded/ ct head was negative fo rcva as per dr. Nicolas; ABG showed acute resp acidosis; pt has a long hx of overdose with prescription/ street drugs; uds -. ETOH negative poison control was called: supportive care advised per dr. nicolas ABG improved and pt became more awake arousable per ed. Per dr. Nicolas: empiric cefepime/ vanco given. pt developed copious diarrhea , smelly/ possible c diff considered. Allergies and Home Medications Allergies Coded Allergies: Influenza Virus Vaccines (Verified Allergy, Unknown, 08/26/19) tramadol (Unverified Allergy, Unknown, 11/22/16) Uncoded Allergies: PNEUMONIA SHOT (Allergy, Unknown, 11/22/16) Home Medications Albuterol Sulfate 8.5 Gm Hfa.aer.ad, 8.5 GM IH Q4H Prescribed by: PHILIP GILMORE on 06/23/151551 Albuterol Sulfate 6.7 Gm Hfa.aer.ad, 2 PUFF IH Q4H PRN for SHORTNESS OF BREATH Prescribed by: ANDRE LORD on 08/01/172053 Albuterol Sulfate 18 Gm Hfa.aer.ad, 2 PUFF PO Q4H PRN for SHORTNESS OF BREATH, (Reported) Alprazolam 0.5 Mg Tablet, 0.5 MG PO DAILY, (Reported) Amoxicillin/Potassium Clav 1 Each Tablet, 1 EACH PO BID . Prescribed by: PHILIP GILMORE on 08/28/212105 Aspirin 81 Mg Tablet.dr, 81 MG PO DAILY, (Reported) Benzonatate 200 Mg Capsule, 200 MG PO Q8H PRN for COUGH Prescribed by: ANDRE LORD on 08/01/172053 Budesonide/Formoterol Fumarate 10.2 Gm Hfa.aer.ad, 2 PUFF IH BID, (Reported) Bupropion HCl 150 Mg Tablet.er, 150 MG PO BID, (Reported) Diazepam 10 Mg Tablet, 5-10 MG PO HS, (Reported) Diclofenac Sodium 75 Mg Tablet.dr, 75 MG PO BID, (Reported) Docusate Sodium 100 Mg Capsule, 100 MG PO DAILY PRN PRN for CONSTIPATION-1ST LINE Prescribed by: CEDRICK SALVADOR on 08/24/19 131 Escitalopram Oxalate 20 Mg Tablet, 20 MG PO DAILY, (Reported) Fluoxetine Hcl 20 Mg Capsule, 1 EACH PO DAILY, (Reported) Furosemide 40 Mg Tablet, 40 MG PO DAILY Prescribed by: CEDRICK SALVADOR on 08/24/19 131 Gabapentin 600 Mg Tablet, 600 MG PO Q8H PRN for NERVE PAIN, (Reported) Gabapentin 600 Mg Tablet, 600 MG PO TID PRN for PAIN-MODERATE (5-7) Prescribed by: OSCAR BURNS on 05/30/21 0728 Hydrocodone Bit/Acetaminophen 1 Each Tablet, 1 TAB PO Q6H PRN for PAIN-SEVERE (8-10) Prescribed by: CEDRICK SALVADOR on 08/24/19 131 Hydrocodone/Acetaminophen 1 Each Tablet, 1 TAB PO Q4H PRN for PAIN-MODERATE (5- 7) . Prescribed by: PHILIP GILMORE on 08/28/212106 Lidocaine 1 Each Adh..patch, 1 EACH TP Q12H PRN for Neuropathic pain 2 patches max for 12 hours, then 12 hours patch-free period. Prescribed by: SRUTHI NICOLAS on 01/10/21 182 Lisinopril 10 Mg Tablet, 10 MG PO DAILY, (Reported) Lisinopril 20 Mg Tablet, 20 MG PO DAILY@0900 Prescribed by: CEDRICK SALVADOR on 08/24/19 131 Lisinopril 10 Mg Tablet, 10 MG PO DAILY Prescribed by: OSCAR BURNS on 05/30/2128 Loperamide HCl 2 Mg Capsule, 4 MG PO NEEDED PRN for DIARRHEA Prescribed by: CEDRICK SALVADOR on 08/24/19 131 Meloxicam 15 Mg Tablet, 15 MG PO DAILY, (Reported) Metformin HCl 500 Mg Tab.er.24h, 500 MG PO DAILY, (Reported) Methocarbamol 750 Mg Tablet, 750 MG PO Q8H PRN for MUSCLE SPASMS, (Reported) Methocarbamol 750 Mg Tablet, 750 MG PO Q4H PRN for PAIN-MODERATE (5-7) Prescribed by: PHILIP GILMORE on 01/09/20 1429 Methocarbamol 750 Mg Tablet, 750 MG PO Q6-8HR Prescribed by: OSCAR BURNS on 05/30/21 0728 Metoprolol Tartrate 50 Mg Tablet, 50 MG PO BID Prescribed by: CEDRICK SALVADOR on 08/24/19 1315 Miconazole Nitrate 90 Gm Powder, 0 GM TOP BID Prescribed by: CEDRICK SALVADOR on 08/24/19 1315 Naproxen 500 Mg Tablet, 500 MG PO BID Prescribed by: PHILIP GILMORE on 01/09/20 1429 Naproxen 500 Mg Tablet, 500 MG PO BID Prescribed by: PHILIP GILMORE on 06/04/20 1520 Omeprazole 20 Mg Capsule.dr, 20 MG PO DAILY, (Reported) Ondansetron 4 Mg Tab.rapdis, 4 MG PO Q4H PRN for NAUSEA/VOMITING-1ST LINE, (Reported) Ondansetron 8 Mg Tab.rapdis, 8 MG PO Q6H PRN for NAUSEA/VOMITING . Prescribed by: PHILIP GILMORE on 08/28/212105 Oxybutynin Chloride 5 Mg Tablet, 5 MG PO BID, (Reported) Prednisone 20 Mg Tab, 40 MG PO DAILY Prescribed by: ANDRE LORD on 08/01/172053 Pregabalin 75 Mg Capsule, 75 MG PO BID, (Reported) Ranitidine HCl 150 Mg Tablet, 150 MG PO BID, (Reported) Simvastatin 40 Mg Tablet, 40 MG PO DAILY, (Reported) Simvastatin 40 Mg Tablet, 40 MG PO DAILY, (Reported) Simvastatin 40 Mg Tablet, 40 MG PO HS Prescribed by: OSCAR BURNS on 05/30/21 0728 Past Medical/Social/Family Hx Immunizations Up To Date First/Initial COVID19 Vaccinat: N/A Second COVID19 Vaccination Mariano: N/A Tetanus Booster (TDap): Unknown Current Status status: Unable to obtain Communicates: Verbally Primary Language: [place] Citizen Preferred Spoken Language: [place] Citizen Is interpretation needed?: No Review of Systems Constitutional: see HPI Focused Exam Height, Weight, BMI Height: 5'8.00" Weight: 220lbs. oz. 99.784734ci; 32.00 BMI Method:Stated Time of Focused Exam: 02:55 Exam Exam Patient acknowledged, consented, and participated in this virtual visit which was conducted using real time audio/video Vital Signs Date Time Temp Pulse Resp B/P (MAP) Pulse Ox O2 Delivery O2 Flow Rate FiO2 10/03/21 01:15 94 Nasal Cannula 2.00 10/03/21 01:12 35.9 64 14 80/55 (63) 94 Room Air 10/03/21 01:12 35.9 64 14 80/55 94 Room Air I & O 10/03/21 07:00 Intake Total 2800 ml Balance 2800 ml Height & Weight Height: 5'8.00" Weight: 220lbs. oz. 99.297956qz; 32.00 BMI Method:Stated General Appearance: No Apparent Distress Respiratory: Normal Breath Sounds, No Accessory Muscle Use, No Respiratory Distress Cardiovascular: Regular Rate, Rhythm, No Murmur Capillary Refill: Less Than 3 Seconds Results Lab Laboratory Tests 10/03/21 01:15 Assessment/Plan Assessment/Plan A/P 1. Acute hypoxemic hypercarbic resp failure in the context of probable overdose -continue to monitor mental status -may need to repeat abg 2. Overdose: unclear agent/ probable synthetic opiate 3. ID c diff considered/ flagyl. 4. dvt prophylaxis labs/ notes reviewed; pt will be visualized once in the room DULCE MENDOZA MD Oct 03, 2021 06:21
[2021-10-03 06:44] LABS: ALBUMIN 3.4 GM/DL (3.2-4.5); CHLORIDE 106 MMOL/L (98-107); SODIUM 137 MMOL/L (135-145)
--- NOTE | 2021-10-03 06:44 | Diagnostic Imaging Report ---
EXAMINATION: CT head and CT cervical spine without contrast. TECHNIQUE: Multiple contiguous axial images were obtained through the brain and cervical spine without the use of intravenous contrast. Sagittal and coronal reformations through the cervical spine were then performed. All CT scans use one or more of the following dose optimizing techniques: automated exposure control, MA and/or KvP adjustment based on patient size and exam type or iterative reconstruction. HISTORY: Head and neck pain after fall COMPARISON: 10/28/2019 FINDINGS: HEAD: The ventricles and sulci are normal. No abnormal attenuation of brain parenchyma is present. No acute intracranial hemorrhage or abnormal extra-axial fluid collections are present. Calcification of the intracranial ICAs. No hyperdense vessel. The calvarium is intact. The mastoid air cells are clear. The visualized paranasal sinuses are clear. The orbits are normal. C-SPINE: Vertebral body height and alignment are preserved. No acute fracture, dislocation, or destructive osseous process. No significant facet hypertrophy. No significant central canal or neuroforaminal stenosis. The paraspinous soft tissues are normal. The visualized thyroid gland is normal. Emphysematous changes of the lung apices. IMPRESSION: 1. No acute intracranial abnormality. 2. No cervical spine fracture. 3. Agree with preliminary interpretation. Dictated by: Dictated on workstation # [id number]
--- NOTE | 2021-10-03 06:44 | Diagnostic Imaging Report ---
EXAMINATION: CT chest, abdomen and pelvis with intravenous contrast. TECHNIQUE: Multiple contiguous axial images were obtained through the chest, abdomen and pelvis after the uneventful administration of intravenous contrast. All CT scans use one or more of the following dose optimizing techniques: automated exposure control, MA and/or KvP adjustment based on patient size and exam type or iterative reconstruction. HISTORY: Chest and abdominal pain after fall COMPARISON: 08/28/2021 FINDINGS: Thyroid: The visualized thyroid gland is normal. Mediastinum: Heart size is normal without significant pericardial effusion. The aorta is normal in caliber. No suspicious lymphadenopathy. Lungs and airways: There are background emphysematous changes in the lungs. There is atelectasis within the dependent lungs. Increased opacities in the lingula. No pleural effusion or pneumothorax. The airways are normal. Solid organs: The liver is normal without focal lesion. The gallbladder is surgically absent. There is no biliary ductal dilation. Pancreas is normal. Spleen is normal. Adrenal glands are normal. There is redemonstrated mildly hyperdense right renal cortical lesion measuring 1.4 cm. No hydronephrosis. Bowel: The stomach and small bowel are normal without obstruction. There is scattered colonic diverticulosis. No findings of acute appendicitis. There is wall thickening of the descending colon. Peritoneum: There is no intraperitoneal free fluid or free air. No suspicious lymphadenopathy. Vasculature: Calcification of the aorta without aneurysm. Musculoskeletal: Surgical degenerative changes of the spine without suspicious osseous lesion or compression fracture. Cortical irregularity seen along the lateral left 6th rib. Pelvis: The uterus is surgically absent. No adnexal mass. Urinary bladder is decompressed with a Jimenez catheter. IMPRESSION: 1. Wall thickening of the descending colon which could be seen with infectious or inflammatory colitis. 2. Colonic diverticulosis. 3. A 1.4 cm mildly hyperdense right renal cortical lesion. If needed further evaluate with dedicated MRI of the abdomen renal mass protocol. 4. Questionable lateral left 6th rib fracture with underlying atelectasis or contusion in the lingula. 5. Agree with preliminary interpretation. Dictated by: Dictated on workstation # [id number]
[2021-10-03 06:45] LABS: CALCIUM 7.9 MG/DL (8.5-10.1)
[2021-10-03 06:46] LABS: GLUCOSE 119 MG/DL (70-105); TOTAL PROTEIN 5.3 GM/DL (6.4-8.2)
[2021-10-03 06:47] LABS: CARBON DIOXIDE 18 MMOL/L (21-32)
[2021-10-03 06:48] LABS: BILIRUBIN,TOTAL 0.3 MG/DL (0.1-1.0)
[2021-10-03 06:50] LABS: ALKALINE PHOSPHATASE 80 U/L (40-136); CREATININE SERUM 0.74 MG/DL (0.60-1.30); GFR ESTIMATED 93
[2021-10-03 06:51] LABS: BUN/CREATININE RATIO 12
[2021-10-03 06:53] LABS: ALANINE AMINOTRANSFERASE 20 U/L (0-55); SALICYLATE < 5.0 MG/DL (5.0-20.0)
--- NOTE | 2021-10-03 06:55 | Diagnostic Imaging Report ---
EXAMINATION: CT thoracic and lumbar spine without contrast. TECHNIQUE: Multiple contiguous axial images were obtained through the thoracic and lumbar spine without the use of intravenous contrast. Sagittal and coronal reformations were then performed. All CT scans use one or more of the following dose optimizing techniques: automated exposure control, MA and/or KvP adjustment based on patient size and exam type or iterative reconstruction. HISTORY: Back pain after fall COMPARISON: 01/10/2021 FINDINGS: The alignment of the thoracic and lumbar spine is normal. Postsurgical changes from L3 through S1 spinal fusion and laminectomy. Vertebral body heights are normal and no fracture is seen. There is multilevel facet hypertrophy. Disk heights are normal. There is no spinal canal stenosis. Limited views of the soft tissues show no abnormality. Vascular calcifications of the aorta without aneurysm. Prominent posterior forming osteophyte at T12-L1. IMPRESSION: 1. Degenerative changes of the thoracic and lumbar spine without acute osseous abnormality. 2. Agree with preliminary interpretation. Dictated by: Dictated on workstation # [id number]
--- NOTE | 2021-10-03 07:23 | Diagnostic Imaging Report ---
EXAMINATION: Pelvis radiograph EXAM DATE: 10/03/2021 COMPARISON: 10/03/2021 HISTORY: Pelvic pain TECHNIQUE: Single views of the pelvis FINDINGS: There is no acute fracture, dislocation, or destructive osseous process. The joint spaces are normal. The soft tissues are normal. IMPRESSION: 1. No acute osseous abnormality of the visualized pelvis. Dictated by: Dictated on workstation # [id number]
[2021-10-03 07:45] VITALS: BP 137/78
[2021-10-03 08:00] VITALS: BP 151/86
[2021-10-03] MEDS ORDERED: metroNIDAZOLE 500 MG/100 ML IVPB (PRE-MIX) IV SCH (08:05)
[2021-10-03] MEDS ORDERED: NOREPINEPHRINE 8 MG/250 ML 250 ML IV SCH (08:15)
[2021-10-03] MEDS ORDERED: EPINEPHrine 1 MG INJECTION 4 MG in NS (IVPB) 248 ML IV SCH (08:15)
[2021-10-03] MEDS ORDERED: LACTATED RINGERS 1,000 ML IV SCH ×2 (08:15→10:00)
[2021-10-03] MEDS ORDERED: VASOPRESSIN INJECTION 20 UNIT in NS (IVPB) 100 ML IV SCH (08:15)
[2021-10-03] MEDS: inSUlin ASPART (NovoLOG) 1 UNIT/0.01 ML (CHARGE PER UNIT) SC SCH ×2 (09:25→12:34)
[2021-10-03] MEDS ORDERED: CHOL-34 PO (11:43)
[2021-10-03] MEDS ORDERED: VILA20TA PO (11:43)
[2021-10-03] MEDS ORDERED: HYDR50CA3 PO (11:43)
[2021-10-03] MEDS ORDERED: CEFEPIME 1,000 MG/NS 50 ML IVPB IV SCH ×2 (12:00)
--- NOTE | 2021-10-03 12:02 | Short Stay Summary ---
HPI History of Present Illness: 61 yo female states she was feeling strange and tired and tried to go to the bathroom and fell and had a bowel movement, reports she tried to get herself up which is difficult to history of back surgery and she called EMS due to this. Per EMS, she had very low BP on arrival and was minimally responsive. In ER she was lethargic but protecting airway. She is not sure why this happened, states she did not intentionally take any extra medications, and that she has her meds in a bubble pack. When asked about a bottle of methocarbamol mentioned by EMS, she says that just got filled and wasn't in her pack. She denies feeling sick the week leading up to this, but she was treated for C diff mid-August and had gotten better before she had the loose stool last night. She says she feels like her usual self, and stead on her feet and wants to go home. Source: patient Date seen by provider: Oct 03, 2021 Time Seen by Provider: 08:45 Attending Physician Marta Loja MD PCP Center/[facility] [place] Consult Date of Admission Oct 03, 2021 at 04:45 Home Medications Home Medications Reviewed patient Home Medication Reconciliation performed by pharmacy medication reconciliations automobile technician and/or nursing. Patients Allergies have been reviewed. Allergies Coded Allergies: Influenza Virus Vaccines (Verified Allergy, Unknown, 08/26/19) tramadol (Unverified Allergy, Unknown, 11/22/16) Uncoded Allergies: PNEUMONIA SHOT (Allergy, Unknown, 11/22/16) MOI-Xypikn-Dlmypy Hx Patient Social History Smoking Status: Current Everyday Smoker 2nd Hand Smoke Exposure: Yes Alcohol Use?: No Substance type: Other (History of overdose with benzodiazepines and opiates) Have you traveled recently?: Unable to obtain Immunizations Up To Date Tetanus Booster (TDap): Unknown Influenza Vaccine Up-to-Date: No; Not Current First/Initial COVID19 Vaccinat: N/A Second COVID19 Vaccination Mariano: N/A Third COVID19 Vaccination Date: N/A Past Medical History PMHx: DMII Chronic back pain Anxiety HLD HTN COPD Depression GERD SurgHx: Tonsillectomy Hysterectomy with BSO Left foot orthopedic surgery Spinal surgery Family Medical History Significant Family History: Cancer (mother age 46), CAD Under 55 Years Old (father), Diabetes (father, age 40) Review of Systems ([facility]) Constitutional: No fever Respiratory: No cough, No short of breath Gastrointestinal: No abdominal pain, No constipation, No diarrhea, No vomiting Musculoskeletal: back pain Psychiatric/Neurological: Depressed (stressors at home) Reviewed Test Results Reviewed Test Results Lab Laboratory Tests Test 10/03/21 01:15 10/03/21 01:29 10/03/21 01:40 10/03/21 03:10 Range/Units White Blood Count 9.4 4.3-11.0 10^3/uL Red Blood Count 3.70 L 3.80-5.11 10^6/uL Hemoglobin 12.5 11.5-16.0 g/dL Hematocrit 36 35-52 % Mean Corpuscular Volume 97 80-99 fL Mean Corpuscular Hemoglobin 34 25-34 pg Mean Corpuscular Hemoglobin Concent 35 32-36 g/dL Red Cell Distribution Width 12.0 10.0-14.5 % Platelet Count 323 130-400 10^3/uL Mean Platelet Volume 9.5 9.0-12.2 fL Immature Granulocyte % (Auto) 0 % Neutrophils (%) (Auto) 48 42-75 % Lymphocytes (%) (Auto) 44 12-44 % Monocytes (%) (Auto) 5 0-12 % Eosinophils (%) (Auto) 1 0-10 % Basophils (%) (Auto) 0 0-10 % Neutrophils # (Auto) 4.5 1.8-7.8 10^3/uL Lymphocytes # (Auto) 4.2 H 1.0-4.0 10^3/uL Monocytes # (Auto) 0.5 0.0-1.0 10^3/uL Eosinophils # (Auto) 0.1 0.0-0.3 10^3/uL Basophils # (Auto) 0.0 0.0-0.1 10^3/uL Immature Granulocyte # (Auto) 0.0 0.0-0.1 10^3/uL Erythrocyte Sedimentation Rate 16 0-30 MM/HR Sodium Level 129 L 135-145 MMOL/L Potassium Level 3.8 3.6-5.0 MMOL/L Chloride Level 97 L 98-107 MMOL/L Carbon Dioxide Level 17 L 21-32 MMOL/L Anion Gap 15 H 5-14 MMOL/L Blood Urea Nitrogen 10 7-18 MG/DL Creatinine 0.82 0.60-1.30 MG/DL Estimat Glomerular Filtration Rate 82 BUN/Creatinine Ratio 12 Glucose Level 128 H 70-105 MG/DL Calcium Level 9.0 8.5-10.1 MG/DL Corrected Calcium 9.0 8.5-10.1 MG/DL Magnesium Level 1.9 1.6-2.4 MG/DL Total Bilirubin 0.4 0.1-1.0 MG/DL Aspartate Amino Transf (AST/SGOT) 24 5-34 U/L Alanine Aminotransferase (ALT/SGPT) 22 0-55 U/L Alkaline Phosphatase 90 40-136 U/L Ammonia 35 H 11-32 UMOL/L Total Creatine Kinase 70 29-168 U/L Creatine Kinase MB 1.2 <6.6 NG/ML Myoglobin 52.5 10.0-92.0 NG/ML Troponin I < 0.028 <0.028 NG/ML C-Reactive Protein High Sensitivity 0.20 0.00-0.50 MG/DL Total Protein 6.2 L 6.4-8.2 GM/DL Albumin 4.0 3.2-4.5 GM/DL Amylase Level 144 H 25-125 U/L Lipase 70 8-78 U/L TSH [place] Testing 1.83 0.35-4.94 UIU/ML Serum Test, Qualitative NEGATIVE NEGATIVE Acetaminophen Level < 10 L 10-30 UG/ML Serum Alcohol < 10 <10 MG/DL Prothrombin Time 15.2 H 12.2-14.7 SEC INR Comment 1.2 0.8-1.4 Activated Partial Thromboplast Time 40 H 24-35 SEC Influenza Type A (RT-PCR) Not Detected Not Detecte Influenza Type B (RT-PCR) Not Detected Not Detecte SARS-CoV-2 RNA (RT-PCR) Not Detected Not Detecte Urine Color YELLOW Urine Clarity CLEAR Urine pH 5.5 5-9 Urine Specific Agu[place] <=1.005 1.016-1.022 Urine Protein NEGATIVE NEGATIVE Urine Glucose (UA) NEGATIVE NEGATIVE Urine Ketones NEGATIVE NEGATIVE Urine Nitrite NEGATIVE NEGATIVE Urine Bilirubin NEGATIVE NEGATIVE Urine Urobilinogen 0.2 < = 1.0 MG/DL Urine Leukocyte Esterase NEGATIVE NEGATIVE Urine RBC (Auto) NEGATIVE NEGATIVE Urine RBC NONE /HPF Urine WBC NONE /HPF Urine Squamous Epithelial Cells NONE /HPF Urine Crystals NONE /LPF Urine Bacteria NEGATIVE /HPF Urine Casts NONE /LPF Urine Mucus NEGATIVE /LPF Urine Culture Indicated NO Urine Opiates Screen NEGATIVE NEGATIVE Urine Oxycodone Screen NEGATIVE NEGATIVE Urine Methadone Screen NEGATIVE NEGATIVE Urine Propoxyphene Screen NEGATIVE NEGATIVE Urine Barbiturates Screen NEGATIVE NEGATIVE Ur Tricyclic Antidepressants Screen NEGATIVE NEGATIVE Urine Phencyclidine Screen NEGATIVE NEGATIVE Urine Amphetamines Screen NEGATIVE NEGATIVE Urine Methamphetamines Screen NEGATIVE NEGATIVE Urine Benzodiazepines Screen NEGATIVE NEGATIVE Urine Cocaine Screen NEGATIVE NEGATIVE Urine Cannabinoids Screen NEGATIVE NEGATIVE Blood Gas Puncture Site RIGHT RADIAL Blood Gas Patient Temperature 36.8 Arterial Blood pH 7.29 *L 7.37-7.43 Arterial Blood Partial Pressure CO2 43 35-45 MMHG Arterial Blood Partial Pressure O2 61 L 79-93 MMHG Arterial Blood HCO3 20 L 23-27 MMOL/L Arterial Blood Total CO2 21.6 21.0-31.0 MMOL/L Arterial Blood Oxygen Saturation 94-100 % Arterial Blood Base Excess -5.1 L -2.5-2.5 MMOL/L Blue Test POSITIVE Blood Gas Ventilator Setting NO Blood Gas Inspired Oxygen 2 Test 10/03/21 05:24 10/03/21 06:20 10/03/21 09:18 10/03/21 12:13 Range/Units Blood Gas Puncture Site RIGHT RADIAL Blood Gas Patient Temperature 36.3 Arterial Blood pH 7.31 *L 7.37-7.43 Arterial Blood Partial Pressure CO2 44 35-45 MMHG Arterial Blood Partial Pressure O2 97 H 79-93 MMHG Arterial Blood HCO3 22 L 23-27 MMOL/L Arterial Blood Total CO2 23.2 21.0-31.0 MMOL/L Arterial Blood Oxygen Saturation 98 94-100 % Arterial Blood Base Excess -3.5 L -2.5-2.5 MMOL/L Blue Test NEGATIVE Blood Gas Ventilator Setting NO Blood Gas Inspired Oxygen 2 Sodium Level 137 135-145 MMOL/L Potassium Level 4.0 3.6-5.0 MMOL/L Chloride Level 106 98-107 MMOL/L Carbon Dioxide Level 18 L 21-32 MMOL/L Anion Gap 13 5-14 MMOL/L Blood Urea Nitrogen 9 7-18 MG/DL Creatinine 0.74 0.60-1.30 MG/DL Estimat Glomerular Filtration Rate 93 BUN/Creatinine Ratio 12 Glucose Level 119 H 70-105 MG/DL Lactic Acid Level 1.70 0.50-2.00 MMOL/L Calcium Level 7.9 L 8.5-10.1 MG/DL Corrected Calcium 8.4 L 8.5-10.1 MG/DL Total Bilirubin 0.3 0.1-1.0 MG/DL Aspartate Amino Transf (AST/SGOT) 19 5-34 U/L Alanine Aminotransferase (ALT/SGPT) 20 0-55 U/L Alkaline Phosphatase 80 40-136 U/L Total Protein 5.3 L 6.4-8.2 GM/DL Albumin 3.4 3.2-4.5 GM/DL Salicylates Level < 5.0 L 5.0-20.0 MG/DL Glucometer 93 96 70-110 MG/DL Radiology 10/03/21 CXR no acute findings 10/03/21 CT chest/abdomen : "IMPRESSION: 1. Wall thickening of the descending colon which could be seen with infectious or inflammatory colitis. 2. Colonic diverticulosis. 3. A 1.4 cm mildly hyperdense right renal cortical lesion. If needed further e valuate with dedicated MRI of the abdomen renal mass protocol. 4. Questionable lateral left 6th rib fracture with underlying atelectasis or contusion in the lingula." 10/03/21 Head/neck CT : "IMPRESSION: 1. No acute intracranial abnormality. 2. No cervical spine fracture." 10/03/21 Thoracic/lumbar Spine CT : "IMPRESSION: 1. Degenerative changes of the thoracic and lumbar spine without acute osseous abnormality." 10/03/21 Pelvic x-ray: "IMPRESSION: 1. No acute osseous abnormality of the visualized pelvis." Physical Exam-([facility]) Physical Exam Vital Signs VS - Last 72 Hours, by Label 10/03/21 10/03/21 10/03/21 10/03/21 01:12 01:12 01:15 07:14 Temp 35.9 35.9 36.3 Pulse 64 64 76 Resp 14 14 14 B/P (MAP) 80/55 80/55 (63) 135/78 Pulse Ox 94 94 94 100 O2 Delivery Room Air Room Air Nasal Cannula Nasal Cannula O2 Flow Rate 2.00 2.00 10/03/21 10/03/21 10/03/21 10/03/21 07:45 07:45 07:45 08:00 Temp 36.8 Pulse 79 79 80 Resp 22 22 B/P (MAP) 137/78 137/78 (97) Pulse Ox 98 98 O2 Delivery Room Air Nasal Cannula O2 Flow Rate 1.00 10/03/21 10/03/21 10/03/21 10/03/21 08:00 08:00 08:15 08:30 Pulse 80 82 75 66 Resp 23 23 12 13 B/P (MAP) 151/86 151/86 (107) 145/100 150/86 Pulse Ox 97 97 98 97 O2 Delivery Room Air Nasal Cannula Room Air Room Air O2 Flow Rate 1.00 10/03/21 10/03/21 10/03/21 10/03/21 08:43 09:00 09:03 09:30 Pulse 73 67 Resp 19 12 B/P (MAP) 160/92 155/90 Pulse Ox 98 97 98 O2 Delivery Nasal Cannula Room Air Nasal Cannula Room Air O2 Flow Rate 1.00 1.00 10/03/21 10/03/21 10/03/21 10/03/21 10:00 10:30 11:00 11:30 Pulse 77 90 71 78 Resp 18 30 11 24 B/P (MAP) 154/88 158/87 143/88 128/81 Pulse Ox 96 96 99 97 O2 Delivery Room Air Room Air Room Air Room Air Capillary Refill : Less Than 3 Seconds General Appearance: no apparent distress Eyes: Bilateral Eye EOMI HEENT: PERRL/EOMI Respiratory: lungs clear, normal breath sounds Cardiovascular: regular rate, rhythm, no murmur Gastrointestinal: normal bowel sounds, non tender, soft Extremities: no pedal edema Neurologic/Psychiatric: bilingual customer service II-XII nml as tested, normal mood/affect, oriented x 3; No motor weakness Skin: normal color, warm/dry Short Stay Diagnosis Discharge Diagnosis-Short Stay Admission Diagnosis See problem list Final Discharge Diagnosis See problem list Conclusion Plan See problem list Was the Problem List Reviewed?: Yes Assessment/Plan Assessment/Plan Admission Status: Observation (1) Altered mental status Status: Resolved Assessment & Plan: Suspected possibly secondary to excess Robaxin, but unable to verify. CT head unremarkable, troponin neg and no abnormal rhythms overnight, mental status improved overnight. Qualifiers: Qualified Codes: R40.0 - Somnolence (2) Hyponatremia Status: Resolved Assessment & Plan: Hyponatremic on admission, normal on day of d/c. (3) Acidosis Status: Acute Assessment & Plan: Uncertain etiology, pH low with normal pCO2 and normal lactic acid, did have elevated AG on admit, resolved at d/c. (4) COPD (chronic obstructive pulmonary disease) Status: Chronic Assessment & Plan: No evidence of acute exacerbation. (5) Depression Status: Chronic Assessment & Plan: Resumed home meds on d/c. Qualifiers: (6) Anxiety Status: Acute (7) Non-insulin dependent type 2 diabetes mellitus Status: Chronic (8) Essential (primary) hypertension Status: Chronic (9) Colon wall thickening Status: Acute Assessment & Plan: Stool neg for C diff this admission, no further diarrhea after admission, stool cultures pending. (10) Right renal mass Status: Acute Assessment & Plan: Uncertain etiology, may need further work-up outpatient, will defer to primary (11) Suspected fracture of rib of left side Status: Acute Assessment & Plan: Possible 6th rib fracture with pulmonary contusion on CT, no respiratory distress, monitor. Qualifiers: Qualified Codes: R29.898 - Other symptoms and signs involving the musculoskeletal system MARTA LOJA MD Oct 03, 2021 12:02
[2021-10-03] MEDS ORDERED: VANCOMYCIN 1250 MG/NS 250 ML IVPB IV SCH ×2 (19:00)
[2021-10-04] MEDS ORDERED: MAGNESIUM 1 GM/100 ML IVPB 100 ML IV SCH (06:00)
[2021-10-04] MEDS ORDERED: KCL 20 MEQ TAB (K-DUR) PO SCH (06:00)
[2021-10-04] MEDS ORDERED: POTASSIUM CL 10MEQ/50ML IVPB 50 ML IV SCH (06:00)
== END 2021-10-03 13:58 | disposition home or self-care (01) | DRG 917 ==
LOC: EDUNIT# 01:10 → ER 01:12 → ICU 04:45 → EDLOC 04:45
PROVIDERS: ADMIT Family Medicine; ATTEND Family Medicine
DX: T42.8X1A Poisoning by antiparkinsonism drugs and other central muscle-tone depressants, accidental (unintentional), initial encounter (principal); J96.01 Acute respiratory failure with hypoxia; J96.02 Acute respiratory failure with hypercapnia; S22.32XA Fracture of one rib, left side, initial encounter for closed fracture; E87.2 Acidosis; E87.1 Hypo-osmolality and hyponatremia; Z79.82 Long term (current) use of aspirin; Z79.01 Long term (current) use of anticoagulants; Z79.899 Other long term (current) drug therapy; J44.9 Chronic obstructive pulmonary disease, unspecified; E11.9 Type 2 diabetes mellitus without complications; E78.00 Pure hypercholesterolemia, unspecified; I10 Essential (primary) hypertension; G43.909 Migraine, unspecified, not intractable, without status migrainosus; K21.9 Gastro-esophageal reflux disease without esophagitis; G89.29 Other chronic pain; M54.9 Dorsalgia, unspecified; F41.9 Anxiety disorder, unspecified; F32.A Depression, unspecified; E66.01 Morbid (severe) obesity due to excess calories; Z68.32 Body mass index [BMI] 32.0-32.9, adult; Z20.822 Contact with and (suspected) exposure to COVID-19; N28.89 Other specified disorders of kidney and ureter; K63.89 Other specified diseases of intestine; W18.30XA Fall on same level, unspecified, initial encounter
CPT/HCPCS: 36415; 51702; 70450; 71045; 71260; 72125; 72128; 72131; 72170; 74177; 80053; 80306; 80320; 80329; 81000; 82140; 82150; 82550; 82553; 82805; 82947; 83605; 83690; 83735; 83874; 84443; 84484; 84703; 85025; 85610; 85652; 85730; 86141; 87015; 87040; 87045; 87046; 87324; 87449; 87636; 87899; 93005; 93041; 99291; G0378

== ENCOUNTER → 2021-10-26 | Outpatient (CLI) | payer MEDICARE, MEDICAID ==
[~2021-10-26] MED LIST changes: +BUPR-105 PO; -BUPR150T14 PO; +CHOL-34 PO; +GADOTERATE 0.5 MMOL/ML (CLARISCAN) 20 ML VIAL IV ONE; +HYDR50CA3 PO; +VILA20TA PO
--- NOTE | 2021-10-26 12:28 | Diagnostic Imaging Report ---
EXAMINATION: MRI of the abdomen with and without contrast. TECHNIQUE: Multiplanar, multisequence MR images of the abdomen were obtained with and without intravenous contrast. HISTORY: Renal lesion. COMPARISON: None available. FINDINGS: Liver: No suspicious liver lesions. No steatosis. No surface nodularity. Ducts: No biliary ductal dilation. Gallbladder: Normal. Pancreas: Normal. Spleen: Normal. Adrenals: Normal. Kidneys: There is a 1.4 cm T2 hyperintense and T1 intermediate right renal lesion without contrast enhancement in keeping with a proteinaceous or hemorrhagic cyst. No hydronephrosis. Bowel: Normal. Other: No lymphadenopathy. Visualized portions of the thorax are normal. No suspicious osseus lesions. IMPRESSION: 1. The right renal lesion signal characteristics of a proteinaceous or hemorrhagic cyst. No enhancement is seen to indicate a neoplasm. No follow-up needed. Dictated by: Dictated on workstation # [id number]
== END ==
LOC: RAD 09:07
PROVIDERS: ATTEND Pediatrics
DX: N28.89 Other specified disorders of kidney and ureter (principal)
CPT/HCPCS: 74183

== ENCOUNTER 2021-10-28 13:42 | Inpatient (IN) | payer MEDICARE, MEDICAID ==
[2021-10-28] VITALS (7 sets, daily range): BP systolic 100–136; BP diastolic 50–89
[~2021-10-28] VITALS: Ht 172.7 cm; Wt 99.9 kg
[~2021-10-28 13:42] MED LIST changes: -GADOTERATE 0.5 MMOL/ML (CLARISCAN) 20 ML VIAL IV ONE
[2021-10-28] MEDS ORDERED: KETOROLAC 30 MG/ML VIAL IVP STA (13:49)
--- NOTE | 2021-10-28 13:57 | ED General ---
General Chief Complaint: Chest Pain Stated Complaint: CHEST PAIN/SOA Source of Information: Patient (LIMITED HISTORIAN), EMS, Old Records History of Present Illness Date Seen by Provider: October 28, 2021 Time Seen by Provider: 13:45 Initial Comments PT ARRIVES VIA EMS FROM HOME AT [facility] PT CALLED EMS FOR C/O MID STERNAL CHEST PAIN, BUT NOW PAIN IS ONLY IN LEFT FLANK STATES SHE HAD JUST WOKE UP AND HAD THIS PAIN AND IMMEDIATELY CALLED EMS SOON SHE WOKE UP EMS GAVE 324 MG ASPIRIN, AND PT SHOWED SINUS TACH WITH OTHERWISE NORMAL EKG PT ARRIVES LITERALLY SCREAMING AND WAILING AND THRASHING ALL OVER--NOT TALKING, ONLY SCREAMING/WAILING. DENIES CHEST PAIN NOW DENIES SHORTNESS OF BREATH DENIES NAUSEA/VOMITING/DIARRHEA DENIES URINARY SYMPTOMS NO COUGH DENIES HISTORY OF SIMILAR PT WAS ADMITTED 10/03/21 --HAD ARRIVED VIA EMS AT THAT TIME AND WAS UNRESPONSIVE, AND WAS HIGHLY SUSPECTED THAT SHE HAD OVERDOSED ON ROBAXIN. 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--ESPECIALLY OPIATES AND BENZODIAZEPINES PT SEEN HERE 08/28/21 WITH DX OF DIVERTICULITIS PCP: JANAK-NATALIIA Allergies and Home Medications Allergies Coded Allergies: Influenza Virus Vaccines (Verified Allergy, Unknown, 10/28/21) tramadol (Unverified Allergy, Unknown, 10/28/21) Uncoded Allergies: PNEUMONIA SHOT (Allergy, Unknown, 11/22/16) Patient Home Medication List Home Medication List Reviewed: Yes Albuterol Sulfate (Proventil Hfa) 6.7 Gm Hfa.aer.ad, 2 PUFF IH Q4H PRN for SHORTNESS OF BREATH Prescribed by: ANDRE LORD on 08/01/172053 Aspirin (Aspirin EC) 81 Mg Tablet.dr, 81 MG PO DAILY, (Reported) Entered as Reported by: DESMOND WATTS on 08/17/19 1126 Budesonide/Formoterol Fumarate (Symbicort 160-4.5 Mcg Inhaler) 10.2 Gm Hfa.aer.ad, 2 PUFF IH BID, (Reported) Entered as Reported by: DESMOND WATTS on 08/17/19 1136 Cholecalciferol (Vitamin D3) (Vitamin D3) 25 Mcg Tablet, 25 MCG PO DAILY, (Reported) Entered as Reported by: LUTHER FLEMING on 10/03/21 1143 Gabapentin (Gabapentin) 600 Mg Tablet, 600 MG PO TID PRN for PAIN-MODERATE (5-7) Prescribed by: OSCAR BURNS on 05/30/21 0728 Hydroxyzine Pamoate (Hydroxyzine Pamoate) 50 Mg Capsule, 50 MG PO TID PRN for ANXIETY, (Reported) Entered as Reported by: LUTHER FLEMING on 10/03/21 1143 Lisinopril (Lisinopril) 10 Mg Tablet, 10 MG PO DAILY Prescribed by: OSCAR BURNS on 05/30/21 0728 Meloxicam (Meloxicam) 15 Mg Tablet, 15 MG PO DAILY, (Reported) Entered as Reported by: DESMOND WATTS on 08/17/19 1126 Metformin HCl (Metformin HCl ER) 500 Mg Tab.er.24h, 500 MG PO DAILY, (Reported) Entered as Reported by: DESMOND WATTS on 08/17/19 1126 Omeprazole (Omeprazole) 20 Mg Capsule.dr, 20 MG PO DAILY, (Reported) Entered as Reported by: DESMOND WATTS on 08/17/19 1136 Simvastatin (Simvastatin) 40 Mg Tablet, 40 MG PO DAILY, (Reported) Entered as Reported by: BERTHA MOSES on 06/13/16 1638 Vilazodone Hydrochloride (Viibryd) 20 Mg Tablet, 20 MG PO DAILY, (Reported) Entered as Reported by: LUTHER FLEMING on 10/03/21 1143 Review of Systems Review of Systems Constitutional: no symptoms reported; No fever Respiratory: no symptoms reported; No cough, No short of breath Cardiovascular: see HPI; No edema, No palpitations, No syncope Gastrointestinal: see HPI, other (LEFT FLANK PAIN ) Genitourinary: no symptoms reported Musculoskeletal: see HPI, back pain Skin: no symptoms reported Psychiatric/Neurological: Anxiety Hematologic/Lymphatic: No Symptoms Reported Immunological/Allergic: no symptoms reported Past Gxeqzyo-Lkfpdd-Tcvhcm Hx Patient Social History Tobacco Use?: Yes Tobacco type used: Cigarettes Smoking Status: Current Everyday Smoker Substance use?: Yes Substance type: Opiates/Opioids, Misuse of prescript meds Additional substance use comme: EXTENSIVE HISTORY OF DRUG ABUSE, JUJU RX DRUGS--JUJU OPIATES AND BENZO'S Alcohol Use?: Yes Alcohol Frequency: Once in a while Immunizations Up To Date Tetanus Booster (TDap): Unknown PED Vaccines UTD: Yes First/Initial COVID19 Vaccinat: N/A Second COVID19 Vaccination Mariano: N/A Third COVID19 Vaccination Date: N/A Seasonal Allergies Seasonal Allergies: No Past Medical History Surgery/Hospitalization HX: COPD, bronchitis, diabetes Surgeries: Yes (BACK SURGERY 2017; FOOT SURGERY) Gallbladder, Hysterectomy, Orthopedic, Tonsillectomy, Tubal Ligation Respiratory: Yes (07/2019--PNEUMONIA WITH SEPTIC SHOCK AND INTUBATED. COVID 06/2021--NO [place]. 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 Headaches /Migraines CHORE TENDER History: Menopausal Genitourinary: No Gastrointestinal: Yes (delayed emptying) Gastroesophageal Reflux, Diverticulosis, Gall Bladder Disease Musculoskeletal: Yes (foot surgery; BACK SURGERY) Degenerate Disk Disease, Chronic Back Pain Endocrine: Yes (MORBID OBESITY) Diabetes, Non-Insulin dep HEENT: No Cancer: No Psychosocial: Yes (RX DRUG ABUSE/OVERDOSES) Anxiety, Depression Integumentary: No Blood Disorders: No Family Medical History Cancer, CAD Under 55 Years Old, Diabetes SOCIAL HISTORY: -SMOKES 1 PPD -ETOH--OCCASIONAL USE -DRUGS--EXTENSIVE RX DRUG ABUSE AND MULTIPLE OVERDOSES--JUJU OPIATES AND BENZODIAZEPINES PT ADMITTED 10/03/21 OBTUNDED AND HIGHLY SUSPECTED OVERDOSE OF ROBAXIN AT THAT TIME. PAST SURGICAL HISTORY: -LUMBAR SPINE SURGERY 2017 -FOOT SURGERY -BILATERAL TUBAL LIGATION -HYSTERECTOMY -TONSILLECTOMY -CHOLECYSTECTOMY Physical Exam Vital Signs Vital Signs - First Documented 10/28/21 14:00 Temp 36.9 Pulse 126 Resp 20 B/P (MAP) 106/80 (89) Pulse Ox 94 O2 Delivery Room Air Capillary Refill : Height, Weight, BMI Height: 5'8.00" Weight: 220lbs. oz. 99.260898tt; 32.00 BMI Method:Stated General Appearance: WD/WN, Obese, Other (WAILING, SCREAMING AND THRASHING ALL OVER BED. HOLDING LEFT FLANK AT TIMES. ) Neck: Normal Inspection Respiratory: Chest Non Tender, Normal Breath Sounds, No Accessory Muscle Use, No Respiratory Distress Cardiovascular: No Edema, No Murmur, Tachycardia Gastrointestinal: Soft, Tenderness (DIFFUSE LEFT LATERAL ABDOMEN AND LEFT FLANK TENDERNESS. ) Back: No Vertebral Tenderness, CVA Tenderness (L) Extremity: Normal Capillary Refill, Normal Inspection, Normal Range of Motion, Non Tender, No Calf Tenderness, No Pedal Edema Neurologic/Psychiatric: Alert, Oriented x3, No Motor/Sensory Deficits, repair coil winder II- XII Norm as Tested Skin: Normal Color, Warm/Dry; No Rash Focused Exam Sepsis Stage: Severe Sepsis Possible Source: Pulmonary Lactate Level 10/28/21 14:35: Lactic Acid Level 1.86 Time of Focused Exam: 16:00 Respiratory: Normal Breath Sounds, No Accessory Muscle Use, No Respiratory Distress Cardiovascular: Regular Rate, Rhythm, No Murmur Capillary Refill: Less Than 3 Seconds Skin: normal color, warm/dry Lactic Acid Level Laboratory Tests Test 10/28/21 14:35 Lactic Acid Level 1.86 MMOL/L (0.50-2.00) Within 3hrs of presentation: Admin fluids, Admin ABX, Blood cultures prior to ABX's, Focus exam, Lactate level Progress/Results/Core Measures Suspected Sepsis SIRS Temperature: Pulse: Respiratory Rate: Laboratory Tests 10/28/21 14:01: White Blood Count 35.7*H Blood Pressure / Mean: 10/28/21 14:35: Lactic Acid Level 1.86 Laboratory Tests 10/28/21 14:01: Creatinine 1.00, Platelet Count 247, Total Bilirubin 0.9 10/28/21 14:45: INR Comment 1.1 Results/Orders Lab Results Laboratory Tests Test 10/28/21 14:01 10/28/21 14:28 10/28/21 14:35 10/28/21 14:45 Range/Units White Blood Count 35.7 *H 4.3-11.0 10^3/uL Red Blood Count 3.99 3.80-5.11 10^6/uL Hemoglobin 13.5 11.5-16.0 g/dL Hematocrit 39 35-52 % Mean Corpuscular Volume 98 80-99 fL Mean Corpuscular Hemoglobin 34 25-34 pg Mean Corpuscular Hemoglobin Concent 35 32-36 g/dL Red Cell Distribution Width 12.3 10.0-14.5 % Platelet Count 247 130-400 10^3/uL Mean Platelet Volume 9.2 9.0-12.2 fL Immature Granulocyte % (Auto) 3 % Neutrophils (%) (Auto) 90 H 42-75 % Lymphocytes (%) (Auto) 3 L 12-44 % Monocytes (%) (Auto) 5 0-12 % Eosinophils (%) (Auto) 0 0-10 % Basophils (%) (Auto) 0 0-10 % Neutrophils # (Auto) 32.0 H 1.8-7.8 10^3/uL Lymphocytes # (Auto) 0.9 L 1.0-4.0 10^3/uL Monocytes # (Auto) 1.7 H 0.0-1.0 10^3/uL Eosinophils # (Auto) 0.0 0.0-0.3 10^3/uL Basophils # (Auto) 0.1 0.0-0.1 10^3/uL Immature Granulocyte # (Auto) 1.1 H 0.0-0.1 10^3/uL Neutrophils % (Manual) 88 % Lymphocytes % (Manual) 3 % Monocytes % (Manual) 9 % Blood Morphology Comment NORMAL Erythrocyte Sedimentation Rate 9 0-30 MM/HR Sodium Level 137 135-145 MMOL/L Potassium Level 4.0 3.6-5.0 MMOL/L Chloride Level 105 98-107 MMOL/L Carbon Dioxide Level 18 L 21-32 MMOL/L Anion Gap 14 5-14 MMOL/L Blood Urea Nitrogen 12 7-18 MG/DL Creatinine 1.00 0.60-1.30 MG/DL Estimat Glomerular Filtration Rate 65 BUN/Creatinine Ratio 12 Glucose Level 137 H 70-105 MG/DL Calcium Level 9.6 8.5-10.1 MG/DL Corrected Calcium 9.4 8.5-10.1 MG/DL Magnesium Level 1.6 1.6-2.4 MG/DL Total Bilirubin 0.9 0.1-1.0 MG/DL Aspartate Amino Transf (AST/SGOT) 15 5-34 U/L Alanine Aminotransferase (ALT/SGPT) 18 0-55 U/L Alkaline Phosphatase 87 40-136 U/L Total Creatine Kinase 39 29-168 U/L Creatine Kinase MB 0.4 <6.6 NG/ML Myoglobin 36.4 10.0-92.0 NG/ML Troponin I < 0.028 <0.028 NG/ML C-Reactive Protein High Sensitivity 9.87 H 0.00-0.50 MG/DL Total Protein 7.3 6.4-8.2 GM/DL Albumin 4.2 3.2-4.5 GM/DL Amylase Level 47 25-125 U/L Lipase 23 8-78 U/L Procalcitonin 3.06 H <0.10 NG/ML Serum Alcohol < 10 <10 MG/DL Urine Color YELLOW Urine Clarity CLEAR Urine pH 6.0 5-9 Urine Specific [place] <=1.005 1.016-1.022 Urine Protein NEGATIVE NEGATIVE Urine Glucose (UA) NEGATIVE NEGATIVE Urine Ketones NEGATIVE NEGATIVE Urine Nitrite NEGATIVE NEGATIVE Urine Bilirubin NEGATIVE NEGATIVE Urine Urobilinogen 0.2 < = 1.0 MG/DL Urine Leukocyte Esterase NEGATIVE NEGATIVE Urine RBC (Auto) NEGATIVE NEGATIVE Urine RBC NONE /HPF Urine WBC 2-5 /HPF Urine Squamous Epithelial Cells 0-2 /HPF Urine Renal Epithelial Cells NONE /HPF Urine Crystals NONE /LPF Urine Bacteria FEW H /HPF Urine Casts NONE /LPF Urine Mucus NEGATIVE /LPF Urine Culture Indicated CULTURE PENDING Urine Opiates Screen NEGATIVE NEGATIVE Urine Oxycodone Screen NEGATIVE NEGATIVE Urine Methadone Screen NEGATIVE NEGATIVE Urine Propoxyphene Screen NEGATIVE NEGATIVE Urine Barbiturates Screen NEGATIVE NEGATIVE Ur Tricyclic Antidepressants Screen NEGATIVE NEGATIVE Urine Phencyclidine Screen NEGATIVE NEGATIVE Urine Amphetamines Screen NEGATIVE NEGATIVE Urine Methamphetamines Screen NEGATIVE NEGATIVE Urine Benzodiazepines Screen NEGATIVE NEGATIVE Urine Cocaine Screen NEGATIVE NEGATIVE Urine Cannabinoids Screen NEGATIVE NEGATIVE Lactic Acid Level 1.86 0.50-2.00 MMOL/L Prothrombin Time 14.6 12.2-14.7 SEC INR Comment 1.1 0.8-1.4 Activated Partial Thromboplast Time 39 H 24-35 SEC Micro Results Microbiology 10/28/21 Blood Culture - Final, Complete Streptococcus pneumoniae Staphylococcus epidermidis 10/28/21 Blood Culture - Preliminary, Resulted Streptococcus pneumoniae 10/28/21 Urine Culture - Final, Complete Staphylococcus epidermidis Strep anginosus My Orders Orders - SRUTHI SCHUMACHER DO Ed Iv/Invasive Line Start (10/28/21 13:49) Ekg Tracing (10/28/21 13:49) Monitor-Rhythm Ecg Trace Only (10/28/21 13:49) Alcohol (10/28/21 13:49) Amylase (10/28/21 13:49) Cbc With Automated Diff (10/28/21 13:49) Comprehensive Metabolic Panel (10/28/21 13:49) Drug Screen Stat (Urine) (10/28/21 13:49) Lipase (10/28/21 13:49) Magnesium (10/28/21 13:49) Ua Culture If Indicated (10/28/21 13:49) Troponin I [place] (10/28/21 13:49) Ed Iv/Invasive Line Start (10/28/21 13:49) Lactated Ringers (Lr 1000 Ml Iv Solution (10/28/21 14:00) Ketorolac Injection (Toradol Injection) (10/28/21 13:49) Manual Differential (10/28/21 14:01) Blood Culture (10/28/21 14:16) Urine Culture (10/28/21 14:16) Protime With Inr (10/28/21 14:16) Partial Thromboplastin Time (10/28/21 14:16) Ed Iv/Invasive Line Start (10/28/21 14:16) Ed Iv/Invasive Line Start (10/28/21 14:16) O2 (10/28/21 14:16) Lactic Acid Analyzer (10/28/21 14:16) Creatine Kinase (10/28/21 14:16) Creatine Kinase Mb (10/28/21 14:16) Hs C Reactive Protein (10/28/21 14:16) Procalcitonin (Pct) (10/28/21 14:16) Erythrocyte Sedimentation Rate (10/28/21 14:16) Myoglobin Serum (10/28/21 14:16) Ct [place] Chest/Noang Abd-Pelv W (10/28/21 14:51) Iohexol Injection (Omnipaque 350 Mg/Ml 1 (10/28/21 15:00) Ns (Ivpb) (Sodium Chloride 0.9% Ivpb Bag (10/28/21 15:00) Chest 1 View, Ap/Pa Only (10/28/21 14:56) Orphenadrine Inj (Ed Only) (Norflex Inje (10/28/21 15:00) Diphenhydramine Injection (Benadryl Inje (10/28/21 15:15) Ed Iv/Invasive Line Start (10/28/21 15:16) Ns Iv 1000 Ml (Sodium Chloride 0.9%) (10/28/21 15:30) Cefepime Injection (Maxipime Injection) (10/28/21 16:00) Vancomycin Injection (Vancomycin Injecti (10/28/21 16:00) Ed Iv/Invasive Line Start (10/28/21 15:59) Ed Iv/Invasive Line Start (10/28/21 15:59) Ns Iv 1000 Ml (Sodium Chloride 0.9%) (10/28/21 16:00) Ed Admission (Communication) (10/28/21 16:00) Medications Given in ED Vital Signs/I&O 10/28/21 14:00 Temp 36.9 Pulse 126 Resp 20 B/P (MAP) 106/80 (89) Pulse Ox 94 O2 Delivery Room Air Capillary Refill : Progress Note : Progress Note GIVEN IV FLUIDS AND TORADOL PT CONTINUED TO WAIL AND SCREAM WITH LEFT FLANK PAIN--GIVEN NORFLEX AND BENADRYL WITH SOME IMPROVEMENT IN SYMPTOMS. PT CONTINUED TO WANT "SOMETHING STRONG" FOR PAIN THROUGHOUT ER STAY. ADVISED THAT DUE TO LOW BLOOD PRESSURES, WOULD NOT BE GIVING HER ANYTHING MORE FOR PAIN AT THIS TIME. ON RECEIVING CBC RESULTS WITH ELEVATED WBC, SEPSIS PROTOCOL WAS INITIATED. GIVEN IV FLUIDS AND ANTIBIOTICS NO DETERIORATION IN PT'S CONDITION DURING ER STAY O2 SATS 92-94% ON ROOM AIR. PLACED ON O2 AT 2L/NC--O2 SATS UP TO 98% PT DID HAVE SOME LOW BLOOD PRESSURES, BUT PT CONSTANTLY LAYING ON ARM WITH BP CUFF, REGARDLESS OF WHICH ARM THE CUFF IS AT THE TIME ( CUFF WAS MOVED BACK AND FORTH FROM ARM TO ARM, DEPENDING ON PT'S POSITION, AND CONSTANTLY MOVING ARMS WHEN BLOOD PRESSURE IS BEING READ) PT REMAINED TACHYCARDIC IN 110-130'S NO FEVER NO COUGH NO DYSPNEA NO CHEST PAIN AT TIME OF ADMIT TO FLOOR, BP 108 SYSTOLIC, AND HR 100. O2 SAT 94% ON 2L/NC. ECG Initial ECG Impression Date: October 28, 2021 Initial ECG Impression Time: 13:53 Initial ECG Rate: 133 Initial ECG Rhythm: S.Tach Diagnostic Imaging Comments CXR--PER RADIOLOGIST REPORT AT 1555 FINDINGS: Heart size and pulmonary vasculature are normal. Low lung volumes with mild bibasilar interstitial opacities. No pleural effusion or pneumothorax. The osseous structures are intact. IMPRESSION: Low lung volumes with mild bibasilar interstitial opacities. This can be seen with atelectasis, pulmonary edema or atypical infection. CT CHEST ANGIOGRAM/ ABDOMEN-PELVIS--PER RADIOLOGIST REPORT AT 1555 FINDINGS: Vascular: No filling defects within the pulmonary arteries. Thoracic aorta is normal in caliber. Thyroid: The thyroid is normal. Mediastinum: Heart size is normal without significant pericardial effusion. No suspicious lymphadenopathy. Lungs and airways: There is consolidation within the left lower lobe medially. No pleural effusion or pneumothorax. Mild emphysematous changes in the lung apices. The airways are normal. Solid organs: The liver is normal without focal lesion. The gallbladder is surgically absent. There is no biliary ductal dilation. Pancreas is normal. Spleen is normal. Adrenal glands are normal. The kidneys are normal without hydronephrosis. Bowel: The stomach and small bowel are normal without obstruction. There is scattered colonic diverticulosis. The appendix is normal. Peritoneum: There is no intraperitoneal free fluid or free air. No suspicious lymphadenopathy. Vasculature: Calcification of the aorta without aneurysm. Musculoskeletal: There is no acute fracture. Surgical changes of the lumbar spine. Pelvis: The uterus is surgically absent. No adnexal mass. The urinary bladder is normal. IMPRESSION: 1. Consolidation within the medial left lower lobe concerning for pneumonia. 2. No findings of pulmonary embolus. 3. No acute fracture. 4. No acute abnormality in the abdomen or pelvis. Reviewed: Reviewed by Sd Departure Communication (Admissions) 1604--SPOKE WITH DR. REED, HOSPITALIST FOR [facility], ACCEPTS PT FOR ADMIT. SHE WILL DO ADMIT ORDERS. Impression Primary Impression: Severe sepsis Additional Impressions: LEFT SIDED PNEUMONIA NIDDM HX OF HTN Obesity COPD (chronic obstructive pulmonary disease) Smoker HX OF RX DRUG ABUSE Disposition: ADMITTED INPATIENT Condition: Stable Admissions Decision to Admit Reason: Admit from ER (General) Decision to Admit/Date: October 28, 2021 Time/Decision to Admit Time: 15:55 Departure-Patient Inst. Referrals: [facility] (PCP/Family) Primary Care Physician SRUTHI SCHUMACHER DO October 28, 2021 13:57
[2021-10-28] MEDS ORDERED: LACTATED RINGERS 1,000 ML IV ONE (14:00)
[2021-10-28 14:12] LABS: BASOPHILS # (AUTO) 0.1 10^3/uL (0.0-0.1); BASOPHILS % (AUTO) 0 % (0-10); EOSINOPHILS % (AUTO) 0 % (0-10); HEMATOCRIT 39 % (35-52); HEMOGLOBIN 13.5 g/dL (11.5-16.0); LYMPHOCYTES # (AUTO) 0.9 10^3/uL (1.0-4.0); LYMPHOCYTES % (AUTO) 3 % (12-44); MEAN CORPUSCULAR HEMOGLOBIN 34 pg (25-34); MEAN CORPUSCULAR HGB CONC 35 g/dL (32-36); MEAN CORPUSCULAR VOLUME 98 fL (80-99); MEAN PLATELET VOLUME 9.2 fL (9.0-12.2); MONOCYTES # (AUTO) 1.7 10^3/uL (0.0-1.0); MONOCYTES % (AUTO) 5 % (0-12); NEUTROPHILS % (AUTO) 90 % (42-75); PLATELET COUNT 247 10^3/uL (130-400)
[2021-10-28 14:14] LABS: WHITE BLOOD COUNT 35.7 10^3/uL (4.3-11.0)
[2021-10-28 14:15] LABS: ALBUMIN 4.2 GM/DL (3.2-4.5); CHLORIDE 105 MMOL/L (98-107); SODIUM 137 MMOL/L (135-145)
[2021-10-28 14:16] LABS: CALCIUM 9.6 MG/DL (8.5-10.1)
[2021-10-28 14:17] LABS: AMYLASE 47 U/L (25-125)
[2021-10-28 14:18] LABS: GLUCOSE 137 MG/DL (70-105); TOTAL PROTEIN 7.3 GM/DL (6.4-8.2)
[2021-10-28 14:19] LABS: BILIRUBIN,TOTAL 0.9 MG/DL (0.1-1.0); CARBON DIOXIDE 18 MMOL/L (21-32)
[2021-10-28 14:21] LABS: ALKALINE PHOSPHATASE 87 U/L (40-136); GFR ESTIMATED 65
[2021-10-28 14:22] LABS: BUN/CREATININE RATIO 12
[2021-10-28 14:24] LABS: ALANINE AMINOTRANSFERASE 18 U/L (0-55); MAGNESIUM 1.6 MG/DL (1.6-2.4)
[2021-10-28 14:26] LABS: LIPASE 23 U/L (8-78)
[2021-10-28 14:35] LABS: BILIRUBIN,URINE NEGATIVE (NEGATIVE); CLARITY,URINE CLEAR; COLOR,URINE YELLOW; GLUCOSE, URINE (UA) NEGATIVE (NEGATIVE); KETONES,URINE NEGATIVE (NEGATIVE); LEUKOCYTE ESTERASE ,URINE NEGATIVE (NEGATIVE); NITRITE,URINE NEGATIVE (NEGATIVE); PROTEIN,URINE NEGATIVE (NEGATIVE)
[2021-10-28 14:45] LABS: AMPHETAMINE SCREEN, URINE NEGATIVE (NEGATIVE); BARBITURATE SCREEN URINE NEGATIVE (NEGATIVE); BENZODIAZEPINES SCREEN URINE NEGATIVE (NEGATIVE); CANNABINOID SCREEN, URINE NEGATIVE (NEGATIVE); COCAINE SCREEN URINE NEGATIVE (NEGATIVE); METHADONE STAT NEGATIVE (NEGATIVE); OPIATE SCREEN URINE NEGATIVE (NEGATIVE); OXYCODONE STAT NEGATIVE (NEGATIVE); PROPOXYPHENE STAT NEGATIVE (NEGATIVE); TRICYCLIC ANTIDEPRESSANTS SCRE NEGATIVE (NEGATIVE)
[2021-10-28 14:45] LABS: LYMPHOCYTES % (MANUAL) 3 %; MONOCYTES % (MANUAL) 9 %; NEUTROPHILS % (MANUAL) 88 %; RBC MORPH NORMAL
[2021-10-28 14:46] LABS: BACTERIA,URINE FEW /HPF; SQUAMOUS EPITHELIAL CELL,UR 0-2 /HPF
[2021-10-28 14:53] LABS: CREATINE KINASE MB 0.4 NG/ML (<6.6)
[2021-10-28] MEDS ORDERED: NS 100 ML (IVPB) BAG IV ONE (15:00)
[2021-10-28] MEDS ORDERED: IOHEXOL 350 MG/ML 100 ML (OMNIPAQUE 350) VIAL IV ONE (15:00)
[2021-10-28] MEDS ORDERED: ORPHENADRINE 60 MG/2 ML (NORFLEX) AMP (ED ONLY) IV ONE (15:00)
[2021-10-28 15:05] LABS: INR 1.1 (0.8-1.4); PROTHROMBIN TIME PATIENT 14.6 SEC (12.2-14.7)
[2021-10-28] MEDS ORDERED: diphenhydrAMINE 50 MG/ML INJ (BENADRYL) IVP ONE (15:15)
[2021-10-28] MEDS ORDERED: NS IV 1000 ML 1,000 ML IV SCH ×2 (15:30→16:00)
--- NOTE | 2021-10-28 15:47 | Diagnostic Imaging Report ---
EXAMINATION: Chest 1 view. HISTORY: CP, flank pain COMPARISON: 10/03/2021. FINDINGS: Heart size and pulmonary vasculature are normal. Low lung volumes with mild bibasilar interstitial opacities. No pleural effusion or pneumothorax. The osseous structures are intact. IMPRESSION: Low lung volumes with mild bibasilar interstitial opacities. This can be seen with atelectasis, pulmonary edema or atypical infection. Dictated by: Dictated on workstation # [id number]
--- NOTE | 2021-10-28 15:55 | Diagnostic Imaging Report ---
EXAMINATION: CT angiography of the chest, CT of the abdomen and pelvis. TECHNIQUE: Contrast enhanced thin section helical images were obtained through the chest, abdomen and pelvis with intravenous contrast timed for the optimal opacification of the arterial structures of the chest per CTA protocol. Post-processing, reconstructions and interpretation of angiographic images of the vessels was performed. 3D MIP reconstructions were performed and reviewed. All CT scans use one or more of the following dose optimizing techniques: automated exposure control, MA and/or KvP adjustment based on patient size and exam type or iterative reconstruction. HISTORY: Left rib and flank pain, chest pain. COMPARISON: 10/03/2021. FINDINGS: Vascular: No filling defects within the pulmonary arteries. Thoracic aorta is normal in caliber. Thyroid: The thyroid is normal. Mediastinum: Heart size is normal without significant pericardial effusion. No suspicious lymphadenopathy. Lungs and airways: There is consolidation within the left lower lobe medially. No pleural effusion or pneumothorax. Mild emphysematous changes in the lung apices. The airways are normal. Solid organs: The liver is normal without focal lesion. The gallbladder is surgically absent. There is no biliary ductal dilation. Pancreas is normal. Spleen is normal. Adrenal glands are normal. The kidneys are normal without hydronephrosis. Bowel: The stomach and small bowel are normal without obstruction. There is scattered colonic diverticulosis. The appendix is normal. Peritoneum: There is no intraperitoneal free fluid or free air. No suspicious lymphadenopathy. Vasculature: Calcification of the aorta without aneurysm. Musculoskeletal: There is no acute fracture. Surgical changes of the lumbar spine. Pelvis: The uterus is surgically absent. No adnexal mass. The urinary bladder is normal. IMPRESSION: 1. Consolidation within the medial left lower lobe concerning for pneumonia. 2. No findings of pulmonary embolus. 3. No acute fracture. 4. No acute abnormality in the abdomen or pelvis. Dictated by: Dictated on workstation # [id number]
[2021-10-28] MEDS ORDERED: CEFEPIME INJECTION 1,000 MG in NS (IVPB) 50 ML IV ONE (16:00)
[2021-10-28] MEDS: VANCOMYCIN INJECTION 1,000 MG in NS (IVPB) 250 ML IV SCH ×3 (16:30→18:04)
--- NOTE | 2021-10-28 17:07 | Tele-ICU Progress Note ---
Subjective Date Seen by a Provider: October 28, 2021 Time Seen by a Provider: 16:34 Subjective/Events-last exam This virtual visit was conducted using real time audio/video. Thank you for asking us to see this patient for respiratory insufficiency due to LLL pna and COPD. Recent events: PMH: precription drug abuse, yuriy. opiates and BDps, HTN, HL, GERD, R renal mass, DM2anx., depression, obesity,diverticulitis SH: smoking history: current FH: Non-contributory ROS: lias in HPI. PE: Obese.VSS. O2 sat 98% on 2 LPM HEENT: No obvious masses, adenopathy or JVD. Chest: clear to auscultation. CV: RRR S1 S2 No murmur or added sounds. Abd: Non-tender. Bowel sounds Y. : Unremarkable. Jimenez . TIPPLE TENDER/psychiatric: Grossly intact. No obvious focal findings. Extremities: edema. Capillary refill < 3 seconds. Skin: unremarkable. Results: Elevated WCC 35.7, BG 137. CTAC: No PE, emphysematous changes, LLL consolidation. CXR: hyperinflated, retrocardiac opacification. Available chart/ vitals / labs / images reviewed. Video assessment done using teleICU camera, rest of exam as per RN. A/P: Respiratory insufficiency: Continue present management with O2, abx, IVF. Will add PRN Duonebs. Monitor for increasing oxygenation needs and/or need for intubation. Critical Care: critically ill patient. Will addd Lovenox. Discussed with KIRK Coughlin. Asked RN to reach out to eICU if any questions or concerns later. Time spent with patient/coordination of care with other health professionals (mins): 32 Sepsis Event Evaluation Height, Weight, BMI Height: 5'8.00" Weight: 220lbs. oz. 99.991163is; 31.00 BMI Method:Stated Focused Exam Lactate Level 10/28/21 14:35: Lactic Acid Level 1.86 Time of Focused Exam: 16:00 Lactic Acid Level Laboratory Tests Test 10/28/21 14:35 Lactic Acid Level 1.86 MMOL/L (0.50-2.00) Exam Exam Patient acknowledged, consented, and participated in this virtual visit which was conducted using real time audio/video Vital Signs Date Time Temp Pulse Resp B/P (MAP) Pulse Ox O2 Delivery O2 Flow Rate FiO2 10/28/21 14:00 36.9 126 20 106/80 (89) 94 Room Air Height & Weight Height: 5'8.00" Weight: 220lbs. oz. 99.040398zq; 31.00 BMI Method:Stated General Appearance: WD/WN, Obese, Other (WAILING, SCREAMING AND THRASHING ALL OVER BED. HOLDING LEFT FLANK AT TIMES. ) Neck: Normal Inspection Respiratory: Normal Breath Sounds, No Accessory Muscle Use, No Respiratory Distress Cardiovascular: Regular Rate, Rhythm, No Murmur Capillary Refill: Less Than 3 Seconds Extremity: Normal Capillary Refill, Normal Inspection, Normal Range of Motion, Non Tender, No Calf Tenderness, No Pedal Edema Neurologic/Psychiatric: Alert, Oriented x3, No Motor/Sensory Deficits, dairy and food laboratory assistant II- XII Norm as Tested Skin: Normal Color, Warm/Dry; No Rash Results Lab Laboratory Tests 10/28/21 14:01 Assessment/Plan Assessment/Plan See free text Critical Care: Critically Ill Patient PETEY ARREAGA MD October 28, 2021 17:07
[2021-10-28] MEDS ORDERED: ENOXAPARIN 40 MG/0.4 ML (LOVENOX) SYR SC SCH (17:15)
[2021-10-28] MEDS ORDERED: RT-ALBUTEROL/IPRATROPIUM 3 ML (DUONEB) VIAL INH PRN (17:15)
[2021-10-28] MEDS ORDERED: SENNA W/DOCUSATE (SENOKOT S) TABLET PO PRN (17:30)
[2021-10-28] MEDS ORDERED: MILK OF MAGNESIA 400 MG/5 ML 30 ML UDC PO PRN (17:30)
[2021-10-28] MEDS ORDERED: ANTACID SUSP 30 ML UDC (MYLANTA) PO PRN ×2 (17:30)
[2021-10-28] MEDS ORDERED: polyethylene glycoL POWDER 17 GM (MIRALAX) PACK PO PRN (17:30)
[2021-10-28] MEDS ORDERED: ONDANSETRON 4 MG (ZOFRAN) ORAL DISSOLVE TAB SL PRN (17:30)
[2021-10-28] MEDS ORDERED: D5 1/2 NS 1000 ML IV SOLUTION 1,000 ML IV PRN (17:30)
[2021-10-28] MEDS ORDERED: BISACODYL 10 MG SUPP (DULCOLAX) PR PRN (17:30)
[2021-10-28] MEDS ORDERED: 1/2 NS IV SOLUTION 1,000 ML IV PRN (17:30)
[2021-10-28] MEDS ORDERED: LORazepam INJ 2 MG/ML (ATIVAN) VIAL IM/IV PRN (17:30)
[2021-10-28] MEDS ORDERED: LACTULOSE SYRUP 10GM/15ML (ENULOSE) 30ML UDC PO PRN (17:30)
[2021-10-28] MEDS ORDERED: MELATONIN 3 MG TABLET PO PRN (17:30)
[2021-10-28] MEDS ORDERED: PHARMACY TO DOSE IV SCH (17:30)
[2021-10-28] MEDS ORDERED: ONDANSETRON 4 MG/2 ML (SDV) Z0FRAN IV PRN ×2 (17:30)
[2021-10-28] MEDS ORDERED: diphenhydrAMINE 25 MG TAB (BENADRYL) PO PRN (17:30)
[2021-10-28] MEDS ORDERED: CALCIUM CARBONATE 500 MG (TUMS) TAB.CHEW PO PRN (17:30)
[2021-10-28] MEDS ORDERED: diphenhydrAMINE 50 MG/ML INJ (BENADRYL) IVP PRN (17:30)
[2021-10-28] MEDS ORDERED: LORazepam 1 MG (ATIVAN) TAB PO PRN (17:30)
[2021-10-28] MEDS ORDERED: LORazepam INJ 2 MG/ML (ATIVAN) VIAL IV PRN (17:30)
[2021-10-28] MEDS ORDERED: ONDANSETRON 4 MG (ZOFRAN) ORAL DISSOLVE TAB PO PRN (17:30)
[2021-10-28] MEDS ORDERED: NS IV 1000 ML 1,000 ML ONE (17:50)
[2021-10-28] MEDS ORDERED: HYDROcodone/APAP 5 MG/325 MG (LORTAB) TAB ONE (17:54)
[2021-10-28] MEDS ORDERED: ENOXAPARIN 40 MG/0.4 ML (LOVENOX) SYR ONE (17:55)
[2021-10-28] MEDS: NS IV 1000 ML 1,000 ML IV SCH (18:04)
[2021-10-28] MEDS: HYDROcodone/APAP 5 MG/325 MG (LORTAB) TAB PO PRN ×2 (18:04→20:32)
[2021-10-28] MEDS: ENOXAPARIN 40 MG/0.4 ML (LOVENOX) SYR SC SCH (18:05)
[2021-10-28] MEDS ORDERED: CEFEPIME INJECTION 2,000 MG in NS (IVPB) 50 ML IV SCH (21:00)
[2021-10-28] MEDS: CEFEPIME 1,000 MG/NS 50 ML IVPB IV SCH ×2 (22:19)
[2021-10-28] MEDS: MAGNESIUM OXIDE (MAG-OX)400 MG TAB PO SCH (22:19)
[2021-10-29] VITALS (16 sets, daily range): BP systolic 95–139; BP diastolic 44–72
--- NOTE | 2021-10-29 01:18 | Progress Note ---
Standard Progress Note Progress Notes/Assess & Plan Date Seen by a Provider: October 29, 2021 Time Seen by a Provider: 01:17 Progress/Assessment & Plan called for cough Rx, will give PAMELA Staples MD October 29, 2021 01:18
[2021-10-29] MEDS ORDERED: DEXTROMETHORPHAN 30 MG/5 ML PO PRN ×2 (01:30)
[2021-10-29] MEDS: ALPRAZolam 0.25 MG (XANAX) TAB PO PRN ×2 (02:27→17:53)
[2021-10-29] MEDS: HYDROcodone/APAP 5 MG/325 MG (LORTAB) TAB PO PRN ×3 (02:27→17:53)
[2021-10-29 05:08] LABS: BASOPHILS # (AUTO) 0.1 10^3/uL (0.0-0.1); BASOPHILS % (AUTO) 0 % (0-10); EOSINOPHILS % (AUTO) 0 % (0-10); HEMATOCRIT 28 % (35-52); HEMOGLOBIN 9.5 g/dL (11.5-16.0); LYMPHOCYTES # (AUTO) 1.7 10^3/uL (1.0-4.0); LYMPHOCYTES % (AUTO) 8 % (12-44); MEAN CORPUSCULAR HEMOGLOBIN 34 pg (25-34); MEAN CORPUSCULAR HGB CONC 34 g/dL (32-36); MEAN CORPUSCULAR VOLUME 100 fL (80-99); MEAN PLATELET VOLUME 9.2 fL (9.0-12.2); MONOCYTES # (AUTO) 0.8 10^3/uL (0.0-1.0); MONOCYTES % (AUTO) 4 % (0-12); NEUTROPHILS % (AUTO) 87 % (42-75); PLATELET COUNT 145 10^3/uL (130-400); WHITE BLOOD COUNT 21.8 10^3/uL (4.3-11.0)
[2021-10-29 05:34] LABS: ALBUMIN 3.1 GM/DL (3.2-4.5); POTASSIUM 3.7 MMOL/L (3.6-5.0)
[2021-10-29 05:37] LABS: TOTAL PROTEIN 5.2 GM/DL (6.4-8.2)
[2021-10-29 05:38] LABS: BILIRUBIN,TOTAL 0.4 MG/DL (0.1-1.0)
[2021-10-29 05:40] LABS: CREATININE SERUM 0.72 MG/DL (0.60-1.30); PHOSPHORUS 3.3 MG/DL (2.3-4.7)
[2021-10-29 05:43] LABS: MAGNESIUM 1.5 MG/DL (1.6-2.4)
[2021-10-29] MEDS ORDERED: MAGNESIUM 1 GM/100 ML IVPB 100 ML IV SCH (06:00)
[2021-10-29] MEDS ORDERED: KCL 20 MEQ TAB (K-DUR) PO SCH (06:00)
[2021-10-29] MEDS ORDERED: POTASSIUM CL 10MEQ/50ML IVPB 50 ML IV SCH (06:00)
[2021-10-29] MEDS: NS IV 1000 ML 1,000 ML IV SCH (06:27)
[2021-10-29] MEDS: SENNOSIDES 8.6 MG (SENOKOT) TAB PO SCH ×3 (06:27→20:24)
[2021-10-29] MEDS: inSUlin ASPART (NovoLOG) 1 UNIT/0.01 ML (CHARGE PER UNIT) SC SCH ×5 (06:27→20:21)
[2021-10-29] MEDS: DOCUSATE SODIUM 100 MG (COLACE) CAP PO SCH ×3 (06:27→20:24)
[2021-10-29] MEDS: VANCOMYCIN 1 GM/NS 250 ML IVPB IV SCH ×4 (06:34→17:23)
[2021-10-29] MEDS: CEFEPIME 1,000 MG/NS 50 ML IVPB IV SCH ×8 (06:34→23:50)
--- NOTE | 2021-10-29 06:59 | History & Physical-Hospitalist ---
History of Present Illness HPI/Chief Complaint Chief complaint: Shortness of breath with weakness History of present illness: This is a 61-year-old white female known to the service due to multiple hospital stays who presented with shortness of breath and weakness found to have pneumonia with elevated white count. She was placed empirically on antibiotics and provided supportive care and placed in the ICU. Toradol will be given for pleurisy. Labs have much improved and will be moved down to fourth floor. Atypical chest pain will be evaluated by Dr. Sanchez. Source: patient Exam Limitations: no limitations Date Seen 10/29/21 Time Seen by a Provider: 10:00 Attending Physician Mae Lebron DO [facility] Referring Physician Date of Admission October 28, 2021 at 16:01 Home Medications & Allergies Home Medications Reviewed patient Home Medication Reconciliation performed by pharmacy medication reconciliations general service technician and/or nursing. Patients Allergies have been reviewed. Allergies Allergies Coded Allergies Influenza Virus Vaccines (Verified Allergy, Unknown, 10/28/21) tramadol (Unverified Allergy, Unknown, 10/28/21) Uncoded Allergies PNEUMONIA SHOT ( Allergy, Unknown, 11/22/16) Past Iezxfin-Qvnohc-Oyhija Hx Patient Social History Marrital Status: single Employed/Student: unemployed Tobacco Use?: Yes Tobacco type used: Cigarettes Smoking Status: Current Everyday Smoker Use of E-Cig and/or Vaping dev: No Substance use?: Yes Substance type: Opiates/Opioids, Misuse of prescript meds Additional substance use comme: EXTENSIVE HISTORY OF DRUG ABUSE, JUJU RX DRUGS--JUJU OPIATES AND BENZO'S Alcohol Use?: Yes Alcohol Frequency: Once in a while Pt feels they are or have been: No Immunizations Up To Date First/Initial COVID19 Vaccinat: N/A Second COVID19 Vaccination Mariano: N/A Tetanus Booster (TDap): Unknown PED Vaccines UTD: Yes Seasonal Allergies Seasonal Allergies: No Current Status Advance Directives: No Primary Language: Peruvian Preferred Spoken Language: Peruvian Is interpretation needed?: No Past Medical History Surgeries: Gallbladder, Hysterectomy, Orthopedic, Tonsillectomy, Tubal Ligation Asthma, Pneumonia, COPD Currently Using CPAP: No High Cholesterol, Hypertension Headaches /Migraines 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 Gastroesophageal Reflux, Diverticulosis, Gall Bladder Disease Degenerate Disk Disease, Chronic Back Pain Diabetes, Non-Insulin dep Anxiety, Depression Blood Disorders: No PMHx: DMII Chronic back pain Anxiety HLD HTN COPD Depression GERD SurgHx: Tonsillectomy Hysterectomy with BSO Left foot orthopedic surgery Spinal surgery Family Medical History Cancer, CAD Under 55 Years Old, Diabetes SOCIAL HISTORY: -SMOKES 1 PPD -ETOH--OCCASIONAL USE -DRUGS--EXTENSIVE RX DRUG ABUSE AND MULTIPLE OVERDOSES--JUJU OPIATES AND BENZODIAZEPINES PT ADMITTED 10/03/21 OBTUNDED AND HIGHLY SUSPECTED OVERDOSE OF ROBAXIN AT THAT TIME. PAST SURGICAL HISTORY: -LUMBAR SPINE SURGERY 2017 -FOOT SURGERY -BILATERAL TUBAL LIGATION -HYSTERECTOMY -TONSILLECTOMY -CHOLECYSTECTOMY Review of Systems Constitutional: see HPI EENTM: no symptoms reported Respiratory: cough, dyspnea on exertion Cardiovascular: chest pain Gastrointestinal: no symptoms reported Genitourinary: no symptoms reported Musculoskeletal: no symptoms reported Skin: no symptoms reported Psychiatric/Neurological: No Symptoms Reported All Other Systems Reviewed Negative Unless Noted: Yes Physical Exam Physical Exam Vital Signs Vital Signs - First Documented 10/28/21 10/28/21 14:00 17:30 Temp 36.9 Pulse 126 Resp 20 B/P (MAP) 106/80 (89) Pulse Ox 94 O2 Delivery Room Air O2 Flow Rate 1.00 Capillary Refill : Less Than 3 Seconds Height, Weight, BMI Height: 5'8.00" Weight: 220lbs. oz. 99.013943pk; 30.32 BMI Method:Stated General Appearance: No Apparent Distress, Chronically ill Eyes: Right Eye Normal Inspection, Right Eye PERRL HEENT: PERRL/EOMI, Normal ENT Inspection, Pharynx Normal, Moist Mucous Membranes Neck: Full Range of Motion, Normal Inspection, Non Tender Respiratory: Chest Non Tender, No Accessory Muscle Use, No Respiratory Distress, Crackles, Decreased Breath Sounds Cardiovascular: Regular Rate, Rhythm, No Edema, No Gallop, No JVD, No Murmur, Normal Peripheral Pulses Gastrointestinal: Normal Bowel Sounds, No Organomegaly, No Pulsatile Mass, Non Tender, Soft Back: Normal Inspection, No CVA Tenderness, No Vertebral Tenderness Extremity: Normal Capillary Refill, Normal Inspection, Normal Range of Motion, Non Tender, No Calf Tenderness, No Pedal Edema Neurologic/Psychiatric: Alert, Oriented x3, No Motor/Sensory Deficits, Normal Mood/Affect Skin: Normal Color, Warm/Dry Lymphatic: No Adenopathy Results Results/Procedures Labs Laboratory Tests 10/28/21 14:01 10/29/21 05:18 10/30/21 04:15 Patient resulted labs reviewed. Assessment/Plan Admission Diagnosis Assessment: Sepsis Pneumonia Atypical chest pain Leukocytosis Dehydration Generalized weakness COPD Current smoker Hypertension Diabetes Plan: IV antibiotics Moved to floor Consult cardiology Admission Status: Inpatient Order (span 2 midnights) Reason for Inpatient Admission: Sepsis with pneumonia Diagnosis/Problems Diagnosis/Problems (1) Sepsis (2) Pneumonia MAE LEBRON DO October 29, 2021 06:59
[2021-10-29] MEDS: RT-ALBUTEROL/IPRATROPIUM 3 ML (DUONEB) VIAL INH SCH ×4 (07:37→20:35)
[2021-10-29] MEDS: MULTIVIT W/MINERALS TAB (THERAGRAN M) PO SCH (08:57)
[2021-10-29] MEDS: THIAMINE 100 MG (VITAMIN B-1) TAB PO SCH (08:57)
[2021-10-29] MEDS: FOLIC ACID 1 MG TAB PO SCH (08:58)
[2021-10-29] MEDS: MAGNESIUM OXIDE (MAG-OX)400 MG TAB PO SCH ×2 (08:58→20:32)
--- NOTE | 2021-10-29 09:42 | Tele-ICU Progress Note ---
Subjective Date Seen by a Provider: October 29, 2021 Time Seen by a Provider: 07:45 Subjective/Events-last exam This virtual visit was conducted using real time audio/video. Thank you for asking us to see this patient for respiratory insufficiency due to LLL pna and COPD. Recent events:Still having pleuritic pain. PMH: precription drug abuse, yuriy. opiates and BDPs, HTN, HL, GERD, R renal mass, DM2, anx., depression, obesity,diverticulitis. SH: smoking history: current FH: Non-contributory ROS: as in HPI. PE: VSS. O2 sat 96-97% on RA HEENT: No obvious masses, adenopathy or JVD. Chest: clear to auscultation. CV: RRR S1 S2 No murmur or added sounds. Abd: Non-tender. Bowel sounds Y. : Unremarkable. Jimenez . POWER DISTRIBUTOR/psychiatric: Grossly intact. No obvious focal findings. Extremities: edema. Capillary refill < 3 seconds. Skin: unremarkable. Results: Elevated WCC 21.8 decreased from 10/28. CTAC: No PE, emphysematous changes, LLL consolidation. CXR: hyperinflated, retrocardiac opacification. Available chart/ vitals / labs / images reviewed. Video assessment done using teleICU camera, rest of exam as per RN. A/P: Respiratory: Continue present management with PRN O2, IVF, and PRN Duonebs. Monitor for increasing oxygenation needs and/or need for intubation. Critical Care: critically ill patient. Cont. Lovenox, [place], SSI, abx. Discussed with KIRK Coughlin. Asked RN to reach out to eICU if any questions or concerns later. Time spent with patient/coordination of care with other health professionals (mins): 30 Sepsis Event Evaluation Height, Weight, BMI Height: 5'8.00" Weight: 220lbs. oz. 99.330546av; 30.32 BMI Method:Stated Focused Exam Lactate Level 10/28/21 14:35: Lactic Acid Level 1.86 Time of Focused Exam: 16:00 Exam Exam Patient acknowledged, consented, and participated in this virtual visit which was conducted using real time audio/video Vital Signs Date Time Temp Pulse Resp B/P (MAP) Pulse Ox O2 Delivery O2 Flow Rate FiO2 10/29/21 09:00 72 14 122/64 (83) 96 Room Air 10/29/21 08:00 79 15 123/61 (81) 94 Room Air 10/29/21 08:00 92 Room Air 10/29/21 07:50 36.1 10/29/21 07:37 100 Room Air 10/29/21 07:00 73 13 135/66 (89) 100 Nasal Cannula 3.00 10/29/21 07:00 73 10/29/21 06:00 78 20 136/61 (86) 99 Nasal Cannula 3.00 10/29/21 06:00 99 Nasal Cannula 3.00 10/29/21 05:00 79 18 112/56 (74) 100 Nasal Cannula 3.00 10/29/21 04:00 83 14 95/44 (61) 100 Nasal Cannula 3.00 10/29/21 04:00 99 Nasal Cannula 3.00 10/29/21 03:00 84 24 100/51 (67) 99 Nasal Cannula 3.00 10/29/21 02:27 36.4 10/29/21 02:00 79 24 102/58 (73) 100 Nasal Cannula 3.00 10/29/21 01:00 83 10/29/21 01:00 83 18 104/64 (77) 100 Nasal Cannula 3.00 10/29/21 00:00 90 19 104/56 (72) 100 Nasal Cannula 3.00 10/28/21 23:43 99 Nasal Cannula 3.00 10/28/21 23:00 97 22 104/50 (68) 99 Nasal Cannula 3.00 10/28/21 22:34 Nasal Cannula 2.00 10/28/21 22:19 37.4 10/28/21 22:00 100 20 110/57 (74) 100 Nasal Cannula 3.00 10/28/21 21:00 109 19 106/62 (77) 97 Nasal Cannula 3.00 10/28/21 20:31 124 99 10/28/21 20:00 99 Nasal Cannula 3.00 10/28/21 20:00 113 20 107/51 (69) 96 Nasal Cannula 3.00 10/28/21 19:00 121 10/28/21 19:00 36.9 112 28 108/54 (72) 100 Nasal Cannula 3.00 10/28/21 18:23 99 Nasal Cannula 3.00 10/28/21 18:00 124 30 100/78 (85) 97 Nasal Cannula 3.00 10/28/21 17:47 136/89 (105) 10/28/21 17:38 37.3 140 18 94 Nasal Cannula 3.00 10/28/21 17:30 104 20 108/69 95 Room Air 1.00 10/28/21 17:29 133 10/28/21 14:00 36.9 126 20 106/80 (89) 94 Room Air I & O 10/29/21 07:00 Intake Total 2000 ml Output Total 2250 ml Balance -250 ml Height & Weight Height: 5'8.00" Weight: 220lbs. oz. 99.398356cg; 30.32 BMI Method:Stated General Appearance: WD/WN, Obese, Other (WAILING, SCREAMING AND THRASHING ALL OVER BED. HOLDING LEFT FLANK AT TIMES. ) Neck: Normal Inspection Respiratory: Normal Breath Sounds, No Accessory Muscle Use, No Respiratory Distress Cardiovascular: Regular Rate, Rhythm, No Murmur Capillary Refill: Less Than 3 Seconds Extremity: Normal Capillary Refill, Normal Inspection, Normal Range of Motion, Non Tender, No Calf Tenderness, No Pedal Edema Neurologic/Psychiatric: Alert, Oriented x3, No Motor/Sensory Deficits, carpet inspector finished II- XII Norm as Tested Skin: Normal Color, Warm/Dry; No Rash Results Lab Laboratory Tests 10/28/21 14:01 10/29/21 05:18 Assessment/Plan Assessment/Plan See free text. Critical Care: Critically Ill Patient PETEY ARREAGA MD October 29, 2021 09:42
[2021-10-29] MEDS ORDERED: KETOROLAC 30 MG/ML VIAL IVP PRN (10:00)
[2021-10-29] MEDS ORDERED: guaiFENesin/CODEINE (ROBITUSSIN AC) 10ML UDC PO PRN (10:00)
[2021-10-29] MEDS ORDERED: LORATADINE (CLARITIN) 10 MG TAB PO NR (11:00)
[2021-10-29] MEDS ORDERED: MONTELUKAST 10 MG (SINGULAIR) TAB PO NR (11:00)
[2021-10-29] MEDS: RT-BUDESONIDE NEBS 0.5 MG/2ML (PULMICORT) AMP INH SCH ×2 (11:25→20:35)
[2021-10-29] MEDS ORDERED: morphine INJ 4 MG/ML 1 ML (VIAL/SYRINGE) IV PRN (13:45)
[2021-10-29] MEDS ORDERED: ACETAMINOPHEN 325 MG TABLET PO PRN (13:45)
[2021-10-29] MEDS: ENOXAPARIN 40 MG/0.4 ML (LOVENOX) SYR SC SCH (17:24)
[2021-10-30 00:40] VITALS: BP 142/65
[2021-10-30] MEDS: HYDROcodone/APAP 5 MG/325 MG (LORTAB) TAB PO PRN (00:55)
[2021-10-30] MEDS ORDERED: TROUGH ORDER-PHARMACY XX NR (04:00)
[2021-10-30 04:27] LABS: BASOPHILS % (AUTO) 0 % (0-10); EOSINOPHILS # (AUTO) 0.1 10^3/uL (0.0-0.3); EOSINOPHILS % (AUTO) 1 % (0-10); HEMATOCRIT 27 % (35-52); HEMOGLOBIN 9.1 g/dL (11.5-16.0); LYMPHOCYTES # (AUTO) 1.8 10^3/uL (1.0-4.0); LYMPHOCYTES % (AUTO) 18 % (12-44); MEAN CORPUSCULAR HEMOGLOBIN 34 pg (25-34); MEAN CORPUSCULAR HGB CONC 34 g/dL (32-36); MEAN CORPUSCULAR VOLUME 99 fL (80-99); MEAN PLATELET VOLUME 9.2 fL (9.0-12.2); MONOCYTES # (AUTO) 0.3 10^3/uL (0.0-1.0); MONOCYTES % (AUTO) 3 % (0-12); NEUTROPHILS # (AUTO) 7.9 10^3/uL (1.8-7.8); NEUTROPHILS % (AUTO) 78 % (42-75); PLATELET COUNT 142 10^3/uL (130-400); WHITE BLOOD COUNT 10.1 10^3/uL (4.3-11.0)
[2021-10-30] MEDS: VANCOMYCIN 1 GM/NS 250 ML IVPB IV SCH ×2 (04:37)
[2021-10-30 04:42] VITALS: BP 131/71
[2021-10-30 04:51] LABS: ALBUMIN 3.2 GM/DL (3.2-4.5); BILIRUBIN,TOTAL 0.3 MG/DL (0.1-1.0); CALCIUM 8.8 MG/DL (8.5-10.1); CREATININE SERUM 0.64 MG/DL (0.60-1.30); MAGNESIUM 1.7 MG/DL (1.6-2.4); TOTAL PROTEIN 5.3 GM/DL (6.4-8.2)
[2021-10-30] MEDS: inSUlin ASPART (NovoLOG) 1 UNIT/0.01 ML (CHARGE PER UNIT) SC SCH ×2 (04:51→11:19)
[2021-10-30] MEDS: THIAMINE 100 MG (VITAMIN B-1) TAB PO SCH (05:04)
[2021-10-30] MEDS: MULTIVIT W/MINERALS TAB (THERAGRAN M) PO SCH (05:04)
[2021-10-30] MEDS: CEFEPIME 1,000 MG/NS 50 ML IVPB IV SCH ×4 (05:04→11:20)
[2021-10-30 07:14] VITALS: BP 177/99
[2021-10-30] MEDS: RT-ALBUTEROL/IPRATROPIUM 3 ML (DUONEB) VIAL INH SCH ×2 (07:27→10:13)
[2021-10-30] MEDS: RT-BUDESONIDE NEBS 0.5 MG/2ML (PULMICORT) AMP INH SCH (07:27)
--- NOTE | 2021-10-30 07:52 | Diagnostic Imaging Report ---
HISTORY: Pneumonia COMPARISON: 10/28/2021 TECHNIQUE: Frontal view of the chest FINDINGS: There are mild airspace opacities in the left lung base. No large effusion or pneumothorax is seen. The cardiac silhouette is normal in size. IMPRESSION: 1. Left basilar airspace opacities, may represent atelectasis or infiltrate. Dictated by: Dictated on workstation # [id number]
[2021-10-30] MEDS ORDERED: MONTELUKAST 10 MG (SINGULAIR) TAB PO SCH (08:00)
[2021-10-30] MEDS ORDERED: LORATADINE (CLARITIN) 10 MG TAB PO SCH (09:00)
--- NOTE | 2021-10-30 09:26 | Progress Note - Hospitalist ---
MARY ANN ROSE A MED STUDENT 10/30/21 0926: Subjective HPI/CC On Admission Chief complaint: Shortness of breath with weakness History of present illness: This is a 61-year-old white female known to the service due to multiple hospital stays who presented with shortness of breath and weakness found to have pneumonia with elevated white count. She was placed empirically on antibiotics and provided supportive care and placed in the ICU. Toradol will be given for pleurisy. Labs have much improved and will be moved down to fourth floor. Atypical chest pain will be evaluated by Dr. Sanchez. Subjective/Events-last exam Pt up in bed this morning, reports concerns of 5-6 loose stools since waking up. Nurse and MEAT PUMPER confirm pt has had multiple brown loose stools this morning. Pt reports having cyclic constipation and diarrhea normally, so this is not abnormal for her. Pt currently has productive cough with sputum. Pt also has con cerns of dry eyes, which she has never had in the past. Pt denies fever, chills, SOA, abdominal pain, headache, blurry vision, dysuria or urinary frequency. Pt states she is anxious to go home and has a [facility]" home health aid who comes every day for 8 hours. Review of Systems General: No Chills, No Fatigue HEENT: No Head Aches, No Visual Changes; Other (cataracts) Pulmonary: No Dyspnea; Cough (productive) Cardiovascular: No: Chest Pain, Palpitations Gastrointestinal: Diarrhea; No: Nausea, Vomiting Genitourinary: No Dysuria, No Frequency Musculoskeletal: No: neck pain, back pain Neurological: No: Weakness, Numbness Focused Exam Lactate Level 10/28/21 14:35: Lactic Acid Level 1.86 Time of Focused Exam: 16:00 Objective Exam Vital Signs Vital Signs Date Time Temp Pulse Resp B/P (MAP) Pulse Ox O2 Delivery O2 Flow Rate FiO2 10/30/21 11:30 36.6 77 18 154/87 (109) 95 Room Air 10/29/21 20:54 2.00 Capillary Refill : Less Than 3 Seconds General Appearance: No Apparent Distress, WD/WN HEENT: PERRL/EOMI, Normal ENT Inspection Neck: Full Range of Motion, Normal Inspection, Non Tender, Supple Respiratory: Chest Non Tender, No Accessory Muscle Use, No Respiratory Distress, Decreased Breath Sounds Cardiovascular: Regular Rate, Rhythm, No Edema, Normal Peripheral Pulses Gastrointestinal: Non Tender, Soft, Abnormal Bowel Sounds (hyperactive in all quadrants) Rectal: Deferred Back: Normal Inspection Extremity: Normal Capillary Refill, Normal Inspection, Non Tender, No Pedal Edema Neurologic/Psychiatric: Alert, Oriented x3, No Motor/Sensory Deficits, Normal Mood/Affect Skin: Normal Color, Warm/Dry Lymphatic: No Adenopathy Results/Procedures Lab Laboratory Tests 10/30/21 04:15 Patient resulted labs reviewed. Assessment/Plan Assessment and Plan Assess & Plan/Chief Complaint Sepsis d/t Left lower lobe pneumonia Atypical chest pain Leukocytosis Dehydration Generalized weakness COPD Current smoker Hypertension Diabetes Sepsis d/t Left lower lobe pneumonia -Strep pneumo grew from cultures -D/c vancomycin as MRSA was not isolated in blood cultures -Continue cefepime -IMPRESSION: 1. Left basilar airspace opacities, may represent atelectasis or infiltrate. Atypical chest pain -Cardiology consulted, appreciate their recs Leukocytosis -resolved Dehydration -good urine output and PO intake Generalized weakness -PT/OT COPD -MAT protocol Current smoker Hypertension -Resume home meds Diabetes Anxiety -Xanax 0.25mg LANEY MADDOX MD 10/30/21 1445: Supervisory-Addendum Brief Verification & Attestation Participated in pt care: history, physical Personally performed: exam, history Care discussed with: Medical Student Procedures: n/a Verification and Attestation of Medical Student E/M Service A medical student performed and documented this service in my presence. I reviewed and verified all information documented by the medical student and made modifications to such information, when appropriate. I personally performed the physical exam and medical decision making. Laney Maddox, October 30, 2021,14:44 Patient left AMA prior to d/c orders being placed. Will send antibiotics over to cover PNA. MARY ANN ROSE A MED STUDENT October 30, 2021 09:26 LANEY MADDOX MD October 30, 2021 14:45
[2021-10-30] MEDS: DOCUSATE SODIUM 100 MG (COLACE) CAP PO SCH (09:40)
[2021-10-30] MEDS ORDERED: REGADENOSON 0.4 MG/5 ML SYR (LEXISCAN) IV ONE (09:45)
[2021-10-30 09:46] LABS: TRIGLYCERIDES 118 MG/DL (<150); VLDL CHOLESTEROL 24 MG/DL (5-40)
--- NOTE | 2021-10-30 09:48 | Consultation-Cardiology ---
HPI-Cardiology Cardiology Consultation: Date of Consultation 10/30/21 Date of Admission 10/28/21 Attending Physician Rachel Maddox MD Admitting Physician [facility] Consulting Physician JAYLEN ROMO JR, MD HPI: Time Seen by a Provider: 09:44 Chief Complaint: REASON FOR CONSULTATION: Chest pain. I had the pleasure of seeing Veronica on the medical/surgical unit at [facility] in [place], [place] today. She was admitted to the hospital with several day history of cough productive of yellowish sputum as well as increasing shortness of breath. She was felt to have pneumonia and was admitted for treatment. She has also been complaining of some midsternal chest pain. This feels like a sharp pain when she coughs. However, when she is not coughing, she will feel as though she has a pressure in the center of her chest. She denies radiation. She has chronic dyspnea on exertion related to her asthma and chronic obstructive pulmonary disease but this has gotten worse with her recent cough. She denies paroxysmal nocturnal dyspnea or orthopnea. She has occasional palpitations over the years with the sensation of flip-flopping in her chest with no associated complaints. She has rare lightheaded spells but denies syncope. She denies lower extremity edema. Because of the chest pain, a cardiology consultation was requested. Certain portions of this document may have been dictated utilizing voice recognition technology. Inherent to this technology, typographical and grammatical errors may exist. As much as I am diligent to identify and correct these mistakes, some errors may remain in the document. Review of Systems-Cardiology Review of Systems Other comments Review of 10 organ systems is as per the history of present illness, otherwise negative. All Other Systems Reviewed Negative Unless Noted: Yes XXR-Oamnis-Gwwvcm Hx Patient Social History Marrital Status: single Employed/Student: unemployed Smoking Status: Current Everyday Smoker 2nd Hand Smoke Exposure: Yes Have you traveled recently?: No Alcohol Use?: Yes Substance type: Opiates/Opioids, Misuse of prescript meds Pt feels they are or have been: No Tobacco type used: Cigarettes Immunizations Up To Date Tetanus Booster (TDap): Unknown Past Medical History PMH As described under Assessment. Family Medical History Family Medical History: Her father had heart disease that started in his 30s. Allergies and Home Medications Allergies Coded Allergies: Influenza Virus Vaccines (Verified Allergy, Unknown, 10/28/21) tramadol (Unverified Allergy, Unknown, 10/28/21) Uncoded Allergies: PNEUMONIA SHOT (Allergy, Unknown, 11/22/16) Patient Home Medication List Home Medication List Reviewed: Yes Albuterol Sulfate (Proventil Hfa) 6.7 Gm Hfa.aer.ad, 2 PUFF IH Q4H PRN for SHORTNESS OF BREATH Prescribed by: ANDRE LORD on 08/01/172053 Aspirin (Aspirin EC) 81 Mg Tablet.dr, 81 MG PO DAILY, (Reported) Entered as Reported by: DESMOND WATTS on 08/17/19 112 Budesonide/Formoterol Fumarate (Symbicort 160-4.5 Mcg Inhaler) 10.2 Gm Hfa.aer.ad, 2 PUFF IH BID, (Reported) Entered as Reported by: DESMOND WATTS on 08/17/19 1136 Cholecalciferol (Vitamin D3) (Vitamin D3) 25 Mcg Tablet, 25 MCG PO DAILY, (Reported) Entered as Reported by: LUTHER FLEMING on 10/03/21 1143 Gabapentin (Gabapentin) 600 Mg Tablet, 600 MG PO TID PRN for PAIN-MODERATE (5-7) Prescribed by: OSCAR BURNS on 05/30/21 0728 Hydroxyzine Pamoate (Hydroxyzine Pamoate) 50 Mg Capsule, 50 MG PO TID PRN for ANXIETY, (Reported) Entered as Reported by: LUTHER FLEMING on 10/03/21 1143 Lisinopril (Lisinopril) 10 Mg Tablet, 10 MG PO DAILY Prescribed by: OSCAR BURNS on 05/30/21 0728 Meloxicam (Meloxicam) 15 Mg Tablet, 15 MG PO DAILY, (Reported) Entered as Reported by: DESMOND WATTS on 08/17/19 112 Metformin HCl (Metformin HCl ER) 500 Mg Tab.er.24h, 500 MG PO DAILY, (Reported) Entered as Reported by: DESMOND WATTS on 08/17/19 112 Omeprazole (Omeprazole) 20 Mg Capsule.dr, 20 MG PO DAILY, (Reported) Entered as Reported by: DESMOND WATTS on 08/17/19 1136 Simvastatin (Simvastatin) 40 Mg Tablet, 40 MG PO DAILY, (Reported) Entered as Reported by: BERTHA MOSES on 06/13/16 1638 Vilazodone Hydrochloride (Viibryd) 20 Mg Tablet, 20 MG PO DAILY, (Reported) Entered as Reported by: LUTHER FLEMING on 10/03/21 1143 Exam Vital Signs Vital Signs Date Time Temp Pulse Resp B/P (MAP) Pulse Ox O2 Delivery O2 Flow Rate FiO2 10/30/21 11:30 36.6 77 18 154/87 (109) 95 Room Air 10/29/21 20:54 2.00 Physical Exam General: Alert. No acute distress. Well nourished and appears stated age. She appears older than her stated age. Eye: Extraocular movements are intact. Conjunctivae are clear. There are no xanthelasma. HENT: Normocephalic. Atraumatic. Carotid pulsations 2/2 without bruits. Neck: Jugular venous pressure does not appear elevated. No thyromegaly appreci ated. Respiratory: Lungs are clear to auscultation. Respirations are non-labored. Breath sounds are equal. Symmetrical chest wall expansion. Cardiovascular: Normal rate. Regular rhythm. No murmur. No gallop. Point of maximal impulse is not appear displaced. Good pulses equal in all extremities. No edema. Gastrointestinal: Soft. Normal bowel sounds. Skin: Skin turgor is normal. There is no pallor. Musculoskeletal: No kyphosis or scoliosis appreciated. Neurologic: Alert and oriented to person, place, time. Cranial nerves 3-12 appear grossly intact. The patient has good motor tone strength in the upper and lower extremities bilaterally. Psychiatric: Cooperative. Appropriate mood & affect. Labs Laboratory Tests Test 10/29/21 18:40 10/29/21 20:19 10/30/21 04:15 10/30/21 11:17 Range/Units Troponin I < 0.028 <0.028 NG/ML Glucometer 115 H 114 H 70-110 MG/DL White Blood Count 10.1 4.3-11.0 10^3/uL Red Blood Count 2.69 L 3.80-5.11 10^6/uL Hemoglobin 9.1 L 11.5-16.0 g/dL Hematocrit 27 L 35-52 % Mean Corpuscular Volume 99 80-99 fL Mean Corpuscular Hemoglobin 34 25-34 pg Mean Corpuscular Hemoglobin Concent 34 32-36 g/dL Red Cell Distribution Width 12.7 10.0-14.5 % Platelet Count 142 130-400 10^3/uL Mean Platelet Volume 9.2 9.0-12.2 fL Immature Granulocyte % (Auto) 0 % Neutrophils (%) (Auto) 78 H 42-75 % Lymphocytes (%) (Auto) 18 12-44 % Monocytes (%) (Auto) 3 0-12 % Eosinophils (%) (Auto) 1 0-10 % Basophils (%) (Auto) 0 0-10 % Neutrophils # (Auto) 7.9 H 1.8-7.8 10^3/uL Lymphocytes # (Auto) 1.8 1.0-4.0 10^3/uL Monocytes # (Auto) 0.3 0.0-1.0 10^3/uL Eosinophils # (Auto) 0.1 0.0-0.3 10^3/uL Basophils # (Auto) 0.0 0.0-0.1 10^3/uL Immature Granulocyte # (Auto) 0.0 0.0-0.1 10^3/uL Sodium Level 137 135-145 MMOL/L Potassium Level 4.0 3.6-5.0 MMOL/L Chloride Level 107 98-107 MMOL/L Carbon Dioxide Level 16 L 21-32 MMOL/L Anion Gap 14 5-14 MMOL/L Blood Urea Nitrogen 8 7-18 MG/DL Creatinine 0.64 0.60-1.30 MG/DL Estimat Glomerular Filtration Rate 102 BUN/Creatinine Ratio 13 Glucose Level 87 70-105 MG/DL Calcium Level 8.8 8.5-10.1 MG/DL Corrected Calcium 9.4 8.5-10.1 MG/DL Magnesium Level 1.7 1.6-2.4 MG/DL Total Bilirubin 0.3 0.1-1.0 MG/DL Aspartate Amino Transf (AST/SGOT) 13 5-34 U/L Alanine Aminotransferase (ALT/SGPT) 11 0-55 U/L Alkaline Phosphatase 77 40-136 U/L Total Protein 5.3 L 6.4-8.2 GM/DL Albumin 3.2 3.2-4.5 GM/DL Triglycerides Level 118 <150 MG/DL Cholesterol Level 122 < 200 MG/DL LDL Cholesterol Direct 57 1-129 MG/DL VLDL Cholesterol 24 5-40 MG/DL HDL Cholesterol 35 L 40-60 MG/DL Vancomycin Level Trough 11.5 10.0-20.0 UG/ML ECG Impression ECG Comment Electrocardiogram obtained on 10/28 shows sinus tachycardia [address] changes. Diagnosis/Problems Diagnosis/Problems (1) Chest pain Assessment & Plan: Etiology unclear. Her troponin level was negative and she did not have any ischemic changes or evidence of a prior infarct on her electrocardiogram. She is being treated for pneumonia and has been coughing a fair amount. I suspect this is noncardiac chest pain due to musculoskeletal strain from her coughing. Nonetheless, given her age and risk factors, coronary ischemia is also in the differential diagnosis. It would not be unreasonable to have her undergo a stress test. However, this could certainly be arranged as an outpatient. (2) Abnormal electrocardiogram Assessment & Plan: She has a borderline abnormal electrocardiogram as outlined above. There is primarily showed sinus tachycardia. In light of the chest discomfort, I recommend a nuclear stress test. I gave her my contact information so that she could reach out to my office and then we can arrange for an outpatient stress test. Unfortunately, the patient decided to leave AGAINST MEDICAL ADVICE. I did place an order for the nuclear stress test in our outpatient EMR. (3) Primary hypertension Assessment & Plan: Blood pressure appears reasonably controlled with her home dose of lisinopril. (4) Mixed hyperlipidemia Assessment & Plan: Continue statin medication. (5) Type 2 diabetes mellitus without complication Assessment & Plan: This is managed by her primary provider. (6) Cigarette smoker Assessment & Plan: She needs to quit smoking. The patient was counseled in this regard. JAYLEN ROMO JR, MD October 30, 2021 09:48
[2021-10-30 09:51] LABS: CHOLESTEROL 122 MG/DL (< 200)
[2021-10-30 09:52] LABS: HDL CHOLESTEROL 35 MG/DL (40-60)
[2021-10-30] MEDS: MAGNESIUM OXIDE (MAG-OX)400 MG TAB PO SCH (09:57)
[2021-10-30] MEDS: SENNOSIDES 8.6 MG (SENOKOT) TAB PO SCH (09:57)
[2021-10-30] MEDS: FOLIC ACID 1 MG TAB PO SCH (09:57)
--- NOTE | 2021-10-30 10:11 | Physical Therapy Progress Note ---
Therapy Progress Note Patient reports she is up independently in room and declined PT. Nursing confirms patient is independent. No skilled PT indicated at this time. 1 ref ALEXANDRA ADAME PT October 30, 2021 10:11
[2021-10-30 11:30] VITALS: BP 154/87
--- NOTE | 2021-10-30 11:33 | Occ Therapy Progress Note ---
Therapy Progress Note OT orders received and chart reviewed. Pt up in room, gathering her items, states she is discharging home today. Pt up in room independently, no AD. Pt reports no concerns with ADLs at this time, has been toileting independently, able to dress herself without assistance, and has no concerns about her ability to complete ADLs at discharge. No skilled OT services indicated at this time, as pt is independent with ADLs and at [facility] [address]. D/C from OT. 1, visit D/C 9030 OMAR SHEEHAN OT October 30, 2021 11:33
--- NOTE | 2021-10-30 12:08 | Discharge Summary ---
MARY ANN ROSE A MED STUDENT 10/30/21 1208: Diagnosis/Chief Complaint Date of Admission October 28, 2021 at 16:01 Date of Discharge Discharge Date: October 30, 2021 Admission Diagnosis Admission Diagnosis Sepsis with Left lower lobe pneumonia and atypical chest pain Discharge Diagnosis Left lower lobe pneumonia Atypical chest pain COPD Diabetes HTN Tobacco abuse Discharge Summary Hospital Course Hospital Course 61 yo female who presented to ED via ambulance after having chest and left flank pain at home on 10/28. Pt reports the chest pain started all of sudden when she woke up then began to migrate to her left flank and she called an ambulance. Upon arrival to the ED the pt was found to have sepsis and left lower lobe pneumonia. Cardiology was consulted for atypical chest pain. Pt was started on Vancomycin and Cefepime. Pts leukocytosis resolved. Blood cultures grew Strep pneumonia. On 10/30 Vancomycin was stopped and cefepime was switched to cefdinir. Oxygen study was done prior to patients discharge. Pt stable for discharge. Labs Laboratory Tests 10/28/21 14:01: White Blood Count 35.7*H, Neutrophils (%) (Auto) 90H, Lymphocytes (%) (Auto) 3L, Neutrophils # (Auto) 32.0H, Lymphocytes # (Auto) 0.9L, Monocytes # (Auto) 1.7H, Immature Granulocyte # (Auto) 1.1H, Carbon Dioxide Level 18L, Glucose Level 137H , C-Reactive Protein High Sensitivity 9.87H, Procalcitonin 3.06H 10/28/21 14:28: Urine Bacteria FEWH 10/28/21 14:35: 10/28/21 14:45: Activated Partial Thromboplast Time 39H 10/28/21 21:10: Glucometer 116H 10/29/21 05:18: White Blood Count 21.8H, Red Blood Count 2.81L, Hemoglobin 9.5#L, Hematocrit 28L , Mean Corpuscular Volume 100H, Neutrophils (%) (Auto) 87H, Lymphocytes (%) (Auto) 8L, Neutrophils # (Auto) 19.0H, Immature Granulocyte # (Auto) 0.2H, Chloride Level 108H, Carbon Dioxide Level 18L, Calcium Level 8.0L, Magnesium Level 1.5L, Total Protein 5.2L, Albumin 3.1L 10/29/21 10:51: Glucometer 126H 10/29/21 15:28: 5/8/22 18:40: 10/29/21 20:19: Glucometer 115H 10/30/21 04:15: Red Blood Count 2.69L, Hemoglobin 9.1L, Hematocrit 27L, Neutrophils (%) (Auto) 78H, Neutrophils # (Auto) 7.9H, Carbon Dioxide Level 16L, Total Protein 5.3L, HDL Cholesterol 35L 10/30/21 11:17: Glucometer 114H Procedures None. Consultations Cardiology Discharge Physical Examination Allergies: Coded Allergies: Influenza Virus Vaccines (Verified Allergy, Unknown, 10/28/21) tramadol (Unverified Allergy, Unknown, 10/28/21) Uncoded Allergies: PNEUMONIA SHOT (Allergy, Unknown, 11/22/16) Vitals & I&Os Vital Signs Date Time Temp Pulse Resp B/P (MAP) Pulse Ox O2 Delivery O2 Flow Rate FiO2 10/30/21 11:30 36.6 77 18 154/87 (109) 95 Room Air 10/29/21 20:54 2.00 General Appearance: Alert, Oriented X3, No Acute Distress HEENT: Atraumatic, PERRLA, EOMI Respiratory: Other (Decresed breath sounds bilaterally) Cardiovascular: Regular Rate, No Murmurs, Rubs Abdominal: Soft, No Tenderness, Other (hyperactive bowel sounds) Extremities: No Clubbing, No Cyanosis, No Edema Skin: No Rashes, No Breakdown Neuro: Normal Speech, Normal Tone Psych/Mental Status: Mood NL Discharge Home Medications Reviewed and agree with Discharge Medication list on patient's Discharge Instruction sheet Condition at Discharge Stable Instructions to Patient/Family Please see electronic discharge instructions given to patient. LANEY MADDOX MD 10/30/21 1446: Discharge Summary Discharge Physical Examination Allergies: Coded Allergies: Influenza Virus Vaccines (Verified Allergy, Unknown, 10/28/21) tramadol (Unverified Allergy, Unknown, 10/28/21) Uncoded Allergies: PNEUMONIA SHOT (Allergy, Unknown, 11/22/16) Supervisory-Addendum Brief Verification & Attestation Participated in pt care: history, physical Personally performed: exam, history Care discussed with: Medical Student Procedures: n/a Verification and Attestation of Medical Student E/M Service A medical student performed and documented this service in my presence. I reviewed and verified all information documented by the medical student and made modifications to such information, when appropriate. I personally performed the physical exam and medical decision making. Laney Maddox, October 30, 2021,14:45 MARY ANN ROSE MED STUDENT October 30, 2021 12:08 LANEY MADDOX MD October 30, 2021 14:46
--- NOTE | 2021-10-31 12:49 | Physician Query Clarification ---
Physician Query-General Query to Physician: The medical record reflects the following clinical evidence: Clinical Indicators: GCS on admission of 11, Withdrawing to pain only, confused, Toxicology negative for all narcotics, and other drugs of abuse, GCS improved over 48 hours with treatment to 15, no longer confused, completely alert and oriented X 4, following commands. no sensory impairment. Risk Factor(s) Sepsis Pneumonia, Hx of prescription drug abuse, Treatment: IV fluids, IV antibiotics, neuro monitoring, ICU initially 1. Metabolic/Septic encephalopathy, present on admission, now resolved 2. Other explanation of clinical findings 3. Unable to determine (no explanation for clinical findings) Please clarify and document your clinical opinion in the progress notes and discharge summary including the definitive and/or presumptive diagnosis, (suspected or probable), related to the above clinical findings. Please include clinical findings supporting your diagnosis. Domitila Niño MSN, RN Clinical Manager [employer] [phone] [email or web address] PHYSICIAN RESPONSE: Based on the clinical findings in the record, please respond to the query above on this document as an addendum. Physician Response: If you have questions please contact: Audio Visual Arts Director: Ext: Thank you for your time and cooperation. Clinical Manager [employer]/Audio Visual Arts Director This is a permanent part of the medical record DOMITILA NIÑO October 31, 2021 12:49
== END 2021-11-03 13:15 | disposition left against medical advice (07) | DRG 871 ==
LOC: EDUNIT# 13:42 → ER 13:44 → ICU 16:01 → 4TH 10-29 13:40
PROVIDERS: ADMIT Internal Medicine; ATTEND Family Medicine
DX: A41.9 Sepsis, unspecified organism (principal); J18.9 Pneumonia, unspecified organism; J44.0 Chronic obstructive pulmonary disease with (acute) lower respiratory infection; R07.89 Other chest pain; D72.829 Elevated white blood cell count, unspecified; R53.1 Weakness; F17.210 Nicotine dependence, cigarettes, uncomplicated; I10 Essential (primary) hypertension; E11.9 Type 2 diabetes mellitus without complications; G89.29 Other chronic pain; M54.9 Dorsalgia, unspecified; F41.9 Anxiety disorder, unspecified; F32.A Depression, unspecified; K21.9 Gastro-esophageal reflux disease without esophagitis; E78.00 Pure hypercholesterolemia, unspecified; G43.909 Migraine, unspecified, not intractable, without status migrainosus; K57.90 Diverticulosis of intestine, part unspecified, without perforation or abscess without bleeding; Z79.82 Long term (current) use of aspirin; Z79.899 Other long term (current) drug therapy; Z79.84 Long term (current) use of oral hypoglycemic drugs; R65.20 Severe sepsis without septic shock; E66.9 Obesity, unspecified; E86.0 Dehydration; E78.2 Mixed hyperlipidemia
CPT/HCPCS: 36415; 71045; 71275; 74177; 80053; 80061; 80202; 80306; 80320; 81000; 82150; 82550; 82553; 82947; 83036; 83605; 83690; 83735; 83874; 84100; 84145; 84484; 85007; 85025; 85027; 85610; 85652; 85730; 86141; 87040; 87077; 87081; 87088; 87324; 87449; 93005; 93041; 94640; 94760; 94761; 96361; 96365; 96375

== ENCOUNTER → 2021-11-23 | Outpatient (CLI) | payer MEDICARE, MEDICAID ==
[~2021-11-23] MED LIST changes: +CATHETER FLUSH 10 ML SYR IVP PRN; +REGADENOSON 0.4 MG/5 ML SYR (LEXISCAN) IV ONE
[2021-11-23 10:17] VITALS: BP 166/106
--- NOTE | 2021-11-23 12:50 | NUCLEAR STRESS TEST ---
REGADENOSON NUCLEAR STRESS Date of procedure: 11/23/2021. Primary care provider: [facility] Admitting physician: Dimitris Sanchez Jr., MD. INDICATION: Abnormal electrocardiogram. BASELINE ELECTROCARDIOGRAM: Sinus rhythm with poor R wave progression. STRESS TEST PROCEDURE: The patient was administered 0.4 mg of intravenous Regadenoson. The resting heart rate was 85 bpm and the peak heart rate was 122 bpm. The resting blood pressure was 166/106 mmHg and the minimum blood pressure was 129/99 mmHg. This represents a normal heart rate and a normal blood pressure response to Regadenoson with resting hypertension. The test was stopped due to the protocol. There was no chest discomfort during the test. There were no arrhythmias during the test. There were no significant stress induced electrocardiogram changes. NUCLEAR PROCEDURE: The patient was administered 10.3 mCi of intravenous technetium 99m Tetrofosmin at rest for the rest images. The patient was subsequently administered 31.1 mCi of intravenous technetium 99m Tetrofosmin at peak stress for the stress images. Following an appropriate wait after each injection, imaging was obtained. The images were subsequently processed and reformatted in the usual views. Gated imaging was obtained. The image quality was adequate with a mild degree of gastrointestinal attenuation artifact. CT attenuation correction was used as a adjunct to standard imaging. Both the corrected and uncorrected images were reviewed for interpretation. NUCLEAR RESULTS: There was normal myocardial perfusion in all segments without evidence of infarction or ischemia. There was normal left ventricular chamber size with an end-diastolic volume of 41 mL and an end-systolic volume of 11 mL. There was no evidence of transient ischemic dilatation. The TID ratio was 1.14. There was normal wall motion in all segments with a calculated ejection fraction of 74%. IMPRESSION: 1. Normal heart rate and blood pressure response to regadenoson with resting hypertension. 2. There was no chest discomfort, arrhythmias, or electrocardiogram changes during the test. 3. There was normal myocardial perfusion in all segments without evidence of infarction or ischemia. 4. There was normal wall motion in all segments with a calculated ejection fraction of 74%. Certain portions of this document may have been dictated utilizing voice recognition technology. Inherent to this technology, typographical and grammatical errors may exist. As much as I am diligent to identify and correct these mistakes, some errors may remain in the document. DIMITRIS SANCHEZ JR, MD Nov 23, 2021 12:50
== END ==
LOC: CARD 11-09 11:45
PROVIDERS: ATTEND Internal Medicine Cardiovascular Disease
DX: R94.31 Abnormal electrocardiogram [ECG] [EKG] (principal)
CPT/HCPCS: 78452; 93017; A9502

== ENCOUNTER 2021-12-27 18:29 | Emergency (ER) | payer MEDICARE, MEDICAID ==
[~2021-12-27 18:29] MED LIST changes: -CATHETER FLUSH 10 ML SYR IVP PRN; -REGADENOSON 0.4 MG/5 ML SYR (LEXISCAN) IV ONE
== END 2021-12-27 19:06 | disposition left against medical advice (07) ==
LOC: EDUNIT# 18:29 → ER 18:31
DX: M54.9 Dorsalgia, unspecified (principal); R10.9 Unspecified abdominal pain

== ENCOUNTER 2022-05-02 21:09 | Emergency (ER) | payer OTHER, MEDICAID ==
[~2022-05-02 21:09] MED LIST changes: +ALBU8.5H6 IH
== END 2022-05-02 21:51 | disposition left against medical advice (07) ==
LOC: EDUNIT# 21:09 → ER 21:11
DX: R10.9 Unspecified abdominal pain (principal); M54.9 Dorsalgia, unspecified

== ENCOUNTER 2022-05-07 22:35 | Inpatient (IN) | payer OTHER, MEDICAID ==
[~2022-05-07] VITALS: Ht 172.7 cm; Wt 93.3 kg
[2022-05-07 23:03] LABS: BASOPHILS % (AUTO) 0 % (0-10); EOSINOPHILS # (AUTO) 0.1 10^3/uL (0.0-0.3); EOSINOPHILS % (AUTO) 1 % (0-10); HEMATOCRIT 30 % (35-52); HEMOGLOBIN 11.1 g/dL (11.5-16.0); LYMPHOCYTES # (AUTO) 2.8 10^3/uL (1.0-4.0); LYMPHOCYTES % (AUTO) 31 % (12-44); MEAN CORPUSCULAR HEMOGLOBIN 34 pg (25-34); MEAN CORPUSCULAR HGB CONC 37 g/dL (32-36); MEAN CORPUSCULAR VOLUME 93 fL (80-99); MEAN PLATELET VOLUME 8.3 fL (9.0-12.2); MONOCYTES # (AUTO) 0.6 10^3/uL (0.0-1.0); MONOCYTES % (AUTO) 6 % (0-12); NEUTROPHILS # (AUTO) 5.6 10^3/uL (1.8-7.8); NEUTROPHILS % (AUTO) 62 % (42-75); PLATELET COUNT 297 10^3/uL (130-400); WHITE BLOOD COUNT 9.1 10^3/uL (4.3-11.0)
[2022-05-07 23:10] LABS: PROTHROMBIN TIME PATIENT 13.6 SEC (12.2-14.7)
[2022-05-07] MEDS ORDERED: NS IV 1000 ML 1,000 ML IV SCH (23:15)
[2022-05-07 23:20] LABS: ACETAMINOPHEN < 10 UG/ML (10-30); ALANINE AMINOTRANSFERASE 12 U/L (0-55); ALBUMIN 4.1 GM/DL (3.2-4.5); ALKALINE PHOSPHATASE 71 U/L (40-136); AMYLASE 53 U/L (25-125); BILIRUBIN,TOTAL 0.4 MG/DL (0.1-1.0); BUN/CREATININE RATIO 16; CALCIUM 8.8 MG/DL (8.5-10.1); CARBON DIOXIDE 21 MMOL/L (21-32); CHLORIDE 87 MMOL/L (98-107); CREATINE KINASE 52 U/L (29-168); CREATININE SERUM 0.97 MG/DL (0.60-1.30); GFR ESTIMATED 67; GLUCOSE 89 MG/DL (70-105); LIPASE 58 U/L (8-78); MAGNESIUM 1.6 MG/DL (1.6-2.4); POTASSIUM 3.9 MMOL/L (3.6-5.0); TOTAL PROTEIN 6.3 GM/DL (6.4-8.2)
[2022-05-07 23:21] LABS: ERYTHROCYTE SEDIMENTATION RATE 16 MM/HR (0-30)
[2022-05-07 23:41] LABS: CREATINE KINASE MB 1.3 NG/ML (<6.6); TSH (THYROID ANALYZER) 0.33 UIU/ML (0.35-4.94)
[2022-05-07 23:43] LABS: SODIUM 122 MMOL/L (135-145)
[2022-05-08] VITALS (8 sets, daily range): BP systolic 90–135; BP diastolic 50–89
[2022-05-08 00:06] LABS: BILIRUBIN,URINE NEGATIVE (NEGATIVE); CLARITY,URINE CLEAR; COLOR,URINE YELLOW; GLUCOSE, URINE (UA) NEGATIVE (NEGATIVE); KETONES,URINE NEGATIVE (NEGATIVE); LEUKOCYTE ESTERASE ,URINE TRACE (NEGATIVE); NITRITE,URINE NEGATIVE (NEGATIVE); PH,URINE 5.5 (5-9); PROTEIN,URINE NEGATIVE (NEGATIVE)
[2022-05-08 00:16] LABS: FREE T4 (FREE THYROXINE) 1.01 NG/DL (0.70-1.48)
[2022-05-08] MEDS ORDERED: NS IV 1000 ML 1,000 ML IV SCH (00:30)
[2022-05-08 00:39] LABS: AMPHETAMINE SCREEN, URINE NEGATIVE (NEGATIVE); BARBITURATE SCREEN URINE NEGATIVE (NEGATIVE); BENZODIAZEPINES SCREEN URINE NEGATIVE (NEGATIVE); COCAINE SCREEN URINE NEGATIVE (NEGATIVE); METHADONE STAT NEGATIVE (NEGATIVE); OPIATE SCREEN URINE NEGATIVE (NEGATIVE); OXYCODONE STAT NEGATIVE (NEGATIVE); PROPOXYPHENE STAT NEGATIVE (NEGATIVE)
[2022-05-08 00:40] LABS: CANNABINOID SCREEN, URINE NEGATIVE (NEGATIVE); TRICYCLIC ANTIDEPRESSANTS SCRE NEGATIVE (NEGATIVE)
[2022-05-08 00:45] LABS: BACTERIA,URINE NEGATIVE /HPF
[2022-05-08] MEDS: NS IV 1000 ML 1,000 ML IV SCH ×3 (03:00→22:07)
--- NOTE | 2022-05-08 06:46 | ED General ---
General Chief Complaint: General Problems/Pain Stated Complaint: HYPONATREMIA Nursing Triage Note: PT ARRIVAL TO ER [facility]IA [facility] FROM HOME WITH COMPLAINTS OF WEAKNESS, HYPOTENSION AT HOME. PATIENT HAS BEEN WEAK TODAY. STATES THAT FRIENDS TOOK HER BLOOD PRESSURE AT HOME WITH READINGS OF 50/61. PATIENT DENIES OTHER COMPLAINTS. PT DENIES BEING SICK OR HAVING COVID SYMPTOMS. PT IS AFEBRILE AND BLOOD PRESSURE HAS BEEN CONSISTANT AROUND 105 SYSTOLIC. Nursing Sepsis Screen: No Definite Risk Source of Information: Patient (LIMITED/ POOR HISTORIAN, POOR MEMORY--DOES NOT KNOW ANY OF HER MEDICATIONS, AND IS NOT ABLE TO STATE WHAT SHE TAKES HER M EDICATIONS FOR. ) History of Present Illness Date Seen by Provider: May 07, 2022 Time Seen by Provider: 22:45 Initial Comments PT ARRIVES VIA EMS FROM HOME STATES "I JUST DON'T FEEL GOOD" "WEAK" "NO ENERGY" "I'M JUST TIRED" "I'VE WORKED MYSELF TO " "I'M JUST WORN OUT" STATES SYMPTOMS BEGAN TONIGHT STATES "I JUST FIRED MY AID--SHE JUST SAT AND WAS ON HER PHONE ALL THE TIME" --STATES THIS WAS "A COUPLE OF DAYS AGO" STATES "IT'S GETTING ME SO STRESSED OUT THAT I'M HAVING PANIC ATTACKS" "THE BUILDING'S SO HORRIBLE BUT I CAN'T AFFORD TO MOVE" SHE SEEMS FIXATED ON THIS SITUATION SHE STATES SHE ATE FRIED POTATOES FOR SUPPER, AND NOTHING ELSE TO EAT ALL DAY TODAY SHE IS DIABETIC, BUT NEVER CHECKS HER BLOOD SUGAR--STATES SHE DOES NOT HAVE A GLUCOMETER. STATES SHE HAS HAD SOME COUGH AND CONGESTION AND CHEST TIGHTNESS "BUT I DO THAT WHEN I HAVE A PANIC ATTACK" DENIES SHORTNESS OF BREATH DENIES FEVER/SWEATS/CHILLS DENIES ANY NAUSEA/VOMITING/DIARRHEA OR ABDOMINAL PAIN DENIES ANY URINARY SYMPTOMS SHE REPORTED TO EMS THAT ONE OF HER FRIENDS TOOK HER BLOOD PRESSURE AND IT WAS "50/61" SO THEY CALLED EMS. THE ONLY MEDICAL PROBLEMS THAT PT IS ABLE TO STATE ARE: DIABETES, HYPERTENSION AND FIBROMYALGIA. SHE DENIES ANY MISSED DOSES OF MEDICATIONS OR ANY CHANGES IN HER MEDICATIONS. PT IS NOT COVID VACCINATED SHE DID HAVE COVID IN JUNE OF THIS YEAR. NO HOSPITALIZATION PT HAS HAD MULTIPLE VISITS FOR VARIOUS COMPLAINTS LAST VISIT 05/02/22, LEFT WITHOUT BEING SEEN. SHE CONTINUES TO SMOKE 1 PPD STATES SHE USED TO DRINK HEAVILY, BUT HAS "NOT FOR "A LONG TIME" TODAY SHE DENIES ANY DRUG USE NOW OR IN THE PAST. ( PT IS KNOWN TO HAVE AN EXTENSIVE HISTORY OF RX DRUG ABUSE AND OVERDOSES--OPIATES AND BENZODIAZEPINES--SEE OLD CHARTS FOR DETAILS) PCP: [facility], DR. GOLDBERG--STATES SHE WAS THERE LAST WEEK FOR ROUTINE EXAM. Allergies and Home Medications Allergies Coded Allergies: Influenza Virus Vaccines (Verified Allergy, Unknown, 10/28/21) tramadol (Unverified Allergy, Unknown, 10/28/21) Uncoded Allergies: PNEUMONIA SHOT (Allergy, Unknown, 11/22/16) Patient Home Medication List Home Medication List Reviewed: Yes Albuterol Sulfate (Proventil Hfa) 6.7 Gm Hfa.aer.ad, 2 PUFF IH Q4H PRN for SHOR TNESS OF BREATH Prescribed by: ANDRE LORD on 08/01/172053 Aspirin (Aspirin EC) 81 Mg Tablet.dr, 81 MG PO DAILY, (Reported) Entered as Reported by: DESMOND WATTS on 08/17/19 1126 Budesonide/Formoterol Fumarate (Symbicort 160-4.5 Mcg Inhaler) 10.2 Gm Hfa.aer.ad, 2 PUFF IH BID, (Reported) Entered as Reported by: DESMOND WATTS on 08/17/19 1136 Cholecalciferol (Vitamin D3) (Vitamin D3) 25 Mcg Tablet, 25 MCG PO DAILY, (Reported) Entered as Reported by: LUTHER FLEMING on 10/03/21 1143 Gabapentin (Gabapentin) 600 Mg Tablet, 600 MG PO TID PRN for PAIN-MODERATE (5-7) Prescribed by: OSCAR BURNS on 05/30/21727 Hydroxyzine Pamoate (Hydroxyzine Pamoate) 50 Mg Capsule, 50 MG PO TID PRN for ANXIETY, (Reported) Entered as Reported by: LUTHER FLEMING on 10/03/21 1143 Lisinopril (Lisinopril) 10 Mg Tablet, 10 MG PO DAILY Prescribed by: OSCAR BURNS on 05/30/21727 Meloxicam (Meloxicam) 15 Mg Tablet, 15 MG PO DAILY, (Reported) Entered as Reported by: DESMOND WATTS on 08/17/19 1126 Metformin HCl (Metformin HCl ER) 500 Mg Tab.er.24h, 500 MG PO DAILY, (Reported) Entered as Reported by: DESMOND WATTS on 08/17/19 1126 Omeprazole (Omeprazole) 20 Mg Capsule.dr, 20 MG PO DAILY, (Reported) Entered as Reported by: DESMOND WATTS on 08/17/19 1136 Simvastatin (Simvastatin) 40 Mg Tablet, 40 MG PO DAILY, (Reported) Entered as Reported by: BERTHA MOSES on 06/13/16 1638 Vilazodone Hydrochloride (Viibryd) 20 Mg Tablet, 20 MG PO DAILY, (Reported) Entered as Reported by: LUTHER FELMING on 10/03/21 1143 Review of Systems Review of Systems Constitutional: see HPI; No dizziness; malaise, weakness EENTM: see HPI Respiratory: see HPI Cardiovascular: see HPI Gastrointestinal: No abdominal pain, No constipation, No diarrhea; loss of appetite; No nausea, No vomiting Genitourinary: no symptoms reported Musculoskeletal: no symptoms reported Skin: no symptoms reported Psychiatric/Neurological: See HPI, Anxiety Hematologic/Lymphatic: No Symptoms Reported Immunological/Allergic: no symptoms reported Past Xgjrgil-Qfjtrj-Qdnbfu Hx Patient Social History Tobacco Use?: Yes Tobacco type used: Cigarettes Smoking Status: Current Everyday Smoker Use of E-Cig and/or Vaping dev: No Substance use?: No Alcohol Use?: Yes Pt feels they are or have been: No Immunizations Up To Date Tetanus Booster (TDap): Unknown PED Vaccines UTD: Yes Influenza Vaccine Up-to-Date: No; Not Current First/Initial COVID19 Vaccinat: N/A Second COVID19 Vaccination Mariano: N/A Third COVID19 Vaccination Date: N/A Seasonal Allergies Seasonal Allergies: No Past Medical History Surgery/Hospitalization HX: choly, hysty, copd, dm, polysubstance Surgeries: Yes (BACK SURGERY 2017; FOOT SURGERY) Gallbladder, Hysterectomy, Orthopedic, Tonsillectomy, Tubal Ligation Respiratory: Yes (07/2019--PNEUMONIA WITH SEPTIC SHOCK AND INTUBATED. COVID 06/2021--NO [place]. 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 Genitourinary: No Gastrointestinal: Yes (delayed emptying) Gastroesophageal Reflux, Diverticulosis, Gall Bladder Disease Musculoskeletal: Yes (foot surgery; BACK SURGERY) Degenerate Disk Disease, Fibromyalgia, Chronic Back Pain Endocrine: Yes (MORBID OBESITY) Diabetes, Non-Insulin dep HEENT: No Cancer: No Psychosocial: Yes (RX DRUG ABUSE/OVERDOSES) Anxiety, Depression Integumentary: No Blood Disorders: No Family Medical History Cancer, CAD Under 55 Years Old, Diabetes SOCIAL HISTORY: -SMOKES 1 PPD -ETOH--OCCASIONAL USE--HX OF ABUSE/HEAVY USE -DRUGS--EXTENSIVE RX DRUG ABUSE AND MULTIPLE OVERDOSES--JUJU OPIATES AND BENZODIAZEPINES PT ADMITTED 10/03/21 OBTUNDED AND HIGHLY SUSPECTED OVERDOSE OF ROBAXIN AT THAT TIME. PAST SURGICAL HISTORY: -LUMBAR SPINE SURGERY 2017 -FOOT SURGERY -BILATERAL TUBAL LIGATION -HYSTERECTOMY -TONSILLECTOMY -CHOLECYSTECTOMY Physical Exam Vital Signs Vital Signs - First Documented 05/07/22 22:39 Temp 36.5 Pulse 71 Resp 20 B/P (MAP) 105/78 (87) Pulse Ox 97 O2 Delivery Room Air Capillary Refill : Less Than 3 Seconds Height, Weight, BMI Height: 5'8.00" Weight: 220lbs. oz. 99.463412ur; 31.28 BMI Method:Stated General Appearance: No Apparent Distress, WD/WN, Obese, Other (REEKS OF CIGARETTES) HEENT: PERRL/EOMI Respiratory: Normal Breath Sounds, No Accessory Muscle Use, No Respiratory Distress Cardiovascular: Regular Rate, Rhythm, No Murmur Gastrointestinal: Non Tender, Soft Back: No CVA Tenderness Extremity: Normal Capillary Refill, No Pedal Edema Neurologic/Psychiatric: Alert, Oriented x3 (BUT POOR MEMORY), No Motor/Sensory Deficits, oral surgery assistant II-XII Norm as Tested Skin: Normal Color, Warm/Dry Focused Exam Lactate Level 05/07/22 22:42: Lactic Acid Level 1.41 Lactic Acid Level Laboratory Tests Test 05/07/22 22:42 Lactic Acid Level 1.41 MMOL/L (0.50-2.00) Procedures/Interventions Date of ETT Placement: Aug 16, 2019 Time of ETT Placement: 0 Progress/Results/Core Measures Suspected Sepsis Infection Criteria Present: None Sepsis Screen: No Definite Risk SIRS Temperature: Pulse: 67 Respiratory Rate: 20 Laboratory Tests 05/07/22 22:42: White Blood Count 9.1 Blood Pressure 107 /64 Mean: 78 05/07/22 22:42: Lactic Acid Level 1.41 Laboratory Tests 05/07/22 22:42: Creatinine 0.97, INR Comment 1.0, Platelet Count 297, Total Bilirubin 0.4 Results/Orders Lab Results Laboratory Tests Test 05/07/22 22:42 05/07/22 23:25 05/07/22 23:59 Range/Units White Blood Count 9.1 4.3-11.0 10^3/uL Red Blood Count 3.24 L 3.80-5.11 10^6/uL Hemoglobin 11.1 L 11.5-16.0 g/dL Hematocrit 30 L 35-52 % Mean Corpuscular Volume 93 80-99 fL Mean Corpuscular Hemoglobin 34 25-34 pg Mean Corpuscular Hemoglobin Concent 37 H 32-36 g/dL Red Cell Distribution Width 12.0 10.0-14.5 % Platelet Count 297 130-400 10^3/uL Mean Platelet Volume 8.3 L 9.0-12.2 fL Immature Granulocyte % (Auto) 0 % Neutrophils (%) (Auto) 62 42-75 % Lymphocytes (%) (Auto) 31 12-44 % Monocytes (%) (Auto) 6 0-12 % Eosinophils (%) (Auto) 1 0-10 % Basophils (%) (Auto) 0 0-10 % Neutrophils # (Auto) 5.6 1.8-7.8 10^3/uL Lymphocytes # (Auto) 2.8 1.0-4.0 10^3/uL Monocytes # (Auto) 0.6 0.0-1.0 10^3/uL Eosinophils # (Auto) 0.1 0.0-0.3 10^3/uL Basophils # (Auto) 0.0 0.0-0.1 10^3/uL Immature Granulocyte # (Auto) 0.0 0.0-0.1 10^3/uL Erythrocyte Sedimentation Rate 16 0-30 MM/HR Prothrombin Time 13.6 12.2-14.7 SEC INR Comment 1.0 0.8-1.4 Activated Partial Thromboplast Time 44 H 24-35 SEC Sodium Level 122 *L 135-145 MMOL/L Potassium Level 3.9 3.6-5.0 MMOL/L Chloride Level 87 L 98-107 MMOL/L Carbon Dioxide Level 21 21-32 MMOL/L Anion Gap 14 5-14 MMOL/L Blood Urea Nitrogen 16 7-18 MG/DL Creatinine 0.97 0.60-1.30 MG/DL Estimat Glomerular Filtration Rate 67 BUN/Creatinine Ratio 16 Glucose Level 89 70-105 MG/DL Lactic Acid Level 1.41 0.50-2.00 MMOL/L Calcium Level 8.8 8.5-10.1 MG/DL Corrected Calcium 8.7 8.5-10.1 MG/DL Magnesium Level 1.6 1.6-2.4 MG/DL Total Bilirubin 0.4 0.1-1.0 MG/DL Aspartate Amino Transf (AST/SGOT) 16 5-34 U/L Alanine Aminotransferase (ALT/SGPT) 12 0-55 U/L Alkaline Phosphatase 71 40-136 U/L Total Creatine Kinase 52 29-168 U/L Creatine Kinase MB 1.3 <6.6 NG/ML Myoglobin 53.8 10.0-92.0 NG/ML Troponin I < 0.028 <0.028 NG/ML C-Reactive Protein High Sensitivity 0.16 0.00-0.50 MG/DL B-Type Natriuretic Peptide < 10.0 <100.0 PG/ML Total Protein 6.3 L 6.4-8.2 GM/DL Albumin 4.1 3.2-4.5 GM/DL Amylase Level 53 25-125 U/L Lipase 58 8-78 U/L Procalcitonin 0.05 <0.10 NG/ML Free Thyroxine 1.01 0.70-1.48 NG/DL TSH [place] Testing 0.33 L 0.35-4.94 UIU/ML Acetaminophen Level < 10 L 10-30 UG/ML Serum Alcohol < 10 <10 MG/DL Influenza Type A (RT-PCR) Not Detected Not Detecte Influenza Type B (RT-PCR) Not Detected Not Detecte SARS-CoV-2 RNA (RT-PCR) Not Detected Not Detecte Urine Color YELLOW Urine Clarity CLEAR Urine pH 5.5 5-9 Urine Specific [place] 1.015 L 1.016-1.022 Urine Protein NEGATIVE NEGATIVE Urine Glucose (UA) NEGATIVE NEGATIVE Urine Ketones NEGATIVE NEGATIVE Urine Nitrite NEGATIVE NEGATIVE Urine Bilirubin NEGATIVE NEGATIVE Urine Urobilinogen 0.2 < = 1.0 MG/DL Urine Leukocyte Esterase TRACE H NEGATIVE Urine RBC (Auto) NEGATIVE NEGATIVE Urine RBC NONE /HPF Urine WBC NONE /HPF Urine Crystals NONE /LPF Urine Bacteria NEGATIVE /HPF Urine Casts NONE /LPF Urine Mucus NEGATIVE /LPF Urine Culture Indicated NO Urine Opiates Screen NEGATIVE NEGATIVE Urine Oxycodone Screen NEGATIVE NEGATIVE Urine Methadone Screen NEGATIVE NEGATIVE Urine Propoxyphene Screen NEGATIVE NEGATIVE Urine Barbiturates Screen NEGATIVE NEGATIVE Ur Tricyclic Antidepressants Screen NEGATIVE NEGATIVE Urine Phencyclidine Screen NEGATIVE NEGATIVE Urine Amphetamines Screen NEGATIVE NEGATIVE Urine Methamphetamines Screen NEGATIVE NEGATIVE Urine Benzodiazepines Screen NEGATIVE NEGATIVE Urine Cocaine Screen NEGATIVE NEGATIVE Urine Cannabinoids Screen NEGATIVE NEGATIVE My Orders Orders - SRUTHI SCHUMACHER DO Ed Iv/Invasive Line Start (05/07/22 22:55) Ekg Tracing (05/07/22:55) Monitor-Rhythm Ecg Trace Only (05/07/22:) Acetaminophen (05/07/22:) Alcohol (05/07/22:55) Amylase (05/07/22 22:55) Bnp Roberta (05/07/22 22:55) Cbc With Automated Diff (05/07/22:) Comprehensive Metabolic Panel (05/07/22:) Creatine Kinase (05/07/22 22:55) Creatine Kinase Mb (05/07/22 22:55) Hs C Reactive Protein (05/07/22 22:55) Drug Screen Stat (Urine) (05/07/22:55) Lactic Acid Analyzer (05/07/22:55) Lipase (05/07/22 22:55) Magnesium (05/07/22 22:55) Procalcitonin (Pct) (05/07/22:55) Protime With Inr (05/07/22:) Partial Thromboplastin Time (05/07/22 22:55) Thyroid Analyzer (05/07/22 22:55) Ua Culture If Indicated (05/07/22 22:55) Blood Culture (05/07/22 22:55) Erythrocyte Sedimentation Rate (05/07/22 22:55) Myoglobin Serum (05/07/22 22:55) Troponin I Roberta (05/07/22 22:55) Chest 1 View, Ap/Pa Only (05/07/22 22:55) Covid 19 Inhouse Test (05/07/22 22:55) Influenza A And B By Pcr (05/07/22 22:55) Isolation Central Supply Req (05/07/22 22:55) Ed Iv/Invasive Line Start (05/07/22 23:03) Ns Iv 1000 Ml (Sodium Chloride 0.9%) (05/07/22 23:15) Free T4 (Free Thyroxine) (05/07/22 22:42) Ed Iv/Invasive Line Start (05/08/22 00:27) Ns Iv 1000 Ml (Sodium Chloride 0.9%) (05/08/22 00:30) Vital Signs/I&O 05/07/22 22:39 Temp 36.5 Pulse 71 Resp 20 B/P (MAP) 105/78 (87) Pulse Ox 97 O2 Delivery Room Air Capillary Refill : Less Than 3 Seconds Blood Pressure Mean: 78 Progress Note : Progress Note GIVEN IV FLUIDS VITALS STABLE NO HYPOTENSION UNEVENTFUL ER STAY ECG Initial ECG Impression Date: May 07, 2022 Initial ECG Impression Time: 23:10 Initial ECG Rate: 69 Initial ECG Rhythm: Normal Sinus Diagnostic Imaging Comments CXR--NO ACUTE PROCESS, PENDING RADIOLOGIST REVIEW Reviewed: Reviewed by Me Departure Communication (Admissions) 0100--SPOKE WITH DR. REED, HOSPITALIST FOR [facility]. ACCEPTS PT FOR ADMIT. ORDERS NOTED. Impression Primary Impression: Hyponatremia Additional Impressions: NIDDM HX HYPERTENSION Disposition: ADMITTED INPATIENT Condition: Stable Admissions Decision to Admit Reason: Admit from ER (General) Decision to Admit/Date: May 08, 2022 Time/Decision to Admit Time: 01:00 Departure-Patient Inst. Referrals: PARIS VANCE DO Primary Care Physician SRUTHI SCHUMACHER DO May 08, 2022 06:46
--- NOTE | 2022-05-08 07:15 | Diagnostic Imaging Report ---
INDICATION: Chest pain. TECHNIQUE: Single view chest 11:08 PM. CORRELATION STUDY: 10/30/2021 FINDINGS: Heart size and mediastinum are mildly prominent but generally stable. Vasculature overall within normal limits. Perhaps minimal atelectasis left lung base. Lungs otherwise clear. IMPRESSION: 1. Question minimal left basilar atelectasis. Dictated by: Dictated on workstation # [id number]
[2022-05-08 07:42] LABS: BASOPHILS % (AUTO) 0 % (0-10); EOSINOPHILS # (AUTO) 0.1 10^3/uL (0.0-0.3); EOSINOPHILS % (AUTO) 1 % (0-10); HEMATOCRIT 30 % (35-52); HEMOGLOBIN 10.7 g/dL (11.5-16.0); LYMPHOCYTES # (AUTO) 1.5 10^3/uL (1.0-4.0); LYMPHOCYTES % (AUTO) 26 % (12-44); MEAN CORPUSCULAR HEMOGLOBIN 34 pg (25-34); MEAN CORPUSCULAR HGB CONC 35 g/dL (32-36); MEAN CORPUSCULAR VOLUME 96 fL (80-99); MEAN PLATELET VOLUME 8.4 fL (9.0-12.2); MONOCYTES # (AUTO) 0.4 10^3/uL (0.0-1.0); MONOCYTES % (AUTO) 6 % (0-12); NEUTROPHILS # (AUTO) 3.7 10^3/uL (1.8-7.8); NEUTROPHILS % (AUTO) 66 % (42-75); PLATELET COUNT 275 10^3/uL (130-400); WHITE BLOOD COUNT 5.6 10^3/uL (4.3-11.0)
[2022-05-08 08:13] LABS: CALCIUM 8.5 MG/DL (8.5-10.1); CREATININE SERUM 0.77 MG/DL (0.60-1.30); POTASSIUM 4.5 MMOL/L (3.6-5.0)
[2022-05-08] MEDS: SODIUM CHLORIDE 1 GM TABLET PO SCH ×2 (09:12→20:20)
[2022-05-08] MEDS ORDERED: ANTACID SUSP 30 ML UDC (MYLANTA) PO PRN (10:15)
[2022-05-08] MEDS ORDERED: ACETAMINOPHEN 325 MG TABLET PO PRN (10:15)
[2022-05-08] MEDS ORDERED: SENNA W/DOCUSATE (SENOKOT S) TABLET PO PRN (10:15)
[2022-05-08] MEDS ORDERED: ONDANSETRON 4 MG/2 ML (SDV) Z0FRAN IVP PRN (10:15)
[2022-05-08] MEDS ORDERED: LACTULOSE SYRUP 10GM/15ML (ENULOSE) 30ML UDC PO PRN (10:15)
[2022-05-08] MEDS ORDERED: LORazepam INJ 2 MG/ML (ATIVAN) VIAL IM/IV PRN (10:15)
[2022-05-08] MEDS ORDERED: 1/2 NS IV SOLUTION 1,000 ML IV PRN (10:15)
[2022-05-08] MEDS ORDERED: diphenhydrAMINE 25 MG TAB (BENADRYL) PO PRN (10:15)
[2022-05-08] MEDS ORDERED: ONDANSETRON 4 MG/2 ML (SDV) Z0FRAN IV PRN (10:15)
[2022-05-08] MEDS ORDERED: LORazepam INJ 2 MG/ML (ATIVAN) VIAL IV PRN (10:15)
[2022-05-08] MEDS ORDERED: D5 1/2 NS 1000 ML IV SOLUTION 1,000 ML IV PRN (10:15)
[2022-05-08] MEDS ORDERED: ONDANSETRON 4 MG (ZOFRAN) ORAL DISSOLVE TAB SL PRN (10:15)
[2022-05-08] MEDS ORDERED: MELATONIN 3 MG TABLET PO PRN (10:15)
[2022-05-08] MEDS ORDERED: HOLD METFORMIN - RECEIVED CONTRAST 20 ML VIAL IV SCH (10:15)
[2022-05-08] MEDS ORDERED: IOHEXOL 350 MG/ML 100 ML (OMNIPAQUE 350) VIAL IV ONE (10:15)
[2022-05-08] MEDS ORDERED: MENTHOL/ZINC OXIDE (CALMOSEPTINE) 113 GM TUBE TP PRN (10:15)
[2022-05-08] MEDS ORDERED: LORazepam 1 MG (ATIVAN) TAB PO PRN (10:15)
[2022-05-08] MEDS ORDERED: CALCIUM CARBONATE 500 MG (TUMS) TAB.CHEW PO PRN (10:15)
[2022-05-08] MEDS ORDERED: LOPERAMIDE 2 MG (IMODIUM) TABLET PO PRN (10:15)
[2022-05-08] MEDS ORDERED: NS 100 ML (IVPB) BAG IV ONE (10:15)
[2022-05-08] MEDS ORDERED: DOCUSATE SODIUM 100 MG (COLACE) CAP PO PRN (10:15)
[2022-05-08] MEDS ORDERED: CATHETER FLUSH 10 ML SYR IV PRN (10:15)
[2022-05-08] MEDS ORDERED: ENOXAPARIN 40 MG/0.4 ML (LOVENOX) SYR SC SCH (11:00)
--- NOTE | 2022-05-08 11:08 | History & Physical-Hospitalist ---
DEEPALI ECHEVARRIA 05/08/22 1108: History of Present Illness HPI/Chief Complaint Patient is a 62-year-old female with a history of HTN, fibromyalgia, and DM who presented to the ED on 05/07 with chief complaint of weakness and hypotension. History is limited due to the patient being a poor historian. The patient states that she began feeling weak and fatigued approximately 4-5 days ago and that their weakness slowly worsened over the last few days. Yesterday she was walking to do laundry when she began to feel dizzy and started stumbling, and that her friends steadied her and helped her back to her room. She reports that one of her friends took her BP and measured it at 50/61. Blood pressure was 105/61 on admission and has remained stable. The patient is a current smoker and has a history of heavy alcohol use and prescription drug abuse and overdoses. The patient was found to be hyponatremic at 122 on admission. This has improved to 127 today. CXR showed minimal left basilar atelectasis. CT of the chest showed essentially clear lungs with no mass, lesion, fluid, or acute abnormality. The patient is awake and alert on exam today, no family at bedside. She answers all questions but does seem slightly confused. She feels that her fatigue and weak ness are approximately the same as the time of admission. The patient endorses a mild, intermittent cough as well as some generalized muscle pain that she attributes to her fibromyalgia. Source: patient, RN/MD, EMS notes reviewed Date Seen 05/08/22 Attending Physician Benji Castro DO PCP Admitting Physician: Mae Lebron DO Attending Physician: Mae Lebron DO Referring Physician Date of Admission May 08, 2022 at 01:05 Home Medications & Allergies Home Medications Reviewed patient Home Medication Reconciliation performed by pharmacy medication reconciliations hearing aide technician and/or nursing. Patients Allergies have been reviewed. Allergies Allergies Coded Allergies Influenza Virus Vaccines (Verified Allergy, Unknown, 10/28/21) tramadol (Unverified Allergy, Unknown, pt rec'd hydrocodone in past, 05/08/22) Uncoded Allergies PNEUMONIA SHOT ( Allergy, Unknown, 11/22/16) Past Adqhuhp-Viqkdz-Dnobid Hx Patient Social History Tobacco Use?: Yes Tobacco type used: Cigarettes Smoking Status: Current Everyday Smoker Use of E-Cig and/or Vaping dev: No Substance use?: No Alcohol Use?: Yes Pt feels they are or have been: No Immunizations Up To Date First/Initial COVID19 Vaccinat: N/A Second COVID19 Vaccination Mariano: N/A Tetanus Booster (TDap): Unknown PED Vaccines UTD: Yes Seasonal Allergies Seasonal Allergies: No Current Status Advance Directives: No Communicates: Verbally Primary Language: Djiboutian Preferred Spoken Language: Djiboutian Is interpretation needed?: No Sensory deficits: Vision impairment Implanted or Applied Medical D: Orthopedic hardware Past Medical History Surgeries: Gallbladder, Hysterectomy, Orthopedic, Tonsillectomy, Tubal Ligation Asthma, Pneumonia, COPD Currently Using CPAP: No High Cholesterol, Hypertension Headaches /Migraines [employer] History: Menopausal Gastroesophageal Reflux, Diverticulosis, Gall Bladder Disease Degenerate Disk Disease, Fibromyalgia, Chronic Back Pain Diabetes, Non-Insulin dep Anxiety, Depression Blood Disorders: No PMHx: DMII Chronic back pain Anxiety HLD HTN COPD Depression GERD SurgHx: Tonsillectomy Hysterectomy with BSO Left foot orthopedic surgery Spinal surgery Family Medical History Cancer, CAD Under 55 Years Old, Diabetes SOCIAL HISTORY: -SMOKES 1 PPD -ETOH--OCCASIONAL USE--HX OF ABUSE/HEAVY USE -DRUGS--EXTENSIVE RX DRUG ABUSE AND MULTIPLE OVERDOSES--JUJU OPIATES AND BENZODIAZEPINES PT ADMITTED 10/03/21 OBTUNDED AND HIGHLY SUSPECTED OVERDOSE OF ROBAXIN AT THAT TIME. PAST SURGICAL HISTORY: -LUMBAR SPINE SURGERY 2017 -FOOT SURGERY -BILATERAL TUBAL LIGATION -HYSTERECTOMY -TONSILLECTOMY -CHOLECYSTECTOMY Review of Systems Constitutional: chills (States always cold); No fever; weakness EENTM: No hearing loss, No blurred vision Respiratory: cough (mild, intermittent); No short of breath Cardiovascular: No chest pain, No palpitations Gastrointestinal: No nausea, No vomiting Genitourinary: No dysuria, No hematuria Musculoskeletal: muscle pain (fibromyalgia) Skin: No change in color, No change in hair/nails Psychiatric/Neurological: Anxiety, Weakness Physical Exam Physical Exam Vital Signs Vital Signs - First Documented 05/07/22 22:39 Temp 36.5 Pulse 71 Resp 20 B/P (MAP) 105/78 (87) Pulse Ox 97 O2 Delivery Room Air Capillary Refill : Less Than 3 Seconds Height, Weight, BMI Height: 5'8.00" Weight: 220lbs. oz. 99.202719pp; 31.28 BMI Method:Stated General Appearance: No Apparent Distress, WD/WN HEENT: PERRL/EOMI Neck: Non Tender, Supple Respiratory: Chest Non Tender, Crackles (b/l) Cardiovascular: Regular Rate, Rhythm, No Murmur Gastrointestinal: Non Tender, Soft Rectal: Deferred Extremity: Normal Capillary Refill, Non Tender Neurologic/Psychiatric: Alert, Oriented x3 Skin: Normal Color, Warm/Dry Lymphatic: No Adenopathy Results Results/Procedures Labs Laboratory Tests 05/07/22 22:42 05/08/22 07:30 Patient resulted labs reviewed. Assessment/Plan Admission Diagnosis Admission Status: Observation Assessment and Plan Hyponatremia Fatigue Weakness COPD HTN DM HLD Anxiety Panic attacks Depression Fibromyalgia Obesity - BMI 31.3 History of Rx drug abuse Anemia Monitor and replace electrolytes as needed Monitor Hg, transfuse if needed Counseled on benefits of weight loss Continue IV fluids Lovenox for DVT prophylaxis MAE LEBRON DO 05/09/22 0542: History of Present Illness Source: patient, RN/MD Time Seen by a Provider: 09:00 Past Jrqvtif-Pnghve-Zeemrc Hx Patient Social History Marrital Status: single Employed/Student: unemployed Smoking Status: Current Everyday Smoker Smokeless Tobacco Frequency: Current Everyday User Alcohol Use?: Yes Alcohol Frequency: Daily Review of Systems Constitutional: see HPI, weakness Physical Exam Physical Exam General Appearance: No Apparent Distress, Chronically ill Eyes: Right Eye Normal Inspection, Right Eye PERRL HEENT: PERRL/EOMI, Normal ENT Inspection, Pharynx Normal, Moist Mucous Membranes Neck: Full Range of Motion, Normal Inspection, Non Tender Respiratory: Chest Non Tender, Lungs Clear, Normal Breath Sounds, No Accessory Muscle Use, No Respiratory Distress Cardiovascular: Regular Rate, Rhythm, No Edema, No Gallop, No JVD, No Murmur, Normal Peripheral Pulses Gastrointestinal: Normal Bowel Sounds, No Organomegaly, No Pulsatile Mass, Non Tender, Soft Back: Normal Inspection, No CVA Tenderness, No Vertebral Tenderness Extremity: Normal Capillary Refill, Normal Inspection, Normal Range of Motion, Non Tender, No Calf Tenderness, No Pedal Edema Neurologic/Psychiatric: Alert, Oriented x3, No Motor/Sensory Deficits, Normal Mood/Affect Skin: Normal Color, Warm/Dry Lymphatic: No Adenopathy Assessment/Plan Admission Diagnosis Assessment: Hyponatremia Weakness Abnormal chest x-ray Regular alcohol user Plan: CIWA Fluid restriction Ambulate Admission Status: Observation Supervisory-Addendum Brief Verification & Attestation Participated in pt care: history, MDM, physical Personally performed: exam, history, MDM, supervision of care Care discussed with: Medical Student Procedures: n/a Results interpretation: Verified all documentation Verification and Attestation of Medical Student E/M Service A medical student performed and documented this service in my presence. I reviewed and verified all information documented by the medical student and made modifications to such information, when appropriate. I personally performed the physical exam and medical decision making. Mae Lebron, May 09, 2022,05:42 DEEPALI ECHEVARRIA May 08, 2022 11:08 MAE LEBRON DO May 09, 2022 05:42
--- NOTE | 2022-05-08 11:52 | Diagnostic Imaging Report ---
INDICATION: Hyponatremia, history of smoking. TECHNIQUE: Multiple contiguous axial images were obtained through the chest after administration of intravenous contrast. Auto Exposure Controls were utilized during the CT exam to meet ALARA standards for radiation dose reduction. COMPARISON: Comparison made to 10/28/2021. FINDINGS: There are a few minimal nodes in the mediastinum, none of which appear of pathologic size. There are no enlarged hilar nodes or axillary nodes. There are no chest wall lesions. There is no pleural or pericardial fluid. Visualized portions of the upper abdomen show prior cholecystectomy but no acute finding. Lung parenchymal windows demonstrated no focal infiltrate or nodule. Compared with prior study of 10/28/2021, the alveolar infiltrate in the left lower lobe has resolved, compatible with resolved pneumonia. IMPRESSION: Resolution of left lower lobe infiltrate compared to the prior study, compatible with resolved pneumonia. Lungs now appear essentially clear. No mass lesion or pleural fluid or acute abnormality. Dictated by: Dictated on workstation # [id number]
[2022-05-08] MEDS: HYDROcodone/APAP 5 MG/325 MG (LORTAB) TAB PO PRN ×2 (13:56→22:08)
[2022-05-08] MEDS ORDERED: POLY238P10 PO (15:40)
[2022-05-08] MEDS ORDERED: DOCU100C37 PO (15:40)
[2022-05-08] MEDS ORDERED: SIMV40TA25 PO (15:40)
[2022-05-08] MEDS ORDERED: ALBU18HF2 INH (15:40)
[2022-05-08] MEDS ORDERED: HYDR12.56 PO (15:40)
[2022-05-08] MEDS ORDERED: PREG150C46 PO (15:40)
[2022-05-08] MEDS ORDERED: DONE5TAB30 PO (15:40)
[2022-05-08] MEDS ORDERED: LISI40TA9 PO (15:40)
[2022-05-08] MEDS: SENNA W/DOCUSATE (SENOKOT S) TABLET PO SCH (20:18)
[2022-05-08] MEDS: MAGNESIUM OXIDE (MAG-OX)400 MG TAB PO SCH (20:19)
[2022-05-08] MEDS: polyethylene glycoL POWDER 17 GM (MIRALAX) PACK PO SCH (20:19)
[2022-05-09 03:09] VITALS: BP 113/59
[2022-05-09] MEDS: HYDROcodone/APAP 5 MG/325 MG (LORTAB) TAB PO PRN ×2 (03:17→08:15)
[2022-05-09 05:24] LABS: BASOPHILS % (AUTO) 0 % (0-10); EOSINOPHILS # (AUTO) 0.1 10^3/uL (0.0-0.3); EOSINOPHILS % (AUTO) 1 % (0-10); HEMATOCRIT 28 % (35-52); HEMOGLOBIN 9.8 g/dL (11.5-16.0); LYMPHOCYTES % (AUTO) 42 % (12-44); MEAN CORPUSCULAR HEMOGLOBIN 34 pg (25-34); MEAN CORPUSCULAR HGB CONC 35 g/dL (32-36); MEAN CORPUSCULAR VOLUME 98 fL (80-99); MEAN PLATELET VOLUME 8.6 fL (9.0-12.2); MONOCYTES # (AUTO) 0.3 10^3/uL (0.0-1.0); MONOCYTES % (AUTO) 6 % (0-12); NEUTROPHILS # (AUTO) 2.4 10^3/uL (1.8-7.8); NEUTROPHILS % (AUTO) 51 % (42-75); PLATELET COUNT 261 10^3/uL (130-400); WHITE BLOOD COUNT 4.7 10^3/uL (4.3-11.0)
[2022-05-09 05:47] LABS: CALCIUM 8.5 MG/DL (8.5-10.1); CREATININE SERUM 0.67 MG/DL (0.60-1.30); POTASSIUM 4.4 MMOL/L (3.6-5.0)
[2022-05-09] MEDS ORDERED: MULTIVIT W/MINERALS TAB (THERAGRAN M) PO SCH (07:00)
[2022-05-09] MEDS ORDERED: THIAMINE 100 MG (VITAMIN B-1) TAB PO SCH (07:00)
[2022-05-09 08:00] VITALS: BP 126/64
[2022-05-09] MEDS: polyethylene glycoL POWDER 17 GM (MIRALAX) PACK PO SCH ×2 (08:01→08:10)
[2022-05-09] MEDS: SENNA W/DOCUSATE (SENOKOT S) TABLET PO SCH (08:02)
[2022-05-09] MEDS: MAGNESIUM OXIDE (MAG-OX)400 MG TAB PO SCH (08:02)
[2022-05-09] MEDS: SODIUM CHLORIDE 1 GM TABLET PO SCH (08:02)
[2022-05-09] MEDS ORDERED: FOLIC ACID 1 MG TAB PO SCH (09:00)
--- NOTE | 2022-05-09 09:44 | D/C HH Face to Face Order ---
D/C Face to Face Orders Reconcile Patient Problems Problems Reviewed?: Yes Instructions for Patient Via [facility], Patient Instructions/FollowUp: pcp 1 week Physician to follow Patient: chc Discharge Diet for Home: No Restrictions Patient Problems: hyponatremia Patient Data-Allergies,Ht & Wt Patient Allergies: Coded Allergies: Influenza Virus Vaccines (Verified Allergy, Unknown, 10/28/21) tramadol (Unverified Allergy, Unknown, pt rec'd hydrocodone in past, 05/08/22) Uncoded Allergies: PNEUMONIA SHOT (Allergy, Unknown, 11/22/16) Height (Feet): 5 Height (Inches): 8.00 Weight (Pounds): 220 Home Health Need/Face to Face Date of Face to Face: May 09, 2022 Clinical Findings: Generalized weakness and fatigue, Instability, Muscle weakness I have seen Pt evqo-bg-sdde: Yes Discharged To: Home Diagnosis/Conditions: Hyponatremia Patient is Homebound due to: CognItive deficits, Loulou fall risk due to instabilty, Muscle weakness Homebound Status Due to the above stated illness, injury or surgical procedure (medical condit ion or diagnosis) and associated clinical findings, the patient is homebound because of his/her inability to leave home except with aid of a supportive device and/or person AND leaving the home requires a considerable and taxing effort or is medically contraindicated. Pt req the following assistanc: Walker Home Health Nursing Orders Home Health Services Order: Nursing Services, Laboratory Technician-Evaluate & Treat, Physical Therapy-Evaluate & Treat Home Health Infusion Therapy Line Start Date: May 07, 2022 Certify Stmt I certify that this patient is under my care and that I, a nurse practitioner or a physician; a bus assistant working with me, had a face to face encounter that - meets the physician face to face encounter requirements with this patient as dated. CHARLIE REED DO May 09, 2022 09:44
--- NOTE | 2022-05-09 09:45 | Discharge Summary ---
Discharge Summary Hospital Course Was the Problem List Reviewed?: Yes Problems/Dx: (1) Hyponatremia Status: Resolved (2) Altered mental status Status: Resolved Hospital Course Date of Admission: May 08, 2022 at 01:05 Admission Diagnosis : Family Physician/Provider: Benji Castro DO Date of Discharge: 05/09/22 Discharge Diagnosis: [ ] Hospital Course: Patient is a 62-year-old female with a history of HTN, fibromyalgia, and DM who presented to the ED on 05/07 with chief complaint of weakness and hypotension. The patient states that she began feeling weak and fatigued approximately 4-5 days prior to admission and that this slowly progressed over the next few days. The day of admission she was walking to do laundry when she began to feel dizzy and started stumbling, and states that her friends steadied her and helped her back to her room. She reports that one of her friends took her BP and measured it at 50/61. Blood pressure was 105/61 on admission and has remained stable throughout the course of her stay. The patient is a current smoker and has a history of heavy alcohol use and prescription drug abuse and overdoses. The patient was found to be hyponatremic at 122 on admission and was started on sodium replacement improving to 127 the next day and 132 today. CXR showed minimal left basilar atelectasis. CT of the chest showed essentially clear lungs with no mass, lesion, fluid, or acute abnormality. The patient's weakness and fatigue improved throughout the course of her stay and she states that she feels close to her baseline. The patient had fired her previous home health worker prior to admission, and social services manager were consulted in order to help the patient obtain home health. The patient is being prepared for discharge this afternoon. DEEPALI ECHEVARRIA Labs and Pending Lab Test: Laboratory Tests 05/09/22 05:00: White Blood Count 4.7, Red Blood Count 2.91L, Hemoglobin 9.8L, Hematocrit 28L, Mean Corpuscular Volume 98, Mean Corpuscular Hemoglobin 34, Mean Corpuscular Hemoglobin Concent 35, Red Cell Distribution Width 12.7, Platelet Count 261, Mean Platelet Volume 8.6L, Immature Granulocyte % (Auto) 0, Neutrophils (%) (Auto) 51, Lymphocytes (%) (Auto) 42, Monocytes (%) (Auto) 6, Eosinophils (%) (Auto) 1, Basophils (%) (Auto) 0, Neutrophils # (Auto) 2.4, Lymphocytes # (Auto) 2.0, Monocytes # (Auto) 0.3, Eosinophils # (Auto) 0.1, Basophils # (Auto) 0.0, Immature Granulocyte # (Auto) 0.0, Sodium Level 132L, Potassium Level 4.4, Chloride Level 102, Carbon Dioxide Level 20L, Anion Gap 10, Blood Urea Nitrogen 14, Creatinine 0.67, Estimat Glomerular Filtration Rate 100, BUN/Creatinine Ratio 21, Glucose Level 87, Calcium Level 8.5 Microbiology 05/07/22 Blood Culture - Preliminary, Resulted No growth Home Meds Active Reported Gavilax (Polyethylene Glycol 3350) 17 Gram/Dose Powder 17 Gm PO Q48H Pregabalin 150 Mg Capsule 150 Mg PO TID Donepezil HCl 5 Mg Tablet 5 Mg PO HS Hydrochlorothiazide 12.5 Mg Tablet 12.5 Mg PO DAILY Simvastatin 40 Mg Tablet 40 Mg PO HS Lisinopril 40 Mg Tablet 40 Mg PO DAILY Ventolin Hfa (Albuterol Sulfate) 90 Mcg Hfa.aer.ad 2 Puff INH Q6H PRN Docusate Sodium 100 Mg Capsule 100 Mg PO DAILY PRN Viibryd (Vilazodone Hydrochloride) 20 Mg Tablet 20 Mg PO DAILY Vitamin D3 (Cholecalciferol (Vitamin D3)) 25 Mcg Tablet 25 Mcg PO DAILY Symbicort 160-4.5 Mcg Inhaler (Budesonide/Formoterol Fumarate) 160 Mcg-4.5 Mcg/Actuation Hfa.aer.ad 2 Puff IH BID PRN Omeprazole 20 Mg Capsule.dr 20 Mg PO DAILY Aspirin EC (Aspirin) 81 Mg Tablet.dr 81 Mg PO DAILY Meloxicam 15 Mg Tablet 15 Mg PO DAILY Metformin HCl ER (Metformin HCl) 500 Mg Tab.er.24h 500 Mg PO DAILY Assessment/Pt Instructions PCP in 1 week Discharge Planning: <30 minutes discharge planning Discharge Physical Examination Vital Signs Vital Signs Date Time Temp Pulse Resp B/P (MAP) Pulse Ox O2 Delivery O2 Flow Rate FiO2 05/09/22 08:00 36.6 67 18 126/64 (84) 96 Room Air General Appearance: No Apparent Distress, WD/WN, Chronically ill Allergies: Coded Allergies: Influenza Virus Vaccines (Verified Allergy, Unknown, 10/28/21) tramadol (Unverified Allergy, Unknown, pt rec'd hydrocodone in past, 05/08/22) Uncoded Allergies: PNEUMONIA SHOT (Allergy, Unknown, 11/22/16) Discharge Summary Date of Admission May 08, 2022 at 01:05 Date of Discharge Discharge Date: May 09, 2022 Admission Diagnosis Assessment: Hyponatremia Weakness Abnormal chest x-ray Regular alcohol user Plan: CIWA Fluid restriction Ambulate CHARLIE REED DO May 09, 2022 09:45
--- NOTE | 2022-05-09 10:59 | Progress Note ---
DEEPALI ECHEVARRIA 05/09/22 1059: Progress Note Patient is a 62-year-old female with a history of HTN, fibromyalgia, and DM who presented to the ED on 05/07 with chief complaint of weakness and hypotension. The patient states that she began feeling weak and fatigued approximately 4-5 days prior to admission and that this slowly progressed over the next few days. The day of admission she was walking to do laundry when she began to feel dizzy and started stumbling, and states that her friends steadied her and helped her back to her room. She reports that one of her friends took her BP and measured it at 50/61. Blood pressure was 105/61 on admission and has remained stable throughout the course of her stay. The patient is a current smoker and has a history of heavy alcohol use and prescription drug abuse and overdoses. The patient was found to be hyponatremic at 122 on admission and was started on sodium replacement improving to 127 the next day and 132 today. CXR showed minimal left basilar atelectasis. CT of the chest showed essentially clear lungs with no mass, lesion, fluid, or acute abnormality. The patient's weakness and fatigue improved throughout the course of her stay and she states that she feels close to her baseline. The patient had fired her previous home health worker prior to admission, and social media campaign manager were consulted in order to help the patient obtain home health. The patient is being prepared for discharge this afternoon. MAE LEBRON DO 05/10/22 0549: Supervisory-Addendum Brief Verification & Attestation Participated in pt care: history, MDM, physical Personally performed: exam, history, MDM, supervision of care Care discussed with: Medical Student Procedures: n/a Results interpretation: Verified all documentation Verification and Attestation of Medical Student E/M Service A medical student performed and documented this service in my presence. I reviewed and verified all information documented by the medical student and made modifications to such information, when appropriate. I personally performed the physical exam and medical decision making. Mae Lebron, May 10, 2022,05:49 DEEPALI ECHEVARRIA May 09, 2022 10:59 MAE LEBRON DO May 10, 2022 05:49
[2022-05-09 11:07] VITALS: BP 126/64
== END 2022-05-09 11:03 | disposition home health service (06) | DRG 641 ==
LOC: EDUNIT# 22:35 → ER 22:36 → CSD 05-08 01:05 → 4TH 05-08 02:15
PROVIDERS: ADMIT Internal Medicine; ATTEND Internal Medicine
DX: E87.1 Hypo-osmolality and hyponatremia (principal); R53.1 Weakness; E11.9 Type 2 diabetes mellitus without complications; I10 Essential (primary) hypertension; M79.7 Fibromyalgia; F17.210 Nicotine dependence, cigarettes, uncomplicated; F41.0 Panic disorder [episodic paroxysmal anxiety]; F32.A Depression, unspecified; J44.9 Chronic obstructive pulmonary disease, unspecified; Z20.822 Contact with and (suspected) exposure to COVID-19; E78.00 Pure hypercholesterolemia, unspecified; K21.9 Gastro-esophageal reflux disease without esophagitis; E66.9 Obesity, unspecified; Z68.31 Body mass index [BMI] 31.0-31.9, adult; H54.7 Unspecified visual loss; F10.90 Alcohol use, unspecified, uncomplicated; Z28.310 Unvaccinated for COVID-19; Z28.9 Immunization not carried out for unspecified reason; Z86.16 Personal history of COVID-19; Z83.3 Family history of diabetes mellitus; Z82.49 Family history of ischemic heart disease and other diseases of the circulatory system; Z79.82 Long term (current) use of aspirin; Z88.7 Allergy status to serum and vaccine; Z79.84 Long term (current) use of oral hypoglycemic drugs; Z88.5 Allergy status to narcotic agent
CPT/HCPCS: 36415; 71045; 71260; 80048; 80053; 80306; 80320; 80329; 81000; 82150; 82550; 82553; 83605; 83690; 83735; 83874; 83880; 84145; 84439; 84443; 84484; 85025; 85610; 85652; 85730; 86141; 87040; 87636; 93005; 93041; 94664

== ENCOUNTER → 2022-06-12 | Outpatient (CLI) | payer MEDICARE, MEDICAID ==
[~2022-06-12] MED LIST changes: +ALBU18HF2 INH; +DOCU100C37 PO; +DONE5TAB30 PO; +HYDR12.56 PO; +LISI40TA9 PO; +POLY238P10 PO; +PREG150C46 PO
--- NOTE | 2022-06-12 10:58 | Diagnostic Imaging Report ---
PROCEDURE: MRI lumbar spine. TECHNIQUE: Multiplanar, multisequence MRI of the lumbar spine was performed without contrast. INDICATION: Lumbar spine fusion. Low back pain. COMPARISON: CT lumbar spine without contrast 10/03/2021. FINDINGS: There are 5 lumbar-type vertebral bodies for the purposes of this report. Grade 1 retrolisthesis of L2 on L3. Vertebral body heights are preserved. Modic type I degenerative endplate changes at L2-L3. No abnormal signal in the conus which terminates at L1. Normal morphology of the cauda equina. Posterior instrumentation on the right at L3-S1 with interbody fusions. Posterior instrumentation on the left at L4-S1 L3 laminectomy. The visualized pelvis and paravertebral soft tissues demonstrate no acute findings. The lower thoracic spine is included on the [id number] of the sagittal sequences only. There appears to be mild spinal canal narrowing but possible abnormal T2 signal within the thoracic cord at T10-T11. T12-L1: Posterior longitudinal ligament calcification continues to result in mild spinal canal narrowing. No lateral recess narrowing. Disc space height loss results in mild bilateral neural foraminal narrowing. L1-L2: Mild facet arthropathy. No spinal canal, lateral recess or neural foraminal narrowing. L2-L3: Retrolisthesis combines with broad-based disc bulging and facet proliferation result in severe right and moderate left lateral recess narrowing. Mild spinal canal narrowing. Severe right and mild left neural foraminal narrowing. L3-L4: Spinal canal is decompressed well. Disc space height loss contributes to [id number] bilateral neural foraminal narrowing. L4-L5: No spinal canal or lateral recess narrowing. Moderate right and mild left neural foraminal narrowing primarily due to disc space height loss. L5-S1: No spinal canal or lateral recess narrowing. Severe bilateral neural foraminal narrowing due to disc space height loss and osteophytic ridging. IMPRESSION: 1. Posterior instrumentation at L3-S1 on the right, L4-S1 on the left. Interbody fusions at L3-S1 and laminectomy at L3. 2. No high-grade spinal canal stenosis and lumbar spine. Scattered high-grade lateral recess and neural foraminal narrowing detailed above. 3. No acute osseous findings. Modic type I degenerative endplate changes at L2-L3. 4. The lower thoracic spine is included on the sagittal sequences only and demonstrates some possible abnormal T2 signal in the thoracic spinal cord at T10-T11. There is no apparent high-grade spinal canal stenosis at this level. This could be further investigated with dedicated MRI of the thoracic spine. Dictated by: Dictated on workstation # [id number]
== END ==
LOC: RAD 08:06
PROVIDERS: ATTEND Pediatrics
DX: M51.37 Other intervertebral disc degeneration, lumbosacral region (principal); M48.07 Spinal stenosis, lumbosacral region; M51.36 Other intervertebral disc degeneration, lumbar region; Z98.1 Arthrodesis status; Z98.890 Other specified postprocedural states
CPT/HCPCS: 72148

== ENCOUNTER 2022-06-18 04:42 | Emergency (ER) | payer MEDICARE, MEDICAID ==
[~2022-06-18] VITALS: Ht 170.1 cm; Wt 89.3 kg
--- NOTE | 2022-06-18 05:08 | ED Abdominal Pain ---
General Chief Complaint: Abdominal/GI Problems Stated Complaint: RT SIDE PAIN Source of Information: Patient Exam Limitations: No Limitations (FLAKITO MIRANDA MD) History of Present Illness Date Seen by Provider: Jun 18, 2022 Time Seen by Provider: 05:03 Initial Comments Patient is a 62-year-old female history of hypertension who presents to the emergency room by private vehicle chief complaint of right lower quadrant abdominal pain, right flank pain. She states she has had it continuously for 3 weeks[address] herself to the hospital this morning because the pain worsened this morning when she rolled over in bed. She states she took 3 Tylenol and 3 ibuprofen prior to arrival without any relief of her symptoms. She states she had an MRI done of her back this last week ordered by her primary care doctor and says she has a "slipped disc". She states the pain radiates from her right flank down into her right leg. She denies weakness in the extremity. No numbness. She denies fevers or chills. She is not nauseous. She is writhing around in the bed grabbing her right lower quadrant. She states she is compliant with her daily medications. She continues to smoke. She has had prior and hysterectomy. She states she was hospitalized a couple of months ago at [facility] with a "hole" in her colon that they repaired via colonoscopy. She states she is having normal bowel movements. No blood in her urine, no dysuria. Timing/Duration: 1-3 Hours, Other (3 weeks) Severity/Quality: Severe, Sharp Location: RLQ, Flank Radiation: Back Activities at Onset: Sleeping Modifying Factors: Worsens With Movement Associated Symptoms: Back Pain (right flank - lateral hip pain (ASIS)); No Swelling/Mass in Abdomen (FLAKITO MIRANDA MD) Allergies and Home Medications Allergies Coded Allergies: Influenza Virus Vaccines (Verified Allergy, Unknown, 10/28/21) tramadol (Unverified Allergy, Unknown, pt rec'd hydrocodone in past, 05/08/22) Uncoded Allergies: PNEUMONIA SHOT (Allergy, Unknown, 11/22/16) Patient Home Medication List Home Medication List Reviewed: Yes (FLAKITO MIRANDA MD) Albuterol Sulfate (Ventolin Hfa) 90 Mcg Hfa.aer.ad, 2 PUFF INH Q6H PRN for SHORTNESS OF BREATH, (Reported) Entered as Reported by: DESMOND WATTS on 05/08/22 1540 Aspirin (Aspirin EC) 81 Mg Tablet.dr, 81 MG PO DAILY, (Reported) Entered as Reported by: DESMOND WATTS on 08/17/19 1126 Budesonide/Formoterol Fumarate (Symbicort 160-4.5 Mcg Inhaler) 160 Mcg-4.5 Mcg/Actuation Hfa.aer.ad, 2 PUFF IH BID PRN for SHORTNESS OF BREATH, (Reported) Entered as Reported by: DESMOND WATTS on 08/17/19 1136 Cholecalciferol (Vitamin D3) (Vitamin D3) 25 Mcg Tablet, 25 MCG PO DAILY, (Reported) Entered as Reported by: LUTHER FLEMING on 10/03/21 1143 Docusate Sodium (Docusate Sodium) 100 Mg Capsule, 100 MG PO DAILY PRN for CONSTIPATION-1ST LINE, (Reported) Entered as Reported by: DESMOND WATTS on 05/08/22 154 Donepezil HCl (Donepezil HCl) 5 Mg Tablet, 5 MG PO HS, (Reported) Entered as Reported by: DESMOND WATTS on 05/08/22 154 Lisinopril (Lisinopril) 40 Mg Tablet, 40 MG PO DAILY, (Reported) Entered as Reported by: DESMOND WATTS on 05/08/22 154 Meloxicam (Meloxicam) 15 Mg Tablet, 15 MG PO DAILY, (Reported) Entered as Reported by: DESMOND WATTS on 08/17/19 112 Metformin HCl (Metformin HCl ER) 500 Mg Tab.er.24h, 500 MG PO DAILY, (Reported) Entered as Reported by: DESMOND WATTS on 08/17/19 112 Omeprazole (Omeprazole) 20 Mg Capsule.dr, 20 MG PO DAILY, (Reported) Entered as Reported by: DESMOND WATTS on 08/17/19 113 Polyethylene Glycol 3350 (Gavilax) 17 Gram/Dose Powder, 17 GM PO Q48H, (Reported) Entered as Reported by: DESMOND WATTS on 05/08/22 154 Pregabalin (Pregabalin) 150 Mg Capsule, 150 MG PO TID, (Reported) Entered as Reported by: DESMOND WATTS on 05/08/22 1540 Simvastatin (Simvastatin) 40 Mg Tablet, 40 MG PO HS, (Reported) Entered as Reported by: DESMOND WATTS on 05/08/22 1540 Vilazodone Hydrochloride (Viibryd) 20 Mg Tablet, 20 MG PO DAILY, (Reported) Entered as Reported by: LUTHER FLEMING on 10/03/21 1143 Review of Systems Review of Systems Constitutional: see HPI EENTM: No Symptoms Reported Respiratory: No Symptoms Reported Cardiovascular: No Symptoms Reported Gastrointestinal: Abdominal Pain Genitourinary: No Symptoms Reported Musculoskeletal: back pain (right flank/hip) Skin: no symptoms reported Psychiatric/Neurological: Anxiety (FLAKITO MIRANDA MD) All Other Systems Reviewed Negative Unless Noted: Yes (FLAKITO MIRANDA MD) Past Iminnnn-Crxkrp-Hzudhx Hx Immunizations Up To Date Tetanus Booster (TDap): Unknown PED Vaccines UTD: Yes First/Initial COVID19 Vaccinat: N/A Second COVID19 Vaccination Mariano: N/A Third COVID19 Vaccination Date: N/A (FLAKITO MIRANDA MD) Seasonal Allergies Seasonal Allergies: No (FLAKITO MIRANDA MD) Past Medical History Surgery/Hospitalization HX: choly, hysty, copd, dm, polysubstance Surgeries: Yes (BACK SURGERY 2016; FOOT SURGERY) Gallbladder, Hysterectomy, Orthopedic, Tonsillectomy, Tubal Ligation Respiratory: Yes (07/2019--PNEUMONIA WITH SEPTIC SHOCK AND INTUBATED. COVID 06/2021--NO [place]. 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 Genitourinary: No Gastrointestinal: Yes (delayed emptying) Gastroesophageal Reflux, Diverticulosis, Gall Bladder Disease Musculoskeletal: Yes (foot surgery; BACK SURGERY) Degenerate Disk Disease, Fibromyalgia, Chronic Back Pain Endocrine: Yes (MORBID OBESITY) Diabetes, Non-Insulin dep HEENT: No Cancer: No Psychosocial: Yes (RX DRUG ABUSE/OVERDOSES) Anxiety, Depression Integumentary: No Blood Disorders: No (FLAKITO MIRANDA MD) Family Medical History Cancer, CAD Under 55 Years Old, Diabetes SOCIAL HISTORY: -SMOKES 1 PPD -ETOH--OCCASIONAL USE--HX OF ABUSE/HEAVY USE -DRUGS--EXTENSIVE RX DRUG ABUSE AND MULTIPLE OVERDOSES--JUJU OPIATES AND BENZODIAZEPINES PT ADMITTED 10/03/21 OBTUNDED AND HIGHLY SUSPECTED OVERDOSE OF ROBAXIN AT THAT TIME. PAST SURGICAL HISTORY: -LUMBAR SPINE SURGERY 2017 -FOOT SURGERY -BILATERAL TUBAL LIGATION -HYSTERECTOMY -TONSILLECTOMY -CHOLECYSTECTOMY (FLAKITO MIRANDA MD) Physical Exam Vital Signs Vital Signs - First Documented 06/18/22 04:56 Temp 36.7 Pulse 102 Resp 24 B/P (MAP) 207/135 (159) Pulse Ox 95 O2 Delivery Room Air ([facility]) Vital Signs Capillary Refill : (FLAKITO MIRANDA MD) Height/Weight/BMI Height: 5'8.00" Weight: 220lbs. oz. 99.871970st; 31.28 BMI Method:Stated General Appearance: WD/WN, moderate distress (writhing around on the bed, groaning and yelling; grabbing her right hip and RLQ) Respiratory: lungs clear, normal breath sounds, no respiratory distress, no accessory muscle use Cardiovascular: regular rate, rhythm Gastrointestinal: soft, tenderness (RLQ; inconsistent rebound; hyperactive BS) Extremities: normal range of motion, normal inspection Neurologic/Psychiatric: no motor/sensory deficits, alert, normal mood/affect, oriented x 3, other (hostile and agitated) Skin: normal color, warm/dry, other (2 small areas of what appears to been superficial aguero to the LLQ abdomen) (FLAKITO MIRANDA MD) Procedures/Interventions Date of ETT Placement: Aug 16, 2019 Time of ETT Placement: 2299 (FLAKITO MIRANDA MD) Progress/Results/Core Measures Results/Orders Lab Results Laboratory Tests Test 06/18/22 05:01 06/18/22 05:11 Range/Units Urine Color YELLOW Urine Clarity CLEAR Urine pH 6.0 5-9 Urine Specific [place] <=1.005 1.016-1.022 Urine Protein NEGATIVE NEGATIVE Urine Glucose (UA) NEGATIVE NEGATIVE Urine Ketones NEGATIVE NEGATIVE Urine Nitrite NEGATIVE NEGATIVE Urine Bilirubin NEGATIVE NEGATIVE Urine Urobilinogen 0.2 < = 1.0 MG/DL Urine Leukocyte Esterase NEGATIVE NEGATIVE Urine RBC (Auto) TRACE-I H NEGATIVE Urine RBC NONE /HPF Urine WBC NONE /HPF Urine Crystals NONE /LPF Urine Bacteria NEGATIVE /HPF Urine Casts NONE /LPF Urine Mucus NEGATIVE /LPF Urine Culture Indicated NO White Blood Count 8.2 4.3-11.0 10^3/uL Red Blood Count 3.42 L 3.80-5.11 10^6/uL Hemoglobin 11.7 11.5-16.0 g/dL Hematocrit 33 L 35-52 % Mean Corpuscular Volume 98 80-99 fL Mean Corpuscular Hemoglobin 34 25-34 pg Mean Corpuscular Hemoglobin Concent 35 32-36 g/dL Red Cell Distribution Width 13.0 10.0-14.5 % Platelet Count 304 130-400 10^3/uL Mean Platelet Volume 9.0 9.0-12.2 fL Immature Granulocyte % (Auto) 0 % Neutrophils (%) (Auto) 51 42-75 % Lymphocytes (%) (Auto) 39 12-44 % Monocytes (%) (Auto) 10 0-12 % Eosinophils (%) (Auto) 0 0-10 % Basophils (%) (Auto) 0 0-10 % Neutrophils # (Auto) 4.2 1.8-7.8 10^3/uL Lymphocytes # (Auto) 3.2 1.0-4.0 10^3/uL Monocytes # (Auto) 0.8 0.0-1.0 10^3/uL Eosinophils # (Auto) 0.0 0.0-0.3 10^3/uL Basophils # (Auto) 0.0 0.0-0.1 10^3/uL Immature Granulocyte # (Auto) 0.0 0.0-0.1 10^3/uL Sodium Level 132 L 135-145 MMOL/L Potassium Level 3.8 3.6-5.0 MMOL/L Chloride Level 100 98-107 MMOL/L Carbon Dioxide Level 20 L 21-32 MMOL/L Anion Gap 12 5-14 MMOL/L Blood Urea Nitrogen 12 7-18 MG/DL Creatinine 0.77 0.60-1.30 MG/DL Estimat Glomerular Filtration Rate 88 BUN/Creatinine Ratio 16 Glucose Level 111 H 70-105 MG/DL Calcium Level 9.2 8.5-10.1 MG/DL Corrected Calcium 8.9 8.5-10.1 MG/DL Total Bilirubin 0.2 0.1-1.0 MG/DL Aspartate Amino Transf (AST/SGOT) 14 5-34 U/L Alanine Aminotransferase (ALT/SGPT) 16 0-55 U/L Alkaline Phosphatase 74 40-136 U/L Total Protein 7.3 6.4-8.2 GM/DL Albumin 4.4 3.2-4.5 GM/DL (MARGOTH RUBY DO) Medications Given in ED Current Medications Medications Dose Ordered Sig/Raquel Route Start Time Stop Time Status Last Admin Dose Admin Fentanyl Citrate 50 mcg ONCE ONCE IVP 06/18/22 05:30 06/18/22 05:31 DC 06/18/22 05:28 50 MCG (MARGOTH RUBY DO) Vital Signs/I&O 06/18/22 04:56 Temp 36.7 Pulse 102 Resp 24 B/P (MAP) 207/135 (159) Pulse Ox 95 O2 Delivery Room Air (MARGOTH RUBY DO) Progress Progress Note : Time: 05:46 Progress Note Patient to CT at this time via WC. CBC nornal. Chem pending. UA shows trace RBC. Has had fentanyl. Still in some distress. (FLAKITO MIRANDA MD) Departure Communication (Admissions) Patient is hemodynamically stable with a nonsurgical abdominal exam. CT scan is negative. I think this is an exacerbation of her chronic back pain. She is feeling better after the provided IV pain medications. We will discharge her home with supportive care close primary care follow-up and recommendations for possible neurosurgical or pain management referrals. She is discharged in stable condition after questions were sought and answered to (MARGOTH RUBY DO) Impression Primary Impression: Abdominal pain Qualified Codes: R10.84 - Generalized abdominal pain Additional Impression: Chronic back pain Qualified Codes: M54.50 - Low back pain, unspecified; G89.29 - Other chronic pain Disposition: HOME, SELF-CARE Condition: Stable Departure-Patient Inst. Referrals: DESMOND GOLDBERG DO (PCP/Family) Primary Care Physician Patient Instructions: Chronic Pain, Abdominal Pain, Adult ED Add. Discharge Instructions: Continue home medications as previously prescribed. Follow-up with your primary doctor regarding your chronic back symptoms and further treatment options, possible neurosurgery referral. Return to the emergency department for any severe concerns, specifically, loss of bowel or bladder control, weakness in your legs. All discharge instructions reviewed with patient and/or family. Voiced under standing. FLAKITO MIRANDA MD Jun 18, 2022 05:08 MARGOTH RUBY DO Jun 18, 2022 06:58
[2022-06-18] MEDS ORDERED: NS IV 1000 ML 1,000 ML IV STA (05:22)
[2022-06-18 05:28] LABS: BASOPHILS % (AUTO) 0 % (0-10); EOSINOPHILS % (AUTO) 0 % (0-10); HEMATOCRIT 33 % (35-52); HEMOGLOBIN 11.7 g/dL (11.5-16.0); LYMPHOCYTES # (AUTO) 3.2 10^3/uL (1.0-4.0); LYMPHOCYTES % (AUTO) 39 % (12-44); MEAN CORPUSCULAR HEMOGLOBIN 34 pg (25-34); MEAN CORPUSCULAR HGB CONC 35 g/dL (32-36); MEAN CORPUSCULAR VOLUME 98 fL (80-99); MONOCYTES # (AUTO) 0.8 10^3/uL (0.0-1.0); MONOCYTES % (AUTO) 10 % (0-12); NEUTROPHILS # (AUTO) 4.2 10^3/uL (1.8-7.8); NEUTROPHILS % (AUTO) 51 % (42-75); PLATELET COUNT 304 10^3/uL (130-400); WHITE BLOOD COUNT 8.2 10^3/uL (4.3-11.0)
[2022-06-18 05:29] LABS: BILIRUBIN,URINE NEGATIVE (NEGATIVE); CLARITY,URINE CLEAR; COLOR,URINE YELLOW; GLUCOSE, URINE (UA) NEGATIVE (NEGATIVE); KETONES,URINE NEGATIVE (NEGATIVE); LEUKOCYTE ESTERASE ,URINE NEGATIVE (NEGATIVE); NITRITE,URINE NEGATIVE (NEGATIVE); PROTEIN,URINE NEGATIVE (NEGATIVE)
[2022-06-18] MEDS ORDERED: fentaNYL INJ 100 MCG/2 ML AMP IVP ONE (05:30)
[2022-06-18 05:38] LABS: BACTERIA,URINE NEGATIVE /HPF
[2022-06-18 05:49] LABS: ALBUMIN 4.4 GM/DL (3.2-4.5); BILIRUBIN,TOTAL 0.2 MG/DL (0.1-1.0); CALCIUM 9.2 MG/DL (8.5-10.1); CREATININE SERUM 0.77 MG/DL (0.60-1.30); POTASSIUM 3.8 MMOL/L (3.6-5.0); TOTAL PROTEIN 7.3 GM/DL (6.4-8.2)
--- NOTE | 2022-06-18 06:35 | Diagnostic Imaging Report ---
PROCEDURE: CT abdomen and pelvis with contrast, rule out appendicitis. TECHNIQUE: Multiple contiguous axial images were obtained through the abdomen and pelvis after the administration of intravenous contrast. All CT scans use one or more of the following dose optimizing techniques: automated exposure control, MA and/or KvP adjustment based on patient size and exam type or iterative reconstruction. INDICATION: 62-year-old female, right-sided abdominal pain. CORRELATION STUDY: 10/28/2021 FINDINGS: LOWER THORAX: Clear. LIVER: Unremarkable. GALLBLADDER: Cholecystectomy. SPLEEN: Unremarkable. PANCREAS: Unremarkable. ADRENAL GLANDS: Unremarkable. KIDNEYS: Probable small cyst inferior pole right kidney. There is no calcification or evidence for hydronephrosis or obstruction. ABDOMINAL AORTA: Mild wall calcification, nonaneurysmal. GASTROINTESTINAL TRACT: Colonic diverticulosis. Normal appendix. No small bowel obstruction. Stomach distended with retained gastric contents. No abdominal ascites and/or free air. URINARY BLADDER: Unremarkable. REPRODUCTIVE: Hysterectomy. OSSEOUS STRUCTURES: Posterior fusion L2-S1. OTHER: None. IMPRESSION: 1. Negative for acute abnormality of the abdomen or pelvis. Dictated by: Dictated on workstation # [id number]
[2022-06-18 07:13] VITALS: BP 133/72
== END 2022-06-18 07:14 | disposition home or self-care (01) ==
LOC: EDUNIT# 04:42 → ER 04:44
DX: R10.31 Right lower quadrant pain (principal); G89.29 Other chronic pain; M54.9 Dorsalgia, unspecified; T21.02XA Burn of unspecified degree of abdominal wall, initial encounter; E66.01 Morbid (severe) obesity due to excess calories; F17.210 Nicotine dependence, cigarettes, uncomplicated; Z87.19 Personal history of other diseases of the digestive system; Z90.49 Acquired absence of other specified parts of digestive tract; Z88.5 Allergy status to narcotic agent; Z28.310 Unvaccinated for COVID-19; Z68.30 Body mass index [BMI] 30.0-30.9, adult
CPT/HCPCS: 36415; 74177; 80053; 81000; 85025

== ENCOUNTER 2022-07-07 13:56 | Emergency (ER) | payer MEDICARE, MEDICAID ==
[~2022-07-07] VITALS: Ht 157 cm; Wt 79.5 kg
--- NOTE | 2022-07-07 14:27 | ED Back Pain ---
General Chief Complaint: Back Problems Stated Complaint: BACK PAIN Nursing Triage Note: PT HAS CHRONIC BACK PAIN, BULGING DISCS, HAS HAD INCREASED PAIN THE PAST FEW DAYS AND IS UNABLE TO MOVE WITHOUT SEVERE PAIN. HAS HAD MULTIPLE FALLS LATELY. WAS GIVEN 50MCG FENTANYL BY EMS Source of Information: Patient, EMS Exam Limitations: No Limitations History of Present Illness Date Seen by Provider: Jul 07, 2022 Time Seen by Provider: 14:06 Initial Comments 62-year-old female presents emergency room today for right-sided hip, low back pain. She states symptoms have been present for many years but worsening over the last month. She has seen a specialist at and offered her surgery for a disc problem but told she need to quit smoking a month prior to having the surgery and she states she cannot do that. She states she is having difficulty getting into see her primary care doctor. She has been using ibuprofen and Tylenol per her report. She describes pain as severe, worse with movement. No loss of bowel or bladder control, saddle anesthesia. No weakness in her legs. No urinary retention. Allergies and Home Medications Allergies Coded Allergies: Influenza Virus Vaccines (Verified Allergy, Unknown, 10/28/21) tramadol (Unverified Allergy, Unknown, pt rec'd hydrocodone in past, 05/08/22) Uncoded Allergies: PNEUMONIA SHOT (Allergy, Unknown, 11/22/16) Patient Home Medication List Home Medication List Reviewed: Yes Albuterol Sulfate (Ventolin Hfa) 90 Mcg Hfa.aer.ad, 2 PUFF INH Q6H PRN for SHORTNESS OF BREATH, (Reported) Entered as Reported by: DESMOND WATTS on 05/08/22 1540 Aspirin (Aspirin EC) 81 Mg Tablet.dr, 81 MG PO DAILY, (Reported) Entered as Reported by: DESMOND WATTS on 08/17/19 1126 Budesonide/Formoterol Fumarate (Symbicort 160-4.5 Mcg Inhaler) 160 Mcg-4.5 Mcg/Actuation Hfa.aer.ad, 2 PUFF IH BID PRN for SHORTNESS OF BREATH, (Reported) Entered as Reported by: DESMOND WATTS on 08/17/19 1136 Cholecalciferol (Vitamin D3) (Vitamin D3) 25 Mcg Tablet, 25 MCG PO DAILY, (Reported) Entered as Reported by: LUTHER FLEMING on 10/03/21 1143 Docusate Sodium (Docusate Sodium) 100 Mg Capsule, 100 MG PO DAILY PRN for CONSTIPATION-1ST LINE, (Reported) Entered as Reported by: DESMOND WATTS on 05/08/22 154 Donepezil HCl (Donepezil HCl) 5 Mg Tablet, 5 MG PO HS, (Reported) Entered as Reported by: DESMOND WATTS on 05/08/22 154 Lisinopril (Lisinopril) 40 Mg Tablet, 40 MG PO DAILY, (Reported) Entered as Reported by: DESMOND WATTS on 05/08/22 154 Meloxicam (Meloxicam) 15 Mg Tablet, 15 MG PO DAILY, (Reported) Entered as Reported by: DESMOND WATTS on 08/17/19 112 Metformin HCl (Metformin HCl ER) 500 Mg Tab.er.24h, 500 MG PO DAILY, (Reported) Entered as Reported by: DESMOND WATTS on 08/17/19 112 Omeprazole (Omeprazole) 20 Mg Capsule.dr, 20 MG PO DAILY, (Reported) Entered as Reported by: DESMOND WATTS on 08/17/19 1136 Polyethylene Glycol 3350 (Gavilax) 17 Gram/Dose Powder, 17 GM PO Q48H, (Reported) Entered as Reported by: DESMOND WATTS on 05/08/22 154 Pregabalin (Pregabalin) 150 Mg Capsule, 150 MG PO TID, (Reported) Entered as Reported by: DESMOND WATTS on 05/08/22 154 Simvastatin (Simvastatin) 40 Mg Tablet, 40 MG PO HS, (Reported) Entered as Reported by: DESMOND WATTS on 05/08/22 154 Vilazodone Hydrochloride (Viibryd) 20 Mg Tablet, 20 MG PO DAILY, (Reported) Entered as Reported by: LUTHER FLEMING on 10/03/21 1143 Review of Systems Constitutional: no symptoms reported EENTM: no symptoms reported Respiratory: no symptoms reported Cardiovascular: no symptoms reported Gastrointestinal: no symptoms reported Genitourinary: no symptoms reported Musculoskeletal: back pain Skin: no symptoms reported Psychiatric/Neurological: No Symptoms Reported Past Jthibrl-Cswovn-Diqasc Hx Patient Social History Tobacco Use?: Yes Tobacco type used: Cigarettes Substance use?: No Alcohol Use?: No Immunizations Up To Date Tetanus Booster (TDap): Unknown PED Vaccines UTD: Yes Influenza Vaccine Up-to-Date: No; Not Current First/Initial COVID19 Vaccinat: N/A Second COVID19 Vaccination Mariano: N/A Third COVID19 Vaccination Date: N/A Seasonal Allergies Seasonal Allergies: No Past Medical History Surgery/Hospitalization HX: choly, hysty, copd, dm, polysubstance Surgeries: Yes (BACK SURGERY 2017; FOOT SURGERY) Gallbladder, Hysterectomy, Orthopedic, Tonsillectomy, Tubal Ligation Respiratory: Yes (07/2019--PNEUMONIA WITH SEPTIC SHOCK AND INTUBATED. COVID 06/2021--NO [place]. 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 Genitourinary: No Gastrointestinal: Yes (delayed emptying) Gastroesophageal Reflux, Diverticulosis, Gall Bladder Disease Musculoskeletal: Yes (foot surgery; BACK SURGERY) Degenerate Disk Disease, Fibromyalgia, Chronic Back Pain Endocrine: Yes (MORBID OBESITY) Diabetes, Non-Insulin dep HEENT: No Cancer: No Psychosocial: Yes (RX DRUG ABUSE/OVERDOSES) Anxiety, Depression Integumentary: No Blood Disorders: No Family Medical History Cancer, CAD Under 55 Years Old, Diabetes SOCIAL HISTORY: -SMOKES 1 PPD -ETOH--OCCASIONAL USE--HX OF ABUSE/HEAVY USE -DRUGS--EXTENSIVE RX DRUG ABUSE AND MULTIPLE OVERDOSES--JUJU OPIATES AND BENZODIAZEPINES PT ADMITTED 10/03/21 OBTUNDED AND HIGHLY SUSPECTED OVERDOSE OF ROBAXIN AT THAT TIME. PAST SURGICAL HISTORY: -LUMBAR SPINE SURGERY 2017 -FOOT SURGERY -BILATERAL TUBAL LIGATION -HYSTERECTOMY -TONSILLECTOMY -CHOLECYSTECTOMY Physical Exam Vital Signs Vital Signs - First Documented 07/07/22 13:59 Temp 37.0 Pulse 87 Resp 22 B/P (MAP) 197/116 (143) Pulse Ox 97 Capillary Refill : Height, Weight, BMI Height: 5'8.00" Weight: 220lbs. oz. 99.235692fl; 32.00 BMI Method:Stated General Appearance: No Apparent Distress, WD/WN HEENT: Normal ENT Inspection, Pharynx Normal Neck: Normal Inspection, Non Tender, Supple Cardiovascular: Regular Rate, Rhythm, No Murmur, Normal Peripheral Pulses Respiratory: Chest Non Tender, Lungs Clear, Normal Breath Sounds, No Accessory Muscle Use Gastrointestinal: Normal Bowel Sounds, No Organomegaly, No Pulsatile Mass, Non Tender, Soft Back: Normal Inspection, Vertebral Tenderness (Tenderness palpation paraspinal right lumbar region. She is rubbing her right hip area as well and is mildly tender to palpation in this area. This is not worse with range of motion. There is no bony tenderness throughout range of motion. No deformity. Neur ovascular and sensory intact.) Extremity: Normal Capillary Refill, Normal Inspection, Normal Range of Motion, Non Tender, No Calf Tenderness Neurologic/Psychiatric: Alert, Oriented x3, No Motor/Sensory Deficits, Normal Mood/Affect, pet sitting II-XII Norm as Tested Skin: Normal Color, Warm/Dry Procedures/Interventions Date of ETT Placement: Aug 16, 2019 Time of ETT Placement: 2300 Progress/Results/Core Measures Results/Orders My Orders Orders - MARGOTH RUBY DO Ketorolac Injection (Toradol Injection) (07/07/22 14:30) Vital Signs/I&O 07/07/22 13:59 Temp 37.0 Pulse 87 Resp 22 B/P (MAP) 197/116 (143) Pulse Ox 97 Blood Pressure Mean: 143 Departure Communication (Admissions) Patient is hemodynamically stable. She has no red flag symptoms. This is chronic pain. She has been offered surgery from however she was told that she has to quit smoking for a month prior to the surgery to be a candidate. She states "I cannot do that." I discussed smoking cessation options with her including medications, patches and gums. She states she has been smoking since a child and cannot quit smoking. I advised that the surgery would likely greatly improve her symptoms long-term and likely decrease the amount of medication she had to have her pain. She states understanding. I ultimately gave her a shot of Toradol and advised that I did not think that narcotic pain medication was the answer to her chronic pain. I did recommend that she see Dr. Goldberg and get a referral to scene painter for further evaluation. I did strongly recommend she quit smoking so that she could have the surgery performed for potential relief regardless she is neurologically intact with no new injuries. She is discharged home in stable condition Impression Primary Impression: Chronic back pain Qualified Codes: M54.50 - Low back pain, unspecified; G89.29 - Other chronic pain Disposition: 01 HOME, SELF-CARE Condition: Stable Departure-Patient Inst. Referrals: DESMOND GOLDBERG DO (PCP/Family) Primary Care Physician Patient Instructions: Low Back Pain ED, MANAGING YOUR CHRONIC PAIN Add. Discharge Instructions: Concern to work with Dr. Goldberg for management of your chronic pain. I do think that the surgery offered by [facility] would help you. You should quit smoking for the month required and have this performed if at all possible. I have given you a shot of an anti-inflammatory medicine here and a prescription for the same at home. Use these as needed for the next [address] Goldberg about getting him to see a scene painter. Return to the emergency department for any severe concerns. All discharge instructions reviewed with patient and/or family. Voiced understanding. MARGOTH RUBY DO Jul 07, 2022 14:27
[2022-07-07] MEDS ORDERED: KETO10TA PO (14:28)
[2022-07-07] MEDS ORDERED: KETOROLAC 15 MG/ML VIAL IM ONE (14:30)
[2022-07-07 14:40] VITALS: BP 167/102
[2022-07-07] MEDS ORDERED: KETOROLAC 15 MG/ML VIAL IVP ONE (14:45)
== END 2022-07-07 14:40 | disposition home or self-care (01) ==
LOC: EDUNIT# 13:56 → ER 13:57
DX: M54.50 Low back pain, unspecified (principal); G89.29 Other chronic pain; F17.210 Nicotine dependence, cigarettes, uncomplicated; E66.01 Morbid (severe) obesity due to excess calories; Z68.32 Body mass index [BMI] 32.0-32.9, adult; Z86.16 Personal history of COVID-19; Z28.310 Unvaccinated for COVID-19; Z98.890 Other specified postprocedural states
CPT/HCPCS: 99283

== ENCOUNTER → 2022-07-19 | Outpatient (CLI) | payer MEDICARE, MEDICAID ==
[~2022-07-19] MED LIST changes: +KETO10TA PO
--- NOTE | 2022-07-19 16:41 | Diagnostic Imaging Report ---
PROCEDURE: MRI lumbar spine. TECHNIQUE: Multiplanar, multisequence MRI of the lumbar spine was performed without contrast. INDICATION: Fall four weeks ago with low back pain. COMPARISON: Exam is compared with lumbar MRI performed 06/12/2022. FINDINGS: Posterior fusion with bipedicular screws and vertical rods L3 through S1 again noted at L3-L4. There is anterior and interbody fusion. There is lower lumbar decompression and laminectomy. There are edematous Modic type I changes across the L2-L3 articular endplates, believed increased from prior. No acute marrow signal pathology. The conus appeared unremarkable. Large disc protrusion at T12-L1 level with disc material directed inferiorly along the midline and indents the ventral thecal sac and ventral epidural fat, unchanged from prior and results in only mild canal stenosis with no significant recess or foraminal impingement. The L1-L2 level and disc are unremarkable without stenosis. L2-L3: There is disc desiccation, endplate osteophytes, disc bulge, and facet arthrosis with mild spinal canal stenosis. There is moderate right and mild left foraminal narrowing. L3-L4: Canal decompressed by laminectomy. The neural foramina, lateral recesses, and thecal sac are all widely patent. L4-L5: There is no significant canal, foraminal, or recess stenosis. L5-S1: The spinal canal is widely patent. Disc desiccation, bulge, and endplate osteophytes, however, result in moderate biforaminal narrowing, unchanged. IMPRESSION: 1. Increased degenerative changes and stenosis at L2-L3. Large disc protrusion at T12-L1 directed inferiorly results in unchanged mild canal stenosis. Stable postoperative findings without fluid collection with L5-S1 biforaminal stenosis, unchanged. 2. No acute or posttraumatic abnormality identified. Dictated by: Dictated on workstation # [id number]
--- NOTE | 2022-07-19 17:37 | Diagnostic Imaging Report ---
PROCEDURE: MRI right joint lower extremity without contrast. TECHNIQUE: Multiplanar, multisequence non contrast-enhanced MRI of the right lower extremity was accomplished. INDICATION: Right hip pain COMPARISON: None available. FINDINGS: Right hip: No hip effusion. Articular cartilage is well preserved. No chondrolabral separation or para-labral cyst. Bones: No avascular necrosis of femoral heads. No bone marrow edema that would indicate fracture or stress reaction within the pelvis or proximal femurs. Muscles and tendons: The bilateral distal iliopsoas tendons are intact. Proximal hamstring complexes are intact. Gluteus medius and minimus insertions are also intact. There is T2 hyperintense signal within the quadratus femoris muscle between the lesser trochanter and ischium and this can be seen with ischiofemoral impingement. Otherwise, adductor musculature is normal. Pelvis: No free pelvic fluid. No pelvic or inguinal lymphadenopathy. Sigmoid colon diverticulosis without diverticulitis. IMPRESSION: 1. No fracture or avascular necrosis. 2. Imaging features raise the possibility of right-sided ischiofemoral impingement syndrome. This could be a source of deep hip pain due to narrowing of the space between the lesser trochanter and ischium. 3. No acute muscle strain or tendon tear. Dictated by: Dictated on workstation # [id number]
== END ==
LOC: RAD 12:56
PROVIDERS: ATTEND Nurse Practitioner Gerontology
DX: M47.26 Other spondylosis with radiculopathy, lumbar region (principal); M48.061 Spinal stenosis, lumbar region without neurogenic claudication; M51.14 Intervertebral disc disorders with radiculopathy, thoracic region; M51.16 Intervertebral disc disorders with radiculopathy, lumbar region
CPT/HCPCS: 72148; 73721

== ENCOUNTER 2022-07-30 18:27 | Emergency (ER) | payer MEDICARE, MEDICAID ==
[~2022-07-30] VITALS: Ht 170 cm; Wt 90.0 kg
--- NOTE | 2022-07-30 18:57 | ED Back Pain ---
General Chief Complaint: Back Problems Stated Complaint: RIGHT HIP/BACK/PELVIS PAIN Nursing Triage Note: PT TO RM 1 PER W/C PT CO OF SEVERE BACK PAIN FOR APPROX1 MONTH, PT STATES CANT TAKE PAIN ANYMORE. 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 PT IS CRYING W PAIN. Source of Information: Patient, Old Records Exam Limitations: No Limitations History of Present Illness Date Seen by Provider: Jul 30, 2022 Time Seen by Provider: 18:39 Initial Comments This 62-year-old woman presents to the emergency room by private vehicle with complaints of severe exacerbation of chronic lower back pain. She has radicular symptoms into the right groin and thigh. She reports extreme difficulty trying to stand and ambulate. She has been taking Tylenol and ibuprofen without r elief. She has had MRIs obtained recently and has a referral to a warehouse specialist later in the week. She has not lost motor control, bowel or bladder function. She denies saddle paresthesias. She was seen in this ER July 07 for similar symptoms. Chart was reviewed. It was noted in that documentation that she had been advised to have surgical treatment previously but she could not quit smoking to qualify for the surgery. Patient is crying in distress from the pain. She reports taking her first 2 doses of Lyrica earlier today. Patient is in notable distress and states she cannot continue living like this. She is not able to perform basic ADLs. Allergies and Home Medications Allergies Coded Allergies: Influenza Virus Vaccines (Verified Allergy, Unknown, 10/28/21) tramadol (Unverified Allergy, Unknown, pt rec'd hydrocodone in past, 05/08/22) Uncoded Allergies: PNEUMONIA SHOT (Allergy, Unknown, 11/22/16) Patient Home Medication List Home Medication List Reviewed: Yes Albuterol Sulfate (Ventolin Hfa) 90 Mcg Hfa.aer.ad, 2 PUFF INH Q6H PRN for SHORTNESS OF BREATH, (Reported) Entered as Reported by: DESMOND WATTS on 05/08/22 1540 Aspirin (Aspirin EC) 81 Mg Tablet.dr, 81 MG PO DAILY, (Reported) Entered as Reported by: DESMOND WATTS on 08/17/19 1126 Budesonide/Formoterol Fumarate (Symbicort 160-4.5 Mcg Inhaler) 160 Mcg-4.5 Mcg/Actuation Hfa.aer.ad, 2 PUFF IH BID PRN for SHORTNESS OF BREATH, (Reported) Entered as Reported by: DESMOND WATTS on 08/17/19 1136 Cholecalciferol (Vitamin D3) (Vitamin D3) 25 Mcg Tablet, 25 MCG PO DAILY, (Reported) Entered as Reported by: LUTHER FLEMING on 10/03/21 1143 Cyclobenzaprine HCl (Cyclobenzaprine HCl) 10 Mg Tablet, 10 MG PO Q8H PRN for SPASMS Prescribed by: OSCAR BURNS on 07/30/22 230 Docusate Sodium (Docusate Sodium) 100 Mg Capsule, 100 MG PO DAILY PRN for CONSTIPATION-1ST LINE, (Reported) Entered as Reported by: DESMOND WATTS on 05/08/22 1540 Donepezil HCl (Donepezil HCl) 5 Mg Tablet, 5 MG PO HS, (Reported) Entered as Reported by: DESMOND WATTS on 05/08/22 1540 Ketorolac Tromethamine (Ketorolac Tromethamine) 10 Mg Tablet, 10 MG PO TID Prescribed by: MARGOTH RUBY MD on 07/07/22 1428 Lisinopril (Lisinopril) 40 Mg Tablet, 40 MG PO DAILY, (Reported) Entered as Reported by: DESMOND WATTS on 05/08/22 1540 Magnesium Oxide (Magnesium Oxide) 400 Mg Tablet, 400 MG PO BID Prescribed by: OSCAR BURNS on 07/30/22 2308 Meloxicam (Meloxicam) 15 Mg Tablet, 15 MG PO DAILY, (Reported) Entered as Reported by: DESMOND WATTS on 08/17/19 112 Metformin HCl (Metformin HCl ER) 500 Mg Tab.er.24h, 500 MG PO DAILY, (Reported) Entered as Reported by: DESMOND WATTS on 08/17/19 1126 Omeprazole (Omeprazole) 20 Mg Capsule.dr, 20 MG PO DAILY, (Reported) Entered as Reported by: DESMOND WATTS on 08/17/19 1136 Oxycodone HCl/Acetaminophen (Percocet 5-325 mg Tablet) 1 Each Tablet, 1-2 TAB PO Q4H PRN for PAIN-BREAKTHROUGH Prescribed by: OSCAR BURNS on 07/30/22 2305 Polyethylene Glycol 3350 (Gavilax) 17 Gram/Dose Powder, 17 GM PO Q48H, (Reported) Entered as Reported by: DESMOND WATTS on 05/08/22 154 Prednisone (Prednisone) 20 Mg Tab, 40 MG PO DAILY Prescribed by: OSCAR BURNS on 07/30/22 2304 Pregabalin (Pregabalin) 150 Mg Capsule, 150 MG PO TID, (Reported) Entered as Reported by: DESMOND WATTS on 05/08/22 154 Simvastatin (Simvastatin) 40 Mg Tablet, 40 MG PO HS, (Reported) Entered as Reported by: DESMOND WATTS on 05/08/22 154 Vilazodone Hydrochloride (Viibryd) 20 Mg Tablet, 20 MG PO DAILY, (Reported) Entered as Reported by: LUTHER FLEMING on 10/03/21 1143 Review of Systems Constitutional: no symptoms reported EENTM: no symptoms reported Respiratory: no symptoms reported Cardiovascular: no symptoms reported Gastrointestinal: no symptoms reported Genitourinary: no symptoms reported : No Musculoskeletal: see HPI Skin: no symptoms reported Psychiatric/Neurological: See HPI Past Ldnzpzt-[id number]-Nzuobe Hx Patient Social History Tobacco Use?: Yes Tobacco type used: Cigarettes Smoking Status: Current Everyday Smoker Substance use?: No Additional substance use comme: DENIES Alcohol Use?: No Pt feels they are or have been: No Immunizations Up To Date Tetanus Booster (TDap): Unknown PED Vaccines UTD: Yes Influenza Vaccine Up-to-Date: No; Not Current First/Initial COVID19 Vaccinat: N/A Second COVID19 Vaccination Mariano: N/A Third COVID19 Vaccination Date: N/A Seasonal Allergies Seasonal Allergies: No Past Medical History Surgery/Hospitalization HX: choly, hysty, copd, dm, polysubstance Surgeries: Yes (BACK SURGERY 2016; FOOT SURGERY) Gallbladder, Hysterectomy, Orthopedic, Tonsillectomy, Tubal Ligation Respiratory: Yes (07/2019--PNEUMONIA WITH SEPTIC SHOCK AND INTUBATED. COVID 06/2021--NO [place]. 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 Headaches /Migraines [employer] History: Menopausal Genitourinary: No Gastrointestinal: Yes (delayed emptying) Gastroesophageal Reflux, Diverticulosis, Gall Bladder Disease Musculoskeletal: Yes (foot surgery; BACK SURGERY) Degenerate Disk Disease, Fibromyalgia, Chronic Back Pain Endocrine: Yes (MORBID OBESITY) Diabetes, Non-Insulin dep HEENT: No Cancer: No Psychosocial: Yes (RX DRUG ABUSE/OVERDOSES) Anxiety, Depression Integumentary: No Blood Disorders: No Family Medical History Cancer, CAD Under 55 Years Old, Diabetes SOCIAL HISTORY: -SMOKES 1 PPD -ETOH--OCCASIONAL USE--HX OF ABUSE/HEAVY USE -DRUGS--EXTENSIVE RX DRUG ABUSE AND MULTIPLE OVERDOSES--JUJU OPIATES AND BENZODIAZEPINES PT ADMITTED 10/03/21 OBTUNDED AND HIGHLY SUSPECTED OVERDOSE OF ROBAXIN AT THAT TIME. PAST SURGICAL HISTORY: -LUMBAR SPINE SURGERY 2017 -FOOT SURGERY -BILATERAL TUBAL LIGATION -HYSTERECTOMY -TONSILLECTOMY -CHOLECYSTECTOMY Physical Exam Vital Signs Vital Signs - First Documented 07/30/22 07/30/22 18:40 23:32 Temp 36.7 Pulse 109 Resp 18 B/P (MAP) 141/91 Pulse Ox 97 O2 Delivery Room Air Capillary Refill : Less Than 3 Seconds Height, Weight, BMI Height: 5'8.00" Weight: 220lbs. oz. 99.435488uh; 31.00 BMI Method:Stated General Appearance: WD/WN, Moderate Distress HEENT: Normal ENT Inspection Neck: Normal Inspection Cardiovascular: Regular Rate, Rhythm, No Edema, No Murmur Respiratory: Lungs Clear, Normal Breath Sounds, No Accessory Muscle Use Gastrointestinal: Non Tender, Soft Back: Normal Inspection, Vertebral Tenderness (Lower lumbar spine) Extremity: Normal Inspection, Other (Tenderness along the right thigh) Neurologic/Psychiatric: Alert, Oriented x3, No Motor/Sensory Deficits, Normal Mood/Affect, Other (Sensation and motor control intact in the lower extremities) Skin: Normal Color, Warm/Dry Procedures/Interventions Date of ETT Placement: Aug 16, 2019 Time of ETT Placement: 2300 Progress/Results/Core Measures Results/Orders Lab Results Laboratory Tests Test 07/30/22 19:00 Range/Units White Blood Count 5.5 4.3-11.0 10^3/uL Red Blood Count 3.44 L 3.80-5.11 10^6/uL Hemoglobin 11.9 11.5-16.0 g/dL Hematocrit 33 L 35-52 % Mean Corpuscular Volume 97 80-99 fL Mean Corpuscular Hemoglobin 35 H 25-34 pg Mean Corpuscular Hemoglobin Concent 36 32-36 g/dL Red Cell Distribution Width 12.5 10.0-14.5 % Platelet Count 230 130-400 10^3/uL Mean Platelet Volume 9.0 9.0-12.2 fL Immature Granulocyte % (Auto) 0 % Neutrophils (%) (Auto) 56 42-75 % Lymphocytes (%) (Auto) 35 12-44 % Monocytes (%) (Auto) 7 0-12 % Eosinophils (%) (Auto) 1 0-10 % Basophils (%) (Auto) 0 0-10 % Neutrophils # (Auto) 3.1 1.8-7.8 10^3/uL Lymphocytes # (Auto) 2.0 1.0-4.0 10^3/uL Monocytes # (Auto) 0.4 0.0-1.0 10^3/uL Eosinophils # (Auto) 0.1 0.0-0.3 10^3/uL Basophils # (Auto) 0.0 0.0-0.1 10^3/uL Immature Granulocyte # (Auto) 0.0 0.0-0.1 10^3/uL Sodium Level 131 L 135-145 MMOL/L Potassium Level 3.8 3.6-5.0 MMOL/L Chloride Level 99 98-107 MMOL/L Carbon Dioxide Level 20 L 21-32 MMOL/L Anion Gap 12 5-14 MMOL/L Blood Urea Nitrogen 7 7-18 MG/DL Creatinine 0.69 0.60-1.30 MG/DL Estimat Glomerular Filtration Rate 99 BUN/Creatinine Ratio 10 Glucose Level 91 70-105 MG/DL Calcium Level 9.2 8.5-10.1 MG/DL Magnesium Level 1.5 L 1.6-2.4 MG/DL My Orders Orders - OSCAR DING MD Fentanyl Inj (Sublimaze Injection) (07/30/22 19:00) Orphenadrine Inj (Ed Only) (Norflex Inje (07/30/22 19:00) Ed Iv/Invasive Line Start (07/30/22 18:46) Basic Metabolic Panel (07/30/22 18:46) Cbc With Automated Diff (07/30/22 18:46) Magnesium (07/30/22 18:46) Morphine Injection (Morphine Injection (07/30/22 19:27) Methylprednisolone Sod Succ (Solu-Medrol (07/30/22 19:30) Magnesium 1 Gm/100 Ml Ivpb (Magnesium Dominique (07/30/22 20:15) Pregabalin Capsule (Lyrica Capsule) (07/30/22 21:27) Ketorolac Injection (Toradol Injection) (07/30/22 21:45) Oxycodone/Apap 5/325mg Tablet (Percocet (07/30/22 23:00) Medications Given in ED Vital Signs/I&O 07/30/22 07/30/22 18:40 23:32 Temp 36.7 Pulse 109 94 Resp 18 20 B/P (MAP) 141/91 Pulse Ox 97 94 O2 Delivery Room Air Progress Progress Note : Progress Note CBC and chemistries were checked to ensure there were no imbalances or iron deficiency contributing to her symptoms. CBC was unremarkable but she did have hypomagnesemia with magnesium of 1.5. 1 g of magnesium was given by IV route. Patient received progressive doses of pain medication starting with fentanyl 75 mcg IV followed by morphine 8 mg IV, Solu-Medrol 125 mg IV, pregabalin 150 mg orally, anxiety, and Percocet 5 mg orally. Her spine consultation has most recently been with Dr. Elizalde at [address] in [place]. I did check with [facility] to determine if there was availability for transfer to try to expedite neurosurgical intervention. They were on transfer diversion due to patient capacity. With the medications above we were eventually able to achieve tolerable pain control, and patient requested discharge home. Admission for observation and pain control was offered, but patient thought she could probably function at home in her current state. See discharge instructions for further discussion. Patient was encouraged to work on smoking cessation and weight loss. Percocet, Flexeril and magnesium were prescribed along with lifestyle recommendations. Prednisone was prescribed in the hopes that this would reduce need for opioid pain control over the next few days. Departure Impression Primary Impression: Acute exacerbation of chronic low back pain Additional Impressions: Lumbar back pain with radiculopathy affecting right lower extremity Ischiofemoral impingement syndrome Hypomagnesemia Disposition: HOME, SELF-CARE Condition: Improved Departure-Patient Inst. Decision time for Depature: 23:01 Referrals: DESMOND GOLDBERG DO (PCP/Family) Primary Care Physician Patient Instructions: Radiculopathy, Low Back Pain ED Add. Discharge Instructions: Continue with your Lyrica (pregabalin) as previously prescribed and use ibuprofen up to 600 mg every 6 hours as needed for primary pain control. Add Percocet as prescribed for additional pain control if needed. Percocet may cause constipation, so you may wish to use a stool softener such as Colace while on Percocet. Take prednisone as prescribed. Take early in the day to avoid sleep disturbance and take with food or milk to avoid upset stomach. You may take cyclobenzaprine as prescribed for muscle spasms and tension. You are taking multiple medications that may cause sedation. Use them with caution. Do not drive or operate machinery on these medications. Avoid making important decisions while on these medications. Keep your appointment with the warehouse specialist later this week. Use a walker or cane for walking assistance. Please follow-up with your primary care provider soon as possible to talk about chronic pain management, assistance with smoking, weight loss, and testing for sleep apnea. Return to the ER promptly if you develop loss of sensation in your groin, loss of strength or motor control in your legs, or bowel or bladder dysfunction. Work toward quitting smoking as rapidly as possible and weight loss to reduce strain on your back. All discharge instructions reviewed with patient and/or family. Voiced understanding. Scripts Magnesium Oxide (Magnesium Oxide) 400 Mg Tablet 400 MG PO BID, #10 TAB Prov: OSCAR DING MD 07/30/22 Prednisone (Prednisone) 20 Mg Tab 40 MG PO DAILY, #8 TAB 0 Refills Prov: OSCAR DING MD 07/30/22 Cyclobenzaprine HCl (Cyclobenzaprine HCl) 10 Mg Tablet 10 MG PO Q8H PRN for SPASMS, #15 TAB 0 Refills Prov: OSCAR DING MD 07/30/22 Oxycodone HCl/Acetaminophen (Percocet 5-325 mg Tablet) 1 Each Tablet 1-2 TAB PO Q4H PRN for PAIN-BREAKTHROUGH MDD 6 TABS, #30 TAB Prov: OSCAR DING MD 07/30/22 Copy Copies To 1: DESMOND GOLDBERG JOSHUA T MD Jul 30, 2022 18:57
[2022-07-30] MEDS ORDERED: ORPHENADRINE 60 MG/2 ML (NORFLEX) AMP (ED ONLY) IV ONE (19:00)
[2022-07-30] MEDS ORDERED: fentaNYL INJ 100 MCG/2 ML AMP IVP ONE (19:00)
[2022-07-30 19:09] LABS: BASOPHILS % (AUTO) 0 % (0-10); EOSINOPHILS # (AUTO) 0.1 10^3/uL (0.0-0.3); EOSINOPHILS % (AUTO) 1 % (0-10); HEMATOCRIT 33 % (35-52); HEMOGLOBIN 11.9 g/dL (11.5-16.0); LYMPHOCYTES % (AUTO) 35 % (12-44); MEAN CORPUSCULAR HEMOGLOBIN 35 pg (25-34); MEAN CORPUSCULAR HGB CONC 36 g/dL (32-36); MEAN CORPUSCULAR VOLUME 97 fL (80-99); MONOCYTES # (AUTO) 0.4 10^3/uL (0.0-1.0); MONOCYTES % (AUTO) 7 % (0-12); NEUTROPHILS # (AUTO) 3.1 10^3/uL (1.8-7.8); NEUTROPHILS % (AUTO) 56 % (42-75); PLATELET COUNT 230 10^3/uL (130-400); WHITE BLOOD COUNT 5.5 10^3/uL (4.3-11.0)
[2022-07-30 19:25] LABS: POTASSIUM 3.8 MMOL/L (3.6-5.0)
[2022-07-30 19:27] LABS: CALCIUM 9.2 MG/DL (8.5-10.1)
[2022-07-30] MEDS ORDERED: morphine INJ 10 MG/ML 1ML (SYR OR VIAL) IVP STA (19:27)
[2022-07-30] MEDS ORDERED: methylPREDNISolone 125 MG (Solu-MEDROL) VIAL IVP ONE (19:30)
[2022-07-30 19:31] LABS: CREATININE SERUM 0.69 MG/DL (0.60-1.30)
[2022-07-30 19:34] LABS: MAGNESIUM 1.5 MG/DL (1.6-2.4)
[2022-07-30] MEDS ORDERED: MAGNESIUM 1 GM/100 ML IVPB 100 ML IV ONE (20:15)
[2022-07-30] MEDS ORDERED: PREGABALIN 150 MG (LYRICA) CAPSULE PO STA (21:27)
[2022-07-30] MEDS ORDERED: KETOROLAC 30 MG/ML VIAL IVP ONE (21:45)
[2022-07-30] MEDS ORDERED: oxyCODONE/APAP 5/325MG (PERCOCET 5) TABLET PO ONE (23:00)
[2022-07-30] MEDS ORDERED: PRD20T PO (23:04)
[2022-07-30] MEDS ORDERED: OXYC1TAB87 PO (23:04)
[2022-07-30] MEDS ORDERED: CYCL10TA25 PO (23:04)
[2022-07-30] MEDS ORDERED: MAGN400T7 PO (23:08)
[2022-07-30 23:32] VITALS: BP 141/91
== END 2022-07-30 23:32 | disposition home or self-care (01) ==
LOC: EDUNIT# 18:27 → ER 18:30
DX: M54.16 Radiculopathy, lumbar region (principal); G89.29 Other chronic pain; E83.42 Hypomagnesemia; M25.851 Other specified joint disorders, right hip; E66.01 Morbid (severe) obesity due to excess calories; F17.210 Nicotine dependence, cigarettes, uncomplicated; Z68.31 Body mass index [BMI] 31.0-31.9, adult; Z98.890 Other specified postprocedural states; Z88.5 Allergy status to narcotic agent; Z86.16 Personal history of COVID-19
CPT/HCPCS: 36415; 80048; 83735; 85025; 99283

== ENCOUNTER 2022-10-21 11:12 | Emergency (ER) | payer MEDICARE, MEDICAID ==
[~2022-10-21] VITALS: Ht 171 cm; Wt 90.0 kg
[~2022-10-21 11:12] MED LIST changes: +CYCL10TA25 PO; +MAGN400T7 PO; +OXYC1TAB87 PO
[2022-10-21] MEDS ORDERED: fentaNYL INJ 100 MCG/2 ML AMP IVP STA (11:29)
[2022-10-21] MEDS ORDERED: NS IV 1000 ML 1,000 ML IV SCH (11:30)
[2022-10-21 11:31] LABS: BASOPHILS % (AUTO) 0 % (0-10); EOSINOPHILS # (AUTO) 0.1 10^3/uL (0.0-0.3); EOSINOPHILS % (AUTO) 1 % (0-10); HEMATOCRIT 37 % (35-52); HEMOGLOBIN 13.1 g/dL (11.5-16.0); LYMPHOCYTES # (AUTO) 1.6 10^3/uL (1.0-4.0); LYMPHOCYTES % (AUTO) 21 % (12-44); MEAN CORPUSCULAR HEMOGLOBIN 34 pg (25-34); MEAN CORPUSCULAR HGB CONC 35 g/dL (32-36); MEAN CORPUSCULAR VOLUME 96 fL (80-99); MEAN PLATELET VOLUME 9.6 fL (9.0-12.2); MONOCYTES # (AUTO) 0.4 10^3/uL (0.0-1.0); MONOCYTES % (AUTO) 5 % (0-12); NEUTROPHILS # (AUTO) 5.5 10^3/uL (1.8-7.8); NEUTROPHILS % (AUTO) 72 % (42-75); PLATELET COUNT 265 10^3/uL (130-400); WHITE BLOOD COUNT 7.6 10^3/uL (4.3-11.0)
--- NOTE | 2022-10-21 11:38 | ED Abdominal Pain ---
General Chief Complaint: Abdominal/GI Problems Stated Complaint: AB PAIN Nursing Triage Note: PT TO ED BY EMS WITH C/O R FLANK PAIN X 2 MONTHS, WORSE LAST NIGHT. DENIES URINARY SX, N/V/D, FEVER. LBM LAST NIGHT, NORMAL FOR PT. PAIN WORSE WITH MOVEMENT. (BERTHA ROSS) History of Present Illness Date Seen by Provider: Oct 21, 2022 Time Seen by Provider: 11:14 Initial Comments 62 year old female presents via EMS for 2 month history of right lower abdominal and flank pain. Worsened last evening. Took Ibuprofen 400 mg and 3 Tylenol (unsure of dose) at 0700, no improvement. Here PCP is Dr. Goldberg, but she states "all doctors are quacks" and she can't get in to see anyone. She reports her previous abdominal surgeries to be a cholecystectomy and a total hysterectomy. She believes her appendix is still present. Timing/Duration: Getting Worse Severity/Quality: Severe Location: RLQ, Flank (right) Radiation: No Radiation Associated Symptoms: Back Pain (chronic, but not hurting at this time. ); No Chest Pain, No Diaphoresis, No Fever/Chills, No Fatigue, No Headache, No Heartburn, No Nausea/Vomiting, No Shortness of Air, No Swelling/Mass in Abdomen, No Syncope, No Weakness (BERTHA ROSS) Allergies and Home Medications Allergies Coded Allergies: Influenza Virus Vaccines (Verified Allergy, Unknown, 10/28/21) tramadol (Unverified Allergy, Unknown, pt rec'd hydrocodone in past, 05/08/22) Uncoded Allergies: PNEUMONIA SHOT (Allergy, Unknown, 11/22/16) Patient Home Medication List Home Medication List Reviewed: Yes (BERTHA ROSS) Albuterol Sulfate (Ventolin Hfa) 90 Mcg Hfa.aer.ad, 2 PUFF INH Q6H PRN for SHORTNESS OF BREATH, (Reported) Entered as Reported by: DESMOND WATTS on 05/08/22 1540 Aspirin (Aspirin EC) 81 Mg Tablet.dr, 81 MG PO DAILY, (Reported) Entered as Reported by: DESMOND WATTS on 08/17/19 1126 Budesonide/Formoterol Fumarate (Symbicort 160-4.5 Mcg Inhaler) 160 Mcg-4.5 Mcg/Actuation Hfa.aer.ad, 2 PUFF IH BID PRN for SHORTNESS OF BREATH, (Reported) Entered as Reported by: DESMOND WATTS on 08/17/19 1136 Cholecalciferol (Vitamin D3) (Vitamin D3) 25 Mcg Tablet, 25 MCG PO DAILY, (Reported) Entered as Reported by: LUTHER FLEMING on 10/03/21 1143 Cyclobenzaprine HCl (Cyclobenzaprine HCl) 10 Mg Tablet, 10 MG PO Q8H PRN for SPASMS Prescribed by: OSCAR BURNS on 07/30/22 2304 Cyclobenzaprine HCl (Cyclobenzaprine HCl) 10 Mg Tablet, 10 MG PO Q8H PRN for SPASMS Prescribed by: BERTHA ROSS on 10/21/22 1335 Docusate Sodium (Docusate Sodium) 100 Mg Capsule, 100 MG PO DAILY PRN for CONSTIPATION-1ST LINE, (Reported) Entered as Reported by: DESMOND WATTS on 05/08/22 1540 Donepezil HCl (Donepezil HCl) 5 Mg Tablet, 5 MG PO HS, (Reported) Entered as Reported by: DESMOND WATTS on 05/08/22 1540 Ketorolac Tromethamine (Ketorolac Tromethamine) 10 Mg Tablet, 10 MG PO TID Prescribed by: MARGOTH RUBY MD on 07/07/22 1428 Lisinopril (Lisinopril) 40 Mg Tablet, 40 MG PO DAILY, (Reported) Entered as Reported by: DESMOND WATTS on 05/08/22 1540 Magnesium Oxide (Magnesium Oxide) 400 Mg Tablet, 400 MG PO BID Prescribed by: OSCAR BURNS on 07/30/22 2308 Meloxicam (Meloxicam) 15 Mg Tablet, 15 MG PO DAILY, (Reported) Entered as Reported by: DESMOND WATTS on 08/17/19 1126 Metformin HCl (Metformin HCl ER) 500 Mg Tab.er.24h, 500 MG PO DAILY, (Reported) Entered as Reported by: DESMOND WATTS on 08/17/19 1126 Omeprazole (Omeprazole) 20 Mg Capsule.dr, 20 MG PO DAILY, (Reported) Entered as Reported by: DESMOND WATTS on 08/17/19 1136 Oxycodone HCl/Acetaminophen (Percocet 5-325 mg Tablet) 1 Each Tablet, 1-2 TAB PO Q4H PRN for PAIN-BREAKTHROUGH Prescribed by: OSCAR BURNS on 07/30/22 230 Polyethylene Glycol 3350 (Gavilax) 17 Gram/Dose Powder, 17 GM PO Q48H, (Reported) Entered as Reported by: DESMOND WATTS on 05/08/22 154 Prednisone (Prednisone) 20 Mg Tab, 40 MG PO DAILY Prescribed by: OSCAR BURNS on 07/30/222303 Pregabalin (Pregabalin) 150 Mg Capsule, 150 MG PO TID, (Reported) Entered as Reported by: DESMOND WATTS on 05/08/22 154 Simvastatin (Simvastatin) 40 Mg Tablet, 40 MG PO HS, (Reported) Entered as Reported by: DESMOND WATTS on 05/08/22 154 Vilazodone Hydrochloride (Viibryd) 20 Mg Tablet, 20 MG PO DAILY, (Reported) Entered as Reported by: LUTHER FLEMING on 10/03/21 1143 Review of Systems Review of Systems Constitutional: no symptoms reported, see HPI EENTM: No Symptoms Reported, See HPI Respiratory: No Symptoms Reported, See HPI Cardiovascular: No Symptoms Reported, See HPI Gastrointestinal: See HPI, Abdominal Pain; Denies Constipated, Denies Diarrhea, Denies Nausea, Denies Poor Appetite, Denies Poor Fluid Intake, Denies Rectal Bleeding, Denies Vomiting Genitourinary: See HPI, Flank Pain; Denies Hematuria, Denies Pain, Denies Urgency Musculoskeletal: see HPI, back pain (BERTHA ROSS) All Other Systems Reviewed Negative Unless Noted: Yes (BERTHA ROSS) Past Mwqcagz-Zbcano-Nfwqws Hx Patient Social History Tobacco Use?: Yes Tobacco type used: Cigarettes Smoking Status: Current Everyday Smoker Use of E-Cig and/or Vaping dev: No Substance use?: No Alcohol Use?: No Pt feels they are or have been: No (BERTHA ROSS) Immunizations Up To Date Tetanus Booster (TDap): Unknown PED Vaccines UTD: Yes Influenza Vaccine Up-to-Date: No; Not Current First/Initial COVID19 Vaccinat: N/A Second COVID19 Vaccination Mariano: N/A Third COVID19 Vaccination Date: N/A (BERTHA ROSS) Seasonal Allergies Seasonal Allergies: No (BERTHA ROSS) Past Medical History Surgery/Hospitalization HX: [facility], hyst, tonsils, c sect, copd, dm, htn, depression, anxiety, polysubstance Surgeries: Yes (BACK SURGERY 2017; FOOT SURGERY) Gallbladder, Hysterectomy, Orthopedic, Tonsillectomy, Tubal Ligation Respiratory: Yes (07/2019--PNEUMONIA WITH SEPTIC SHOCK AND INTUBATED. COVID 06/2021--NO [place]. 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 Genitourinary: No Gastrointestinal: Yes (delayed emptying) Gastroesophageal Reflux, Diverticulosis, Gall Bladder Disease Musculoskeletal: Yes (foot surgery; BACK SURGERY) Degenerate Disk Disease, Fibromyalgia, Chronic Back Pain Endocrine: Yes (MORBID OBESITY) Diabetes, Non-Insulin dep HEENT: No Cancer: No Psychosocial: Yes (RX DRUG ABUSE/OVERDOSES) Anxiety, Depression Integumentary: No Blood Disorders: No (BERTHA ROSS) Family Medical History Reviewed Nursing Family Hx (BERTHA ROSS) Cancer, CAD Under 55 Years Old, Diabetes SOCIAL HISTORY: -SMOKES 1 PPD -ETOH--OCCASIONAL USE--HX OF ABUSE/HEAVY USE -DRUGS--EXTENSIVE RX DRUG ABUSE AND MULTIPLE OVERDOSES--JUJU OPIATES AND BENZODIAZEPINES PT ADMITTED 10/03/21 OBTUNDED AND HIGHLY SUSPECTED OVERDOSE OF ROBAXIN AT THAT TIME. PAST SURGICAL HISTORY: -LUMBAR SPINE SURGERY 2017 -FOOT SURGERY -BILATERAL TUBAL LIGATION -HYSTERECTOMY -TONSILLECTOMY -CHOLECYSTECTOMY (BERTHA ROSS) Physical Exam Vital Signs Vital Signs - First Documented 10/21/22 11:14 Temp 36.3 Pulse 80 Resp 20 B/P (MAP) 193/125 (147) Pulse Ox 98 O2 Delivery Room Air (OSCAR DING MD) Vital Signs Capillary Refill : Less Than 3 Seconds (BERTHA ROSS) Height/Weight/BMI Height: 5'8.00" Weight: 220lbs. oz. 99.280661ge; 30.00 BMI Method:Stated General Appearance: mild distress (secondary to pain, rolling around in bed, grabbing her right side. ), obese Neck: non-tender, full range of motion, supple, normal inspection Respiratory: chest non-tender, lungs clear, normal breath sounds Cardiovascular: normal peripheral pulses, regular rate, rhythm Gastrointestinal: normal bowel sounds, soft; No distended, No rebound; tenderness (right LQ and right flank) Back: normal inspection, no vertebral tenderness, CVA tenderness (R); No CVA t enderness (L) Neurologic/Psychiatric: no motor/sensory deficits, alert, normal mood/affect, oriented x 3 Skin: normal color, warm/dry (BERTHA ROSS) Procedures/Interventions Date of ETT Placement: Aug 16, 2019 Time of ETT Placement: 2299 (BERTHA ROSS) Progress/Results/Core Measures Results/Orders Lab Results Laboratory Tests Test 10/21/22 11:24 10/21/22 12:05 Range/Units White Blood Count 7.6 4.3-11.0 10^3/uL Red Blood Count 3.87 3.80-5.11 10^6/uL Hemoglobin 13.1 11.5-16.0 g/dL Hematocrit 37 35-52 % Mean Corpuscular Volume 96 80-99 fL Mean Corpuscular Hemoglobin 34 25-34 pg Mean Corpuscular Hemoglobin Concent 35 32-36 g/dL Red Cell Distribution Width 12.5 10.0-14.5 % Platelet Count 265 130-400 10^3/uL Mean Platelet Volume 9.6 9.0-12.2 fL Immature Granulocyte % (Auto) 0 % Neutrophils (%) (Auto) 72 42-75 % Lymphocytes (%) (Auto) 21 12-44 % Monocytes (%) (Auto) 5 0-12 % Eosinophils (%) (Auto) 1 0-10 % Basophils (%) (Auto) 0 0-10 % Neutrophils # (Auto) 5.5 1.8-7.8 10^3/uL Lymphocytes # (Auto) 1.6 1.0-4.0 10^3/uL Monocytes # (Auto) 0.4 0.0-1.0 10^3/uL Eosinophils # (Auto) 0.1 0.0-0.3 10^3/uL Basophils # (Auto) 0.0 0.0-0.1 10^3/uL Immature Granulocyte # (Auto) 0.0 0.0-0.1 10^3/uL Sodium Level 138 135-145 MMOL/L Potassium Level 4.4 3.6-5.0 MMOL/L Chloride Level 104 98-107 MMOL/L Carbon Dioxide Level 20 L 21-32 MMOL/L Anion Gap 14 5-14 MMOL/L Blood Urea Nitrogen 8 7-18 MG/DL Creatinine 0.67 0.60-1.30 MG/DL Estimat Glomerular Filtration Rate 100 BUN/Creatinine Ratio 12 Glucose Level 106 H 70-105 MG/DL Calcium Level 9.9 8.5-10.1 MG/DL Corrected Calcium 9.5 8.5-10.1 MG/DL Total Bilirubin 0.4 0.1-1.0 MG/DL Aspartate Amino Transf (AST/SGOT) 14 5-34 U/L Alanine Aminotransferase (ALT/SGPT) 9 0-55 U/L Alkaline Phosphatase 84 40-136 U/L C-Reactive Protein High Sensitivity 0.18 0.00-0.50 MG/DL Total Protein 7.5 6.4-8.2 GM/DL Albumin 4.5 3.2-4.5 GM/DL Urine Color YELLOW Urine Clarity CLEAR Urine pH 7.0 5-9 Urine Specific [place] 1.010 L 1.016-1.022 Urine Protein NEGATIVE NEGATIVE Urine Glucose (UA) NEGATIVE NEGATIVE Urine Ketones NEGATIVE NEGATIVE Urine Nitrite NEGATIVE NEGATIVE Urine Bilirubin NEGATIVE NEGATIVE Urine Urobilinogen 0.2 < = 1.0 MG/DL Urine Leukocyte Esterase NEGATIVE NEGATIVE Urine RBC (Auto) TRACE-I H NEGATIVE Urine RBC NONE /HPF Urine WBC NONE /HPF Urine Squamous Epithelial Cells RARE /HPF Urine Crystals NONE /LPF Urine Bacteria NEGATIVE /HPF Urine Casts NONE /LPF Urine Mucus NEGATIVE /LPF Urine Culture Indicated NO Urine Opiates Screen NEGATIVE NEGATIVE Urine Oxycodone Screen NEGATIVE NEGATIVE Urine Methadone Screen NEGATIVE NEGATIVE Urine Propoxyphene Screen NEGATIVE NEGATIVE Urine Barbiturates Screen NEGATIVE NEGATIVE Ur Tricyclic Antidepressants Screen NEGATIVE NEGATIVE Urine Phencyclidine Screen NEGATIVE NEGATIVE Urine Amphetamines Screen NEGATIVE NEGATIVE Urine Methamphetamines Screen NEGATIVE NEGATIVE Urine Benzodiazepines Screen NEGATIVE NEGATIVE Urine Cocaine Screen NEGATIVE NEGATIVE Urine Cannabinoids Screen POSITIVE H NEGATIVE (OSCAR DING MD) Vital Signs/I&O 10/21/22 10/21/22 10/21/22 11:14 11:35 14:02 Temp 36.3 36.3 36.3 Pulse 80 58 Resp 20 20 B/P (MAP) 193/125 (147) 130/61 Pulse Ox 98 98 O2 Delivery Room Air Room Air (OSCAR DING MD) Blood Pressure Mean: 147 Progress Progress Note : Time: 11:14 Progress Note patient assessed, will obtain labs, NS 1 L for hydration, Fentanyl [address] abd/pelvis to determine if kidney stone or GI etiology. Last CT abd/pelvis May 2022, no abnormalities. Risk/Benefits of CT discussed and patient agreeable. 1200 patient improved after Fentanyl. Labs normal. awaiting CT. 1230 CT with no acute findings. Results reviewed with patient, pain has returned. Will give Norflex. Discussed that pain may be coming from her chronic back pain. Patient concerned as she went to 4 EDs in the last few months. 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 1320 pain improved after Norflex. Patient agreeable to try adding Flexeril to her other medications. Discharge instructions and return precautions reviewed with her. Stressed the importance that she see her PCP or establish with a new one. (BERTHA ROSS) Diagnostic Imaging Diagonstic Imaging: CT Plain Films/CT/US/NM/MRI: abdomen, pelvis Comments NAME: ENRIQUE GARCIA [facility] REC#: [id number] PT STATUS: REG ER : 1960 PHYSICIAN: BERTHA ROSS ADMIT DATE: 10/21/22/ER Signed Date of Exam:10/21/22 CT ABD/PELVIS WO(KIDNEY STONE) EXAMINATION: CT abdomen and pelvis without contrast. TECHNIQUE: Multiple contiguous axial images were obtained through the abdomen and pelvis without the use of intravenous contrast. All CT scans use one or more of the following dose optimizing techniques: automated exposure control, MA and/or KvP adjustment based on patient size and exam type or iterative reconstruction. HISTORY: Flank pain, kidney stone suspected. COMPARISON: 06/18/2022. FINDINGS: Lung bases: The lung bases are clear. Solid organs: The liver is normal. The gallbladder is surgically absent. There is no biliary ductal dilation. Pancreas is normal. Spleen is normal. Adrenal glands are normal. The kidneys are normal without visualized calculus or hydronephrosis. Bowel: The stomach and small bowel are normal without obstruction. There is scattered colonic diverticulosis. The appendix is normal. Peritoneum: There is no intraperitoneal free fluid or free air. No suspicious lymphadenopathy. Vasculature: Calcification of the aorta without aneurysm. Musculoskeletal: Surgical and degenerative changes of the spine without suspicious osseous lesion or compression fracture. Pelvis: The uterus is surgically absent. No adnexal mass. The urinary bladder is normal. IMPRESSION: 1. No visualized renal calculus or hydronephrosis. 2. No other acute abnormality in the abdomen or pelvis. Dictated by: Dictated on workstation # [id number] Dict: 10/21/22 1215 Trans: 10/21/22 1225 [id number] Interpreted by: MIGUELINA STERN DO Electronically signed by: MIGUELINA STERN DO 10/21/22 1225 Reviewed: Reviewed by Me (BERTHA ROSS) Departure Impression Primary Impression: Abdominal pain Qualified Codes: R10.31 - Right lower quadrant pain Additional Impressions: Flank pain Chronic back pain Qualified Codes: M54.50 - Low back pain, unspecified; G89.29 - Other chronic pain Disposition: 01 HOME, SELF-CARE Condition: Improved Departure-Patient Inst. Decision time for Depature: 12:50 (BERTHA ROSS) Referrals: DESMOND GOLDBERG DO (PCP/Family) Primary Care Physician Patient Instructions: Back Muscle Strain (DC), Low Back Pain (DC) Add. Discharge Instructions: Take medications as prescribed. Alternate heat and ice to your low back. Take muscle relaxant as needed. Establish care with a primary care provider who can refer you to a pain specialist or orthopedic surgeon for your spine. Return to the emergency department for new, urgent healthcare needs. All discharge instructions reviewed with patient and/or family. Voiced understanding. Scripts Cyclobenzaprine HCl (Cyclobenzaprine HCl) 10 Mg Tablet 10 MG PO Q8H PRN for SPASMS, #30 TAB 0 Refills Prov: BERTHA ROSS 10/21/22 ATTENDING PHYSICIAN NOTE: I was physically present as attending physician in the emergency department during the care of this patient, but I was not directly involved in the decision making or delivery of care for this patient. (OSCAR DING MD) Copy Copies To 1: DESMOND GOLDBERG AMY ARNP Oct 21, 2022 11:38 OSCAR DING MD Oct 21, 2022 18:30
[2022-10-21 11:45] LABS: ALBUMIN 4.5 GM/DL (3.2-4.5); POTASSIUM 4.4 MMOL/L (3.6-5.0)
[2022-10-21 11:46] LABS: CALCIUM 9.9 MG/DL (8.5-10.1)
[2022-10-21 11:47] LABS: TOTAL PROTEIN 7.5 GM/DL (6.4-8.2)
[2022-10-21 11:49] LABS: BILIRUBIN,TOTAL 0.4 MG/DL (0.1-1.0)
[2022-10-21 11:51] LABS: CREATININE SERUM 0.67 MG/DL (0.60-1.30)
[2022-10-21 12:12] LABS: BILIRUBIN,URINE NEGATIVE (NEGATIVE); CLARITY,URINE CLEAR; COLOR,URINE YELLOW; GLUCOSE, URINE (UA) NEGATIVE (NEGATIVE); KETONES,URINE NEGATIVE (NEGATIVE); LEUKOCYTE ESTERASE ,URINE NEGATIVE (NEGATIVE); NITRITE,URINE NEGATIVE (NEGATIVE); PROTEIN,URINE NEGATIVE (NEGATIVE)
--- NOTE | 2022-10-21 12:21 | Diagnostic Imaging Report ---
EXAMINATION: CT abdomen and pelvis without contrast. TECHNIQUE: Multiple contiguous axial images were obtained through the abdomen and pelvis without the use of intravenous contrast. All CT scans use one or more of the following dose optimizing techniques: automated exposure control, MA and/or KvP adjustment based on patient size and exam type or iterative reconstruction. HISTORY: Flank pain, kidney stone suspected. COMPARISON: 06/18/2022. FINDINGS: Lung bases: The lung bases are clear. Solid organs: The liver is normal. The gallbladder is surgically absent. There is no biliary ductal dilation. Pancreas is normal. Spleen is normal. Adrenal glands are normal. The kidneys are normal without visualized calculus or hydronephrosis. Bowel: The stomach and small bowel are normal without obstruction. There is scattered colonic diverticulosis. The appendix is normal. Peritoneum: There is no intraperitoneal free fluid or free air. No suspicious lymphadenopathy. Vasculature: Calcification of the aorta without aneurysm. Musculoskeletal: Surgical and degenerative changes of the spine without suspicious osseous lesion or compression fracture. Pelvis: The uterus is surgically absent. No adnexal mass. The urinary bladder is normal. IMPRESSION: 1. No visualized renal calculus or hydronephrosis. 2. No other acute abnormality in the abdomen or pelvis. Dictated by: Dictated on workstation # [id number]
[2022-10-21 12:22] LABS: BACTERIA,URINE NEGATIVE /HPF; SQUAMOUS EPITHELIAL CELL,UR RARE /HPF
[2022-10-21 12:32] LABS: AMPHETAMINE SCREEN, URINE NEGATIVE (NEGATIVE); BARBITURATE SCREEN URINE NEGATIVE (NEGATIVE); BENZODIAZEPINES SCREEN URINE NEGATIVE (NEGATIVE); CANNABINOID SCREEN, URINE POSITIVE (NEGATIVE); COCAINE SCREEN URINE NEGATIVE (NEGATIVE); METHADONE STAT NEGATIVE (NEGATIVE); OPIATE SCREEN URINE NEGATIVE (NEGATIVE); OXYCODONE STAT NEGATIVE (NEGATIVE); PROPOXYPHENE STAT NEGATIVE (NEGATIVE); TRICYCLIC ANTIDEPRESSANTS SCRE NEGATIVE (NEGATIVE)
[2022-10-21] MEDS ORDERED: ORPHENADRINE 60 MG/2 ML (NORFLEX) AMP (ED ONLY) IM STA (12:48)
[2022-10-21] MEDS ORDERED: CYCL10TA25 PO (13:35)
[2022-10-21 14:02] VITALS: BP 130/61
== END 2022-10-21 14:02 | disposition home or self-care (01) ==
LOC: EDUNIT# 11:12 → ER 11:14
DX: R10.31 Right lower quadrant pain (principal); M54.9 Dorsalgia, unspecified; G89.29 Other chronic pain; E66.01 Morbid (severe) obesity due to excess calories; F17.210 Nicotine dependence, cigarettes, uncomplicated; Z68.30 Body mass index [BMI] 30.0-30.9, adult; Z90.49 Acquired absence of other specified parts of digestive tract; Z90.710 Acquired absence of both cervix and uterus; Z28.310 Unvaccinated for COVID-19
CPT/HCPCS: 36415; 74176; 80053; 80306; 81000; 85025; 86141

== ENCOUNTER → 2022-11-02 | Outpatient (CLI) | payer MEDICARE, MEDICAID | LOC: CARD 09:56 | PROVIDERS: ATTEND Internal Medicine Cardiovascular Disease | DX: I10 Essential (primary) hypertension (principal); I25.10 Atherosclerotic heart disease of native coronary artery without angina pectoris | CPT/HCPCS: 93306 ==

== ENCOUNTER → 2022-11-13 | Outpatient (CLI) | payer MEDICARE, MEDICAID ==
--- NOTE | 2022-11-13 17:27 | Diagnostic Imaging Report ---
INDICATION: History of atraumatic fracture. COMPARISON: None FINDINGS: AP Spine L1-L4: [BMD (g/cm2): NA] [T-Score: NA] [Z-Score: NA] [BMD Previous: NA] [BMD % Change: NA] LT Hip Neck: [BMD (g/cm2): 0.773] [T-Score: -1.9] [Z-Score: -1.2] LT Hip Total: [BMD (g/cm2):0.862] [T-Score:-1.2] [Z-Score: -0.8] [BMD Previous: NA] [BMD % Change: NA] RT Hip Neck: [BMD (g/cm2):0.735] [T-Score:-2.2] [Z-Score:-1.5] RT Hip Total: [BMD (g/cm2):0.836] [T-score:-1.4] [Z-Score:-1.0] [BMD Previous:NA] [BMD % Change:NA] *Indicates significant change from prior examination based on 95% confidence level. World Health Organization criteria for BMD interpretation classify patients as Normal (T-score at or above -1.0), Osteopenic (T-score between -1.0 and -2.5) or Osteoporotic (T-score at or below -2.5). LIMITATIONS AND MODIFICATION: None. FRACTURE RISK (FRAX SCORE): The ten year probability of (%): Major Osteoporotic Fracture: [17.1] Hip Fracture: [2.7] IMPRESSION: 1. Osteopenia (Low bone mass). 2. Baseline examination. 3. See below National Osteoporosis Foundation guidelines on when to potentially initiate pharmacologic therapy. Based on the National Osteoporosis Foundation Guidelines, pharmacologic treatment should be initiated in any of the following, unless clinical conditions suggest otherwise: * Any patient with prior fragility fracture of the hip or vertebrae. A spine fracture indicates 5X risk for subsequent spine fracture and 2X risk for subsequent hip fracture. * Osteoporosis (T-score <-2.5). * Postmenopausal women and men age 50 and older with low bone mass/osteopenia (T-score between -1.0 and -2.5) by DXA and 10-year major osteoporotic fracture greater than 20% or a 10-year probability of hip fracture greater than 3%. These fracture risks are supplied above in the FRAX score, if applicable. * Clinician judgement and/or patient preferences may indicate treatment for people with 10-year fracture probabilities above or below these levels. Dictated by: Dictated on workstation # [id number]
== END ==
LOC: RAD 10:49
PROVIDERS: ATTEND Orthopaedic Surgery Orthopaedic Surgery of the Spine
DX: M85.89 Other specified disorders of bone density and structure, multiple sites (principal); M48.062 Spinal stenosis, lumbar region with neurogenic claudication; M54.16 Radiculopathy, lumbar region; F17.201 Nicotine dependence, unspecified, in remission; Z98.1 Arthrodesis status
CPT/HCPCS: 77080

== ENCOUNTER → 2023-01-21 | Outpatient (RCR) | payer MEDICARE, MEDICAID | END | disposition still patient (30) | PROVIDERS: ATTEND Nurse Practitioner | DX: M79.641 Pain in right hand (principal); M79.642 Pain in left hand ==

== ENCOUNTER 2023-02-14 11:40 | Outpatient (RCR) | payer MEDICARE, MEDICAID | END 2023-02-21 | disposition home or self-care (01) | PROVIDERS: ATTEND Nurse Practitioner | DX: M79.642 Pain in left hand (principal); M79.641 Pain in right hand ==